=== PATIENT | female | born 1940 | race Caucasian/White ===

== ENCOUNTER 2023-09-04 11:08 | Inpatient (IN) | payer MEDICARE, SELFPAY ==
[2023-09-04] VITALS (41 sets, daily range): BP systolic 112–144; BP diastolic 40–71; PULSE 37–74; RESP 9–31; TEMP 36.6–36.7; O2SAT 82–98; BMI 29.5; BMI 24.9
--- NOTE | 2023-09-04 11:24 | ECG_ITS ---
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
--- NOTE | 2023-09-04 11:26 | XR_ITS ---
The [address] [address] Patient Name: MERRILL ARAGON MRN: [id number] date: 1940 Sex: F Assigned Patient Location: ER Current Patient Location: ER Accession/Order Number: [id number] Exam Date: 09/04/2023 11:51 Report Date: 09/04/2023 12:05 At the request of: SCHUYLER LOWERY Procedure: XR chest 1V EXAMINATION: XR chest 1V HISTORY: CHEST CONGESTION COMPARISON: 08/28/2022 TECHNIQUE: AP portable FINDINGS: LUNGS: No significant pulmonary parenchymal abnormalities. VASCULATURE: No increased pulmonary vasculature. PLEURA: No pneumothorax, effusion, or pleural thickening. Elevation of the right hemidiaphragm CARDIAC: Moderate cardiomegaly MEDIASTINUM: No visible mass or adenopathy. BONES: No fracture or visible bone lesion. OTHER: Negative. XR/XR chest 1V IMPRESSION: Clear lungs Cardiomegaly Elevated right hemidiaphragm Electronically authenticated by: CARMEN LOTT Date: 09/04/2023 12:05
[2023-09-04 12:18] LABS: Basophils Absolute Auto 0.1 10^3/uL (0.0-0.1); Basophils Percent Auto 0.4 % (0.2-2.0); Eosinophils Percent Auto 0.1 % (0.9-7.0); Hematocrit 41.9 % (36.0-48.0); Immature Granulocytes Abs Auto 0.05 10^3/uL (0.00-0.03); Immature Granulocytes Pct Auto 0.3 % (0.0-0.5); Lymphocytes Absolute Auto 2.4 10^3/uL (1.2-3.8); Lymphocytes Percent Auto 16.1 % (20.5-60.0); Mean Corpuscular Hemoglobin 26.6 pg (26.7-34.0); Mean Corpuscular Volume 85.9 fL (81.0-99.0); Mean Platelet Volume 10.3 fL (9.5-13.5); Monocytes Absolute Auto 0.9 10^3/uL (0.3-0.8); Monocytes Percent Auto 5.9 % (1.7-12.0); Neutrophils Absolute Auto 11.3 10^3/uL (1.4-6.5); Neutrophils Percent Auto 77.2 % (43.0-75.0); Platelet Count 128 10^3/uL (150-450); Red Blood Count 4.88 10^6/uL (4.20-5.40); Red Cell Distribution Width 14.7 % (11.0-15.0); White Blood Count 14.7 10^3/uL (4.0-11.0)
--- NOTE | 2023-09-04 12:20 | ECG_ITS ---
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
[2023-09-04] MEDS: 0.9 % SODIUM CHLORIDE 1,000 ML 999 ML IV (12:26)
[2023-09-04 12:32] LABS: Influenza Virus A Antigen Negative; Influenza Virus B Antigen Negative; Internal Control Within Normal Limits; SARS-CoV-2 Ag NEGATIVE (NEGATIVE)
[2023-09-04 12:42] LABS: Alanine Aminotransferase 68 U/L (14-59); Albumin Globulin Ratio 0.7; Alkaline Phosphatase 99 U/L (46-116); Anion Gap 16.7; Aspartate Amino Transferase 29 U/L (15-37); BUN Creatinine Ratio 24.5; Calcium 9.4 mg/dL (8.5-10.1); Carbon Dioxide 14.7 mmol/L (21.0-32.0); Chloride 98 mmol/L (98-107); Estimated GFR (African America 39 (>=60); Estimated GFR (Non-African Ame 32 (>=60); Globulin 4.1 g/dL; Glucose 299 mg/dL (74-106); Potassium 4.4 mmol/L (3.5-5.1); Sodium 125 mmol/L (136-145); Total Protein 7.1 g/dL (6.4-8.2)
[2023-09-04 12:44] LABS: Creatine Kinase 99 U/L (26-192); Troponin I High Sensitivity 22.6 pg/mL (4.0-51.3)
--- NOTE | 2023-09-04 14:08 | ED_ITS ---
HPI - General Adult General Chief complaint: Dizziness Stated complaint: DIZZINESS Time Seen by Provider: 09/04/23 11:33 Source: patient Mode of arrival: Wheelchair Limitations: no limitations History of Present Illness HPI narrative: Patient is a 83-year-old female who is presenting to the Emergency Room today with chief complaint of cough, lightheaded, dizziness, no vertigo. Patient has no chest pain, she has had coughing spells and has some mild shortness of breath. Patient does have a history of 3 cardiac stents, she was on Plavix in the past and she currently is not. Patient's flavor room worker is in [facility]. Patient's PCP is Dr. Butler. Patient had an episode this morning where she was disoriented, confused. Patient was not sure nothing get herself off of the couch to go to the restroom and she urinated herself. Patient was stumbling into the chase as well having some mild difficulty with gait, that has normalized. Patient says she feels much better now than she did last night. Patient was having coughing spells last evening and did not feel well. Over the past weekend she was around people that could have had COVID. Patient daughter at bedside. Patient is not having any abdominal pain, nausea vomiting. No significant bowel or bladder changes. . All systems are negative except as noted/marked. All systems reviewed and otherwise negative. . Nurses note and vital signs reviewed and patient is not hypoxic. General: The patient appears well and in no apparent distress. Patient is resting comfortably on cart. Patient is not toxic, lethargic, or listless Skin: Warm, dry, no pallor noted. There is no rash noted. No petechiae, purpura. Head: Normocephalic, atraumatic; No carotid bruits bilateral. Eye: Normal conjunctiva, no drainage, EOMI. PERRL Ears, Nose, Mouth, and Throat: oral mucosa is Slightly dry. Nares patent. Mouth without vesicles. Cardiovascular: Slow bradycardic Regular Rate and Rhythm, no murmur, gallop, rub Respiratory: Patient is in no distress, no accessory muscle use, lungs are clear to auscultation, no wheezing, rales or rhonchi Back: non-tender, no CVA tenderness bilaterally to percussion. No CT LS midline pain GI: soft, no tenderness to palpation, no masses appreciated. No rebound, guarding, or rigidity noted. No flank pain bilateral, No distention Musculoskeletal: Patient has full range of motion of all of the extremities, no motor, sensory, or focal neurological deficits Neurological: A&O x3, normal speech, NIH 0 Psychiatric: Cooperative Related Data Home Medications Medication Instructions Recorded Confirmed atorvastatin 80 mg tablet 80 mg PO DAILY 09/04/23 09/04/23 carvedilol 12.5 mg tablet 12.5 mg PO Q12H 09/04/23 09/04/23 cyproheptadine 4 mg tablet 2 mg PO .qhs 09/04/23 09/04/23 dapagliflozin propanediol 10 mg 10 mg PO DAILY 09/04/23 09/04/23 tablet (Farxiga) insulin glargine 100 unit/mL (3 10 unit subcut QPM 09/04/23 09/04/23 mL) subcutaneous pen (Lantus Solostar U-100 Insulin) insulin glargine 100 unit/mL 15 unit subcut QAM 09/04/23 09/04/23 subcutaneous solution (Lantus U-100 Insulin) Allergies Allergy/AdvReac Type Severity Reaction Status Date / Time iodine AdvReac Intermediate Verified 09/04/23 11:19 Sulfa (Sulfonamide AdvReac Intermediate Verified 09/04/23 11:19 Antibiotics) [facility] Medical History (Updated 09/04/23 @ 20:14 by Aubrey Nunez MD) Diabetes ?E11.9 - Type 2 diabetes mellitus without complications (ICD-10) Heart attack ?I21.9 - Acute myocardial infarction, unspecified (ICD-10) Uterine cancer ?C55 - Malignant neoplasm of uterus, part unspecified (ICD-10) Surgical History (Updated 09/04/23 @ 16:07 by Gena Islas) History of heart artery stent ?Z95.5 - Presence of coronary angioplasty implant and graft (ICD-10) Social History Smoking status: Never smoker Highest level of school completed/degree received: 11th grade Exam Constitutional Vital Signs, click to edit/add: Last Vital Signs Temp 98.0 F 09/04/23 16:04 Pulse 41 L 09/04/23 20:00 Resp 20 09/04/23 16:04 BP 141/68 09/04/23 16:04 Pulse Ox 94 L 09/04/23 16:04 O2 Del Method Nasal Cannula 09/04/23 16:04 O2 Flow Rate 2 09/04/23 16:04 Course Vital Signs Vital signs: Vital Signs Temperature 97.9 F 09/04/23 11:13 Pulse Rate 74 09/04/23 11:13 Respiratory Rate 18 09/04/23 11:13 Blood Pressure 118/70 09/04/23 11:13 Oxygen Delivery Method Room Air 09/04/23 11:13 Temperature 98.0 F 09/04/23 16:04 Pulse Rate 41 L 09/04/23 20:00 Respiratory Rate 20 09/04/23 16:04 Blood Pressure 141/68 09/04/23 16:04 Pulse Oximetry 94 L 09/04/23 16:04 Oxygen Delivery Method Nasal Cannula 09/04/23 16:04 Oxygen Delivery Flow Rate 2 09/04/23 16:04 Medical Decision Making MDM Narrative Medical decision making narrative: Patient told nursing staff that when she was going to get the mail in the past week she would intermittently become lightheaded, dizzy, sometimes short of breath and need to stop or catch herself before contiinue with activity. Patient may have been bradycardic intermittently for the past month, difficult to say. 1444 I spoke to the flavor room worker on-call for [facility], Dr. Davis. He agrees the patient can stay at [facility], corrective fluids and low sodium levels; And if patient remains relatively asymptomatic they can follow up with patient next week for discussion of pacemaker if needed. Patient wanted to stay at [facility] if possible. Patient has been to [facility] once and saw cardiology group once in [facility], she does not recall the name. Patient's flavor room worker is part of the [facility]. Patient's PCP is Dr. Butler. Has spoken to Dr. Harp, he agrees with admission to [facility] telemetry. We have given patient 2 L of IV fluid out replace sodium. Patient will remain on maintenance fluids. Patient sodium is 125. Patient CO2 is 14, patient BUN and CR are slightly elevated as well. 1520 Patient was having chest tightness, a 2nd EKG was done that showed no significant findings when compared to the 1st EKG. Patient has been given 2 L of IV fluid on maintenance fluids. Patient's heart rate has improved into the 40s and low 50s. Despite having low heart rate, patient is not significantly symptomatic in the Emergency Room with bradycardia. Patient is stable to be admitted to [facility]. Patient, son and daughter at bedside are aware of this and agree. Patient is aware that she may need a pacemaker in the future if bradycardia continues and she does have intermittent symptoms at home. Critical care time 45 minutes exclusive from separate billable procedures that were performed. The following was considered in the determination of critical care but not limited to the level of medical decision making, intensive cardiac and/or respiratory monitoring, frequent vital sign monitoring, evaluation of laboratory studies, evaluation of radiographic studies, oxygen monitoring, and constant monitoring and speaking to family at bedside Lab Data Lab results reviewed: Yes I reviewed the patient's lab results Labs: Lab Results 09/04/23 09/04/23 09/04/23 Range/Units 11:29 11:29 12:12 WBC 14.7 H (4.0-11.0) 10^3/uL RBC 4.88 (4.20-5.40) 10^6/uL Hgb 13.0 (12.0-16.0) g/dL Hct 41.9 (36.0-48.0) % MCV 85.9 (81.0-99.0) fL MCH 26.6 L (26.7-34.0) pg MCHC 31.0 (29.9-35.2) g/dL RDW 14.7 (11.0-15.0) % Plt Count 128 L (150-450) 10^3/uL MPV 10.3 (9.5-13.5) fL Neut % (Auto) 77.2 H (43.0-75.0) % Lymph % (Auto) 16.1 L (20.5-60.0) % [place] % (Auto) 5.9 (1.7-12.0) % Eos % (Auto) 0.1 L (0.9-7.0) % Baso % (Auto) 0.4 (0.2-2.0) % Neut # (Auto) 11.3 H (1.4-6.5) 10^3/uL Lymph # (Auto) 2.4 (1.2-3.8) 10^3/uL [place] # (Auto) 0.9 H (0.3-0.8) 10^3/uL Eos # (Auto) 0.0 (0.0-0.7) 10^3/uL Baso # (Auto) 0.1 (0.0-0.1) 10^3/uL Abs Immat Gran (auto) 0.05 H (0.00-0.03) 10^3/uL Imm/Tot Granulo (auto) 0.3 (0.0-0.5) % Sodium 125 L (136-145) mmol/L Potassium 4.4 (3.5-5.1) mmol/L Chloride 98 (98-107) mmol/L Carbon Dioxide 14.7 L (21.0-32.0) mmol/L Anion Gap 16.7 BUN 38.0 H (7.0-18.0) mg/dL Creatinine 1.55 H (0.55-1.02) mg/dL Est GFR ( Amer) 39 L (>=60) Est GFR (Non-Af Amer) 32 L (>=60) BUN/Creatinine Ratio 24.5 Glucose 299 H (74-106) mg/dL Calcium 9.4 (8.5-10.1) mg/dL Total Bilirubin 1.0 (0.2-1.0) mg/dL AST 29 (15-37) U/L ALT 68 H (14-59) U/L Alkaline Phosphatase 99 (46-116) U/L Total Creatine Kinase 99 (26-192) U/L Troponin I High Sens 22.6 (4.0-51.3) pg/mL Total Protein 7.1 (6.4-8.2) g/dL Albumin 3.0 L (3.4-5.0) g/dL Globulin 4.1 g/dL Albumin/Globulin Ratio 0.7 Adenovirus (PCR) Not detected (NOT DETECTE) C. pneumoniae DNA (PCR) Not detected (NOT DETECTE) Coronavirus Type OC43 Not detected (NOT DETECTE) Coronavirus Type HKU1 Not detected (NOT DETECTE) Coronavirus Type 229E Not detected (NOT DETECTE) SARS-CoV-2 (PCR) Negative Not detected (NEGATIVE) Coronavirus Type NL63 Not detected (NOT DETECTE) Human Metapneumovir PCR Not detected (NOT DETECTE) Influenza Type A Ag Negative Influenza Type B Ag Negative M. pneumoniae (PCR) Not detected (NOT DETECTE) Parainfluenza PCR Not detected (NOT DETECTE) Parainfluenza 2 (PCR) Not detected (NOT DETECTE) Parainfluenza 3 (PCR) Not detected (NOT DETECTE) Parainfluenza 4 (PCR) Not detected (NOT DETECTE) RSV (RT-PCR) Detected A* (NOT DETECTE) Entero/Rhino (PCR) Not detected (NOT DETECTE) Bordetella pertussis (PCR) Not detected (NOT DETECTE) B parapertussis DNA PCR Not detected (NOT DETECTE) Influenza Type A (PCR) Not detected (NOT DETECTE) Influenza Type B (PCR) Not detected (NOT DETECTE) ECG Data Attestation: I personally reviewed and interpreted this ECG as follows: (EKG interpretation. Sinus bradycardia at 37 beats a minute. Normal axis deviation. T wave inversion ddiffusely.) Interpretation: EKG #1. Sinus bradycardia of 37 beats a minute. T-wave inversion noted in the inferior leads, also on the lateral leads as well. QTC of 371. VA interval of 270, first-degree AV block. EKG reading right bundle-branch block as well.. EKG #2. Sinus bradycardia of 42 beats a minute. Patient remains sinus bradycardia. T-wave inversion in V2, V3, V4. No T-wave inversion in V5, V6 which was present on the 1st EKG. VA interval of 264, first-degree AV block. Right bundle-branch block noted. No acute ST elevation. Discharge Plan Discharge Chief Complaint: Dizziness Clinical Impression: URI (upper respiratory infection), Bradycardia, Hyponatremia, Metabolic acidosis, Dehydration Patient Disposition: Admitted As Inpatient Condition: Serious Discharge Date/Time: 09/04/23 15:50
[2023-09-04] MEDS: 0.9 % SODIUM CHLORIDE 1,000 ML 1000 ML IV (14:30)
--- NOTE | 2023-09-04 15:28 | ECG_ITS ---
The [facility] Test Date: 2023-09-04 Pat Name: MERRILL ARAGON Department: Room: 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
[2023-09-04 16:48] LABS: Glucometer 262 mg/dL (74-106)
[2023-09-04] MEDS: 0.9 % SODIUM CHLORIDE 1,000 ML 100 ML IV (16:55)
[2023-09-04] MEDS: INSULIN ASPART 300 UNIT/3 ML PEN SUBQ ×2 (17:44→22:43)
[2023-09-04 17:51] LABS: Adenovirus NOT DETECTED (NOT DETECTE); Bordetella parapertussis NOT DETECTED (NOT DETECTE); Coronavirus 229E NOT DETECTED (NOT DETECTE); Coronavirus HKU1 NOT DETECTED (NOT DETECTE); Coronavirus NL63 NOT DETECTED (NOT DETECTE); Coronavirus OC43 NOT DETECTED (NOT DETECTE); Human Metapneumovirus NOT DETECTED (NOT DETECTE); Human Rhinovirus/Enterovirus NOT DETECTED (NOT DETECTE); Influenza A NOT DETECTED (NOT DETECTE); Influenza B NOT DETECTED (NOT DETECTE); Mycoplasma pneumoniae NOT DETECTED (NOT DETECTE); Parainfluenza Virus 1 NOT DETECTED (NOT DETECTE); Parainfluenza Virus 2 NOT DETECTED (NOT DETECTE); Parainfluenza Virus 3 NOT DETECTED (NOT DETECTE); Parainfluenza Virus 4 NOT DETECTED (NOT DETECTE); SARS-CoV-2 NOT DETECTED (NOT DETECTE)
[2023-09-04 18:40] LABS: Respiratory Syncytial Virus DETECTED (NOT DETECTE)
[2023-09-04 20:03] LABS: Bilirubin Urine NEGATIVE (NEGATIVE); Blood Urine NEGATIVE (NEGATIVE); Clarity Urine CLEAR (CLEAR); Color Urine YELLOW (YELLOW); Glucose Urine UA >=1000 mg/dL (NEGATIVE); Ketones Urine TRACE mg/dL (NEGATIVE); Leukocyte Esterase Urine NEGATIVE (NEGATIVE); Nitrite Urine NEGATIVE (NEGATIVE); Protein Urine NEGATIVE (NEG/TRACE); Urobilinogen Urine 0.2 EU/dL (0.2-1.0); pH Urine 5.5 (5.0-9.0)
[2023-09-04 20:05] LABS: Urine Microscopic Indicated NO
[2023-09-04 20:39] LABS: Glucometer 209 mg/dL (74-106)
[2023-09-04] MEDS: CYPROHEPTADINE HCL 4 MG TABLET 2 MG PO (22:42)
[2023-09-04] MEDS: INSULIN DETEMIR 300 UNIT/3 ML INSULN.PEN 10 UNIT SUBQ (22:42)
[2023-09-05] VITALS (73 sets, daily range): BP systolic 109–171; BP diastolic 57–112; PULSE 39–89; RESP 0–27; TEMP 36.4–36.8; O2SAT 92–100
[2023-09-05] MEDS: 0.9 % SODIUM CHLORIDE 1,000 ML 100 ML IV ×2 (06:38→15:01)
[2023-09-05 07:41] LABS: Glucometer 128 mg/dL (74-106)
[2023-09-05 07:50] LABS: Anion Gap 14.5; BUN Creatinine Ratio 28.5; Calcium 9.1 mg/dL (8.5-10.1); Carbon Dioxide 18.5 mmol/L (21.0-32.0); Chloride 107 mmol/L (98-107); Estimated GFR (African America 50 (>=60); Estimated GFR (Non-African Ame 42 (>=60); Glucose 147 mg/dL (74-106); Sodium 136 mmol/L (136-145)
[2023-09-05] MEDS: CANAGLIFLOZIN 100 MG TABLET 300 MG PO (08:25)
[2023-09-05] MEDS: ATORVASTATIN CALCIUM 40 MG TABLET 80 MG PO (08:26)
[2023-09-05] MEDS: INSULIN DETEMIR 300 UNIT/3 ML INSULN.PEN 15 UNIT SUBQ (08:26)
[2023-09-05] MEDS: ACETAMINOPHEN 500 MG TABLET 1000 MG PO (08:26)
[2023-09-05 08:41] LABS: Basophils Percent Auto 0.5 % (0.2-2.0); Eosinophils Absolute Auto 0.1 10^3/uL (0.0-0.7); Eosinophils Percent Auto 1.1 % (0.9-7.0); Hematocrit 37.3 % (36.0-48.0); Hemoglobin 11.3 g/dL (12.0-16.0); Immature Granulocytes Abs Auto 0.02 10^3/uL (0.00-0.03); Immature Granulocytes Pct Auto 0.2 % (0.0-0.5); Lymphocytes Absolute Auto 2.1 10^3/uL (1.2-3.8); Lymphocytes Percent Auto 25.7 % (20.5-60.0); Mean Corpuscular HGB Conc 30.3 g/dL (29.9-35.2); Mean Corpuscular Hemoglobin 26.6 pg (26.7-34.0); Mean Corpuscular Volume 87.8 fL (81.0-99.0); Mean Platelet Volume 10.4 fL (9.5-13.5); Monocytes Absolute Auto 0.7 10^3/uL (0.3-0.8); Neutrophils Absolute Auto 5.4 10^3/uL (1.4-6.5); Neutrophils Percent Auto 64.5 % (43.0-75.0); Platelet Count 77 10^3/uL (150-450); Red Blood Count 4.25 10^6/uL (4.20-5.40); Red Cell Distribution Width 15.1 % (11.0-15.0); White Blood Count 8.3 10^3/uL (4.0-11.0)
--- NOTE | 2023-09-05 09:48 | ECG_ITS ---
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1940 Requested By: MARIAM KIRBY Order Number: [id number] Reading MD: MIKALA STAHL Measurements Intervals [place] Rate: 39 P: TN: QRS: 98 QRSD: 141 T: -67 QT: 467 QTc: 376 Interpretive Statements SINUS BRADYCARDIA WITH 2ND DEGREE AV BLOCK, MOBITZ TYPE II RIGHT BUNDLE BRANCH BLOCK [120+ ms QRS DURATION, UPRIGHT V1, 40+ ms S IN I/aVL/V4/V5/V6] ANTEROSEPTAL MYOCARDIAL INFARCTION [40+ ms Q WAVE IN V1-V4], OF INDETERMINATE AGE MODERATE T-WAVE ABNORMALITY, CONSIDER LATERAL ISCHEMIA [-0.1+ mV T WAVE IN I/aVL/V5/V6] Compared to ECG 09/04/2023 15:29:14 Electronically Signed On 09-06-2023 6:51:27 EST by MIKALA STAHL
--- NOTE | 2023-09-05 09:48 | P.PN_ITS ---
Exam Constitutional Vital Signs, click to edit/add: Last Vital Signs Temp 98.1 F 09/05/23 05:36 Pulse 65 09/05/23 06:00 Resp 20 09/05/23 05:36 BP 109/62 09/05/23 05:36 Pulse Ox 95 09/05/23 05:36 O2 Del Method Nasal Cannula 09/05/23 05:36 O2 Flow Rate 3 09/05/23 05:36 Progress Note: Objective Labs Labs: Short CBC 09/04/23 09/05/23 Range/Units 12:12 06:30 WBC 14.7 H 8.3 (4.0-11.0) 10^3/uL Hgb 13.0 11.3 L (12.0-16.0) g/dL Hct 41.9 37.3 (36.0-48.0) % Plt Count 128 L 77 L (150-450) 10^3/uL BMP 09/04/23 09/05/23 12:12 06:30 Sodium 125 L 136 Potassium 4.4 4.0 Chloride 98 107 Carbon Dioxide 14.7 L 18.5 L BUN 38.0 H 35.0 H Creatinine 1.55 H 1.23 H Glucose 299 H 147 H Calcium 9.4 9.1 Cardiac Enzymes 09/04/23 Range/Units 12:12 Total Creatine Kinase 99 (26-192) U/L Liver Function 09/04/23 Range/Units 12:12 Total Bilirubin 1.0 (0.2-1.0) mg/dL AST 29 (15-37) U/L ALT 68 H (14-59) U/L Alkaline Phosphatase 99 (46-116) U/L Albumin 3.0 L (3.4-5.0) g/dL Urine 09/04/23 Range/Units 19:47 Urine Color Yellow (YELLOW) Urine Clarity Clear (CLEAR) Urine pH 5.5 (5.0-9.0) Ur Specific [place] 1.010 (1.005-1.025) Urine Protein Negative (NEG/TRACE) mg/dL Urine Glucose (UA) >=1000 A (NEGATIVE) mg/dL
[2023-09-05 10:56] LABS: Glucometer 269 mg/dL (74-106)
[2023-09-05 12:44] LABS: Glucometer 195 mg/dL (74-106)
[2023-09-05] MEDS: INSULIN ASPART 300 UNIT/3 ML PEN SUBQ (12:51)
[2023-09-05 13:21] LABS: Troponin I High Sensitivity 44.2 pg/mL (4.0-51.3)
[2023-09-05 13:28] LABS: Free T3 2.72 pg/mL (2.18-3.98); Magnesium 1.8 mg/dL (1.8-2.4); Thyroid Stimulating Hormone 0.832 uIU/mL (0.358-3.740)
[2023-09-05 13:39] LABS: Troponin I High Sensitivity 53.3 pg/mL (4.0-51.3)
--- NOTE | 2023-09-05 13:44 | P.HP_ITS ---
H&P: HPI History of Present Illness Chief complaint: DIZZINESS Narrative: Patient presented to the emergency with increasing lightheadedness. And have significant bradycardia. All also RSV positive. Patient was admitted for workup and treatment of same Review of Systems ROS Status of ROS 10 or more systems reviewed and unremark able except as noted in history and below [facility] Medical History (Updated 09/04/23 @ 20:14 by Aubrey Nunez MD) Diabetes ?E11.9 - Type 2 diabetes mellitus without complications (ICD-10) Heart attack ?I21.9 - Acute myocardial infarction, unspecified (ICD-10) Uterine cancer ?C55 - Malignant neoplasm of uterus, part unspecified (ICD-10) Surgical History (Updated 09/04/23 @ 16:07 by Gena Islas) History of heart artery stent ?Z95.5 - Presence of coronary angioplasty implant and graft (ICD-10) Social History Smoking status: Never smoker Highest level of school completed/degree received: 11th grade Meds Home Medications and Allergies Home Medications Medication Instructions Recorded Confirmed Type atorvastatin 80 mg tablet 80 mg PO DAILY 09/04/23 09/04/23 History carvedilol 12.5 mg tablet 12.5 mg PO Q12H 09/04/23 09/04/23 History cyproheptadine 4 mg tablet 2 mg PO .qhs 09/04/23 09/04/23 History dapagliflozin propanediol 10 mg 10 mg PO DAILY 09/04/23 09/04/23 History tablet (Farxiga) insulin glargine 100 unit/mL (3 10 unit subcut QPM 09/04/23 09/04/23 History mL) subcutaneous pen (Lantus Solostar U-100 Insulin) insulin glargine 100 unit/mL 15 unit subcut QAM 09/04/23 09/04/23 History subcutaneous solution (Lantus U-100 Insulin) Allergies Allergy/AdvReac Type Severity Reaction Status Date / Time iodine AdvReac Intermediate Verified 09/04/23 11:19 Sulfa (Sulfonamide AdvReac Intermediate Verified 09/04/23 11:19 Antibiotics) Exam Constitutional Vital Signs, click to edit/add: Last Vital Signs Temp 97.6 F 09/05/23 10:44 Pulse 61 09/05/23 12:17 Resp 20 09/05/23 12:17 BP 109/62 09/05/23 10:44 Pulse Ox 94 L 09/05/23 10:44 O2 Del Method Nasal Cannula 09/05/23 10:44 O2 Flow Rate 3 09/05/23 10:44 HENPR Common normals: normocephalic and head/scalp atraumatic Respiratory Common normals: normal respiratory effort and no retractions Cardio Common normals: regular rhythm; irregular rate Rate: bradycardic Results Labs Labs: Short CBC 09/05/23 Range/Units 06:30 WBC 8.3 (4.0-11.0) 10^3/uL Hgb 11.3 L (12.0-16.0) g/dL Hct 37.3 (36.0-48.0) % Plt Count 77 L (150-450) 10^3/uL BMP 09/05/23 06:30 Sodium 136 Potassium 4.0 Chloride 107 Carbon Dioxide 18.5 L BUN 35.0 H Creatinine 1.23 H Glucose 147 H Calcium 9.1 Urine 09/04/23 Range/Units 19:47 Urine Color Yellow (YELLOW) Urine Clarity Clear (CLEAR) Urine pH 5.5 (5.0-9.0) Ur Specific [place] 1.010 (1.005-1.025) Urine Protein Negative (NEG/TRACE) mg/dL Urine Glucose (UA) >=1000 A (NEGATIVE) mg/dL Assessment and Plan Assessment and Plan (1) Bradycardia: Plan Increasing weakness secondary to bradycardia, held her Coreg yesterday. 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 Upper respiratory illness secondary to RSV-so far patient's cough is improving. Moderate protein calorie malnutrition-diet supplement IDDM-insulin sliding scale Thrombocytopenia-monitor daily Gbitducesztl-osgpth-pw on labs Severity of illness-we will maintain patient inpatient status. Discussed with cardiology about possible transfer for Mobitz 2 block
[2023-09-05] MEDS: ASPIRIN 325 MG TABLET PO (15:13)
[2023-09-05 16:03] LABS: SARS-CoV-2 NAA NOT DETECTED (NOT DETECTE)
[2023-09-05 16:43] LABS: Glucometer 142 mg/dL (74-106)
[2023-09-05] MEDS: CYPROHEPTADINE HCL 4 MG TABLET 2 MG PO (21:47)
[2023-09-05 21:52] LABS: Glucometer 121 mg/dL (74-106)
[2023-09-05] MEDS: INSULIN DETEMIR 300 UNIT/3 ML INSULN.PEN 10 UNIT SUBQ (21:59)
[2023-09-06] VITALS (30 sets, daily range): BP systolic 133–176; BP diastolic 57–109; PULSE 42–96; RESP 16–34; TEMP 36.6; O2SAT 93–99
[2023-09-06 06:15] LABS: Basophils Percent Auto 0.5 % (0.2-2.0); Eosinophils Absolute Auto 0.2 10^3/uL (0.0-0.7); Eosinophils Percent Auto 3.1 % (0.9-7.0); Hematocrit 37.7 % (36.0-48.0); Hemoglobin 11.5 g/dL (12.0-16.0); Immature Granulocytes Abs Auto 0.02 10^3/uL (0.00-0.03); Immature Granulocytes Pct Auto 0.3 % (0.0-0.5); Lymphocytes Absolute Auto 2.2 10^3/uL (1.2-3.8); Lymphocytes Percent Auto 35.6 % (20.5-60.0); Mean Corpuscular HGB Conc 30.5 g/dL (29.9-35.2); Mean Corpuscular Hemoglobin 26.2 pg (26.7-34.0); Mean Corpuscular Volume 85.9 fL (81.0-99.0); Mean Platelet Volume 10.9 fL (9.5-13.5); Monocytes Absolute Auto 0.6 10^3/uL (0.3-0.8); Monocytes Percent Auto 8.9 % (1.7-12.0); Neutrophils Absolute Auto 3.2 10^3/uL (1.4-6.5); Neutrophils Percent Auto 51.6 % (43.0-75.0); Platelet Count 152 10^3/uL (150-450); Red Blood Count 4.39 10^6/uL (4.20-5.40); Red Cell Distribution Width 14.9 % (11.0-15.0); White Blood Count 6.2 10^3/uL (4.0-11.0)
[2023-09-06 06:34] LABS: Anion Gap 11.1; BUN Creatinine Ratio 22.3; Calcium 9.4 mg/dL (8.5-10.1); Carbon Dioxide 23.3 mmol/L (21.0-32.0); Chloride 110 mmol/L (98-107); Estimated GFR (African America 51 (>=60); Estimated GFR (Non-African Ame 42 (>=60); Glucose 75 mg/dL (74-106); Potassium 4.4 mmol/L (3.5-5.1); Sodium 140 mmol/L (136-145)
[2023-09-06 06:48] LABS: Troponin I High Sensitivity 28.4 pg/mL (4.0-51.3)
[2023-09-06] MEDS: ATORVASTATIN CALCIUM 40 MG TABLET 80 MG PO (09:05)
[2023-09-06] MEDS: CANAGLIFLOZIN 100 MG TABLET 300 MG PO (09:05)
[2023-09-06] MEDS: INSULIN DETEMIR 300 UNIT/3 ML INSULN.PEN 15 UNIT SUBQ (09:06)
--- NOTE | 2023-09-06 09:21 | XR_ITS ---
The [address] [address] Patient Name: MERRILL ARAGON MRN: [id number] date: 1940 Sex: F Assigned Patient Location: ICU Current Patient Location: ICU Accession/Order Number: [id number] Exam Date: 09/06/2023 09:30 Report Date: 09/06/2023 10:14 At the request of: MIKALA STAHL Procedure: XR chest 2V EXAM: XR chest 2V HISTORY: CHF COMPARISON: 09/04/2023 FINDINGS: The heart, mediastinum, pulmonary vasculature, and bony thorax demonstrate no discrete acute abnormality. There is mild blunting of the costophrenic angles. There is no evidence of an infiltrate or pneumothorax. There is mild prominence of the lung markings. XR/XR chest 2V IMPRESSION: Mild blunting of the costophrenic angles. Electronically authenticated by: JACINTO PIERCE Date: 09/06/2023 10:14
--- NOTE | 2023-09-06 09:23 | P.PN_ITS ---
Progress Note: Subjective Subjective Interval history: Patient some difficulty breathing with ambulation but otherwise she states her breathing feels better when she is at rest Exam Constitutional Vital Signs, click to edit/add: Last Vital Signs Temp 97.8 F 09/06/23 06:00 Pulse 65 09/06/23 07:59 Resp 22 09/06/23 07:59 BP 157/73 H 09/06/23 06:00 Pulse Ox 97 09/06/23 07:59 O2 Del Method Nasal Cannula 09/06/23 06:00 O2 Flow Rate 2 09/06/23 06:00 HENMT Common normals: normocephalic and head/scalp atraumatic Respiratory Common normals: normal respiratory effort and no retractions Auscultation: rales Cardio Common normals: regular rhythm; irregular rate Rate: bradycardic Extremity Common normals: abnormal to inspection (Trace edema bilaterally) Progress Note: Objective Labs Labs: Short CBC 09/06/23 Range/Units 04:02 WBC 6.2 (4.0-11.0) 10^3/uL Hgb 11.5 L (12.0-16.0) g/dL Hct 37.7 (36.0-48.0) % Plt Count 152 (150-450) 10^3/uL BMP 09/06/23 04:02 Sodium 140 Potassium 4.4 Chloride 110 H Carbon Dioxide 23.3 BUN 27.0 H Creatinine 1.21 H Glucose 75 Calcium 9.4 Progress Note: A&P Assessment and Plan (1) Bradycardia: Plan Increasing weakness secondary to bradycardia, held her Coreg yesterday. Mobitz 2 heart block. Discussed with cardiology about transfer. Bradycardia somewhat better upper 50s low 60s Acute NSTEMI (ECG without acute change other than the bradycardia and block, initial troponin with normal, repeated 16 hours later was elevated. No available blood sample in between. ) With acute congestive heart failure- combined, BNP improved today. Elevated previous day. Will give 1 dose of Lasix as she still has peripheral edema and rales in bases. Plan is for transfer for further evaluation from a cardiac standpoint Upper respiratory illness secondary to RSV-so far patient's cough is improving. Moderate protein calorie malnutrition-diet supplement IDDM-insulin sliding scale Thrombocytopenia-monitor daily Mumhafqmdeni-wygkcr-cs on labs Severity of illness-we will maintain patient inpatient status. Discussed with cardiology about possible transfer for Mobitz 2 block ?
[2023-09-06] MEDS: LISINOPRIL 10 MG TABLET PO (10:54)
[2023-09-06] MEDS: FUROSEMIDE 40 MG/4 ML VIAL IVP (10:56)
[2023-09-06] MEDS: INSULIN ASPART 300 UNIT/3 ML PEN SUBQ (11:00)
[2023-09-06 11:08] LABS: Glucometer 195 mg/dL (74-106)
[2023-09-06 17:02] LABS: Glucometer 155 mg/dL (74-106)
[2023-09-06] MEDS: CYPROHEPTADINE HCL 4 MG TABLET 2 MG PO (21:21)
[2023-09-06] MEDS: INSULIN DETEMIR 300 UNIT/3 ML INSULN.PEN 10 UNIT SUBQ (21:25)
[2023-09-06 21:26] LABS: Glucometer 187 mg/dL (74-106)
[2023-09-07] VITALS (15 sets, daily range): BP systolic 138–144; BP diastolic 57–76; PULSE 42–77; RESP 16–21; TEMP 36.6–36.7; O2SAT 96
--- NOTE | 2023-09-07 04:05 | RESP.RT ---
decreased down to 1L
[2023-09-07 06:33] LABS: Basophils Percent Auto 0.4 % (0.2-2.0); Eosinophils Absolute Auto 0.2 10^3/uL (0.0-0.7); Eosinophils Percent Auto 2.8 % (0.9-7.0); Hematocrit 38.8 % (36.0-48.0); Immature Granulocytes Abs Auto 0.03 10^3/uL (0.00-0.03); Immature Granulocytes Pct Auto 0.4 % (0.0-0.5); Lymphocytes Absolute Auto 2.8 10^3/uL (1.2-3.8); Lymphocytes Percent Auto 38.7 % (20.5-60.0); Mean Corpuscular HGB Conc 30.9 g/dL (29.9-35.2); Mean Corpuscular Volume 84.2 fL (81.0-99.0); Monocytes Absolute Auto 0.5 10^3/uL (0.3-0.8); Monocytes Percent Auto 7.3 % (1.7-12.0); Neutrophils Absolute Auto 3.6 10^3/uL (1.4-6.5); Neutrophils Percent Auto 50.4 % (43.0-75.0); Platelet Count 195 10^3/uL (150-450); Red Blood Count 4.61 10^6/uL (4.20-5.40); Red Cell Distribution Width 14.7 % (11.0-15.0); White Blood Count 7.1 10^3/uL (4.0-11.0)
[2023-09-07 06:44] LABS: Anion Gap 12.7; BUN Creatinine Ratio 22.8; Calcium 9.6 mg/dL (8.5-10.1); Carbon Dioxide 23.7 mmol/L (21.0-32.0); Chloride 106 mmol/L (98-107); Estimated GFR (African America >60 (>=60); Estimated GFR (Non-African Ame 58 (>=60); Glucose 59 mg/dL (74-106); Potassium 3.4 mmol/L (3.5-5.1); Sodium 139 mmol/L (136-145)
[2023-09-07 07:03] LABS: Troponin I High Sensitivity 17.6 pg/mL (4.0-51.3)
--- NOTE | 2023-09-07 07:54 | P.PN_ITS ---
Progress Note: Subjective Subjective Interval history: Patient some difficulty breathing with ambulation but otherwise she states her breathing feels better when she is at rest Exam Constitutional Vital Signs, click to edit/add: Last Vital Signs Temp 98.0 F 09/07/23 07:00 Pulse 72 09/07/23 07:35 Resp 16 09/07/23 07:14 BP 144/76 H 09/07/23 07:14 Pulse Ox 96 09/07/23 07:12 O2 Del Method Room Air 09/07/23 07:12 O2 Flow Rate 2 09/07/23 04:05 Progress Note: Objective Labs Labs: Short CBC 09/07/23 Range/Units 04:12 WBC 7.1 (4.0-11.0) 10^3/uL Hgb 12.0 (12.0-16.0) g/dL Hct 38.8 (36.0-48.0) % Plt Count 195 (150-450) 10^3/uL BMP 09/07/23 04:12 Sodium 139 Potassium 3.4 L Chloride 106 Carbon Dioxide 23.7 BUN 21.0 H Creatinine 0.92 Glucose 59 L Calcium 9.6 Progress Note: A&P Assessment and Plan (1) Bradycardia: Plan Increasing weakness secondary to bradycardia, held her Coreg yesterday. Juarezitz 2 heart block. Discussed with cardiology about transfer. Bradycardia somewhat better upper 50s low 60s Acute NSTEMI (ECG without acute change other than the bradycardia and block, initial troponin with normal, repeated 16 hours later was elevated. No available blood sample in between. ) With acute congestive heart failure- combined, BNP improved today. Elevated previous day. Will give 1 dose of Lasix as she still has peripheral edema and rales in bases. Plan is for transfer for further evaluation from a cardiac standpoint Upper respiratory illness secondary to RSV-so far patient's cough is improving. Moderate protein calorie malnutrition-diet supplement IDDM-insulin sliding scale Thrombocytopenia-monitor daily Timztvqtixcm-dvaqmd-xz on labs Severity of illness-we will maintain patient inpatient status. Discussed with cardiology about possible transfer for Mobitz 2 block ?
[2023-09-07] MEDS: LEVOFLOXACIN IN DEXTROSE 5 % 500 MG/100 ML PIGGYBACK 100 MG IV (08:33)
[2023-09-07] MEDS: ATORVASTATIN CALCIUM 40 MG TABLET 80 MG PO (08:33)
[2023-09-07] MEDS: CANAGLIFLOZIN 100 MG TABLET 300 MG PO (08:33)
[2023-09-07] MEDS: LISINOPRIL 10 MG TABLET PO (08:34)
[2023-09-07] MEDS: POTASSIUM CHLORIDE 10 MEQ ER TABLET 20 MEQ PO (08:34)
[2023-09-07] MEDS: INSULIN DETEMIR 300 UNIT/3 ML INSULN.PEN 15 UNIT SUBQ (08:35)
--- NOTE | 2023-09-07 09:00 | CM.NOTE ---
Rounds made with Dr. Martinez. [facility] for [facility].
--- NOTE | 2023-09-07 09:33 | P.DS_ITS ---
DS: Providers Provider Date of admission: 09/04/23 15:50 Primary care physician: MARIAM KIRBY Consults: 09/04/23 16:04 Physical Therapy Eval and Treat Routine Reason for consultation: Unsteady gait 09/07/23 07:59 Consult to Cardiology Routine Reason for consultation: if not getting transferred - consult cardiology that is here DS: Diagnosis Discharge Diagnosis (1) Bradycardia: Plan Increasing weakness secondary to bradycardia, Mobitz 2 heart block Acute NSTEMI (ECG without acute change other than the bradycardia and block, initial troponin with normal, repeated 16 hours later was elevated. No available blood sample in between. ) With acute congestive heart failure-[facility] ed, BNP improved today. Elevated previous day. Upper respiratory illness secondary to RSV Moderate protein calorie malnutrition IDDM Thrombocytopenia Hyponatremia Hypokalemmia DS: Summary Hospital Course Hospital Course: admiitted with bradycardia, held beta reginaldo - no improvment - recheced trponin and is positiv , soposilb ein wl mi leading tto jeannine =dardu=ia with mobitz II block. Pt stable since admission, discussed sith Dr gerardo - recommending transfer for pacer and further eval. No further dizines since admission. Time Spent with Patient Time attestation: Total time spent providing and/or coordinating discharge services: Exam Constitutional Vital Signs, click to edit/add: Last Vital Signs Temp 98.0 F 09/07/23 07:00 Pulse 48 L 09/07/23 09:28 Resp 16 09/07/23 07:14 BP 144/76 H 09/07/23 07:14 Pulse Ox 96 09/07/23 07:12 O2 Del Method Room Air 09/07/23 07:12 O2 Flow Rate 2 09/07/23 04:05 HENMT Common normals: normocephalic and head/scalp atraumatic Respiratory Common normals: normal respiratory effort and no retractions Auscultation: rales Cardio Common normals: regular rhythm; irregular rate Rate: bradycardic Extremity Common normals: abnormal to inspection (Trace edema bilaterally) DS: Data Data Completed and Pending Labs on day of discharge: Labs from last 24 hours 09/07/23 09/06/23 09/06/23 04:12 21:24 17:01 WBC 7.1 RBC 4.61 Hgb 12.0 Hct 38.8 MCV 84.2 MCH 26.0 L MCHC 30.9 RDW 14.7 Plt Count 195 MPV 11.0 Neut % (Auto) 50.4 Lymph % (Auto) 38.7 [place] % (Auto) 7.3 Eos % (Auto) 2.8 Baso % (Auto) 0.4 Neut # (Auto) 3.6 Lymph # (Auto) 2.8 [place] # (Auto) 0.5 Eos # (Auto) 0.2 Baso # (Auto) 0.0 Abs Immat Gran (auto) 0.03 Imm/Tot Granulo (auto) 0.4 Sodium 139 Potassium 3.4 L Chloride 106 Carbon Dioxide 23.7 Anion Gap 12.7 BUN 21.0 H Creatinine 0.92 Est GFR ( Amer) >60 Est GFR (Non-Af Amer) 58 L BUN/Creatinine Ratio 22.8 Glucose 59 L Calcium 9.6 Troponin I High Sens 17.6 NT-Pro-B Natriuret Pep 1047.0 POC Glucose 187 H 155 H 09/06/23 10:57 WBC RBC Hgb Hct MCV MCH MCHC RDW Plt Count MPV Neut % (Auto) Lymph % (Auto) [place] % (Auto) Eos % (Auto) Baso % (Auto) Neut # (Auto) Lymph # (Auto) [place] # (Auto) Eos # (Auto) Baso # (Auto) Abs Immat Gran (auto) Imm/Tot Granulo (auto) Sodium Potassium Chloride Carbon Dioxide Anion Gap BUN Creatinine Est GFR ( Amer) Est GFR (Non-Af Amer) BUN/Creatinine Ratio Glucose Calcium Troponin I High Sens NT-Pro-B Natriuret Pep POC Glucose 195 H Discharge Plan Discharge Disposition: Xfer Acute Care Hospital Condition: Serious Discharge Medications: No Action atorvastatin 80 mg tablet 80 mg PO DAILY carvedilol 12.5 mg tablet 12.5 mg PO Q12H Farxiga 10 mg tablet 10 mg PO DAILY cyproheptadine 4 mg tablet 2 mg PO .qhs insulin glargine [Lantus U-100 Insulin] 100 unit/mL solution 15 unit subcut QAM Patient Comments: 15 units in the AM and 10 units PM insulin glargine [Lantus Solostar U-100 Insulin] 100 unit/mL (3 mL) insulin pen 10 unit subcut QPM
--- OUTSIDE RECORDS SUMMARY | 2023-09-07 10:33 | XMS_ITS | CCD ---
Author Name Unknown Address [address] [place] [address] Organization [facility] Care Team Providers Care Vessel Slag Worker Name Role Phone RODRICK BUTLER Primary Care Unavailable RODRICK BUTLER Referring Unavailable SILVINA BREEN Admitting Unavailable SILVINA BREEN Attending Unavailable RODRICK BUTLER Primary Care Unavailable RODRICK BUTLER Referring Unavailable SILVINA BREEN Admitting Unavailable SILVINA BREEN Attending Unavailable CHANDA Butler Primary Care Provider [phone] MD Herminia Lawler Admit Provider MD Herminia Lawler Attending Provider KY Rojas Other Provider Unavailable DO Darrion Gilbert Other Provider MD Bo Boothe Other Provider [phone] MD Itz Arguello Other Provider MD Azra Cedillo Other Provider [phone] MD Jesse Sahu Other Provider JUAN Ramos Other Provider MD Jackie Curtis Other Provider MD August Obrien Other Provider MD Brenna Veras Other Provider Itz Arguello II Attending Unavailable Itz Arguello II Attending Unavailable Itz Arguello II Attending Unavailable Rodrick Butler Primary Care Unavailable Heather Soler Attending Unavailable Heather Soler Admitting Unavailable Rodrick Butler Primary Care Unavailable Jessica Rojas Consulting Unavailable Herminia Lawler Attending Unavailable Daromar, Herminia Garcia Admitting Unavailable Darrion Gilbert Consulting Unavailable Bo Boothe Consulting Unavailable Itz Arguello Consulting Unavail able Azra Cedillo Consulting Unavailable Jesse Sahu Consulting Unavailab Adrianna Zabala Consulting Unavailable CurtisJackie urias Consulting Unavailable Micah, August Stephaniejeeb Consulting Unavailab Brenna Loving Consulting Unavailable Katarinanirav Heather Unavailable LUKE, DR BECERRA Attending Unavailable BUTLER, DR BECERRA Admitting Unavailable BUTLER, DR BECERRA Primary Care Unavailable BUTLER, DR BECERRA Consulting Unavailable ZIEBER, DR LOUIS Brice Consulting Unavailable BUTLER, DR BECERRA Attending Unavailable LUKE, DR BECERRA Admitting Unavailable BUTLER, DR BECERRA Primary Care Unavailable BUTLER, DR BECERRA Consulting Unavailable ZIEBER, DR LOUIS Brice Consulting Unavailable LUKE, DR BECERRA Primary Care Unavailable REFUGIO, AHMAD Attending Unavailable REFUGIO, AHHYACINTHD Admitting Unavailable REFUIGO, AHMAD Consulting Unavailable ANDRESSATAYLOR Bauman Attending Unavailable ANDRESSA, TAYLOR Admitting Unavailable ANDRESSA, TAYLOR Consulting Unavailable LUKE, DR BECERRA Primary Care Unavailable BUTLER, DR BECERRA Primary Care Unavailable ANDRESSATAYLOR Bauman Consulting Unavailable ANDRESSATAYLOR Bauman Attending Unavailable ANDRESSA, TAYLOR Admitting Unavailable LUKE, DR BECERRA Primary Care Unavailable FAWWAD, CARRASCO H Attending Unavailable FAWWAD, CARRASCO H Admitting Unavailable MONMOUTH, DR CARMEN Kearns Consulting Unavailable JACKIE, DR HOPE Consulting Unavailable JEAN-CLAUDE OLEARY Consulting Unavailable FAWKYLAH, CARRASCO H Consulting Unavailable EDWIGE ZAVALETA Consulting Unavailable REJI CARLOS Attending Unavailable BREANNA, REJI Admitting Unavailable LUKE, DR BECERRA Primary Care Unavailable NADEREBabs, DR ARTURO Vidal Consulting Unavailable THOMAS KILGORE Consulting Unavailable BREANNA, REJI Consulting Unavailable CHRISTINA MESSINA Consulting Unavailable LUKE, DR BECERRA Primary Care Unavailable ZIEBER, DR LOUIS Brice Consulting Unavailable MARKER ., DR VAZQUEZ Attending Unavailable MARKER ., DR VAZQUEZ Admitting Unavailable MARKER ., DR VAZQUEZ Consulting Unavailable LUKE, DR BECERRA Primary Care Unavailable NEVAEH, DR CORTEZ Robertson Attending Unavailabl e REINELROY, DR CORTEZ Robertson Admitting Unavailabl e REINECK, DR CORTEZ Robertson Consulting Unavailabl e BUTLER, DR BECERRA Referring Unavailable BUTLER, DR BECERRA Primary Care Unavailable ANDRESSA, TAYLOR Attending Unavailable ANDRESSA, TAYLOR Consulting Unavailable ANDRESSA, TAYLOR Admitting Unavailable ANDRESSA, TAYLOR Admitting Unavailable ANDRESSA, TAYLOR Consulting Unavailable ANDRESSA, TAYLOR Attending Unavailable LUKE, DR BECERRA Primary Care Unavailable ANDRESSA, TAYLOR Consulting Unavailable LUKE, DR BECERRA Primary Care Unavailable ANDRESSA, TAYLOR Attending Unavailable ANDRESSA, TAYLOR Admitting Unavailable LUKE, DR BECERRA Attending Unavailable LUKE, DR BECERRA Admitting Unavailable LUKE, DR BECERRA Primary Care Unavailable LUKE, DR BECERRA Consulting Unavailable ZIEBER, DR LOUIS Brice Consulting Unavailable RODRICK BUTLER Attending Unavailable BUTLER, RODRICK B Attending Unavailable HOY, MIKALA Referring Unavailable ELTAHAWY, EHAB Attending Unavailable ELTAHAWY, EHAB Attending Unavailable ANDRESSA, TAYLOR Attending Unavailable Allergies Allergy Classification Reported Allergen(s) Allergy Type Date of Onset Reaction(s) Facility (4 sources) Iodine; 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: [IODINE] Drug Allergy [address] [facility] Repository (5 sources) Sulfonamides (Antibiotic); 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: [SULFA (SULFONAMIDE ANTIBIOTICS)] Drug allergy (disorder) 5 Blister [facility] Repository (3 sources) Shellfish; 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: [shellfish derived] Propensity to adverse reactions 2 Vomiting [facility] (1 source) Iodine Drug Allergy 2 [facility] Repository (1 source) Sulfonamides (Antibiotic) Drug allergy (disorder) 2 [facility] Repository (1 source) Sulfonamides (Antibiotic) Propensity to adverse reactions mouth sores [facility] [employer] Other (1 source) shellfish/iodine Propensity to adverse reactions vomiting [facility] [employer] Other (1 source) empagliflozin Drug Allergy [facility] Repository (1 source) Iodine Drug Allergy 5 [facility] Repository (1 source) Shellfish Drug allergy (disorder) 5 [facility] Repository (1 source) empagliflozin; 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: [EMPAGLIFLOZIN] Drug Allergy [address] [facility] Repository (1 source) OTHER; 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: [OTHER] Propensity to adverse reactions (disorder) [address] [facility] Repository (1 source) SHELLFISH CONTAINING PRODUCTS; 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: [SHELLFISH CONTAINING PRODUCTS] Propensity to adverse reactions to drug (disorder) [address] [facility] Repository Medications Current Medications Medication Drug Class(es) Dates Sig (Normalized) Sig (Original) aspirin 81 mg delayed release oral tablet (3 sources) Platelet Aggregation Inhibitor, Nonsteroidal Anti-inflammatory Drug Start: 05-09-2022 take 81 mg by mouth once daily Aspirin Active 81 MG PO Daily May 09, 2022 12:00am atorvastatin 80 mg oral tablet (3 sources) HMG-CoA Reductase Inhibitor Start: 05-09-2022 take 80 mg by mouth once daily at bedtime Atorvastatin Active 80 MG PO Daily at bedtime May 09, 2022 12:00am take 1 tablet by keaton th every twenty-four hours Atorvastatin Calcium 40 MG 1 tablet Oral ly Once a day Active carvedilol 12.5 mg oral tablet (1 source) alpha-Adrenergic Reginaldo, beta-Adrenergic Reginaldo take 1 tablet by mouth every twelve hours Carvedilol 12.5 MG 1 tablet with food Orally Twice a day Active clopidogrel 75 mg oral tablet (3 sources) P2Y12 Platelet Inhibitor Start: take 75 mg by mouth once daily Clopidogrel Active 75 MG PO Daily May 09, 2022 12:00am dapagliflozin 10 mg oral tablet (3 sources) Sodium-Glucose Cotransporter 2 Inhibitor Start: take 1 tablet by mouth once daily Dapagliflozin (Farxiga) 10 mg tablet Active 10 MG PO Daily May 09, 2022 12:00am dorzolamide 20 mg/ml / timolol 5 mg/ml ophthalmic solution (3 sources) Carbonic Anhydrase Inhibitor, beta-Adrenergic Reginaldo Start: take 1 drop(s) into the eye(s) twice daily Dorzolamide-Timolol Active 1 DROPS EYE-RIGHT 2 times daily May 09, 2022 12:00am take 1 drop(s) into the eye(s) twice daily Dorzolamide HCl-Timolol Mal 22.3-6.8 MG/ ML 1 drop into affected eye Ophthalmic Twice a day Active famotidine 20 mg oral tablet (2 sources) Histamine-2 Receptor Antagonist Start: 05-11-2022 take 20 mg by mouth twice daily Famotidine Active 20 MG PO Twice daily 60 30 May 11, 2022 12:00am FreeStyle Marianne 2 Felda - (1 source) Start: 09-23-2022 FreeStyle Libr e 2 Felda - as directed -- 5 x day for [address] [facility] Aug, Active FreeStyle Marianne 2 Sensor - (1 source) Start: 09-23-2022 FreeStyle Libr e 2 Sensor - as directed in vitro q 14 days for [address] [facility] Aug, Active furosemide 20 mg oral tablet (2 sources) Loop Diuretic Start: 05-09-2022 Furosemide Act edmundo 0 .ROUTE .COMPLEX May 09, 2022 12:00am TAKE 1 TABLET BY MOUTH DAILY FOR 3 DAYS then stop; may repeat NEEDED for increased swelling glipiZIDE (1 source) Sulfonylurea Glucotrol Active 3 ml insulin glargine 100 unt/ml pen injector (3 sources) Insulin Analog Start: 05-09-2022 Insulin Glargi ne (Lantus Solostar U-100 Insulin) 100 unit/mL (3 mL) insulin pen Active 32 UNIT SUBCUT Daily at bedtime May 09, 2022 12:00am Start: 01-08-2012 Lantus SoloSta r 100 UNIT/ML 25 am/18 pm units Subcutaneous bid CGM needed for titration December, Active LORazepam 1 mg oral tablet (1 source) Benzodiazepine take 1 tablet by mouth at bedtime Ativan 1 MG 1 tablet Orally at hs Active metFORMIN hydrochloride 500 mg oral tablet (1 source) Biguanide take 2 tablets by mouth twice daily metFORMIN HCl 500 MG 2 tablets Orally Twice a day Active 24 hr metoprolol succinate 50 mg extended release oral tablet (4 sources) beta-Adrenergic Reginaldo Start: 05-09-20 take 50 mg by mouth once daily Metoprolol Succinate Active 50 MG PO Daily May 09, 2022 12:00am Start: 05-09-2022 End: 05-09-2022 Metoprolol Succinate Discont inued MG PO May 09, 2022 12:00am May 09, 2022 10:42am potassium chloride 10 meq extended release oral tablet (2 sources) Start: 05-09-2022 take 10 mEq by mouth twice daily as needed Potassium Chloride Active 10 MEQ PO Twice daily May 09, 2022 12:00am take only when taking PRN furosemide rOPINIRole 0.25 mg oral tablet (2 sources) Nonergot Dopamine Agonist Start: 05-09-2022 take 0.25 mg by mouth once daily Ropinirole Active 0.25 MG PO Daily May 09, 2022 12:00am sacubitril 24 mg / valsartan 26 mg oral tablet (3 sources) Angiotensin 2 Receptor Reginaldo Start: 05-09-2022 take 1 tablet by mouth twice daily Sacubitril-Valsar reazo (Entresto) 24-26 mg tablet Active 1 TAB PO Twice daily May 09, 2022 12:00am ENTRESTO 24 mg/2 6 mg 1 orally twice a day Active zolpidem tartrate 10 mg oral tablet (1 source) gamma-Aminobutyric Acid-ergic Agonist take 1 tablet by mouth every twenty-four hours Ambien 10 MG 1 tablet at bedtime as needed Orally Once a day Active Completed/Discontinued Medications Medication Drug Class(es) Dates Sig (Normalized) Sig (Original) losartan potassium 50 mg oral tablet (2 sources) Angiotensin 2 Receptor Reginaldo Start: 05-09-2022 End: 05-09-2022 Losartan Discontinued MG TABLET May 09, 2022 12:00am May 09, 2022 3:23pm Problems Active Problems Problem Classification Problem Date Documented Da te Episodic/Chronic Acute myocardial infarction (4 sources) Myocardial infarction; 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: [Non-ST elevation (NSTEMI) myocardial infarction] Onset: 05-09-2022 05-09-2022 Chronic Administrative/social admission (1 source) Dietary counseling and surveillance Episodic Cardiac dysrhythmias (4 sources) Palpitations; 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: [PALPITATIONS] Onset: 08-28-2022 Episodic Chronic kidney disease (1 source) Chronic kidney disease; 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: [CHRONIC KIDNEY DISEASE STAGE 3A] Onset: 06-11-2022 Conditions associated with dizziness or vertigo (3 sources) Dizziness and giddiness; 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: [DIZZINESS AND GIDDINESS] Onset: 11-24-2022 Episodic Congestive heart failure; nonhypertensive (6 sources) Unspecified systolic (congestive) heart failure; 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: [Chronic systolic (congestive) heart failure] Onset: 03-12-2022 Chronic Coronary atherosclerosis and other heart disease (10 sources) Coronary arteriosclerosis; 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: [Atherosclerotic heart disease of [place] coronary artery without angina pectoris] Onset: 05-09-2022 05-09-2022 Chronic Coronary atherosclerosis and other heart disease (2 sources) Presence of coronary angioplasty implant and graft; 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: [PRESENCE COR ANGPLSTY IMPLANT AND GRAFT] Onset: 05-13-2022 Episodic Diabetes mellitus with complications (5 sources) Type 2 diabetes mellitus with hyperglycemia; 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: [Hyperglycemia due to type 2 diabetes mellitus] Onset: 06-14-2022 Chronic Diabetes mellitus without complication (5 sources) Diabetes mellitus; 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: [Type 2 diabetes mellitus without complications] Onset: 05-09-2022 05-09-2022 Chronic Disorders of lipid metabolism (8 sources) Hyperlipidemia; 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: [Hyperlipidemia, unspecified] Onset: 05-09-2022 05-09-2022 Chronic Diverticulosis and diverticulitis (1 source) Diverticular disease of colon; 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: [Diverticulosis of large intestine without perforation or abscess without bleeding] Chronic E Codes: Fall (1 source) Unspecified fall, initial encounter; 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: [UNSPECIFIED FALL INITIAL ENCOUNTER] Onset: 09-08-2022 Episodic Essential hypertension (7 sources) Hypertensive disorder; 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: [Essential (primary) hypertension] Onset: 05-09-2022 05-09-2022 Chronic Hypertension with complications and secondary hypertension (2 sources) Hypertensive chronic kidney disease with stage 1 through stage 4 chronic kidney disease, or unspecified chronic kidney disease; 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: [Hypertensive heart and chronic kidney disease with heart failure and stage 1 through stage 4 chronic kidney disease, or unspecified chronic kidney disease] Onset: 09-08-2022 Chronic Menopausal disorders (4 sources) Other primary ovarian failure; 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: [OTHER PRIMARY OVARIAN FAILURE] Onset: 09-29-2022 Chronic Nonspecific chest pain (5 sources) Other chest pain; 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: [Chest pain, unspecified] Onset: 02-11-2022 Episodic Nutritional deficiencies (2 sources) Vitamin D deficiency; 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: [Vitamin D deficiency, unspecified] Chronic Osteoporosis (1 source) Age-related osteoporosis without current pathological fracture; 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: [AGE-REL OSTEOPOR W/O CURR PATH FX] Onset: 10-01-2022 Chronic Other aftercare (1 source) Long-term current use of insulin; 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: [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 insulin] Episodic Other aftercare (2 sources) 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 insulin; 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: [INDUSTRIAL REGISTERED NURSE CURRENT USE OF INSULIN] Onset: 11-25-2022 Episodic Other aftercare (1 source) 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 aspirin; 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: [RETIREMENT CURRENT USE OF ASPIRIN] Onset: 11-25-2022 Episodic Other aftercare (1 source) 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; 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: [OTH RETIREMENT CURRENT DRUG THERAPY] Onset: 11-25-2022 Episodic Other aftercare (1 source) 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 antithrombotics/ant iplatelets; 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: [RETIREMENT ANTITHROMBOT/ANTIPL ATLETS] Onset: 11-25-2022 Episodic Other endocrine disorders (4 sources) Other specified disorders of adrenal gland; 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: [OTHER SPEC DISORDERS ADRENAL GLAND] Onset: 08-18-2022 Chronic Other gastrointestinal disorders (1 source) H/O: colitis; 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: [Personal history of other diseases of the digestive system] Episodic Other hematologic conditions (2 sources) Raised cardiac enzyme or marker; 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: [Other specified abnormalities of plasma proteins] 05-09-2022 Episodic Other injuries and conditions due to external causes (1 source) Unspecified injury of head, initial encounter; 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: [UNSPECIFIED INJURY HEAD INITIAL ENC] Onset: 09-08-2022 Episodic Other lower respiratory disease (1 source) Shortness of breath; 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: [SHORTNESS OF BREATH] Onset: 11-25-2022 Episodic Other skin disorders (1 source) Localized swelling, mass and lump, lower limb, bilateral; 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: [LOC SWELL MASS LUMP LOW LIMB MIKE] Onset: 09-08-2022 Episodic Unclassified (1 source) CHRN KIDNEY DISEASE STG 3 UNSP; 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: [CHRN KIDNEY DISEASE STG 3 UNSP] Onset: 11-25-2022 Unclassified (1 source) CONTACT W/AND (SUSP) EXPOS COVID-19; 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: [CONTACT W/AND (SUSP) EXPOS COVID-19] Onset: 09-08-2022 Unclassified (2 sources) second degree heart block Onset: 09-05-2023 Urinary tract infections (1 source) Urinary tract infection, site not specified; 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: [UTI SITE NOT SPECIFIED] Onset: 11-25-2022 Episodic Past or Other Problems Problem Classification Problem Date Documented Date Episodic/Chronic Abdominal pain (11 sources) Epigastric pain; 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: [Epigastric pain] Onset: 05-09-2022 05-10-2022 Episodic Other hematologic conditions (3 sources) Other specified abnormalities of plasma proteins; 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: [Other abnormal blood chemistry] Onset: 05-09-2022 05-11-2022 Episodic Other lower respiratory disease (1 source) Dyspnea, unspecified; 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: [DYSPNEA UNSPECIFIED] Onset: 02-13-2022 Episodic Other screening for suspected conditions (not mental disorders or infectious disease) (5 sources) Abnormal result of other cardiovascular function study; 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: [Abnormal electrocardiogram [ECG] [EKG]] Onset: 02-13-2022 Episodic Results Test Name Value Interpretation Reference Range Facility Office Visiton 06-03-2023 Follow-up visit [id number] Gracie Aragonbrian Vidal 1940 F Date Provider Department Center 06/03/2023 JOSH BRIZUELA Family History Problem Relation Age of Onset Hypertension Mother Coronary artery disease Mother Coronary artery disease Father Hypertension Father Hypertension Sister Coronary artery disease Brother Family Status - Relation Status Age at Mother Father Sister Brother Level of Service:38131 AL OFFICE/OUTPATIENT ESTABLISHED LOW MDM 20-29 MIN Normal [facility] Outside Recordson 05-13-2023 Outside Records [id number] 1#1.00CD:127 Normal [facility] Physician Orderon 05-13-2023 Physician Order [id number] 8#1.00CD:127 Normal [facility] Office Visiton 12-17-2022 Follow-up visit [id number] Tere Aragon 1940 F Date Provider Department Center 12/17/2022 TAYLOR WEBER Family History Problem Relation Age of Onset Hypertension Mother Coronary artery disease Mother Coronary artery disease Father Hypertension Father Hypertension Sister Coronary artery disease Brother Family Status - Relation Status Age at Mother Father Sister Brother Level of Service:34683 AL OFFICE/OUTPATIENT ESTABLISHED MOD MDM 30-39 MIN Reason for Visit and Comments: Follow-up [437584] - BP per EE - states no cardiac complaints at this time. Does have some slight nausea this morning since breakfast. Unknown cause. Normal [facility] BNPon 11-24-2022 Natriuretic peptide B (Bld) [Mass/Vol] 703.0 pg/mL Normal <=1,800.0 [facility] Comment on above: Performed By: #### C VDTBH #### [facility] [address] [place] [address] Dr. Kesha Ageuro CBC AUTO DIFFon 11-24-2022 BASO # 0.0 103/ul Normal 0.0-0.1 [facility] Comment on above: Performed By: #### D DIM #### [facility] [address] [place] [address] Dr. Kesha Aguero Basophils/100 WBC (Bld) 0.5 % Normal 0.2-2.0 [facility] Comment on above: Performed By: #### D DIM #### [facility] [address] [place] [address] Dr. Kesha Aguero EO # 0.1 103/ul Normal 0.0-0.7 [facility] Comment on above: Performed By: #### D DIM #### [facility] [address] [place] [address] Dr. Kesha Aguero Eosinophils/100 WBC (Bld) 1.4 % Normal 0.9-7.0 [facility] Comment on above: Performed By: #### D DIM #### [facility] [address] [place] [address] Dr. Kesha Aguero Erythrocyte distribution width (RBC) [Ratio] 14.9 % Normal 11.0-15.0 [facility] Comment on above: Performed By: #### D DIM #### [facility] [address] [place] [address] Dr. Kesha Aguero Hematocrit (Bld) [Volume fraction] 45.3 % Normal 36.0-48.0 [facility] Comment on above: Performed By: #### D DIM #### [facility] [address] [place] [address] Dr. Kesha Aguero Hemoglobin (Bld) [Mass/Vol] 13.9 g/dL Normal 12.0-16.0 [facility] Comment on above: Performed By: #### D DIM #### [facility] [address] [place] [address] Dr. Kesha Aguero IG # 0.02 10e3/ul Normal 0.00-0.03 [facility] Comment on above: Performed By: #### D DIM #### [facility] [address] [place] [address] Dr. Kesha Aguero IG % 0.2 % Normal 0.0-0.5 [facility] Comment on above: Performed By: #### D DIM #### [facility] [address] [place] [address] Dr. Kesha Aguero LYMPH # 2.6 103/ul Normal 1.2-3.8 [facility] Comment on above: Performed By: #### D DIM #### [facility] [address] [place] [address] Dr. Kesha Aguero Lymphocytes/100 WBC (Bld) 30.3 % Normal 20.5-60.0 [facility] Comment on above: Performed By: #### D DIM #### [facility] [address] [place] [address] Dr. Kesha Aguero MANUAL DIFF REQ NO Normal [facility] Comment on above: Performed By: #### D DIM #### [facility] [address] [place] [address] Dr. Kesha Aguero MCH (RBC) [Entitic mass] 25.6 pg Critically low 26.7-34 .0 [facility] Comment on above: Performed By: #### D DIM #### [facility] [address] [place] [address] Dr. Kesha Aguero MCHC (RBC) [Mass/Vol] 30.7 g/dL Normal 29.9-35.2 [facility] Comment on above: Performed By: #### D DIM #### [facility] [address] [place] [address] Dr. Kesha Aguero MCV (RBC) [Entitic vol] 83.3 fL Normal 81.0-99.0 [facility] Comment on above: Performed By: #### D DIM #### [facility] [address] [place] [address] Dr. Kesha Aguero MONO # 0.6 103/ul Normal 0.3-0.8 [facility] Comment on above: Performed By: #### D DIM #### [facility] [address] [address] [address] Kesha Aguero Monocytes/100 WBC (Bld) 6.5 % Normal 1.7-12.0 [facility] Comment on above: Performed By: #### D DIM #### [facility] [address] [place] [address] Dr. Kesha Aguero NEUT # 5.1 103/ul Normal 1.4-6.5 [facility] Comment on above: Performed By: #### D DIM #### [facility] [address] [place] [address] Dr. Kesha Aguero Neutrophils/100 WBC (Bld) 61.1 % Normal 43.0-75.0 [facility] Comment on above: Performed By: #### D DIM #### [facility] [address] [place] [address] Dr. Kesha Aguero Platelet mean volume (Bld) [Entitic vol] 9.6 fL Normal 9.5-13.5 [facility] Comment on above: Performed By: #### D DIM #### [facility] [address] [place] [address] Dr. Kesha Aguero PLT 208 103/ul Normal 150-450 [facility] Comment on above: Performed By: #### D DIM #### [facility] [address] [place] [address] Dr. Kesha Aguero RBC 5.44 106/ul Critically high 4.20-5.40 [facility] Comment on above: Performed By: #### D DIM #### [facility] [address] [place] [address] Dr. Kesha Aguero WBC 8.4 103/ul Normal 4.0-11.0 [facility] Comment on above: Performed By: #### D DIM #### [facility] [address] [place] [address] Dr. Kesha Aguero CULTURE BLOODon 11-24-2022 Microscopic examination of blood, culture Culture Observations: NO GROWTH AT 5 DAYS. Isolate 1 BC_BA_NA Normal [facility] Comment on above: Performed By: #### B [id number] #### [facility] [address] [place] [address] Dr. Kesha Aguero Microscopic examination of blood, culture Culture Observations: NO GROWTH AT 5 DAYS. Isolate 1 BC_BA_NA Normal [facility] Comment on above: Performed By: #### C VDTBH #### [facility] [address] [place] [address] Dr. Kesha Aguero CULTURE URINEon 11-24-2022 CULTURE URINE Culture Observations: LIGHT GROWTH OF MIXED GENITAL SANTY. NO POTENTIAL PATHOGENS SEEN. Normal [facility] Comment on above: Performed By: #### C VDTBH #### [facility] [address] [place] [address] Dr. Kesha Aguero ER URINE PROFILEon 3 Bilirubin Ql (U) Negative Normal NEGATIVE [facility] Comment on above: Performed By: #### D DIM #### [facility] [address] [place] [address] Dr. Kesha Aguero Clarity (U) CLEAR Normal CLEAR [facility] Comment on above: Performed By: #### D DIM #### [facility] [address] [place] [address] Dr. Kesha Aguero Color (U) DK. YELLOW Normal YELLOW [facility] Comment on above: Performed By: #### D DIM #### [facility] [address] [place] [address] Dr. Kesha Aguero ERUAHD A micrscopic examination will be performed if indicated. Normal [facility] Comment on above: Performed By: #### D DIM #### [facility] [address] [place] [address] Dr. Kesha Aguero Glucose Ql (U) >1000 Abnormal NEGATIVE [facility] Comment on above: Performed By: #### D DIM #### [facility] [address] [place] [address] Dr. Kesha Aguero Hemoglobin Ql (U) Negative Normal NEGATIVE [facility] Comment on above: Performed By: #### D DIM #### [facility] [address] [place] [address] Dr. Kesha Aguero Ketones Ql (U) Negative Normal NEGATIVE [facility] Comment on above: Performed By: #### D DIM #### [facility] [address] [place] [address] Dr. Kesha Aguero LEUKOCYTES Negative Normal NEGATIVE [facility] Comment on above: Performed By: #### D DIM #### [facility] [address] [place] [address] Dr. Kesha Aguero Nitrite Ql (U) Positive Abnormal NEGATIVE [facility] Comment on above: Performed By: #### D DIM #### [facility] [address] [place] [address] Dr. Kesha Aguero pH (U) 6.0 [pH] Normal 5-9 [facility] Comment on above: Performed By: #### D DIM #### [facility] [address] [place] [address] Dr. Kesha Aguero SPEC GRAVITY <=1.005 Abnormal 1.005-<=1.02 5 [facility] Comment on above: Performed By: #### D DIM #### [facility] [address] [place] [address] Dr. Kesha Aguero UA PROTEIN Negative Normal NEGATIVE/ TRACE [facility] Comment on above: Performed By: #### D DIM #### [facility] [address] [place] [address] Dr. Kesha Aguero UR MICRO IND INDICATED Normal [facility] Comment on above: Performed By: #### D DIM #### [facility] [address] [place] [address] Dr. Kesha Aguero Urobilinogen Qn (U) 0.2 {Allison'U}/dL Normal 0.2 - 1. 0 [facility] Comment on above: Performed By: #### D DIM #### [facility] [address] [place] [address] Dr. Kesha Aguero LACTATE/LACTIC ACIDon 2022 Lactate [Moles/Vol] 1.0 mmol/L Normal 0.4-2.0 [facility] Comment on above: Performed By: #### C VDTBH #### [facility] [address] [address] [address] Kesha Aguero PROF 14(COMP METB)on 023 Albumin [Mass/Vol] 3.8 g/dL Normal 3.4-5.0 [facility] Comment on above: Performed By: #### C VDTBH #### [facility] [address] [address] [address] Kesha Aguero Albumin/Globulin [Mass ratio] 1.1 {ratio} Normal [facility] Comment on above: Performed By: #### C VDTBH #### [facility] [address] [address] [address] Kesha Aguero ALP [Catalytic activity/Vol] 118 U/L Critically high 46-116 [facility] Comment on above: Performed By: #### C VDTBH #### [facility] [address] [address] [address] Kesha Aguero ALT [Catalytic activity/Vol] 41 U/L Normal 14-59 [facility] Comment on above: Performed By: #### C VDTBH #### [facility] [address] [address] [address] Kesha Aguero Anion gap [Moles/Vol] 14.3 mmol/L Normal [facility] Comment on above: Performed By: #### C VDTBH #### [facility] [address] [address] [address] Kesha Aguero AST [Catalytic activity/Vol] 23 U/L Normal 15-37 [facility] Comment on above: Performed By: #### C VDTBH #### [facility] [address] [address] [address] Kesha Aguero Bilirubin [Mass/Vol] 0.5 mg/dL Normal 0.2-1.0 [facility] Comment on above: Performed By: #### C VDTBH #### [facility] [address] [address] [address] Kesha Aguero Calcium [Mass/Vol] 9.3 mg/dL Normal 8.5-10.1 [facility] Comment on above: Performed By: #### C VDTBH #### [facility] [address] [address] [address] Kesha Aguero Chloride [Moles/Vol] 106 mmol/L Normal 98-107 [facility] Comment on above: Performed By: #### C VDTBH #### [facility] [address] [address] [address] Kesha Aguero CO2 [Moles/Vol] 26.4 mmol/L Normal 21.0-32.0 [facility] Comment on above: Performed By: #### C VDTBH #### [facility] [address] [place] [address] Dr. Kesha Aguero Creatinine [Mass/Vol] 0.92 mg/dL Normal 0.55-1.02 [facility] Comment on above: Performed By: #### C VDTBH #### [facility] [address] [address] [address] Kesha Aguero EGFR-AF CAMBODIAN >60 Normal >=60 [facility] Comment on above: Performed By: #### C VDTBH #### [facility] [address] [place] [address] Dr. Kesha Aguero EGFR-NON AF CAMBODIAN 58 mL/min/1.73m2 Critically low >=60 [facility] Comment on above: Performed By: #### C VDTBH #### [facility] [address] [address] [address] Kesha Aguero Globulin (S) [Mass/Vol] 3.5 g/dL Normal [facility] Comment on above: Performed By: #### C VDTBH #### [facility] [address] [address] [address] Kesha Aguero Glucose [Mass/Vol] 184 mg/dL Critically high 74-106 [facility] Comment on above: Performed By: #### C VDTBH #### [facility] [address] [address] [address] Kesha Aguero Potassium [Moles/Vol] 4.7 mmol/L Normal 3.5-5.1 [facility] Comment on above: Performed By: #### C VDTBH #### [facility] [address] [address] [address] Kesha Aguero Protein [Mass/Vol] 7.3 g/dL Normal 6.4-8.2 [facility] Comment on above: Performed By: #### C VDTBH #### [facility] [address] [address] [address] Kesha Aguero Sodium [Moles/Vol] 142 mmol/L Normal 136-145 [facility] Comment on above: Performed By: #### C VDTBH #### [facility] [address] [place] [address] Dr. Kesha Aguero Urea nitrogen [Mass/Vol] 18.0 mg/dL Normal 7.0-18.0 [facility] Comment on above: Performed By: #### C VDTBH #### [facility] [address] [place] [address] Dr. Kesha Aguero Urea nitrogen/Creatinine [Mass ratio] 19.6 mg/mg Normal [facility] Comment on above: Performed By: #### C VDTBH #### [facility] [address] [place] [address] Dr. Kesha Aguero TROPONIN, HIGH SENSITIVITYon 11-24-2022 HSTROP 9.2 pg/mL Normal 4.0-51.3 [facility] Comment on above: Result Comment: CUT- OFF POINTS HAVE BEEN ESTABLISHED BASED ON THE FOURTH UNIVERSAL DEFINITIONS OF MYOCARDIAL INFARCTION. THE UPPER REFERENCE LIMIT (URL) OF TROPONIN, DEFINED THE 99TH PERCENTILE OF cTnI DISTRIBUTION IN A REFERENCE POPULATION, HAS BEEN CONFIRMED THE DECISION THRESHOLD FOR DC DIAGNOSIS. Performed By: #### A CETON #### [facility] [address] [address] [address] Kesha Aguero HSTROP 9.5 pg/mL Normal 4.0-51.3 [facility] Comment on above: Result Comment: CUT- OFF POINTS HAVE BEEN ESTABLISHED BASED ON THE FOURTH UNIVERSAL DEFINITIONS OF MYOCARDIAL INFARCTION. THE UPPER REFERENCE LIMIT (URL) OF TROPONIN, DEFINED THE 99TH PERCENTILE OF cTnI DISTRIBUTION IN A REFERENCE POPULATION, HAS BEEN CONFIRMED THE DECISION THRESHOLD FOR DC DIAGNOSIS. Performed By: #### C VDTBH #### [facility] [address] [place] [address] Dr. Kesha Aguero URINE MICROSCOPIC ONLYon BACTERIA TRACE Abnormal NONE SEEN [facility] Comment on above: Performed By: #### C VDTBH #### [facility] [address] [place] [address] Dr. Kesha Aguero Bacteria identified Cx Nom (U) INDICATED Normal [facility] Comment on above: Performed By: #### C VDTBH #### [facility] [address] [place] [address] Dr. Kesha Aguero CAST NONE SEEN Normal NONE SEEN [facility] Comment on above: Performed By: #### C VDTBH #### [facility] [address] [place] [address] Dr. Kesha Aguero Crystals LM Nom (Urine sed) NONE SEEN Normal NONE SEEN [facility] Comment on above: Performed By: #### C VDTBH #### [facility] [address] [place] [address] Dr. Kesha Aguero Epithelial cells LM Ql (Urine sed) FEW Abnormal NONE SEEN /RARE [facility] Comment on above: Performed By: #### C VDTBH #### [facility] [address] [place] [address] Dr. Kesha Aguero MUCOUS NONE SEEN Normal NONE SEEN [facility] Comment on above: Performed By: #### C VDTBH #### [facility] [address] [place] [address] Dr. Kesha Aguero RBC 0-2 Normal 0-2 [facility] Comment on above: Performed By: #### C VDTBH #### [facility] [address] [place] [address] Dr. Kesha Aguero WBC 2-5 Abnormal NONE SEEN [facility] Comment on above: Performed By: #### C VDTB #### [facility] [address] [address] [address] Kesha Aguero XR DEXA BONE DENSITYon 09-29 XR DEXA BONE DENSITY EXAMINATION: XR DEX A BONE DENSITY, 09/29/2022 10:51 AM EST HISTORY: Primary ovarian failure COMPARISON: None. TECHNIQUE: Dual-energy X-ray absorptiometry (DEXA) bone density study performed for the axial skeleton. FINDINGS: SPINE ANALYSIS: Average bone mineral density is 0.971 g/cm2. T-score (standard deviation relative to young adult mean): -1.7 . HIP ANALYSIS: Lowest bone mineral density is within the left femoral trochanter, 0.555 g/cm2. T-score (standard deviation relative to young adult mean): -2.6 . IMPRESSION: World Kevin Organization Classification: Osteoporosis - High Fracture Risk Electronically authenticated by: LOUIS QUINTANA Date: 2022-09-29 12:45 Normal [facility] Office Visiton 09-08-2022 Follow-up visit [id number] Tere Aragon 1940 F Date Provider Department Center 09/08/2022 271-KIESHATARICARDO, EHAB [facility] Family History Problem Relation Age of Onset Hypertension Mother Coronary artery disease Mother Coronary artery disease Father Hypertension Father Hypertension Sister Coronary artery disease Brother Family Status - Relation Status Age at Mother Father Sister Brother Level of Service:55342 AL OFFICE/OUTPATIENT ESTABLISHED MOD MDM 30-39 MIN Reason for Visit and Comments: Chest Pain [066093] Coronary Artery Disease [187] Normal [facility] CT HEAD WO CONon 08-29-2022 CT HEAD WO CON EXAMINATION: CT HEAD WO CON HISTORY: HEADACHE COMPARISON: None. TECHNIQUE: CT examination of the head without IV contrast. Sagittal and coronal reconstructions were obtained. Dose reduction techniques were achieved by using automated exposure control and/or adjustment of mA and/or kV according to patient size and/or use of iterative reconstruction technique. FINDINGS: The ventricles are borderline enlarged, the lateral ventricles are symmetric and the third ventricles in the midline. The sylvian fissures and cortical sulci are slightly prominent in size. There is no evidence of an intracranial hemorrhage, mass lesion or apparent acute infarct. Patchy diminished attenuation is seen in the periventricular deep white matter. Frontal hyperostosis is noted. Atheromatous calcifications are seen in the distal vertebral arteries as well as the distal internal carotid arteries. The cerebellum and the utilized brainstem are intact. Bilateral lens implants are in place. The paranasal sinuses are relatively well-developed. Just along the right side of the sphenoid sinus there is complete opacification. Some mucosal thickening is seen throughout the ethmoid sinuses as well. The middle ears are aerated. The mastoid sinuses are significantly underdeveloped bilaterally with sclerotic changes in the temporal bones. Subtle mastoiditis on the right is noted. There is no apparent skull fracture. IMPRESSION: There is no evidence of an intracranial hemorrhage, mass lesion or apparent acute infarct. Mild diffuse atrophy is present. Patchy diminished attenuation in the deep white matter indicates early small vessel ischemic change. Frontal hyperostosis is noted. There is complete opacification of a portion of the sphenoid sinuses on the right indicating acute sinusitis. Mild mucosal thickening is seen scattered throughout the ethmoid sinuses. The mastoid sinuses are significantly underdeveloped with sclerotic changes in the temporal bones. Subtle mastoiditis on the right is suggested. Comparison with a previous study is recommended to verify stability of these findings. Electronically authenticated by: EDWIGE ZAVALETA Date: 2022-08-29 14:04 Normal [facility] POINT OF CARE GLUCOSEon 08-02 Glucose [Mass/Vol] 279 mg/dL Critically high 74-106 [facility] Comment on above: Performed By: #### C VDTB #### [facility] [address] [address] [address] Kesha Aguero Glucose [Mass/Vol] 65 mg/dL Critically low 74-106 [facility] Comment on above: Performed By: #### C VDTBH #### [facility] [address] [address] [address] Kesha Aguero BNPon 08-28-2022 Natriuretic peptide B (Bld) [Mass/Vol] 673.0 pg/mL Normal <=1,800.0 [facility] Comment on above: Performed By: #### C VDTBH #### [facility] [address] [address] [address] Kesha Aguero CARDIAC KARLIE ADMITon 022 CK [Catalytic activity/Vol] 33 U/L Normal 26-192 [facility] Comment on above: Performed By: #### C VDTBH #### [facility] [address] [place] [address] Dr. Kesha Aguero CK.MB [Mass/Vol] 0.58 ng/mL Normal <=3.60 [facility] Comment on above: Performed By: #### C VDTBH #### [facility] [address] [place] [address] Dr. Kesha Aguero HSTROP 11.2 pg/mL Normal 4.0-51.3 [facility] Comment on above: Result Comment: CUT- OFF POINTS HAVE BEEN ESTABLISHED BASED ON THE FOURTH UNIVERSAL DEFINITIONS OF MYOCARDIAL INFARCTION. THE UPPER REFERENCE LIMIT (URL) OF TROPONIN, DEFINED THE 99TH PERCENTILE OF cTnI DISTRIBUTION IN A REFERENCE POPULATION, HAS BEEN CONFIRMED THE DECISION THRESHOLD FOR DC DIAGNOSIS. Performed By: #### C VDTBH #### [facility] [address] [place] [address] Dr. Kesha Aguero ELIAS 48 ng/mL Normal 9-82 [facility] Comment on above: Performed By: #### C VDTBH #### [facility] [address] [place] [address] Dr. Kesha Aguero CBC AUTO DIFFon 08-28-2022 BASO # 0.1 103/ul Normal 0.0-0.1 [facility] Comment on above: Performed By: #### C VDTBH #### [facility] [address] [place] [address] Dr. Kesha Aguero Basophils/100 WBC (Bld) 0.6 % Normal 0.2-2.0 [facility] Comment on above: Performed By: #### C VDTBH #### [facility] [address] [place] [address] Dr. Kesha Aguero EO # 0.2 103/ul Normal 0.0-0.7 [facility] Comment on above: Performed By: #### C VDTBH #### [facility] [address] [place] [address] Dr. Kesha Aguero Eosinophils/100 WBC (Bld) 2.3 % Normal 0.9-7.0 [facility] Comment on above: Performed By: #### C VDTBH #### [facility] [address] [place] [address] Dr. Kesha Aguero Erythrocyte distribution width (RBC) [Ratio] 15.7 % Critically high 11.0-15.0 [facility] Comment on above: Performed By: #### C VDTBH #### [facility] [address] [place] [address] Dr. Kesha Aguero Hematocrit (Bld) [Volume fraction] 44.6 % Normal 36.0-48.0 [facility] Comment on above: Performed By: #### C VDTBH #### [facility] [address] [place] [address] Dr. Kesha Aguero Hemoglobin (Bld) [Mass/Vol] 14.4 g/dL Normal 12.0-16.0 [facility] Comment on above: Performed By: #### C VDTBH #### [facility] [address] [place] [address] Dr. Kesha Aguero IG # 0.02 10e3/ul Normal 0.00-0.03 [facility] Comment on above: Performed By: #### C VDTBH #### [facility] [address] [place] [address] Dr. Kesha Aguero IG % 0.3 % Normal 0.0-0.5 [facility] Comment on above: Performed By: #### C VDTBH #### [facility] [address] [place] [address] Dr. Kesha Aguero LYMPH # 3.5 103/ul Normal 1.2-3.8 [facility] Comment on above: Performed By: #### C VDTBH #### [facility] [address] [place] [address] Dr. Kesha Aguero Lymphocytes/100 WBC (Bld) 43.6 % Normal 20.5-60.0 [facility] Comment on above: Performed By: #### C VDTBH #### [facility] [address] [place] [address] Dr. Kesha Aguero MANUAL DIFF REQ NO Normal [facility] Comment on above: Performed By: #### C VDTBH #### [facility] [address] [place] [address] Dr. Kesha Aguero MCH (RBC) [Entitic mass] 25.9 pg Critically low 26.7-34 .0 [facility] Comment on above: Performed By: #### C VDTBH #### [facility] [address] [place] [address] Dr. Kesha Aguero MCHC (RBC) [Mass/Vol] 32.3 g/dL Normal 29.9-35.2 [facility] Comment on above: Performed By: #### C VDTBH #### [facility] [address] [place] [address] Dr. Kesha Aguero MCV (RBC) [Entitic vol] 80.4 fL Critically low 81.0-99. 0 [facility] Comment on above: Performed By: #### C VDTBH #### [facility] [address] [place] [address] Dr. Kesha Aguero MONO # 0.5 103/ul Normal 0.3-0.8 [facility] Comment on above: Performed By: #### C VDTBH #### [facility] [address] [place] [address] Dr. Kesha Aguero Monocytes/100 WBC (Bld) 6.0 % Normal 1.7-12.0 [facility] Comment on above: Performed By: #### C VDTBH #### [facility] [address] [place] [address] Dr. Kesha Aguero NEUT # 3.8 103/ul Normal 1.4-6.5 [facility] Comment on above: Performed By: #### C VDTBH #### [facility] [address] [place] [address] Dr. Kesha Aguero Neutrophils/100 WBC (Bld) 47.2 % Normal 43.0-75.0 [facility] Comment on above: Performed By: #### C VDTBH #### [facility] [address] [address] [address] Kesha Aguero Platelet mean volume (Bld) [Entitic vol] 9.7 fL Normal 9.5-13.5 [facility] Comment on above: Performed By: #### C VDTBH #### [facility] [address] [place] [address] Dr. Kesha Aguero PLT 269 103/ul Normal 150-450 [facility] Comment on above: Performed By: #### C VDTBH #### [facility] [address] [place] [address] Dr. Kesha Aguero RBC 5.55 106/ul Critically high 4.20-5.40 [facility] Comment on above: Performed By: #### C VDTBH #### [facility] [address] [place] [address] Dr. Kesha Aguero WBC 8.0 103/ul Normal 4.0-11.0 [facility] Comment on above: Performed By: #### C VDTBH #### [facility] [address] [place] [address] Dr. Kesha Aguero Covid-19 PCR ([facility])on 08-01 SARS-CoV-2 (COVID-19) RNA YARA+probe Ql (Unsp spec) Not detected Normal NOT DETECTED [facility] Comment on above: Result Comment: When diagnostic testing is negative, the possibility of a false negative should be considered in the context of a patient's recent exposures and the presence of clinical signs and symptoms consistent with SARS-CoV-2. This test is not yet approved or cleared by the [place] FDA. When there are no FDA-approved or cleared tests available, and other criteria are met, FDA can make tests available under an emergency access mechanism called an Emergency Use Authorization (EUA). The EUA for this test is supported by the [place] of Health and Human Service's declaration that circumstances exist to justify the emergency use of in vitro diagnostics for the detection and/or diagnosis of the virus that causes COVID-19. This EUA will remain in effect for the duration of the COVID-19 declaration justifying emergency of IVDs, unless it is terminated or revoked by the FDA (after which the test may no longer be used). Performed By: #### C VDTBH #### [facility] [address] [place] [address] Dr. Kesha Aguero POINT OF CARE GLUCOSEon 08-01 Glucose [Mass/Vol] 157 mg/dL Critically high 74-106 [facility] Comment on above: Performed By: #### D DIM #### [facility] [address] [place] [address] Dr. Kesha Aguero Glucose [Mass/Vol] 170 mg/dL Critically high 74-106 [facility] Comment on above: Performed By: #### C VDTBH #### [facility] [address] [place] [address] Dr. Kesha Aguero PROF CHEM 8 (BAS METB)on Anion gap [Moles/Vol] 14.2 mmol/L Normal [facility] Comment on above: Performed By: #### C VDTBH #### [facility] [address] [place] [address] Dr. Kesha Aguero Calcium [Mass/Vol] 9.8 mg/dL Normal 8.5-10.1 [facility] Comment on above: Performed By: #### C VDTBH #### [facility] [address] [place] [address] Dr. Kesha Aguero Chloride [Moles/Vol] 104 mmol/L Normal 98-107 [facility] Comment on above: Performed By: #### C VDTBH #### [facility] [address] [place] [address] Dr. Kesha Aguero CO2 [Moles/Vol] 25.6 mmol/L Normal 21.0-32.0 [facility] Comment on above: Performed By: #### C VDTBH #### [facility] [address] [place] [address] Dr. Kesha Aguero Creatinine [Mass/Vol] 1.00 mg/dL Normal 0.55-1.02 [facility] Comment on above: Performed By: #### C VDTBH #### [facility] [address] [place] [address] Dr. Kesha Aguero EGFR-AF CAMBODIAN >60 Normal >=60 [facility] Comment on above: Performed By: #### C VDTBH #### [facility] [address] [address] [address] Kesha Aguero EGFR-NON AF CAMBODIAN 53 mL/min/1.73m2 Critically low >=60 [facility] Comment on above: Performed By: #### C VDTBH #### [facility] [address] [address] [address] Kesha Aguero Glucose [Mass/Vol] 151 mg/dL Critically high 74-106 [facility] Comment on above: Performed By: #### C VDTBH #### [facility] [address] [place] [address] Dr. Kesha Aguero Potassium [Moles/Vol] 3.8 mmol/L Normal 3.5-5.1 [facility] Comment on above: Performed By: #### C VDTBH #### [facility] [address] [address] [address] Kesha Aguero Sodium [Moles/Vol] 140 mmol/L Normal 136-145 [facility] Comment on above: Performed By: #### C VDTBH #### [facility] [address] [place] [address] Dr. Kesha Aguero Urea nitrogen [Mass/Vol] 19.0 mg/dL Critically high 7.0-18 .0 [facility] Comment on above: Performed By: #### C VDTBH #### [facility] [address] [place] [address] Dr. Kesha Aguero Urea nitrogen/Creatinine [Mass ratio] 19.0 mg/mg Normal [facility] Comment on above: Performed By: #### C VDTBH #### [facility] [address] [place] [address] Dr. Kesha Aguero PROTIMEon 08-28-2022 INR Coag (PPP) [Relative time] 0.97 {INR} Normal [facility] Comment on above: Performed By: #### C VDTBH #### [facility] [address] [place] [address] Dr. Kesha Aguero INR GUIDELINES SEE BELOW Normal [facility] Comment on above: Result Comment: GUY RED INR: 2.0 - 3.0 CONDITIONS NOT LISTED BELOW 2.5 - 3.5 FOR PROSTHETIC HEART VALVE REPLACEMENT 2.5 - 3.5 RECURRENT THROMBOSIS Performed By: #### C VDTBH #### [facility] [address] [place] [address] Dr. Kesha Aguero PT Coag (PPP) [Time] 10.5 s Normal 9.0-11.6 [facility] Comment on above: Performed By: #### C VDTBH #### [facility] [address] [place] [address] Dr. Kesha Aguero PTTon 08-28-2022 aPTT Coag (Bld) [Time] 27.1 s Normal 22.3-36.2 Th [facility] Comment on above: Performed By: #### C VDTBH #### [facility] [address] [place] [address] Dr. Kesha Aguero TROPONIN, HIGH SENSITIVITYon 08-28-2022 HSTROP 14.8 pg/mL Normal 4.0-51.3 [facility] Comment on above: Result Comment: CUT- OFF POINTS HAVE BEEN ESTABLISHED BASED ON THE FOURTH UNIVERSAL DEFINITIONS OF MYOCARDIAL INFARCTION. THE UPPER REFERENCE LIMIT (URL) OF TROPONIN, DEFINED THE 99TH PERCENTILE OF cTnI DISTRIBUTION IN A REFERENCE POPULATION, HAS BEEN CONFIRMED THE DECISION THRESHOLD FOR DC DIAGNOSIS. Performed By: #### C VDTBH #### [facility] [address] [place] [address] Dr. Kesha Aguero HSTROP 13.5 pg/mL Normal 4.0-51.3 [facility] Comment on above: Result Comment: CUT- OFF POINTS HAVE BEEN ESTABLISHED BASED ON THE FOURTH UNIVERSAL DEFINITIONS OF MYOCARDIAL INFARCTION. THE UPPER REFERENCE LIMIT (URL) OF TROPONIN, DEFINED THE 99TH PERCENTILE OF cTnI DISTRIBUTION IN A REFERENCE POPULATION, HAS BEEN CONFIRMED THE DECISION THRESHOLD FOR DC DIAGNOSIS. Performed By: #### D DIM #### [facility] [address] [place] [address] Dr. Kesha Aguero US JCARLOS DOP LEG BILon 022 US JCARLOS DOP LEG MIKE EXAMINATION: US JCARLOS DOP LEG MIKE HISTORY: Pain in bilateral lower legs COMPARISON: No relevant comparison available. TECHNIQUE: Grayscale, color and Doppler ultrasound FINDINGS: Region: Bilateral legs Thrombus: None Flow: Normal Augmentation: Normal Compressibility: Normal IMPRESSION: No deep or superficial vein thrombus identified in the legs *Exam performed in accordance with [facility] practice guidelines- Peripheral venous ultrasound, November 24, 2009. Electronically authenticated by: CARMEN LOTT Date: 2022-08-28 13:22 Normal [facility] XR CHEST 1 Von 08-28-2022 XR CHEST 1 V EXAM: CHEST 1 VIEW HISTORY: CHEST PAIN, UNSPECIFIED TECHNIQUE: Chest, one view. COMPARISON: 06/06/2022. FINDINGS: Lungs are clear. No focal consolidation, pleural effusion, or pneumothorax. Pulmonary vasculature is within normal limits. Cardiomediastinal silhouette is normal. IMPRESSION: 1. No acute cardiopulmonary disease. Electronically authenticated by: JEAN-CLAUDE OLEARY Date: 2022-08-28 08:34 Normal [facility] CT ABDOMEN WO/W CONon 2021 CT ABDOMEN WO/W CON EXAMINATION: CT ABDOMEN WO/W CON HISTORY: Disorder of adrenal gland ; left adrenal mass COMPARISON: CTA chest 06/06/2022, CT abdomen pelvis 05/09/2022 TECHNIQUE: Axial, Coronal, and Sagittal images were created without and with non-ionic intravenous contrast material. Dose reduction techniques were achieved by using automated exposure control and/or adjustment of mA and/or kV according to patient size and/or use of iterative reconstruction technique. FINDINGS: LUNG BASES: No visible pulmonary or pleural disease. LIVER: No enlargement, atrophy, abnormal density, or significant focal lesion. BILIARY: No visible dilatation or calcification. PANCREAS: No lesion, fluid collection, ductal dilatation, or atrophy. SPLEEN: No enlargement or focal lesion. ADRENALS: Overall 3.7 x 2.7 x 3.5 cm homogeneous left adrenal mass; 23, 106, and 49 Hounsfield units during noncontrast, portal venous phase, and delayed phase imaging respectively. Absolute washout: 69%. Relative washout 54%. KIDNEYS: No mass, obstruction, or calcification. BOWEL/MESENTERY: No visible mass, obstruction, or bowel wall thickening. AORTA/VASCULAR: No aneurysm or dissection. RETROPERITONEUM: No mass or adenopathy. ABDOMINAL WALL: No mass or hernia. BONES: No bony lesion or fracture. OTHER: Negative. IMPRESSION: 1. Left adrenal mass is highly suggestive of a benign adenoma. Electronically authenticated by: LOUIS QUINTANA Date: 2022-08-18 22:44 Normal [facility] CREATININEon 08-18-2022 Creatinine [Mass/Vol] 1.04 mg/dL Critically high 0.55-1.02 [facility] Comment on above: Performed By: #### C VDTBH #### [facility] [address] [address] [address] Kesha Aguero EGFR-AF CAMBODIAN >60 Normal >=60 [facility] Comment on above: Performed By: #### C VDTBH #### [facility] [address] [address] [address] Kesha Aguero EGFR-NON AF CAMBODIAN 51 mL/min/1.73m2 Critically low >=60 [facility] Comment on above: Performed By: #### C VDTBH #### [facility] [address] [address] [address] Kesha Aguero ECHOCARDIO M/2D COMPLETEon 1 10-19-2021 ECHOCARDIO M/2D COMPLETE Patient: TERE ARAGON Exam Date: 08/18/2022 : 1940 Gender:F Ordering : TAYLOR CRISOSTOMO Admission #: [id number] Family : DR RODRICK BUTLER M.D. Order #: [id number] CLICK HERE TO VIEW EXAM ECHOCARDIOGRAM REPORT PROCEDURE: CARDIO PULMONARY ECHOCARDIO M/2D COMP INDICATIONS: Chronic systolic heart failure COMPARISON: None. DESCRIPTION: COMPLETE ECHOCARDIOGRAM Real-time transthoracic echocardiography with 2D, M-mode, spectral and color flow Doppler performed. QUALITY: Technical quality was good. LEFT VENTRICLE: Normal chamber size. Moderate concentric left ventricular hypertrophy. Global left ventricular systolic function is normal. LV EF: Calculated left ventricular ejection fraction is 64% DIASTOLIC: Grade I diastolic dysfunction. ATRIAL SEPTUM: LEFT ATRIUM: Normal chamber size. RIGHT ATRIUM: Normal chamber size. RIGHT VENTRICLE: Normal chamber size. Normal right ventricular systolic function. TRICUSPID VALVE: Normal mobility and thickness. No stenosis with trivial regurgitation. No evidence of pulmonary hypertension. RVSP 22 mmHg MITRAL VALVE: Normal mobility and thickness. No mitral valve prolapse. No evidence of mitral valve stenosis. There is no mitral annular calcification. Trivial mitral regurgitation. AORTIC VALVE: Normal trileaflet appearance. No visible sclerosis. Normal leaflet mobility. No evidence of aortic valve stenosis. No aortic regurgitation. AORTIC ROOT: Normal diameter and appearance. PULMONIC VALVE: Normal thickness and mobility. No stenosis. No regurgitation. PERICARDIUM: No evidence of pericardial effusion. IVC: Collapses with inspirations. Normal size. PLEURA: CONCLUSION: 1. Ventricular systolic function is normal. LVEF is 60 to 65%. 2. Mild diastolic dysfunction. 3. No significant valvular dysfunction. 4. Normal right-sided pressures. 5. No pericardial effusion. Adult Echocardiography Procedure Report Left Ventricle LVEDD (3.7 - 5.6 cm): 3.89 cm LVESD (2.2 - 4.0 cm): 2.79 cm LVIVS thickness (0.6 - 1.2 cm): 1.42 cm LVPW thickness (0.5 - 1.0 cm): 1.22 cm e': 0.07 m/s E - e': 7.58 LVOT Max Gradient: 2.81 mm[Hg] Peak Velocity (LVOT): 0.84 m/s Mean Velocity (LVOT): 0.56 m/s LVOT Diameter 1.97 cm Left Ventricular Ejection Fraction: 60-65% Left Atrium LA Volume Index (2D A2C): 46.77 ml, 46.77 ml Left Atrium Systolic Dimension: 3.06 cm Mitral Valve MV E to A Ratio: 0.63 Mitral Valve A-Wave Peak Velocity: 0.89 m/s Mitral Valve E-Wave Peak Velocity: 0.56 m/s Right Ventricle RV Internal Diastolic Dimension: 2.91 cm Aorta AO Root Diam: 2.86 cm Ascending Ao Diam: 2.46 cm Aortic Valve AoV Area (Peak Gaby): 1.52 cm2, 1.52 cm2 AoV Area (VTI): 1.87 cm2, 1.87 cm2 Peak Velocity(Antegrade Flow): 1.69 m/s Peak Gradient(Antegrade Flow): 11.39 mm[Hg] Mean Velocity(Antegrade Flow): 1.15 m/s Mean Gradient(Antegrade Flow): 5.98 mm[Hg] Velocity Time Integral: 37.56 cm Tricuspid Valve Peak Velocity (Regurgitant Flow): 2.18 m/s, 2.16 m/s, 1.89 m/s Peak Velocity: 0.38 m/s Pulmonic Valve Mean Gradient: 3.22 mm[Hg], 3.71 mm[Hg] Mean Velocity: 0.83 m/s, 0.88 m/s Peak Velocity: 1.21 m/s, 1.35 m/s Peak Gradient: 5.88 mm[Hg], 7.32 mm[Hg] Right Atrium Right Atrium Systolic Pressure: 35.93 ml, 35.93 ml Dictated by: Enrique Jackson M.D. on 08/21/2022 at 15:15 Approved by: Enrique Jackson M.D. on 08/21/2022 at 15:17 Normal [facility] ALDOSTERONE: RENIN RATIOon 1 Aldos/Renin Ratio 2.5 Normal 0.0-30.0 [facility] Comment on above: Result Comment: Unit s: ng/dL per ng/mL/hr Performed By: #### A LDOREN #### [facility] [address] [address] [address] Kesha Aguero Aldosterone 7.4 ng/dL Normal 0.0-30.0 [facility] Comment on above: Performed By: #### A LDOREN #### [facility] [address] [place] [address] Dr. Kesha Aguero Renin Activity, Plasma 3.015 ng/mL/hr Normal 0.167-5.3 80 [facility] Comment on above: Performed By: #### A LDOREN #### [facility] [address] [address] [address] Kesha Aguero METANEPHRINES PLASMA FREEon 06-18-2022 Metanephrine, Pl 11.8 pg/mL Normal 0.0-88.0 [facility] Comment on above: Performed By: #### A CETON #### [facility] [address] [place] [address] Dr. Kesha Aguero Normetanephrine, Pl 103.3 pg/mL Normal 0.0-297.2 [facility] Comment on above: Performed By: #### A CETON #### [facility] [address] [address] [address] Kesha Aguero CORTISOLon 06-12-2022 Cortisol 5.5 ug/dL Normal [facility] Comment on above: Result Comment: Clement isol AM 6.2 - 19.4 Cortisol PM 2.3 - 11.9 Performed By: #### C VDTBH #### [facility] [address] [address] [address] Kesha Aguero PROF CHEM 8 (BAS METB)on Anion gap [Moles/Vol] 14.4 mmol/L Normal [facility] Comment on above: Performed By: #### A LDOREN #### [facility] [address] [place] [address] Dr. Kesha Aguero Calcium [Mass/Vol] 9.6 mg/dL Normal 8.5-10.1 [facility] Comment on above: Performed By: #### A LDOREN #### [facility] [address] [address] [address] Kesha Aguero Chloride [Moles/Vol] 103 mmol/L Normal 98-107 [facility] Comment on above: Performed By: #### A LDOREN #### [facility] [address] [address] [address] Kesha Aguero CO2 [Moles/Vol] 24.3 mmol/L Normal 21.0-32.0 [facility] Comment on above: Performed By: #### A LDOREN #### [facility] [address] [address] [address] Kesha Aguero Creatinine [Mass/Vol] 1.24 mg/dL Critically high 0.55-1.02 [facility] Comment on above: Performed By: #### A LDOREN #### [facility] [address] [place] [address] Dr. Kesha Aguero EGFR-AF CAMBODIAN 50 mL/min/1.73m2 Critically low >=60 [facility] Comment on above: Performed By: #### A LDOREN #### [facility] [address] [place] [address] Dr. Kesha Aguero EGFR-NON AF CAMBODIAN 41 mL/min/1.73m2 Critically low >=60 [facility] Comment on above: Performed By: #### A LDOREN #### [facility] [address] [address] [address] Kesha Aguero Glucose [Mass/Vol] 215 mg/dL Critically high 74-106 [facility] Comment on above: Performed By: #### A LDOREN #### [facility] [address] [address] [address] Kesha Aguero Potassium [Moles/Vol] 4.7 mmol/L Normal 3.5-5.1 [facility] Comment on above: Performed By: #### A LDOREN #### [facility] [address] [address] [address] Kesha Aguero Sodium [Moles/Vol] 137 mmol/L Normal 136-145 [facility] Comment on above: Performed By: #### A LDOREN #### [facility] [address] [address] [address] Kesha Aguero Urea nitrogen [Mass/Vol] 21.0 mg/dL Critically high 7.0-18 .0 [facility] Comment on above: Performed By: #### A LDOREN #### [facility] [address] [address] [address] Kesha Aguero Urea nitrogen/Creatinine [Mass ratio] 16.9 mg/mg Normal [facility] Comment on above: Performed By: #### A LDOREN #### [facility] [address] [address] [address] Kesha Aguero CARDIAC KARLIE 3-6on 2 CK [Catalytic activity/Vol] 77 U/L Normal 26-192 [facility] Comment on above: Performed By: #### D DIM #### [facility] [address] [address] [address] Kesha Aguero CK.MB [Mass/Vol] 1.64 ng/mL Normal <=3.60 [facility] Comment on above: Performed By: #### D DIM #### [facility] [address] [place] [address] Dr. Kesha Aguero HSTROP 16.0 pg/mL Normal 4.0-51.3 [facility] Comment on above: Result Comment: CUT- OFF POINTS HAVE BEEN ESTABLISHED BASED ON THE FOURTH UNIVERSAL DEFINITIONS OF MYOCARDIAL INFARCTION. THE UPPER REFERENCE LIMIT (URL) OF TROPONIN, DEFINED THE 99TH PERCENTILE OF cTnI DISTRIBUTION IN A REFERENCE POPULATION, HAS BEEN CONFIRMED THE DECISION THRESHOLD FOR DC DIAGNOSIS. Performed By: #### D DIM #### [facility] [address] [place] [address] Dr. Kesha Aguero CARDIAC KARLIE ADMITon 022 CK [Catalytic activity/Vol] 86 U/L Normal 26-192 [facility] Comment on above: Performed By: #### A CETON #### [facility] [address] [place] [address] Dr. Kesha Aguero CK.MB [Mass/Vol] 2.10 ng/mL Normal <=3.60 [facility] Comment on above: Performed By: #### A CETON #### [facility] [address] [place] [address] Dr. Kesha Aguero HSTROP 13.3 pg/mL Normal 4.0-51.3 [facility] Comment on above: Result Comment: CUT- OFF POINTS HAVE BEEN ESTABLISHED BASED ON THE FOURTH UNIVERSAL DEFINITIONS OF MYOCARDIAL INFARCTION. THE UPPER REFERENCE LIMIT (URL) OF TROPONIN, DEFINED THE 99TH PERCENTILE OF cTnI DISTRIBUTION IN A REFERENCE POPULATION, HAS BEEN CONFIRMED THE DECISION THRESHOLD FOR DC DIAGNOSIS. Performed By: #### A CETON #### [facility] [address] [place] [address] Dr. Kesha Aguero ELIAS 78 ng/mL Normal 9-82 [facility] Comment on above: Performed By: #### A CETON #### [facility] [address] [place] [address] Dr. Kesha Aguero CBC AUTO DIFFon 06-06-2022 BASO # 0.0 103/ul Normal 0.0-0.1 [facility] Comment on above: Performed By: #### C VDTBH #### [facility] [address] [place] [address] Dr. Kesha Aguero Basophils/100 WBC (Bld) 0.4 % Normal 0.2-2.0 [facility] Comment on above: Performed By: #### C VDTBH #### [facility] [address] [place] [address] Dr. Kesha Aguero EO # 0.1 103/ul Normal 0.0-0.7 [facility] Comment on above: Performed By: #### C VDTBH #### [facility] [address] [place] [address] Dr. Kesha Aguero Eosinophils/100 WBC (Bld) 1.8 % Normal 0.9-7.0 [facility] Comment on above: Performed By: #### C VDTBH #### [facility] [address] [place] [address] Dr. Kesha Aguero Erythrocyte distribution width (RBC) [Ratio] 13.9 % Normal 11.0-15.0 [facility] Comment on above: Performed By: #### C VDTBH #### [facility] [address] [place] [address] Dr. Kesha Aguero Hematocrit (Bld) [Volume fraction] 40.7 % Normal 36.0-48.0 [facility] Comment on above: Performed By: #### C VDTBH #### [facility] [address] [place] [address] Dr. Kesha Aguero Hemoglobin (Bld) [Mass/Vol] 12.9 g/dL Normal 12.0-16.0 [facility] Comment on above: Performed By: #### C VDTBH #### [facility] [address] [place] [address] Dr. Kesha Aguero IG # 0.01 10e3/ul Normal 0.00-0.03 [facility] Comment on above: Performed By: #### C VDTBH #### [facility] [address] [place] [address] Dr. Kesha Aguero IG % 0.1 % Normal 0.0-0.5 [facility] Comment on above: Performed By: #### C VDTBH #### [facility] [address] [address] [address] Kesha Aguero LYMPH # 2.6 103/ul Normal 1.2-3.8 [facility] Comment on above: Performed By: #### C VDTBH #### [facility] [address] [address] [address] Kesha Aguero Lymphocytes/100 WBC (Bld) 33.6 % Normal 20.5-60.0 [facility] Comment on above: Performed By: #### C VDTBH #### [facility] [address] [address] [address] Kesha Aguero MANUAL DIFF REQ NO Normal [facility] Comment on above: Performed By: #### C VDTBH #### [facility] [address] [place] [address] Dr. Kesha Aguero MCH (RBC) [Entitic mass] 26.5 pg Critically low 26.7-34 .0 [facility] Comment on above: Performed By: #### C VDTBH #### [facility] [address] [place] [address] Dr. Kesha Aguero MCHC (RBC) [Mass/Vol] 31.7 g/dL Normal 29.9-35.2 [facility] Comment on above: Performed By: #### C VDTBH #### [facility] [address] [place] [address] Dr. Kesha Aguero MCV (RBC) [Entitic vol] 83.6 fL Normal 81.0-99.0 [facility] Comment on above: Performed By: #### C VDTBH #### [facility] [address] [place] [address] Dr. Kesha Aguero MONO # 0.6 103/ul Normal 0.3-0.8 [facility] Comment on above: Performed By: #### C VDTBH #### [facility] [address] [address] [address] Kesha Aguero Monocytes/100 WBC (Bld) 7.7 % Normal 1.7-12.0 [facility] Comment on above: Performed By: #### C VDTBH #### [facility] [address] [address] [address] Kesha Aguero NEUT # 4.3 103/ul Normal 1.4-6.5 [facility] Comment on above: Performed By: #### C VDTBH #### [facility] [address] [address] [address] Kesha Aguero Neutrophils/100 WBC (Bld) 56.4 % Normal 43.0-75.0 [facility] Comment on above: Performed By: #### C VDTBH #### [facility] [address] [place] [address] Dr. Kesha Aguero Platelet mean volume (Bld) [Entitic vol] 11.2 fL Normal 9.5-13.5 [facility] Comment on above: Performed By: #### C VDTBH #### [facility] [address] [place] [address] Dr. Kesha Aguero PLT 267 103/ul Normal 150-450 [facility] Comment on above: Performed By: #### C VDTBH #### [facility] [address] [place] [address] Dr. Kesha Aguero RBC 4.87 106/ul Normal 4.20-5.40 [facility] Comment on above: Performed By: #### C VDTBH #### [facility] [address] [place] [address] Dr. Kesha Aguero WBC 7.7 103/ul Normal 4.0-11.0 [facility] Comment on above: Performed By: #### C VDTBH #### [facility] [address] [place] [address] Dr. Kesha Aguero CTA CHEST WO W CONon 022 CTA CHEST WO W CON EXAMINATION: CTA CHEST WO W CON, 06/06/2022 1:31 AM EDT HISTORY: CHEST PAIN, UNSPECIFIED elevated d-dimer. COMPARISON: Chest x-ray earlier today. CTA chest 05/09/2022. TECHNIQUE: CT angiography of the chest was performed with IV contrast. MIP (maximum intensity projection) images or 3D post processing was performed. CT dose reduction technique was used, including Automated Exposure Control. FINDINGS: PULMONARY ARTERIES: There is excellent opacification of the pulmonary vasculature. No abnormal vascular cut-offs or filing defects to suggest presence of pulmonary emboli. Pulmonary trunk measures 2.6 CM. AORTA: Thoracic aorta is normal in course and caliber. Mild/moderate calcific and some soft plaque seen, mostly in the descending aorta, without evidence for dissection flap. MEDIASTINUM: Thyroid appears slightly heterogeneous with small coarse calcification on the left. Trachea and central airways are patent. Heart is normal in size without pericardial effusion. Mild/moderate coronary arterial calcifications and/or stents. No mediastinal or hilar lymphadenopathy. PLEURAL CAVITY: No pneumothorax. No pleural effusion. LUNGS: Lungs are free of a clearly consolidative process. Dependent opacities in the lungs most suggestive of atelectasis. CHEST WALL/AXILLA: No axillary lymphadenopathy VISUALIZED UPPER ABDOMEN: No acute findings. Stable 3.6 cm left adrenal mass with attenuation about 55 Hounsfield units on this angiographic phase study, of indeterminate etiology. BONES: No evidence of destructive lesions. Small densities in the right humeral head likely relate to bone islands. Mild diffuse degenerative changes. IMPRESSION: 1. No evidence of pulmonary embolus or aortic dissection. 2. No other acute CT abnormality of the chest. 3. Moderate atherosclerotic disease as above. 4. Grossly stable indeterminate 3.6 cm left adrenal mass. Correlation with outpatient adrenal mass protocol CT or MRI again recommended for further assessment. Electronically authenticated by: CHRISTINA MESSINA Date: 2022-06-06 03:54 Normal [facility] Covid-19 PCR (CVDTB)on SARS-CoV-2 (COVID-19) RNA YARA+probe Ql (Unsp spec) Not detected Normal NOT DETECTED [facility] Comment on above: Result Comment: When diagnostic testing is negative, the possibility of a false negative should be considered in the context of a patient's recent exposures and the presence of clinical signs and symptoms consistent with SARS-CoV-2. This test is not yet approved or cleared by the [place] FDA. When there are no FDA-approved or cleared tests available, and other criteria are met, FDA can make tests available under an emergency access mechanism called an Emergency Use Authorization (EUA). The EUA for this test is supported by the [place] of Health and Human Service's declaration that circumstances exist to justify the emergency use of in vitro diagnostics for the detection and/or diagnosis of the virus that causes COVID-19. This EUA will remain in effect for the duration of the COVID-19 declaration justifying emergency of IVDs, unless it is terminated or revoked by the FDA (after which the test may no longer be used). Performed By: #### C VDTBH #### [facility] [address] [place] [address] Dr. Kesha Aguero D-DIMERon 06-06-2022 D-DIMER 0.86 mg/L FEU Critically high <=0.59 [facility] Comment on above: Performed By: #### D DIM #### [facility] [address] [place] [address] Dr. Kesha Aguero D-DIMER COMMENTS SEE BELOW Normal [facility] Comment on above: Result Comment: Incr eases in D-Dimer concentration observed with thromboembolic events can be variable due to localization, size, and age of the thrombus. Therefore, a thromboembolic event cannot be diagnosed with certainty on the basis of the reference range. D-Dimers may also be elevated for a variety of disorders including: advanced age, , coronary disease, cancer, liver disease, infection, inflammation, hematoma, DIC, trauma, post-surgery, diabetes, thrombolytic or anticoagulant therapy, stress, and generalized hospitalization. Performed By: #### D DIM #### [facility] [address] [place] [address] Dr. Kesha Aguero PROF CHEM 8 (BAS METB)on Anion gap [Moles/Vol] 13.1 mmol/L Normal [facility] Comment on above: Performed By: #### A CETON #### [facility] [address] [place] [address] Dr. Kesha Aguero Calcium [Mass/Vol] 10.0 mg/dL Normal 8.5-10.1 [facility] Comment on above: Performed By: #### A CETON #### [facility] [address] [place] [address] Dr. Kesha Aguero Chloride [Moles/Vol] 106 mmol/L Normal 98-107 [facility] Comment on above: Performed By: #### A CETON #### [facility] [address] [address] [address] Kesha Aguero CO2 [Moles/Vol] 24.9 mmol/L Normal 21.0-32.0 [facility] Comment on above: Performed By: #### A CETON #### [facility] [address] [address] [address] Kesha Aguero Creatinine [Mass/Vol] 1.14 mg/dL Critically high 0.55-1.02 [facility] Comment on above: Performed By: #### A CETON #### [facility] [address] [address] [address] Kesha Aguero EGFR-AF CAMBODIAN 55 mL/min/1.73m2 Critically low >=60 [facility] Comment on above: Performed By: #### A CETON #### [facility] [address] [address] [address] Kesha Aguero EGFR-NON AF CAMBODIAN 46 mL/min/1.73m2 Critically low >=60 [facility] Comment on above: Performed By: #### A CETON #### [facility] [address] [address] [address] Kesha Aguero Glucose [Mass/Vol] 181 mg/dL Critically high 74-106 [facility] Comment on above: Performed By: #### A CETON #### [facility] [address] [address] [address] Kesha Aguero Potassium [Moles/Vol] 4.0 mmol/L Normal 3.5-5.1 [facility] Comment on above: Performed By: #### A CETON #### [facility] [address] [address] [address] Kesha Aguero Sodium [Moles/Vol] 140 mmol/L Normal 136-145 [facility] Comment on above: Performed By: #### A CETON #### [facility] [address] [address] [address] Kesha Aguero Urea nitrogen [Mass/Vol] 24.0 mg/dL Critically high 7.0-18 .0 [facility] Comment on above: Performed By: #### A CETON #### [facility] [address] [address] [address] Kesha Aguero Urea nitrogen/Creatinine [Mass ratio] 21.1 mg/mg Normal [facility] Comment on above: Performed By: #### A CETON #### [facility] [address] [address] [address] Kesha Aguero TROPONIN, HIGH SENSITIVITYon 06-06-2022 HSTROP 16.7 pg/mL Normal 4.0-51.3 [facility] Comment on above: Result Comment: CUT- OFF POINTS HAVE BEEN ESTABLISHED BASED ON THE FOURTH UNIVERSAL DEFINITIONS OF MYOCARDIAL INFARCTION. THE UPPER REFERENCE LIMIT (URL) OF TROPONIN, DEFINED THE 99TH PERCENTILE OF cTnI DISTRIBUTION IN A REFERENCE POPULATION, HAS BEEN CONFIRMED THE DECISION THRESHOLD FOR DC DIAGNOSIS. Performed By: #### A LDOREN #### [facility] [address] [address] [address] Kesha Aguero XR CHEST 1 Von 06-06-2022 XR CHEST 1 V EXAM: XR CHEST 1 V HISTORY: CHEST PAIN, UNSPECIFIED COMPARISON: None. TECHNIQUE: Chest single view. FINDINGS: Lines/tubes/devices: EKG leads overlie the chest. No indwelling lines are seen. Cardiomediastinum: Heart size is normal. Unremarkable mediastinal silhouette. Vasculature: Normal. Lungs/pleura: No consolidation, sizeable effusion, or visible pneumothorax. Bones/soft tissues: Bony thorax appears grossly intact as seen. IMPRESSION: No acute cardiopulmonary findings. Electronically authenticated by: CHRISTINA MESSINA Date: 2022-06-06 02:23 Normal [facility] Activated partial thrombopla stin time (aPTT) in platelet poor plasma by coagulation aOrdered By: Herminia Lawler on 05-11-2022 aPTT Coag (PPP) [Time] 43.7 s 25.1-36.5 [facility] Basic Metabolic Panelon 05-01 Anion gap [Moles/Vol] 13.6 mmol/L Normal 6.0-15.0 [facility] Comment on above: Performed By: #### A 1C WT eA, CBC, PT, CMP, PHOS, MG, LIPID #### [facility] [address] Calcium [Mass/Vol] 9.8 mg/dL Normal 8.2-10.2 [facility] Comment on above: Performed By: #### A 1C WTH eA, CBC, PT, CMP, PHOS, MG, LIPID #### [facility] [address] Chloride [Moles/Vol] 107 mmol/L Normal 95-114 [facility] Comment on above: Performed By: #### A 1C WTH eA, CBC, PT, CMP, PHOS, MG, LIPID #### [facility] [address] CO2 [Moles/Vol] 20.2 mmol/L Low 22.0-30.0 [facility] Comment on above: Performed By: #### A 1C WTH eA, CBC, PT, CMP, PHOS, MG, LIPID #### [address] Creatinine [Mass/Vol] 0.97 mg/dL Normal 0.44-1.03 [facility] Comment on above: Performed By: #### A 1C WTH eA, CBC, PT, CMP, PHOS, MG, LIPID #### [address] Creatinine Clr Calc Pharmacy 42.73 [facility] Comment on above: Performed By: #### A 1C WTH eA, CBC, PT, CMP, PHOS, MG, LIPID #### [facility] [address] Estimated GFR ( Georgina > 60 [facility] Comment on above: Result Comment: GFR estimated reference range: According to KDOQI guidelines, <60 ml/min/1.73m2 is sufficient to diagnose a patient with chronic kidney disease. Performed By: #### A 1C WTH eA, CBC, PT, CMP, PHOS, MG, LIPID #### [facility] [address] Estimated GFR (Non- Am 55 [facility] Comment on above: Performed By: #### A 1C WTH eA, CBC, PT, CMP, PHOS, MG, LIPID #### [facility] [address] [place] [address] [place] Glucose [Mass/Vol] 187 mg/dL High 70-100 [facility] Comment on above: Result Comment: [place] Glucose Reference Range is dependent on time and content of last meal. Glucose of more than 200 mg/dL in a nonstressed, ambulatory subject supports the diagnosis of Diabetes Mellitus. ADA recommended reference range Performed By: #### A 1C WTH eA, CBC, PT, CMP, PHOS, MG, LIPID #### [facility] [address] Potassium [Moles/Vol] 3.8 mmol/L Normal 3.5-5.1 [facility] Comment on above: Performed By: #### A 1C WTH eA, CBC, PT, CMP, PHOS, MG, LIPID #### [facility] [address] Sodium [Moles/Vol] 137 mmol/L Normal 136-146 [facility] Comment on above: Performed By: #### A 1C WTH eA, CBC, PT, CMP, PHOS, MG, LIPID #### [facility] [address] Urea nitrogen [Mass/Vol] 21 mg/dL Normal 9-23 [facility] Comment on above: Performed By: #### A 1C WT eA, CBC, PT, CMP, PHOS, MG, LIPID #### [facility] [address] Creatinine and Glomerular fi ltration rate.predicted panel (S/P/Bld)Ordered By: Herminia Lawler on 05-11-2022 Creatinine [Mass/Vol] 0.97 mg/dL 0.44-1.03 [facility] ECG 12 lead ECGon 05-11-2022 ECG 12 lead ECG [facility] [place] [address] [place] [address] Electrocardiograph Report Signed Patient: Tere Aragon MR#: [id number] [birth year] : 1940 Acct:[id number] Age/Sex: 82 / F ADM Date: 05/09/22 Loc: Room: [address] [place] [address] Type: DIS IN Attending Dr: Herminia Lawler MD Ordering Provider: Herimnia Lawler MD Date of Service: 05/11/2207/22/542 ECG/ECG 12 lead ECG: pt evalulation Copies to: Test Reason : Blood Pressure : / mmHG Vent. 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) Abnormal ECG When compared with ECG of 11-MAY-2022 01:09, (Unconfirmed) No significant change was found Confirmed by NEO MAJANO MD ([id number]) on 05/11/2022 10:55:14 AM Referred By: NO Electronically Signed By:NEO MAJANO MD Transcribed By: [facility] Signed By Neo Majano MD 1055 Normal [facility] ECG 12 lead [place] [address] Electrocardiograph Report Signed Patient: Tere Aragon MR#: [id number] 45 : 1940 Acct:[id number] Age/Sex: 82 / F ADM Date: 05/09/22 Loc: Room: [address] [place] [address] Type: DIS IN Attending Dr: Herminia Lawler MD Ordering Provider: Herminia Lawler MD Date of Service: 05/11/2207/22/1309 ECG/ECG 12 lead ECG: pt evalulation Copies to: Test Reason : Blood Pressure : / mmHG Vent. 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) Abnormal ECG When compared with ECG of 10-MAY-2022 08:13, No significant change was found Confirmed by NEO MAJANO MD ([id number]) on 05/11/2022 10:54:06 AM Referred By: NOBenjamin Electronically Signed By:NEO MAJANO MD Transcribed By: [facility] Signed By Neo Majano MD 1054 Normal [facility] Estimated glomerular filtrat ion rate (GFR) non- AmericanOrdered By: Herminia Lawler on 05-11-2022 GFR/1.73 sq M.predicted among non-blacks MDRD (S/P/Bld) [Vol rate/Area] 55 mL/Min [facility] Glucose Glucometer (BldC) [M ass/Vol]Ordered By: Herminia Lawler on 05-11-2022 Glucose [Mass/Vol] 281 mg/dL [facility] Comment on above: Random Glucose Refer ence Range is dependent on time and content of last meal. Glucose of more than 200 mg/dL in a nonstressed, ambulatory subject supports the diagnosis of Diabetes Mellitus. Glucose Poct Glucometerson 0 05-11-2022 Glucose [Mass/Vol] 281 mg/dL Normal [facility] Comment on above: Result Comment: [place] Glucose Reference Range is dependent on time and content of last meal. Glucose of more than 200 mg/dL in a nonstressed, ambulatory subject supports the diagnosis of Diabetes Mellitus. PERFORMED BY: [place] [address] PATHOLOGIST PICKER / PACKER LORENA MONDRAGON M.D. Performed By: #### A 1C [facility] eA, CBC, PT, CMP, PHOS, MG, LIPID #### [address] Glucose [Mass/Vol] 109 mg/dL Normal [facility] Comment on above: Result Comment: [place] Glucose Reference Range is dependent on time and content of last meal. Glucose of more than 200 mg/dL in a nonstressed, ambulatory subject supports the diagnosis of Diabetes Mellitus. PERFORMED BY: [place] [address] PATHOLOGIST PICKER / PACKER LORENA MONDRAGON M.D. Performed By: #### A 1C WTH eA, CBC, PT, CMP, PHOS, MG, LIPID #### [facility] [address] [place] [address] Laboratory - Chemistry and C hemistry - challengeOrdered By: Herminia Lawler on 05-11-2022 Magnesium [Mass/Vol] 1.7 mg/dL 1.6-2.6 [facility] Magnesiumon 05-11-2022 Magnesium [Mass/Vol] 1.7 mg/dL Normal 1.6-2.6 [facility] Comment on above: Result Comment: PERF ORMED BY: [place] [address] PATHOLOGIST PICKER / PACKER LORENA MONDRAGON M.D. Performed By: #### A 1C WTH eA, CBC, PT, CMP, PHOS, MG, LIPID #### [facility] [address] [place] [address] No Panel InformationOrdered By: Herminia Lawler on 05-11-2022 Estimated GFR () > 60 mL/Min [facility] Comment on above: GFR estimated refere nce range: According to KDOQI guidelines, <60 ml/min/1.73m2 is sufficient to diagnose a patient with chronic kidney disease. Pharmacy Creatinine Clearance (Chem 42.73 [facility] Partial Thromboplastin Timeo n 05-11-2022 aPTT Coag (Bld) [Time] 43.7 s High 25.1-36.5 [facility] Comment on above: Result Comment: PERF ORMED BY: [place] [address] PATHOLOGIST PICKER / PACKER LORENA MONDRAGON M.D. Performed By: #### A 1C WTH eA, CBC, PT, CMP, PHOS, MG, LIPID #### [facility] [address] Serum or plasma anion gap de terminationOrdered By: Herminia Lawler on 05-11-2022 Anion gap [Moles/Vol] 13.6 mmol/L 6.0-15.0 [facility] Serum or plasma calcium kristi urement (mass/volume)Ordered By: Herminia Lawler on 05-11-2022 Calcium [Mass/Vol] 9.8 mg/dL 8.2-10.2 [facility] Serum or plasma chloride dorys surement (moles/volume)Ordered By: Herminia Lawler on 05-11-2022 Chloride [Moles/Vol] 107 mmol/L 95-114 [facility] Serum or plasma glucose kristi urement (mass/volume)Ordered By: Herminia Lawler on 05-11-2022 Glucose [Mass/Vol] 187 mg/dL 70-100 [facility] Comment on above: ADA recommended refe rence range Random Glucose Reference Range is dependent on time and content of last meal. Glucose of more than 200 mg/dL in a nonstressed, ambulatory subject supports the diagnosis of Diabetes Mellitus. Serum or plasma potassium me asurement (moles/volume)Ordered By: Herminia Lawler on 05-11-2022 Potassium [Moles/Vol] 3.8 mmol/L 3.5-5.1 [facility] Serum or plasma sodium measu rement (moles/volume)Ordered By: Herminia Lawler on 05-11-2022 Sodium [Moles/Vol] 137 mmol/L 136-146 [facility] Serum or plasma total carbon dioxide measurement (moles/volume)Ordered By: Herminia Lawler on 05-11-2022 CO2 [Moles/Vol] 20.2 mmol/L 22.0-30.0 [facility] Serum or plasma urea nitroge n measurement (mass/volume)Ordered By: Herminia Lawler on 05-11-2022 Urea nitrogen [Mass/Vol] 21 mg/dL 9-23 [facility] Troponin I High Sensitivityo n 05-11-2022 Troponin I High Sensitivity 97 pg/mL Off scale high 0-15 [facility] Comment on above: Result Comment: Resu lts called at 0602 on 05/11/22 PERFORMED BY: [facility] [address] [place] [address] PATHOLOGIST PICKER / PACKER LORENA MONDRAGON M.D. Performed By: #### A 1C WT eA, CBC, PT, CMP, PHOS, MG, LIPID #### [facility] [address] Troponin I.cardiac [Mass/vol ume] in Serum or Plasma by High sensitivity methodOrdered By: Itz Arguello on 05-11-2022 Troponin I.cardiac High sensitivity method [Mass/Vol] 97 pg/mL 0- [facility] Comment on above: Results called at 0602 on 05/11/22 Albumin [Mass/volume] in Ser um or PlasmaOrdered By: Obdarindabenjamin Perezomar on 05-10-2022 Albumin [Mass/Vol] 2.9 g/dL 3.2-5.5 [facility] Basophils Auto (Bld) [#/Vol] Ordered By: Obaydah Daromar on 05-10-2022 Basophils (Bld) [#/Vol] 0.2 10*3/uL 0.0-0.2 [facility] Basophils/100 WBC Auto (Bld) Ordered By: Obaydah Daromar on 05-10-2022 Basophils/100 WBC (Bld) 2.8 % . [facility] Blood hemoglobin measurement (mass/volume)Ordered By: Obaydah Daromar on 05-10-2022 Hemoglobin (Bld) [Mass/Vol] 12.4 g/dL 11.8-15.4 [facility] Blood leukocytes automated c ount (number/volume)Ordered By: Obaydah Daromar on 05-10-2022 WBC (Bld) [#/Vol] 7.0 10*3/uL 4.5-11.0 [facility] Complete Blood Count Auto Di ffon 05-10-2022 Basophils (Bld) [#/Vol] 0.2 10*3/uL Normal 0.0-0.2 [facility] Comment on above: Order Comment: draw at 0530 Result Comment: PERF ORMED BY: [place] [address] PATHOLOGIST PICKER / PACKER LORENA MONDRAGON M.D. Performed By: #### C MP, MG, CBC #### [address] Basophils/100 WBC (Bld) 2.8 % Normal . [facility] Comment on above: Order Comment: draw at 0530 Performed By: #### C MP, MG, CBC #### [address] Eosinophils (Bld) [#/Vol] 0.2 10*3/uL Normal 0.0-0.45 [facility] Comment on above: Order Comment: draw at 0530 Performed By: #### C MP, MG, CBC #### [address] Eosinophils/100 WBC (Bld) 2.7 % Normal . [facility] Comment on above: Order Comment: draw at 0530 Performed By: #### C MP, MG, CBC #### [address] Erythrocyte distribution width (RBC) [Ratio] 15.2 % Normal 11.9-15.3 [facility] Comment on above: Order Comment: draw at 0530 Performed By: #### C MP, MG, CBC #### [address] Hematocrit (Bld) [Volume fraction] 37.8 % Normal 34.0-46.4 [facility] Comment on above: Order Comment: draw at 0530 Performed By: #### C MP, MG, CBC #### [address] Hemoglobin (Bld) [Mass/Vol] 12.4 g/dL Normal 11.8-15.4 [facility] Comment on above: Order Comment: draw at 0530 Performed By: #### C MP, MG, CBC #### [address] Lymphocytes (Bld) [#/Vol] 3.0 10*3/uL Normal 1.00-4.8 [facility] Comment on above: Order Comment: draw at 0530 Performed By: #### C MP, MG, CBC #### [address] Lymphocytes/100 WBC (Bld) 42.4 % Normal . [facility] Comment on above: Order Comment: draw at 0530 Performed By: #### C MP, MG, CBC #### [address] MCH (RBC) [Entitic mass] 26.4 pg Normal 24.7-34.3 [facility] Comment on above: Order Comment: draw at 0530 Performed By: #### C MP, MG, CBC #### [address] MCV (RBC) [Entitic vol] 80.5 fL Normal 80-100 [facility] Comment on above: Order Comment: draw at 0530 Performed By: #### C MP, MG, CBC #### [address] Mean Corpuscular HGB Conc 32.8 g/dL Normal 32.0-35.0 [facility] Comment on above: Order Comment: draw at 0530 Performed By: #### C MP, MG, CBC #### [address] Monocytes (Bld) [#/Vol] 0.4 10*3/uL Normal 0.0-0.8 [facility] Comment on above: Order Comment: draw at 0530 Performed By: #### C MP, MG, CBC #### [address] Monocytes/100 WBC (Bld) 6.4 % Normal . [facility] Comment on above: Order Comment: draw at 0530 Performed By: #### C MP, MG, CBC #### [place] [address] [place] Neutrophils (Bld) [#/Vol] 3.2 10*3/uL Normal 1.8-7.7 [facility] Comment on above: Order Comment: draw at 0530 Performed By: #### C MP, MG, CBC #### [address] Neutrophils/100 WBC (Bld) 45.7 % Normal . [facility] Comment on above: Order Comment: draw at 0530 Performed By: #### C MP, MG, CBC #### [place] [address] [place] Nucleated RBC/100 WBC (Bld) [Ratio] 0.3 % Normal 0-0.5 [facility] Comment on above: Order Comment: draw at 0530 Performed By: #### C MP, MG, CBC #### [address] Platelet mean volume (Bld) [Entitic vol] 8.3 fL Normal 6.3-10.7 [facility] Comment on above: Order Comment: draw at 0530 Performed By: #### C MP, MG, CBC #### [place] [address] [place] Platelets (Bld) [#/Vol] 236 10*3/uL Normal 150-450 [facility] Comment on above: Order Comment: draw at 0530 Performed By: #### C MP, MG, CBC #### [place] [address] [place] RBC (Bld) [#/Vol] 4.70 10*6/uL Normal 3.60-5.00 [facility] Comment on above: Order Comment: draw at 0530 Performed By: #### C MP, MG, CBC #### [place] [address] [place] WBC (Bld) [#/Vol] 7.0 10*3/uL Normal 4.5-11.0 [facility] Comment on above: Order Comment: draw at 0530 Performed By: #### C MP, MG, CBC #### [facility] [address] [place] [address] Comprehensive Metabolic Pane eligio 05-10-2022 Albumin [Mass/Vol] 2.9 g/dL Low 3.2-5.5 [facility] Comment on above: Order Comment: draw at 0530 Performed By: #### C MP, MG, CBC #### [facility] [address] [place] [address] Albumin/Globulin [Mass ratio] 1.0 {ratio} Normal [facility] Comment on above: Order Comment: draw at 0530 Performed By: #### C MP, MG, CBC #### [facility] [address] [place] [address] ALP [Catalytic activity/Vol] 75 U/L Normal 32-92 [facility] Comment on above: Order Comment: draw at 0530 Performed By: #### C MP, MG, CBC #### [address] ALT [Catalytic activity/Vol] 18 U/L Normal 10-60 [facility] Comment on above: Order Comment: draw at 0530 Performed By: #### C MP, MG, CBC #### [address] Anion gap [Moles/Vol] 10.8 mmol/L Normal 6.0-15.0 [facility] Comment on above: Order Comment: draw at 0530 Performed By: #### C MP, MG, CBC #### [facility] [address] [place] [address] AST [Catalytic activity/Vol] 18 U/L Normal 10-42 [facility] Comment on above: Order Comment: draw at 0530 Performed By: #### C MP, MG, CBC #### [address] Bilirubin [Mass/Vol] 0.4 mg/dL Normal 0.3-1.2 [facility] Comment on above: Order Comment: draw at 0530 Performed By: #### C MP, MG, CBC #### [facility] [address] Calcium [Mass/Vol] 9.6 mg/dL Normal 8.2-10.2 [facility] Comment on above: Order Comment: draw at 0530 Performed By: #### C MP, MG, CBC #### [facility] [address] Chloride [Moles/Vol] 109 mmol/L Normal 95-114 [facility] Comment on above: Order Comment: draw at 0530 Performed By: #### C MP, MG, CBC #### [address] CO2 [Moles/Vol] 21.9 mmol/L Low 22.0-30.0 [facility] Comment on above: Order Comment: draw at 0530 Performed By: #### C MP, MG, CBC #### [address] Creatinine [Mass/Vol] 0.78 mg/dL Normal 0.44-1.03 [facility] Comment on above: Order Comment: draw at 0530 Performed By: #### C MP, MG, CBC #### [facility] [address] [place] [address] Creatinine Clr Calc Pharmacy 51.81 [facility] Comment on above: Order Comment: draw at 0530 Performed By: #### C MP, MG, CBC #### [facility] [address] [place] [address] Estimated GFR ( Georgina > 60 [facility] Comment on above: Order Comment: draw at 0530 Result Comment: GFR estimated reference range: According to KDOQI guidelines, <60 ml/min/1.73m2 is sufficient to diagnose a patient with chronic kidney disease. Performed By: #### C MP, MG, CBC #### [address] Estimated GFR (Non- Am > 60 [facility] Comment on above: Order Comment: draw at 0530 Performed By: #### C MP, MG, CBC #### [address] [place] [address] [place] Globulin (S) [Mass/Vol] 2.9 g/dL Normal [facility] Comment on above: Order Comment: draw at 0530 Performed By: #### C MP, MG, CBC #### [facility] [address] Glucose [Mass/Vol] 102 mg/dL High 70-100 [facility] Comment on above: Order Comment: draw at 0530 Result Comment: [facility] Glucose Reference Range is dependent on time and content of last meal. Glucose of more than 200 mg/dL in a nonstressed, ambulatory subject supports the diagnosis of Diabetes Mellitus. ADA recommended reference range Performed By: #### C MP, MG, CBC #### [address] Potassium [Moles/Vol] 3.7 mmol/L Normal 3.5-5.1 [facility] Comment on above: Order Comment: draw at 0530 Performed By: #### C MP, MG, CBC #### [address] Protein [Mass/Vol] 5.8 g/dL Low 6.1-7.9 [facility] Comment on above: Order Comment: draw at 0530 Performed By: #### C MP, MG, CBC #### [address] Sodium [Moles/Vol] 138 mmol/L Normal 136-146 [facility] Comment on above: Order Comment: draw at 0530 Performed By: #### C MP, MG, CBC #### [place] [address] [place] Urea nitrogen [Mass/Vol] 18 mg/dL Normal 9-23 [facility] Comment on above: Order Comment: draw at 0530 Performed By: #### C MP, MG, CBC #### [place] [address] [place] Creatine Kinaseon 05-10-2022 CK [Catalytic activity/Vol] 48 U/L Normal 22-269 [facility] Comment on above: Performed By: #### A 1C WTH eA, CBC, PT, CMP, PHOS, MG, LIPID #### [facility] [address] CK [Catalytic activity/Vol] 53 U/L Normal [facility] Comment on above: Performed By: #### A 1C WTH eA, CBC, PT, CMP, PHOS, MG, LIPID #### [facility] [address] [place] [address] [place] Creatine kinase [Enzymatic a ctivity/volume] in Serum or PlasmaOrdered By: Darrion Gilbert on 05-10-2022 CK [Catalytic activity/Vol] 48 U/L [facility] Creatinine Kinase MBon 05-10 CK.MB [Mass/Vol] 3.3 ng/mL Normal 0.6-6.3 [facility] Comment on above: Performed By: #### A 1C WT eA, CBC, PT, CMP, PHOS, MG, LIPID #### [address] CKMB Relative Index 6.8 % High 0.00-2.50 [facility] Comment on above: Performed By: #### A 1C WT eA, CBC, PT, CMP, PHOS, MG, LIPID #### [address] CK.MB [Mass/Vol] 3.6 ng/mL Normal 0.6-6.3 [facility] Comment on above: Performed By: #### A 1C WTH eA, CBC, PT, CMP, PHOS, MG, LIPID #### [facility] [address] [place] [address] [place] CKMB Relative Index 6.7 % High 0.00-2.50 [facility] Comment on above: Performed By: #### A 1C WTH eA, CBC, PT, CMP, PHOS, MG, LIPID #### [address] ECG 12 lead ECGon 05-10-2022 ECG 12 lead ECG [facility] [address] [place] [id number] Electrocardiograph Report Signed Patient: Tere Aragon MR#: [id number] [birth year] : 1940 Acct:[id number] Age/Sex: 82 / F ADM Date: 05/09/22 Loc: Room: [address] [place] [address] Type: DIS IN Attending Dr: Herminia Lawler MD Ordering Provider: Darrion Gilbert DO Date of Service: 05/10/2206/21/500 ECG/ECG 12 lead ECG: nstemi Copies to: Test Reason : Blood Pressure : / mmHG Vent. Rate : 066 BPM Atrial Rate : 066 BPM P-R Int : 212 ms QRS Dur : 144 ms QT Int : 434 ms P-R-T Axes : 060 -63 055 degrees QTc Int : 454 ms Sinus rhythm with 1st degree AV block Right bundle branch block Left anterior fascicular block Bifascicular block Possible Anteroseptal infarct (cited on or before 09-MAY-2022) Abnormal ECG When compared with ECG of 09-MAY-2022 15:12, (Unconfirmed) Questionable change in initial forces of Anteroseptal leads T wave inversion no longer evident in Anterior leads Confirmed by NEO MAJANO MD ([id number]) on 05/10/2022 10:09:04 AM Referred By: Electronically Signed By:NEO MAJANO MD Transcribed By: MUS Signed By Neo Majano MD 1009 [facility] ECH echo transthoracicon [facility] echo transthoracic [facility] [address] [place] [id number] Echocardiogram Signed Patient: Tere Aragon MR#: [id number] [birth year] : 1940 Acct:[id number] Age/Sex: 82 / F ADM Date: 05/09/22 Loc: Room: [address] [place] [address] Type: DIS IN Attending Dr: Herminia Lawler MD Ordering Provider: Darrion Gilbert DO Date of Service: 05/09/2205/22/1310 ECH/[facility] echo transthoracic: nstemi Copies to: DO Itz Medley MD BSA: 1.8 m2 BP: 115/67 mmHg HR: 73 Reason For Study: nstemi History: cervical cancer, CAD, DM, stents Interpretation Summary The left ventricular size, thickness and function are normal Ejection Fraction = 55-60%. A variety of Doppler measurements indicate normal left ventricular diastolic function. There is mild apical wall hypokinesis. Mild valvular aortic stenosis. Procedure/Quality: A two-dimensional transthoracic echocardiogram with color flow and Doppler was performed. The study was technically good in quality. Left Ventricle: The left ventricular size, thickness and function are normal. Ejection Fraction = 55-60%. A variety of Doppler measurements indicate normal left ventricular diastolic function. There is mild apical wall hypokinesis. No left ventricular thrombus or mass is seen. Left Atrium: The left atrium appears normal in size. The atrial septum appears normal. Right Atrium: The right atrium appears normal in size. Right Ventricle: The right ventricular size, thickness and function are normal. Aortic Valve: The aortic valve is mildly calcified. Mild valvular aortic stenosis. Mitral Valve: The mitral valve is mildly sclerotic. Tricuspid Valve: The tricuspid valve is normal in structure and function. Pulmonic Valve: The pulmonic valve is not well visualized. Arteries: The aortic root is normal size. The aortic arch was visualized and no abnormalities were seen. Pericardium/Pleura: No pericardial effusion seen. There is no pleural effusion. IVC/Hepatic Viens: The inferior vena cava is normal in size, with a normal collapsibility index. Measurements with Normals IVSd: 1.0 cm (0.7-1.1 cm)LVIDd: 4.5 cm (3.7-5.4 cm) LVPWd: 1.1 cm (0.7-1.1 cm)LVIDs: 2.8 cm (2.3-3.6 cm) LA dimension: 2.8 cm (2.3-4.0 cm)Ao root diam: 2.9 cm(2.0-3.6 cm) asc Aorta Diam: 3.1 cm(2.1-3.4cm) Doppler with Normals LV V1 max: 72.0 cm/sec (0.7-1.7m/s)MV E max gaby: 63.0 cm/sec(0.8-1.3m/s) MV A max gaby: 102.8 cm/sec(0.0-0.0m/s) MV E/A: 0.61 (<1.5) MMode/2D Measurements Calculations RVDd: 2.7 cm FS: 38.2 % Ao root area: LVOT diam: 1.8 cm TAPSE: 2.0 cm EDV(Teich): 6.4 cm2 LVOT area: 2.6 cm2 RV S Gaby: 92.4 ml 10.2 cm/sec ESV(Teich): 29.1 ml EF(Teich): 68.5 % __ LVLd ap4: 8.0 cm SV(MOD-sp4): LAV(MOD-sp4): LA A2 area: 13.1 cm2 EDV(MOD-sp4): 34.7 ml 33.2 ml 52.5 ml LAV(MOD-sp2): LA A4 area: 15.6 cm2 LVLs ap4: 7.2 cm 31.7 ml LA length (vol): ESV(MOD-sp4): 6.0 cm 17.8 ml LA vol: 28.8 ml EF(MOD-sp4): 66.1 % LA vol index: 16.1 ml/m2 Doppler Measurements Calculations MV dec time: E/E' lat: MV dec slope: Ao V2 max: 0.34 sec 11.5 193.1 cm/sec E/E' med: 186.3 cm/sec2 Ao max P.9 mmHg 14.4 Ao mean P.8 mmHg Ao V2 mean: 133.2 cm/sec Ao V2 VTI: 40.6 cm ANGELI(I,D): 1.2 cm2 ANGELI(V,D): 0.96 cm2 __ LV V1 max P.1 mmHg LV V1 mean P.3 mmHg LV V1 mean: 53.4 cm/sec LV V1 VTI: 18.6 cm Transcribed By: SCV Performed At: 05/10/22 0751 Signed By: Itz Arguello MD 05/10/22 1306 Normal [facility] Eosinophils Auto (Bld) [#/Vo l]Ordered By: Herminia Perezomababs on 05-10-2022 Eosinophils (Bld) [#/Vol] 0.2 10*3/uL 0.0-0.45 [facility] Eosinophils/100 WBC Auto (Bl d)Ordered By: Obdarindabenjamin Perezomar on 05-10-2022 Eosinophils/100 WBC (Bld) 2.7 % . [facility] Erythrocyte distribution wid th Auto (RBC) [Ratio]Ordered By: Herminia Lawler on 05-10-2022 Erythrocyte distribution width (RBC) [Ratio] 15.2 % 11.9-15.3 [facility] Globulin Calc (S) [Mass/Vol] Ordered By: Herminia Lawler on 05-10-2022 Globulin (S) [Mass/Vol] 2.9 g/dL [facility] Glucose Poct Glucometerson 0 05-10-2022 Commemt1 Glu2: Cleaned Meter Normal [facility] Comment on above: Result Comment: PERF ORMED BY: [place] [address] PATHOLOGIST PICKER / PACKER LORENA MONDRAGON M.D. Performed By: #### A 1C WTH eA, CBC, PT, CMP, PHOS, MG, LIPID #### [facility] [address] Glucose [Mass/Vol] 244 mg/dL Normal [facility] Comment on above: Result Comment: [facility] Glucose Reference Range is dependent on time and content of last meal. Glucose of more than 200 mg/dL in a nonstressed, ambulatory subject supports the diagnosis of Diabetes Mellitus. Performed By: #### A 1C WTH eA, CBC, PT, CMP, PHOS, MG, LIPID #### [facility] [address] Glucose [Mass/Vol] 283 mg/dL Normal [facility] Comment on above: Result Comment: [place] [facility] Glucose Reference Range is dependent on time and content of last meal. Glucose of more than 200 mg/dL in a nonstressed, ambulatory subject supports the diagnosis of Diabetes Mellitus. PERFORMED BY: [place] [address] PATHOLOGIST PICKER / PACKER LORENA MONDRAGON M.D. Performed By: #### A 1C WTH eA, CBC, PT, CMP, PHOS, MG, LIPID #### [address] Glucose [Mass/Vol] 276 mg/dL Normal [facility] Comment on above: Result Comment: [place] [facility] Glucose Reference Range is dependent on time and content of last meal. Glucose of more than 200 mg/dL in a nonstressed, ambulatory subject supports the diagnosis of Diabetes Mellitus. PERFORMED BY: [place] [address] PATHOLOGIST PICKER / PACKER LORENA MONDRAGON M.D. Performed By: #### A 1C WTH eA, CBC, PT, CMP, PHOS, MG, LIPID #### [address] Glucose [Mass/Vol] 84 mg/dL Normal [facility] Comment on above: Result Comment: [facility] [facility] Glucose Reference Range is dependent on time and content of last meal. Glucose of more than 200 mg/dL in a nonstressed, ambulatory subject supports the diagnosis of Diabetes Mellitus. PERFORMED BY: [place] [address] PATHOLOGIST PICKER / PACKER LORENA MONDRAGON M.D. Performed By: #### A 1C WTH eA, CBC, PT, CMP, PHOS, MG, LIPID #### [address] Hematocrit Auto (Bld) [Volum e fraction]Ordered By: Herminia Lawler on 05-10-2022 Hematocrit (Bld) [Volume fraction] 37.8 % 34.0-46.4 [facility] - Hematology and Cell countsOrdered By: Herminia Tysonr on 05-10-2022 Nucleated RBC/100 WBC (Bld) [Ratio] 0.3 % 0-0.5 [facility] Lymphocytes Auto (Bld) [#/Vo l]Ordered By: Obbrent Perezomar on 05-10-2022 Lymphocytes (Bld) [#/Vol] 3.0 10*3/uL 1.00-4.8 [facility] Lymphocytes/100 WBC Auto (Bl d)Ordered By: Obbrent Perezomar on 05-10-2022 Lymphocytes/100 WBC (Bld) 42.4 % . [facility] MCH Auto (RBC) [Entitic mass ]Ordered By: Herminia Perezomar on 05-10-2022 MCH (RBC) [Entitic mass] 26.4 pg 24.7-34.3 [facility] MCHC Auto (RBC) [Mass/Vol]Or dered By: Obbrent Perezomar on 05-10-2022 MCHC (RBC) [Mass/Vol] 32.8 g/dL 32.0-35.0 [facility] MCV Auto (RBC) [Entitic vol] Ordered By: Herminia Tysonr on 05-10-2022 MCV (RBC) [Entitic vol] 80.5 fL 80-100 [facility] Magnesiumon 05-10-2022 Magnesium [Mass/Vol] 1.7 mg/dL Normal 1.6-2.6 [facility] Comment on above: Order Comment: draw at 0530 Result Comment: PERF ORMED BY: [facility] [address] [place] [address] PATHOLOGIST PICKER / PACKER LORENA MONDRAGON M.D. Performed By: #### C MP, MG, CBC #### [facility] [address] Monocytes Auto (Bld) [#/Vol] Ordered By: Herminia Perezomar on 05-10-2022 Monocytes (Bld) [#/Vol] 0.4 10*3/uL 0.0-0.8 [facility] Monocytes/100 WBC Auto (Bld) Ordered By: Herminia Tysonr on 05-10-2022 Monocytes/100 WBC (Bld) 6.4 % . [facility] Neutrophils Auto (Bld) [#/Vo l]Ordered By: Obbrent Perezomar on 05-10-2022 Neutrophils (Bld) [#/Vol] 3.2 10*3/uL 1.8-7.7 [facility] Neutrophils/100 WBC Auto (Bl d)Ordered By: Obdarindabenjamin Perezomar on 05-10-2022 Neutrophils/100 WBC (Bld) 45.7 % . [facility] No Panel InformationOrdered By: Herminia Lawler on 05-10-2022 Bedside Glucose Comment Glu2: cleaned meter [facility] Partial Thromboplastin Timeo n 05-10-2022 aPTT Coag (Bld) [Time] 57.7 s High 25.1-36.5 [facility] Comment on above: Order Comment: draw at 0530 List the anticoagulant: HEPARIN, UNFRACTIONATED Result Comment: PERF ORMED BY: [place] [address] PATHOLOGIST PICKER / PACKER LORENA MONDRAGON M.D. Performed By: #### A 1C WT eA, CBC, PT, CMP, PHOS, MG, LIPID #### [facility] [address] [place] [address] aPTT Coag (Bld) [Time] 56.1 s High 25.1-36.5 [facility] Comment on above: Order Comment: List the anticoagulant: HEPARIN, UNFRACTIONATED Result Comment: PERF ORMED BY: [place] [address] PATHOLOGIST PICKER / PACKER LORENA MONDRAGON M.D. Performed By: #### A 1C WT eA, CBC, PT, CMP, PHOS, MG, LIPID #### [facility] [address] [place] [id number] [facility] Platelet mean volume Auto (B ld) [Entitic vol]Ordered By: Herminia Perezomar on 05-10-2022 Platelet mean volume (Bld) [Entitic vol] 8.3 fL 6.3-10.7 [facility] Platelets Auto (Bld) [#/Vol] Ordered By: Herminia Lawler on 05-10-2022 Platelets (Bld) [#/Vol] 236 10*3/uL 150-450 [facility] Protein [Mass/volume] in Ser um or PlasmaOrdered By: Herminia Perezomababs on 05-10-2022 Protein [Mass/Vol] 5.8 g/dL 6.1-7.9 [facility] RBC Auto (Bld) [#/Vol]Ordere d By: Herminia Lawler on 05-10-2022 RBC (Bld) [#/Vol] 4.70 10*6/uL 3.60-5.00 [facility] Serum or plasma alanine landa otransferase measurement without P-5'-P (enzymatic activiOrdered By: Herminia Lawler on 05-10-2022 ALT No additional P-5'-P [Catalytic activity/Vol] 18 U/L 10-60 [facility] Serum or plasma albumin/glob ulin mass ratioOrdered By: Herminia Lawler on 05-10-2022 Albumin/Globulin [Mass ratio] 1.0 {ratio} [facility] Serum or plasma alkaline jama sphatase measurement (enzymatic activity/volume)Ordered By: Herminia Lawler on 05-10-2022 ALP [Catalytic activity/Vol] 75 U/L 32-92 [facility] Serum or plasma aspartate am inotransferase measurement (enzymatic activity/volume)Ordered By: Herminia Lawler on 05-10-2022 AST [Catalytic activity/Vol] 18 U/L 10-42 [facility] Serum or plasma creatine kin ase MB (CKMB)/total creatine kinase (CK) ratio by calculaOrdered By: Darrion Gilbert on 05-10-2022 CK.MB Calc [Catalytic fraction] 6.8 % 0.00-2.50 [facility] Serum or plasma creatine kin ase MB measurement (mass/volume)Ordered By: Darrion Gilbert on 05-10-2022 CK.MB [Mass/Vol] 3.3 ng/mL 0.6-6.3 [facility] Serum or plasma total biliru bin measurement (mass/volume)Ordered By: Herminia Lawler on 05-10-2022 Bilirubin [Mass/Vol] 0.4 mg/dL 0.3-1.2 [facility] Troponin I High Sensitivityo n 05-10-2022 Troponin I High Sensitivity 180 pg/mL Off scale high 0-15 [facility] Comment on above: Result Comment: Crit ical value result called at 1442 on 05/10/22 PERFORMED BY: [place] [address] PATHOLOGIST PICKER / PACKER LORENA MONDRAGON M.D. Performed By: #### A 1C WTH eA, CBC, PT, CMP, PHOS, MG, LIPID #### [facility] [address] [place] [id number] [facility] Troponin I High Sensitivity 280 pg/mL Off scale high 0-15 [facility] Comment on above: Result Comment: Resu lts called at 0243 on 05/10/22 PERFORMED BY: [place] [address] PATHOLOGIST PICKER / PACKER LORENA MONDRAGON M.D. Performed By: #### A 1C WTH eA, CBC, PT, CMP, PHOS, MG, LIPID #### [facility] [address] [place], [place] [id number] [place] A1C with Estimated Average G norman 05-09-2022 Glucose [Mass/Vol] 263 mg/dL Normal [facility] Comment on above: Result Comment: PERF ORMED BY: [place] [address] PATHOLOGIST PICKER / PACKER LORENA MONDRAGON M.D. Performed By: #### A 1C WTH eA, CBC, PT, CMP, PHOS, MG, LIPID #### [facility] [address] [place] [address] [facility] HbA1c (Bld) [Mass fraction] 10.8 % High 4.3-5.6 [facility] Comment on above: Result Comment: Incr eased risk for diabetes: 5.7 - 6.4 diabetes: >6.4 glycemic control for adults with diabetes: <7.0 Performed By: #### A [facility] eA, CBC, PT, CMP, PHOS, MG, LIPID #### [facility] [address] ACETONE SERUMon 05-09-2022 ACETONE Negative Normal NEGATIVE [facility] Comment on above: Performed By: #### A CETON #### [facility] [address] [place] [address] Dr. Kesha Aguero CBC AUTO DIFFon 05-09-2022 BASO # 0.0 103/ul Normal 0.0-0.1 [facility] Comment on above: Performed By: #### A CETON #### [facility] [address] [place] [address] Dr. Kesha Aguero Basophils/100 WBC (Bld) 0.5 % Normal 0.2-2.0 [facility] Comment on above: Performed By: #### A CETON #### [facility] [address] [place] [address] Dr. Kesha Aguero EO # 0.1 103/ul Normal 0.0-0.7 [facility] Comment on above: Performed By: #### A CETON #### [facility] [address] [place] [address] Dr. Kesha Aguero Eosinophils/100 WBC (Bld) 1.5 % Normal 0.9-7.0 [facility] Comment on above: Performed By: #### A CETON #### [facility] [address] [place] [address] Dr. Kesha Aguero Erythrocyte distribution width (RBC) [Ratio] 14.1 % Normal 11.0-15.0 [facility] Comment on above: Performed By: #### A CETON #### [facility] [address] [place] [address] Dr. Kesha Aguero Hematocrit (Bld) [Volume fraction] 40.7 % Normal 36.0-48.0 [facility] Comment on above: Performed By: #### A CETON #### [facility] [address] [place] [address] Dr. Kesha Aguero Hemoglobin (Bld) [Mass/Vol] 13.0 g/dL Normal 12.0-16.0 [facility] Comment on above: Performed By: #### A CETON #### [facility] [address] [place] [address] Dr. Kesha Aguero IG # 0.01 10e3/ul Normal 0.00-0.03 [facility] Comment on above: Performed By: #### A CETON #### [facility] [address] [place] [address] Dr. Kesha Aguero IG % 0.1 % Normal 0.0-0.5 [facility] Comment on above: Performed By: #### A CETON #### [facility] [address] [place] [address] Dr. Kesha Aguero LYMPH # 2.6 103/ul Normal 1.2-3.8 [facility] Comment on above: Performed By: #### A CETON #### [facility] [address] [place] [address] Dr. Kesha Aguero Lymphocytes/100 WBC (Bld) 33.0 % Normal 20.5-60.0 [facility] Comment on above: Performed By: #### A CETON #### [facility] [address] [place] [address] Dr. Kesha Aguero MANUAL DIFF REQ NO Normal [facility] Comment on above: Performed By: #### A CETON #### [facility] [address] [address] [address] Kesha Aguero MCH (RBC) [Entitic mass] 26.5 pg Critically low 26.7-34 .0 [facility] Comment on above: Performed By: #### A CETON #### [facility] [address] [place] [address] Dr. Kesha Aguero MCHC (RBC) [Mass/Vol] 31.9 g/dL Normal 29.9-35.2 [facility] Comment on above: Performed By: #### A CETON #### [facility] [address] [place] [address] Dr. Kesha Aguero MCV (RBC) [Entitic vol] 82.9 fL Normal 81.0-99.0 [facility] Comment on above: Performed By: #### A CETON #### [facility] [address] [place] [address] Dr. Kesha Aguero MONO # 0.6 103/ul Normal 0.3-0.8 [facility] [facility] Comment on above: Performed By: #### A CETON #### [facility] [address] [place] [address] Dr. Kesha Aguero Monocytes/100 WBC (Bld) 7.1 % Normal 1.7-12.0 [facility] Comment on above: Performed By: #### A CETON #### [facility] [address] [place] [address] Dr. Kesha Aguero NEUT # 4.5 103/ul Normal 1.4-6.5 [facility] Comment on above: Performed By: #### A CETON #### [facility] [address] [place] [address] Dr. Kesha Aguero Neutrophils/100 WBC (Bld) 57.8 % Normal 43.0-75.0 [facility] Comment on above: Performed By: #### A CETON #### [facility] [address] [place] [address] Dr. Kesha Aguero Platelet mean volume (Bld) [Entitic vol] 10.4 fL Normal 9.5-13.5 [facility] Comment on above: Performed By: #### A CETON #### [facility] [address] [place] [address] Dr. Kesha Aguero PLT 208 103/ul Normal 150-450 [facility] Comment on above: Performed By: #### A CETON #### [facility] [address] [place] [address] Dr. Kesha Aguero RBC 4.91 106/ul Normal 4.20-5.40 [facility] Comment on above: Performed By: #### A CETON #### [facility] [address] [place] [address] Dr. Kesha Aguero WBC 7.9 103/ul Normal 4.0-11.0 [facility] Comment on above: Performed By: #### A CETON #### [facility] [address] [address] [address] Kesha Aguero CTA ABD/PELVIS WO W CONon CTA ABD/PELVIS WO W CON EXAMINATION: CTA CHEST WO W CON, CTA ABD/PELVIS WO W CON HISTORY: Dissection of aorta , chest and epigastric pain; coronary artery stents placed 03/07/2022 COMPARISON: No relevant comparison available. TECHNIQUE: After obtaining the patient's consent, CT images of the chest, abdomen and pelvis were obtained with non-ionic intravenous contrast material. Axial, Coronal, and Sagittal images. Multi-planar reformatted/3-D images were created to optimize visualization of vascular anatomy. Dose reduction techniques were achieved by using automated exposure control and/or adjustment of mA and/or kV according to patient size and/or use of iterative reconstruction technique. FINDINGS: PULM VASC: No pulmonary embolism or abnormal opacity. LUNGS: Mild atelectasis versus infiltrates within dependent lung bases; atelectasis is favored. PLEURA: No mass, effusion, or pneumothorax. SHERRY: No mass or adenopathy. MEDIASTINUM: No mass or adenopathy. CARDIAC: No enlargement, pericardial effusion, or pericardial thickening. CHEST WALL: No mass or axillary adenopathy. AORTA/VASCULAR: No aneurysm or dissection. Moderate atherosclerotic disease. CELIAC ARTERY: Marked atherosclerotic narrowing in origin. SMA: Moderate atherosclerotic narrowing in origin. RENAL ARTERIES: Marked atherosclerotic narrowing at origins. LIVER: No enlargement, atrophy, abnormal density, or significant focal lesion. BILIARY: No visible dilatation or calcification. PANCREAS: No lesion, fluid collection, ductal dilatation, or atrophy. SPLEEN: No enlargement or focal lesion. ADRENALS: 3.6 cm left adrenal mass. KIDNEYS: No mass, obstruction, or calcification. BOWEL/MESENTERY: Marked diverticulosis throughout length of colon without acute inflammatory changes. No visible mass, obstruction, or bowel wall thickening. RETROPERITONEUM: No mass or adenopathy. ABDOMINAL WALL: No mass or hernia. BONES: No bony lesion or fracture. OTHER: Negative. IMPRESSION: 1. No aortic dissection or aneurysm. 2. No pulmonary embolism. 3. Trace amount of bibasilar pulmonary atelectasis; infectious infiltrates are felt less likely. 4. No acute findings to account for patient's symptoms. 5. Moderate atherosclerotic disease. 6. Left adrenal mass 3.6 cm of uncertain etiology. Follow-up multiphase CT imaging (adrenal gland protocol) is recommended. 7. Marked diverticulosis of colon without acute inflammatory changes. Electronically authenticated by: L[place]IS [place] Date: 2022-05-09 07:19 Normal [facility] Cholesterol [Mass/volume] in Serum or PlasmaOrdered By: Herminia Lawler on 05-09-2022 Cholesterol [Mass/Vol] 112 mg/dL 140-200 [facility] Comment on above: Chol less than 200 m g/dl low risk Chol 201-239 mg/dl borderline risk Chol 240 mg/dl and greater high risk Cholesterol in LDL Calc [Mas s/Vol]Ordered By: Herminia Lawler on 05-09-2022 Cholesterol in LDL [Mass/Vol] 51 mg/dL 0-100 [facility] Comment on above: LDL ATP III CLASSIFI CATION LDL less than 100 mg/dL Optimal LDL 100-129 mg/dL Near or above optimal LDL 130-159 mg/dL Borderline high LDL 160-189 mg/dL High LDL greater than 189 mg/dL Very high Cholesterol in VLDL Calc [Ma ss/Vol]Ordered By: Herminia Lawler on 05-09-2022 Cholesterol in VLDL [Mass/Vol] 31 mg/dL [facility] Complete Blood Count Auto Di ffon 05-09-2022 Basophils (Bld) [#/Vol] 0.0 10*3/uL Normal 0.0-0.2 [facility] Comment on above: Result Comment: PERF ORMED BY: [place] [address] PATHOLOGIST PICKER / PACKER LORENA MONDRAGON M.D. Performed By: #### A 1C WTH eA, CBC, PT, CMP, PHOS, MG, LIPID #### [facility] [address] Basophils/100 WBC (Bld) 0.6 % Normal . [facility] Comment on above: Performed By: #### A 1C WTH eA, CBC, PT, CMP, PHOS, MG, LIPID #### [address] Eosinophils (Bld) [#/Vol] 0.1 10*3/uL Normal 0.0-0.45 [facility] Comment on above: Performed By: #### A 1C WT eA, CBC, PT, CMP, PHOS, MG, LIPID #### [address] Eosinophils/100 WBC (Bld) 1.5 % Normal . [facility] Comment on above: Performed By: #### A 1C [facility] eA, CBC, PT, CMP, PHOS, MG, LIPID #### [address] Erythrocyte distribution width (RBC) [Ratio] 15.1 % Normal 11.9-15.3 [facility] Comment on above: Performed By: #### A 1C [facility] eA, CBC, PT, CMP, PHOS, MG, LIPID #### [address] Hematocrit (Bld) [Volume fraction] 42.5 % Normal 34.0-46.4 [facility] Comment on above: Performed By: #### A 1C WT eA, CBC, PT, CMP, PHOS, MG, LIPID #### [address] Hemoglobin (Bld) [Mass/Vol] 13.7 g/dL Normal 11.8-15.4 [facility] Comment on above: Performed By: #### A 1C WT eA, CBC, PT, CMP, PHOS, MG, LIPID #### [place] [address] [place] Lymphocytes (Bld) [#/Vol] 2.2 10*3/uL Normal 1.00-4.8 [facility] Comment on above: Performed By: #### A 1C WT eA, CBC, PT, CMP, PHOS, MG, LIPID #### [place] [address] [place] Lymphocytes/100 WBC (Bld) 35.8 % Normal . [facility] Comment on above: Performed By: #### A 1C WT eA, CBC, PT, CMP, PHOS, MG, LIPID #### [address] MCH (RBC) [Entitic mass] 25.9 pg Normal 24.7-34.3 [facility] Comment on above: Performed By: #### A 1C WT eA, CBC, PT, CMP, PHOS, MG, LIPID #### [address] MCV (RBC) [Entitic vol] 80.6 fL Normal 80-100 [facility] Comment on above: Performed By: #### A 1C WT eA, CBC, PT, CMP, PHOS, MG, LIPID #### [address] Mean Corpuscular HGB Conc 32.1 g/dL Normal 32.0-35.0 [facility] Comment on above: Performed By: #### A 1C WT eA, CBC, PT, CMP, PHOS, MG, LIPID #### [address] Monocytes (Bld) [#/Vol] 0.4 10*3/uL Normal 0.0-0.8 [facility] Comment on above: Performed By: #### A 1C WTH eA, CBC, PT, CMP, PHOS, MG, LIPID #### [address] Monocytes/100 WBC (Bld) 6.3 % Normal . [facility] Comment on above: Performed By: #### A 1C WTH eA, CBC, PT, CMP, PHOS, MG, LIPID #### [address] Neutrophils (Bld) [#/Vol] 3.4 10*3/uL Normal 1.8-7.7 [facility] Comment on above: Performed By: #### A 1C WTH eA, CBC, PT, CMP, PHOS, MG, LIPID #### [facility] [address] Neutrophils/100 WBC (Bld) 55.8 % Normal . [facility] Comment on above: Performed By: #### A 1C WTH eA, CBC, PT, CMP, PHOS, MG, LIPID #### [facility] [address] Nucleated RBC/100 WBC (Bld) [Ratio] 0.1 % Normal 0-0.5 [facility] Comment on above: Performed By: #### A 1C WT eA, CBC, PT, CMP, PHOS, MG, LIPID #### [facility] [address] Platelet mean volume (Bld) [Entitic vol] 8.6 fL Normal 6.3-10.7 [facility] Comment on above: Performed By: #### A 1C WT eA, CBC, PT, CMP, PHOS, MG, LIPID #### [facility] [address] Platelets (Bld) [#/Vol] 222 10*3/uL Normal 150-450 [facility] Comment on above: Performed By: #### A 1C WT eA, CBC, PT, CMP, PHOS, MG, LIPID #### [address] RBC (Bld) [#/Vol] 5.27 10*6/uL High 3.60-5.00 [facility] Comment on above: Performed By: #### A 1C WTH eA, CBC, PT, CMP, PHOS, MG, LIPID #### [facility] [address] WBC (Bld) [#/Vol] 6.1 10*3/uL Normal 4.5-11.0 [facility] Comment on above: Performed By: #### A 1C WTH eA, CBC, PT, CMP, PHOS, MG, LIPID #### [facility] [address] Comprehensive Metabolic Pane eligio 09-09-2022 Albumin [Mass/Vol] 3.5 g/dL Normal 3.2-5.5 [facility] Comment on above: Performed By: #### A 1C WTH eA, CBC, PT, CMP, PHOS, MG, LIPID #### [address] Albumin/Globulin [Mass ratio] 1.1 {ratio} Normal [facility] Comment on above: Performed By: #### A 1C WTH eA, CBC, PT, CMP, PHOS, MG, LIPID #### [address] ALP [Catalytic activity/Vol] 90 U/L Normal 32-92 [facility] Comment on above: Performed By: #### A 1C WTH eA, CBC, PT, CMP, PHOS, MG, LIPID #### [address] ALT [Catalytic activity/Vol] 22 U/L Normal 10-60 [facility] Comment on above: Performed By: #### A 1C WTH eA, CBC, PT, CMP, PHOS, MG, LIPID #### [address] Anion gap [Moles/Vol] 12.7 mmol/L Normal 6.0-15.0 [facility] Comment on above: Performed By: #### A 1C WT eA, CBC, PT, CMP, PHOS, MG, LIPID #### [address] AST [Catalytic activity/Vol] 22 U/L Normal 10-42 [facility] Comment on above: Performed By: #### A 1C WT eA, CBC, PT, CMP, PHOS, MG, LIPID #### [address] Bilirubin [Mass/Vol] 0.7 mg/dL Normal 0.3-1.2 [facility] Comment on above: Performed By: #### A 1C WTH eA, CBC, PT, CMP, PHOS, MG, LIPID #### [place] [address] [place] Calcium [Mass/Vol] 10.0 mg/dL Normal 8.2-10.2 [facility] Comment on above: Performed By: #### A 1C WTH eA, CBC, PT, CMP, PHOS, MG, LIPID #### [facility] [address] Chloride [Moles/Vol] 104 mmol/L Normal 95-114 [facility] Comment on above: Performed By: #### A 1C WTH eA, CBC, PT, CMP, PHOS, MG, LIPID #### [facility] [address] CO2 [Moles/Vol] 22.2 mmol/L Normal 22.0-30.0 [facility] Comment on above: Performed By: #### A 1C WTH eA, CBC, PT, CMP, PHOS, MG, LIPID #### [facility] [address] [place] [address] Creatinine [Mass/Vol] 0.88 mg/dL Normal 0.44-1.03 [facility] Comment on above: Performed By: #### A 1C WTH eA, CBC, PT, CMP, PHOS, MG, LIPID #### [facility] [address] Creatinine Clr Calc Pharmacy 47.10 [facility] Comment on above: Performed By: #### A 1C WTH eA, CBC, PT, CMP, PHOS, MG, LIPID #### [facility] [address] Estimated GFR ( Georgina > 60 [facility] Comment on above: Result Comment: GFR estimated reference range: According to KDOQI guidelines, <60 ml/min/1.73m2 is sufficient to diagnose a patient with chronic kidney disease. Performed By: #### A 1C WTH eA, CBC, PT, CMP, PHOS, MG, LIPID #### [facility] [address] Estimated GFR (Non- Am > 60 [facility] Comment on above: Performed By: #### A 1C WTH eA, CBC, PT, CMP, PHOS, MG, LIPID #### [facility] [address] Globulin (S) [Mass/Vol] 3.3 g/dL Normal [facility] Comment on above: Performed By: #### A 1C WTH eA, CBC, PT, CMP, PHOS, MG, LIPID #### [facility] [address] Glucose [Mass/Vol] 184 mg/dL High 70-100 [facility] Comment on above: Result Comment: [facility] Glucose Reference Range is dependent on time and content of last meal. Glucose of more than 200 mg/dL in a nonstressed, ambulatory subject supports the diagnosis of Diabetes Mellitus. ADA recommended reference range Performed By: #### A 1C WTH eA, CBC, PT, CMP, PHOS, MG, LIPID #### [address] Potassium [Moles/Vol] 3.9 mmol/L Normal 3.5-5.1 [facility] Comment on above: Performed By: #### A 1C WTH eA, CBC, PT, CMP, PHOS, MG, LIPID #### [facility] [address] Protein [Mass/Vol] 6.8 g/dL Normal 6.1-7.9 [facility] Comment on above: Performed By: #### A 1C WTH eA, CBC, PT, CMP, PHOS, MG, LIPID #### [facility] [address] Sodium [Moles/Vol] 135 mmol/L Low 136-146 [facility] Comment on above: Performed By: #### A 1C WTH eA, CBC, PT, CMP, PHOS, MG, LIPID #### [address] Urea nitrogen [Mass/Vol] 16 mg/dL Normal 9-23 [facility] Comment on above: Performed By: #### A 1C WTH eA, CBC, PT, CMP, PHOS, MG, LIPID #### [facility] [address] [id number] [place] Covid-19 PCR (CVDTB)on SARS-CoV-2 (COVID-19) RNA YARA+probe Ql (Unsp spec) Not detected Normal NOT DETECTED [facility] Comment on above: Result Comment: When diagnostic testing is negative, the possibility of a false negative should be considered in the context of a patient's recent exposures and the presence of clinical signs and symptoms consistent with SARS-CoV-2. This test is not yet approved or cleared by the [place] FDA. When there are no FDA-approved or cleared tests available, and other criteria are met, FDA can make tests available under an emergency access mechanism called an Emergency Use Authorization (EUA). The EUA for this test is supported by the Materials Specialist of Health and Human Service's declaration that circumstances exist to justify the emergency use of in vitro diagnostics for the detection and/or diagnosis of the virus that causes COVID-19. This EUA will remain in effect for the duration of the COVID-19 declaration justifying emergency of IVDs, unless it is terminated or revoked by the FDA (after which the test may no longer be used). Performed By: #### C VDTBH #### [facility] [address] [place] [address] Dr. Kesha Aguero Creatine Kinaseon 05-09-2022 CK [Catalytic activity/Vol] 75 U/L Normal 22-[address] [place] [address] Comment on above: Performed By: #### A 1C WTH eA, CBC, PT, CMP, PHOS, MG, LIPID #### [facility] [address] [id number] [facility] CK [Catalytic activity/Vol] 56 U/L Normal 22-269 [facility] Comment on above: Performed By: #### A 1C WTH eA, CBC, PT, CMP, PHOS, MG, LIPID #### [facility] [address] [place] [address] [facility] CK [Catalytic activity/Vol] 63 U/L Normal 22-[address] [place] [address] Comment on above: Performed By: #### A 1C WTH eA, CBC, PT, CMP, PHOS, MG, LIPID #### [facility] [address] [place] [address] [place] Creatinine Kinase MBon 05-09 CK.MB [Mass/Vol] 4.3 ng/mL Normal 0.6-6.3 [facility] Comment on above: Performed By: #### A 1C WTH eA, CBC, PT, CMP, PHOS, MG, LIPID #### [facility] [address] [place] [address] [place] CKMB Relative Index 5.7 % High 0.00-2.50 [facility] Comment on above: Performed By: #### A 1C WT eA, CBC, PT, CMP, PHOS, MG, LIPID #### [facility] [address] CK.MB [Mass/Vol] 4.6 ng/mL Normal 0.6-6.3 [facility] Comment on above: Performed By: #### A 1C WT eA, CBC, PT, CMP, PHOS, MG, LIPID #### [facility] [address] CKMB Relative Index 8.2 % High 0.00-2.50 [facility] Comment on above: Performed By: #### A 1C WT eA, CBC, PT, CMP, PHOS, MG, LIPID #### [facility] [address] CK.MB [Mass/Vol] 6.2 ng/mL Normal 0.6-6.3 [facility] Comment on above: Performed By: #### A 1C WTH eA, CBC, PT, CMP, PHOS, MG, LIPID #### [facility] [address] [place] [address] [place] CKMB Relative Index 9.8 % High 0.00-2.50 [facility] Comment on above: Performed By: #### A 1C WTH eA, CBC, PT, CMP, PHOS, MG, LIPID #### [facility] [address] [place] [address] ECG 12 lead ECGon 05-09-2022 ECG 12 lead ECG [facility] [address] [place] [address] Electrocardiograph Report Signed Patient: Tere Aragon MR#: [id number] 45 : 1940 Acct:[id number] Age/Sex: 82 / F ADM Date: 05/09/22 Loc: 4 Room: [address] [place] [address] Type: DIS IN Attending Dr: Herminia Lawler MD Ordering Provider: Darrion Gilbert DO Date of Service: 05/09/2205/22/1310 ECG/ECG 12 lead ECG: nstemi Copies to: Test Reason : Blood Pressure : / mmHG Vent. Rate : 067 BPM Atrial Rate : 067 BPM P-R Int : 220 ms QRS Dur : 130 ms QT Int : 432 ms P-R-T Axes : 061 -70 012 degrees QTc Int : 456 ms Sinus rhythm with 1st degree AV block Right bundle branch block Left anterior fascicular block Bifascicular block Septal infarct , age undetermined Abnormal ECG Compared to 20Jul2011 , the RBBB and LAHC are new Confirmed by NEO MAJANO MD ([id number]) on 05/10/2022 10:08:43 AM Referred By: NOH Electronically Signed By:NEO MAJANO MD Transcribed By: MUS Signed By Neo Majano MD [id number] Normal [facility] Glucose Poct Glucometerson 0 05-09-2022 Commemt1 Glu2: Cleaned Meter [facility] Comment on above: Result Comment: PERF ORMED BY: [place] [address] PATHOLOGIST PICKER / PACKER LORENA MONDRAGON M.D. Performed By: #### A 1C WTH eA, CBC, PT, CMP, PHOS, MG, LIPID #### [facility] [address] [place] [address] Glucose [Mass/Vol] 301 mg/dL [facility] Comment on above: Result Comment: [facility] Glucose Reference Range is dependent on time and content of last meal. Glucose of more than 200 mg/dL in a nonstressed, ambulatory subject supports the diagnosis of Diabetes Mellitus. Performed By: #### A 1C WTH eA, CBC, PT, CMP, PHOS, MG, LIPID #### [facility] [address] [id number] [facility] Glucose [Mass/Vol] 141 mg/dL Normal [facility] Comment on above: Result Comment: [facility] Glucose Reference Range is dependent on time and content of last meal. Glucose of more than 200 mg/dL in a nonstressed, ambulatory subject supports the diagnosis of Diabetes Mellitus. PERFORMED BY: [facility] [address] [place] [address] PATHOLOGIST PICKER / PACKER LORENA MONDRAGON M.D. Performed By: #### A 1C WTH eA, CBC, PT, CMP, PHOS, MG, LIPID #### [facility] [address] [id number] [facility] Glucose mean value [Mass/vol ume] in Blood Estimated from glycated hemoglobinOrdered By: Herminia Lawler on 05-09-2022 Average glucose Estimated from glycated hemoglobin (Bld) [Mass/Vol] 263 mg/dL [facility] Hemoglobin A1c percentageOrd ered By: Herminia Lawler on 05-09-2022 HbA1c (Bld) [Mass fraction] 10.8 % 4.3-5.6 [facility] Comment on above: Increased risk for d iabetes: 5.7 - 6.4 diabetes: >6.4 glycemic control for adults with diabetes: <7.0 LIPASEon 05-09-2022 Lipase [Catalytic activity/Vol] 287.0 U/L Normal 73.0-393.0 [facility] Comment on above: Performed By: #### C VDTBH #### [facility] [address] [address] [address] Kesha Aguero Laboratory - CoagulationOrde red By: Herminia Lawler on 05-09-2022 PT Coag (PPP) [Time] 11.6 s 9.0-12.9 [facility] Lipid Panelon 05-09-2022 Cholesterol [Mass/Vol] 112 mg/dL Low 140-200 [facility] Comment on above: Result Comment: Chol less than 200 mg/dl low risk Chol 201-239 mg/dl borderline risk Chol 240 mg/dl and greater high risk Performed By: #### A 1C WTH eA, CBC, PT, CMP, PHOS, MG, LIPID #### [facility] [address] Cholesterol in HDL [Mass/Vol] 30 mg/dL Low 35-85 [facility] Comment on above: Result Comment: HDL CHOL ATP-III CLASSIFICATION Cardiovascular Risk HDL > or equal to 60 mg/dL LOW HDL < 40 mg/dL HIGH Performed By: #### A 1C WTH eA, CBC, PT, CMP, PHOS, MG, LIPID #### [facility] [address] Cholesterol.total/Choles terol in HDL [Mass ratio] 3.7 {ratio} Normal <5.0 [facility] Comment on above: Result Comment: PERF ORMED BY: [place] [address] PATHOLOGIST PICKER / PACKER LORENA MONDRAGON M.D. Performed By: #### A 1C WTH eA, CBC, PT, CMP, PHOS, MG, LIPID #### [facility] [address] LDL Cholesterol,Calculated 51 mg/dL Normal 0-100 [facility] Comment on above: Result Comment: LDL ATP III CLASSIFICATION LDL less than 100 mg/dL Optimal LDL 100-129 mg/dL Near or above optimal LDL 130-159 mg/dL Borderline high LDL 160-189 mg/dL High LDL greater than 189 mg/dL Very high Performed By: #### A 1C WTH eA, CBC, PT, CMP, PHOS, MG, LIPID #### [facility] [address] [place] [address] [place] Triglyceride w/Reflex 156 mg/dL High 35-149 [facility] Comment on above: Result Comment: TRIG ATP III CLASSIFICATION TRIG less than 150 mg/dL Normal TRIG 150-199 mg/dL Borderline high TRIG 200-500 mg/dL High TRIG greater than 500 mg/dL Very high Standard traceable to the Center for Disease Conrtrol and Prevention (CDC) test method. Performed By: #### A 1C WTH eA, CBC, PT, CMP, PHOS, MG, LIPID #### [facility] [address] VLDL CHOLESTEROL 31 mg/dL Normal [facility] Comment on above: Performed By: #### A 1C [facility] eA, CBC, PT, CMP, PHOS, MG, LIPID #### [facility] [address] [place] [address] [place] Magnesiumon 05-09-2022 Magnesium [Mass/Vol] 1.8 mg/dL Normal 1.6-2.6 [facility] Comment on above: Performed By: #### A 1C [facility] eA, CBC, PT, CMP, PHOS, MG, LIPID #### [facility] [address] POINT OF CARE GLUCOSEon Glucose [Mass/Vol] 387 mg/dL Critically high 74-106 [facility] Comment on above: Performed By: #### C VDTBH #### [facility] [address] [place] [address] Dr. Kesha Aguero Glucose [Mass/Vol] 432 mg/dL Critically high 74-106 [facility] Comment on above: Performed By: #### P OCGLUC #### [facility] [address] [place] [address] Dr. Kesha Aguero PROF 14(COMP METB)on 022 Albumin [Mass/Vol] 3.5 g/dL Normal 3.4-5.0 [facility] Comment on above: Performed By: #### C VDTBH #### [facility] [address] [place] [address] Dr. Kesha Aguero Albumin/Globulin [Mass ratio] 1.0 {ratio} Normal [facility] Comment on above: Performed By: #### C VDTBH #### [facility] [address] [place] [address] Dr. Kesha Aguero ALP [Catalytic activity/Vol] 115 U/L Normal 46-116 [facility] Comment on above: Performed By: #### C VDTBH #### [facility] [address] [address] [address] Kesha Aguero ALT [Catalytic activity/Vol] 24 U/L Normal 14-59 [facility] [facility] Comment on above: Performed By: #### C VDTBH #### [facility] [address] [address] [address] Kesha Aguero Anion gap [Moles/Vol] 15.3 mmol/L Normal [facility] Comment on above: Performed By: #### C VDTBH #### [facility] [address] [address] [address] Kesha Aguero AST [Catalytic activity/Vol] 16 U/L Normal 15-37 [facility] Comment on above: Performed By: #### C VDTBH #### [facility] [address] [place] [address] Dr. Kesha Aguero Bilirubin [Mass/Vol] 0.4 mg/dL Normal 0.2-1.0 [facility] Comment on above: Performed By: #### C VDTBH #### [facility] [address] [place] [address] Dr. Kesha Aguero Calcium [Mass/Vol] 9.6 mg/dL Normal 8.5-10.1 [facility] Comment on above: Performed By: #### C VDTBH #### [facility] [address] [place] [address] Dr. Kesha Aguero Chloride [Moles/Vol] 102 mmol/L Normal 98-107 [facility] Comment on above: Performed By: #### C VDTBH #### [facility] [address] [place] [address] Dr. Kesha Aguero CO2 [Moles/Vol] 19.7 mmol/L Critically low 21.0-32.0 [facility] Comment on above: Performed By: #### C VDTBH #### [facility] [address] [place] [address] Dr. Kesha Aguero Creatinine [Mass/Vol] 1.22 mg/dL Critically high 0.55-1.02 [facility] Comment on above: Performed By: #### C VDTBH #### [facility] [address] [address] [address] Kesha Aguero EGFR-AF CAMBODIAN 51 mL/min/1.73m2 Critically low >=60 [facility] Comment on above: Performed By: #### C VDTBH #### [facility] [address] [address] [address] Kesha Aguero EGFR-NON AF CAMBODIAN 42 mL/min/1.73m2 Critically low >=60 [facility] Comment on above: Performed By: #### C VDTBH #### [facility] [address] [address] [address] Kesha Aguero Globulin (S) [Mass/Vol] 3.6 g/dL Normal [facility] Comment on above: Performed By: #### C VDTBH #### [facility] [address] [place] [address] Dr. Kesha Aguero Glucose [Mass/Vol] 499 mg/dL Critically high 74-106 [facility] Comment on above: Performed By: #### C VDTBH #### [facility] [address] [address] [address] Kesha Aguero Potassium [Moles/Vol] 4.0 mmol/L Normal 3.5-5.1 [facility] Comment on above: Performed By: #### C VDTBH #### [facility] [address] [place] [address] Dr. Kesha Aguero Protein [Mass/Vol] 7.1 g/dL Normal 6.4-8.2 [facility] Comment on above: Performed By: #### C VDTBH #### [facility] [address] [address] [address] Kesha Aguero Sodium [Moles/Vol] 133 mmol/L Critically low 136-145 [facility] Comment on above: Performed By: #### C VDTBH #### [facility] [address] [address] [address] Kesha Aguero Urea nitrogen [Mass/Vol] 27.0 mg/dL Critically high 7.0-18 .0 [facility] Comment on above: Performed By: #### C VDTBH #### [facility] [address] [address] [address] Kesha Aguero Urea nitrogen/Creatinine [Mass ratio] 22.1 mg/mg Normal [facility] Comment on above: Performed By: #### C VDTBH #### [facility] [address] [place], [place] [address] Dr. Kesha Agureo Partial Thromboplastin Timeo n 05-09-2022 aPTT Coag (Bld) [Time] 48.7 s High 25.1-36.5 [facility] Comment on above: Order Comment: List the anticoagulant: HEPARIN, UNFRACTIONATED Result Comment: PERF ORMED BY: [place] [address] PATHOLOGIST PICKER / PACKER LORENA MONDRAGON M.D. Performed By: #### A 1C WT eA, CBC, PT, CMP, PHOS, MG, LIPID #### [facility] [address] [place] [address] Phosphate [Mass/volume] in S jefferson or PlasmaOrdered By: Herminia Lawler on 05-09-2022 Phosphate [Mass/Vol] 3.5 mg/dL 2.5-4.6 [facility] Phosphoruson 05-09-2022 Phosphate [Mass/Vol] 3.5 mg/dL Normal 2.5-4.6 [facility] Comment on above: Performed By: #### A 1C WT eA, CBC, PT, CMP, PHOS, MG, LIPID #### [facility] [address] [place] [address] Platelet poor plasma interna tional normalized ratio (INR) by coagulation assay (relatOrdered By: Herminia Lawler on 05-09-2022 INR Coag (PPP) [Relative time] 1.0 {INR} [facility] Comment on above: INR Therapeutic Rang e A) Pre- and Peroperative OAT started two weeks before surgery. NOT HIP SURGERY: 1.5 - 2.5 HIP SURGERY: 2 - 3 B) Primary and secondary prevention of venous THROMBOSIS: 2 - 3 C) Active venous thrombosis, pulmonary embolism and prevention of recurrent venous thrombosis: 2 - 3 D) Prevention of arterial thromboembolism including patients with mechanical heart valves: 3 - 4.5 Prothrombin Time INRon 05-09 INR Coag (PPP) [Relative time] 1.0 {INR} Normal [facility] Comment on above: Result Comment: INR Therapeutic Range A) Pre- and Peroperative OAT started two weeks before surgery. NOT HIP SURGERY: 1.5 - 2.5 HIP SURGERY: 2 - 3 B) Primary and secondary prevention of venous THROMBOSIS: 2 - 3 C) Active venous thrombosis, pulmonary embolism and prevention of recurrent venous thrombosis: 2 - 3 D) Prevention of arterial thromboembolism including patients with mechanical heart valves: 3 - 4.5 PERFORMED BY: [place] [address] PATHOLOGIST PICKER / PACKER LORENA MONDRAGON M.D. Performed By: #### A 1C WT eA, CBC, PT, CMP, PHOS, MG, LIPID #### [facility] [address] PT Coag (PPP) [Time] 11.6 s Normal 9.0-12.9 [facility] Comment on above: Performed By: #### A 1C WT eA, CBC, PT, CMP, PHOS, MG, LIPID #### [facility] [address] [place] [address] Serum or plasma high density lipoprotein (HDL) cholesterol measurementOrdered By: Herminia Lawler on 05-09-2022 Cholesterol in HDL [Mass/Vol] 30 mg/dL 35-85 [facility] Comment on above: HDL CHOL ATP-III CLA SSIFICATION Cardiovascular Risk HDL > or equal to 60 mg/dL LOW HDL < 40 mg/dL HIGH Serum or plasma total choles terol/high density lipoprotein (HDL) cholesterol mass ratOrdered By: Herminia Lawler on 05-09-2022 Cholesterol.total/Choles terol in HDL [Mass ratio] 3.7 {ratio} <5.0 [facility] TROPONIN, HIGH SENSITIVITYon 05-09-2022 HSTROP 603.9 pg/mL Critically high 4.0-51.3 [facility] Comment on above: Result Comment: CUT- OFF POINTS HAVE BEEN ESTABLISHED BASED ON THE FOURTH UNIVERSAL DEFINITIONS OF MYOCARDIAL INFARCTION. THE UPPER REFERENCE LIMIT (URL) OF TROPONIN, DEFINED THE 99TH PERCENTILE OF cTnI DISTRIBUTION IN A REFERENCE POPULATION, HAS BEEN CONFIRMED THE DECISION THRESHOLD FOR DC DIAGNOSIS. Performed By: #### A BENITEZ #### [facility] [address] [address] [address] Kesha Aguero HSTROP 24.7 pg/mL Normal 4.0-51.3 [facility] Comment on above: Result Comment: CUT- OFF POINTS HAVE BEEN ESTABLISHED BASED ON THE FOURTH UNIVERSAL DEFINITIONS OF MYOCARDIAL INFARCTION. THE UPPER REFERENCE LIMIT (URL) OF TROPONIN, DEFINED THE 99TH PERCENTILE OF cTnI DISTRIBUTION IN A REFERENCE POPULATION, HAS BEEN CONFIRMED THE DECISION THRESHOLD FOR DC DIAGNOSIS. Performed By: #### C VDTB #### [facility] [address] [address] [address] Kesha Aguero Triglyceride [Mass/volume] i n Serum or PlasmaOrdered By: Herminia Lawler on 05-09-2022 Triglyceride [Mass/Vol] 156 mg/dL 35-149 [facility] Comment on above: TRIG ATP III CLASSIF ICATION TRIG less than 150 mg/dL Normal TRIG 150-199 mg/dL Borderline high TRIG 200-500 mg/dL High TRIG greater than 500 mg/dL Very high Standard traceable to the Center for Disease Conrtrol and Prevention (CDC) test method. Troponin I High Sensitivityo n 05-09-2022 Troponin I High Sensitivity 388 pg/mL Off scale high 0-15 [facility] Comment on above: Result Comment: Results called at 1949 on 05/09/22 PERFORMED BY: [place] [address] PATHOLOGIST PICKER / PACKER LORENA MONDRAGON M.D. Performed By: #### A 1C WT eA, CBC, PT, CMP, PHOS, MG, LIPID #### [address] Troponin I High Sensitivity 558 pg/mL Off scale high 0-15 [facility] Comment on above: Result Comment: Results called at 1713 on 05/09/22 PERFORMED BY: [place] [address] PATHOLOGIST PICKER / PACKER LORENA MONDRAGON M.D. Performed By: #### A 1C WTH eA, CBC, PT, CMP, PHOS, MG, LIPID #### [facility] [address] [id number] [facility] Troponin I High Sensitivity 638 pg/mL Off scale high 0-15 [facility] Comment on above: Result Comment: Results called at 1457 on 05/09/22 PERFORMED BY: [facility] [address] [id number] PATHOLOGIST PICKER / PACKER LORENA MONDRAGON M.D. Performed By: #### A 1C WTH eA, CBC, PT, CMP, PHOS, MG, LIPID #### [facility] [address] [id number] [facility] Covid-19 PCR (CVDTB)on SARS-CoV-2 (COVID-19) RNA YARA+probe Ql (Unsp spec) Not detected Normal NOT DETECTED [facility] Comment on above: Result Comment: This test is not yet approved or cleared by the [place] FDA. When there are no FDA-approved or cleared tests available, and other criteria are met, FDA can make tests available under an emergency access mechanism called an Emergency Use Authorization (EUA). The EUA for this test is supported by the [place] of Health and Human Service's (HHS's) declaration that circumstances exist to justify the emergency use of in vitro diagnostics for the detection and/or diagnosis of the virus that causes COVID-19. This EUA will remain in effect (meaning this test can be used) for the duration of the COVID-19 declaration justifying emergency of IVDs, unless it is terminated or revoked by FDA (after which the test may no longer be used). When diagnostic testing is negative, the possibility of a false negative should be considered in the context of a patient's recent exposures and the presence of clinical signs and symptoms consistent with SARS-CoV-2. Performed By: #### C VDTBH #### [facility] [address] [address] [address] Kesha Aguero PROF CHEM 8 (BAS METB)on Anion gap [Moles/Vol] 13.7 mmol/L Normal Th [facility] Comment on above: Performed By: #### D DIM #### [facility] [address] [place] [address] Dr. Kesha Aguero Calcium [Mass/Vol] 9.8 mg/dL Normal 8.5-10.1 [facility] Comment on above: Performed By: #### D DIM #### [facility] [address] [address] [address] Kesha Aguero Chloride [Moles/Vol] 102 mmol/L Normal 98-107 [facility] Comment on above: Performed By: #### D DIM #### [facility] [address] [place] [address] Dr. Kesha Aguero CO2 [Moles/Vol] 26.0 mmol/L Normal 21.0-32.0 [facility] Comment on above: Performed By: #### D DIM #### [facility] [address] [place] [address] Dr. Kesha Aguero Creatinine [Mass/Vol] 1.22 mg/dL Critically high 0.55-1.02 [facility] Comment on above: Performed By: #### D DIM #### [facility] [address] [place] [address] Dr. Kesha Aguero EGFR-AF CAMBODIAN 51 mL/min/1.73m2 Critically low >=60 [facility] Comment on above: Performed By: #### D DIM #### [facility] [address] [place] [address] Dr. Kesha Aguero EGFR-NON AF CAMBODIAN 42 mL/min/1.73m2 Critically low >=60 [facility] Comment on above: Performed By: #### D DIM #### [facility] [address] [place] [address] Dr. Kesha Aguero Glucose [Mass/Vol] 323 mg/dL Critically high 74-106 [facility] Comment on above: Performed By: #### D DIM #### [facility] [address] [place] [address] Dr. Kesha Aguero Potassium [Moles/Vol] 4.7 mmol/L Normal 3.5-5.1 [facility] Comment on above: Performed By: #### D DIM #### [facility] [address] [address] [address] Kesha Aguero Sodium [Moles/Vol] 137 mmol/L Normal 136-145 [facility] Comment on above: Performed By: #### D DIM #### [facility] [address] [address] [address] Kesha Aguero Urea nitrogen [Mass/Vol] 31.0 mg/dL Critically high 7.0-18 .0 [facility] Comment on above: Performed By: #### D DIM #### [facility] [address] [address] [address] Kesha Aguero Urea nitrogen/Creatinine [Mass ratio] 25.4 mg/mg Normal [facility] Comment on above: Performed By: #### D DIM #### [facility] [address] [address] [address] Kesha Aguero Cardiovascular Lab Reporton 04-22-2022 Cardiovascular Lab Report [facility] MR #: [id number] Department of Physician: Edison Gibbs M.D. 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 The patient was recently evaluated for shortness of breath and chest pain and abnormal echo with EF 40%. She was found to have multivessel CAD. She underwent PCI of the ramus coronary artery, and now presents for staged procedure for PCI of the RCA. FINAL IMPRESSION: 1. Successful PCI of the mid and proximal RCA with a Synergy 3.5 x 38 mm drug-eluting stent. 2. Successful PCI of the proximal PDA with a Synergy 2.5 x 16 mm drug-eluting stent. Additional angioplasty of the distal PDA with a Takeru 2.0 x 12 mm balloon. PLAN: 1. Secondary prevention for CAD. 2. Aspirin 81 mg daily, long-term. 3. Plavix 75 mg daily for 6 months. After 6 months, it would be reasonable to stop Plavix. 4. Medical therapy for systolic heart failure as tolerated. The patient is on metoprolol extended release, Entresto, and Farxiga. Monitor labs. 5. Outpatient followup with [facility]. 6. Referral to cardiac rehabilitation. PROCEDURES: Coronary angiogram, PCI RCA, PCI PDA, conscious sedation 47 minutes. INDICATION: Severe CAD, angina, CCS class 3, systolic congestive heart failure, EF 40%. PROCEDURE DESCRIPTION: The patient was brought to the cardiac catheterization lab in a fasting state. Informed written consent was obtained. She was prepped and draped in usual sterile fashion over the left wrist. Time-out was performed. She was given Versed and fentanyl sedation. A 1% lidocaine was infiltrated over the left radial artery. A 6-Portuguese for Terumo Glidesheath slender was placed in the left radial artery. Radial anti-vasospasm cocktail of verapamil and nitroglycerin was administered to prevent spasm. All catheter exchanges were made over the Magic Torque guidewire. This was a planned PCI procedure. Heparin anticoagulation was administered and ACT was maintained greater than 250 seconds. A Olacabs 6-Portuguese JR4 guide was engaged to right coronary artery. Coronary angiogram was performed in multiple orthogonal views using hand injection of contrast. I elected to treat the PDA disease first. A run-through wire was manipulated to the distal PDA. The distal PDA had a focal 80% stenosis, that was in the small diameter segment of the artery, so I elected to use angioplasty only for this. I used a Takeru 2.0 x 12 mm balloon inflated to 12 atmospheres. The result was very good. Next, the Takeru was also used to dilate the proximal PDA at 14 atmospheres. Next, a Synergy 2.5 x 16 mm drug-eluting stent was deployed in the proximal PDA at 14 atmospheres. The result was very good. Next, I turned my attention to the mid RCA. There was a calcified 70% stenosis with extended intermediate disease up until the proximal RCA. I elected to treat the entire segment. First, the lesion was predilated with NC Emerge 3.25 x 20 mm noncompliant balloon at 14 atmospheres. Next, a Synergy 3.5 x 38 mm drug-eluting stent was deployed in the mid segment of the RCA and deployed at 14 atmospheres. The final result was very good. There was 0% residual stenosis and normal ABDIFATAH-3 flow throughout the RCA and its branches. There was ABDIFATAH-2 flow at the beginning of the procedure in the right PDA. There was significant collateral circulation from the PDA into the LAD as well. At this point, the procedure completed. All catheters and wires removed from the body. The left radial sheath was removed and QuikClot hemostasis device was applied to obtain hemostasis. There were no apparent complications. TOTAL CONTRAST: 90 mL. TOTAL CONSCIOUS SEDATION TIME: 47 minutes. TOTAL FLUOROSCOPY TIME: 8 minutes and 48 seconds, 0.5 Gy. FINDINGS: Aortic pressure 97/47 (MAP 67). CORONARY ANGIOGRAM: Right coronary artery: This is a planned PCI procedure of the RCA. Please see the prior report for the details of the left coronary circulation. At the beginning of the procedure, the mid RCA had 70% stenosis and there was diffuse 50% to 70% stenosis throughout the prox to mid RCA as well. This was all treated with one long stent and there was good result with 0% residual stenosis. The distal RCA is patent. The [place] is a large vessel and was patent. The PDA has a proximal 80% stenosis, that was successfully treated with PCI. The PDA has a distal 80% stenosis, that was also treated with the angioplasty. At the end, there was 0% residual stenosis througho (more content not included)... Normal [facility] Covid-19 PCR (CVDTB)on 03-31 SARS-CoV-2 (COVID-19) RNA YARA+probe Ql (Unsp spec) Not detected Normal NOT DETECTED [facility] Comment on above: Result Comment: This test is not yet approved or cleared by the [place] FDA. When there are no FDA-approved or cleared tests available, and other criteria are met, FDA can make tests available under an emergency access mechanism called an Emergency Use Authorization (EUA). The EUA for this test is supported by the [place] of Health and Human Service's (HHS's) declaration that circumstances exist to justify the emergency use of in vitro diagnostics for the detection and/or diagnosis of the virus that causes COVID-19. This EUA will remain in effect (meaning this test can be used) for the duration of the COVID-19 declaration justifying emergency of IVDs, unless it is terminated or revoked by FDA (after which the test may no longer be used). When diagnostic testing is negative, the possibility of a false negative should be considered in the context of a patient's recent exposures and the presence of clinical signs and symptoms consistent with SARS-CoV-2. Performed By: #### D DIM #### [facility] [address] [place] [address] Dr. Kesha Aguero HEMOGRAM AND PLATELon 2021 Hematocrit (Bld) [Volume fraction] 41.6 % Normal 36.0-48.0 [facility] Comment on above: Performed By: #### C VDTBH #### [facility] [address] [place] [address] Dr. Kesha Aguero Hemoglobin (Bld) [Mass/Vol] 13.2 g/dL Normal 12.0-16.0 [facility] Comment on above: Performed By: #### C VDTBH #### [facility] [address] [place] [address] Dr. Kesha Aguero MCH (RBC) [Entitic mass] 26.2 pg Critically low 26.7-34 .0 [facility] Comment on above: Performed By: #### C VDTBH #### [facility] [address] [place] [address] Dr. Kesha Aguero MCHC (RBC) [Mass/Vol] 31.7 g/dL Normal 29.9-35.2 [facility] Comment on above: Performed By: #### C VDTBH #### [facility] [address] [place] [address] Dr. Kesha Aguero MCV (RBC) [Entitic vol] 82.7 fL Normal 81.0-99.0 [facility] Comment on above: Performed By: #### C VDTBH #### [facility] [address] [place] [address] Dr. Kesha Aguero PLT 272 103/ul Normal 150-450 [facility] Comment on above: Performed By: #### C VDTBH #### [facility] [address] [address] [address] Kesha Aguero RBC 5.03 106/ul Normal 4.20-5.40 [facility] Comment on above: Performed By: #### C VDTBH #### [facility] [address] [address] [address] Kesha Aguero WBC 5.9 103/ul Normal 4.0-11.0 [facility] Comment on above: Performed By: #### C VDTBH #### [facility] [address] [address] [address] Kesha Aguero PROF CHEM 8 (BAS METB)on Anion gap [Moles/Vol] 12.8 mmol/L Normal Th [facility] Comment on above: Performed By: #### D DIM #### [facility] [address] [place] [address] Dr. Kesha Aguero Calcium [Mass/Vol] 9.6 mg/dL Normal 8.5-10.1 [facility] Comment on above: Performed By: #### D DIM #### [facility] [address] [place] [address] Dr. Kesha Aguero Chloride [Moles/Vol] 105 mmol/L Normal 98-107 [facility] Comment on above: Performed By: #### D DIM #### [facility] [address] [address] [address] Kesha Aguero CO2 [Moles/Vol] 25.6 mmol/L Normal 21.0-32.0 [facility] Comment on above: Performed By: #### D DIM #### [facility] [address] [place] [address] Dr. Kesha Aguero Creatinine [Mass/Vol] 1.07 mg/dL Critically high 0.55-1.02 [facility] Comment on above: Performed By: #### D DIM #### [facility] [address] [place] [address] Dr. Kesha Aguero EGFR-AF CAMBODIAN 59 mL/min/1.73m2 Critically low >=60 [facility] Comment on above: Performed By: #### D DIM #### [facility] [address] [address] [address] Kesha Aguero EGFR-NON AF CAMBODIAN 49 mL/min/1.73m2 Critically low >=60 [facility] Comment on above: Performed By: #### D DIM #### [facility] [address] [address] [address] Kesha Aguero Glucose [Mass/Vol] 264 mg/dL Critically high 74-106 [facility] Comment on above: Performed By: #### D DIM #### [facility] [address] [address] [address] Kesha Aguero Potassium [Moles/Vol] 4.4 mmol/L Normal 3.5-5.1 [facility] Comment on above: Performed By: #### D DIM #### [facility] [address] [address] [address] Kesha Aguero Sodium [Moles/Vol] 139 mmol/L Normal 136-145 [facility] Comment on above: Performed By: #### D DIM #### [facility] [address] [address] [address] Kesha Aguero Urea nitrogen [Mass/Vol] 17.0 mg/dL Normal 7.0-18.0 [facility] Comment on above: Performed By: #### D DIM #### [facility] [address] [address] [address] Kesha Aguero Urea nitrogen/Creatinine [Mass ratio] 15.9 mg/mg Normal [facility] Comment on above: Performed By: #### D DIM #### [facility] [address] [address] [address] Kesha Aguero MAGNESIUMon 03-12-2022 Magnesium [Mass/Vol] 1.8 mg/dL Normal 1.8-2.4 [facility] Comment on above: Performed By: #### D DIM #### [facility] [address] [address] [address] Kesha Aguero PROF CHEM 8 (BAS METB)on 07- 13-2022 Anion gap [Moles/Vol] 13.9 mmol/L Normal [facility] Comment on above: Performed By: #### D DIM #### [facility] [address] [place] [address] Dr. Kesha Aguero Calcium [Mass/Vol] 9.8 mg/dL Normal 8.5-10.1 [facility] Comment on above: Performed By: #### D DIM #### [facility] [address] [address] [address] Kesha Aguero Chloride [Moles/Vol] 101 mmol/L Normal 98-107 [facility] Comment on above: Performed By: #### D DIM #### [facility] [address] [place] [address] Dr. Kesha Aguero CO2 [Moles/Vol] 24.8 mmol/L Normal 21.0-32.0 [facility] Comment on above: Performed By: #### D DIM #### [facility] [address] [place] [address] Dr. Kesha Aguero Creatinine [Mass/Vol] 1.28 mg/dL Critically high 0.55-1.02 [facility] Comment on above: Performed By: #### D DIM #### [facility] [address] [place] [address] Dr. Kesha Aguero EGFR-AF CAMBODIAN 48 mL/min/1.73m2 Critically low >=60 [facility] Comment on above: Performed By: #### D DIM #### [facility] [address] [place] [address] Dr. Kesha Aguero EGFR-NON AF CAMBODIAN 40 mL/min/1.73m2 Critically low >=60 [facility] Comment on above: Performed By: #### D DIM #### [facility] [address] [place] [address] Dr. Kesha Aguero Glucose [Mass/Vol] 214 mg/dL Critically high 74-106 [facility] Comment on above: Performed By: #### D DIM #### [facility] [address] [place] [address] Dr. Kesha Aguero Potassium [Moles/Vol] 4.7 mmol/L Normal 3.5-5.1 [facility] Comment on above: Performed By: #### D DIM #### [facility] [address] [address] [address] Kesha Aguero Sodium [Moles/Vol] 135 mmol/L Critically low 136-145 [facility] Comment on above: Performed By: #### D DIM #### [facility] [address] [address] [address] Kesha Aguero Urea nitrogen [Mass/Vol] 26.0 mg/dL Critically high 7.0-18 .0 [facility] Comment on above: Performed By: #### D DIM #### [facility] [address] [address] [address] Kesha Aguero Urea nitrogen/Creatinine [Mass ratio] 20.3 mg/mg Normal [facility] Comment on above: Performed By: #### D DIM #### [facility] [address] [address] [address] Kesha Aguero Cardiovascular Lab Reporton 2022 Cardiovascular Lab Report [facility] MR #: [id number] Department of Physician: Edison Gibbs M.D. Division of Service Date: 03/07/2022 Cardiology Birthdate: 1940 Adult Cardiovascular Room #: [address] [address] Cardiovascular Laboratory Report CLINICAL PRESENTATION: The patient is an 81-year-old female with past medical history significant for hypertension and type 2 diabetes mellitus. She was recently found to have congestive heart failure with EF 40%. She reports worsening fatigue and shortness of breath as well as chest and abdominal discomfort with exertion consistent with unstable angina CCS class 3. She had a cardiac stress test, which was abnormal with anterior ischemia. She now presents for right heart catheterization of coronary angiogram. FINAL IMPRESSION: 1. Right heart catheterization is relatively normal. 2. Coronary angiogram reveals severe multivessel coronary artery disease. The mid LAD has 100% chronic total occlusion (SCIENCE TUTOR). The ramus coronary artery has a proximal 99% stenosis that was treated successfully with PCI with a Synergy 2.5 x 16 mm drug-eluting stent. The circumflex is patent. The RCA has proximal and mid diffuse 70% stenosis, and the right PDA has 80% stenosis. The RCA is a large vessel and dominant and provides collateral circulation to the LAD territory. PLAN: 1. Medical therapy for secondary prevention of CAD s/p PCI. 2. Aspirin 81 mg daily, long-term. 3. Plavix 75 mg daily for 1 year. 4. High-intensity statin therapy. 5. Beta-reginaldo as tolerated. 6. Continue metoprolol extended release, Entresto, and Farxiga for systolic congestive heart failure. 7. Recommend staged procedure in 2-4 weeks to deal with RCA and right PDA disease. 8. Outpatient followup with [facility]. 9. Since the right heart catheterization showed very low filling pressures, I discontinued hydrochlorothiazide. Farxiga and Entresto both have diuretic affects, so she does not need a third medicine with diuretic effects. PROCEDURES: Coronary angiogram, right heart catheterization, ultrasound guidance for vascular access, PCI ramus coronary artery, conscious sedation 69 minutes. INDICATION: Unstable angina CCS class 3, acute systolic heart failure with EF 40%, abnormal cardiac stress test, abnormal echocardiogram. PROCEDURE DESCRIPTION: The patient was brought to cardiac catheterization lab in a fasting state. Informed written consent was obtained. She was prepped and draped in usual sterile fashion over the right neck and left wrist. Time-out was performed. She was given Versed and fentanyl for sedation. A 1% lidocaine was infiltrated over the right internal jugular vein. Using ultrasound guidance and micropuncture access technique, a 6-Portuguese sheath was placed in right internal jugular vein. Next, the Garvin catheter was advanced under fluoroscopic and hemodynamic monitoring to the right atrium. Pressure obtained in the right atrium, right ventricle, pulmonary artery, pulmonary capillary wedge position, oxygen saturations drawn from the pulmonary artery. Salma cardiac output and cardiac index were calculated. Garvin catheter was then removed. Next, using ultrasound guidance, the area over the left radial artery was anesthetized with 1% lidocaine and then a 6-Portuguese Terumo Glidesheath slender placed in the left radial artery. The radial anti-vasospasm cocktail of nitroglycerin 200 mcg and verapamil 2.5 mg administered through the sheath. All catheters and sheaths were made over the 24tidy guidewire. A 5-Portuguese JR 5 was used to engage the right coronary artery. 5-Portuguese JL 3.5 was used to engage the left main coronary artery. Coronary angiogram was performed in multiple orthogonal views using hand injection of contrast. 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 I elected to proceed with PCI given the patient's advanced age. A Cordis 6-Portuguese XB 3.0 guide was engaged in left main coronary artery. Heparin anticoagulation was used for this procedure. ACT was maintained greater than 200 seconds. Run-through wire was manipulated into the coronary arteries. First, I probed the LAD and it did in fact behave as a SCIENCE TUTOR. Therefore, I turned my attention to the ramus coronary artery. The proximal ramus had 99% stenosis. The run-through wire has been delivered to the distal ramus. The lesion was predilated with the [place] Emerge 2.5 x 15 mm balloon at 12 atmospheres. Next, a Synergy 2.5 x 16 mm drug-eluting stent was deployed in the proximal ramus. Careful attention was placed to land the stent at the ostium of the ramus and not protrude into the left main coronary artery. The stent was deployed at 12 atmospheres. Next, the stent was post dilated with the NC Emerge 2.5 x 15 mm balloon. The b (more content not included)... Normal [facility] POC SARS COV2 IDon 2 SARS-CoV-2 (COVID-19) RNA YARA+probe Ql (Unsp spec) Negative Normal NEGATIVE [facility] Comment on above: Result Comment: ID N OW COVID-19 assay performed on the [employer] Instrument is a rapid molecular in vitro diagnostic test utilizing an isothermal nucleic acid amplification technology intended for the qualitative detection of nucleic acid from the SARS-CoV-2 virus in direct anterior nasal (nasal), nasopharyngeal or throat swabs from individuals who are suspected of COVID-19 by their healthcare provider within the first seven days of the onset of symptoms. Testing is limited to laboratories certified under the Clinical Laboratory Improvement Amendments of 1988 (CLIA), 42 U.S.C. ???263a,that meet the requirements to perform high, moderate, or waived complexity tests. The ID NOW COVID-19 assay is also authorized for use at the Point of Care (POC), i.e., in patient care settings operating under a CLIA Certificate of Waiver, Certificate of Compliance, or Certificate of Accreditation. Performed By: #### 3 1921 #### [facility] [address] [place] [address], [facility] CBC AUTO DIFFon 03-01-2022 BASO # 0.1 103/ul Normal 0.0-0.1 [facility] Comment on above: Performed By: #### C VDTBH #### [facility] [address] [place] [address] Dr. Kesha Aguero Basophils/100 WBC (Bld) 0.7 % Normal 0.2-2.0 [facility] Comment on above: Performed By: #### C VDTBH #### [facility] [address] [place] [address] Dr. Kesha Aguero EO # 0.1 103/ul Normal 0.0-0.7 [facility] Comment on above: Performed By: #### C VDTBH #### [facility] [address] [place] [address] Dr. Kesha Aguero Eosinophils/100 WBC (Bld) 1.2 % Normal 0.9-7.0 [facility] Comment on above: Performed By: #### C VDTBH #### [facility] [address] [place] [address] Dr. Kesha Aguero Erythrocyte distribution width (RBC) [Ratio] 14.0 % Normal 11.0-15.0 [facility] Comment on above: Performed By: #### C VDTBH #### [facility] [address] [place] [address] Dr. Kesha Aguero Hematocrit (Bld) [Volume fraction] 40.9 % Normal 36.0-48.0 [facility] Comment on above: Performed By: #### C VDTBH #### [facility] [address] [place] [address] Dr. Kesha Aguero Hemoglobin (Bld) [Mass/Vol] 13.1 g/dL Normal 12.0-16.0 [facility] Comment on above: Performed By: #### C VDTBH #### [facility] [address] [place] [address] Dr. Kesha Aguero IG # 0.03 10e3/ul Normal 0.00-0.03 [facility] Comment on above: Performed By: #### C VDTBH #### [facility] [address] [place] [address] Dr. Kesha Aguero IG % 0.3 % Normal 0.0-0.5 [facility] Comment on above: Performed By: #### C VDTBH #### [facility] [address] [place] [address] Dr. Kesha Aguero LYMPH # 3.4 103/ul Normal 1.2-3.8 [facility] Comment on above: Performed By: #### C VDTBH #### [facility] [address] [place] [address] Dr. Kesha Aguero Lymphocytes/100 WBC (Bld) 36.9 % Normal 20.5-60.0 [facility] Comment on above: Performed By: #### C VDTBH #### [facility] [address] [place] [address] Dr. Kesha Aguero MANUAL DIFF REQ NO Normal [facility] Comment on above: Performed By: #### C VDTBH #### [facility] [address] [place] [address] Dr. Kesha Aguero MCH (RBC) [Entitic mass] 26.5 pg Critically low 26.7-34 .0 [facility] Comment on above: Performed By: #### C VDTBH #### [facility] [address] [place] [address] Dr. Kesha Aguero MCHC (RBC) [Mass/Vol] 32.0 g/dL Normal 29.9-35.2 [facility] Comment on above: Performed By: #### C VDTBH #### [facility] [address] [place] [address] Dr. Kesha Aguero MCV (RBC) [Entitic vol] 82.8 fL Normal 81.0-99.0 [facility] Comment on above: Performed By: #### C VDTBH #### [facility] [address] [place] [address] Dr. Kesha Aguero MONO # 0.6 103/ul Normal 0.3-0.8 [facility] Comment on above: Performed By: #### C VDTBH #### [facility] [address] [place] [address] Dr. Kesha Aguero Monocytes/100 WBC (Bld) 6.5 % Normal 1.7-12.0 [facility] Comment on above: Performed By: #### C VDTBH #### [facility] [address] [place] [address] Dr. Kesha Aguero NEUT # 4.9 103/ul Normal 1.4-6.5 [facility] Comment on above: Performed By: #### C VDTBH #### [facility] [address] [place] [address] Dr. Kesha Aguero Neutrophils/100 WBC (Bld) 54.4 % Normal 43.0-75.0 [facility] Comment on above: Performed By: #### C VDTBH #### [facility] [address] [place] [address] Dr. Kesha Aguero Platelet mean volume (Bld) [Entitic vol] 9.5 fL Normal 9.5-13.5 [facility] Comment on above: Performed By: #### C VDTBH #### [facility] [address] [place] [address] Dr. Kesha Aguero PLT 271 103/ul Normal 150-450 [facility] Comment on above: Performed By: #### C VDTBH #### [facility] [address] [place] [address] Dr. Kesha Aguero RBC 4.94 106/ul Normal 4.20-5.40 [facility] Comment on above: Performed By: #### C VDTBH #### [facility] [address] [place] [address] Dr. Kesha Aguero WBC 9.1 103/ul Normal 4.0-11.0 [facility] Comment on above: Performed By: #### C VDTBH #### [facility] [address] [place] [address] Dr. Kesha Aguero [facility]on SARS-CoV-2 (COVID-19) RNA YARA+probe Ql (Unsp spec) Not detected Normal NOT DETECTED [facility] Comment on above: Result Comment: When diagnostic testing is negative, the possibility of a false negative should be considered in the context of a patient's recent exposures and the presence of clinical signs and symptoms consistent with SARS-CoV-2. This test is not yet approved or cleared by the [place] FDA. When there are no FDA-approved or cleared tests available, and other criteria are met, FDA can make tests available under an emergency access mechanism called an Emergency Use Authorization (EUA). The EUA for this test is supported by the [place] of Health and Human Service's declaration that circumstances exist to justify the emergency use of in vitro diagnostics for the detection and/or diagnosis of the virus that causes COVID-19. This EUA will remain in effect for the duration of the COVID-19 declaration justifying emergency of IVDs, unless it is terminated or revoked by the FDA (after which the test may no longer be used). Performed By: #### A CETON #### [facility] [address] [place] [address] Dr. Kesha Aguero PROF CHEM 8 (BAS METB)on Anion gap [Moles/Vol] 14.3 mmol/L Normal [facility] Comment on above: Performed By: #### B MP #### [facility] [address] [place] [address] Dr. Kesha Aguero Calcium [Mass/Vol] 9.7 mg/dL Normal 8.5-10.1 [facility] Comment on above: Performed By: #### B MP #### [facility] [address] [place] [address] Dr. Kesha Aguero Chloride [Moles/Vol] 100 mmol/L Normal 98-107 [facility] Comment on above: Performed By: #### B MP #### [facility] [address] [place] [address] Dr. Kesha Aguero CO2 [Moles/Vol] 27.2 mmol/L Normal 21.0-32.0 [facility] Comment on above: Performed By: #### B MP #### [facility] [address] [address] [address] Kesha Aguero Creatinine [Mass/Vol] 1.34 mg/dL Critically high 0.55-1.02 [facility] Comment on above: Performed By: #### B MP #### [facility] [address] [address] [address] Kesha Aguero EGFR-AF CAMBODIAN 46 mL/min/1.73m2 Critically low >=60 [facility] Comment on above: Performed By: #### B MP #### [facility] [address] [address] [address] Kesha Aguero EGFR-NON AF CAMBODIAN 38 mL/min/1.73m2 Critically low >=60 [facility] Comment on above: Performed By: #### B MP #### [facility] [address] [address] [address] Kesha Aguero Glucose [Mass/Vol] 232 mg/dL Critically high 74-106 [facility] Comment on above: Performed By: #### B MP #### [facility] [address] [address] [address] Kesha Aguero Potassium [Moles/Vol] 4.5 mmol/L Normal 3.5-5.1 [facility] Comment on above: Performed By: #### B MP #### [facility] [address] [address] [address] Kesha Aguero Sodium [Moles/Vol] 137 mmol/L Normal 136-145 [facility] Comment on above: Performed By: #### B MP #### [facility] [address] [address] [address] Kesha Aguero Urea nitrogen [Mass/Vol] 22.0 mg/dL Critically high 7.0-18 .0 [facility] Comment on above: Performed By: #### B MP #### [facility] [address] [address] [address] Kesha Aguero Urea nitrogen/Creatinine [Mass ratio] 16.4 mg/mg Normal [facility] Comment on above: Performed By: #### B #### [facility] [address] [address] [address] Kesha Aguero ECHOCARDIO M/2D COMPLETEon 0 02-11-2022 ECHOCARDIO M/2D COMPLETE Patient: TERE ARAGON Exam Date: 02/11/2022 : 1940 Gender:F Ordering : DR RODRICK BUTLER M.D. Admission #: [id number] Family : Order #: [id number] CLICK HERE TO VIEW EXAM ECHOCARDIOGRAM REPORT PROCEDURE: CARDIO PULMONARY ECHOCARDIO M/2D COMP INDICATIONS: Chest pain, dyspnea, abnormal ECG COMPARISON: None. DESCRIPTION: COMPLETE ECHOCARDIOGRAM Real-time transthoracic echocardiography with 2D, M-mode, spectral and color flow Doppler performed. QUALITY: Technical quality was good. LEFT VENTRICLE: Normal chamber size. Thickened septal wall. There is hypokinesis of the mid and distal anteroseptum, mid and distal anterior wall and apex. Left ventricular systolic function is mildly to moderately reduced. LV EF: Mildly to moderately reduced left ventricular ejection fraction, (40%). DIASTOLIC: Grade II diastolic dysfunction. ATRIAL SEPTUM: Visually appears intact. LEFT ATRIUM: Normal chamber size. RIGHT ATRIUM: Normal chamber size. RIGHT VENTRICLE: Normal chamber size. Normal right ventricular systolic function. TRICUSPID VALVE: Normal mobility and thickness. No stenosis with no regurgitation. MITRAL VALVE: Mildly thickened with normal mobility. No evidence of mitral valve stenosis. Mild mitral annular calcification. Mild mitral regurgitation. AORTIC VALVE: Normal trileaflet appearance. Mildly calcified aortic valve. Mildly diminished mobility. No significant aortic valve stenosis. Trivial aortic regurgitation. AORTIC ROOT: Normal diameter and appearance. PULMONIC VALVE: Normal thickness and mobility. No stenosis. No regurgitation. PERICARDIUM: No evidence of pericardial effusion. IVC: Collapses with inspirations. PLEURA: CONCLUSION: 1. Left ventricular systolic function is mildly to moderately reduced. Segmental wall motion abnormalities with hypokinesis of the mid and distal anterior septum, mid and distal anterior wall and apex. LVEF is 40%. 2. Normal right ventricular systolic function. 3. No significant valvular dysfunction. Adult Echocardiography Procedure Report Left Ventricle LVEDD (3.7 - 5.6 cm): 4.50 cm LVESD (2.2 - 4.0 cm): 3.35 cm LVIVS thickness (0.6 - 1.2 cm): 1.27 cm LVPW thickness (0.5 - 1.0 cm): 9.91 mm e': 6.25 cm/s E - e': 11.90 LVOT Area (cm2): 3.14 cm2 Peak Velocity (LVOT): 69.90 cm/s Mean Velocity (LVOT): 50.20 cm/s LVOT Diameter 2.00 cm Left Ventricular Ejection Fraction: 40 % Left Atrium LA Volume Index (2D A2C): 25.50 ml/m2 Left Atrium Systolic Dimension: 3.60 cm Left Atrium Systolic Area(A2C): 17.90 cm2 Left Atrium Systolic Area(A4C): 23.90 cm2 Left Atrium Systolic Volume(A2C): 81736 mm3 Left Atrium Systolic Volume(A4C): 94931 mm3 Mitral Valve MV E to A Ratio: 0.70 Mitral Valve A-Wave Peak Velocity: 100.00 cm/s Mitral Valve E-Wave Peak Velocity: 74.50 cm/s Deceleration Time: 296 ms Right Ventricle Aorta AO Root Diam: 3.10 cm Aortic Valve Peak Velocity (Antegrade Flow): 159.00 cm/s, 159.00 cm/s AoV Area (Peak Gaby): 1.27 cm2 AoV Area (VTI): 1.32 cm2 Peak Velocity(Antegrade Flow): 179.00 cm/s Peak Gradient(Antegrade Flow): 13 mm[Hg] Mean Velocity(Antegrade Flow): 117.00 cm/s Mean Gradient(Antegrade Flow): 6 mm[Hg], 6 mm[Hg] Velocity Time Integral: 45.80 cm Tricuspid Valve Pulmonic Valve Peak Velocity: 86.60 cm/s Peak Gradient: 3 mm[Hg] Right Atrium Dictated by: Enrique Jackson M.D. on 02/11/2022 at 18:43 Approved by: Enrique Jackson M.D. on 02/11/2022 at 18:48 Normal [facility] NM STRESS/REST MULTIon 02-11 NM STRESS/REST MULTI Patient: TERE ARAGON Exam Date: 02/11/2022 : 1940 Gender:F Ordering : DR RODRICK BUTLER M.D. Admission #: [id number] Family : Order #: [id number] CLICK HERE TO VIEW EXAM RADIOLOGY REPORT PROCEDURE: RADIONUCLIDE IMAGING STRESS/REST MULTI COMPARISON: None. INDICATIONS: Dyspnea, chest discomfort TECHNIQUE: Exam Description: Stress/Rest one day protocol gated SPECT Rest Imagin.6 mCi Tc-99m Cardiolite IV on 02/11/2022 Stress Imaging 30.1 mCi Tc-99m Cardiolite IV on 02/11/2022 Exercise Protocol: 0.4 mg Lexiscan given IV Heart Rate (bpm): Rest: 58 Max: 88 PMHR: 63 Blood Pressure: Rest: 156/82 Max: 164/80 Symptoms: chest discomfort Rest and peak stress ECG findings were non-diagnostic and the exercise portion of the study was Non-diagnostic per attending physician Dr. Odonnell due toabnormal twave changes. For more details please see separate cardiac stress test report. FINDINGS: QUALITY OF STUDY: Excellent. PERFUSION DEFECT: LOCATION: Mid-anterior. Mid-anteroseptal. Mid-anterolateral. Apical anterior. [place]. SIZE: Large (5 or more segments). SEVERITY: Severe. TYPE: Mixed. WALL MOTION: Severe hypokinesis: Mid and apical left ventricle. Mild hypokinesis at base of ventricle. LV SIZE: Enlarged; EDV 130 mL. TID / TCD: None; 1.1 LVEF: Abnormal. Calculated EF 39%. SUMMARY: Myocardial perfusion imaging study has ABNORMAL findings. CONCLUSION: 1. Large area of absent perfusion involving the anterior wall and anterior aspect of the lateral wall and septum involving the mid and apically portion of the ventricle with slight reperfusion at the margins. 2. Marked hypokinesis of the left ventricle, slightly greater movement at the base of the heart. 3. Left ventriculomegaly, 130 mL. 4. Abnormal low ejection fraction, 39%. Dictated by: Louis Quintana M.D. on 02/11/2022 at 14:35 Approved by: Louis Quintana M.D. on 02/11/2022 at 14:41 Normal [facility] Vital Signs Date Time Vital Sign Value Performing Clinician Facility 09-22-2022 12:00-0500 Body height 162.56 cm Heather Ryder Other [facility] Other 09-22-2022 12:00-0500 Body mass index (BMI) [Ratio] 24.59 kg/m2 Heather Scally Other [facility] Other 09-22-2022 12:00-0500 Body weight 65 kg Heather Scally Other [facility] Other 09-22-2022 12:00-0500 Diastolic blood pressure 76 mm[Hg] Heather Scally Other [facility] Other 09-22-2022 12:00-0500 Respiratory rate 18 /min Heather Scally Other [facility] Other 09-22-2022 12:00-0500 SaO2% (BldA) [Mass fraction] 100 % Heather Scally Other [facility] Other 09-22-2022 12:00-0500 Systolic blood pressure 136 mm[Hg] Heather Scally Other [facility] Other 05-11-2022 11:34-0400 Body temperature 97.3 [degF] II Rodrick Butler Work Phone: [facility] 05-11-2022 11:34-0400 Diastolic blood pressure 75 mm[Hg] II Rodrick Butler Work Phone: [facility] 05-11-2022 11:34-0400 Heart rate 78 /min II Rodrick Butler Work Phone: [facility] 05-11-2022 11:34-0400 Respiratory rate 20 /min II Rodrick Butler Work Phone: [facility] 05-11-2022 11:34-0400 SaO2% (BldA) [Mass fraction] 95 % II Rodrick Butler Work Phone: [facility] 05-11-2022 11:34-0400 Systolic blood pressure 122 mm[Hg] II Rodrick Butler Work Phone: [facility] 05-11-2022 06:00-0400 Body weight 69 kg II Rodrick Butler Work Phone: [facility] 05-09-2022 09:40-0400 Body height 170.18 cm II Rodrick Luke Work Phone: [facility] Encounters Encounter Date Encounter Type Care Provider Facility Start: 09-05-2023 Evaluation and manag ement of [facility] Start: 08-13-2023 End: 08-13-2023 ambulatory RODRICK BUTLRE Not Available Start: 07-29-2023 End: 07-29-2023 ambulatory RODRICK BUTLER Not Available Start: 06-03-2023 End: 06-03-2023 ambulatory [facility] Start: 12-17-2022 End: 12-17-2022 ambulatory TAYLOR CRISOSTOMO [facility] Start: 11-24-2022 End: 11-24-[address] RODRICK BUTLER Facility:[facility] Start: 09-29-2022 End: 09-30-[address] RODRICK BUTLER Facility:[facility] Start: 09-22-2022 (New DM) [facility] Start: 09-22-2022 End: 09-22-2022 ambulatory Rodrick Butler Facility:[facility] Start: 09-08-2022 End: 09-08-2022 ambulatory [facility] Start: 08-28-2022 End: 08-29-[address] RODRICK BUTLER Facility:[facility] Start: 08-18-2022 End: 08-19-[address] RODRICK BUTLER Facility:[facility] Start: 06-11-2022 End: 06-12-[address] RODRICK BUTLER Facility:[facility] Start: 06-06-2022 End: 06-06-2022 ambulatory REJI CARLOS Facility:[facility] Start: 05-11-2022 ambulatory Itz [place] lity:[id number] Start: 05-10-2022 ambulatory Itz Arguello II Faci lity:[id number] Start: 05-09-2022 ambulatory Itz Arguello II Faci lity:[id number] Start: 05-09-2022 End: 05-11-2022 Evaluation and management of inpatient Rodrick Butler Facility:[facility] Start: 05-09-2022 End: 05-11-2022 Evaluation and management of inpatient II Rodrick Butler Work Phone: [facility] Start: 05-09-2022 End: 05-09-2022 ambulatory Itz Arguello II Facility:[id number] Start: 05-02-2022 Encounter for other preprocedural examination [facility] Start: 05-02-2022 Encounter for preprocedural laboratory examination [facility] Start: 05-01-2022 End: 05-02-[address] RODRICK BUTLER Facility:[facility] Start: 05-01-2022 End: 05-02-2022 Encounter for other preprocedural examination DR RODRICK BUTLER Facility:[facility] Start: 04-21-2022 End: 04-22-2022 ambulatory RODRICK BUTLER Facility:[facility] Start: 04-18-2022 End: 04-19-2022 ambulatory TAYLOR CRISOSTOMO Facility:[facility] Start: 03-12-2022 End: 03-13-2022 ambulatory TAYLOR CRISOSTOMO Facility:[facility] Start: 03-07-2022 End: 2022 ambulatory RODRICK BUTLER Facility:[facility] Start: 03-01-2022 End: 03-02-2022 ambulatory TAYLOR CRISOSTOMO Facility:[facility] Start: 02-11-2022 End: 02-12-[address] RODRICK BUTLER Facility:[facility] Procedures Date Procedure Procedure Detail Performing Clinician Start: 12-17-2022 Follow-up visit Follow-up TAYLOR CRISOSTOMO Plan of Treatment Date Care Activity Detail Author Start: 05-11-2022 [facility] Work Phone: Start: 05-09-2022 Hospital admission [facility] Work Phone: Start: 05-09-2022 Referral to evening sitter [facility] Work Phone: Patient Education Acid Reflux an d GERD in Adults (DC) Irritable Bowel Syndrome (DC) Coronary Artery Disease (DC) [facility] Work Phone: Patient referral [facility] Work Phone: Payers Date Payer Category Payer Medicare [id number] 2022 Self-pay [id number] 1960 Private Health Insurance [id number] 1940 Unknown [id number] 2.16.840.1.869584.3.579. 2.647 1940 Unknown [id number] 2.16.840.1.330787.3.579. 2.647 1940 Unknown [id number] 2.16.840.1.406610.3.579. 2.356 1940 Unknown [id number] 2.16.840.1.862135.3.579. 2.356 1940 Unknown [id number] 2.16.840.1.983303.3.579. 2.356 1940 Unknown [id number] 2.16.840.1.146393.3.579. 2.356 1939 Unknown [id number] 2.16.840.1.351114.3.579. 2.593 1939 Unknown [id number] 2.16.840.1.503092.3.579. 2.593 1939 Unknown [id number] 2.16.840.1.369987.3.579. 2.593 1939 Unknown [id number] 2.16.840.1.443932.3.579. 2.593 1939 Unknown [id number] 2.16.840.1.572440.3.579. 2.593 1939 Unknown [id number] 2.16.840.1.570536.3.579. 2.593 1939 Unknown [id number] 2.16.840.1.078479.3.579. 2.593 1939 Unknown [id number] 2.16.840.1.233983.3.579. 2.593 1939 Unknown [id number] 2.16.840.1.218424.3.579. 2.593 1939 Unknown [id number] 2.16.840.1.598740.3.579. 2.593 1939 Unknown [id number] 2.16.840.1.166679.3.579. 2.593 1939 Unknown [id number] 2.16.840.1.862818.3.579. 2.593 1939 Unknown [id number] 2.16.840.1.788482.3.579. 2.593 1939 Unknown [id number] 2.16.840.1.791176.3.579. 2.1259 1939 Unknown [id number] 2.16840.1.416530.3.579. 2.1259 Private Health Insurance [id number] Unknown Equitable Insurance-[facility] [id number] Unknown [id number] 2.16840.1.374755.3.579. 2.531 Unknown [id number] 2.16840.1.136879.3.579. 2.531 Social History Date Type Detail Facility Start: 05-09-2022 Tobacco smoking status NHIS Never smoked tobacco (finding) [facility] Start: 1940 Sex Assigned At Female F [facility] Sex Assigned At Sex Assigned At Bir th [facility] [employer] Other Medical Equipment Procedure Code Equipment Code Equipment Origin al Text Equipment Identifier Dates Accu-Chek Briana Test Strip Start: 01-18-2013 Goals Date Patient Goal Desired Activity /State Functional Status Date Assessment Result Facility 05-11-2022 Functional status Patient at Baseline [facility] Work Phone: Mental Status Date Assessment Result Facility 05-11-2022 Cognitive function Cognitive Sta tus Patient at Baseline [facility] Work Phone: Clinical Notes 03-31-2022 to 06-03-2023 Note Date & Type Note Facility 06-03-2023 Note [facility] Note Chief Complaint: Patient here for 6 mo follow up chronic systolic heart failure and CAD. Doing well. Denies chest pain, SOB, LE edema, and palpitations. Gets vertigo sometimes. Also c/o coldness in her LE and hands. Denies associated discoloration or pain. HPI: Tere Aragon is a 83 y.o. female history of hypertension, heart failure with reduced ejection fraction, dyslipidemia Here in routine follow-up Doing well; no new symptoms Cardiology ROS: Review of Systems Constitutional: Positive for chills. Neurological: Positive for light-headedness and vertigo. All other systems reviewed and are negative. Past Medical History She has a past medical history of CHF (congestive heart failure) ([facility]), Coronary artery disease, Diabetes mellitus ([facility]), and Hyperlipidemia. Surgical History She has a past surgical history that includes Cardiac catheterization (03/07/2022); Cardiac catheterization (04/21/2022); Appendectomy; Hysterectomy; and Coronary stent placement. Social History She reports that she has never smoked. She has never used smokeless tobacco. She reports that she does not currently use alcohol. No history on file for drug use. Family History Family History Problem Relation Name Age of Onset Hypertension Mother Coronary artery disease Mother Coronary artery disease Father Hypertension Father Hypertension Sister Coronary artery disease Brother Allergies Sulfa (sulfonamide antibiotics) and Empagliflozin Medications Current Outpatient Medications: aspirin 81 mg chewable tablet, Chew 1 tablet every day by oral route for 90 days., Disp: , Rfl: atorvastatin (Lipitor) 80 mg tablet, Take 80 mg by mouth at bedtime., Disp: , Rfl: carvedilol (Coreg) 12.5 mg tablet, Take 1 tablet (12.5 mg) by mouth with breakfast and with evening meal., Disp: 180 tablet, Rfl: 3 clopidogrel (Plavix) 75 mg tablet, 1 (one) time each day at the same time., Disp: , Rfl: cyproheptadine (Periactin) 4 mg tablet, Take 8 mg by mouth at bedtime., Disp: , Rfl: dapagliflozin (Farxiga) 10 mg, Take 1 tablet (10 mg) by mouth once daily as directed. (Patient taking differently: Take 10 mg by mouth in the morning and at bedtime.), Disp: 30 tablet, Rfl: 3 dorzolamide-timoloL (Cosopt) 22.3-6.8 mg/mL ophthalmic solution, instill 1 (ONE) DROP IN THE RIGHT EYE TWICE DAILY, Disp: , Rfl: Lantus Solostar U-100 Insulin 100 unit/mL (3 mL) pen, Inject under the skin in the morning and at bedtime. 25 units AM, 17 units PM, Disp: , Rfl: metoprolol succinate XL (Toprol-XL) 50 mg 24 hr tablet, Take 50 mg by mouth in the morning., Disp: , Rfl: rOPINIRole (Requip) 0.25 mg tablet, 1 (one) time each day at the same time., Disp: , Rfl: sacubitriL-valsartan (Entresto) 24-26 mg tablet, Take 1 tablet by mouth in the morning and at bedtime., Disp: 60 tablet, Rfl: 3 zolpidem (Ambien) 10 mg tablet, Take 10 mg by mouth at bedtime., Disp: , Rfl: Last Recorded Vitals BP 144/67 (BP Location: Left arm, Patient Position: Sitting) Pulse 53 Ht 1.702 m (5' 7 ) Wt 69.4 kg (153 lb) SpO2 98% BMI 23.96 kg/m??? Physical Examination: GENERAL: alert and oriented x3, well developed, in no acute distress. HEAD: atraumatic, normocephalic. EYES: ROSHAN, EOMI. NECK: trachea midline, no JVD present, no carotid bruits present. CARDIAC: S1, S2 present. RRR. No murmur, rubs, or gallops. RESPIRATORY: CTAB, no increased effort of breathing, no rales, rhonchi, or wheezing. ABDOMEN: soft, nontender, nondistended. EXTREMITIES: no lower extremity edema, peripheral pulses are 2+ bilaterally. No rash/skin discoloration present. NEURO: strength/sensation equal and symmetric in bilateral upper and lower extremities. PSYCH: appropriate mood, affect, and judgement. CV Testing: CVL report FINAL IMPRESSION: 03/07/22 1. Right heart catheterization is relatively normal. 2. Coronary angiogram reveals severe multivessel coronary artery disease. The mid LAD has 100% chronic total occlusion ([employer]). The ramus coronary artery has a proximal 99% stenosis that was treated successfully with PCI with a Synergy 2.5 x 16 mm drug-eluting stent. The circumflex is patent. The RCA has proximal and mid diffuse 70% stenosis, and the right PDA has 80% stenosis. The RCA is a large vessel and dominant and provides collateral circulation to the LAD territory. PLAN: 1. Medical therapy for secondary prevention of CAD s/p PCI. 2. Aspirin 81 mg daily, long-term. 3. Plavix 75 mg daily for 1 year. 4. High-intensity statin therapy. 5. Beta-reginaldo as tolerated. 6. Continue metoprolol extended release, Entresto, and Farxiga for systolic congestive heart failure. 7. Recommend staged procedure in 2-4 weeks to deal with RCA and right PDA disease. 8. Outpatient followup with [facility]. 9. Since the right heart catheterization showed very low filling pressures, I discontinued hydrochlorothiazide (more content not included)... [facility] 12-17-2022 Note Coronary artery dise ase is stable without any concerning symptoms Continue GDMT- ASA, plavix, coreg continue risk factor modifications- heart healthy diet, regular exercise as tolerated and continue all medications. [facility] 12-17-2022 Note [facility] II- currently e uvolemic and without exacerbation Continue GDMT- ASA lipitor, coreg, farxiga, entresto Monitor daily weights, I&O, fluid restriction 1.5-2L/day, renal function and electrolytes- please maintain K+>4 and Mg > [address] [facility] 12-17-2022 Note Continue DAPT for 1 year from 04/21/22 implantation of DEC to RCA [facility] 12-17-2022 Note B/p at home is well controlled Continue all medications B/p may be elevated here r/t white coat syndrome [facility] 12-17-2022 Note Continue statin [facility] 12-17-2022 Note [facility] PROGR ESS NOTE HPI: Tere Aragon is a 82 y.o. female here for routine f/U for HTN, Chronic HFrEF, HPL. Overall pt states she is doing well, states lightheadedness/dizziness is much improved after PCP treated her for vertigo. States b/p at home is always 120-130/70-80- and well controlled Review of Systems Constitutional: Negative for malaise/fatigue. Cardiovascular: Positive for leg swelling. Negative for chest pain, dyspnea on exertion, irregular heartbeat, near-syncope, palpitations and syncope. Swelling happens regularly; goes away after rest. Neurological: Negative for dizziness, headaches and light-headedness. Visit Vitals BP 148/71 (BP Location: Left arm, Patient Position: Sitting) Pulse 52 Ht 1.702 m (5' 7 ) Wt 69 kg (152 lb 3.2 oz) SpO2 100% BMI 23.84 kg/m??? Smoking Status Never BSA 1.81 m??? Allergies Allergen Reactions Sulfa (Sulfonamide Antibiotics) Swelling Empagliflozin Pt gets yeast infections when taking this medication Medications: Current Outpatient Medications on File Prior to Visit Medication Sig Dispense Refill aspirin 81 mg chewable tablet Chew 1 tablet every day by oral route for 90 days. atorvastatin (Lipitor) 80 mg tablet Take 80 mg by mouth at bedtime. carvedilol (Coreg) 12.5 mg tablet Take 1 tablet (12.5 mg) by mouth with breakfast and with evening meal. 180 tablet 3 clopidogrel (Plavix) 75 mg tablet 1 (one) time each day at the same time. cyproheptadine (Periactin) 4 mg tablet Take 8 mg by mouth at bedtime. dapagliflozin (Farxiga) 10 mg Take 1 tablet (10 mg) by mouth once daily as directed. (Patient taking differently: Take 10 mg by mouth in the morning and at bedtime.) 30 tablet 3 dorzolamide-timoloL (Cosopt) 22.3-6.8 mg/mL ophthalmic solution instill 1 (ONE) DROP IN THE RIGHT EYE TWICE DAILY Lantus Solostar U-100 Insulin 100 unit/mL (3 mL) pen Inject under the skin in the morning and at bedtime. 25 units AM, 17 units PM metoprolol succinate XL (Toprol-XL) 50 mg 24 hr tablet Take 50 mg by mouth in the morning. sacubitriL-valsartan (Entresto) 24-26 mg tablet Take 1 tablet by mouth in the morning and at bedtime. 60 tablet 3 zolpidem (Ambien) 10 mg tablet Take 10 mg by mouth at bedtime. rOPINIRole (Requip) 0.25 mg tablet 1 (one) time each day at the same time. No current facility-administered medications on file prior to visit. Physical Exam: Constitutional: Appearance: Normal appearance. Without apparent distress HENT: Head: Normocephalic and atraumatic. Nose: Nose normal. Mouth/Throat: Mouth: Mucous membranes are moist. Eyes: Extraocular Movements: Extraocular movements intact. Conjunctiva/sclera: Conjunctivae normal. Neck: Vascular: No JVD. Cardiovascular: Rate and Rhythm: Normal rate and regular rhythm. Pulses: Dorsalis pedis pulses are 3 on the right side and 3on the left side. Posterior tibial pulses are 3 on the right side and 3 on the left side. Heart sounds: Normal heart sounds, S1 normal and S2 normal. Pulmonary: Effort: Pulmonary effort is normal. Breath sounds: Normal breath sounds. Abdominal: General: Bowel sounds are normal. Palpations: Abdomen is soft. Musculoskeletal: General: Normal range of motion. Cervical back: Normal range of motion. Right lower leg: No edema. Left lower leg: No edema. BLE varicosities Skin: General: Skin is warm and dry. Capillary Refill: Capillary refill takes less than 2 seconds. Neurological: General: No focal deficit present. Mental Status: She is alert and oriented to person, place, and time. Psychiatric: Mood and Affect: Mood normal. Behavior: Behavior normal. Thought Content: Thought content normal. Judgment: Judgment normal. Labs: 11/24/22 CBC normal Renal function normal Liver function stable BNP 708- elevated Last lab values have been reviewed CV Testing: Echo 08/26/22 Echo 02/11/22 LVSF reduced EF 40% wall motion abnormalites noted normal RV systolic function no significant valvular dysfunction Stress test 02/11/22 CVL report FINAL IMPRESSION: 03/07/22 1. Right heart catheterization is relatively normal. 2. Coronary angiogram reveals severe multivessel coronary artery disease. The mid LAD has 100% chronic total occlusion ([employer]). The ramus coronary artery has a proximal 99% stenosis that was treated successfully with PCI with a Synergy 2.5 x 16 mm drug-eluting stent. The circumflex is patent. The RCA has proximal and mid diffuse 70% stenosis, and the right PDA has 80% stenosis. The RCA is a large vessel and dominant and provides collateral circulation to the LAD territory. PLAN: 1. Medical therapy for secondary prevention of CAD s/p PCI. 2. Aspirin 81 mg daily, long-term. 3. Plavix 75 mg daily for 1 year. 4. High-intensity statin therapy. 5. Beta-reginaldo as tolerated. 6. Continue metoprolol extended release, Entresto, and Farxiga for systolic congestive heart failure. 7. Recommend s (more content not included)... [facility] 12-17-2022 Note Review of Systems Constitutional: Negative for malaise/fatigue. Cardiovascular: Positive for leg swelling. Negative for chest pain, dyspnea on exertion, irregular heartbeat, near-syncope, palpitations and syncope. Swelling happens regularly; goes away after rest. Neurological: Negative for dizziness, headaches and light-headedness. [facility] 09-22-2022 Evaluation note Encounter Date Diagnosis Assessment Notes Aug, Type 2 diabetes mellitus with hyperglycemia (ICD-10 - E11.65) ASSESSMENT: 1. Uncontrolled, a Type 2 diabetes with A1c of % 2. Blood glucose levels reviewed and show significant variability, likely over basalization at least at night. We have decreased her at bedtime insulin to 18 units. We did discuss if a.m. fasting blood sugars are under 103 of 7 days/week she should decrease again by another unit. We have maintained her Lantus at 25 units in the a.m. If predinner blood sugar is below 100 3 days in a week she should decrease by 10% or 2 units. We will likely add prandial coverage next visit. I have requested that she check her blood sugars 4 times daily before meals and at bedtime to get better characterization of her blood glucose. I feel that she will benefit from CGM due to age, dexterity for fingersticks, ease of review. This modality is necessary for titration of her basal insulin. I have ordered a full sensor system for simplicity and similarity to her glucometer. She will call office when she is in receipt for first placement and in-service. We will have her return to clinic 2 weeks after placement of marianne for further titration of medication and consideration of alterations in treatment plan. I do have concerns for hypoglycemia unawareness secondary to high variability and provided blood glucose and no report of hypoglycemic symptoms. I do feel she is at high risk for fall secondary to her current neurological status and I do not need concomitant hypoglycemia to confound an increased risk. I feel these details are reasonable for consideration of approval. She will continue Farxiga 10 mg as she is tolerating and good secondary benefit for cardiovascular disease. 3. Patient is alert, oriented and receptive to making changes or counseling. Notes: Seen for an assessment of current glucose pattern, changes in treatment plan, counseling and coordination of care related to diabetes, risks, and benefits of treatment, medications, side effects. Given handouts to reinforce concepts reviewed during counseling, see scanned notes. TOPICS REVIEWED: 1. Time was spent reviewing: a. Basic concepts of diabetes, progressive beta cell , concepts of basal/bolus/corre ctive insulin requirements. Basal: The goal is fasting blood glucose of 90-130mg. IF fasting blood glucose starts to run under 100mg 3x's/ week, decrease dose by 10%. Bolus: The goal is to hold the blood glucose level steady meal to meal. If pt. is going to have increased physical activity after a meal, decrease the schedule meal dose prior to the activity by 30-50%. If pt. skips a meal do not take this dose. Correction: The goal is to correct an elevated glucose back into the 100-150mg range b. Nutrition: Concepts of healthy diet, encouraged to decrease saturated fat in diet and increase non-starchy vegetables and fruits in diet. BMI: Pt. needs to select one small change to decrease caloric intake or increase physical activity to help decrease weight. c. Correct treatment of hypoglycemia, carry a glucose source at all times on your person, in vehicles, and at bedside. Can use glucose tablets/4, four ounces of pop or juice equal to 15 G of carbohydrate. Blood glucose should be 100 mg/dl or higher when driving. d. ADA glucose goals for age and medical complexity reviewed e. Patient questions addressed 2. Activity/exercise : Encouraged to start any form of physical activity. Start low level and increase slowly to a minimal goal of 150 minutes/week. Limit activity to what is allowed by other issues such as cardiac, pulmonary or orthopedic restrictions. 3. Standards of care: Reminded to have an annual dilated eye exam, A1C every 3 months, urine testing for microalbumin once/year, check feet daily and report any cuts or sores that do not appear to be healing. 4. Meter: Plan to check blood glucose: Please check blood glucose levels 4 times/day. Back to back meals reveal effectiveness of bolus dosing. The blood glucose data is used to determine insulin doses and confirm symptoms for hypoglycemia and hyperglcyemia. 5. [facility]. Contact office if any issues or concerns with patterns of hypoglycemia, hyperglycemia, or diabetes medication issues. 6. Prescriptions: None needed at this time. Aug, Vitamin D deficiency (ICD-10 - E55.9) Learning About Vitamin D material was published to portal Aug, Dietary counseling and surveillance (ICD-10 - Z71.3) [facility] About Healthy Weight material was published to portal Aug, Hyperlipidemia (ICD-10 - E78.5) Learning About High Cholesterol material was published to portal. Treatment per cardiology secondary to PCI intervention, CVD Aug, HTN (hypertension) (ICD-10 - I10) High Blood Pressure: Care Instructions material was published to portal. Discussed above goal for diabetes, goal less than 130/80. 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 female presents to clinic s/p recent heart cath with PCI of Ramus and noted multivessel CAD. She has noticed an increase sensation of instability and wobbliness ; her son states that this is usually related to high blood pressures. She denies chest pain, she has no shortness of breath. Pertinently, she has been started on antibiotics for an episode of diverticulitis. She was seen in the hospital recently for similar symptoms. Work-up was unrevealing. CVL report FINAL IMPRESSION: 03/07/22 1. Right heart catheterization is relatively normal. 2. Coronary angiogram reveals severe multivessel coronary artery disease. The mid LAD has 100% chronic total occlusion ([employer]). The ramus coronary artery has a proximal 99% stenosis that was treated successfully with PCI with a Synergy 2.5 x 16 mm drug-eluting stent. The circumflex is patent. The RCA has proximal and mid diffuse 70% stenosis, and the right PDA has 80% stenosis. The RCA is a large vessel and dominant and provides collateral circulation to the LAD territory. PLAN: 1. Medical therapy for secondary prevention of CAD s/p PCI. 2. Aspirin 81 mg daily, long-term. 3. Plavix 75 mg daily for 1 year. 4. High-intensity statin therapy. 5. Beta-reginaldo as tolerated. 6. Continue metoprolol extended release, Entresto, and Farxiga for systolic congestive heart failure. 7. Recommend staged procedure in 2-4 weeks to deal with RCA and right PDA disease. 8. Outpatient followup with [facility]. 9. Since the right heart catheterization showed very low filling pressures, I discontinued hydrochlorothiazide. Farxiga and Entresto both have diuretic affects, so she does not need a third medicine with diuretic effects. Lexiscan 02/11/22 large area of absent perfusion anterior wall & anterior lateral/septal wall with slight reperfusion at margins noted. Hypokinesis of LV ED 39% Echo 02/11/22 LVSF reduced EF 40% wall motion abnormalites noted normal RV systolic function no significant valvular dysfunction reviewed recent labs 08/13/21 renal function normal- CR 1.03, K+ normal LFT normal A1C 8.1- elevated 02/18/21- renal function normal LFT normal Chol 188, HDL 36, Trig 220, LDL 108 Echocardiogram 07/2022 Global left ventricular systolic function is normal; EF is 60 to 65%. Mild diastolic dysfunction. No significant valvular abnormalities. Normal right-sided pressures. No pericardial effusion Cardiology ROS: GENERAL: Denies fever, chills, night sweats, weight loss. HEENT: Denies changes in vision, photophobia, changes in hearing, epistaxis, oral bleeding. CARDIOVASCULAR: Denies chest pain, exertional dyspnea, orthopnea/PND, lower extremity edema, palpitations, lightheadedness/dizziness. RESPIRATORY: Denies SOB, coughing, wheezing GI: Denies abdominal pain, nausea/vomiting, heartburn, melena/hematochezia. RENAL: Denies dysuria, hematuria, flank pain. MSK: Denies muscle weakness/pain, arthralgias/joint pain. NEUROLOGIC: Denies LOC, weakness, numbness, headaches. SKIN: Denies abnormal rashes or bleeding. PSYCH: Denies significant anxiety, depression, sleep disturbances. Past Medical History She has a past medical history of CHF (congestive heart failure) ([facility]), Coronary artery disease, Diabetes mellitus ([facility]), and Hyperlipidemia. Surgical History She has a past surgical history that includes Cardiac catheterization (03/07/2022); Cardiac catheterization (04/21/2022); Appendectomy; Hysterectomy; and Coronary stent placement. Social History She reports that she has never smoked. She has never used smokeless tobacco. She reports that she does not currently use alcohol. No history on file for drug use. Family History Family History Problem Relation Name Age of Onset Hypertension Mother Coronary artery disease Mother Coronary artery disease Father Hypertension Father Hypertension Sister Coronary artery disease Brother Allergies Empagliflozin, Iodine, Other, Shellfish containing products, and Sulfa (sulfonamide antibiotics) Medications (Not in a hospital admission) Last Recorded Vitals Patient Vitals for the past 24 hrs: BP Pulse SpO2 Height Weight 09/08/22 1058 174/77 57 99 % 1.702 m (5' 7 ) 64.9 kg (143 lb) Physical Examination: GENERAL: alert and oriented x3, well developed, in no acute distress. HEAD: atraumatic, normocephalic. EYES: ROSHAN, EOMI. NECK: trachea midline, no JVD present, no carotid bruits present. CARDIAC: S1, S2 present. RRR. No murmur, rubs, or gallops. RESPIRATORY: CTAB, no increased effort of breathing, no rales, rhonchi, or wheezing. ABDOMEN: soft, nontender, nondistended. EXTREMITIES: no lower extremity edema, peripheral pulses are 2+ bilaterally. No rash/skin discoloration present. NEURO: strength/sensation equal and symmetric in bilateral upper and lower ex (more content not included)...[facility]09-11-2022 Discharge summary Author Obaydah Daromar [facility] May 11, 2022 2:35pm Note Date/Time May 11, 2022 2:27pm [facility] [address] [place] [address] Discharge Summary Signed Patient: Tere Aragon MR#: [id number] : 1940 Acct:[id number] Age/Sex: 82 / F Adm Date: 2 Loc: Room: [address] [place] [address]: Herminia Lawler MD Copies to: MD Herminia Owens II, MD~ Providers Date of Discharge: 05/11/22 Discharging Provider: Herminia Lawler Primary Care Provider: Rodrick Butler Consults: 05/09/22 12:46 Consult to Cardiology Routine 05/10/22 08:46 Consult to Physical Therapy Routine Discharge Diagnosis (1) Elevated troponin: (2) CAD (coronary artery disease): (3) Epigastric abdominal pain: Final Diagnosis Final Discharge Diagnosis: As above Summary Hospital Course Hospital course: Patient is an 82 elderly female with PMH HTN, DM, CAD s/p recent PCIs, patient had symptoms of SOB and fatigue on exertion in February and went to [facility], She had Echo with EF 40%, positive stress test for which cardiac cath was done and required stent in mid LAD 03/07/22. Patient was discharge on cardiac regimen andstated that she was compliant with DAPT and other meds. Then she had similar symptoms afterwards and went back there, another cardiac cath done with successful stents placement in RCA and PDA by Dr. Breen. Patient continued DAPT and stated compliance. This time, patient presented at [facility] with epigastric pain, initial troponin was negative, EKG with no acute ischemic changes. 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 Last Echo on report with EF 40%. Repeat Troponin at [facility] uptrended to 600s, EKG with no acute ischemic changes again, given her recent cardiac history, raised the concern forstent thrombosis. Patient was started on IV heparin drip for presumptive NSTEMI and decision made to transfer patient over here to [facility] for possible cardiac cath. In our facility, patient appears to be asymptomatic. The epigastric pain that she had is gone. Cardiology was consulted. Per cardio, epigastric pain likely due to physiologic stress superimposed on otherwise stable coronary artery disease, low suspicion for acute or subacute stent thrombosis. Troponin levels did trend down , and remained asymptomatic during hospital course. GI etiology is suspected more than a cardiac etiology of the patient's symptoms for which she was started on Pepcid . Per cardiology explanation, she has a chronic occlusion of the LAD with collaterals, suspicion is that the physiologic stress caused ischemia in this territory and hence the mild troponin elevation that waswitnessed. Patient was continued on guideline directed therapy. Patient remained hemodynamically stable for discharge from cardiology standpoint, heparin drip was discontinued. Patient is stable for discharge with appropriatefollow-up and instructions as indicated in the discharge summary. Condition Condition at Discharge: Stable Time Spent with Patient Time spent providing/coordinating discharge services (# min): 45 Diagnostic Studies Completed and Pending Studies Pending studies at discharge: 05/12/22 05:00 Magnesium [CHEM] IN AM 05/13/22 05:00 Magnesium [CHEM] IN AM Labs on day of discharge: 05/11/22 11:47: POC Glucose 281 05/11/22 07:57: POC Glucose 109 05/11/22 04:49: PHA Creatinine Clear 42.73, Sodium 137, Potassium 3.8, Chloride 107, Carbon Dioxide 20.2 L, Anion Gap 13.6, BUN 21, Creatinine 0.97, Est GFR ( Amer) > 60, Est GFR (Non-Af Amer) 55, Glucose 187 H, Calcium 9.8, Magnesium 1.7 05/11/22 04:49: APTT 43.7 H 05/11/22 04:49: Troponin I High Sens 97 H* 05/10/22 21:35: POC Glucose 244, POC Glucose Comment Glu2: cleaned meter 05/10/22 16:47: POC Glucose 283 05/10/22 13:27: Troponin I High Sens 180 H* Exam Physical Exam Vital Signs: Temp Pulse Resp BP Pulse Ox O2 Del Method 97.3 F L 78 20 122/75 95 Room Air 05/11/22 11:34 05/11/22 11:34 05/11/22 11:34 05/11/22 11:34 05/11/22 11:34 05/11/22 11:34 Narrative: Const General: cooperative, comfortable, in no acute distress HEENT Head: normal to inspection Nose: external nose normal Mouth: oral mucosae normal and lip normal Eyes Conjunctivae: conjunctivae normal Neck Neck: normal visual inspection Chest inspection: normal inspection of the chest Resp Effort & Inspection: normal respiratory effort, not labored, no respiratory distress Auscultation: clear to auscultation b/l, no crackles, no wheezes Cardio Rate: normal rate Rhythm: regular rhythm Heart Sounds: S1 normal, S2 normal and no murmurs GI Inspection: non-distended Palpation: soft, not firm and nontender Neuro General: alert, awake and oriented x3. 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 Follow up as outpatient - Referral to endocrinology clinic for better diabetes control and labile blood glucose management - Continue to follow-up with your private cardiology -Return to ER in case of worsening in symptoms or developing new alarming symptoms Instructions: Acid Reflux and GERD in Adults (DC), Irritable Bowel Syndrome (DC), Coronary Artery Disease (DC) Prescriptions: New famotidine 20 mg Tablet 20 mg PO BID 30 Days Qty: 60 0RF Continued metoprolol succinate 50 mg tablet extended release 24 hr 50 mg PO DAILY potassium chloride 10 mEq tablet extended release 10 meq PO BID PRN (Reason: diuresis) Rx Instructions: take only when taking PRN furosemide clopidogrel 75 mg tablet 75 mg PO DAILY dorzolamide-timolol 22.3-6.8 mg/mL drops 1 drp Eye-Right 2XD Label Comments: Instill 1 drop into Right Eye twice a day furosemide 20 mg tablet See Rx Instructions .ROUTE .COMPLEX PRN (Reason: Edema) Rx Instructions: TAKE 1 TABLET BY MOUTH DAILY FOR 3 DAYS then stop; may repeat NEEDED for increased swelling insulin glargine [Lantus Solostar U-100 Insulin] 100 unit/mL (3 mL) insulin pen 32 unit SUBCUT QHS Entresto 24-26 mg tablet 1 tab PO BID Farxiga 10 mg tablet 10 mg PO DAILY atorvastatin 80 mg tablet 80 mg PO QHS aspirin 81 mg Tablet,Delayed Release (Dr/Ec) 81 mg PO DAILY ropinirole 0.25 mg tablet 0.25 mg PO DAILY Follow Up: Itz Arguello MD [Active Staff] - (Cardiology office will arrange outpatient follow-up. ) Rodrick Butler II, MD [Primary Care Provider] - (Call office on Thursday to schedule follow-up with your Primary Care Provider in 3-[address] AP at [facility] found to have incidentaloma left adrenal 3.6 mass.Need outpatient follow up. Also strict glucose follow up. Maybe endocrinology referral. ) Documented By: Herminia Lawler MD 05/11/22 14 25 Signed By: <Electronically signed by Herminia Lawler MD> 05/11/22 1435 [facility] Work Phone: [phone] 588-394809-11-2022 Progress note Author Itz Arguello [facility] May 11, 2022 12:15pm Note Date/Time May 11, 2022 12:12pm [facility] [address] [place] [address] Cardiology Progress Note Signed Patient: Tere Aragon MR#: [id number] : 1940 Acct:[id number] Age/Sex: 82 / F Adm Date: 2 Loc: Room: [address] [place] [address] Type: ADM IN Attending Dr: Herminia Lawler MD Copies to: ~ Date of Service: 05/11/2022 Subjective Principal diagnosis: Elevated troponins, epigastric pain Interval history: Patient continues to do well. She had diarrhea today and lower abdominal pain but no chest pain back pain or other symptoms suggestive of coronary disease. She continues to have a slowly declining taper in her troponin elevation. I suspect that there is no acute coronary syndrome nor stent thrombosis. Most likely the symptomatology was on the basis of physiologic stress superimposed [place] chronically occluded anterior descending artery with insufficient collateral delivery. This was also discussed with interventional cardiology and they concur. Becauseof this we recommended continued conservative pharmacologic regimen with dual antiplatelet therapy, Entresto, and beta-blockers. I had entertain changing metoprolol to carvedilol but her echo at this facility demonstrates normal ejection fraction and because of this we believe current therapy is appropriate Exam Physical Exam Vital Signs: Temp Pulse Resp BP Pulse Ox O2 Del Method 97.3 F L 78 20 122/75 95 Room Air 05/11/22 11:34 05/11/22 11:34 05/11/22 11:34 05/11/22 11:34 05/11/22 11:34 05/11/22 11:34 HEENT Head: normal to inspection Ears: hearing grossly normal bilaterally Nose: external nose normal and nares normal Face and sinus: normal facial exam Mouth: oral mucosae normal and tongue normal Eyes Conjunctivae: conjunctivae normal Sclera: sclerae normal Neck Neck: normal visual inspection Carotids: normal carotid upstroke Lymphatic: no lymphadenopathy noted Chest Chest palpation & inspection: normal inspection of the chest Resp Effort & Inspection: normal respiratory effort Auscultation: clear to auscultation bilaterally Cardio Rate: regular rate Rhythm: regular rhythm Heart Sounds: S1 normal and S2 normal GI Inspection: normal to inspection Palpation: soft Skin General: no rashes or lesions noted Neuro General: patient alert, patient awake and patient oriented x3 Cognition: normal cognition Motor: muscle tone normal throughout Sensory Exam: no sensory deficits noted Objective Labs CBC & Chem 7: 05/10/22 05:53 05/11/22 04:49 Labs: Laboratory Results - last 24 hr 05/10/22 05/10/22 05/10/22 13:27 16:47 21:35 APTT PHA Creatinine Clear Sodium Potassium Chloride Carbon Dioxide Anion Gap BUN Creatinine Est GFR ( Amer) Est GFR (Non-Af Amer) Glucose POC Glucose 283 244 POC Glucose Comment Glu2: cleaned meter Calcium Magnesium Total Creatine Kinase 48 CK-MB (CK-2) 3.3 CK-MB (CK-2) Rel Index 6.8 H Troponin I High Sens 180 H* 05/11/22 05/11/22 05/11/22 04:49 04:49 04:49 APTT 43.7 H PHA Creatinine Clear 42.73 Sodium 137 Potassium 3.8 Chloride 107 Carbon Dioxide 20.2 L Anion Gap 13.6 BUN 21 Creatinine 0.97 Est GFR ( Amer) > 60 Est GFR (Non-Af Amer) 55 Glucose 187 H POC Glucose POC Glucose Comment Calcium 9.8 Magnesium 1.7 Total Creatine Kinase CK-MB (CK-2) CK-MB (CK-2) Rel Index Troponin I High Sens 97 H* 05/11/22 05/11/22 07:57 11:47 APTT PHA Creatinine Clear Sodium Potassium Chloride Carbon Dioxide Anion Gap BUN Creatinine Est GFR ( Amer) Est GFR (Non-Af Amer) Glucose POC Glucose 109 281 POC Glucose Comment Calcium Magnesium Total Creatine Kinase CK-MB (CK-2) CK-MB (CK-2) Rel Index Troponin I High Sens A&P - Cardiology (1) Elevated troponin: Assessment/Problem Details: Dr. Gilbert I feel that the elevated troponin is not due to acute coronary syndrome nor stent thrombosis. We are suspicious that the problem is most likely collateral insufficiency and the occluded anterior descending artery territory. Because of this current medical therapy is recommended without change Code(s): R77.8 - Other specified abnormalities of plasma proteins Status: Acute (2) CAD (coronary artery disease): Assessment/Problem Details: Stable, adequately revascularized. She underwent staged intervention of the ramus intermedius as well as right coronary and posterior descending [place]. There was no other residual anatomy need of intervention. 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 Code(s): I25.10 - Atherosclerotic heart disease of [place] coronary artery without angina pectoris Status: Acute (3) Epigastric abdominal pain: Assessment/Problem Details: Noncardiac. I recommend she be discharged on Pepcid. Code(s): R10.13 - Epigastric pain Status: Acute Plan Suitable for discharge. Continue home regimen. Add Pepcid. I will make arrangements for her to follow-up in the office with me in the next 1 to 2 months. Documented By: Itz Arguello MD [id number] Signed By: <Electronically signed by MD Itz Arguello> 05/11/22 1215 [facility] Work Phone: [phone] 978-122209-10-2022 Progress note Author Herminia Lawler [facility] May 10, 2022 11:22am Note Date/Time May 10, 2022 11:05am [facility] [address] [place] [address] Hospitalist Progress Note Signed Patient: Tere Aragon MR#: [id number] : 1940 Acct:[id number] Age/Sex: 82 / F Adm Date: 2 Loc: 4 Room: [address] [place] [address] Type: ADM IN Attending Dr: Herminia Lawler MD Copies to: ~ Date of Service: 05/10/2022 Subjective Subjective Narrative: Patient was seen and examined at bedside. No major events overnight. Today shedenies any chest pain or epigastric pain. Denies any nausea, vomiting, diarrhea, constipation. Troponin levels trended down. Cardiology followed up this morning. Pepcid was started for presumptive peptic ulcer disease. Otherwise patient is hemodynamically stable with no active complaints. Exam Physical Exam Vital Signs: Temp Pulse Resp BP Pulse Ox O2 Del Method 98.8 F 66 16 129/72 97 Room Air 05/10/22 08:00 05/10/22 08:00 05/10/22 08:00 05/10/22 08:00 05/10/22 08:00 05/10/22 08:00 Narrative: Const General: cooperative, comfortable, in no acute distress HEENT Head: normal to inspection Nose: external nose normal Mouth: oral mucosae normal and lip normal Eyes Conjunctivae: conjunctivae normal Neck Neck: normal visual inspection Chest inspection: normal inspection of the chest Resp Effort & Inspection: normal respiratory effort, not labored, no respiratory distress Auscultation: clear to auscultation b/l, no crackles, no wheezes Cardio Rate: normal rate Rhythm: regular rhythm Heart Sounds: S1 normal, S2 normal and no murmurs GI Inspection: non-distended Palpation: soft, not firm and nontender Neuro General: alert, awake and oriented x3. No obvious focal deficit Extrem General: no cyanosis, no pedal edema Psych Appearance: grossly normal Affect: normal affect Attitude: cooperative Objective Lab Results CBC & Chem 7: 05/10/22 05:53 05/10/22 05:53 Meds Allergies and Active Meds Allergies iodine Allergy (Verified 05/09/22 11:04) Rash Sulfa (Sulfonamide Antibiotics) Allergy (Verified 05/09/22 11:04) Blister shellfish derived Adverse Reaction (Verified 05/09/22 11:04) Vomiting Active Meds: Active Medications Generic Name Dose Route Start Last Admin Trade Name Freq PRN Reason Stop Dose Admin Acetaminophen 650 mg 05/09/22 12:46 05/09/22 14:37 Acetaminophen 325 Mg Tablet PO 05/09/23 12:45 650 mg Q6HR PRN Administration Pain Scale 1 - 3 or fever Aspirin 81 mg 05/10/22 09:00 05/10/22 09:04 Aspirin 81 Mg Tablet. PO 05/10/23 08:59 81 mg DAILY ANDREW Administration Atorvastatin Calcium 80 mg 05/09/22 22:00 05/09/22 21:17 Atorvastatin 80 Mg Tablet PO 05/09/23 21:59 80 mg QHS ANDREW Administration Canagliflozin 300 mg 05/10/22 09:00 05/10/22 09:04 Canagliflozin 300 Mg Tablet PO 05/10/23 08:59 300 mg DAILY ANDREW Administration Clopidogrel Bisulfate 75 mg 05/10/22 09:00 05/10/22 09:04 Clopidogrel Bisulfate 75 Mg Tablet PO 05/10/23 08:59 75 mg DAILY ANDREW Administration Dextrose 0 gm 05/09/22 15:47 Dextrose 50% In Water 25 Gm/50 Ml Syringe IV-PUSH 05/09/23 15:46 PRN PRN Hypoglycemia Dorzolamide HCl 1 drops 05/09/22 21:00 05/10/22 09:06 Dorzolamide 2% Op Soln 200 Drops/10 Ml Bottle EYE-RIGHT 05/09/23 20:59 1 drops BID ANDREW Administration Famotidine 20 mg 05/10/22 09:00 05/10/22 09:05 Famotidine 20 Mg Tablet PO 05/10/23 08:59 Not Given BID ANDREW Glucose 0 gm 05/09/22 15:47 Dextrose 40% Gel 15 Gm Tube PO 05/09/23 15:46 PRN PRN Hypoglycemia Heparin Sodium (Porcine) 2,800 unit 05/09/22 16:30 Heparin *Protocol Bolus* 5,000 Unit/Ml Vial 40 unit/kg (2800 unit) 05/09/23 16:29 IV-PUSH PROTOCOL PRN PTT 40-53 Heparin Sodium (Porcine) 4,000 unit 05/09/22 15:33 Heparin *Protocol Bolus* 5,000 Unit/Ml Vial IV-PUSH 05/09/23 15:32 PROTOCOL PRN PTT < 40 Heparin Sodium/Sodium Chloride 25,000 unit in 250 mls @ 8 mls/hr 05/09/22 16:30 05/09/22 16:57 Heparin IV 05/09/23 16:29 800 unit/hr .Q24H ANDREW 8 mls/hr Administration Protocol 800 UNIT/HR Insulin Aspart 0 units 05/09/22 17:00 05/10/22 08:00 Insulin Aspart 300 Units/3 Ml Insuln.Pen SUBCUT 05/09/23 16:59 Not Given TID.WM.HS ANDREW Protocol Insulin Detemir 32 units 05/09/22 22:00 05/09/22 21:20 Insulin Detemir 300 Units/3 Ml Insuln.Pen SUBCUT 05/09/23 21:59 32 units QHS ANDREW Administration Melatonin 3 mg 05/09/22 12:46 Melatonin 3 Mg Tablet PO 05/09/23 12:45 QHS PRN Insomnia Metoprolol Succinate 50 mg 05/10/22 09:00 05/10/22 09:05 Metoprolol Succinate 50 Mg Tab.Er.24h PO 05/10/23 08:59 50 mg DAILY ANDREW Administration Ondansetron HCl 4 mg 05/09/22 12:46 Ondansetron 4 Mg/2 Ml Vial IV-PUSH 05/09/23 12:45 Q8H PRN Nausea And Vomiting Ropinirole HCl 0.25 mg 05/10/22 09:00 05/10/22 09:04 Ropinirole 0.25 Mg Tablet PO 05/10/23 08:59 0.25 mg DAILY ANDREW Administration Timolol Maleate 1 drops 05/09/22 21:00 05/10/22 09:06 Timolol Mal 0.5% Op Soln 100 Drops/5 Ml Bottle EYE-RIGHT 05/09/23 20:59 1 drops BID ANDREW Administration A&P - Hospitalist Assessment/Plan (1) NSTEMI (non-ST elevated myocardial infarction): (2) CAD (coronary artery disease): (3) HTN (hypertension): (4) HLD (hyperlipidemia): (5) DM (diabetes mellitus): Plan Acute NSTEMI Recent cardiac cath s/p mid LAD stent 03/07/22, then RCA and PDA on 04/21/22 at [facility] PE was ruled out by CTA Aortic dissection was ruled out by CTA -Patient remained stable overnight. This morning denies any chest pain or epigastric pain -Troponin levels have down trended -Heparin drip management per pharmacy protocol for ACS -Cardiology input noted and appreciated. Recommended continuing guideline directed therapy -Continue DAPT, statin, beta-reginaldo. Patient also states that she takes Entresto at home. Will restart since kidney function has improved. -Echocardiogram pending. -Continue to monitor on telemetry until tomorrow as per cardio. -Activity as tolerated Uncontrolled Diabetes with hyperglycemia -HbA1C 10.8 -Blood glucose at [facility] was 499. Negative for ketones. DKA was ruled out -Continue long-acting 32 units nightly. For short acting will continue corrective sliding scale for now #2. We will adjust as needed -We will need aggressive diabetes management Resume home medications once verified CODE STATUS: Full code DVT prophylaxis with heparin drip Discussed with patient at bedside. All questions answered Documented By: Herminia Lawler MD 05/10/22 10 59 Signed By: <Electronically signed by Herminia Lawler MD> 05/10/22 [facility] Work Phone: [phone] 497-264709-10-2022 Progress note Author Itz Arguello [facility] May 10, 2022 8:46am Note Date/Time May 10, 2022 8:46am [facility] [address] [place] [address] Cardiology Progress Note Signed Patient: Tere Aragon MR#: [id number] : 1940 Acct:[id number] Age/Sex: 82 / F Adm Date: 2 Loc: Room: [address] [place] [address] Type: ADM IN Attending Dr: Herminia Lawler MD Copies to: ~ Date of Service: 05/10/2022 Subjective Principal diagnosis: Elevated troponins, epigastric pain Interval history: Patient had an uneventful night. She states this is the best she slept in quitea while. She has had no recurrent epigastric pain (which is the reason she wentto the emergency room). She still has some mid back pain. Troponins are trending down. They are not impressive and I am doubtful of acutecoronary syndrome. Acute or subacute stent thrombosis is highly unlikely as well. Because of this we suspect physiologic stress superimposed on otherwise stable coronary disease. I suspect she may have developed a gastrointestinal problem. May be gastritis or peptic ulcer disease as a consequence of the advance care and changes in medical therapy in February and March. Because of this famotidine will be started Exam Physical Exam Vital Signs: Temp Pulse Resp BP Pulse Ox O2 Del Method 98.8 F 66 16 129/72 97 Room Air 05/10/22 08:00 05/10/22 08:00 05/10/22 08:00 05/10/22 08:00 05/10/22 08:00 05/10/22 08:00 HEENT Head: normal to inspection Ears: hearing grossly normal bilaterally Nose: external nose normal and nares normal Face and sinus: normal facial exam Mouth: oral mucosae normal and tongue normal Eyes Conjunctivae: conjunctivae normal Sclera: sclerae normal Neck Neck: normal visual inspection Carotids: normal carotid upstroke Lymphatic: no lymphadenopathy noted Chest Chest palpation & inspection: normal inspection of the chest Resp Effort & Inspection: normal respiratory effort Auscultation: clear to auscultation bilaterally Cardio Rate: regular rate Rhythm: regular rhythm Heart Sounds: S1 normal and S2 normal GI Inspection: normal to inspection Palpation: soft Skin General: no rashes or lesions noted Neuro General: patient alert, patient awake and patient oriented x3 Cognition: normal cognition Motor: muscle tone normal throughout Sensory Exam: no sensory deficits noted Objective Labs CBC & Chem 7: 05/10/22 05:53 05/10/22 05:53 Labs: Laboratory Results - last 24 hr 05/09/22 05/09/22 05/09/22 13:19 13:19 13:19 Corrected WBC 6.1 Uncorrected WBC Count 6.1 RBC 5.27 H Hgb 13.7 Hct 42.5 MCV 80.6 MCH 25.9 MCHC 32.1 RDW 15.1 Plt Count 222 MPV 8.6 Neut % (Auto) 55.8 Lymph % (Auto) 35.8 [place] % (Auto) 6.3 Eos % (Auto) 1.5 Baso % (Auto) 0.6 Neut # (Auto) 3.4 Lymph # (Auto) 2.2 [place] # (Auto) 0.4 Eos # (Auto) 0.1 Baso # (Auto) 0.0 Nucleated RBC % (auto) 0.1 PT 11.6 INR 1.0 APTT PHA Creatinine Clear 47.10 Sodium 135 L Potassium 3.9 Chloride 104 Carbon Dioxide 22.2 Anion Gap 12.7 BUN 16 Creatinine 0.88 Est GFR ( Amer) > 60 Est GFR (Non-Af Amer) > 60 Glucose 184 H POC Glucose POC Glucose Comment Estimat Average Glucose Hemoglobin A1c Calcium 10.0 Phosphorus 3.5 Magnesium 1.8 Total Bilirubin 0.7 AST 22 ALT 22 Alkaline Phosphatase 90 Total Creatine Kinase CK-MB (CK-2) CK-MB (CK-2) Rel Index Troponin I High Sens Total Protein 6.8 Albumin 3.5 Globulin 3.3 Albumin/Globulin Ratio 1.1 Triglycerides 156 H Cholesterol 112 L LDL Cholesterol, Calc 51 VLDL Cholesterol 31 HDL Cholesterol 30 L Cholesterol/HDL Ratio 3.7 05/09/22 05/09/22 05/09/22 13:19 13:19 16:03 Corrected WBC Uncorrected WBC Count RBC Hgb Hct MCV MCH MCHC RDW Plt Count MPV Neut % (Auto) Lymph % (Auto) [place] % (Auto) Eos % (Auto) Baso % (Auto) Neut # (Auto) Lymph # (Auto) [place] # (Auto) Eos # (Auto) Baso # (Auto) Nucleated RBC % (auto) PT INR APTT PHA Creatinine Clear Sodium Potassium Chloride Carbon Dioxide Anion Gap BUN Creatinine Est GFR ( Amer) Est GFR (Non-Af Amer) Glucose POC Glucose POC Glucose Comment Estimat Average Glucose 263 Hemoglobin A1c 10.8 H Calcium Phosphorus Magnesium Total Bilirubin AST ALT Alkaline Phosphatase Total Creatine Kinase 63 56 CK-MB (CK-2) 6.2 4.6 CK-MB (CK-2) Rel Index 9.8 H 8.2 H Troponin I High Sens 638 H* 558 H* Total Protein Albumin Globulin Albumin/Globulin Ratio Triglycerides Cholesterol LDL Cholesterol, Calc VLDL Cholesterol HDL Cholesterol Cholesterol/HDL Ratio 05/09/22 05/09/22 05/09/22 17:03 18:51 20:49 Corrected WBC Uncorrected WBC Count RBC Hgb Hct MCV MCH MCHC RDW Plt Count MPV Neut % (Auto) Lymph % (Auto) [place] % (Auto) Eos % (Auto) Baso % (Auto) Neut # (Auto) Lymph # (Auto) [place] # (Auto) Eos # (Auto) Baso # (Auto) Nucleated RBC % (auto) PT INR APTT PHA Creatinine Clear Sodium Potassium Chloride Carbon Dioxide Anion Gap BUN Creatinine Est GFR ( Amer) Est GFR (Non-Af Amer) Glucose POC Glucose 141 301 POC Glucose Comment Glu2: cleaned meter Estimat Average Glucose Hemoglobin A1c Calcium Phosphorus Magnesium Total Bilirubin AST ALT Alkaline Phosphatase Total Creatine Kinase 75 CK-MB (CK-2) 4.3 CK-MB (CK-2) Rel Index 5.7 H Troponin I High Sens 388 H* Total Protein Albumin Globulin Albumin/Globulin Ratio Triglycerides Cholesterol LDL Cholesterol, Calc VLDL Cholesterol HDL Cholesterol Cholesterol/HDL Ratio 05/09/22 05/09/22 05/10/22 21:49 23:28 01:11 Corrected WBC Uncorrected WBC Count RBC Hgb Hct MCV MCH MCHC RDW Plt Count MPV Neut % (Auto) Lymph % (Auto) [place] % (Auto) Eos % (Auto) Baso % (Auto) Neut # (Auto) Lymph # (Auto) [place] # (Auto) Eos # (Auto) Baso # (Auto) Nucleated RBC % (auto) PT INR APTT 48.7 H 56.1 H PHA Creatinine Clear Sodium Potassium Chloride Carbon Dioxide Anion Gap BUN Creatinine Est GFR ( Amer) Est GFR (Non-Af Amer) Glucose POC Glucose POC Glucose Comment Estimat Average Glucose Hemoglobin A1c Calcium Phosphorus Magnesium Total Bilirubin AST ALT Alkaline Phosphatase Total Creatine Kinase 53 CK-MB (CK-2) 3.6 CK-MB (CK-2) Rel Index 6.7 H Troponin I High Sens 280 H* Total Protein Albumin Globulin Albumin/Globulin Ratio Triglycerides Cholesterol LDL Cholesterol, Calc VLDL Cholesterol HDL Cholesterol Cholesterol/HDL Ratio 05/10/22 05/10/22 05/10/22 05:53 05:53 05:53 Corrected WBC 7.0 Uncorrected WBC Count 7.0 RBC 4.70 Hgb 12.4 Hct 37.8 MCV 80.5 MCH 26.4 MCHC 32.8 RDW 15.2 Plt Count 236 MPV 8.3 Neut % (Auto) 45.7 Lymph % (Auto) 42.4 [place] % (Auto) 6.4 Eos % (Auto) 2.7 Baso % (Auto) 2.8 Neut # (Auto) 3.2 Lymph # (Auto) 3.0 [place] # (Auto) 0.4 Eos # (Auto) 0.2 Baso # (Auto) 0.2 Nucleated RBC % (auto) 0.3 PT INR APTT 57.7 H PHA Creatinine Clear 51.81 Sodium 138 Potassium 3.7 Chloride 109 Carbon Dioxide 21.9 L Anion Gap 10.8 BUN 18 Creatinine 0.78 Est GFR ( Amer) > 60 Est GFR (Non-Af Amer) > 60 Glucose 102 H POC Glucose POC Glucose Comment Estimat Average Glucose Hemoglobin A1c Calcium 9.6 Phosphorus Magnesium 1.7 Total Bilirubin 0.4 AST 18 ALT 18 Alkaline Phosphatase 75 Total Creatine Kinase CK-MB (CK-2) CK-MB (CK-2) Rel Index Troponin I High Sens Total Protein 5.8 L Albumin 2.9 L Globulin 2.9 Albumin/Globulin Ratio 1.0 Triglycerides Cholesterol LDL Cholesterol, Calc VLDL Cholesterol HDL Cholesterol Cholesterol/HDL Ratio 05/10/22 07:34 Corrected WBC Uncorrected WBC Count RBC Hgb Hct MCV MCH MCHC RDW Plt Count MPV Neut % (Auto) Lymph % (Auto) [place] % (Auto) Eos % (Auto) Baso % (Auto) Neut # (Auto) Lymph # (Auto) [place] # (Auto) Eos # (Auto) Baso # (Auto) Nucleated RBC % (auto) PT INR APTT PHA Creatinine Clear Sodium Potassium Chloride Carbon Dioxide Anion Gap BUN Creatinine Est GFR ( Amer) Est GFR (Non-Af Amer) Glucose POC Glucose 84 POC Glucose Comment Estimat Average Glucose Hemoglobin A1c Calcium Phosphorus Magnesium Total Bilirubin AST ALT Alkaline Phosphatase Total Creatine Kinase CK-MB (CK-2) CK-MB (CK-2) Rel Index Troponin I High Sens Total Protein Albumin Globulin Albumin/Globulin Ratio Triglycerides Cholesterol LDL Cholesterol, Calc VLDL Cholesterol HDL Cholesterol Cholesterol/HDL Ratio A&P - Cardiology (1) Elevated troponin: Assessment/Problem Details: Elevated troponins are noted. I am doubtful to represent stent thrombosis or new acute coronary event. There may be simply on the basis of physiologic stress superimposed on otherwise stable coronary disease. Code(s): R77.8 - Other specified abnormalities of plasma proteins Status: Acute (2) CAD (coronary artery disease): Assessment/Problem Details: Angiographic studies from [place] reviewed. She had a 99% ramus intermedius branch that was intervened upon in February. She had complex disease in the right coronary and posterior descending branch that were intervened upon April 21.. 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 My suspicion is that the physiologic stress caused ischemia in this territory and hence the mild troponin elevation that was witnessed. Ejection fraction was noted to be in the range of 40%. Because of this she requires guideline directed therapy. He is on metoprolol succinate which is inferior to carvedilol. I will make that change. Otherwise I believe she should continue on aspirin, Plavix, SGLT2 inhibitor therapy, and beta-blockade. CALI inhibitor's were not implemented, I believe, because of concerns regarding renal insufficiency. This will be addressed later. Code(s): I25.10 - Atherosclerotic heart disease of [place] coronary artery without angina pectoris Status: Acute (3) Epigastric abdominal pain: Assessment/Problem Details: I believe her epigastric pain was probably noncardiac. She states it was distinctly different from the symptomatology that she had preceding her intervention. Because of this I believe her primary problem is gastrointestinaland I have implemented famotidine therapy Code(s): R10.13 - Epigastric pain Status: Acute Plan I feel we should observe the patient until tomorrow. Medical therapy adjusted. Physical therapy and increased activity recommended Documented By: Itz Arguello MD [id number] Signed By: <Electronically signed by MD Itz Arguello> 05/10/22 0846 [facility] Work Phone: [phone]) 759-757109-09-2022 Consult note Author Itz Arguello [facility] May 09, 2022 5:03pm Note Date/Time May 09, 2022 5:03pm [facility] [address] [place] [address] Cardiology Consult Note Signed Patient: Tere Aragon MR#: [id number] : 1940 Acct:[id number] Age/Sex: 82 / F Adm Date: 2 Loc: Room: [address] [place] [address] Type: ADM IN Attending Dr: Herminia Lawler MD Copies to: MD Herminia Owens II, MD William Patrick McGuinn, MD~ Cardiology HPI History of Present Illness Consult Date: 05/09/22 Reason for Consult: Epigastric pain HPI: Ms. Aragon is a 82 year old female seen for the above. She is an individual with a recent diagnosis of coronary disease. In February she told her primary care physician she was experiencing epigastric discomfort and shortness of breath provoked with exertion and relieved with rest. It was classic anginal symptomatology. Because of this she had a stress test that was positive and then a cardiac catheterization. She was found to have subtotal occlusion of the ramus intermedius, subtotal occlusion of the right, and complete occlusion of the LAD with adequate collaterals. She underwent staged intervention. I believe she had the right coronary fixed first then the ramus intermedius. 1 was done in February the other in March 2 weeks ago. She was told she had an ejection fraction of 40% and patient was started on guideline directed therapy. She states last night she was feeling her usual self. She went to bed and fell asleep. She woke up in the middle the night with epigastric discomfort that shestates is different from anything she has ever had before. She states is different than the symptoms she had prior to her diagnosis and coronary intervention. She had no nausea vomiting diaphoresis dyspnea. Presenting EKG demonstrates no acute changes. Troponin here is 600. Outside troponins are not reviewed I suspect that they are elevated. We need a series of enzymes here for comparisonand will not use the enzymes from [facility] to make decisions. Presently it appears the patient is asymptomatic. The epigastric pain she had is gone. If in fact this is anginal it has gone away. She is compliant with medical therapy and I doubt subacute stent thrombosis but it is possible that her LAD occlusion with collaterals may be insufficient and/or there may have been some hemodynamic stress that caused transient ischemia in the distribution of the LAD and the aforementioned elevation in enzymes. Because of this I believe she does require observation It appears she is on guideline directed therapy but its not been implemented by the admitting service. Presently she is on aspirin Plavix and atorvastatin. Wehave added her metoprolol succinate and I will make a decision tomorrow Review of Systems Review of Systems All other systems reviewed & are negative unless noted below or in HPI Constitutional Constitutional: Reports system reviewed and no additional complaints, except as documented Eyes Eyes: Reports system reviewed and no additional complaints, except as documented ENT Ears, Nose, Mouth, and Throat: Reports system reviewed and no additional complaints, except as documented Cardiovascular Cardiovascular: Reports as per HPI Respiratory Respiratory: Reports system reviewed and no additional complaints, except as documented Gastrointestinal Gastrointestinal: Reports system reviewed and no additional complaints, except as documented Genitourinary Genitourinary: Reports system reviewed and no additional complaints, except as documented Musculoskeletal Musculoskeletal: Reports system reviewed and no additional complaints, except asdocumented Integumentary/Breasts Skin/Breast: Reports system reviewed and no additional complaints, except as documented Neurologic Neurologic: Reports system reviewed and no additional complaints, except as documented Psychiatric Psychiatric: Reports system reviewed and no additional complaints, except as documented Endocrine Endocrine: Reports system reviewed and no additional complaints, except as documented Hematologic/Lymphatic Hematologic/Lymphatic: Reports system reviewed and no additional complaints, except as documented Allergic/Immunologic Allergic/Immunologic: Reports system reviewed and no additional complaints, except as documented PMFSH Vaccinated for COVID-19?: Yes Medical History (Updated 05/09/22 @ 17:01 by Itz Arguello MD) Cervical cancer Coronary artery disease Diabetes mellitus NSTEMI (non-ST elevated myocardial infarction) Surgical History History of appendectomy History of cardiac catheterization History of heart artery stent x3 placed in [facility] February 2022 Social History Smoking Status: Never smoker Meds Medications and Allergies Allergies iodine Allergy (Verified 05/09/22 11:04) Rash Sulfa (Sulfonamide Antibiotics) Allergy (Verified 05/09/22 11:04) Blister shellfish derived Adverse Reaction (Verified 05/09/22 11:04) Vomiting Home Medications aspirin 81 mg tablet,delayed release 81 mg PO DAILY 05/09/22 [History Confirmed 05/09/22] atorvastatin 80 mg tablet 80 mg PO QHS 05/09/22 [History Confirmed 05/09/22] clopidogrel 75 mg tablet 75 mg PO DAILY 05/09/22 [History Confirmed 05/09/22] dapagliflozin 10 mg tablet (Farxiga) 10 mg PO DAILY 05/09/22 [History Confirmed 05/09/22] dorzolamide 22.3 mg-timolol 6.8 mg/mL eye drops 1 drp Eye-Right 2XD 05/09/22 [History Confirmed 05/09/22] furosemide 20 mg tablet See Rx Instructions .Route .COMPLEX PRN Edema 05/09/22 [History Confirmed 05/09/22] insulin glargine 100 unit/mL (3 mL) subcutaneous pen (Lantus Solostar U-100 Insulin) 32 unit subcut QHS 05/09/22 [History Confirmed 05/09/22] metoprolol succinate 50 mg tablet,extended release 24 hr 50 mg PO DAILY 05/09/22[History Confirmed 05/09/22] potassium chloride 10 mEq tablet,extended release 10 meq PO BID 05/09/22 [History Confirmed 05/09/22] ropinirole 0.25 mg tablet 0.25 mg PO DAILY 05/09/22 [History Confirmed 05/09/22] sacubitril 24 mg-valsartan 26 mg tablet (Entresto) 1 tab PO BID 05/09/22 [History Confirmed 05/09/22] Exam Physical Exam Vital Signs: Temp Pulse Resp BP Pulse Ox O2 Del Method 98.7 F 68 19 146/78 H 98 Room Air 05/09/22 15:38 05/09/22 15:38 05/09/22 15:38 05/09/22 15:38 05/09/22 15:38 05/09/22 15:38 HEENT Head: normal to inspection Ears: hearing grossly normal bilaterally Nose: external nose normal and nares normal Face and sinus: normal facial exam Mouth: oral mucosae normal and tongue normal Eyes Conjunctivae: conjunctivae normal Sclera: sclerae normal Neck Neck: normal visual inspection Carotids: normal carotid upstroke Lymphatic: no lymphadenopathy noted Chest Chest palpation & inspection: normal inspection of the chest Resp Effort & Inspection: normal respiratory effort Auscultation: clear to auscultation bilaterally Cardio Rate: regular rate Rhythm: regular rhythm Heart Sounds: S1 normal and S2 normal GI Inspection: normal to inspection Palpation: soft Skin General: no rashes or lesions noted Neuro General: patient alert, patient awake and patient oriented x3 Cognition: normal cognition Motor: muscle tone normal throughout Sensory Exam: no sensory deficits noted Results Labs CBC & CMP: 05/09/22 13:19 05/09/22 13:19 Lab results: Cardiac Enzymes 05/09/22 05/09/22 05/09/22 Range/Units 13:19 13:19 16:03 AST 22 (10-42) U/L Total Creatine Kinase 63 56 (22-269) U/L CK-MB (CK-2) 6.2 4.6 (0.6-6.3) ng/mL CK-MB (CK-2) Rel Index 9.8 H 8.2 H (0.00-2.50) % Lipids 05/09/22 Range/Units 13:19 Triglycerides 156 H (35-149) mg/dL Cholesterol 112 L (140-200) mg/dL HDL Cholesterol 30 L (35-85) mg/dL Cholesterol/HDL Ratio 3.7 (<5.0) CBC 05/09/22 Range/Units 13:19 RBC 5.27 H (3.60-5.00) x10E6/uL Hgb 13.7 (11.8-15.4) g/dL Hct 42.5 (34.0-46.4) % Plt Count 222 (150-450) x10E3/uL Neut # (Auto) 3.4 (1.8-7.7) x10E3/uL Lymph # (Auto) 2.2 (1.00-4.8) x10E3/uL [place] # (Auto) 0.4 (0.0-0.8) x10E3/uL Eos # (Auto) 0.1 (0.0-0.45) x10E3/uL Baso # (Auto) 0.0 (0.0-0.2) x10E3/uL Comprehensive Metabolic Panel 05/09/22 Range/Units 13:19 Sodium 135 L (136-146) mmol/L Potassium 3.9 (3.5-5.1) mmol/L Chloride 104 (95-114) mmol/L Carbon Dioxide 22.2 (22.0-30.0) mmol/L BUN 16 (9-23) mg/dL Creatinine 0.88 (0.44-1.03) mg/dL Glucose 184 H (70-100) mg/dL Calcium 10.0 (8.2-10.2) mg/dL AST 22 (10-42) U/L ALT 22 (10-60) U/L Alkaline Phosphatase 90 (32-92) U/L Total Protein 6.8 (6.1-7.9) gm/dL Albumin 3.5 (3.2-5.5) gm/dL Intake and Output 05/09/22 05/09/22 05/09/22 07:59 15:59 23:59 Intake Total 25 / 25 Balance 25 / 25 Intake: Oral 25 / 25 Other: # Unmeasured Voids 1 Weight 68.9 kg Patient Weight 05/09/22 23:59 Weight 68.9 kg Lab 05/09/22 13:19 PT 11.6 INR 1.0 A&P - Cardiology (1) CAD (coronary artery disease): Assessment/Problem Details: Her coronary anatomy is well delineated. She is undergone several angiographic evaluations and interventions. I am doubtful of subacute or acute stent thrombosis. She is not sick enough to have stent thrombosis and she is compliant with her guideline directed therapy. I believe her elevated troponinsare probably on the basis of a slowly declining troponin elevation (associated with her primary admission) we will possibly due to ischemia in the distributionof the chronically occluded LAD. Nonetheless her findings are not indicative ofacute event that requires emergent angiographic evaluation. She also states there might be some problems with kidney function and consequently I feel an emergent angiographic evaluation puts her at risk for renal insufficiency and/oracute tubular necrosis and because of this a conservative approach will be undertaken Code(s): I25.10 - Atherosclerotic heart disease of [place] coronary artery without angina pectoris (2) DM (diabetes mellitus): Assessment/Problem Details: This is of significant concern to the patient. She states that control of her diabetes has been extremely difficult. She is very focused on that and I will defer to the primary service Code(s): E11.9 - Type 2 diabetes mellitus without complications (3) Elevated troponin: Assessment/Problem Details: Troponin elevation I believe to be not associated with acute coronary syndrome or acute infarct. Serial enzymes will be done. In the meantime her aspirin Plavix will be continued and heparin also started. Code(s): R77.8 - Other specified abnormalities of plasma proteins Plan Aspirin Plavix heparin statin beta-reginaldo. Serial troponins. Will follow advise. Documented By: Itz Arguello MD [id number] Signed By: <Electronically signed by MD Itz Arguello> 05/09/22 3617 [facility] Work Phone: [phone]) 606-963009-09-2022 History and physical note Author Herminia Lawler [facility] May 09, 2022 3:50pm Note Date/Time May 09, 2022 1:19pm [facility] [address] [place] [address] Hospitalist H&P Signed Patient: Tere Aragon MR#: [id number] : 1940 Acct:[id number] Age/Sex: 82 / F Adm Date: 2 Loc: 4 Room: [address] [place] [address] Type: ADM IN Attending Dr: Herminia Lawler MD Copies to: MD Herminia Owens II, MD~ HPI DATE OF EXAMINATION: 05/09/22 CHIEF COMPLAINT: Epigastric pain HISTORY OF PRESENT ILLNESS: Patient is an 82 elderly female with PMH HTN, DM, CAD s/p recent PCIs, patient had symptoms of SOB and fatigue on exertion in February and went to [facility], She had Echo with EF 40%, positive stress test for which cardiac cath was done and required stent in mid LAD 03/07/22. Patient was discharge on cardiac regimen andstated that she was compliant with DAPT and other meds. Then she had similar symptoms afterwards and went back there, another cardiac cath done with successful stents placement in RCA and PDA by Dr. Breen. Patient continued DAPT and stated compliance. This time, patient presented at [facility] this morning, initial troponin was negative, EKG with no acute ischemic changes. 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 Last Echo on report with EF 40%.This morning, repeat Troponin at [facility] uptrended to 600s, EKG with no acute ischemic changes again, given her recent cardiac history, raised the concern forstent thrombosis/restenosis. Patient was started on IV heparin drip for presumptive NSTEMI and decision made to transfer patient over here to [facility] for possible cardiac cath. During my encounter, patient is alert and awake and oriented x3. Lying comfortably in bed. Not in respiratory distress. Patient denies any chest pain, shortness of breath, dizziness, nausea, vomiting. She does report bloating sensation in the epigastric area which she is not sure is if its because she has not eaten or its cardiac related. Review of Systems Review of Systems All other systems reviewed & are negative unless noted below or in HPI Review of systems: Constitutional Constitutional: Reports system reviewed and no additional complaints, except as documented Eyes Eyes: Reports system reviewed and no additional complaints, except as documented ENT Ears, Nose, Mouth, and Throat: Reports system reviewed and no additional complaints, except as documented Cardiovascular Cardiovascular: Reports system reviewed and no additional complaints, except as documented Respiratory Respiratory: Reports system reviewed and no additional complaints, except as documented Gastrointestinal Gastrointestinal: Reports system reviewed and no additional complaints, except as documented Genitourinary Genitourinary: Reports system reviewed and no additional complaints, except as documented Musculoskeletal Musculoskeletal: Reports system reviewed and no additional complaints, except asdocumented Neurologic Neurologic: Reports system reviewed and no additional complaints, except as documented Skin: no rash, lesions PMFSH Vaccinated for COVID-19?: Unknown Medical History Cervical cancer Coronary artery disease Diabetes mellitus Surgical History History of appendectomy History of cardiac catheterization History of heart artery stent x3 placed in [facility] February 2022 Social History Smoking Status: Never smoker Meds Medications and Allergies Allergies iodine Allergy (Verified 05/09/22 11:04) Rash Sulfa (Sulfonamide Antibiotics) Allergy (Verified 05/09/22 11:04) Blister shellfish derived Adverse Reaction (Verified 05/09/22 11:04) Vomiting Home Medications aspirin 81 mg tablet,delayed release 81 mg PO DAILY 05/09/22 [History Confirmed 05/09/22] atorvastatin 80 mg tablet 80 mg PO QHS 05/09/22 [History Confirmed 05/09/22] clopidogrel 75 mg tablet 75 mg PO DAILY 05/09/22 [History Confirmed 05/09/22] dapagliflozin 10 mg tablet (Farxiga) 10 mg PO DAILY 05/09/22 [History Confirmed 05/09/22] dorzolamide 22.3 mg-timolol 6.8 mg/mL eye drops 1 drp Eye-Right 2XD 05/09/22 [History Confirmed 05/09/22] furosemide 20 mg tablet See Rx Instructions .Route .COMPLEX PRN Edema 05/09/22 [History Confirmed 05/09/22] insulin glargine 100 unit/mL (3 mL) subcutaneous pen (Lantus Solostar U-100 Insulin) 32 unit subcut QHS 05/09/22 [History Confirmed 05/09/22] metoprolol succinate 50 mg tablet,extended release 24 hr 50 mg PO DAILY 05/09/22[History Confirmed 05/09/22] potassium chloride 10 mEq tablet,extended release 10 meq PO BID 05/09/22 [History Confirmed 05/09/22] ropinirole 0.25 mg tablet 0.25 mg PO DAILY 05/09/22 [History Confirmed 05/09/22] sacubitril 24 mg-valsartan 26 mg tablet (Entresto) 1 tab PO BID 05/09/22 [History Confirmed 05/09/22] Exam Physical Exam Vital Signs: Temp Pulse Resp BP Pulse Ox O2 Del Method 97.9 F 73 18 129/72 99 Room Air 05/09/22 09:40 05/09/22 10:52 05/09/22 10:52 05/09/22 10:52 05/09/22 10:52 05/09/22 10:52 Narrative: Const General: cooperative, comfortable, in no acute distress HEENT Head: normal to inspection Nose: external nose normal Mouth: oral mucosae normal and lip normal Eyes Conjunctivae: conjunctivae normal Neck Neck: normal visual inspection Chest inspection: normal inspection of the chest Resp Effort & Inspection: normal respiratory effort, not labored, no respiratory distress Auscultation: clear to auscultation b/l, no crackles, no wheezes Cardio Rate: normal rate Rhythm: regular rhythm Heart Sounds: S1 normal, S2 normal and no murmurs GI Inspection: non-distended Palpation: soft, not firm and nontender Neuro General: alert, awake and oriented x3. No obvious focal deficit Extrem General: no cyanosis, no pedal edema Psych Appearance: grossly normal Affect: normal affect Attitude: cooperative A&P - Hospitalist Assessment/Plan (1) NSTEMI (non-ST elevated myocardial infarction): (2) CAD (coronary artery disease): (3) HTN (hypertension): (4) HLD (hyperlipidemia): (5) DM (diabetes mellitus): Plan Acute NSTEMI Recent cardiac cath s/p mid LAD stent 03/07/22, then RCA and PDA on 04/21/22 at [facility] PE was ruled out by CTA Aortic dissection was ruled out by CTA -Patient was transferred from [facility] for NSTEMI for possible cardiac cath -Initial troponin at [facility] was normal then repeat was in 600s. Repeat troponin in our facility remains in the 600s. Patient denies any chest pain or epigastric pain, however, she does report bloating sensation in the epigastrium -Patient was started on heparin drip ACS protocol at [facility]. We will continuefor now. Further recommendations to follow by cardio -Heparin drip management per pharmacy protocol for ACS -Check serial troponin -Cardiology was consulted. We will follow-up recommendations -Continue DAPT, statin, beta-reginaldo -Check Echocardiogram -Admit to 4 P for close monitoring Uncontrolled Diabetes with hyperglycemia -HbA1C today 10.8 -Blood glucose at [facility] was 499. Negative for ketones. DKA was ruled out -We will start long-acting 32 units nightly. For short acting will use corrective sliding scale for now #2. We will adjust as needed -We will need aggressive diabetes management Resume home medications once verified CODE STATUS: Full code DVT prophylaxis with heparin drip Discussed with patient and family at bedside. All questions answered Documented By: Herminia Lawler MD 05/09/22 13 17 Signed By: <Electronically signed by Herminia Lawler MD> 05/09/22 1550 [facility] Work Phone: [phone] 116-940608-01-2022 History general Narrative - Reported* Type Description Date Medical History DM2 Medical History HTN Medical History cervical cancer stage 1 Medical History glaucoma Medical History DC Medical History coronary artery dise ase-stents x3 February/March 2022 Surgical History MIREYA 1989 Surgical History appedectomy 1960 Surgical History breast biopsy-benign unsure of date Surgical History Stents x3 2021 Hospitalization History See Above Neurodyn Other Discharge summary Author Herminia Lawler [facility] May 11, 2022 2:35pm Note Date/Time May 11, 2022 2:27pm [facility] [address] [place] [address] Discharge Summary Signed Patient: Tere Aragon MR#: [id number] : 1940 Acct:[id number] Age/Sex: 82 / F Adm Date: 2 Loc: Room: [address] [place] [address]: Herminia Lawler MD Copies to: MD Herminia Owens II, MD~ Providers Date of Discharge: 05/11/22 Discharging Provider: Herminia Lawler Primary Care Provider: Rodrick Butler Consults: 05/09/22 12:46 Consult to Cardiology Routine 05/10/22 08:46 Consult to Physical Therapy Routine Discharge Diagnosis (1) Elevated troponin: (2) CAD (coronary artery disease): (3) Epigastric abdominal pain: Final Diagnosis Final Discharge Diagnosis: As above Summary Hospital Course Hospital course: Patient is an 82 elderly female with PMH HTN, DM, CAD s/p recent PCIs, patient had symptoms of SOB and fatigue on exertion in February and went to [facility], She had Echo with EF 40%, positive stress test for which cardiac cath was done and required stent in mid LAD 03/07/22. Patient was discharge on cardiac regimen andstated that she was compliant with DAPT and other meds. Then she had similar symptoms afterwards and went back there, another cardiac cath done with successful stents placement in RCA and PDA by Dr. Breen. Patient continued DAPT and stated compliance. This time, patient presented at [facility] with epigastric pain, initial troponin was negative, EKG with no acute ischemic changes. 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 Last Echo on report with EF 40%. Repeat Troponin at [facility] uptrended to 600s, EKG with no acute ischemic changes again, given her recent cardiac history, raised the concern forstent thrombosis. Patient was started on IV heparin drip for presumptive NSTEMI and decision made to transfer patient over here to [facility] for possible cardiac cath. In our facility, patient appears to be asymptomatic. The epigastric pain that she had is gone. Cardiology was consulted. Per cardio, epigastric pain likely due to physiologic stress superimposed on otherwise stable coronary artery disease, low suspicion for acute or subacute stent thrombosis. Troponin levels did trend down , and remained asymptomatic during hospital course. GI etiology is suspected more than a cardiac etiology of the patient's symptoms for which she was started on Pepcid . Per cardiology explanation, she has a chronic occlusion of the LAD with collaterals, suspicion is that the physiologic stress caused ischemia in this territory and hence the mild troponin elevation that waswitnessed. Patient was continued on guideline directed therapy. Patient remained hemodynamically stable for discharge from cardiology standpoint, heparin drip was discontinued. Patient is stable for discharge with appropriatefollow-up and instructions as indicated in the discharge summary. Condition Condition at Discharge: Stable Time Spent with Patient Time spent providing/coordinating discharge services (# min): 45 Diagnostic Studies Completed and Pending Studies Pending studies at discharge: 05/12/22 05:00 Magnesium [CHEM] IN AM 05/13/22 05:00 Magnesium [CHEM] IN AM Labs on day of discharge: 05/11/22 11:47: POC Glucose 281 05/11/22 07:57: POC Glucose 109 05/11/22 04:49: PHA Creatinine Clear 42.73, Sodium 137, Potassium 3.8, Chloride 107, Carbon Dioxide 20.2 L, Anion Gap 13.6, BUN 21, Creatinine 0.97, Est GFR ( Amer) > 60, Est GFR (Non-Af Amer) 55, Glucose 187 H, Calcium 9.8, Magnesium 1.7 05/11/22 04:49: APTT 43.7 H 05/11/22 04:49: Troponin I High Sens 97 H* 05/10/22 21:35: POC Glucose 244, POC Glucose Comment Glu2: cleaned meter 05/10/22 16:47: POC Glucose 283 05/10/22 13:27: Troponin I High Sens 180 H* Exam Physical Exam Vital Signs: Temp Pulse Resp BP Pulse Ox O2 Del Method 97.3 F L 78 20 122/75 95 Room Air 05/11/22 11:34 05/11/22 11:34 05/11/22 11:34 05/11/22 11:34 05/11/22 11:34 05/11/22 11:34 Narrative: Const General: cooperative, comfortable, in no acute distress HEENT Head: normal to inspection Nose: external nose normal Mouth: oral mucosae normal and lip normal Eyes Conjunctivae: conjunctivae normal Neck Neck: normal visual inspection Chest inspection: normal inspection of the chest Resp Effort & Inspection: normal respiratory effort, not labored, no respiratory distress Auscultation: clear to auscultation b/l, no crackles, no wheezes Cardio Rate: normal rate Rhythm: regular rhythm Heart Sounds: S1 normal, S2 normal and no murmurs GI Inspection: non-distended Palpation: soft, not firm and nontender Neuro General: alert, awake and oriented x3. 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 Follow up as outpatient - Referral to endocrinology clinic for better diabetes control and labile blood glucose management - Continue to follow-up with your private cardiology -Return to ER in case of worsening in symptoms or developing new alarming symptoms Instructions: Acid Reflux and GERD in Adults (DC), Irritable Bowel Syndrome (DC), Coronary Artery Disease (DC) Prescriptions: New famotidine 20 mg Tablet 20 mg PO BID 30 Days Qty: 60 0RF Continued metoprolol succinate 50 mg tablet extended release 24 hr 50 mg PO DAILY potassium chloride 10 mEq tablet extended release 10 meq PO BID PRN (Reason: diuresis) Rx Instructions: take only when taking PRN furosemide clopidogrel 75 mg tablet 75 mg PO DAILY dorzolamide-timolol 22.3-6.8 mg/mL drops 1 drp Eye-Right 2XD Label Comments: Instill 1 drop into Right Eye twice a day furosemide 20 mg tablet See Rx Instructions .ROUTE .COMPLEX PRN (Reason: Edema) Rx Instructions: TAKE 1 TABLET BY MOUTH DAILY FOR 3 DAYS then stop; may repeat NEEDED for increased swelling insulin glargine [Lantus Solostar U-100 Insulin] 100 unit/mL (3 mL) insulin pen 32 unit SUBCUT QHS Entresto 24-26 mg tablet 1 tab PO BID Farxiga 10 mg tablet 10 mg PO DAILY atorvastatin 80 mg tablet 80 mg PO QHS aspirin 81 mg Tablet,Delayed Release (Dr/Ec) 81 mg PO DAILY ropinirole 0.25 mg tablet 0.25 mg PO DAILY Follow Up: Itz Arguello MD [Active Staff] - (Cardiology office will arrange outpatient follow-up. ) Rodrick Butler II, MD [Primary Care Provider] - (Call office on Thursday to schedule follow-up with your Primary Care Provider in 3-[address] AP at [facility] found to have incidentaloma left adrenal 3.6 mass.Need outpatient follow up. Also strict glucose follow up. Maybe endocrinology referral. 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 Follow up as outpatient - Referral to endocrinology clinic for better diabetes control and labile blood glucose management - Continue to follow-up with your private cardiology -Return to ER in case of worsening in symptoms or developing new alarming symptoms[facility] Work Phone: Reason for visit NarrativeSelf Referral, [facility] Visit Codes, TKM [employer] Other Summary Purpose Family History No Family History Records FoundNo Family History Records FoundNo Family History Records FoundNo Family History Records FoundNo Family History Records FoundNo Family History Records FoundNo Family History Records Found Advance Directives No Advanced Directives Records Found Advance Directive Response Recorded Date/ Time Advance Directives No May 8:35am Chief Complaint and Reason for Visit Chief Complaint non stemi Reason for Visit CAD (coronary artery disease) DM (diabetes mellitus) Elevated troponin Epigastric abdominal pain HLD (hyperlipidemia) HTN (hypertension) Additional Source Comments INFORMATION SOURCE (unrecogn ized section and content) DATE CREATED AUTHOR 04/28/2022 [facility] DATE CREATED AUTHOR AUTHOR'S ORGANIZ ATION 05/27/2022 [facility] DATE CREATED AUTHOR AUTHOR'S ORGANIZ ATION 10/04/2022 [facility] DATE CREATED AUTHOR AUTHOR'S ORGANIZ ATION 12/05/2022 [facility] DATE CREATED AUTHOR AUTHOR'S ORGANIZ ATION 05/14/2023 [facility] DATE CREATED AUTHOR AUTHOR'S ORGANIZ ATION 08/15/2023 [facility] DATE CREATED AUTHOR AUTHOR'S ORGANIZ ATION 09/06/2023 [facility] Care Teams (unrecognized sec tion and content) Team Status: Inactive Member Role Status Dates Rodrick Butler II MD Primary Care Provider Active Herminia Lawler MD Admit Provider, Attending Provi joanna Active Jessica Rojas RN Other Provider Active Darrion Gilbert DO Other Provider Active Bo Boothe MD Other Provider Active Itz Arguello MD Other Provider Active Azra Cedillo MD Other Provider Active Jesse Sahu MD Other Provider Active Adrianna Magaña APRN Other Provider Active Jackie Curtis MD Other Provider Active August Obrien MD Other Provider Active Brenna Veras MD Other Provider Active Team Status: Active Member Role Status Dates Rodrick Butler II MD Primary Care Provider Active FOR RECORDS PERTAINING TO PATIENTS WHO ARE OR HAVE BEEN ENROLLED IN A CHEMICAL DEPENDENCY/SUBSTANCEABUSE PROGRAM, SOME INFORMATION MAY BE OMITTED. This clinical summary was aggregated from multiple sources. Caution should be exercised in using it in the provision of clinical care. This summary normalizes information from multiple sources, and as a consequence, information in this document may materially change the coding, format and clinical context of patient data. In addition, data may be omitted in some cases. CLINICAL DECISIONS SHOULD BE BASED ON THE PRIMARY CLINICAL RECORDS. [facility] [employer] provides no warranty or guarantee of the accuracy or completeness of information in this document.
[2023-09-07 12:01] LABS: Glucometer 228 mg/dL (74-106)
[2023-09-07] MEDS: INSULIN ASPART 300 UNIT/3 ML PEN SUBQ (12:01)
--- NOTE | 2023-09-07 16:08 | PC.NURSE ---
Transferred to [facility] [employer] via [employer]. Report called to [employer]
== END 2023-09-07 15:55 | disposition short-term general hospital (02) | DRG 280 ==
LOC: ER 11:24 → MS 20:14 → ICU 09-06 07:40 → MS 09-07 10:24 → ICU 09-07 11:50 → MS 09-07 11:50
PROVIDERS: Family Medicine; Admitting Provider Family Medicine; Emergency Provider Emergency Medicine; PCP Internal Medicine; Visit Provider Family Medicine
DX: I21.4 Non-ST elevation (NSTEMI) myocardial infarction (principal); I50.41 Acute combined systolic (congestive) and diastolic (congestive) heart failure; E44.0 Moderate protein-calorie malnutrition; E87.1 Hypo-osmolality and hyponatremia; E87.20 Acidosis, unspecified; R00.1 Bradycardia, unspecified; J06.9 Acute upper respiratory infection, unspecified; B97.4 Respiratory syncytial virus as the cause of diseases classified elsewhere; Z68.24 Body mass index [BMI] 24.0-24.9, adult; E11.9 Type 2 diabetes mellitus without complications; Z79.4 Long term (current) use of insulin; D69.6 Thrombocytopenia, unspecified; I44.1 Atrioventricular block, second degree; Z95.5 Presence of coronary angioplasty implant and graft; Z79.899 Other long term (current) drug therapy; Z88.2 Allergy status to sulfonamides; Z88.8 Allergy status to other drugs, medicaments and biological substances; I25.2 Old myocardial infarction; Z85.42 Personal history of malignant neoplasm of other parts of uterus; E86.0 Dehydration
CPT/HCPCS: 0202U; 36415; 71045; 71046; 80048; 80053; 81003; 82550; 82948; 83735; 83880; 84436; 84443; 84481; 84484; 85025; 87070; 87205; 87635; 87804; 87811; 93005; 94761; 96361; 96365; 96375; 97161; 99285; G0378; J1940

== ENCOUNTER 2023-09-29 13:35 | Emergency (ER) | payer MEDICARE, SELFPAY ==
[2023-09-29] VITALS (9 sets, daily range): BP systolic 150–196; BP diastolic 67–84; PULSE 64–74; RESP 18; TEMP 36.7; O2SAT 99; BMI 28.6
--- OUTSIDE RECORDS SUMMARY | 2023-09-29 13:46 | XMS_ITS | CCD ---
Author Name Unknown Address [address] [place] [address] Organization [facility] Care Team Providers Care Director Strategic Planning Name Role Phone RODRICK BUTLER Primary Care Unavailable RODRICK BUTLER Referring Unavailable SILVINA BREEN Admitting Unavailable SILVINA BREEN Attending Unavailable RODRICK BUTLER Primary Care Unavailable RODRICK BUTLER Referring Unavailable SILVINA BREEN Admitting Unavailable SILVINA BREEN Attending Unavailable CHANDA Butler Primary Care Provider MD Herminia Lawler Admit Provider MD Herminia Lawler Attending Provider KY Rojas Other Provider Unavailable DO Darrion Gilbert Other Provider MD Bo Boothe Other Provider MD Itz Townsend Other Provider MD Azra Cedillo Other Provider MD Jesse Sahu Other Provider JUAN Ramos Other Provider MD Jackie Curtis Other Provider MD August Obrien Other Provider MD Brenna Veras Other Provider Itz Townsend II Attending Unavailable Itz Townsend II Attending Unavailable Itz Townsend II Attending Unavailable Heather Soler Unavailable DR RODRICK BUTLER Attending Unavailable DR RODRICK BUTLER Admitting Unavailable DR RODRICK BUTLER Primary Care Unavailable BUTLER, DR BECERRA Consulting Unavailable ZIEBER, DR LOUIS Brice Consulting Unavailable BUTLER, DR BECERRA Attending Unavailable BUTLER, DR BECERRA Admitting Unavailable BUTLER, DR BECERRA Primary Care Unavailable BUTLER, DR BECERRA Consulting Unavailable ZIEBER, DR LOUIS rBice Consulting Unavailable BUTLER, DR BECERRA Primary Care Unavailable REFUGIO, AHMAD Attending Unavailable REFUGIO, AHMAD Admitting Unavailable REFUGIO, AHMAD Consulting Unavailable ANDRESSA, ABBIE Attending Unavailable ANDRESSA, ABBIE Admitting Unavailable ANDRESSA, ABBIE Consulting Unavailable BUTLER, DR BECERRA Primary Care Unavailable BUTLER, DR BECERRA Primary Care Unavailable ANDRESSA, ABBIE Consulting Unavailable ANDRESSA, ABBIE Attending Unavailable ANDRESSA, ABBIE Admitting Unavailable BUTLER, DR BECERRA Primary Care Unavailable FAWWAD, CARRASCO H Attending Unavailable FAWWAD, CARRASCO H Admitting Unavailable WEST, DR CARMEN Kearns Consulting Unavailable JACKIE, DR HOPE Consulting Unavailable OLEARY, JEAN-CLAUDE Consulting Unavailable FAWWAD, CARRASCO H Consulting Unavailable NEFCY, EDWIGE Consulting Unavailable CARLOS, REJI Attending Unavailable CARLOS, REJI Admitting Unavailable BUTLER, DR BECERRA Primary Care Unavailable NADERER, DR ARTURO Vidal Consulting Unavailable JAME, THOMAS Consulting Unavailable CARLOS, REJI Consulting Unavailable CHRISTINA MESSINA Consulting Unavailable LUKE, DR BECERRA Primary Care Unavailable ZIEBER, DR LOUIS Brice Consulting Unavailable MARKER ., DR VAZQUEZ Attending Unavailable MARKER ., DR VAZQUEZ Admitting Unavailable MARKER ., DR VAZQUEZ Consulting Unavailable BUTLER, DR BECERRA Primary Care Unavailable REINECK, DR CORTEZ Robertson Attending Unavailabl e REINECK, DR CORTEZ Robertson Admitting Unavailabl e REINECK, DR CORTEZ Robertson Consulting Unavailabl e BUTLER, DR BECERRA Referring Unavailable BUTLER, DR BECERRA Primary Care Unavailable ANDRESSA, ABBIE Attending Unavailable ANDRESSA, ABBIE Consulting Unavailable ANDRESSA, ABBIE Admitting Unavailable ANDRESSA, ABBIE Admitting Unavailable ANDRESSA, ABBIE Consulting Unavailable ANDRESSA, ABBIE Attending Unavailable BUTLER, DR BECERRA Primary Care Unavailable ANDRESSA, ABBIE Consulting Unavailable BUTLER, DR BECERRA Primary Care Unavailable ANDRESSA, ABBIE Attending Unavailable ANDRESSA, ABBIE Admitting Unavailable BUTLER, DR BECERRA Attending Unavailable BUTLER, DR BECERRA Admitting Unavailable BUTLER, DR BECERRA Primary Care Unavailable BUTLER, DR BECERRA Consulting Unavailable ZIEBER, DR LOUIS Brice Consulting Unavailable PIRKL, OSWALD Referring Unavailable EULA, CODY Referring Unavailable FARIBA, SHAMIKA Referring Unavailable FARIBA, SHAMIKA Referring Unavailable GABY STAHLLAS Referring Unavailable CODY FORDE Admitting Unavailable ALEX MARTINEZ Attending Unavailab CODY Hunt Attending Unavailable ISIDORO CHERY Admitting Unavailable JAMAICA MATTHEWS Referring Unavailable PIRKL, OSWALD Referring Unavailable ABBIE CRISOSTOMO Attending Unavailable ABBIE CRISOSTOMO Attending Unavailable PRINCESS, EHAB Attending Unavailable RODRICK BUTLER Attending Unavailable RODRICK BUTLER Attending Unavailable RODRICK BUTLER Attending Unavailable Heather Soler Attending Unavailable Heather Soler Admitting Unavailable Rodrick Butler Primary Care Unavailable Allergies Allergy Classification Reported Allergen(s) Allergy Type Date of Onset Reaction(s) Facility (4 sources) Iodine Drug Allergy 2 Rash [facility] Repository (6 sources) Sulfonamides (Antibiotic); 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: [SULFA (SULFONAMIDE ANTIBIOTICS)] Drug allergy (disorder) 5 Blister [facility] Repository (4 sources) Shellfish; 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: [shellfish derived] Propensity to adverse reactions 2 [facility] (1 source) Sulfonamides (Antibiotic) Propensity to adverse reactions mouth sores [facility] Other (1 source) shellfish/iodine Propensity to adverse reactions vomiting [facility] Other (1 source) empagliflozin Drug Allergy [facility] Repository (1 source) Iodine Drug Allergy 5 [facility] Repository (1 source) Shellfish Drug allergy (disorder) 5 [facility] Repository (1 source) empagliflozin; 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: [EMPAGLIFLOZIN] Drug Allergy 2 [facility] Repository (1 source) Iodine Drug Allergy 2 [facility] Repository (1 source) Sulfonamides (Antibiotic) Drug allergy (disorder) 2 [facility] Repository Medications Current Medications Medication Drug Class(es) Dates Sig (Normalized) Sig (Original) aspirin 81 mg delayed release oral tablet (4 sources) Platelet Aggregation Inhibitor, Nonsteroidal Anti-inflammatory Drug Start: 05-09-2022 take 81 mg by mouth once daily Aspirin Active 81 MG PO Daily May 08, 2022 11:00pm atorvastatin 80 mg oral tablet (4 sources) HMG-CoA Reductase Inhibitor Start: 05-09-2022 take 80 mg by mouth once daily at bedtime Atorvastatin Active 80 MG PO Daily at bedtime May 08, 2022 11:00pm take 1 tablet by keaton th every twenty-four hours Atorvastatin Calcium 40 MG 1 tablet Oral ly Once a day Active carvedilol 12.5 mg oral tablet (1 source) alpha-Adrenergic Reginaldo, beta-Adrenergic Reginaldo take 1 tablet by mouth every twelve hours Carvedilol 12.5 MG 1 tablet with food Orally Twice a day Active clopidogrel 75 mg oral tablet (4 sources) P2Y12 Platelet Inhibitor Start: take 75 mg by mouth once daily Clopidogrel Active 75 MG PO Daily May 08, 2022 11:00pm dapagliflozin 10 mg oral tablet (4 sources) Sodium-Glucose Cotransporter 2 Inhibitor Start: take 1 tablet by mouth once daily Dapagliflozin Propanediol (Farxiga) 10 mg tablet Active 10 MG PO Daily May 08, 2022 11:00pm dorzolamide 20 mg/ml / timolol 5 mg/ml ophthalmic solution (4 sources) Carbonic Anhydrase Inhibitor, beta-Adrenergic Reginaldo Start: take 1 drop(s) into the eye(s) twice daily Dorzolamide-Timolol Active 1 DROPS EYE-RIGHT 2 times daily May 08, 2022 11:00pm take 1 drop(s) into the eye(s) twice daily Dorzolamide HCl-Timolol Mal 22.3-6.8 MG/ ML 1 drop into affected eye Ophthalmic Twice a day Active famotidine 20 mg oral tablet (3 sources) Histamine-2 Receptor Antagonist Start: 05-11-2022 take 20 mg by mouth twice daily Famotidine Active 20 MG PO Twice daily 60 30 May 10, 2022 11:00pm FreeStyle Marianne 2 [place] - (1 source) Start: 09-23-2022 FreeStyle Libr e 2 [place] - as directed -- 5 x day for 365 days Sending to [facility] medical Aug, Active FreeStyle Marianne 2 Sensor - (1 source) Start: 09-23-2022 FreeStyle Libr e 2 Sensor - as directed in vitro q 14 days for 84 days Sending to [facility] medical Aug, Active furosemide 20 mg oral tablet (3 sources) Loop Diuretic Start: 05-09-2022 Furosemide Act edmundo 0 .ROUTE .COMPLEX May 08, 2022 11:00pm TAKE 1 TABLET BY MOUTH DAILY FOR 3 DAYS then stop; may repeat NEEDED for increased swelling glipiZIDE (1 source) Sulfonylurea Glucotrol Active 3 ml insulin glargine 100 unt/ml pen injector (4 sources) Insulin Analog Start: 05-09-2022 Insulin Glargi ne (Lantus Solostar U-100 Insulin) 100 unit/mL (3 mL) insulin pen Active 32 UNIT SUBCUT Daily at bedtime May 08, 2022 11:00pm Start: 01-08-2012 Lantus SoloSta r 100 UNIT/ML [...] succinate 50 mg extended release oral tablet (6 sources) beta-Adrenergic Reginaldo Start: 05-09-20 take 50 mg by mouth once daily Metoprolol Succinate Active 50 MG PO Daily May 08, 2022 11:00pm Start: 05-09-2022 End: 05-09-2022 Metoprolol Succinate Discont inued MG PO May 08, 2022 11:00pm May 09, 2022 9:42am potassium chloride 10 meq extended release oral tablet (3 sources) Start: 05-09-2022 take 10 mEq by mouth twice daily as needed Potassium Chloride Active 10 MEQ PO Twice daily May 08, 2022 11:00pm take only when taking PRN furosemide rOPINIRole 0.25 mg oral tablet (3 sources) Nonergot Dopamine Agonist Start: 05-09-2022 take 0.25 mg by mouth once daily Ropinirole Active 0.25 MG PO Daily May 08, 2022 11:00pm sacubitril 24 mg / valsartan 26 mg oral tablet (4 sources) Angiotensin 2 Receptor Reginaldo Start: 05-09-2022 take 1 tablet by mouth twice daily Sacubitril-Valsar erazo (Entresto) 24-26 mg tablet Active 1 TAB PO Twice daily May 08, 2022 11:00pm ENTRESTO 24 mg/2 6 mg 1 orally twice a day Active zolpidem tartrate 10 mg oral tablet (1 source) gamma-Aminobutyric Acid-ergic Agonist take 1 tablet by mouth every twenty-four hours Ambien 10 MG 1 tablet at bedtime as needed Orally Once a day Active Completed/Discontinued Medications Medication Drug Class(es) Dates Sig (Normalized) Sig (Original) losartan potassium 50 mg oral tablet (3 sources) Angiotensin 2 Receptor Reginaldo Start: 05-09-2022 End: 05-09-2022 Losartan Discontinued MG TABLET May 08, 2022 11:00pm May 09, 2022 2:23pm Problems Active Problems Problem Classification Problem Date Documented Da te Episodic/Chronic Abdominal pain (11 sources) Epigastric pain; 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: [Epigastric pain] Onset: 2 05-10-2022 Episodic Acute myocardial infarction (4 sources) Myocardial infarction; 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: [Non-ST elevation (NSTEMI) myocardial infarction] Onset: 2 05-09-2022 Chronic Administrative/social admission (1 source) Dietary counseling and surveillance Episodic Cardiac dysrhythmias (4 sources) Palpitations; 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: [PALPITATIONS] Onset: 2 Episodic Chronic kidney disease (1 source) Chronic kidney disease; 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: [CHRONIC KIDNEY DISEASE STAGE 3A] Onset: 2 Conditions associated with dizziness or vertigo (3 sources) Dizziness and giddiness; 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: [DIZZINESS AND GIDDINESS] Onset: 3 Episodic Conduction disorders (4 sources) Conduction disorder, unspecified; 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: [Unspecified atrioventricular block] Onset: 4 Chronic Congestive heart failure; nonhypertensive (6 sources) Unspecified systolic (congestive) heart failure; 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: [Chronic systolic (congestive) heart failure] Onset: 2 Chronic Coronary atherosclerosis and other heart disease (10 sources) Coronary arteriosclerosis; 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: [Atherosclerotic heart disease of kaw coronary artery without angina pectoris] Onset: 3 05-09-2022 Chronic Coronary atherosclerosis and other heart disease (2 sources) Presence of coronary angioplasty implant and graft; 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: [PRESENCE COR ANGPLSTY IMPLANT AND GRAFT] Onset: 2 Episodic Diabetes mellitus with complications (5 sources) Hyperglycemia due to type 2 diabetes mellitus; 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: [Type 2 diabetes mellitus with hyperglycemia] Onset: 2 Chronic Diabetes mellitus without complication (5 sources) Diabetes mellitus; 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: [Type 2 diabetes mellitus without complications] 05-09-2022 Chronic Disorders of lipid metabolism (8 sources) Hyperlipidemia; 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: [Hyperlipidemia, unspecified] Onset: 3 05-09-2022 Chronic Diverticulosis and diverticulitis (1 source) Diverticular disease of colon; 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: [Diverticulosis of large intestine without perforation or abscess without bleeding] Chronic E Codes: Fall (1 source) Unspecified fall, initial encounter; 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: [UNSPECIFIED FALL INITIAL ENCOUNTER] Onset: 3 Episodic Essential hypertension (9 sources) Hypertensive disorder; 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: [Essential (primary) hypertension] Onset: 4 05-09-2022 Chronic Hypertension with complications and secondary hypertension (2 sources) Hypertensive chronic kidney disease with stage 1 through stage 4 chronic kidney disease, or unspecified chronic kidney disease; 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: [Hypertensive heart and chronic kidney disease with heart failure and stage 1 through stage 4 chronic kidney disease, or unspecified chronic kidney disease] Onset: 3 Chronic Menopausal disorders (4 sources) Other primary ovarian failure; 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: [OTHER PRIMARY OVARIAN FAILURE] Onset: 3 Chronic Nonspecific chest pain (5 sources) Other chest pain; 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: [Chest pain, unspecified] Onset: 2 Episodic Nutritional deficiencies (2 sources) Vitamin D deficiency; 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: [Vitamin D deficiency, unspecified] Chronic Osteoporosis (1 source) Age-related osteoporosis without current pathological fracture; 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: [AGE-REL OSTEOPOR W/O CURR PATH FX] Onset: 3 Chronic Other aftercare (1 source) Long-term current use of insulin; 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: [snf (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 of insulin] Episodic Other aftercare (2 sources) 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; 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] Onset: 3 Episodic Other aftercare (1 source) middle or intermediate school principal (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 of aspirin; 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: [[facility] CURRENT USE OF ASPIRIN] Onset: 3 Episodic Other aftercare (1 source) Other care home (current) drug therapy; 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: [OTH [facility] CURRENT DRUG THERAPY] Onset: 3 Episodic Other aftercare (1 source) middle or intermediate school principal (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 of antithrombotics/antipl atelets; 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: [ROLL FORMING SUPERVISOR ANTITHROMBOT/ANTIPLATL ETS] Onset: 3 Episodic Other endocrine disorders (4 sources) Other specified disorders of adrenal gland; 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: [OTHER SPEC DISORDERS ADRENAL GLAND] Onset: 2 Chronic Other gastrointestinal disorders (1 source) H/O: colitis; 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: [Personal history of other diseases of the digestive system] Episodic Other hematologic conditions (3 sources) Raised cardiac enzyme or marker; 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: [Other specified abnormalities of plasma proteins] 05-09-2022 Episodic Other hematologic conditions (2 sources) Other specified abnormalities of plasma proteins; 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: [Other abnormal blood chemistry] 05-11-2022 Episodic Other injuries and conditions due to external causes (1 source) Unspecified injury of head, initial encounter; 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: [UNSPECIFIED INJURY HEAD INITIAL ENC] Onset: 3 Episodic Other lower respiratory disease (1 source) Shortness of breath; 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: [SHORTNESS OF BREATH] Onset: 3 Episodic Other skin disorders (1 source) Localized swelling, mass and lump, lower limb, bilateral; 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: [LOC SWELL MASS LUMP LOW LIMB MIKE] Onset: 3 Episodic Unclassified (1 source) CHRN KIDNEY DISEASE STG 3 UNSP; 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: [CHRN KIDNEY DISEASE STG 3 UNSP] Onset: 3 Unclassified (1 source) CONTACT W/AND (SUSP) EXPOS COVID-19; 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: [CONTACT W/AND (SUSP) EXPOS COVID-19] Onset: 3 Urinary tract infections (1 source) Urinary tract infection, site not specified; 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: [UTI SITE NOT SPECIFIED] Onset: 3 Episodic Past or Other Problems Problem Classification Problem Date Documented Date Episodic/Chronic Other lower respiratory disease (1 source) Dyspnea, unspecified; 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: [DYSPNEA UNSPECIFIED] Onset: 02-13-2022 Episodic Other screening for suspected conditions (not mental disorders or infectious disease) (5 sources) Abnormal result of other cardiovascular function study; 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: [Abnormal electrocardiogram [ECG] [EKG]] Onset: 02-13-2022 Episodic Results Test Name Value Interpretation Reference Range Facility Office Visiton 09-16-2023 Follow-up visit [id number] Toya Hartmann 1940 F Date Provider Department Center 09/16/2023 ABBIE WEBER CARD [facility] Family History Problem Relation Age of Onset Hypertension Mother Coronary artery disease Mother Coronary artery disease Father Hypertension Father Hypertension Sister Coronary artery disease Brother Family Status - Relation Status Age at Mother Father Sister Brother Level of Service:33398 UT POSTOP FOLLOW UP VISIT RELATED TO ORIGINAL PX Normal [facility] BASIC METABOLIC PANELon 08-31 Anion gap [Moles/Vol] 15 mmol/L Normal 7-20 [facility] Comment on above: Performed By: #### L [id number] #### [facility] ([facility]) [address] [place] [address] Calcium [Mass/Vol] 10.1 mg/dL Normal 8.6-10.3 [facility] Comment on above: Performed By: #### L [id number] #### [facility] ([facility]) [address] [place] [address] Chloride [Moles/Vol] 103 mmol/L Normal 98-107 [facility] Comment on above: Performed By: #### L [id number] #### [facility] ([facility]) [address] [place] [address] CO2 [Moles/Vol] 21 mmol/L Normal 21-31 [facility] Comment on above: Performed By: #### L [id number] #### [facility] ([facility]) [address] [place] [address] Creatinine [Mass/Vol] 0.95 mg/dL Normal 0.60-1.20 [facility] Comment on above: Performed By: #### L [id number] #### [facility] ([facility]) [address] [place] [address] GLOMERULAR FILTRATION RATE ML/MIN/1.73 SQ M.PREDICTED 59.1 mL/min/1.73m*2 Low >60.0 [facility] Comment on above: Result Comment: [facility]???s estimated glomerular filtration rate (eGFR) will no longer include consideration of race in its calculation. The National Kidney Foundation???s eGFR Task Force developed new recommendations for the estimation of the glomerular filtration rate in the [place] They recommend immediate implementation of the new equation refit without the race variable in all laboratories because the calculation does not include race. In addition to not including race in the calculation and reporting, it included diversity in its development, and has acceptable performance characteristics and potential consequences that do not disproportionately affect any one group of individuals. Performed By: #### L [id number] #### [facility] ([facility]) [address] [place] [address] Glucose [Mass/Vol] 149 mg/dL High 70-100 [facility] Comment on above: Performed By: #### L [id number] #### [facility] ([facility]) [address] [place] [address] Potassium [Moles/Vol] 5.0 mmol/L Normal 3.5-5.1 [facility] Comment on above: Performed By: #### L [id number] #### [facility] ([facility]) [address] [place] [address] Sodium [Moles/Vol] 134 mmol/L Low 136-145 [facility] Comment on above: Performed By: #### L [id number] #### [facility] ([facility]) [address] [place] [address] Urea nitrogen [Mass/Vol] 22 mg/dL Normal 7-25 [facility] Comment on above: Performed By: #### L [id number] #### [facility] ([facility]) [address] [place] [address] UREA NITROGEN/CREATININE (MASS RATIO) IN SER/PLAS 23.2 Normal [facility] Comment on above: Performed By: #### L [id number] #### [facility] [address] [place] [address] CBCon 09-09-2023 Erythrocyte distribution width (RBC) [Ratio] 14.4 % Normal 11.5-15.0 [facility] Comment on above: Performed By: #### L [id number] #### [facility] ([facility]) [address] [place] [address] ERYTHROCYTE MEAN CORPUSCULAR HEMOGLOBIN CONCENTRATION (G/DL) BY AUTOMATED 31.3 g/dL Low 32.0-35.0 [facility] Comment on above: Performed By: #### L [id number] #### [facility] ([facility]) [address] [place] [address] Hematocrit (Bld) [Volume fraction] 42.5 % Normal 36.0-48.0 [facility] Comment on above: Performed By: #### L [id number] #### [facility] ([facility]) [address] [place] [address] Hemoglobin (Bld) [Mass/Vol] 13.3 g/dL Normal 12.0-15.0 [facility] Comment on above: Performed By: #### L [id number] #### [facility] ([facility]) [address] [place] [address] MCH (RBC) [Entitic mass] 26.2 pg Low 27.0-33.0 [facility] Comment on above: Performed By: #### L [id number] #### [facility] ([facility]) [address] [place] [address] MCV (RBC) [Entitic vol] 83.8 fL Normal 82.0-98.0 [facility] Comment on above: Performed By: #### L [id number] #### [facility] ([facility]) [address] [place] [address] PLATELETS (10*3/UL) IN BLOOD AUTOMATED COUNT 220 10*3/uL Normal 150-400 [facility] Comment on above: Performed By: #### L [id number] #### [facility] ([facility]) [address] [place] [address] RBC (Bld) [#/Vol] 5.07 10*6/uL High 3.80-5.00 [facility] Comment on above: Performed By: #### L [id number] #### [facility] ([facility]) [address] [place] [address] WBC (Bld) [#/Vol] 9.41 10*3/uL Normal 4.00-10.60 [facility] Comment on above: Performed By: #### L [id number] #### [facility] ([facility]) [address] [place] [address] MAGNESIUMon 09-09-2023 Magnesium [Mass/Vol] 1.7 mg/dL Low 1.9-2.7 [facility] Comment on above: Performed By: #### L [id number] #### [facility] ([facility]) [address] [place] [address] POCT GLUCOSE METER UNSOLICIT ED RESULTSon 09-09-2023 Glucose [Mass/Vol] 138 mg/dL High 70-105 [facility] Comment on above: Order Comment: Waive d Testing in the ED is performed under the ED CLIA certificate #[id number]. Result Comment: vcar mon Performed By: #### L [id number] #### [facility] ([facility]) [address] [place] [address] 30on 09-08-2023 30 The patient is Moderately Stable - Low risk of patient condition declining or worsening The patient's goals for the shift include comfort, rest The clinical goals for the shift include vss Over the shift, the patient did not make progress toward the following goals. Barriers to progression include na. Recommendations to address these barriers include na. Normal [facility] 30 Daily Case Managemen t Update Multidisciplinary rounds have been completed. Barriers to Discharge: S/p PPM placement. 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 Diet: Dietary Orders (From admission, onward) Start Ordered 09/08/23 0838 Diet NPO Diet effective now Comments: Sips with medications Question: Reason for NPO: Answer: Operation/Procedure 09/08/23 0837 09/08/23 0746 Special Kitchen Request Once Comments: Qatari toast with sugar free syrup, lite strawberry yogurt, white toast with jelly, turkey sausage links, decaf coffee 09/08/23 0747 Physician Expected Discharge Date: 09/08/2023 Discharge Delays: PT Six Click Score: 17 OT Six Click Score: PT Recommendations: OT Recommendations: New Consults: Consult Orders (From admission, onward) Start Ordered 09/07/231958 Inpatient consult to Cardiology Once Specialty: Cardiology Provider: (Not yet assigned) Question Answer Comment Consulting Group CARDIOLOGY TEAM Reason for Consult? AV block s/p PPM Level of Consultation Consultation and Management 09/07/231957 Normal [facility] BASIC METABOLIC PANELon Anion gap [Moles/Vol] 10 mmol/L Normal 7-20 [facility] Comment on above: Performed By: #### L [id number] ####[facility] ([facility]AKER)[address] [place] [address] Calcium [Mass/Vol] 9.3 mg/dL Normal 8.6-10.3 [facility] Comment on above: Performed By: #### L [id number] ####[facility] (BEAKER)[address] [place] [address] Chloride [Moles/Vol] 108 mmol/L High 98-107 [facility] Comment on above: Performed By: #### L [id number] ####[facility] ([facility])[address] [place] [address] CO2 [Moles/Vol] 20 mmol/L Low 21-31 [facility] Comment on above: Performed By: #### L [id number] ####[facility] (BEAKER)[address] [place] [address] Creatinine [Mass/Vol] 0.97 mg/dL Normal 0.60-1.20 [facility] Comment on above: Performed By: #### L [id number] ####[facility] (BEAKER)[address] [place] [address] GLOMERULAR FILTRATION RATE ML/MIN/1.73 SQ M.PREDICTED 57.6 mL/min/1.73m*2 Low >[address]0 [facility] Comment on above: Result Comment: [facility]???s estimated glomerular filtration rate (eGFR) will no longer include consideration of race in its calculation. The National Kidney Foundation???s eGFR Task Force developed new recommendations for the estimation of the glomerular filtration rate in the [place] They recommend immediate implementation of the new equation refit without the race variable in all laboratories because the calculation does not include race. In addition to not including race in the calculation and reporting, it included diversity in its development, and has acceptable performance characteristics and potential consequences that do not disproportionately affect any one group of individuals. Performed By: #### L [id number] ####[facility] ([facility])[address] [place] [address] Glucose [Mass/Vol] 127 mg/dL High 70-100 [facility] Comment on above: Performed By: #### L [id number] ####[facility] ([facility])[address] [place] [address] Potassium [Moles/Vol] 4.7 mmol/L Normal 3.5-5.1 [facility] Comment on above: Performed By: #### L [id number] ####[facility] ([facility])[address] [place] [address] Sodium [Moles/Vol] 133 mmol/L Low 136-145 [facility] Comment on above: Performed By: #### L [id number] ####[facility] (BEAKER)[address] [place] [address] Urea nitrogen [Mass/Vol] 22 mg/dL Normal 7-25 [facility] Comment on above: Performed By: #### L [id number] ####[facility] ([facility])[address] [place] [address] UREA NITROGEN/CREATININE (MASS RATIO) IN SER/PLAS 22.7 Normal [facility] Comment on above: Performed By: #### L [id number] ####[facility] ([facility])[address] [place] [address] CBCon 09-08-2023 Erythrocyte distribution width (RBC) [Ratio] 14.7 % Normal 11.5-15.0 [facility] Comment on above: Performed By: #### L [id number] ####[facility] ([facility])[address] [place] [address] ERYTHROCYTE MEAN CORPUSCULAR HEMOGLOBIN CONCENTRATION (G/DL) BY AUTOMATED 31.7 g/dL Low 32.0-35.0 [facility] Comment on above: Performed By: #### L [id number] ####[facility] ([facility])[address] [place] [address] Hematocrit (Bld) [Volume fraction] 42.3 % Normal 36.0-48.0 [facility] Comment on above: Performed By: #### L [id number] ####[facility] ([facility])[address] [place] [address] Hemoglobin (Bld) [Mass/Vol] 13.4 g/dL Normal 12.0-15.0 [facility] Comment on above: Performed By: #### L [id number] ####[facility] ([facility])[address] [place] [address] MCH (RBC) [Entitic mass] 26.7 pg Low 27.0-33.0 [facility] Comment on above: Performed By: #### L [id number] ####[facility] ([facility])[address] [place] [address] MCV (RBC) [Entitic vol] 84.3 fL Normal 82.0-98.0 [facility] Comment on above: Performed By: #### L [id number] ####[facility] ([facility])[address] [place] [address] PLATELETS (10*3/UL) IN BLOOD AUTOMATED COUNT 177 10*3/uL Normal 150-400 [facility] Comment on above: Performed By: #### L [id number] ####[facility] ([facility])[address] [facility] [address] RBC (Bld) [#/Vol] 5.02 10*6/uL High 3.80-5.00 [facility] Comment on above: Performed By: #### L [id number] ####[facility] ([facility])[address] [facility] [address] WBC (Bld) [#/Vol] 6.99 10*3/uL Normal 4.00-10.60 [facility] Comment on above: Performed By: #### L [id number] ####[facility] ([facility])[address] [facility] [address] HPon 09-08-2023 HP H&P reviewed. The patient was examined and there are no changes to the H&P.the patient was found to have RV lead migration, she will need lead revision Normal [facility] Orders Onlyon 09-08-2023 Orders Only [id number] Toya Hartmann 1940 F Date Provider Department Center 09/08/2023 RIVERA CAMILO [facility] Family History Problem Relation Age of Onset Hypertension Mother Coronary artery disease Mother Coronary artery disease Father Hypertension Father Hypertension Sister Coronary artery disease Brother Family Status - Relation Status Age at Mother Father Sister Brother Normal [facility] POCT GLUCOSE METER UNSOLICIT ED RESULTSon 09-08-2023 Glucose [Mass/Vol] 228 mg/dL High 70-105 [facility] Comment on above: Order Comment: Waive d Testing in the ED is performed under the ED CLIA certificate #[id number]. Result Comment: [email or web address] Performed By: #### L [id number] #### [facility] ([facility]) [address] [place] [address] Glucose [Mass/Vol] 128 mg/dL High 70-105 [facility] Comment on above: Order Comment: Waive d Testing in the ED is performed under the ED CLIA certificate #[id number]. Result Comment: vcar mon Performed By: #### L [id number] #### [facility] [address] [place] [address] Glucose [Mass/Vol] 143 mg/dL High 70-105 [facility] Comment on above: Order Comment: Waive d Testing in the ED is performed under the ED CLIA certificate #[id number]. Result Comment: vcar mon Performed By: #### L [id number] ####[facility] ([facility])[address] [place] [address] Glucose [Mass/Vol] 136 mg/dL High 70-105 [facility] Comment on above: Order Comment: Waive d Testing in the ED is performed under the ED CLIA certificate #[id number]. Result Comment: vcar mon Performed By: #### L [id number] #### [facility] ([facility]) [address] [place] [address] Glucose [Mass/Vol] 169 mg/dL High 70-105 [facility] Comment on above: Order Comment: Waive d Testing in the ED is performed under the ED CLIA certificate #[id number]. Result Comment: [email or web address] Performed By: #### L [id number] #### [facility] ([facility]) [address] [place] [address] 30on 09-07-2023 30 The patient is Moderately Stable - Low risk of patient condition declining or worsening The patient's goals for the shift include comfort The clinical goals for the shift include vss Normal [facility] ANESon 09-07-2023 ANES - Attestation signed by Cody Forde MD at 09/09/2023 6:13 PM By using the attestations below, the signing clinician agrees that I have read and verify that the documentation has been personally reviewed by me and ensure that the documentation accurately reflects the encounter. GC: I personally saw this patient on the day of the encounter, performed the horne portion(s) of the service and participated in the management and confirm the resident's documentation. Please note there may be an additional personal documentation from me. Patient: Tere Hartmann Choose an anesthesia record to view details Clinical information reviewed: Physical Exam Airway Mallampati: III Neck ROM: full Cardiovascular Rhythm: regular Dental Pulmonary - normal exam Abdominal - normal exam Abdomen: soft Anesthesia Plan ASA 3 other (Conscious sedation) intravenous induction Anesthetic plan and risks discussed with patient. Use of blood products discussed with patient who consented to blood products. Plan discussed with attending and fellow. Additional Equipment Requests Normal [facility] HPon 09-07-2023 Cardiology History & Physical Chief Complaint: Dizziness HPI: Tere Hartmann is a 83 y.o. female with history of coronary artery disease, heart failure with reduced ejection fraction was transferred from [facility], the patient presented on 09/04 due to dizziness, she was found to be bradycardic heart rate in the 30s, the patient was on Coreg at home. Which was held without improvement of her symptoms or bradycardia in 3 days. Later she was found to have second-degree AV block Mobitz 2 The patient mentioned she has been having dizzy spells for the last month, exacerbated when she was diagnosed with RSV about 2 weeks ago she did not have episode of loss of consciousness. Patient was initially transferred for permanent pacemaker placement she is known to have coronary artery disease s/p PCI in [employer]. History of PCI in ramus and RCA, chronic heart failure with reduced ejection fraction, type 2 diabetes mellitus. Patient denies fever chills or shortness of breath. Denies any chest pain denies any lower extremity swelling. Cardiology ROS: GENERAL: Denies fever, chills, night sweats, weight loss. HEENT: Denies changes in vision, photophobia, changes in hearing, epistaxis, oral bleeding. CARDIOVASCULAR: Mentioned ss. RESPIRATORY: Denies SOB, coughing, wheezing GI: Denies abdominal pain, nausea/vomiting, heartburn, melena/hematochezia. RENAL: Denies dysuria, hematuria, flank pain. MSK: Denies muscle weakness/pain, arthralgias/joint pain. NEUROLOGIC: Denies LOC, weakness, numbness, headaches. SKIN: Denies abnormal rashes or bleeding. PSYCH: Denies significant anxiety, depression, sleep disturbances. Past Medical History She has a past medical history of CHF (congestive heart failure) ([facility]), Coronary artery disease, Diabetes mellitus ([facility]), and Hyperlipidemia. Surgical History She has a [...] Allergies Sulfa (sulfonamide antibiotics) and Empagliflozin Medications Medications Prior to Admission Medication Sig Dispense Refill Last Dose aspirin 81 mg chewable tablet Chew 1 [...] time. cyproheptadine (Periactin) 4 mg tablet Take 2 mg by mouth at bedtime. dapagliflozin (Farxiga) 10 mg Take 1 tablet (10 mg) by mouth once daily as directed. 30 tablet 3 Lantus Solostar U-100 Insulin 100 unit/mL (3 mL) pen Inject under the skin in the morning and at bedtime. 25 units AM, 17 units PM sacubitriL-valsartan (Entresto) 24-26 mg tablet Take 1 tablet by mouth in the morning and at bedtime. 60 tablet 3 zolpidem (Ambien) 10 mg tablet Take 10 mg by mouth at bedtime. Last Recorded Vitals No data found. Physical Examination: GENERAL: alert and oriented x3, [...] extremities. PSYCH: appropriate mood, affect, and judgement. Relevant Lab Results No results found for this or any previous visit (from the past 4464 hour(s)). No results found for: CKTOTAL , CKMB , CKMBINDEX , TROPONINI No echocardiogram results found for the past 12 months No nuclear medicine results found for the past 12 months Relevant Imaging Results No image results found. Assessment: Second-degree AV block Mobitz 2 Chronic heart failure with reduced ejection fraction EF 40%/compensated NYHA II 3 Coronary artery disease s/p multiple PCI Type 2 diabetes mellitus Hypertension Dyslipidemia Plan: Plan for PPM placement Vinny Bueno MD Process Server - PGY4 [facility] NURSNOTEon 09-07-2023 NURSNOTE CHG wipes and betadine nasal swabs completed. Normal [facility] Orders Onlyon 09-07-2023 Orders Only [id number] Hartmann,Toya y A 1940 F Date Provider Department Center 09/07/2023 [facility] Family History Problem Relation Age of Onset Hypertension Mother Coronary artery disease Mother Coronary artery disease Father Hypertension Father Hypertension Sister Coronary artery disease Brother Family Status - Relation Status Age at Mother Father Sister Brother [facility] [place] POCT GLUCOSE METER UNSOLICIT ED RESULTSon 09-07-2023 Glucose [Mass/Vol] 70 mg/dL Normal 70-105 [facility] Comment on above: Order Comment: Waive d Testing in the ED is performed under the ED CLIA certificate #[id number]. Result Comment: [email or web address] Performed By: #### L [id number] #### [facility] ([facility]) [address] [place] [address] Office Visiton 06-03-2023 Follow-up visit [id number] Toya Hartmann 1940 F Date Provider Department Center 06/03/2023 Esther-JOSH SÁNCHEZ INA [facility] Family History Problem Relation Age of Onset Hypertension Mother Coronary artery disease Mother Coronary artery disease Father Hypertension Father Hypertension Sister Coronary artery disease Brother Family Status - Relation Status Age at Mother Father Sister Brother Level of Service:93189 UT OFFICE/OUTPATIENT ESTABLISHED LOW MDM 20-29 MIN Normal [facility] Outside Recordson 05-13-2023 Outside Records [id number]# 1.00CD:127 Normal [facility] Physician Orderon 05-13-2023 Physician Order [id number]# 1.00CD:127 Normal [facility] Office Visiton 12-17-2022 Follow-up visit [id number] Toya Hartmann 1940 Date Provider Department Center 12/17/2022 Daren-ABBIE [facility] Family History Problem Relation Age of Onset Hypertension Mother Coronary artery disease Mother Coronary artery disease Father Hypertension Father Hypertension Sister Coronary artery disease Brother Family Status - Relation Status Age at Mother Father Sister Brother Level of Service:57173 UT OFFICE/OUTPATIENT ESTABLISHED MOD MDM 30-39 MIN Reason for Visit and Comments: Follow-up [283055] - BP per EE - states no cardiac complaints at this time. Does have some slight nausea this morning since breakfast. Unknown cause. Normal [facility] BNPon 11-24-2022 Natriuretic peptide B (Bld) [Mass/Vol] 703.0 pg/mL Normal <=1,800.0 [facility] Comment on above: Performed By: #### C COUNT INCLUDES [facility] #### [facility] [address] [address] [address] Kesha Aguero CBC AUTO DIFFon 11-24-2022 BASO # 0.0 103/ul Normal 0.0-0.1 [facility] Comment on above: Performed By: #### D DIM #### [facility] [address] [place] [address] Dr. Kesha Aguero Basophils/100 WBC (Bld) 0.5 % Normal 0.2-2.0 [facility] Comment on above: Performed By: #### D DIM #### [facility] [address] [place] [address] Dr. Kesha Aguero EO # 0.1 103/ul Normal 0.0-0.7 [facility] Comment on above: Performed By: #### D DIM #### [facility] [address] [place] [address] Dr. Kseha Aguero Eosinophils/100 WBC (Bld) 1.4 % Normal 0.9-7.0 [facility] Comment on above: Performed By: #### D DIM #### [facility] [address] [place] [address] Dr. Kesha Aguero Erythrocyte distribution width (RBC) [Ratio] 14.9 % Normal 11.0-15.0 [facility] Comment on above: Performed By: #### D DIM #### [facility] [address] [place] [address] Dr. Kesha Aguero Hematocrit (Bld) [Volume fraction] 45.3 % Normal 36.0-48.0 [facility] Comment on above: Performed By: #### D DIM #### [facility] [address] [place] [address] Dr. Kesha Aguero Hemoglobin (Bld) [Mass/Vol] 13.9 g/dL Normal 12.0-16.0 [facility] Comment on above: Performed By: #### D DIM #### [facility] [address] [place] [address] Dr. Kesha Aguero IG # 0.02 10e3/ul Normal 0.00-0.03 [facility] Comment on above: Performed By: #### D DIM #### [facility] [address] [place] [address] Dr. Kesha Aguero IG % 0.2 % Normal 0.0-0.5 [facility] Comment on above: Performed By: #### D DIM #### [facility] [address] [place] [address] Dr. Kesha Aguero LYMPH # 2.6 103/ul Normal 1.2-3.8 [facility] Comment on above: Performed By: #### D DIM #### [facility] [address] [place] [address] Dr. Kesha Aguero Lymphocytes/100 WBC (Bld) 30.3 % Normal 20.5-60.0 [facility] Comment on above: Performed By: #### D DIM #### [facility] [address] [place] [address] Dr. Kesha Aguero MANUAL DIFF REQ NO Normal [facility] Comment on above: Performed By: #### D DIM #### [facility] [address] [place] [address] Dr. Kesha Aguero MCH (RBC) [Entitic mass] 25.6 pg Critically low 26.7-34.0 [facility] Comment on above: Performed By: #### D DIM #### [facility] [address] [place] [address] Dr. Kesha Aguero MCHC (RBC) [Mass/Vol] 30.7 g/dL Normal 29.9-35.2 [facility] Comment on above: Performed By: #### D DIM #### [facility] [address] [place] [address] Dr. Kesha Aguero MCV (RBC) [Entitic vol] 83.3 fL Normal 81.0-99.0 [facility] Comment on above: Performed By: #### D DIM #### [facility] [address] [place] [address] Dr. Kesha Aguero MONO # 0.6 103/ul Normal 0.3-0.8 [facility] Comment on above: Performed By: #### D DIM #### [facility] [address] [place] [address] Dr. Kesha Aguero Monocytes/100 WBC (Bld) 6.5 % Normal 1.7-12.0 [facility] Comment on above: Performed By: #### D DIM #### [facility] [address] [place] [address] Dr. Kesha Aguero NEUT # 5.1 103/ul Normal 1.4-6.5 [facility] Comment on above: Performed By: #### D DIM #### [facility] [address] [place] [address] Dr. Kesha Aguero Neutrophils/100 WBC (Bld) 61.1 % Normal 43.0-75.0 [facility] Comment on above: Performed By: #### D DIM #### [facility] [address] [place] [address] Dr. Kesha Aguero Platelet mean volume (Bld) [Entitic vol] 9.6 fL Normal 9.5-13.5 [facility] Comment on above: Performed By: #### D DIM #### [facility] [address] [place] [address] Dr. Kesha Aguero PLT 208 103/ul Normal 150-450 [facility] Comment on above: Performed By: #### D DIM #### [facility] [address] [place] [address] Dr. Kesha Aguero RBC 5.44 106/ul Critically high 4.20-5.40 [facility] Comment on above: Performed By: #### D DIM #### [facility] [address] [place] [address] Dr. Kesha Aguero WBC 8.4 103/ul Normal 4.0-11.0 [facility] Comment on above: Performed By: #### D DIM #### [facility] [address] [place] [address] Dr. Kesha Aguero CULTURE BLOODon 11-24-2022 Microscopic examination of blood, culture Culture Observations: NO GROWTH AT 5 DAYS. Isolate 1 BC_BA_NA Normal [facility] Comment on above: Performed By: #### B [id number] #### [facility] [address] [place] [address] Dr. Kesha Aguero Microscopic examination of blood, culture Culture Observations: NO GROWTH AT 5 DAYS. Isolate 1 BC_BA_NA Normal [facility] Comment on above: Performed By: #### C VDTBH #### [facility] [address] [place] [address] Dr. Kesha Aguero CULTURE URINEon 11-24-2022 CULTURE URINE Culture Observations : LIGHT GROWTH OF MIXED GENITAL SANTY. NO POTENTIAL PATHOGENS SEEN. Normal [facility] Comment on above: Performed By: #### C VDTBH #### [facility] [address] [place] [address] Dr. Kesha Aguero ER URINE PROFILEon 3 Bilirubin Ql (U) Negative Normal NEGATIVE [facility] Comment on above: Performed By: #### D DIM #### [facility] [address] [place] [address] Dr. Kesha Aguero Clarity (U) CLEAR Normal CLEAR [facility] Comment on above: Performed By: #### D DIM #### [facility] [address] [place] [address] Dr. Kesha Aguero Color (U) DK. YELLOW Normal YELLOW [facility] Comment on above: Performed By: #### D DIM #### [facility] [address] [place] [address] Dr. Kesha BRUNO A micrscopic examination will be performed if indicated. Normal [facility] Comment on above: Performed By: #### D DIM #### [facility] [address] [place] [address] Dr. Kesha Aguero Glucose Ql (U) >1000 Abnormal NEGATIVE [facility] Comment on above: Performed By: #### D DIM #### [facility] [address] [place] [address] Dr. Kesha Aguero Hemoglobin Ql (U) Negative Normal NEGATIVE [facility] Comment on above: Performed By: #### D DIM #### [facility] [address] [place] [address] Dr. Kesha Aguero Ketones Ql (U) Negative Normal NEGATIVE [facility] Comment on above: Performed By: #### D DIM #### [facility] [address] [place] [address] Dr. Kesha Aguero LEUKOCYTES Negative Normal NEGATIVE [facility] Comment on above: Performed By: #### D DIM #### [facility] [address] [place] [address] Dr. Kesha Aguero Nitrite Ql (U) Positive Abnormal NEGATIVE [facility] Comment on above: Performed By: #### D DIM #### [facility] [address] [place] [address] Dr. Kesha Aguero pH (U) 6.0 [pH] Normal 5-9 [facility] Comment on above: Performed By: #### D DIM #### [facility] [address] [place] [address] Dr. Kesha Aguero SPEC GRAVITY <=1.005 Abnormal 1.005-<=1.02 5 [facility] Comment on above: Performed By: #### D DIM #### [facility] [address] [place] [address] Dr. Kesha Aguero UA PROTEIN Negative Normal NEGATIVE/ TRACE [facility] Comment on above: Performed By: #### D DIM #### [facility] [address] [place] [address] Dr. Kesha Aguero UR MICRO IND INDICATED Normal [facility] Comment on above: Performed By: #### D DIM #### [facility] [address] [place] [address] Dr. Kesha Aguero Urobilinogen Qn (U) 0.2 {Allison'U}/dL Normal 0.2 - 1. 0 [facility] Comment on above: Performed By: #### D DIM #### [facility] [address] [place] [address] Dr. Kesha Aguero LACTATE/LACTIC ACIDon 2022 Lactate [Moles/Vol] 1.0 mmol/L Normal 0.4-2.0 [facility] Comment on above: Performed By: #### C VDTBH #### [facility] [address] [place] [address] Dr. Kesha Aguero PROF 14(COMP METB)on 023 Albumin [Mass/Vol] 3.8 g/dL Normal 3.4-5.0 [facility] Comment on above: Performed By: #### C VDTBH #### [facility] [address] [place] [address] Dr. Kesha Aguero Albumin/Globulin [Mass ratio] 1.1 {ratio} Normal [facility] Comment on above: Performed By: #### C VDTBH #### [facility] [address] [address] [address] Kesha Aguero ALP [Catalytic activity/Vol] 118 U/L Critically high 46-116 [facility] Comment on above: Performed By: #### C VDTBH #### [facility] [address] [place] [address] Dr. Kesha Aguero ALT [Catalytic activity/Vol] 41 U/L Normal 14-59 [facility] Comment on above: Performed By: #### C VDTBH #### [facility] [address] [place] [address] Dr. Kesha Aguero Anion gap [Moles/Vol] 14.3 mmol/L Normal [facility] Comment on above: Performed By: #### C VDTBH #### [facility] [address] [place] [address] Dr. Kesha Aguero AST [Catalytic activity/Vol] 23 U/L Normal 15-37 [facility] Comment on above: Performed By: #### C VDTBH #### [facility] [address] [place] [address] Dr. Kesha Aguero Bilirubin [Mass/Vol] 0.5 mg/dL Normal 0.2-1.0 [facility] Comment on above: Performed By: #### C VDTBH #### [facility] [address] [place] [address] Dr. Kesha Aguero Calcium [Mass/Vol] 9.3 mg/dL Normal 8.5-10.1 [facility] Comment on above: Performed By: #### C VDTBH #### [facility] [address] [place] [address] Dr. Kesha Aguero Chloride [Moles/Vol] 106 mmol/L Normal 98-107 [facility] Comment on above: Performed By: #### C VDTBH #### [facility] [address] [place] [address] Dr. Kesha Aguero CO2 [Moles/Vol] 26.4 mmol/L Normal 21.0-32.0 [facility] Comment on above: Performed By: #### C VDTBH #### [facility] [address] [place] [address] Dr. Kesha Aguero Creatinine [Mass/Vol] 0.92 mg/dL Normal 0.55-1.02 [facility] Comment on above: Performed By: #### C VDTBH #### [facility] [address] [place] [address] Dr. Kesha Aguero EGFR-AF CYMRO >60 Normal >=60 [facility] Comment on above: Performed By: #### C VDTBH #### [facility] [address] [place] [address] Dr. Kesha Aguero EGFR-NON AF CYMRO 58 mL/min/1.73m2 Critically low >=60 [facility] Comment on above: Performed By: #### C VDTBH #### [facility] [address] [place] [address] Dr. Kesha Aguero Globulin (S) [Mass/Vol] 3.5 g/dL Normal [facility] Comment on above: Performed By: #### C VDTBH #### [facility] [address] [place] [address] Dr. Kesha Aguero Glucose [Mass/Vol] 184 mg/dL Critically high 74-106 [facility] Comment on above: Performed By: #### C VDTBH #### [facility] [address] [place] [address] Dr. Kesha Aguero Potassium [Moles/Vol] 4.7 mmol/L Normal 3.5-5.1 [facility] Comment on above: Performed By: #### C VDTBH #### [facility] [address] [place] [address] Dr. Kesha Aguero Protein [Mass/Vol] 7.3 g/dL Normal 6.4-8.2 [facility] Comment on above: Performed By: #### C VDTBH #### [facility] [address] [place] [address] Dr. Kesha Aguero Sodium [Moles/Vol] 142 mmol/L Normal 136-145 [facility] Comment on above: Performed By: #### C VDTBH #### [facility] [address] [place] [address] Dr. Kesha Aguero Urea nitrogen [Mass/Vol] 18.0 mg/dL Normal 7.0-18.0 [facility] Comment on above: Performed By: #### C VDTBH #### [facility] [address] [place] [address] Dr. Kesha Aguero Urea nitrogen/Creatinine [Mass ratio] 19.6 mg/mg Normal [facility] Comment on above: Performed By: #### C VDTBH #### [facility] [address] [place] [address] Dr. Kesha Aguero TROPONIN, HIGH SENSITIVITYon 11-24-2022 HSTROP 9.2 pg/mL Normal 4.0-51.3 [facility] Comment on above: Result Comment: CUT- OFF POINTS HAVE BEEN ESTABLISHED BASED ON THE FOURTH UNIVERSAL DEFINITIONS OF MYOCARDIAL INFARCTION. THE UPPER REFERENCE LIMIT (URL) OF TROPONIN, DEFINED THE 99TH PERCENTILE OF cTnI DISTRIBUTION IN A REFERENCE POPULATION, HAS BEEN CONFIRMED THE DECISION THRESHOLD FOR LA DIAGNOSIS. Performed By: #### A CETON #### [facility] [address] [place] [address] Dr. Kesha Aguero HSTROP 9.5 pg/mL Normal 4.0-51.3 [facility] Comment on above: Result Comment: CUT- OFF POINTS HAVE BEEN ESTABLISHED BASED ON THE FOURTH UNIVERSAL DEFINITIONS OF MYOCARDIAL INFARCTION. THE UPPER REFERENCE LIMIT (URL) OF TROPONIN, DEFINED THE 99TH PERCENTILE OF cTnI DISTRIBUTION IN A REFERENCE POPULATION, HAS BEEN CONFIRMED THE DECISION THRESHOLD FOR LA DIAGNOSIS. Performed By: #### C VDTBH #### [facility] [address] [place] [address] Dr. Kesha Aguero URINE MICROSCOPIC ONLYon BACTERIA TRACE Abnormal NONE SEEN [facility] Comment on above: Performed By: #### C VDTBH #### [facility] [address] [place] [address] Dr. Kesha Aguero Bacteria identified Cx Nom (U) INDICATED Normal [facility] Comment on above: Performed By: #### C VDTBH #### [facility] [address] [place] [address] Dr. Kesha Aguero CAST NONE SEEN Normal NONE SEEN [facility] Comment on above: Performed By: #### C VDTBH #### [facility] [address] [place] [address] Dr. Kesha Aguero Crystals LM Nom (Urine sed) NONE SEEN Normal NONE SEEN [facility] Comment on above: Performed By: #### C VDTBH #### [facility] [address] [place] [address] Dr. Kesha Aguero Epithelial cells LM Ql (Urine sed) FEW Abnormal NONE SEEN /RARE [facility] Comment on above: Performed By: #### C VDTBH #### [facility] [address] [place] [address] Dr. Kesha Aguero MUCOUS NONE SEEN Normal NONE SEEN [facility] Comment on above: Performed By: #### C VDTBH #### [facility] [address] [place] [address] Dr. Kesha Aguero RBC 0-2 Normal 0-2 [facility] Comment on above: Performed By: #### C VDTBH #### [facility] [address] [place] [address] Dr. Kesha Aguero WBC 2-5 Abnormal NONE SEEN [facility] Comment on above: Performed By: #### C VDTBH #### [facility] [address] [place] [address] Dr. Kesha Aguero XR DEXA BONE DENSITYon [...] High Fracture Risk Electronically authenticated by: LOUIS DIEGO Date: 2022-09-29 12:45 Normal [facility] CT HEAD WO CONon 08-29-2022 CT [...] by: EDWIGE ZAVALETA Date: 2022-08-29 14:04 Normal [facility] POINT OF CARE GLUCOSEon 08-02 Glucose [Mass/Vol] 279 mg/dL Critically high 74-106 [facility] Comment on above: Performed By: #### C VDTBH #### [facility] [address] [place] [address] Dr. Kesha Aguero Glucose [Mass/Vol] 65 mg/dL Critically low 74-106 [facility] Comment on above: Performed By: #### C VDTBH #### [facility] [address] [place] [address] Dr. Kesha Aguero BNPon 08-28-2022 Natriuretic peptide B (Bld) [Mass/Vol] 673.0 pg/mL Normal <=1,800.0 [facility] Comment on above: Performed By: #### C VDTBH #### [facility] [address] [place] [address] Dr. Kesha Aguero CARDIAC KARLIE ADMITon 022 CK [Catalytic activity/Vol] 33 U/L Normal 26-192 [facility] Comment on above: Performed By: #### C VDTBH #### [facility] [address] [place] [address] Dr. Kesha Aguero CK.MB [Mass/Vol] 0.58 ng/mL Normal <=3.60 [facility] Comment on above: Performed By: #### C VDTBH #### [facility] [address] [place] [address] Dr. Kesha Aguero HSTROP 11.2 pg/mL Normal 4.0-51.3 [facility] Comment on above: Result Comment: CUT- OFF POINTS HAVE BEEN ESTABLISHED BASED ON THE FOURTH UNIVERSAL DEFINITIONS OF MYOCARDIAL INFARCTION. THE UPPER REFERENCE LIMIT (URL) OF TROPONIN, DEFINED THE 99TH PERCENTILE OF cTnI DISTRIBUTION IN A REFERENCE POPULATION, HAS BEEN CONFIRMED THE DECISION THRESHOLD FOR LA DIAGNOSIS. Performed By: #### C VDTBH #### [facility] [address] [place] [address] Dr. Kesha Aguero ELIAS 48 ng/mL Normal 9-82 [facility] Comment on above: Performed By: #### C VDTBH #### [facility] [address] [place] [address] Dr. Kesha Aguero CBC AUTO DIFFon 08-28-2022 BASO # 0.1 103/ul Normal 0.0-0.1 [facility] Comment on above: Performed By: #### C VDTBH #### [facility] [address] [place] [address] Dr. Kesha Aguero Basophils/100 WBC (Bld) 0.6 % Normal 0.2-2.0 [facility] Comment on above: Performed By: #### C VDTBH #### [facility] [address] [place] [address] Dr. Kesha Aguero EO # 0.2 103/ul Normal 0.0-0.7 [facility] Comment on above: Performed By: #### C VDTBH #### [facility] [address] [place] [address] Dr. Kesha Aguero Eosinophils/100 WBC (Bld) 2.3 % Normal 0.9-7.0 [facility] Comment on above: Performed By: #### C VDTBH #### [facility] [address] [place] [address] Dr. Kesha Aguero Erythrocyte distribution width (RBC) [Ratio] 15.7 % Critically high 11.0-15.0 [facility] Comment on above: Performed By: #### C VDTBH #### [facility] [address] [place] [address] Dr. Kesha Aguero Hematocrit (Bld) [Volume fraction] 44.6 % Normal 36.0-48.0 [facility] Comment on above: Performed By: #### C VDTBH #### [facility] [address] [place] [address] Dr. Kesha Aguero Hemoglobin (Bld) [Mass/Vol] 14.4 g/dL Normal 12.0-16.0 [facility] Comment on above: Performed By: #### C VDTBH #### [facility] [address] [address] [address] Kesha Aguero IG # 0.02 10e3/ul Normal 0.00-0.03 [facility] Comment on above: Performed By: #### C VDTBH #### [facility] [address] [address] [address] Kesha Aguero IG % 0.3 % Normal 0.0-0.5 [facility] Comment on above: Performed By: #### C VDTBH #### [facility] [address] [address] [address] Kesha Aguero LYMPH # 3.5 103/ul Normal 1.2-3.8 [facility] Comment on above: Performed By: #### C VDTBH #### [facility] [address] [place] [address] Dr. Kesha Aguero Lymphocytes/100 WBC (Bld) 43.6 % Normal 20.5-60.0 [facility] Comment on above: Performed By: #### C VDTBH #### [facility] [address] [address] [address] Kesha Aguero MANUAL DIFF REQ NO Normal [facility] Comment on above: Performed By: #### C VDTBH #### [facility] [address] [place] [address] Dr. Kesha Aguero MCH (RBC) [Entitic mass] 25.9 pg Critically low 26.7-34.0 [facility] Comment on above: Performed By: #### C VDTBH #### [facility] [address] [address] [address] Kesha Aguero MCHC (RBC) [Mass/Vol] 32.3 g/dL Normal 29.9-35.2 [facility] Comment on above: Performed By: #### C VDTBH #### [facility] [address] [place] [address] Dr. Kesha Aguero MCV (RBC) [Entitic vol] 80.4 fL Critically low 81.0-99. 0 [facility] Comment on above: Performed By: #### C VDTBH #### [facility] [address] [place] [address] Dr. Kesha Aguero MONO # 0.5 103/ul Normal 0.3-0.8 [facility] Comment on above: Performed By: #### C VDTBH #### [facility] [address] [place] [address] Dr. Kesha Aguero Monocytes/100 WBC (Bld) 6.0 % Normal 1.7-12.0 [facility] Comment on above: Performed By: #### C VDTBH #### [facility] [address] [place] [address] Dr. Kesha Aguero NEUT # 3.8 103/ul Normal 1.4-6.5 [facility] Comment on above: Performed By: #### C VDTBH #### [facility] [address] [place] [address] Dr. Kesha Aguero Neutrophils/100 WBC (Bld) 47.2 % Normal 43.0-75.0 [facility] Comment on above: Performed By: #### C VDTBH #### [facility] [address] [place] [address] Dr. Kesha Aguero Platelet mean volume (Bld) [Entitic vol] 9.7 fL Normal 9.5-13.5 [facility] Comment on above: Performed By: #### C VDTBH #### [facility] [address] [place] [address] Dr. Kesha Aguero PLT 269 103/ul Normal 150-450 [facility] Comment on above: Performed By: #### C VDTBH #### [facility] [address] [place] [address] Dr. Kesha Aguero RBC 5.55 106/ul Critically high 4.20-5.40 [facility] Comment on above: Performed By: #### C VDTBH #### [facility] [address] [place] [address] Dr. Kesha Aguero WBC 8.0 103/ul Normal 4.0-11.0 [facility] Comment on above: Performed By: #### C VDTBH #### [facility] [address] [place] [address] Dr. Kesha Aguero [facility]01 SARS-CoV-2 (COVID-19) RNA YARA+probe Ql (Unsp spec) Not detected Normal NOT DETECTED [facility] Comment on above: Result Comment: When diagnostic [...] for this test is supported by the [place] of [employer] and [employer] Service's declaration that [...] used). Performed By: #### C VDTBH #### [facility] [address] [place] [address] Dr. Kesha Aguero POINT OF CARE GLUCOSEon 08-01 Glucose [Mass/Vol] 157 mg/dL Critically high 74-106 [facility] Comment on above: Performed By: #### D DIM #### [facility] [address] [place] [address] Dr. Kesha Aguero Glucose [Mass/Vol] 170 mg/dL Critically high 74-106 [facility] Comment on above: Performed By: #### C VDTBH #### [facility] [address] [place] [address] Dr. Kesha Aguero PROF CHEM 8 (BAS METB)on Anion gap [Moles/Vol] 14.2 mmol/L Normal [facility] Comment on above: Performed By: #### C VDTBH #### [facility] [address] [place] [address] Dr. Kesha Aguero Calcium [Mass/Vol] 9.8 mg/dL Normal 8.5-10.1 [facility] Comment on above: Performed By: #### C VDTBH #### [facility] [address] [address] [address] Kesha Aguero Chloride [Moles/Vol] 104 mmol/L Normal 98-107 [facility] Comment on above: Performed By: #### C VDTBH #### [facility] [address] [address] [address] Kesha Aguero CO2 [Moles/Vol] 25.6 mmol/L Normal 21.0-32.0 [facility] Comment on above: Performed By: #### C VDTBH #### [facility] [address] [place] [address] Dr. Kesha Aguero Creatinine [Mass/Vol] 1.00 mg/dL Normal 0.55-1.02 [facility] Comment on above: Performed By: #### C VDTBH #### [facility] [address] [place] [address] Dr. Kesha Aguero EGFR-AF CYMRO >60 Normal >=60 [facility] Comment on above: Performed By: #### C VDTBH #### [facility] [address] [place] [address] Dr. Kesha Aguero EGFR-NON AF CYMRO 53 mL/min/1.73m2 Critically low >=60 [facility] Comment on above: Performed By: #### C VDTBH #### [facility] [address] [place] [address] Dr. Kesha Aguero Glucose [Mass/Vol] 151 mg/dL Critically high 74-106 [facility] Comment on above: Performed By: #### C VDTBH #### [facility] [address] [address] [address] Kesha Aguero Potassium [Moles/Vol] 3.8 mmol/L Normal 3.5-5.1 [facility] Comment on above: Performed By: #### C VDTBH #### [facility] [address] [place] [address] Dr. Kesha Aguero Sodium [Moles/Vol] 140 mmol/L Normal 136-145 [facility] Comment on above: Performed By: #### C VDTBH #### [facility] [address] [place] [address] Dr. Kesha Aguero Urea nitrogen [Mass/Vol] 19.0 mg/dL Critically high 7.0-18.0 [facility] Comment on above: Performed By: #### C VDTBH #### [facility] [address] [place] [address] Dr. Kesha Aguero Urea nitrogen/Creatinine [Mass ratio] 19.0 mg/mg Normal [facility] Comment on above: Performed By: #### C VDTBH #### [facility] [address] [place] [address] Dr. Kesha Aguero PROTIMEon 08-28-2022 INR Coag (PPP) [Relative time] 0.97 {INR} Normal [facility] Comment on above: Performed By: #### C VDTBH #### [facility] [address] [place] [address] Dr. Kesha Aguero INR GUIDELINES SEE BELOW Normal [facility] Comment on above: Result Comment: GUY RED INR: 2.0 - 3.0 CONDITIONS NOT LISTED BELOW 2.5 - 3.5 FOR PROSTHETIC HEART VALVE REPLACEMENT 2.5 - 3.5 RECURRENT THROMBOSIS Performed By: #### C VDTBH #### [facility] [address] [place] [address] Dr. Kesha Aguero PT Coag (PPP) [Time] 10.5 s Normal 9.0-11.6 [facility] Comment on above: Performed By: #### C VDTBH #### [facility] [address] [place] [address] Dr. Kesha Aguero PTTon 08-28-2022 aPTT Coag (Bld) [Time] 27.1 s Normal 22.3-36.2 [facility] Comment on above: Performed By: #### C VDTBH #### [facility] [address] [place] [address] Dr. Kesha Aguero TROPONIN, HIGH SENSITIVITYon 08-28-2022 HSTROP 14.8 pg/mL Normal 4.0-51.3 [facility] Comment on above: Result Comment: CUT- OFF POINTS HAVE BEEN ESTABLISHED BASED ON THE FOURTH UNIVERSAL DEFINITIONS OF MYOCARDIAL INFARCTION. THE UPPER REFERENCE LIMIT (URL) OF TROPONIN, DEFINED THE 99TH PERCENTILE OF cTnI DISTRIBUTION IN A REFERENCE POPULATION, HAS BEEN CONFIRMED THE DECISION THRESHOLD FOR LA DIAGNOSIS. Performed By: #### C VDTB #### [facility] [address] [place] [address] Dr. Kesha Aguero HSTROP 13.5 pg/mL Normal 4.0-51.3 [facility] Comment on above: Result Comment: CUT- OFF POINTS HAVE BEEN ESTABLISHED BASED ON THE FOURTH UNIVERSAL DEFINITIONS OF MYOCARDIAL INFARCTION. THE UPPER REFERENCE LIMIT (URL) OF TROPONIN, DEFINED THE 99TH PERCENTILE OF cTnI DISTRIBUTION IN A REFERENCE POPULATION, HAS BEEN CONFIRMED THE DECISION THRESHOLD FOR LA DIAGNOSIS. Performed By: #### D [facility] #### [facility] [address] [place] [address] Dr. Kesha Aguero US JCARLOS DOP LEG [...] the legs *Exam performed in accordance with [facility] practice guidelines- Peripheral venous ultrasound, November 24, 2009. Electronically authenticated by: CARMEN LOTT Date: 2022-08-28 13:22 Normal [facility] XR CHEST 1 Von 08-28-2022 XR CHEST 1 V EXAM: CHEST 1 VIEW HISTORY: CHEST PAIN, UNSPECIFIED TECHNIQUE: Chest, one view. COMPARISON: 06/06/2022. FINDINGS: Lungs are clear. No focal consolidation, pleural effusion, or pneumothorax. Pulmonary vasculature is within normal limits. Cardiomediastinal silhouette is normal. IMPRESSION: 1. No acute cardiopulmonary disease. Electronically authenticated by: JEAN-CLAUDE OLEARY Date: 2022-08-28 08:34 Normal [facility] CT ABDOMEN WO/W CONon 2021 CT ABDOMEN [...] a benign adenoma. Electronically authenticated by: LOUIS DIEGO Date: 2022-08-18 22:44 Normal [facility] CREATININEon 08-18-2022 Creatinine [Mass/Vol] 1.04 mg/dL Critically high 0.55-1.02 [facility] Comment on above: Performed By: #### C VDTB #### [facility] [address] [address] [address] Kesha Aguero EGFR-AF CYMRO >60 Normal >=60 [facility] Comment on above: Performed By: #### C VDTBH #### [facility] [address] [address] [address] Kesha Aguero EGFR-NON AF CYMRO 51 mL/min/1.73m2 Critically low >=60 [facility] Comment on above: Performed By: #### C VDTB #### [facility] [address] [address] [address] Kesha Aguero ECHOCARDIO M/2D COMPLETEon 1 10-19-2021 ECHOCARDIO M/2D COMPLETE Patient: TERE HARTMANN Exam Date: 08/18/2022 : 1940 Gender:F Ordering : ABBIE ChristopherJeffrey ANDRESSA Admission #: [id number] Family : DR RODRICK BUTLER M.D. Order #: [id number] CLICK HERE TO VIEW EXAM ECHOCARDIOGRAM REPORT [...] 2.46 cm Aortic Valve AoV Area (Peak [place]in): 1.52 cm2, 1.52 cm2 AoV Area (VTI): [...] Jackson M.D. on 08/21/2022 at 15:17 Normal [facility] ALDOSTERONE: RENIN RATIOon 1 - Aldos/Renin Ratio 2.5 Normal 0.0-30.0 [facility] Comment on above: Result Comment: Unit s: ng/dL per ng/mL/hr Performed By: #### A LDOREN #### [facility] [address] [place] [address] Dr. Kesha Aguero Aldosterone 7.4 ng/dL Normal 0.0-30.0 [facility] Comment on above: Performed By: #### A LDOREN #### [facility] [address] [place] [address] Dr. Kesha Aguero Renin Activity, Plasma 3.015 ng/mL/hr Normal 0.167-5.3 80 [facility] Comment on above: Performed By: #### A LDOREN #### [facility] [address] [place] [address] Dr. Kesha Aguero METANEPHRINES PLASMA FREEon 06-18-2022 Metanephrine, Pl 11.8 pg/mL Normal 0.0-88.0 [facility] Comment on above: Performed By: #### A CETON #### [facility] [address] [place] [address] Dr. Kesha Aguero Normetanephrine, Pl 103.3 pg/mL Normal 0.0-297.2 [facility] Comment on above: Performed By: #### A CETON #### [facility] [address] [place] [address] Dr. Kesha Aguero CORTISOLon 06-12-2022 Cortisol 5.5 ug/dL Normal [facility] Comment on above: Result Comment: Clement isol AM 6.2 - 19.4 Cortisol PM 2.3 - 11.9 Performed By: #### C VDTBH #### [facility] [address] [place] [address] Dr. Kesha Aguero PROF CHEM 8 (BAS METB)on Anion gap [Moles/Vol] 14.4 mmol/L Normal [facility] Comment on above: Performed By: #### A LDOREN #### [facility] [address] [place] [address] Dr. Kesha Aguero Calcium [Mass/Vol] 9.6 mg/dL Normal 8.5-10.1 [facility] Comment on above: Performed By: #### A LDOREN #### [facility] [address] [place] [address] Dr. Kesha Aguero Chloride [Moles/Vol] 103 mmol/L Normal 98-107 [facility] Comment on above: Performed By: #### A LDOREN #### [facility] [address] [address] [address] Kesha Aguero CO2 [Moles/Vol] 24.3 mmol/L Normal 21.0-32.0 [facility] Comment on above: Performed By: #### A LDOREN #### [facility] [address] [address] [address] Kesha Aguero Creatinine [Mass/Vol] 1.24 mg/dL Critically high 0.55-1.02 [facility] Comment on above: Performed By: #### A LDOREN #### [facility] [address] [place] [address] Dr. Kesha Aguero EGFR-AF CYMRO 50 mL/min/1.73m2 Critically low >=60 [facility] Comment on above: Performed By: #### A LDOREN #### [facility] [address] [place] [address] Dr. Kesha Aguero EGFR-NON AF CYMRO 41 mL/min/1.73m2 Critically low >=60 [facility] Comment on above: Performed By: #### A LDOREN #### [facility] [address] [place] [address] Dr. Kesha Aguero Glucose [Mass/Vol] 215 mg/dL Critically high 74-106 [facility] Comment on above: Performed By: #### A LDOREN #### [facility] [address] [place] [address] Dr. Kesha Aguero Potassium [Moles/Vol] 4.7 mmol/L Normal 3.5-5.1 [facility] Comment on above: Performed By: #### A LDOREN #### [facility] [address] [place] [address] Dr. Kesha Aguero Sodium [Moles/Vol] 137 mmol/L Normal 136-145 [facility] Comment on above: Performed By: #### A LDOREN #### [facility] [address] [place] [address] Dr. Kesha Aguero Urea nitrogen [Mass/Vol] 21.0 mg/dL Critically high 7.0-18.0 [facility] Comment on above: Performed By: #### A LDOREN #### [facility] [address] [place] [address] Dr. Kesha Aguero Urea nitrogen/Creatinine [Mass ratio] 16.9 mg/mg Normal [facility] Comment on above: Performed By: #### A LDOREN #### [facility] [address] [place] [address] Dr. Kesha Aguero CARDIAC KARLIE 3-6on 2 CK [Catalytic activity/Vol] 77 U/L Normal 26-192 [facility] Comment on above: Performed By: #### D DIM #### [facility] [address] [place] [address] Dr. Kesha Aguero CK.MB [Mass/Vol] 1.64 ng/mL Normal <=3.60 [facility] Comment on above: Performed By: #### D DIM #### [facility] [address] [place] [address] Dr. Kesha Aguero HSTROP 16.0 pg/mL Normal 4.0-51.3 [facility] Comment on above: Result Comment: CUT- OFF POINTS HAVE BEEN ESTABLISHED BASED ON THE FOURTH UNIVERSAL DEFINITIONS OF MYOCARDIAL INFARCTION. THE UPPER REFERENCE LIMIT (URL) OF TROPONIN, DEFINED THE 99TH PERCENTILE OF cTnI DISTRIBUTION IN A REFERENCE POPULATION, HAS BEEN CONFIRMED THE DECISION THRESHOLD FOR LA DIAGNOSIS. Performed By: #### D DIM #### [facility] [address] [place] [address] Dr. Kesha Aguero CARDIAC KARLIE ADMITon 022 CK [Catalytic activity/Vol] 86 U/L Normal 26-192 [facility] Comment on above: Performed By: #### A CETON #### [facility] [address] [place] [address] Dr. Kesha Aguero CK.MB [Mass/Vol] 2.10 ng/mL Normal <=3.60 [facility] Comment on above: Performed By: #### A CETON #### [facility] [address] [place] [address] Dr. Kesha Aguero HSTROP 13.3 pg/mL Normal 4.0-51.3 [facility] Comment on above: Result Comment: CUT- OFF POINTS HAVE BEEN ESTABLISHED BASED ON THE FOURTH UNIVERSAL DEFINITIONS OF MYOCARDIAL INFARCTION. THE UPPER REFERENCE LIMIT (URL) OF TROPONIN, DEFINED THE 99TH PERCENTILE OF cTnI DISTRIBUTION IN A REFERENCE POPULATION, HAS BEEN CONFIRMED THE DECISION THRESHOLD FOR LA DIAGNOSIS. Performed By: #### A CETON #### [facility] [address] [place] [address] Dr. Kesha Aguero ELIAS 78 ng/mL Normal 9-82 [facility] Comment on above: Performed By: #### A CETON #### [facility] [address] [place] [address] Dr. Kesha Aguero CBC AUTO DIFFon 06-06-2022 BASO # 0.0 103/ul Normal 0.0-0.1 [facility] Comment on above: Performed By: #### C VDTBH #### [facility] [address] [place] [address] Dr. Kesha Aguero Basophils/100 WBC (Bld) 0.4 % Normal 0.2-2.0 [facility] Comment on above: Performed By: #### C VDTBH #### [facility] [address] [place] [address] Dr. Kesha Aguero EO # 0.1 103/ul Normal 0.0-0.7 [facility] Comment on above: Performed By: #### C VDTBH #### [facility] [address] [place] [address] Dr. Kesha Aguero Eosinophils/100 WBC (Bld) 1.8 % Normal 0.9-7.0 [facility] Comment on above: Performed By: #### C VDTBH #### [facility] [address] [place] [address] Dr. Kesha Aguero Erythrocyte distribution width (RBC) [Ratio] 13.9 % Normal 11.0-15.0 [facility] Comment on above: Performed By: #### C VDTBH #### [facility] [address] [place] [address] Dr. Kesha Aguero Hematocrit (Bld) [Volume fraction] 40.7 % Normal 36.0-48.0 [facility] Comment on above: Performed By: #### C VDTBH #### [facility] [address] [place] [address] Dr. Kesha Aguero Hemoglobin (Bld) [Mass/Vol] 12.9 g/dL Normal 12.0-16.0 [facility] Comment on above: Performed By: #### C VDTBH #### [facility] [address] [place] [address] Dr. Kesha Aguero IG # 0.01 10e3/ul Normal 0.00-0.03 [facility] Comment on above: Performed By: #### C VDTBH #### [facility] [address] [place] [address] Dr. Kesha Aguero IG % 0.1 % Normal 0.0-0.5 [facility] Comment on above: Performed By: #### C VDTBH #### [facility] [address] [place] [address] Dr. Kesha Aguero LYMPH # 2.6 103/ul Normal 1.2-3.8 [facility] Comment on above: Performed By: #### C VDTBH #### [facility] [address] [place] [address] Dr. Kesha Aguero Lymphocytes/100 WBC (Bld) 33.6 % Normal 20.5-60.0 [facility] Comment on above: Performed By: #### C VDTBH #### [facility] [address] [place] [address] Dr. Kesha Aguero MANUAL DIFF REQ NO Normal [facility] Comment on above: Performed By: #### C VDTBH #### [facility] [address] [place] [address] Dr. Kesha Aguero MCH (RBC) [Entitic mass] 26.5 pg Critically low 26.7-34.0 [facility] Comment on above: Performed By: #### C VDTBH #### [facility] [address] [place] [address] Dr. Kesha Aguero MCHC (RBC) [Mass/Vol] 31.7 g/dL Normal 29.9-35.2 [facility] Comment on above: Performed By: #### C VDTBH #### [facility] [address] [place] [address] Dr. Kesha Aguero MCV (RBC) [Entitic vol] 83.6 fL Normal 81.0-99.0 [facility] Comment on above: Performed By: #### C VDTBH #### [facility] [address] [place] [address] Dr. Kesha Aguero MONO # 0.6 103/ul Normal 0.3-0.8 [facility] Comment on above: Performed By: #### C VDTBH #### [facility] [address] [place] [address] Dr. Kesha Aguero Monocytes/100 WBC (Bld) 7.7 % Normal 1.7-12.0 [facility] Comment on above: Performed By: #### C VDTBH #### [facility] [address] [place] [address] Dr. Kesha Aguero NEUT # 4.3 103/ul Normal 1.4-6.5 [facility] Comment on above: Performed By: #### C VDTBH #### [facility] [address] [place] [address] Dr. Kesha Aguero Neutrophils/100 WBC (Bld) 56.4 % Normal 43.0-75.0 [facility] Comment on above: Performed By: #### C VDTBH #### [facility] [address] [place] [address] Dr. Kesha Aguero Platelet mean volume (Bld) [Entitic vol] 11.2 fL Normal 9.5-13.5 [facility] Comment on above: Performed By: #### C VDTBH #### [facility] [address] [place] [address] Dr. Kesha Aguero PLT 267 103/ul Normal 150-450 [facility] Comment on above: Performed By: #### C VDTBH #### [facility] [address] [place], [place] [address] Dr. Kesha Aguero RBC 4.87 106/ul Normal 4.20-5.40 [facility] Comment on above: Performed By: #### C VDTBH #### [facility] [address] [place], [place] [address] Dr. Kesha Aguero WBC 7.7 103/ul Normal 4.0-11.0 [facility] Comment on above: Performed By: #### C VDTBH #### [facility] [address] [place], [place] [address] Dr[address] Kesha Aguero CTA CHEST WO W [...] CHRISTINA MESSINA Date: 2022-06-06 03:54 Normal [facility] Covid-19 PCR (CVDTBH)on SARS-CoV-2 (COVID-19) RNA YARA+probe Ql (Unsp spec) Not detected Normal NOT DETECTED [facility] Comment on above: Result Comment: When diagnostic [...] for this test is supported by the [employer] Officer of Health and Human Service's declaration that [...] used). Performed By: #### C VDTBH #### [facility] [address] [place] [address] Dr. Kesha Aguero D-DIMERon 06-06-2022 D-DIMER 0.86 mg/L FEU Critically high <=0.59 [facility] Comment on above: Performed By: #### D DIM #### [facility] [address] [place] [address] [id number] [address] Kesha Aguero D-DIMER COMMENTS SEE BELOW Normal [facility] Comment on above: Result Comment: Incr eases [...] hospitalization. Performed By: #### D DIM #### [facility] [address] [address] [address] Kesha Aguero PROF CHEM 8 (BAS METB)on Anion gap [Moles/Vol] 13.1 mmol/L Normal [facility] Comment on above: Performed By: #### A CETON #### [facility] [address] [address] [address] Kesha Aguero Calcium [Mass/Vol] 10.0 mg/dL Normal 8.5-10.1 [facility] Comment on above: Performed By: #### A CETON #### [facility] [address] [address] [address] Kesha Aguero Chloride [Moles/Vol] 106 mmol/L Normal 98-107 [facility] Comment on above: Performed By: #### A CETON #### [facility] [address] [address] [address] Kesha Aguero CO2 [Moles/Vol] 24.9 mmol/L Normal 21.0-32.0 [facility] Comment on above: Performed By: #### A CETON #### [facility] [address] [address] [address] Kesha Aguero Creatinine [Mass/Vol] 1.14 mg/dL Critically high 0.55-1.02 [facility] Comment on above: Performed By: #### A CETON #### [facility] [address] [address] [address] Kesha Aguero EGFR-AF CYMRO 55 mL/min/1.73m2 Critically low >=60 [facility] Comment on above: Performed By: #### A CETON #### [facility] [address] [address] [address] Kesha Aguero EGFR-NON AF CYMRO 46 mL/min/1.73m2 Critically low >=60 [facility] Comment on above: Performed By: #### A CETON #### [facility] [address] [address] [address] Kesha Aguero Glucose [Mass/Vol] 181 mg/dL Critically high 74-106 [facility] Comment on above: Performed By: #### A CETON #### [facility] [address] [address] [address] Kesha Aguero Potassium [Moles/Vol] 4.0 mmol/L Normal 3.5-5.1 [facility] Comment on above: Performed By: #### A CETON #### [facility] [address] [address] [address] Kesha Aguero Sodium [Moles/Vol] 140 mmol/L Normal 136-145 [facility] Comment on above: Performed By: #### A CETON #### [facility] [address] [address] [address] Kesha Aguero Urea nitrogen [Mass/Vol] 24.0 mg/dL Critically high 7.0-18.0 [facility] Comment on above: Performed By: #### A CETON #### [facility] [address] [address] [address] Kesha Aguero Urea nitrogen/Creatinine [Mass ratio] 21.1 mg/mg Normal [facility] Comment on above: Performed By: #### A CETON #### [facility] [address] [address] [address] Kesha Aguero TROPONIN, HIGH SENSITIVITYon 06-06-2022 HSTROP 16.7 pg/mL Normal 4.0-51.3 [facility] Comment on above: Result Comment: CUT- OFF POINTS HAVE BEEN ESTABLISHED BASED ON THE FOURTH UNIVERSAL DEFINITIONS OF MYOCARDIAL INFARCTION. THE UPPER REFERENCE LIMIT (URL) OF TROPONIN, DEFINED THE 99TH PERCENTILE OF cTnI DISTRIBUTION IN A REFERENCE POPULATION, HAS BEEN CONFIRMED THE DECISION THRESHOLD FOR LA DIAGNOSIS. Performed By: #### A LDOREN #### [facility] [address] [address] [address] Kesha Aguero XR CHEST 1 Von [...] by: CHRISTINA MESSINA Date: 2022-06-06 02:23 Normal [facility] Activated partial thrombopla stin time (aPTT) in platelet poor plasma by coagulation aOrdered By: Herminia Lawler on 05-11-2022 aPTT Coag (PPP) [Time] 43.7 s 25.1-36.5 [facility] Creatinine and Glomerular fi ltration rate.predicted panel (S/P/Bld)Ordered By: Herminia Lawler on 05-11-2022 Creatinine [Mass/Vol] 0.97 mg/dL 0.44-1.03 [facility] Estimated glomerular filtrat ion rate (GFR) non- AmericanOrdered By: Herminia Lawler on 05-11-2022 GFR/1.73 sq M.predicted among non-blacks MDRD (S/P/Bld) [Vol rate/Area] 55 mL/Min [facility] [place] Glucose Glucometer (BldC) [M ass/Vol]Ordered By: Herminia Lawler on 05-11-2022 Glucose [Mass/Vol] 281 mg/dL [facility] Comment on above: Random Glucose Refer ence Range is dependent on time and content of last meal. Glucose of more than 200 mg/dL in a nonstressed, ambulatory subject supports the diagnosis of Diabetes Mellitus. Laboratory - Chemistry and C hemistry - challengeOrdered By: Herminia Lawler on 05-11-2022 Magnesium [Mass/Vol] 1.7 mg/dL 1.6-2.6 [facility] No Panel InformationOrdered By: Herminia Lawler on 05-11-2022 Estimated GFR () > 60 mL/Min [facility] [place] Comment on above: GFR estimated refere nce range: According to KDOQI guidelines, <60 ml/min/1.73m2 is sufficient to diagnose a patient with chronic kidney disease. Pharmacy Creatinine Clearance (Chem 42.73 [facility] [place] Serum or plasma anion gap de terminationOrdered By: Herminia Lawler on 05-11-2022 Anion gap [Moles/Vol] 13.6 mmol/L 6.0-15.0 [facility] Serum or plasma calcium kristi urement (mass/volume)Ordered By: Herminia Lawler on 05-11-2022 Calcium [Mass/Vol] 9.8 mg/dL 8.2-10.2 [facility] Serum or plasma chloride dorys surement (moles/volume)Ordered By: Herminia Lawler on 05-11-2022 Chloride [Moles/Vol] 107 mmol/L 95-114 [facility] Serum or plasma glucose kristi urement (mass/volume)Ordered By: Herminia Lawler on 05-11-2022 Glucose [Mass/Vol] 187 mg/dL 70-100 [facility] Comment on above: ADA recommended refe rence range Random Glucose Reference Range is dependent on time and content of last meal. Glucose of more than 200 mg/dL in a nonstressed, ambulatory subject supports the diagnosis of Diabetes Mellitus. Serum or plasma potassium me asurement (moles/volume)Ordered By: Herminia Lawler on 05-11-2022 Potassium [Moles/Vol] 3.8 mmol/L 3.5-5.1 [facility] Serum or plasma sodium measu rement (moles/volume)Ordered By: Herminia Lawler on 05-11-2022 Sodium [Moles/Vol] 137 mmol/L 136-146 [facility] Serum or plasma total carbon dioxide measurement (moles/volume)Ordered By: Herminia Lawler on 05-11-2022 CO2 [Moles/Vol] 20.2 mmol/L 22.0-30.0 [facility] Serum or plasma urea nitroge n measurement (mass/volume)Ordered By: Herminia Lawler on 05-11-2022 Urea nitrogen [Mass/Vol] 21 mg/dL 9- [facility] [place] Troponin I.cardiac [Mass/vol ume] in Serum or Plasma by High sensitivity methodOrdered By: Itz Townsend on 05-11-2022 Troponin I.cardiac High sensitivity method [Mass/Vol] 97 pg/mL 0-15 [facility] [place] Comment on above: Results called at 0602 on 05/11/22 Albumin [Mass/volume] in Ser um or PlasmaOrdered By: Herminia Lawler on 05-10-2022 Albumin [Mass/Vol] 2.9 g/dL 3.2-5.5 [facility] Basophils Auto (Bld) [#/Vol] Ordered By: Herminia Lawler on 05-10-2022 Basophils (Bld) [#/Vol] 0.2 10*3/uL 0.0-0.2 [facility] [place] Basophils/100 WBC Auto (Bld) Ordered By: Herminia Lawler on 05-10-2022 Basophils/100 WBC (Bld) 2.8 % . [facility] Blood hemoglobin measurement (mass/volume)Ordered By: Herminia Lawler on 05-10-2022 Hemoglobin (Bld) [Mass/Vol] 12.4 g/dL 11.8-15.4 [facility] [place] Blood leukocytes automated c ount (number/volume)Ordered By: Herminia Lawler on 05-10-2022 WBC (Bld) [#/Vol] 7.0 10*3/uL 4.5-11.0 [facility] Creatine kinase [Enzymatic a ctivity/volume] in Serum or PlasmaOrdered By: Darrion Gilbert on 05-10-2022 CK [Catalytic activity/Vol] 48 U/L 22 [facility] [place] Eosinophils Auto (Bld) [#/Vo l]Ordered By: Obbrent Lawler on 05-10-2022 Eosinophils (Bld) [#/Vol] 0.2 10*3/uL 0.0-0.45 [facility] [place] Eosinophils/100 WBC Auto (Bl d)Ordered By: Herminia Lawler on 05-10-2022 Eosinophils/100 WBC (Bld) 2.7 % . [facility] [place] Erythrocyte distribution wid th Auto (RBC) [Ratio]Ordered By: Obbrent Perezomar on 05-10-2022 Erythrocyte distribution width (RBC) [Ratio] 15.2 % 11.9-15.3 [facility] [place] Globulin Calc (S) [Mass/Vol] Ordered By: Obdarindaethan Perezomar on 05-10-2022 Globulin (S) [Mass/Vol] 2.9 g/dL [facility] Hematocrit Auto (Bld) [Volum e fraction]Ordered By: Obdarindah Chrisomar on 05-10-2022 Hematocrit (Bld) [Volume fraction] 37.8 % 34.0-46.4 [facility] [place] [facility] - Hematology and Cell countsOrdered By: Obdarindaethan Perezomar on 05-10-2022 Nucleated RBC/100 WBC (Bld) [Ratio] 0.3 % 0-0.5 [facility] [place] Lymphocytes Auto (Bld) [#/Vo l]Ordered By: Obdarindah Chrisomar on 05-10-2022 Lymphocytes (Bld) [#/Vol] 3.0 10*3/uL 1.00-4.8 [facility] [place] Lymphocytes/100 WBC Auto (Bl d)Ordered By: Obdarindah Daromar on 05-10-2022 Lymphocytes/100 WBC (Bld) 42.4 % . [facility] [place] MCH Auto (RBC) [Entitic mass ]Ordered By: Obdarindaethan Perezomar on 05-10-2022 MCH (RBC) [Entitic mass] 26.4 pg 24.7-34.3 [facility] [place] MCHC Auto (RBC) [Mass/Vol]Or dered By: Obaydah Daromar on 05-10-2022 MCHC (RBC) [Mass/Vol] 32.8 g/dL 32.0-35.0 [facility] MCV Auto (RBC) [Entitic vol] Ordered By: Obdarindah Daromar on 05-10-2022 MCV (RBC) [Entitic vol] 80.5 fL 80-100 [facility] Monocytes Auto (Bld) [#/Vol] Ordered By: Obdarindah Daromar on 05-10-2022 Monocytes (Bld) [#/Vol] 0.4 10*3/uL 0.0-0.8 [facility] [place] Monocytes/100 WBC Auto (Bld) Ordered By: Obaydah Daromar on 05-10-2022 Monocytes/100 WBC (Bld) 6.4 % . [facility] Neutrophils Auto (Bld) [#/Vo l]Ordered By: Obaydah Daromar on 05-10-2022 Neutrophils (Bld) [#/Vol] 3.2 10*3/uL 1.8-7.7 [facility] [place] Neutrophils/100 WBC Auto (Bl d)Ordered By: Obaydah Daromar on 05-10-2022 Neutrophils/100 WBC (Bld) 45.7 % . [facility] [place] No Panel InformationOrdered By: Obdarindaethan Perezomar on 05-10-2022 Bedside Glucose Comment Glu2: cleaned meter [facility] [place] Platelet mean volume Auto (B ld) [Entitic vol]Ordered By: Obaydah Daromar on 05-10-2022 Platelet mean volume (Bld) [Entitic vol] 8.3 fL 6.3-10.7 [facility] [place] Platelets Auto (Bld) [#/Vol] Ordered By: Obaydah Daromar on 05-10-2022 Platelets (Bld) [#/Vol] 236 10*3/uL 150-450 [facility] [place] Protein [Mass/volume] in Ser um or PlasmaOrdered By: Obaydah Daromar on 05-10-2022 Protein [Mass/Vol] 5.8 g/dL 6.1-7.9 [facility] RBC Auto (Bld) [#/Vol]Ordere d By: Obaydah Daromar on 05-10-2022 RBC (Bld) [#/Vol] 4.70 10*6/uL 3.60-5.00 [facility] Serum or plasma alanine landa otransferase measurement without P-5'-P (enzymatic activiOrdered By: Obdarindah Daromar on 05-10-2022 ALT No additional P-5'-P [Catalytic activity/Vol] 18 U/L 10-60 [facility] [place] Serum or plasma albumin/glob ulin mass ratioOrdered By: Herminia Lawlre on 05-10-2022 Albumin/Globulin [Mass ratio] 1.0 {ratio} [facility] [place] Serum or plasma alkaline jama sphatase measurement (enzymatic activity/volume)Ordered By: Herminia Lawler on 05-10-2022 ALP [Catalytic activity/Vol] 75 U/L 32-92 [facility] [place] Serum or plasma aspartate am inotransferase measurement (enzymatic activity/volume)Ordered By: Herminia Lawler on 05-10-2022 AST [Catalytic activity/Vol] 18 U/L 10-42 [facility] [place] Serum or plasma creatine kin ase MB (CKMB)/total creatine kinase (CK) ratio by calculaOrdered By: Darrion Gilbert on 05-10-2022 CK.MB Calc [Catalytic fraction] 6.8 % 0.00-2.50 [facility] [place] Serum or plasma creatine kin ase MB measurement (mass/volume)Ordered By: Darrion Gilbert on 05-10-2022 CK.MB [Mass/Vol] 3.3 ng/mL 0.6-6.3 [facility] Serum or plasma total biliru bin measurement (mass/volume)Ordered By: Herminia Lawler on 05-10-2022 Bilirubin [Mass/Vol] 0.4 mg/dL 0.3-1.2 [facility] ACETONE SERUMon 05-09-2022 ACETONE Negative Normal NEGATIVE [facility] Comment on above: Performed By: #### A CETON #### [facility] [address] [address] [address] Kesha Aguero CBC AUTO DIFFon 05-09-2022 BASO # 0.0 103/ul Normal 0.0-0.1 [facility] Comment on above: Performed By: #### A CETON #### [facility] [address] [address] [address] Kesha Aguero Basophils/100 WBC (Bld) 0.5 % Normal 0.2-2.0 [facility] Comment on above: Performed By: #### A CETON #### [facility] [address] [place] [address] Dr. Kesha Aguero EO # 0.1 103/ul Normal 0.0-0.7 [facility] Comment on above: Performed By: #### A CETON #### [facility] [address] [place] [address] Dr. Kesha Aguero Eosinophils/100 WBC (Bld) 1.5 % Normal 0.9-7.0 [facility] Comment on above: Performed By: #### A CETON #### [facility] [address] [place] [address] Dr. Kesha Aguero Erythrocyte distribution width (RBC) [Ratio] 14.1 % Normal 11.0-15.0 [facility] Comment on above: Performed By: #### A CETON #### [facility] [address] [place] [address] Dr. Kesha Aguero Hematocrit (Bld) [Volume fraction] 40.7 % Normal 36.0-48.0 [facility] Comment on above: Performed By: #### A CETON #### [facility] [address] [place] [address] Dr. Kesha Aguero Hemoglobin (Bld) [Mass/Vol] 13.0 g/dL Normal 12.0-16.0 [facility] Comment on above: Performed By: #### A CETON #### [facility] [address] [place] [address] Dr. Kesha Agueor IG # 0.01 10e3/ul Normal 0.00-0.03 [facility] Comment on above: Performed By: #### A CETON #### [facility] [address] [place] [address] Dr. Kesha Aguero IG % 0.1 % Normal 0.0-0.5 [facility] Comment on above: Performed By: #### A CETON #### [facility] [address] [place] [address] Dr. Kesha Aguero LYMPH # 2.6 103/ul Normal 1.2-3.8 [facility] Comment on above: Performed By: #### A CETON #### [facility] [address] [address] [address] Kesha Aguero Lymphocytes/100 WBC (Bld) 33.0 % Normal 20.5-60.0 [facility] Comment on above: Performed By: #### A CETON #### [facility] [address] [address] [address] Kesha Aguero MANUAL DIFF REQ NO Normal [facility] Comment on above: Performed By: #### A CETON #### [facility] [address] [address] [address] Kesha Aguero MCH (RBC) [Entitic mass] 26.5 pg Critically low 26.7-34.0 [facility] Comment on above: Performed By: #### A CETON #### [facility] [address] [place] [address] Dr. Kesha Aguero MCHC (RBC) [Mass/Vol] 31.9 g/dL Normal 29.9-35.2 [facility] Comment on above: Performed By: #### A CETON #### [facility] [address] [place] [address] Dr. Kesha Aguero MCV (RBC) [Entitic vol] 82.9 fL Normal 81.0-99.0 [facility] Comment on above: Performed By: #### A CETON #### [facility] [address] [place] [address] Dr. Kesha Aguero MONO # 0.6 103/ul Normal 0.3-0.8 [facility] Comment on above: Performed By: #### A CETON #### [facility] [address] [place] [address] Dr. Kesha Aguero Monocytes/100 WBC (Bld) 7.1 % Normal 1.7-12.0 [facility] Comment on above: Performed By: #### A CETON #### [facility] [address] [place] [address] Dr. Kesha Aguero NEUT # 4.5 103/ul Normal 1.4-6.5 [facility] Comment on above: Performed By: #### A CETON #### [facility] [address] [address] [address] Kesha Aguero Neutrophils/100 WBC (Bld) 57.8 % Normal 43.0-75.0 [facility] Comment on above: Performed By: #### A CETON #### [facility] [address] [address] [address] Kesha Aguero Platelet mean volume (Bld) [Entitic vol] 10.4 fL Normal 9.5-13.5 [facility] Comment on above: Performed By: #### A CETON #### [facility] [address] [address] [address] Kesha Aguero PLT 208 103/ul Normal 150-450 [facility] Comment on above: Performed By: #### A CETON #### [facility] [address] [place] [address] Dr. Kesha Aguero RBC 4.91 106/ul Normal 4.20-5.40 [facility] Comment on above: Performed By: #### A CETON #### [facility] [address] [place] [address] Dr. Kesha Aguero WBC 7.9 103/ul Normal 4.0-11.0 [facility] Comment on above: Performed By: #### A CETON #### [facility] [address] [place] [address] Dr. Kesha Aguero CTA ABD/PELVIS WO W [...] acute inflammatory changes. Electronically authenticated by: [place] Date: 2022-05-09 07:19 Normal [facility] Cholesterol [Mass/volume] in Serum or PlasmaOrdered By: Herminia Lawler on 05-09-2022 Cholesterol [Mass/Vol] 112 mg/dL 140-200 [facility] Comment on above: Chol less than 200 m g/dl low risk Chol 201-239 mg/dl borderline risk Chol 240 mg/dl and greater high risk Cholesterol in LDL Calc [Mas s/Vol]Ordered By: Herminia Lawler on 05-09-2022 Cholesterol in LDL [Mass/Vol] 51 mg/dL 0-100 [facility] [place] Comment on above: LDL ATP III CLASSIFI CATION LDL less than 100 mg/dL Optimal LDL 100-129 mg/dL Near or above optimal LDL 130-159 mg/dL Borderline high LDL 160-189 mg/dL High LDL greater than 189 mg/dL Very high Cholesterol in VLDL Calc [Ma ss/Vol]Ordered By: Herminia Lawler on 05-09-2022 Cholesterol in VLDL [Mass/Vol] 31 mg/dL [facility] [place] [facility] SARS-CoV-2 (COVID-19) RNA YARA+probe Ql (Unsp spec) Not detected Normal NOT DETECTED [facility] Comment on above: Result Comment: When diagnostic [...] for this test is supported by the Air Crew Officer of Health and Human Service's declaration that [...] longer be used). Performed By: #### C COUNT INCLUDES THE [facility] #### [facility] [address] [place] [address] Dr. Kesha Aguero Glucose mean value [Mass/vol ume] in Blood Estimated from glycated hemoglobinOrdered By: Herminia Lawler on 05-09-2022 Average glucose Estimated from glycated hemoglobin (Bld) [Mass/Vol] 263 mg/dL [facility] [place] Hemoglobin A1c percentageOrd ered By: Herminia Lawler on 05-09-2022 HbA1c (Bld) [Mass fraction] 10.8 % 4.3-5.6 [facility] [place] Comment on above: Increased risk for d iabetes: 5.7 - 6.4 diabetes: >6.4 glycemic control for adults with diabetes: <7.0 LIPASEon 05-09-2022 Lipase [Catalytic activity/Vol] 287.0 U/L Normal 73.0-393.0 [facility] Comment on above: Performed By: #### C VDTBH #### [facility] [address] [address] [address] Kesha Aguero Laboratory - CoagulationOrde red By: Herminia Lawler on 05-09-2022 PT Coag (PPP) [Time] 11.6 s 9.0-12.9 [facility] POINT OF CARE GLUCOSEon Glucose [Mass/Vol] 387 mg/dL Critically high 74-106 [facility] Comment on above: Performed By: #### C VDTBH #### [facility] [address] [place] [address] Dr. Kesha Aguero Glucose [Mass/Vol] 432 mg/dL Critically high 74-106 [facility] Comment on above: Performed By: #### P OCGLUC #### [facility] [address] [address] [address] Kesha Aguero PROF 14(COMP METB)on 022 Albumin [Mass/Vol] 3.5 g/dL Normal 3.4-5.0 [facility] Comment on above: Performed By: #### C VDTBH #### [facility] [address] [place] [address] Dr. Kesha Aguero Albumin/Globulin [Mass ratio] 1.0 {ratio} Normal [facility] Comment on above: Performed By: #### C VDTBH #### [facility] [address] [address] [address] Kesha Aguero ALP [Catalytic activity/Vol] 115 U/L Normal 46-116 [facility] Comment on above: Performed By: #### C VDTBH #### [facility] [address] [place] [address] Dr. Kesha Aguero ALT [Catalytic activity/Vol] 24 U/L Normal 14-59 [facility] Comment on above: Performed By: #### C VDTB #### [facility] [address] [address] [address] Kesha Aguero Anion gap [Moles/Vol] 15.3 mmol/L Normal [facility] Comment on above: Performed By: #### C VDTBH #### [facility] [address] [address] [address] Kesha Aguero AST [Catalytic activity/Vol] 16 U/L Normal 15-37 [facility] Comment on above: Performed By: #### C VDTBH #### [facility] [address] [place] [address] Dr. Kesha Aguero Bilirubin [Mass/Vol] 0.4 mg/dL Normal 0.2-1.0 [facility] Comment on above: Performed By: #### C VDTBH #### [facility] [address] [place] [address] Dr. Kesha Aguero Calcium [Mass/Vol] 9.6 mg/dL Normal 8.5-10.1 [facility] Comment on above: Performed By: #### C VDTBH #### [facility] [address] [place] [address] Dr. Kesha Aguero Chloride [Moles/Vol] 102 mmol/L Normal 98-107 [facility] Comment on above: Performed By: #### C VDTBH #### [facility] [address] [place] [address] Dr. Kesha Aguero CO2 [Moles/Vol] 19.7 mmol/L Critically low 21.0-32.0 [facility] Comment on above: Performed By: #### C VDTBH #### [facility] [address] [place] [address] Dr. Kesha Aguero Creatinine [Mass/Vol] 1.22 mg/dL Critically high 0.55-1.02 [facility] Comment on above: Performed By: #### C VDTBH #### [facility] [address] [address] [address] Kesha Aguero EGFR-AF CYMRO 51 mL/min/1.73m2 Critically low >=60 [facility] Comment on above: Performed By: #### C VDTBH #### [facility] [address] [address] [address] Kesha Aguero EGFR-NON AF CYMRO 42 mL/min/1.73m2 Critically low >=60 [facility] Comment on above: Performed By: #### C VDTBH #### [facility] [address] [address] [address] Kesha Aguero Globulin (S) [Mass/Vol] 3.6 g/dL Normal [facility] Comment on above: Performed By: #### C VDTBH #### [facility] [address] [address] [address] Kesha Aguero Glucose [Mass/Vol] 499 mg/dL Critically high 74-106 [facility] Comment on above: Performed By: #### C VDTBH #### [facility] [address] [place] [address] Dr. Kesha Aguero Potassium [Moles/Vol] 4.0 mmol/L Normal 3.5-5.1 [facility] Comment on above: Performed By: #### C VDTBH #### [facility] [address] [address] [address] Kesha Aguero Protein [Mass/Vol] 7.1 g/dL Normal 6.4-8.2 [facility] Comment on above: Performed By: #### C VDTBH #### [facility] [address] [address] [address] Kesha Aguero Sodium [Moles/Vol] 133 mmol/L Critically low 136-145 [facility] Comment on above: Performed By: #### C VDTBH #### [facility] [address] [address] [address] Kesha Aguero Urea nitrogen [Mass/Vol] 27.0 mg/dL Critically high 7.0-18.0 [facility] Comment on above: Performed By: #### C VDTBH #### [facility] [address] [address] [address] Kesha Aguero Urea nitrogen/Creatinine [Mass ratio] 22.1 mg/mg Normal [facility] Comment on above: Performed By: #### C VDTBH #### [facility] [address], [place] [address] Dr. Kesha Aguero Phosphate [Mass/volume] in S jefferson or PlasmaOrdered By: Herminia Lawler on 05-09-2022 Phosphate [Mass/Vol] 3.5 mg/dL 2.5-4.6 [facility] Platelet poor plasma interna tional normalized ratio (INR) by coagulation assay (relatOrdered By: Herminia Lawler on 05-09-2022 INR Coag (PPP) [Relative time] 1.0 {INR} [facility] [place] Comment on above: INR Therapeutic Rang e [...] with mechanical heart valves: 3 - 4.5 Serum or plasma high density lipoprotein (HDL) cholesterol measurementOrdered By: Herminia Lawler on 05-09-2022 Cholesterol in HDL [Mass/Vol] 30 mg/dL 35-85 [facility] [place] Comment on above: HDL CHOL ATP-III CLA SSIFICATION Cardiovascular Risk HDL > or equal to 60 mg/dL LOW HDL < 40 mg/dL HIGH Serum or plasma total choles terol/high density lipoprotein (HDL) cholesterol mass ratOrdered By: Herminia Lawler on 05-09-2022 Cholesterol.total/Shey sterol in HDL [Mass ratio] 3.7 {ratio} <5.0 [facility] [place] TROPONIN, HIGH SENSITIVITYon 05-09-2022 HSTROP 603.9 pg/mL Critically high 4.0-51.3 [facility] Comment on above: Result Comment: CUT- OFF POINTS HAVE BEEN ESTABLISHED BASED ON THE FOURTH UNIVERSAL DEFINITIONS OF MYOCARDIAL INFARCTION. THE UPPER REFERENCE LIMIT (URL) OF TROPONIN, DEFINED THE 99TH PERCENTILE OF cTnI DISTRIBUTION IN A REFERENCE POPULATION, HAS BEEN CONFIRMED THE DECISION THRESHOLD FOR LA DIAGNOSIS. Performed By: #### A CETON #### [facility] [address] [address] [address] Kesha Aguero HSTROP 24.7 pg/mL Normal 4.0-51.3 [facility] Comment on above: Result Comment: CUT- OFF POINTS HAVE BEEN ESTABLISHED BASED ON THE FOURTH UNIVERSAL DEFINITIONS OF MYOCARDIAL INFARCTION. THE UPPER REFERENCE LIMIT (URL) OF TROPONIN, DEFINED THE 99TH PERCENTILE OF cTnI DISTRIBUTION IN A REFERENCE POPULATION, HAS BEEN CONFIRMED THE DECISION THRESHOLD FOR LA DIAGNOSIS. Performed By: #### [facility] #### [facility] [address] [address] [address] Kesha Aguero Triglyceride [Mass/volume] i n Serum or PlasmaOrdered By: Herminia Lawler on 05-09-2022 Triglyceride [Mass/Vol] 156 mg/dL 35-149 [facility] Comment on above: TRIG ATP III CLASSIF ICATION TRIG less than 150 mg/dL Normal TRIG 150-199 mg/dL Borderline high TRIG 200-500 mg/dL High TRIG greater than 500 mg/dL Very high Standard traceable to the Center for Disease Conrtrol and Prevention (CDC) test method. Covid-19 PCR ([facility])on SARS-CoV-2 (COVID-19) RNA YARA+probe Ql (Unsp spec) Not detected Normal NOT DETECTED [facility] Comment on above: Result Comment: This test is not yet approved or cleared by the [place] FDA. When there are no FDA-approved or cleared tests available, and other criteria are met, FDA can make tests available under an emergency access mechanism called an Emergency Use Authorization (EUA). The EUA for this test is supported by the Eros of Health and Human Service's (HHS's) declaration [...] SARS-CoV-2. Performed By: #### C VDTBH #### [facility] [address] [address] [address] Kesha Aguero PROF CHEM 8 (BAS METB)on Anion gap [Moles/Vol] 13.7 mmol/L Normal [facility] Comment on above: Performed By: #### D DIM #### [facility] [address] [address] [address] Kesha Aguero Calcium [Mass/Vol] 9.8 mg/dL Normal 8.5-10.1 [facility] Comment on above: Performed By: #### D DIM #### [facility] [address] [address] [address] Kesha Aguero Chloride [Moles/Vol] 102 mmol/L Normal 98-107 [facility] Comment on above: Performed By: #### D DIM #### [facility] [address] [place] [address] Dr. Kesha Aguero CO2 [Moles/Vol] 26.0 mmol/L Normal 21.0-32.0 [facility] Comment on above: Performed By: #### D DIM #### [facility] [address] [place] [address] Dr. Kesha Aguero Creatinine [Mass/Vol] 1.22 mg/dL Critically high 0.55-1.02 [facility] Comment on above: Performed By: #### D DIM #### [facility] [address] [place] [address] Dr. Kesha Aguero EGFR-AF CYMRO 51 mL/min/1.73m2 Critically low >=60 [facility] Comment on above: Performed By: #### D DIM #### [facility] [address] [address] [address] Kesha Aguero EGFR-NON AF CYMRO 42 mL/min/1.73m2 Critically low >=60 [facility] Comment on above: Performed By: #### D DIM #### [facility] [address] [address] [address] Kesha Aguero Glucose [Mass/Vol] 323 mg/dL Critically high 74-106 [facility] Comment on above: Performed By: #### D DIM #### [facility] [address] [place], [place] [address] Dr. Kesha Aguero Potassium [Moles/Vol] 4.7 mmol/L Normal 3.5-5.1 [facility] Comment on above: Performed By: #### D DIM #### [facility] [address] [place], [place] [address] Dr. Kesha Aguero Sodium [Moles/Vol] 137 mmol/L Normal 136-145 [facility] Comment on above: Performed By: #### D DIM #### [facility] [address], [place] [address] Dr. Kesha Aguero Urea nitrogen [Mass/Vol] 31.0 mg/dL Critically high 7.0-18.0 [facility] Comment on above: Performed By: #### D DIM #### [facility] [address] [address] [address] Kesha Aguero Urea nitrogen/Creatinine [Mass ratio] 25.4 mg/mg Normal [facility] Comment on above: Performed By: #### D DIM #### [facility] [address] [place], [place] [address] Dr. Kesha Aguero Cardiovascular Lab Reporton 04-22-2022 Cardiovascular Lab Report [facility] Patient Name: Shahbaz [facility] Marcy MR #: [id number] Department of Physician: Edison Gibbs [facility]il[facility] Division of Service Date: 04/21/2022 Cardiology Birthdate: 1940 Adult Cardiovascular Room #: [address] [address] Cardiovascular Laboratory Report CLINICAL PRESENTATION: The patient is an 82-year-old female with past medical history significant for hypertension, hyperlipidemia, CAD, PCI to ramus, [employer], and systolic heart failure with EF [...] Farxiga. Monitor labs. 5. Outpatient followup with [facility]. 6. Referral to cardiac rehabilitation. PROCEDURES: [...] infiltrated over the left radial artery. A 6-Qatari for Terumo Glidesheath slender was placed in the left radial artery. Radial anti-vasospasm cocktail of verapamil and nitroglycerin was administered to prevent spasm. All catheter exchanges were made over the Magic Torque guidewire. This was a planned PCI procedure. Heparin anticoagulation was administered and ACT was maintained greater than 250 seconds. A Cordis 6-Qatari JR4 guide was engaged to right coronary [...] througho (more content not included)... Normal [facility] Covid-19 PCR ([facility])on 03-31 SARS-CoV-2 (COVID-19) RNA YARA+probe Ql (Unsp spec) Not detected Normal NOT DETECTED [facility] Comment on above: Result Comment: This test is not yet approved or cleared by the [place] FDA. When there are no FDA-approved or cleared tests available, and other criteria are met, FDA can make tests available under an emergency access mechanism called an Emergency Use Authorization (EUA). The EUA for this test is supported by the Eros of Health and Human Service's (HHS's) declaration [...] SARS-CoV-2. Performed By: #### D DIM #### [facility] [address] [place] [address] Dr. Kesha Aguero HEMOGRAM AND PLATELon 2021 Hematocrit (Bld) [Volume fraction] 41.6 % Normal 36.0-48.0 [facility] Comment on above: Performed By: #### C VDTBH #### [facility] [address] [place] [address] Dr. Kesha Aguero Hemoglobin (Bld) [Mass/Vol] 13.2 g/dL Normal 12.0-16.0 [facility] Comment on above: Performed By: #### C VDTBH #### [facility] [address] [place] [address] Dr. Kesha Aguero MCH (RBC) [Entitic mass] 26.2 pg Critically low 26.7-34.0 [facility] Comment on above: Performed By: #### C VDTBH #### [facility] [address] [place] [address] Dr. Kesha Aguero MCHC (RBC) [Mass/Vol] 31.7 g/dL Normal 29.9-35.2 [facility] Comment on above: Performed By: #### C VDTBH #### [facility] [address] [place] [address] Dr. Kesha Aguero MCV (RBC) [Entitic vol] 82.7 fL Normal 81.0-99.0 [facility] Comment on above: Performed By: #### C VDTBH #### [facility] [address] [address] [address] Kesha Aguero PLT 272 103/ul Normal 150-450 [facility] Comment on above: Performed By: #### C VDTBH #### [facility] [address] [address] [address] Kesha Aguero RBC 5.03 106/ul Normal 4.20-5.40 [facility] Comment on above: Performed By: #### C VDTBH #### [facility] [address] [address] [address] Kesha Aguero WBC 5.9 103/ul Normal 4.0-11.0 [facility] Comment on above: Performed By: #### C VDTBH #### [facility] [address] [place] [address] Dr. Kesha Aguero PROF CHEM 8 (BAS METB)on Anion gap [Moles/Vol] 12.8 mmol/L Normal [facility] Comment on above: Performed By: #### D DIM #### [facility] [address] [place] [address] Dr. Kesha Aguero Calcium [Mass/Vol] 9.6 mg/dL Normal 8.5-10.1 [facility] Comment on above: Performed By: #### D DIM #### [facility] [address] [place] [address] Dr. Kesha Aguero Chloride [Moles/Vol] 105 mmol/L Normal 98-107 [facility] Comment on above: Performed By: #### D DIM #### [facility] [address] [place] [address] Dr. Kesha Aguero CO2 [Moles/Vol] 25.6 mmol/L Normal 21.0-32.0 [facility] Comment on above: Performed By: #### D DIM #### [facility] [address] [place] [address] Dr. Kesha Aguero Creatinine [Mass/Vol] 1.07 mg/dL Critically high 0.55-1.02 [facility] Comment on above: Performed By: #### D DIM #### [facility] [address] [address] [address] Kesha Aguero EGFR-AF CYMRO 59 mL/min/1.73m2 Critically low >=60 [facility] Comment on above: Performed By: #### D DIM #### [facility] [address] [address] [address] Kesha Aguero EGFR-NON AF CYMRO 49 mL/min/1.73m2 Critically low >=60 [facility] Comment on above: Performed By: #### D DIM #### [facility] [address] [address] [address] Kesha Aguero Glucose [Mass/Vol] 264 mg/dL Critically high 74-106 [facility] Comment on above: Performed By: #### D DIM #### [facility] [address] [place] [address] Dr. Kesha Aguero Potassium [Moles/Vol] 4.4 mmol/L Normal 3.5-5.1 [facility] Comment on above: Performed By: #### D DIM #### [facility] [address] [address] [address] Kesha Aguero Sodium [Moles/Vol] 139 mmol/L Normal 136-145 [facility] Comment on above: Performed By: #### D DIM #### [facility] [address] [address] [address] Kesha Aguero Urea nitrogen [Mass/Vol] 17.0 mg/dL Normal 7.0-18.0 [facility] Comment on above: Performed By: #### D DIM #### [facility] [address] [place] [address] Dr. Kesha Aguero Urea nitrogen/Creatinine [Mass ratio] 15.9 mg/mg Normal [facility] Comment on above: Performed By: #### D DIM #### [facility] [address] [address] [address] Kesha Aguero MAGNESIUMon 03-12-2022 Magnesium [Mass/Vol] 1.8 mg/dL Normal 1.8-2.4 [facility] Comment on above: Performed By: #### D DIM #### [facility] [address] [address] [address] Kesha Aguero PROF CHEM 8 (BAS METB)on Anion gap [Moles/Vol] 13.9 mmol/L Normal [facility] Comment on above: Performed By: #### D DIM #### [facility] [address] [address] [address] Kesha Aguero Calcium [Mass/Vol] 9.8 mg/dL Normal 8.5-10.1 [facility] Comment on above: Performed By: #### D DIM #### [facility] [address] [address] [address] Kesha Aguero Chloride [Moles/Vol] 101 mmol/L Normal 98-107 [facility] Comment on above: Performed By: #### D DIM #### [facility] [address] [address] [address] Kesha Aguero CO2 [Moles/Vol] 24.8 mmol/L Normal 21.0-32.0 [facility] Comment on above: Performed By: #### D DIM #### [facility] [address] [address] [address] Kesha Aguero Creatinine [Mass/Vol] 1.28 mg/dL Critically high 0.55-1.02 [facility] Comment on above: Performed By: #### D DIM #### [facility] [address] [address] [address] Kesha Aguero EGFR-AF CYMRO 48 mL/min/1.73m2 Critically low >=60 [facility] Comment on above: Performed By: #### D DIM #### [facility] [address] [address] [address] Kesha Aguero EGFR-NON AF CYMRO 40 mL/min/1.73m2 Critically low >=60 [facility] Comment on above: Performed By: #### D DIM #### [facility] [address] [address] [address] Kesha Aguero Glucose [Mass/Vol] 214 mg/dL Critically high 74-106 [facility] Comment on above: Performed By: #### D DIM #### [facility] [address], [place] [address] Dr. Kesha Aguero Potassium [Moles/Vol] 4.7 mmol/L Normal 3.5-5.1 [facility] Comment on above: Performed By: #### D DIM #### [facility] [address], [place] [address] Dr. Kesha Aguero Sodium [Moles/Vol] 135 mmol/L Critically low 136-145 [facility] Comment on above: Performed By: #### D DIM #### [facility] [address], [place] [address] Dr. Kesha Aguero Urea nitrogen [Mass/Vol] 26.0 mg/dL Critically high 7.0-18.0 [facility] Comment on above: Performed By: #### D DIM #### [facility] [address] [address] [address] Kesha Aguero Urea nitrogen/Creatinine [Mass ratio] 20.3 mg/mg Normal [facility] Comment on above: Performed By: #### D DIM #### [facility] [address], [place] [address] Dr. Kesha Aguero Cardiovascular Lab Reporton 2022 Cardiovascular Lab Report [facility] Patient Name: Shahbaz [facility] Marcy MR #: [id number] Department of Physician: Edison Gibbs M.D. 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 The ramus coronary artery has a proximal [...] right PDA disease. 8. Outpatient followup with [facility]. 9. Since the right heart catheterization [...] ultrasound guidance and micropuncture access technique, a 6-Qatari sheath was placed in right internal jugular [...] anesthetized with 1% lidocaine and then a 6-Qatari Terumo Glidesheath slender placed in the left radial artery. The radial anti-vasospasm cocktail of nitroglycerin 200 mcg and verapamil 2.5 mg administered through the sheath. All catheters and sheaths were made over the MagPoly Adaptive Torque guidewire. A 5-Qatari JR 5 was used to engage the right coronary artery. 5-Qatari JL 3.5 was used to engage the left main coronary artery. Coronary angiogram was performed in multiple orthogonal views using hand injection of contrast. 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 I elected to proceed with PCI given the patient's advanced age. A Cordis 6-Qatari XB 3.0 guide was engaged in left main coronary artery. Heparin anticoagulation was used for this procedure. ACT was maintained greater than 200 seconds. Run-through wire was manipulated into the coronary arteries. First, I probed the LAD and it did in fact behave as a REAL ESTATE LOAN OFFICER. Therefore, I turned my attention to the ramus coronary artery. The proximal ramus had 99% stenosis. The run-through wire has been delivered to the distal ramus. The lesion was predilated with the HeadCount 2.5 x 15 mm balloon at 12 atmospheres. Next, a Synergy 2.5 x 16 mm drug-eluting stent was deployed in the proximal ramus. Careful attention was placed to land the stent at the ostium of the ramus and not protrude into the left main coronary artery. The stent was deployed at 12 atmospheres. Next, the stent was post dilated with the NC Precision Biologics 2.5 x 15 mm balloon. The b (more content not included)... Normal [facility] POC SARS COV2 IDon 2 SARS-CoV-2 (COVID-19) RNA YARA+probe Ql (Unsp spec) Negative Normal NEGATIVE [facility] Comment on above: Result Comment: ID N OW COVID-19 assay performed on the ID NOW Instrument is a rapid molecular in vitro [...] Accreditation. Performed By: #### 3 1921 #### [facility] [address] CBC AUTO DIFFon 03-01-2022 BASO # 0.1 103/ul Normal 0.0-0.1 [facility] Comment on above: Performed By: #### C VDTBH #### [facility] [address] [place] [address] Dr. Kesha Aguero Basophils/100 WBC (Bld) 0.7 % Normal 0.2-2.0 [facility] Comment on above: Performed By: #### C VDTBH #### [facility] [address] [place] [address] Dr. Kesha Aguero EO # 0.1 103/ul Normal 0.0-0.7 [facility] Comment on above: Performed By: #### C VDTBH #### [facility] [address] [place] [address] Dr. Kesha Aguero Eosinophils/100 WBC (Bld) 1.2 % Normal 0.9-7.0 [facility] Comment on above: Performed By: #### C VDTBH #### [facility] [address] [place] [address] Dr. Kesha Aguero Erythrocyte distribution width (RBC) [Ratio] 14.0 % Normal 11.0-15.0 [facility] Comment on above: Performed By: #### C VDTBH #### [facility] [address] [place] [address] Dr. Kesha Aguero Hematocrit (Bld) [Volume fraction] 40.9 % Normal 36.0-48.0 [facility] Comment on above: Performed By: #### C VDTBH #### [facility] [address] [place] [address] Dr. Kesha Aguero Hemoglobin (Bld) [Mass/Vol] 13.1 g/dL Normal 12.0-16.0 [facility] Comment on above: Performed By: #### C VDTBH #### [facility] [address] [place] [address] Dr. Kesha Aguero IG # 0.03 10e3/ul Normal 0.00-0.03 [facility] Comment on above: Performed By: #### C VDTBH #### [facility] [address] [place] [address] Dr. Kesha Aguero IG % 0.3 % Normal 0.0-0.5 [facility] Comment on above: Performed By: #### C VDTBH #### [facility] [address] [place] [address] Dr. Kesha Aguero LYMPH # 3.4 103/ul Normal 1.2-3.8 [facility] Comment on above: Performed By: #### C VDTBH #### [facility] [address] [place] [address] Dr. Kesha Aguero Lymphocytes/100 WBC (Bld) 36.9 % Normal 20.5-60.0 [facility] Comment on above: Performed By: #### C VDTBH #### [facility] [address] [place] [address] Dr. Kesha Aguero MANUAL DIFF REQ NO Normal [facility] Comment on above: Performed By: #### C VDTBH #### [facility] [address] [place] [address] Dr. Kesha Aguero MCH (RBC) [Entitic mass] 26.5 pg Critically low 26.7-34.0 [facility] Comment on above: Performed By: #### C VDTBH #### [facility] [address] [place] [address] Dr. Kesha Aguero MCHC (RBC) [Mass/Vol] 32.0 g/dL Normal 29.9-35.2 [facility] Comment on above: Performed By: #### C VDTBH #### [facility] [address] [place] [address] Dr. Kesha Aguero MCV (RBC) [Entitic vol] 82.8 fL Normal 81.0-99.0 [facility] Comment on above: Performed By: #### C VDTBH #### [facility] [address] [place] [address] Dr. Kesha Aguero MONO # 0.6 103/ul Normal 0.3-0.8 [facility] Comment on above: Performed By: #### C VDTBH #### [facility] [address] [place] [address] Dr. Kesha Aguero Monocytes/100 WBC (Bld) 6.5 % Normal 1.7-12.0 [facility] Comment on above: Performed By: #### C VDTBH #### [facility] [address] [place] [address] Dr. Kesha Aguero NEUT # 4.9 103/ul Normal 1.4-6.5 [facility] Comment on above: Performed By: #### C VDTBH #### [facility] [address] [place] [address] Dr. Kesha Aguero Neutrophils/100 WBC (Bld) 54.4 % Normal 43.0-75.0 [facility] Comment on above: Performed By: #### C VDTBH #### [facility] [address] [place] [address] Dr. Kesha Aguero Platelet mean volume (Bld) [Entitic vol] 9.5 fL Normal 9.5-13.5 [facility] Comment on above: Performed By: #### C VDTBH #### [facility] [address] [place] [address] Dr. Kesha Aguero PLT 271 103/ul Normal 150-450 [facility] Comment on above: Performed By: #### C VDTBH #### [facility] [address] [place] [address] Dr. Kesha Aguero RBC 4.94 106/ul Normal 4.20-5.40 [facility] Comment on above: Performed By: #### C VDTBH #### [facility] [address] [place] [address] Dr. Kesha Aguero WBC 9.1 103/ul Normal 4.0-11.0 [facility] Comment on above: Performed By: #### [facility] #### [facility] [address] [place] [address] Dr. Kesha Aguero Covid-19 PCR ([facility])on SARS-CoV-2 (COVID-19) RNA YARA+probe Ql (Unsp spec) Not detected Normal NOT DETECTED [facility] Comment on above: Result Comment: When diagnostic [...] for this test is supported by the [place] of Health and Human Service's declaration that [...] used). Performed By: #### A CETON #### [facility] [address] [place] [address] Dr. Kesha Aguero PROF CHEM 8 (BAS METB)on Anion gap [Moles/Vol] 14.3 mmol/L Normal [facility] Comment on above: Performed By: #### B MP #### [facility] [address] [place] [address] Dr. Kesha Aguero Calcium [Mass/Vol] 9.7 mg/dL Normal 8.5-10.1 [facility] Comment on above: Performed By: #### B MP #### [facility] [address] [place] [address] Dr. Kesha Aguero Chloride [Moles/Vol] 100 mmol/L Normal 98-107 [facility] Comment on above: Performed By: #### B MP #### [facility] [address] [address] [address] Kesha Aguero CO2 [Moles/Vol] 27.2 mmol/L Normal 21.0-32.0 [facility] Comment on above: Performed By: #### B MP #### [facility] [address] [address] [address] Kesha Aguero Creatinine [Mass/Vol] 1.34 mg/dL Critically high 0.55-1.02 [facility] Comment on above: Performed By: #### B MP #### [facility] [address] [address] [address] Kesha Aguero EGFR-AF CYMRO 46 mL/min/1.73m2 Critically low >=60 [facility] Comment on above: Performed By: #### B MP #### [facility] [address] [address] [address] Kesha Aguero EGFR-NON AF CYMRO 38 mL/min/1.73m2 Critically low >=60 [facility] Comment on above: Performed By: #### B MP #### [facility] [address] [address] [address] Kesha Aguero Glucose [Mass/Vol] 232 mg/dL Critically high 74-106 [facility] Comment on above: Performed By: #### B MP #### [facility] [address] [address] [address] Kesha Aguero Potassium [Moles/Vol] 4.5 mmol/L Normal 3.5-5.1 [facility] Comment on above: Performed By: #### B MP #### [facility] [address] [address] [address] Kesha Aguero Sodium [Moles/Vol] 137 mmol/L Normal 136-145 [facility] Comment on above: Performed By: #### B MP #### [facility] [address] [address] [address] Kesha Aguero Urea nitrogen [Mass/Vol] 22.0 mg/dL Critically high 7.0-18.0 [facility] Comment on above: Performed By: #### B MP #### [facility] [address], [place] [address] Dr. Kesha Aguero Urea nitrogen/Creatinine [Mass ratio] 16.4 mg/mg Normal [facility] Comment on above: Performed By: #### B MP #### [facility] [address], [place] [address] Dr. Kesha Aguero ECHOCARDIO M/2D COMPLETEon 0 02-11-2022 ECHOCARDIO M/2D COMPLETE Patient: TERE HARTMANN Exam Date: 02/11/2022 : 1940 Gender:F Ordering : DR RODRICK BUTLER M.D. Admission #: [id number] Family : Order #: [id number] CLICK HERE TO VIEW EXAM ECHOCARDIOGRAM REPORT [...] Area(A4C): 23.90 cm2 Left Atrium Systolic Volume(A2C): 52284 mm3 Left Atrium Systolic Volume(A4C): 14811 mm3 Mitral Valve MV E to A Ratio: 0.70 Mitral Valve A-Wave Peak Velocity: 100.00 cm/s Mitral Valve E-Wave Peak Velocity: 74.50 cm/s Deceleration Time: 296 ms Right Ventricle Aorta AO Root Diam: 3.10 cm Aortic Valve Peak Velocity (Antegrade Flow): 159.00 cm/s, 159.00 cm/s AoV Area (Peak Dallin): 1.27 cm2 AoV Area (VTI): 1.32 cm2 [...] Enrique Jackson M.D. on 02/11/2022 at 18:48 [facility] NM STRESS/REST MULTIon 02-11 NM STRESS/REST MULTI Patient: TERE HARTMANN Exam Date: 02/11/2022 : 1940 Gender:F Ordering : DR RODRICK BUTLER M.D. Admission #: [id number] Family : Order #: [id number] CLICK HERE TO VIEW EXAM RADIOLOGY REPORT [...] DEFECT: LOCATION: Mid-anterior. Mid-anteroseptal. Mid-anterolateral. Apical anterior. [place]. SIZE: Large (5 or more segments). SEVERITY: [...] low ejection fraction, 39%. Dictated by: Louis Diego M.D. on 02/11/2022 at 14:35 Approved by: Louis Diego M.D. on 02/11/2022 at 14:41 Normal [facility] Vital Signs Date Time Vital Sign Value Performing Clinician Facility 09-22-2022 12:00-0500 Body height 162.56 cm Heather Scally Other [employer] Other 09-22-2022 12:00-0500 Body mass index (BMI) [Ratio] 24.59 kg/m2 Heather Scally Other [employer] Other 09-22-2022 12:00-0500 Body weight 65 kg Heather Scally Other [employer] Other 09-22-2022 12:00-0500 Diastolic blood pressure 76 mm[Hg] Heather Scally Other [employer] Other 09-22-2022 12:00-0500 Respiratory rate 18 /min Heather Scally Other [employer] Other 09-22-2022 12:00-0500 SaO2% (BldA) [Mass fraction] 100 % Heather Scally Other [employer] Other 09-22-2022 12:00-0500 Systolic blood pressure 136 mm[Hg] Heather Scally Other [employer] Other 05-11-2022 11:34-0400 Body temperature 97.3 [degF] II Rodrick Butler Work Phone: [facility] [place] 05-11-2022 11:34-0400 Diastolic blood pressure 75 mm[Hg] II Rodrick Butler Work Phone: [facility] [place] 05-11-2022 11:34-0400 Heart rate 78 /min II Rodrick Butler Work Phone: [facility] [place] 05-11-2022 11:34-0400 Respiratory rate 20 /min II Rodrick Butler Work Phone: [facility] [place] 05-11-2022 11:34-0400 SaO2% (BldA) [Mass fraction] 95 % II Rodrick Butler Work Phone: [facility] [place] 05-11-2022 11:34-0400 Systolic blood pressure 122 mm[Hg] II Rodrick Butler Work Phone: [facility] [place] 05-11-2022 06:00-0400 Body weight 69 kg II Rodrick Butler Work Phone: [facility] [place] 05-09-2022 09:40-0400 Body height 170.18 cm II Rodrick Butler Work Phone: [facility] [place] Encounters Encounter Date Encounter Type Care Provider Facility Start: 09-17-2023 End: 09-17-2023 ambulatory RODRICK BUTLER Not Available Start: 09-16-2023 End: 09-16-2023 ambulatory ABBIE CRISOSTOMO [facility] Start: 09-09-2023 Evaluation and manag ement of inpatient [facility] Start: 09-09-2023 Evaluation and manag ement of inpatient [facility] Start: 09-08-2023 Evaluation and manag ement of inpatient [facility] Start: 09-08-2023 Evaluation and manag ement of inpatient [facility] Start: 09-08-2023 Evaluation and manag ement of inpatient [facility] Start: 09-07-2023 End: 09-09-2023 Evaluation and management of inpatient MIKALA STAHL [facility] Start: 09-07-2023 End: 09-07-2023 Evaluation and management of inpatient CODY FORDE [facility] Start: 08-13-2023 End: 08-13-2023 ambulatory RODRICK BUTLER Not Available Start: 07-29-2023 End: 07-29-2023 ambulatory RODRICK BUTLER Not Available Start: 06-03-2023 End: 06-03-2023 ambulatory EHAB ELTAHAWY [facility] Start: 12-17-2022 End: 12-17-2022 ambulatory ABBIE CRISOSTOMO [facility] Start: 11-24-2022 End: 11-24-[address] RODRICK BUTLER Facility:[facility] Start: 09-29-2022 End: 09-30-[address] RODRICK BUTLER Facility:[facility] Start: 09-22-2022 (New DM) [facility] Start: 09-22-2022 End: 09-23-2022 [facility]ulatory [facility] [employer] Other Start: 08-28-2022 End: 08-29-[address] RODRICK BUTLER Facility:[facility] Start: 08-18-2022 End: 08-19-[address] RODRICK BUTLER Facility:[facility] Start: 06-11-2022 End: 06-12-[address] RODRICK BUTLER Facility:[facility] Start: 06-06-2022 End: 06-06-2022 ambulatory REJI CARLOS Facility:[facility] Start: 05-11-2022 ambulatory Itz ABDIuinn II Faci lity:[id number] Start: 05-10-2022 ambulatory Itz MCGuinn II Faci lity:[id number] Start: 05-09-2022 ambulatory Itz MCGuinn II Faci lity:[id number] Start: 05-09-2022 End: 05-11-2022 Evaluation and management of inpatient CHANDA Butler Work Phone: [facility] Start: 05-09-2022 End: 05-09-2022 ambulatory Itz ABDIuinn II Facility:[id number] Start: 05-02-2022 Encounter for other preprocedural examination ABBIEIRVING CRISOSTOMO [facility] Start: 05-02-2022 Encounter for preprocedural laboratory examination ABBIE CRISOSTOMO [facility] Start: 05-01-2022 End: 05-02-[address] RODRICK BUTLER Facility:[facility] Start: 05-01-2022 End: 05-02-2022 Encounter for other preprocedural examination DR RODRICK BUTLER Facility:[facility] Start: 04-21-2022 End: 04-22-2022 ambulatory RODRICK BUTLER Facility:[facility] Start: 04-18-2022 End: 04-19-2022 ambulatory ABBIE CRISOSTOMO Facility:[facility] Start: 03-12-2022 End: 03-13-2022 ambulatory ABBIE CRISOSTOMO Facility:[facility] Start: 03-07-2022 End: 2022 ambulatory RODRICK BUTLER Facility:[facility] Start: 03-01-2022 End: 03-02-2022 ambulatory ABBIE CRISOSTOMO Facility:[facility] Start: 02-11-2022 End: 02-12-[address] LOAIZAEL BUTLER Facility: Procedures Date Procedure Procedure Detail Performing Clinician Start: 12-17-2022 Follow-up visit Follow-up ABBIEIRVING CRISOSTOMO Plan of Treatment Date Care Activity Detail Author Start: 05-11-2022 [facility] Work Phone: Start: 05-09-2022 Hospital admission [facility] Work Phone: Start: 05-09-2022 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 2.647 1940 Unknown [id number] 2..840.1.618610.3.579. 2.647 1940 Unknown [id number] 2..840.1.477490.3.579. 2.356 1940 Unknown [id number] 2.16.840.1.859615.3.579. 2.356 1940 Unknown [id number] 2.16840.1.235964.3.579. 2.356 1940 Unknown [id number] 2..840.1.160888.3.579. 2.356 1940 Unknown [id number] 2.840.1.808302.3.579. 2.593 1940 Unknown [id number] 2.840.1.131190.3.579. 2.593 1940 Unknown [id number] 2.840.1.419073.3.579. 2.593 1940 Unknown [id number] 2.840.1.881683.3.579. 2.593 1940 Unknown [id number] 2.840.1.147780.3.579. 2.593 1940 Unknown [id number] 2.840.1.390144.3.579. 2.59 1940 Unknown [id number] 2.840.1.797511.3.579. 2.593 1939 Unknown [id number] .84.1.602920.3.579. 2.593 1939 Unknown [id number] 2.840.1.178469.3.579. 2.593 1939 Unknown [id number] 2.840.1.433566.3.579. 2.593 1939 Unknown [id number] 2.840.1.274889.3.579. 2.593 1939 Unknown [id number] 2.840.1.524866.3.579. 2.593 1939 Unknown [id number] 2.840.1.285270.3.579. 2.593 1940 Unknown [id number] 2.16.840.1.781335.3.579. 2.1259 1940 Unknown [id number] 2.16.840.1.183920.3.579. 2.1259 1940 Unknown [id number] 2.16.840.1.613652.3.579. 2.1259 Private Health Insurance [id number] Unknown Equitable Insurance-[facility] [id number] Unknown [id number] 2.16.840.1.524946.3.579. 2.531 Social History Date Type Detail Facility Start: 05-09-2022 Tobacco smoking status NHIS Never smoked tobacco (finding) [facility] [place] Start: 1940 Sex Assigned At Female F [facility] Sex Assigned At Sex Assigned At Bir th [place] [facility] Other Medical Equipment Procedure Code Equipment Code Equipment Origin al Text Equipment Identifier Dates Accu-Chek Briana Test Strip Start: 01-18-2013 Goals Date Patient Goal Desired Activity /State Functional Status Date Assessment Result Facility 05-11-2022 Functional status Patient at Baseline [facility] Work Phone: Mental Status Date Assessment Result Facility 05-11-2022 Cognitive function Cognitive Sta tus Patient at Baseline [facility] Work Phone: Clinical Notes 03-31-2022 to 09-16-2023 Note Date & Type Note Facility 09-16-2023 Note Incision healing wel l- no s/s of distress and RTC at 1 month for device interrogation [facility] 09-16-2023 Note UTP CARDIOLOGY PROGR ESS NOTE HPI: Tere Hartmann is a 83 y.o. female here for wound check HPI 83 yo female presents to clinic for wound check s/p recent ventricular lead reposition. Currently pt denied chest pain, SOB, orthopnea, palpitations, fever, chills, N/V/D. 09/07/23 Conclusion DUAL CHAMBER PACEMAKER IMPLANT PROCEDURE NOTE DATE OF PROCEDURE: 09/07/23 PERFORMING PHYSICIAN: Dr. Cody Forde CONSENT: Patient LOCATION: EP Lab PROCEDURE PERFORMED: 1. Implantation of pacemaker (Biotronik) 2. Ultrasound guided venous access INDICATIONS: 1. 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 Symptomatic bradycardia with VR 38bpm 09/08/23 Conclusion Indications for ventricular lead repositioning: The patient is a 83-year-old woman who was having intermittent complete heart block who underwent permanent pacemaker implantation. However the ventricular lead dislodged And retracted into the atrium. We will reposition the ventricular lead in its proper position today. Review of Systems Constitutional: Negative. Respiratory: Negative. Cardiovascular: Negative. Neurological: Positive for dizziness and light-headedness. All other systems reviewed and are negative. Visit Vitals OB Status Postmenopausal Smoking Status Never Allergies Allergen Reactions Sulfa (Sulfonamide Antibiotics) Swelling Empagliflozin Pt gets yeast infections when taking this medication Medications: Current Outpatient Medications on File Prior to Visit Medication Sig Dispense Refill acetaminophen (Tylenol) 325 mg tablet Take 2 tablets (650 mg) by mouth every 6 (six) hours if needed for mild pain (1-3 pain score) ((1-3)). 30 tablet 0 aspirin 81 mg chewable tablet Chew 1 tablet every day by oral route for 90 days. atorvastatin (Lipitor) 80 mg tablet Take 80 mg by mouth at bedtime. cyproheptadine (Periactin) 4 mg tablet Take 2 mg by mouth at bedtime. dapagliflozin (Farxiga) 10 mg Take 1 tablet (10 mg) by mouth once daily as directed. 30 tablet 3 doxycycline (Vibramycin) 100 mg capsule Take 1 capsule (100 mg) by mouth in the morning and at bedtime for 26 doses. Take with at least 8 ounces (large glass) of water, do not lie down for 30 minutes after 26 capsule 0 Lantus Solostar U-100 Insulin 100 unit/mL (3 mL) pen Inject 10 Units under the skin in the morning and at bedtime. 10 units in PM 15 units in AM sacubitriL-valsartan (Entresto) 24-26 mg tablet Take 1 tablet by mouth in the morning and at bedtime. 60 tablet 3 traMADol (Ultram) 50 mg tablet Take 1 tablet (50 mg) by mouth every 8 (eight) hours if needed for severe pain (8-10 pain score). 5 tablet 0 [DISCONTINUED] carvedilol (Coreg) 12.5 mg tablet Take 1 tablet (12.5 mg) by mouth with breakfast and with evening meal. 60 tablet 0 No current facility-administered medications on file prior to visit. Physical Exam: Constitutional: Appearance: Normal appearance. Without apparent distress Skin: General: Skin is warm and dry. Lt upper chest incision well approximated and healing well, no S/S of infection, no hematoma or ecchymosis noted Capillary Refill: Capillary refill takes less than 2 seconds. Neurological: General: No focal deficit present. Mental Status: She is alert and oriented to person, place, and time. Psychiatric: Mood and Affect: Mood normal. Behavior: Behavior normal. Thought Content: Thought content normal. Judgment: Judgment normal. Labs: Last lab values have been reviewed CV Testing: Transthoracic echo (TTE) complete Result Date: 09/08/2023 1 1 [facility] Heart Station [address] [place] [address] [phone] (fax) Echocardiogram-[facility] Name: TERE HARTMANN Study Date: 09/08/2023 09:30 AM B/P: 140 mmHg/51 mmHg HR: Date of : 1940 Location: [facility] Height: 67 in. Age: 83 year(s) Patient Room: 3170 Weight: 158 lb. Gender: Female Patient Status: InPt BSA: 1.83 m2 Indication: Bradycardia, S/P Pacemaker 09/07/2023 Examination: Echocardiogram (Complete) Image Quality: Fair Patient Consent: Procedure explained to patient Conclusions Left Ventricle: The left ventricle is normal size. Global left ventricular systolic function is normal. The EF is 55 % visually. Left ventricular wall thickness is normal. The septum is abnormal in its motion; maybe due to pacemaker. Unable to assess diastolic dysfunction. Concentric cardiac remodeling. Right Ventricle: The right ventricle is normal in size. Normal right ventricular systolic function. Unable to assess right sided pressures due to lack of measurable tricuspid regurgitation. Left Atrium: The left atrium is normal in size. Overall Conclusions: No significant valvular abnormalities Measurements Left Ventricle Label Value Normal Value LVOT PGmax 3 mmHg LVEF visual 55 % LVDd, 2D 3.97 cm (3.9cm - 5.3cm) LVDs, 2D 2.61 cm (2.1cm - 4cm) IVSd, 2D 1 cm (0.6cm - 1.1cm) LVPWd, 2D 0.85 cm (0.6cm - 0.9cm) LV Mass, 2D (more content not included)... [facility] 09-09-2023 Note [facility] CARDIOLOGY INPAT IENT PROGRESS NOTE Reason for follow up: 2:1 HB, Symptomatic bradycardia s/p DC PPM 09/07/23 with failed RV lead, needing revision performed 09/08/23 Subjective Evaluated at bedside, good spirits, left pectoral pocket is tender. Has not been OOB. No dizziness, SOB, CP. . Reviewed dc instructions for ROM, lifting, bathing and will be printed with AVS. Tele: AV 100% paced ALLERGIES Allergies Allergen Reactions Sulfa (Sulfonamide Antibiotics) Swelling Empagliflozin Pt gets yeast infections when taking this medication CURRENT MEDS atorvastatin, 80 mg, oral, Nightly cyproheptadine, 2 mg, oral, Nightly dapagliflozin propanediol, 10 mg, oral, Once Daily doxycycline, 100 mg, oral, BID insulin aspart, 0-20 Units, subcutaneous, TID with meals And insulin aspart, 0-20 Units, subcutaneous, Nightly sacubitril-valsartan, 1 tablet, oral, BID PRN medications: acetaminophen, glucose OR dextrose 50 % in water (D50W), melatonin, traMADol Objective Patient Vitals for the past 24 hrs: BP Temp Temp src Pulse Resp SpO2 Weight 09/09/23 0739 146/62 36.1 ???C (97 ???F) Temporal 85 -- 94 % -- 09/09/23 0426 -- -- -- -- -- -- 66.4 kg (146 lb 6.2 oz) 09/09/23 0400 130/56 -- -- 77 20 95 % -- 09/09/23 0002 133/67 -- -- 78 20 -- -- 09/08/23 2131 154/65 -- -- 87 -- -- -- 09/08/231999 154/65 36 ???C (96.8 ???F) Temporal 87 20 95 % -- 09/08/23 1615 -- -- -- -- -- 96 % -- 09/08/23 1600 165/61 -- -- 79 16 91 % -- 09/08/23 1500 136/70 -- -- 81 14 98 % -- 09/08/23 1430 133/56 -- -- 77 14 90 % -- 09/08/23 1420 124/59 -- -- 75 20 96 % -- 09/08/23 1400 (!) 141/47 -- -- 67 19 94 % -- 09/08/23 1345 151/65 -- -- 71 17 98 % -- 09/08/23 1330 142/57 -- -- 70 15 97 % -- 09/08/23 1320 140/57 -- -- 72 18 -- -- 09/08/23 1158 -- -- -- -- -- 100 % -- 09/08/23 1158 156/65 -- -- 68 16 100 % -- BP 146/62 (BP Location: Right arm, Patient Position: Lying) Pulse 85 Temp 36.1 ???C (97 ???F) (Temporal) Resp 20 Ht 1.702 m (5' 7.01 ) Wt 66.4 kg (146 lb 6.2 oz) SpO2 94% BMI 22.92 kg/m??? Wt Readings from Last 3 Encounters: 09/09/23 66.4 kg (146 lb 6.2 oz) 06/03/23 69.4 kg (153 lb) 12/17/22 69 kg (152 lb 3.2 oz) General: Awake, alert, appropriate mood / affect, NAD Eyes: anicteric sclera. Non-injected conjunctiva. No xanthelasmas Neck: No elevated JVP. No carotid bruit Pulm: Breath sounds clear to ascultation bilaterally with no wheeze, crackles or rhonchi Cards: HR irreg, NL S1, S2. No S3 or S4 gallop. Murmur: none Abd: Soft, Nontender, physiologic bowel sounds are present Extr: Lower extremity edema: none. DP pulses present bilaterally Skin: warm, dry, well perfused. Left pectoral incision with occlusive dressing, mild erythema/ecchymosis no hematoma. Tender to touch. Neuro: A&Ox3, No gross deficits Lab Results Component Value Date NA 134 (L) 09/09/2023 K 5.0 09/09/2023 CL 103 09/09/2023 ANIONGAP 15 09/09/2023 BUN 22 09/09/2023 CREATININE 0.95 09/09/2023 CALCIUM 10.1 09/09/2023 MG 1.7 (L) 09/09/2023 No results found for: BILITOT , BILIDIR , ALKPHOS , AST , ALT , PROT , ALBUMIN No results found for: CHOLESTEROL , CHOLESTEROL TOTAL , TRIGLYCERIDES , HDL , LDL CHOLESTEROL , LDL DIRECT , LDL CALC No results found for: BNP No results found for: THYROID , TSH , FREE T4 No results found for: DIGOXIN LVL No results found for: HGBA1C Lab Results Component Value Date WBC 9.41 09/09/2023 RBC 5.07 (H) 09/09/2023 HGB 13.3 09/09/2023 HCT 42.5 09/09/2023 MCV 83.8 09/09/2023 MCH 26.2 (L) 09/09/2023 MCHC 31.3 (L) 09/09/2023 RDW 14.4 09/09/2023 PLT 220 09/09/2023 XR chest 2 views Result Date: 09/09/2023 Impression: *No pneumothorax. Please see the above discussion.. Electronically signed: Jacqueline Kendrick. CV Testing: Encounter Date: 09/07/23 Electrocardiogram, 12-lead Result Value Ventricular Rate 76 Atrial Rate 76 UT Interval 226 QRS DURATION 164 QT Interval 456 QTC CALCULATION(BAZETT) 513 P [facility] 63 R-[facility] -77 T Wave [facility] 92 Impression Atrial-sensed ventricular-paced rhythm with prolonged AV conduction Abnormal ECG When compared with ECG of 08-SEP-2023 07:00, Electronic ventricular pacemaker has replaced Sinus rhythm 09/08/23 EP : RV Lead repositioning Replacement of dislodged ventricular lead Fluoroscopy Conscious sedation 09/08/23 TTE ECHO: Left Ventricle: The left ventricle is normal size. Global left ventricular systolic function is normal. The EF is 55 % visually. Left ventricular wall thickness is normal. The septum is abnormal in its motion; maybe due to pacemaker. Unable to assess diastolic dysfunction. Concentric cardiac remodeling. Right Ventricle: The right ventricle is normal in size. Normal right ventricular systolic function. Unable to assess right sided pressures due to lack of measurable tricuspid regurgitation. Left Atrium: The left atrium is normal in siz (more content not included)... [facility] 09-09-2023 Note Hospital Medicine Discharge Summary Final Discharge Diagnosis: Symptomatic bradycarida s/p PPM 09/07/23 with failed RV lead s/p PPM lead revision 09/08/23 Admission Diagnosis: Heart block [I45.9] Hospital course: Tere Hartmann is an 83 y.o. female with past medical history of CAD s/p PCI with stenting, CHF, DM2, hypertension, hyperlipidemia presents as a direct admission from [facility] with dizziness on 09/07/23 to [facility]. Per report, patient presented to [facility] on 09-04-2023 due to dizziness and was found to be bradycardic in the 30s. Patient is on Coreg at home and this was held for 3 days without improvement in symptoms. She was then found to have second-degree AV block Mobitz type II and was transferred to [facility] for pacemaker placement. Patient underwent dual chamber pacemaker placement on 09/07/2023. Patient to be admitted to the hospitalist team overnight for observation post procedure. On 09/08, it was determined that lead had been dislodged and patient returned to slab stripper for revision of pacemaker lead. She was able to discharge home on 09/09/23. She is to resume her coreg as previously prescribed. Doxycycline ordered for infection prevention, per cardiology recommendations. Pain medication tramadol ordered as needed. Activity restrictions to left arm as instructed to patient. No driving for 4 weeks. No showers for 1 week. She will follow up with Cardiology in clinic for wound/device check as scheduled. Dressing to remain over the incision until follow up appointment. #Second-degree AV block Mobitz type II, s/p PPM implantation on 09/07/23 -ventricular lead dislodged and required Return to slab stripper for lead revision procedure on 09/08/23 -interrogation of device, EKG, and CXR confirm Pacemaker lead in place and pacemaker working properly on 09/09/23 -discharged home on 09/09/23 Chronic diseases (POA): #Chronic systolic heart failure, NYHA class II, compensated #CAD s/p PCI with stenting #DM2 #Hypertension, continue home medications #Hyperlipidemia, continue home medications Dear Dr. Luke MD, Tere is advised to follow up with you within 1-2 weeks. Follow-up with: Cardiology Scheduled appointments: Future Appointments Date Time Provider Department Center 09/16/2023 11:20 AM Abbie Crisostomo NP [facility] Your medication list START taking these medications Instructions Last Dose Given Next Dose Due acetaminophen 325 mg tablet Commonly known as: Tylenol Take 2 tablets (650 mg) by mouth every 6 (six) hours if needed for mild pain (1-3 pain score) ((1-3)). doxycycline 100 mg capsule Commonly known as: Vibramycin Take 1 capsule (100 mg) by mouth in the morning and at bedtime for 26 doses. Take with at least 8 ounces (large glass) of water, do not lie down for 30 minutes after traMADol 50 mg tablet Commonly known as: Ultram Take 1 tablet (50 mg) by mouth every 8 (eight) hours if needed for severe pain (8-10 pain score). CONTINUE taking these medications Instructions Last Dose Given Next Dose Due aspirin 81 mg chewable tablet atorvastatin 80 mg tablet Commonly known as: Lipitor carvedilol 12.5 mg tablet Commonly known as: Coreg Take 1 tablet (12.5 mg) by mouth with breakfast and with evening meal. cyproheptadine 4 mg tablet Commonly known as: Periactin dapagliflozin propanediol 10 mg Commonly known as: Farxiga Take 1 tablet (10 mg) by mouth once daily as directed. Entresto 24-26 mg tablet Generic drug: sacubitril-valsartan Take 1 tablet by mouth in the morning and at bedtime. Lantus Solostar U-100 Insulin 100 unit/mL (3 mL) injection pen Generic drug: insulin glargine Where to Get Your Medications These medications were sent to [id number] - [place], [place] - [address] [place] [address] carvedilol 12.5 mg tablet doxycycline 100 mg capsule traMADol 50 mg tablet Information about where to get these medications is not yet available Ask your nurse or doctor about these medications acetaminophen 325 mg tablet Tere is allergic to sulfa (sulfonamide antibiotics) and empagliflozin. Disposition: Home or Self Care Discharge Condition: Stable Code Status: Prior Diagnostic Results Hematology: Results from last 7 days Lab Units 09/09/23 0513 09/08/23 1335 WBC AUTO 10*3/uL 9.41 6.99 HEMOGLOBIN g/dL 13.3 13.4 HEMATOCRIT % 42.5 42.3 MCV fL 83.8 84.3 PLATELETS AUTO 10*3/uL 220 177 Chemistry: Results from last 7 days Lab Units 09/09/23 0513 09/08/23 1335 SODIUM mmol/L 134* 133* POTASSIUM mmol/L 5.0 4.7 CHLORIDE mmol/L 103 108* CO2 mmol/L 21 20* BUN mg/dL 22 22 CREATININE mg/dL 0.95 0.97 GLUCOSE mg/dL 149* 127* MAGNESIUM mg/dL 1.7* -- CALCIUM mg/dL 10.1 9.3 No lab exists for component: AFIO2 , APHT , APCOT , APOT , ATCO2 , CK , ALB , IBILI Test Results Pending At Discharge: Diet at the time of discharge: regul (more content not included)... [facility] 09-08-2023 Note 09/08/23 1423 Referral Data Referral Source drug abuse social worker (Screened via [facility]UC) Patient Information Primary Caregiver Self Activities of Daily Living Assistive Device Other (Comment) (Has DME, does not use) Living Arrangement (Current/Prior to Hospitalization) Private residence Communication Talks;Understands speaking;Understands Monegasque Discharge Planning Type of Residence/Post Acute Needs Private residence Will patient need Precert for Post Acute needs? No Patient's goal for discharge Patient's goal for discharge is to return home Screened via RUC. Patient is from home, alone. Patient has DME, but reports that she does not utilize it. Patient has a history of SNF and HHC, and reports no interest in being connected with either for discharge. Patient reports goal for discharge as returning home. No further OTM needs at this time. [facility] 09-08-2023 Note 09/08/23 1406 Admission Assessment Questions Verify insurance with patient Yes Do you understand medical disease or what brought you into the hospital? Yes Who is your current PCP? Rodrick Butler MD Can I schedule a follow up appointment for you at the time of discharge? No (has existing appt. 09/17, 09/22.) Do you understand why you are taking your current medications? Yes Are you taking your medications as prescribed? Yes Did patient provide teach back? Yes Would you like use our pharmacy [facility] to fill your new medications at the time of Discharge? Yes Does the patient have a assistant case manager assigned to them through their insurance? No Living Arrangement (Current/Prior to Hospitalization) Private residence (lives at home alone) Does the patient have history of HHC or SNF? Yes Assistive Device Walker;Cane (patient stated she has DME at home but does not use it) Patient's goal for discharge Discharge home Was patient reminded that goal for discharge is 11am? Yes Does the patient have transportation at discharge? Yes Type of Residence/Post Acute Needs Private residence Is PT/OT appropriate? No Is PT/OT ordered? No Is SW consult appropriate? No Is SW consult ordered? No Do you understand the benefits of MyChart? Yes Were you able to send link and activate MyChart? Yes (link sent, mychart pending) [facility] 09-08-2023 Note Hospital Medicine Daily Progress Note - 09/08/2023 1:43 PM; Room: [address] [place] [address] Admission: 09/07/2023 7:38 PM; Length of stay: 1 days THE HOSPITALIST TEAM PREFERS TO USE [employer] CHAT FOR COMMUNICATION 7AM-7PM. IF I DO NOT RESPOND WITHIN 15 MINUTES, PLEASE PAGE ME/CALL THROUGH THE MELTER LOADER. FROM 7PM-7AM, PLEASE PAGE [phone](COVR) Code Status: Full Code Barriers to Discharge: lead revision today Expected Discharge Date: tomorrow Discharge Destination: home Overview Patient is seen for evaluation and management of heart block s/p ppm, lead revision. Subjective Patient examined at bedside after procedure today. Taken for revision of PPM lead as it was found to be dislodged this morning. Patient currently denies pain, SOB, n/v, subjective fevers. Family at bedside. Physical Exam Visit Vitals BP 156/65 Pulse 68 Temp 36.6 ???C (97.9 ???F) (Temporal) Resp 16 Intake/Output Summary (Last 24 hours) at 09/08/2023 1343 Last data filed at 09/08/2023 1308 Gross per 24 hour Intake 495.58 ml Output 5 ml Net 490.58 ml Physical Exam Vitals and nursing note reviewed. Constitutional: General: She is not in acute distress. Appearance: Normal appearance. She is not ill-appearing. HENT: Head: Normocephalic and atraumatic. Right Ear: External ear normal. Left Ear: External ear normal. Nose: Nose normal. Mouth/Throat: Mouth: Mucous membranes are moist. Pharynx: Oropharynx is clear. Eyes: Extraocular Movements: Extraocular movements intact. Conjunctiva/sclera: Conjunctivae normal. Pupils: Pupils are equal, round, and reactive to light. Cardiovascular: Rate and Rhythm: Normal rate and regular rhythm. Pulses: Normal pulses. Heart sounds: Normal heart sounds. Pulmonary: Effort: Pulmonary effort is normal. No respiratory distress. Breath sounds: Normal breath sounds. Abdominal: General: Bowel sounds are normal. There is no distension. Palpations: Abdomen is soft. Tenderness: There is no abdominal tenderness. Musculoskeletal: General: No swelling. Normal range of motion. Arms: Cervical back: Neck supple. Skin: General: Skin is warm and dry. Capillary Refill: Capillary refill takes less than 2 seconds. Neurological: General: No focal deficit present. Mental Status: She is alert and oriented to person, place, and time. Mental status is at baseline. Psychiatric: Attention and Perception: Attention normal. Mood and Affect: Mood normal. Speech: Speech normal. Behavior: Behavior normal. Behavior is cooperative. Estimated body mass index is 24.89 kg/m??? as calculated from the following: Height as of this encounter: 1.702 m (5' 7.01 ). Weight as of this encounter: 72.1 kg (158 lb 15.2 oz). Active Inpatient Problems Principal Problem: Heart block Active Problems: Coronary artery disease involving kaw coronary artery of kaw heart Chronic systolic heart failure (CMS/HCC) Mixed hyperlipidemia Diabetes mellitus (CMS/HCC) Benign essential hypertension Heart block atrioventricular Assessment and Plan Tere Hartmann is an 83 y.o. female with past medical history of CAD s/p PCI with stenting, CHF, DM2, hypertension, hyperlipidemia, presents as a direct admission from [facility] with dizziness and found to have heart block at which time she was sent to [facility] for further treatment. Per report, patient presented to [facility] on 09-04-2023 due to dizziness and was found to be bradycardic in the 30s. #Second-degree AV block Mobitz type II, s/p PPM implantation on 09/07/23 -noted on follow up imaging today that the ventricular lead had been dislodged. Returned to slab stripper for lead revision procedure today, 09/08/23 -plan for CXR in am on 09/09 to ensure maintained correct placement of leads -Pain management as needed -Cardiology consult, appreciate recommendation and assistance #Chronic systolic heart failure, NYHA class II, compensated #CAD s/p PCI with stenting (POA) #DM2, ISS, ACHS #Hypertension, continue home medications #Hyperlipidemia, continue home medications Nutrition Screen VTE Prophylaxis: Contraindicated due to procedure today Scheduled Meds atorvastatin, 80 mg, oral, Nightly cyproheptadine, 2 mg, oral, Nightly dapagliflozin propanediol, 10 mg, oral, Once Daily doxycycline, 100 mg, oral, BID insulin aspart, 0-20 Units, subcutaneous, TID with meals And insulin aspart, 0-20 Units, subcutaneous, Nightly sacubitril-valsartan, 1 tablet, oral, BID Pertinent Investigations Hematology: No lab exists for component: PCAL1 , LACTICACID , ESR Chemistry: No lab exists for component: AFIO2 , APHT , APCOT , APOT , ATCO2 , CK , ALB , IBILI Results from last 7 days Lab Units 09/08/23 1105 09/08/23 0702 09/07/23 2311 09/07/232008 POCT GLUCOSE mg/dL 143* 136* 169* 70 Historical Values: (Includes values prior to this admission) No results found for: PREALBUMIN , TSH , T3FREE , FREET4 , CO (more content not included)... [facility] 09-08-2023 Note dications for ventri cular lead repositioning: The patient is a 83-year-old woman who was having intermittent complete heart block who underwent permanent pacemaker implantation. However the ventricular lead dislodged And retracted into the atrium. We will reposition the ventricular lead in its proper position today. Procedure: After written informed consent was obtained she was brought to the pacemaker laboratory in the fasting state. A contrast injection for venography of the upper extremity was performed to determine if the left subclavian was still patent and could be used. The left subclavicular fossa was prepped and draped in usual manner and 1% Xylocaine solution infiltrated for local anesthesia. As a precaution it was determined that we should access the left subclavian in case the new lead had to be placed and this was done by percutaneous technique with a guidewire being advanced to the level of the end inferior vena cava to ensure intervascular placement. Then following initial sharp incision meticulous blunt dissection was employed to open the subfascial pocket where in the device lie. It was explanted and the ventricular lead disconnected from the pulse generator. Via a series of stylette's the active-fixation coil of the ventricular lead was retracted and the lead was fluoroscopically guided into a new position in the right ventricular apical region. The active-fixation coil was deployed and the lead was sutured into place with an 0 silk suture. It was connected back into the Biotronik dual-chamber pacemaker system. Via off field telemetry adequate sensing and pacing levels were determined. The right ventricular lead in its new position had a pacing threshold of 0.8 V at 0.4 ms pulse width. The R wave amplitude was 11.9 mV and the impedance was 741 ohms. The atrial lead had a pacing threshold of 0.8 V at 0.4 ms pulse with a P wave amplitude of 3 mV and impedance of 546 ohms. The pacemaker was repositioned in the existing pocket and sutured into place with an 0 silk suture. The pocket was irrigated with an antibiotic solution and the fascial layer closed with a continuous 2-0 Vicryl suture. The subdermal area was then closed with interrupted 3-0 Biosyn sutures placed utilizing a buried knot technique. The skin surface was closed with Dermabond glue and the wound was dressed with a Telfa pad and Tegaderm dressing. Sponge and needle counts were correct at the end of the case. The access line that was placed initially was removed.Conscious sedation was maintained throughout the case with intravenous midazolam and fentanyl. Prior to the procedure she received 1 g of intravenous vancomycin as antibiotic prophylaxis. She was returned to the holding area in stable hemodynamic condition. Impressions: Replacement of dislodged ventricular lead Fluoroscopy Conscious sedation Shamika Hutchins M.D. [facility] Exercise Instructorderrick worker well service and Pediatrics Director: Cardiac Electrophysiology Program [facility] 09-08-2023 Note Patient: Tere Christopher idd Procedure Information Date/Time: 09/08/23 1125 Procedure: Pacemaker lead revision Location: [facility] STEEPING PRESS OPERATOR 1 EP / [facility] VASCULAR LAB (Cath) Providers: Shamika Hutchins MD Clinical information reviewed: Allergies Meds Physical Exam Airway Mallampati: III Neck ROM: full Cardiovascular Rhythm: regular Dental Pulmonary - normal exam Abdominal - normal exam Abdomen: soft Anesthesia Plan ASA 3 other (Conscious sedation) intravenous induction Anesthetic plan and risks discussed with patient. Use of blood products discussed with patient who consented to blood products. Plan discussed with attending and fellow. Additional Equipment Requests [facility] 09-08-2023 Note [facility]TP CARDIOLOGY INPAT IENT PROGRESS NOTE Reason for follow up: 2:1 HB, Symptomatic bradycardia s/p DC PPM with failed RV lead, needing revision Subjective Evaluated at bedside before left for RV lead revision. Says feeling better, has not been OOB. No dizziness, SOB, CP. Dr. Hutchins will reposition lead today. Reviewed dc instructions for ROM, lifting, bathing and will be printed with AVS. Tele: intermittent complete HB and 2:1 conduction, with pacer spikes w/o capture; noted since returned to unit 09/07/23 PM. ALLERGIES Allergies Allergen Reactions Sulfa (Sulfonamide Antibiotics) Swelling Empagliflozin Pt gets yeast infections when taking this medication CURRENT MEDS atorvastatin, 80 mg, oral, Nightly cyproheptadine, 2 mg, oral, Nightly dapagliflozin propanediol, 10 mg, oral, Once Daily insulin aspart, 0-20 Units, subcutaneous, TID with meals And insulin aspart, 0-20 Units, subcutaneous, Nightly sacubitril-valsartan, 1 tablet, oral, BID PRN medications: acetaminophen, glucose OR dextrose 50 % in water (D50W), melatonin, traMADol Objective Patient Vitals for the past 24 hrs: BP Temp Temp src Pulse Resp SpO2 Height Weight 09/08/23 0502 -- -- -- -- -- -- -- 72.1 kg (158 lb 15.2 oz) 09/08/23 0400 126/51 -- -- 58 19 (!) 89 % -- -- 09/08/23 0000 (!) 122/45 37 ???C (98.6 ???F) -- (!) 48 23 93 % -- -- 09/07/23 2200 (!) 155/48 -- -- 55 21 94 % -- -- 09/07/23 2130 (!) 158/44 -- -- 51 (!) 27 97 % -- -- 09/07/232099 (!) 149/44 36.8 ???C (98.2 ???F) Temporal 66 22 91 % 1.702 m (5' 7.01 ) 72.4 kg (159 lb 9.8 oz) 09/07/232029 144/64 -- -- 53 24 96 % -- -- 09/07/232008 -- -- -- -- -- -- -- 72.4 kg (159 lb 9.8 oz) 09/07/231999 (!) 135/37 -- -- 86 20 98 % -- -- 09/07/23 1945 163/66 -- -- 72 19 94 % -- -- BP 126/51 Pulse 58 Temp 37 ???C (98.6 ???F) Resp 19 Ht 1.702 m (5' 7.01 ) Wt 72.1 kg (158 lb 15.2 oz) SpO2 (!) 89% BMI 24.89 kg/m??? Wt Readings from Last 3 Encounters: 09/08/23 72.1 kg (158 lb 15.2 oz) 06/03/23 69.4 kg (153 lb) 12/17/22 69 kg (152 lb 3.2 oz) General: Awake, alert, appropriate mood / affect, NAD Eyes: anicteric sclera. Non-injected conjunctiva. No xanthelasmas Neck: No elevated JVP. No carotid bruit Pulm: Breath sounds clear to ascultation bilaterally with no wheeze, crackles or rhonchi Cards: HR irreg, NL S1, S2. No S3 or S4 gallop. Murmur: none Abd: Soft, Nontender, physiologic bowel sounds are present Extr: Lower extremity edema: none. DP pulses present bilaterally Skin: warm, dry, well perfused Neuro: A&Ox3, No gross deficits No results found for: NA , K , CL , BICARB , ANIONGAP , BUN , CREATININE , CALCIUM , MG , PHOS No results found for: BILITOT , BILIDIR , ALKPHOS , AST , ALT , PROT , ALBUMIN No results found for: CHOLESTEROL , CHOLESTEROL TOTAL , TRIGLYCERIDES , HDL , LDL CHOLESTEROL , LDL DIRECT , LDL CALC No results found for: BNP No results found for: THYROID , TSH , FREE T4 No results found for: DIGOXIN LVL No results found for: HGBA1C No results found for: WBC , ADJUSTEDWBC , RBC , HGB , HCT , MCV , MCH , MCHC , RDW , MPV , NEUTOPHILPCT , LYMPHOPCT , MONOPCT , EOSPCT , BASOPCT , NEUTROABS , LYMPHSABS , MONOSABS , EOSABS , BASOSABS , PLT , NRBC XR chest 1 view Result Date: 09/08/2023 Satisfactory position of left subclavian pacer with intact wires terminating in the right atrium and right ventricle and no evidence of pneumothorax or acute pathology. Electronically signed: Patricia Collazo. CV Testing: Encounter Date: 09/07/23 ECG 12 lead Result Value Ventricular Rate 74 Atrial Rate 74 UT Interval 220 QRS DURATION 128 QT Interval 432 QTC CALCULATION(BAZETT) 479 P [facility] 29 R-[facility] 21 T Wave [facility] -5 Impression Sinus rhythm with 1st degree A-V block with Premature atrial complexes Right bundle branch block Cannot rule out Anteroseptal infarct (cited on or before 07-MAR-2022) Abnormal ECG When compared with ECG of 07-SEP-2023 17:47, (unconfirmed) Premature atrial complexes are now Present Sinus rhythm is no longer with 2nd degree A-V block (Mobitz II) Questionable change in initial forces of Anteroseptal leads T wave inversion now evident in Inferior lead T wave inversion no longer evident in Anterior leads 09/08/23 EP : RV Lead repositioning Replacement of dislodged ventricular lead Fluoroscopy Conscious sedation 09/08/23 TTE ECHO: Left Ventricle: The left ventricle is normal size. Global left ventricular systolic function is normal. The EF is 55 % visually. Left ventricular wall thickness is normal. The septum is abnormal in its motion; maybe due to pacemaker. Unable to assess diastolic dysfunction. Concentric cardiac remodeling. Right Ventricle: The right ventricle is normal in size. Normal right ventricular systolic function. Unable to assess right sided pressures due to lack o (more content not included)... [facility] 09-07-2023 Note Hospital Medicine History and Physical 09/07/2023 7:47 PM THE HOSPITALIST TEAM PREFERS TO USE [employer] FOR COMMUNICATION 7AM-7PM. IF I DO NOT RESPOND WITHIN 15 MINUTES, PLEASE PAGE ME/CALL THROUGH THE MELTER LOADER. FROM 7PM-7AM, PLEASE PAGE [phone](COVR) Chief Complaint Direct admission from [facility] with AV block, patient S/p pacemaker with our cardio team on 09/07 History of Present Illness Tere Hartmann is an 83 y.o. female who came from home with past medical history of CAD s/p PCI with stenting, CHF, DM2, hypertension, hyperlipidemia presents as a direct admission from [facility] with dizziness. Per report, patient presented to [facility] on 09-04-2023 due to dizziness and was found to be bradycardic in the 30s. Patient is on Coreg at home and this was held for 3 days without improvement in symptoms. She was then found to have second-degree AV block Mobitz type II and was transferred to [facility] for pacemaker placement. Patient underwent dual chamber pacemaker placement on 09/07/2023. Patient to be admitted to the hospitalist team overnight for observation. During my examination, patient resting in bed. Denies chest pain, SOB, dizziness. Review of System and Physical Exam Heart Rate: [45-60] 60 Resp: [12-18] 16 BP: (147-179)/(55-66) 147/66 Physical Exam Vitals reviewed. Constitutional: Appearance: She is normal weight. HENT: Head: Normocephalic and atraumatic. Mouth/Throat: Mouth: Mucous membranes are moist. Pharynx: Oropharynx is clear. Eyes: Conjunctiva/sclera: Conjunctivae normal. Pupils: Pupils are equal, round, and reactive to light. Cardiovascular: Pulses: Normal pulses. Heart sounds: Normal heart sounds. Comments: Paced rhythm Pulmonary: Effort: Pulmonary effort is normal. Breath sounds: Normal breath sounds. Abdominal: General: Abdomen is flat. Bowel sounds are normal. Musculoskeletal: General: Normal range of motion. Skin: General: Skin is warm and dry. Capillary Refill: Capillary refill takes less than 2 seconds. Neurological: General: No focal deficit present. Mental Status: She is alert and oriented to person, place, and time. Mental status is at baseline. Psychiatric: Mood and Affect: Mood normal. Thought Content: Thought content normal. Judgment: Judgment normal. Review of Systems Constitutional: Negative for chills, diaphoresis and fatigue. HENT: Negative for congestion. Eyes: Negative for discharge. Respiratory: Negative for chest tightness and shortness of breath. Cardiovascular: Negative for chest pain and palpitations. Left chest PPM Gastrointestinal: Negative for abdominal pain, constipation, diarrhea, nausea and vomiting. Genitourinary: Negative for difficulty urinating and dyspareunia. Skin: Negative for color change, pallor, rash and wound. Neurological: Negative for dizziness, facial asymmetry, light-headedness and headaches. Psychiatric/Behavioral: Negative for agitation, behavioral problems and confusion. All other systems reviewed and are negative. Problem List Patient Active Problem List Diagnosis Date Noted Heart block 09/07/2023 Abnormal gait 01/27/2023 Ataxia 01/27/2023 Benign essential hypertension 01/27/2023 Central vestibular vertigo 01/27/2023 Diabetic peripheral neuropathy ([facility]) 01/27/2023 Diabetic renal disease ([facility]) 01/27/2023 Diverticulitis 01/27/2023 Mass of left adrenal gland ([facility]) 01/27/2023 Ovarian failure 01/27/2023 Skin sensation disturbance 01/27/2023 Type 2 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 gangrene ([facility]) 01/27/2023 Type 2 diabetes mellitus without complications ([facility]) 01/27/2023 Diabetes mellitus ([facility]) 08/01/2022 Benign hypertensive cardiomyopathy with heart failure ([facility]) 08/01/2022 Insomnia 08/01/2022 Non-smoker 08/01/2022 Restless legs syndrome 08/01/2022 Coronary artery disease involving kaw coronary artery of kaw heart 06/25/2022 Chronic systolic heart failure ([facility]) 06/25/2022 Mixed hyperlipidemia 06/25/2022 Lightheadedness 03/12/2022 Heart block atrioventricular 09/07/2023 Presence of drug coated stent in right coronary artery 06/25/2022 Assessment and Plan Tere Hartmann is an 83 y.o. female who came from home with past medical history of CAD s/p PCI with stenting, CHF, DM2, hypertension, hyperlipidemia presents as a direct admission from [facility] with dizziness. Per report, patient presented to [facility] on 09-04-2023 due to dizziness and was found to be bradycardic in the 30s. #Second-degree AV block Mobitz type II, s/p PPM implantation -S/p dual-chamber pacemaker implantation on 09/07/2023 -Plan for CXR and EKG in a.m. -Holding DVT prophylaxis overnight until further recommendation from cardiology -Pain management as needed -Limit lifting heavy objects with the left arm -Cardiology consult, appreciate recommendation #Chronic sys (more content not included)... [facility] 09-07-2023 Note DUAL CHAMBER PACEMAK ER IMPLANT PROCEDURE NOTE DATE OF PROCEDURE: 09/07/23 PERFORMING PHYSICIAN: Dr. Cody Forde CONSENT: Patient LOCATION: EP Lab PROCEDURE PERFORMED: 1. Implantation of pacemaker (Biotronik) 2. Ultrasound guided venous access INDICATIONS: 1. 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 Symptomatic bradycardia with VR 38bpm PROCEDURAL SEDATION: Versed and Fentanyl. Moderate sedation was administered by the sedation nurse under my supervision and noted in the CVL log. Intraprocedural face to face sedation time: 40min. Monitoring: Cardiac telemetry, Blood pressure, continuous pulse oxymetry. FLUOROSCOPY TIME: 2.3min/ 6mGray. EBL: 15cc SPECIMEN REMOVED: None PROCEDURAL DETAILS: Patient was placed in trendelenberg position and ultrasound was used to evaluate the patency of left axillary vein and for venous access. Left axillary venous access was obtained using modified seldinger technique using a 5 Qatari micro-puncture needle on two occasions and 0.35 wires were placed. Local infiltration of 1% Lidocaine was performed, and an incision was created in the left upper chest. Dissection was then performed using cautery down to the fascial plane above the muscle. The belly of the pectoralis was identified and with gentle blunt dissection a small pocket was created for the device above the muscle. 6 Qatari Safesheaths were placed over the wire. An active fixation Biotronik pacing lead was then delivered through the 6Fsheath tothe right ventricle. After confirmation of lead position on orthogonal views (HERNANDEZ and MALAWIAN) to confirm septal position, the screw was activated, and the lead was placed in the right ventricular mid cavity towards the septum. After confirmation of good sensing parameters, injury pattern and pacing thresholds, 10V pacing was done and no diaphragmatic stimulation was noted. It was then secured in the pocket using three 1-0 Silk sutures. Then an active fixation Biotronik lead was delivered through the 6Fsheath to the right atrial appendage. After confirmation of lead position on orthogonal views (HERNANDEZ and MALAWIAN), the screw was activated. Good sensing parameters, injury pattern and pacing thresholds, the lead was then tested using Lambert's maneuver. 10V pacing was done and no diaphragmatic stimulation was noted. It was then secured in the pocket using three 1-0 Silk sutures. Pocket hemostasis was secured, and it was then copiously and vigorously irrigated with antibiotic solution. The leads were attached to the generator and then wrapped under the device and the device was tacked to underlying muscle and placed in the pocket. The pocket was closed in layers: subcutaneous layer using 2-0 Vicryl; skin using 3-0 absorbable monofilament suture. Glue was applied and Tegaderm dressing was placed on top. Lead parameters were then rechecked through the device as noted below. The patient was returned to the short stay room for post procedural observation. No immediate procedural complications were noted. POST PROCEDURE EXAM: Patient was hemodynamically stable. COMPLICATIONS: None. IMPRESSION: 1. Successful dual chamber pacemaker with excellent pacing and sensing parameters. RECOMMENDATIONS: 1. Occlusive dressing to be removed after 2 weeks. 2. Do not wet the incision for 7 days. 3. No lifting heavy weights using arm on the same side x 3weeks 4. Do not lift elbow above the shoulder on the same side for 4-6 weeks. 5. No driving for 1 month. 6. F/u in device clinic 1 week from discharge or sooner for any concerns. Cody Forde MD Cardiac Electrophysiology [facility] 09-07-2023 Note Patient: Tere Christopher idd Procedure Information Date/Time: 09/07/231901 Procedure: PPM generator change - dual Location: [facility] STEEPING PRESS OPERATOR 1 EP / [facility] HV VASCULAR LAB (Cath) Providers: Cody Forde MD Clinical information reviewed: Allergies Meds OB Status Physical Exam Airway Mallampati: II TM distance: >3 FB Neck ROM: full Cardiovascular Dental Pulmonary Abdominal Anesthesia Plan ASA 2 CSE Anesthetic plan and risks discussed with patient. Use of blood products discussed with patient who. Additional Equipment Requests [facility] 06-03-2023 Note [facility] Cardiology Clinic Note Chief Complaint: Patient here for 6 mo follow up chronic systolic heart failure and CAD. Doing well. Denies chest pain, SOB, LE edema, and palpitations. Gets vertigo sometimes. Also c/o coldness in her LE and hands. Denies associated discoloration or pain. HPI: Tere Hartmann is a 83 y.o. female history of hypertension, heart failure with reduced ejection fraction, dyslipidemia Here in routine follow-up Doing well; no new symptoms Cardiology ROS: Review of Systems Constitutional: Positive for chills. Neurological: Positive for light-headedness and vertigo. All other systems reviewed and are negative. Past Medical History She has a past medical history of CHF (congestive heart failure) (CMS/HCC), Coronary artery disease, Diabetes mellitus (CMS/HCC), and Hyperlipidemia. 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 The ramus coronary artery has a proximal [...] right PDA disease. 8. Outpatient followup with [facility]. 9. Since the right heart catheterization showed very low filling pressures, I discontinued hydrochlorothiazide (more content not included)... [facility] 12-17-2022 Note Coronary artery dise ase is stable without any concerning symptoms Continue GDMT- ASA, plavix, coreg continue risk factor modifications- heart healthy diet, regular exercise as tolerated and continue all medications. [facility] 12-17-2022 Note [facility] II- currently e uvolemic and without exacerbation Continue GDMT- ASA lipitor, coreg, farxiga, entresto Monitor daily weights, I&O, fluid restriction 1.5-2L/day, renal function and electrolytes- please maintain K+>4 and Mg > 2 [facility] 12-17-2022 Note Continue DAPT for 1 year from 04/21/22 implantation of DEC to RCA [facility] 12-17-2022 Note B/p at home is well controlled Continue all medications B/p may be elevated here r/t white coat syndrome [facility] 12-17-2022 Note Continue statin [facility] 12-17-2022 Note [facility]TP CARDIOLOGY PROGR ESS NOTE HPI: Tere Hartmann is a 82 y.o. female here for [...] mid LAD has 100% chronic total occlusion ([employer] LO[employer] OFFICER). The ramus coronary artery has a proximal [...] 7. Recommend s (more content not included)... [facility] 12-17-2022 Note Review of Systems Constitutional: Negative for malaise/fatigue. Cardiovascular: Positive for leg swelling. Negative for chest pain, dyspnea on exertion, irregular heartbeat, near-syncope, palpitations and syncope. Swelling happens regularly; goes away after rest. Neurological: Negative for dizziness, headaches and light-headedness. 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 This time, patient presented at [facility] with epigastric pain, initial troponin was negative, EKG with no acute ischemic changes. 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 Last Echo on report with EF 40%. Repeat Troponin at [place] uptrended to 600s, EKG with no acute ischemic changes again, given her recent cardiac history, raised the concern forstent thrombosis. Patient was started on IV heparin drip for presumptive NSTEMI and decision made to transfer patient over here to [facility] for possible cardiac cath. In our facility, [...] 0.25 mg PO DAILY Follow Up: Itz Townsend MD [Active Staff] - (Cardiology office will arrange outpatient follow-up. ) Rodrick Butler II, MD [Primary Care Provider] - (Call office on Thursday to schedule follow-up with your Primary Care Provider in 3-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 Also strict glucose follow up. Maybe endocrinology referral. ) Documented By: Herminia Lawler MD 05/11/22 14 25 Signed By: <Electronically signed by Herminia Lawler MD> 05/11/22 1435 [facility] Work Phone: [phone]) 567-256409-11-2022 Progress note Author Itz Townsend [facility] May 11, 2022 12:15pm Note Date/Time May 11, 2022 12:12pm [facility] [address] [place], [place] [id number] Cardiology Progress Note Signed Patient: Tere Hartmann MR#: [id number] : 1940 Acct:[id number] Age/Sex: 82 / F Adm Date: 2 Loc: 4 Room: [address] [place] [address] Type: ADM IN Attending Dr: Herminia Lawler [...] Code(s): I25.10 - Atherosclerotic heart disease of kaw coronary artery without angina pectoris Status: Acute (3) Epigastric abdominal pain: Assessment/Problem Details: Noncardiac. I recommend she be discharged on Pepcid. Code(s): R10.13 - Epigastric pain Status: Acute Plan Suitable for discharge. Continue home regimen. Add Pepcid. I will make arrangements for her to follow-up in the office with me in the next 1 to 2 months. Documented By: Itz Townsend MD 1 Signed By: <Electronically signed by MD Itz Townsend> 05/11/22 9576 [facility] Work Phone: [phone]) 365-339509-10-2022 Progress note Author Herminia Lawler [facility] May 10, 2022 11:22am Note Date/Time May 10, 2022 11:05am [facility] [address] [place] [address] Hospitalist Progress Note Signed Patient: Tere Hartmann MR#: [id number] : 1940 Acct:[id number] Age/Sex: 82 / F Adm Date: 2 Loc: Room: [address] [place] [address] Type: ADM IN Attending Dr: Herminia Lawler [...] 05/10/22 09:00 05/10/22 09:04 Aspirin 81 Mg Tablet.Dr PO 05/10/23 08:59 81 mg DAILY ANDREW [...] then RCA and PDA on 04/21/22 at [facility] PE was ruled out by CTA Aortic [...] with hyperglycemia -HbA1C 10.8 -Blood glucose at [place] was 499. Negative for ketones. DKA was [...] <Electronically signed by Herminia Lawler MD> 05/10/22 [facility] Work Phone: 1([phone]) 153-407709-10-2022 Progress note Author Itz Townsend [facility] May 10, 2022 8:46am Note Date/Time May 10, 2022 8:46am [facility] [address] [place] [address] Cardiology Progress Note Signed Patient: Tere Hartmann MR#: [id number] : 1940 Acct:[id number] Age/Sex: 82 / F Adm Date: 2 Loc: 4 Room: [address] [place] [address] Type: ADM IN Attending Dr: Herminia Lawler [...] Labs: Laboratory Results - last 24 hr 09/05/2205/09/22 05/09/22 13:19 13:19 13:19 Corrected WBC 6.1 Uncorrected WBC Count 6.1 RBC 5.27 H Hgb 13.7 Hct 42.5 MCV 80.6 MCH 25.9 MCHC 32.1 RDW 15.1 Plt Count 222 MPV 8.6 Neut % (Auto) 55.8 Lymph % (Auto) 35.8 Rock % (Auto) 6.3 Eos % (Auto) 1.5 Baso % (Auto) 0.6 Neut # (Auto) 3.4 Lymph # (Auto) 2.2 Rock # (Auto) 0.4 Eos # (Auto) 0.1 [...] MPV Neut % (Auto) Lymph % (Auto) Rock % (Auto) Eos % (Auto) Baso % (Auto) Neut # (Auto) Lymph # (Auto) Rock # (Auto) Eos # (Auto) Baso # [...] MPV Neut % (Auto) Lymph % (Auto) Rock % (Auto) Eos % (Auto) Baso % (Auto) Neut # (Auto) Lymph # (Auto) Rock # (Auto) Eos # (Auto) Baso # [...] MPV Neut % (Auto) Lymph % (Auto) Rock % (Auto) Eos % (Auto) Baso % (Auto) Neut # (Auto) Lymph # (Auto) Rock # (Auto) Eos # (Auto) Baso # [...] % (Auto) 45.7 Lymph % (Auto) 42.4 Rock % (Auto) 6.4 Eos % (Auto) 2.7 Baso % (Auto) 2.8 Neut # (Auto) 3.2 Lymph # (Auto) 3.0 Rock # (Auto) 0.4 Eos # (Auto) 0.2 [...] MPV Neut % (Auto) Lymph % (Auto) Rock % (Auto) Eos % (Auto) Baso % (Auto) Neut # (Auto) Lymph # (Auto) Rock # (Auto) Eos # (Auto) Baso # [...] artery disease): Assessment/Problem Details: Angiographic studies from [place] reviewed. She had a 99% ramus intermedius [...] Code(s): I25.10 - Atherosclerotic heart disease of kaw coronary artery without angina pectoris Status: Acute [...] and increased activity recommended Documented By: Itz Townsend MD [id number] Signed By: <Electronically signed by MD Itz Townsend> 05/10/22 0846 [facility] Work Phone: [phone]) 576-865009-09-2022 Consult note Author Itz Townsend [facility] May 09, 2022 5:03pm Note Date/Time May 09, 2022 5:03pm [facility] [address] [place] [address] Cardiology Consult Note Signed Patient: Tere Hartmann MR#: [id number] : 1940 Acct:[id number] Age/Sex: 82 / F Adm Date: 2 Loc: 4P Room: [address] [place] [address] Type: ADM IN Attending Dr: Herminia Lawler MD Copies to: MD Herminia Owens II, MD William Patrick McGuinn, MD~ Cardiology HPI History of Present Illness Consult Date: 05/09/22 Reason for Consult: Epigastric pain HPI: Ms. Hartmann is a 82 year old female seen [...] comparisonand will not use the enzymes from [place] to make decisions. Presently it appears the [...] History (Updated 05/09/22 @ 17:01 by Itz Townsend MD) Cervical cancer Coronary artery disease Diabetes mellitus NSTEMI (non-ST elevated myocardial infarction) Surgical History History of appendectomy History of cardiac catheterization History of heart artery stent x3 placed in [facility] February 2022 Social History Smoking Status: Never [...] x10E3/uL Lymph # (Auto) 2.2 (1.00-4.8) x10E3/uL Rock # (Auto) 0.4 (0.0-0.8) x10E3/uL Eos # [...] 05/09/22 05/09/22 07:59 15:59 23:59 Intake Total Balance Intake: Oral Other: # Unmeasured Voids 1 Weight 68.9 [...] Code(s): I25.10 - Atherosclerotic heart disease of kaw coronary artery without angina pectoris (2) DM [...] troponins. Will follow advise. Documented By: Itz Townsend MD [id number] Signed By: <Electronically signed by MD Itz Townsend> 05/09/22 1703 [facility] Work Phone: 1(723) 171-177509-09-2022 History and physical note Author Herminia Lawler [facility] May 09, 2022 3:50pm Note Date/Time May 09, 2022 1:19pm [facility] [address] [place] [address] Hospitalist H&P Signed Patient: Tere Hartmann MR#: [id number] : 1940 Acct:[id number] Age/Sex: 82 / F Adm Date: 2 Loc: Room: [address] [place] [address] Type: ADM IN Attending Dr: Herminia Lawler MD Copies to: MD Herminia Owens II, MD~ HPI DATE OF EXAMINATION: 05/09/22 CHIEF COMPLAINT: Epigastric pain HISTORY OF PRESENT ILLNESS: Patient is an 82 elderly female with PMH HTN, DM, CAD s/p recent PCIs, patient had symptoms of SOB and fatigue on exertion in February and went to [facility], She had Echo with EF 40%, positive [...] stated compliance. This time, patient presented at [facility] this morning, initial troponin was negative, EKG with no acute ischemic changes. 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 Last Echo on report with EF 40%.This morning, repeat Troponin at [place] uptrended to 600s, EKG with no acute ischemic changes again, given her recent cardiac history, raised the concern forstent thrombosis/restenosis. Patient was started on IV heparin ip for presumptive NSTEMI and decision made to transfer patient over here to [facility] for possible cardiac cath. During my encounter, [...] of heart artery stent x3 placed in [facility] February 2022 Social History Smoking Status: Never [...] then RCA and PDA on 04/21/22 at [facility] PE was ruled out by CTA Aortic dissection was ruled out by CTA -Patient was transferred from [facility] for NSTEMI for possible cardiac cath -Initial troponin at [place] was normal then repeat was in 600s. Repeat troponin in our facility remains in the 600s. Patient denies any chest pain or epigastric pain, however, she does report bloating sensation in the epigastrium -Patient was started on heparin drip ACS protocol at [facility]. We will continuefor now. Further recommendations to follow by cardio -Heparin drip management per pharmacy protocol for ACS -Check serial troponin -Cardiology was consulted. We will follow-up recommendations -Continue DAPT, statin, beta-reginaldo -Check Echocardiogram -Admit to 4 P for close monitoring Uncontrolled Diabetes with hyperglycemia -HbA1C today 10.8 -Blood glucose at [facility] was 499. Negative for ketones. DKA was [...] <Electronically signed by Herminia Lawler MD> 05/09/22 6995 [facility] Work Phone: 1(563) 669-890408-01-2022 History general Narrative - Reported* Type Description Date Medical History DM2 Medical History HTN Medical History cervical cancer stage 1 Medical History glaucoma Medical History LA Medical History coronary artery dise ase-stents x3 February/March 2022 Surgical History MIREYA 1989 Surgical History appedectomy 1960 Surgical History breast biopsy-benign unsure of date Surgical History Stents x3 2021 Hospitalization History See Above Bag of Ice Other Discharge summary Author Herminia Lawler [facility] May 11, 2022 2:35pm Note Date/Time May 11, 2022 2:27pm [facility] [address] [place] [address] Discharge Summary Signed Patient: Tere Hartmann MR#: [id number] : 1940 Acct:[id number] Age/Sex: 82 / F Adm Date: 2 Loc: Room: [address] [place] [address]: Herimnia Lawler MD Copies to: MD Herminia Owens [...] on exertion in February and went to [facility], She had Echo with EF 40%, positive [...] stated compliance. This time, patient presented at [facility] with epigastric pain, initial troponin was negative, EKG with no acute ischemic changes. 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 Last Echo on report with EF 40%. Repeat Troponin at [place] uptrended to 600s, EKG with no acute ischemic changes again, given her recent cardiac history, raised the concern forstent thrombosis. Patient was started on IV heparin drip for presumptive NSTEMI and decision made to transfer patient over here to [facility] for possible cardiac cath. In our facility, [...] 0.25 mg PO DAILY Follow Up: Itz Townsend MD [Active Staff] - (Cardiology office will arrange outpatient follow-up. ) Rodrick Butler II, MD [Primary Care Provider] - (Call office on Thursday to schedule follow-up with your Primary Care Provider in 3-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 Also strict glucose follow up. Maybe endocrinology referral. ) Documented By: Herminia Lawler MD 05/11/22 14 25 Signed By: <Electronically signed by Herminia Lawler MD> 05/11/22 1435 [facility] Work Phone: Evaluation note* Diagnosis Onset Date Resolution Status CAD (coronary artery disease) acute DM (diabetes mellitus) acute Elevated troponin acute Epigastric abdominal pain ac alla HLD (hyperlipidemia) acute HTN (hypertension) acute [facility] Work Phone: Evaluation noteNo assessment information available [facility] Work Phone: Hospital Discharge instructions Additional [...] worsening in symptoms or developing new [facility] Work Phone: Reason for visit NarrativeSelf Referral, [facility] Visit Codes, TKM 2 [facility] Other Summary Purpose Family History No Family [...] and content) DATE CREATED AUTHOR 04/28/[address] [facility] DATE CREATED AUTHOR AUTHOR'S ORGANIZ ATION 05/27/2022 [facility] DATE CREATED AUTHOR AUTHOR'S ORGANIZ ATION 12/05/2022 [facility] DATE CREATED AUTHOR AUTHOR'S ORGANIZ ATION 05/14/2023 [facility] DATE CREATED AUTHOR AUTHOR'S ORGANIZ ATION 09/17/2023 [facility] DATE CREATED AUTHOR AUTHOR'S ORGANIZ ATION 09/18/2023 [facility] DATE CREATED AUTHOR AUTHOR'S ORGANIZ ATION 09/28/2023 [facility] Care Teams (unrecognized sec tion and content) Team Status: Inactive Member Role Status Dates Rodrick Butler II MD Primary Care Provider Active Herminia Lawler MD Admit Provider, Attending Provi joanna Active Jessica Rojas , [place] Other Provider Active Darrion Gilbert DO Other Provider Active Bo Boothe MD Other Provider Active Itz Townsend MD Other Provider Active Azra Cedillo MD Other Provider Active Jesse Sahu MD Other Provider Active Rivera Magaña APRN Other Provider Active Jackie Curtis MD Other Provider Active August Obrien MD Other Provider Active Brenna Veras MD Other Provider Active Team Status: Active Member Role Status Dates Rodrick Butler II MD Primary Care Provider Active Goals (unrecognized section and content) Goals may be documented in a n alternate section FOR RECORDS PERTAINING TO PATIENTS WHO ARE [...] BE BASED ON THE PRIMARY CLINICAL RECORDS. [facility]. provides no warranty or guarantee of the accuracy or completeness of information in this document.
--- NOTE | 2023-09-29 13:57 | XR_ITS ---
The [address] [address] Patient Name: MERRILL ARAGON MRN: [id number] date: 1940 Sex: F Assigned Patient Location: ER Current Patient Location: ER Accession/Order Number: [id number] Exam Date: 09/29/2023 14:30 Report Date: 09/29/2023 14:53 At the request of: DAYNA ALEXANDER Procedure: XR chest 1V EXAM: Chest x-ray HISTORY: . Weakness . COMPARISON: 09/04/2023 TECHNIQUE: Single view of the chest. FINDINGS: Heart is normal in size. Bipolar pacing device is noted. Vascularity is unremarkable. Lungs are free of focal infiltrates. EKG leads overlie the chest. XR/XR chest 1V Impression: No acute heart or lung disease identified. Electronically authenticated by: CARMEN BRADFORD Date: 09/29/2023 14:53
--- NOTE | 2023-09-29 13:57 | ECG_ITS ---
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
--- NOTE | 2023-09-29 13:58 | ED_ITS ---
HPI - General Adult General Chief complaint: Weakness Stated complaint: BLOOD PRESSURE CHECK Time Seen by Provider: 09/29/23 13:50 Source: patient Mode of arrival: walk-in History of Present Illness HPI narrative: Patient is an 83-year-old female who presents to the emergency department for 3 to 4-day history of not feeling well . She states today she felt lightheaded and noticed that her blood pressure was elevated. She states she had a pacemaker placed at [facility] 3 weeks ago. She states none of her medications were changed and she has been doing well. She has no chest pain, shortness of breath, fevers, chills, cough, congestion. She states today she checked her blood pressure and her blood sugar and they were both elevated. She denies headache, visual changes, peripheral paresthesias, nausea, vomiting. Related Data Home Medications Medication Instructions Recorded Confirmed atorvastatin 80 mg tablet 80 mg PO DAILY 09/04/23 09/04/23 carvedilol 12.5 mg tablet 12.5 mg PO Q12H 09/04/23 09/04/23 cyproheptadine 4 mg tablet 2 mg PO .qhs 09/04/23 09/04/23 dapagliflozin propanediol 10 mg 10 mg PO DAILY 09/04/23 09/04/23 tablet (Farxiga) insulin glargine 100 unit/mL (3 10 unit subcut QPM 09/04/23 09/04/23 mL) subcutaneous pen (Lantus Solostar U-100 Insulin) insulin glargine 100 unit/mL 15 unit subcut QAM 09/04/23 09/04/23 subcutaneous solution (Lantus U-100 Insulin) Allergies Allergy/AdvReac Type Severity Reaction Status Date / Time iodine AdvReac Intermediate Verified 09/04/23 11:19 Sulfa (Sulfonamide AdvReac Intermediate Verified 09/04/23 11:19 Antibiotics) Review of Systems ROS Constitutional Denies: fever or chills Ears, nose, mouth, and throat Denies: throat pain Cardiovascular Denies: chest pain Respiratory Denies: shortness of breath Gastrointestinal Denies: nausea or vomiting Genitourinary Denies: painful urination Musculoskeletal Denies: back pain Integumentary/Breast Denies: rash Neurological Reports: dizziness; Denies: headache or confusion Hematologic/Lymphatic Denies: easy bruising PFSH PFSH Medical History (Updated 09/29/23 @ 15:54 by LIZZ Botello) Dehydration ?E86.0 - Dehydration (ICD-10) Metabolic acidosis ?E87.20 - Acidosis, unspecified (ICD-10) Hyponatremia ?E87.1 - Hypo-osmolality and hyponatremia (ICD-10) Bradycardia ?R00.1 - Bradycardia, unspecified (ICD-10) URI (upper respiratory infection) ?J06.9 - Acute upper respiratory infection, unspecified (ICD-10) Diabetes ?E11.9 - Type 2 diabetes mellitus without complications (ICD-10) Heart attack ?I21.9 - Acute myocardial infarction, unspecified (ICD-10) Uterine cancer ?C55 - Malignant neoplasm of uterus, part unspecified (ICD-10) Surgical History (Updated 09/04/23 @ 16:07 by Gena Islas) History of heart artery stent ?Z95.5 - Presence of coronary angioplasty implant and graft (ICD-10) Social History Smoking status: Never smoker Highest level of school completed/degree received: 11th grade Exam Narrative Exam Narrative: Gen.: Awake, alert, in no distress Head: Normocephalic, atraumatic ENT: Moist mucous membranes Respiratory: No respiratory distress, lungs clear bilaterally Cardio: Regular rate and rhythm Gastrointestinal: Abdomen is soft, nondistended and nontender to palpation Extremities: Moves extremities equally Psych: Normal mood and affect Neuro: No focal neuro deficit Skin: Warm, dry, intact Constitutional Vital Signs, click to edit/add: Last Vital Signs Temp 98.1 F 09/29/23 13:46 Pulse 64 09/29/23 13:46 Resp 18 09/29/23 13:46 BP 150/70 H 09/29/23 15:45 Pulse Ox 99 09/29/23 13:46 O2 Del Method Room Air 09/29/23 13:46 Course Vital Signs Vital signs: Vital Signs Temperature 98.1 F 09/29/23 13:46 Pulse Rate 64 09/29/23 13:46 Respiratory Rate 18 09/29/23 13:46 Blood Pressure 190/84 H 09/29/23 13:46 Pulse Oximetry 99 09/29/23 13:46 Oxygen Delivery Method Room Air 09/29/23 13:46 Temperature 98.1 F 09/29/23 13:46 Pulse Rate 64 09/29/23 13:46 Respiratory Rate 18 09/29/23 13:46 Blood Pressure 150/70 H 09/29/23 15:45 Pulse Oximetry 99 09/29/23 13:46 Oxygen Delivery Method Room Air 09/29/23 13:46 Medical Decision Making MDM Narrative Medical decision making narrative: Patient treated with IV hydralazine, she has no focal neurodeficits in the emergency department and her blood pressure improved. She reports feeling better. Her CT of the brain, chest x-ray, labs and urine specimen are unremarkable. Follow-up with PCP and return to the ER if symptoms change or worsen Medical Records Medical records reviewed: Yes I reviewed the patient's medical records Lab Data Lab results reviewed: Yes I reviewed the patient's lab results Labs: Lab Results 09/29/23 09/29/23 Range/Units 14:15 14:30 WBC 7.8 (4.0-11.0) 10^3/uL RBC 5.00 (4.20-5.40) 10^6/uL Hgb 13.3 (12.0-16.0) g/dL Hct 42.3 (36.0-48.0) % MCV 84.6 (81.0-99.0) fL MCH 26.6 L (26.7-34.0) pg MCHC 31.4 (29.9-35.2) g/dL RDW 14.6 (11.0-15.0) % Plt Count 202 (150-450) 10^3/uL MPV 10.2 (9.5-13.5) fL Neut % (Auto) 61.4 (43.0-75.0) % Lymph % (Auto) 29.8 (20.5-60.0) % Archer % (Auto) 5.8 (1.7-12.0) % Eos % (Auto) 2.2 (0.9-7.0) % Baso % (Auto) 0.5 (0.2-2.0) % Neut # (Auto) 4.8 (1.4-6.5) 10^3/uL Lymph # (Auto) 2.3 (1.2-3.8) 10^3/uL Archer # (Auto) 0.5 (0.3-0.8) 10^3/uL Eos # (Auto) 0.2 (0.0-0.7) 10^3/uL Baso # (Auto) 0.0 (0.0-0.1) 10^3/uL Abs Immat Gran (auto) 0.02 (0.00-0.03) 10^3/uL Imm/Tot Granulo (auto) 0.3 (0.0-0.5) % PT 10.8 (9.0-11.6) sec INR 1.02 Sodium 134 L (136-145) mmol/L Potassium 4.3 (3.5-5.1) mmol/L Chloride 102 (98-107) mmol/L Carbon Dioxide 26.8 (21.0-32.0) mmol/L Anion Gap 9.5 BUN 22.0 H (7.0-18.0) mg/dL Creatinine 1.00 (0.55-1.02) mg/dL Est GFR ( Amer) >60 (>=60) Est GFR (Non-Af Amer) 53 L (>=60) BUN/Creatinine Ratio 22.0 Glucose 200 H (74-106) mg/dL Lactate 0.9 (0.4-2.0) mmol/L Calcium 9.9 (8.5-10.1) mg/dL Total Bilirubin 0.5 (0.2-1.0) mg/dL AST 20 (15-37) U/L ALT 33 (14-59) U/L Alkaline Phosphatase 98 (46-116) U/L Troponin I High Sens 7.8 (4.0-51.3) pg/mL Total Protein 7.7 (6.4-8.2) g/dL Albumin 3.4 (3.4-5.0) g/dL Globulin 4.3 g/dL Albumin/Globulin Ratio 0.8 Urine Color Lt. yellow (YELLOW) Urine Clarity Clear (CLEAR) Urine pH 6.0 (5.0-9.0) Ur Specific [place] <=1.005 A (1.005-1.025) Urine Protein Negative (NEG/TRACE) mg/dL Urine Glucose (UA) >=1000 A (NEGATIVE) mg/dL Urine Ketones Negative (NEGATIVE) mg/dL Urine Occult Blood Negative (NEGATIVE) Urine Nitrite Negative (NEGATIVE) Urine Bilirubin Negative (NEGATIVE) Urine Urobilinogen 0.2 (0.2-1.0) EU/dL Ur Leukocyte Esterase Small A (NEGATIVE) Urine RBC 0-2 (0-2) #/HPF Urine WBC 5-10 A (NONE SEEN) #/HPF Ur Squamous Epith Cells Rare (NONE/RARE) #/LPF Urine Crystals None seen (None Seen) #/HPF Urine Bacteria Trace A (NONE SEEN) #/HPF Urine Casts None seen (NONE SEEN) #/LPF Urine Mucus None seen (NONE SEEN) Ur Culture Indicated? Yes Imaging Data CT scan - head: Attestation: I have reviewed the pertinent imaging results. Radiologist's impression: ITS Impressions Chest X-Ray 09/29/23 13:57 Impression: No acute heart or lung disease identified. Electronically authenticated by: CARMEN BRADFORD Date: 09/29/2023 14:[address] 09/29/23 15:05 IMPRESSION: 1. No acute large vascular territory infarct or acute intracranial hemorrhage. 2. Chronic right sphenoid sinusitis. Electronically authenticated by: MEGHAN HOANG Date: 09/29/2023 15:15 ECG Data Attestation: I personally reviewed and interpreted this ECG as follows: (Normal sinus rhythm at a rate of 62, first-degree AV block with right bundle branch block and no acute ST elevation or ectopy. EKG reviewed by attending physician) Discharge Plan Discharge Chief Complaint: Weakness Clinical Impression: Hypertension Patient Disposition: Home, Self-Care Time of Disposition Decision: 15:54 Condition: Good Mode of Transportation: Private Vehicle Prescriptions / Home Meds: No Action atorvastatin 80 mg tablet 80 mg PO DAILY carvedilol 12.5 mg tablet 12.5 mg PO Q12H Farxiga 10 mg tablet 10 mg PO DAILY cyproheptadine 4 mg tablet 2 mg PO .qhs insulin glargine [Lantus U-100 Insulin] 100 unit/mL solution 15 unit subcut QAM Patient Comments: 15 units in the AM and 10 units PM insulin glargine [Lantus Solostar U-100 Insulin] 100 unit/mL (3 mL) insulin pen 10 unit subcut QPM Instructions: Hypertension (ED) Stand Alone Forms: Portal Instructions Referrals: MARIAM KIRBY [Primary Care Provider] - 1 week Discharge Date/Time: 09/29/23 16:03
[2023-09-29 14:33] LABS: Basophils Percent Auto 0.5 % (0.2-2.0); Eosinophils Absolute Auto 0.2 10^3/uL (0.0-0.7); Eosinophils Percent Auto 2.2 % (0.9-7.0); Hematocrit 42.3 % (36.0-48.0); Hemoglobin 13.3 g/dL (12.0-16.0); Immature Granulocytes Abs Auto 0.02 10^3/uL (0.00-0.03); Immature Granulocytes Pct Auto 0.3 % (0.0-0.5); Lymphocytes Absolute Auto 2.3 10^3/uL (1.2-3.8); Lymphocytes Percent Auto 29.8 % (20.5-60.0); Mean Corpuscular HGB Conc 31.4 g/dL (29.9-35.2); Mean Corpuscular Hemoglobin 26.6 pg (26.7-34.0); Mean Corpuscular Volume 84.6 fL (81.0-99.0); Mean Platelet Volume 10.2 fL (9.5-13.5); Monocytes Absolute Auto 0.5 10^3/uL (0.3-0.8); Monocytes Percent Auto 5.8 % (1.7-12.0); Neutrophils Absolute Auto 4.8 10^3/uL (1.4-6.5); Neutrophils Percent Auto 61.4 % (43.0-75.0); Platelet Count 202 10^3/uL (150-450); Red Cell Distribution Width 14.6 % (11.0-15.0); White Blood Count 7.8 10^3/uL (4.0-11.0)
[2023-09-29] MEDS: HYDRALAZINE HCL 20 MG/ML VIAL 10 MG IVP (14:41)
[2023-09-29 14:58] LABS: Lactate/Lactic Acid 0.9 mmol/L (0.4-2.0)
[2023-09-29 14:59] LABS: Alanine Aminotransferase 33 U/L (14-59); Albumin Globulin Ratio 0.8; Albumin Level 3.4 g/dL (3.4-5.0); Alkaline Phosphatase 98 U/L (46-116); Anion Gap 9.5; Aspartate Amino Transferase 20 U/L (15-37); Bilirubin Total 0.5 mg/dL (0.2-1.0); Calcium 9.9 mg/dL (8.5-10.1); Carbon Dioxide 26.8 mmol/L (21.0-32.0); Chloride 102 mmol/L (98-107); Estimated GFR (African America >60 (>=60); Estimated GFR (Non-African Ame 53 (>=60); Globulin 4.3 g/dL; Glucose 200 mg/dL (74-106); Potassium 4.3 mmol/L (3.5-5.1); Sodium 134 mmol/L (136-145); Total Protein 7.7 g/dL (6.4-8.2); Troponin I High Sensitivity 7.8 pg/mL (4.0-51.3)
[2023-09-29 15:00] LABS: INR 1.02; Prothrombin Time 10.8 sec (9.0-11.6)
--- NOTE | 2023-09-29 15:05 | CT_ITS ---
The [address] [address] Patient Name: MERRILL ARAGON MRN: [facility]:[id number] date: 1940 Sex: F Assigned Patient Location: ED.MAIN Current Patient Location: Accession/Order Number: [id number] Exam Date: 09/29/2023 15:00 Report Date: 09/29/2023 15:15 At the request of: DANYA ALEXANDER Procedure: CT head/brain wo con EXAM: CT head/brain wo con HISTORY: weakness COMPARISON: CT head 08/29/2022. TECHNIQUE: Axial noncontrast CT imaging of the head was performed with coronal and sagittal reformats. This CT exam was performed using one or more of the following dose reduction techniques: Automated exposure control, adjustment of the MA and/or kV according to patient size, or use of iterative reconstruction technique. FINDINGS: Calvarium/skull base: No evidence of acute fracture or destructive lesion. Mastoids and middle ears demonstrate no substantial mucosal disease. Paranasal sinuses: No air fluid levels. Chronic sinusitis involving the right sphenoid sinus with complete opacification of the right sphenoid sinus and right sphenoethmoidal recess with associated mucoperiosteal thickening stable from 2021. Brain: No acute intracranial hemorrhage. No acute large vascular territory infarct. Mild parenchymal volume loss. No mass lesion or mass effect. No hydrocephalus. Intracranial atherosclerosis. CT/CT head/brain wo con IMPRESSION: 1. No acute large vascular territory infarct or acute intracranial hemorrhage. 2. Chronic right sphenoid sinusitis. Electronically authenticated by: MEGHAN HOANG Date: 09/29/2023 15:15
[2023-09-29 15:38] LABS: Bilirubin Urine NEGATIVE (NEGATIVE); Blood Urine NEGATIVE (NEGATIVE); Clarity Urine CLEAR (CLEAR); Color Urine LT. YELLOW (YELLOW); Glucose Urine UA >=1000 mg/dL (NEGATIVE); Ketones Urine NEGATIVE (NEGATIVE); Leukocyte Esterase Urine SMALL (NEGATIVE); Nitrite Urine NEGATIVE (NEGATIVE); Protein Urine NEGATIVE (NEG/TRACE); Specific Gravity Urine <=1.005 (1.005-1.025); Urine Microscopic Indicated YES; Urobilinogen Urine 0.2 EU/dL (0.2-1.0)
[2023-09-29 16:31] LABS: Bacteria Urine TRACE #/HPF (NONE SEEN); Cast Seen? NONE SEEN #/LPF (NONE SEEN); Crystals Seen? None Seen #/HPF (None Seen); Mucus Urine NONE SEEN (NONE SEEN); RBC Urine 0-2 #/HPF (0-2); Squamous Epithelial Cell Urine RARE #/LPF (NONE/RARE); Urine Culture Indicated YES
--- NOTE | 2023-10-04 08:54 | PC.NURSE ---
10/04/23 0855 pt urine c+s from 09/29/23 by Allison higuera at this time. Merna Archer RN
== END 2023-09-29 16:03 | disposition home or self-care (01) ==
PROVIDERS: Physician Assistant; Emergency Provider Emergency Medicine; PCP Internal Medicine
DX: I10 Essential (primary) hypertension (principal); Z95.0 Presence of cardiac pacemaker; Z79.899 Other long term (current) drug therapy; Z79.4 Long term (current) use of insulin; E11.9 Type 2 diabetes mellitus without complications; I25.2 Old myocardial infarction; Z85.42 Personal history of malignant neoplasm of other parts of uterus; Z95.5 Presence of coronary angioplasty implant and graft
CPT/HCPCS: 36415; 70450; 71045; 80053; 81001; 83605; 84484; 85025; 85610; 87086; 87150; 87186; 93005; 96374; 99285; J0360

== ENCOUNTER 2024-05-28 08:18 | Inpatient (IN) | payer MEDICARE, SELFPAY ==
[2024-05-28] VITALS (72 sets, daily range): BP systolic 158–219; BP diastolic 68–126; PULSE 60–131; TEMP 36.4–36.9; O2SAT 96–100; BMI 23.5; BMI 23.1
--- OUTSIDE RECORDS SUMMARY | 2024-05-28 08:28 | XMS_ITS | CCD ---
Author Organization [facility] CliniSymt Care Team Providers Care Milling Machine Tender Name Role Phone RODRICK BUTLER Primary Care Unavailable RODRICK BUTLER Referring Unavailable SILVINA BREEN Admitting Unavailable SILVINA BREEN Attending Unavailable RODRICK BUTLER Primary Care Unavailable RODRICK BUTLER Referring Unavailable SILVINA BREEN Admitting Unavailable SILVINA BREEN Attending Unavailable CHANDA Butler Primary Care Provider [phone] MD Herminia Lawler Admit Provider MD Herminia Lawler Attending Provider [phone] [place] Rojas Other Provider Unavailable DO Darrion Gilbert Other Provider [phone] MD Bo Boothe Other Provider [phone] MD Itz Townsend Other Provider MD Azra Cedillo Other Provider [phone] MD Jesse Sahu Other Provider JUAN Ramos Other Provider [phone] MD Jackie Curtis Other Provider MD August Obrien Other Provider MD Brenna Veras Other Provider Itz Townsend II Attending Unavailable Saundra ARMAS, Itz Attending Unavailable Saundra ARMAS, Itz Attending Unavailable Heather Soler Unavailable DR RODRICK BUTLER Attending Unavailable LUKE, DR BECERRA Admitting Unavailable LUKE, DR BECERRA Primary Care Unavailable LUKE, DR BECERRA Consulting Unavailable JOHNATHON, DR LOUIS Brice Consulting Unavailable LUKE, DR BECERRA Attending Unavailable LUKE, DR BECERRA Admitting Unavailable BUTLER, DR BECERRA Primary Care Unavailable BUTLER, DR BECERRA Consulting Unavailable ZIEBER, DR LOUIS Brice Consulting Unavailable BUTLER, DR BECERRA Primary Care [...] Unavailable FAWWAD, CARRASCO H Consulting Unavailable NEFCY, PETER Consulting Unavailable CARLOS, REJI Attending Unavailable CARLOS, [...] Unavailable ZIEBER, DR LOUIS Brice Consulting Unavailable Ryder, Heather Pryor Attending Unavailable Ryder, Heather Pryor Admitting Unavailable ButlerRodrick Primary Care Unavailable MIKALA STAHL Referring Unavailable CODY FORDE Admitting Unavailable ALEX MARTINEZ Attending Unavailab CODY Hunt Referring Unavailable PIRKL, OSWALD Referring Unavailable PIRKL, OSWALD Referring Unavailable EULACODY Collins Referring Unavailable ELTARICARDO, EHAB Attending Unavailable ABBIE CRISOSTOMO Attending Unavailable CODY FORDE Referring Unavailable YEARTY, JAMAICA Referring Unavailable FARIBA, SHAMIKA Referring Unavailable FARIBA, SHAMIKA Referring Unavailable EULACODY Collins Attending Unavailable MIRI, ISIDORO Admitting Unavailable KALYANI FLETCHER Attending Unavailable RODGER PAREDES Attending Unavailable RODRICK BUTLER Attending Unavailable RODRICK BUTLER Attending Unavailable RODRICK BUTLER Attending Unavailable RODRICK BUTLER Attending Unavailable KALYANI FLETCHER Attending Unavailable RODGER PAREDES Attending Unavailable RODRICK BUTLER Attending Unavailable RODRICK BUTLER Attending Unavailable Allergies Allergy Classification Reported Allergen(s) Allergy Type Date of Onset Reaction(s) Facility (4 sources) Iodine Drug Allergy 2 Rash [facility] Repository (6 sources) Sulfonamides (Antibiotic); 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: [SULFA (SULFONAMIDE ANTIBIOTICS)] Drug allergy (disorder) 5 Blister [facility] Repository (4 sources) Shellfish; 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: [shellfish derived] Propensity to adverse reactions 2 Vomiting [facility] (1 source) Sulfonamides (Antibiotic) Propensity to adverse reactions mouth sores [facility] Other (1 source) shellfish/iodine Propensity to adverse reactions vomiting [facility] Other (1 source) empagliflozin Drug Allergy [facility] Repository (1 source) Iodine Drug Allergy 5 [facility] Repository (1 source) Shellfish Drug allergy (disorder) 5 [facility] Repository (1 source) Iodine Drug Allergy 2 [facility] Repository (1 source) Sulfonamides (Antibiotic) Drug allergy (disorder) 2 [facility] Repository (1 source) empagliflozin; 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: [EMPAGLIFLOZIN] Drug Allergy 2 [facility] Repository Medications Current Medications Medication Drug [...] May 10, 2022 11:00pm [facility] Marianne 2 [place] - (1 source) Start: 09-23-2022 FreeStyle Libr e 2 [place] - as directed -- 5 x day for 365 days Sending to [facility] medical Aug, Active FreeStyle Marianne 2 S[place] - (1 source) Start: 09-23-2022 FreeStyle Libr e 2 Sensor - as directed in vitro q 14 days for 84 days Sending to [facility] medical Aug, Active furosemide 20 mg [...] sources) Epigastric pain; 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: [Epigastric pain] Onset: 05-13-2022 05-10-2022 Episodic Acute myocardial infarction (4 sources) Myocardial infarction; 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: [Non-ST elevation (NSTEMI) myocardial infarction] Onset: 05-13-2022 05-09-2022 Chronic Administrative/social admission (1 source) Dietary counseling and surveillance Episodic Cardiac dysrhythmias (4 sources) Palpitations; 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: [PALPITATIONS] Onset: 08-28-2022 Episodic Chronic kidney disease (1 source) Chronic kidney disease; 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: [CHRONIC KIDNEY DISEASE STAGE 3A] Onset: 06-11-2022 Conditions associated with dizziness or vertigo (3 sources) Dizziness and giddiness; 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: [DIZZINESS AND GIDDINESS] Onset: 11-24-2022 Episodic Conduction disorders (8 sources) Encounter for adjustment and management of automatic implantable cardiac defibrillator; 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: [Presence of cardiac pacemaker] Onset: 09-07-2023 Chronic Congestive heart failure; nonhypertensive (6 sources) Unspecified systolic (congestive) heart failure; 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: [Chronic systolic (congestive) heart failure] Onset: 03-12-2022 Chronic Coronary atherosclerosis and other heart disease (10 sources) Coronary arteriosclerosis; 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: [Atherosclerotic heart disease of augustine coronary artery without angina pectoris] Onset: 09-08-2022 05-09-2022 Chronic Coronary atherosclerosis and other heart disease (2 sources) Presence of coronary angioplasty implant and graft; 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: [PRESENCE COR ANGPLSTY IMPLANT AND GRAFT] Onset: 05-13-2022 Episodic Diabetes mellitus with complications (5 sources) Hyperglycemia due to type 2 diabetes mellitus; 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: [Type 2 diabetes mellitus with hyperglycemia] Onset: 06-14-2022 Chronic Diabetes mellitus without complication (5 sources) Diabetes mellitus; 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: [Type 2 diabetes mellitus without complications] 05-09-2022 Chronic Disorders of lipid metabolism (8 sources) Hyperlipidemia; 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: [Hyperlipidemia, unspecified] Onset: 09-08-2022 05-09-2022 Chronic Diverticulosis and diverticulitis (1 source) Diverticular disease of colon; 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: [Diverticulosis of large intestine without perforation or abscess without bleeding] Chronic E Codes: Fall (1 source) Unspecified fall, initial encounter; 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: [UNSPECIFIED FALL INITIAL ENCOUNTER] Onset: 09-08-2022 Episodic Essential hypertension (9 sources) Hypertensive disorder; 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: [Essential (primary) hypertension] Onset: 09-07-2023 05-09-2022 Chronic Hypertension with complications and secondary [...] source) Long-term current use of insulin; 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: [continuous churn buttermaker (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 of insulin] Episodic Other aftercare (2 sources) continuous churn buttermaker (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 of insulin; 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: [SHADE BANDER CURRENT USE OF INSULIN] Onset: 11-25-2022 Episodic Other aftercare (1 source) continuous churn buttermaker (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 of aspirin; 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: [SHADE BANDER CURRENT USE OF ASPIRIN] Onset: 11-25-2022 Episodic Other aftercare (1 source) Other shelter (current) drug therapy; 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: [OTH SHADE BANDER CURRENT DRUG THERAPY] Onset: 11-25-2022 Episodic Other aftercare (1 source) continuous churn buttermaker (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 of antithrombotics/ant iplatelets; 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: [PRISON ANTITHROMBOT/ANTIPL ATLETS] Onset: 11-25-2022 Episodic Other endocrine [...] [CONTACT W/AND (SUSP) EXPOS COVID-19] Onset: 09-08-2022 Urinary tract infections (1 source) Urinary tract [...] Range Facility Office Visiton 09-16-2023 Follow-up visit [id number] Toya Hartmann 1940 F Date Provider Department Center 09/16/2023 ABBIE WEBER CARD [facility] Family History Problem Relation Age of Onset Hypertension Mother Coronary artery disease Mother Coronary artery disease Father Hypertension Father Hypertension Sister Coronary artery disease Brother Family Status - Relation Status Age at Mother Father Sister Brother Level of Service:57296 [place] POSTOP FOLLOW UP VISIT RELATED TO ORIGINAL PX Normal [facility] BASIC METABOLIC PANELon 08-31 Anion gap [Moles/Vol] 15 mmol/L Normal 7-20 [facility] Comment on above: Performed By: #### L [id number] #### [facility] (AKER) [address] [place] [address] Calcium [Mass/Vol] 10.1 mg/dL Normal 8.6-10.3 [facility] Comment on above: Performed By: #### L [id number] #### [facility] (BEAKER) [address] [place] [address] Chloride [Moles/Vol] 103 mmol/L Normal 98-107 [facility] Comment on above: Performed By: #### L [id number] #### [facility] (BEAKER) [address] [place] [address] CO2 [Moles/Vol] 21 mmol/L Normal 21-31 [facility] Comment on above: Performed By: #### L [id number] #### [facility] (BEAKER) [address] [place] [address] Creatinine [Mass/Vol] 0.95 mg/dL Normal 0.60-1.20 [facility] Comment on above: Performed By: #### L [id number] #### [facility] ([facility]) [address] [place] [address] GLOMERULAR FILTRATION RATE ML/MIN/1.73 SQ M.PREDICTED 59.1 mL/min/1.73m*2 Low >60.0 [place] Comment on above: Result Comment: [facility]???s estimated glomerular filtration rate (eGFR) will [...] group of individuals. Performed By: #### L [id number] #### [facility] ([facility]) [address] [place] [address] Glucose [Mass/Vol] 149 mg/dL High 70-100 [facility] Comment on above: Performed By: #### L [id number] #### [facility] ([facility]) [address] [place] [address] Potassium [Moles/Vol] 5.0 mmol/L Normal 3.5-5.1 [facility] Comment on above: Performed By: #### L [id number] #### [facility] ([facility]) [address] [place] [address] Sodium [Moles/Vol] 134 mmol/L Low 136-145 [facility] Comment on above: Performed By: #### L [id number] #### [facility] ([facility]) [address] [place] [address] Urea nitrogen [Mass/Vol] 22 mg/dL Normal 7-25 [facility] Comment on above: Performed By: #### L [id number] #### [facility] ([facility]) [address] [place] [address] UREA NITROGEN/CREATININE (MASS RATIO) IN SER/PLAS 23.2 Normal [facility] Comment on above: Performed By: #### L [id number] #### [facility] ([facility]) [address] [place] [address] CBCon 09-09-2023 Erythrocyte distribution width (RBC) [Ratio] 14.4 % Normal 11.5-15.0 [facility] Comment on above: Performed By: #### L [id number] #### [facility] ([facility]) [address] [place] [address] ERYTHROCYTE MEAN CORPUSCULAR HEMOGLOBIN CONCENTRATION (G/DL) BY AUTOMATED 31.3 g/dL Low 32.0-35.0 [facility] Comment on above: Performed By: #### L [id number] #### [facility] ([facility]) [address] [place] [address] Hematocrit (Bld) [Volume fraction] 42.5 % Normal 36.0-48.0 [facility] Comment on above: Performed By: #### L [id number] #### [facility] ([facility]) [address] [place] [address] Hemoglobin (Bld) [Mass/Vol] 13.3 g/dL Normal 12.0-15.0 [facility] Comment on above: Performed By: #### L [id number] #### [facility] ([facility]) [address] [place] [address] MCH (RBC) [Entitic mass] 26.2 pg Low 27.0-33.0 [facility] Comment on above: Performed By: #### L [id number] #### [facility] ([facility]) [address] [place] [address] MCV (RBC) [Entitic vol] 83.8 fL Normal 82.0-98.0 [facility] Comment on above: Performed By: #### L [id number] #### [facility] ([facility]) [address] [place] [address] PLATELETS (10*3/UL) IN BLOOD AUTOMATED COUNT 220 10*3/uL Normal 150-400 [facility] Comment on above: Performed By: #### L [id number] #### [facility] ([facility]) [address] [address] RBC (Bld) [#/Vol] 5.07 10*6/uL High 3.80-5.00 [facility] Comment on above: Performed By: #### L [id number] #### [facility] ([facility]) [address] [place] [address] WBC (Bld) [#/Vol] 9.41 10*3/uL Normal 4.00-10.60 [facility] Comment on above: Performed By: #### L [id number] #### [facility] ([facility]) [address] [place] [address] MAGNESIUMon 09-09-2023 Magnesium [Mass/Vol] 1.7 mg/dL Low 1.9-2.7 [facility] Comment on above: Performed By: #### L [id number] #### [facility] ([facility]) [address] [place] [address] POCT GLUCOSE METER UNSOLICIT ED RESULTSon 09-09-2023 Glucose [Mass/Vol] 138 mg/dL High 70-105 [facility] Comment on above: Order Comment: Waive d Testing in the ED is performed under the ED CLIA certificate #[id number]. Result Comment: vcar mon Performed By: #### L [id number] #### [facility] ([facility]) [address] [place] [address] 30on 09-08-2023 30 The patient is Moderately Stable - Low risk of patient condition declining or worsening The patient's goals for the shift include comfort, rest The clinical goals for the shift include vss Over the shift, the patient did not make progress toward the following goals. Barriers to progression include na. Recommendations to address these barriers include na. Normal [facility] 30 Daily Case Managemen t Update Multidisciplinary rounds have been completed. Barriers to Discharge: S/p PPM placement. 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 Diet: Dietary Orders (From admission, onward) Start Ordered 09/08/23 0838 Diet NPO Diet effective now Comments: Sips with medications Question: Reason for NPO: Answer: Operation/Procedure 09/08/23 0837 09/08/23 0746 Special Kitchen Request Once Comments: Burmese toast with sugar free syrup, lite strawberry [...] of Consultation Consultation and Management 09/07/231957 Normal [facility] BASIC METABOLIC PANELon Anion gap [Moles/Vol] 10 mmol/L Normal 7-20 [facility] Comment on above: Performed By: #### L [id number] #### [facility] ([facility]) [address] [place] [address] Calcium [Mass/Vol] 9.3 mg/dL Normal 8.6-10.3 [facility] Comment on above: Performed By: #### L [id number] #### [facility] ([facility]) [address] [place] [address] Chloride [Moles/Vol] 108 mmol/L High 98-107 [facility] Comment on above: Performed By: #### L [id number] #### [facility] ([facility]) [address] [place] [address] CO2 [Moles/Vol] 20 mmol/L Low 21-31 [facility] Comment on above: Performed By: #### L [id number] #### [facility] ([facility]) [address] [place] [address] Creatinine [Mass/Vol] 0.97 mg/dL Normal 0.60-1.20 [facility] Comment on above: Performed By: #### L [id number] #### [facility] ([facility]) [address] [place] [address] GLOMERULAR FILTRATION RATE ML/MIN/1.73 SQ M.PREDICTED 57.6 mL/min/1.73m*2 Low >60.0 [place] Comment on above: Result Comment: [facility]???s estimated glomerular filtration rate (eGFR) will [...] of individuals. Performed By: #### L [id number] #### [facility] ([facility]) [address] [place] [address] Glucose [Mass/Vol] 127 mg/dL High 70-100 [facility] Comment on above: Performed By: #### L [id number] #### [facility] ([facility]) [address] [place] [address] Potassium [Moles/Vol] 4.7 mmol/L Normal 3.5-5.1 [facility] Comment on above: Performed By: #### L [id number] #### [facility] ([facility]) [address] [place] [address] Sodium [Moles/Vol] 133 mmol/L Low 136-145 [facility] Comment on above: Performed By: #### L [id number] #### [facility] ([facility]) [address] [place] [address] Urea nitrogen [Mass/Vol] 22 mg/dL Normal 7-25 [facility] Comment on above: Performed By: #### L [id number] #### [facility] ([facility]) [address] [address] UREA NITROGEN/CREATININE (MASS RATIO) IN SER/PLAS 22.7 Normal [facility] Comment on above: Performed By: #### L [id number] #### [facility] ([facility]) [address] [place] [address] CBCon 09-08-2023 Erythrocyte distribution width (RBC) [Ratio] 14.7 % Normal 11.5-15.0 [facility] Comment on above: Performed By: #### L [id number] #### [facility] ([facility]) [address] [place] [address] ERYTHROCYTE MEAN CORPUSCULAR HEMOGLOBIN CONCENTRATION (G/DL) BY AUTOMATED 31.7 g/dL Low 32.0-35.0 [facility] Comment on above: Performed By: #### L [id number] #### [facility] ([facility]) [address] [place] [address] Hematocrit (Bld) [Volume fraction] 42.3 % Normal 36.0-48.0 [facility] Comment on above: Performed By: #### L [id number] #### [facility] ([facility]) [address] [place] [address] Hemoglobin (Bld) [Mass/Vol] 13.4 g/dL Normal 12.0-15.0 [facility] Comment on above: Performed By: #### L [id number] #### [facility] ([facility]) [address] [place] [address] MCH (RBC) [Entitic mass] 26.7 pg Low 27.0-33.0 [facility] Comment on above: Performed By: #### L [id number] #### [facility] ([facility]) [address] [place] [address] MCV (RBC) [Entitic vol] 84.3 fL Normal 82.0-98.0 [facility] on above: Performed By: #### L [id number] #### [facility] ([facility]) [address] [place] [address] PLATELETS (10*3/UL) IN BLOOD AUTOMATED COUNT 177 10*3/uL Normal 150-400 [facility] Comment on above: Performed By: #### L [id number] #### [facility] ([facility]) [address] [place] [address] RBC (Bld) [#/Vol] 5.02 10*6/uL High 3.80-5.00 [facility] Comment on above: Performed By: #### L [id number] #### [facility] ([facility]) [address] [place] [address] WBC (Bld) [#/Vol] 6.99 10*3/uL Normal 4.00-10.60 [facility] Comment on above: Performed By: #### L [id number] #### [facility] ([facility]) [address] [place] [address] HPon 09-08-2023 HP H&P reviewed. The patient was examined and there are no changes to the H&P.the patient was found to have RV lead migration, she will need lead revision Normal [facility] Orders Onlyon 09-08-2023 Orders Only [id number] HartmannGraciececilia Vidal 1940 F Date Provider Department Center 09/08/2023 RIVERA CAMILO [facility] MS HeartVAS Family History Problem Relation Age of Onset Hypertension Mother Coronary artery disease Mother Coronary artery disease Father Hypertension Father Hypertension Sister Coronary artery disease Brother Family Status - Relation Status Age at Mother Father Sister Brother Normal [facility] POCT GLUCOSE METER UNSOLICIT ED RESULTSon 09-08-2023 Glucose [Mass/Vol] 228 mg/dL High 70-105 [facility] Comment on above: Order Comment: Waive d Testing in the ED is performed under the ED CLIA certificate #[id number]. Result Comment: mmah [email or web address] Performed By: #### L [id number] #### [facility] ([facility]) [address] [place] [address] Glucose [Mass/Vol] 128 mg/dL High 70-105 [facility] Comment on above: Order Comment: Waive d Testing in the ED is performed under the ED CLIA certificate #[id number]. Result Comment: vcar mon Performed By: #### L [id number] #### [facility] ([facility]ER) [address] [place] [address] Glucose [Mass/Vol] 143 mg/dL High 70-105 [facility] Comment on above: Order Comment: Waive d Testing in the ED is performed under the ED CLIA certificate #[id number]. Result Comment: vcar mon Performed By: #### L [id number] #### [facility] (BEAKER) [address] [place] [address] Glucose [Mass/Vol] 136 mg/dL High 70-105 [facility] Comment on above: Order Comment: Waive d Testing in the ED is performed under the ED CLIA certificate #[id number]. Result Comment: vcar mon Performed By: #### L [id number] #### [facility] ([facility]) [address] [place] [address] 30on 09-07-2023 30 The patient is Moderately Stable - Low risk of patient condition declining or worsening The patient's goals for the shift include comfort The clinical goals for the shift include vss Normal [facility] 09-07-2023 ANES - Attestation signed by Cody [...] attending and fellow. Additional Equipment Requests Normal [facility] HPon 09-07-2023 Cardiology History & Physical Chief Complaint: Dizziness HPI: Tere Hartmann is a 83 y.o. 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 History of PCI in ramus and RCA, [...] medical history of CHF (congestive heart failure) ([facility]), Coronary artery disease, Diabetes mellitus ([facility]), and Hyperlipidemia. Surgical History She has [...] Plan for PPM placement Vinny Bueno MD Advertising Copy Writer - PGY4 [facility] NURSNOTEon 09-07-2023 NURSNOTE CHG wipes and betadine nasal swabs completed. [facility] Orders Onlyon 09-07-2023 Orders Only [id number] Hartmann,Shirle y A 1940 F Date Provider Department Center 09/07/2023 148VINNY [facility]MER [facility] Family History Problem Relation Age of Onset Hypertension Mother Coronary artery disease Mother Coronary artery disease Father Hypertension Father Hypertension Sister Coronary artery disease Brother Family Status - Relation Status Age at Mother Father Sister Brother [facility] POCT GLUCOSE METER UNSOLICIT ED RESULTSon 09-07-2023 Glucose [Mass/Vol] 169 mg/dL High 70-105 [facility] Comment on above: Order Comment: Waive d Testing in the ED is performed under the ED CLIA certificate #[id number]. Result Comment: [email or web address] Performed By: #### L [id number] #### [facility] ([facility]) [address] [place] [address] Glucose [Mass/Vol] 70 mg/dL Normal 70-105 [facility] Comment on above: Order Comment: Waive d Testing in the ED is performed under the ED CLIA certificate #[id number]. Result Comment: [email or web address] Performed By: #### L [id number] #### [facility] ([facility]) [address] [place] [address] Office Visiton 06-03-2023 Follow-up visit [id number] Toya Hartmann 1940 F Date Provider Department Center 06/03/2023 JOSH BRIZUELA CARD [facility] Family History Problem Relation Age of Onset Hypertension Mother Coronary artery disease Mother Coronary artery disease Father Hypertension Father Hypertension Sister Coronary artery disease Brother Family Status - Relation Status Age at Mother Father Sister Brother Level of Service:08963 [place] OFFICE/OUTPATIENT ESTABLISHED LOW MDM 20-29 MIN Normal [facility] Outside Recordson 05-13-2023 Outside Records [id number]# 1.00CD:127 Normal [facility] Physician Orderon 05-13-2023 Physician Order [id number]# 1.00CD:127 Normal [facility] BNPon 11-24-2022 Natriuretic peptide B (Bld) [Mass/Vol] 703.0 pg/mL Normal <=1,800.0 [facility] Comment on above: Performed By: #### C VDTBH #### [facility] [address] [address] [address] Kesha Aguero CBC AUTO DIFFon 11-24-2022 BASO # 0.0 103/ul Normal 0.0-0.1 [facility] Comment on above: Performed By: #### D DIM #### [facility] [address] [address] [address] Kesha Aguero Basophils/100 WBC (Bld) 0.5 % Normal 0.2-2.0 [facility] Comment on above: Performed By: #### D DIM #### [facility] [address] [place] [address] Dr. Kesha Aguero EO # 0.1 103/ul Normal 0.0-0.7 [facility] Comment on above: Performed By: #### D DIM #### [facility] [address] [place] [address] Dr. Kesha Aguero Eosinophils/100 WBC (Bld) 1.4 % Normal 0.9-7.0 [facility] Comment on above: Performed By: #### D DIM #### [facility] [address] [place] [address] Dr. Kesha Aguero Erythrocyte distribution width (RBC) [Ratio] 14.9 % Normal 11.0-15.0 [facility] Comment on above: Performed By: #### D DIM #### [facility] [address] [place] [address] Dr. Kesha Aguero Hematocrit (Bld) [Volume fraction] 45.3 % Normal 36.0-48.0 [facility] Comment on above: Performed By: #### D DIM #### [facility] [address] [place] [address] Dr. Kesha Aguero Hemoglobin (Bld) [Mass/Vol] 13.9 g/dL Normal 12.0-16.0 [facility] Comment on above: Performed By: #### D DIM #### [facility] [address] [place] [address] Dr. Kesha Aguero IG # 0.02 10e3/ul Normal 0.00-0.03 [facility] Comment on above: Performed By: #### D DIM #### [facility] [address] [place] [address] Dr. Kesha Aguero IG % 0.2 % Normal 0.0-0.5 [facility] Comment on above: Performed By: #### D DIM #### [facility] [address] [place] [address] Dr. Kesha Aguero LYMPH # 2.6 103/ul Normal 1.2-3.8 [facility] Comment on above: Performed By: #### D DIM #### [facility] [address] [place] [address] Dr. Kesha Aguero Lymphocytes/100 WBC (Bld) 30.3 % Normal 20.5-60.0 [facility] Comment on above: Performed By: #### D DIM #### [facility] [address] [place] [address] Dr. Kesha Aguero MANUAL DIFF REQ NO Normal [facility] Comment on above: Performed By: #### D DIM #### [facility] [address] [place] [address] Dr. Kesha Aguero MCH (RBC) [Entitic mass] 25.6 pg Critically low 26.7-34.0 [facility] Comment on above: Performed By: #### D DIM #### [facility] [address] [place] [address] Dr. Kesha Aguero MCHC (RBC) [Mass/Vol] 30.7 g/dL Normal 29.9-35.2 [facility] Comment on above: Performed By: #### D DIM #### [facility] [address] [place] [address] Dr. Kesha Aguero MCV (RBC) [Entitic vol] 83.3 fL Normal 81.0-99.0 [facility] Comment on above: Performed By: #### D DIM #### [facility] [address] [place] [address] Dr. Kesha Aguero MONO # 0.6 103/ul Normal 0.3-0.8 [facility] Comment on above: Performed By: #### D DIM #### [facility] [address] [place] [address] Dr. Kesha Aguero Monocytes/100 WBC (Bld) 6.5 % Normal 1.7-12.0 [facility] Comment on above: Performed By: #### D DIM #### [facility] [address] [place] [address] Dr. Kesha Aguero NEUT # 5.1 103/ul Normal 1.4-6.5 [facility] Comment on above: Performed By: #### D DIM #### [facility] [address] [address] [address] Kesha Aguero Neutrophils/100 WBC (Bld) 61.1 % Normal 43.0-75.0 [facility] Comment on above: Performed By: #### D DIM #### [facility] [address] [address] [address] Kesha Aguero Platelet mean volume (Bld) [Entitic vol] 9.6 fL Normal 9.5-13.5 [facility] Comment on above: Performed By: #### D DIM #### [facility] [address] [place] [address] Dr. Kesha Aguero PLT 208 103/ul Normal 150-450 [facility] Comment on above: Performed By: #### D DIM #### [facility] [address] [place] [address] Dr. Kesha Aguero RBC 5.44 106/ul Critically high 4.20-5.40 [facility] Comment on above: Performed By: #### D DIM #### [facility] [address] [place] [address] Dr. Kesha Aguero WBC 8.4 103/ul Normal 4.0-11.0 [facility] Comment on above: Performed By: #### D DIM #### [facility] [address] [place] [address] Dr. Kesha Aguero CULTURE BLOODon 11-24-2022 Microscopic examination of blood, culture Culture Observations: NO GROWTH AT 5 DAYS. Isolate 1 BC_BA_NA Normal [facility] Comment on above: Performed By: #### B [id number] #### [facility] [address] [place] [address] Dr. Kesha Aguero Microscopic examination of blood, culture Culture Observations: NO GROWTH AT 5 DAYS. Isolate 1 BC_BA_NA Normal [facility] Comment on above: Performed By: #### C VDTBH #### [facility] [address] [place] [address] Dr. Kesha Aguero CULTURE URINEon 11-24-2022 CULTURE URINE Culture Observations : LIGHT GROWTH OF MIXED GENITAL SANTY. NO POTENTIAL PATHOGENS SEEN. Normal [facility] Comment on above: Performed By: #### C VDTBH #### [facility] [address] [place] [address] Dr. Kesha SAM URINE PROFILEon 3 Bilirubin Ql (U) Negative Normal NEGATIVE [facility] Comment on above: Performed By: #### D DIM #### [facility] [address] [place] [address] Dr. Kesha Aguero Clarity (U) CLEAR Normal CLEAR [facility] Comment on above: Performed By: #### D DIM #### [facility] [address] [place] [address] Dr. Kesha Aguero Color (U) DK. YELLOW Normal YELLOW [facility] Comment on above: Performed By: #### D DIM #### [facility] [address] [place] [address] Dr. Kesha Aguero ERUAHCurtis A micrscopic examination will be performed if indicated. Normal [facility] Comment on above: Performed By: #### D DIM #### [facility] [address] [place] [address] Dr. Kesha Aguero Glucose Ql (U) >1000 Abnormal NEGATIVE [facility] Comment on above: Performed By: #### D DIM #### [facility] [address] [place] [address] Dr. Kesha Aguero Hemoglobin Ql (U) Negative Normal NEGATIVE [facility] Comment on above: Performed By: #### D DIM #### [facility] [address] [place] [address] Dr. Kesha Aguero Ketones Ql (U) Negative Normal NEGATIVE [facility] Comment on above: Performed By: #### D DIM #### [facility] [address] [place] [address] Dr. Kesha Aguero LEUKOCYTES Negative Normal NEGATIVE [facility] Comment on above: Performed By: #### D DIM #### [facility] [address] [place] [address] Dr. Kesha Aguero Nitrite Ql (U) Positive Abnormal NEGATIVE [facility] Comment on above: Performed By: #### D DIM #### [facility] [address] [place] [address] Dr. Kesha Aguero pH (U) 6.0 [pH] Normal 5-9 [facility] Comment on above: Performed By: #### D DIM #### [facility] [address] [place] [address] Dr. Kesha Aguero SPEC GRAVITY <=1.005 Abnormal 1.005-<=1.02 5 [facility] Comment on above: Performed By: #### D DIM #### [facility] [address] [place] [address] Dr. Kesha Aguero UA PROTEIN Negative Normal NEGATIVE/ TRACE [facility] Comment on above: Performed By: #### D DIM #### [facility] [address] [place] [address] Dr. Kesha Aguero UR MICRO IND INDICATED Normal [facility] Comment on above: Performed By: #### D DIM #### [facility] [address] [place] [address] Dr. Kesha Aguero Urobilinogen Qn (U) 0.2 {Allison'U}/dL Normal 0.2 - 1. 0 [facility] Comment on above: Performed By: #### D DIM #### [facility] [address] [place] [address] Dr. Kesha Aguero LACTATE/LACTIC ACIDon 2022 Lactate [Moles/Vol] 1.0 mmol/L Normal 0.4-2.0 [facility] Comment on above: Performed By: #### C VDTBH #### [facility] [address] [place] [address] Dr. Kesha Aguero PROF 14(COMP METB)on 023 Albumin [Mass/Vol] 3.8 g/dL Normal 3.4-5.0 [facility] Comment on above: Performed By: #### C VDTBH #### [facility] [address] [place] [address] Dr. Kesha Aguero Albumin/Globulin [Mass ratio] 1.1 {ratio} Normal [facility] Comment on above: Performed By: #### C VDTBH #### [facility] [address] [place] [address] Dr. Kesha Aguero ALP [Catalytic activity/Vol] 118 U/L Critically high 46-116 [facility] Comment on above: Performed By: #### C VDTBH #### [facility] [address] [place] [address] Dr. Kesha Aguero ALT [Catalytic activity/Vol] 41 U/L Normal 14-59 [facility] Comment on above: Performed By: #### C VDTBH #### [facility] [address] [address] [address] Kesha Aguero Anion gap [Moles/Vol] 14.3 mmol/L Normal [facility] Comment on above: Performed By: #### C VDTBH #### [facility] [address] [place] [address] Dr. Kesha Aguero AST [Catalytic activity/Vol] 23 U/L Normal 15-37 [facility] Comment on above: Performed By: #### C VDTBH #### [facility] [address] [place] [address] Dr. Kesha Aguero Bilirubin [Mass/Vol] 0.5 mg/dL Normal 0.2-1.0 [facility] Comment on above: Performed By: #### C VDTBH #### [facility] [address] [place] [address] Dr. Kesha Aguero Calcium [Mass/Vol] 9.3 mg/dL Normal 8.5-10.1 [facility] Comment on above: Performed By: #### C VDTBH #### [facility] [address] [place] [address] Dr. Kesha Aguero Chloride [Moles/Vol] 106 mmol/L Normal 98-107 [facility] Comment on above: Performed By: #### C VDTBH #### [facility] [address] [address] [address] Kesha Aguero CO2 [Moles/Vol] 26.4 mmol/L Normal 21.0-32.0 [facility] Comment on above: Performed By: #### C VDTBH #### [facility] [address] [address] [address] Kesha Aguero Creatinine [Mass/Vol] 0.92 mg/dL Normal 0.55-1.02 [facility] Comment on above: Performed By: #### C VDTBH #### [facility] [address] [address] [address] Kesha Aguero EGFR-AF MAURITIAN >60 Normal >=60 [facility] Comment on above: Performed By: #### C VDTBH #### [facility] [address] [address] [address] Kesha Aguero EGFR-NON AF MAURITIAN 58 mL/min/1.73m2 Critically low >=60 [facility] Comment on above: Performed By: #### C VDTBH #### [facility] [address] [address] [address] Kesha Aguero Globulin (S) [Mass/Vol] 3.5 g/dL Normal [facility] Comment on above: Performed By: #### C VDTBH #### [facility] [address] [address] [address] Kesha Aguero Glucose [Mass/Vol] 184 mg/dL Critically high 74-106 [facility] Comment on above: Performed By: #### C VDTBH #### [facility] [address] [address] [address] Kesha Aguero Potassium [Moles/Vol] 4.7 mmol/L Normal 3.5-5.1 [facility] Comment on above: Performed By: #### C VDTBH #### [facility] [address] [address] [address] Kesha Aguero Protein [Mass/Vol] 7.3 g/dL Normal 6.4-8.2 [facility] Comment on above: Performed By: #### C VDTBH #### [facility] [address] [address] [address] Kesha Aguero Sodium [Moles/Vol] 142 mmol/L Normal 136-145 [facility] Comment on above: Performed By: #### C VDTBH #### [facility] [address] [address] [address] Kesha Aguero Urea nitrogen [Mass/Vol] 18.0 mg/dL Normal 7.0-18.0 [facility] Comment on above: Performed By: #### C VDTBH #### [facility] [address] [place] [address] Dr. Kesha Aguero Urea nitrogen/Creatinine [Mass ratio] 19.6 mg/mg Normal [facility] Comment on above: Performed By: #### C VDTBH #### [facility] [address] [place] [address] Dr. Kesha Aguero TROPONIN, HIGH SENSITIVITYon 11-24-2022 HSTROP 9.2 pg/mL Normal 4.0-51.3 [facility] Comment on above: Result Comment: CUT- OFF POINTS HAVE BEEN ESTABLISHED BASED ON THE FOURTH UNIVERSAL DEFINITIONS OF MYOCARDIAL INFARCTION. THE UPPER REFERENCE LIMIT (URL) OF TROPONIN, DEFINED THE 99TH PERCENTILE OF cTnI DISTRIBUTION IN A REFERENCE POPULATION, HAS BEEN CONFIRMED THE DECISION THRESHOLD FOR [place] DIAGNOSIS. Performed By: #### A CETON #### [facility] [address] [place] [address] Dr. Kesha Aguero HSTROP 9.5 pg/mL Normal 4.0-51.3 [facility] Comment on above: Result Comment: CUT- OFF POINTS HAVE BEEN ESTABLISHED BASED ON THE FOURTH UNIVERSAL DEFINITIONS OF MYOCARDIAL INFARCTION. THE UPPER REFERENCE LIMIT (URL) OF TROPONIN, DEFINED THE 99TH PERCENTILE OF cTnI DISTRIBUTION IN A REFERENCE POPULATION, HAS BEEN CONFIRMED THE DECISION THRESHOLD FOR [place] DIAGNOSIS. Performed By: #### C VDTBH #### [facility] [address] [place] [address] Dr. Kesha Aguero URINE MICROSCOPIC ONLYon BACTERIA TRACE Abnormal NONE SEEN [facility] Comment on above: Performed By: #### C VDTBH #### [facility] [address] [place] [address] Dr. Kesha Aguero Bacteria identified Cx Nom (U) INDICATED Normal [facility] Comment on above: Performed By: #### C VDTBH #### [facility] [address] [place] [address] Dr. Kesha Aguero CAST NONE SEEN Normal NONE SEEN [facility] Comment on above: Performed By: #### C VDTBH #### [facility] [address] [place] [address] Dr. Kesha Aguero Crystals LM Nom (Urine sed) NONE SEEN Normal NONE SEEN [facility] Comment on above: Performed By: #### C VDTBH #### [facility] [address] [place] [address] Dr. Kesha Aguero Epithelial cells LM Ql (Urine sed) FEW Abnormal NONE SEEN /RARE [facility] Comment on above: Performed By: #### C VDTBH #### [facility] [address] [place] [address] Dr. Kesha Aguero MUCOUS NONE SEEN Normal NONE SEEN [facility] Comment on above: Performed By: #### C VDTBH #### [facility] [address] [place] [address] Dr. Kesha Aguero RBC 0-2 Normal 0-2 [facility] Comment on above: Performed By: #### C VDTBH #### [facility] [address] [place] [address] Dr. Kesha Aguero WBC 2-5 Abnormal NONE SEEN [facility] Comment on above: Performed By: #### C VDTBH #### [facility] [address] [place] [address] Dr. Kesha Aguero XR DEXA BONE DENSITYon [...] by: [place] Date: 2022-09-29 12:45 Normal [facility] CT HEAD WO CONon 08-29-2022 CT [...] by: EDWIGE ZAVALETA Date: 2022-08-29 14:04 Normal [facility] POINT OF CARE GLUCOSEon 12-3 Glucose [Mass/Vol] 279 mg/dL Critically high 74-106 [facility] Comment on above: Performed By: #### C [facility] #### [facility] [address] [address] [address] Kesha Aguero Glucose [Mass/Vol] 65 mg/dL Critically low 74-106 [facility] Comment on above: Performed By: #### C VDTBH #### [facility] [address] [place] [address] Dr. Kesha Aguero BNPon 08-28-2022 Natriuretic peptide B (Bld) [Mass/Vol] 673.0 pg/mL Normal <=1,800.0 [facility] Comment on above: Performed By: #### C VDTBH #### [facility] [address] [place] [address] Dr. Kesha Aguero CARDIAC KARLIE ADMITon 022 CK [Catalytic activity/Vol] 33 U/L Normal 26-192 [facility] Comment on above: Performed By: #### C VDTBH #### [facility] [address] [place] [address] Dr. Kesha Aguero CK.MB [Mass/Vol] 0.58 ng/mL Normal <=3.60 [facility] Comment on above: Performed By: #### C VDTBH #### [facility] [address] [place] [address] Dr. Kesha Aguero HSTROP 11.2 pg/mL Normal 4.0-51.3 [facility] Comment on above: Result Comment: CUT- OFF POINTS HAVE BEEN ESTABLISHED BASED ON THE FOURTH UNIVERSAL DEFINITIONS OF MYOCARDIAL INFARCTION. THE UPPER REFERENCE LIMIT (URL) OF TROPONIN, DEFINED THE 99TH PERCENTILE OF cTnI DISTRIBUTION IN A REFERENCE POPULATION, HAS BEEN CONFIRMED THE DECISION THRESHOLD FOR [place] DIAGNOSIS. Performed By: #### C VDTBH #### [facility] [address] [place] [address] Dr. Kesha Aguero ELIAS 48 ng/mL Normal 9-82 [facility] Comment on above: Performed By: #### C VDTBH #### [facility] [address] [place] [address] Dr. Kesha Aguero CBC AUTO DIFFon 08-28-2022 BASO # 0.1 103/ul Normal 0.0-0.1 [facility] Comment on above: Performed By: #### C VDTBH #### [facility] [address] [place] [address] Dr. Kesha Aguero Basophils/100 WBC (Bld) 0.6 % Normal 0.2-2.0 [facility] Comment on above: Performed By: #### C VDTBH #### [facility] [address] [place] [address] Dr. Kesha Aguero EO # 0.2 103/ul Normal 0.0-0.7 [facility] Comment on above: Performed By: #### C VDTBH #### [facility] [address] [place] [address] Dr. Kesha Aguero Eosinophils/100 WBC (Bld) 2.3 % Normal 0.9-7.0 [facility] Comment on above: Performed By: #### C VDTBH #### [facility] [address] [place] [address] Dr. Kesha Aguero Erythrocyte distribution width (RBC) [Ratio] 15.7 % Critically high 11.0-15.0 [facility] Comment on above: Performed By: #### C VDTBH #### [facility] [address] [place] [address] Dr. Kesha Aguero Hematocrit (Bld) [Volume fraction] 44.6 % Normal 36.0-48.0 [facility] Comment on above: Performed By: #### C VDTBH #### [facility] [address] [place] [address] Dr. Kesha Aguero Hemoglobin (Bld) [Mass/Vol] 14.4 g/dL Normal 12.0-16.0 [facility] Comment on above: Performed By: #### C VDTBH #### [facility] [address] [place] [address] Dr. Kesha Aguero IG # 0.02 10e3/ul Normal 0.00-0.03 [facility] Comment on above: Performed By: #### C VDTBH #### [facility] [address] [place] [address] Dr. Kesha Aguero IG % 0.3 % Normal 0.0-0.5 [facility] Comment on above: Performed By: #### C VDTBH #### [facility] [address] [place] [address] Dr. Kesha Aguero LYMPH # 3.5 103/ul Normal 1.2-3.8 [facility] Comment on above: Performed By: #### C VDTBH #### [facility] [address] [place] [address] Dr. Kesha Aguero Lymphocytes/100 WBC (Bld) 43.6 % Normal 20.5-60.0 [facility] Comment on above: Performed By: #### C VDTBH #### [facility] [address] [place] [address] Dr. Kesha Aguero MANUAL DIFF REQ NO Normal [facility] Comment on above: Performed By: #### C VDTBH #### [facility] [address] [place] [address] Dr. Kesha Aguero MCH (RBC) [Entitic mass] 25.9 pg Critically low 26.7-34.0 [facility] Comment on above: Performed By: #### C VDTBH #### [facility] [address] [place] [address] Dr. Kesha Aguero MCHC (RBC) [Mass/Vol] 32.3 g/dL Normal 29.9-35.2 [facility] Comment on above: Performed By: #### C VDTBH #### [facility] [address] [place] [address] Dr. Kesha Aguero MCV (RBC) [Entitic vol] 80.4 fL Critically low 81.0-99. 0 [facility] Comment on above: Performed By: #### C VDTBH #### [facility] [address] [place] [address] Dr. Kesha Aguero MONO # 0.5 103/ul Normal 0.3-0.8 [facility] Comment on above: Performed By: #### C VDTBH #### [facility] [address] [place] [address] Dr. Kesha Aguero Monocytes/100 WBC (Bld) 6.0 % Normal 1.7-12.0 [facility] Comment on above: Performed By: #### C VDTBH #### [facility] [address] [place] [address] Dr. Kesha Aguero NEUT # 3.8 103/ul Normal 1.4-6.5 [facility] Comment on above: Performed By: #### C VDTBH #### [facility] [address] [place] [address] Dr. Kesha Aguero Neutrophils/100 WBC (Bld) 47.2 % Normal 43.0-75.0 [facility] Comment on above: Performed By: #### C VDTBH #### [facility] [address] [place] [address] Dr. Kesha Aguero Platelet mean volume (Bld) [Entitic vol] 9.7 fL Normal 9.5-13.5 [facility] Comment on above: Performed By: #### C VDTBH #### [facility] [address] [place] [address] Dr. Kesha Aguero PLT 269 103/ul Normal 150-450 [facility] Comment on above: Performed By: #### C VDTBH #### [facility] [address] [place] [address] Dr. Kesha Aguero RBC 5.55 106/ul Critically high 4.20-5.40 [facility] Comment on above: Performed By: #### C VDTBH #### [facility] [facility] [address] [place] [address] Dr. Kesha Aguero WBC 8.0 103/ul Normal 4.0-11.0 [facility] Comment on above: Performed By: #### C VDTBH #### [facility] [address] [place] [address] Dr. Kesha Aguero [facility]-01 SARS-CoV-2 (COVID-19) RNA YARA+probe Ql (Unsp spec) Not detected Normal NOT DETECTED [facility] Comment on above: Result Comment: When [...] for this test is supported by the [place] of Health and Human Service's declaration that [...] used). Performed By: #### C VDTBH #### [facility] [address] [place] [address] Dr. Kesha Aguero POINT OF CARE GLUCOSEon 08-01 Glucose [Mass/Vol] 157 mg/dL Critically high 74-106 [facility] Comment on above: Performed By: #### D DIM #### [facility] [address] [place] [address] Dr. Kesha Aguero Glucose [Mass/Vol] 170 mg/dL Critically high -106 [facility] Comment on above: Performed By: #### C VDTBH #### [facility] [address] [place] [address] Dr. Kesha Aguero PROF CHEM 8 (BAS METB)on Anion gap [Moles/Vol] 14.2 mmol/L Normal [facility] Comment on above: Performed By: #### C VDTBH #### [facility] [address] [place] [address] Dr. Kesha Aguero Calcium [Mass/Vol] 9.8 mg/dL Normal 8.5-10.1 [facility] Comment on above: Performed By: #### C VDTBH #### [facility] [address] [place] [address] Dr. Kesha Aguero Chloride [Moles/Vol] 104 mmol/L Normal 98-107 [facility] Comment on above: Performed By: #### C VDTBH #### [facility] [address] [address] [address] Kesha Aguero CO2 [Moles/Vol] 25.6 mmol/L Normal 21.0-32.0 [facility] Comment on above: Performed By: #### C VDTBH #### [facility] [address] [address] [address] Kesha Aguero Creatinine [Mass/Vol] 1.00 mg/dL Normal 0.55-1.02 [facility] Comment on above: Performed By: #### C VDTBH #### [facility] [address] [address] [address] Kesha Aguero EGFR-AF MAURITIAN >60 Normal >=60 [facility] Comment on above: Performed By: #### C VDTBH #### [facility] [address] [address] [address] Kesha Aguero EGFR-NON AF MAURITIAN 53 mL/min/1.73m2 Critically low >=60 [facility] Comment on above: Performed By: #### C VDTBH #### [facility] [address] [address] [address] Kesha Aguero Glucose [Mass/Vol] 151 mg/dL Critically high 74-106 [facility] Comment on above: Performed By: #### C VDTBH #### [facility] [address] [address] [address] Kesha Aguero Potassium [Moles/Vol] 3.8 mmol/L Normal 3.5-5.1 [facility] Comment on above: Performed By: #### C VDTBH #### [facility] [address] [address] [address] Kesha Aguero Sodium [Moles/Vol] 140 mmol/L Normal 136-145 [facility] Comment on above: Performed By: #### C VDTBH #### [facility] [address] [address] [address] Kesha Aguero Urea nitrogen [Mass/Vol] 19.0 mg/dL Critically high 7.0-18.0 [facility] Comment on above: Performed By: #### C VDTBH #### [facility] [address] [place] [address] Dr. Kesha Aguero Urea nitrogen/Creatinine [Mass ratio] 19.0 mg/mg Normal [facility] Comment on above: Performed By: #### C VDTBH #### [facility] [address] [place] [address] Dr. Kesha Aguero PROTIMEon 08-28-2022 INR Coag (PPP) [Relative time] 0.97 {INR} Normal [facility] Comment on above: Performed By: #### C VDTBH #### [facility] [address] [place] [address] Dr. Kesha Aguero INR GUIDELINES SEE BELOW Normal [facility] Comment on above: Result Comment: GUY RED INR: 2.0 - 3.0 CONDITIONS NOT LISTED BELOW 2.5 - 3.5 FOR PROSTHETIC HEART VALVE REPLACEMENT 2.5 - 3.5 RECURRENT THROMBOSIS Performed By: #### C VDTBH #### [facility] [address] [place] [address] Dr. Kesha Aguero PT Coag (PPP) [Time] 10.5 s Normal 9.0-11.6 [facility] Comment on above: Performed By: #### C VDTBH #### [facility] [address] [place] [address] Dr. Kesha Aguero PTTon 08-28-2022 aPTT Coag (Bld) [Time] 27.1 s Normal 22.3-36.2 [facility] Comment on above: Performed By: #### C VDTBH #### [facility] [address] [place] [address] Dr. Kesha Aguero TROPONIN, HIGH SENSITIVITYon 08-28-2022 HSTROP 14.8 pg/mL Normal 4.0-51.3 [facility] Comment on above: Result Comment: CUT- OFF POINTS HAVE BEEN ESTABLISHED BASED ON THE FOURTH UNIVERSAL DEFINITIONS OF MYOCARDIAL INFARCTION. THE UPPER REFERENCE LIMIT (URL) OF TROPONIN, DEFINED THE 99TH PERCENTILE OF cTnI DISTRIBUTION IN A REFERENCE POPULATION, HAS BEEN CONFIRMED THE DECISION THRESHOLD FOR [place] DIAGNOSIS. Performed By: #### C VDTBH #### [facility] [address] [place], [place] [address] Dr. Kesha Aguero HSTROP 13.5 pg/mL Normal 4.0-51.3 [facility] Comment on above: Result Comment: CUT- OFF POINTS HAVE BEEN ESTABLISHED BASED ON THE FOURTH UNIVERSAL DEFINITIONS OF MYOCARDIAL INFARCTION. THE UPPER REFERENCE LIMIT (URL) OF TROPONIN, DEFINED THE 99TH PERCENTILE OF cTnI DISTRIBUTION IN A REFERENCE POPULATION, HAS BEEN CONFIRMED THE DECISION THRESHOLD FOR [place] DIAGNOSIS. Performed By: #### D DIM #### [facility] [address] [place], [place] [address] Dr. Kesha Aguero US JCARLOS DOP LEG [...] by: CARMEN LOTT Date: 2022-08-28 13:22 Normal [facility] XR CHEST 1 Von 08-28-2022 XR CHEST 1 V EXAM: CHEST 1 VIEW HISTORY: CHEST PAIN, UNSPECIFIED TECHNIQUE: Chest, one view. COMPARISON: 06/06/2022. FINDINGS: Lungs are clear. No focal consolidation, pleural effusion, or pneumothorax. Pulmonary vasculature is within normal limits. Cardiomediastinal silhouette is normal. IMPRESSION: 1. No acute cardiopulmonary disease. Electronically authenticated by: JEAN-CLAUDE [employer] Date: 2022-08-28 08:34 Normal [facility] CT ABDOMEN WO/W CONon 2021 CT [...] [place] Date: 2022-08-18 22:44 Normal [facility] CREATININEon 08-18-2022 Creatinine [Mass/Vol] 1.04 mg/dL Critically high 0.55-1.02 [facility] Comment on above: Performed By: #### C VDTB #### [facility] [address] [address] [address] Kesha Aguero EGFR-AF MAURITIAN >60 Normal >=60 [facility] Comment on above: Performed By: #### C VDTBH #### [facility] [address] [address] [address] Kesha Aguero EGFR-NON AF MAURITIAN 51 mL/min/1.73m2 Critically low >=60 [facility] Comment on above: Performed By: #### C VDTBH #### [facility] [address] [address] [address] Kesha Aguero ECHOCARDIO M/2D COMPLETEon 1 10-19-2021 ECHOCARDIO M/2D COMPLETE Patient: TERE HARTMANN Exam Date: 08/18/2022 : 1940 Gender:F Ordering : ABBIE CRISOSTOMO Admission #: [id number] Family : DR RODRICK BUTLER M.D. Order #: [id number] CLICK HERE TO VIEW EXAM ECHOCARDIOGRAM REPORT [...] Jackson M.D. on 08/21/2022 at 15:17 Normal [facility] ALDOSTERONE: RENIN RATIOon 1 Aldos/Renin Ratio 2.5 Normal 0.0-30.0 [facility] Comment on above: Result Comment: Unit s: ng/dL per ng/mL/hr Performed By: #### A LDOREN #### [facility] [address] [address] [address] Kesha Aguero Aldosterone 7.4 ng/dL Normal 0.0-30.0 [facility] Comment on above: Performed By: #### A LDOREN #### [facility] [address] [place] [address] Dr. Kesha Aguero Renin Activity, Plasma 3.015 ng/mL/hr Normal 0.167-5.3 80 [facility] Comment on above: Performed By: #### A LDOREN #### [facility] [address] [place] [address] Dr. Kesha Aguero METANEPHRINES PLASMA FREEon 06-18-2022 Metanephrine, Pl 11.8 pg/mL Normal 0.0-88.0 [facility] Comment on above: Performed By: #### A CETON #### [facility] [address] [place] [address] Dr. Kesha Aguero Normetanephrine, Pl 103.3 pg/mL Normal 0.0-297.2 [facility] Comment on above: Performed By: #### A CETON #### [facility] [address] [place] [address] Dr. Kesha Aguero CORTISOLon 06-12-2022 Cortisol 5.5 ug/dL Normal [facility] Comment on above: Result Comment: Clement isol AM 6.2 - 19.4 Cortisol PM 2.3 - 11.9 Performed By: #### C VDTBH #### [facility] [address] [place] [address] Dr. Kesha Aguero PROF CHEM 8 (BAS METB)on Anion gap [Moles/Vol] 14.4 mmol/L Normal [facility] Comment on above: Performed By: #### A LDOREN #### [facility] [address] [place] [address] Dr. Kesha Aguero Calcium [Mass/Vol] 9.6 mg/dL Normal 8.5-10.1 [facility] Comment on above: Performed By: #### A LDOREN #### [facility] [address] [place] [address] Dr. Kesha Aguero Chloride [Moles/Vol] 103 mmol/L Normal 98-107 [facility] Comment on above: Performed By: #### A LDOREN #### [facility] [address] [place] [address] Dr. Kesha Aguero CO2 [Moles/Vol] 24.3 mmol/L Normal 21.0-32.0 [facility] Comment on above: Performed By: #### A LDOREN #### [facility] [address] [address] [address] Kesha Aguero Creatinine [Mass/Vol] 1.24 mg/dL Critically high 0.55-1.02 [facility] Comment on above: Performed By: #### A LDOREN #### [facility] [address] [address] [address] Kesha Aguero EGFR-AF MAURITIAN 50 mL/min/1.73m2 Critically low >=60 [facility] Comment on above: Performed By: #### A LDOREN #### [facility] [address] [address] [address] Kesha Aguero EGFR-NON AF MAURITIAN 41 mL/min/1.73m2 Critically low >=60 [facility] Comment on above: Performed By: #### A LDOREN #### [facility] [address] [place] [address] Dr. Kesha Aguero Glucose [Mass/Vol] 215 mg/dL Critically high 74-106 [facility] Comment on above: Performed By: #### A LDOREN #### [facility] [address] [place] [address] Dr. Kesha Aguero Potassium [Moles/Vol] 4.7 mmol/L Normal 3.5-5.1 [facility] Comment on above: Performed By: #### A LDOREN #### [facility] [address] [place] [address] Dr. Kesha Aguero Sodium [Moles/Vol] 137 mmol/L Normal 136-145 [facility] Comment on above: Performed By: #### A LDOREN #### [facility] [address] [address] [address] Kesha Aguero Urea nitrogen [Mass/Vol] 21.0 mg/dL Critically high 7.0-18.0 [facility] Comment on above: Performed By: #### A LDOREN #### [facility] [address] [place] [address] Dr. Kesha Aguero Urea nitrogen/Creatinine [Mass ratio] 16.9 mg/mg Normal [facility] Comment on above: Performed By: #### A LDOREN #### [facility] [address] [place] [address] Dr. Kesha Aguero CARDIAC KARLIE 3-6on 2 CK [Catalytic activity/Vol] 77 U/L Normal 26-192 [facility] Comment on above: Performed By: #### D DIM #### [facility] [address] [place] [address] Dr. Kesha Aguero CK.MB [Mass/Vol] 1.64 ng/mL Normal <=3.60 [facility] Comment on above: Performed By: #### D DIM #### [facility] [address] [place] [address] Dr. Kesha Aguero HSTROP 16.0 pg/mL Normal 4.0-51.3 [facility] Comment on above: Result Comment: CUT- OFF POINTS HAVE BEEN ESTABLISHED BASED ON THE FOURTH UNIVERSAL DEFINITIONS OF MYOCARDIAL INFARCTION. THE UPPER REFERENCE LIMIT (URL) OF TROPONIN, DEFINED THE 99TH PERCENTILE OF cTnI DISTRIBUTION IN A REFERENCE POPULATION, HAS BEEN CONFIRMED THE DECISION THRESHOLD FOR [place] DIAGNOSIS. Performed By: #### D DIM #### [facility] [address] [place] [address] Dr. Kesha Aguero CARDIAC KARLIE ADMITon 022 CK [Catalytic activity/Vol] 86 U/L Normal 26-192 [facility] Comment on above: Performed By: #### A CETON #### [facility] [address] [place] [address] Dr. Kesha Aguero CK.MB [Mass/Vol] 2.10 ng/mL Normal <=3.60 [facility] Comment on above: Performed By: #### A CETON #### [facility] [address] [place] [address] Dr. Kesha Aguero HSTROP 13.3 pg/mL Normal 4.0-51.3 [facility] Comment on above: Result Comment: CUT- OFF POINTS HAVE BEEN ESTABLISHED BASED ON THE FOURTH UNIVERSAL DEFINITIONS OF MYOCARDIAL INFARCTION. THE UPPER REFERENCE LIMIT (URL) OF TROPONIN, DEFINED THE 99TH PERCENTILE OF cTnI DISTRIBUTION IN A REFERENCE POPULATION, HAS BEEN CONFIRMED THE DECISION THRESHOLD FOR [place] DIAGNOSIS. Performed By: #### A CETON #### [facility] [address] [place] [address] Dr. Kesha Aguero ELIAS 78 ng/mL Normal 9-82 [facility] Comment on above: Performed By: #### A CETON #### [facility] [address] [place] [address] Dr. Kesha Aguero CBC AUTO DIFFon 06-06-2022 BASO # 0.0 103/ul Normal 0.0-0.1 [facility] Comment on above: Performed By: #### C VDTBH #### [facility] [address] [place] [address] Dr. Kesha Aguero Basophils/100 WBC (Bld) 0.4 % Normal 0.2-2.0 [facility] Comment on above: Performed By: #### C VDTBH #### [facility] [address] [place] [address] Dr. Kesha Aguero EO # 0.1 103/ul Normal 0.0-0.7 [facility] Comment on above: Performed By: #### C VDTBH #### [facility] [address] [place] [address] Dr. Kesha Aguero Eosinophils/100 WBC (Bld) 1.8 % Normal 0.9-7.0 [facility] Comment on above: Performed By: #### C VDTBH #### [facility] [address] [place] [address] Dr. Kesha Aguero Erythrocyte distribution width (RBC) [Ratio] 13.9 % Normal 11.0-15.0 [facility] Comment on above: Performed By: #### C VDTBH #### [facility] [address] [place] [address] Dr. Kesha Aguero Hematocrit (Bld) [Volume fraction] 40.7 % Normal 36.0-48.0 [facility] Comment on above: Performed By: #### C VDTBH #### [facility] [address] [place] [address] Dr. Kesha Aguero Hemoglobin (Bld) [Mass/Vol] 12.9 g/dL Normal 12.0-16.0 [facility] Comment on above: Performed By: #### C VDTBH #### [facility] [address] [place] [address] Dr. Kesha Aguero IG # 0.01 10e3/ul Normal 0.00-0.03 [facility] Comment on above: Performed By: #### C VDTBH #### [facility] [address] [place] [address] Dr. Kesha Aguero IG % 0.1 % Normal 0.0-0.5 [facility] Comment on above: Performed By: #### C VDTBH #### [facility] [address] [place] [address] Dr. Kesha Aguero LYMPH # 2.6 103/ul Normal 1.2-3.8 [facility] Comment on above: Performed By: #### C VDTBH #### [facility] [address] [place] [address] Dr. Kesha Aguero Lymphocytes/100 WBC (Bld) 33.6 % Normal 20.5-60.0 [facility] Comment on above: Performed By: #### C VDTBH #### [facility] [address] [place] [address] Dr. Kesha Aguero MANUAL DIFF REQ NO Normal [facility] Comment on above: Performed By: #### C VDTBH #### [facility] [address] [place] [address] Dr. Kesha Aguero MCH (RBC) [Entitic mass] 26.5 pg Critically low 26.7-34.0 [facility] Comment on above: Performed By: #### C VDTBH #### [facility] [address] [place] [address] Dr. Kesha Aguero MCHC (RBC) [Mass/Vol] 31.7 g/dL Normal 29.9-35.2 [facility] Comment on above: Performed By: #### C VDTBH #### [facility] [address] [place] [address] Dr. Kesha Aguero MCV (RBC) [Entitic vol] 83.6 fL Normal 81.0-99.0 [facility] Comment on above: Performed By: #### C VDTBH #### [facility] [address] [place] [address] Dr. Kesha Aguero MONO # 0.6 103/ul Normal 0.3-0.8 [facility] Comment on above: Performed By: #### C VDTBH #### [facility] [address] [place] [address] Dr. Kesha Aguero Monocytes/100 WBC (Bld) 7.7 % Normal 1.7-12.0 [facility] Comment on above: Performed By: #### C VDTBH #### [facility] [address] [place] [address] Dr. Kesha Aguero NEUT # 4.3 103/ul Normal 1.4-6.5 [facility] Comment on above: Performed By: #### C VDTBH #### [facility] [address] [place] [address] Dr. Kesha Aguero Neutrophils/100 WBC (Bld) 56.4 % Normal 43.0-75.0 [facility] Comment on above: Performed By: #### C VDTBH #### [facility] [address] [place] [address] Dr. Kesha Aguero Platelet mean volume (Bld) [Entitic vol] 11.2 fL Normal 9.5-13.5 [facility] Comment on above: Performed By: #### C VDTBH #### [facility] [address] [place] [address] Dr. Kesha Aguero PLT 267 103/ul Normal 150-450 [facility] Comment on above: Performed By: #### C VDTBH #### [facility] [address] [place] [address] Dr. Kesha Aguero RBC 4.87 106/ul Normal 4.20-5.40 [facility] Comment on above: Performed By: #### C VDTBH #### [facility] [address] [place] [address] Dr. Kesha Aguero WBC 7.7 103/ul Normal 4.0-11.0 [facility] Comment on above: Performed By: #### C [facility] #### [facility] [address] [place], [place] [address] Dr. Kesha Aguero CTA CHEST WO W [...] CHRISTINA MESSINA Date: 2022-06-06 03:54 Normal [facility] Covid-19 PCR (CVDTBH)on SARS-CoV-2 (COVID-19) RNA YARA+probe Ql (Unsp spec) Not detected Normal NOT DETECTED [facility] Comment on above: Result Comment: When [...] for this test is supported by the [place] of Health and Human Service's declaration that [...] used). Performed By: #### C VDTBH #### [facility] [address] [place] [address] Dr. Kesha Aguero D-DIMERon 06-06-2022 D-DIMER 0.86 mg/L FEU Critically high <=0.59 [facility] Comment on above: Performed By: #### D DIM #### [facility] [address] [place] [address] Dr. Kesha Aguero D-DIMER COMMENTS SEE BELOW Normal [facility] Comment on above: Result Comment: [...] hospitalization. Performed By: #### D DIM #### [facility] [address] [place] [address] Dr. Kesha Aguero PROF CHEM 8 (BAS METB)on Anion gap [Moles/Vol] 13.1 mmol/L Normal [facility] Comment on above: Performed By: #### A CETON #### [facility] [address] [address] [address] Kesha Aguero Calcium [Mass/Vol] 10.0 mg/dL Normal 8.5-10.1 [facility] Comment on above: Performed By: #### A CETON #### [facility] [address] [address] [address] Kesha Aguero Chloride [Moles/Vol] 106 mmol/L Normal 98-107 [facility] Comment on above: Performed By: #### A CETON #### [facility] [address] [place] [address] Dr. Kesha Aguero CO2 [Moles/Vol] 24.9 mmol/L Normal 21.0-32.0 [facility] Comment on above: Performed By: #### A CETON #### [facility] [address] [address] [address] Kesha Aguero Creatinine [Mass/Vol] 1.14 mg/dL Critically high 0.55-1.02 [facility] Comment on above: Performed By: #### A CETON #### [facility] [address] [address] [address] Kesha Aguero EGFR-AF MAURITIAN 55 mL/min/1.73m2 Critically low >=60 [facility] Comment on above: Performed By: #### A CETON #### [facility] [address] [address] [address] Kesha Aguero EGFR-NON AF MAURITIAN 46 mL/min/1.73m2 Critically low >=60 [facility] Comment on above: Performed By: #### A CETON #### [facility] [address] [address] [address] Kesha Aguero Glucose [Mass/Vol] 181 mg/dL Critically high 74-106 [facility] Comment on above: Performed By: #### A CETON #### [facility] [address] [address] [address] Kesha Aguero Potassium [Moles/Vol] 4.0 mmol/L Normal 3.5-5.1 [facility] Comment on above: Performed By: #### A CETON #### [facility] [address] [address] [address] Kehsa Aguero Sodium [Moles/Vol] 140 mmol/L Normal 136-145 [facility] Comment on above: Performed By: #### A CETON #### [facility] [address] [address] [address] Kesha Aguero Urea nitrogen [Mass/Vol] 24.0 mg/dL Critically high 7.0-18.0 [facility] Comment on above: Performed By: #### A CETON #### [facility] [address] [address] [address] Kesha Aguero Urea nitrogen/Creatinine [Mass ratio] 21.1 mg/mg Normal [facility] Comment on above: Performed By: #### A CETON #### [facility] [address] [address] [address] Kesha Aguero TROPONIN, HIGH SENSITIVITYon 06-06-2022 HSTROP 16.7 pg/mL Normal 4.0-51.3 [facility] Comment on above: Result Comment: CUT- OFF POINTS HAVE BEEN ESTABLISHED BASED ON THE FOURTH UNIVERSAL DEFINITIONS OF MYOCARDIAL INFARCTION. THE UPPER REFERENCE LIMIT (URL) OF TROPONIN, DEFINED THE 99TH PERCENTILE OF cTnI DISTRIBUTION IN A REFERENCE POPULATION, HAS BEEN CONFIRMED THE DECISION THRESHOLD FOR [place] DIAGNOSIS. Performed By: #### A LDOREN #### [facility] [address] [address] [address] Kesha Aguero XR CHEST 1 Von [...] by: CHRISTINA MESSINA Date: 2022-06-06 02:23 Normal [facility] Activated partial thrombopla stin time (aPTT) in platelet poor plasma by coagulation aOrdered By: Herminia Lawler on 05-11-2022 aPTT Coag (PPP) [Time] 43.7 s 25.1-36.5 [facility] Creatinine and Glomerular fi ltration rate.predicted panel (S/P/Bld)Ordered By: Hermiina Lawler on 05-11-2022 Creatinine [Mass/Vol] 0.97 mg/dL 0.44-1.03 [facility] Estimated glomerular filtrat ion rate (GFR) non- AmericanOrdered By: Herminia Lawler on 05-11-2022 GFR/1.73 sq M.predicted among non-blacks MDRD (S/P/Bld) [Vol rate/Area] 55 mL/Min [facility] Glucose Glucometer (BldC) [M ass/Vol]Ordered By: Herminia Lawler on 05-11-2022 Glucose [Mass/Vol] 281 mg/dL [facility] Comment on above: Random Glucose Refer ence Range is dependent on time and content of last meal. Glucose of more than 200 mg/dL in a nonstressed, ambulatory subject supports the diagnosis of Diabetes Mellitus. Laboratory - Chemistry and C hemistry - challengeOrdered By: Herminia Lawler on 05-11-2022 Magnesium [Mass/Vol] 1.7 mg/dL 1.6-2.6 [facility] No Panel InformationOrdered By: Herminia Lawler on 05-11-2022 Estimated GFR () > 60 mL/Min [facility] Comment on above: GFR estimated refere nce range: According to KDOQI guidelines, <60 ml/min/1.73m2 is sufficient to diagnose a patient with chronic kidney disease. Pharmacy Creatinine Clearance (Chem 42.73 [facility] Serum or plasma anion gap de terminationOrdered By: Herminia Lawler on 05-11-2022 Anion gap [Moles/Vol] 13.6 mmol/L 6.0-15.0 [facility] Serum or plasma calcium kristi urement (mass/volume)Ordered By: Herminia Lawler on 05-11-2022 Calcium [Mass/Vol] 9.8 mg/dL 8.2-10.2 [facility] Serum or plasma chloride dorys surement (moles/volume)Ordered By: Herminia Lawler on 05-11-2022 Chloride [Moles/Vol] 107 mmol/L 95-114 [facility] Serum or plasma glucose kristi urement (mass/volume)Ordered By: Herminia Lawler on 05-11-2022 Glucose [Mass/Vol] 187 mg/dL 70-100 [facility] Comment on above: ADA recommended refe rence range Random Glucose Reference Range is dependent on time and content of last meal. Glucose of more than 200 mg/dL in a nonstressed, ambulatory subject supports the diagnosis of Diabetes Mellitus. Serum or plasma potassium me asurement (moles/volume)Ordered By: Herminia Lawler on 05-11-2022 Potassium [Moles/Vol] 3.8 mmol/L 3.5-5.1 [facility] Serum or plasma sodium measu rement (moles/volume)Ordered By: Herminia Lawler on 05-11-2022 Sodium [Moles/Vol] 137 mmol/L 136-146 [facility] Serum or plasma total carbon dioxide measurement (moles/volume)Ordered By: Herminia Lawler on 05-11-2022 CO2 [Moles/Vol] 20.2 mmol/L 22.0-30.0 [facility] Serum or plasma urea nitroge n measurement (mass/volume)Ordered By: Herminia Lawler on 05-11-2022 Urea nitrogen [Mass/Vol] 21 mg/dL 9- [facility] Troponin I.cardiac [Mass/vol ume] in Serum or Plasma by High sensitivity methodOrdered By: Itz Townsend on 05-11-2022 Troponin I.cardiac High sensitivity method [Mass/Vol] 97 pg/mL 0-15 [facility] Comment on above: Results called at 0602 on 05/11/22 Albumin [Mass/volume] in Ser um or PlasmaOrdered By: Obaydah Daromar on 05-10-2022 Albumin [Mass/Vol] 2.9 g/dL 3.2-5.5 [facility] Basophils Auto (Bld) [#/Vol] Ordered By: Obaydah Daromar on 05-10-2022 Basophils (Bld) [#/Vol] 0.2 10*3/uL 0.0-0.2 [facility] Basophils/100 WBC Auto (Bld) Ordered By: Obaydah Daromar on 05-10-2022 Basophils/100 WBC (Bld) 2.8 % . [facility] Blood hemoglobin measurement (mass/volume)Ordered By: Obdarindaethan Perezomar on 05-10-2022 Hemoglobin (Bld) [Mass/Vol] 12.4 g/dL 11.8-15.4 [facility] Blood leukocytes automated c ount (number/volume)Ordered By: Obdarindaethan Perezomar on 05-10-2022 WBC (Bld) [#/Vol] 7.0 10*3/uL 4.5-11.0 [facility] Creatine kinase [Enzymatic a ctivity/volume] in Serum or PlasmaOrdered By: Darrion Gilbert on 05-10-2022 CK [Catalytic activity/Vol] 48 U/L 22-269 [facility] Eosinophils Auto (Bld) [#/Vo l]Ordered By: Obdarindaethan Perezomar on 05-10-2022 Eosinophils (Bld) [#/Vol] 0.2 10*3/uL 0.0-0.45 [facility] Eosinophils/100 WBC Auto (Bl d)Ordered By: Obdarindah Daromar on 05-10-2022 Eosinophils/100 WBC (Bld) 2.7 % . [facility] Erythrocyte distribution wid th Auto (RBC) [Ratio]Ordered By: Obdarindah Daromar on 05-10-2022 Erythrocyte distribution width (RBC) [Ratio] 15.2 % 11.9-15.3 [facility] Globulin Calc (S) [Mass/Vol] Ordered By: Obdarindah Daromar on 05-10-2022 Globulin (S) [Mass/Vol] 2.9 g/dL [facility] Hematocrit Auto (Bld) [Volum e fraction]Ordered By: Obaydah Daromar on 05-10-2022 Hematocrit (Bld) [Volume fraction] 37.8 % 34.0-46.4 [facility] Laboratory - Hematology and Cell countsOrdered By: Obaydah Daromar on 05-10-2022 Nucleated RBC/100 WBC (Bld) [Ratio] 0.3 % 0-0.5 [facility] Lymphocytes Auto (Bld) [#/Vo l]Ordered By: Obaydah Daromar on 05-10-2022 Lymphocytes (Bld) [#/Vol] 3.0 10*3/uL 1.00-4.8 [facility] Lymphocytes/100 WBC Auto (Bl d)Ordered By: Obaydah Daromar on 05-10-2022 Lymphocytes/100 WBC (Bld) 42.4 % . [facility] MCH Auto (RBC) [Entitic mass ]Ordered By: Obaydah Daromar on 05-10-2022 MCH (RBC) [Entitic mass] 26.4 pg 24.7-34.3 [facility] MCHC Auto (RBC) [Mass/Vol]Or dered By: Obaydah Daromar on 05-10-2022 MCHC (RBC) [Mass/Vol] 32.8 g/dL 32.0-35.0 [facility] MCV Auto (RBC) [Entitic vol] Ordered By: Obaydah Daromar on 05-10-2022 MCV (RBC) [Entitic vol] 80.5 fL 80-100 [facility] Monocytes Auto (Bld) [#/Vol] Ordered By: Obaydah Daromar on 05-10-2022 Monocytes (Bld) [#/Vol] 0.4 10*3/uL 0.0-0.8 [facility] Monocytes/100 WBC Auto (Bld) Ordered By: Obaydah Daromar on 05-10-2022 Monocytes/100 WBC (Bld) 6.4 % . [facility] Neutrophils Auto (Bld) [#/Vo l]Ordered By: Herminia Tysonr on 05-10-2022 Neutrophils (Bld) [#/Vol] 3.2 10*3/uL 1.8-7.7 [facility] Neutrophils/100 WBC Auto (Bl d)Ordered By: Herminia Perezomar on 05-10-2022 Neutrophils/100 WBC (Bld) 45.7 % . [facility] No Panel InformationOrdered By: Herminia Lawler on 05-10-2022 Bedside Glucose Comment Glu2: cleaned meter [facility] Platelet mean volume Auto (B ld) [Entitic vol]Ordered By: Herminia Tysonr on 05-10-2022 Platelet mean volume (Bld) [Entitic vol] 8.3 fL 6.3-10.7 [facility] Platelets Auto (Bld) [#/Vol] Ordered By: Herminia Lawler on 05-10-2022 Platelets (Bld) [#/Vol] 236 10*3/uL 150-450 [facility] Protein [Mass/volume] in Ser um or PlasmaOrdered By: Herminia Lawler on 05-10-2022 Protein [Mass/Vol] 5.8 g/dL 6.1-7.9 [facility] RBC Auto (Bld) [#/Vol]Ordere d By: Herminia Tysonr on 05-10-2022 RBC (Bld) [#/Vol] 4.70 10*6/uL 3.60-5.00 [facility] Serum or plasma alanine landa otransferase measurement without P-5'-P (enzymatic activiOrdered By: Herminia Lawler on 05-10-2022 ALT No additional P-5'-P [Catalytic activity/Vol] 18 U/L 10-60 [facility] Serum or plasma albumin/glob ulin mass ratioOrdered By: Herminia Lawler on 05-10-2022 Albumin/Globulin [Mass ratio] 1.0 {ratio} [facility] Serum or plasma alkaline jama sphatase measurement (enzymatic activity/volume)Ordered By: Herminia Lawler on 05-10-2022 ALP [Catalytic activity/Vol] 75 U/L 32-92 [facility] Serum or plasma aspartate am inotransferase measurement (enzymatic activity/volume)Ordered By: Herminia Lawler on 05-10-2022 AST [Catalytic activity/Vol] 18 U/L 10-42 [facility] Serum or plasma creatine kin ase MB (CKMB)/total creatine kinase (CK) ratio by calculaOrdered By: Darrion Gilbert on 05-10-2022 CK.MB Calc [Catalytic fraction] 6.8 % 0.00-2.50 [facility] Serum or plasma creatine kin ase MB measurement (mass/volume)Ordered By: Darrion Gilbert on 05-10-2022 CK.MB [Mass/Vol] 3.3 ng/mL 0.6-6.3 [facility] Serum or plasma total biliru bin measurement (mass/volume)Ordered By: Herminia Lawler on 05-10-2022 Bilirubin [Mass/Vol] 0.4 mg/dL 0.3-1.2 [facility] ACETONE SERUMon 05-09-2022 ACETONE Negative Normal NEGATIVE [facility] Comment on above: Performed By: #### A CETON #### [facility] [address] [place] [address] Dr. Kesha Aguero CBC AUTO DIFFon 05-09-2022 BASO # 0.0 103/ul Normal 0.0-0.1 [facility] Comment on above: Performed By: #### A CETON #### [facility] [address] [place] [address] Dr. Kesha Aguero Basophils/100 WBC (Bld) 0.5 % Normal 0.2-2.0 [facility] Comment on above: Performed By: #### A CETON #### [facility] [address] [place] [address] Dr. Kesha Aguero EO # 0.1 103/ul Normal 0.0-0.7 [facility] Comment on above: Performed By: #### A CETON #### [facility] [address] [place] [address] Dr. Kesha Aguero Eosinophils/100 WBC (Bld) 1.5 % Normal 0.9-7.0 [facility] Comment on above: Performed By: #### A CETON #### [facility] [address] [place] [address] Dr. Kesha Aguero Erythrocyte distribution width (RBC) [Ratio] 14.1 % Normal 11.0-15.0 [facility] Comment on above: Performed By: #### A CETON #### [facility] [address] [place] [address] Dr. Kesha Aguero Hematocrit (Bld) [Volume fraction] 40.7 % Normal 36.0-48.0 [facility] Comment on above: Performed By: #### A CETON #### [facility] [address] [place] [address] Dr. Kesha Aguero Hemoglobin (Bld) [Mass/Vol] 13.0 g/dL Normal 12.0-16.0 [facility] Comment on above: Performed By: #### A CETON #### [facility] [address] [place] [address] Dr. Kesha Aguero IG # 0.01 10e3/ul Normal 0.00-0.03 [facility] Comment on above: Performed By: #### A CETON #### [facility] [address] [place] [address] Dr. Kesha Aguero IG % 0.1 % Normal 0.0-0.5 [facility] Comment on above: Performed By: #### A CETON #### [facility] [address] [place] [address] Dr. Kesha Aguero LYMPH # 2.6 103/ul Normal 1.2-3.8 [facility] Comment on above: Performed By: #### A CETON #### [facility] [address] [place] [address] Dr. Kesha Aguero Lymphocytes/100 WBC (Bld) 33.0 % Normal 20.5-60.0 [facility] Comment on above: Performed By: #### A CETON #### [facility] [address] [place] [address] Dr. Kesha Aguero MANUAL DIFF REQ NO Normal [facility] Comment on above: Performed By: #### A CETON #### [facility] [address] [place] [address] Dr. Kesha Aguero MCH (RBC) [Entitic mass] 26.5 pg Critically low 26.7-34.0 [facility] Comment on above: Performed By: #### A CETON #### [facility] [address] [place] [address] Dr. Kesha Aguero MCHC (RBC) [Mass/Vol] 31.9 g/dL Normal 29.9-35.2 [facility] Comment on above: Performed By: #### A CETON #### [facility] [address] [place] [address] Dr. Kesha Aguero MCV (RBC) [Entitic vol] 82.9 fL Normal 81.0-99.0 [facility] Comment on above: Performed By: #### A CETON #### [facility] [address] [place] [address] Dr. Kesha Aguero MONO # 0.6 103/ul Normal 0.3-0.8 [facility] Comment on above: Performed By: #### A CETON #### [facility] [address] [place] [address] Dr. Kesha Aguero Monocytes/100 WBC (Bld) 7.1 % Normal 1.7-12.0 [facility] Comment on above: Performed By: #### A CETON #### [facility] [address] [place] [address] Dr. Kesha Aguero NEUT # 4.5 103/ul Normal 1.4-6.5 [facility] Comment on above: Performed By: #### A CETON #### [facility] [address] [place] [address] Dr. Kesha Aguero Neutrophils/100 WBC (Bld) 57.8 % Normal 43.0-75.0 [facility] Comment on above: Performed By: #### A CETON #### [facility] [address] [place] [address] Dr. Kesha Aguero Platelet mean volume (Bld) [Entitic vol] 10.4 fL Normal 9.5-13.5 [facility] Comment on above: Performed By: #### A CETON #### [facility] [address] [place] [address] Dr. Kesha Aguero PLT 208 103/ul Normal 150-450 [facility] Comment on above: Performed By: #### A CETON #### [facility] [address] [place] [address] Dr. Kesha Aguero RBC 4.91 106/ul Normal 4.20-5.40 [facility] Comment on above: Performed By: #### A CETON #### [facility] [address] [place] [address] Dr. Kesha Aguero WBC 7.9 103/ul Normal 4.0-11.0 [facility] Comment on above: Performed By: #### A CETON #### [facility] [address] [place] [address] Dr. Kesha Aguero CTA ABD/PELVIS WO W [...] by: [place] Date: 2022-05-09 07:19 Normal [facility] Cholesterol [Mass/volume] in Serum or PlasmaOrdered By: Herminia Lawler on 05-09-2022 Cholesterol [Mass/Vol] 112 mg/dL 140-200 [facility] Comment on above: Chol less than 200 m g/dl low risk Chol 201-239 mg/dl borderline risk Chol 240 mg/dl and greater high risk Cholesterol in LDL Calc [Mas s/Vol]Ordered By: Herminia Lawler on 05-09-2022 Cholesterol in LDL [Mass/Vol] 51 mg/dL 0-100 [facility] Comment on above: LDL ATP III CLASSIFI CATION LDL less than 100 mg/dL Optimal LDL 100-129 mg/dL Near or above optimal LDL 130-159 mg/dL Borderline high LDL 160-189 mg/dL High LDL greater than 189 mg/dL Very high Cholesterol in VLDL Calc [Ma ss/Vol]Ordered By: Herminia Lawler on 05-09-2022 Cholesterol in VLDL [Mass/Vol] 31 mg/dL [facility] Covid-19 PCR (CVDTB)on SARS-CoV-2 (COVID-19) RNA YARA+probe Ql (Unsp spec) Not detected Normal NOT DETECTED [facility] Comment on above: Result Comment: When [...] for this test is supported by the [place] of Health and Human Service's declaration that [...] longer be used). Performed By: #### C VDTB #### [facility] [address] [place] [address] Dr. Kesha Aguero Glucose mean value [Mass/vol ume] in Blood Estimated from glycated hemoglobinOrdered By: Herminia Lawler on 05-09-2022 Average glucose Estimated from glycated hemoglobin (Bld) [Mass/Vol] 263 mg/dL [facility] Hemoglobin A1c percentageOrd ered By: Herminia Lawler on 05-09-2022 HbA1c (Bld) [Mass fraction] 10.8 % 4.3-5.6 [facility] Comment on above: Increased risk for d iabetes: 5.7 - 6.4 diabetes: >6.4 glycemic control for adults with diabetes: <7.0 LIPASEon 05-09-2022 Lipase [Catalytic activity/Vol] 287.0 U/L Normal 73.0-393.0 [facility] Comment on above: Performed By: #### C VDTB #### [facility] [address] [place] [address] Dr. Kesha Aguero Laboratory - CoagulationOrde red By: Herminia Lawler on 05-09-2022 PT Coag (PPP) [Time] 11.6 s 9.0-12.9 [facility] POINT OF CARE GLUCOSEon Glucose [Mass/Vol] 387 mg/dL Critically high 74-106 [facility] Comment on above: Performed By: #### C VDTBH #### [facility] [address] [place] [address] Dr. Kesha Aguero Glucose [Mass/Vol] 432 mg/dL Critically high 74-106 [facility] Comment on above: Performed By: #### P OCGLUC #### [facility] [address] [place] [address] Dr. Kesha Aguero PROF 14(COMP METB)on 022 Albumin [Mass/Vol] 3.5 g/dL Normal 3.4-5.0 [facility] Comment on above: Performed By: #### C VDTBH #### [facility] [address] [place] [address] Dr. Kesha Aguero Albumin/Globulin [Mass ratio] 1.0 {ratio} Normal [facility] Comment on above: Performed By: #### C VDTBH #### [facility] [address] [place] [address] Dr. Kesha Aguero ALP [Catalytic activity/Vol] 115 U/L Normal 46-116 [facility] Comment on above: Performed By: #### C VDTBH #### [facility] [address] [place] [address] Dr. Kesha Aguero ALT [Catalytic activity/Vol] 24 U/L Normal 14-59 [facility] Comment on above: Performed By: #### C VDTBH #### [facility] [address] [place] [address] Dr. Kesha Aguero Anion gap [Moles/Vol] 15.3 mmol/L Normal [facility] Comment on above: Performed By: #### C VDTBH #### [facility] [address] [place] [address] Dr. Kesha Aguero AST [Catalytic activity/Vol] 16 U/L Normal 15-37 [facility] Comment on above: Performed By: #### C VDTBH #### [facility] [address] [place] [address] Dr. Kesha Aguero Bilirubin [Mass/Vol] 0.4 mg/dL Normal 0.2-1.0 [facility] Comment on above: Performed By: #### C VDTBH #### [facility] [address] [place] [address] Dr. Kesha Aguero Calcium [Mass/Vol] 9.6 mg/dL Normal 8.5-10.1 [facility] Comment on above: Performed By: #### C VDTBH #### [facility] [address] [place] [address] Dr. Kesha Aguero Chloride [Moles/Vol] 102 mmol/L Normal 98-107 [facility] Comment on above: Performed By: #### C VDTBH #### [facility] [address] [place] [address] Dr. Kesha Aguero CO2 [Moles/Vol] 19.7 mmol/L Critically low 21.0-32.0 [facility] Comment on above: Performed By: #### C VDTBH #### [facility] [address] [place] [address] Dr. Kesha Aguero Creatinine [Mass/Vol] 1.22 mg/dL Critically high 0.55-1.02 [facility] Comment on above: Performed By: #### C VDTBH #### [facility] [address] [place] [address] Dr. Kesha Aguero EGFR-AF MAURITIAN 51 mL/min/1.73m2 Critically low >=60 [facility] Comment on above: Performed By: #### C VDTBH #### [facility] [address] [place] [address] Dr. Kesha Aguero EGFR-NON AF MAURITIAN 42 mL/min/1.73m2 Critically low >=60 [facility] Comment on above: Performed By: #### C VDTBH #### [facility] [address] [place] [address] Dr. Kesha Aguero Globulin (S) [Mass/Vol] 3.6 g/dL Normal [facility] Comment on above: Performed By: #### C VDTBH #### [facility] [address] [address] [address] Kesha Aguero Glucose [Mass/Vol] 499 mg/dL Critically high 74-106 [facility] Comment on above: Performed By: #### C VDTBH #### [facility] [address] [address] [address] Kesha Aguero Potassium [Moles/Vol] 4.0 mmol/L Normal 3.5-5.1 [facility] Comment on above: Performed By: #### C VDTBH #### [facility] [address] [place] [address] Dr. Kesha Aguero Protein [Mass/Vol] 7.1 g/dL Normal 6.4-8.2 [facility] Comment on above: Performed By: #### C VDTBH #### [facility] [address] [place] [address] Dr. Kesha Aguero Sodium [Moles/Vol] 133 mmol/L Critically low 136-145 [facility] Comment on above: Performed By: #### C VDTBH #### [facility] [address] [place] [address] Dr. Kesha Aguero Urea nitrogen [Mass/Vol] 27.0 mg/dL Critically high 7.0-18.0 [facility] Comment on above: Performed By: #### C VDTBH #### [facility] [address] [place] [address] Dr. Kesha Aguero Urea nitrogen/Creatinine [Mass ratio] 22.1 mg/mg Normal [facility] Comment on above: Performed By: #### C VDTBH #### [facility] [address] [place] [address] Dr. Kesha Aguero Phosphate [Mass/volume] in S jefferson or PlasmaOrdered By: Herminia Lawler on 05-09-2022 Phosphate [Mass/Vol] 3.5 mg/dL 2.5-4.6 [facility] Platelet poor plasma interna tional normalized ratio (INR) by coagulation assay (relatOrdered By: Herminia Lawler on 05-09-2022 INR Coag (PPP) [Relative time] 1.0 {INR} [facility] Comment on above: INR Therapeutic Rang e [...] Cholesterol in HDL [Mass/Vol] 30 mg/dL 35-85 [facility] Comment on above: HDL CHOL ATP-III CLA SSIFICATION Cardiovascular Risk HDL > or equal to 60 mg/dL LOW HDL < 40 mg/dL HIGH Serum or plasma total choles terol/high density lipoprotein (HDL) cholesterol mass ratOrdered By: Herminia Lawler on 05-09-2022 Cholesterol.total/Shey sterol in HDL [Mass ratio] 3.7 {ratio} <5.0 [facility] TROPONIN, HIGH SENSITIVITYon 05-09-2022 HSTROP 603.9 pg/mL Critically high 4.0-51.3 [facility] Comment on above: Result Comment: CUT- OFF POINTS HAVE BEEN ESTABLISHED BASED ON THE FOURTH UNIVERSAL DEFINITIONS OF MYOCARDIAL INFARCTION. THE UPPER REFERENCE LIMIT (URL) OF TROPONIN, DEFINED THE 99TH PERCENTILE OF cTnI DISTRIBUTION IN A REFERENCE POPULATION, HAS BEEN CONFIRMED THE DECISION THRESHOLD FOR UT DIAGNOSIS. Performed By: #### A CETON #### [facility] [address] [place] [address] Dr. Kesha Aguero HSTROP 24.7 pg/mL Normal 4.0-51.3 [facility] Comment on above: Result Comment: CUT- OFF POINTS HAVE BEEN ESTABLISHED BASED ON THE FOURTH UNIVERSAL DEFINITIONS OF MYOCARDIAL INFARCTION. THE UPPER REFERENCE LIMIT (URL) OF TROPONIN, DEFINED THE 99TH PERCENTILE OF cTnI DISTRIBUTION IN A REFERENCE POPULATION, HAS BEEN CONFIRMED THE DECISION THRESHOLD FOR UT DIAGNOSIS. Performed By: #### C VDTBH #### [facility] [address] [place], [place] [address] Dr. Kesha Aguero Triglyceride [Mass/volume] i n Serum or PlasmaOrdered By: Herminia Lawler on 05-09-2022 Triglyceride [Mass/Vol] 156 mg/dL 35-149 [facility] Comment on above: TRIG ATP III CLASSIF ICATION TRIG less than 150 mg/dL Normal TRIG 150-199 mg/dL Borderline high TRIG 200-500 mg/dL High TRIG greater than 500 mg/dL Very high Standard traceable to the Center for Disease Conrtrol and Prevention (CDC) test method. Covid-19 PCR ([facility])on SARS-CoV-2 (COVID-19) RNA YARA+probe Ql (Unsp spec) Not detected Normal NOT DETECTED [facility] Comment on above: Result Comment: This test is not yet approved or cleared by the [place] FDA. When there are no FDA-approved or cleared tests available, and other criteria are met, FDA can make tests available under an emergency access mechanism called an Emergency Use Authorization (EUA). The EUA for this test is supported by the [employer] of Health and Human Service's (HHS's) declaration [...] consistent with SARS-CoV-2. Performed By: #### C VDTB #### [facility] [address] [place], [place] [address] Dr. Kesha Aguero PROF CHEM 8 (BAS METB)on Anion gap [Moles/Vol] 13.7 mmol/L Normal [facility] Comment on above: Performed By: #### D DIM #### [facility] [address] [address] [address] Kesha Aguero Calcium [Mass/Vol] 9.8 mg/dL Normal 8.5-10.1 [facility] Comment on above: Performed By: #### D DIM #### [facility] [address] [address] [address] Kesha Aguero Chloride [Moles/Vol] 102 mmol/L Normal 98-107 [facility] Comment on above: Performed By: #### D DIM #### [facility] [address] [address] [address] Kesha Aguero CO2 [Moles/Vol] 26.0 mmol/L Normal 21.0-32.0 [facility] Comment on above: Performed By: #### D DIM #### [facility] [address] [address] [address] Kesha Aguero Creatinine [Mass/Vol] 1.22 mg/dL Critically high 0.55-1.02 [facility] Comment on above: Performed By: #### D DIM #### [facility] [address] [address] [address] Kesha Aguero EGFR-AF MAURITIAN 51 mL/min/1.73m2 Critically low >=60 [facility] Comment on above: Performed By: #### D DIM #### [facility] [address] [address] [address] Kesha Aguero EGFR-NON AF MAURITIAN 42 mL/min/1.73m2 Critically low >=60 [facility] Comment on above: Performed By: #### D DIM #### [facility] [address] [address] [address] Kesha Aguero Glucose [Mass/Vol] 323 mg/dL Critically high 74-106 [facility] Comment on above: Performed By: #### D DIM #### [facility] [address] [address] [address] Kesha Aguero Potassium [Moles/Vol] 4.7 mmol/L Normal 3.5-5.1 [facility] Comment on above: Performed By: #### D DIM #### [facility] [address] [address] [address] Kesha Aguero Sodium [Moles/Vol] 137 mmol/L Normal 136-145 [facility] Comment on above: Performed By: #### D DIM #### [facility] [address] [address] [address] Kesha Aguero Urea nitrogen [Mass/Vol] 31.0 mg/dL Critically high 7.0-18.0 [facility] Comment on above: Performed By: #### D DIM #### [facility] [address] [address] [address] Kesha Aguero Urea nitrogen/Creatinine [Mass ratio] 25.4 mg/mg Normal [facility] Comment on above: Performed By: #### D DIM #### [facility] [address] [address] [address] Kesha Aguero Cardiovascular Lab Reporton 04-22-2022 Cardiovascular Lab Report [facility] #: [id number] Department of Physician: Edison Gibbs M.D. Division of Service Date: 04/21/2022 Cardiology Birthdate: 1940 Adult Cardiovascular Room #: [facility] [address] [facility]. 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 Monitor labs. 5. Outpatient followup with [facility]. 6. Referral to cardiac rehabilitation. PROCEDURES: [...] infiltrated over the left radial artery. A 6-Burmese for Terumo Glidesheath slender was placed in the left radial artery. Radial anti-vasospasm cocktail of verapamil and nitroglycerin was administered to prevent spasm. All catheter exchanges were made over the [employer] guidewire. This was a planned PCI procedure. Heparin anticoagulation was administered and ACT was maintained greater than 250 seconds. A [employer] 6-Burmese JR4 guide was engaged to right coronary [...] througho (more content not included)... Normal [facility] Covid-19 PCR (CVDTB)on 03-31 SARS-CoV-2 (COVID-19) RNA YARA+probe Ql (Unsp spec) Not detected Normal NOT DETECTED [facility] Comment on above: Result Comment: This test is not yet approved or cleared by the [place] FDA. When there are no FDA-approved or cleared tests available, and other criteria are met, FDA can make tests available under an emergency access mechanism called an Emergency Use Authorization (EUA). The EUA for this test is supported by the Clinical Laboratory Science Professor of Health and Human Service's (HHS's) declaration [...] SARS-CoV-2. Performed By: #### D DIM #### [facility] [address] [place] [address] Dr. Kesha Aguero HEMOGRAM AND PLATELon 2021 Hematocrit (Bld) [Volume fraction] 41.6 % Normal 36.0-48.0 [facility] Comment on above: Performed By: #### C VDTBH #### [facility] [address] [place] [address] Dr. Kesha Aguero Hemoglobin (Bld) [Mass/Vol] 13.2 g/dL Normal 12.0-16.0 [facility] Comment on above: Performed By: #### C VDTBH #### [facility] [address] [place] [address] Dr. Kesha Aguero MCH (RBC) [Entitic mass] 26.2 pg Critically low 26.7-34.0 [facility] Comment on above: Performed By: #### C VDTBH #### [facility] [address] [place] [address] Dr. Kesha Aguero MCHC (RBC) [Mass/Vol] 31.7 g/dL Normal 29.9-35.2 [facility] Comment on above: Performed By: #### C VDTBH #### [facility] [address] [place] [address] Dr. Kesha Aguero MCV (RBC) [Entitic vol] 82.7 fL Normal 81.0-99.0 [facility] Comment on above: Performed By: #### C VDTBH #### [facility] [address] [place] [address] Dr. Kesha Aguero PLT 272 103/ul Normal 150-450 [facility] Comment on above: Performed By: #### C VDTBH #### [facility] [address] [place] [address] Dr. Kesha Aguero RBC 5.03 106/ul Normal 4.20-5.40 [facility] Comment on above: Performed By: #### C VDTBH #### [facility] [address] [place] [address] Dr. Kesha Aguero WBC 5.9 103/ul Normal 4.0-11.0 [facility] Comment on above: Performed By: #### C VDTBH #### [facility] [address] [place] [address] Dr. Kesha Aguero PROF CHEM 8 (BAS METB)on Anion gap [Moles/Vol] 12.8 mmol/L Normal [facility] Comment on above: Performed By: #### D DIM #### [facility] [address] [place] [address] Dr. Kesha Aguero Calcium [Mass/Vol] 9.6 mg/dL Normal 8.5-10.1 [facility] Comment on above: Performed By: #### D DIM #### [facility] [address] [place] [address] Dr. Kesha Aguero Chloride [Moles/Vol] 105 mmol/L Normal 98-107 [facility] Comment on above: Performed By: #### D DIM #### [facility] [address] [place] [address] Dr. Kesha Aguero CO2 [Moles/Vol] 25.6 mmol/L Normal 21.0-32.0 [facility] Comment on above: Performed By: #### D DIM #### [facility] [address] [place] [address] Dr. Kesha Aguero Creatinine [Mass/Vol] 1.07 mg/dL Critically high 0.55-1.02 [facility] Comment on above: Performed By: #### D DIM #### [facility] [address] [place] [address] Dr. Kesha Aguero EGFR-AF MAURITIAN 59 mL/min/1.73m2 Critically low >=60 [facility] Comment on above: Performed By: #### D DIM #### [facility] [address] [place] [address] Dr. Kesha Aguero EGFR-NON AF MAURITIAN 49 mL/min/1.73m2 Critically low >=60 [facility] Comment on above: Performed By: #### D DIM #### [facility] [address] [place] [address] [address] Kesha Aguero Glucose [Mass/Vol] 264 mg/dL Critically high 74-106 [facility] Comment on above: Performed By: #### D DIM #### [facility] [address] [place] [address] [address] Kesha Aguero Potassium [Moles/Vol] 4.4 mmol/L Normal 3.5-5.1 [facility] Comment on above: Performed By: #### D DIM #### [facility] [address] [place] [address] [address] Kesha Aguero Sodium [Moles/Vol] 139 mmol/L Normal 136-145 [facility] Comment on above: Performed By: #### D DIM #### [facility] [address] [place] [address] Dr. Kesha Aguero Urea nitrogen [Mass/Vol] 17.0 mg/dL Normal 7.0-18.0 [facility] Comment on above: Performed By: #### D DIM #### [facility] [address] [place] [address] Dr. Kesha Aguero Urea nitrogen/Creatinine [Mass ratio] 15.9 mg/mg Normal [facility] Comment on above: Performed By: #### D DIM #### [facility] [address] [place] [address] Dr. Kesha Aguero MAGNESIUMon 03-12-2022 Magnesium [Mass/Vol] 1.8 mg/dL Normal 1.8-2.4 [facility] Comment on above: Performed By: #### D DIM #### [facility] [address] [place] [address] Dr. Kesha Aguero PROF CHEM 8 (BAS METB)on Anion gap [Moles/Vol] 13.9 mmol/L Normal [facility] Comment on above: Performed By: #### D DIM #### [facility] [address] [place] [address] [address] Kesha Aguero Calcium [Mass/Vol] 9.8 mg/dL Normal 8.5-10.1 [facility] Comment on above: Performed By: #### D DIM #### [facility] [address] [place] [address] [address] Kesha Aguero Chloride [Moles/Vol] 101 mmol/L Normal 98-107 [facility] Comment on above: Performed By: #### D DIM #### [facility] [address] [place] [address] [address] Kesha Aguero CO2 [Moles/Vol] 24.8 mmol/L Normal 21.0-32.0 [facility] Comment on above: Performed By: #### D DIM #### [facility] [address] [place] [address] [address] Kesha Aguero Creatinine [Mass/Vol] 1.28 mg/dL Critically high 0.55-1.02 [facility] Comment on above: Performed By: #### D DIM #### [facility] [address] [place] [address] [address] Kesha Aguero EGFR-AF MAURITIAN 48 mL/min/1.73m2 Critically low >=60 [facility] Comment on above: Performed By: #### D DIM #### [facility] [address] [place] [address] [address] Kesha Aguero EGFR-NON AF MAURITIAN 40 mL/min/1.73m2 Critically low >=60 [facility] Comment on above: Performed By: #### D DIM #### [facility] [address] [place] [address] [address] Kesha Aguero Glucose [Mass/Vol] 214 mg/dL Critically high 74-106 [facility] Comment on above: Performed By: #### D DIM #### [facility] [address] [place] [address] [address] Kesha Aguero Potassium [Moles/Vol] 4.7 mmol/L Normal 3.5-5.1 [facility] Comment on above: Performed By: #### D DIM #### [facility] [address] [place] [address] [address] Kesha Aguero Sodium [Moles/Vol] 135 mmol/L Critically low 136-145 [facility] Comment on above: Performed By: #### D DIM #### [facility] [address] [place] [address] [address] Kesha Aguero Urea nitrogen [Mass/Vol] 26.0 mg/dL Critically high 7.0-18.0 [facility] Comment on above: Performed By: #### D DIM #### [facility] [address] [place] [address] [address] Kesha Aguero Urea nitrogen/Creatinine [Mass ratio] 20.3 mg/mg Normal [facility] Comment on above: Performed By: #### D DIM #### [facility] [address] [place] [address] [address] Kesha Aguero Cardiovascular Lab Reporton 2022 Cardiovascular Lab Report [facility] Patient Name: [facility] A MR #: [id number] Department of Physician: Edison Gibbs M.D. Division of Service Date: 03/07/2022 Cardiology Birthdate: 1940 Adult Cardiovascular Room #: [facility] [address] [facility]. 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 The ramus coronary artery has a proximal [...] right PDA disease. 8. Outpatient followup with [facility]. 9. Since the right heart catheterization [...] ultrasound guidance and micropuncture access technique, a 6-Burmese sheath was placed in right internal jugular [...] anesthetized with 1% lidocaine and then a 6-Burmese Terumo Glidesheath slender placed in the left radial artery. The radial anti-vasospasm cocktail of nitroglycerin 200 mcg and verapamil 2.5 mg administered through the sheath. All catheters and sheaths were made over the [employer] guidewire. A 5-Burmese JR 5 was used to engage the right coronary artery. 5-Burmese JL 3.5 was used to engage the left main coronary artery. Coronary angiogram was performed in multiple orthogonal views using hand injection of contrast. 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 I elected to proceed with PCI given the patient's advanced age. A Cordis 6-Burmese XB 3.0 guide was engaged in left main coronary artery. Heparin anticoagulation was used for this procedure. ACT was maintained greater than 200 seconds. Run-through wire was manipulated into the coronary arteries. First, I probed the LAD and it did in fact behave as a AUDIOVISUAL TECHNICIAN. Therefore, I turned my attention to the ramus coronary artery. The proximal ramus had 99% stenosis. The run-through wire has been delivered to the distal ramus. The lesion was predilated with the [employer] 2.5 x 15 mm balloon at 12 atmospheres. Next, a Synergy 2.5 x 16 mm drug-eluting stent was deployed in the proximal ramus. Careful attention was placed to land the stent at the ostium of the ramus and not protrude into the left main coronary artery. The stent was deployed at 12 atmospheres. Next, the stent was post dilated with the [employer] 2.5 x 15 mm balloon. The b (more content not included)... Normal [facility] POC SARS COV2 IDon 2 SARS-CoV-2 (COVID-19) RNA YARA+probe Ql (Unsp spec) Negative Normal NEGATIVE [facility] Comment on above: Result Comment: ID N OW COVID-19 assay performed on the [employer] Instrument is a rapid molecular in vitro [...] Accreditation. Performed By: #### 3 1921 #### [facility] [address] CBC AUTO DIFFon 03-01-2022 BASO # 0.1 103/ul Normal 0.0-0.1 [facility] Comment on above: Performed By: #### C VDTBH #### [facility] [address] [place] [address] Dr. Kesha Aguero Basophils/100 WBC (Bld) 0.7 % Normal 0.2-2.0 [facility] Comment on above: Performed By: #### C VDTBH #### [facility] [address] [place] [address] Dr. Kesha Aguero EO # 0.1 103/ul Normal 0.0-0.7 [facility] Comment on above: Performed By: #### C VDTBH #### [facility] [address] [place] [address] Dr. Kesha Aguero Eosinophils/100 WBC (Bld) 1.2 % Normal 0.9-7.0 [facility] Comment on above: Performed By: #### C VDTBH #### [facility] [address] [place] [address] Dr. Kesha Aguero Erythrocyte distribution width (RBC) [Ratio] 14.0 % Normal 11.0-15.0 [facility] Comment on above: Performed By: #### C VDTBH #### [facility] [address] [place] [address] Dr. Kesha Aguero Hematocrit (Bld) [Volume fraction] 40.9 % Normal 36.0-48.0 [facility] Comment on above: Performed By: #### C VDTBH #### [facility] [address] [place] [address] Dr. Kesha Aguero Hemoglobin (Bld) [Mass/Vol] 13.1 g/dL Normal 12.0-16.0 [facility] Comment on above: Performed By: #### C VDTBH #### [facility] [address] [place] [address] Dr. Kesha Aguero IG # 0.03 10e3/ul Normal 0.00-0.03 [facility] Comment on above: Performed By: #### C VDTBH #### [facility] [address] [place] [address] [address] Kesha Aguero IG % 0.3 % Normal 0.0-0.5 [facility] Comment on above: Performed By: #### C VDTBH #### [facility] [address] [place] [address] [address] Kesha Aguero LYMPH # 3.4 103/ul Normal 1.2-3.8 [facility] Comment on above: Performed By: #### C VDTBH #### [facility] [address] [place] [address] [address] Kesha Aguero Lymphocytes/100 WBC (Bld) 36.9 % Normal 20.5-60.0 [facility] Comment on above: Performed By: #### C VDTBH #### [facility] [address] [place] [address] Dr. Kesha Aguero MANUAL DIFF REQ NO Normal [facility] Comment on above: Performed By: #### C VDTBH #### [facility] [address] [place] [address] [address] Kesha Aguero MCH (RBC) [Entitic mass] 26.5 pg Critically low 26.7-34.0 [facility] Comment on above: Performed By: #### C VDTBH #### [facility] [address] [place] [address] [address] Kesha Aguero MCHC (RBC) [Mass/Vol] 32.0 g/dL Normal 29.9-35.2 [facility] Comment on above: Performed By: #### C VDTBH #### [facility] [address] [place] [address] Dr. Kesha Aguero MCV (RBC) [Entitic vol] 82.8 fL Normal 81.0-99.0 [facility] Comment on above: Performed By: #### C VDTBH #### [facility] [address] [place] [address] [address] Kesha Aguero MONO # 0.6 103/ul Normal 0.3-0.8 [facility] Comment on above: Performed By: #### C VDTBH #### [facility] [address] [place] [address] Dr. Kesha Aguero Monocytes/100 WBC (Bld) 6.5 % Normal 1.7-12.0 [facility] Comment on above: Performed By: #### C VDTBH #### [facility] [address] [place] [address] Dr. Kesha Aguero NEUT # 4.9 103/ul Normal 1.4-6.5 [facility] Comment on above: Performed By: #### C VDTBH #### [facility] [address] [place] [address] Dr. Kesha Aguero Neutrophils/100 WBC (Bld) 54.4 % Normal 43.0-75.0 [facility] Comment on above: Performed By: #### C VDTBH #### [facility] [address] [place] [address] Dr. Kesha Aguero Platelet mean volume (Bld) [Entitic vol] 9.5 fL Normal 9.5-13.5 [facility] Comment on above: Performed By: #### C VDTBH #### [facility] [address] [place] [address] Dr. Kesha Aguero PLT 271 103/ul Normal 150-450 [facility] Comment on above: Performed By: #### C VDTBH #### [facility] [address] [place] [address] Dr. Kesha Aguero RBC 4.94 106/ul Normal 4.20-5.40 [facility] Comment on above: Performed By: #### C VDTBH #### [facility] [address] [place] [address] Dr. Kesha Aguero WBC 9.1 103/ul Normal 4.0-11.0 [facility] Comment on above: Performed By: #### C VDTBH #### [facility] [address] [place] [address] Dr. Kesha Aguero [facility]on SARS-CoV-2 (COVID-19) RNA YARA+probe Ql (Unsp spec) Not detected Normal NOT DETECTED [facility] Comment on above: Result Comment: When [...] for this test is supported by the Clinical Laboratory Science Professor of Health and Human Service's declaration that [...] used). Performed By: #### A CETON #### [facility] [address] [place] [address] Dr. Kesha Aguero PROF CHEM 8 (BAS METB)on Anion gap [Moles/Vol] 14.3 mmol/L Normal [facility] Comment on above: Performed By: #### B MP #### [facility] [address] [place] [address] Dr. Kesha Aguero Calcium [Mass/Vol] 9.7 mg/dL Normal 8.5-10.1 [facility] Comment on above: Performed By: #### B MP #### [facility] [address] [place] [address] Dr. Kesha Aguero Chloride [Moles/Vol] 100 mmol/L Normal 98-107 [facility] Comment on above: Performed By: #### B MP #### [facility] [address] [place] [address] Dr. Kesha Aguero CO2 [Moles/Vol] 27.2 mmol/L Normal 21.0-32.0 [facility] Comment on above: Performed By: #### B MP #### [facility] [address] [place] [address] [address] Kesha Aguero Creatinine [Mass/Vol] 1.34 mg/dL Critically high 0.55-1.02 [facility] Comment on above: Performed By: #### B MP #### [facility] [address] [place] [address] [address] Kesha Aguero EGFR-AF MAURITIAN 46 mL/min/1.73m2 Critically low >=60 [facility] Comment on above: Performed By: #### B MP #### [facility] [address] [place] [address] [address] Kesha Aguero EGFR-NON AF MAURITIAN 38 mL/min/1.73m2 Critically low >=60 [facility] Comment on above: Performed By: #### B MP #### [facility] [address] [place] [address] [address] Kesha Aguero Glucose [Mass/Vol] 232 mg/dL Critically high 74-106 T [facility] Comment on above: Performed By: #### B MP #### [facility] [address] [place] [address] [address] Kesha Aguero Potassium [Moles/Vol] 4.5 mmol/L Normal 3.5-5.1 [facility] Comment on above: Performed By: #### B MP #### [facility] [address] [place] [address] [address] Kesha Aguero Sodium [Moles/Vol] 137 mmol/L Normal 136-145 [facility] Comment on above: Performed By: #### B MP #### [facility] [address] [place] [address] [address] Kesha Aguero Urea nitrogen [Mass/Vol] 22.0 mg/dL Critically high 7.0-18.0 [facility] Comment on above: Performed By: #### B MP #### [facility] [address] [place] [address] [address] Kesha Aguero Urea nitrogen/Creatinine [Mass ratio] 16.4 mg/mg Normal [facility] Comment on above: Performed By: #### B MP #### [facility] [address] [place], [place] [address] Dr. Kesha Aguero ECHOCARDIO M/2D COMPLETEon 0 02-11-2022 ECHOCARDIO M/2D COMPLETE Patient: TERE HARTMANN Exam Date: 02/11/2022 : 1940 Gender:F Ordering : DR RODRICK BUTLER M.D. Admission #: [id number] Family : Order #: [id number] CLICK HERE TO VIEW EXAM ECHOCARDIOGRAM REPORT [...] Area(A4C): 23.90 cm2 Left Atrium Systolic Volume(A2C): 49986 mm3 Left Atrium Systolic Volume(A4C): 24480 mm3 Mitral Valve MV E to A [...] Jackson M.D. on 02/11/2022 at 18:48 Normal [facility] NM STRESS/REST MULTIon 02-11 NM STRESS/REST MULTI Patient: TERE HARTMANN Exam Date: 02/11/2022 : 1940 Gender:F Ordering : DR RODRICK BUTLER M.D. Admission #: [id number] Family : Order #: [id number] CLICK HERE TO VIEW EXAM RADIOLOGY REPORT [...] DEFECT: LOCATION: Mid-anterior. Mid-anteroseptal. Mid-anterolateral. Apical anterior. [place]. SIZE: Large (5 or more segments). SEVERITY: [...] Diego M.D. on 02/11/2022 at 14:41 Normal [facility] Vital Signs Date Time Vital Sign Value Performing Clinician Facility 09-22-2022 12:00-0500 Body height 162.56 cm Heather Soler Other [facility] Other 09-22-2022 12:00-0500 Body mass index (BMI) [Ratio] 24.59 kg/m2 Heather Scally Other [facility] Other 09-22-2022 12:00-0500 Body weight 65 kg Heather Katarinaly Other [facility] Other 09-22-2022 12:00-0500 Diastolic blood pressure 76 mm[Hg] Heather Scally Other [facility] Other 09-22-2022 12:00-0500 Respiratory rate 18 /min Heather Scally Other [facility] Other 09-22-2022 12:00-0500 SaO2% (BldA) [Mass fraction] 100 % Heather Scally Other [facility] Other 09-22-2022 12:00-0500 Systolic blood pressure 136 mm[Hg] Heather Scally Other [facility] Other 05-11-2022 11:34-0400 Body temperature 97.3 [degF] II Rodrick Butler Work Phone: [facility] 05-11-2022 11:34-0400 Diastolic blood pressure 75 mm[Hg] II Rodrick Butler Work Phone: [facility] 05-11-2022 11:34-0400 Heart rate 78 /min II Rodrick Butler Work Phone: [facility] 05-11-2022 11:34-0400 Respiratory rate 20 /min II Rodrick Butler Work Phone: [facility] 05-11-2022 11:34-0400 SaO2% (BldA) [Mass fraction] 95 % II Rodrick Butler Work Phone: [facility] 05-11-2022 11:34-0400 Systolic blood pressure 122 mm[Hg] II Rodrick Butler Work Phone: [facility] 05-11-2022 06:00-0400 Body weight 69 kg II Rodrick Butler Work Phone: [facility] 05-09-2022 09:40-0400 Body height 170.18 cm II Rodrick Butler Work Phone: [facility] Encounters Encounter Date Encounter Type Care Provider Facility Start: 05-05-2024 End: 05-05-2024 ambulatory KALYANI FLETCHER Not Available Start: 04-26-2024 End: 04-26-2024 ambulatory [facility] Start: 04-19-2024 End: 04-19-2024 ambulatory RODGER PAREDES Not Available Start: 04-07-2024 End: 04-07-2024 ambulatory KALYANI FLETCHER Not Available Start: 02-29-2024 End: 02-29-2024 ambulatory RODRICK B BUTLER Not Available Start: 01-12-2024 End: 01-12-2024 ambulatory RODGER PAREDES Not Available Start: 12-30-2023 End: 12-30-2023 ambulatory RODRICK B BUTLER Not Available Start: 12-02-2023 End: 12-02-2023 ambulatory RODRICK B BUTLER Not Available Start: 10-27-2023 End: 10-27-2023 ambulatory [facility] Start: 09-17-2023 End: 09-17-2023 ambulatory RODRICK B BUTLER Not Available Start: 09-16-2023 End: 09-16-2023 ambulatory ABBIE CRISOSTOMO [facility] Start: 09-09-2023 Evaluation and manag ement of inpatient [facility] Start: 09-09-2023 Evaluation and manag ement of inpatient [facility] Start: 09-08-2023 [facility]-08-[facility] Evaluation and manag ement of inpatient [facility] Start: 09-08-2023 Evaluation and manag ement of inpatient [facility] Start: 09-07-2023 End: 09-09-2023 Evaluation and management of inpatient MIKALA STAHL [facility] Start: 09-07-2023 End: 09-07-2023 Evaluation and management of inpatient CODY FORDE [facility] Start: 08-13-2023 End: 08-13-2023 ambulatory RODRICK BUTLER Not Available Start: 07-29-2023 End: 07-29-2023 ambulatory RODRICK BUTLER Not Available Start: 06-03-2023 End: [facility]03[facility] Start: 11-24-2022 End: 11-24-[address] RODRICK BUTLER Facility:[facility] Start: 09-29-2022 End: 09-30-[address] RODRICK BUTLER Facility:[facility] Start: 09-22-2022 (New DM) New Diabetes Heather Scalnirav [facility] Start: 09-22-2022 End: 09-23-2022 ambulatory Heather Soler [facility] [employer] Other Start: 08-28-2022 End: 08-29-[address] RODRICK BTULER Facility:H1 Start: 08-18-2022 End: 08-19-[address] RODRICK BUTLER Facility:H1 Start: 06-11-2022 End: 06-12-[address] RODRICK BUTLER Facility:H1 Start: 06-06-2022 End: 06-06-2022 ambulatory REJI CARLOS Facility:H1 Start: 05-11-2022 ambulatory Itz Townsend II Faci lity:[id number] Start: 05-10-2022 ambulatory Itz Townsend II Faci lity:[id number] Start: 05-09-2022 ambulatory Itz Townsend II Faci lity:[id number] Start: 05-09-2022 End: 05-11-2022 Evaluation and management of inpatient CHANDA Butler Work Phone: [facility] Start: 05-09-2022 End: 05-09-2022 ambulatory Itz Townsend II Facility:[id number] Start: 05-02-2022 Encounter for other preprocedural examination [facility]BIE [facility] Start: 05-02-2022 Encounter for preprocedural laboratory examination ABBIE CRISOSTOMO [facility] Start: 05-01-2022 End: 05-02-[address] RODRICK BUTLER Facility:H1 Start: 05-01-2022 End: 05-02-2022 Encounter for other preprocedural examination DR RODRICK BUTLER Facility:H1 Start: 04-21-2022 End: 04-22-2022 ambulatory RODRICK BUTLER Facility:[facility] Start: 04-18-2022 End: 04-19-2022 ambulatory ABBIE CRISOSTOMO Facility:H1 Start: 03-12-2022 End: 03-13-2022 ambulatory ABBIE CRISOSTOMO Facility:H1 Start: 03-07-2022 End: 2022 ambulatory RODRICK BUTLER Facility:[facility] Start: 03-01-2022 End: 03-02-2022 ambulatory ABBIEIRVING CUADRAS Facility:H1 Start: 02-11-2022 End: 02-12-[address] RODRICK BUTLER Facility:H1 Plan of Treatment Date Care Activity Detail Author Start: 05-11-2022 [facility] Work Phone: Start: 05-09-2022 Hospital admission [facility] Work Phone: Start: 05-09-2022 Referral to surveillance director [facility] Work Phone: Patient Education Acid Reflux an d GERD in Adults (DC) Irritable Bowel Syndrome (DC) Coronary Artery Disease (DC) [facility] Work Phone: Patient referral [facility] Work Phone: Payers Date Payer Category Payer Medicare [id number] 2022 Self-pay [id number] 1959 Private Health Insurance [id number] 1940 [facility] [id number] 2.16.840.1.392984.3.579. 2.647 1940 Unknown [id number] 2.16.840.1.763385.3.579. 2.647 1940 Unknown [id number] 2.16.840.1.794150.3.579. 2.356 1940 Unknown [id number] 2.16.840.1.009730.3.579. 2.356 1940 Unknown [id number] 2.16.840.1.392639.3.579. 2.356 1940 Unknown [id number] 2.16.840.1.542894.3.579. 2.356 1940 Unknown [id number] 2.16.840.1.387028.3.579. 2.593 1939 Unknown [id number] 2.16.840.1.744544.3.579. 2.593 1939 Unknown [id number] 2.16.840.1.271114.3.579. 2.593 1939 Unknown [id number] 2.16.840.1.518298.3.579. 2.593 1939 Unknown [id number] 2.16.840.1.650630.3.579. 2.593 1939 Unknown [id number] 2.16.840.1.716414.3.579. 2.593 1939 Unknown [id number] 2.16.840.1.951263.3.579. 2.593 1939 Unknown [id number] 2.16.840.1.688698.3.579. 2.593 1939 Unknown [id number] 2.16.840.1.995908.3.579. 2.593 1939 Unknown [id number] 2.16.840.1.821478.3.579. 2.593 1939 Unknown [id number] 2.16.840.1.137946.3.579. 2.593 1939 Unknown [id number] 2.16.840.1.287246.3.579. 2.593 1939 Unknown [id number] 2.16.840.1.858219.3.579. 2.593 1939 Unknown [id number] 2.16.840.1.487290.3.579. 2.1259 1939 Unknown [id number] 2.16.840.1.887697.3.579. 2.125 1939 Unknown [id number] 2.16.840.1.344672.3.579. 2.125 1939 Unknown [id number] 2.16.840.1.373629.3.579. 2.125 1939 Unknown [id number] 2.16.840.1.700008.3.579. 2.1259 1939 Unknown [id number] 2.16.840.1.589661.3.579. 2.125 1939 Unknown [id number] 2.16.840.1.698207.3.579. 2.1259 1939 Unknown [id number] 2.16.840.1.632797.3.579. 2.125 1939 Unknown [id number] 2.16.840.1.520836.3.579. 2.125 1939 Unknown [id number] 2.16.840.1.270846.3.579. 2.1259 Private Health Insurance [id number] Unknown Equitable Insurance-[facility] [place] [id number] Unknown [id number] 2.16.840.1.131078.3.579. 2.531 Social History Date Type Detail Facility Start: 05-09-2022 Tobacco smoking status NHIS Never smoked tobacco (finding) [facility] Start: 1940 Sex Assigned At Female F [facility] Sex Assigned At Sex Assigned At Bir th [facility] [employer] Other Medical Equipment Procedure Code Equipment Code Equipment Origin al Text Equipment Identifier Dates Accu-Chek Briana Test Strip Start: 01-18-2013 Goals Date Patient Goal Desired Activity /State Functional Status Date Assessment Result Facility 05-11-2022 Functional status Patient at Baseline [facility] Work Phone: Mental Status Date Assessment Result Facility 05-11-2022 Cognitive function Cognitive Sta tus Patient at Baseline [facility] Work Phone: Clinical Notes 03-31-2022 to 09-16-2023 Note Date & Type Note Facility 09-16-2023 Note Incision healing wel l- no s/s of distress and RTC at 1 month for device interrogation [facility] 09-16-2023 Note UTP CARDIOLOGY PROGR ESS [...] (TTE) complete Result Date: 09/08/2023 1 1 [facility] Heart Station [address] [place] [address] [phone] (fax) Echocardiogram-[facility] Name: TERE HARTMANN Study Date: 09/08/2023 09:30 AM B/P: 140 mmHg/51 mmHg HR: Date of : 1940 Location: [facility] Height: 67 in. Age: 83 year(s) Patient [...] LV Mass, 2D (more content not included)... [facility] 09-09-2023 Note UTP CARDIOLOGY INPAT IENT [...] 154/65 -- -- 87 -- -- -- 09/08/23 2000 154/65 36 ???C (96.8 ???F) Temporal 87 [...] Value Ventricular Rate 76 Atrial Rate 76 NV Interval 226 QRS DURATION 164 QT Interval 456 QTC CALCULATION(BAZETT) 513 P [place] 63 R-[place] -77 T Wave [place] 92 Impression Atrial-sensed ventricular-paced rhythm with prolonged [...] normal in siz (more content not included)... 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 female with past medical history of CAD s/p PCI with stenting, CHF, DM2, hypertension, hyperlipidemia presents as a direct admission from [facility] with dizziness on 09/07/23 to [facility]. Per report, patient presented to [facility] on 09-04-2023 due to dizziness and was found to be bradycardic in the 30s. Patient is on Coreg at home and this was held for 3 days without improvement in symptoms. She was then found to have second-degree AV block Mobitz type II and was transferred to [facility] for pacemaker placement. Patient underwent dual chamber pacemaker placement on 09/07/2023. Patient to be admitted to the hospitalist team overnight for observation post procedure. On 09/08, it was determined that lead had been dislodged and patient returned to carpenter/labor for revision of pacemaker lead. She was [...] -ventricular lead dislodged and required Return to carpenter/labor for lead revision procedure on 09/08/23 -interrogation of device, EKG, and CXR confirm Pacemaker lead in place and pacemaker working properly on 09/09/23 -discharged home on 09/09/23 Chronic diseases (POA): #Chronic systolic heart failure, NYHA class II, compensated #CAD s/p PCI with stenting #DM2 #Hypertension, continue home medications #Hyperlipidemia, continue home medications Dear Dr. Luke MD, [place] is advised to follow up with you [...] Your Medications These medications were sent to [facility] - [place], [place] - [address] [facility] [address] [place] [address] carvedilol 12.5 mg tablet doxycycline 100 mg [...] of discharge: regul (more content not included)... [facility] 09-08-2023 Note 09/08/23 1423 Referral Data Referral Source sprinkler worker (Screened via RUC) Patient Information Primary Caregiver Self Activities of Daily Living Assistive Device Other (Comment) (Has DME, does not use) Living Arrangement (Current/Prior to Hospitalization) Private residence Communication Talks;Understands speaking;Understands Georgian Discharge Planning Type of Residence/Post Acute Needs [...] No further OTM needs at this time. [facility] 09-08-2023 Note 09/08/23 1406 Admission Assessment [...] Discharge? Yes Does the patient have a pillowcase sewer assigned to them through their insurance? No [...] activate MyChart? Yes (link sent, mychart pending) [facility] 09-08-2023 Note Hospital Medicine Daily Progress Note - 09/08/2023 1:43 PM; Room: [facility] Admission: 09/07/2023 7:38 PM; Length of stay: 1 days THE HOSPITALIST TEAM PREFERS TO USE THE [employer] LADY CHAT FOR COMMUNICATION 7AM-7PM. IF I DO NOT RESPOND WITHIN 15 MINUTES, PLEASE PAGE ME/CALL THROUGH THE RAILCAR SWITCHER. FROM 7PM-7AM, PLEASE PAGE [phone](COVR) Code Status: Full Code Barriers to Discharge: [...] block Active Problems: Coronary artery disease involving augustine coronary artery of augustine heart Chronic systolic heart failure (CMS/HCC) Mixed hyperlipidemia Diabetes mellitus (CMS/HCC) Benign essential hypertension Heart block atrioventricular Assessment and Plan eTre Hartmann is an 83 y.o. female with past medical history of CAD s/p PCI with stenting, CHF, DM2, hypertension, hyperlipidemia, presents as a direct admission from [facility] with dizziness and found to have heart block at which time she was sent to [facility] for further treatment. Per report, patient presented to [facility] on 09-04-2023 due to dizziness and was found to be bradycardic in the 30s. #Second-degree AV block Mobitz type II, s/p PPM implantation on 09/07/23 -noted on follow up imaging today that the ventricular lead had been dislodged. Returned to carpenter/labor for lead revision procedure today, 09/08/23 -plan [...] [place] , [place] (more content not included)... [facility] 09-08-2023 Note dications for ventri cular [...] lead Fluoroscopy Conscious sedation Shamika Hutchins M.D. [facility] conference manager and Pediatrics Director: Cardiac Electrophysiology Program [facility] 09-08-2023 Note Patient: Tere Christopher idd Procedure Information Date/Time: 09/08/231124 Procedure: Pacemaker lead revision Location: [facility] ARCHITECT 1 / [facility] (Cath) Providers: Shamika Hutchins MD [...] with attending and fellow. Additional Equipment Requests [facility] 09-08-2023 Note UTP CARDIOLOGY INPAT IENT [...] 51 (!) 27 97 % -- -- 09/07/23 2100 (!) 149/44 36.8 ???C (98.2 ???F) Temporal 66 22 91 % 1.702 m (5' 7.01 ) 72.4 kg (159 lb 9.8 oz) 09/07/232029 144/64 -- -- 53 24 96 % -- -- 09/07/232008 -- -- -- -- -- -- -- 72.4 kg (159 lb 9.8 oz) 09/07/231999 (!) 135/37 -- -- 86 20 98 % -- -- 09/07/231944 163/66 -- -- 72 19 94 % [...] Value Ventricular Rate 74 Atrial Rate 74 NV Interval 220 QRS DURATION 128 QT Interval 432 QTC CALCULATION(BAZETT) 479 P [place] 29 R-[place] 21 T Wave [place] -5 Impression Sinus rhythm with 1st degree [...] to lack o (more content not included)... [facility] 09-07-2023 Note Hospital Medicine History and Physical 09/07/2023 7:47 PM THE HOSPITALIST TEAM PREFERS TO USE THE [employer] LADY CHAT FOR COMMUNICATION 7AM-7PM. IF I DO NOT RESPOND WITHIN 15 MINUTES, PLEASE PAGE ME/CALL THROUGH THE RAILCAR SWITCHER. FROM 7PM-7AM, PLEASE PAGE [phone](COVR) Chief Complaint Direct admission from [facility] with AV block, patient S/p pacemaker with our cardio team on 09/07 History of Present Illness Tere Hartmann is an 83 y.o. female who came from home with past medical history of CAD s/p PCI with stenting, CHF, DM2, hypertension, hyperlipidemia presents as a direct admission from [facility] with dizziness. Per report, patient presented to [facility] on 09-04-2023 due to dizziness and was found to be bradycardic in the 30s. Patient is on Coreg at home and this was held for 3 days without improvement in symptoms. She was then found to have second-degree AV block Mobitz type II and was transferred to [facility] for pacemaker placement. Patient underwent dual chamber [...] Central vestibular vertigo 01/27/2023 Diabetic peripheral neuropathy (CMS/HCC) 01/27/2023 Diabetic renal disease (CMS/HCC) 01/27/2023 Diverticulitis 01/27/2023 Mass of left adrenal gland ([facility]) 01/27/2023 Ovarian failure 01/27/2023 Skin sensation disturbance 01/27/2023 Type 2 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 gangrene ([facility]) 01/27/2023 Type 2 diabetes mellitus without complications ([facility]) 01/27/2023 Diabetes mellitus ([facility]) 08/01/2022 Benign hypertensive cardiomyopathy with heart failure ([facility]) 08/01/2022 Insomnia 08/01/2022 Non-smoker 08/01/2022 Restless legs syndrome 08/01/2022 Coronary artery disease involving augustine coronary artery of augustine heart 06/25/2022 Chronic systolic heart failure ([facility]) 06/25/2022 Mixed hyperlipidemia 06/25/2022 Lightheadedness 03/12/2022 Heart block atrioventricular 09/07/2023 Presence of drug coated stent in right coronary artery 06/25/2022 Assessment and Plan Tere Hartmann is an 83 y.o. female who came from home with past medical history of CAD s/p PCI with stenting, CHF, DM2, hypertension, hyperlipidemia presents as a direct admission from [facility] with dizziness. Per report, patient presented to [facility] on 09-04-2023 due to dizziness and [...] recommendation #Chronic sys (more content not included)... [facility] 09-07-2023 Note DUAL CHAMBER PACEMAK ER [...] using modified seldinger technique using a 5 Burmese micro-puncture needle on two occasions and 0.35 [...] for the device above the muscle. 6 Burmese Safesheaths were placed over the wire. An active fixation Biotronik pacing lead was then delivered through the 6Fsheath tothe right ventricle. After confirmation of lead position on orthogonal views (HERNANDEZ and KOREAN) to confirm septal position, the screw was [...] lead position on orthogonal views (HERNANDEZ and KOREAN), the screw was activated. Good sensing parameters, [...] any concerns. Cody Forde MD Cardiac Electrophysiology [facility] 09-07-2023 Note Patient: Tere Christopher idcurtis Procedure Information Date/Time: 09/07/231901 Procedure: PPM generator change - dual Location: [facility] 1 EP / [facility] (Cath) Providers: Cody Forde MD Clinical information reviewed: Allergies Meds OB Status Physical Exam Airway Mallampati: II TM distance: >3 FB Neck ROM: full Cardiovascular Dental Pulmonary Abdominal Anesthesia Plan ASA 2 CSE Anesthetic plan and risks discussed with patient. Use of blood products discussed with patient who. 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 The ramus coronary artery has a proximal [...] right PDA disease. 8. Outpatient followup with [facility]. 9. Since the right heart catheterization showed very low filling pressures, I discontinued hydrochlorothiazide (more content not included)... [facility] 09-22-2022 Evaluation note Encounter Date Diagnosis [...] and report elevations to primary care Aug, continuous churn buttermaker current use of insulin (ICD-10 - Z79.4) [employer] Other 09-11-2022 Discharge summary Author Herminia Lawler [facility] May 11, 2022 2:35pm Note Date/Time May 11, 2022 2:27pm [facility] [address] [place] [address] Discharge Summary Signed Patient: Tere Hartmann MR#: [id number] : 1940 Acct:[id number] Age/Sex: 82 / F Adm Date: 2 Loc: Room: [address] [place] [address]: Herminia Lawler MD Copies to: [...] on exertion in February and went to [facility], She had Echo with EF 40%, [...] stated compliance. This time, patient presented at [facility] with epigastric pain, initial troponin was negative, EKG with no acute ischemic changes. 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 Last Echo on report with EF 40%. Repeat Troponin at [place] uptrended to 600s, EKG with no acute ischemic changes again, given her recent cardiac history, raised the concern forstent thrombosis. Patient was started on IV heparin drip for presumptive NSTEMI and decision made to transfer patient over here to [facility] for possible cardiac cath. In our facility, [...] in 3-[address] AP at [facility] found to have incidentaloma left adrenal 3.6 mass.Need outpatient follow up. Also strict glucose follow up. Maybe endocrinology referral. ) Documented By: Herminia Lawler MD 05/11/22 14 25 Signed By: <Electronically signed by Herminia Lawler MD> 05/11/22 [facility] Work Phone: 1(820) 718-995209-11-2022 Progress note Author Itz Townsend [facility] May 11, 2022 12:15pm Note Date/Time May 11, 2022 12:12pm [facility] [address] [place] [address] Cardiology Progress Note Signed Patient: Tere Hartmann MR#: [id number] : 1940 Acct:[id number] Age/Sex: 82 / F Adm Date: 2 Loc: Room: [address] [place] [address] Type: ADM IN Attending Dr: Herminia Lawler [...] Code(s): I25.10 - Atherosclerotic heart disease of augustine coronary artery without angina pectoris Status: Acute (3) Epigastric abdominal pain: Assessment/Problem Details: Noncardiac. I recommend she be discharged on Pepcid. Code(s): R10.13 - Epigastric pain Status: Acute Plan Suitable for discharge. Continue home regimen. Add Pepcid. I will make arrangements for her to follow-up in the office with me in the next 1 to 2 months. Documented By: Itz Townsend MD [id number] Signed By: <Electronically signed by MD Itz Townsend> 05/11/22 1215 [facility] Work Phone: 1(357) 612-450309-10-2022 Progress note Author Herminia Lawler [facility] May 10, 2022 11:22am Note Date/Time May 10, 2022 11:05am [facility] [address] [place] [address] Hospitalist Progress Note Signed Patient: Tere Hartmann MR#: [id number] : 1940 Acct:[id number] Age/Sex: 82 / F Adm Date: 2 Loc: Room: [address] [place] [address] Type: ADM IN Attending Dr: Herminia Lawler [...] Dose Route Start Last Admin Trade Name Brant PRN Reason Stop Dose Admin Acetaminophen 650 [...] then RCA and PDA on 04/21/22 at [facility] PE was ruled out by CTA [...] with hyperglycemia -HbA1C 10.8 -Blood glucose at [place] was 499. Negative for ketones. DKA was [...] <Electronically signed by Herminia Lawler MD> 05/10/[address] [place] [address] Ctr Work Phone: 1(768) 682-498609-10-2022 Progress note Author Itz Townsend [facility] May 10, 2022 8:46am Note Date/Time May 10, 2022 8:46am [facility] [address] [place] [address] Cardiology Progress Note Signed Patient: Tere Hartmann MR#: [id number] : 1940 Acct:[id number] Age/Sex: 82 / F Adm Date: 2 Loc: Room: 6X5708-6 Type: ADM IN Attending Dr: Herminia Lawler [...] % (Auto) 55.8 Lymph % (Auto) 35.8 Divide % (Auto) 6.3 Eos % (Auto) 1.5 Baso % (Auto) 0.6 Neut # (Auto) 3.4 Lymph # (Auto) 2.2 Divide # (Auto) 0.4 Eos # (Auto) 0.1 [...] MPV Neut % (Auto) Lymph % (Auto) Divide % (Auto) Eos % (Auto) Baso % (Auto) Neut # (Auto) Lymph # (Auto) Divide # (Auto) Eos # (Auto) Baso # [...] MPV Neut % (Auto) Lymph % (Auto) Divide % (Auto) Eos % (Auto) Baso % (Auto) Neut # (Auto) Lymph # (Auto) Divide # (Auto) Eos # (Auto) Baso # [...] MPV Neut % (Auto) Lymph % (Auto) Divide % (Auto) Eos % (Auto) Baso % (Auto) Neut # (Auto) Lymph # (Auto) Divide # (Auto) Eos # (Auto) Baso # [...] % (Auto) 45.7 Lymph % (Auto) 42.4 Divide % (Auto) 6.4 Eos % (Auto) 2.7 Baso % (Auto) 2.8 Neut # (Auto) 3.2 Lymph # (Auto) 3.0 Divide # (Auto) 0.4 Eos # (Auto) 0.2 [...] MPV Neut % (Auto) Lymph % (Auto) Divide % (Auto) Eos % (Auto) Baso % (Auto) Neut # (Auto) Lymph # (Auto) Divide # (Auto) Eos # (Auto) Baso # [...] artery disease): Assessment/Problem Details: Angiographic studies from [place] reviewed. She had a 99% ramus intermedius [...] Code(s): I25.10 - Atherosclerotic heart disease of augustine coronary artery without angina pectoris Status: Acute [...] activity recommended Documented By: Itz Townsend MD 41 Signed By: <Electronically signed by MD Itz Townsend> 05/10/2246 [facility] Work Phone: 1(975) 301-144009-09-2022 Consult note Author Itz Townsend [facility] May 09, 2022 5:03pm Note Date/Time May 09, 2022 5:03pm [facility] [address] [place] [address] Cardiology Consult Note Signed Patient: Tere Hartmann MR#: [id number] : 1940 Acct:[id number] Age/Sex: 82 / F Adm Date: 2 Loc: Room: [address] [place] [address] Type: ADM IN Attending Dr: Herminia Lawler [...] comparisonand will not use the enzymes from [place] to make decisions. Presently it appears the [...] of heart artery stent x3 placed in [facility] February 2022 Social History Smoking Status: [...] x10E3/uL Lymph # (Auto) 2.2 (1.00-4.8) x10E3/uL Divide # (Auto) 0.4 (0.0-0.8) x10E3/uL Eos # [...] 15:59 23:59 Intake Total Balance Intake: Oral 25 Other: # Unmeasured Voids 1 Weight [...] Code(s): I25.10 - Atherosclerotic heart disease of augustine coronary artery without angina pectoris (2) DM [...] follow advise. Documented By: Itz Townsend MD [id number] Signed By: <Electronically signed by MD Itz Townsend> 05/09/22 7506 [facility] Work Phone: 1(411) 736-580809-09-2022 History and physical note Author Herminia Lawler [facility] May 09, 2022 3:50pm Note Date/Time May 09, 2022 1:19pm [facility] [address] [place] [address] Hospitalist H&P Signed Patient: Tere Hartmann MR#: [id number] : 1940 Acct:[id number] Age/Sex: 82 / F Adm Date: 2 Loc: Room: [address] [place] [address] Type: ADM IN Attending Dr: Herminia Lawler MD Copies to: MD Herminia Owens II, MD~ HPI DATE OF EXAMINATION: 05/09/22 CHIEF COMPLAINT: Epigastric pain HISTORY OF PRESENT ILLNESS: Patient is an 82 elderly female with PMH HTN, DM, CAD s/p recent PCIs, patient had symptoms of SOB and fatigue on exertion in February and went to [facility], She had Echo with EF 40%, [...] stated compliance. This time, patient presented at [facility] this morning, initial troponin was negative, EKG with no acute ischemic changes. 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 Last Echo on report with EF 40%.This morning, repeat Troponin at [place] uptrended to 600s, EKG with no acute ischemic changes again, given her recent cardiac history, raised the concern forstent thrombosis/restenosis. Patient was started on IV heparin drip for presumptive NSTEMI and decision made [facility] [facility] for possible cardiac [facility]. During my encounter, [...] of heart artery stent x3 placed in [facility] February 2022 Social History Smoking Status: [...] then RCA and PDA on 04/21/22 at [facility] PE was ruled out by CTA Aortic dissection was ruled out by CTA -Patient was transferred from [facility] for NSTEMI for possible cardiac cath -Initial troponin at [place] was normal then repeat was in 600s. Repeat troponin in our facility remains in the 600s. Patient denies any chest pain or epigastric pain, however, she does report bloating sensation in the epigastrium -Patient was started on heparin drip ACS protocol at [place]. We will continuefor now. Further recommendations to follow by cardio -Heparin drip management per pharmacy protocol for ACS -Check serial troponin -Cardiology was consulted. We will follow-up recommendations -Continue DAPT, statin, beta-reginaldo -Check Echocardiogram -Admit to 4 P for close monitoring Uncontrolled Diabetes with hyperglycemia -HbA1C today 10.8 -Blood glucose at [place] was 499. Negative for ketones. DKA was [...] signed by Herminia Lawler MD> 05/09/22 1550 [facility] Work Phone: [phone] History general Narrative - Reported* Type Description Date Medical History DM2 Medical History HTN Medical History cervical cancer stage 1 Medical History glaucoma Medical History [facility] Medical History coronary artery dise ase-stents x3 February/March 2022 Surgical History MIREYA 1989 Surgical History appedectomy 1960 Surgical History breast biopsy-benign unsure of date Surgical History Stents x3 2021 Hospitalization History See Above Person[employer] Other Discharge summary Author Herminia Lawler [facility] May 11, 2022 2:35pm Note Date/Time May 11, 2022 2:27pm [facility] [address] [place] [address] Discharge Summary Signed Patient: Tere Hartmann MR#: [id number] : 1940 Acct:[id number] Age/Sex: 82 / F Adm Date: 2 Loc: Room: [address] [place] [address]: Herminia Lawler MD Copies to: [...] on exertion in February and went to [facility], She had Echo with EF 40%, [...] stated compliance. This time, patient presented at [facility] with epigastric pain, initial troponin was negative, EKG with no acute ischemic changes. 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 Last Echo on report with EF 40%. Repeat Troponin at [place] uptrended to 600s, EKG with no acute ischemic changes again, given her recent cardiac history, raised the concern forstent thrombosis. Patient was started on IV heparin drip for presumptive NSTEMI and decision made to transfer patient over here to [facility] for possible cardiac cath. In our facility, [...] in 3-[address] AP at [facility] found to have incidentaloma left adrenal 3.6 mass.Need outpatient follow up. Also strict glucose follow up. Maybe endocrinology referral. ) Documented By: Herminia Lawler MD 05/11/22 14 25 Signed By: <Electronically signed by Herminia Lawler MD> 05/11/22 1435 [facility] Work Phone: Evaluation note* Diagnosis Onset Date Resolution Status CAD (coronary artery disease) acute DM (diabetes mellitus) acute Elevated troponin acute Epigastric abdominal pain ac alla HLD (hyperlipidemia) acute HTN (hypertension) acute [facility] Work Phone: Evaluation noteNo assessment information available [facility] Work Phone: Hospital Discharge [...] worsening in symptoms or developing [facility] Work Phone: Reason for visit NarrativeSelf Referral, [facility] Visit Codes, TKM 2 IDDMNort [employer] Other Summary Purpose Family History No Family [...] and content) DATE CREATED AUTHOR 04/28/2022 [facility] [place] DATE CREATED AUTHOR AUTHOR'S ORGANIZ ATION 05/27/2022 [facility] DATE CREATED AUTHOR AUTHOR'S ORGANIZ ATION 12/05/2022 [facility] DATE CREATED AUTHOR AUTHOR'S ORGANIZ ATION 05/14/2023 [facility] DATE CREATED AUTHOR AUTHOR'S ORGANIZ ATION 09/28/2023 [facility] DATE CREATED AUTHOR AUTHOR'S ORGANIZ ATION 04/28/2024 [facility] DATE CREATED AUTHOR AUTHOR'S ORGANIZ ATION 05/07/2024 [facility] EPIC Care Teams (unrecognized sec tion and content) [...] BE BASED ON THE PRIMARY CLINICAL RECORDS. [employer] provides no warranty or guarantee of the accuracy or completeness of information in this document.
--- NOTE | 2024-05-28 08:40 | PC.NURSE ---
Patient concerned about elevated blood pressure readings at home.
--- NOTE | 2024-05-28 08:42 | XR_ITS ---
The [address] [address] Patient Name: MERRILL ARAGON MRN: [id number] date: 1940 Sex: F Assigned Patient Location: ER Current Patient Location: ER Accession/Order Number: [id number] Exam Date: 05/28/2024 08:50 Report Date: 05/28/2024 09:07 At the request of: MALCOLM CARABALLO Procedure: XR chest 1V EXAM: XR chest 1V REASON FOR EXAM: dizziness. TECHNIQUE: Single portable view the chest. COMPARISON: [facility], most recent 09/29/2023. FINDINGS: Stable left anterior chest wall pacemaker. Lungs are clear. Heart size is stable. No pleural effusion or pneumothorax. Osseous structures are without acute abnormality XR/XR chest 1V IMPRESSION: No active disease in the chest. Electronically authenticated by: EBONY CLARKE Date: 05/28/2024 09:07
--- NOTE | 2024-05-28 08:42 | ECG_ITS ---
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
--- NOTE | 2024-05-28 08:57 | CT_ITS ---
The [address] [address] Patient Name: MERRILL ARAGON MRN: [facility]:[id number] date: 1940 Sex: F Assigned Patient Location: ER Current Patient Location: ER Accession/Order Number: [id number] Exam Date: 05/28/2024 09:02 Report Date: 05/28/2024 09:18 At the request of: MALCOLM CARABALLO Procedure: CT stroke head/brain wo con EXAM: CT stroke head/brain wo con HISTORY: blurry vision COMPARISON: CT head 09/29/2023. TECHNIQUE: Axial noncontrast CT imaging of the head was performed with coronal and sagittal reformats. This CT exam was performed using one or more of the following dose reduction techniques: Automated exposure control, adjustment of the MA and/or kV according to patient size, or use of iterative reconstruction technique. FINDINGS: Calvarium/skull base: No evidence of acute fracture or destructive lesion. Paranasal sinuses: No air fluid levels. Brain: No acute intracranial hemorrhage. No acute large vascular territory infarct. Stable moderate parenchymal volume loss. No mass lesion or mass effect. No hydrocephalus. Intracranial atherosclerosis. CT/CT stroke head/brain wo con IMPRESSION: No acute intracranial process. If there is clinical concern for acute ischemia recommend MRI brain for further evaluation. Electronically authenticated by: MEGHAN HOANG Date: 05/28/2024 09:18
[2024-05-28] MEDS: HYDRALAZINE HCL 20 MG/ML VIAL 5 MG IVP (09:10)
[2024-05-28 09:28] LABS: Basophils Percent Auto 0.7 % (0.2-2.0); Eosinophils Absolute Auto 0.1 10^3/uL (0.0-0.7); Eosinophils Percent Auto 1.8 % (0.9-7.0); Hematocrit 39.3 % (36.0-48.0); Hemoglobin 12.5 g/dL (12.0-16.0); Immature Granulocytes Abs Auto 0.03 10^3/uL (0.00-0.03); Immature Granulocytes Pct Auto 0.5 % (0.0-0.5); Lymphocytes Absolute Auto 2.5 10^3/uL (1.2-3.8); Lymphocytes Percent Auto 41.9 % (20.5-60.0); Mean Corpuscular HGB Conc 31.8 g/dL (29.9-35.2); Mean Corpuscular Hemoglobin 26.5 pg (26.7-34.0); Mean Corpuscular Volume 83.3 fL (81.0-99.0); Mean Platelet Volume 10.1 fL (9.5-13.5); Monocytes Absolute Auto 0.4 10^3/uL (0.3-0.8); Monocytes Percent Auto 7.1 % (1.7-12.0); Neutrophils Absolute Auto 2.9 10^3/uL (1.4-6.5); Platelet Count 204 10^3/uL (150-450); Red Blood Count 4.72 10^6/uL (4.20-5.40); Red Cell Distribution Width 14.2 % (11.0-15.0)
[2024-05-28 09:41] LABS: INR 1.02; Prothrombin Time 10.8 sec (9.0-11.6)
[2024-05-28 09:53] LABS: Alanine Aminotransferase 25 U/L (14-59); Albumin Level 3.4 g/dL (3.4-5.0); Alkaline Phosphatase 85 U/L (46-116); Anion Gap 12.1; Aspartate Amino Transferase 20 U/L (15-37); BUN Creatinine Ratio 17.6; Bilirubin Total 0.5 mg/dL (0.2-1.0); Calcium 9.6 mg/dL (8.5-10.1); Carbon Dioxide 25.3 mmol/L (21.0-32.0); Chloride 107 mmol/L (98-107); Estimated GFR (African America >60 (>=60); Estimated GFR (Non-African Ame 59 (>=60); Globulin 3.5 g/dL; Glucose 144 mg/dL (74-106); Potassium 4.4 mmol/L (3.5-5.1); Sodium 140 mmol/L (136-145); Total Protein 6.9 g/dL (6.4-8.2); Troponin I High Sensitivity 7.6 pg/mL (4.0-51.3)
--- NOTE | 2024-05-28 10:16 | CT_ITS ---
The [address] [address] Patient Name: MERRILL ARAGON MRN: [id number] date: 1940 Sex: F Assigned Patient Location: ER Current Patient Location: Accession/Order Number: [id number] Exam Date: 05/28/2024 10:35 Report Date: 05/28/2024 11:11 At the request of: MALCOLM CARABALLO Procedure: CT angio neck EXAM: CT angio head, CT angio neck HISTORY: ataxia and burry vision COMPARISON: CT head performed earlier the same date and reported separately. TECHNIQUE: Postcontrast CTA imaging of the head and neck was performed with coronal and sagittal reformats. Maximum intensity projection reformats were performed on a separate workstation. NASCET criteria was utilized. This CT exam was performed using one or more of the following dose reduction techniques: Automated exposure control, adjustment of the MA and/or kV according to patient size, or use of iterative reconstruction technique. Please note all images from above the CT head and CT neck are contained under the CTA HEAD patient jacket. FINDINGS: Aortic arch: Imaged portion shows no evidence of aneurysm. No significant stenosis of the major origins of the major arch vessels. Right carotid system: No evidence of significant (50% or greater) stenosis or occlusion. Left carotid system: No evidence of significant (50% or greater) stenosis or occlusion. Vertebral arteries: Codominant. No evidence of significant (50% or greater) stenosis or occlusion. Anterior circulation: No evidence of aneurysm, significant stenosis, or occlusion. Vertebrobasilar system: No evidence of aneurysm, significant stenosis, or occlusion. Venous sinuses: Grossly patent. Additional findings: Visualized portion of lungs are clear. Subcentimeter nodules noted bilaterally. Opacification of the right sphenoid sinus. Mucoperiosteal thickening of the involved sphenoid sinus. Right onodi cell is noted. No abnormal intracranial enhancement. CT/CT angio neck IMPRESSION: 1. No significant stenosis, large vessel occlusion or aneurysm involving the neck or intracranial arterial vasculature. 2. Chronic right sphenoid sinus disease. Electronically authenticated by: MEGHAN HOANG Date: 05/28/2024 11:11
--- NOTE | 2024-05-28 10:16 | CT_ITS ---
The [address] [address] Patient Name: MERRILL ARAGON MRN: [id number] date: 1940 Sex: F Assigned Patient Location: ER Current Patient Location: Accession/Order Number: [id number] Exam Date: 05/28/2024 10:35 Report Date: 05/28/2024 11:11 At the request of: MALCOLM CARABALLO Procedure: CT angio head EXAM: CT angio head, CT angio neck HISTORY: ataxia and burry vision COMPARISON: CT head performed earlier the same date and reported separately. TECHNIQUE: Postcontrast CTA imaging of the head and neck was performed with coronal and sagittal reformats. Maximum intensity projection reformats were performed on a separate workstation. NASCET criteria was utilized. This CT exam was performed using one or more of the following dose reduction techniques: Automated exposure control, adjustment of the MA and/or kV according to patient size, or use of iterative reconstruction technique. Please note all images from above the CT head and CT neck are contained under the CTA HEAD patient jacket. FINDINGS: Aortic arch: Imaged portion shows no evidence of aneurysm. No significant stenosis of the major origins of the major arch vessels. Right carotid system: No evidence of significant (50% or greater) stenosis or occlusion. Left carotid system: No evidence of significant (50% or greater) stenosis or occlusion. Vertebral arteries: Codominant. No evidence of significant (50% or greater) stenosis or occlusion. Anterior circulation: No evidence of aneurysm, significant stenosis, or occlusion. Vertebrobasilar system: No evidence of aneurysm, significant stenosis, or occlusion. Venous sinuses: Grossly patent. Additional findings: Visualized portion of lungs are clear. Subcentimeter nodules noted bilaterally. Opacification of the right sphenoid sinus. Mucoperiosteal thickening of the involved sphenoid sinus. Right onodi cell is noted. No abnormal intracranial enhancement. CT/CT angio head IMPRESSION: 1. No significant stenosis, large vessel occlusion or aneurysm involving the neck or intracranial arterial vasculature. 2. Chronic right sphenoid sinus disease. Electronically authenticated by: MEGHAN HOANG Date: 05/28/2024 11:11
--- NOTE | 2024-05-28 10:21 | ED_ITS ---
HPI HPI - General Adult General Chief complaint: Recheck/Abnormal Lab/Rx Stated complaint: HIGH BLOOD PRESURE READINGS Time Seen by Provider: 05/28/24 08:42 Source: patient Mode of arrival: walk-in Limitations: no limitations History of Present Illness HPI narrative: The patient is a 84 years old female with history of hypertension hyperlipidemia and diabetes type 2, she mentioned that yesterday she did had some diarrhea only 1 time in the morning, she also mentioned that she went to the bathroom at night almost at 130 at that time she had no complaint but she woke up again at 430 to find that she have blurry vision and her balance is off while she walking to the bathroom. The patient woke up again at 530 with the same complaint When presenting to us the patient still have that complain of blurry vision in both eyes although she mentioned that her right eye have chronic vision problem with glaucoma she also mentioned that she denies any chest pain nausea vomiting headache she also denies any abdominal pain The patient was not very specific about her symptoms but she mentioned that she just feel not right Related Data Home Medications ?Medication ?Instructions ?Recorded ?Confirmed atorvastatin 80 mg tablet 80 mg PO DAILY 09/04/23 05/28/24 carvedilol 12.5 mg tablet 12.5 mg PO Q12H 09/04/23 05/28/24 cyproheptadine 4 mg tablet 2 mg PO .qhs 09/04/23 05/28/24 insulin glargine 100 unit/mL (3 10 unit subcut QPM 09/04/23 05/28/24 mL) subcutaneous pen (Lantus Solostar U-100 Insulin) insulin glargine 100 unit/mL 15 unit subcut QAM 09/04/23 05/28/24 subcutaneous solution (Lantus U-100 Insulin) sitagliptin phos 100 mg-metformin 1 tab PO DAILY 05/28/24 05/28/24 ER 1,000 mg tablet,extend rel 24h mp (Janumet XR) Allergies Allergy/AdvReac Type Severity Reaction Status Date / Time iodine AdvReac Intermediate Rash Verified 05/28/24 08:31 Sulfa (Sulfonamide AdvReac Intermediate Rash Verified 05/28/24 08:31 Antibiotics) empagliflozin AdvReac uti Verified 05/28/24 08:31 [From [facility]] Opioid HPI Opioid Management Most Recent Opioid Data: Last Pain Scale 0 09/05/23 09:55 Review of Systems ROS Status of ROS 10 or more systems reviewed and unremark able except as noted in history and below [facility] Medical History (Updated 05/28/24 @ 10:26 by Nikkie Blandon MD) Dehydration ?E86.0 - Dehydration (ICD-10) Metabolic acidosis ?E87.20 - Acidosis, unspecified (ICD-10) Hyponatremia ?E87.1 - Hypo-osmolality and hyponatremia (ICD-10) Bradycardia ?R00.1 - Bradycardia, unspecified (ICD-10) URI (upper respiratory infection) ?J06.9 - Acute upper respiratory infection, unspecified (ICD-10) Diabetes ?E11.9 - Type 2 diabetes mellitus without complications (ICD-10) Heart attack ?I21.9 - Acute myocardial infarction, unspecified (ICD-10) Uterine cancer ?C55 - Malignant neoplasm of uterus, part unspecified (ICD-10) Surgical History (Updated 09/04/23 @ 16:07 by Gena Islas) History of heart artery stent ?Z95.5 - Presence of coronary angioplasty implant and graft (ICD-10) Social History Smoking status: Never smoker Highest level of school completed/degree received: 11th grade Little interest or pleasure in doing things: not at all Feeling down, depressed, or hopeless: not at all Exam Narrative Exam Narrative: Nurses notes and vital signs reviewed and patient is not hypoxic. General: Well-appearing and in no apparent distress. Skin: Warm, dry, no pallor noted. No rash. Head: Normocephalic, atraumatic. Neck: Supple, non-tender. Eye: Pupils are equal, round and EOMI. No scleral icterus. Ears, Nose, Mouth, and Throat: TM are clear, no nasal mucosal hypertrophy. Oral mucosa is moist, no posterior oropharynx erythema, uvula is mid-line Cardiovascular: Regular Rate and Rhythm without murmur, gallop or rub. Respiratory: No accessory muscle use or respiratory distress. Lungs are clear to auscultation, no wheezing, rales or rhonchi Chest Wall: no tenderness Back: No midline thoracic or lumbar vertebral tenderness. No CVA tenderness Musculoskeletal: normal ROM, no calf or popliteal tenderness, no lower extremity edema/swelling GI: Abdomen is soft, non-distended. Normal bowel sounds. No masses appreciated. No tenderness to palpation. No rebound, guarding, or rigidity noted. Neurological: A&O x4. No cranial nerve dysfunction observed. No truncal ataxia. Moves all extremities. Sensation intact. Psychiatric: Cooperative and interactive. Normal mood and affect. My NIH score for the patient was normal twice upon arrival and after the CAT scan of the brain The neurological weakness that only detected was when the patient standing up she is walking very slowly to the bathroom with a very shuffling mood with her feet together, she also mentioned that she had blurry vision in both eyes within normal with no visual field defect Constitutional Vital Signs, click to edit/add: Last Vital Signs Temp 98.1 F 05/28/24 08:33 Pulse 60 05/28/24 11:24 Resp 18 05/28/24 11:24 BP 158/68 H 05/28/24 11:24 Pulse Ox 97 05/28/24 11:24 O2 Del Method Room Air 05/28/24 11:24 Course Vital Signs Vital signs: Vital Signs Pulse Oximetry 98 05/28/24 08:26 Temperature 98.1 F 05/28/24 08:33 Pulse Rate 60 05/28/24 11:24 Respiratory Rate 18 05/28/24 11:24 Blood Pressure 158/68 H 05/28/24 11:24 Pulse Oximetry 97 05/28/24 11:24 Oxygen Delivery Method Room Air 05/28/24 11:24 Medical Decision Making [facility] Narrative Medical decision making narrative: The patient upon arrival had a CT head showing atrial rhythm with a heart rate of [address] elevation or depression The patient CT head showed no acute pathology CBC and chemistry within normal as well The patient case was discussed with teleneurology physician and right now CT angio head and neck will be obtained to rule out further pathology. And also the patient blood pressure will be controlled she initially received hydralazine that controlled her blood pressure to 172/[address] angio head and neck showed no acute pathology right now with a plan to give the patient 324 mg aspirin p.o. in addition to gentle hydration and controlling the blood pressure to be below 180 systolic Patient care was discussed with and he agreed with above-mentioned pl an Lab Data Labs: Lab Results 09/28/24 Range/Units 08:45 WBC 6.0 (4.0-11.0) 10^3/uL RBC 4.72 (4.20-5.40) 10^6/uL Hgb 12.5 (12.0-16.0) g/dL Hct 39.3 (36.0-48.0) % MCV 83.3 (81.0-99.0) fL MCH 26.5 L (26.7-34.0) pg MCHC 31.8 (29.9-35.2) g/dL RDW 14.2 (11.0-15.0) % Plt Count 204 (150-450) 10^3/uL MPV 10.1 (9.5-13.5) fL Neut % (Auto) 48.0 (43.0-75.0) % Lymph % (Auto) 41.9 (20.5-60.0) % Phelps % (Auto) 7.1 (1.7-12.0) % Eos % (Auto) 1.8 (0.9-7.0) % Baso % (Auto) 0.7 (0.2-2.0) % Neut # (Auto) 2.9 (1.4-6.5) 10^3/uL Lymph # (Auto) 2.5 (1.2-3.8) 10^3/uL Phelps # (Auto) 0.4 (0.3-0.8) 10^3/uL Eos # (Auto) 0.1 (0.0-0.7) 10^3/uL Baso # (Auto) 0.0 (0.0-0.1) 10^3/uL Abs Immat Gran (auto) 0.03 (0.00-0.03) 10^3/uL Imm/Tot Granulo (auto) 0.5 (0.0-0.5) % PT 10.8 (9.0-11.6) sec INR 1.02 Sodium 140 (136-145) mmol/L Potassium 4.4 (3.5-5.1) mmol/L Chloride 107 (98-107) mmol/L Carbon Dioxide 25.3 (21.0-32.0) mmol/L Anion Gap 12.1 BUN 16.0 (7.0-18.0) mg/dL Creatinine 0.91 (0.55-1.02) mg/dL Est GFR ( Amer) >60 (>=60) Est GFR (Non-Af Amer) 59 L (>=60) BUN/Creatinine Ratio 17.6 Glucose 144 H (74-106) mg/dL Calcium 9.6 (8.5-10.1) mg/dL Total Bilirubin 0.5 (0.2-1.0) mg/dL AST 20 (15-37) U/L ALT 25 (14-59) U/L Alkaline Phosphatase 85 (46-116) U/L Troponin I High Sens 7.6 (4.0-51.3) pg/mL Total Protein 6.9 (6.4-8.2) g/dL Albumin 3.4 (3.4-5.0) g/dL Globulin 3.5 g/dL Albumin/Globulin Ratio 1.0 Discharge Plan Discharge Chief Complaint: Recheck/Abnormal Lab/Rx Clinical Impression: Hypertensive emergency Patient Disposition: Admitted As Inpatient Time of Disposition Decision: 12:00
[2024-05-28 12:38] LABS: Chol HDL Ratio 2.4; Cholesterol 99 mg/dL (<=200); Estimated Average Glucose 146 mg/dL; Glycohemoglobin A1C 6.7 % (4.5-6.2); HDL Cholesterol 42 mg/dL (40-60); LDL Cholesterol Calculated 41.6 mg/dL; Triglycerides 77 mg/dL (<=150); VLDL CHOLESTEROL 15.4 mg/dL
--- OUTSIDE RECORDS SUMMARY | 2024-05-28 13:48 | XMS_ITS | CCD ---
Author Organization [facility] CliniSytn Care Team Providers Care Service Desk Director Name Role Phone RODRICK BUTLER Primary Care Unavailable RODRICK BUTLER Referring Unavailable SILVINA BREEN Admitting Unavailable SILVINA BREEN Attending Unavailable RODRICK BUTLER Primary Care Unavailable RODRICK BUTLER Referring Unavailable SILVINA BREEN Admitting Unavailable SILVINA BREEN Attending Unavailable CHANDA Butler Primary Care Provider MD Herminia Lawler Admit Provider [phone] MD Herminia Lawler Attending Provider KY Rojas Other Provider Unavailable DO Darrion Gilbert Other Provider [phone] MD Bo Boothe Other Provider [phone] MD Itz Townsend Other Provider MD Azra Cedillo Other Provider [phone] MD Jesse Sahu Other Provider JUAN Ramos [...] sources) Iodine Drug Allergy 2 Rash [facility] Repository (6 sources) Sulfonamides (Antibiotic); 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: [SULFA (SULFONAMIDE ANTIBIOTICS)] Drug allergy (disorder) 5 Blister [facility] Repository (4 sources) Shellfish; 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: [shellfish derived] Propensity to adverse reactions 2 Vomiting [facility] (1 source) Sulfonamides (Antibiotic) Propensity to adverse reactions mouth sores [facility] Other (1 source) shellfish/iodine Propensity to adverse reactions vomiting [facility] Other (1 source) empagliflozin Drug Allergy [facility] Repository (1 source) Iodine Drug Allergy 5 [facility] Repository (1 source) Shellfish Drug allergy (disorder) 5 [facility] Repository (1 source) Iodine Drug Allergy 2 [facility] Repository (1 source) Sulfonamides (Antibiotic) Drug allergy (disorder) 2 [facility] Repository (1 source) empagliflozin; 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: [EMPAGLIFLOZIN] Drug Allergy 2 [facility] Repository Medications Current Medications Medication Drug [...] May 10, 2022 11:00pm FreeStyle Marianne 2 [place] - (1 source) Start: 09-23-2022 FreeStyle Libr e 2 [place] - as directed -- 5 x day for 365 days Sending to [facility] medical Aug, Active FreeStyle Marianne 2 Sensor - (1 source) Start: 09-23-2022 FreeStyle Libr e 2 Sensor - as directed in vitro q 14 days for 84 days Sending to [facility] medical Aug, Active furosemide 20 mg [...] Coronary arteriosclerosis; 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: [Atherosclerotic heart disease of [place] coronary artery without angina pectoris] Onset: 09-08-2022 [...] source) Long-term current use of insulin; 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: [parts counterman (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 of insulin] Episodic Other aftercare (2 sources) parts counterman (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 of insulin; 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: [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 INSULIN] Onset: 11-25-2022 Episodic Other aftercare (1 source) parts counterman (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 of aspirin; 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: [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 USE OF ASPIRIN] Onset: 11-25-2022 Episodic Other aftercare (1 source) Other [facility] (current) drug therapy; 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: [OTH 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 DRUG THERAPY] Onset: 11-25-2022 Episodic Other aftercare (1 source) parts counterman (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 of antithrombotics/ant iplatelets; 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: [[facility] ANTITHROMBOT/ANTIPL ATLETS] Onset: 11-25-2022 Episodic Other endocrine [...] Range Facility Office Visiton 09-16-2023 Follow-up visit [id number] Toya Hartmann 1940 F Date Provider Department Center 09/16/2023 ABBIE WEBER CARD Igor Hos Family History Problem Relation Age of Onset Hypertension Mother Coronary artery disease Mother Coronary artery disease Father Hypertension Father Hypertension Sister Coronary artery disease Brother Family Status - Relation Status Age at Mother Father Sister Brother Level of Service:36827 [place] POSTOP FOLLOW UP VISIT RELATED TO ORIGINAL PX Normal [facility] BASIC METABOLIC PANELon 08-31 Anion gap [Moles/Vol] 15 mmol/L Normal 7-20 [facility] Comment on above: Performed By: #### L [id number] #### [facility] (AKER) [address] [place] [address] Calcium [Mass/Vol] 10.1 mg/dL Normal 8.6-10.3 [facility] Comment on above: Performed By: #### L [id number] #### [facility] (BEAKER) [address] [place] [address] Chloride [Moles/Vol] 103 mmol/L Normal 98-107 [facility] Comment on above: Performed By: #### L [id number] #### [facility] (BEAKER) [address] [place] [address] CO2 [Moles/Vol] 21 mmol/L Normal 21-31 [facility] Comment on above: Performed By: #### L [id number] #### [facility] (BEAKER) [address] [place] [address] Creatinine [Mass/Vol] 0.95 mg/dL Normal 0.60-1.20 [facility] Comment on above: Performed By: #### L [id number] #### [facility] ([facility]) [address] [place] [address] GLOMERULAR FILTRATION RATE ML/MIN/1.73 SQ M.PREDICTED 59.1 mL/min/1.73m*2 Low >60.0 [facility] Comment on above: Result Comment: [facility]???s estimated glomerular filtration rate (eGFR) will [...] group of individuals. Performed By: #### L [id number] #### [facility] ([facility]) [address] [place] [address] Glucose [Mass/Vol] 149 mg/dL High 70-100 [facility] Comment on above: Performed By: #### L [id number] #### [facility] ([facility]) [address] [place] [address] Potassium [Moles/Vol] 5.0 mmol/L Normal 3.5-5.1 [facility] Comment on above: Performed By: #### L [id number] #### [facility] ([facility]) [address] [place] [address] Sodium [Moles/Vol] 134 mmol/L Low 136-145 [facility] Comment on above: Performed By: #### L [id number] #### [facility] ([facility]) [address] [place] [address] Urea nitrogen [Mass/Vol] 22 mg/dL Normal 7-25 [facility] Comment on above: Performed By: #### L [id number] #### [facility] ([facility]) [address] [place] [address] UREA NITROGEN/CREATININE (MASS RATIO) IN SER/PLAS 23.2 Normal [facility] Comment on above: Performed By: #### L [id number] #### [facility] ([facility]) [address] [place] [address] CBCon 09-09-2023 Erythrocyte distribution width (RBC) [Ratio] 14.4 % Normal 11.5-15.0 [facility] Comment on above: Performed By: #### L [id number] #### [facility] ([facility]) [address] [place] [address] ERYTHROCYTE MEAN CORPUSCULAR HEMOGLOBIN CONCENTRATION (G/DL) BY AUTOMATED 31.3 g/dL Low 32.0-35.0 [facility] Comment on above: Performed By: #### L [id number] #### [facility] ([facility]) [address] [place] [address] Hematocrit (Bld) [Volume fraction] 42.5 % Normal 36.0-48.0 [facility] Comment on above: Performed By: #### L [id number] #### [facility] ([facility]) [address] [place] [address] Hemoglobin (Bld) [Mass/Vol] 13.3 g/dL Normal 12.0-15.0 [facility] Comment on above: Performed By: #### L [id number] #### [facility] ([facility]) [address] [place] [address] MCH (RBC) [Entitic mass] 26.2 pg Low 27.0-33.0 [facility] Comment on above: Performed By: #### L [id number] #### [facility] ([facility]) [address] [place] [address] MCV (RBC) [Entitic vol] 83.8 fL Normal 82.0-98.0 U [facility] Comment on above: Performed By: #### L [id number] #### [facility] ([facility]) [address] [place] [address] PLATELETS (10*3/UL) IN BLOOD AUTOMATED COUNT 220 10*3/uL Normal 150-400 [facility] Comment on above: Performed By: #### L [id number] #### [facility] ([facility]) [address] [place] [address] RBC (Bld) [#/Vol] 5.07 10*6/uL High 3.80-5.00 [facility] Comment on above: Performed By: #### L [id number] #### [facility] ([facility]) [address] [place] [address] WBC (Bld) [#/Vol] 9.41 10*3/uL Normal 4.00-10.60 [facility] Comment on above: Performed By: #### L [id number] #### [facility] ([facility]) [address] [place] [address] MAGNESIUMon 09-09-2023 Magnesium [Mass/Vol] 1.7 mg/dL Low 1.9-2.7 [facility] Comment on above: Performed By: #### L [id number] #### [facility] ([facility]) [address] [place] [address] POCT GLUCOSE METER UNSOLICIT ED RESULTSon 09-09-2023 Glucose [Mass/Vol] 138 mg/dL High 70-105 [facility] Comment on above: Order Comment: Waive d Testing in the ED is performed under the ED CLIA certificate #[id number]. Result Comment: vcar mon Performed By: #### L [id number] #### [facility] ([facility]) [address] [place] [address] 30on 09-08-2023 30 The patient is Moderately Stable - Low risk of patient condition declining or worsening The patient's goals for the shift include comfort, rest The clinical goals for the shift include vss Over the shift, the patient did not make progress toward the following goals. Barriers to progression include na. Recommendations to address these barriers include na. Normal [facility] 30 Daily Case Managemen t Update Multidisciplinary rounds have been completed. Barriers to Discharge: S/p PPM placement. 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 Diet: Dietary Orders (From admission, onward) Start Ordered 09/08/23 0838 Diet NPO Diet effective now Comments: Sips with medications Question: Reason for NPO: Answer: Operation/Procedure 09/08/23 0837 09/08/23 0746 Special Kitchen Request Once Comments: Italian toast with sugar free syrup, lite strawberry [...] of Consultation Consultation and Management 09/07/231957 Normal [facility] BASIC METABOLIC PANELon Anion gap [Moles/Vol] 10 mmol/L Normal 7-20 [facility] Comment on above: Performed By: #### L [id number] #### [facility] ([facility]) [address] [place] [address] Calcium [Mass/Vol] 9.3 mg/dL Normal 8.6-10.3 [facility] Comment on above: Performed By: #### L [id number] #### [facility] ([facility]) [address] [place] [address] Chloride [Moles/Vol] 108 mmol/L High 98-107 [facility] Comment on above: Performed By: #### L [id number] #### [facility] ([facility]) [address] [place] [address] CO2 [Moles/Vol] 20 mmol/L Low 21-31 [facility] Comment on above: Performed By: #### L [id number] #### [facility] ([facility]) [address] [place] [address] Creatinine [Mass/Vol] 0.97 mg/dL Normal 0.60-1.20 [facility] Comment on above: Performed By: #### L [id number] #### [facility] ([facility]) [address] [place] [address] GLOMERULAR FILTRATION RATE ML/MIN/1.73 SQ M.PREDICTED 57.6 mL/min/1.73m*2 Low >60.0 [facility] Comment on above: Result Comment: [facility]???s estimated glomerular filtration rate (eGFR) will [...] individuals. Performed By: #### L [id number] #### [facility] ([facility]) [address] [place] [address] Glucose [Mass/Vol] 127 mg/dL High 70-100 [facility] Comment on above: Performed By: #### L [id number] #### [facility] ([facility]) [address] [place] [address] Potassium [Moles/Vol] 4.7 mmol/L Normal 3.5-5.1 [facility] Comment on above: Performed By: #### L [id number] #### [facility] ([facility]) [address] [place] [address] Sodium [Moles/Vol] 133 mmol/L Low 136-145 [facility] Comment on above: Performed By: #### L [id number] #### [facility] ([facility]) [address] [place] [address] Urea nitrogen [Mass/Vol] 22 mg/dL Normal 7-25 [facility] Comment on above: Performed By: #### L [id number] #### [facility] ([facility]) [address] [place] [address] UREA NITROGEN/CREATININE (MASS RATIO) IN SER/PLAS 22.7 Normal [facility] Comment on above: Performed By: #### L [id number] #### [facility] ([facility]) [address] [place] [address] CBCon 09-08-2023 Erythrocyte distribution width (RBC) [Ratio] 14.7 % Normal 11.5-15.0 [facility] Comment on above: Performed By: #### L [id number] #### [facility] ([facility]) [address] [place] [address] ERYTHROCYTE MEAN CORPUSCULAR HEMOGLOBIN CONCENTRATION (G/DL) BY AUTOMATED 31.7 g/dL Low 32.0-35.0 [facility] Comment on above: Performed By: #### L [id number] #### [facility] ([facility]) [address] [place] [address] Hematocrit (Bld) [Volume fraction] 42.3 % Normal 36.0-48.0 [facility] Comment on above: Performed By: #### L [id number] #### [facility] ([facility]) [address] [place] [address] Hemoglobin (Bld) [Mass/Vol] 13.4 g/dL Normal 12.0-15.0 [facility] Comment on above: Performed By: #### L [id number] #### [facility] ([facility]) [address] [place] [address] MCH (RBC) [Entitic mass] 26.7 pg Low 27.0-33.0 [facility] Comment on above: Performed By: #### L [id number] #### [facility] ([facility]) [address] [place] [address] MCV (RBC) [Entitic vol] 84.3 fL Normal 82.0-98.0 [facility] Comment on above: Performed By: #### L [id number] #### [facility] ([facility]) [address] [place] [address] PLATELETS (10*3/UL) IN BLOOD AUTOMATED COUNT 177 10*3/uL Normal 150-400 [facility] Comment on above: Performed By: #### L [id number] #### [facility] ([facility]) [address] [place] [address] RBC (Bld) [#/Vol] 5.02 10*6/uL High 3.80-5.00 [facility] Comment on above: Performed By: #### L [id number] #### [facility] ([facility]) [address] [place] [address] WBC (Bld) [#/Vol] 6.99 10*3/uL Normal 4.00-10.60 [facility] Comment on above: Performed By: #### L [id number] #### [facility] ([facility]) [address] [place] [address] HPon 09-08-2023 HP H&P reviewed. The patient was examined and there are no changes to the H&P.the patient was found to have RV lead migration, she will need lead revision Normal [facility] Orders Onlyon 09-08-2023 Orders Only [id number] HartmannGraciececilia Vidal 1940 F Date Provider Department Center 09/08/2023 [facility] MD HeartVAS Family History Problem Relation Age of Onset Hypertension Mother Coronary artery disease Mother Coronary artery disease Father Hypertension Father Hypertension Sister Coronary artery disease Brother Family Status - Relation Status Age at Mother Father Sister Brother Normal [facility] POCT GLUCOSE METER UNSOLICIT ED RESULTSon 09-08-2023 Glucose [Mass/Vol] 228 mg/dL High 70-105 [facility] Comment on above: Order Comment: Waive d Testing in the ED is performed under the ED CLIA certificate #[id number]. Result Comment: [email or web address] Performed By: #### L [id number] #### [facility] ([facility]) [address] [place] [address] Glucose [Mass/Vol] 128 mg/dL High 70-105 [facility] Comment on above: Order Comment: Waive d Testing in the ED is performed under the ED CLIA certificate #[id number]. Result Comment: vcar mon Performed By: #### L [id number] #### [facility] (BEAKER) [address] [place] [address] Glucose [Mass/Vol] 143 mg/dL High 70-105 [facility] Comment on above: Order Comment: Waive d Testing in the ED is performed under the ED CLIA certificate #[id number]. Result Comment: vcar mon Performed By: #### L [id number] #### [facility] (BEAKER) [address] [place] [address] Glucose [Mass/Vol] 136 mg/dL High 70-105 [facility] Comment on above: Order Comment: Waive d Testing in the ED is performed under the ED CLIA certificate #[id number]. Result Comment: vcar mon Performed By: #### L [id number] #### [facility] ([facility] [address] [place] [address] 30on 09-07-2023 30 The patient is Moderately Stable - Low risk of patient condition declining or worsening The patient's goals for the shift include comfort The clinical goals for the shift include vss Normal [facility] 09-07-2023 ANES - Attestation signed by Cody [...] attending and fellow. Additional Equipment Requests Normal [facility] HPon 09-07-2023 Cardiology History & Physical Chief Complaint: Dizziness HPI: Tere Hartmann is a 83 y.o. 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 History of PCI in ramus and RCA, [...] medical history of CHF (congestive heart failure) ([facility]), Coronary artery disease, Diabetes mellitus ([facility]), and Hyperlipidemia. Surgical History She has a [...] Plan for PPM placement Vinny Bueno MD Product Safety Tester - PGY4 [facility] NURSNOTEon 09-07-2023 NURSNOTE CHG wipes and betadine nasal swabs completed. [facility] Orders Onlyon 09-07-2023 Orders Only [id number] Hartmann,Shirle y A 1940 F Date Provider Department Center 09/07/2023 148VINNY PALMER [facility] Family History Problem Relation Age of Onset Hypertension Mother Coronary artery disease Mother Coronary artery disease Father Hypertension Father Hypertension Sister Coronary artery disease Brother Family Status - Relation Status Age at Mother Father Sister Brother [facility] POCT GLUCOSE METER UNSOLICIT ED RESULTSon 09-07-2023 Glucose [Mass/Vol] 169 mg/dL High 70-105 [facility] Comment on above: Order Comment: Waive d Testing in the ED is performed under the ED CLIA certificate #[id number]. Result Comment: [email or web address] Performed By: #### L [id number] #### [facility] (BEAKER) [address] [place] [address] Glucose [Mass/Vol] 70 mg/dL Normal 70-105 [facility] Comment on above: Order Comment: Waive d Testing in the ED is performed under the ED CLIA certificate #[id number]. Result Comment: [email or web address] Performed By: #### L [id number] #### [facility] ([facility]) [address] [place] [address] Office Visiton 06-03-2023 Follow-up visit [id number] Toya Hartmann 1940 F Date Provider Department Center 06/03/2023 JOSH BRIZUELA CARD [facility] Family History Problem Relation Age of Onset Hypertension Mother Coronary artery disease Mother Coronary artery disease Father Hypertension Father Hypertension Sister Coronary artery disease Brother Family Status - Relation Status Age at Mother Father Sister Brother Level of Service:32544 [place] OFFICE/OUTPATIENT ESTABLISHED LOW MDM 20-29 MIN Normal [facility] Outside Recordson 05-13-2023 Outside Records [id number]# 1.00CD:127 Normal [facility] Physician Orderon 05-13-2023 Physician Order [id number]# 1.00CD:127 Normal [facility] BNPon 11-24-2022 Natriuretic peptide B (Bld) [Mass/Vol] 703.0 pg/mL Normal <=1,800.0 [facility] Comment on above: Performed By: #### C VDTBH #### [facility] [address] [address] [address] Kesha Aguero CBC AUTO DIFFon 11-24-2022 BASO # 0.0 103/ul Normal 0.0-0.1 [facility] Comment on above: Performed By: #### D DIM #### [facility] [address] [address] [address] Kesha Aguero Basophils/100 WBC (Bld) 0.5 % Normal 0.2-2.0 [facility] Comment on above: Performed By: #### D DIM #### [facility] [address] [place] [address] Dr. Kesha Aguero EO # 0.1 103/ul Normal 0.0-0.7 [facility] Comment on above: Performed By: #### D DIM #### [facility] [address] [place] [address] Dr. Kesha Aguero Eosinophils/100 WBC (Bld) 1.4 % Normal 0.9-7.0 [facility] Comment on above: Performed By: #### D DIM #### [facility] [address] [place] [address] Dr. Kesha Aguero Erythrocyte distribution width (RBC) [Ratio] 14.9 % Normal 11.0-15.0 [facility] Comment on above: Performed By: #### D DIM #### [facility] [address] [place] [address] Dr. Kesha Aguero Hematocrit (Bld) [Volume fraction] 45.3 % Normal 36.0-48.0 [facility] Comment on above: Performed By: #### D DIM #### [facility] [address] [place] [address] Dr. Kesha Aguero Hemoglobin (Bld) [Mass/Vol] 13.9 g/dL Normal 12.0-16.0 [facility] Comment on above: Performed By: #### D DIM #### [facility] [address] [place] [address] Dr. Kesha Aguero IG # 0.02 10e3/ul Normal 0.00-0.03 [facility] Comment on above: Performed By: #### D DIM #### [facility] [address] [place] [address] Dr. Kesha Aguero IG % 0.2 % Normal 0.0-0.5 [facility] Comment on above: Performed By: #### D DIM #### [facility] [address] [place] [address] Dr. Kesha Aguero LYMPH # 2.6 103/ul Normal 1.2-3.8 [facility] Comment on above: Performed By: #### D DIM #### [facility] [address] [place] [address] Dr. Kesha Aguero Lymphocytes/100 WBC (Bld) 30.3 % Normal 20.5-60.0 [facility] Comment on above: Performed By: #### D DIM #### [facility] [address] [place] [address] Dr. Kesha Aguero MANUAL DIFF REQ NO Normal [facility] Comment on above: Performed By: #### D DIM #### [facility] [address] [place] [address] Dr. Kesha Aguero MCH (RBC) [Entitic mass] 25.6 pg Critically low 26.7-34.0 [facility] Comment on above: Performed By: #### D DIM #### [facility] [address] [place] [address] Dr. Kesha Aguero MCHC (RBC) [Mass/Vol] 30.7 g/dL Normal 29.9-35.2 [facility] Comment on above: Performed By: #### D DIM #### [facility] [address] [place] [address] Dr. Kesha Aguero MCV (RBC) [Entitic vol] 83.3 fL Normal 81.0-99.0 [facility] Comment on above: Performed By: #### D DIM #### [facility] [address] [place] [address] Dr. Kesha Aguero MONO # 0.6 103/ul Normal 0.3-0.8 [facility] Comment on above: Performed By: #### D DIM #### [facility] [address] [place] [address] Dr. Kesha Aguero Monocytes/100 WBC (Bld) 6.5 % Normal 1.7-12.0 [facility] Comment on above: Performed By: #### D DIM #### [facility] [address] [place] [address] Dr. Kesha Aguero NEUT # 5.1 103/ul Normal 1.4-6.5 [facility] Comment on above: Performed By: #### D DIM #### [facility] [address] [address] [address] Kesha Aguero Neutrophils/100 WBC (Bld) 61.1 % Normal 43.0-75.0 [facility] Comment on above: Performed By: #### D DIM #### [facility] [address] [address] [address] Kesha Aguero Platelet mean volume (Bld) [Entitic vol] 9.6 fL Normal 9.5-13.5 [facility] Comment on above: Performed By: #### D DIM #### [facility] [address] [place] [address] Dr. Kesha Aguero PLT 208 103/ul Normal 150-450 [facility] Comment on above: Performed By: #### D DIM #### [facility] [address] [place] [address] Dr. Kesha Aguero RBC 5.44 106/ul Critically high 4.20-5.40 [facility] Comment on above: Performed By: #### D DIM #### [facility] [address] [place] [address] Dr. Kesha Aguero WBC 8.4 103/ul Normal 4.0-11.0 [facility] Comment on above: Performed By: #### D DIM #### [facility] [address] [place] [address] Dr. Kesha Aguero CULTURE BLOODon 11-24-2022 Microscopic examination of blood, culture Culture Observations: NO GROWTH AT 5 DAYS. Isolate 1 [id number] Normal [facility] Comment on above: Performed By: #### B LDCX2 #### [facility] [address] [place] [address] Dr. Kesha Aguero Microscopic examination of blood, culture Culture Observations: NO GROWTH AT 5 DAYS. Isolate 1 [id number] Normal [facility] Comment on above: Performed By: #### C VDTBH #### [facility] [address] [place] [address] Dr. Kesha Aguero CULTURE URINEon 11-24-2022 CULTURE URINE Culture Observations : LIGHT GROWTH OF MIXED GENITAL SANTY. NO POTENTIAL PATHOGENS SEEN. Normal [facility] Comment on above: Performed By: #### C VDTBH #### [facility] [address] [place] [address] Dr. Kesha SAM URINE PROFILEon 3 Bilirubin Ql (U) Negative Normal NEGATIVE [facility] Comment on above: Performed By: #### D DIM #### [facility] [address] [place] [address] Dr. Kesha Aguero Clarity (U) CLEAR Normal CLEAR [facility] Comment on above: Performed By: #### D DIM #### [facility] [address] [place] [address] Dr. Kesha Aguero Color (U) DK. YELLOW Normal YELLOW [facility] Comment on above: Performed By: #### D DIM #### [facility] [address] [place] [address] Dr. Kesha Aguero ERUAHCurtis A micrscopic examination will be performed if indicated. Normal [facility] Comment on above: Performed By: #### D DIM #### [facility] [address] [place] [address] Dr. Kesha Aguero Glucose Ql (U) >1000 Abnormal NEGATIVE [facility] Comment on above: Performed By: #### D DIM #### [facility] [address] [place] [address] Dr. Kesha Aguero Hemoglobin Ql (U) Negative Normal NEGATIVE The [facility] Comment on above: Performed By: #### D DIM #### [facility] [address] [place] [address] Dr. Kesha Aguero Ketones Ql (U) Negative Normal NEGATIVE [facility] Comment on above: Performed By: #### D DIM #### [facility] [address] [place] [address] Dr. Kesha Aguero LEUKOCYTES Negative Normal NEGATIVE [facility] Comment on above: Performed By: #### D DIM #### [facility] [address] [place] [address] Dr. Kesha Aguero Nitrite Ql (U) Positive Abnormal NEGATIVE [facility] Comment on above: Performed By: #### D DIM #### [facility] [address] [place] [address] Dr. Kesha Aguero pH (U) 6.0 [pH] Normal 5-9 [facility] Comment on above: Performed By: #### D DIM #### [facility] [address] [place] [address] Dr. Kesha Aguero SPEC GRAVITY <=1.005 Abnormal 1.005-<=1.02 5 [facility] Comment on above: Performed By: #### D DIM #### [facility] [address] [place] [address] Dr. Kesha Aguero UA PROTEIN Negative Normal NEGATIVE/ TRACE [facility] Comment on above: Performed By: #### D DIM #### [facility] [address] [place] [address] Dr. Kesha Aguero UR MICRO IND INDICATED Normal [facility] Comment on above: Performed By: #### D DIM #### [facility] [address] [place] [address] Dr. Kesha Aguero Urobilinogen Qn (U) 0.2 {Allison'U}/dL Normal 0.2 - 1. 0 [facility] Comment on above: Performed By: #### D DIM #### [facility] [address] [place] [address] Dr. Kesha Aguero LACTATE/LACTIC ACIDon 2022 Lactate [Moles/Vol] 1.0 mmol/L Normal 0.4-2.0 [facility] Comment on above: Performed By: #### C VDTBH #### [facility] [address] [place] [address] Dr. Kesha Aguero PROF 14(COMP METB)on 023 Albumin [Mass/Vol] 3.8 g/dL Normal 3.4-5.0 [facility] Comment on above: Performed By: #### C VDTBH #### [facility] [address] [place] [address] Dr. Kesha Aguero Albumin/Globulin [Mass ratio] 1.1 {ratio} Normal [facility] Comment on above: Performed By: #### C VDTBH #### [facility] [address] [place] [address] Dr. Kesha Aguero ALP [Catalytic activity/Vol] 118 U/L Critically high 46-116 [facility] Comment on above: Performed By: #### C VDTBH #### [facility] [address] [place] [address] Dr. Kesha Aguero ALT [Catalytic activity/Vol] 41 U/L Normal 14-59 [facility] Comment on above: Performed By: #### C VDTBH #### [facility] [address] [address] [address] Kesha Aguero Anion gap [Moles/Vol] 14.3 mmol/L Normal [facility] Comment on above: Performed By: #### C VDTBH #### [facility] [address] [place] [address] Dr. Kesha Aguero AST [Catalytic activity/Vol] 23 U/L Normal 15-37 [facility] Comment on above: Performed By: #### C VDTBH #### [facility] [address] [place] [address] Dr. Kesha Aguero Bilirubin [Mass/Vol] 0.5 mg/dL Normal 0.2-1.0 [facility] Comment on above: Performed By: #### C VDTBH #### [facility] [address] [place] [address] Dr. Kesha Aguero Calcium [Mass/Vol] 9.3 mg/dL Normal 8.5-10.1 [facility] Comment on above: Performed By: #### C VDTBH #### [facility] [address] [place] [address] Dr. Kesha Aguero Chloride [Moles/Vol] 106 mmol/L Normal 98-107 [facility] Comment on above: Performed By: #### C VDTBH #### [facility] [address] [address] [address] Kesha Aguero CO2 [Moles/Vol] 26.4 mmol/L Normal 21.0-32.0 [facility] Comment on above: Performed By: #### C VDTBH #### [facility] [address] [address] [address] Kesha Aguero Creatinine [Mass/Vol] 0.92 mg/dL Normal 0.55-1.02 [facility] Comment on above: Performed By: #### C VDTBH #### [facility] [address] [address] [address] Kesha Aguero EGFR-AF EGYPTIAN >60 Normal >=60 [facility] Comment on above: Performed By: #### C VDTBH #### [facility] [address] [address] [address] Kesha Aguero EGFR-NON AF EGYPTIAN 58 mL/min/1.73m2 Critically low >=60 [facility] Comment on above: Performed By: #### C VDTBH #### [facility] [address] [address] [address] Kesha Aguero Globulin (S) [Mass/Vol] 3.5 g/dL Normal [facility] Comment on above: Performed By: #### C VDTBH #### [facility] [address] [address] [address] Kesha Aguero Glucose [Mass/Vol] 184 mg/dL Critically high 74-106 [facility] Comment on above: Performed By: #### C VDTBH #### [facility] [address] [address] [address] Kesha Aguero Potassium [Moles/Vol] 4.7 mmol/L Normal 3.5-5.1 [facility] Comment on above: Performed By: #### C VDTBH #### [facility] [address] [address] [address] Kesha Aguero Protein [Mass/Vol] 7.3 g/dL Normal 6.4-8.2 [facility] Comment on above: Performed By: #### C VDTBH #### [facility] [address] [address] [address] Kesha Aguero Sodium [Moles/Vol] 142 mmol/L Normal 136-145 [facility] Comment on above: Performed By: #### C VDTBH #### [facility] [address] [address] [address] Kesha Aguero Urea nitrogen [Mass/Vol] 18.0 mg/dL Normal 7.0-18.0 [facility] Comment on above: Performed By: #### C VDTBH #### [facility] [address] [place] [address] Dr. Kesha Aguero Urea nitrogen/Creatinine [Mass ratio] 19.6 mg/mg Normal [facility] Comment on above: Performed By: #### C VDTBH #### [facility] [address] [place] [address] Dr. Kesha Aguero TROPONIN, HIGH SENSITIVITYon 11-24-2022 HSTROP 9.2 pg/mL Normal 4.0-51.3 [facility] Comment on above: Result Comment: CUT- OFF POINTS HAVE BEEN ESTABLISHED BASED ON THE FOURTH UNIVERSAL DEFINITIONS OF MYOCARDIAL INFARCTION. THE UPPER REFERENCE LIMIT (URL) OF TROPONIN, DEFINED THE 99TH PERCENTILE OF cTnI DISTRIBUTION IN A REFERENCE POPULATION, HAS BEEN CONFIRMED THE DECISION THRESHOLD FOR PA DIAGNOSIS. Performed By: #### A CETON #### [facility] [address] [place] [address] Dr. Kesha Aguero HSTROP 9.5 pg/mL Normal 4.0-51.3 [facility] Comment on above: Result Comment: CUT- OFF POINTS HAVE BEEN ESTABLISHED BASED ON THE FOURTH UNIVERSAL DEFINITIONS OF MYOCARDIAL INFARCTION. THE UPPER REFERENCE LIMIT (URL) OF TROPONIN, DEFINED THE 99TH PERCENTILE OF cTnI DISTRIBUTION IN A REFERENCE POPULATION, HAS BEEN CONFIRMED THE DECISION THRESHOLD FOR PA DIAGNOSIS. Performed By: #### C VDTBH #### [facility] [address] [place] [address] Dr. Kesha Aguero URINE MICROSCOPIC ONLYon BACTERIA TRACE Abnormal NONE SEEN [facility] Comment on above: Performed By: #### C VDTBH #### [facility] [address] [place] [address] Dr. Kesha Aguero Bacteria identified Cx Nom (U) INDICATED Normal [facility] Comment on above: Performed By: #### C VDTBH #### [facility] [address] [place] [address] Dr. Kesha Aguero CAST NONE SEEN Normal NONE SEEN [facility] Comment on above: Performed By: #### C VDTBH #### [facility] [address] [place] [address] Dr. Kesha Aguero Crystals LM Nom (Urine sed) NONE SEEN Normal NONE SEEN [facility] Comment on above: Performed By: #### C VDTBH #### [facility] [address] [place] [address] Dr. Kesha Aguero Epithelial cells LM Ql (Urine sed) FEW Abnormal NONE SEEN /RARE [facility] Comment on above: Performed By: #### C VDTBH #### [facility] [address] [place] [address] Dr. Kesha Aguero MUCOUS NONE SEEN Normal NONE SEEN [facility] Comment on above: Performed By: #### C VDTBH #### [facility] [address] [place] [address] Dr. Kesha Aguero RBC 0-2 Normal 0-2 [facility] Comment on above: Performed By: #### C VDTBH #### [facility] [address] [place] [address] Dr. Kesha Aguero WBC 2-5 Abnormal NONE SEEN The [facility] Comment on above: Performed By: #### C VDTBH #### [facility] [address] [place] [address] Dr. Kesha Aguero XR DEXA BONE DENSITYon [...] by: LOUIS DIEGO Date: 2022-09-29 12:45 Normal [facility] CT HEAD WO CONon 08-29-2022 CT [...] by: EDWIGE ZAVALETA Date: 2022-08-29 14:04 Normal [facility] POINT OF CARE GLUCOSEon 12-3 Glucose [Mass/Vol] 279 mg/dL Critically high 74-106 T he [facility] Comment on above: Performed By: #### C [facility] #### [facility] [address] [address] [address] Kesha Aguero Glucose [Mass/Vol] 65 mg/dL Critically low 74-106 Th e [facility] Comment on above: Performed By: #### C VDTBH #### [facility] [address] [place] [address] Dr. Kesha Aguero BNPon 08-28-2022 Natriuretic peptide B (Bld) [Mass/Vol] 673.0 pg/mL Normal <=1,800.0 [facility] Comment on above: Performed By: #### C VDTBH #### [facility] [address] [place] [address] Dr. Kesha Aguero CARDIAC KARLIE ADMITon 022 CK [Catalytic activity/Vol] 33 U/L Normal 26-192 [facility] Comment on above: Performed By: #### C VDTBH #### [facility] [address] [place] [address] Dr. Kesha Aguero CK.MB [Mass/Vol] 0.58 ng/mL Normal <=3.60 [facility] Comment on above: Performed By: #### C VDTBH #### [facility] [address] [place] [address] Dr. Kesha Aguero HSTROP 11.2 pg/mL Normal 4.0-51.3 [facility] Comment on above: Result Comment: CUT- OFF POINTS HAVE BEEN ESTABLISHED BASED ON THE FOURTH UNIVERSAL DEFINITIONS OF MYOCARDIAL INFARCTION. THE UPPER REFERENCE LIMIT (URL) OF TROPONIN, DEFINED THE 99TH PERCENTILE OF cTnI DISTRIBUTION IN A REFERENCE POPULATION, HAS BEEN CONFIRMED THE DECISION THRESHOLD FOR PA DIAGNOSIS. Performed By: #### C VDTBH #### [facility] [address] [place] [address] Dr. Kesha Aguero ELIAS 48 ng/mL Normal 9-82 [facility] Comment on above: Performed By: #### C VDTBH #### [facility] [address] [place] [address] Dr. Kesha Aguero CBC AUTO DIFFon 08-28-2022 BASO # 0.1 103/ul Normal 0.0-0.1 [facility] Comment on above: Performed By: #### C VDTBH #### [facility] [address] [place] [address] Dr. Kesha Aguero Basophils/100 WBC (Bld) 0.6 % Normal 0.2-2.0 [facility] Comment on above: Performed By: #### C VDTBH #### [facility] [address] [place] [address] Dr. Kesha Aguero EO # 0.2 103/ul Normal 0.0-0.7 [facility] Comment on above: Performed By: #### C VDTBH #### [facility] [address] [place] [address] Dr. Kesha Aguero Eosinophils/100 WBC (Bld) 2.3 % Normal 0.9-7.0 [facility] Comment on above: Performed By: #### C VDTBH #### [facility] [address] [place] [address] Dr. Kesha Aguero Erythrocyte distribution width (RBC) [Ratio] 15.7 % Critically high 11.0-15.0 [facility] Comment on above: Performed By: #### C VDTBH #### [facility] [address] [place] [address] Dr. Kesha Aguero Hematocrit (Bld) [Volume fraction] 44.6 % Normal 36.0-48.0 [facility] Comment on above: Performed By: #### C VDTBH #### [facility] [address] [place] [address] Dr. Kesha Aguero Hemoglobin (Bld) [Mass/Vol] 14.4 g/dL Normal 12.0-16.0 [facility] Comment on above: Performed By: #### C VDTBH #### [facility] [address] [place] [address] Dr. Kesha Aguero IG # 0.02 10e3/ul Normal 0.00-0.03 [facility] Comment on above: Performed By: #### C VDTBH #### [facility] [address] [place] [address] Dr. Kesha Aguero IG % 0.3 % Normal 0.0-0.5 [facility] Comment on above: Performed By: #### C VDTBH #### [facility] [address] [place] [address] Dr. Kesha Aguero LYMPH # 3.5 103/ul Normal 1.2-3.8 [facility] Comment on above: Performed By: #### C VDTBH #### [facility] [address] [place] [address] Dr. Kesha Ageuro Lymphocytes/100 WBC (Bld) 43.6 % Normal 20.5-60.0 [facility] Comment on above: Performed By: #### C VDTBH #### [facility] [address] [place] [address] Dr. Kesha Aguero MANUAL DIFF REQ NO Normal [facility] Comment on above: Performed By: #### C VDTBH #### [facility] [address] [place] [address] Dr. Kesha Aguero MCH (RBC) [Entitic mass] 25.9 pg Critically low 26.7-34.0 [facility] Comment on above: Performed By: #### C VDTBH #### [facility] [address] [place] [address] Dr. Kesha Aguero MCHC (RBC) [Mass/Vol] 32.3 g/dL Normal 29.9-35.2 [facility] Comment on above: Performed By: #### C VDTBH #### [facility] [address] [place] [address] Dr. Kesha Aguero MCV (RBC) [Entitic vol] 80.4 fL Critically low 81.0-99. 0 [facility] Comment on above: Performed By: #### C VDTBH #### [facility] [address] [place] [address] Dr. Kesha Aguero MONO # 0.5 103/ul Normal 0.3-0.8 [facility] Comment on above: Performed By: #### C VDTBH #### [facility] [address] [place] [address] Dr. Kesha Aguero Monocytes/100 WBC (Bld) 6.0 % Normal 1.7-12.0 [facility] Comment on above: Performed By: #### C VDTBH #### [facility] [address] [place] [address] Dr. Kesha Aguero NEUT # 3.8 103/ul Normal 1.4-6.5 [facility] Comment on above: Performed By: #### C VDTBH #### [facility] [address] [place] [address] Dr. Kesha Aguero Neutrophils/100 WBC (Bld) 47.2 % Normal 43.0-75.0 [facility] Comment on above: Performed By: #### C VDTBH #### [facility] [address] [place] [address] Dr. Kesha Aguero Platelet mean volume (Bld) [Entitic vol] 9.7 fL Normal 9.5-13.5 [facility] Comment on above: Performed By: #### C VDTBH #### [facility] [address] [place] [address] Dr. Kesha Aguero PLT 269 103/ul Normal 150-450 [facility] Comment on above: Performed By: #### C VDTBH #### [facility] [address] [place] [address] Dr. Kesha Aguero RBC 5.55 106/ul Critically high 4.20-5.40 [facility] Comment on above: Performed By: #### C VDTBH #### [facility] [address] [place] [address] Dr. Kesha Aguero WBC 8.0 103/ul Normal 4.0-11.0 [facility] Comment on above: Performed By: #### C VDTBH #### [facility] [address] [place] [address] Dr. Kesha Aguero [facility] SARS-CoV-2 (COVID-19) RNA YARA+probe Ql (Unsp spec) Not detected Normal NOT DETECTED [facility] Comment on above: [...] for this test is supported by the [place] of Health and Human Service's declaration that [...] used). Performed By: #### C VDTBH #### [facility] [address] [place] [address] Dr. Kesha Aguero POINT OF CARE GLUCOSEon 08-01 Glucose [Mass/Vol] 157 mg/dL Critically high 74-106 [facility] Comment on above: Performed By: #### D DIM #### [facility] [address] [place] [address] Dr. Kesha Aguero Glucose [Mass/Vol] 170 mg/dL Critically high -106 [facility] Comment on above: Performed By: #### C VDTBH #### [facility] [address] [place] [address] Dr. Kesha Aguero PROF CHEM 8 (BAS METB)on Anion gap [Moles/Vol] 14.2 mmol/L Normal [facility] Comment on above: Performed By: #### C VDTBH #### [facility] [address] [place] [address] Dr. Kesha Aguero Calcium [Mass/Vol] 9.8 mg/dL Normal 8.5-10.1 [facility] Comment on above: Performed By: #### C VDTBH #### [facility] [address] [place] [address] Dr. Kesha Aguero Chloride [Moles/Vol] 104 mmol/L Normal 98-107 [facility] Comment on above: Performed By: #### C VDTBH #### [facility] [address] [address] [address] Kesha Aguero CO2 [Moles/Vol] 25.6 mmol/L Normal 21.0-32.0 [facility] Comment on above: Performed By: #### C VDTBH #### [facility] [address] [address] [address] Kesha Aguero Creatinine [Mass/Vol] 1.00 mg/dL Normal 0.55-1.02 [facility] Comment on above: Performed By: #### C VDTBH #### [facility] [address] [address] [address] Kesha Aguero EGFR-AF EGYPTIAN >60 Normal >=60 [facility] Comment on above: Performed By: #### C VDTBH #### [facility] [facility] [address] [address] [address] Kesha Aguero EGFR-NON AF EGYPTIAN 53 mL/min/1.73m2 Critically low >=60 [facility] Comment on above: Performed By: #### C VDTBH #### [facility] [address] [address] [address] Kesha Aguero Glucose [Mass/Vol] 151 mg/dL Critically high 74-106 [facility] Comment on above: Performed By: #### C VDTBH #### [facility] [address] [address] [address] Kesha Aguero Potassium [Moles/Vol] 3.8 mmol/L Normal 3.5-5.1 [facility] Comment on above: Performed By: #### C VDTBH #### [facility] [address] [address] [address] Kesha Aguero Sodium [Moles/Vol] 140 mmol/L Normal 136-145 [facility] [place] Comment on above: Performed By: #### C VDTBH #### [facility] [address] [address] [address] Kesha Aguero Urea nitrogen [Mass/Vol] 19.0 mg/dL Critically high 7.0-18.0 [facility] Comment on above: Performed By: #### C VDTBH #### [facility] [address] [place] [address] Dr. Kesha Aguero Urea nitrogen/Creatinine [Mass ratio] 19.0 mg/mg Normal [facility] Comment on above: Performed By: #### C VDTBH #### [facility] [address] [place] [address] Dr. Kesha Aguero PROTIMEon 08-28-2022 INR Coag (PPP) [Relative time] 0.97 {INR} Normal [facility] Comment on above: Performed By: #### C VDTBH #### [facility] [address] [place] [address] Dr. Kesha Aguero INR GUIDELINES SEE BELOW Normal [facility] Comment on above: Result Comment: GUY RED INR: 2.0 - 3.0 CONDITIONS NOT LISTED BELOW 2.5 - 3.5 FOR PROSTHETIC HEART VALVE REPLACEMENT 2.5 - 3.5 RECURRENT THROMBOSIS Performed By: #### C VDTBH #### [facility] [address] [place] [address] Dr. Kesha Aguero PT Coag (PPP) [Time] 10.5 s Normal 9.0-11.6 [facility] Comment on above: Performed By: #### C VDTBH #### [facility] [address] [place] [address] Dr. Kesha Aguero PTTon 08-28-2022 aPTT Coag (Bld) [Time] 27.1 s Normal 22.3-36.2 [facility] Comment on above: Performed By: #### C VDTBH #### [facility] [address] [place] [address] Dr. Kesha Aguero TROPONIN, HIGH SENSITIVITYon 08-28-2022 HSTROP 14.8 pg/mL Normal 4.0-51.3 [facility] Comment on above: Result Comment: CUT- OFF POINTS HAVE BEEN ESTABLISHED BASED ON THE FOURTH UNIVERSAL DEFINITIONS OF MYOCARDIAL INFARCTION. THE UPPER REFERENCE LIMIT (URL) OF TROPONIN, DEFINED THE 99TH PERCENTILE OF cTnI DISTRIBUTION IN A REFERENCE POPULATION, HAS BEEN CONFIRMED THE DECISION THRESHOLD FOR PA DIAGNOSIS. Performed By: #### C VDTBH #### [facility] [address], [place] [address] Dr. Kesha Aguero HSTROP 13.5 pg/mL Normal 4.0-51.3 [facility] Comment on above: Result Comment: CUT- OFF POINTS HAVE BEEN ESTABLISHED BASED ON THE FOURTH UNIVERSAL DEFINITIONS OF MYOCARDIAL INFARCTION. THE UPPER REFERENCE LIMIT (URL) OF TROPONIN, DEFINED THE 99TH PERCENTILE OF cTnI DISTRIBUTION IN A REFERENCE POPULATION, HAS BEEN CONFIRMED THE DECISION THRESHOLD FOR PA DIAGNOSIS. Performed By: #### D DIM #### [facility] [address], [place] [address] Dr. Kesha Aguero US JCARLOS DOP LEG [...] by: CARMEN LOTT Date: 2022-08-28 13:22 Normal [facility] XR CHEST 1 Von 08-28-2022 XR CHEST 1 V EXAM: CHEST 1 VIEW HISTORY: CHEST PAIN, UNSPECIFIED TECHNIQUE: Chest, one view. COMPARISON: 06/06/2022. FINDINGS: Lungs are clear. No focal consolidation, pleural effusion, or pneumothorax. Pulmonary vasculature is within normal limits. Cardiomediastinal silhouette is normal. IMPRESSION: 1. No acute cardiopulmonary disease. Electronically authenticated by: JEAN-CLAUDE OLEARY Date: 2022-08-28 08:34 Normal [facility] CT ABDOMEN WO/W CONon 2021 CT [...] LOUIS DIEGO Date: 2022-08-18 22:44 Normal [facility] CREATININEon 08-18-2022 Creatinine [Mass/Vol] 1.04 mg/dL Critically high 0.55-1.02 [facility] Comment on above: Performed By: #### C VDTB #### [facility] [address] [address] [address] Kesha Aguero EGFR-AF EGYPTIAN >60 Normal >=60 [facility] Comment on above: Performed By: #### C VDTBH #### [facility] [address] [address] [address] Kesha Aguero EGFR-NON AF EGYPTIAN 51 mL/min/1.73m2 Critically low >=60 [facility] Comment on above: Performed By: #### C VDTBH #### [facility] [address] [address] [address] Kesha Aguero ECHOCARDIO M/2D COMPLETEon 1 10-19-2021 ECHOCARDIO M/2D COMPLETE Patient: TERE HARTMANN Exam Date: 08/18/2022 : 1940 Gender:F Ordering : ABBIE CRISOSTOMO Admission #: [id number] Family : DR RODRICK BUTLER M.D. Order #: [id number] CLICK HERE TO VIEW EXAM ECHOCARDIOGRAM REPORT [...] Jackson M.D. on 08/21/2022 at 15:17 Normal [facility] ALDOSTERONE: RENIN RATIOon 1 Aldos/Renin Ratio 2.5 Normal 0.0-30.0 [facility] Comment on above: Result Comment: Unit s: ng/dL per ng/mL/hr Performed By: #### A LDOREN #### [facility] [address] [address] [address] Kesha Aguero Aldosterone 7.4 ng/dL Normal 0.0-30.0 [facility] Comment on above: Performed By: #### A LDOREN #### [facility] [address] [place] [address] Dr. Kesha Aguero Renin Activity, Plasma 3.015 ng/mL/hr Normal 0.167-5.3 80 [facility] Comment on above: Performed By: #### A LDOREN #### [facility] [address] [place] [address] Dr. Kesha Aguero METANEPHRINES PLASMA FREEon 06-18-2022 Metanephrine, Pl 11.8 pg/mL Normal 0.0-88.0 [facility] Comment on above: Performed By: #### A CETON #### [facility] [address] [place] [address] Dr. Kesha Aguero Normetanephrine, Pl 103.3 pg/mL Normal 0.0-297.2 [facility] Comment on above: Performed By: #### A CETON #### [facility] [address] [place] [address] Dr. Kesha Aguero CORTISOLon 06-12-2022 Cortisol 5.5 ug/dL Normal [facility] Comment on above: Result Comment: Clement isol AM 6.2 - 19.4 Cortisol PM 2.3 - 11.9 Performed By: #### C VDTBH #### [facility] [address] [place] [address] Dr. Kesha Aguero PROF CHEM 8 (BAS METB)on Anion gap [Moles/Vol] 14.4 mmol/L Normal [facility] Comment on above: Performed By: #### A LDOREN #### [facility] [address] [place] [address] Dr. Kesha Aguero Calcium [Mass/Vol] 9.6 mg/dL Normal 8.5-10.1 [facility] [place] Comment on above: Performed By: #### A LDOREN #### [facility] [address] [place] [address] Dr. Kesha Aguero Chloride [Moles/Vol] 103 mmol/L Normal 98-107 [facility] Comment on above: Performed By: #### A LDOREN #### [facility] [address] [place] [address] Dr. Kesha Aguero CO2 [Moles/Vol] 24.3 mmol/L Normal 21.0-32.0 [facility] Comment on above: Performed By: #### A LDOREN #### [facility] [address] [address] [address] Kesha Aguero Creatinine [Mass/Vol] 1.24 mg/dL Critically high 0.55-1.02 [facility] Comment on above: Performed By: #### A LDOREN #### [facility] [address] [address] [address] Kesha Aguero EGFR-AF EGYPTIAN 50 mL/min/1.73m2 Critically low >=60 [facility] Comment on above: Performed By: #### A LDOREN #### [facility] [address] [address] [address] Kesha Aguero EGFR-NON AF EGYPTIAN 41 mL/min/1.73m2 Critically low >=60 [facility] Comment on above: Performed By: #### A LDOREN #### [facility] [address] [place] [address] Dr. Kesha Aguero Glucose [Mass/Vol] 215 mg/dL Critically high 74-106 [facility] Comment on above: Performed By: #### A LDOREN #### [facility] [address] [place] [address] Dr. Kesha Aguero Potassium [Moles/Vol] 4.7 mmol/L Normal 3.5-5.1 [facility] Comment on above: Performed By: #### A LDOREN #### [facility] [address] [place] [address] Dr. Kesha Aguero Sodium [Moles/Vol] 137 mmol/L Normal 136-145 [facility] [place] Comment on above: Performed By: #### A LDOREN #### [facility] [address] [address] [address] Kesha Aguero Urea nitrogen [Mass/Vol] 21.0 mg/dL Critically high 7.0-18.0 [facility] Comment on above: Performed By: #### A LDOREN #### [facility] [address] [place] [address] Dr. Kesha Aguero Urea nitrogen/Creatinine [Mass ratio] 16.9 mg/mg Normal [facility] Comment on above: Performed By: #### A LDOREN #### [facility] [address] [place] [address] Dr. Kesha Aguero CARDIAC KARLIE 3-6on 2 CK [Catalytic activity/Vol] 77 U/L Normal 26-192 [facility] Comment on above: Performed By: #### D DIM #### [facility] [address] [place] [address] Dr. Kesha Aguero CK.MB [Mass/Vol] 1.64 ng/mL Normal <=3.60 [facility] Comment on above: Performed By: #### D DIM #### [facility] [address] [place] [address] Dr. Kesha Aguero HSTROP 16.0 pg/mL Normal 4.0-51.3 [facility] Comment on above: Result Comment: CUT- OFF POINTS HAVE BEEN ESTABLISHED BASED ON THE FOURTH UNIVERSAL DEFINITIONS OF MYOCARDIAL INFARCTION. THE UPPER REFERENCE LIMIT (URL) OF TROPONIN, DEFINED THE 99TH PERCENTILE OF cTnI DISTRIBUTION IN A REFERENCE POPULATION, HAS BEEN CONFIRMED THE DECISION THRESHOLD FOR PA DIAGNOSIS. Performed By: #### D DIM #### [facility] [address] [place] [address] Dr. Kesha Aguero CARDIAC KARLIE ADMITon 022 CK [Catalytic activity/Vol] 86 U/L Normal 26-192 [facility] Comment on above: Performed By: #### A CETON #### [facility] [address] [place] [address] Dr. Kesha Aguero CK.MB [Mass/Vol] 2.10 ng/mL Normal <=3.60 [facility] Comment on above: Performed By: #### A CETON #### [facility] [address] [place] [address] Dr. Kesha Aguero HSTROP 13.3 pg/mL Normal 4.0-51.3 [facility] Comment on above: Result Comment: CUT- OFF POINTS HAVE BEEN ESTABLISHED BASED ON THE FOURTH UNIVERSAL DEFINITIONS OF MYOCARDIAL INFARCTION. THE UPPER REFERENCE LIMIT (URL) OF TROPONIN, DEFINED THE 99TH PERCENTILE OF cTnI DISTRIBUTION IN A REFERENCE POPULATION, HAS BEEN CONFIRMED THE DECISION THRESHOLD FOR PA DIAGNOSIS. Performed By: #### A CETON #### [facility] [address] [place] [address] Dr. Kesha Aguero ELIAS 78 ng/mL Normal 9-82 [facility] Comment on above: Performed By: #### A CETON #### [facility] [address] [place] [address] Dr. Kesha Aguero CBC AUTO DIFFon 06-06-2022 BASO # 0.0 103/ul Normal 0.0-0.1 [facility] Comment on above: Performed By: #### C VDTBH #### [facility] [address] [place] [address] Dr. Kesha Aguero Basophils/100 WBC (Bld) 0.4 % Normal 0.2-2.0 [facility] Comment on above: Performed By: #### C VDTBH #### [facility] [address] [place] [address] Dr. Kesha Aguero EO # 0.1 103/ul Normal 0.0-0.7 [facility] Comment on above: Performed By: #### C VDTBH #### [facility] [address] [place] [address] Dr. Kesha Aguero Eosinophils/100 WBC (Bld) 1.8 % Normal 0.9-7.0 [facility] Comment on above: Performed By: #### C VDTBH #### [facility] [address] [place] [address] Dr. Kesha Aguero Erythrocyte distribution width (RBC) [Ratio] 13.9 % Normal 11.0-15.0 [facility] Comment on above: Performed By: #### C VDTBH #### [facility] [address] [place] [address] Dr. Kesha Aguero Hematocrit (Bld) [Volume fraction] 40.7 % Normal 36.0-48.0 [facility] Comment on above: Performed By: #### C VDTBH #### [facility] [address] [place] [address] Dr. Kesha Aguero Hemoglobin (Bld) [Mass/Vol] 12.9 g/dL Normal 12.0-16.0 [facility] Comment on above: Performed By: #### C VDTBH #### [facility] [address] [place] [address] Dr. Kesha Aguero IG # 0.01 10e3/ul Normal 0.00-0.03 [facility] Comment on above: Performed By: #### C VDTBH #### [facility] [address] [place] [address] Dr. Kesha Aguero IG % 0.1 % Normal 0.0-0.5 [facility] Comment on above: Performed By: #### C VDTBH #### [facility] [address] [place] [address] Dr. Kesha Aguero LYMPH # 2.6 103/ul Normal 1.2-3.8 [facility] Comment on above: Performed By: #### C VDTBH #### [facility] [address] [place] [address] Dr. Kesha Aguero Lymphocytes/100 WBC (Bld) 33.6 % Normal 20.5-60.0 [facility] Comment on above: Performed By: #### C VDTBH #### [facility] [address] [place] [address] Dr. Kesha Aguero MANUAL DIFF REQ NO Normal [facility] Comment on above: Performed By: #### C VDTBH #### [facility] [address] [place] [address] Dr. Kesha Aguero MCH (RBC) [Entitic mass] 26.5 pg Critically low 26.7-34.0 [facility] Comment on above: Performed By: #### C VDTBH #### [facility] [address] [place] [address] Dr. Kesha Aguero MCHC (RBC) [Mass/Vol] 31.7 g/dL Normal 29.9-35.2 [facility] Comment on above: Performed By: #### C VDTBH #### [facility] [address] [place] [address] Dr. Kesha Aguero MCV (RBC) [Entitic vol] 83.6 fL Normal 81.0-99.0 [facility] Comment on above: Performed By: #### C VDTBH #### [facility] [address] [place] [address] Dr. Kesha Aguero MONO # 0.6 103/ul Normal 0.3-0.8 [facility] Comment on above: Performed By: #### C VDTBH #### [facility] [address] [place] [address] Dr. Kesha Aguero Monocytes/100 WBC (Bld) 7.7 % Normal 1.7-12.0 [facility] Comment on above: Performed By: #### C VDTBH #### [facility] [address] [place] [address] Dr. Kesha Aguero NEUT # 4.3 103/ul Normal 1.4-6.5 [facility] Comment on above: Performed By: #### C VDTBH #### [facility] [address] [place] [address] Dr. Kesha Aguero Neutrophils/100 WBC (Bld) 56.4 % Normal 43.0-75.0 [facility] Comment on above: Performed By: #### C VDTBH #### [facility] [address] [place] [address] Dr. Kesha Aguero Platelet mean volume (Bld) [Entitic vol] 11.2 fL Normal 9.5-13.5 [facility] Comment on above: Performed By: #### C VDTBH #### [facility] [address] [place] [address] Dr. Kesha Aguero PLT 267 103/ul Normal 150-450 [facility] Comment on above: Performed By: #### C VDTBH #### [facility] [address] [place] [address] Dr. Kesha Aguero RBC 4.87 106/ul Normal 4.20-5.40 [facility] Comment on above: Performed By: #### C VDTBH #### [facility] [address] [place] [address] Dr. Kesha Aguero WBC 7.7 103/ul Normal 4.0-11.0 [facility] Comment on above: Performed By: #### C [facility] #### [facility] [address], [place] [address] Dr. Kesha Aguero CTA CHEST WO W [...] CHRISTINA MESSINA Date: 2022-06-06 03:54 Normal [facility] Covid-19 PCR (CVDTBH)on SARS-CoV-2 (COVID-19) RNA YARA+probe Ql (Unsp spec) Not detected Normal NOT DETECTED [facility] Comment on above: [...] for this test is supported by the [place] of Health and Human Service's declaration that [...] used). Performed By: #### C VDTBH #### [facility] [address] [place] [address] Dr. Kesha Aguero D-DIMERon 06-06-2022 D-DIMER 0.86 mg/L FEU Critically high <=0.59 [facility] Comment on above: Performed By: #### D DIM #### [facility] [address] [place] [address] Dr. Kesha Aguero D-DIMER COMMENTS SEE BELOW Normal [facility] Comment on above: Result Comment: Incr eases [...] hospitalization. Performed By: #### D DIM #### [facility] [address] [place] [address] Dr. Kesha Aguero PROF CHEM 8 (BAS METB)on Anion gap [Moles/Vol] 13.1 mmol/L Normal [facility] Comment on above: Performed By: #### A CETON #### [facility] [address] [address] [address] Kesha Aguero Calcium [Mass/Vol] 10.0 mg/dL Normal 8.5-10.1 [facility] [place] Comment on above: Performed By: #### A CETON #### [facility] [address] [address] [address] Kesha Aguero Chloride [Moles/Vol] 106 mmol/L Normal 98-107 [facility] Comment on above: Performed By: #### A CETON #### [facility] [address] [place] [address] Dr. Kesha Aguero CO2 [Moles/Vol] 24.9 mmol/L Normal 21.0-32.0 [facility] Comment on above: Performed By: #### A CETON #### [facility] [address] [address] [address] Kesha Aguero Creatinine [Mass/Vol] 1.14 mg/dL Critically high 0.55-1.02 [facility] Comment on above: Performed By: #### A CETON #### [facility] [address] [address] [address] Kesha Aguero EGFR-AF EGYPTIAN 55 mL/min/1.73m2 Critically low >=60 [facility] Comment on above: Performed By: #### A CETON #### [facility] [address] [address] [address] Kesha Aguero EGFR-NON AF EGYPTIAN 46 mL/min/1.73m2 Critically low >=60 [facility] Comment on above: Performed By: #### A CETON #### [facility] [address] [address] [address] Kesha Aguero Glucose [Mass/Vol] 181 mg/dL Critically high 74-106 [facility] Comment on above: Performed By: #### A CETON #### [facility] [address] [address] [address] Kesha Aguero Potassium [Moles/Vol] 4.0 mmol/L Normal 3.5-5.1 [facility] Comment on above: Performed By: #### A CETON #### [facility] [address] [address] [address] Kesha Aguero Sodium [Moles/Vol] 140 mmol/L Normal 136-145 [facility] Comment on above: Performed By: #### A CETON #### [facility] [address] [address] [address] Kesha Aguero Urea nitrogen [Mass/Vol] 24.0 mg/dL Critically high 7.0-18.0 [facility] Comment on above: Performed By: #### A CETON #### [facility] [address] [address] [address] Kesha Aguero Urea nitrogen/Creatinine [Mass ratio] 21.1 mg/mg Normal [facility] Comment on above: Performed By: #### A CETON #### [facility] [address] [address] [address] Kesha Aguero TROPONIN, HIGH SENSITIVITYon 06-06-2022 HSTROP 16.7 pg/mL Normal 4.0-51.3 [facility] Comment on above: Result Comment: CUT- OFF POINTS HAVE BEEN ESTABLISHED BASED ON THE FOURTH UNIVERSAL DEFINITIONS OF MYOCARDIAL INFARCTION. THE UPPER REFERENCE LIMIT (URL) OF TROPONIN, DEFINED THE 99TH PERCENTILE OF cTnI DISTRIBUTION IN A REFERENCE POPULATION, HAS BEEN CONFIRMED THE DECISION THRESHOLD FOR PA DIAGNOSIS. Performed By: #### A LDOREN #### [facility] [address] [address] [address] Kesha Aguero XR CHEST 1 Von [...] CHRISTINA MESSINA Date: 2022-06-06 02:23 Normal [facility] Activated partial thrombopla stin time (aPTT) in platelet poor plasma by coagulation aOrdered By: Herminia Lawler on 05-11-2022 aPTT Coag (PPP) [Time] 43.7 s 25.1-36.5 [facility] Creatinine and Glomerular fi ltration rate.predicted panel (S/P/Bld)Ordered By: Herminia Lawler on 05-11-2022 Creatinine [Mass/Vol] 0.97 mg/dL 0.44-1.03 [facility] Estimated glomerular filtrat ion rate (GFR) non- AmericanOrdered By: Herminia Lawler on 05-11-2022 GFR/1.73 sq M.predicted among non-blacks MDRD (S/P/Bld) [Vol rate/Area] 55 mL/Min [facility] Glucose Glucometer (BldC) [M ass/Vol]Ordered By: Herminia Lawler on 05-11-2022 Glucose [Mass/Vol] 281 mg/dL [facility] Comment on above: Random Glucose Refer ence Range is dependent on time and content of last meal. Glucose of more than 200 mg/dL in a nonstressed, ambulatory subject supports the diagnosis of Diabetes Mellitus. Laboratory - Chemistry and C hemistry - challengeOrdered By: Herminia Lawler on 05-11-2022 Magnesium [Mass/Vol] 1.7 mg/dL 1.6-2.6 [facility] No Panel InformationOrdered By: Herminia Lawler on 05-11-2022 Estimated GFR () > 60 mL/Min [facility] Comment on above: GFR estimated refere nce range: According to KDOQI guidelines, <60 ml/min/1.73m2 is sufficient to diagnose a patient with chronic kidney disease. Pharmacy Creatinine Clearance (Chem 42.73 [facility] Serum or plasma anion gap de terminationOrdered By: Herminia Lawler on 05-11-2022 Anion gap [Moles/Vol] 13.6 mmol/L 6.0-15.0 [facility] Serum or plasma calcium kristi urement (mass/volume)Ordered By: Herminia Lawler on 05-11-2022 Calcium [Mass/Vol] 9.8 mg/dL 8.2-10.2 [facility] Serum or plasma chloride dorys surement (moles/volume)Ordered By: Herminia Lawler on 05-11-2022 Chloride [Moles/Vol] 107 mmol/L 95-114 [facility] Serum or plasma glucose kristi urement (mass/volume)Ordered By: Herminia Lawler on 05-11-2022 Glucose [Mass/Vol] 187 mg/dL 70-100 [facility] Comment on above: ADA recommended refe rence range Random Glucose Reference Range is dependent on time and content of last meal. Glucose of more than 200 mg/dL in a nonstressed, ambulatory subject supports the diagnosis of Diabetes Mellitus. Serum or plasma potassium me asurement (moles/volume)Ordered By: Herminia Lawler on 05-11-2022 Potassium [Moles/Vol] 3.8 mmol/L 3.5-5.1 [facility] Serum or plasma sodium measu rement (moles/volume)Ordered By: Herminia Lawler on 05-11-2022 Sodium [Moles/Vol] 137 mmol/L 136-146 [facility] Serum or plasma total carbon dioxide measurement (moles/volume)Ordered By: Herminia Lawler on 05-11-2022 CO2 [Moles/Vol] 20.2 mmol/L 22.0-30.0 [facility] Serum or plasma urea nitroge n measurement (mass/volume)Ordered By: Herminia Lawler on 05-11-2022 Urea nitrogen [Mass/Vol] 21 mg/dL 9- [facility] Troponin I.cardiac [Mass/vol ume] in Serum or Plasma by High sensitivity methodOrdered By: Itz Townsend on 05-11-2022 Troponin I.cardiac High sensitivity method [Mass/Vol] 97 pg/mL 0-15 [facility] Comment on above: Results called at 0602 on 05/11/22 Albumin [Mass/volume] in Ser um or PlasmaOrdered By: Obaydah Daromar on 05-10-2022 Albumin [Mass/Vol] 2.9 g/dL 3.2-5.5 [facility] Basophils Auto (Bld) [#/Vol] Ordered By: Obaydah Daromar on 05-10-2022 Basophils (Bld) [#/Vol] 0.2 10*3/uL 0.0-0.2 [facility] Basophils/100 WBC Auto (Bld) Ordered By: Obaydah Daromar on 05-10-2022 Basophils/100 WBC (Bld) 2.8 % . [facility] Blood hemoglobin measurement (mass/volume)Ordered By: Obdarindaethan Perezomar on 05-10-2022 Hemoglobin (Bld) [Mass/Vol] 12.4 g/dL 11.8-15.4 [facility] Blood leukocytes automated c ount (number/volume)Ordered By: Obdarindaethan Perezomar on 05-10-2022 WBC (Bld) [#/Vol] 7.0 10*3/uL 4.5-11.0 [facility] Creatine kinase [Enzymatic a ctivity/volume] in Serum or PlasmaOrdered By: Darrion Gilbert on 05-10-2022 CK [Catalytic activity/Vol] 48 U/L 22-269 [facility] Eosinophils Auto (Bld) [#/Vo l]Ordered By: Obdarindaethan Perezomar on 05-10-2022 Eosinophils (Bld) [#/Vol] 0.2 10*3/uL 0.0-0.45 [facility] Eosinophils/100 WBC Auto (Bl d)Ordered By: Obdarindah Daromar on 05-10-2022 Eosinophils/100 WBC (Bld) 2.7 % . [facility] Erythrocyte distribution wid th Auto (RBC) [Ratio]Ordered By: Obdarindah Daromar on 05-10-2022 Erythrocyte distribution width (RBC) [Ratio] 15.2 % 11.9-15.3 [facility] Globulin Calc (S) [Mass/Vol] Ordered By: Obdarindah Daromar on 05-10-2022 Globulin (S) [Mass/Vol] 2.9 g/dL [facility] Hematocrit Auto (Bld) [Volum e fraction]Ordered By: Obaydah Daromar on 05-10-2022 Hematocrit (Bld) [Volume fraction] 37.8 % 34.0-46.4 [facility] Laboratory - Hematology and Cell countsOrdered By: Obaydah Daromar on 05-10-2022 Nucleated RBC/100 WBC (Bld) [Ratio] 0.3 % 0-0.5 [facility] Lymphocytes Auto (Bld) [#/Vo l]Ordered By: Obaydah Daromar on 05-10-2022 Lymphocytes (Bld) [#/Vol] 3.0 10*3/uL 1.00-4.8 [facility] Lymphocytes/100 WBC Auto (Bl d)Ordered By: Obaydah Daromar on 05-10-2022 Lymphocytes/100 WBC (Bld) 42.4 % . [facility] MCH Auto (RBC) [Entitic mass ]Ordered By: Obaydah Daromar on 05-10-2022 MCH (RBC) [Entitic mass] 26.4 pg 24.7-34.3 [facility] MCHC Auto (RBC) [Mass/Vol]Or dered By: Obaydah Daromar on 05-10-2022 MCHC (RBC) [Mass/Vol] 32.8 g/dL 32.0-35.0 [facility] MCV Auto (RBC) [Entitic vol] Ordered By: Obaydah Daromar on 05-10-2022 MCV (RBC) [Entitic vol] 80.5 fL 80-100 [facility] Monocytes Auto (Bld) [#/Vol] Ordered By: Obaydah Daromar on 05-10-2022 Monocytes (Bld) [#/Vol] 0.4 10*3/uL 0.0-0.8 [facility] Monocytes/100 WBC Auto (Bld) Ordered By: Obaydah Daromar on 05-10-2022 Monocytes/100 WBC (Bld) 6.4 % . [facility] Neutrophils Auto (Bld) [#/Vo l]Ordered By: Herminia Tysonr on 05-10-2022 Neutrophils (Bld) [#/Vol] 3.2 10*3/uL 1.8-7.7 [facility] Neutrophils/100 WBC Auto (Bl d)Ordered By: Herminia Perezomar on 05-10-2022 Neutrophils/100 WBC (Bld) 45.7 % . [facility] No Panel InformationOrdered By: Herminia Lawler on 05-10-2022 Bedside Glucose Comment Glu2: cleaned meter [facility] Platelet mean volume Auto (B ld) [Entitic vol]Ordered By: Herminia Tysonr on 05-10-2022 Platelet mean volume (Bld) [Entitic vol] 8.3 fL 6.3-10.7 [facility] Platelets Auto (Bld) [#/Vol] Ordered By: Herminia Lawler on 05-10-2022 Platelets (Bld) [#/Vol] 236 10*3/uL 150-450 [facility] Protein [Mass/volume] in Ser um or PlasmaOrdered By: Herminia Lawler on 05-10-2022 Protein [Mass/Vol] 5.8 g/dL 6.1-7.9 [facility] RBC Auto (Bld) [#/Vol]Ordere d By: Herminia Tysonr on 05-10-2022 RBC (Bld) [#/Vol] 4.70 10*6/uL 3.60-5.00 [facility] Serum or plasma alanine landa otransferase measurement without P-5'-P (enzymatic activiOrdered By: Herminia Lawler on 05-10-2022 ALT No additional P-5'-P [Catalytic activity/Vol] 18 U/L 10-60 [facility] Serum or plasma albumin/glob ulin mass ratioOrdered By: Herminia Lawler on 05-10-2022 Albumin/Globulin [Mass ratio] 1.0 {ratio} [facility] Serum or plasma alkaline jama sphatase measurement (enzymatic activity/volume)Ordered By: Herminia Lawler on 05-10-2022 ALP [Catalytic activity/Vol] 75 U/L 32-92 [facility] Serum or plasma aspartate am inotransferase measurement (enzymatic activity/volume)Ordered By: Herminia Lawler on 05-10-2022 AST [Catalytic activity/Vol] 18 U/L 10-42 [facility] Serum or plasma creatine kin ase MB (CKMB)/total creatine kinase (CK) ratio by calculaOrdered By: Darrion Gilbert on 05-10-2022 CK.MB Calc [Catalytic fraction] 6.8 % 0.00-2.50 [facility] Serum or plasma creatine kin ase MB measurement (mass/volume)Ordered By: Darrion Gilbert on 05-10-2022 CK.MB [Mass/Vol] 3.3 ng/mL 0.6-6.3 [facility] Serum or plasma total biliru bin measurement (mass/volume)Ordered By: Herminia Lawler on 05-10-2022 Bilirubin [Mass/Vol] 0.4 mg/dL 0.3-1.2 [facility] ACETONE SERUMon 05-09-2022 ACETONE Negative Normal NEGATIVE [facility] Comment on above: Performed By: #### A CETON #### [facility] [address] [place] [address] Dr. Kesha Aguero CBC AUTO DIFFon 05-09-2022 BASO # 0.0 103/ul Normal 0.0-0.1 [facility] Comment on above: Performed By: #### A CETON #### [facility] [address] [place] [address] Dr. Kesha Aguero Basophils/100 WBC (Bld) 0.5 % Normal 0.2-2.0 [facility] Comment on above: Performed By: #### A CETON #### [facility] [address] [place] [address] Dr. Kesha Aguero EO # 0.1 103/ul Normal 0.0-0.7 [facility] Comment on above: Performed By: #### A CETON #### [facility] [address] [place] [address] Dr. Kesha Aguero Eosinophils/100 WBC (Bld) 1.5 % Normal 0.9-7.0 [facility] Comment on above: Performed By: #### A CETON #### [facility] [address] [place] [address] Dr. Kesha Aguero Erythrocyte distribution width (RBC) [Ratio] 14.1 % Normal 11.0-15.0 [facility] Comment on above: Performed By: #### A CETON #### [facility] [address] [place] [address] Dr. Kesha Aguero Hematocrit (Bld) [Volume fraction] 40.7 % Normal 36.0-48.0 [facility] Comment on above: Performed By: #### A CETON #### [facility] [address] [place] [address] Dr. Kesha Aguero Hemoglobin (Bld) [Mass/Vol] 13.0 g/dL Normal 12.0-16.0 [facility] Comment on above: Performed By: #### A CETON #### [facility] [address] [place] [address] Dr. Kesha Aguero IG # 0.01 10e3/ul Normal 0.00-0.03 [facility] Comment on above: Performed By: #### A CETON #### [facility] [address] [place] [address] Dr. Kesha Aguero IG % 0.1 % Normal 0.0-0.5 [facility] Comment on above: Performed By: #### A CETON #### [facility] [address] [place] [address] Dr. Kesha Aguero LYMPH # 2.6 103/ul Normal 1.2-3.8 [facility] Comment on above: Performed By: #### A CETON #### [facility] [address] [place] [address] Dr. Kesha Aguero Lymphocytes/100 WBC (Bld) 33.0 % Normal 20.5-60.0 [facility] Comment on above: Performed By: #### A CETON #### [facility] [address] [place] [address] Dr. Kesha Aguero MANUAL DIFF REQ NO Normal [facility] Comment on above: Performed By: #### A CETON #### [facility] [address] [place] [address] Dr. Kesha Aguero MCH (RBC) [Entitic mass] 26.5 pg Critically low 26.7-34.0 [facility] Comment on above: Performed By: #### A CETON #### [facility] [address] [place] [address] Dr. Kesha Aguero MCHC (RBC) [Mass/Vol] 31.9 g/dL Normal 29.9-35.2 [facility] Comment on above: Performed By: #### A CETON #### [facility] [address] [place] [address] Dr. Kesha Aguero MCV (RBC) [Entitic vol] 82.9 fL Normal 81.0-99.0 [facility] Comment on above: Performed By: #### A CETON #### [facility] [address] [place] [address] Dr. Kesha Aguero MONO # 0.6 103/ul Normal 0.3-0.8 [facility] Comment on above: Performed By: #### A CETON #### [facility] [address] [place] [address] Dr. Kesha Aguero Monocytes/100 WBC (Bld) 7.1 % Normal 1.7-12.0 [facility] Comment on above: Performed By: #### A CETON #### [facility] [address] [place] [address] Dr. Kesha Aguero NEUT # 4.5 103/ul Normal 1.4-6.5 [facility] Comment on above: Performed By: #### A CETON #### [facility] [address] [place] [address] Dr. Kesha Aguero Neutrophils/100 WBC (Bld) 57.8 % Normal 43.0-75.0 [facility] Comment on above: Performed By: #### A CETON #### [facility] [address] [place] [address] Dr. Kesha Aguero Platelet mean volume (Bld) [Entitic vol] 10.4 fL Normal 9.5-13.5 [facility] Comment on above: Performed By: #### A CETON #### [facility] [address] [place] [address] Dr. Kesha Aguero PLT 208 103/ul Normal 150-450 [facility] Comment on above: Performed By: #### A CETON #### [facility] [address] [place] [address] Dr. Kesha Aguero RBC 4.91 106/ul Normal 4.20-5.40 [facility] Comment on above: Performed By: #### A CETON #### [facility] [address] [place] [address] Dr. Kesha Aguero WBC 7.9 103/ul Normal 4.0-11.0 [facility] Comment on above: Performed By: #### A CETON #### [facility] [address] [place] [address] Dr. Kesha Aguero CTA ABD/PELVIS WO W [...] [place] Date: 2022-05-09 07:19 Normal [facility] Cholesterol [Mass/volume] in Serum or PlasmaOrdered By: Herminia Lawler on 05-09-2022 Cholesterol [Mass/Vol] 112 mg/dL 140-200 [facility] Comment on above: Chol less than 200 m g/dl low risk Chol 201-239 mg/dl borderline risk Chol 240 mg/dl and greater high risk Cholesterol in LDL Calc [Mas s/Vol]Ordered By: Herminia Lawler on 05-09-2022 Cholesterol in LDL [Mass/Vol] 51 mg/dL 0-100 [facility] Comment on above: LDL ATP III CLASSIFI CATION LDL less than 100 mg/dL Optimal LDL 100-129 mg/dL Near or above optimal LDL 130-159 mg/dL Borderline high LDL 160-189 mg/dL High LDL greater than 189 mg/dL Very high Cholesterol in VLDL Calc [Ma ss/Vol]Ordered By: Herminia Lawler on 05-09-2022 Cholesterol in VLDL [Mass/Vol] 31 mg/dL [facility] Covid-19 PCR (CVDTB)on SARS-CoV-2 (COVID-19) RNA YARA+probe Ql (Unsp spec) Not detected Normal NOT DETECTED [facility] Comment on above: [...] for this test is supported by the [place] of Health and Human Service's declaration that [...] used). Performed By: #### C VDTB #### [facility] [address] [place] [address] Dr. Kesha Aguero Glucose mean value [Mass/vol ume] in Blood Estimated from glycated hemoglobinOrdered By: Herminia Lawler on 05-09-2022 Average glucose Estimated from glycated hemoglobin (Bld) [Mass/Vol] 263 mg/dL [facility] Hemoglobin A1c percentageOrd ered By: Herminia Lawler on 05-09-2022 HbA1c (Bld) [Mass fraction] 10.8 % 4.3-5.6 [facility] Comment on above: Increased risk for d iabetes: 5.7 - 6.4 diabetes: >6.4 glycemic control for adults with diabetes: <7.0 LIPASEon 05-09-2022 Lipase [Catalytic activity/Vol] 287.0 U/L Normal 73.0-393.0 [facility] Comment on above: Performed By: #### C VDTB #### [facility] [address] [place] [address] Dr. Kesha Aguero Laboratory - CoagulationOrde red By: Herminia Lawler on 05-09-2022 PT Coag (PPP) [Time] 11.6 s 9.0-12.9 [facility] POINT OF CARE GLUCOSEon Glucose [Mass/Vol] 387 mg/dL Critically high 74-106 [facility] Comment on above: Performed By: #### C VDTBH #### [facility] [address] [place] [address] Dr. Kesha Aguero Glucose [Mass/Vol] 432 mg/dL Critically high 74-106 [facility] Comment on above: Performed By: #### P OCGLUC #### [facility] [address] [place] [address] Dr. Kesha Aguero PROF 14(COMP METB)on 022 Albumin [Mass/Vol] 3.5 g/dL Normal 3.4-5.0 [facility] [place] Comment on above: Performed By: #### C VDTBH #### [facility] [address] [place] [address] Dr. Kesha Aguero Albumin/Globulin [Mass ratio] 1.0 {ratio} Normal [facility] Comment on above: Performed By: #### C VDTBH #### [facility] [address] [place] [address] Dr. Kesha Aguero ALP [Catalytic activity/Vol] 115 U/L Normal 46-116 [facility] Comment on above: Performed By: #### C VDTBH #### [facility] [address] [place] [address] Dr. Kesha Aguero ALT [Catalytic activity/Vol] 24 U/L Normal 14-59 [facility] Comment on above: Performed By: #### C VDTBH #### [facility] [address] [place] [address] Dr. Kesha Aguero Anion gap [Moles/Vol] 15.3 mmol/L Normal [facility] Comment on above: Performed By: #### C VDTBH #### [facility] [address] [place] [address] Dr. Kesha Aguero AST [Catalytic activity/Vol] 16 U/L Normal 15-37 [facility] Comment on above: Performed By: #### C VDTBH #### [facility] [address] [place] [address] Dr. Kesha Aguero Bilirubin [Mass/Vol] 0.4 mg/dL Normal 0.2-1.0 [facility] Comment on above: Performed By: #### C VDTBH #### [facility] [address] [place] [address] Dr. Kesha Aguero Calcium [Mass/Vol] 9.6 mg/dL Normal 8.5-10.1 [facility] [place] Comment on above: Performed By: #### C VDTBH #### [facility] [address] [place] [address] Dr. Kesha Aguero Chloride [Moles/Vol] 102 mmol/L Normal 98-107 [facility] Comment on above: Performed By: #### C VDTBH #### [facility] [address] [place] [address] Dr. Kesha Aguero CO2 [Moles/Vol] 19.7 mmol/L Critically low 21.0-32.0 [facility] Comment on above: Performed By: #### C VDTBH #### [facility] [address] [place] [address] Dr. Kesha Aguero Creatinine [Mass/Vol] 1.22 mg/dL Critically high 0.55-1.02 [facility] Comment on above: Performed By: #### C VDTBH #### [facility] [address] [place] [address] Dr. Kesha Aguero EGFR-AF EGYPTIAN 51 mL/min/1.73m2 Critically low >=60 [facility] Comment on above: Performed By: #### C VDTBH #### [facility] [address] [place] [address] Dr. Kesha Aguero EGFR-NON AF EGYPTIAN 42 mL/min/1.73m2 Critically low >=60 [facility] Comment on above: Performed By: #### C VDTBH #### [facility] [address] [place] [address] Dr. Kesha Aguero Globulin (S) [Mass/Vol] 3.6 g/dL Normal [facility] Comment on above: Performed By: #### C VDTBH #### [facility] [address] [address] [address] Kesha Aguero Glucose [Mass/Vol] 499 mg/dL Critically high 74-106 [facility] Comment on above: Performed By: #### C VDTBH #### [facility] [address] [address] [address] Kesha Aguero Potassium [Moles/Vol] 4.0 mmol/L Normal 3.5-5.1 [facility] Comment on above: Performed By: #### C VDTBH #### [facility] [address] [place] [address] Dr. Kesha Aguero Protein [Mass/Vol] 7.1 g/dL Normal 6.4-8.2 [facility] [place] Comment on above: Performed By: #### C VDTBH #### [facility] [address] [place] [address] Dr. Kesha Aguero Sodium [Moles/Vol] 133 mmol/L Critically low 136-145 [facility] Comment on above: Performed By: #### C VDTBH #### [facility] [address] [place] [address] Dr. Kesha Aguero Urea nitrogen [Mass/Vol] 27.0 mg/dL Critically high 7.0-18.0 [facility] Comment on above: Performed By: #### C VDTBH #### [facility] [address] [place] [address] Dr. Kesha Aguero Urea nitrogen/Creatinine [Mass ratio] 22.1 mg/mg Normal [facility] Comment on above: Performed By: #### C VDTBH #### [facility] [address] [place] [address] Dr. Kesha Aguero Phosphate [Mass/volume] in S jefferson or PlasmaOrdered By: Herminia Lawler on 05-09-2022 Phosphate [Mass/Vol] 3.5 mg/dL 2.5-4.6 [facility] Platelet poor plasma interna tional normalized ratio (INR) by coagulation assay (relatOrdered By: Herminia Lawler on 05-09-2022 INR Coag (PPP) [Relative time] 1.0 {INR} [facility] Comment on above: INR Therapeutic Rang e [...] HDL [Mass/Vol] 30 mg/dL 35-85 [facility] Comment on above: HDL CHOL ATP-III CLA SSIFICATION Cardiovascular Risk HDL > or equal to 60 mg/dL LOW HDL < 40 mg/dL HIGH Serum or plasma total choles terol/high density lipoprotein (HDL) cholesterol mass ratOrdered By: Herminia Lawler on 05-09-2022 Cholesterol.total/Shey sterol in HDL [Mass ratio] 3.7 {ratio} <5.0 [facility] TROPONIN, HIGH SENSITIVITYon 05-09-2022 HSTROP 603.9 pg/mL Critically high 4.0-51.3 [facility] Comment on above: Result Comment: CUT- OFF POINTS HAVE BEEN ESTABLISHED BASED ON THE FOURTH UNIVERSAL DEFINITIONS OF MYOCARDIAL INFARCTION. THE UPPER REFERENCE LIMIT (URL) OF TROPONIN, DEFINED THE 99TH PERCENTILE OF cTnI DISTRIBUTION IN A REFERENCE POPULATION, HAS BEEN CONFIRMED THE DECISION THRESHOLD FOR PA DIAGNOSIS. Performed By: #### A CETON #### [facility] [address] [place] [address] Dr. Kesha Aguero HSTROP 24.7 pg/mL Normal 4.0-51.3 [facility] Comment on above: Result Comment: CUT- OFF POINTS HAVE BEEN ESTABLISHED BASED ON THE FOURTH UNIVERSAL DEFINITIONS OF MYOCARDIAL INFARCTION. THE UPPER REFERENCE LIMIT (URL) OF TROPONIN, DEFINED THE 99TH PERCENTILE OF cTnI DISTRIBUTION IN A REFERENCE POPULATION, HAS BEEN CONFIRMED THE DECISION THRESHOLD FOR PA DIAGNOSIS. Performed By: #### C VDTBH #### [facility] [address], [place] [address] Dr. Kesha Aguero Triglyceride [Mass/volume] i n Serum or PlasmaOrdered By: Herminia Lawler on 05-09-2022 Triglyceride [Mass/Vol] 156 mg/dL 35-149 [facility] Comment on above: TRIG ATP III CLASSIF ICATION TRIG less than 150 mg/dL Normal TRIG 150-199 mg/dL Borderline high TRIG 200-500 mg/dL High TRIG greater than 500 mg/dL Very high Standard traceable to the Center for Disease Conrtrol and Prevention (CDC) test method. Covid-19 PCR ([facility])on SARS-CoV-2 (COVID-19) RNA YARA+probe Ql (Unsp spec) Not detected Normal NOT DETECTED [facility] Comment on above: Result Comment: This test is not yet approved or cleared by the [place] FDA. When there are no FDA-approved or cleared tests available, and other criteria are met, FDA can make tests available under an emergency access mechanism called an Emergency Use Authorization (EUA). The EUA for this test is supported by the [place] of Health and Human Service's (HHS's) declaration [...] SARS-CoV-2. Performed By: #### C VDTB #### [facility] [address], [place] [address] Dr. Kesha Aguero PROF CHEM 8 (BAS METB)on Anion gap [Moles/Vol] 13.7 mmol/L Normal [facility] Comment on above: Performed By: #### D DIM #### [facility] [address] [address] [address] Kesha Aguero Calcium [Mass/Vol] 9.8 mg/dL Normal 8.5-10.1 [facility] [place] Comment on above: Performed By: #### D DIM #### [facility] [address] [address] [address] Kesha Aguero Chloride [Moles/Vol] 102 mmol/L Normal 98-107 [facility] Comment on above: Performed By: #### D DIM #### [facility] [address] [address] [address] Kesha Aguero CO2 [Moles/Vol] 26.0 mmol/L Normal 21.0-32.0 [facility] Comment on above: Performed By: #### D DIM #### [facility] [address] [address] [address] Kesha Aguero Creatinine [Mass/Vol] 1.22 mg/dL Critically high 0.55-1.02 [facility] Comment on above: Performed By: #### D DIM #### [facility] [address] [address] [address] Kesha Aguero EGFR-AF EGYPTIAN 51 mL/min/1.73m2 Critically low >=60 [facility] Comment on above: Performed By: #### D DIM #### [facility] [address] [address] [address] Kesha Aguero EGFR-NON AF EGYPTIAN 42 mL/min/1.73m2 Critically low >=60 [facility] Comment on above: Performed By: #### D DIM #### [facility] [address] [address] [address] Kesha Aguero Glucose [Mass/Vol] 323 mg/dL Critically high 74-106 [facility] Comment on above: Performed By: #### D DIM #### [facility] [address] [address] [address] Kesha Aguero Potassium [Moles/Vol] 4.7 mmol/L Normal 3.5-5.1 [facility] [facility] Comment on above: Performed By: #### D DIM #### [facility] [address] [address] [address] Kesha Aguero Sodium [Moles/Vol] 137 mmol/L Normal 136-145 [facility] [place] Comment on above: Performed By: #### D DIM #### [facility] [address] [address] [address] Kesha Aguero Urea nitrogen [Mass/Vol] 31.0 mg/dL Critically high 7.0-18.0 [facility] Comment on above: Performed By: #### D DIM #### [facility] [address] [address] [address] Kesha Aguero Urea nitrogen/Creatinine [Mass ratio] 25.4 mg/mg Normal [facility] Comment on above: Performed By: #### D DIM #### [facility] [address] [address] [address] Kesha Aguero Cardiovascular Lab Reporton 04-22-2022 Cardiovascular Lab Report [facility] [id number] Department of Physician: Edison Gibbs M.D. Division of Service Date: 04/21/2022 Cardiology Birthdate: 1940 Adult Cardiovascular Room #: [facility] [address] [facility]. 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 Monitor labs. 5. Outpatient followup with MD Cardiology. 6. Referral to cardiac rehabilitation. PROCEDURES: [...] infiltrated over the left radial artery. A 6-Italian for Terumo Glidesheath slender was placed in the left radial artery. Radial anti-vasospasm cocktail of verapamil and nitroglycerin was administered to prevent spasm. All catheter exchanges were made over the [employer] guidewire. This was a planned PCI procedure. Heparin anticoagulation was administered and ACT was maintained greater than 250 seconds. A [employer] 6-Italian JR4 guide was engaged to right coronary [...] througho (more content not included)... Normal [facility] Covid-19 PCR (CVDTB)on 03-31 SARS-CoV-2 (COVID-19) RNA YARA+probe Ql (Unsp spec) Not detected Normal NOT DETECTED [facility] Comment on above: Result Comment: This test is not yet approved or cleared by the [place] FDA. When there are no FDA-approved or cleared tests available, and other criteria are met, FDA can make tests available under an emergency access mechanism called an Emergency Use Authorization (EUA). The EUA for this test is supported by the Flight Control Specialist of Health and Human Service's (HHS's) declaration [...] SARS-CoV-2. Performed By: #### D DIM #### [facility] [address] [place] [address] Dr. Kesha Aguero HEMOGRAM AND PLATELon 2021 Hematocrit (Bld) [Volume fraction] 41.6 % Normal 36.0-48.0 [facility] Comment on above: Performed By: #### C VDTBH #### [facility] [address] [place] [address] Dr. Kesha Aguero Hemoglobin (Bld) [Mass/Vol] 13.2 g/dL Normal 12.0-16.0 [facility] Comment on above: Performed By: #### C VDTBH #### [facility] [address] [place] [address] Dr. Kesha Aguero MCH (RBC) [Entitic mass] 26.2 pg Critically low 26.7-34.0 [facility] Comment on above: Performed By: #### C VDTBH #### [facility] [address] [place] [address] Dr. Kesha Aguero MCHC (RBC) [Mass/Vol] 31.7 g/dL Normal 29.9-35.2 [facility] Comment on above: Performed By: #### C VDTBH #### [facility] [address] [place] [address] Dr. Kesha Aguero MCV (RBC) [Entitic vol] 82.7 fL Normal 81.0-99.0 [facility] Comment on above: Performed By: #### C VDTBH #### [facility] [address] [place] [address] Dr. Kesha Aguero PLT 272 103/ul Normal 150-450 [facility] Comment on above: Performed By: #### C VDTBH #### [facility] [address] [place] [address] Dr. Kesha Aguero RBC 5.03 106/ul Normal 4.20-5.40 [facility] Comment on above: Performed By: #### C VDTBH #### [facility] [address] [place] [address] Dr. Kesha Aguero WBC 5.9 103/ul Normal 4.0-11.0 [facility] Comment on above: Performed By: #### C VDTBH #### [facility] [address] [place] [address] Dr. Kesha Aguero PROF CHEM 8 (BAS METB)on Anion gap [Moles/Vol] 12.8 mmol/L Normal [facility] Comment on above: Performed By: #### D DIM #### [facility] [address] [place] [address] Dr. Kesha Aguero Calcium [Mass/Vol] 9.6 mg/dL Normal 8.5-10.1 [facility] Comment on above: Performed By: #### D DIM #### [facility] [address] [place] [address] Dr. Kesha Aguero Chloride [Moles/Vol] 105 mmol/L Normal 98-107 [facility] Comment on above: Performed By: #### D DIM #### [facility] [address] [place] [address] Dr. Kesha Aguero CO2 [Moles/Vol] 25.6 mmol/L Normal 21.0-32.0 [facility] Comment on above: Performed By: #### D DIM #### [facility] [address] [place] [address] Dr. Kesha Aguero Creatinine [Mass/Vol] 1.07 mg/dL Critically high 0.55-1.02 [facility] Comment on above: Performed By: #### D DIM #### [facility] [address] [place] [address] Dr. Kesha Aguero EGFR-AF EGYPTIAN 59 mL/min/1.73m2 Critically low >=60 [facility] Comment on above: Performed By: #### D DIM #### [facility] [address] [place] [address] Dr. Kesha Aguero EGFR-NON AF EGYPTIAN 49 mL/min/1.73m2 Critically low >=60 [facility] Comment on above: Performed By: #### D DIM #### [facility] [address] [address] [address] Kesha Aguero Glucose [Mass/Vol] 264 mg/dL Critically high 74-106 T [facility] Comment on above: Performed By: #### D DIM #### [facility] [address] [address] [address] Kesha Aguero Potassium [Moles/Vol] 4.4 mmol/L Normal 3.5-5.1 [facility] Comment on above: Performed By: #### D DIM #### [facility] [address] [address] [address] Kesha Aguero Sodium [Moles/Vol] 139 mmol/L Normal 136-145 [facility] Comment on above: Performed By: #### D DIM #### [facility] [address] [place] [address] Dr. Kesha Aguero Urea nitrogen [Mass/Vol] 17.0 mg/dL Normal 7.0-18.0 [facility] Comment on above: Performed By: #### D DIM #### [facility] [address] [place] [address] Dr. Kesha Aguero Urea nitrogen/Creatinine [Mass ratio] 15.9 mg/mg Normal [facility] Comment on above: Performed By: #### D DIM #### [facility] [address] [place] [address] Dr. Kesha Aguero MAGNESIUMon 03-12-2022 Magnesium [Mass/Vol] 1.8 mg/dL Normal 1.8-2.4 [facility] Comment on above: Performed By: #### D DIM #### [facility] [address] [place] [address] Dr. Kesha Aguero PROF CHEM 8 (BAS METB)on Anion gap [Moles/Vol] 13.9 mmol/L Normal [facility] Comment on above: Performed By: #### D DIM #### [facility] [address] [address] [address] Kesha Aguero Calcium [Mass/Vol] 9.8 mg/dL Normal 8.5-10.1 [facility] Comment on above: Performed By: #### D DIM #### [facility] [address] [address] [address] Kesha Aguero Chloride [Moles/Vol] 101 mmol/L Normal 98-107 [facility] Comment on above: Performed By: #### D DIM #### [facility] [address] [address] [address] Kesha Aguero CO2 [Moles/Vol] 24.8 mmol/L Normal 21.0-32.0 [facility] Comment on above: Performed By: #### D DIM #### [facility] [address] [address] [address] Kesha Aguero Creatinine [Mass/Vol] 1.28 mg/dL Critically high 0.55-1.02 [facility] Comment on above: Performed By: #### D DIM #### [facility] [address] [address] [address] Kesha Aguero EGFR-AF EGYPTIAN 48 mL/min/1.73m2 Critically low >=60 [facility] Comment on above: Performed By: #### D DIM #### [facility] [address] [address] [address] Kesha Aguero EGFR-NON AF EGYPTIAN 40 mL/min/1.73m2 Critically low >=60 [facility] Comment on above: Performed By: #### D DIM #### [facility] [address] [address] [address] Kesha Aguero Glucose [Mass/Vol] 214 mg/dL Critically high 74-106 [facility] Comment on above: Performed By: #### D DIM #### [facility] [address] [address] [address] Kesha Aguero Potassium [Moles/Vol] 4.7 mmol/L Normal 3.5-5.1 [facility] Comment on above: Performed By: #### D DIM #### [facility] [address] [address] [address] Kesha Aguero Sodium [Moles/Vol] 135 mmol/L Critically low 136-145 Th [facility] Comment on above: Performed By: #### D DIM #### [facility] [address] [address] [address] Kesha Aguero Urea nitrogen [Mass/Vol] 26.0 mg/dL Critically high 7.0-18.0 [facility] Comment on above: Performed By: #### D DIM #### [facility] [address] [address] [address] Kesha Aguero Urea nitrogen/Creatinine [Mass ratio] 20.3 mg/mg Normal [facility] Comment on above: Performed By: #### D DIM #### [facility] [address] [address] [address] Kesha Aguero Cardiovascular Lab Reporton 2022 Cardiovascular Lab Report [facility] Patient Name: [facility] A MR #: [id number] Department of Physician: Edison Gibbs M.D. Division of Service Date: 03/07/2022 Cardiology Birthdate: 1940 Adult Cardiovascular Room #: [facility] [address] [facility]. [place] [address] Cardiovascular Laboratory Report CLINICAL PRESENTATION: The patient [...] mid LAD has 100% chronic total occlusion (RATE QUOTING OPERATOR). The ramus coronary artery has a proximal [...] right PDA disease. 8. Outpatient followup with MD Cardiology. 9. Since the right heart catheterization [...] ultrasound guidance and micropuncture access technique, a 6-Italian sheath was placed in right internal jugular [...] anesthetized with 1% lidocaine and then a 6-Italian Terumo Glidesheath slender placed in the left radial artery. The radial anti-vasospasm cocktail of nitroglycerin 200 mcg and verapamil 2.5 mg administered through the sheath. All catheters and sheaths were made over the [employer] guidewire. A 5-Italian JR 5 was used to engage the right coronary artery. 5-Italian JL 3.5 was used to engage the left main coronary artery. Coronary angiogram was performed in multiple orthogonal views using hand injection of contrast. 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 I elected to proceed with PCI given the patient's advanced age. A Cordis 6-Italian XB 3.0 guide was engaged in left main coronary artery. Heparin anticoagulation was used for this procedure. ACT was maintained greater than 200 seconds. Run-through wire was manipulated into the coronary arteries. First, I probed the LAD and it did in fact behave as a RATE QUOTING OPERATOR. Therefore, I turned my attention to the ramus coronary artery. The proximal ramus had 99% stenosis. The run-through wire has been delivered to the distal ramus. The lesion was predilated with the Valensum 2.5 x 15 mm balloon at 12 atmospheres. Next, a Synergy 2.5 x 16 mm drug-eluting stent was deployed in the proximal ramus. Careful attention was placed to land the stent at the ostium of the ramus and not protrude into the left main coronary artery. The stent was deployed at 12 atmospheres. Next, the stent was post dilated with the Valensum 2.5 x 15 mm balloon. The b (more content not included)... Normal [facility] POC SARS COV2 IDon 2 SARS-CoV-2 (COVID-19) RNA YARA+probe Ql (Unsp spec) Negative Normal NEGATIVE [facility] Comment on above: Result Comment: ID N OW COVID-19 assay performed on the [employer] Instrument is a rapid molecular in vitro [...] Accreditation. Performed By: #### 3 1921 #### [facility] [address] CBC AUTO DIFFon 03-01-2022 BASO # 0.1 103/ul Normal 0.0-0.1 [facility] Comment on above: Performed By: #### C VDTBH #### [facility] [address] [place] [address] Dr. Kesha Aguero Basophils/100 WBC (Bld) 0.7 % Normal 0.2-2.0 [facility] Comment on above: Performed By: #### C VDTBH #### [facility] [address] [place] [address] Dr. Kesha Aguero EO # 0.1 103/ul Normal 0.0-0.7 [facility] Comment on above: Performed By: #### C VDTBH #### [facility] [address] [place] [address] Dr. Kesha Aguero Eosinophils/100 WBC (Bld) 1.2 % Normal 0.9-7.0 [facility] Comment on above: Performed By: #### C VDTBH #### [facility] [address] [place] [address] Dr. Kesha Aguero Erythrocyte distribution width (RBC) [Ratio] 14.0 % Normal 11.0-15.0 [facility] Comment on above: Performed By: #### C VDTBH #### [facility] [address] [place] [address] Dr. Kesha Aguero Hematocrit (Bld) [Volume fraction] 40.9 % Normal 36.0-48.0 [facility] Comment on above: Performed By: #### C VDTBH #### [facility] [address] [place] [address] Dr. Kesha Aguero Hemoglobin (Bld) [Mass/Vol] 13.1 g/dL Normal 12.0-16.0 [facility] Comment on above: Performed By: #### C VDTBH #### [facility] [address] [place] [address] Dr. Kesha Aguero IG # 0.03 10e3/ul Normal 0.00-0.03 [facility] Comment on above: Performed By: #### C VDTBH #### [facility] [address] [address] [address] Kesha Aguero IG % 0.3 % Normal 0.0-0.5 [facility] Comment on above: Performed By: #### C VDTBH #### [facility] [address] [address] [address] Kesha Aguero LYMPH # 3.4 103/ul Normal 1.2-3.8 [facility] Comment on above: Performed By: #### C VDTBH #### [facility] [address] [address] [address] Kesha Aguero Lymphocytes/100 WBC (Bld) 36.9 % Normal 20.5-60.0 [facility] Comment on above: Performed By: #### C VDTBH #### [facility] [address] [place] [address] Dr. Kesha Aguero MANUAL DIFF REQ NO Normal [facility] Comment on above: Performed By: #### C VDTBH #### [facility] [address] [address] [address] Kesha Aguero MCH (RBC) [Entitic mass] 26.5 pg Critically low 26.7-34.0 [facility] Comment on above: Performed By: #### C VDTBH #### [facility] [address] [address] [address] Kesha Aguero MCHC (RBC) [Mass/Vol] 32.0 g/dL Normal 29.9-35.2 [facility] Comment on above: Performed By: #### C VDTBH #### [facility] [address] [place] [address] Dr. Kesha Aguero MCV (RBC) [Entitic vol] 82.8 fL Normal 81.0-99.0 [facility] Comment on above: Performed By: #### C VDTBH #### [facility] [address] [address] [address] Kesha Aguero MONO # 0.6 103/ul Normal 0.3-0.8 [facility] Comment on above: Performed By: #### C VDTBH #### [facility] [address] [place] [address] Dr. Kesha Aguero Monocytes/100 WBC (Bld) 6.5 % Normal 1.7-12.0 [facility] Comment on above: Performed By: #### C VDTBH #### [facility] [address] [place] [address] Dr. Kesha Aguero NEUT # 4.9 103/ul Normal 1.4-6.5 [facility] Comment on above: Performed By: #### C VDTBH #### [facility] [address] [place] [address] Dr. Kesha Aguero Neutrophils/100 WBC (Bld) 54.4 % Normal 43.0-75.0 [facility] Comment on above: Performed By: #### C VDTBH #### [facility] [address] [place] [address] Dr. Kesha Aguero Platelet mean volume (Bld) [Entitic vol] 9.5 fL Normal 9.5-13.5 [facility] Comment on above: Performed By: #### C VDTBH #### [facility] [address] [place] [address] Dr. Kesha Aguero PLT 271 103/ul Normal 150-450 [facility] Comment on above: Performed By: #### C VDTBH #### [facility] [address] [place] [address] Dr. Kesha Aguero RBC 4.94 106/ul Normal 4.20-5.40 [facility] Comment on above: Performed By: #### C VDTBH #### [facility] [address] [place] [address] Dr. Kesha Aguero WBC 9.1 103/ul Normal 4.0-11.0 [facility] Comment on above: Performed By: #### C VDTBH #### [facility] [address] [place] [address] Dr. Kesha Aguero [facility] SARS-CoV-2 (COVID-19) RNA YARA+probe Ql (Unsp spec) Not detected Normal NOT DETECTED [facility] Comment on above: [...] for this test is supported by the Flight Control Specialist of Health and Human Service's declaration [...] used). Performed By: #### A CETON #### [facility] [address] [place] [address] Dr. Kesha Aguero PROF CHEM 8 (BAS METB)on Anion gap [Moles/Vol] 14.3 mmol/L Normal [facility] Comment on above: Performed By: #### B MP #### [facility] [address] [place] [address] Dr. Kesha Aguero Calcium [Mass/Vol] 9.7 mg/dL Normal 8.5-10.1 [facility] Comment on above: Performed By: #### B MP #### [facility] [address] [place] [address] Dr. Kesha Aguero Chloride [Moles/Vol] 100 mmol/L Normal 98-107 [facility] Comment on above: Performed By: #### B MP #### [facility] [address] [place] [address] Dr. Kesha Aguero CO2 [Moles/Vol] 27.2 mmol/L Normal 21.0-32.0 [facility] Comment on above: Performed By: #### B MP #### [facility] [address] [address] [address] Kesha Aguero Creatinine [Mass/Vol] 1.34 mg/dL Critically high 0.55-1.02 [facility] Comment on above: Performed By: #### B MP #### [facility] [address] [address] [address] Kesha Aguero EGFR-AF EGYPTIAN 46 mL/min/1.73m2 Critically low >=60 [facility] Comment on above: Performed By: #### B MP #### [facility] [address] [address] [address] Kesha Aguero EGFR-NON AF EGYPTIAN 38 mL/min/1.73m2 Critically low >=60 [facility] Comment on above: Performed By: #### B MP #### [facility] [address] [address] [address] Kesha Aguero Glucose [Mass/Vol] 232 mg/dL Critically high 74-106 T [facility] Comment on above: Performed By: #### B MP #### [facility] [address] [address] [address] Kesha Aguero Potassium [Moles/Vol] 4.5 mmol/L Normal 3.5-5.1 [facility] Comment on above: Performed By: #### B MP #### [facility] [address] [address] [address] Kesha Aguero Sodium [Moles/Vol] 137 mmol/L Normal 136-145 [facility] Comment on above: Performed By: #### B MP #### [facility] [address] [address] [address] Kesha Aguero Urea nitrogen [Mass/Vol] 22.0 mg/dL Critically high 7.0-18.0 [facility] Comment on above: Performed By: #### B MP #### [facility] [address] [address] [address] Kesha Aguero Urea nitrogen/Creatinine [Mass ratio] 16.4 mg/mg Normal [facility] Comment on above: Performed By: #### B MP #### [facility] [address] [place] [address] Dr. Kesha Aguero ECHOCARDIO M/2D COMPLETEon 0 02-11-2022 ECHOCARDIO M/2D COMPLETE Patient: TERE HARTMANN Exam Date: 02/11/2022 : 1940 Gender:F Ordering : DR RODRICK BUTLER M.D. Admission #: [id number] Family : Order #: [id number] CLICK HERE TO VIEW EXAM ECHOCARDIOGRAM REPORT [...] Area(A4C): 23.90 cm2 Left Atrium Systolic Volume(A2C): 16717 mm3 Left Atrium Systolic Volume(A4C): 02284 mm3 Mitral Valve MV E to A [...] Jackson M.D. on 02/11/2022 at 18:48 Normal [facility] NM STRESS/REST MULTIon 02-11 NM STRESS/REST MULTI Patient: TERE HARTMANN Exam Date: 02/11/2022 : 1940 Gender:F Ordering : DR RODRICK BUTLER M.D. Admission #: [id number] Family : Order #: [id number] CLICK HERE TO VIEW EXAM RADIOLOGY REPORT [...] DEFECT: LOCATION: Mid-anterior. Mid-anteroseptal. Mid-anterolateral. Apical anterior. [place]. SIZE: Large (5 or more segments). SEVERITY: [...] Diego M.D. on 02/11/2022 at 14:41 Normal [facility] Vital Signs Date Time Vital Sign Value Performing Clinician Facility 09-22-2022 12:00-0500 Body height 162.56 cm Heather Soler Other [facility] Other 09-22-2022 12:00-0500 Body mass index (BMI) [Ratio] 24.59 kg/m2 Heather Scally Other [facility] Other 09-22-2022 12:00-0500 Body weight 65 kg Heather Katarinaly Other [facility] Other 09-22-2022 12:00-0500 Diastolic blood pressure 76 mm[Hg] Heather Scally Other [facility] Other 09-22-2022 12:00-0500 Respiratory rate 18 /min Heather Scally Other [facility] Other 09-22-2022 12:00-0500 SaO2% (BldA) [Mass fraction] 100 % Heather Scally Other [facility] Other 09-22-2022 12:00-0500 Systolic blood pressure 136 mm[Hg] Heather Scally Other [facility] Other 05-11-2022 11:34-0400 Body temperature 97.3 [degF] II Rodrick Butler Work Phone: [facility] 05-11-2022 11:34-0400 Diastolic blood pressure 75 mm[Hg] II Rodrick Butler Work Phone: [facility] 05-11-2022 11:34-0400 Heart rate 78 /min II Rodrick Butler Work Phone: [facility] 05-11-2022 11:34-0400 Respiratory rate 20 /min II Rodrick Butler Work Phone: [facility] 05-11-2022 11:34-0400 SaO2% (BldA) [Mass fraction] 95 % II Rodrick Butler Work Phone: [facility] 05-11-2022 11:34-0400 Systolic blood pressure 122 mm[Hg] II Rodrick Butler Work Phone: [facility] 05-11-2022 06:00-0400 Body weight 69 kg II Rodrick Butler Work Phone: [facility] 05-09-2022 09:40-0400 Body height 170.18 cm II Rodrick Butler Work Phone: [facility] Encounters Encounter Date Encounter Type Care Provider Facility Start: 05-05-2024 End: 05-05-2024 ambulatory KALYANI FLETCHER Not Available Start: 04-26-2024 End: 04-26-[address] [facility] Start: 04-19-2024 End: 04-19-2024 ambulatory RODGER PAREDES Not Available Start: 04-07-2024 End: 04-07-2024 ambulatory KALYANI FLETCHER Not Available Start: 02-29-2024 End: 02-29-2024 ambulatory RODRICK B BUTLER Not Available Start: 01-12-2024 End: 01-12-2024 ambulatory RODGER PAREDES Not Available Start: 12-30-2023 End: 12-30-2023 ambulatory RODRICK B BUTLER Not Available Start: 12-02-2023 End: 12-02-2023 ambulatory RODRICK B BUTLER Not Available Start: 10-27-2023 End: 10-27-[address] [facility] Start: 09-17-2023 End: 09-17-2023 ambulatory RODRICK B BUTLER Not Available Start: 09-16-2023 End: 09-16-2023 ambulatory ABBIE CRISOSTOMO [facility] Start: 09-09-2023 Evaluation and manag ement of inpatient [facility] Start: 09-09-2023 Evaluation and manag ement of inpatient [facility] Start: 09-08-2023 [facility]: 09-08-[facility]23 Evaluation and manag ement of inpatient [facility] Start: 09-08-2023 Evaluation and manag ement of inpatient [facility] Start: 09-07-2023 End: 09-09-2023 Evaluation and management of inpatient MIKALA STAHL [facility] Start: 09-07-2023 End: 09-07-2023 Evaluation and management of inpatient CODY FORDE [facility] Start: 08-13-2023 End: 08-13-2023 ambulatory RODRICK BUTLER Not Available Start: 07-29-2023 End: 07-29-2023 ambulatory RODRICK BUTLER Not Available Start: 06-03-2023 End: 06-03-2023 [facility] Start: 11-24-2022 End: 11-24-[address] RODRICK BUTLER Facility:H1 Start: 09-29-2022 End: 09-30-[address] RODRICK BUTLER Facility:[facility] Start: 09-22-2022 (New DM) New Diabetes Heather Scalnirav [facility] Start: 09-22-2022 End: 09-23-2022 ambulatory Heather Soler [place] [employer] Other Start: 08-28-2022 End: 08-29-[address] [...] management of inpatient CHANDA Butler Work Phone: [facility] Start: 05-09-2022 End: 05-09-2022 ambulatory Itz Townsend II Facility:[id number] Start: 05-02-2022 Encounter for other preprocedural examination ABBIE [facility] Start: 05-02-2022 Encounter for preprocedural laboratory examination ABBIE CRISOSTOMO [facility] Start: 05-01-2022 End: 05-02-[address] RODRICK BUTLER Facility:[facility]1 Start: 05-01-2022 End: 05-02-2022 Encounter for other preprocedural examination DR RODRICK UBTLER Facility:[facility] Start: 04-21-2022 End: 04-22-2022 ambulatory RODRICK BUTLER Facility:[facility] Start: 04-18-2022 End: 04-19-2022 ambulatory ABBIE CRISOSTOMO Facility:[facility] Start: 03-12-2022 End: 03-13-2022 ambulatory ABBIE CRISOSTOMO Facility:[facility] Start: 03-07-2022 End: 2022 ambulatory RODRICK BUTLER Facility:[facility] Start: 03-01-2022 End: 03-02-2022 ambulatory ABBIEIRVING CUADRAS Facility:[facility]1 Start: 02-11-2022 End: 02-12-[address] RODRICK BUTLER Facility:[facility]1 Plan of Treatment Date Care Activity Detail Author Start: 05-11-2022 [facility] Work Phone: Start: 05-09-2022 Hospital admission [facility] Work Phone: Start: 05-09-2022 Referral to winder fixer [facility] Work Phone: Patient Education Acid Reflux an d GERD in Adults (DC) Irritable Bowel Syndrome (DC) Coronary Artery Disease (DC) [facility] Work Phone: Patient referral [facility] Work Phone: Payers Date Payer Category Payer Medicare [id number] 2022 Self-pay [id number] 1960 Private Health Insurance [id number] 1940 [facility] [id number] 2.16.840.1.676500.3.579. 2.647 1940 Unknown [id number] 2.16.840.1.357005.3.579. 2.647 1940 Unknown [id number] 2.16.840.1.723223.3.579. 2.356 1940 Unknown [id number] 2.16.840.1.477545.3.579. 2.356 1940 Unknown [id number] 2.16.840.1.123574.3.579. 2.356 1940 Unknown [id number] 2.16.840.1.827075.3.579. 2.356 1940 Unknown [id number] 2.16.840.1.448081.3.579. 2.593 1939 Unknown [id number] 2.16.840.1.379436.3.579. 2.593 1939 Unknown [id number] 2.16.840.1.971265.3.579. 2.593 1939 Unknown [id number] 2.16.840.1.941815.3.579. 2.593 1939 Unknown [id number] 2.16.840.1.170938.3.579. 2.593 1939 Unknown [id number] 2.16.840.1.127765.3.579. 2.593 1939 Unknown [id number] 2.16.840.1.147866.3.579. 2.593 1939 Unknown [id number] 2.16.840.1.981702.3.579. 2.593 1939 Unknown [id number] 2.16.840.1.235295.3.579. 2.593 1939 Unknown [id number] 2.16.840.1.440677.3.579. 2.593 1939 Unknown [id number] 2.16.840.1.612042.3.579. 2.593 1939 Unknown [id number] 2.16.840.1.411527.3.579. 2.593 1939 Unknown [id number] 2.16.840.1.579683.3.579. 2.593 1939 Unknown [id number] 2.16.840.1.602555.3.579. 2.1259 1939 Unknown [id number] 2.16.840.1.051551.3.579. 2.125 1939 Unknown [id number] 2.16.840.1.934794.3.579. 2.125 1939 Unknown [id number] 2.16.840.1.405866.3.579. 2.125 1939 Unknown [id number] 2.16.840.1.619684.3.579. 2.1259 1939 Unknown [id number] 2.16.840.1.403547.3.579. 2.125 1939 Unknown [id number] 2.16.840.1.829699.3.579. 2.1259 1939 Unknown [id number] 2.16.840.1.046613.3.579. 2.125 1939 Unknown [id number] 2.16.840.1.224660.3.579. 2.125 1939 Unknown [id number] 2.16.840.1.447540.3.579. 2.1259 Private Health Insurance [id number] Unknown Equitable Insurance-[facility] [id number] Unknown [id number] 2.16.840.1.791432.3.579. 2.531 Social History Date Type Detail Facility Start: 05-09-2022 Tobacco smoking status NHIS Never smoked tobacco (finding) [facility] Start: 1940 Sex Assigned At Female F [facility] Sex Assigned At Sex Assigned At Bir th [facility] Other Medical Equipment Procedure Code Equipment Code Equipment Origin al Text Equipment Identifier Dates Accu-Chek Briana Test Strip Start: 01-18-2013 Goals Date Patient Goal Desired Activity /State Functional Status Date Assessment Result Facility 05-11-2022 Functional status Patient at Baseline [facility] Work Phone: Mental Status Date Assessment Result Facility 05-11-2022 Cognitive function Cognitive Sta tus Patient at Baseline [facility] Work Phone: Clinical Notes 03-31-2022 to 09-16-2023 Note Date & Type Note Facility 09-16-2023 Note Incision healing wel l- no s/s of distress and RTC at 1 month for device interrogation [facility] 09-16-2023 Note UTP CARDIOLOGY PROGR ESS [...] 1 1 [facility] Heart Station [address] [place] [address] [phone] (fax) Echocardiogram-[facility] Name: TERE HARTMANN Study Date: 09/08/2023 09:30 AM B/P: 140 mmHg/51 mmHg HR: Date of : 1940 Location: [facility] Height: 67 in. Age: 83 year(s) Patient [...] LV Mass, 2D (more content not included)... [facility] 09-09-2023 Note UTP CARDIOLOGY INPAT IENT [...] Value Ventricular Rate 76 Atrial Rate 76 OK Interval 226 QRS DURATION 164 QT Interval 456 QTC CALCULATION(BAZETT) 513 P Kearney 63 R-Kearney -77 T Wave Kearney 92 Impression Atrial-sensed ventricular-paced rhythm with prolonged [...] normal in siz (more content not included)... 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 female with past medical history of CAD s/p PCI with stenting, CHF, DM2, hypertension, hyperlipidemia presents as a direct admission from [facility] with dizziness on 09/07/23 to [facility]. Per report, patient presented to [facility] on 09-04-2023 due to dizziness and was found to be bradycardic in the 30s. Patient is on Coreg at home and this was held for 3 days without improvement in symptoms. She was then found to have second-degree AV block Mobitz type II and was transferred to [facility] for pacemaker placement. Patient underwent dual chamber pacemaker placement on 09/07/2023. Patient to be admitted to the hospitalist team overnight for observation post procedure. On 09/08, it was determined that lead had been dislodged and patient returned to mobile lab technician for revision of pacemaker lead. She was [...] -ventricular lead dislodged and required Return to mobile lab technician for lead revision procedure on 09/08/23 -interrogation of device, EKG, and CXR confirm Pacemaker lead in place and pacemaker working properly on 09/09/23 -discharged home on 09/09/23 Chronic diseases (POA): #Chronic systolic heart failure, NYHA class II, compensated #CAD s/p PCI with stenting #DM2 #Hypertension, continue home medications #Hyperlipidemia, continue home medications Dear Dr. Luke MD, [place] is advised to follow up with you [...] Your Medications These medications were sent to [facility] - [place], [place] - [address] [facility] [address] [place] [address] carvedilol 12.5 mg tablet doxycycline 100 mg [...] of discharge: regul (more content not included)... 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 [facility] 09-08-2023 Note 09/08/23 1406 Admission Assessment [...] Discharge? Yes Does the patient have a cyanide case hardener assigned to them through their insurance? No [...] activate MyChart? Yes (link sent, mychart pending) [facility] 09-08-2023 Note Hospital Medicine Daily Progress Note - 09/08/2023 1:43 PM; [facility] Admission: 09/07/2023 7:38 PM; Length of stay: 1 days THE HOSPITALIST TEAM PREFERS TO USE UpNext CHAT FOR COMMUNICATION 7AM-7PM. IF I DO NOT RESPOND WITHIN 15 MINUTES, PLEASE PAGE ME/CALL THROUGH THE BRANCH SERVICE SPECIALIST. FROM 7PM-7AM, PLEASE PAGE [phone](COVR) Code Status: Full Code Barriers to Discharge: [...] block Active Problems: Coronary artery disease involving chippewa-cree coronary artery of chippewa-cree heart Chronic systolic heart failure (CMS/HCC) Mixed hyperlipidemia Diabetes mellitus (CMS/HCC) Benign essential hypertension Heart block atrioventricular Assessment and Plan Tere Hartmann is an 83 y.o. female with past medical history of CAD s/p PCI with stenting, CHF, DM2, hypertension, hyperlipidemia, presents as a direct admission from [facility] with dizziness and found to have heart block at which time she was sent to [facility] for further treatment. Per report, patient presented to [facility] on 09-04-2023 due to dizziness and was found to be bradycardic in the 30s. #Second-degree AV block Mobitz type II, s/p PPM implantation on 09/07/23 -noted on follow up imaging today that the ventricular lead had been dislodged. Returned to mobile lab technician for lead revision procedure today, 09/08/23 -plan [...] F[place]ET[place] , [place] (more content not included)... [facility] 09-08-2023 Note dications for ventri cular [...] lead Fluoroscopy Conscious sedation Shamika Hutchins M.D. [facility] vice president network and Pediatrics Director: Cardiac Electrophysiology Program [facility] 09-08-2023 Note Patient: Tere Christopher idd Procedure Information Date/Time: 09/08/231124 Procedure: Pacemaker lead revision Location: [facility] EXTRACTOR MACHINE OPERATOR 1 / [facility] (Cath) Providers: Shamika Hutchins [...] with attending and fellow. Additional Equipment Requests [facility] 09-08-2023 Note UTP CARDIOLOGY INPAT IENT [...] of pneumothorax or acute pathology. Electronically signed: Patricai Collazo. CV Testing: Encounter Date: 09/07/23 ECG 12 lead Result Value Ventricular Rate 74 Atrial Rate 74 OK Interval 220 QRS DURATION 128 QT Interval 432 QTC CALCULATION(BAZETT) 479 P Kearney 29 R-Kearney 21 T Wave Kearney -5 Impression Sinus rhythm with 1st degree [...] to lack o (more content not included)... [facility] 09-07-2023 Note Hospital Medicine History and Physical 09/07/2023 7:47 PM THE HOSPITALIST TEAM PREFERS TO USE UpNext CHAT FOR COMMUNICATION 7AM-7PM. IF I DO NOT RESPOND WITHIN 15 MINUTES, PLEASE PAGE ME/CALL THROUGH THE BRANCH SERVICE SPECIALIST. FROM 7PM-7AM, PLEASE PAGE [phone](COVR) Chief Complaint Direct admission from [facility] with AV block, patient S/p pacemaker with our cardio team on 09/07 History of Present Illness Tere Hartmann is an 83 y.o. female who came from home with past medical history of CAD s/p PCI with stenting, CHF, DM2, hypertension, hyperlipidemia presents as a direct admission from [facility] with dizziness. Per report, patient presented to [facility] on 09-04-2023 due to dizziness and was found to be bradycardic in the 30s. Patient is on Coreg at home and this was held for 3 days without improvement in symptoms. She was then found to have second-degree AV block Mobitz type II and was transferred to [facility] for pacemaker placement. Patient underwent dual chamber [...] Diverticulitis 01/27/2023 Mass of left adrenal gland ([facility]) 01/27/2023 Ovarian failure 01/27/2023 Skin sensation disturbance 01/27/2023 Type 2 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 gangrene ([facility]) 01/27/2023 Type 2 diabetes mellitus without complications ([facility]) 01/27/2023 Diabetes mellitus ([facility]) 08/01/2022 Benign hypertensive cardiomyopathy with heart failure ([facility]) 08/01/2022 Insomnia 08/01/2022 Non-smoker 08/01/2022 Restless legs syndrome 08/01/2022 Coronary artery disease involving chippewa-cree coronary artery of chippewa-cree heart 06/25/2022 Chronic systolic heart failure ([facility]) 06/25/2022 Mixed hyperlipidemia 06/25/2022 Lightheadedness 03/12/2022 Heart block atrioventricular 09/07/2023 Presence of drug coated stent in right coronary artery 06/25/2022 Assessment and Plan Tere Hartmann is an 83 y.o. female who came from home with past medical history of CAD s/p PCI with stenting, CHF, DM2, hypertension, hyperlipidemia presents as a direct admission from [facility] with dizziness. Per report, patient presented to [facility] on 09-04-2023 due to dizziness and was [...] recommendation #Chronic sys (more content not included)... [facility] 09-07-2023 Note DUAL CHAMBER PACEMAK ER [...] using modified seldinger technique using a 5 Italian micro-puncture needle on two occasions and 0.35 [...] for the device above the muscle. 6 Italian Safesheaths were placed over the wire. An active fixation Biotronik pacing lead was then delivered through the 6Fsheath tothe right ventricle. After confirmation of lead position on orthogonal views (HERNANDEZ and TURKISH) to confirm septal position, the screw was [...] lead position on orthogonal views (HERNANDEZ and TURKISH), the screw was activated. Good sensing parameters, [...] any concerns. Cody Forde MD Cardiac Electrophysiology [facility] 09-07-2023 Note Patient: Tere Christopher idcurtis Procedure Information Date/Time: 09/07/231901 Procedure: PPM generator change - dual Location: [facility] EXTRACTOR MACHINE OPERATOR 1 EP / [facility] (Cath) Providers: Cody Forde MD Clinical information reviewed: Allergies Meds OB Status Physical Exam Airway Mallampati: II TM distance: >3 FB Neck ROM: full Cardiovascular Dental Pulmonary Abdominal Anesthesia Plan ASA 2 CSE Anesthetic plan and risks discussed with patient. Use of blood products discussed with patient who. Additional Equipment Requests [facility] 06-03-2023 Note [facility] Note Chief Complaint: Patient [...] mid LAD has 100% chronic total occlusion (RATE QUOTING OPERATOR). The ramus coronary artery has a proximal [...] right PDA disease. 8. Outpatient followup with MD Cardiology. 9. Since the right heart catheterization showed very low filling pressures, I discontinued hydrochlorothiazide (more content not included)... 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] stated compliance. This time, patient presented at [facility] with epigastric pain, initial troponin was negative, EKG with no acute ischemic changes. 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 Last Echo on report with EF 40%. Repeat Troponin at [place] uptrended to 600s, EKG with no acute ischemic changes again, given her recent cardiac history, raised the concern forstent thrombosis. Patient was started on IV heparin drip for presumptive NSTEMI and decision made to transfer patient over here to [facility] for possible cardiac cath. In our facility, [...] in 3-[address] AP at [facility] found to have incidentaloma left adrenal 3.6 mass.Need outpatient follow up. Also strict glucose follow up. Maybe endocrinology referral. ) Documented By: Herminia Lawler MD 05/11/22 14 25 Signed By: <Electronically signed by Herminia Lawler MD> 05/11/22 [facility] Work Phone: 1(483) 328-195809-11-2022 Progress note Author Itz Townsend [facility] May 11, 2022 12:15pm Note Date/Time May 11, 2022 12:12pm [facility] [address] [place] [address] Cardiology Progress Note Signed Patient: Tere Hartmann MR#: [id number] : 1940 Acct:[id number] Age/Sex: 82 / F Adm Date: 2 Loc: Room: [address] [place] [address] Type: ADM IN Attending Dr: Herminia Lawler [...] Code(s): I25.10 - Atherosclerotic heart disease of chippewa-cree coronary artery without angina pectoris Status: Acute [...] signed by MD Itz Townsend> 05/11/22 1215 [facility] Work Phone: 1(134) 692-214509-10-2022 Progress note Author Herminia Lawler [facility] May 10, 2022 11:22am Note Date/Time May 10, 2022 11:05am [facility] [address] [place] [address] Hospitalist Progress Note Signed Patient: Tere Hartmann MR#: [id number] : 1940 Acct:[id number] Age/Sex: 82 / F Adm Date: 2 Loc: Room: [address] [place] [address] Type: ADM IN Attending Dr: Herminia Lawler [...] then RCA and PDA on 04/21/22 at [facility] PE was ruled out by CTA Aortic [...] with hyperglycemia -HbA1C 10.8 -Blood glucose at [place] was 499. Negative for ketones. DKA was [...] <Electronically signed by Herminia Lawler MD> 05/10/[address] [place] [address] Ctr Work Phone: 1(890) 250-223009-10-2022 Progress note Author Itz Townsend [facility] May 10, 2022 8:46am Note Date/Time May 10, 2022 8:46am [facility] [address] [place] [address] Cardiology Progress Note Signed Patient: Tere Hartmann MR#: [id number] : 1940 Acct:[id number] Age/Sex: 82 / F Adm Date: 2 Loc: Room: 0C5357-0 Type: ADM IN Attending Dr: Herminia Lawler [...] % (Auto) 55.8 Lymph % (Auto) 35.8 Love % (Auto) 6.3 Eos % (Auto) 1.5 Baso % (Auto) 0.6 Neut # (Auto) 3.4 Lymph # (Auto) 2.2 Love # (Auto) 0.4 Eos # (Auto) 0.1 [...] MPV Neut % (Auto) Lymph % (Auto) Love % (Auto) Eos % (Auto) Baso % (Auto) Neut # (Auto) Lymph # (Auto) Love # (Auto) Eos # (Auto) Baso # [...] MPV Neut % (Auto) Lymph % (Auto) Love % (Auto) Eos % (Auto) Baso % (Auto) Neut # (Auto) Lymph # (Auto) Love # (Auto) Eos # (Auto) Baso # [...] MPV Neut % (Auto) Lymph % (Auto) Love % (Auto) Eos % (Auto) Baso % (Auto) Neut # (Auto) Lymph # (Auto) Love # (Auto) Eos # (Auto) Baso # [...] % (Auto) 45.7 Lymph % (Auto) 42.4 Love % (Auto) 6.4 Eos % (Auto) 2.7 Baso % (Auto) 2.8 Neut # (Auto) 3.2 Lymph # (Auto) 3.0 Love # (Auto) 0.4 Eos # (Auto) 0.2 [...] MPV Neut % (Auto) Lymph % (Auto) Love % (Auto) Eos % (Auto) Baso % (Auto) Neut # (Auto) Lymph # (Auto) Love # (Auto) Eos # (Auto) Baso # [...] artery disease): Assessment/Problem Details: Angiographic studies from [place] reviewed. She had a 99% ramus intermedius [...] Code(s): I25.10 - Atherosclerotic heart disease of chippewa-cree coronary artery without angina pectoris Status: Acute [...] <Electronically signed by MD Itz Townsend> 05/10/2246 [facility] Work Phone: 1(923) 808-846409-09-2022 Consult note Author Itz Townsend [facility] May 09, 2022 5:03pm Note Date/Time May 09, 2022 5:03pm [facility] [address] [place] [address] Cardiology Consult Note Signed Patient: Tere Hartmann MR#: [id number] : 1940 Acct:[id number] Age/Sex: 82 / F Adm Date: 2 Loc: Room: [address] [place] [address] Type: ADM IN Attending Dr: Herminia Lawler [...] comparisonand will not use the enzymes from [place] to make decisions. Presently it appears the [...] of heart artery stent x3 placed in [facility] February 2022 Social History Smoking Status: Never [...] x10E3/uL Lymph # (Auto) 2.2 (1.00-4.8) x10E3/uL Love # (Auto) 0.4 (0.0-0.8) x10E3/uL Eos # [...] Code(s): I25.10 - Atherosclerotic heart disease of chippewa-cree coronary artery without angina pectoris (2) DM [...] follow advise. Documented By: Itz Townsend MD [id number] Signed By: <Electronically signed by MD Itz Townsend> 05/09/22 3262 [facility] Work Phone: 1(994) 428-561209-09-2022 History and physical note Author Herminia Lawler [facility] May 09, 2022 3:50pm Note Date/Time May 09, 2022 1:19pm [facility] [address] [place] [address] Hospitalist H&P Signed Patient: Tere Hartmann MR#: [id number] : 1940 Acct:[id number] Age/Sex: 82 / F Adm Date: 2 Loc: Room: [address] [place] [address] Type: ADM IN Attending Dr: Herminia Lawler MD Copies to: MD Herminia Owens II, MD~ HPI DATE OF EXAMINATION: 05/09/22 CHIEF COMPLAINT: Epigastric pain HISTORY OF PRESENT ILLNESS: Patient is an 82 elderly female with PMH HTN, DM, CAD s/p recent PCIs, patient had symptoms of SOB and fatigue on exertion in February and went to [facility], She had Echo with EF 40%, positive [...] stated compliance. This time, patient presented at [facility] this morning, initial troponin was negative, EKG with no acute ischemic changes. 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 Last Echo on report with EF 40%.This morning, repeat Troponin at [place] uptrended to 600s, EKG with no acute ischemic changes again, given her recent cardiac history, raised the concern forstent thrombosis/restenosis. Patient was started on IV heparin drip for presumptive NSTEMI and decision made to transfer patient over here to [facility] for possible cardiac cath. During my encounter, [...] of heart artery stent x3 placed in [facility] February 2022 Social History Smoking Status: Never [...] then RCA and PDA on 04/21/22 at [facility] PE was ruled out by CTA Aortic dissection was ruled out by CTA -Patient was transferred from [facility] for NSTEMI for possible cardiac cath -Initial troponin at [place] was normal then repeat was in 600s. Repeat troponin in our facility remains in the 600s. Patient denies any chest pain or epigastric pain, however, she does report bloating sensation in the epigastrium -Patient was started on heparin drip ACS protocol at [place]. We will continuefor now. Further recommendations to follow by cardio -Heparin drip management per pharmacy protocol for ACS -Check serial troponin -Cardiology was consulted. We will follow-up recommendations -Continue DAPT, statin, beta-reginaldo -Check Echocardiogram -Admit to 4 P for close monitoring Uncontrolled Diabetes with hyperglycemia -HbA1C today 10.8 -Blood glucose at [place] was 499. Negative for ketones. DKA was [...] signed by Herminia Lawler MD> 05/09/22 1550 [facility] Work Phone: [phone] 432-928808-01-2022 History general Narrative - Reported* Type Description Date Medical History DM2 Medical History HTN Medical History cervical cancer stage 1 Medical History glaucoma Medical History PA Medical History coronary artery dise ase-stents x3 February/March 2022 Surgical History MIREYA 1989 Surgical History appedectomy 1960 Surgical History breast biopsy-benign unsure of date Surgical History Stents x3 2021 Hospitalization History See Above M [employer] Other Discharge summary Author Herminia Lawler [facility] May 11, 2022 2:35pm Note Date/Time May 11, 2022 2:27pm [facility] [address] [place] [address] Discharge Summary Signed Patient: Tere Hartmann MR#: [id number] : 1940 Acct:[id number] Age/Sex: 82 / F Adm Date: 2 Loc: Room: [address] [place] [address]: Herminia Lawler MD Copies to: [...] on exertion in February and went to [facility], She had Echo with EF 40%, positive [...] stated compliance. This time, patient presented at [facility] with epigastric pain, initial troponin was negative, EKG with no acute ischemic changes. 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 Last Echo on report with EF 40%. Repeat Troponin at [place] uptrended to 600s, EKG with no acute ischemic changes again, given her recent cardiac history, raised the concern forstent thrombosis. Patient was started on IV heparin drip for presumptive NSTEMI and decision made to transfer patient over here to [facility] for possible cardiac cath. In our facility, [...] in 3-[address] AP at [facility] found to have incidentaloma left adrenal 3.6 mass.Need outpatient follow up. Also strict glucose follow up. Maybe endocrinology referral. ) Documented By: Herminia Lawler MD 05/11/22 14 25 Signed By: <Electronically signed by Herminia Lawler MD> 05/11/22 1435 [facility] Work Phone: Evaluation note* Diagnosis Onset Date Resolution Status CAD (coronary artery disease) acute DM (diabetes mellitus) acute Elevated troponin acute Epigastric abdominal pain ac alla HLD (hyperlipidemia) acute HTN (hypertension) acute [facility] Work Phone: Evaluation noteNo assessment information available [facility] Work Phone: Hospital Discharge instructions [...] worsening in symptoms or developing new alarming symptoms[facility]Select [facility] Work Phone: Reason for visit NarrativeSelf Referral, [facility] Visit Codes, TKM 2 IDDMNort Mobile Action Other Summary Purpose Family History No Family [...] and content) DATE CREATED AUTHOR 04/28/2022 [facility] DATE CREATED AUTHOR AUTHOR'S ORGANIZ ATION 05/27/2022 [facility] [place] DATE CREATED AUTHOR AUTHOR'S ORGANIZ ATION 12/05/2022 [facility] DATE CREATED AUTHOR AUTHOR'S ORGANIZ ATION 05/14/2023 [facility] DATE CREATED AUTHOR AUTHOR'S ORGANIZ ATION 09/28/2023 [facility] DATE CREATED AUTHOR AUTHOR'S ORGANIZ ATION 04/28/2024 [facility] DATE CREATED AUTHOR AUTHOR'S ORGANIZ ATION 05/07/2024 [facility] [employer] Care Teams (unrecognized sec [...] BE BASED ON THE PRIMARY CLINICAL RECORDS. [facility] provides no warranty or guarantee of the accuracy or completeness of information in this document.
[2024-05-28] MEDS: CARVEDILOL 12.5 MG TABLET PO ×2 (14:25→21:50)
--- NOTE | 2024-05-28 15:26 | PM.HP ---
HPI H&P: HPI History of Present Illness Chief complaint: HIGH BLOOD PRESURE READING, HYPERTENSIVE EMERGENCY Narrative: 84 y o female with hx of HTN, CAD s/p PCI was in her usual state of health when she woke up early in the morning to use the restroom and felt different. She did not pay attention to it and went to bed again. She then woke up around 4 am and noticed that vision was blurred and she felt unsteady on her feet. She then went back to sleep again and upon waking up, noticed persistent blurry vision and unsteady gait. She came to ED for further evaluation. Upon arrival her BP was as high as 210/110 and she was worked up for possible stroke. She reports that her BP is typically well controlled and this is unusual for her. CTH/CTA head/neck was performed that did not show any sig finding. Patient has no prior hx of CVA. Tele stroke was consulted and recommended inpatient stroke work up including MRI/ECHO and tele monitoring. At the time I evaluated the patient, she still had blurred vision but according to her it was a little better. When he stood her up, she could not stand with her feet closed. Other than that, her neurological exam was completely normal. Opioid HPI Opioid Management Most Recent Pain and Opioid Data: Last Pain Scale 0 09/05/23 09:55 Last Pain Assessment 05/28/24 14:32 Last ORT Total Score 0 05/28/24 14:15 Last ORT Risk Category Low Risk 05/28/24 14:15 Review of Systems ROS Status of ROS 10 or more systems reviewed and unremarkable except as noted in history and below [facility] Medical History (Updated 05/28/24 @ 15:34 by Shaikh Richard MD) Type 2 diabetes mellitus ?E11.9 - Type 2 diabetes mellitus without complications (ICD-10) HLD (hyperlipidemia) ?E78.5 - Hyperlipidemia, unspecified (ICD-10) CAD (coronary artery disease) ?I25.10 - Atherosclerotic heart disease of [place] coronary artery without angina pectoris (ICD-10) Pacemaker ?Z95.0 - Presence of cardiac pacemaker (ICD-10) Dehydration ?E86.0 - Dehydration (ICD-10) Metabolic acidosis ?E87.20 - Acidosis, unspecified (ICD-10) Hyponatremia ?E87.1 - Hypo-osmolality and hyponatremia (ICD-10) Bradycardia ?R00.1 - Bradycardia, unspecified (ICD-10) URI (upper respiratory infection) ?J06.9 - Acute upper respiratory infection, unspecified (ICD-10) Diabetes ?E11.9 - Type 2 diabetes mellitus without complications (ICD-10) Heart attack ?I21.9 - Acute myocardial infarction, unspecified (ICD-10) Uterine cancer ?C55 - Malignant neoplasm of uterus, part unspecified (ICD-10) Surgical History (Updated 05/28/24 @ 14:29 by Charleen Cunningham LPN) History of cataract surgery ?Z98.49 - Cataract extraction status, unspecified eye (ICD-10) History of heart artery stent ?Z95.5 - Presence of coronary angioplasty implant and graft (ICD-10) Social History (Updated 05/28/24 @ 14:29 by Charlene Cunningham LPN) Within the past year, how often did you have a drink containing alcohol: never Within the past year, how many standard drinks containing alcohol did you have on a typical day: 1 or 2 Within the past year, how often did you have six or more drinks on one occasion: never Total score: 0 Score interpretation: A score less than 3 is consistent with normal alcohol consumption. Smoking status: Never smoker Second hand tobacco smoke exposure: No Non-prescribed substance use: denies use Known occupational exposures/hazards: No Highest level of school completed/degree received: high school graduate Do you want help with school or training: No In a typical week, how many times do you talk on the telephone with family, friends, or neighbors: 3 or more times per week How often do you get together with friends or relatives: 3 or more times per week How often do you attend latter-day or presybeterian services: never Do you belong to any clubs or organizations such as latter-day groups unions, fraternal or athletic groups, or school groups: no Little interest or pleasure in doing things: not at all Feeling down, depressed, or hopeless: not at all Feel stressed/tense/nervous/anxious/difficulty sleeping: not at all Due to disability, difficulty making decisions: No Meds Home Medications and Allergies Home Medications ?Medication ?Instructions ?Recorded ?Confirmed ?Type atorvastatin 80 mg tablet 80 mg PO .qhs 09/04/23 05/28/24 History carvedilol 12.5 mg tablet 12.5 mg PO Q12H 09/04/23 05/28/24 History cyproheptadine 4 mg tablet 2 mg PO .qhs 09/04/23 05/28/24 History insulin glargine 100 unit/mL 25 unit subcut QAM 09/04/23 05/28/24 History subcutaneous solution (Lantus U-100 Insulin) latanoprost 0.005 % eye drops 1 drp ophthalmic (eye) .qhs 05/28/24 05/28/24 History ofloxacin 0.3 % eye drops 1 drp ophthalmic (eye) QID 05/28/24 05/28/24 History prednisolone acetate 1 % eye 1 drp ophthalmic (eye) QID 05/28/24 05/28/24 History drops,suspension sitagliptin phos 100 mg-metformin 1 tab PO DAILY 05/28/24 05/28/24 History ER 1,000 mg tablet,extend rel 24h mp (Janumet XR) Allergies Allergy/AdvReac Type Severity Reaction Status Date / Time iodine AdvReac Intermediate Rash Verified 05/28/24 08:31 Sulfa (Sulfonamide AdvReac Intermediate Rash Verified 05/28/24 08:31 Antibiotics) empagliflozin AdvReac uti Verified 05/28/24 08:31 [From Jardiance] Exam Constitutional Vital Signs, click to edit/add: Last Vital Signs Temp 97.6 F 05/28/24 14:18 Pulse 60 05/28/24 14:03 Resp 16 05/28/24 14:03 BP 186/78 H 05/28/24 14:18 Pulse Ox 98 05/28/24 14:03 O2 Del Method Room Air 05/28/24 14:03 Documenting provider has reviewed patient's vital signs: yes Common normals: no apparent distress and oriented x3 General appearance: cooperative HENTN Common normals: normocephalic and head/scalp atraumatic Head and scalp: normocephalic and atraumatic Eye Common normals: conjunctivae normal and no scleral icterus Conjunctiva: conjunctiva(e) normal Respiratory Common normals: normal respiratory effort and clear to auscultation bilaterally Effort & inspection: able to speak in complete sentences Auscultation: clear to auscultation bilaterally Cardio Common normals: regular rate, S1 normal heart sound and S2 normal heart sound Rate: regular rate Heart sounds: S1 normal and S2 normal GI Common normals: Normal to inspection, nondistended, normoactive bowel sounds present, soft to palpation, non-tender and no hepatosplenomegaly Palpation: soft and no hepatosplenomegaly Extremity Common normals: no clubbing, cyanosis or edema Neuro Common normals: oriented x3, moves all extremities and no focal motor deficits Meningeal signs: no meningeal signs Coordination/balance: ljcrwc-mc-jqra test normal, svdk-qt-pron test normal and sways with eyes open Speech: speech normal Gait (neuro): ataxic Psych Common normals: mental status grossly normal, denies hallucinations, denies homicidal ideation and denies suicidal ideation Results Labs Labs: Short CBC 05/28/24 Range/Units 08:45 WBC 6.0 (4.0-11.0) 10^3/uL Hgb 12.5 (12.0-16.0) g/dL Hct 39.3 (36.0-48.0) % Plt Count 204 (150-450) 10^3/uL BMP 05/28/24 08:45 Sodium 140 Potassium 4.4 Chloride 107 Carbon Dioxide 25.3 BUN 16.0 Creatinine 0.91 Glucose 144 H Calcium 9.6 Liver Function 05/28/24 Range/Units 08:45 Total Bilirubin 0.5 (0.2-1.0) mg/dL AST 20 (15-37) U/L ALT 25 (14-59) U/L Alkaline Phosphatase 85 (46-116) U/L Albumin 3.4 (3.4-5.0) g/dL Assessment and Plan Assessment and Plan (1) Suspected cerebrovascular accident (CVA): Assessment and Plan: Suspected CVA - has blurred vision, ataxic gait. No other neurological symptoms. Started on ASA, already on high dose Lipitor. CTH/CTA head and neck - no acute finding. MRI brain/ECHO pending Tele monitoring/neuro checks. (2) Hypertensive emergency: Assessment and Plan: Poorly controlled BP, range c/w htn emergency. However, will allow permissive HTN and no IV drugs unless BP > 180/110 C/w home medications. IV hydralazine as needed. Monitor closely. Needs close neuro monitoring. Will need gradual lowering of BP over the course of 2-3 days to prevent progression of her stroke symptoms. Consult tele stroke (3) CAD (coronary artery disease): Assessment and Plan: s/p PCI 2 years ago. No evidence of active cardiac ischemia. C/w ASA, Lipitor. Qualifiers: Coronary Disease-Associated Artery/Lesion type: [place] artery [place] vs. transplanted heart: [place] heart Associated angina: without angina Qualified Code(s): I25.10 - Atherosclerotic heart disease of [place] coronary artery without angina pectoris (4) Type 2 diabetes mellitus: Assessment and Plan: Hold metformin due to contrast. C/w SSI, Lantus. 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
[2024-05-28] MEDS: HYDRALAZINE HCL 20 MG/ML VIAL 10 MG IVP (15:49)
[2024-05-28] MEDS: ASPIRIN 81 MG TABLET.DR PO (16:38)
[2024-05-28] MEDS: ASPIRIN 81 MG TAB.CHEW 324 MG PO (16:41)
[2024-05-28 17:21] LABS: Glucometer 142 mg/dL (74-106)
[2024-05-28] MEDS: PREDNISOLONE ACETATE OP 1% SUSP 100 DROPS/5 ML 1 DROP EYE-RIGHT ×2 (17:22→21:52)
[2024-05-28] MEDS: ENOXAPARIN SODIUM 40 MG/0.4 ML SYRINGE SUBQ (17:24)
--- NOTE | 2024-05-28 18:07 | PC.NURSE ---
Nursing note from shift: 1420-Radiology contacted RN to inform that they discontinued the MRI order due to the patient having a pacemaker. 1430-Dr. Ramos updated on most recent BP of 186/78 and that the patient received a dose of coreg. no orders. 1507-[facility] called, informed of consult for patient. States will receive additional information in the next 24 hours. 1527-Dr. Ramos contacted to clarify IVF orders. He updated the orders. 1605-Aspirin order from ER clarified, ok to give at this time. Also updated that patient received a dose of hydralazine. 1741-updated on BP and informed that per the current parameter for hydralazine (administer SBP>170) she is not due for another dose. He states he wrote a miscellaneous order for SBP >180.
[2024-05-28] MEDS: ATORVASTATIN CALCIUM 40 MG TABLET 80 MG PO (21:50)
[2024-05-28] MEDS: LATANOPROST 0.005% 2.5 ML BOTTLE 1 DROP EYE-BOTH (21:52)
[2024-05-28 21:54] LABS: Glucometer 144 mg/dL (74-106)
[2024-05-28] MEDS: ACETAMINOPHEN 325 MG TABLET 650 MG PO (22:00)
[2024-05-29] VITALS (17 sets, daily range): BP systolic 125–150; BP diastolic 56–75; PULSE 60–78; TEMP 36.4–36.8; O2SAT 93–98
[2024-05-29 05:34] LABS: Basophils Percent Auto 0.4 % (0.2-2.0); Eosinophils Absolute Auto 0.1 10^3/uL (0.0-0.7); Eosinophils Percent Auto 1.4 % (0.9-7.0); Hematocrit 40.1 % (36.0-48.0); Hemoglobin 12.7 g/dL (12.0-16.0); Immature Granulocytes Abs Auto 0.02 10^3/uL (0.00-0.03); Immature Granulocytes Pct Auto 0.3 % (0.0-0.5); Lymphocytes Absolute Auto 2.3 10^3/uL (1.2-3.8); Lymphocytes Percent Auto 31.2 % (20.5-60.0); Mean Corpuscular HGB Conc 31.7 g/dL (29.9-35.2); Mean Corpuscular Hemoglobin 26.5 pg (26.7-34.0); Mean Corpuscular Volume 83.5 fL (81.0-99.0); Mean Platelet Volume 9.7 fL (9.5-13.5); Monocytes Absolute Auto 0.6 10^3/uL (0.3-0.8); Monocytes Percent Auto 7.7 % (1.7-12.0); Neutrophils Absolute Auto 4.3 10^3/uL (1.4-6.5); Platelet Count 198 10^3/uL (150-450); Red Cell Distribution Width 14.4 % (11.0-15.0); White Blood Count 7.2 10^3/uL (4.0-11.0)
[2024-05-29 06:02] LABS: Alanine Aminotransferase 22 U/L (14-59); Albumin Globulin Ratio 0.9; Albumin Level 3.3 g/dL (3.4-5.0); Alkaline Phosphatase 83 U/L (46-116); Aspartate Amino Transferase 17 U/L (15-37); BUN Creatinine Ratio 17.9; Bilirubin Total 0.7 mg/dL (0.2-1.0); Calcium 9.8 mg/dL (8.5-10.1); Carbon Dioxide 26.3 mmol/L (21.0-32.0); Chloride 103 mmol/L (98-107); Estimated GFR (African America >60 (>=60); Estimated GFR (Non-African Ame 56 (>=60); Globulin 3.6 g/dL; Glucose 131 mg/dL (74-106); Potassium 4.3 mmol/L (3.5-5.1); Sodium 138 mmol/L (136-145); Total Protein 6.9 g/dL (6.4-8.2)
[2024-05-29] MEDS: PREDNISOLONE ACETATE OP 1% SUSP 100 DROPS/5 ML 1 DROP EYE-RIGHT ×4 (07:31→21:45)
[2024-05-29 07:32] LABS: Glucometer 132 mg/dL (74-106)
[2024-05-29] MEDS: ASPIRIN 81 MG TABLET.DR PO (08:55)
[2024-05-29] MEDS: CARVEDILOL 12.5 MG TABLET PO ×2 (08:55→21:44)
[2024-05-29] MEDS: INSULIN DETEMIR 300 UNIT/3 ML INSULN.PEN 25 UNIT SUBQ (08:56)
[2024-05-29 11:35] LABS: Glucometer 239 mg/dL (74-106)
[2024-05-29 11:35] LABS: Glucometer 182 mg/dL (74-106)
--- NOTE | 2024-05-29 12:25 | PC.NURSE ---
1102-patient with telestroke initiated.
[2024-05-29] MEDS: INSULIN ASPART 300 UNIT/3 ML PEN SUBQ ×2 (12:46→16:36)
--- NOTE | 2024-05-29 14:02 | PM.IMPN1 ---
Progress Note: A&P Assessment and Plan (1) Acute ischemic stroke: Assessment and Plan: Acute ischemic stroke noted on repeat CTH. No intracranial hemorrhage. C/w ASA, statin. She is doing well and feels that her symptoms have resolved. ECHO to assess cardiac structure pending. No sig finding on CTA head/neck MRI could not be performed due to pacemaker. Tele stroke consulted. Recommend pacemaker interrogation. (2) Hypertensive emergency: Assessment and Plan: BP is better. C/w home medications. No IV medications for uncontrolled HTN to allow permissive HTN. (3) CAD (coronary artery disease): Assessment and Plan: C/w ASA, statin. Qualifiers: Coronary Disease-Associated Artery/Lesion type: [place] artery [place] vs. transplanted heart: [place] heart Associated angina: without angina Qualified Code(s): I25.10 - Atherosclerotic heart disease of [place] coronary artery without angina pectoris (4) Type 2 diabetes mellitus: Assessment and Plan: C/w home medications. A1C at goal. Qualifiers: Diabetes mellitus nursing home insulin use: with nursing home use Diabetes mellitus complication status: without complication Qualified Code(s): E11.9 - Type 2 diabetes mellitus without complications; Z79.4 - penitentiary (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 of insulin (5) HLD (hyperlipidemia): Assessment and Plan: C/w Lipitor Qualifiers: Hyperlipidemia type: unspecified Qualified Code(s): E78.5 - Hyperlipidemia, unspecified Plan Needs continued monitoring to ensure hemodynamically stable and her neurological status remains stable. ECHO pending. Will need pacemaker interrogated. Will reach out to her toeing stockings tomorrow. C/w ASA, statin. Internal Medicine - PN: Subj Subjective Interval history: Seen and examined. Feeling better overall. She feels that her vision is better. Her BP is well controlled and at goal today. MRI could not be performed due to Pacemaker. Exam Constitutional Vital Signs, click to edit/add: Last Vital Signs Temp 98.1 F 05/29/24 12:00 Pulse 63 05/29/24 12:00 Resp 18 05/29/24 12:00 BP 129/68 05/29/24 12:00 Pulse Ox 96 05/29/24 12:00 O2 Del Method Room Air 05/29/24 12:00 Documenting provider has reviewed patient's vital signs: yes Common normals: no apparent distress and oriented x3 General appearance: cooperative HENMT Common normals: normocephalic and head/scalp atraumatic Head and scalp: normocephalic and atraumatic Eye Common normals: conjunctivae normal and no scleral icterus Conjunctiva: conjunctiva(e) normal Respiratory Common normals: normal respiratory effort and clear to auscultation bilaterally Effort & inspection: able to speak in complete sentences Auscultation: clear to auscultation bilaterally Cardio Common normals: regular rate, S1 normal heart sound and S2 normal heart sound Rate: regular rate Heart sounds: S1 normal and S2 normal GI Common normals: Normal to inspection, nondistended, normoactive bowel sounds present, soft to palpation, non-tender and no hepatosplenomegaly Palpation: soft and no hepatosplenomegaly Extremity Common normals: no clubbing, cyanosis or edema Neuro Common normals: oriented x3, moves all extremities and no focal motor deficits Meningeal signs: no meningeal signs Coordination/balance: dwloxy-uo-xsmc test normal, shfc-sp-vjxn test normal and sways with eyes open Speech: speech normal Gait (neuro): ataxic Psych Common normals: mental status grossly normal, denies hallucinations, denies homicidal ideation and denies suicidal ideation Internal Medicine - PN: Obj Da Labs Labs: Laboratory Results - last 24 hr 05/28/24 05/28/24 05/29/24 17:19 21:50 05:13 WBC 7.2 RBC 4.80 Hgb 12.7 Hct 40.1 MCV 83.5 MCH 26.5 L MCHC 31.7 RDW 14.4 Plt Count 198 MPV 9.7 Neut % (Auto) 59.0 Lymph % (Auto) 31.2 [place] % (Auto) 7.7 Eos % (Auto) 1.4 Baso % (Auto) 0.4 Neut # (Auto) 4.3 Lymph # (Auto) 2.3 [place] # (Auto) 0.6 Eos # (Auto) 0.1 Baso # (Auto) 0.0 Abs Immat Gran (auto) 0.02 Imm/Tot Granulo (auto) 0.3 Sodium 138 Potassium 4.3 Chloride 103 Carbon Dioxide 26.3 Anion Gap 13.0 BUN 17.0 Creatinine 0.95 Est GFR ( Amer) >60 Est GFR (Non-Af Amer) 56 L BUN/Creatinine Ratio 17.9 Glucose 131 H Calcium 9.8 Total Bilirubin 0.7 AST 17 ALT 22 Alkaline Phosphatase 83 Total Protein 6.9 Albumin 3.3 L Globulin 3.6 Albumin/Globulin Ratio 0.9 POC Glucose 142 H 144 H 05/29/24 05/29/24 05/29/24 07:31 11:33 11:34 WBC RBC Hgb Hct MCV MCH MCHC RDW Plt Count MPV Neut % (Auto) Lymph % (Auto) [place] % (Auto) Eos % (Auto) Baso % (Auto) Neut # (Auto) Lymph # (Auto) [place] # (Auto) Eos # (Auto) Baso # (Auto) Abs Immat Gran (auto) Imm/Tot Granulo (auto) Sodium Potassium Chloride Carbon Dioxide Anion Gap BUN Creatinine Est GFR ( Amer) Est GFR (Non-Af Amer) BUN/Creatinine Ratio Glucose Calcium Total Bilirubin AST ALT Alkaline Phosphatase Total Protein Albumin Globulin Albumin/Globulin Ratio POC Glucose 132 H 182 H 239 H
[2024-05-29 16:37] LABS: Glucometer 209 mg/dL (74-106)
[2024-05-29] MEDS: ENOXAPARIN SODIUM 40 MG/0.4 ML SYRINGE SUBQ (16:38)
[2024-05-29 20:12] LABS: Glucometer 85 mg/dL (74-106)
[2024-05-29] MEDS: ATORVASTATIN CALCIUM 40 MG TABLET 80 MG PO (21:44)
[2024-05-29] MEDS: LATANOPROST 0.005% 2.5 ML BOTTLE 1 DROP EYE-BOTH (21:45)
[2024-05-30] VITALS (10 sets, daily range): BP systolic 157–160; BP diastolic 63–68; PULSE 60–72; TEMP 36.4; O2SAT 94–95
[2024-05-30] MEDS: PREDNISOLONE ACETATE OP 1% SUSP 100 DROPS/5 ML 1 DROP EYE-RIGHT ×2 (05:25→12:22)
[2024-05-30 06:40] LABS: Basophils Percent Auto 0.6 % (0.2-2.0); Eosinophils Absolute Auto 0.1 10^3/uL (0.0-0.7); Eosinophils Percent Auto 1.9 % (0.9-7.0); Hematocrit 38.3 % (36.0-48.0); Hemoglobin 12.1 g/dL (12.0-16.0); Immature Granulocytes Abs Auto 0.02 10^3/uL (0.00-0.03); Immature Granulocytes Pct Auto 0.3 % (0.0-0.5); Lymphocytes Absolute Auto 2.6 10^3/uL (1.2-3.8); Lymphocytes Percent Auto 41.2 % (20.5-60.0); Mean Corpuscular HGB Conc 31.6 g/dL (29.9-35.2); Mean Corpuscular Hemoglobin 26.4 pg (26.7-34.0); Mean Corpuscular Volume 83.4 fL (81.0-99.0); Mean Platelet Volume 9.5 fL (9.5-13.5); Monocytes Absolute Auto 0.5 10^3/uL (0.3-0.8); Monocytes Percent Auto 8.5 % (1.7-12.0); Neutrophils Absolute Auto 2.9 10^3/uL (1.4-6.5); Neutrophils Percent Auto 47.5 % (43.0-75.0); Platelet Count 183 10^3/uL (150-450); Red Blood Count 4.59 10^6/uL (4.20-5.40); Red Cell Distribution Width 14.3 % (11.0-15.0); White Blood Count 6.2 10^3/uL (4.0-11.0)
[2024-05-30 06:56] LABS: Alanine Aminotransferase 21 U/L (14-59); Albumin Level 3.2 g/dL (3.4-5.0); Alkaline Phosphatase 78 U/L (46-116); Aspartate Amino Transferase 20 U/L (15-37); BUN Creatinine Ratio 15.6; Bilirubin Total 0.6 mg/dL (0.2-1.0); Calcium 9.3 mg/dL (8.5-10.1); Carbon Dioxide 25.1 mmol/L (21.0-32.0); Chloride 106 mmol/L (98-107); Estimated GFR (African America >60 (>=60); Estimated GFR (Non-African Ame 60 (>=60); Globulin 3.3 g/dL; Glucose 104 mg/dL (74-106); Potassium 4.1 mmol/L (3.5-5.1); Sodium 138 mmol/L (136-145); Total Protein 6.5 g/dL (6.4-8.2)
--- NOTE | 2024-05-30 07:10 | CA_ITS ---
Patient Name: MERRILL ARAGON MR#: [id number] : 1940 Exam Date: 05/30/2024 Ordering Doctor: Shaikh Aden Ramos . ECHOCARDIOGRAM REPORT PROCEDURE: CA ECHO DOPPLER COMPLETE INDICATIONS: CVA/TIA COMPARISON: None. DESCRIPTION: COMPLETE ECHOCARDIOGRAM Real-time transthoracic echocardiography with 2D, M-mode, spectral and color flow Doppler performed. QUALITY: Technical quality was good. LEFT VENTRICLE: Normal chamber size. Moderate left ventricular hypertrophy. LV EF: Global left ventricular systolic function is hyperdynamic; calculated left ventricular ejection fraction is 69%. No wall motion abnormalities. DIASTOLIC: Normal diastolic function. ATRIAL SEPTUM: Inadequately seen. LEFT ATRIUM: Normal chamber size. RIGHT ATRIUM: Mild dilatation. Pacer wire present. RIGHT VENTRICLE: Normal chamber size. Normal right ventricular systolic function. Pacer wire present. TRICUSPID VALVE: Normal mobility and thickness. Mild regurgitation. Mild pulmonary hypertension. RVSP 36mmHg MITRAL VALVE: Mildly thickened with normal mobility. No evidence of mitral valve stenosis. There is no mitral annular calcification. Mild mitral regurgitation. AORTIC VALVE: Normal trileaflet appearance. No visible sclerosis. Normal leaflet mobility. No evidence of aortic valve stenosis. No aortic regurgitation. AORTIC ROOT: Normal diameter and appearance. PULMONIC VALVE: Normal thickness and mobility. No stenosis. No regurgitation. PERICARDIUM: No evidence of pericardial effusion. IVC: Collapses with inspirations. Normal size. CONCLUSION: 1. Global left ventricular systolic function is hyperdynamic; visually estimated ejection fraction is 65 to 70% 2. Normal right ventricular size and systolic function 3. Moderate left ventricular hypertrophy 4. The right atrium is mildly dilated 5. Mild tricuspid regurgitation 6. Mildly elevated right ventricular systolic pressure; RVSP 36 mmHg 7. Mild mitral regurgitation Adult Echocardiography Procedure Report Left Ventricle LVEDD (3.7 - 5.6 cm): 4.40 cm LVESD (2.2 - 4.0 cm): 2.69 cm LVIVS thickness (0.6 - 1.2 cm): 1.35 cm LVPW thickness (0.5 - 1.0 cm): 1.15 cm e': 0.07 m/s E - e': 8.74 LVOT Max Gradient: 2.60 mm[Hg] LVOT Area (cm2): 0.81 m/s Peak Velocity (LVOT): 0.81 m/s Mean Velocity (LVOT): 0.59 m/s LVOT Diameter 1.82 cm Left Ventricular Ejection Fraction: 69.29 % Left Atrium LA Volume Index (2D A2C): 28.29 ml/m2 Left Atrium Systolic Dimension: 3.10 cm Mitral Valve MV E to A Ratio: 0.68 Mitral Valve A-Wave Peak Velocity: 0.95 m/s Mitral Valve E-Wave Peak Velocity: 0.65 m/s Right Ventricle RV Internal Diastolic Dimension: 3.15 cm Aorta AO Root Diam: 2.72 cm Ascending Ao Diam: 2.25 cm Aortic Valve AoV Area ([place]): 1.18 cm2, 1.18 cm2 AoV Area (VTI): 1.38 cm2, 1.38 cm2 Peak Velocity(Antegrade Flow): 1.79 m/s Peak Gradient(Antegrade Flow): 12.81 mm[Hg] Mean Velocity(Antegrade Flow): 1.21 m/s Mean Gradient(Antegrade Flow): 6.70 mm[Hg] Velocity Time Integral: 40.26 cm Tricuspid Valve Peak Velocity (Regurgitant Flow): 2.40 m/s, 2.86 m/s, 2.66 m/s Pulmonic Valve Mean Gradient: 4.10 mm[Hg], 3.29 mm[Hg] Mean Velocity: 0.95 m/s, 0.85 m/s Peak Velocity: 1.28 m/s Peak Gradient: 7.40 mm[Hg], 5.83 mm[Hg] Right Atrium Right Atrium Systolic Pressure: 37.75 ml, 37.75 ml Dictated by: Zak Edwards M.D. on 05/30/2024 at 13:39 Approved by: Zak Edwards M.D. on 05/30/2024 at 13:46
[2024-05-30] MEDS: INSULIN DETEMIR 300 UNIT/3 ML INSULN.PEN 25 UNIT SUBQ (08:33)
[2024-05-30] MEDS: ASPIRIN 81 MG TABLET.DR PO (08:33)
[2024-05-30] MEDS: CARVEDILOL 12.5 MG TABLET PO (08:33)
--- NOTE | 2024-05-30 10:17 | CM.NOTE ---
Rounds made with Dr. Ramos, pt will discharge to home today. PT and OT will evaluate for any discharge needs.
--- NOTE | 2024-05-30 10:54 | PC.NURSE ---
Lizbet from [facility] called and states they were waiting on pacemaker interrogation to be completed. Product Safety Administrator explained this has not been completed as we do not perform that here. She states since patient is back to baseline, they will be signing off the case. They recommend patient follow up with cardiology for pacer interrogation
--- NOTE | 2024-05-30 12:09 | P.DS_ITS ---
DS: Providers Provider Date of admission: 05/28/24 13:44 Primary care physician: MARIAM KIRBY Admitting clinician: Shaikh Richard Attending physician on admission: Shaikh Richard Consults: 05/28/24 10:05 Consult to [facility] Routine Reason for consultation: weakness Has provider been notified: Yes 05/28/24 11:59 Occupational Therapy Eval and Treat Routine Reason for consultation: Ambulatory dysfunction/weakness Physical Therapy Eval and Treat Routine Reason for consultation: Ambulatory dysfunction/weakness 05/28/24 13:30 Consult to [facility] Routine Reason for consultation: STROKE Attending physician on discharge: Shaikh Richard Discharging clinician: Shaikh Richard Anticipated date of discharge: 05/30/24 DS: Diagnosis Discharge Diagnosis (1) Hypertensive emergency: (2) Suspected cerebrovascular accident (CVA): (3) CAD (coronary artery disease): Qualifiers: Associated angina: without angina Coronary Disease-Associated Artery/Lesion type: [place] artery [place] vs. 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 Upon arrival, she was noted to have HTN emergency with BP as high as 210/110. Given that she had acute neurological symptoms and suspicion of CVA, her BP was gradually lowered to allow permissive HTN. Patient had CTH, CTA head/neck - no acute finding on imaging. MRI could not be performed as she has a pacemaker. Patient was evaluated by [facility] and recommended outpatient MRI and pacemake r interrogation. She had an ECHO (unofficial reading) no acute finding on ECHO. Her neurological symptoms improved during the course of admission. Patient is medically stable for discharge. I will add Losartan 50 mg to her BP regimen paul because of her hx of T2 DM, CAD C/w coreg 12.5 mg q12. She will need ASA, Lipitor as before. She will need outpatient f/u with Neurology in 2-3 weeks after an MRI is performed. She will need f/u with Cardiology for pacemaker interrogation, adjusting her BP medications. Instructed to return to ED if new/worsening neurological signs or symptoms. Status at Discharge Functional status at discharge: independent ambulation Overall status at discharge: patient is back to baseline Time Spent with Patient Time attestation: Total time spent providing and/or coordinating discharge services: Time spent: greater than 30 minutes Exam Constitutional Vital Signs, click to edit/add: Last Vital Signs Temp 97.6 F 05/30/24 04:22 Pulse 62 05/30/24 11:56 Resp 18 05/30/24 04:22 BP 160/63 H 05/30/24 04:22 Pulse Ox 94 L 05/30/24 11:20 O2 Del Method Room Air 05/30/24 11:20 Documenting provider has reviewed patient's vital signs: yes Common normals: no apparent distress and oriented x3 General appearance: cooperative Respiratory Common normals: normal respiratory effort and clear to auscultation bilaterally Effort & inspection: able to speak in complete sentences Auscultation: clear to auscultation bilaterally Cardio Common normals: regular rate, S1 normal heart sound and S2 normal heart sound Rate: regular rate Heart sounds: S1 normal and S2 normal GI Common normals: Normal to inspection, nondistended, normoactive bowel sounds present, soft to palpation, non-tender and no hepatosplenomegaly Palpation: soft and no hepatosplenomegaly Extremity Common normals: no clubbing, cyanosis or edema Neuro Common normals: oriented x3, moves all extremities and no focal motor deficits Meningeal signs: no meningeal signs Coordination/balance: [id number] test normal, [id number] test normal and sways with eyes open Speech: speech normal Gait (neuro): ataxic Psych Common normals: mental status grossly normal, denies hallucinations, denies homicidal ideation and denies suicidal ideation DS: Data Data Completed and Pending Labs on day of discharge: Labs from last 24 hours 05/30/24 05/29/24 05/29/24 06:27 20:10 16:36 WBC 6.2 RBC 4.59 Hgb 12.1 Hct 38.3 MCV 83.4 MCH 26.4 L MCHC 31.6 RDW 14.3 Plt Count 183 MPV 9.5 Neut % (Auto) 47.5 Lymph % (Auto) 41.2 [place] % (Auto) 8.5 Eos % (Auto) 1.9 Baso % (Auto) 0.6 Neut # (Auto) 2.9 Lymph # (Auto) 2.6 [place] # (Auto) 0.5 Eos # (Auto) 0.1 Baso # (Auto) 0.0 Abs Immat Gran (auto) 0.02 Imm/Tot Granulo (auto) 0.3 Sodium 138 Potassium 4.1 Chloride 106 Carbon Dioxide 25.1 Anion Gap 11.0 BUN 14.0 Creatinine 0.90 Est GFR ( Amer) >60 Est GFR (Non-Af Amer) 60 BUN/Creatinine Ratio 15.6 Glucose 104 Calcium 9.3 Total Bilirubin 0.6 AST 20 ALT 21 Alkaline Phosphatase 78 Total Protein 6.5 Albumin 3.2 L Globulin 3.3 Albumin/Globulin Ratio 1.0 POC Glucose 85 209 H Discharge Plan Discharge Disposition: Home Health Service Discharge Medications: New losartan 50 mg tablet 50 mg PO DAILY Qty: 30 0RF Continued atorvastatin 80 mg tablet 80 mg PO .qhs carvedilol 12.5 mg tablet 12.5 mg PO Q12H cyproheptadine 4 mg tablet 2 mg PO .qhs insulin glargine [Lantus U-100 Insulin] 100 unit/mL solution 25 unit subcut QAM Janumet XR 100-1,000 mg tablet, ER multiphase 24 hr 1 tab PO DAILY latanoprost 0.005 % drops 1 drp OPHTHALMIC (EYE) .qhs prednisolone acetate 1 % drops,suspension 1 drp OPHTHALMIC (EYE) QID Rx Instructions: right eye ofloxacin 0.3 % drops 1 drp ophthalmic (eye) QID Rx Instructions: RIGHT EYE Print Language: Wolof Forms: Portal Instructions Follow Up Appointments: Jun.02 @ 1pm with Sharri Vick NP (Dr. Kirby's office) [phone] [facility] contact the patient to schedule a follow up appt. in the next couple days.
[2024-05-30 12:12] LABS: Glucometer 226 mg/dL (74-106)
[2024-05-30] MEDS: INSULIN ASPART 300 UNIT/3 ML PEN SUBQ (12:21)
--- NOTE | 2024-05-30 14:03 | SWNOTE1 ---
SW met with pt and family in room. Pt is independnet at home and lives by herself. Pt and family voiced they have no anticipated discharge needs at this time. Pt has a good support system at home. SW to follow as needed. Important Message from [employer] reviewed and discussed with patient. Pt. verbalized understanding and signed the form. Original given to patient and copy placed in patient?s chart.
--- NOTE | 2024-05-31 16:29 | CM.DCFOLLOWU ---
Person spoke with:patient How are you feeling?alright, still kind of tired,checking blood pressure every 2 hours How is your pain? none Did you understand your discharge instructions? yes Do you have any questions about your discharge instructions?no Were you given any prescriptions at discharge?yes Were you able to get your prescriptions filled?yes Do you understand how to take your medications as ordered?yes Do you have any questions about your follow up appointment and do you plan to keep your follow up appointment? no questions, follow ups reviewed Is there anything else that you would like to discuss?no Questions/Comments/Concerns/Other:none
== END 2024-05-30 14:35 | disposition home or self-care (01) | DRG 304 ==
LOC: ER 12:00 → ICU 13:46 → MS 05-29 14:08
PROVIDERS: Admitting Provider Internal Medicine; Emergency Provider Emergency Medicine; PCP Internal Medicine; Visit Provider Internal Medicine
DX: I16.1 Hypertensive emergency (principal); I63.9 Cerebral infarction, unspecified; I25.10 Atherosclerotic heart disease of native coronary artery without angina pectoris; E11.9 Type 2 diabetes mellitus without complications; E78.5 Hyperlipidemia, unspecified; Z95.0 Presence of cardiac pacemaker; Z79.4 Long term (current) use of insulin; Z79.899 Other long term (current) drug therapy; Z79.84 Long term (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 of oral hypoglycemic drugs; I25.2 Old myocardial infarction; Z85.42 Personal history of malignant neoplasm of other parts of uterus; Z95.5 Presence of coronary angioplasty implant and graft; Z98.49 Cataract extraction status, unspecified eye
CPT/HCPCS: 36415; 70450; 70496; 70498; 71045; 80053; 80061; 82948; 83036; 84484; 85025; 85610; 93005; 93306; 94761; 97161; 97165; 99285; J0360; J1650; Q3014; Q9967

== ENCOUNTER 2024-05-31 04:38 | Emergency (ER) | payer MEDICARE, SELFPAY ==
[2024-05-31] VITALS (19 sets, daily range): BP systolic 123–218; BP diastolic 63–100; PULSE 60–113; TEMP 36.6; O2SAT 95–99; BMI 23.0
--- OUTSIDE RECORDS SUMMARY | 2024-05-31 04:45 | XMS_ITS | CCD ---
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 Name Role Phone RDORICK BUTLER Primary Care Unavailable RODRICK BUTLER Referring [...] Provider MD Azra Cedillo Other Provider [phone] MD Jesse Sahu Other Provider JUAN Ramos [...] Unavailable WEST, DR CARMEN Kearns Consulting Unavailable AJCKIE, DR HOPE Consulting Unavailable OLEARY, JEAN-CLAUDE Consulting [...] EHAB Attending Unavailable ABBIE CRISOSTOMO Attending Unavailable COYD FORDE Referring Unavailable YEARTY, [place] Referring Unavailable [...] sources) Iodine Drug Allergy 2 Rash [facility] Repository (6 sources) Sulfonamides (Antibiotic); 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: [SULFA (SULFONAMIDE ANTIBIOTICS)] Drug allergy (disorder) 5 Blister [facility] Repository (4 sources) Shellfish; 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: [shellfish derived] Propensity to adverse reactions 2 Vomiting [facility] (1 source) Sulfonamides (Antibiotic) Propensity to adverse reactions mouth sores [facility] [email or web address] Other (1 source) shellfish/iodine Propensity to adverse reactions vomiting [facility] [email or web address] Other (1 source) empagliflozin Drug Allergy [facility] Repository (1 source) Iodine Drug Allergy 5 [facility] Repository (1 source) Shellfish Drug allergy (disorder) 5 [facility] Repository (1 source) Iodine Drug Allergy 2 [facility] Repository (1 source) Sulfonamides (Antibiotic) Drug allergy (disorder) 2 [facility] Repository (1 source) empagliflozin; 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: [EMPAGLIFLOZIN] Drug Allergy 2 [facility] Repository Medications Current Medications Medication Drug Class(es) [...] May 10, 2022 11:00pm FreeStyle Marianne 2 [place] - (1 source) Start: 09-23-2022 FreeStyle Libr e 2 [place] - as directed -- 5 x day for 365 days Sending to [facility] medical Aug, Active FreeStyle Marianne 2 S[place] - (1 source) Start: 09-23-2022 FreeStyle Libr e 2 Sensor - as directed in vitro q 14 days for 84 days Sending to [facility] medical Aug, Active furosemide 20 mg [...] Coronary arteriosclerosis; 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: [Atherosclerotic heart disease of [place] coronary artery without angina pectoris] Onset: 09-08-2022 [...] source) Long-term current use of insulin; 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: [retirement (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 of insulin] Episodic Other aftercare (2 sources) 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; 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: [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 INSULIN] Onset: 11-25-2022 Episodic Other aftercare (1 source) 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; 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: [CARE HOME CURRENT USE OF ASPIRIN] Onset: 11-25-2022 Episodic Other aftercare (1 source) Other alf (current) drug therapy; 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: [OTH CARE HOME CURRENT DRUG THERAPY] Onset: 11-25-2022 Episodic Other aftercare (1 source) retirement (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 of antithrombotics/ant iplatelets; 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: [CARE HOME ANTITHROMBOT/ANTIPL ATLETS] Onset: 11-25-2022 Episodic Other endocrine [...] Range Facility Office Visiton 09-16-2023 Follow-up visit [id number] Toya Hartmann 1940 F Date Provider Department Center 09/16/2023 ABBIE WEBER CARD [facility] Family History Problem Relation Age of Onset Hypertension Mother Coronary artery disease Mother Coronary artery disease Father Hypertension Father Hypertension Sister Coronary artery disease Brother Family Status - Relation Status Age at Mother Father Sister Brother Level of Service:45117 [place] POSTOP FOLLOW UP VISIT RELATED TO ORIGINAL PX Normal [facility] BASIC METABOLIC PANELon 08-31 Anion gap [Moles/Vol] 15 mmol/L Normal 7-20 [facility] Comment on above: Performed By: #### L [id number] #### [facility] (AKER) [address] [place] [address] Calcium [Mass/Vol] 10.1 mg/dL Normal 8.6-10.3 [facility] Comment on above: Performed By: #### L [id number] #### [facility] (BEAKER) [address] [place] [address] Chloride [Moles/Vol] 103 mmol/L Normal 98-107 [facility] Comment on above: Performed By: #### L [id number] #### [facility] (BEAKER) [address] [place] [address] CO2 [Moles/Vol] 21 mmol/L Normal 21-31 [facility] Comment on above: Performed By: #### L [id number] #### [facility] (BEAKER) [address] [place] [address] Creatinine [Mass/Vol] 0.95 mg/dL Normal 0.60-1.20 [facility] Comment on above: Performed By: #### L [id number] #### [facility] ([facility]) [address] [place] [address] GLOMERULAR FILTRATION RATE ML/MIN/1.73 SQ M.PREDICTED 59.1 mL/min/1.73m*2 Low >60.0 [facility] Comment on above: Result Comment: [facility]???s estimated glomerular filtration rate (eGFR) will no [...] group of individuals. Performed By: #### L [id number] #### [facility] ([facility]) [address] [place] [address] Glucose [Mass/Vol] 149 mg/dL High 70-100 [facility] Comment on above: Performed By: #### L [id number] #### [facility] ([facility]) [address] [place] [address] Potassium [Moles/Vol] 5.0 mmol/L Normal 3.5-5.1 [facility] Comment on above: Performed By: #### L [id number] #### [facility] ([facility]) [address] [place] [address] Sodium [Moles/Vol] 134 mmol/L Low 136-145 [facility] Comment on above: Performed By: #### L [id number] #### [facility] ([facility]) [address] [place] [address] Urea nitrogen [Mass/Vol] 22 mg/dL Normal 7-25 [facility] Comment on above: Performed By: #### L [id number] #### [facility] ([facility]) [address] [place] [address] UREA NITROGEN/CREATININE (MASS RATIO) IN SER/PLAS 23.2 Normal [facility] Comment on above: Performed By: #### L [id number] #### [facility] ([facility]) [address] [place] [address] CBCon 09-09-2023 Erythrocyte distribution width (RBC) [Ratio] 14.4 % Normal 11.5-15.0 [facility] Comment on above: Performed By: #### L [id number] #### [facility] ([facility]) [address] [place] [address] ERYTHROCYTE MEAN CORPUSCULAR HEMOGLOBIN CONCENTRATION (G/DL) BY AUTOMATED 31.3 g/dL Low 32.0-35.0 [facility] Comment on above: Performed By: #### L [id number] #### [facility] ([facility]) [address] [place] [address] Hematocrit (Bld) [Volume fraction] 42.5 % Normal 36.0-48.0 [facility] Comment on above: Performed By: #### L [id number] #### [facility] ([facility]) [address] [place] [address] Hemoglobin (Bld) [Mass/Vol] 13.3 g/dL Normal 12.0-15.0 [facility] Comment on above: Performed By: #### L [id number] #### [facility] ([facility]) [address] [place] [address] MCH (RBC) [Entitic mass] 26.2 pg Low 27.0-33.0 [facility] Comment on above: Performed By: #### L [id number] #### [facility] ([facility]) [address] [place] [address] MCV (RBC) [Entitic vol] 83.8 fL Normal 82.0-98.0 [facility] Comment on above: Performed By: #### L [id number] #### [facility] [address] [place] [address] PLATELETS (10*3/UL) IN BLOOD AUTOMATED COUNT 220 10*3/uL Normal 150-400 [facility] Comment on above: Performed By: #### L [id number] #### [facility] ([facility]) [address] [place] [address] RBC (Bld) [#/Vol] 5.07 10*6/uL High 3.80-5.00 [facility] Comment on above: Performed By: #### L [id number] #### [facility] ([facility]) [address] [place] [address] WBC (Bld) [#/Vol] 9.41 10*3/uL Normal 4.00-10.60 [facility] Comment on above: Performed By: #### L [id number] #### [facility] ([facility]) [address] [place] [address] MAGNESIUMon 09-09-2023 Magnesium [Mass/Vol] 1.7 mg/dL Low 1.9-2.7 [facility] Comment on above: Performed By: #### L [id number] #### [facility] ([facility]) [address] [place] [address] POCT GLUCOSE METER UNSOLICIT ED RESULTSon 09-09-2023 Glucose [Mass/Vol] 138 mg/dL High 70-105 [facility] Comment on above: Order Comment: Waive d Testing in the ED is performed under the ED CLIA certificate #[id number]. Result Comment: vcar mon Performed By: #### L [id number] #### [facility] ([facility]) [address] [place] [address] 30on 09-08-2023 30 The patient is Moderately Stable - Low risk of patient condition declining or worsening The patient's goals for the shift include comfort, rest The clinical goals for the shift include vss Over the shift, the patient did not make progress toward the following goals. Barriers to progression include na. Recommendations to address these barriers include na. Normal [facility] 30 Daily Case Managemen t Update Multidisciplinary rounds have been completed. Barriers to Discharge: S/p PPM placement. 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 Diet: Dietary Orders (From admission, onward) Start Ordered 09/08/23 0838 Diet NPO Diet effective now Comments: Sips with medications Question: Reason for NPO: Answer: Operation/Procedure 09/08/23 0837 09/08/23 0746 Special Kitchen Request Once Comments: Macanese toast with sugar free syrup, lite strawberry [...] of Consultation Consultation and Management 09/07/231957 Normal [facility] BASIC METABOLIC PANELon Anion gap [Moles/Vol] 10 mmol/L Normal 7-20 [facility] Comment on above: Performed By: #### L [id number] #### [facility] ([facility]) [address] [place] [address] Calcium [Mass/Vol] 9.3 mg/dL Normal 8.6-10.3 [facility] Comment on above: Performed By: #### L [id number] #### [facility] ([facility]) [address] [place] [address] Chloride [Moles/Vol] 108 mmol/L High 98-107 [facility] Comment on above: Performed By: #### L [id number] #### [facility] ([facility]) [address] [place] [address] CO2 [Moles/Vol] 20 mmol/L Low 21-31 [facility] Comment on above: Performed By: #### L [id number] #### [facility] ([facility]) [address] [place] [address] Creatinine [Mass/Vol] 0.97 mg/dL Normal 0.60-1.20 [facility] Comment on above: Performed By: #### L [id number] #### [facility] ([facility]) [address] [place] [address] GLOMERULAR FILTRATION RATE ML/MIN/1.73 SQ M.PREDICTED 57.6 mL/min/1.73m*2 Low >60.0 [facility] Comment on above: Result Comment: [facility]???s estimated glomerular filtration rate (eGFR) will no [...] individuals. Performed By: #### L [id number] #### [facility] ([facility]) [address] [place] [address] Glucose [Mass/Vol] 127 mg/dL High 70-100 [facility] Comment on above: Performed By: #### L [id number] #### [facility] ([facility]) [address] [place] [address] Potassium [Moles/Vol] 4.7 mmol/L Normal 3.5-5.1 [facility] Comment on above: Performed By: #### L [id number] #### [facility] ([facility]) [address] [place] [address] Sodium [Moles/Vol] 133 mmol/L Low 136-145 [facility] Comment on above: Performed By: #### L [id number] #### [facility] ([facility]) [address] [place] [address] Urea nitrogen [Mass/Vol] 22 mg/dL Normal 7-25 [facility] Comment on above: Performed By: #### L [id number] #### [facility] ([facility]) [address] [place] [address] UREA NITROGEN/CREATININE (MASS RATIO) IN SER/PLAS 22.7 Normal [facility] Comment on above: Performed By: #### L [id number] #### [facility] ([facility]) [address] [place] [address] CBCon 09-08-2023 Erythrocyte distribution width (RBC) [Ratio] 14.7 % Normal 11.5-15.0 [facility] Comment on above: Performed By: #### L [id number] #### [facility] ([facility]) [address] [place] [address] ERYTHROCYTE MEAN CORPUSCULAR HEMOGLOBIN CONCENTRATION (G/DL) BY AUTOMATED 31.7 g/dL Low 32.0-35.0 [facility] Comment on above: Performed By: #### L [id number] #### [facility] ([facility]) [address] [place] [address] Hematocrit (Bld) [Volume fraction] 42.3 % Normal 36.0-48.0 [facility] Comment on above: Performed By: #### L [id number] #### [facility] ([facility]) [address] [place] [address] Hemoglobin (Bld) [Mass/Vol] 13.4 g/dL Normal 12.0-15.0 [facility] Comment on above: Performed By: #### L [id number] #### [facility] ([facility]) [address] [place] [address] MCH (RBC) [Entitic mass] 26.7 pg Low 27.0-33.0 [facility] Comment on above: Performed By: #### L [id number] #### [facility] ([facility]) [address] [place] [address] MCV (RBC) [Entitic vol] 84.3 fL Normal 82.0-98.0 [facility] Comment on above: Performed By: #### L [id number] #### [facility] ([facility]) [address] [place] [address] PLATELETS (10*3/UL) IN BLOOD AUTOMATED COUNT 177 10*3/uL Normal 150-400 [facility] Comment on above: Performed By: #### L [id number] #### [facility] ([facility]) [address] [place] [address] RBC (Bld) [#/Vol] 5.02 10*6/uL High 3.80-5.00 [facility] Comment on above: Performed By: #### L [id number] #### [facility] ([facility]) [address] [place] [address] WBC (Bld) [#/Vol] 6.99 10*3/uL Normal 4.00-10.60 [facility] Comment on above: Performed By: #### L [id number] #### [facility] ([facility]) [address] [place] [address] HPon 09-08-2023 HP H&P reviewed. The patient was examined and there are no changes to the H&P.the patient was found to have RV lead migration, she will need lead revision Normal [facility] Orders Onlyon 09-08-2023 Orders Only [id number] HartmannGraciececilia Vidal 1940 F Date Provider Department Center 09/08/2023 [facility] HeartVAS Family History Problem Relation Age of Onset Hypertension Mother Coronary artery disease Mother Coronary artery disease Father Hypertension Father Hypertension Sister Coronary artery disease Brother Family Status - Relation Status Age at Mother Father Sister Brother Normal [facility] POCT GLUCOSE METER UNSOLICIT ED RESULTSon 09-08-2023 Glucose [Mass/Vol] 228 mg/dL High 70-105 [facility] Comment on above: Order Comment: Waive d Testing in the ED is performed under the ED CLIA certificate #[id number]. Result Comment: [email or web address] Performed By: #### L [id number] #### [facility] ([facility]) [address] [place] [address] Glucose [Mass/Vol] 128 mg/dL High 70-105 [facility] Comment on above: Order Comment: Waive d Testing in the ED is performed under the ED CLIA certificate #[id number]. Result Comment: vcar mon Performed By: #### L [id number] #### [facility] (BEAKER) [address] [place] [address] Glucose [Mass/Vol] 143 mg/dL High 70-105 [facility] Comment on above: Order Comment: Waive d Testing in the ED is performed under the ED CLIA certificate #[id number]. Result Comment: vcar mon Performed By: #### L [id number] #### [facility] (BEAKER) [address] [place] [address] Glucose [Mass/Vol] 136 mg/dL High 70-105 [facility] Comment on above: Order Comment: Waive d Testing in the ED is performed under the ED CLIA certificate #[id number]. Result Comment: vcar mon Performed By: #### L [id number] #### [facility] [address] [place] [address] 30on 09-07-2023 30 The patient is Moderately Stable - Low risk of patient condition declining or worsening The patient's goals for the shift include comfort The clinical goals for the shift include vss Normal [facility] 09-07-2023 ANES - Attestation signed by [...] attending and fellow. Additional Equipment Requests Normal [facility] HPon 09-07-2023 Cardiology History & Physical Chief Complaint: Dizziness HPI: Tere Hartmann is a 83 y.o. female with history of coronary artery disease, heart failure with reduced ejection fraction was transferred from [facility], the patient presented on 09/04 [...] coronary artery disease s/p PCI in [facility]. History of PCI in ramus and RCA, [...] medical history of CHF (congestive heart failure) ([facility]), Coronary artery disease, Diabetes mellitus ([facility]), and Hyperlipidemia. Surgical History She [...] Plan for PPM placement Vinny Bueno MD Ambulance Operations Supervisor - PGY4 [facility] NURSNOTEon 09-07-2023 NURSNOTE CHG wipes and betadine nasal swabs completed. [facility] Orders Onlyon 09-07-2023 Orders Only [id number] Hartmann,Shirle y A 1940 F Date Provider Department Center 09/07/2023 [facility] Family History Problem Relation Age of Onset Hypertension Mother Coronary artery disease Mother Coronary artery disease Father Hypertension Father Hypertension Sister Coronary artery disease Brother Family Status - Relation Status Age at Mother Father Sister Brother [facility] POCT GLUCOSE METER UNSOLICIT ED RESULTSon 09-07-2023 Glucose [Mass/Vol] 169 mg/dL High 70-105 [facility] Comment on above: Order Comment: Waive d Testing in the ED is performed under the ED CLIA certificate #[id number]. Result Comment: [email or web address] Performed By: #### L [id number] #### [facility] (BEAKER) [address] [place] [address] Glucose [Mass/Vol] 70 mg/dL Normal 70-105 [facility] Comment on above: Order Comment: Waive d Testing in the ED is performed under the ED CLIA certificate #[id number]. Result Comment: [email or web address] Performed By: #### L [id number] #### [facility] ([facility]) [address] [place] [address] Office Visiton 06-03-2023 Follow-up visit [id number] Toya Hartmann 1940 F Date Provider Department Center 06/03/2023 JOSH BRIZUELA CARD [facility] Family History Problem Relation Age of Onset Hypertension Mother Coronary artery disease Mother Coronary artery disease Father Hypertension Father Hypertension Sister Coronary artery disease Brother Family Status - Relation Status Age at Mother Father Sister Brother Level of Service:20649 [place] OFFICE/OUTPATIENT ESTABLISHED LOW MDM 20-29 MIN Normal [facility] Outside Recordson 05-13-2023 Outside Records [id number]# 1.00CD:127 Normal [facility] Physician Orderon 05-13-2023 Physician Order [id number]# 1.00CD:127 [facility] BNPon 11-24-2022 Natriuretic peptide B (Bld) [Mass/Vol] 703.0 pg/mL Normal <=1,800.0 [facility] Comment on above: Performed By: #### C [id number] #### [facility] [address] [address] [address] Kesha Aguero CBC AUTO DIFFon 11-24-2022 BASO # 0.0 103/ul Normal 0.0-0.1 [facility] Comment on above: Performed By: #### D DIM #### [facility] [address] [address] [address] Kesha Aguero Basophils/100 WBC (Bld) 0.5 % Normal 0.2-2.0 [facility] Comment on above: Performed By: #### D DIM #### [facility] [address] [place] [address] Dr. Kesha Aguero EO # 0.1 103/ul Normal 0.0-0.7 [facility] Comment on above: Performed By: #### D DIM #### [facility] [address] [place] [address] Dr. Kesha Aguero Eosinophils/100 WBC (Bld) 1.4 % Normal 0.9-7.0 [facility] Comment on above: Performed By: #### D DIM #### [facility] [address] [place] [address] Dr. Kesha Aguero Erythrocyte distribution width (RBC) [Ratio] 14.9 % Normal 11.0-15.0 [facility] Comment on above: Performed By: #### D DIM #### [facility] [address] [place] [address] Dr. Kesha Aguero Hematocrit (Bld) [Volume fraction] 45.3 % Normal 36.0-48.0 [facility] Comment on above: Performed By: #### D DIM #### [facility] [address] [place] [address] Dr. Kesha Aguero Hemoglobin (Bld) [Mass/Vol] 13.9 g/dL Normal 12.0-16.0 [facility] Comment on above: Performed By: #### D DIM #### [facility] [address] [place] [address] Dr. Kesha Aguero IG # 0.02 10e3/ul Normal 0.00-0.03 [facility] Comment on above: Performed By: #### D DIM #### [facility] [address] [place] [address] Dr. Kesha Aguero IG % 0.2 % Normal 0.0-0.5 [facility] Comment on above: Performed By: #### D DIM #### [facility] [address] [place] [address] Dr. Kesha Aguero LYMPH # 2.6 103/ul Normal 1.2-3.8 [facility] Comment on above: Performed By: #### D DIM #### [facility] [address] [place] [address] Dr. Kesha Aguero Lymphocytes/100 WBC (Bld) 30.3 % Normal 20.5-60.0 [facility] Comment on above: Performed By: #### D DIM #### [facility] [address] [place] [address] Dr. Kesha Aguero MANUAL DIFF REQ NO Normal [facility] Comment on above: Performed By: #### D DIM #### [facility] [address] [place] [address] Dr. Kesha Aguero MCH (RBC) [Entitic mass] 25.6 pg Critically low 26.7-34.0 [facility] Comment on above: Performed By: #### D DIM #### [facility] [address] [place] [address] Dr. Kesha Aguero MCHC (RBC) [Mass/Vol] 30.7 g/dL Normal 29.9-35.2 [facility] Comment on above: Performed By: #### D DIM #### [facility] [address] [place] [address] Dr. Kesha Aguero MCV (RBC) [Entitic vol] 83.3 fL Normal 81.0-99.0 [facility] Comment on above: Performed By: #### D DIM #### [facility] [address] [place] [address] Dr. Kesha Aguero MONO # 0.6 103/ul Normal 0.3-0.8 [facility] Comment on above: Performed By: #### D DIM #### [facility] [address] [place] [address] Dr. Kesha Aguero Monocytes/100 WBC (Bld) 6.5 % Normal 1.7-12.0 [facility] Comment on above: Performed By: #### D DIM #### [facility] [address] [place] [address] Dr. Kesha Aguero NEUT # 5.1 103/ul Normal 1.4-6.5 [facility] Comment on above: Performed By: #### D DIM #### [facility] [address] [address] [address] Kesha Aguero Neutrophils/100 WBC (Bld) 61.1 % Normal 43.0-75.0 [facility] Comment on above: Performed By: #### D DIM #### [facility] [address] [address] [address] Kesha Aguero Platelet mean volume (Bld) [Entitic vol] 9.6 fL Normal 9.5-13.5 [facility] Comment on above: Performed By: #### D DIM #### [facility] [address] [place] [address] Dr. Kesha Aguero PLT 208 103/ul Normal 150-450 [facility] Comment on above: Performed By: #### D DIM #### [facility] [address] [place] [address] Dr. Kesha Augero RBC 5.44 106/ul Critically high 4.20-5.40 [facility] Comment on above: Performed By: #### D DIM #### [facility] [address] [place] [address] Dr. Kesha Aguero WBC 8.4 103/ul Normal 4.0-11.0 [facility] Comment on above: Performed By: #### D DIM #### [facility] [address] [place] [address] Dr. Kesha Aguero CULTURE BLOODon 11-24-2022 Microscopic examination of blood, culture Culture Observations: NO GROWTH AT 5 DAYS. Isolate 1 BC_BA_NA Normal [facility] Comment on above: Performed By: #### B [id number] #### [facility] [address] [place] [address] Dr. Kesha Aguero Microscopic examination of blood, culture Culture Observations: NO GROWTH AT 5 DAYS. Isolate 1 BC_BA_NA Normal [facility] Comment on above: Performed By: #### C VDTBH #### [facility] [address] [place] [address] Dr. Kesha Aguero CULTURE URINEon 11-24-2022 CULTURE URINE Culture Observations : LIGHT GROWTH OF MIXED GENITAL SANTY. NO POTENTIAL PATHOGENS SEEN. Normal [facility] Comment on above: Performed By: #### C VDTBH #### [facility] [address] [place] [address] Dr. Kesha SAM URINE PROFILEon 3 Bilirubin Ql (U) Negative Normal NEGATIVE [facility] Comment on above: Performed By: #### D DIM #### [facility] [address] [place] [address] Dr. Kesha Aguero Clarity (U) CLEAR Normal CLEAR [facility] Comment on above: Performed By: #### D DIM #### [facility] [address] [place] [address] Dr. Kesha Aguero Color (U) DK. YELLOW Normal YELLOW [facility] Comment on above: Performed By: #### D DIM #### [facility] [address] [place] [address] Dr. Kesha Aguero ERUAHCurtis A micrscopic examination will be performed if indicated. Normal [facility] Comment on above: Performed By: #### D DIM #### [facility] [address] [place] [address] Dr. Kesha Aguero Glucose Ql (U) >1000 Abnormal NEGATIVE [facility] Comment on above: Performed By: #### D DIM #### [facility] [address] [place] [address] Dr. Kesha Aguero Hemoglobin Ql (U) Negative Normal NEGATIVE [facility] Comment on above: Performed By: #### D DIM #### [facility] [address] [place] [address] Dr. Kesha Aguero Ketones Ql (U) Negative Normal NEGATIVE [facility] Comment on above: Performed By: #### D DIM #### [facility] [address] [place] [address] Dr. Kesha Aguero LEUKOCYTES Negative Normal NEGATIVE [facility] Comment on above: Performed By: #### D DIM #### [facility] [address] [place] [address] Dr. Kesha Aguero Nitrite Ql (U) Positive Abnormal NEGATIVE [facility] Comment on above: Performed By: #### D DIM #### [facility] [address] [place] [address] Dr. Kesha Aguero pH (U) 6.0 [pH] Normal 5-9 [facility] Comment on above: Performed By: #### D DIM #### [facility] [address] [place] [address] Dr. Kesha Aguero SPEC GRAVITY <=1.005 Abnormal 1.005-<=1.02 5 [facility] Comment on above: Performed By: #### D DIM #### [facility] [address] [place] [address] Dr. Kesha Aguero UA PROTEIN Negative Normal NEGATIVE/ TRACE [facility] Comment on above: Performed By: #### D DIM #### [facility] [address] [place] [address] Dr. Kesha Aguero UR MICRO IND INDICATED Normal [facility] Comment on above: Performed By: #### D DIM #### [facility] [address] [place] [address] Dr. Kesha Aguero Urobilinogen Qn (U) 0.2 {Allison'U}/dL Normal 0.2 - 1. 0 [facility] Comment on above: Performed By: #### D DIM #### [facility] [address] [place] [address] Dr. Kesha Aguero LACTATE/LACTIC ACIDon 2022 Lactate [Moles/Vol] 1.0 mmol/L Normal 0.4-2.0 [facility] Comment on above: Performed By: #### C VDTBH #### [facility] [address] [place] [address] Dr. Kesha Aguero PROF 14(COMP METB)on 023 Albumin [Mass/Vol] 3.8 g/dL Normal 3.4-5.0 [facility] Comment on above: Performed By: #### C VDTBH #### [facility] [address] [place] [address] Dr. Kesha Aguero Albumin/Globulin [Mass ratio] 1.1 {ratio} Normal [facility] Comment on above: Performed By: #### C VDTBH #### [facility] [address] [place] [address] Dr. Kesha Aguero ALP [Catalytic activity/Vol] 118 U/L Critically high 46-116 [facility] Comment on above: Performed By: #### C VDTBH #### [facility] [address] [place] [address] Dr. Kesha Aguero ALT [Catalytic activity/Vol] 41 U/L Normal 14-59 [facility] Comment on above: Performed By: #### C VDTBH #### [facility] [address] [address] [address] Kesha Aguero Anion gap [Moles/Vol] 14.3 mmol/L Normal [facility] Comment on above: Performed By: #### C VDTBH #### [facility] [address] [place] [address] Dr. Kesha Aguero AST [Catalytic activity/Vol] 23 U/L Normal 15-37 [facility] Comment on above: Performed By: #### C VDTBH #### [facility] [address] [place] [address] Dr. Kesha Aguero Bilirubin [Mass/Vol] 0.5 mg/dL Normal 0.2-1.0 [facility] Comment on above: Performed By: #### C VDTBH #### [facility] [address] [place] [address] Dr. Kesha Aguero Calcium [Mass/Vol] 9.3 mg/dL Normal 8.5-10.1 [facility] Comment on above: Performed By: #### C VDTBH #### [facility] [address] [place] [address] Dr. Kesha Aguero Chloride [Moles/Vol] 106 mmol/L Normal 98-107 [facility] Comment on above: Performed By: #### C VDTBH #### [facility] [address] [address] [address] Kesha Aguero CO2 [Moles/Vol] 26.4 mmol/L Normal 21.0-32.0 [facility] Comment on above: Performed By: #### C VDTBH #### [facility] [address] [address] [address] Kehsa Aguero Creatinine [Mass/Vol] 0.92 mg/dL Normal 0.55-1.02 [facility] Comment on above: Performed By: #### C VDTBH #### [facility] [address] [address] [address] Kesha Aguero EGFR-AF GUYANESE >60 Normal >=60 [facility] Comment on above: Performed By: #### C VDTBH #### [facility] [address] [address] [address] Kesha Aguero EGFR-NON AF GUYANESE 58 mL/min/1.73m2 Critically low >=60 [facility] Comment on above: Performed By: #### C VDTBH #### [facility] [address] [address] [address] Kesha Aguero Globulin (S) [Mass/Vol] 3.5 g/dL Normal [facility] Comment on above: Performed By: #### C VDTBH #### [facility] [address] [address] [address] Kesha Aguero Glucose [Mass/Vol] 184 mg/dL Critically high 74-106 [facility] Comment on above: Performed By: #### C VDTBH #### [facility] [address] [address] [address] Kesha Aguero Potassium [Moles/Vol] 4.7 mmol/L Normal 3.5-5.1 [facility] Comment on above: Performed By: #### C VDTBH #### [facility] [address] [address] [address] Kesha Aguero Protein [Mass/Vol] 7.3 g/dL Normal 6.4-8.2 [facility] Comment on above: Performed By: #### C VDTBH #### [facility] [address] [address] [address] Kesha Aguero Sodium [Moles/Vol] 142 mmol/L Normal 136-145 [facility] Comment on above: Performed By: #### C VDTBH #### [facility] [address] [address] [address] Kesha Aguero Urea nitrogen [Mass/Vol] 18.0 mg/dL Normal 7.0-18.0 [facility] Comment on above: Performed By: #### C VDTBH #### [facility] [address] [place] [address] Dr. Kesha Aguero Urea nitrogen/Creatinine [Mass ratio] 19.6 mg/mg Normal [facility] Comment on above: Performed By: #### C VDTBH #### [facility] [address] [place] [address] Dr. Kesha Aguero TROPONIN, HIGH SENSITIVITYon 11-24-2022 HSTROP 9.2 pg/mL Normal 4.0-51.3 [facility] Comment on above: Result Comment: CUT- OFF POINTS HAVE BEEN ESTABLISHED BASED ON THE FOURTH UNIVERSAL DEFINITIONS OF MYOCARDIAL INFARCTION. THE UPPER REFERENCE LIMIT (URL) OF TROPONIN, DEFINED THE 99TH PERCENTILE OF cTnI DISTRIBUTION IN A REFERENCE POPULATION, HAS BEEN CONFIRMED THE DECISION THRESHOLD FOR NM DIAGNOSIS. Performed By: #### A CETON #### [facility] [address] [place] [address] Dr. Kesha Aguero HSTROP 9.5 pg/mL Normal 4.0-51.3 [facility] Comment on above: Result Comment: CUT- OFF POINTS HAVE BEEN ESTABLISHED BASED ON THE FOURTH UNIVERSAL DEFINITIONS OF MYOCARDIAL INFARCTION. THE UPPER REFERENCE LIMIT (URL) OF TROPONIN, DEFINED THE 99TH PERCENTILE OF cTnI DISTRIBUTION IN A REFERENCE POPULATION, HAS BEEN CONFIRMED THE DECISION THRESHOLD FOR NM DIAGNOSIS. Performed By: #### C VDTBH #### [facility] [address] [place] [address] Dr. Kesha Aguero URINE MICROSCOPIC ONLYon BACTERIA TRACE Abnormal NONE SEEN [facility] Comment on above: Performed By: #### C VDTBH #### [facility] [address] [place] [address] Dr. Kesha Aguero Bacteria identified Cx Nom (U) INDICATED Normal [facility] Comment on above: Performed By: #### C VDTBH #### [facility] [address] [place] [address] Dr. Kesha Aguero CAST NONE SEEN Normal NONE SEEN [facility] Comment on above: Performed By: #### C VDTBH #### [facility] [address] [place] [address] Dr. Kesha Aguero Crystals LM Nom (Urine sed) NONE SEEN Normal NONE SEEN [facility] Comment on above: Performed By: #### C VDTBH #### [facility] [address] [place] [address] Dr. Kesha Aguero Epithelial cells LM Ql (Urine sed) FEW Abnormal NONE SEEN /RARE [facility] Comment on above: Performed By: #### C VDTBH #### [facility] [address] [place] [address] Dr. Kesha Aguero MUCOUS NONE SEEN Normal NONE SEEN [facility] Comment on above: Performed By: #### C VDTBH #### [facility] [address] [place] [address] Dr. Kesha Aguero RBC 0-2 Normal 0-2 [facility] Comment on above: Performed By: #### C VDTBH #### [facility] [address] [place] [address] Dr. Kesha Aguero WBC 2-5 Abnormal NONE SEEN [facility] Comment on above: Performed By: #### C VDTBH #### [facility] [address] [place] [address] Dr. Kesha Aguero XR DEXA BONE DENSITYon [...] by: [place] Date: 2022-09-29 12:45 Normal [facility] CT HEAD WO CONon 08-29-2022 CT [...] of these findings. Electronically authenticated by: EDWIGE ZAVALTEA Date: 2022-08-29 14:04 Normal [facility] POINT OF CARE GLUCOSEon 12-3 Glucose [Mass/Vol] 279 mg/dL Critically high 74-106 T [facility] Comment on above: Performed By: #### C [facility] #### [facility] [address] [address] [address] Kesha Aguero Glucose [Mass/Vol] 65 mg/dL Critically low 74-106 [facility] Comment on above: Performed By: #### C VDTBH #### [facility] [address] [place] [address] Dr. Kesha Aguero BNPon 08-28-2022 Natriuretic peptide B (Bld) [Mass/Vol] 673.0 pg/mL Normal <=1,800.0 [facility] Comment on above: Performed By: #### C VDTBH #### [facility] [address] [place] [address] Dr. Kesha Aguero CARDIAC KARLIE ADMITon 022 CK [Catalytic activity/Vol] 33 U/L Normal 26-192 [facility] Comment on above: Performed By: #### C VDTBH #### [facility] [address] [place] [address] Dr. Kesha Aguero CK.MB [Mass/Vol] 0.58 ng/mL Normal <=3.60 [facility] Comment on above: Performed By: #### C VDTBH #### [facility] [address] [place] [address] Dr. Kesha Aguero HSTROP 11.2 pg/mL Normal 4.0-51.3 [facility] Comment on above: Result Comment: CUT- OFF POINTS HAVE BEEN ESTABLISHED BASED ON THE FOURTH UNIVERSAL DEFINITIONS OF MYOCARDIAL INFARCTION. THE UPPER REFERENCE LIMIT (URL) OF TROPONIN, DEFINED THE 99TH PERCENTILE OF cTnI DISTRIBUTION IN A REFERENCE POPULATION, HAS BEEN CONFIRMED THE DECISION THRESHOLD FOR NM DIAGNOSIS. Performed By: #### C VDTBH #### [facility] [address] [place] [address] Dr. Kesha Aguero ELIAS 48 ng/mL Normal 9-82 [facility] Comment on above: Performed By: #### C VDTBH #### [facility] [address] [place] [address] Dr. Kesha Aguero CBC AUTO DIFFon 08-28-2022 BASO # 0.1 103/ul Normal 0.0-0.1 [facility] Comment on above: Performed By: #### C VDTBH #### [facility] [address] [place] [address] Dr. Kesha Aguero Basophils/100 WBC (Bld) 0.6 % Normal 0.2-2.0 [facility] Comment on above: Performed By: #### C VDTBH #### [facility] [address] [place] [address] Dr. Kesha Aguero EO # 0.2 103/ul Normal 0.0-0.7 [facility] Comment on above: Performed By: #### C VDTBH #### [facility] [address] [place] [address] Dr. Kesha Aguero Eosinophils/100 WBC (Bld) 2.3 % Normal 0.9-7.0 [facility] Comment on above: Performed By: #### C VDTBH #### [facility] [address] [place] [address] Dr. Kesha Aguero Erythrocyte distribution width (RBC) [Ratio] 15.7 % Critically high 11.0-15.0 [facility] Comment on above: Performed By: #### C VDTBH #### [facility] [address] [place] [address] Dr. Kesha Aguero Hematocrit (Bld) [Volume fraction] 44.6 % Normal 36.0-48.0 [facility] Comment on above: Performed By: #### C VDTBH #### [facility] [address] [place] [address] Dr. Kesha Aguero Hemoglobin (Bld) [Mass/Vol] 14.4 g/dL Normal 12.0-16.0 [facility] Comment on above: Performed By: #### C VDTBH #### [facility] [address] [place] [address] Dr. Kesha Aguero IG # 0.02 10e3/ul Normal 0.00-0.03 [facility] Comment on above: Performed By: #### C VDTBH #### [facility] [address] [place] [address] Dr. Kesha Aguero IG % 0.3 % Normal 0.0-0.5 [facility] Comment on above: Performed By: #### C VDTBH #### [facility] [address] [place] [address] Dr. Kesha Aguero LYMPH # 3.5 103/ul Normal 1.2-3.8 [facility] Comment on above: Performed By: #### C VDTBH #### [facility] [address] [place] [address] Dr. Kesha Aguero Lymphocytes/100 WBC (Bld) 43.6 % Normal 20.5-60.0 [facility] Comment on above: Performed By: #### C VDTBH #### [facility] [address] [place] [address] Dr. Kesha Aguero MANUAL DIFF REQ NO Normal [facility] Comment on above: Performed By: #### C VDTBH #### [facility] [address] [place] [address] Dr. Kesha Aguero MCH (RBC) [Entitic mass] 25.9 pg Critically low 26.7-34.0 [facility] Comment on above: Performed By: #### C VDTBH #### [facility] [address] [place] [address] Dr. Kesha Aguero MCHC (RBC) [Mass/Vol] 32.3 g/dL Normal 29.9-35.2 [facility] Comment on above: Performed By: #### C VDTBH #### [facility] [address] [place] [address] Dr. Kesha Aguero MCV (RBC) [Entitic vol] 80.4 fL Critically low 81.0-99. 0 [facility] Comment on above: Performed By: #### C VDTBH #### [facility] [address] [place] [address] Dr. Kesha Aguero MONO # 0.5 103/ul Normal 0.3-0.8 [facility] Comment on above: Performed By: #### C VDTBH #### [facility] [address] [place] [address] Dr. Kesha Aguero Monocytes/100 WBC (Bld) 6.0 % Normal 1.7-12.0 [facility] Comment on above: Performed By: #### C VDTBH #### [facility] [address] [place] [address] Dr. Kesha Aguero NEUT # 3.8 103/ul Normal 1.4-6.5 [facility] Comment on above: Performed By: #### C VDTBH #### [facility] [address] [place] [address] Dr. Kesha Aguero Neutrophils/100 WBC (Bld) 47.2 % Normal 43.0-75.0 [facility] Comment on above: Performed By: #### C VDTBH #### [facility] [address] [place] [address] Dr. Kesha Aguero Platelet mean volume (Bld) [Entitic vol] 9.7 fL Normal 9.5-13.5 [facility] Comment on above: Performed By: #### C VDTBH #### [facility] [address] [place] [address] Dr. Kesha Aguero PLT 269 103/ul Normal 150-450 [facility] Comment on above: Performed By: #### C VDTBH #### [facility] [address] [place] [address] Dr. Kesha Aguero RBC 5.55 106/ul Critically high 4.20-5.40 [facility] Comment on above: Performed By: #### C VDTBH #### [facility] [address] [place] [address] Dr. Kesha Aguero WBC 8.0 103/ul Normal 4.0-11.0 [facility] Comment on above: Performed By: #### C VDTBH #### [facility] [address] [place] [address] Dr. Kesha Aguero [facility]01 SARS-CoV-2 (COVID-19) RNA YARA+probe Ql (Unsp spec) Not detected Normal NOT DETECTED [facility] Comment on above: Result Comment: [...] for this test is supported by the Facility Worker of Health and Human Service's declaration that [...] used). Performed By: #### C VDTBH #### [facility] [address] [place] [address] Dr. Kesha Aguero POINT OF CARE GLUCOSEon 08-01 Glucose [Mass/Vol] 157 mg/dL Critically high 74-106 [facility] Comment on above: Performed By: #### D DIM #### [facility] [address] [place] [address] Dr. Kesha Aguero Glucose [Mass/Vol] 170 mg/dL Critically high -106 [facility] Comment on above: Performed By: #### C VDTBH #### [facility] [address] [place] [address] Dr. Kesha Aguero PROF CHEM 8 (BAS METB)on Anion gap [Moles/Vol] 14.2 mmol/L Normal [facility] Comment on above: Performed By: #### C VDTBH #### [facility] [address] [place] [address] Dr. Kesha Aguero Calcium [Mass/Vol] 9.8 mg/dL Normal 8.5-10.1 [facility] Comment on above: Performed By: #### C VDTBH #### [facility] [address] [place] [address] Dr. Kesha Aguero Chloride [Moles/Vol] 104 mmol/L Normal 98-107 [facility] Comment on above: Performed By: #### C VDTBH #### [facility] [address] [address] [address] Kesha Aguero CO2 [Moles/Vol] 25.6 mmol/L Normal 21.0-32.0 [facility] Comment on above: Performed By: #### C VDTBH #### [facility] [address] [address] [address] Kesha Aguero Creatinine [Mass/Vol] 1.00 mg/dL Normal 0.55-1.02 [facility] Comment on above: Performed By: #### C VDTBH #### [facility] [address] [address] [address] Kesha Aguero EGFR-AF GUYANESE >60 Normal >=60 [facility] Comment on above: Performed By: #### C VDTBH #### [facility] [address] [address] [address] Kesha Aguero EGFR-NON AF GUYANESE 53 mL/min/1.73m2 Critically low >=60 [facility] Comment on above: Performed By: #### C VDTBH #### [facility] [address] [address] [address] Kesha Aguero Glucose [Mass/Vol] 151 mg/dL Critically high 74-106 [facility] Comment on above: Performed By: #### C VDTBH #### [facility] [address] [address] [address] Kesha Aguero Potassium [Moles/Vol] 3.8 mmol/L Normal 3.5-5.1 [facility] Comment on above: Performed By: #### C VDTBH #### [facility] [address] [address] [address] Kesha Aguero Sodium [Moles/Vol] 140 mmol/L Normal 136-145 [facility] Comment on above: Performed By: #### C VDTBH #### [facility] [address] [address] [address] Kesha Aguero Urea nitrogen [Mass/Vol] 19.0 mg/dL Critically high 7.0-18.0 [facility] Comment on above: Performed By: #### C VDTBH #### [facility] [address] [place] [address] Dr. Kesha Aguero Urea nitrogen/Creatinine [Mass ratio] 19.0 mg/mg Normal [facility] Comment on above: Performed By: #### C VDTBH #### [facility] [address] [place] [address] Dr. Kesha Aguero PROTIMEon 08-28-2022 INR Coag (PPP) [Relative time] 0.97 {INR} Normal [facility] Comment on above: Performed By: #### C VDTBH #### [facility] [address] [place] [address] Dr. Kesha Aguero INR GUIDELINES SEE BELOW Normal [facility] Comment on above: Result Comment: GUY RED INR: 2.0 - 3.0 CONDITIONS NOT LISTED BELOW 2.5 - 3.5 FOR PROSTHETIC HEART VALVE REPLACEMENT 2.5 - 3.5 RECURRENT THROMBOSIS Performed By: #### C VDTBH #### [facility] [address] [place] [address] Dr. Kesha Aguero PT Coag (PPP) [Time] 10.5 s Normal 9.0-11.6 [facility] Comment on above: Performed By: #### C VDTBH #### [facility] [address] [place] [address] Dr. Kesha Aguero PTTon 08-28-2022 aPTT Coag (Bld) [Time] 27.1 s Normal 22.3-36.2 [facility] Comment on above: Performed By: #### C VDTBH #### [facility] [address] [place] [address] Dr. Kesha Aguero TROPONIN, HIGH SENSITIVITYon 08-28-2022 HSTROP 14.8 pg/mL Normal 4.0-51.3 [facility] Comment on above: Result Comment: CUT- OFF POINTS HAVE BEEN ESTABLISHED BASED ON THE FOURTH UNIVERSAL DEFINITIONS OF MYOCARDIAL INFARCTION. THE UPPER REFERENCE LIMIT (URL) OF TROPONIN, DEFINED THE 99TH PERCENTILE OF cTnI DISTRIBUTION IN A REFERENCE POPULATION, HAS BEEN CONFIRMED THE DECISION THRESHOLD FOR NM DIAGNOSIS. Performed By: #### C VDTBH #### [facility] [address], [place] [address] Dr. Kesha Aguero HSTROP 13.5 pg/mL Normal 4.0-51.3 [facility] Comment on above: Result Comment: CUT- OFF POINTS HAVE BEEN ESTABLISHED BASED ON THE FOURTH UNIVERSAL DEFINITIONS OF MYOCARDIAL INFARCTION. THE UPPER REFERENCE LIMIT (URL) OF TROPONIN, DEFINED THE 99TH PERCENTILE OF cTnI DISTRIBUTION IN A REFERENCE POPULATION, HAS BEEN CONFIRMED THE DECISION THRESHOLD FOR NM DIAGNOSIS. Performed By: #### D DIM #### [facility] [address], [place] [address] Dr. Kesha Aguero US JCARLOS DOP LEG [...] by: CARMEN LOTT Date: 2022-08-28 13:22 Normal [facility] XR CHEST 1 Von 08-28-2022 XR CHEST 1 V EXAM: CHEST 1 VIEW HISTORY: CHEST PAIN, UNSPECIFIED TECHNIQUE: Chest, one view. COMPARISON: 06/06/2022. FINDINGS: Lungs are clear. No focal consolidation, pleural effusion, or pneumothorax. Pulmonary vasculature is within normal limits. Cardiomediastinal silhouette is normal. IMPRESSION: 1. No acute cardiopulmonary disease. Electronically authenticated by: JEAN-CLAUDE OLEARY Date: 2022-08-28 08:[address] [facility] [address] ABDOMEN WO/W CONon 2021 CT [...] [place] Date: 2022-08-18 22:44 Normal [facility] CREATININEon 08-18-2022 Creatinine [Mass/Vol] 1.04 mg/dL Critically high 0.55-1.02 [facility] Comment on above: Performed By: #### C VDTB #### [facility] [address] [address] [address] Kesha Aguero EGFR-AF GUYANESE >60 Normal >=60 [facility] Comment on above: Performed By: #### C VDTBH #### [facility] [address] [address] [address] Kesha Aguero EGFR-NON AF GUYANESE 51 mL/min/1.73m2 Critically low >=60 [facility] Comment on above: Performed By: #### C VDTBH #### [facility] [address] [address] [address] Kesha Aguero ECHOCARDIO M/2D COMPLETEon 1 10-19-2021 ECHOCARDIO M/2D COMPLETE Patient: TERE HARTMANN Exam Date: 08/18/2022 : 1940 Gender:F Ordering : ABBIE CRISOSTOMO Admission #: [id number] Family : DR RODRICK BUTLER M.D. Order #: [id number] CLICK HERE TO VIEW EXAM ECHOCARDIOGRAM REPORT [...] Jackson M.D. on 08/21/2022 at 15:17 Normal [facility] ALDOSTERONE: RENIN RATIOon 1 Aldos/Renin Ratio 2.5 Normal 0.0-30.0 [facility] Comment on above: Result Comment: Unit s: ng/dL per ng/mL/hr Performed By: #### A LDOREN #### [facility] [address] [address] [address] Kesha Aguero Aldosterone 7.4 ng/dL Normal 0.0-30.0 [facility] Comment on above: Performed By: #### A LDOREN #### [facility] [address] [place] [address] Dr. Kesha Aguero Renin Activity, Plasma 3.015 ng/mL/hr Normal 0.167-5.3 80 [facility] Comment on above: Performed By: #### A LDOREN #### [facility] [address] [place] [address] Dr. Kesha Aguero METANEPHRINES PLASMA FREEon 06-18-2022 Metanephrine, Pl 11.8 pg/mL Normal 0.0-88.0 [facility] Comment on above: Performed By: #### A CETON #### [facility] [address] [place] [address] Dr. Kesha Aguero Normetanephrine, Pl 103.3 pg/mL Normal 0.0-297.2 [facility] Comment on above: Performed By: #### A CETON #### [facility] [address] [place] [address] Dr. Kesha Aguero CORTISOLon 06-12-2022 Cortisol 5.5 ug/dL Normal [facility] Comment on above: Result Comment: Clement isol AM 6.2 - 19.4 Cortisol PM 2.3 - 11.9 Performed By: #### C VDTBH #### [facility] [address] [place] [address] Dr. Kesha Aguero PROF CHEM 8 (BAS METB)on Anion gap [Moles/Vol] 14.4 mmol/L Normal [facility] Comment on above: Performed By: #### A LDOREN #### [facility] [address] [place] [address] Dr. Kesha Aguero Calcium [Mass/Vol] 9.6 mg/dL Normal 8.5-10.1 [facility] Comment on above: Performed By: #### A LDOREN #### [facility] [address] [place] [address] Dr. Kesha Aguero Chloride [Moles/Vol] 103 mmol/L Normal 98-107 [facility] Comment on above: Performed By: #### A LDOREN #### [facility] [address] [place] [address] Dr. Kesha Aguero CO2 [Moles/Vol] 24.3 mmol/L Normal 21.0-32.0 [facility] Comment on above: Performed By: #### A LDOREN #### [facility] [address] [address] [address] Kesha Aguero Creatinine [Mass/Vol] 1.24 mg/dL Critically high 0.55-1.02 [facility] Comment on above: Performed By: #### A LDOREN #### [facility] [address] [address] [address] Kesha Aguero EGFR-AF GUYANESE 50 mL/min/1.73m2 Critically low >=60 [facility] Comment on above: Performed By: #### A LDOREN #### [facility] [address] [address] [address] Kesha Aguero EGFR-NON AF GUYANESE 41 mL/min/1.73m2 Critically low >=60 [facility] Comment on above: Performed By: #### A LDOREN #### [facility] [address] [place] [address] Dr. Kesha Aguero Glucose [Mass/Vol] 215 mg/dL Critically high 74-106 [facility] Comment on above: Performed By: #### A LDOREN #### [facility] [address] [place] [address] Dr. Kesha Aguero Potassium [Moles/Vol] 4.7 mmol/L Normal 3.5-5.1 [facility] Comment on above: Performed By: #### A LDOREN #### [facility] [address] [place] [address] Dr. Kesha Aguero Sodium [Moles/Vol] 137 mmol/L Normal 136-145 [facility] Comment on above: Performed By: #### A LDOREN #### [facility] [address] [address] [address] Kesha Aguero Urea nitrogen [Mass/Vol] 21.0 mg/dL Critically high 7.0-18.0 [facility] Comment on above: Performed By: #### A LDOREN #### [facility] [address] [place] [address] Dr. Kesha Aguero Urea nitrogen/Creatinine [Mass ratio] 16.9 mg/mg Normal [facility] Comment on above: Performed By: #### A LDOREN #### [facility] [address] [place] [address] Dr. Kesha Aguero CARDIAC KARLIE 3-6on 2 CK [Catalytic activity/Vol] 77 U/L Normal 26-192 [facility] Comment on above: Performed By: #### D DIM #### [facility] [address] [place] [address] Dr. Kesha Aguero CK.MB [Mass/Vol] 1.64 ng/mL Normal <=3.60 [facility] Comment on above: Performed By: #### D DIM #### [facility] [address] [place] [address] Dr. Kesha Aguero HSTROP 16.0 pg/mL Normal 4.0-51.3 [facility] Comment on above: Result Comment: CUT- OFF POINTS HAVE BEEN ESTABLISHED BASED ON THE FOURTH UNIVERSAL DEFINITIONS OF MYOCARDIAL INFARCTION. THE UPPER REFERENCE LIMIT (URL) OF TROPONIN, DEFINED THE 99TH PERCENTILE OF cTnI DISTRIBUTION IN A REFERENCE POPULATION, HAS BEEN CONFIRMED THE DECISION THRESHOLD FOR NM DIAGNOSIS. Performed By: #### D DIM #### [facility] [address] [place] [address] Dr. Kesha Aguero CARDIAC KARLIE ADMITon 022 CK [Catalytic activity/Vol] 86 U/L Normal 26-192 [facility] Comment on above: Performed By: #### A CETON #### [facility] [address] [place] [address] Dr. Kesha Aguero CK.MB [Mass/Vol] 2.10 ng/mL Normal <=3.60 [facility] Comment on above: Performed By: #### A CETON #### [facility] [address] [place] [address] Dr. Kesha Aguero HSTROP 13.3 pg/mL Normal 4.0-51.3 [facility] Comment on above: Result Comment: CUT- OFF POINTS HAVE BEEN ESTABLISHED BASED ON THE FOURTH UNIVERSAL DEFINITIONS OF MYOCARDIAL INFARCTION. THE UPPER REFERENCE LIMIT (URL) OF TROPONIN, DEFINED THE 99TH PERCENTILE OF cTnI DISTRIBUTION IN A REFERENCE POPULATION, HAS BEEN CONFIRMED THE DECISION THRESHOLD FOR NM DIAGNOSIS. Performed By: #### A CETON #### [facility] [address] [place] [address] Dr. Kesha Aguero ELIAS 78 ng/mL Normal 9-82 [facility] Comment on above: Performed By: #### A CETON #### [facility] [address] [place] [address] Dr. Kesha Aguero CBC AUTO DIFFon 06-06-2022 BASO # 0.0 103/ul Normal 0.0-0.1 [facility] Comment on above: Performed By: #### C VDTBH #### [facility] [address] [place] [address] Dr. Kesha Aguero Basophils/100 WBC (Bld) 0.4 % Normal 0.2-2.0 [facility] Comment on above: Performed By: #### C VDTBH #### [facility] [address] [place] [address] Dr. Kesha Aguero EO # 0.1 103/ul Normal 0.0-0.7 [facility] Comment on above: Performed By: #### C VDTBH #### [facility] [address] [place] [address] Dr. Kesha Aguero Eosinophils/100 WBC (Bld) 1.8 % Normal 0.9-7.0 [facility] Comment on above: Performed By: #### C VDTBH #### [facility] [address] [place] [address] Dr. Kesha Aguero Erythrocyte distribution width (RBC) [Ratio] 13.9 % Normal 11.0-15.0 [facility] Comment on above: Performed By: #### C VDTBH #### [facility] [address] [place] [address] Dr. Kesha Aguero Hematocrit (Bld) [Volume fraction] 40.7 % Normal 36.0-48.0 [facility] Comment on above: Performed By: #### C VDTBH #### [facility] [address] [place] [address] Dr. Kesha Aguero Hemoglobin (Bld) [Mass/Vol] 12.9 g/dL Normal 12.0-16.0 [facility] Comment on above: Performed By: #### C VDTBH #### [facility] [address] [place] [address] Dr. Kesha Aguero IG # 0.01 10e3/ul Normal 0.00-0.03 [facility] Comment on above: Performed By: #### C VDTBH #### [facility] [address] [place] [address] Dr. Kesha Aguero IG % 0.1 % Normal 0.0-0.5 [facility] Comment on above: Performed By: #### C VDTBH #### [facility] [address] [place] [address] Dr. Kesha Aguero LYMPH # 2.6 103/ul Normal 1.2-3.8 [facility] Comment on above: Performed By: #### C VDTBH #### [facility] [address] [place] [address] Dr. Kesha Aguero Lymphocytes/100 WBC (Bld) 33.6 % Normal 20.5-60.0 [facility] Comment on above: Performed By: #### C VDTBH #### [facility] [address] [place] [address] Dr. Kesha Aguero MANUAL DIFF REQ NO Normal [facility] Comment on above: Performed By: #### C VDTBH #### [facility] [address] [place] [address] Dr. Kesha Aguero MCH (RBC) [Entitic mass] 26.5 pg Critically low 26.7-34.0 [facility] Comment on above: Performed By: #### C VDTBH #### [facility] [address] [place] [address] Dr. Kesha Aguero MCHC (RBC) [Mass/Vol] 31.7 g/dL Normal 29.9-35.2 [facility] Comment on above: Performed By: #### C VDTBH #### [facility] [address] [place] [address] Dr. Kesha Aguero MCV (RBC) [Entitic vol] 83.6 fL Normal 81.0-99.0 [facility] Comment on above: Performed By: #### C VDTBH #### [facility] [address] [place] [address] Dr. Kesha Aguero MONO # 0.6 103/ul Normal 0.3-0.8 [facility] Comment on above: Performed By: #### C VDTBH #### [facility] [address] [place] [address] Dr. Kesha Aguero Monocytes/100 WBC (Bld) 7.7 % Normal 1.7-12.0 [facility] Comment on above: Performed By: #### C VDTBH #### [facility] [address] [place] [address] Dr. Kesha Aguero NEUT # 4.3 103/ul Normal 1.4-6.5 [facility] Comment on above: Performed By: #### C VDTBH #### [facility] [address] [place] [address] Dr. Kesha Aguero Neutrophils/100 WBC (Bld) 56.4 % Normal 43.0-75.0 [facility] Comment on above: Performed By: #### C VDTBH #### [facility] [address] [place] [address] Dr. Kesha Aguero Platelet mean volume (Bld) [Entitic vol] 11.2 fL Normal 9.5-13.5 [facility] Comment on above: Performed By: #### C VDTBH #### [facility] [address] [place] [address] Dr. Kesha Aguero PLT 267 103/ul Normal 150-450 [facility] Comment on above: Performed By: #### C VDTBH #### [facility] [address] [place] [address] Dr. Kesha Aguero RBC 4.87 106/ul Normal 4.20-5.40 [facility] Comment on above: Performed By: #### C VDTBH #### [facility] [address] [place] [address] Dr. Kesha Aguero WBC 7.7 103/ul Normal 4.0-11.0 [facility] Comment on above: Performed By: #### C [facility] #### [facility] [address], [place] [address] Dr. Kesha Aguero CTA CHEST WO W [...] CHRISTINA MESSINA Date: 2022-06-06 03:54 Normal [facility] Covid-19 PCR (CVDTBH)on SARS-CoV-2 (COVID-19) RNA YARA+probe Ql (Unsp spec) Not detected Normal NOT DETECTED [facility] Comment on above: Result Comment: [...] for this test is supported by the Prospect of Health and Human Service's declaration that [...] used). Performed By: #### C VDTBH #### [facility] [address] [place] [address] Dr. Kesha Aguero D-DIMERon 06-06-2022 D-DIMER 0.86 mg/L FEU Critically high <=0.59 [facility] Comment on above: Performed By: #### D DIM #### [facility] [address] [place] [address] Dr. Kesha Aguero D-DIMER COMMENTS SEE BELOW Normal [facility] Comment on above: Result Comment: Incr eases [...] hospitalization. Performed By: #### D DIM #### [facility] [address] [place] [address] Dr. Kesha Aguero PROF CHEM 8 (BAS METB)on Anion gap [Moles/Vol] 13.1 mmol/L Normal [facility] Comment on above: Performed By: #### A CETON #### [facility] [address] [address] [address] Kesha Aguero Calcium [Mass/Vol] 10.0 mg/dL Normal 8.5-10.1 [facility] Comment on above: Performed By: #### A CETON #### [facility] [address] [address] [address] Kesha Aguero Chloride [Moles/Vol] 106 mmol/L Normal 98-107 [facility] Comment on above: Performed By: #### A CETON #### [facility] [address] [place] [address] Dr. Kesha Aguero CO2 [Moles/Vol] 24.9 mmol/L Normal 21.0-32.0 [facility] Comment on above: Performed By: #### A CETON #### [facility] [address] [address] [address] Kesha Aguero Creatinine [Mass/Vol] 1.14 mg/dL Critically high 0.55-1.02 [facility] Comment on above: Performed By: #### A CETON #### [facility] [address] [address] [address] Kesha Aguero EGFR-AF GUYANESE 55 mL/min/1.73m2 Critically low >=60 [facility] Comment on above: Performed By: #### A CETON #### [facility] [address] [address] [address] Kesha Aguero EGFR-NON AF GUYANESE 46 mL/min/1.73m2 Critically low >=60 [facility] Comment on above: Performed By: #### A CETON #### [facility] [address] [address] [address] Kesha Aguero Glucose [Mass/Vol] 181 mg/dL Critically high 74-106 [facility] Comment on above: Performed By: #### A CETON #### [facility] [address] [address] [address] Kesha Aguero Potassium [Moles/Vol] 4.0 mmol/L Normal 3.5-5.1 [facility] Comment on above: Performed By: #### A CETON #### [facility] [address] [address] [address] Kesha Aguero Sodium [Moles/Vol] 140 mmol/L Normal 136-145 [facility] Comment on above: Performed By: #### A CETON #### [facility] [address] [address] [address] Kesha Aguero Urea nitrogen [Mass/Vol] 24.0 mg/dL Critically high 7.0-18.0 [facility] Comment on above: Performed By: #### A CETON #### [facility] [address] [address] [address] Kesha Ageuro Urea nitrogen/Creatinine [Mass ratio] 21.1 mg/mg Normal [facility] Comment on above: Performed By: #### A CETON #### [facility] [address] [address] [address] Kesha Aguero TROPONIN, HIGH SENSITIVITYon 06-06-2022 HSTROP 16.7 pg/mL Normal 4.0-51.3 [facility] Comment on above: Result Comment: CUT- OFF POINTS HAVE BEEN ESTABLISHED BASED ON THE FOURTH UNIVERSAL DEFINITIONS OF MYOCARDIAL INFARCTION. THE UPPER REFERENCE LIMIT (URL) OF TROPONIN, DEFINED THE 99TH PERCENTILE OF cTnI DISTRIBUTION IN A REFERENCE POPULATION, HAS BEEN CONFIRMED THE DECISION THRESHOLD FOR NM DIAGNOSIS. Performed By: #### A LDOREN #### [facility] [address] [address] [address] Kesha Aguero XR CHEST 1 Von [...] CHRISTINA MESSINA Date: 2022-06-06 02:23 Normal [facility] Activated partial thrombopla stin time (aPTT) in platelet poor plasma by coagulation aOrdered By: Herminia Lawler on 05-11-2022 aPTT Coag (PPP) [Time] 43.7 s 25.1-36.5 [facility] Creatinine and Glomerular fi ltration rate.predicted panel (S/P/Bld)Ordered By: Herminia Lawler on 05-11-2022 Creatinine [Mass/Vol] 0.97 mg/dL 0.44-1.03 [facility] Estimated glomerular filtrat ion rate (GFR) non- AmericanOrdered By: Herminia Lawler on 05-11-2022 GFR/1.73 sq M.predicted among non-blacks MDRD (S/P/Bld) [Vol rate/Area] 55 mL/Min [facility] Glucose Glucometer (BldC) [M ass/Vol]Ordered By: Herminia Lawler on 05-11-2022 Glucose [Mass/Vol] 281 mg/dL [facility] Comment on above: Random Glucose Refer ence Range is dependent on time and content of last meal. Glucose of more than 200 mg/dL in a nonstressed, ambulatory subject supports the diagnosis of Diabetes Mellitus. Laboratory - Chemistry and C hemistry - challengeOrdered By: Herminia Lawler on 05-11-2022 Magnesium [Mass/Vol] 1.7 mg/dL 1.6-2.6 [facility] No Panel InformationOrdered By: Herminia Lawler on 05-11-2022 Estimated GFR () > 60 mL/Min [facility] Comment on above: GFR estimated refere nce range: According to KDOQI guidelines, <60 ml/min/1.73m2 is sufficient to diagnose a patient with chronic kidney disease. Pharmacy Creatinine Clearance (Chem 42.73 [facility] Serum or plasma anion gap de terminationOrdered By: Herminia Lawler on 05-11-2022 Anion gap [Moles/Vol] 13.6 mmol/L 6.0-15.0 [facility] Serum or plasma calcium kristi urement (mass/volume)Ordered By: Herminia Lawler on 05-11-2022 Calcium [Mass/Vol] 9.8 mg/dL 8.2-10.2 [facility] Serum or plasma chloride dorys surement (moles/volume)Ordered By: Herminia Lawler on 05-11-2022 Chloride [Moles/Vol] 107 mmol/L 95-114 [facility] Serum or plasma glucose kristi urement (mass/volume)Ordered By: Herminia Lawler on 05-11-2022 Glucose [Mass/Vol] 187 mg/dL 70-100 [facility] Comment on above: ADA recommended refe rence range Random Glucose Reference Range is dependent on time and content of last meal. Glucose of more than 200 mg/dL in a nonstressed, ambulatory subject supports the diagnosis of Diabetes Mellitus. Serum or plasma potassium me asurement (moles/volume)Ordered By: Herminia Lawler on 05-11-2022 Potassium [Moles/Vol] 3.8 mmol/L 3.5-5.1 [facility] Serum or plasma sodium measu rement (moles/volume)Ordered By: Herminia Lawler on 05-11-2022 Sodium [Moles/Vol] 137 mmol/L 136-146 [facility] Serum or plasma total carbon dioxide measurement (moles/volume)Ordered By: Herminia Lawler on 05-11-2022 CO2 [Moles/Vol] 20.2 mmol/L 22.0-30.0 [facility] Serum or plasma urea nitroge n measurement (mass/volume)Ordered By: Herminia Lawler on 05-11-2022 Urea nitrogen [Mass/Vol] 21 mg/dL 9- [facility] Troponin I.cardiac [Mass/vol ume] in Serum or Plasma by High sensitivity methodOrdered By: Itz Townsend on 05-11-2022 Troponin I.cardiac High sensitivity method [Mass/Vol] 97 pg/mL 0-15 [facility] Comment on above: Results called at 0602 on 05/11/22 Albumin [Mass/volume] in Ser um or PlasmaOrdered By: Obaydah Daromar on 05-10-2022 Albumin [Mass/Vol] 2.9 g/dL 3.2-5.5 [facility] Basophils Auto (Bld) [#/Vol] Ordered By: Obaydah Daromar on 05-10-2022 Basophils (Bld) [#/Vol] 0.2 10*3/uL 0.0-0.2 [facility] Basophils/100 WBC Auto (Bld) Ordered By: Obaydah Daromar on 05-10-2022 Basophils/100 WBC (Bld) 2.8 % . [facility] Blood hemoglobin measurement (mass/volume)Ordered By: Obdarindaethan Perezomar on 05-10-2022 Hemoglobin (Bld) [Mass/Vol] 12.4 g/dL 11.8-15.4 [facility] Blood leukocytes automated c ount (number/volume)Ordered By: Obdarindaethan Perezomar on 05-10-2022 WBC (Bld) [#/Vol] 7.0 10*3/uL 4.5-11.0 [facility] Creatine kinase [Enzymatic a ctivity/volume] in Serum or PlasmaOrdered By: Darrion Gilbert on 05-10-2022 CK [Catalytic activity/Vol] 48 U/L 22-269 [facility] Eosinophils Auto (Bld) [#/Vo l]Ordered By: Obdarindaethan Perezomar on 05-10-2022 Eosinophils (Bld) [#/Vol] 0.2 10*3/uL 0.0-0.45 [facility] Eosinophils/100 WBC Auto (Bl d)Ordered By: Obdarindah Daromar on 05-10-2022 Eosinophils/100 WBC (Bld) 2.7 % . [facility] Erythrocyte distribution wid th Auto (RBC) [Ratio]Ordered By: Obdarindah Daromar on 05-10-2022 Erythrocyte distribution width (RBC) [Ratio] 15.2 % 11.9-15.3 [facility] Globulin Calc (S) [Mass/Vol] Ordered By: Obdarindah Daromar on 05-10-2022 Globulin (S) [Mass/Vol] 2.9 g/dL [facility] Hematocrit Auto (Bld) [Volum e fraction]Ordered By: Obaydah Daromar on 05-10-2022 Hematocrit (Bld) [Volume fraction] 37.8 % 34.0-46.4 [facility] Laboratory - Hematology and Cell countsOrdered By: Obaydah Daromar on 05-10-2022 Nucleated RBC/100 WBC (Bld) [Ratio] 0.3 % 0-0.5 [facility] Lymphocytes Auto (Bld) [#/Vo l]Ordered By: Obaydah Daromar on 05-10-2022 Lymphocytes (Bld) [#/Vol] 3.0 10*3/uL 1.00-4.8 [facility] Lymphocytes/100 WBC Auto (Bl d)Ordered By: Obaydah Daromar on 05-10-2022 Lymphocytes/100 WBC (Bld) 42.4 % . [facility] MCH Auto (RBC) [Entitic mass ]Ordered By: Obaydah Daromar on 05-10-2022 MCH (RBC) [Entitic mass] 26.4 pg 24.7-34.3 [facility] MCHC Auto (RBC) [Mass/Vol]Or dered By: Obaydah Daromar on 05-10-2022 MCHC (RBC) [Mass/Vol] 32.8 g/dL 32.0-35.0 [facility] MCV Auto (RBC) [Entitic vol] Ordered By: Obaydah Daromar on 05-10-2022 MCV (RBC) [Entitic vol] 80.5 fL 80-100 [facility] Monocytes Auto (Bld) [#/Vol] Ordered By: Obaydah Daromar on 05-10-2022 Monocytes (Bld) [#/Vol] 0.4 10*3/uL 0.0-0.8 [facility] Monocytes/100 WBC Auto (Bld) Ordered By: Obaydah Daromar on 05-10-2022 Monocytes/100 WBC (Bld) 6.4 % . [facility] Neutrophils Auto (Bld) [#/Vo l]Ordered By: Herminia Tysonr on 05-10-2022 Neutrophils (Bld) [#/Vol] 3.2 10*3/uL 1.8-7.7 [facility] Neutrophils/100 WBC Auto (Bl d)Ordered By: Herminia Perezomar on 05-10-2022 Neutrophils/100 WBC (Bld) 45.7 % . [facility] No Panel InformationOrdered By: Herminia Lawler on 05-10-2022 Bedside Glucose Comment Glu2: cleaned meter [facility] Platelet mean volume Auto (B ld) [Entitic vol]Ordered By: Herminia Tysonr on 05-10-2022 Platelet mean volume (Bld) [Entitic vol] 8.3 fL 6.3-10.7 [facility] Platelets Auto (Bld) [#/Vol] Ordered By: Herminia Lawler on 05-10-2022 Platelets (Bld) [#/Vol] 236 10*3/uL 150-450 [facility] Protein [Mass/volume] in Ser um or PlasmaOrdered By: Herminia Lawler on 05-10-2022 Protein [Mass/Vol] 5.8 g/dL 6.1-7.9 [facility] RBC Auto (Bld) [#/Vol]Ordere d By: Herminia Tysonr on 05-10-2022 RBC (Bld) [#/Vol] 4.70 10*6/uL 3.60-5.00 [facility] Serum or plasma alanine landa otransferase measurement without P-5'-P (enzymatic activiOrdered By: Herminia Lawler on 05-10-2022 ALT No additional P-5'-P [Catalytic activity/Vol] 18 U/L 10-60 [facility] Serum or plasma albumin/glob ulin mass ratioOrdered By: Herminia Lawler on 05-10-2022 Albumin/Globulin [Mass ratio] 1.0 {ratio} [facility] Serum or plasma alkaline jama sphatase measurement (enzymatic activity/volume)Ordered By: Herminia Lawler on 05-10-2022 ALP [Catalytic activity/Vol] 75 U/L 32-92 [facility] Serum or plasma aspartate am inotransferase measurement (enzymatic activity/volume)Ordered By: Herminia Lawler on 05-10-2022 AST [Catalytic activity/Vol] 18 U/L 10-42 [facility] Serum or plasma creatine kin ase MB (CKMB)/total creatine kinase (CK) ratio by calculaOrdered By: Darrion Gilbert on 05-10-2022 CK.MB Calc [Catalytic fraction] 6.8 % 0.00-2.50 [facility] Serum or plasma creatine kin ase MB measurement (mass/volume)Ordered By: Darrion Gilbert on 05-10-2022 CK.MB [Mass/Vol] 3.3 ng/mL 0.6-6.3 [facility] Serum or plasma total biliru bin measurement (mass/volume)Ordered By: Herminia Lawler on 05-10-2022 Bilirubin [Mass/Vol] 0.4 mg/dL 0.3-1.2 [facility] ACETONE SERUMon 05-09-2022 ACETONE Negative Normal NEGATIVE [facility] Comment on above: Performed By: #### A CETON #### [facility] [address] [place] [address] Dr. Kesha Aguero CBC AUTO DIFFon 05-09-2022 BASO # 0.0 103/ul Normal 0.0-0.1 [facility] Comment on above: Performed By: #### A CETON #### [facility] [address] [place] [address] Dr. Kesha Aguero Basophils/100 WBC (Bld) 0.5 % Normal 0.2-2.0 [facility] Comment on above: Performed By: #### A CETON #### [facility] [address] [place] [address] Dr. Kesha Aguero EO # 0.1 103/ul Normal 0.0-0.7 [facility] Comment on above: Performed By: #### A CETON #### [facility] [address] [place] [address] Dr. Kesha Aguero Eosinophils/100 WBC (Bld) 1.5 % Normal 0.9-7.0 [facility] Comment on above: Performed By: #### A CETON #### [facility] [address] [place] [address] Dr. Kesha Aguero Erythrocyte distribution width (RBC) [Ratio] 14.1 % Normal 11.0-15.0 [facility] Comment on above: Performed By: #### A CETON #### [facility] [address] [place] [address] Dr. Kesha Aguero Hematocrit (Bld) [Volume fraction] 40.7 % Normal 36.0-48.0 [facility] Comment on above: Performed By: #### A CETON #### [facility] [address] [place] [address] Dr. Kesha Agureo Hemoglobin (Bld) [Mass/Vol] 13.0 g/dL Normal 12.0-16.0 [facility] Comment on above: Performed By: #### A CETON #### [facility] [address] [place] [address] Dr. Kesha Aguero IG # 0.01 10e3/ul Normal 0.00-0.03 [facility] Comment on above: Performed By: #### A CETON #### [facility] [address] [place] [address] Dr. Kesha Aguero IG % 0.1 % Normal 0.0-0.5 [facility] Comment on above: Performed By: #### A CETON #### [facility] [address] [place] [address] Dr. Kesha Aguero LYMPH # 2.6 103/ul Normal 1.2-3.8 [facility] Comment on above: Performed By: #### A CETON #### [facility] [address] [place] [address] Dr. Kesha Aguero Lymphocytes/100 WBC (Bld) 33.0 % Normal 20.5-60.0 [facility] Comment on above: Performed By: #### A CETON #### [facility] [address] [place] [address] Dr. Kesha Aguero MANUAL DIFF REQ NO Normal [facility] Comment on above: Performed By: #### A CETON #### [facility] [address] [place] [address] Dr. Kesha Aguero MCH (RBC) [Entitic mass] 26.5 pg Critically low 26.7-34.0 [facility] Comment on above: Performed By: #### A CETON #### [facility] [address] [place] [address] Dr. Kesha Aguero MCHC (RBC) [Mass/Vol] 31.9 g/dL Normal 29.9-35.2 [facility] Comment on above: Performed By: #### A CETON #### [facility] [address] [place] [address] Dr. Kesha Aguero MCV (RBC) [Entitic vol] 82.9 fL Normal 81.0-99.0 [facility] Comment on above: Performed By: #### A CETON #### [facility] [address] [place] [address] Dr. Kesha Aguero MONO # 0.6 103/ul Normal 0.3-0.8 [facility] Comment on above: Performed By: #### A CETON #### [facility] [address] [place] [address] Dr. Kesha Aguero Monocytes/100 WBC (Bld) 7.1 % Normal 1.7-12.0 [facility] Comment on above: Performed By: #### A CETON #### [facility] [address] [place] [address] Dr. Kesha Aguero NEUT # 4.5 103/ul Normal 1.4-6.5 [facility] Comment on above: Performed By: #### A CETON #### [facility] [address] [place] [address] Dr. Kesha Aguero Neutrophils/100 WBC (Bld) 57.8 % Normal 43.0-75.0 [facility] Comment on above: Performed By: #### A CETON #### [facility] [address] [place] [address] Dr. Kesha Aguero Platelet mean volume (Bld) [Entitic vol] 10.4 fL Normal 9.5-13.5 [facility] Comment on above: Performed By: #### A CETON #### [facility] [address] [place] [address] Dr. Kesha Aguero PLT 208 103/ul Normal 150-450 [facility] Comment on above: Performed By: #### A CETON #### [facility] [address] [place] [address] Dr. Kesha Aguero RBC 4.91 106/ul Normal 4.20-5.40 [facility] Comment on above: Performed By: #### A CETON #### [facility] [address] [place] [address] Dr. Kesha Aguero WBC 7.9 103/ul Normal 4.0-11.0 [facility] Comment on above: Performed By: #### A CETON #### [facility] [address] [place] [address] Dr. Kesha Aguero CTA ABD/PELVIS WO W [...] [place] Date: 2022-05-09 07:19 Normal [facility] Cholesterol [Mass/volume] in Serum or PlasmaOrdered By: Herminia Lawler on 05-09-2022 Cholesterol [Mass/Vol] 112 mg/dL 140-200 [facility] Comment on above: Chol less than 200 m g/dl low risk Chol 201-239 mg/dl borderline risk Chol 240 mg/dl and greater high risk Cholesterol in LDL Calc [Mas s/Vol]Ordered By: Herminia Lawler on 05-09-2022 Cholesterol in LDL [Mass/Vol] 51 mg/dL 0-100 [facility] Comment on above: LDL ATP III CLASSIFI CATION LDL less than 100 mg/dL Optimal LDL 100-129 mg/dL Near or above optimal LDL 130-159 mg/dL Borderline high LDL 160-189 mg/dL High LDL greater than 189 mg/dL Very high Cholesterol in VLDL Calc [Ma ss/Vol]Ordered By: Herminia Lawler on 05-09-2022 Cholesterol in VLDL [Mass/Vol] 31 mg/dL [facility] Covid-19 PCR (CVDTB)on SARS-CoV-2 (COVID-19) RNA YARA+probe Ql (Unsp spec) Not detected Normal NOT DETECTED [facility] Comment on above: Result Comment: When [...] for this test is supported by the Facility Worker of Health and Human Service's declaration that [...] used). Performed By: #### C VDTB #### [facility] [address] [place] [address] Dr. Kesha Aguero Glucose mean value [Mass/vol ume] in Blood Estimated from glycated hemoglobinOrdered By: Herminia Lawler on 05-09-2022 Average glucose Estimated from glycated hemoglobin (Bld) [Mass/Vol] 263 mg/dL [facility] Hemoglobin A1c percentageOrd ered By: Herminia Lawler on 05-09-2022 HbA1c (Bld) [Mass fraction] 10.8 % 4.3-5.6 [facility] Comment on above: Increased risk for d iabetes: 5.7 - 6.4 diabetes: >6.4 glycemic control for adults with diabetes: <7.0 LIPASEon 05-09-2022 Lipase [Catalytic activity/Vol] 287.0 U/L Normal 73.0-393.0 [facility] Comment on above: Performed By: #### C VDTB #### [facility] [address] [place] [address] Dr. Kesha Aguero Laboratory - CoagulationOrde red By: Herminia Lawler on 05-09-2022 PT Coag (PPP) [Time] 11.6 s 9.0-12.9 [facility] POINT OF CARE GLUCOSEon Glucose [Mass/Vol] 387 mg/dL Critically high 74-106 [facility] Comment on above: Performed By: #### C VDTBH #### [facility] [address] [place] [address] Dr. Kesha Aguero Glucose [Mass/Vol] 432 mg/dL Critically high 74-106 [facility] Comment on above: Performed By: #### P OCGLUC #### [facility] [address] [place] [address] Dr. Kesha Aguero PROF 14(COMP METB)on 022 Albumin [Mass/Vol] 3.5 g/dL Normal 3.4-5.0 [facility] Comment on above: Performed By: #### C VDTBH #### [facility] [address] [place] [address] Dr. Kesha Aguero Albumin/Globulin [Mass ratio] 1.0 {ratio} Normal [facility] Comment on above: Performed By: #### C VDTBH #### [facility] [address] [place] [address] Dr. Kesha Aguero ALP [Catalytic activity/Vol] 115 U/L Normal 46-116 [facility] Comment on above: Performed By: #### C VDTBH #### [facility] [address] [place] [address] Dr. Kesha Aguero ALT [Catalytic activity/Vol] 24 U/L Normal 14-59 [facility] Comment on above: Performed By: #### C VDTBH #### [facility] [address] [place] [address] Dr. Kesha Aguero Anion gap [Moles/Vol] 15.3 mmol/L Normal [facility] Comment on above: Performed By: #### C VDTBH #### [facility] [address] [place] [address] Dr. Kesha Aguero AST [Catalytic activity/Vol] 16 U/L Normal 15-37 [facility] Comment on above: Performed By: #### C VDTBH #### [facility] [address] [place] [address] Dr. Kesha Aguero Bilirubin [Mass/Vol] 0.4 mg/dL Normal 0.2-1.0 [facility] Comment on above: Performed By: #### C VDTBH #### [facility] [address] [place] [address] Dr. Kesha Aguero Calcium [Mass/Vol] 9.6 mg/dL Normal 8.5-10.1 [facility] Comment on above: Performed By: #### C VDTBH #### [facility] [address] [place] [address] Dr. Kesha Aguero Chloride [Moles/Vol] 102 mmol/L Normal 98-107 [facility] Comment on above: Performed By: #### C VDTBH #### [facility] [address] [place] [address] Dr. Kesha Aguero CO2 [Moles/Vol] 19.7 mmol/L Critically low 21.0-32.0 [facility] Comment on above: Performed By: #### C VDTBH #### [facility] [address] [place] [address] Dr. Kesha Aguero Creatinine [Mass/Vol] 1.22 mg/dL Critically high 0.55-1.02 [facility] Comment on above: Performed By: #### C VDTBH #### [facility] [address] [place] [address] Dr. Kesha Aguero EGFR-AF GUYANESE 51 mL/min/1.73m2 Critically low >=60 [facility] Comment on above: Performed By: #### C VDTBH #### [facility] [address] [place] [address] Dr. eKsha Aguero EGFR-NON AF GUYANESE 42 mL/min/1.73m2 Critically low >=60 [facility] Comment on above: Performed By: #### C VDTBH #### [facility] [address] [place] [address] Dr. Kesha Aguero Globulin (S) [Mass/Vol] 3.6 g/dL Normal [facility] Comment on above: Performed By: #### C VDTBH #### [facility] [address] [address] [address] Kesha Aguero Glucose [Mass/Vol] 499 mg/dL Critically high 74-106 [facility] Comment on above: Performed By: #### C VDTBH #### [facility] [address] [address] [address] Kesha Aguero Potassium [Moles/Vol] 4.0 mmol/L Normal 3.5-5.1 [facility] Comment on above: Performed By: #### C VDTBH #### [facility] [address] [place] [address] Dr. Kesha Aguero Protein [Mass/Vol] 7.1 g/dL Normal 6.4-8.2 [facility] Comment on above: Performed By: #### C VDTBH #### [facility] [address] [place] [address] Dr. Kesha Aguero Sodium [Moles/Vol] 133 mmol/L Critically low 136-145 [facility] Comment on above: Performed By: #### C VDTBH #### [facility] [address] [place] [address] Dr. Kesha Aguero Urea nitrogen [Mass/Vol] 27.0 mg/dL Critically high 7.0-18.0 [facility] Comment on above: Performed By: #### C VDTBH #### [facility] [address] [place] [address] Dr. Kesha Aguero Urea nitrogen/Creatinine [Mass ratio] 22.1 mg/mg Normal [facility] Comment on above: Performed By: #### C VDTBH #### [facility] [address] [place] [address] Dr. Kesha Aguero Phosphate [Mass/volume] in S jefferson or PlasmaOrdered By: Herminia Lawler on 05-09-2022 Phosphate [Mass/Vol] 3.5 mg/dL 2.5-4.6 [facility] Platelet poor plasma interna tional normalized ratio (INR) by coagulation assay (relatOrdered By: Herminia Lawler on 05-09-2022 INR Coag (PPP) [Relative time] 1.0 {INR} [facility] Comment on above: INR Therapeutic Rang e [...] HDL [Mass/Vol] 30 mg/dL 35-85 [facility] Comment on above: HDL CHOL ATP-III CLA SSIFICATION Cardiovascular Risk HDL > or equal to 60 mg/dL LOW HDL < 40 mg/dL HIGH Serum or plasma total choles terol/high density lipoprotein (HDL) cholesterol mass ratOrdered By: Herminia Lawler on 05-09-2022 Cholesterol.total/Shey sterol in HDL [Mass ratio] 3.7 {ratio} <5.0 [facility] TROPONIN, HIGH SENSITIVITYon 05-09-2022 HSTROP 603.9 pg/mL Critically high 4.0-51.3 [facility] Comment on above: Result Comment: CUT- OFF POINTS HAVE BEEN ESTABLISHED BASED ON THE FOURTH UNIVERSAL DEFINITIONS OF MYOCARDIAL INFARCTION. THE UPPER REFERENCE LIMIT (URL) OF TROPONIN, DEFINED THE 99TH PERCENTILE OF cTnI DISTRIBUTION IN A REFERENCE POPULATION, HAS BEEN CONFIRMED THE DECISION THRESHOLD FOR NM DIAGNOSIS. Performed By: #### A CETON #### [facility] [address] [place] [address] Dr. Kesha Aguero HSTROP 24.7 pg/mL Normal 4.0-51.3 [facility] Comment on above: Result Comment: CUT- OFF POINTS HAVE BEEN ESTABLISHED BASED ON THE FOURTH UNIVERSAL DEFINITIONS OF MYOCARDIAL INFARCTION. THE UPPER REFERENCE LIMIT (URL) OF TROPONIN, DEFINED THE 99TH PERCENTILE OF cTnI DISTRIBUTION IN A REFERENCE POPULATION, HAS BEEN CONFIRMED THE DECISION THRESHOLD FOR NM DIAGNOSIS. Performed By: #### C VDTBH #### [facility] [address], [place] [address] Dr. Kesha Aguero Triglyceride [Mass/volume] i n Serum or PlasmaOrdered By: Herminia Lawler on 05-09-2022 Triglyceride [Mass/Vol] 156 mg/dL 35-149 [facility] Comment on above: TRIG ATP III CLASSIF ICATION TRIG less than 150 mg/dL Normal TRIG 150-199 mg/dL Borderline high TRIG 200-500 mg/dL High TRIG greater than 500 mg/dL Very high Standard traceable to the Center for Disease Conrtrol and Prevention (CDC) test method. Covid-19 PCR ([facility])on SARS-CoV-2 (COVID-19) RNA YARA+probe Ql (Unsp spec) Not detected Normal NOT DETECTED [facility] Comment on above: Result Comment: This test is not yet approved or cleared by the [place] FDA. When there are no FDA-approved or cleared tests available, and other criteria are met, FDA can make tests available under an emergency access mechanism called an Emergency Use Authorization (EUA). The EUA for this test is supported by the Facility Worker of Health and Human Service's (HHS's) declaration [...] SARS-CoV-2. Performed By: #### C VDTB #### [facility] [address], [place] [address] Dr. Kesha Aguero PROF CHEM 8 (BAS METB)on Anion gap [Moles/Vol] 13.7 mmol/L Normal [facility] Comment on above: Performed By: #### D DIM #### [facility] [address] [address] [address] Kesha Aguero Calcium [Mass/Vol] 9.8 mg/dL Normal 8.5-10.1 [facility] Comment on above: Performed By: #### D DIM #### [facility] [address] [address] [address] Kesha Aguero Chloride [Moles/Vol] 102 mmol/L Normal 98-107 [facility] Comment on above: Performed By: #### D DIM #### [facility] [address] [address] [address] Kesha Aguero CO2 [Moles/Vol] 26.0 mmol/L Normal 21.0-32.0 [facility] Comment on above: Performed By: #### D DIM #### [facility] [address] [address] [address] Kesha Aguero Creatinine [Mass/Vol] 1.22 mg/dL Critically high 0.55-1.02 [facility] Comment on above: Performed By: #### D DIM #### [facility] [address] [address] [address] Kesha Aguero EGFR-AF GUYANESE 51 mL/min/1.73m2 Critically low >=60 [facility] Comment on above: Performed By: #### D DIM #### [facility] [address] [address] [address] Kesha Aguero EGFR-NON AF GUYANESE 42 mL/min/1.73m2 Critically low >=60 [facility] Comment on above: Performed By: #### D DIM #### [facility] [address] [address] [address] Kesha Aguero Glucose [Mass/Vol] 323 mg/dL Critically high 74-106 [facility] Comment on above: Performed By: #### D DIM #### [facility] [address] [address] [address] Kesha Aguero Potassium [Moles/Vol] 4.7 mmol/L Normal 3.5-5.1 [facility] Comment on above: Performed By: #### D DIM #### [facility] [address] [address] [address] Kesha Aguero Sodium [Moles/Vol] 137 mmol/L Normal 136-145 [facility] Comment on above: Performed By: #### D DIM #### [facility] [address] [address] [address] Kesha Aguero Urea nitrogen [Mass/Vol] 31.0 mg/dL Critically high 7.0-18.0 [facility] Comment on above: Performed By: #### D DIM #### [facility] [address] [address] [address] Kesha Aguero Urea nitrogen/Creatinine [Mass ratio] 25.4 mg/mg Normal [facility] Comment on above: Performed By: #### D DIM #### [facility] [address] [address] [address] Kesha Aguero Cardiovascular Lab Reporton 04-22-2022 Cardiovascular Lab Report [facility] #: [id number] Department of Physician: Edison Gibbs M.D. Division of Service Date: 04/21/2022 Cardiology Birthdate: 1940 Adult Cardiovascular Room #: [facility] [address] [facility]. [place] [address] Cardiovascular Laboratory Report CLINICAL PRESENTATION: The patient is an 82-year-old female with past medical history significant for hypertension, hyperlipidemia, CAD, PCI to ramus, TAPPER SHANK LAD, and systolic heart failure with EF [...] Farxiga. Monitor labs. 5. Outpatient followup with [place] [facility]. 6. Referral to cardiac rehabilitation. PROCEDURES: [...] infiltrated over the left radial artery. A 6-Macanese for Terumo Glidesheath slender was placed in the left radial artery. Radial anti-vasospasm cocktail of verapamil and nitroglycerin was administered to prevent spasm. All catheter exchanges were made over the [employer] guidewire. This was a planned PCI procedure. Heparin anticoagulation was administered and ACT was maintained greater than 250 seconds. A [employer] 6-Macanese JR4 guide was engaged to right coronary [...] througho (more content not included)... Normal [facility] Covid-19 PCR (CVDTB)on 03-31 SARS-CoV-2 (COVID-19) RNA YARA+probe Ql (Unsp spec) Not detected Normal NOT DETECTED [facility] Comment on above: Result Comment: This test is not yet approved or cleared by the [place] FDA. When there are no FDA-approved or cleared tests available, and other criteria are met, FDA can make tests available under an emergency access mechanism called an Emergency Use Authorization (EUA). The EUA for this test is supported by the Facility Worker of Health and Human Service's (HHS's) declaration [...] SARS-CoV-2. Performed By: #### D DIM #### [facility] [address] [place] [address] Dr. Kesha Aguero HEMOGRAM AND PLATELon 2021 Hematocrit (Bld) [Volume fraction] 41.6 % Normal 36.0-48.0 [facility] Comment on above: Performed By: #### C VDTBH #### [facility] [address] [place] [address] Dr. Kesha Aguero Hemoglobin (Bld) [Mass/Vol] 13.2 g/dL Normal 12.0-16.0 [facility] Comment on above: Performed By: #### C VDTBH #### [facility] [address] [place] [address] Dr. Kesha Aguero MCH (RBC) [Entitic mass] 26.2 pg Critically low 26.7-34.0 [facility] Comment on above: Performed By: #### C VDTBH #### [facility] [address] [place] [address] Dr. Kesha Aguero MCHC (RBC) [Mass/Vol] 31.7 g/dL Normal 29.9-35.2 [facility] Comment on above: Performed By: #### C VDTBH #### [facility] [address] [place] [address] Dr. Kesha Aguero MCV (RBC) [Entitic vol] 82.7 fL Normal 81.0-99.0 [facility] Comment on above: Performed By: #### C VDTBH #### [facility] [address] [place] [address] Dr. Kesha Aguero PLT 272 103/ul Normal 150-450 [facility] Comment on above: Performed By: #### C VDTBH #### [facility] [address] [place] [address] Dr. Kesha Aguero RBC 5.03 106/ul Normal 4.20-5.40 [facility] Comment on above: Performed By: #### C VDTBH #### [facility] [address] [place] [address] Dr. Kesha Aguero WBC 5.9 103/ul Normal 4.0-11.0 [facility] Comment on above: Performed By: #### C VDTBH #### [facility] [address] [place] [address] Dr. Kesha Aguero PROF CHEM 8 (BAS METB)on Anion gap [Moles/Vol] 12.8 mmol/L Normal [facility] Comment on above: Performed By: #### D DIM #### [facility] [address] [place] [address] Dr. Kesha Aguero Calcium [Mass/Vol] 9.6 mg/dL Normal 8.5-10.1 [facility] Comment on above: Performed By: #### D DIM #### [facility] [address] [place] [address] Dr. Kesha Aguero Chloride [Moles/Vol] 105 mmol/L Normal 98-107 [facility] Comment on above: Performed By: #### D DIM #### [facility] [address] [place] [address] Dr. Kesha Aguero CO2 [Moles/Vol] 25.6 mmol/L Normal 21.0-32.0 [facility] Comment on above: Performed By: #### D DIM #### [facility] [address] [place] [address] Dr. Kesha Aguero Creatinine [Mass/Vol] 1.07 mg/dL Critically high 0.55-1.02 [facility] Comment on above: Performed By: #### D DIM #### [facility] [address] [place] [address] Dr. Kesha Aguero EGFR-AF GUYANESE 59 mL/min/1.73m2 Critically low >=60 [facility] Comment on above: Performed By: #### D DIM #### [facility] [address] [place] [address] Dr. Kesha Aguero EGFR-NON AF GUYANESE 49 mL/min/1.73m2 Critically low >=60 [facility] Comment on above: Performed By: #### D DIM #### [facility] [address] [address] [address] Kesha Aguero Glucose [Mass/Vol] 264 mg/dL Critically high 74-106 [facility] Comment on above: Performed By: #### D DIM #### [facility] [address] [address] [address] Kesha Agureo Potassium [Moles/Vol] 4.4 mmol/L Normal 3.5-5.1 [facility] Comment on above: Performed By: #### D DIM #### [facility] [address] [address] [address] Kesha Aguero Sodium [Moles/Vol] 139 mmol/L Normal 136-145 [facility] Comment on above: Performed By: #### D DIM #### [facility] [address] [place] [address] Dr. Kesha Aguero Urea nitrogen [Mass/Vol] 17.0 mg/dL Normal 7.0-18.0 [facility] Comment on above: Performed By: #### D DIM #### [facility] [address] [place] [address] Dr. Kesha Aguero Urea nitrogen/Creatinine [Mass ratio] 15.9 mg/mg Normal [facility] Comment on above: Performed By: #### D DIM #### [facility] [address] [place] [address] Dr. Kesha Aguero MAGNESIUMon 03-12-2022 Magnesium [Mass/Vol] 1.8 mg/dL Normal 1.8-2.4 [facility] Comment on above: Performed By: #### D DIM #### [facility] [address] [place] [address] Dr. Kesha Aguero PROF CHEM 8 (BAS METB)on Anion gap [Moles/Vol] 13.9 mmol/L Normal [facility] Comment on above: Performed By: #### D DIM #### [facility] [address] [address] [address] Kesha Aguero Calcium [Mass/Vol] 9.8 mg/dL Normal 8.5-10.1 [facility] Comment on above: Performed By: #### D DIM #### [facility] [address] [address] [address] Kesha Aguero Chloride [Moles/Vol] 101 mmol/L Normal 98-107 [facility] Comment on above: Performed By: #### D DIM #### [facility] [address] [address] [address] Kesha Aguero CO2 [Moles/Vol] 24.8 mmol/L Normal 21.0-32.0 [facility] Comment on above: Performed By: #### D DIM #### [facility] [address] [address] [address] Kesha Aguero Creatinine [Mass/Vol] 1.28 mg/dL Critically high 0.55-1.02 [facility] Comment on above: Performed By: #### D DIM #### [facility] [address] [address] [address] Kesha Aguero EGFR-AF GUYANESE 48 mL/min/1.73m2 Critically low >=60 [facility] Comment on above: Performed By: #### D DIM #### [facility] [address] [address] [address] Kesha Aguero EGFR-NON AF GUYANESE 40 mL/min/1.73m2 Critically low >=60 [facility] Comment on above: Performed By: #### D DIM #### [facility] [address] [address] [address] Kesha Aguero Glucose [Mass/Vol] 214 mg/dL Critically high 74-106 [facility] Comment on above: Performed By: #### D DIM #### [facility] [address] [address] [address] Kesha Aguero Potassium [Moles/Vol] 4.7 mmol/L Normal 3.5-5.1 [facility] Comment on above: Performed By: #### D DIM #### [facility] [address] [address] [address] Kesha Aguero Sodium [Moles/Vol] 135 mmol/L Critically low 136-145 [facility] Comment on above: Performed By: #### D DIM #### [facility] [address] [address] [address] Kesha Aguero Urea nitrogen [Mass/Vol] 26.0 mg/dL Critically high 7.0-18.0 [facility] Comment on above: Performed By: #### D DIM #### [facility] [address] [address] [address] Kesha Aguero Urea nitrogen/Creatinine [Mass ratio] 20.3 mg/mg Normal [facility] Comment on above: Performed By: #### D DIM #### [facility] [address] [address] [address] Kesha Aguero Cardiovascular Lab Reporton 2022 Cardiovascular Lab Report [facility] Patient Name: [facility] A MR #: [id number] Department of Physician: Edison Gibbs M.D. Division of Service Date: 03/07/2022 Cardiology Birthdate: 1940 Adult Cardiovascular Room #: [facility] [address] [facility]. [place] [address] Cardiovascular Laboratory Report CLINICAL PRESENTATION: The patient [...] mid LAD has 100% chronic total occlusion (TAPPER SHANK). The ramus coronary artery has a proximal [...] right PDA disease. 8. Outpatient followup with [place] [facility]. 9. Since the right heart catheterization [...] ultrasound guidance and micropuncture access technique, a 6-Macanese sheath was placed in right internal jugular [...] anesthetized with 1% lidocaine and then a 6-Macanese Terumo Glidesheath slender placed in the left radial artery. The radial anti-vasospasm cocktail of nitroglycerin 200 mcg and verapamil 2.5 mg administered through the sheath. All catheters and sheaths were made over the [employer] guidewire. A 5-Macanese JR 5 was used to engage the right coronary artery. 5-Macanese JL 3.5 was used to engage the left main coronary artery. Coronary angiogram was performed in multiple orthogonal views using hand injection of contrast. 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 I elected to proceed with PCI given the patient's advanced age. A Cordis 6-Macanese XB 3.0 guide was engaged in left main coronary artery. Heparin anticoagulation was used for this procedure. ACT was maintained greater than 200 seconds. Run-through wire was manipulated into the coronary arteries. First, I probed the LAD and it did in fact behave as a TAPPER SHANK. Therefore, I turned my attention to the ramus coronary artery. The proximal ramus had 99% stenosis. The run-through wire has been delivered to the distal ramus. The lesion was predilated with the [employer] 2.5 x 15 mm balloon at 12 atmospheres. Next, a Synergy 2.5 x 16 mm drug-eluting stent was deployed in the proximal ramus. Careful attention was placed to land the stent at the ostium of the ramus and not protrude into the left main coronary artery. The stent was deployed at 12 atmospheres. Next, the stent was post dilated with the [employer] 2.5 x 15 mm balloon. The b (more content not included)... Normal [facility] POC SARS COV2 IDon 2 SARS-CoV-2 (COVID-19) RNA YARA+probe Ql (Unsp spec) Negative Normal NEGATIVE [facility] Comment on above: Result Comment: ID N OW COVID-19 assay performed on the [employer] Instrument is a rapid molecular in vitro [...] Accreditation. Performed By: #### 3 1921 #### [facility] [address] CBC AUTO DIFFon 03-01-2022 BASO # 0.1 103/ul Normal 0.0-0.1 [facility] Comment on above: Performed By: #### C VDTBH #### [facility] [address] [place] [address] Dr. Kesha Aguero Basophils/100 WBC (Bld) 0.7 % Normal 0.2-2.0 [facility] Comment on above: Performed By: #### C VDTBH #### [facility] [address] [place] [address] Dr. Kesha Aguero EO # 0.1 103/ul Normal 0.0-0.7 [facility] Comment on above: Performed By: #### C VDTBH #### [facility] [address] [place] [address] Dr. Kesha Aguero Eosinophils/100 WBC (Bld) 1.2 % Normal 0.9-7.0 [facility] Comment on above: Performed By: #### C VDTBH #### [facility] [address] [place] [address] Dr. Kesha Aguero Erythrocyte distribution width (RBC) [Ratio] 14.0 % Normal 11.0-15.0 [facility] Comment on above: Performed By: #### C VDTBH #### [facility] [address] [place] [address] Dr. Kesha Aguero Hematocrit (Bld) [Volume fraction] 40.9 % Normal 36.0-48.0 [facility] Comment on above: Performed By: #### C VDTBH #### [facility] [address] [place] [address] Dr. Kesha Aguero Hemoglobin (Bld) [Mass/Vol] 13.1 g/dL Normal 12.0-16.0 [facility] Comment on above: Performed By: #### C VDTBH #### [facility] [address] [place] [address] Dr. Kesha Aguero IG # 0.03 10e3/ul Normal 0.00-0.03 [facility] Comment on above: Performed By: #### C VDTBH #### [facility] [address] [address] [address] Kesha Aguero IG % 0.3 % Normal 0.0-0.5 [facility] Comment on above: Performed By: #### C VDTBH #### [facility] [address] [address] [address] Kesha Aguero LYMPH # 3.4 103/ul Normal 1.2-3.8 [facility] Comment on above: Performed By: #### C VDTBH #### [facility] [address] [address] [address] Kesha Aguero Lymphocytes/100 WBC (Bld) 36.9 % Normal 20.5-60.0 [facility] Comment on above: Performed By: #### C VDTBH #### [facility] [address] [place] [address] Dr. Kesha Aguero MANUAL DIFF REQ NO Normal [facility] Comment on above: Performed By: #### C VDTBH #### [facility] [address] [address] [address] Kesha Aguero MCH (RBC) [Entitic mass] 26.5 pg Critically low 26.7-34.0 [facility] Comment on above: Performed By: #### C VDTBH #### [facility] [address] [address] [address] Kesha Aguero MCHC (RBC) [Mass/Vol] 32.0 g/dL Normal 29.9-35.2 [facility] Comment on above: Performed By: #### C VDTBH #### [facility] [address] [place] [address] Dr. Kesha Aguero MCV (RBC) [Entitic vol] 82.8 fL Normal 81.0-99.0 [facility] Comment on above: Performed By: #### C VDTBH #### [facility] [address] [address] [address] Kesha Aguero MONO # 0.6 103/ul Normal 0.3-0.8 [facility] Comment on above: Performed By: #### C VDTBH #### [facility] [address] [place] [address] Dr. Kesha Aguero Monocytes/100 WBC (Bld) 6.5 % Normal 1.7-12.0 [facility] Comment on above: Performed By: #### C VDTBH #### [facility] [address] [place] [address] Dr. Kesha Aguero NEUT # 4.9 103/ul Normal 1.4-6.5 [facility] Comment on above: Performed By: #### C VDTBH #### [facility] [address] [place] [address] Dr. Kesha Aguero Neutrophils/100 WBC (Bld) 54.4 % Normal 43.0-75.0 [facility] Comment on above: Performed By: #### C VDTBH #### [facility] [address] [place] [address] Dr. Kesha Aguero Platelet mean volume (Bld) [Entitic vol] 9.5 fL Normal 9.5-13.5 [facility] Comment on above: Performed By: #### C VDTBH #### [facility] [address] [place] [address] Dr. Kesha Aguero PLT 271 103/ul Normal 150-450 [facility] Comment on above: Performed By: #### C VDTBH #### [facility] [address] [place] [address] Dr. Kesha Aguero RBC 4.94 106/ul Normal 4.20-5.40 [facility] Comment on above: Performed By: #### C VDTBH #### [facility] [address] [place] [address] Dr. Kesha Aguero WBC 9.1 103/ul Normal 4.0-11.0 [facility] Comment on above: Performed By: #### C VDTBH #### [facility] [address] [place] [address] Dr. Kesha Aguero [facility]on SARS-CoV-2 (COVID-19) RNA YARA+probe Ql (Unsp spec) Not detected Normal NOT DETECTED [facility] Comment on above: Result Comment: [...] for this test is supported by the Prospect of Health and Human Service's declaration that [...] used). Performed By: #### A CETON #### [facility] [address] [place] [address] Dr. Kesha Aguero PROF CHEM 8 (BAS METB)on Anion gap [Moles/Vol] 14.3 mmol/L Normal [facility] Comment on above: Performed By: #### B MP #### [facility] [address] [place] [address] Dr. Kesha Aguero Calcium [Mass/Vol] 9.7 mg/dL Normal 8.5-10.1 [facility] Comment on above: Performed By: #### B MP #### [facility] [address] [place] [address] Dr. Kesha Aguero Chloride [Moles/Vol] 100 mmol/L Normal 98-107 [facility] Comment on above: Performed By: #### B MP #### [facility] [address] [place] [address] Dr. Kesha Aguero CO2 [Moles/Vol] 27.2 mmol/L Normal 21.0-32.0 [facility] Comment on above: Performed By: #### B MP #### [facility] [address] [address] [address] Kesha Aguero Creatinine [Mass/Vol] 1.34 mg/dL Critically high 0.55-1.02 [facility] Comment on above: Performed By: #### B MP #### [facility] [address] [address] [address] Kesha Aguero EGFR-AF GUYANESE 46 mL/min/1.73m2 Critically low >=60 [facility] Comment on above: Performed By: #### B MP #### [facility] [address] [address] [address] Kesha Aguero EGFR-NON AF GUYANESE 38 mL/min/1.73m2 Critically low >=60 [facility] Comment on above: Performed By: #### B MP #### [facility] [address] [address] [address] Kesha Aguero Glucose [Mass/Vol] 232 mg/dL Critically high 74-106 [facility] Comment on above: Performed By: #### B MP #### [facility] [address] [address] [address] Kesha Aguero Potassium [Moles/Vol] 4.5 mmol/L Normal 3.5-5.1 [facility] Comment on above: Performed By: #### B MP #### [facility] [address] [address] [address] Kesha Aguero Sodium [Moles/Vol] 137 mmol/L Normal 136-145 [facility] Comment on above: Performed By: #### B MP #### [facility] [address] [address] [address] Kesha Aguero Urea nitrogen [Mass/Vol] 22.0 mg/dL Critically high 7.0-18.0 [facility] Comment on above: Performed By: #### B MP #### [facility] [address] [address] [address] Kesha Aguero Urea nitrogen/Creatinine [Mass ratio] 16.4 mg/mg Normal [facility] Comment on above: Performed By: #### B MP #### [facility] [address] [place], [place] [address] Dr. Kesha Aguero ECHOCARDIO M/2D COMPLETEon 0 02-11-2022 ECHOCARDIO M/2D COMPLETE Patient: TERE HARTMANN Exam Date: 02/11/2022 : 1940 Gender:F Ordering : DR RODRICK BUTLER M.D. Admission #: [id number] Family : Order #: [id number] CLICK HERE TO VIEW EXAM ECHOCARDIOGRAM REPORT [...] Area(A4C): 23.90 cm2 Left Atrium Systolic Volume(A2C): 75755 mm3 Left Atrium Systolic Volume(A4C): 77889 mm3 Mitral Valve MV E to A [...] Jackson M.D. on 02/11/2022 at 18:48 Normal [facility] NM STRESS/REST MULTIon 02-11 NM STRESS/REST MULTI Patient: TERE HARTMANN Exam Date: 02/11/2022 : 1940 Gender:F Ordering : DR RODRICK BUTLER M.D. Admission #: [id number] Family : Order #: [id number] CLICK HERE TO VIEW EXAM RADIOLOGY REPORT [...] DEFECT: LOCATION: Mid-anterior. Mid-anteroseptal. Mid-anterolateral. Apical anterior. [place]. SIZE: Large (5 or more segments). SEVERITY: [...] Diego M.D. on 02/11/2022 at 14:41 Normal [facility] Vital Signs Date Time Vital Sign Value Performing Clinician Facility 09-22-2022 12:00-0500 Body height 162.56 cm Heather Soler Other [employer] Other 09-22-2022 12:00-0500 Body mass index (BMI) [Ratio] 24.59 kg/m2 Heather Scally Other [employer] [facility] Other 09-22-2022 12:00-0500 Body weight 65 kg Heather Katarinaly Other [employer] Other 09-22-2022 12:00-0500 Diastolic blood pressure 76 mm[Hg] Heather Scally Other [employer] [facility] Other 09-22-2022 12:00-0500 Respiratory rate 18 /min Heather Scally Other [employer] Other 09-22-2022 12:00-0500 SaO2% (BldA) [Mass fraction] 100 % Heather Scally Other [employer] Other 09-22-2022 12:00-0500 Systolic blood pressure 136 mm[Hg] Heather Scally Other [employer] Other 05-11-2022 11:34-0400 Body temperature 97.3 [degF] II Rodrick Butler Work Phone: [facility] 05-11-2022 11:34-0400 Diastolic blood pressure 75 mm[Hg] II Rodrick Butler Work Phone: [facility] 05-11-2022 11:34-0400 Heart rate 78 /min II Rodrick Butler Work Phone: [facility] 05-11-2022 11:34-0400 Respiratory rate 20 /min II Rodrick Butler Work Phone: [facility] 05-11-2022 11:34-0400 SaO2% (BldA) [Mass fraction] 95 % II Rodrick Butler Work Phone: [facility] 05-11-2022 11:34-0400 Systolic blood pressure 122 mm[Hg] II Rodrick Butler Work Phone: [facility] 05-11-2022 06:00-0400 Body weight 69 kg II Rodrick Butler Work Phone: [facility] 05-09-2022 09:40-0400 Body height 170.18 cm II Rodrick Butler Work Phone: [facility] Encounters Encounter Date Encounter Type Care Provider Facility Start: 05-05-2024 End: 05-05-2024 ambulatory KALYANI FLETCHER Not Available Start: 04-26-2024 End: 04-26-2024 ambulatory [facility] Start: 04-19-2024 End: 04-19-2024 ambulatory RODGER PAREDES Not Available Start: 04-07-2024 End: 04-07-2024 ambulatory KALYANI FLETCHER Not Available Start: 02-29-2024 End: 02-29-2024 ambulatory RODRICK B BUTLER Not Available Start: 01-12-2024 End: 01-12-2024 ambulatory RODGER PAREDES Not Available Start: 12-30-2023 End: 12-30-2023 ambulatory RODRICK B BUTLER Not Available Start: 12-02-2023 End: 12-02-2023 ambulatory RODRICK B BUTLER Not Available Start: 10-27-2023 End: 10-27-2023 ambulatory [facility] Start: 09-17-2023 End: 09-17-2023 ambulatory RODRICK B BUTLER Not Available Start: 09-16-2023 End: 09-16-2023 ambulatory ABBIE CRISOSTOMO [facility] Start: 09-09-2023 Evaluation and manag ement of inpatient [facility] Start: 09-09-2023 Evaluation and manag ement of inpatient [facility] Start: 09-08-2023 [facility] Evaluation and manag ement of inpatient [facility] Start: 09-08-2023 Evaluation and manag ement of inpatient [facility] Start: 09-07-2023 End: 09-09-2023 Evaluation and management of inpatient MIKALA STAHL [facility] Start: 09-07-2023 End: 09-07-2023 Evaluation and management of inpatient CODY FORDE [facility] Start: 08-13-2023 End: 08-13-2023 ambulatory RODRICK BUTLER Not Available Start: 07-29-2023 End: 07-29-2023 ambulatory RODRICK BUTLER Not Available Start: 06-03-2023 End: 06-03-2023 [facility] Start: 11-24-2022 End: 11-24-[address] RODRICK BUTLER Facility:H1 Start: 09-29-2022 End: 09-30-[address] RODRICK BUTLER Facility:H1 Start: 09-22-2022 (New DM) New Diabetes Heather Scalnirav [facility] Start: 09-22-2022 End: 09-23-2022 ambulatory Heather Soler [place] [employer] Other Start: 08-28-2022 End: 08-29-[address] [...] management of inpatient CHANDA Butler Work Phone: [facility] Start: 05-09-2022 End: 05-09-2022 ambulatory Itz Townsend II Facility:[id number] Start: 05-02-2022 Encounter for other preprocedural examination [facility] Start: 05-02-2022 Encounter for preprocedural laboratory examination ABBIE CRISOSTOMO [facility] Start: 05-01-2022 End: 05-02-[address] RODRICK BUTLER Facility:H1 Start: 05-01-2022 End: 05-02-2022 Encounter for other preprocedural examination DR RODRICK BUTLER Facility:H1 Start: 04-21-2022 End: 04-22-2022 ambulatory RODRICK BUTLER Facility:[facility] Start: 04-18-2022 End: 04-19-2022 ambulatory ABIBE CRISOSTOMO Facility:H1 Start: 03-12-2022 End: 03-13-2022 ambulatory ABBIE CRISOSTOMO Facility:H1 Start: 03-07-2022 End: 2022 ambulatory RODRICK BUTLER Facility:[facility] Start: 03-01-2022 End: 03-02-2022 ambulatory ABBIEIRVING CUADRAS Facility:H1 Start: 02-11-2022 End: 02-12-[address] RODRICK BUTLER Facility:H1 Plan of Treatment Date Care Activity Detail Author Start: 05-11-2022 [facility] Work Phone: Start: 05-09-2022 Hospital admission [facility] Work Phone: Start: 05-09-2022 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 [id number] 2.16.840.1.261288.3.579. 2.647 1940 Unknown [id number] 2.16.840.1.013949.3.579. 2.647 1939 Unknown [id number] 2.16.840.1.861665.3.579. 2.356 1939 Unknown [id number] 2.16.840.1.566528.3.579. 2.356 1939 Unknown [id number] 2.16.840.1.164196.3.579. 2.356 1939 Unknown [id number] 2.16.840.1.087868.3.579. 2.356 1939 Unknown [id number] 2.16.840.1.587160.3.579. 2.593 1939 Unknown [id number] 2.16.840.1.748867.3.579. 2.593 1939 Unknown [id number] 2.16.840.1.138792.3.579. 2.593 1939 Unknown [id number] 2.16.840.1.066724.3.579. 2.593 1939 Unknown [id number] 2.16.840.1.015496.3.579. 2.593 1939 Unknown [id number] 2.16.840.1.947056.3.579. 2.593 1939 Unknown [id number] 2.16.840.1.160783.3.579. 2.593 1939 Unknown [id number] 2.16.840.1.111688.3.579. 2.593 1939 Unknown [id number] 2.16.840.1.430105.3.579. 2.593 1939 Unknown [id number] 2.16.840.1.944481.3.579. 2.593 1939 Unknown [id number] 2.16.840.1.761216.3.579. 2.593 1939 Unknown [id number] 2.16.840.1.029259.3.579. 2.593 1939 Unknown [id number] 2.16.840.1.303770.3.579. 2.593 1939 Unknown [id number] 2.16.840.1.566104.3.579. 2.1259 1939 Unknown [id number] 2.16.840.1.051241.3.579. 2.125 1939 Unknown [id number] 2.16.840.1.670050.3.579. 2.125 1939 Unknown [id number] 2.16.840.1.418696.3.579. 2.125 1939 Unknown [id number] 2.16.840.1.228073.3.579. 2.1259 1939 Unknown [id number] 2.16.840.1.406242.3.579. 2.125 1939 Unknown [id number] 2.16.840.1.307466.3.579. 2.1259 1939 Unknown [id number] 2.16.840.1.946936.3.579. 2.125 1939 Unknown [id number] 2.16.840.1.629091.3.579. 2.125 1939 Unknown [id number] 2.16.840.1.263782.3.579. 2.1259 Private Health Insurance [id number] Unknown Equitable Insurance-[facility] [id number] Unknown [id number] 2.16.840.1.966403.3.579. 2.531 Social History Date Type Detail Facility Start: 05-09-2022 Tobacco smoking status NHIS Never smoked tobacco (finding) [facility] Start: 1940 Sex Assigned At Female F [facility] Sex Assigned At Sex Assigned At Bir th [facility] [email or web address] Other Medical Equipment Procedure Code Equipment Code Equipment Origin al Text Equipment Identifier Dates Accu-Chek Briana Test Strip Start: 01-18-2013 Goals Date Patient Goal Desired Activity /State Functional Status Date Assessment Result Facility 05-11-2022 Functional status Patient at Baseline [facility] Work Phone: Mental Status Date Assessment Result Facility 05-11-2022 Cognitive function Cognitive Sta tus Patient at Baseline [facility] Work Phone: Clinical Notes 03-31-2022 to 09-16-2023 Note Date & Type Note Facility 09-16-2023 Note Incision healing wel l- no s/s of distress and RTC at 1 month for device interrogation [facility] 09-16-2023 Note UTP CARDIOLOGY PROGR ESS NOTE HPI: Tere Hartmann is a 83 y.o. female here for wound check HPI 83 yo female presents to clinic for wound check s/p recent ventricular lead reposition. Currently pt denied chest pain, SOB, orthopnea, palpitations, fever, chills, N/V/D. 09/07/23 Conclusion DUAL CHAMBER PACEMAKER IMPLANT PROCEDURE NOTE DATE OF PROCEDURE: 09/07/23 PERFORMING PHYSICIAN: Dr. Cody Fored CONSENT: Patient LOCATION: EP Lab PROCEDURE PERFORMED: [...] 1 1 [facility] Heart Station [address] [place] [address] [phone] (fax) Echocardiogram-[facility] Name: TERE HARTMANN Study Date: 09/08/2023 09:30 AM B/P: 140 mmHg/51 mmHg HR: Date of : 1940 Location: [facility] Height: 67 in. Age: 83 year(s) [...] LV Mass, 2D (more content not included)... [facility] 09-09-2023 Note UTP CARDIOLOGY INPAT IENT PROGRESS [...] Value Ventricular Rate 76 Atrial Rate 76 IA Interval 226 QRS DURATION 164 QT Interval 456 QTC CALCULATION(BAZETT) 513 P Saratoga 63 R-Saratoga -77 T Wave [place] 92 Impression Atrial-sensed ventricular-paced rhythm with prolonged [...] normal in siz (more content not included)... 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 female with past medical history of CAD s/p PCI with stenting, CHF, DM2, hypertension, hyperlipidemia presents as a direct admission from [facility] with dizziness on 09/07/23 to [facility]. Per report, patient presented to [facility] on 09-04-2023 due to dizziness and was found to be bradycardic in the 30s. Patient is on Coreg at home and this was held for 3 days without improvement in symptoms. She was then found to have second-degree AV block Mobitz type II and was transferred to [facility] for pacemaker placement. Patient underwent dual chamber pacemaker placement on 09/07/2023. Patient to be admitted to the hospitalist team overnight for observation post procedure. On 09/08, it was determined that lead had been dislodged and patient returned to labor arbitrator for revision of pacemaker lead. She was [...] -ventricular lead dislodged and required Return to labor arbitrator for lead revision procedure on 09/08/23 -interrogation of device, EKG, and CXR confirm Pacemaker lead in place and pacemaker working properly on 09/09/23 -discharged home on 09/09/23 Chronic diseases (POA): #Chronic systolic heart failure, NYHA class II, compensated #CAD s/p PCI with stenting #DM2 #Hypertension, continue home medications #Hyperlipidemia, continue home medications Dear Dr. Luke MD, [place] is advised to follow up with you [...] Your Medications These medications were sent to [id number] - [place], [place] - [address] [facility] [address] [place] [address] carvedilol 12.5 mg tablet doxycycline 100 mg [...] of discharge: regul (more content not included)... 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 [facility] 09-08-2023 Note 09/08/23 1406 Admission Assessment Questions [...] Discharge? Yes Does the patient have a residential case manager assigned to them through their [...] activate MyChart? Yes (link sent, mychart pending) [facility] 09-08-2023 Note Hospital Medicine Daily Progress Note - 09/08/2023 1:43 PM; Room: [facility] Admission: 09/07/2023 7:38 PM; Length of stay: 1 days THE HOSPITALIST TEAM PREFERS TO USE [employer] CHAT FOR COMMUNICATION 7AM-7PM. IF I DO NOT RESPOND WITHIN 15 MINUTES, PLEASE PAGE ME/CALL THROUGH THE RN RELIEF CHARGE. FROM 7PM-7AM, PLEASE PAGE [phone](COVR) Code Status: Full Code Barriers to Discharge: [...] block Active Problems: Coronary artery disease involving salamatof coronary artery of salamatof heart Chronic systolic heart failure (CMS/HCC) Mixed hyperlipidemia Diabetes mellitus (CMS/HCC) Benign essential hypertension Heart block atrioventricular Assessment and Plan Tere Hartmann is an 83 y.o. female with past medical history of CAD s/p PCI with stenting, CHF, DM2, hypertension, hyperlipidemia, presents as a direct admission from [facility] with dizziness and found to have heart block at which time she was sent to [facility] for further treatment. Per report, patient presented to [facility] on 09-04-2023 due to dizziness and was found to be bradycardic in the 30s. #Second-degree AV block Mobitz type II, s/p PPM implantation on 09/07/23 -noted on follow up imaging today that the ventricular lead had been dislodged. Returned to labor arbitrator for lead revision procedure today, 09/08/23 -plan [...] F[place]ET[place] , [place] (more content not included)... [facility] 09-08-2023 Note dications for ventri cular lead [...] lead Fluoroscopy Conscious sedation Shamika Hutchins M.D. [facility] propeller engineer and Pediatrics Director: Cardiac Electrophysiology Program [facility] 09-08-2023 Note Patient: Tere Christopher idd Procedure Information Date/Time: 09/08/231124 Procedure: Pacemaker lead revision Location: [facility] CRNA 1 / [facility] (Cath) Providers: Shamika Hutchins [...] with attending and fellow. Additional Equipment Requests [facility] 09-08-2023 Note UTP CARDIOLOGY INPAT IENT PROGRESS [...] Value Ventricular Rate 74 Atrial Rate 74 IA Interval 220 QRS DURATION 128 QT Interval 432 QTC CALCULATION(BAZETT) 479 P Saratoga 29 R-Saratoga 21 T Wave Sarat[place] -5 Impression Sinus rhythm with 1st degree [...] to lack o (more content not included)... [facility] 09-07-2023 Note Hospital Medicine History and Physical 09/07/2023 7:47 PM THE HOSPITALIST TEAM PREFERS TO USE [employer] CHAT FOR COMMUNICATION 7AM-7PM. IF I DO NOT RESPOND WITHIN 15 MINUTES, PLEASE PAGE ME/CALL THROUGH THE RN RELIEF CHARGE. FROM 7PM-7AM, PLEASE PAGE [phone](COVR) Chief Complaint Direct admission from [facility] with AV block, patient S/p pacemaker with our cardio team on 09/07 History of Present Illness Tere Hartmann is an 83 y.o. female who came from home with past medical history of CAD s/p PCI with stenting, CHF, DM2, hypertension, hyperlipidemia presents as a direct admission from [facility] with dizziness. Per report, patient presented to [facility] on 09-04-2023 due to dizziness and was found to be bradycardic in the 30s. Patient is on Coreg at home and this was held for 3 days without improvement in symptoms. She was then found to have second-degree AV block Mobitz type II and was transferred to [facility] for pacemaker placement. Patient underwent dual [...] Diverticulitis 01/27/2023 Mass of left adrenal gland ([facility]) 01/27/2023 Ovarian failure 01/27/2023 Skin sensation disturbance 01/27/2023 Type 2 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 gangrene ([facility]) 01/27/2023 Type 2 diabetes mellitus without complications ([facility]) 01/27/2023 Diabetes mellitus ([facility]) 08/01/2022 Benign hypertensive cardiomyopathy with heart failure ([facility]) 08/01/2022 Insomnia 08/01/2022 Non-smoker 08/01/2022 Restless legs syndrome 08/01/2022 Coronary artery disease involving salamatof coronary artery of salamatof heart 06/25/2022 Chronic systolic heart failure ([facility]) 06/25/2022 Mixed hyperlipidemia 06/25/2022 Lightheadedness 03/12/2022 Heart block atrioventricular 09/07/2023 Presence of drug coated stent in right coronary artery 06/25/2022 Assessment and Plan Tere Hartmann is an 83 y.o. female who came from home with past medical history of CAD s/p PCI with stenting, CHF, DM2, hypertension, hyperlipidemia presents as a direct admission from [facility] with dizziness. Per report, patient presented to [facility] on 09-04-2023 due to dizziness [...] recommendation #Chronic sys (more content not included)... [facility] 09-07-2023 Note DUAL CHAMBER PACEMAK ER IMPLANT [...] using modified seldinger technique using a 5 Macanese micro-puncture needle on two occasions and 0.35 [...] for the device above the muscle. 6 Macanese Safesheaths were placed over the wire. An active fixation Biotronik pacing lead was then delivered through the 6Fsheath tothe right ventricle. After confirmation of lead position on orthogonal views (HERNANDEZ and LITHUANIAN) to confirm septal position, the screw was [...] lead position on orthogonal views (HERNANDEZ and LITHUANIAN), the screw was activated. Good sensing parameters, [...] any concerns. Cody Forde MD Cardiac Electrophysiology [facility] 09-07-2023 Note Patient: Tere Christopher idcurtis Procedure Information Date/Time: 09/07/231901 Procedure: PPM generator change - dual Location: [facility] CRNA 1 EP / [facility] (Cath) Providers: Cody Forde MD Clinical information reviewed: Allergies Meds OB Status Physical Exam Airway Mallampati: II TM distance: >3 FB Neck ROM: full Cardiovascular Dental Pulmonary Abdominal Anesthesia Plan ASA 2 CSE Anesthetic plan and risks discussed with patient. Use of blood products discussed with patient who. Additional Equipment Requests [facility] 06-03-2023 Note [facility] Note Chief Complaint: Patient [...] mid LAD has 100% chronic total occlusion (TAPPER SHANK). The ramus coronary artery has a proximal [...] right PDA disease. 8. Outpatient followup with [facility]. 9. Since the right heart catheterization showed very low filling pressures, I discontinued hydrochlorothiazide (more content not included)... 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 (ICD-10 - Z79.4) [employer] Other 09-11-2022 Discharge summary Author Herminia Lawler [facility] May 11, 2022 2:35pm Note Date/Time May 11, 2022 2:27pm [facility] [address] [place] [address] Discharge Summary Signed Patient: Tere Hartmann MR#: [id number] : 1940 Acct:[id number] Age/Sex: 82 / F Adm Date: 2 Loc: Room: [address] [place] [address]: Herminia Lawler MD Copies to: [...] on exertion in February and went to [facility], She had Echo with EF 40%, [...] stated compliance. This time, patient presented at [facility] with epigastric pain, initial troponin was negative, EKG with no acute ischemic changes. 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 Last Echo on report with EF 40%. Repeat Troponin at [facility] uptrended to 600s, EKG with no acute ischemic changes again, given her recent cardiac history, raised the concern forstent thrombosis. Patient was started on IV heparin drip for presumptive NSTEMI and decision made to transfer patient over here to [facility] for possible cardiac cath. In our [...] in 3-[address] AP at [facility] found to have incidentaloma left adrenal 3.6 mass.Need outpatient follow up. Also strict glucose follow up. Maybe endocrinology referral. ) Documented By: Herminia Lawler MD 05/11/22 14 25 Signed By: <Electronically signed by Herminia Lawler MD> 05/11/22 [facility] Work Phone: 1(235) 608-312009-11-2022 Progress note Author Itz Townsend [facility] May 11, 2022 12:15pm Note Date/Time May 11, 2022 12:12pm [facility] [address] [place] [address] Cardiology Progress Note Signed Patient: Tere Hartmann MR#: [id number] : 1940 Acct:[id number] Age/Sex: 82 / F Adm Date: 2 Loc: Room: [address] [place] [address] Type: ADM IN Attending Dr: Herminia Lawler [...] Code(s): I25.10 - Atherosclerotic heart disease of salamatof coronary artery without angina pectoris Status: Acute [...] signed by MD Itz Townsend> 05/11/22 1215 [facility] Work Phone: 1(699) 990-104809-10-2022 Progress note Author Herminia Lawler [facility] May 10, 2022 11:22am Note Date/Time May 10, 2022 11:05am [facility] [address] [place] [address] Hospitalist Progress Note Signed Patient: Tere Hartmann MR#: [id number] : 1940 Acct:[id number] Age/Sex: 82 / F Adm Date: 2 Loc: Room: [address] [place] [address] Type: ADM IN Attending Dr: Herminia Lawler [...] Dose Route Start Last Admin Trade Name Brnat PRN Reason Stop Dose Admin Acetaminophen 650 [...] then RCA and PDA on 04/21/22 at [facility] PE was ruled out by CTA [...] with hyperglycemia -HbA1C 10.8 -Blood glucose at [facility] was 499. Negative for ketones. DKA was [...] <Electronically signed by Herminia Lawler MD> 05/10/[address] [place] [address] Ctr Work Phone: 1(111) 837-173609-10-2022 Progress note Author Itz Townsend [facility] May 10, 2022 8:46am Note Date/Time May 10, 2022 8:46am [facility] [address] [place] [address] Cardiology Progress Note Signed Patient: Tere Hartmann MR#: [id number] : 1940 Acct:[id number] Age/Sex: 82 / F Adm Date: 2 Loc: Room: 7V3668-4 Type: ADM IN Attending Dr: Herminia Lawler [...] % (Auto) 55.8 Lymph % (Auto) 35.8 [place] % (Auto) 6.3 Eos % (Auto) 1.5 Baso % (Auto) 0.6 Neut # (Auto) 3.4 Lymph # (Auto) 2.2 [place]ee # (Auto) 0.4 Eos # (Auto) 0.1 [...] MPV Neut % (Auto) Lymph % (Auto) [place] % (Auto) Eos % (Auto) Baso % (Auto) Neut # (Auto) Lymph # (Auto) [place] # (Auto) Eos # (Auto) Baso # [...] MPV Neut % (Auto) Lymph % (Auto) [place] % (Auto) Eos % (Auto) Baso % (Auto) Neut # (Auto) Lymph # (Auto) [place] # (Auto) Eos # (Auto) Baso # [...] MPV Neut % (Auto) Lymph % (Auto) [place] % (Auto) Eos % (Auto) Baso % (Auto) Neut # (Auto) Lymph # (Auto) [place] # (Auto) Eos # (Auto) Baso # [...] % (Auto) 45.7 Lymph % (Auto) 42.4 [place] % (Auto) 6.4 Eos % (Auto) 2.7 Baso % (Auto) 2.8 Neut # (Auto) 3.2 Lymph # (Auto) 3.0 Hardee # (Auto) 0.4 Eos # (Auto) 0.2 [...] MPV Neut % (Auto) Lymph % (Auto) [place]ee % (Auto) Eos % (Auto) Baso % (Auto) Neut # (Auto) Lymph # (Auto) [place]ee # (Auto) Eos # (Auto) Baso # [...] artery disease): Assessment/Problem Details: Angiographic studies from [facility] reviewed. She had a 99% ramus intermedius [...] Code(s): I25.10 - Atherosclerotic heart disease of salamatof coronary artery without angina pectoris Status: Acute [...] <Electronically signed by MD Itz Townsend> 05/10/2246 [facility] Work Phone: 1(801) 559-597309-09-2022 Consult note Author Itz Townsend [facility] May 09, 2022 5:03pm Note Date/Time May 09, 2022 5:03pm [facility] [address] [place] [address] Cardiology Consult Note Signed Patient: Tere Hartmann MR#: [id number] : 1940 Acct:[id number] Age/Sex: 82 / F Adm Date: 2 Loc: Room: [address] [place] [address] Type: ADM IN Attending Dr: Herminia Lawler [...] comparisonand will not use the enzymes from [facility] to make decisions. Presently it appears the [...] of heart artery stent x3 placed in [facility] February 2022 Social History Smoking Status: [...] x10E3/uL Lymph # (Auto) 2.2 (1.00-4.8) x10E3/uL Hardee # (Auto) 0.4 (0.0-0.8) x10E3/uL Eos # [...] Code(s): I25.10 - Atherosclerotic heart disease of salamatof coronary artery without angina pectoris (2) DM [...] follow advise. Documented By: Itz Townsend MD [id number] Signed By: <Electronically signed by MD Itz Townsend> 05/09/[address] [facility] Work Phone: 1(205) 968-263009-09-2022 History and physical note Author Herminia Lawler [facility] May 09, 2022 3:50pm Note Date/Time May 09, 2022 1:19pm [facility] [address] [place] [address] Hospitalist H&P Signed Patient: Tere Hartmann MR#: [id number] : 1940 Acct:[id number] Age/Sex: 82 / F Adm Date: 2 Loc: Room: [address] [place] [address] Type: ADM IN Attending Dr: Herminia Lawler MD Copies to: MD Herminia Owens II, MD~ HPI DATE OF EXAMINATION: 05/09/22 CHIEF COMPLAINT: Epigastric pain HISTORY OF PRESENT ILLNESS: Patient is an 82 elderly female with PMH HTN, DM, CAD s/p recent PCIs, patient had symptoms of SOB and fatigue on exertion in February and went to [facility], She had Echo with EF 40%, [...] stated compliance. This time, patient presented at [facility] this morning, initial troponin was negative, EKG with no acute ischemic changes. 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 Last Echo on report with EF 40%.This morning, repeat Troponin at [facility] uptrended to 600s, EKG with no acute ischemic changes again, given her recent cardiac history, raised the concern forstent thrombosis/restenosis. Patient was started on IV heparin drip for presumptive NSTEMI and decision made to transfer patient over here to [facility] for possible cardiac cath. During my [...] of heart artery stent x3 placed in [facility] February 2022 Social History Smoking Status: [...] then RCA and PDA on 04/21/22 at [facility] PE was ruled out by CTA Aortic dissection was ruled out by CTA -Patient was transferred from [facility] for NSTEMI for possible cardiac cath -Initial troponin at [facility] was normal then repeat was in 600s. Repeat troponin in our facility remains in the 600s. Patient denies any chest pain or epigastric pain, however, she does report bloating sensation in the epigastrium -Patient was started on heparin drip ACS protocol at [facility]. We will continuefor now. Further recommendations to follow by cardio -Heparin drip management per pharmacy protocol for ACS -Check serial troponin -Cardiology was consulted. We will follow-up recommendations -Continue DAPT, statin, beta-reginaldo -Check Echocardiogram -Admit to 4 P for close monitoring Uncontrolled Diabetes with hyperglycemia -HbA1C today 10.8 -Blood glucose at [facility] was 499. Negative for ketones. DKA was [...] by Herminia Lawler MD> 05/09/22 1550 [facility] Work Phone: [phone] 104-455008-01-2022 History general Narrative - Reported* Type Description Date Medical History DM2 Medical History HTN Medical History cervical cancer stage 1 Medical History glaucoma Medical History NM Medical History coronary artery dise ase-stents x3 February/March 2022 Surgical History MIREYA 1989 Surgical History appedectomy 1960 Surgical History breast biopsy-benign unsure of date Surgical History Stents x3 2021 Hospitalization History See Above [employer] Other Discharge summary Author Herminia Lawler [facility] May 11, 2022 2:35pm Note Date/Time May 11, 2022 2:27pm [facility] [address] [place] [address] Discharge Summary Signed Patient: Tere Hartmann MR#: [id number] : 1940 Acct:[id number] Age/Sex: 82 / F Adm Date: 2 Loc: Room: [address] [place] [address]: Herminia Lawler MD Copies to: [...] on exertion in February and went to [facility], She had Echo with EF 40%, [...] stated compliance. This time, patient presented at [facility] with epigastric pain, initial troponin was negative, EKG with no acute ischemic changes. 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 Last Echo on report with EF 40%. Repeat Troponin at [facility] uptrended to 600s, EKG with no acute ischemic changes again, given her recent cardiac history, raised the concern forstent thrombosis. Patient was started on IV heparin drip for presumptive NSTEMI and decision made to transfer patient over here to [facility] for possible cardiac cath. In our [...] in 3-[address] AP at [facility] found to have incidentaloma left adrenal 3.6 mass.Need outpatient follow up. Also strict glucose follow up. Maybe endocrinology referral. ) Documented By: Herminia Lalwer MD 05/11/22 14 25 Signed By: <Electronically signed by Herminia Lawler MD> 05/11/22 1435 [facility] Work Phone: Evaluation note* Diagnosis Onset Date Resolution Status CAD (coronary artery disease) acute DM (diabetes mellitus) acute Elevated troponin acute Epigastric abdominal pain ac [place] HLD (hyperlipidemia) acute HTN (hypertension) acute [facility] Work Phone: Evaluation noteNo assessment information available [facility] Work Phone: Hospital Discharge instructions [...] worsening in symptoms or developing new [facility] Work Phone: Reason for visit NarrativeSelf Referral, [facility] Visit Codes, TKM 2 IDDMNort Toplist Other Summary Purpose Family History No Family [...] and content) DATE CREATED AUTHOR 04/28/2022 [facility] DATE CREATED AUTHOR AUTHOR'S ORGANIZ ATION 05/27/2022 [facility] DATE CREATED AUTHOR AUTHOR'S ORGANIZ ATION 12/05/2022 [facility] DATE CREATED AUTHOR AUTHOR'S ORGANIZ ATION 05/14/2023 [facility] DATE CREATED AUTHOR AUTHOR'S ORGANIZ ATION 09/28/2023 [facility] DATE CREATED AUTHOR AUTHOR'S ORGANIZ ATION 04/28/2024 [facility] DATE CREATED AUTHOR AUTHOR'S ORGANIZ ATION 05/07/[address] [facility] EPIC Care Teams (unrecognized [...] BE BASED ON THE PRIMARY CLINICAL RECORDS. [employer] provides no warranty or guarantee of the accuracy or completeness of information in this document.
--- NOTE | 2024-05-31 05:10 | ED.GENADUL1 ---
HPI HPI - General Adult General Chief complaint: Recheck/Abnormal Lab/Rx Stated complaint: BLOOD PRESSURE ISSUES Time Seen by Provider: 05/31/24 05:06 Source: patient Mode of arrival: walk-in Limitations: no limitations History of Present Illness HPI narrative: history of HTN. was discharged from hospital yesterday after admission for HTN. Took Losartan around 12:30AM. States she can tell when her BP is elevated. Denies chest pain, dyspnea, headache. Arrives and BP manual 172/100 Related Data Home Medications ?Medication ?Instructions ?Recorded ?Confirmed atorvastatin 80 mg tablet 80 mg PO .qhs 09/04/23 05/31/24 carvedilol 12.5 mg tablet 12.5 mg PO Q12H 09/04/23 05/31/24 cyproheptadine 4 mg tablet 2 mg PO .qhs 09/04/23 05/31/24 insulin glargine 100 unit/mL 25 unit subcut QAM 09/04/23 05/31/24 subcutaneous solution (Lantus U-100 Insulin) latanoprost 0.005 % eye drops 1 drp ophthalmic (eye) .qhs 05/28/24 05/31/24 ofloxacin 0.3 % eye drops 1 drp ophthalmic (eye) QID 05/28/24 05/31/24 prednisolone acetate 1 % eye 1 drp ophthalmic (eye) QID 05/28/24 05/31/24 drops,suspension sitagliptin phos 100 mg-metformin 1 tab PO DAILY 05/28/24 05/31/24 ER 1,000 mg tablet,extend rel 24h mp (Janumet XR) Previous Rx's ?Medication ?Instructions ?Recorded aspirin 81 mg chewable tablet 81 mg PO DAILY #30 tabs 05/30/24 losartan 50 mg tablet 50 mg PO DAILY #30 tabs 05/30/24 Allergies Allergy/AdvReac Type Severity Reaction Status Date / Time iodine AdvReac Intermediate Rash Verified 05/31/24 04:50 Sulfa (Sulfonamide AdvReac Intermediate Rash Verified 05/31/24 04:50 Antibiotics) empagliflozin AdvReac uti Verified 05/31/24 04:50 [From Jardiance] Opioid HPI Opioid Management Most Recent Opioid Data: Last Pain Scale 1 05/28/24 22:00 Last Pain Assessment 05/30/24 13:34 Last ORT Total Score 0 05/28/24 14:15 Last ORT Risk Category Low Risk 05/28/24 14:15 Review of Systems ROS Status of ROS 10 or more systems reviewed and unremarkable except as noted in history and below [facility] Medical History (Updated 05/31/24 @ 06:54 by Doron Villarreal MD) Type 2 diabetes mellitus ?E11.9 - Type 2 diabetes mellitus without complications (ICD-10) HLD (hyperlipidemia) ?E78.5 - Hyperlipidemia, unspecified (ICD-10) CAD (coronary artery disease) ?I25.10 - Atherosclerotic heart disease of nikolai coronary artery without angina pectoris (ICD-10) Pacemaker ?Z95.0 - Presence of cardiac pacemaker (ICD-10) Dehydration ?E86.0 - Dehydration (ICD-10) Metabolic acidosis ?E87.20 - Acidosis, unspecified (ICD-10) Hyponatremia ?E87.1 - Hypo-osmolality and hyponatremia (ICD-10) Bradycardia ?R00.1 - Bradycardia, unspecified (ICD-10) URI (upper respiratory infection) ?J06.9 - Acute upper respiratory infection, unspecified (ICD-10) Diabetes ?E11.9 - Type 2 diabetes mellitus without complications (ICD-10) Heart attack ?I21.9 - Acute myocardial infarction, unspecified (ICD-10) Uterine cancer ?C55 - Malignant neoplasm of uterus, part unspecified (ICD-10) Surgical History (Updated 05/28/24 @ 14:29 by Charlene Cunningham LPN) History of cataract surgery ?Z98.49 - Cataract extraction status, unspecified eye (ICD-10) History of heart artery stent ?Z95.5 - Presence of coronary angioplasty implant and graft (ICD-10) Social History (Updated 05/28/24 @ 14:29 by Charlene Cunningham LPN) Within the past year, how often did you have a drink containing alcohol: never Within the past year, how many standard drinks containing alcohol did you have on a typical day: 1 or 2 Within the past year, how often did you have six or more drinks on one occasion: never Total score: 0 Score interpretation: A score less than 3 is consistent with normal alcohol consumption. Smoking status: Never smoker Second hand tobacco smoke exposure: No Non-prescribed substance use: denies use Known occupational exposures/hazards: No Highest level of school completed/degree received: high school graduate Do you want help with school or training: No In a typical week, how many times do you talk on the telephone with family, friends, or neighbors: 3 or more times per week How often do you get together with friends or relatives: 3 or more times per week How often do you attend christian or scientology services: never Do you belong to any clubs or organizations such as christian groups unions, fraternal or athletic groups, or school groups: no Little interest or pleasure in doing things: not at all Feeling down, depressed, or hopeless: not at all Feel stressed/tense/nervous/anxious/difficulty sleeping: not at all Due to disability, difficulty making decisions: No Exam Constitutional Vital Signs, click to edit/add: Last Vital Signs Temp 98 F 05/31/24 04:45 Pulse 60 05/31/24 06:45 Resp 24 H 05/31/24 06:45 BP 123/64 05/31/24 06:45 Pulse Ox 97 05/31/24 06:45 O2 Del Method Room Air 05/31/24 04:45 Common normals: no apparent distress, average body habitus, oriented x3, no limitations, healthy appearing, alert and well nourished HENSC Common normals: normocephalic and head/scalp atraumatic Eye Common normals: EOMs intact bilaterally and conjunctivae normal Respiratory Common normals: normal respiratory effort, no retractions, no use of accessory muscles and clear to auscultation bilaterally Cardio Common normals: regular rate, regular rhythm, S1 normal heart sound and S2 normal heart sound GI Common normals: Normal to inspection, nondistended, normoactive bowel sounds present and soft to palpation Extremity Common normals: normal to inspection and full ROM Neuro Common normals: oriented x3, CN's II-XII intact bilaterally, moves all extremities and no focal motor deficits Psych Appearance: grossly normal Course Vital Signs Vital signs: Vital Signs Temperature 98 F 05/31/24 04:45 Pulse Rate 66 05/31/24 04:45 Respiratory Rate 18 05/31/24 04:45 Pulse Oximetry 99 05/31/24 04:45 Oxygen Delivery Method Room Air 05/31/24 04:45 Temperature 98 F 05/31/24 04:45 Pulse Rate 60 05/31/24 06:45 Respiratory Rate 24 H 05/31/24 06:45 Blood Pressure 123/64 05/31/24 06:45 Pulse Oximetry 97 05/31/24 06:45 Oxygen Delivery Method Room Air 05/31/24 04:45 Medical Decision Making MDM Narrative Medical decision making narrative: patient discharged home yesterday. returns tonight complaining of HTN. labs unremarkable including normal troponin. BP responded nicely to catapres. Patient was asymptomatic. No chest pain, dyspnea or headache. discharged to follow up with her family doctor Lab Data Labs: Lab Results 05/31/24 Range/Units 04:55 WBC 7.2 (4.0-11.0) 10^3/uL RBC 5.01 (4.20-5.40) 10^6/uL Hgb 13.5 (12.0-16.0) g/dL Hct 41.6 (36.0-48.0) % MCV 83.0 (81.0-99.0) fL MCH 26.9 (26.7-34.0) pg MCHC 32.5 (29.9-35.2) g/dL RDW 14.2 (11.0-15.0) % Plt Count 214 (150-450) 10^3/uL MPV 9.6 (9.5-13.5) fL Neut % (Auto) 51.5 (43.0-75.0) % Lymph % (Auto) 38.5 (20.5-60.0) % Jackson % (Auto) 7.3 (1.7-12.0) % Eos % (Auto) 2.0 (0.9-7.0) % Baso % (Auto) 0.6 (0.2-2.0) % Neut # (Auto) 3.7 (1.4-6.5) 10^3/uL Lymph # (Auto) 2.8 (1.2-3.8) 10^3/uL Jackson # (Auto) 0.5 (0.3-0.8) 10^3/uL Eos # (Auto) 0.1 (0.0-0.7) 10^3/uL Baso # (Auto) 0.0 (0.0-0.1) 10^3/uL Abs Immat Gran (auto) 0.01 (0.00-0.03) 10^3/uL Imm/Tot Granulo (auto) 0.1 (0.0-0.5) % Sodium 132 L (136-145) mmol/L Potassium 3.9 (3.5-5.1) mmol/L Chloride 100 (98-107) mmol/L Carbon Dioxide 24.6 (21.0-32.0) mmol/L Anion Gap 11.3 BUN 16.0 (7.0-18.0) mg/dL Creatinine 0.96 (0.55-1.02) mg/dL Est GFR ( Amer) >60 (>=60) Est GFR (Non-Af Amer) 55 L (>=60) BUN/Creatinine Ratio 16.7 Glucose 175 H (74-106) mg/dL Calcium 9.7 (8.5-10.1) mg/dL Troponin I High Sens 14.5 (4.0-51.3) pg/mL Discharge Plan Discharge Chief Complaint: Recheck/Abnormal Lab/Rx Clinical Impression: Hypertension Patient Disposition: Home, Self-Care Prescriptions / Home Meds: No Action atorvastatin 80 mg tablet 80 mg PO .qhs carvedilol 12.5 mg tablet 12.5 mg PO Q12H cyproheptadine 4 mg tablet 2 mg PO .qhs insulin glargine [Lantus U-100 Insulin] 100 unit/mL solution 25 unit subcut QAM Janumet XR 100-1,000 mg tablet, ER multiphase 24 hr 1 tab PO DAILY latanoprost 0.005 % drops 1 drp OPHTHALMIC (EYE) .qhs prednisolone acetate 1 % drops,suspension 1 drp OPHTHALMIC (EYE) QID Rx Instructions: right eye ofloxacin 0.3 % drops 1 drp ophthalmic (eye) QID Rx Instructions: RIGHT EYE losartan 50 mg tablet 50 mg PO DAILY Qty: 30 0RF aspirin 81 mg tablet,chewable 81 mg PO DAILY Qty: 30 0RF Print Language: Austrian Instructions: Hypertension (ED) Referrals: MARIAM KIRBY [Primary Care Provider] - 1 week
--- NOTE | 2024-05-31 05:23 | ECG_ITS ---
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
[2024-05-31 05:32] LABS: Basophils Percent Auto 0.6 % (0.2-2.0); Eosinophils Absolute Auto 0.1 10^3/uL (0.0-0.7); Hematocrit 41.6 % (36.0-48.0); Hemoglobin 13.5 g/dL (12.0-16.0); Immature Granulocytes Abs Auto 0.01 10^3/uL (0.00-0.03); Immature Granulocytes Pct Auto 0.1 % (0.0-0.5); Lymphocytes Absolute Auto 2.8 10^3/uL (1.2-3.8); Lymphocytes Percent Auto 38.5 % (20.5-60.0); Mean Corpuscular HGB Conc 32.5 g/dL (29.9-35.2); Mean Corpuscular Hemoglobin 26.9 pg (26.7-34.0); Mean Platelet Volume 9.6 fL (9.5-13.5); Monocytes Absolute Auto 0.5 10^3/uL (0.3-0.8); Monocytes Percent Auto 7.3 % (1.7-12.0); Neutrophils Absolute Auto 3.7 10^3/uL (1.4-6.5); Neutrophils Percent Auto 51.5 % (43.0-75.0); Platelet Count 214 10^3/uL (150-450); Red Blood Count 5.01 10^6/uL (4.20-5.40); Red Cell Distribution Width 14.2 % (11.0-15.0); White Blood Count 7.2 10^3/uL (4.0-11.0)
[2024-05-31] MEDS: CLONIDINE HCL 0.1 MG TABLET PO (05:36)
[2024-05-31 05:45] LABS: Anion Gap 11.3; BUN Creatinine Ratio 16.7; Calcium 9.7 mg/dL (8.5-10.1); Carbon Dioxide 24.6 mmol/L (21.0-32.0); Chloride 100 mmol/L (98-107); Estimated GFR (African America >60 (>=60); Estimated GFR (Non-African Ame 55 (>=60); Glucose 175 mg/dL (74-106); Potassium 3.9 mmol/L (3.5-5.1); Sodium 132 mmol/L (136-145); Troponin I High Sensitivity 14.5 pg/mL (4.0-51.3)
== END 2024-05-31 07:09 | disposition home or self-care (01) ==
PROVIDERS: Emergency Provider Internal Medicine; PCP Internal Medicine
DX: I10 Essential (primary) hypertension (principal)
CPT/HCPCS: 36415; 80048; 84484; 85025; 93005; 99284

== ENCOUNTER 2024-08-29 08:13 | Outpatient (OUT) | payer MEDICARE, SELFPAY ==
--- OUTSIDE RECORDS SUMMARY | 2024-08-29 08:29 | XMS_ITS | CCD ---
Author Organization [facility] Care Team Providers Care National Business Director Name Role Phone RODRICK BUTLER Primary Care Unavailable RODRICK BUTLER Referring Unavailable SILVINA BREEN Admitting Unavailable SILVINA BREEN Attending Unavailable RODRICK BUTLER Primary Care Unavailable RODRICK BUTLER Referring Unavailable SILVINA BREEN Admitting Unavailable SILVINA BREEN Attending Unavailable CHANDA Butler Primary Care Provider MD Herminia Lawler Admit Provider [phone] MD Herminia Lawler Attending Provider KY Rojas Other Provider Unavailable DO Darrion Gilbert Other Provider [phone] MD Bo Boothe Other Provider [phone] MD Itz Townsend Other Provider MD Azra Cedillo Other Provider [phone] MD Jesse Sahu Other Provider JUAN Ramos Other Provider MD Jackie Curtis Other Provider MD August Obrien Other Provider MD Brenna Veras Other Provider Izt Townsend II Attending Unavailable Saundra ARMAS, Itz Attending Unavailable Saundra ARMAS, Itz Attending Unavailable Heather Soler Unavailable DR RODRICK BUTLER Attending Unavailable LUKE, DR BECERRA Admitting Unavailable LUKE, DR BECERRA Primary Care Unavailable LUKE, DR BECERRA Consulting Unavailable JOHNATHON, DR LOUIS Brice Consulting Unavailable LUKE, DR BECERRA Attending Unavailable BUTLER, DR BECERRA Admitting Unavailable BUTLER, DR BECERRA Primary Care Unavailable BUTLER, DR BECERRA Consulting Unavailable ZIEBER, DR LOUIS Brice Consulting Unavailable BUTLER, DR BECERRA Primary Care Unavailable REFUGIO, AHMAD Attending Unavailable REFUGOI, AHMAD Admitting Unavailable REFUGIO, AHMAD Consulting Unavailable [...] DR CARMEN Kearns Consulting Unavailable JACKIE, DR HOEP Consulting Unavailable OLEARY, WINESTEFANÍA Consulting Unavailable FAWWAD, CARRASCO H Consulting Unavailable NEFCY, PETER Consulting Unavailable CARLOS, REJI Attending Unavailable CARLOS, REJI Admitting Unavailable BUTLER, DR BECERRA Primary Care Unavailable NADERER, DR ARTURO Vidal Consulting Unavailable JAME, THOAMS Consulting Unavailable CARLOS, REJI Consulting Unavailable MAYURI, CHRISTINA Consulting Unavailable LUKE, DR BECERRA Primary Care [...] Unavailable ZIEBER, DR LOUIS Brice Consulting Unavailable Heather Soler Attending Unavailable Heather Soler Admitting Unavailable Butler, Rodrick Primary Care Unavailable Rodrick Butler MD Unavailable [phone] Rodrick Butler MD Primary Care Provider [phone] RODRICK BUTLER Attending Unavailable RODRICK BUTLER Attending Unavailable RODRICK BUTLER Attending Unavailable RODRICK BUTLER Attending Unavailable HEMLONDON, BEVERLY Garcia Attending Unavailable RODRICK BUTLER Attending Unavailable RODRICK BUTLER Attending Unavailable JUSTINE, SHARONA Garcia Attending Unavailable HEMMER, BEVERLY Garcia Attending Unavailable JUSTINESHARONA Attending Unavailable RODRICK BUTLER Attending Unavailable HEMMER, BEVERLY Garcia Attending Unavailable RODRICK BUTLER Attending Unavailable EULACODY Collins Referring Unavailable ELTAHAWY, EHAB Attending Unavailable ELTAHAWY, EHAB Attending Unavailable ANDRESSA, ABBIE Attending Unavailable EULA, CODY Referring Unavailable EULA, CODY Referring Unavailable FARIBA, SHAMIKA Referring Unavailable FARIBA, SHAMIKA Referring Unavailable PIRKL, OSWALD Referring Unavailable PIRKL, OSWALD Referring Unavailable EULA, CODY Referring Unavailable YEARTY, JAMAICA Referring Unavailable ANDRESSA, ABBIE Attending Unavailable EULA, CODY Attending Unavailable MIRI, ISIDORO Admitting Unavailable HOYMIKALA Referring Unavailable EULA, CODY Admitting Unavailable ALEX MARTINEZ Attending Unavailab LUC Jarquin Attending Unavailable Allergies Allergy Classification Reported Allergen(s) Allergy Type Date of Onset Reaction(s) Facility (4 sources) Iodine Drug Allergy 03-07-20 22 Rash [facility] Rep[facility] (6 sources) Sulfonamides (Antibiotic); 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: [SULFA (SULFONAMIDE ANTIBIOTICS)] Drug allergy (disorder) 07-10-20 15 Blister [facility] (4 sources) Shellfish; 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: [shellfish derived] Propensity to adverse reactions 05-09-20 Vomiting [facility] (1 source) Sulfonamides (Antibiotic) Propensity to adverse reactions mouth sores [facility] Other (1 source) shellfish/iodine Propensity to adverse reactions vomiting [facility] Other (1 source) empagliflozin Drug Allergy [facility] (1 source) Iodine Drug Allergy 07-10-20 15 [facility] (1 source) Shellfish Drug allergy (disorder) 07-10-20 15 [facility] (1 source) Iodine Drug Allergy 05-09-20 [facility] Repository (1 source) Sulfonamides (Antibiotic) Drug allergy (disorder) 05-09-20 [facility] Repository (13 sources) Iodine Drug Allergy 03-08-20 02 [facility] (13 sources) Shellfish Propensity to adverse reactions 03-08-20 02 [facility] (13 sources) Sulfonamides (Antibiotic) Drug Allergy 03-08-20 02 Unknown, Swelling [facility] (13 sources) Shellfish-Derived Products Drug Allergy 01-28-20 23 Unknown [facility] (1 source) empagliflozin; 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: [EMPAGLIFLOZIN] Drug Allergy 08-01-20 [facility] Rep[facility] (1 source) sacubitril / valsartan; 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: [SACUBITRIL-VALSA RTAN] Drug Allergy 07-13-20 [facility] Repository Medications Current Medications Medication Drug Class(es) Dates Sig (Normalized) Sig (Original) aspirin 81 mg delayed release oral tablet (17 sources) Platelet Aggregation Inhibitor, Nonsteroidal Anti-inflammatory Drug Start: 05-09-2022 take 81 mg by mouth once daily Aspirin Active 81 MG PO Daily May 08, 2022 11:00pm atorvastatin 80 mg oral tablet (17 sources) HMG-CoA Reductase Inhibitor Start: 05-09-2022 End: 07-12-2025 take 1 tablet by mouth at bedtime atorvastatin (Lipitor) 80 MG tablet Indications: Atherosclerosis of [place] coronary artery of [place] heart without angina pectoris (CMS/HCC) , Mixed hyperlipidemia (CMS/HCC) Take 1 tablet (80 mg) by mouth at bedtime 100 tablet 3 08/13/2023 09/16/2024 Active take 1 tablet by keaton th every twenty-four hours Atorvastatin Calcium 40 MG 1 tablet Oral ly Once a day Active carvedilol 12.5 mg oral tablet (15 sources) alpha-Adrenergic Reginaldo, beta-Adrenergic Reginaldo Start: 08-13-2023 End: 07-12-2025 take 1 tablet by mouth in the morning carvedilol (Coreg) 12.5 MG tablet Indications: Benign essential hypertension (CMS/HCC) , Chronic systolic heart failure (CMS/HCC) Take 1 tablet (12.5 mg) by mouth in the morning and 1 tablet (12.5 mg) in the evening. Take with meals. 200 tablet 3 06/07/2024 07/12/2025 Active take 1 tablet by keaton th every twelve hours Carvedilol 12.5 MG 1 tablet with food Orally Twice a day Active ciprofloxacin 500 mg oral tablet (6 sources) Quinolone Antimicrobial Start: 04-07-2024 End: 05-03-2024 take 1 tablet by mouth in the morning ciprofloxacin (Cipro) 500 MG tablet Indications: Acute cystitis with hematuria Take 1 tablet (500 mg) by mouth in the morning and 1 tablet (500 mg) before bedtime. Do all this for 7 days. 14 tablet 04/26/2024 05/03/2024 Active cloNIDine hydrochloride 0.1 mg oral tablet (11 sources) Central alpha-2 Adrenergic Agonist Start: 06-01-2024 End: 06-01-2025 take 1 tablet by mouth in the morning cloNIDine (Catapres) 0.1 MG tablet Indications: Benign essential hypertension (CMS/HCC) Take 1 tablet (0.1 mg) by mouth in the morning and 1 tablet (0.1 mg) before bedtime. 06/08/2024 Active clopidogrel 75 mg oral tablet (4 sources) P2Y12 Platelet Inhibitor Start: 05-09-2022 take 75 mg by mouth once daily Clopidogrel Active 75 MG PO Daily May 08, 2022 11:00pm cyproheptadine hydrochloride 4 mg oral tablet (13 sources) Start: 12-22-2023 cyproheptadine (Periactin) 4 MG tablet Indications: Vertigo TAKE 1/2 TABLET AT BEDTIME 45 tablet 3 12/22/2023 Active dapagliflozin 10 mg oral tablet (4 sources) Sodium-Glucose Cotransporter 2 Inhibitor Start: 05-09-2022 take 1 tablet by mouth once daily Dapagliflozin Propanediol (Farxiga) 10 mg tablet Active 10 MG PO Daily May 08, 2022 11:00pm dorzolamide 20 mg/ml / timolol 5 mg/ml ophthalmic solution (16 sources) Carbonic Anhydrase Inhibitor, beta-Adrenergic Reginaldo Start: 05-09-2022 take 1 drop(s) into the eye(s) twice daily Dorzolamide-Timolol Active 1 DROPS EYE-RIGHT 2 times daily May 08, 2022 11:00pm End: 07-04-2024 take 1 drop(s) into the eye(s) in the morning dorzolamide-timolol (Cosopt) 22.3-6.8 MG/ML ophthalmic solution Administer 1 drop into both eyes in the morning and 1 drop before bedtime. 07/04/2024 Discontinued (Other) take 1 drop(s) into the eye(s) twice daily Dorzolamide HCl-Timolol Mal 22.3-6.8 MG/ML 1 drop into affected eye Ophthalmic Twice a day Active famotidine 20 mg oral tablet (3 sources) Histamine-2 Receptor Antagonist Start: 05-11-2022 take 20 mg by mouth twice daily Famotidine Active 20 MG PO Twice daily 60 30 May 10, 2022 11:00pm FreeStyle Marianne 2 [place] - (1 source) Start: 09-23-2022 FreeStyle Libr e 2 [place] - as directed -- 5 x day for 365 days Sending to [facility] Aug, Active FreeStyle Marianne 2 Sensor - (1 source) Start: 09-23-2022 FreeStyle Libr e 2 Sensor - as directed in vitro q 14 days for 84 days Sending to [facility] Aug, Active furosemide 20 mg oral tablet (3 sources) Loop Diuretic Start: 05-09-2022 Furosemide Act edmundo 0 .ROUTE .COMPLEX May 08, 2022 11:00pm TAKE 1 TABLET BY MOUTH DAILY FOR 3 DAYS then stop; may repeat NEEDED for increased swelling glipiZIDE (1 source) Sulfonylurea Glucotrol Active 3 ml insulin glargine 100 unt/ml pen injector (20 sources) Insulin Analog Start: 04-26-2024 insulin glargi ne (Lantus SoloStar) 100 UNIT/ML pen Indications: Diabetic peripheral neuropathy (CMS/HCC) , Type 2 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 gangrene, with long-term current use of insulin (CMS/HCC) Inject 25 Units under the skin in the morning. 27 mL 3 04/26/2024 Active Start: 04-22-2024 End: 04-26-2024 insulin glargine (Lantus SoloStar) 100 UNIT/ML pen Indications: Diabetic peripheral neuropathy (CMS/HCC) , Type 2 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 gangrene, with long-term current use of insulin (CMS/HCC) Inject 25 Units under the skin in the morning. 27 mL 3 04/26/2024 Active Start: 08-13-2023 End: 04-19-2024 inject 25 [IU] by subcutaneous injection in the morning, then inject 25 [IU] by subcutaneous injection in the morning, then inject 20 [IU] by subcutaneous injection twice daily in the evening insulin glargine (Lantus SoloStar) 100 UNIT/ML pen Indications: Diabetic peripheral neuropathy (CMS/HCC) , Type 2 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 gangrene, with long-term current use of insulin (CMS/HCC) Inject 25 Units under the skin in the morning. INJECT 25 UNITS UNDER THE SKIN IN THE MORNING AND 20 UNITS IN THE EVENING (TWICE DAILY). 27 mL 3 04/19/2024 Active Start: 05-09-2022 Insulin Glargi ne (Lantus Solostar [...] MG 1 tablet Orally at hs Active losartan potassium 50 mg oral tablet (14 sources) Angiotensin 2 Receptor Reginaldo Start: 4 End: 5 take 1 tablet by mouth in the morning losartan (Cozaar) 50 MG tablet Indications: Benign essential hypertension (CMS/HCC) Take 1 tablet (50 mg) by mouth in the morning and 1 tablet (50 mg) before bedtime. 60 tablet 11 06/01/2024 06/01/2025 Active Start: 05-09-2022 End: 05-09-2022 Losartan Discontinued MG TAB LET May 08, 2022 11:00pm May 09, 2022 2:23pm metFORMIN hydrochloride 500 mg oral tablet (1 source) Biguanide take 2 tablets by mouth twice daily metFORMIN HCl 500 MG 2 tablets Orally Twice a day Active 24 hr metFORMIN hydrochloride 1000 mg / SITagliptin 100 mg extended release oral tablet (13 sources) Biguanide, Dipeptidyl Peptidase 4 Inhibitor Start: 4 take 1 tablet by mouth every twenty-four hours at mealtime SITagliptin-metFORM IN ER (Janumet XR) 100-1000 MG per 24 hr tablet Indications: Type 2 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 Take with meals. 100 tablet 3 02/22/2024 Active 24 hr metoprolol succinate 50 mg extended release oral tablet (6 sources) beta-Adrenergic Reginaldo Start: take 50 mg by mouth once daily Metoprolol Succinate Active 50 MG PO Daily May 08, 2022 11:00pm Start: 05-09-2022 End: 05-09-2022 Metoprolol Succinate Discont inued MG PO May 08, 2022 11:00pm May 09, 2022 9:42am phenazopyridine hydrochloride 200 mg delayed release oral tablet (4 sources) Start: 04-19-2024 End: 04-28-2024 take 1 tablet by mouth three times daily as needed for muscle spasms phenazopyridine (Pyridium) 200 MG tablet Indications: Acute cystitis with hematuria Take 1 tablet (200 mg) by mouth 3 (three) times a day as needed for bladder spasms for up to 2 days 6 tablet 04/26/2024 04/28/2024 Active potassium chloride 10 meq extended release oral tablet (3 sources) Start: 05-09-2022 take 10 mEq by mouth twice daily as needed Potassium Chloride Active 10 MEQ PO Twice daily May 08, 2022 11:00pm take only when taking PRN furosemide prednisoLONE acetate 10 mg/ml ophthalmic suspension (13 sources) Corticosteroid Start: 03-25-2024 take 1 drop(s) into the eye(s) four times daily prednisoLONE acetate (Pred-Forte) 1 % ophthalmic suspension instill 1 DROP IN THE RIGHT EYE FOUR TIMES DAILY 03/25/2024 Active rOPINIRole 0.25 mg oral tablet (3 sources) Nonergot Dopamine Agonist Start: 05-09-2022 take 0.25 mg by mouth once daily Ropinirole Active 0.25 MG PO Daily May 08, 2022 11:00pm sacubitril 24 mg / valsartan 26 mg oral tablet (14 sources) Angiotensin 2 Receptor Reginaldo Start: 05-09-2022 take 1 tablet by mouth twice daily Sacubitril-Valsartan (Entresto) 24-26 mg tablet Active 1 TAB PO Twice daily May 08, 2022 11:00pm End: 06-08-2024 take 1 tablet by mouth in the morning sacubitril-valsartan (Entresto) 24-26 MG tablet Take 1 tablet by mouth in the morning and 1 tablet before bedtime. 06/08/2024 Discontinued (Other) ENTRESTO 24 mg/2 6 mg 1 orally twice a day Active zolpidem tartrate 10 mg oral tablet (1 source) gamma-Aminobutyric Acid-ergic Agonist take 1 tablet by mouth every twenty-four hours Ambien 10 MG 1 tablet at bedtime as needed Orally Once a day Active Completed/Discontinued Medications Medication Drug Class(es) Dates Sig (Normalized) Sig (Original) empagliflozin 10 mg oral tablet (2 sources) Sodium-Glucose Cotransporter 2 Inhibitor Start: 12-30-2023 End: 04-19-2024 take 1 tablet by mouth once daily empagliflozin (Jardiance) 10 MG Indications: Type 2 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 gangrene, with long-term current use of insulin ([facility]) Take 1 tablet (10 mg) by mouth Daily 30 tablet 11 12/30/2023 04/19/2024 Discontinued (Side effects) latanoprost 0.05 mg/ml ophthalmic solution (12 sources) Prostaglandin Analog Start: 10-05-2023 End: 07-04-2024 take 1 drop(s) into the eye(s) at bedtime latanoprost (Xalatan) 0.005 % ophthalmic solution Administer 1 drop into both eyes at bedtime 10/05/2023 07/04/2024 Discontinued (Other) ofloxacin 3 mg/ml ophthalmic solution (12 sources) Quinolone Antimicrobial Start: 03-25-2024 End: 07-04-2024 take 1 drop(s) into the eye(s) four times daily ofloxacin (Ocuflox) 0.3 % ophthalmic solution instill 1 DROP IN THE RIGHT EYE FOUR TIMES DAILY 03/25/2024 07/04/2024 Discontinued (Other) Problems Active Problems Problem Classification Problem Date Documented Da te Episodic/Chronic Abdominal pain (11 sources) Epigastric pain; 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: [Epigastric pain] Onset: 05-13-2022 05-10-2022 Episodic Acute myocardial infarction (13 sources) Myocardial infarction; 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: [Non-ST elevation (NSTEMI) myocardial infarction] Onset: 05-13-2022 05-09-2022 Chronic Administrative/social admission (1 source) Dietary counseling and surveillance Episodic Cardiac dysrhythmias (6 sources) Palpitations; 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: [PALPITATIONS] Onset: 08-28-2022 Episodic Chronic kidney disease (1 source) Chronic kidney disease; 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: [CHRONIC KIDNEY DISEASE STAGE 3A] Onset: 06-11-2022 Conduction disorders (20 sources) Heart block ; 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: [Conduction disorder, unspecified] Onset: 09-07-2023 09-10-2023 Chronic Congestive heart failure; nonhypertensive (20 sources) Unspecified systolic (congestive) heart failure; 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: [Chronic systolic (congestive) heart failure] Onset: 03-12-2022 Chronic Coronary atherosclerosis and other heart disease (20 sources) Coronary arteriosclerosis; 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: [Atherosclerotic heart disease of [place] coronary artery without angina pectoris] Onset: 09-08-2022 05-09-2022 Chronic Diabetes mellitus with complications (20 sources) Hyperglycemia due to type 2 diabetes mellitus; 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: [Type 2 diabetes mellitus with hyperglycemia] Onset: 06-14-2022 Chronic Disorders of lipid metabolism (20 sources) Hyperlipidemia; 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: [Hyperlipidemia, unspecified] Onset: 09-08-2022 05-09-2022 Chronic Diverticulosis and diverticulitis (14 sources) Diverticular disease of colon; 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: [Diverticulosis of large intestine without perforation or abscess without bleeding] Onset: 01-27-2023 01-27-2023 Chronic E Codes: Fall (1 source) Unspecified fall, initial encounter; 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: [UNSPECIFIED FALL INITIAL ENCOUNTER] Onset: 09-08-2022 Episodic Essential hypertension (20 sources) Hypertensive disorder; 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: [Essential (primary) hypertension] Onset: 01-27-2023 05-09-2022 Chronic Hypertension with complications and secondary hypertension (15 sources) Hypertensive chronic kidney disease with stage 1 through stage 4 chronic kidney disease, or unspecified chronic kidney disease; 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: [Hypertensive heart and chronic kidney disease with heart failure and stage 1 through stage 4 chronic kidney disease, or unspecified chronic kidney disease] Onset: 08-01-2022 04-14-2023 Chronic Immunizations and screening for infectious disease (2 sources) Patient encounter status; 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: [Encounter for immunization] 06-08-2024 Episodic Menopausal disorders (17 sources) Other primary ovarian failure; 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: [Ovarian failure] Onset: 09-29-2022 Chronic Nonspecific chest pain (5 sources) Other chest pain; 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: [Chest pain, unspecified] Onset: 02-11-2022 Episodic Nutritional deficiencies (2 sources) Vitamin D deficiency; 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: [Vitamin D deficiency, unspecified] Chronic Osteoporosis (1 source) Age-related osteoporosis without current pathological fracture; 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: [AGE-REL OSTEOPOR W/O CURR PATH FX] Onset: 10-01-2022 Chronic Other aftercare (1 source) Long-term current use of insulin; 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: [custodial (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 of insulin] Episodic Other aftercare (4 sources) intermediate teacher (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 of insulin; 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: [FLAKE CUTTER OPERATOR CURRENT USE OF INSULIN] Onset: 11-25-2022 Episodic Other aftercare (1 source) intermediate teacher (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 of aspirin; 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: [FLAKE CUTTER OPERATOR CURRENT USE OF ASPIRIN] Onset: 11-25-2022 Episodic Other aftercare (1 source) Other terminal block assembler (current) drug therapy; 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: [OTH FLAKE CUTTER OPERATOR CURRENT DRUG THERAPY] Onset: 11-25-2022 Episodic Other aftercare (1 source) intermediate teacher (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 of antithrombotics/ant iplatelets; 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: [FLAKE CUTTER OPERATOR ANTITHROMBOT/ANTIPL ATLETS] Onset: 11-25-2022 Episodic Other endocrine disorders (4 sources) Other specified disorders of adrenal gland; 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: [OTHER SPEC DISORDERS ADRENAL GLAND] Onset: 08-18-2022 Chronic Other endocrine disorders (13 sources) Mass of left adrenal gland; 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: [Other specified disorders of adrenal gland] Onset: 01-27-2023 01-27-2023 Chronic Other gastrointestinal disorders (1 source) H/O: colitis; 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: [Personal history of other diseases of the digestive system] Episodic Other hematologic conditions (3 sources) Raised cardiac enzyme or marker; 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: [Other specified abnormalities of plasma proteins] 05-09-2022 Episodic Other hematologic conditions (2 sources) Other specified abnormalities of plasma proteins; 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: [Other abnormal blood chemistry] 05-11-2022 Episodic Other hereditary and degenerative nervous system conditions (13 sources) Restless legs; 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: [Restless legs syndrome] Onset: 08-01-2022 04-14-2023 Chronic Other injuries and conditions due to external [...] LUMP LOW LIMB MIKE] Onset: 09-08-2022 Episodic Transient cerebral ischemia (2 sources) Transient cerebral ischemia; 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: [Transient cerebral ischemic attack, unspecified] 06-01-2024 Chronic Unclassified (1 source) CHRN KIDNEY DISEASE STG 3 UNSP; 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: [CHRN KIDNEY DISEASE STG 3 UNSP] Onset: 11-25-2022 Unclassified (1 source) CONTACT W/AND (SUSP) EXPOS COVID-19; 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: [CONTACT W/AND (SUSP) EXPOS COVID-19] Onset: 09-08-2022 Past or Other Problems Problem Classification Problem Date Documented Date Episodic/Chronic Conditions associated with dizziness or vertigo (20 sources) Dizziness and giddiness; 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: [Vertigo of central origin] Onset: 2 Episodic Coronary atherosclerosis and other heart disease (15 sources) Presence of coronary angioplasty implant and graft; 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: [Percutaneous transluminal coronary angioplasty status] Onset: 2 04-14-2023 Episodic Diabetes mellitus without complication (20 sources) Diabetes mellitus; 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: [Type 2 diabetes mellitus without complications] Onset: 2 Resolved: 4 05-09-2022 Chronic Genitourinary symptoms and ill-defined conditions (2 sources) Dysuria; 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: [Dysuria] 04-19-2024 Episodic Other lower respiratory disease (1 source) Dyspnea, unspecified; 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: [DYSPNEA UNSPECIFIED] Onset: 2 Episodic Other nervous system disorders (13 sources) Abnormal gait; 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: [Unspecified abnormalities of gait and mobility] Onset: 3 01-27-2023 Episodic Other nervous system disorders (13 sources) Ataxia; 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: [Ataxia, unspecified] Onset: 3 01-27-2023 Episodic Other nervous system disorders (13 sources) Skin sensation disturbance; 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: [Unspecified disturbances of skin sensation] Onset: 3 01-27-2023 Episodic Other screening for suspected conditions (not mental disorders or infectious disease) (5 sources) Abnormal result of other cardiovascular function study; 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: [Abnormal electrocardiogram [ECG] [EKG]] Onset: 2 Episodic Residual codes; unclassified (13 sources) Insomnia; 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: [Insomnia, unspecified] Onset: 3 01-27-2023 Episodic Residual codes; unclassified (13 sources) Non-smoker; 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: [Other specified health status] Onset: 2 04-14-2023 Episodic Urinary tract infections (5 sources) Urinary tract infection, site not specified; 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: [Acute cystitis] Onset: 3 04-19-2024 Episodic Results Test Name Value Interpretation Reference Range Facility Office Visiton 08-08-2024 Follow-up visit [id number] Toya Hartmann 1940 Date Provider Department Center 08/08/2024 [id number] VIEIRA Family History Problem Relation Age of Onset Hypertension Mother Coronary artery disease Mother Coronary artery disease Father Hypertension Father Hypertension Sister Coronary artery disease Brother Family Status - Relation Status Age at Mother Father Sister Brother Level of Service:85596 MA OFFICE/OUTPATIENT ESTABLISHED MOD MDM 30 MIN Reason for Visit and Comments: Palpitations [418767] - Follow up Holter monitor. Says Benadryl did not help her sleep. She sees PCP in a few days to discuss sleeping aid. Only feels palpitations at night, waking her up. Hypertension [160742] - Only taking clonidine in the evenings, for SPB > 170 Bradycardia [858859] - S/p PPM, which was interrogated 3 weeks ago in the office. [facility] Office [facility] 07-13-2024 Follow-up visit [id number] Toya Hartmann 1940 Date Provider Department Center 07/13/2024 [id number] SÁNCHEZ Family History Problem Relation Age of Onset Hypertension Mother Coronary artery disease Mother Coronary artery disease Father Hypertension Father Hypertension Sister Coronary artery disease Brother Family Status - Relation Status Age at Mother Father Sister Brother Level of Service:54494 MA OFFICE/OUTPATIENT ESTABLISHED MOD MDM 30 MIN [facility] 36on 07-12-2024 36 Patient calling with reports of high blood pressure. She's already taken carvedilol (12.5mg), clonidine (0.1mg), and losartan (50mg) this morning and checked her BP twice after waiting awhile. 170/89 and 177/95 is what she got. Says she feels fuzzy but better than last night. HR is 60. Any suggestions? Please advise. Thanks. [facility] 36on 06-16-2024 36 Patient called with complaints of hypertension. This morning her blood pressure was 200/98 with blurred vision. After taking Clonidine blood pressure went down to 156/78. Her blurry vision has improved. I encouraged patient to go to ED if her blood pressure increases. She agrees. Sandy Morrison MA [facility] Office Visiton 06-15-2024 Follow-up visit [id number] Toya Hartmann 1940 F Date Provider Department Center 06/15/2024 Esther-JOSH SÁNCHEZ Family History Problem Relation Age of Onset Hypertension Mother Coronary artery disease Mother Coronary artery disease Father Hypertension Father Hypertension Sister Coronary artery disease Brother Family Status - Relation Status Age at Mother Father Sister Brother Level of Service:78272 MA OFFICE/OUTPATIENT ESTABLISHED LOW MDM 20 MIN [facility] Office Visiton 06-02-2024 Follow-up visit [id number] Toya Hartmann 1940 F Date Provider Department Center 06/02/2024 ABBIE WEBER Family History Problem Relation Age of Onset Hypertension Mother Coronary artery disease Mother Coronary artery disease Father Hypertension Father Hypertension Sister Coronary artery disease Brother Family Status - Relation Status Age at Mother Father Sister Brother Level of Service:43819 MA OFFICE/OUTPATIENT ESTABLISHED LOW MDM 20 MIN [facility] Laboratory - Hematology and Cell countson 06-01-2024 HbA1c (Bld) [Mass fraction] 6.8 % [facility] No Panel Informationon 06-01 [facility] Urinalysis macro (dipstick) panel (U)on 05-05-2024 Bilirubin, UA Negative Negative - 4(70) +++ mg/dL [facility] Blood, UA Positive Negative - 50 Ky/mcL [facility] Clarity, UA Cloudy [facility] Color, UA Yellow [facility] Glucose, UA Negative Negative - 2000(110) ++++ mg/dL [facility] Ketones, UA Negative Negative - 160(16) ++++ mg/dL [facility] Leukocytes, UA Positive Negative - 500+++ Melinda/mcL [facility] Nitrite, UA Negative Negative - Positive [facility] pH, UA 5.0 5 - 9 [facility] Protein, UA Negative Negative - 1999(20) ++++ mg/dL [facility] Spec Grav, UA 1.000 1 - 1.03 [facility] Urobilinogen, UA 0.2 0.2 - 12 mg/dL [facility] Urinalysis macro (dipstick) panel (U)on 04-19-2024 Bilirubin, UA Negative Negative - 4(70) +++ mg/dL [facility] Blood, UA Positive Negative - 50 Ky/mcL [facility] Comment on above: Trace Non-Hemolyzed Clarity, UA Clear [facility] Color, UA Light Yellow [facility] Glucose, UA 4+ Negative - 1999(110) ++++ mg/dL [facility] Interpretation and review of laboratory results Abnormal [facility] Ketones, UA Negative Negative - 160(16) ++++ mg/dL [facility] Leukocytes, UA Moderate Negative - 500+++ Melinda/mcL [facility] Nitrite, UA Negative Negative - Positive [facility] pH, UA 6.0 5 - 9 [facility] Protein, UA Negative Negative - 1999(20) ++++ mg/dL [facility] Spec Grav, UA 1.005 1 - 1.03 [facility] Urobilinogen, UA 0.2 0.2 - 12 mg/dL [facility] Office Visiton 09-16-2023 Follow-up visit [id number] Toya Hartmann 1940 F Date Provider Department Center 09/16/2023 ABBIE WEBER [place] Family History Problem Relation Age of Onset Hypertension Mother Coronary artery disease Mother Coronary artery disease Father Hypertension Father Hypertension Sister Coronary artery disease Brother Family Status - Relation Status Age at Mother Father Sister Brother Level of Service:03208 MA POSTOP FOLLOW UP VISIT RELATED TO ORIGINAL PX Normal [facility] BASIC METABOLIC PANELon 08-31 Anion gap [Moles/Vol] 15 mmol/L Normal 7-20 [facility] Comment on above: Performed By: #### L [id number] #### [facility] ([facility]) [address] [place] [address] Calcium [Mass/Vol] 10.1 mg/dL Normal 8.6-10.3 [facility] Comment on above: Performed By: #### L [id number] #### [facility] ([facility]AK[facility]) [address] [place] [address] Chloride [Moles/Vol] 103 mmol/L Normal 98-[address] [facility] Comment on above: Performed By: #### L [id number] #### [facility] ([facility]) [address] [place] [address] CO2 [Moles/Vol] 21 mmol/L Normal 21-31 [facility] Comment on above: Performed By: #### L [id number] #### [facility] ([facility]) [address] [place] [address] Creatinine [Mass/Vol] 0.95 mg/dL Normal 0.60-1.20 [facility] Comment on above: Performed By: #### L [id number] #### [facility] ([facility] [address] [place] [address] GLOMERULAR FILTRATION RATE ML/MIN/1.73 SQ M.PREDICTED 59.1 mL/min/1.73m*2 Low >60.0 [facility] Comment on above: Result Comment: [facility]???s estimated glomerular filtration rate (eGFR) [...] individuals. Performed By: #### L [id number] #### [facility] ([facility]) [address] [place] [address] Glucose [Mass/Vol] 149 mg/dL High 70-100 [facility] Comment on above: Performed By: #### L [id number] #### [facility] ([facility]) [address] [place] [address] Potassium [Moles/Vol] 5.0 mmol/L Normal 3.5-5.1 [facility] Comment on above: Performed By: #### L [id number] #### [facility] ([facility]) [address] [place] [address] Sodium [Moles/Vol] 134 mmol/L Low 136-145 [facility] Comment on above: Performed By: #### L [id number] #### [facility] ([facility]) [address] [place] [address] Urea nitrogen [Mass/Vol] 22 mg/dL Normal 7-25 [facility] Comment on above: Performed By: #### L [id number] #### [facility] ([facility]) [address] [place] [address] UREA NITROGEN/CREATININE (MASS RATIO) IN SER/PLAS 23.2 Normal [facility] Comment on above: Performed By: #### L [id number] #### [facility] ([facility]) [address] [place] [address] CBCon 09-09-2023 Erythrocyte distribution width (RBC) [Ratio] 14.4 % Normal 11.5-15.0 [facility] Comment on above: Performed By: #### L [id number] ####[facility] ([facility])[address] [place] [address] ERYTHROCYTE MEAN CORPUSCULAR HEMOGLOBIN CONCENTRATION (G/DL) BY AUTOMATED 31.3 g/dL Low 32.0-35.0 [facility] Comment on above: Performed By: #### L [id number] ####[facility] (BEAKER)[address] [place] [address] Hematocrit (Bld) [Volume fraction] 42.5 % Normal 36.0-48.0 [facility] Comment on above: Performed By: #### L [id number] ####[facility] (BEAKER)[address] [place] [address] Hemoglobin (Bld) [Mass/Vol] 13.3 g/dL Normal 12.0-15.0 [facility] Comment on above: Performed By: #### L [id number] ####[facility] ([facility]AKER)[address] [place] [address] MCH (RBC) [Entitic mass] 26.2 pg Low 27.0-33.0 [facility] Comment on above: Performed By: #### L [id number] ####[facility] (BEAKER)[address] [place] [address] MCV (RBC) [Entitic vol] 83.8 fL Normal 82.0-98.[address] [facility] Comment on above: Performed By: #### L [id number] ####[facility] (BEAKER)[address] [place] [address] PLATELETS (10*3/UL) IN BLOOD AUTOMATED COUNT 220 10*3/uL Normal 150-400 [facility] Comment on above: Performed By: #### L [id number] ####[facility] (BEAKER)[address] [place] [address] RBC (Bld) [#/Vol] 5.07 10*6/uL High 3.80-5.00 [facility] Comment on above: Performed By: #### L [id number] ####[facility] (BEAKER)[address] [place] [address] WBC (Bld) [#/Vol] 9.41 10*3/uL Normal 4.00-10.60 [facility] Comment on above: Performed By: #### L [id number] ####[facility] ([facility])[address] [place] [address] MAGNESIUMon 09-09-2023 Magnesium [Mass/Vol] 1.7 mg/dL Low 1.9-2.[address] [facility] Comment on above: Performed By: #### L [id number] #### [facility] ([facility]) [address] [place] [address] POCT GLUCOSE METER UNSOLICIT ED RESULTSon 09-09-2023 Glucose [Mass/Vol] 138 mg/dL High 70-105 [facility] Comment on above: Order Comment: Waive d Testing in the ED is performed under the ED CLIA certificate #[id number]. Result Comment: [email or web address] mon Performed By: #### L [id number] #### [facility] ([facility]) [address] [place] [address] 30on 09-08-2023 30 The patient is Moderately Stable - Low risk of patient condition declining or worsening The patient's goals for the shift include comfort, rest The clinical goals for the shift include vss Over the shift, the patient did not make progress toward the following goals. Barriers to progression include na. Recommendations to address these barriers include na. Normal [facility] 30 Daily Case Managemen t Update Multidisciplinary rounds have been completed. Barriers to Discharge: S/p PPM placement. 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 Diet: Dietary Orders (From admission, onward) Start Ordered 09/08/23 0838 Diet NPO Diet effective now Comments: Sips with medications Question: Reason for NPO: Answer: Operation/Procedure 09/08/23 0837 09/08/23 0746 Special Kitchen Request Once Comments: Ivorian toast with sugar free syrup, lite strawberry [...] of Consultation Consultation and Management 09/07/231957 Normal [facility] BASIC METABOLIC PANELon Anion gap [Moles/Vol] 10 mmol/L Normal 7-20 [facility] Comment on above: Performed By: #### L [id number] #### [facility] ([facility]) [address] [facility] [place] [address] Calcium [Mass/Vol] 9.3 mg/dL Normal 8.6-10.3 [facility] Comment on above: Performed By: #### L [id number] #### [facility] ([facility]AK[facility]) [address] [place] [address] Chloride [Moles/Vol] 108 mmol/L High 98-[address] [facility] Comment on above: Performed By: #### L [id number] #### [facility] ([facility]) [address] [place] [address] CO2 [Moles/Vol] 20 mmol/L Low 21-31 [facility] Comment on above: Performed By: #### L [id number] #### [facility] (BEAKER) [address] [place] [address] Creatinine [Mass/Vol] 0.97 mg/dL Normal 0.60-1.20 [facility] Comment on above: Performed By: #### L [id number] #### [facility] ([facility]) [address] [place] [address] GLOMERULAR FILTRATION RATE ML/MIN/1.73 SQ M.PREDICTED 57.6 mL/min/1.73m*2 Low >60.0 [facility] Comment on above: Result Comment: [facility]???s estimated glomerular filtration rate (eGFR) [...] group of individuals. Performed By: #### L [id number] #### [facility] ([facility]) [address] [place] [address] Glucose [Mass/Vol] 127 mg/dL High 70-100 [facility] Comment on above: Performed By: #### L [id number] #### [facility] ([facility]) [address] [place] [address] Potassium [Moles/Vol] 4.7 mmol/L Normal 3.5-5.1 [facility] Comment on above: Performed By: #### L [id number] #### [facility] ([facility]) [address] [place] [address] Sodium [Moles/Vol] 133 mmol/L Low 136-145 [facility] Comment on above: Performed By: #### L [id number] #### [facility] ([facility]) [address] [place] [address] Urea nitrogen [Mass/Vol] 22 mg/dL Normal 7-25 [facility] Comment on above: Performed By: #### L [id number] #### [facility] ([facility]) [address] [place] [address] UREA NITROGEN/CREATININE (MASS RATIO) IN SER/PLAS 22.7 Normal [facility] Comment on above: Performed By: #### L [id number] #### [facility] ([facility]) [address] [place] [address] CBCon 09-08-2023 Erythrocyte distribution width (RBC) [Ratio] 14.7 % Normal 11.5-15.0 [facility] Comment on above: Performed By: #### L [id number] #### [facility] ([facility] [address] [place] [address] ERYTHROCYTE MEAN CORPUSCULAR HEMOGLOBIN CONCENTRATION (G/DL) BY AUTOMATED 31.7 g/dL Low 32.0-35.0 [facility] Comment on above: Performed By: #### L [id number] #### [facility] ([facility]) [address] [place] [address] Hematocrit (Bld) [Volume fraction] 42.3 % Normal 36.0-48.0 [facility] Comment on above: Performed By: #### L [id number] #### [facility] ([facility]) [address] [place] [address] Hemoglobin (Bld) [Mass/Vol] 13.4 g/dL Normal 12.0-15.0 [facility] Comment on above: Performed By: #### L [id number] #### [facility] ([facility]) [address] [place] [address] MCH (RBC) [Entitic mass] 26.7 pg Low 27.0-33.0 [facility] Comment on above: Performed By: #### L [id number] #### [facility] ([facility]) [address] [place] [address] MCV (RBC) [Entitic vol] 84.3 fL Normal 82.0-98.[address] [facility] Comment on above: Performed By: #### L [id number] #### [facility] ([facility]) [address] [place] [address] PLATELETS (10*3/UL) IN BLOOD AUTOMATED COUNT 177 10*3/uL Normal 150-400 [facility] Comment on above: Performed By: #### L [id number] #### [facility] ([facility]) [address] [place] [address] RBC (Bld) [#/Vol] 5.02 10*6/uL High 3.80-5.00 [facility] Comment on above: Performed By: #### L [id number] #### [facility] ([facility]) [address] [place] [address] WBC (Bld) [#/Vol] 6.99 10*3/uL Normal 4.00-10.60 [facility] Comment on above: Performed By: #### L [id number] #### [facility] ([facility]) [address] [place] [address] HPon 09-08-2023 HP H&P reviewed. The patient was examined and there are no changes to the H&P.the patient was found to have RV lead migration, she will need lead revision Normal [facility] Orders Onlyon 09-08-2023 Orders Only [id number] Toya Hartmann 1940 F Date Provider Department Center 09/08/2023 RIVERA CAMILO [facility] [place] HeartVAS Family History Problem Relation Age of Onset Hypertension Mother Coronary artery disease Mother Coronary artery disease Father Hypertension Father Hypertension Sister Coronary artery disease Brother Family Status - Relation Status Age at Mother Father Sister Brother Normal [facility] POCT GLUCOSE METER UNSOLICIT ED RESULTSon 09-08-2023 Glucose [Mass/Vol] 228 mg/dL High 70-105 [facility] Comment on above: Order Comment: Waive d Testing in the ED is performed under the ED CLIA certificate #[id number]. Result Comment: [email or web address] Performed By: #### L [id number] ####[facility] ([facility])[address] [place] [address] Glucose [Mass/Vol] 128 mg/dL High 70-105 [facility] Comment on above: Order Comment: Waive d Testing in the ED is performed under the ED CLIA certificate #[id number]. Result Comment: [email or web address] mon Performed By: #### L [id number] ####[facility] ([facility])[address] [place] [address] Glucose [Mass/Vol] 143 mg/dL High 70-105 [facility] Comment on above: Order Comment: Waive d Testing in the ED is performed under the ED CLIA certificate #[id number]. Result Comment: vcar mon Performed By: #### L [id number] #### [facility] (BEAKER) [address] [place] [address] Glucose [Mass/Vol] 136 mg/dL High 70-105 [facility] Comment on above: Order Comment: Waive d Testing in the ED is performed under the ED CLIA certificate #[id number]. Result Comment: [email or web address] mon Performed By: #### L [id number] #### [facility] ([facility]AKER) [address] [place] [address] 30on 09-07-2023 30 The patient is Moderately Stable - Low risk of patient condition declining or worsening The patient's goals for the shift include comfort The clinical goals for the shift include vss Normal [facility] ANESon 09-07-2023 ANES - Attestation signed by Cody Patrick MD at 09/09/2023 6:13 PM By using [...] attending and fellow. Additional Equipment Requests Normal [facility] HPon 09-07-2023 Cardiology History & Physical Chief Complaint: Dizziness HPI: Tere Hartmann is a 83 y.o. female with history of coronary artery disease, heart failure with reduced ejection fraction was transferred from [facility], the patient presented on 09/04 due [...] coronary artery disease s/p PCI in [employer]. History of PCI in ramus and RCA, [...] Plan for PPM placement Vinny Bueno MD Apprentice Cosmetologist - PGY4 [facility] NURSNOTEon 09-07-2023 NURSNOTE CHG wipes and betadine nasal swabs completed. [facility] Orders Onlyon 09-07-2023 Orders Only [id number] Toya Hartmann 1940 F Date Provider Department Center 09/07/2023 VINNY SULLIVAN [facility] Family History Problem Relation Age of Onset Hypertension Mother Coronary artery disease Mother Coronary artery disease Father Hypertension Father Hypertension Sister Coronary artery disease Brother Family Status - Relation Status Age at Mother Father Sister Brother [facility] POCT GLUCOSE METER UNSOLICIT ED RESULTSon 09-07-2023 Glucose [Mass/Vol] 169 mg/dL High 70-105 [facility] Comment on above: Order Comment: Waive d Testing in the ED is performed under the ED CLIA certificate #[id number]. Result Comment: [email or web address] Performed By: #### L [id number] #### [facility] ([facility]) [address] [place] [address] Glucose [Mass/Vol] 70 mg/dL Normal 70-105 [facility] Comment on above: Order Comment: Waive d Testing in the ED is performed under the ED CLIA certificate #[id number]. Result Comment: [email or web address] Performed By: #### L [id number] #### [facility] ([facility]ER) [address] [place] [address] Outside Recordson 09-13-2023 Outside Records [id number]# 1.00CD:127 Normal [facility] Physician Orderon 05-13-2023 Physician Order [id number]# 1.00CD:127 Normal [facility] BNPon 11-24-2022 Natriuretic peptide B (Bld) [Mass/Vol] 703.0 pg/mL Normal <=1,800.0 [facility] Comment on above: Performed By: #### C [id number] #### [facility] [address] [place] [address] Dr. Kesha Aguero CBC AUTO DIFFon 11-24-2022 BASO # 0.0 103/ul Normal 0.0-0.1 [facility] Comment on above: Performed By: #### D DIM #### [facility] [address] [place] [address] Dr. Kesha Aguero Basophils/100 WBC (Bld) 0.5 % Normal 0.2-2.0 [facility] Comment on above: Performed By: #### D DIM #### [facility] [address] [place] [address] Dr. Kesha Aguero EO # 0.1 103/ul Normal 0.0-0.7 [facility] Comment on above: Performed By: #### D DIM #### [facility] [address] [place] [address] Dr. Kesha Aguero Eosinophils/100 WBC (Bld) 1.4 % Normal 0.9-7.0 [facility] Comment on above: Performed By: #### D DIM #### [facility] [address] [place] [address] Dr. Kesha Aguero Erythrocyte distribution width (RBC) [Ratio] 14.9 % Normal 11.0-15.0 [facility] Comment on above: Performed By: #### D DIM #### [facility] [address] [place] [address] Dr. Kesha Aguero Hematocrit (Bld) [Volume fraction] 45.3 % Normal 36.0-48.0 [facility] Comment on above: Performed By: #### D DIM #### [facility] [address] [place] [address] Dr. Kesha Aguero Hemoglobin (Bld) [Mass/Vol] 13.9 g/dL Normal 12.0-16.0 [facility] Comment on above: Performed By: #### D DIM #### [facility] [address] [place] [address] Dr. Kesha Aguero IG # 0.02 10e3/ul Normal 0.00-0.03 [facility] Comment on above: Performed By: #### D DIM #### [facility] [address] [place] [address] Dr. Kesha Aguero IG % 0.2 % Normal 0.0-0.5 [facility] Comment on above: Performed By: #### D DIM #### [facility] [address] [place] [address] Dr. Kesha Aguero LYMPH # 2.6 103/ul Normal 1.2-3.8 [facility] Comment on above: Performed By: #### D DIM #### [facility] [address] [place] [address] Dr. Kesha Aguero Lymphocytes/100 WBC (Bld) 30.3 % Normal 20.5-60.0 [facility] Comment on above: Performed By: #### D DIM #### [facility] [address] [place] [address] Dr. Kesha Aguero MANUAL DIFF REQ NO Normal [facility] Comment on above: Performed By: #### D DIM #### [facility] [address] [place] [address] Dr. Kesha Aguero MCH (RBC) [Entitic mass] 25.6 pg Critically low 26.7-34.0 [facility] Comment on above: Performed By: #### D DIM #### [facility] [address] [place] [address] Dr. Kesha Aguero MCHC (RBC) [Mass/Vol] 30.7 g/dL Normal 29.9-35.2 [facility] Comment on above: Performed By: #### D DIM #### [facility] [address] [address] [address] Kesha Augero MCV (RBC) [Entitic vol] 83.3 fL Normal 81.0-99.0 [facility] Comment on above: Performed By: #### D DIM #### [facility] [address] [address] [address] Kesha Aguero MONO # 0.6 103/ul Normal 0.3-0.8 [facility] Comment on above: Performed By: #### D DIM #### [facility] [address] [address] [address] Kesha Aguero Monocytes/100 WBC (Bld) 6.5 % Normal 1.7-12.0 [facility] Comment on above: Performed By: #### D DIM #### [facility] [address] [place] [address] Dr. Kesha Aguero NEUT # 5.1 103/ul Normal 1.4-6.5 [facility] Comment on above: Performed By: #### D DIM #### [facility] [address] [place] [address] Dr. Kesha Aguero Neutrophils/100 WBC (Bld) 61.1 % Normal 43.0-75.0 [facility] Comment on above: Performed By: #### D DIM #### [facility] [address] [place] [address] Dr. Kesha Aguero Platelet mean volume (Bld) [Entitic vol] 9.6 fL Normal 9.5-13.5 [facility] Comment on above: Performed By: #### D DIM #### [facility] [address] [place] [address] Dr. Kesha Aguero PLT 208 103/ul Normal 150-450 [facility] Comment on above: Performed By: #### D DIM #### [facility] [address] [place] [address] Dr. Kesha Aguero RBC 5.44 106/ul Critically high 4.20-5.40 [facility] Comment on above: Performed By: #### D DIM #### [facility] [address] [place] [address] Dr. Kesha Aguero WBC 8.4 103/ul Normal 4.0-11.0 [facility] Comment on above: Performed By: #### D DIM #### [facility] [address] [place] [address] Dr. Kesha Aguero CULTURE BLOODon 11-24-2022 Microscopic examination of blood, culture Culture Observations: NO GROWTH AT 5 DAYS. Isolate 1 BC_BA_NA Normal [facility] Comment on above: Performed By: #### B [id number] #### [facility] [address] [place] [address] Dr. Kesha Aguero Microscopic examination of blood, culture Culture Observations: NO GROWTH AT 5 DAYS. Isolate 1 BC_BA_NA Normal [facility] Comment on above: Performed By: #### C VDTBH #### [facility] [address] [place] [address] Dr. Kesha Aguero CULTURE URINEon 11-24-2022 CULTURE URINE Culture Observations : LIGHT GROWTH OF MIXED GENITAL SANTY. NO POTENTIAL PATHOGENS SEEN. Normal [facility] Comment on above: Performed By: #### C VDTBH #### [facility] [address] [place] [address] Dr. Kesha Aguero ER URINE PROFILEon 3 Bilirubin Ql (U) Negative Normal NEGATIVE [facility] Comment on above: Performed By: #### D DIM #### [facility] [address] [place] [address] Dr. Kesha Aguero Clarity (U) CLEAR Normal CLEAR [facility] Comment on above: Performed By: #### D DIM #### [facility] [address] [place] [address] Dr. Kesha Aguero Color (U) DK. YELLOW Normal YELLOW [facility] Comment on above: Performed By: #### D DIM #### [facility] [address] [place] [address] Dr. Kesha Aguero ERUAHD A micrscopic examination will be performed if indicated. Normal [facility] Comment on above: Performed By: #### D DIM #### [facility] [address] [place] [address] Dr. Kesha Aguero Glucose Ql (U) >1000 Abnormal NEGATIVE [facility] Comment on above: Performed By: #### D DIM #### [facility] [address] [place] [address] Dr. Kesha Aguero Hemoglobin Ql (U) Negative Normal NEGATIVE [facility] Comment on above: Performed By: #### D DIM #### [facility] [address] [place] [address] Dr. Kesha Aguero Ketones Ql (U) Negative Normal NEGATIVE [facility] Comment on above: Performed By: #### D DIM #### [facility] [address] [place] [address] Dr. Kesha Aguero LEUKOCYTES Negative Normal NEGATIVE [facility] Comment on above: Performed By: #### D DIM #### [facility] [address] [place] [address] Dr. Kesha Aguero Nitrite Ql (U) Positive Abnormal NEGATIVE [facility] Comment on above: Performed By: #### D DIM #### [facility] [address] [place] [address] Dr. Kesha Aguero pH (U) 6.0 [pH] Normal 5-9 [facility] Comment on above: Performed By: #### D DIM #### [facility] [address] [place] [address] Dr. Kesha Aguero SPEC GRAVITY <=1.005 Abnormal 1.005-<=1.02 5 [facility] Comment on above: Performed By: #### D DIM #### [facility] [address] [place] [address] Dr. Kesha Aguero UA PROTEIN Negative Normal NEGATIVE/ TRACE [facility] Comment on above: Performed By: #### D DIM #### [facility] [address] [place] [address] Dr. Kesha Aguero UR MICRO IND INDICATED Normal [facility] Comment on above: Performed By: #### D DIM #### [facility] [address] [place] [address] Dr. Kesha Aguero Urobilinogen Qn (U) 0.2 {Allison'U}/dL Normal 0.2 - 1. 0 [facility] Comment on above: Performed By: #### D DIM #### [facility] [address] [place] [address] Dr. Kesha Aguero LACTATE/LACTIC ACIDon 2022 Lactate [Moles/Vol] 1.0 mmol/L Normal 0.4-2.0 [facility] Comment on above: Performed By: #### C VDTBH #### [facility] [address] [place] [address] Dr. Kesha Aguero PROF 14(COMP METB)on 023 Albumin [Mass/Vol] 3.8 g/dL Normal 3.4-5.0 [facility] Comment on above: Performed By: #### C VDTBH #### [facility] [address] [place] [address] Dr. Kesha Aguero Albumin/Globulin [Mass ratio] 1.1 {ratio} Normal [facility] Comment on above: Performed By: #### C VDTBH #### [facility] [address] [place] [address] Dr. Kesha Aguero ALP [Catalytic activity/Vol] 118 U/L Critically high 46-116 [facility] Comment on above: Performed By: #### C VDTBH #### [facility] [address] [place] [address] Dr. Kesha Aguero ALT [Catalytic activity/Vol] 41 U/L Normal 14-59 [facility] Comment on above: Performed By: #### C VDTBH #### [facility] [address] [place] [address] Dr. Kesha Aguero Anion gap [Moles/Vol] 14.3 mmol/L Normal [facility] Comment on above: Performed By: #### C VDTBH #### [facility] [address] [place] [address] Dr. Kesha Aguero AST [Catalytic activity/Vol] 23 U/L Normal 15-37 [facility] Comment on above: Performed By: #### C VDTBH #### [facility] [address] [place], [place] [id number] Dr. Kesha Aguero Bilirubin [Mass/Vol] 0.5 mg/dL Normal 0.2-1.0 [facility] Comment on above: Performed By: #### C VDTBH #### [facility] [address] [place] [address] Dr. Kesha Aguero Calcium [Mass/Vol] 9.3 mg/dL Normal 8.5-10.1 [facility] Comment on above: Performed By: #### C VDTBH #### [facility] [address] [place] [address] Dr. Kesha Aguero Chloride [Moles/Vol] 106 mmol/L Normal 98-107 [facility] Comment on above: Performed By: #### C VDTBH #### [facility] [address] [place] [address] Dr. Kesha Aguero CO2 [Moles/Vol] 26.4 mmol/L Normal 21.0-32.0 [facility] Comment on above: Performed By: #### C VDTBH #### [facility] [address] [place] [address] Dr. Kesha Aguero Creatinine [Mass/Vol] 0.92 mg/dL Normal 0.55-1.02 [facility] Comment on above: Performed By: #### C VDTBH #### [facility] [address] [place] [address] Dr. Kesha Aguero EGFR-AF IRISH >60 Normal >=60 [facility] Comment on above: Performed By: #### C VDTBH #### [facility] [address] [place] [address] Dr. Kesha Aguero EGFR-NON AF IRISH 58 mL/min/1.73m2 Critically low >=60 [facility] Comment on above: Performed By: #### C VDTBH #### [facility] [address] [place] [address] Dr. Kesha Aguero Globulin (S) [Mass/Vol] 3.5 g/dL Normal [facility] Comment on above: Performed By: #### C VDTBH #### [facility] [address] [address] [address] Kesha Aguero Glucose [Mass/Vol] 184 mg/dL Critically high 74-106 [facility] Comment on above: Performed By: #### C VDTBH #### [facility] [address] [place] [address] Dr. Kesha Aguero Potassium [Moles/Vol] 4.7 mmol/L Normal 3.5-5.1 [facility] Comment on above: Performed By: #### C VDTBH #### [facility] [address] [place] [address] Dr. Kesha Aguero Protein [Mass/Vol] 7.3 g/dL Normal 6.4-8.2 [facility] Comment on above: Performed By: #### C VDTBH #### [facility] [address] [place] [address] Dr. Kesha Aguero Sodium [Moles/Vol] 142 mmol/L Normal 136-145 [facility] Comment on above: Performed By: #### C VDTBH #### [facility] [address] [place] [address] Dr. Kesha Aguero Urea nitrogen [Mass/Vol] 18.0 mg/dL Normal 7.0-18.0 [facility] Comment on above: Performed By: #### C VDTBH #### [facility] [address] [place] [address] Dr. Kesha Aguero Urea nitrogen/Creatinine [Mass ratio] 19.6 mg/mg Normal [facility] Comment on above: Performed By: #### C VDTBH #### [facility] [address] [place] [address] Dr. Kesha Agueor TROPONIN, HIGH SENSITIVITYon 11-24-2022 HSTROP 9.2 pg/mL Normal 4.0-51.3 [facility] Comment on above: Result Comment: CUT- OFF POINTS HAVE BEEN ESTABLISHED BASED ON THE FOURTH UNIVERSAL DEFINITIONS OF MYOCARDIAL INFARCTION. THE UPPER REFERENCE LIMIT (URL) OF TROPONIN, DEFINED THE 99TH PERCENTILE OF cTnI DISTRIBUTION IN A REFERENCE POPULATION, HAS BEEN CONFIRMED THE DECISION THRESHOLD FOR [place] DIAGNOSIS. Performed By: #### A CETON #### [facility] [address] [place] [address] Dr. Kesha Aguero HSTROP 9.5 pg/mL Normal 4.0-51.3 [facility] Comment on above: Result Comment: CUT- OFF POINTS HAVE BEEN ESTABLISHED BASED ON THE FOURTH UNIVERSAL DEFINITIONS OF MYOCARDIAL INFARCTION. THE UPPER REFERENCE LIMIT (URL) OF TROPONIN, DEFINED THE 99TH PERCENTILE OF cTnI DISTRIBUTION IN A REFERENCE POPULATION, HAS BEEN CONFIRMED THE DECISION THRESHOLD FOR [place] DIAGNOSIS. Performed By: #### C VDTBH #### [facility] [address] [place] [address] Dr. Kesha Aguero URINE MICROSCOPIC ONLYon BACTERIA TRACE Abnormal NONE SEEN [facility] Comment on above: Performed By: #### C VDTBH #### [facility] [address] [place] [address] Dr. Kesha Aguero Bacteria identified Cx Nom (U) INDICATED Normal [facility] Comment on above: Performed By: #### C VDTBH #### [facility] [address] [place] [address] Dr. Kesha Aguero CAST NONE SEEN Normal NONE SEEN [facility] Comment on above: Performed By: #### C VDTBH #### [facility] [address] [place] [address] Dr. Kesha Aguero Crystals LM Nom (Urine sed) NONE SEEN Normal NONE SEEN [facility] Comment on above: Performed By: #### C VDTBH #### [facility] [address] [place] [address] Dr. Kesha Aguero Epithelial cells LM Ql (Urine sed) FEW Abnormal NONE SEEN /RARE [facility] Comment on above: Performed By: #### C VDTBH #### [facility] [address] [place] [address] Dr. Kesha Aguero MUCOUS NONE SEEN Normal NONE SEEN [facility] Comment on above: Performed By: #### C VDTBH #### [facility] [address] [place] [address] Dr. Kesha Aguero RBC 0-2 Normal 0-2 [facility] Comment on above: Performed By: #### C VDTBH #### [facility] [address] [place], [place] [address] Dr. Kesha Aguero WBC 2-5 Abnormal NONE SEEN [facility] Comment on above: Performed By: #### C VDTBH #### [facility] [address] [place], [place] [address] Dr. Kesha Aguero XR DEXA BONE DENSITYon [...] by: LOUIS [place]IEGO Date: 2022-09-29 12:45 Normal [facility] CT HEAD WO CONon 08-29-2022 CT [...] by: EDWIGE ZAVALETA Date: 2022-08-29 14:04 Normal [facility] POINT OF CARE GLUCOSEon 08-02 Glucose [Mass/Vol] 279 mg/dL Critically high 74-106 [facility] Comment on above: Performed By: #### C VDTBH #### [facility] [address] [address] [address] Kesha Aguero Glucose [Mass/Vol] 65 mg/dL Critically low 74-106 [facility] Comment on above: Performed By: #### C VDTBH #### [facility] [address] [place] [address] Dr. Kesha Aguero BNPon 08-28-2022 Natriuretic peptide B (Bld) [Mass/Vol] 673.0 pg/mL Normal <=1,800.0 [facility] Comment on above: Performed By: #### C VDTBH #### [facility] [address] [place] [address] Dr. Kesha Aguero CARDIAC KARLIE ADMITon 022 CK [Catalytic activity/Vol] 33 U/L Normal 26-192 [facility] Comment on above: Performed By: #### C VDTBH #### [facility] [address] [place] [address] Dr. Kesha Aguero CK.MB [Mass/Vol] 0.58 ng/mL Normal <=3.60 [facility] Comment on above: Performed By: #### C VDTBH #### [facility] [address] [place] [address] Dr. Kesha Aguero HSTROP 11.2 pg/mL Normal 4.0-51.3 [facility] Comment on above: Result Comment: CUT- OFF POINTS HAVE BEEN ESTABLISHED BASED ON THE FOURTH UNIVERSAL DEFINITIONS OF MYOCARDIAL INFARCTION. THE UPPER REFERENCE LIMIT (URL) OF TROPONIN, DEFINED THE 99TH PERCENTILE OF cTnI DISTRIBUTION IN A REFERENCE POPULATION, HAS BEEN CONFIRMED THE DECISION THRESHOLD FOR [place] DIAGNOSIS. Performed By: #### C VDTBH #### [facility] [address] [place] [address] Dr. Kesha Aguero ELIAS 48 ng/mL Normal 9-82 [facility] Comment on above: Performed By: #### C VDTBH #### [facility] [address] [place] [address] Dr. Kesha Aguero CBC AUTO DIFFon 08-28-2022 BASO # 0.1 103/ul Normal 0.0-0.1 [facility] Comment on above: Performed By: #### C VDTBH #### [facility] [address] [place] [address] Dr. Kesha Aguero Basophils/100 WBC (Bld) 0.6 % Normal 0.2-2.0 [facility] Comment on above: Performed By: #### C VDTBH #### [facility] [address] [place] [address] Dr. Kesha Aguero EO # 0.2 103/ul Normal 0.0-0.7 [facility] Comment on above: Performed By: #### C VDTBH #### [facility] [address] [place] [address] Dr. Kesha Aguero Eosinophils/100 WBC (Bld) 2.3 % Normal 0.9-7.0 [facility] Comment on above: Performed By: #### C VDTBH #### [facility] [address] [place] [address] Dr. Kesha Aguero Erythrocyte distribution width (RBC) [Ratio] 15.7 % Critically high 11.0-15.0 [facility] Comment on above: Performed By: #### C VDTBH #### [facility] [address] [place] [address] Dr. Kesha Aguero Hematocrit (Bld) [Volume fraction] 44.6 % Normal 36.0-48.0 [facility] Comment on above: Performed By: #### C VDTBH #### [facility] [address] [place] [address] Dr. Kesha Aguero Hemoglobin (Bld) [Mass/Vol] 14.4 g/dL Normal 12.0-16.0 [facility] Comment on above: Performed By: #### C VDTBH #### [facility] [address] [place] [address] Dr. Kesha Aguero IG # 0.02 10e3/ul Normal 0.00-0.03 [facility] Comment on above: Performed By: #### C VDTBH #### [facility] [address] [place] [address] Dr. Kesha Aguero IG % 0.3 % Normal 0.0-0.5 [facility] Comment on above: Performed By: #### C VDTBH #### [facility] [address] [place] [address] Dr. Kesha Aguero LYMPH # 3.5 103/ul Normal 1.2-3.8 [facility] Comment on above: Performed By: #### C VDTBH #### [facility] [address] [place] [address] Dr. Kesha Aguero Lymphocytes/100 WBC (Bld) 43.6 % Normal 20.5-60.0 [facility] Comment on above: Performed By: #### C VDTBH #### [facility] [address] [place] [address] Dr. Kesha Aguero MANUAL DIFF REQ NO Normal [facility] Comment on above: Performed By: #### C VDTBH #### [facility] [address] [place] [address] Dr. Kesha Aguero MCH (RBC) [Entitic mass] 25.9 pg Critically low 26.7-34.0 [facility] Comment on above: Performed By: #### C VDTBH #### [facility] [address] [place] [address] Dr. Kesha Aguero MCHC (RBC) [Mass/Vol] 32.3 g/dL Normal 29.9-35.2 [facility] Comment on above: Performed By: #### C VDTBH #### [facility] [address] [place] [address] Dr. Kesha Aguero MCV (RBC) [Entitic vol] 80.4 fL Critically low 81.0-99. 0 [facility] Comment on above: Performed By: #### C VDTBH #### [facility] [address] [place] [address] Dr. Kesha Aguero MONO # 0.5 103/ul Normal 0.3-0.8 [facility] Comment on above: Performed By: #### C VDTBH #### [facility] [address] [place] [address] Dr. Kesha Aguero Monocytes/100 WBC (Bld) 6.0 % Normal 1.7-12.0 [facility] Comment on above: Performed By: #### C VDTBH #### [facility] [address] [place] [address] Dr. Kesha Aguero NEUT # 3.8 103/ul Normal 1.4-6.5 [facility] Comment on above: Performed By: #### C VDTBH #### [facility] [address] [place] [address] Dr. Kesha Aguero Neutrophils/100 WBC (Bld) 47.2 % Normal 43.0-75.0 [facility] Comment on above: Performed By: #### C VDTBH #### [facility] [address] [place] [address] Dr. Kesha Aguero Platelet mean volume (Bld) [Entitic vol] 9.7 fL Normal 9.5-13.5 [facility] Comment on above: Performed By: #### C VDTBH #### [facility] [address] [place] [address] Dr. Kesha Aguero PLT 269 103/ul Normal 150-450 [facility] Comment on above: Performed By: #### C VDTBH #### [facility] [address] [place] [address] Dr. Kesha Aguero RBC 5.55 106/ul Critically high 4.20-5.40 [facility] Comment on above: Performed By: #### C VDTBH #### [facility] [address] [place] [address] Dr. Kesha Aguero WBC 8.0 103/ul Normal 4.0-11.0 [facility] Comment on above: Performed By: #### C VDTBH #### [facility] [address] [place] [address] Dr. Kesha Aguero Covid-19 PCR ([facility])on 08-01 SARS-CoV-2 (COVID-19) RNA YARA+probe Ql (Unsp spec) Not detected Normal NOT DETECTED [facility] Comment on above: Result Comment: When [...] for this test is supported by the [place] of Health and Human Service's declaration that [...] used). Performed By: #### C VDTBH #### [facility] [address] [place] [address] Dr. Kesha Aguero POINT OF CARE GLUCOSEon 08-01 Glucose [Mass/Vol] 157 mg/dL Critically high 74-106 [facility] Comment on above: Performed By: #### D DIM #### [facility] [address] [address] [address] Kesha Aguero Glucose [Mass/Vol] 170 mg/dL Critically high 74-106 [facility] Comment on above: Performed By: #### C VDTBH #### [facility] [address] [address] [address] Kesha Aguero PROF CHEM 8 (BAS METB)on Anion gap [Moles/Vol] 14.2 mmol/L Normal [facility] Comment on above: Performed By: #### C VDTBH #### [facility] [address] [address] [address] Kesha Aguero Calcium [Mass/Vol] 9.8 mg/dL Normal 8.5-10.1 [facility] Comment on above: Performed By: #### C VDTBH #### [facility] [address] [place] [address] Dr. Kesha Aguero Chloride [Moles/Vol] 104 mmol/L Normal 98-107 [facility] Comment on above: Performed By: #### C VDTBH #### [facility] [address] [address] [address] Kesha Aguero CO2 [Moles/Vol] 25.6 mmol/L Normal 21.0-32.0 [facility] Comment on above: Performed By: #### C VDTBH #### [facility] [address] [place] [address] Dr. Kesha Aguero Creatinine [Mass/Vol] 1.00 mg/dL Normal 0.55-1.02 [facility] Comment on above: Performed By: #### C VDTBH #### [facility] [address] [address] [address] Kesha Aguero EGFR-AF IRISH >60 Normal >=60 [facility] Comment on above: Performed By: #### C VDTBH #### [facility] [address] [place] [address] Dr. Kesha Aguero EGFR-NON AF IRISH 53 mL/min/1.73m2 Critically low >=60 [facility] Comment on above: Performed By: #### C VDTBH #### [facility] [address] [address] [address] Kesha Aguero Glucose [Mass/Vol] 151 mg/dL Critically high 74-106 [facility] Comment on above: Performed By: #### C VDTBH #### [facility] [address] [address] [address] Kesha Aguero Potassium [Moles/Vol] 3.8 mmol/L Normal 3.5-5.1 [facility] Comment on above: Performed By: #### C VDTBH #### [facility] [address] [address] [address] Kesha Aguero Sodium [Moles/Vol] 140 mmol/L Normal 136-145 [facility] Comment on above: Performed By: #### C VDTBH #### [facility] [address] [place] [address] Dr. Kesha Aguero Urea nitrogen [Mass/Vol] 19.0 mg/dL Critically high 7.0-18.0 [facility] Comment on above: Performed By: #### C VDTBH #### [facility] [address] [address] [address] Kesha Aguero Urea nitrogen/Creatinine [Mass ratio] 19.0 mg/mg Normal [facility] Comment on above: Performed By: #### C VDTBH #### [facility] [address] [place] [address] Dr. Kesha Aguero PROTIMEon 08-28-2022 INR Coag (PPP) [Relative time] 0.97 {INR} Normal [facility] Comment on above: Performed By: #### C VDTBH #### [facility] [address] [address] [address] Kesha Aguero INR GUIDELINES SEE BELOW Normal [facility] Comment on above: Result Comment: GUY RED INR: 2.0 - 3.0 CONDITIONS NOT LISTED BELOW 2.5 - 3.5 FOR PROSTHETIC HEART VALVE REPLACEMENT 2.5 - 3.5 RECURRENT THROMBOSIS Performed By: #### C VDTBH #### [facility] [address] [place] [address] Dr. Kesha Aguero PT Coag (PPP) [Time] 10.5 s Normal 9.0-11.6 [facility] Comment on above: Performed By: #### C VDTBH #### [facility] [address] [place] [address] Dr. Kesha Agureo PTTon 08-28-2022 aPTT Coag (Bld) [Time] 27.1 s Normal 22.3-36.2 [facility] Comment on above: Performed By: #### C VDTBH #### [facility] [address] [place] [address] Dr. Kesha Aguero TROPONIN, HIGH SENSITIVITYon 08-28-2022 HSTROP 14.8 pg/mL Normal 4.0-51.3 [facility] Comment on above: Result Comment: CUT- OFF POINTS HAVE BEEN ESTABLISHED BASED ON THE FOURTH UNIVERSAL DEFINITIONS OF MYOCARDIAL INFARCTION. THE UPPER REFERENCE LIMIT (URL) OF TROPONIN, DEFINED THE 99TH PERCENTILE OF cTnI DISTRIBUTION IN A REFERENCE POPULATION, HAS BEEN CONFIRMED THE DECISION THRESHOLD FOR [place] DIAGNOSIS. Performed By: #### C VDTBH #### [facility] [address] [place] [address] Dr. Kesha Aguero HSTROP 13.5 pg/mL Normal 4.0-51.3 [facility] Comment on above: Result Comment: CUT- OFF POINTS HAVE BEEN ESTABLISHED BASED ON THE FOURTH UNIVERSAL DEFINITIONS OF MYOCARDIAL INFARCTION. THE UPPER REFERENCE LIMIT (URL) OF TROPONIN, DEFINED THE 99TH PERCENTILE OF cTnI DISTRIBUTION IN A REFERENCE POPULATION, HAS BEEN CONFIRMED THE DECISION THRESHOLD FOR MN DIAGNOSIS. Performed By: #### D DIM #### [facility] [address] [place] [address] Dr. Kesha Aguero US JCARLOS DOP LEG [...] November 24, 2009. Electronically authenticated by: CARMEN Scott: 2022-08-28 13:22 Normal [facility] XR CHEST 1 Von 08-28-2022 XR CHEST 1 V EXAM: CHEST 1 VIEW HISTORY: CHEST PAIN, UNSPECIFIED TECHNIQUE: Chest, one view. COMPARISON: 06/06/2022. FINDINGS: Lungs are clear. No focal consolidation, pleural effusion, or pneumothorax. Pulmonary vasculature is within normal limits. Cardiomediastinal silhouette is normal. IMPRESSION: 1. No acute cardiopulmonary disease. Electronically authenticated by: JEAN-CLAUDE OLEARY Date: 2022-08-28 08:34 Normal [facility] CT ABDOMEN WO/W CONon 2021 CT [...] by: LOUIS DIEGO Date: 2022-08-18 22:44 Normal [facility] CREATININEon 08-18-2022 Creatinine [Mass/Vol] 1.04 mg/dL Critically high 0.55-1.02 [facility] Comment on above: Performed By: #### C VDTBH #### [facility] [address] [place], [place] [address] Dr. Kesha Aguero EGFR-AF IRISH >60 Normal >=60 [facility] Comment on above: Performed By: #### C VDTBH #### [facility] [address] [place], [place] [address] Dr. Kesha Aguero EGFR-NON AF IRISH 51 mL/min/1.73m2 Critically low >=60 [facility] Comment on above: Performed By: #### C VDTBH #### [facility] [address] [place], [place] [address] Dr. Kesha Aguero ECHOCARDIO M/2D COMPLETEon 1 10-19-2021 ECHOCARDIO M/2D COMPLETE Patient: TERE HARTMANN Exam Date: 08/18/2022 : 1940 Gender:F Ordering : ABBIE CRISOSTOMO Admission #: [id number] Family : DR RODRICK BUTLER M.D. Order #: [id number] CLICK HERE TO VIEW EXAM ECHOCARDIOGRAM REPORT [...] Jackson M.D. on 08/21/2022 at 15:17 Normal [facility] ALDOSTERONE: RENIN RATIOon 1 Aldos/Renin Ratio 2.5 Normal 0.0-30.0 [facility] Comment on above: Result Comment: Unit s: ng/dL per ng/mL/hr Performed By: #### A LDOREN #### [facility] [address] [place] [address] Dr. Kesha Aguero Aldosterone 7.4 ng/dL Normal 0.0-30.0 [facility] Comment on above: Performed By: #### A LDOREN #### [facility] [address] [place] [address] Dr. Kesha Aguero Renin Activity, Plasma 3.015 ng/mL/hr Normal 0.167-5.3 80 [facility] Comment on above: Performed By: #### A LDOREN #### [facility] [address] [place] [address] Dr. Kesha Aguero METANEPHRINES PLASMA FREEon 06-18-2022 Metanephrine, Pl 11.8 pg/mL Normal 0.0-88.0 [facility] Comment on above: Performed By: #### A CETON #### [facility] [address] [place] [address] Dr. Kesha Aguero Normetanephrine, Pl 103.3 pg/mL Normal 0.0-297.2 [facility] Comment on above: Performed By: #### A CETON #### [facility] [address] [place] [address] Dr. Kesha Aguero CORTISOLon 06-12-2022 Cortisol 5.5 ug/dL Normal [facility] Comment on above: Result Comment: Clement isol AM 6.2 - 19.4 Cortisol PM 2.3 - 11.9 Performed By: #### C VDTBH #### [facility] [address] [address] [address] Kesha Aguero PROF CHEM 8 (BAS METB)on Anion gap [Moles/Vol] 14.4 mmol/L Normal [facility] Comment on above: Performed By: #### A LDOREN #### [facility] [address] [place] [address] [address] Kesha Aguero Calcium [Mass/Vol] 9.6 mg/dL Normal 8.5-10.1 [facility] Comment on above: Performed By: #### A LDOREN #### [facility] [address] [place] [address] [address] Kesha Aguero Chloride [Moles/Vol] 103 mmol/L Normal 98-107 [facility] Comment on above: Performed By: #### A LDOREN #### [facility] [address] [place] [address] Dr. Kesha Aguero CO2 [Moles/Vol] 24.3 mmol/L Normal 21.0-32.0 [facility] Comment on above: Performed By: #### A LDOREN #### [facility] [address] [place] [address] Dr. Kesha Aguero Creatinine [Mass/Vol] 1.24 mg/dL Critically high 0.55-1.02 [facility] Comment on above: Performed By: #### A LDOREN #### [facility] [address] [place] [address] Dr. Kesha Aguero EGFR-AF IRISH 50 mL/min/1.73m2 Critically low >=60 [facility] Comment on above: Performed By: #### A LDOREN #### [facility] [address] [place] [address] Dr. Kesha Aguero EGFR-NON AF IRISH 41 mL/min/1.73m2 Critically low >=60 [facility] Comment on above: Performed By: #### A LDOREN #### [facility] [address] [place] [address] Dr. Kesha Aguero Glucose [Mass/Vol] 215 mg/dL Critically high 74-106 [facility] Comment on above: Performed By: #### A LDOREN #### [facility] [address] [place] [address] [address] Kesha Aguero Potassium [Moles/Vol] 4.7 mmol/L Normal 3.5-5.1 [facility] Comment on above: Performed By: #### A LDOREN #### [facility] [address] [place] [address] [address] Kesha Aguero Sodium [Moles/Vol] 137 mmol/L Normal 136-145 [facility] Comment on above: Performed By: #### A LDOREN #### [facility] [address] [place] [address] [address] Kesha Aguero Urea nitrogen [Mass/Vol] 21.0 mg/dL Critically high 7.0-18.0 [facility] Comment on above: Performed By: #### A LDOREN #### [facility] [address] [place] [address] [address] Kesha Aguero Urea nitrogen/Creatinine [Mass ratio] 16.9 mg/mg Normal [facility] Comment on above: Performed By: #### A LDOREN #### [facility] [address] [place] [address] [address] Kesha Aguero CARDIAC KARLIE 3-6on 2 CK [Catalytic activity/Vol] 77 U/L Normal 26-192 [facility] Comment on above: Performed By: #### D DIM #### [facility] [address] [place] [address] Dr. Kesha Aguero CK.MB [Mass/Vol] 1.64 ng/mL Normal <=3.60 [facility] Comment on above: Performed By: #### D DIM #### [facility] [address] [place] [address] Dr. Kesha Aguero HSTROP 16.0 pg/mL Normal 4.0-51.3 [facility] Comment on above: Result Comment: CUT- OFF POINTS HAVE BEEN ESTABLISHED BASED ON THE FOURTH UNIVERSAL DEFINITIONS OF MYOCARDIAL INFARCTION. THE UPPER REFERENCE LIMIT (URL) OF TROPONIN, DEFINED THE 99TH PERCENTILE OF cTnI DISTRIBUTION IN A REFERENCE POPULATION, HAS BEEN CONFIRMED THE DECISION THRESHOLD FOR [place] DIAGNOSIS. Performed By: #### D DIM #### [facility] [address] [place] [address] [address] Kesha Aguero CARDIAC KARLIE ADMITon 022 CK [Catalytic activity/Vol] 86 U/L Normal 26-192 [facility] Comment on above: Performed By: #### A CETON #### [facility] [address] [place] [address] Dr. Kesha Aguero CK.MB [Mass/Vol] 2.10 ng/mL Normal <=3.60 [facility] Comment on above: Performed By: #### A CETON #### [facility] [address] [place] [address] Dr. Kesha Aguero HSTROP 13.3 pg/mL Normal 4.0-51.3 [facility] Comment on above: Result Comment: CUT- OFF POINTS HAVE BEEN ESTABLISHED BASED ON THE FOURTH UNIVERSAL DEFINITIONS OF MYOCARDIAL INFARCTION. THE UPPER REFERENCE LIMIT (URL) OF TROPONIN, DEFINED THE 99TH PERCENTILE OF cTnI DISTRIBUTION IN A REFERENCE POPULATION, HAS BEEN CONFIRMED THE DECISION THRESHOLD FOR MN DIAGNOSIS. Performed By: #### A CETON #### [facility] [address] [place] [address] Dr. Kesha Aguero ELIAS 78 ng/mL Normal 9-82 [facility] Comment on above: Performed By: #### A CETON #### [facility] [address] [place] [address] Dr. Kesha Aguero CBC AUTO DIFFon 06-06-2022 BASO # 0.0 103/ul Normal 0.0-0.1 [facility] Comment on above: Performed By: #### C VDTBH #### [facility] [address] [place] [address] [address] Kesha Aguero Basophils/100 WBC (Bld) 0.4 % Normal 0.2-2.0 [facility] Comment on above: Performed By: #### C VDTBH #### [facility] [address] [place] [address] [address] Kesha Aguero EO # 0.1 103/ul Normal 0.0-0.7 [facility] Comment on above: Performed By: #### C VDTBH #### [facility] [address] [place] [address] Dr. Kesha Aguero Eosinophils/100 WBC (Bld) 1.8 % Normal 0.9-7.0 [facility] Comment on above: Performed By: #### C VDTBH #### [facility] [address] [place] [address] Dr. Kesha Aguero Erythrocyte distribution width (RBC) [Ratio] 13.9 % Normal 11.0-15.0 [facility] Comment on above: Performed By: #### C VDTBH #### [facility] [address] [place] [address] Dr. Kesha Aguero Hematocrit (Bld) [Volume fraction] 40.7 % Normal 36.0-48.0 [facility] Comment on above: Performed By: #### C VDTBH #### [facility] [address] [place] [address] Dr. Kesha Aguero Hemoglobin (Bld) [Mass/Vol] 12.9 g/dL Normal 12.0-16.0 [facility] Comment on above: Performed By: #### C VDTBH #### [facility] [address] [place] [address] Dr. Kesha Aguero IG # 0.01 10e3/ul Normal 0.00-0.03 [facility] Comment on above: Performed By: #### C VDTBH #### [facility] [address] [place] [address] Dr. Kesha Aguero IG % 0.1 % Normal 0.0-0.5 [facility] Comment on above: Performed By: #### C VDTBH #### [facility] [address] [place] [address] Dr. Kesha Aguero LYMPH # 2.6 103/ul Normal 1.2-3.8 [facility] Comment on above: Performed By: #### C VDTBH #### [facility] [address] [place] [address] Dr. Kesha Aguero Lymphocytes/100 WBC (Bld) 33.6 % Normal 20.5-60.0 [facility] Comment on above: Performed By: #### C VDTBH #### [facility] [address] [place] [address] Dr. Kesha Aguero MANUAL DIFF REQ NO Normal [facility] Comment on above: Performed By: #### C VDTBH #### [facility] [address] [place] [address] Dr. Kesha Aguero MCH (RBC) [Entitic mass] 26.5 pg Critically low 26.7-34.0 [facility] Comment on above: Performed By: #### C VDTBH #### [facility] [address] [place] [address] Dr. Kesha Aguero MCHC (RBC) [Mass/Vol] 31.7 g/dL Normal 29.9-35.2 [facility] Comment on above: Performed By: #### C VDTBH #### [facility] [address] [place] [address] Dr. Kesha Aguero MCV (RBC) [Entitic vol] 83.6 fL Normal 81.0-99.0 [facility] Comment on above: Performed By: #### C VDTBH #### [facility] [address] [place] [address] Dr. Kesha Aguero MONO # 0.6 103/ul Normal 0.3-0.8 [facility] Comment on above: Performed By: #### C VDTBH #### [facility] [address] [place] [address] Dr. Kesha Aguero Monocytes/100 WBC (Bld) 7.7 % Normal 1.7-12.0 [facility] Comment on above: Performed By: #### C VDTBH #### [facility] [address] [place] [address] Dr. Kesha Aguero NEUT # 4.3 103/ul Normal 1.4-6.5 [facility] Comment on above: Performed By: #### C VDTBH #### [facility] [address] [place] [address] Dr. Kesha Aguero Neutrophils/100 WBC (Bld) 56.4 % Normal 43.0-75.0 [facility] Comment on above: Performed By: #### C VDTBH #### [facility] [address] [place] [address] Dr. Kesha Aguero Platelet mean volume (Bld) [Entitic vol] 11.2 fL Normal 9.5-13.5 [facility] Comment on above: Performed By: #### C VDTBH #### [facility] [address] [place] [address] Dr. Kesha Aguero PLT 267 103/ul Normal 150-450 [facility] Comment on above: Performed By: #### C VDTBH #### [facility] [address] [place] [address] Dr. Kesha Aguero RBC 4.87 106/ul Normal 4.20-5.40 [facility] Comment on above: Performed By: #### C VDTBH #### [facility] [address] [place] [address] Dr. Kesha Aguero WBC 7.7 103/ul Normal 4.0-11.0 [facility] Comment on above: Performed By: #### C VDTBH #### [facility] [address] [place] [address] Dr. Kesha Aguero CTA CHEST WO W CONon 06-06-2 022 CTA CHEST WO W CON EXAMINATION: [...] for further assessment. Electronically authenticated by: CHRISTINA MESSNIA Date: 2022-06-06 03:54 Normal [facility]on SARS-CoV-2 (COVID-19) RNA YARA+probe Ql (Unsp spec) Not detected Normal NOT DETECTED [facility] Comment on above: Result Comment: When [...] for this test is supported by the [place] of Health and Human Service's declaration that [...] longer be used). Performed By: #### C [facility] #### [facility] [address] [place] [address] Dr. Kesha Aguero D-DIMERon 06-06-2022 D-DIMER 0.86 mg/L FEU Critically high <=0.59 [facility] Comment on above: Performed By: #### D DIM #### [facility] [address] [place] [address] Dr. Kesha Aguero D-DIMER COMMENTS SEE BELOW Normal [facility] Comment on above: Result [...] hospitalization. Performed By: #### D DIM #### [facility] [address] [place] [address] Dr. Kesha Aguero PROF CHEM 8 (BAS METB)on Anion gap [Moles/Vol] 13.1 mmol/L Normal [facility] Comment on above: Performed By: #### A CETON #### [facility] [address] [place] [address] Dr. Kesha Aguero Calcium [Mass/Vol] 10.0 mg/dL Normal 8.5-10.1 [facility] Comment on above: Performed By: #### A CETON #### [facility] [address] [place] [address] Dr. Kesha Aguero Chloride [Moles/Vol] 106 mmol/L Normal 98-107 [facility] Comment on above: Performed By: #### A CETON #### [facility] [address] [place] [address] Dr. Kesha Aguero CO2 [Moles/Vol] 24.9 mmol/L Normal 21.0-32.0 [facility] Comment on above: Performed By: #### A CETON #### [facility] [address] [place] [address] Dr. Kesha Aguero Creatinine [Mass/Vol] 1.14 mg/dL Critically high 0.55-1.02 [facility] Comment on above: Performed By: #### A CETON #### [facility] [address] [place] [address] [address] Kesha Aguero EGFR-AF IRISH 55 mL/min/1.73m2 Critically low >=60 [facility] Comment on above: Performed By: #### A CETON #### [facility] [address] [place] [address] [address] Kesha Aguero EGFR-NON AF IRISH 46 mL/min/1.73m2 Critically low >=60 [facility] Comment on above: Performed By: #### A CETON #### [facility] [address] [place] [address] [address] Kesha Aguero Glucose [Mass/Vol] 181 mg/dL Critically high 74-106 [facility] Comment on above: Performed By: #### A CETON #### [facility] [address] [place] [address] [address] Kesha Aguero Potassium [Moles/Vol] 4.0 mmol/L Normal 3.5-5.1 [facility] Comment on above: Performed By: #### A CETON #### [facility] [address] [place] [address] Dr. Kesha Aguero Sodium [Moles/Vol] 140 mmol/L Normal 136-145 [facility] Comment on above: Performed By: #### A CETON #### [facility] [address] [place] [address] [address] Kesha Aguero Urea nitrogen [Mass/Vol] 24.0 mg/dL Critically high 7.0-18.0 [facility] Comment on above: Performed By: #### A CETON #### [facility] [address] [place] [address] [address] Kesha Aguero Urea nitrogen/Creatinine [Mass ratio] 21.1 mg/mg Normal [facility] Comment on above: Performed By: #### A CETON #### [facility] [address] [place] [address] Dr. Kesha Aguero TROPONIN, HIGH SENSITIVITYon 06-06-2022 HSTROP 16.7 pg/mL Normal 4.0-51.3 [facility] Comment on above: Result Comment: CUT- OFF POINTS HAVE BEEN ESTABLISHED BASED ON THE FOURTH UNIVERSAL DEFINITIONS OF MYOCARDIAL INFARCTION. THE UPPER REFERENCE LIMIT (URL) OF TROPONIN, DEFINED THE 99TH PERCENTILE OF cTnI DISTRIBUTION IN A REFERENCE POPULATION, HAS BEEN CONFIRMED THE DECISION THRESHOLD FOR [place] DIAGNOSIS. Performed By: #### A LDOREN #### [facility] [address] [place] [address] [address] Kesha Aguero XR CHEST 1 Von [...] CHRISTINA MESSINA Date: 2022-06-06 02:23 Normal [facility] Activated partial thrombopla stin time (aPTT) in platelet poor plasma by coagulation aOrdered By: Herminia Lawler on 05-11-2022 aPTT Coag (PPP) [Time] 43.7 s 25.1-36.5 [facility] Creatinine and Glomerular fi ltration rate.predicted panel (S/P/Bld)Ordered By: Herminia Lawler on 05-11-2022 Creatinine [Mass/Vol] 0.97 mg/dL 0.44-1.03 [facility] Estimated glomerular filtrat ion rate (GFR) non- AmericanOrdered By: Herminia Lawler on 05-11-2022 GFR/1.73 sq M.predicted among non-blacks MDRD (S/P/Bld) [Vol rate/Area] 55 mL/Min [facility] Glucose Glucometer (BldC) [M ass/Vol]Ordered By: Herminia Lawler on 05-11-2022 Glucose [Mass/Vol] 281 mg/dL [facility] Comment on above: Random Glucose Refer ence Range is dependent on time and content of last meal. Glucose of more than 200 mg/dL in a nonstressed, ambulatory subject supports the diagnosis of Diabetes Mellitus. Laboratory - Chemistry and C hemistry - challengeOrdered By: Herminia Lawler on 05-11-2022 Magnesium [Mass/Vol] 1.7 mg/dL 1.6-2.6 [facility] No Panel InformationOrdered By: Herminia Lawler on 05-11-2022 Estimated GFR () > 60 mL/Min [facility] Comment on above: GFR estimated refere nce range: According to KDOQI guidelines, <60 ml/min/1.73m2 is sufficient to diagnose a patient with chronic kidney disease. Pharmacy Creatinine Clearance (Chem 42.73 [facility] Serum or plasma anion gap de terminationOrdered By: Herminia Lawler on 05-11-2022 Anion gap [Moles/Vol] 13.6 mmol/L 6.0-15.0 [facility] Serum or plasma calcium kristi urement (mass/volume)Ordered By: Herminia Lawler on 05-11-2022 Calcium [Mass/Vol] 9.8 mg/dL 8.2-10.2 [facility] Serum or plasma chloride dorys surement (moles/volume)Ordered By: Herminia Lawler on 05-11-2022 Chloride [Moles/Vol] 107 mmol/L 95-114 [facility] Serum or plasma glucose kristi urement (mass/volume)Ordered By: Herminia Lawler on 05-11-2022 Glucose [Mass/Vol] 187 mg/dL 70-100 [facility] Comment on above: ADA recommended refe rence range Random Glucose Reference Range is dependent on time and content of last meal. Glucose of more than 200 mg/dL in a nonstressed, ambulatory subject supports the diagnosis of Diabetes Mellitus. Serum or plasma potassium me asurement (moles/volume)Ordered By: Herminia Lawler on 05-11-2022 Potassium [Moles/Vol] 3.8 mmol/L 3.5-5.1 [facility] Serum or plasma sodium measu rement (moles/volume)Ordered By: Herminia Lawler on 05-11-2022 Sodium [Moles/Vol] 137 mmol/L 136-146 [facility] Serum or plasma total carbon dioxide measurement (moles/volume)Ordered By: Obbrent Perezomar on 05-11-2022 CO2 [Moles/Vol] 20.2 mmol/L 22.0-30.0 [facility] Serum or plasma urea nitroge n measurement (mass/volume)Ordered By: Herminia Lawler on 05-11-2022 Urea nitrogen [Mass/Vol] 21 mg/dL 05-23 [facility] Troponin I.cardiac [Mass/vol ume] in Serum or Plasma by High sensitivity methodOrdered By: Itz Townsend on 05-11-2022 Troponin I.cardiac High sensitivity method [Mass/Vol] 97 pg/mL 0- [facility] Comment on above: Results called at 0602 on 05/11/22 Albumin [Mass/volume] in Ser um or PlasmaOrdered By: Herminia Lawler on 05-10-2022 Albumin [Mass/Vol] 2.9 g/dL 3.2-5.5 [facility] Basophils Auto (Bld) [#/Vol] Ordered By: Herminia Tysonr on 05-10-2022 Basophils (Bld) [#/Vol] 0.2 10*3/uL 0.0-0.2 [facility] Basophils/100 WBC Auto (Bld) Ordered By: Herminia Tysonr on 05-10-2022 Basophils/100 WBC (Bld) 2.8 % . F [facility] Blood hemoglobin measurement (mass/volume)Ordered By: Herminia Lawler on 05-10-2022 Hemoglobin (Bld) [Mass/Vol] 12.4 g/dL 11.8-15.4 [facility] Blood leukocytes automated c ount (number/volume)Ordered By: Herminia Lawler on 05-10-2022 WBC (Bld) [#/Vol] 7.0 10*3/uL 4.5-11.0 [facility] Creatine kinase [Enzymatic a ctivity/volume] in Serum or PlasmaOrdered By: Darrion Gilbert on 05-10-2022 CK [Catalytic activity/Vol] 48 U/L 22-269 [facility] Eosinophils Auto (Bld) [#/Vo l]Ordered By: Herminia Lawler on 05-10-2022 Eosinophils (Bld) [#/Vol] 0.2 10*3/uL 0.0-0.45 [facility] Eosinophils/100 WBC Auto (Bl d)Ordered By: Obbrent Perezomar on 05-10-2022 Eosinophils/100 WBC (Bld) 2.7 % . [facility] Erythrocyte distribution wid th Auto (RBC) [Ratio]Ordered By: Herminia Lawler on 05-10-2022 Erythrocyte distribution width (RBC) [Ratio] 15.2 % 11.9-15.3 [facility] Globulin Calc (S) [Mass/Vol] Ordered By: Herminia Lawler on 05-10-2022 Globulin (S) [Mass/Vol] 2.9 g/dL F [facility] Hematocrit Auto (Bld) [Volum e fraction]Ordered By: Herminia Lawler on 05-10-2022 Hematocrit (Bld) [Volume fraction] 37.8 % 34.0-46.4 [facility] Laboratory - Hematology and Cell countsOrdered By: Herminia Lawler on 05-10-2022 Nucleated RBC/100 WBC (Bld) [Ratio] 0.3 % 0-0.5 [facility] Lymphocytes Auto (Bld) [#/Vo l]Ordered By: Obbrent Perezomar on 05-10-2022 Lymphocytes (Bld) [#/Vol] 3.0 10*3/uL 1.00-4.8 [facility] Lymphocytes/100 WBC Auto (Bl d)Ordered By: Obbrent Perezomar on 05-10-2022 Lymphocytes/100 WBC (Bld) 42.4 % . [facility] MCH Auto (RBC) [Entitic mass ]Ordered By: Obbrent Perezomar on 05-10-2022 MCH (RBC) [Entitic mass] 26.4 pg 24.7-34.3 [facility] MCHC Auto (RBC) [Mass/Vol]Or dered By: Obaydah Chrisomar on 05-10-2022 MCHC (RBC) [Mass/Vol] 32.8 g/dL 32.0-35.0 [facility] MCV Auto (RBC) [Entitic vol] Ordered By: Obaydah Daromar on 05-10-2022 MCV (RBC) [Entitic vol] 80.5 fL 80-100 F [facility] Monocytes Auto (Bld) [#/Vol] Ordered By: Obaydah Daromar on 05-10-2022 Monocytes (Bld) [#/Vol] 0.4 10*3/uL 0.0-0.8 [facility] Monocytes/100 WBC Auto (Bld) Ordered By: Obdarindah Daromar on 05-10-2022 Monocytes/100 WBC (Bld) 6.4 % . F [facility] Neutrophils Auto (Bld) [#/Vo l]Ordered By: Obaydah Daromar on 05-10-2022 Neutrophils (Bld) [#/Vol] 3.2 10*3/uL 1.8-7.7 [facility] Neutrophils/100 WBC Auto (Bl d)Ordered By: Obdarindah Daromar on 05-10-2022 Neutrophils/100 WBC (Bld) 45.7 % . [facility] No Panel InformationOrdered By: Herminia Perezomar on 05-10-2022 Bedside Glucose Comment Glu2: cleaned meter [facility] Platelet mean volume Auto (B ld) [Entitic vol]Ordered By: Obaydah Daromar on 05-10-2022 Platelet mean volume (Bld) [Entitic vol] 8.3 fL 6.3-10.7 [facility] Platelets Auto (Bld) [#/Vol] Ordered By: Obaydah Daromar on 05-10-2022 Platelets (Bld) [#/Vol] 236 10*3/uL 150-450 [facility] Protein [Mass/volume] in Ser um or PlasmaOrdered By: Obaydah Daromar on 05-10-2022 Protein [Mass/Vol] 5.8 g/dL 6.1-7.9 [facility] RBC Auto (Bld) [#/Vol]Ordere d By: Herminia Lawler on 05-10-2022 RBC (Bld) [#/Vol] 4.70 10*6/uL 3.60-5.00 [facility] Serum or plasma alanine landa otransferase measurement without P-5'-P (enzymatic activiOrdered By: Herminia Lawler on 05-10-2022 ALT No additional P-5'-P [Catalytic activity/Vol] 18 U/L 10-60 [facility] Serum or plasma albumin/glob ulin mass ratioOrdered By: Herminia Lawler on 05-10-2022 Albumin/Globulin [Mass ratio] 1.0 {ratio} [facility] Serum or plasma alkaline jama sphatase measurement (enzymatic activity/volume)Ordered By: Herminia Lawler on 05-10-2022 ALP [Catalytic activity/Vol] 75 U/L 32-92 [facility] Serum or plasma aspartate am inotransferase measurement (enzymatic activity/volume)Ordered By: Herminia Lawler on 05-10-2022 AST [Catalytic activity/Vol] 18 U/L 10-42 [facility] Serum or plasma creatine kin ase MB (CKMB)/total creatine kinase (CK) ratio by calculaOrdered By: Darrion Gilbert on 05-10-2022 CK.MB Calc [Catalytic fraction] 6.8 % 0.00-2.50 [facility] Serum or plasma creatine kin ase MB measurement (mass/volume)Ordered By: Darrion Gilbert on 05-10-2022 CK.MB [Mass/Vol] 3.3 ng/mL 0.6-6.3 [facility] Serum or plasma total biliru bin measurement (mass/volume)Ordered By: Herminia Lawler on 05-10-2022 Bilirubin [Mass/Vol] 0.4 mg/dL 0.3-1.2 [facility] ACETONE SERUMon 05-09-2022 ACETONE Negative Normal NEGATIVE [facility] Comment on above: Performed By: #### A CETON #### [facility] [address] [place] [address] Dr. Kesha Aguero CBC AUTO DIFFon 05-09-2022 BASO # 0.0 103/ul Normal 0.0-0.1 [facility] Comment on above: Performed By: #### A CETON #### [facility] [address] [place] [address] Dr. Kesha Aguero Basophils/100 WBC (Bld) 0.5 % Normal 0.2-2.0 [facility] Comment on above: Performed By: #### A CETON #### [facility] [address] [place] [address] Dr. Kesha Aguero EO # 0.1 103/ul Normal 0.0-0.7 [facility] Comment on above: Performed By: #### A CETON #### [facility] [address] [place] [address] Dr. Kesha Aguero Eosinophils/100 WBC (Bld) 1.5 % Normal 0.9-7.0 [facility] Comment on above: Performed By: #### A CETON #### [facility] [address] [place] [address] Dr. Kesha Aguero Erythrocyte distribution width (RBC) [Ratio] 14.1 % Normal 11.0-15.0 [facility] Comment on above: Performed By: #### A CETON #### [facility] [address] [place] [address] Dr. Kesha Aguero Hematocrit (Bld) [Volume fraction] 40.7 % Normal 36.0-48.0 [facility] Comment on above: Performed By: #### A CETON #### [facility] [address] [place] [address] Dr. Kesha Aguero Hemoglobin (Bld) [Mass/Vol] 13.0 g/dL Normal 12.0-16.0 [facility] Comment on above: Performed By: #### A CETON #### [facility] [address] [place] [address] Dr. Kesha Aguero IG # 0.01 10e3/ul Normal 0.00-0.03 [facility] Comment on above: Performed By: #### A CETON #### [facility] [address] [address] [address] Kesha Aguero IG % 0.1 % Normal 0.0-0.5 [facility] Comment on above: Performed By: #### A CETON #### [facility] [address] [address] [address] Kesha Aguero LYMPH # 2.6 103/ul Normal 1.2-3.8 [facility] Comment on above: Performed By: #### A CETON #### [facility] [address] [place] [address] Dr. Kesha Aguero Lymphocytes/100 WBC (Bld) 33.0 % Normal 20.5-60.0 [facility] Comment on above: Performed By: #### A CETON #### [facility] [address] [place] [address] Dr. Kesha Aguero MANUAL DIFF REQ NO Normal [facility] Comment on above: Performed By: #### A CETON #### [facility] [address] [place] [address] Dr. Kesha Aguero MCH (RBC) [Entitic mass] 26.5 pg Critically low 26.7-34.0 [facility] Comment on above: Performed By: #### A CETON #### [facility] [address] [place] [address] Dr. Kesha Aguero MCHC (RBC) [Mass/Vol] 31.9 g/dL Normal 29.9-35.2 [facility] Comment on above: Performed By: #### A CETON #### [facility] [address] [place] [address] Dr. Kesha Aguero MCV (RBC) [Entitic vol] 82.9 fL Normal 81.0-99.0 [facility] Comment on above: Performed By: #### A CETON #### [facility] [address] [address] [address] Kesha Aguero MONO # 0.6 103/ul Normal 0.3-0.8 [facility] Comment on above: Performed By: #### A CETON #### [facility] [address] [address] [address] Kesha Aguero Monocytes/100 WBC (Bld) 7.1 % Normal 1.7-12.0 [facility] Comment on above: Performed By: #### A CETON #### [facility] [address] [place] [address] Dr. Kesha Aguero NEUT # 4.5 103/ul Normal 1.4-6.5 [facility] Comment on above: Performed By: #### A CETON #### [facility] [address] [place] [address] Dr. Kesha Aguero Neutrophils/100 WBC (Bld) 57.8 % Normal 43.0-75.0 [facility] Comment on above: Performed By: #### A CETON #### [facility] [address] [place] [address] Dr. Kesha Aguero Platelet mean volume (Bld) [Entitic vol] 10.4 fL Normal 9.5-13.5 [facility] Comment on above: Performed By: #### A CETON #### [facility] [address] [place] [address] Dr. Kesha Aguero PLT 208 103/ul Normal 150-450 [facility] Comment on above: Performed By: #### A CETON #### [facility] [address] [place] [address] Dr. Kesha Aguero RBC 4.91 106/ul Normal 4.20-5.40 [facility] Comment on above: Performed By: #### A CETON #### [facility] [address] [place] [address] Dr. Kesha Aguero WBC 7.9 103/ul Normal 4.0-11.0 [facility] Comment on above: Performed By: #### A CETON #### [facility] [address] [place] [address] Dr. Kesha Aguero CTA ABD/PELVIS WO W [...] [place] Date: 2022-05-09 07:19 Normal [facility] Cholesterol [Mass/volume] in Serum or PlasmaOrdered By: Herminia Lawler on 05-09-2022 Cholesterol [Mass/Vol] 112 mg/dL 140-200 [facility] Comment on above: Chol less than 200 m g/dl low risk Chol 201-239 mg/dl borderline risk Chol 240 mg/dl and greater high risk Cholesterol in LDL Calc [Mas s/Vol]Ordered By: Herminia Lawler on 05-09-2022 Cholesterol in LDL [Mass/Vol] 51 mg/dL 0-100 [facility] Comment on above: LDL ATP III CLASSIFI CATION LDL less than 100 mg/dL Optimal LDL 100-129 mg/dL Near or above optimal LDL 130-159 mg/dL Borderline high LDL 160-189 mg/dL High LDL greater than 189 mg/dL Very high Cholesterol in VLDL Calc [Ma ss/Vol]Ordered By: Herminia Lawler on 05-09-2022 Cholesterol in VLDL [Mass/Vol] 31 mg/dL [facility] Covid-19 PCR (CVDTB)on SARS-CoV-2 (COVID-19) RNA YARA+probe Ql (Unsp spec) Not detected Normal NOT DETECTED [facility] Comment on above: Result Comment: When [...] for this test is supported by the Bedspread Cutter Hand of Health and Human Service's declaration that [...] used). Performed By: #### C VDTB #### [facility] [address] [place] [address] Dr. Kesha Aguero Glucose mean value [Mass/vol ume] in Blood Estimated from glycated hemoglobinOrdered By: Herminia Lawler on 05-09-2022 Average glucose Estimated from glycated hemoglobin (Bld) [Mass/Vol] 263 mg/dL [facility] Hemoglobin A1c percentageOrd ered By: Herminia Lawler on 05-09-2022 HbA1c (Bld) [Mass fraction] 10.8 % 4.3-5.6 [facility] Comment on above: Increased risk for d iabetes: 5.7 - 6.4 diabetes: >6.4 glycemic control for adults with diabetes: <7.0 LIPASEon 05-09-2022 Lipase [Catalytic activity/Vol] 287.0 U/L Normal 73.0-393.0 [facility] Comment on above: Performed By: #### C VDTBH #### [facility] [address] [place] [address] Dr. Kesha Aguero Laboratory - CoagulationOrde red By: Herminia Lawler on 05-09-2022 PT Coag (PPP) [Time] 11.6 s 9.0-12.9 [facility] POINT OF CARE GLUCOSEon Glucose [Mass/Vol] 387 mg/dL Critically high [address] [place] [address] Comment on above: Performed By: #### C VDTBH #### [facility] [address] [address] [address] Kesha Aguero Glucose [Mass/Vol] 432 mg/dL Critically high [address] [place] [address] Comment on above: Performed By: #### P OCGLUC #### [facility] [address] [address] [address] Kesha Aguero PROF 14(COMP METB)on 022 Albumin [Mass/Vol] 3.5 g/dL Normal 3.4-5.0 [facility] Comment on above: Performed By: #### C VDTBH #### [facility] [address] [place] [address] Dr. Kesha Aguero Albumin/Globulin [Mass ratio] 1.0 {ratio} Normal [facility] Comment on above: Performed By: #### C VDTBH #### [facility] [address] [address] [address] Kesha Aguero ALP [Catalytic activity/Vol] 115 U/L Normal 46-116 [facility] Comment on above: Performed By: #### C VDTBH #### [facility] [address] [address] [address] Kesha Aguero ALT [Catalytic activity/Vol] 24 U/L Normal 14-59 [facility] Comment on above: Performed By: #### C VDTBH #### [facility] [address] [address] [address] Kesha Aguero Anion gap [Moles/Vol] 15.3 mmol/L Normal [facility] Comment on above: Performed By: #### C VDTBH #### [facility] [address] [place] [address] Dr. Kesha Aguero AST [Catalytic activity/Vol] 16 U/L Normal 15-37 [facility] Comment on above: Performed By: #### C VDTBH #### [facility] [address] [address] [address] Kesha Aguero Bilirubin [Mass/Vol] 0.4 mg/dL Normal 0.2-1.0 [facility] Comment on above: Performed By: #### C VDTBH #### [facility] [address] [address] [address] Kesha Aguero Calcium [Mass/Vol] 9.6 mg/dL Normal 8.5-10.1 [facility] Comment on above: Performed By: #### C VDTBH #### [facility] [address] [address] [address] Kesha Aguero Chloride [Moles/Vol] 102 mmol/L Normal 98-107 [facility] Comment on above: Performed By: #### C VDTBH #### [facility] [address] [address] [address] Kesha Aguero CO2 [Moles/Vol] 19.7 mmol/L Critically low 21.0-32.0 [facility] Comment on above: Performed By: #### C VDTBH #### [facility] [address] [place] [address] Dr. Kesha Aguero Creatinine [Mass/Vol] 1.22 mg/dL Critically high 0.55-1.02 [facility] Comment on above: Performed By: #### C VDTBH #### [facility] [address] [place] [address] Dr. Kesha Aguero EGFR-AF IRISH 51 mL/min/1.73m2 Critically low >=60 [facility] Comment on above: Performed By: #### C VDTBH #### [facility] [address] [place] [address] Dr. Kesha Aguero EGFR-NON AF IRISH 42 mL/min/1.73m2 Critically low >=60 [facility] Comment on above: Performed By: #### C VDTBH #### [facility] [address] [place] [address] Dr. Kesha Aguero Globulin (S) [Mass/Vol] 3.6 g/dL Normal [facility] Comment on above: Performed By: #### C VDTBH #### [facility] [address] [place] [address] Dr. Kesha Aguero Glucose [Mass/Vol] 499 mg/dL Critically high 74-106 [facility] Comment on above: Performed By: #### C VDTBH #### [facility] [address] [place] [address] Dr. Kesha Aguero Potassium [Moles/Vol] 4.0 mmol/L Normal 3.5-5.1 [facility] Comment on above: Performed By: #### C VDTBH #### [facility] [address] [place] [address] Dr. Kesha Aguero Protein [Mass/Vol] 7.1 g/dL Normal 6.4-8.2 [facility] Comment on above: Performed By: #### C VDTBH #### [facility] [address] [place] [address] Dr. Kesha Aguero Sodium [Moles/Vol] 133 mmol/L Critically low 136-145 [facility] Comment on above: Performed By: #### C VDTBH #### [facility] [address] [address] [address] Kesha Aguero Urea nitrogen [Mass/Vol] 27.0 mg/dL Critically high 7.0-18.0 [facility] Comment on above: Performed By: #### C VDTBH #### [facility] [address] [place], [place] [address] Dr. Kesha Aguero Urea nitrogen/Creatinine [Mass ratio] 22.1 mg/mg Normal [facility] Comment on above: Performed By: #### C VDTBH #### [facility] [address] [address] [address] Kesha Aguero Phosphate [Mass/volume] in S jefferson or PlasmaOrdered By: Herminia Lawler on 05-09-2022 Phosphate [Mass/Vol] 3.5 mg/dL 2.5-4.6 [facility] Platelet poor plasma interna tional normalized ratio (INR) by coagulation assay (relatOrdered By: Herminia Lawler on 05-09-2022 INR Coag (PPP) [Relative time] 1.0 {INR} [facility] Comment on above: INR Therapeutic Rang [...] Cholesterol in HDL [Mass/Vol] 30 mg/dL 35-85 [facility] Comment on above: HDL CHOL ATP-III CLA SSIFICATION Cardiovascular Risk HDL > or equal to 60 mg/dL LOW HDL < 40 mg/dL HIGH Serum or plasma total choles terol/high density lipoprotein (HDL) cholesterol mass ratOrdered By: Herminia Lawler on 05-09-2022 Cholesterol.total/Shey sterol in HDL [Mass ratio] 3.7 {ratio} <5.0 [facility] TROPONIN, HIGH SENSITIVITYon 05-09-2022 HSTROP 603.9 pg/mL Critically high 4.0-51.3 [facility] Comment on above: Result Comment: CUT- OFF POINTS HAVE BEEN ESTABLISHED BASED ON THE FOURTH UNIVERSAL DEFINITIONS OF MYOCARDIAL INFARCTION. THE UPPER REFERENCE LIMIT (URL) OF TROPONIN, DEFINED THE 99TH PERCENTILE OF cTnI DISTRIBUTION IN A REFERENCE POPULATION, HAS BEEN CONFIRMED THE DECISION THRESHOLD FOR [place] DIAGNOSIS. Performed By: #### A CETON #### [facility] [address] [place], [place] [address] Dr. Kesha Aguero HSTROP 24.7 pg/mL Normal 4.0-51.3 [facility] Comment on above: Result Comment: CUT- OFF POINTS HAVE BEEN ESTABLISHED BASED ON THE FOURTH UNIVERSAL DEFINITIONS OF MYOCARDIAL INFARCTION. THE UPPER REFERENCE LIMIT (URL) OF TROPONIN, DEFINED THE 99TH PERCENTILE OF cTnI DISTRIBUTION IN A REFERENCE POPULATION, HAS BEEN CONFIRMED THE DECISION THRESHOLD FOR [place] DIAGNOSIS. Performed By: #### C VDTBH #### [facility] [address] [address] [address] Kesha Aguero Triglyceride [Mass/volume] i n Serum or PlasmaOrdered By: Herminia Lawler on 05-09-2022 Triglyceride [Mass/Vol] 156 mg/dL 35-149 [facility] Comment on above: TRIG ATP III CLASSIF ICATION TRIG less than 150 mg/dL Normal TRIG 150-199 mg/dL Borderline high TRIG 200-500 mg/dL High TRIG greater than 500 mg/dL Very high Standard traceable to the Center for Disease Conrtrol and Prevention (CDC) test method. Covid-19 PCR (CVDTB)on SARS-CoV-2 (COVID-19) RNA YARA+probe Ql (Unsp spec) Not detected Normal NOT DETECTED [facility] Comment on above: Result Comment: This test is not yet approved or cleared by the [place] FDA. When there are no FDA-approved or cleared tests available, and other criteria are met, FDA can make tests available under an emergency access mechanism called an Emergency Use Authorization (EUA). The EUA for this test is supported by the Bedspread Cutter Hand of Health and Human Service's (HHS's) declaration [...] SARS-CoV-2. Performed By: #### C VDTB #### [facility] [address] [place] [address] Dr. Kesha Aguero PROF CHEM 8 (BAS METB)on Anion gap [Moles/Vol] 13.7 mmol/L Normal [facility] Comment on above: Performed By: #### D DIM #### [facility] [address] [place] [address] Dr. Kesha Aguero Calcium [Mass/Vol] 9.8 mg/dL Normal 8.5-10.1 [facility] Comment on above: Performed By: #### D DIM #### [facility] [address] [place] [address] Dr. Kesha Aguero Chloride [Moles/Vol] 102 mmol/L Normal 98-107 [facility] Comment on above: Performed By: #### D DIM #### [facility] [address] [place] [address] Dr. Kesha Aguero CO2 [Moles/Vol] 26.0 mmol/L Normal 21.0-32.0 [facility] Comment on above: Performed By: #### D DIM #### [facility] [address] [place] [address] Dr. Kesha Aguero Creatinine [Mass/Vol] 1.22 mg/dL Critically high 0.55-1.02 [facility] Comment on above: Performed By: #### D DIM #### [facility] [address] [place] [address] Dr. Kesha Aguero EGFR-AF IRISH 51 mL/min/1.73m2 Critically low >=60 [facility] Comment on above: Performed By: #### D DIM #### [facility] [address] [address] [address] Kesha Aguero EGFR-NON AF IRISH 42 mL/min/1.73m2 Critically low >=60 [facility] Comment on above: Performed By: #### D DIM #### [facility] [address] [address] [address] Kesha Aguero Glucose [Mass/Vol] 323 mg/dL Critically high 74-106 [facility] Comment on above: Performed By: #### D DIM #### [facility] [address] [address] [address] Kesha Aguero Potassium [Moles/Vol] 4.7 mmol/L Normal 3.5-5.1 [facility] Comment on above: Performed By: #### D DIM #### [facility] [address] [address] [address] Kesha Aguero Sodium [Moles/Vol] 137 mmol/L Normal 136-145 [facility] Comment on above: Performed By: #### D DIM #### [facility] [address] [address] [address] Kesha Aguero Urea nitrogen [Mass/Vol] 31.0 mg/dL Critically high 7.0-18.0 [facility] Comment on above: Performed By: #### D DIM #### [facility] [address] [address] [address] Kesha Aguero Urea nitrogen/Creatinine [Mass ratio] 25.4 mg/mg Normal [facility] Comment on above: Performed By: #### D DIM #### [facility] [address] [address] [address] Kesha Aguero Cardiovascular Lab Reporton 04-22-2022 Cardiovascular Lab Report [facility] Patient Name: [facility] A MR #: [id number] Department of Physician: Edison Gibbs M.D. Division of Service Date: 04/21/2022 Cardiology Birthdate: 1940 Adult Cardiovascular Room #: [facility] [address] [place] [address] Cardiovascular Laboratory Report CLINICAL PRESENTATION: The patient is an 82-year-old female with past medical history significant for hypertension, hyperlipidemia, CAD, PCI to ramus, DRILL SERGEANT LAD, and systolic heart failure with EF [...] Farxiga. Monitor labs. 5. Outpatient followup with [facility]. 6. Referral to cardiac rehabilitation. PROCEDURES: [...] infiltrated over the left radial artery. A 6-Ivorian for Terumo Glidesheath slender was placed in the left radial artery. Radial anti-vasospasm cocktail of verapamil and nitroglycerin was administered to prevent spasm. All catheter exchanges were made over the Magic Torque guidewire. This was a planned PCI procedure. Heparin anticoagulation was administered and ACT was maintained greater than 250 seconds. A [employer] 6-Ivorian JR4 guide was engaged to right coronary [...] througho (more content not included)... Normal [facility] SARS-CoV-2 (COVID-19) RNA YARA+probe Ql (Unsp spec) Not detected Normal NOT DETECTED [facility] Comment on above: Result Comment: This test is not yet approved or cleared by the [place] FDA. When there are no FDA-approved or cleared tests available, and other criteria are met, FDA can make tests available under an emergency access mechanism called an Emergency Use Authorization (EUA). The EUA for this test is supported by the Bedspread Cutter Hand of Health and Human Service's (HHS's) declaration [...] SARS-CoV-2. Performed By: #### D DIM #### [facility] [address] [place] [address] Dr. Kesha Aguero HEMOGRAM AND PLATELon 2021 Hematocrit (Bld) [Volume fraction] 41.6 % Normal 36.0-48.0 [facility] Comment on above: Performed By: #### C VDTB #### [facility] [address] [place] [address] Dr. Kesha Aguero Hemoglobin (Bld) [Mass/Vol] 13.2 g/dL Normal 12.0-16.0 [facility] Comment on above: Performed By: #### C VDTB #### [facility] [address] [place] [address] Dr. Kesha Aguero MCH (RBC) [Entitic mass] 26.2 pg Critically low 26.7-34.0 [facility] Comment on above: Performed By: #### C VDTBH #### [facility] [address] [place] [address] Dr. Kesha Aguero MCHC (RBC) [Mass/Vol] 31.7 g/dL Normal 29.9-35.2 [facility] Comment on above: Performed By: #### C VDTBH #### [facility] [address] [place] [address] Dr. Kesha Aguero MCV (RBC) [Entitic vol] 82.7 fL Normal 81.0-99.0 [facility] Comment on above: Performed By: #### C VDTBH #### [facility] [address] [place] [address] Dr. Kesha Aguero PLT 272 103/ul Normal 150-450 [facility] Comment on above: Performed By: #### C VDTBH #### [facility] [address] [place] [address] Dr. Kesha Aguero RBC 5.03 106/ul Normal 4.20-5.40 [facility] Comment on above: Performed By: #### C VDTBH #### [facility] [address] [place] [address] Dr. Kesha Aguero WBC 5.9 103/ul Normal 4.0-11.0 [facility] Comment on above: Performed By: #### C VDTBH #### [facility] [address] [place] [address] Dr. Kesha Aguero PROF CHEM 8 (BAS METB)on Anion gap [Moles/Vol] 12.8 mmol/L Normal [facility] Comment on above: Performed By: #### D DIM #### [facility] [address] [place] [address] Dr. Kesha Aguero Calcium [Mass/Vol] 9.6 mg/dL Normal 8.5-10.1 [facility] Comment on above: Performed By: #### D DIM #### [facility] [address] [place] [address] Dr. Kesha Aguero Chloride [Moles/Vol] 105 mmol/L Normal 98-107 [facility] Comment on above: Performed By: #### D DIM #### [facility] [address] [place] [address] Dr. Kesha Aguero CO2 [Moles/Vol] 25.6 mmol/L Normal 21.0-32.0 [facility] Comment on above: Performed By: #### D DIM #### [facility] [address] [address] [address] Kesha Aguero Creatinine [Mass/Vol] 1.07 mg/dL Critically high 0.55-1.02 [facility] Comment on above: Performed By: #### D DIM #### [facility] [address] [place] [address] Dr. Kesha Aguero EGFR-AF IRISH 59 mL/min/1.73m2 Critically low >=60 [facility] Comment on above: Performed By: #### D DIM #### [facility] [address] [place] [address] Dr. Kesha Aguero EGFR-NON AF IRISH 49 mL/min/1.73m2 Critically low >=60 [facility] Comment on above: Performed By: #### D DIM #### [facility] [address] [place] [address] Dr. Kesha Aguero Glucose [Mass/Vol] 264 mg/dL Critically high 74-106 [facility] Comment on above: Performed By: #### D DIM #### [facility] [address] [place] [address] Dr. Kesha Aguero Potassium [Moles/Vol] 4.4 mmol/L Normal 3.5-5.1 [facility] Comment on above: Performed By: #### D DIM #### [facility] [address] [place] [address] Dr. Kesha Aguero Sodium [Moles/Vol] 139 mmol/L Normal 136-145 [facility] Comment on above: Performed By: #### D DIM #### [facility] [address] [address] [address] Kesha Aguero Urea nitrogen [Mass/Vol] 17.0 mg/dL Normal 7.0-18.0 [facility] Comment on above: Performed By: #### D DIM #### [facility] [address] [place] [address] Dr. Kesha Aguero Urea nitrogen/Creatinine [Mass ratio] 15.9 mg/mg Normal [facility] Comment on above: Performed By: #### D DIM #### [facility] [address] [place] [address] Dr. Kesha Aguero MAGNESIUMon 03-12-2022 Magnesium [Mass/Vol] 1.8 mg/dL Normal 1.8-2.4 [facility] Comment on above: Performed By: #### D DIM #### [facility] [address] [place] [address] Dr. Kesha Aguero PROF CHEM 8 (BAS METB)on Anion gap [Moles/Vol] 13.9 mmol/L Normal [facility] Comment on above: Performed By: #### D DIM #### [facility] [address] [place] [address] Dr. Kesha Aguero Calcium [Mass/Vol] 9.8 mg/dL Normal 8.5-10.1 [facility] Comment on above: Performed By: #### D DIM #### [facility] [address] [place] [address] Dr. Kesha Aguero Chloride [Moles/Vol] 101 mmol/L Normal 98-107 [facility] Comment on above: Performed By: #### D DIM #### [facility] [address] [place] [address] Dr. Kesha Aguero CO2 [Moles/Vol] 24.8 mmol/L Normal 21.0-32.0 [facility] Comment on above: Performed By: #### D DIM #### [facility] [address] [place] [address] Dr. Kesha Aguero Creatinine [Mass/Vol] 1.28 mg/dL Critically high 0.55-1.02 [facility] Comment on above: Performed By: #### D DIM #### [facility] [address] [place] [address] Dr. Kesha Aguero EGFR-AF IRISH 48 mL/min/1.73m2 Critically low >=60 [facility] Comment on above: Performed By: #### D DIM #### [facility] [address] [address] [address] Kesha Aguero EGFR-NON AF IRISH 40 mL/min/1.73m2 Critically low >=60 [facility] Comment on above: Performed By: #### D DIM #### [facility] [address] [address] [address] Kesha Aguero Glucose [Mass/Vol] 214 mg/dL Critically high 74-106 [facility] Comment on above: Performed By: #### D DIM #### [facility] [address] [address] [address] Kesha Aguero Potassium [Moles/Vol] 4.7 mmol/L Normal 3.5-5.1 [facility] Comment on above: Performed By: #### D DIM #### [facility] [address] [address] [address] Kesha Aguero Sodium [Moles/Vol] 135 mmol/L Critically low 136-145 [facility] Comment on above: Performed By: #### D DIM #### [facility] [address] [address] [address] Kesha Aguero Urea nitrogen [Mass/Vol] 26.0 mg/dL Critically high 7.0-18.0 [facility] Comment on above: Performed By: #### D DIM #### [facility] [address] [address] [address] Kesha Aguero Urea nitrogen/Creatinine [Mass ratio] 20.3 mg/mg Normal [facility] Comment on above: Performed By: #### D DIM #### [facility] [address] [address] [address] Kesha Aguero Cardiovascular Lab Reporton 2022 Cardiovascular Lab Report [facility]: [id number] Department of Physician: Edison Gibbs M.D. Division of Service Date: 03/07/2022 Cardiology Birthdate: 1940 Adult Cardiovascular Room #: [facility] [address] [place] [address] Cardiovascular Laboratory Report CLINICAL PRESENTATION: The patient [...] mid LAD has 100% chronic total occlusion (DRILL SERGEANT). The ramus coronary artery has a proximal [...] right PDA disease. 8. Outpatient followup with [facility]. 9. Since the right heart catheterization [...] ultrasound guidance and micropuncture access technique, a 6-Ivorian sheath was placed in right internal jugular [...] anesthetized with 1% lidocaine and then a 6-Ivorian Terumo Glidesheath slender placed in the left radial artery. The radial anti-vasospasm cocktail of nitroglycerin 200 mcg and verapamil 2.5 mg administered through the sheath. All catheters and sheaths were made over the [employer] guidewire. A 5-Ivorian JR 5 was used to engage the right coronary artery. 5-Ivorian JL 3.5 was used to engage the left main coronary artery. Coronary angiogram was performed in multiple orthogonal views using hand injection of contrast. 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 I elected to proceed with PCI given the patient's advanced age. A Cordis 6-Ivorian XB 3.0 guide was engaged in left main coronary artery. Heparin anticoagulation was used for this procedure. ACT was maintained greater than 200 seconds. Run-through wire was manipulated into the coronary arteries. First, I probed the LAD and it did in fact behave as a DRILL SERGEANT. Therefore, I turned my attention to the [...] b (more content not included)... Normal [facility] POC SARS COV2 IDon 2 SARS-CoV-2 (COVID-19) RNA YARA+probe Ql (Unsp spec) Negative Normal NEGATIVE [facility] Comment on above: Result Comment: ID Allison OW COVID-19 assay performed on the ID [...] Accreditation. Performed By: #### 3 1921 #### [facility] [address] [place] [address], [facility] CBC AUTO DIFFon 03-01-2022 BASO # 0.1 103/ul Normal 0.0-0.1 [facility] Comment on above: Performed By: #### C VDTBH #### [facility] [address] [place] [address] Dr. Kesha Aguero Basophils/100 WBC (Bld) 0.7 % Normal 0.2-2.0 [facility] Comment on above: Performed By: #### C VDTBH #### [facility] [address] [place] [address] Dr. Kesha Aguero EO # 0.1 103/ul Normal 0.0-0.7 [facility] Comment on above: Performed By: #### C VDTBH #### [facility] [address] [place] [address] Dr. Kesha Aguero Eosinophils/100 WBC (Bld) 1.2 % Normal 0.9-7.0 [facility] Comment on above: Performed By: #### C VDTBH #### [facility] [address] [place] [address] Dr. Kesha Aguero Erythrocyte distribution width (RBC) [Ratio] 14.0 % Normal 11.0-15.0 [facility] Comment on above: Performed By: #### C VDTBH #### [facility] [address] [place] [address] Dr. Kesha Aguero Hematocrit (Bld) [Volume fraction] 40.9 % Normal 36.0-48.0 [facility] Comment on above: Performed By: #### C VDTBH #### [facility] [address] [place] [address] Dr. Kesha Aguero Hemoglobin (Bld) [Mass/Vol] 13.1 g/dL Normal 12.0-16.0 [facility] Comment on above: Performed By: #### C VDTBH #### [facility] [address] [place] [address] Dr. Kesha Aguero IG # 0.03 10e3/ul Normal 0.00-0.03 [facility] Comment on above: Performed By: #### C VDTBH #### [facility] [address] [place] [address] Dr. Kesha Aguero IG % 0.3 % Normal 0.0-0.5 [facility] Comment on above: Performed By: #### C VDTBH #### [facility] [address] [place] [address] Dr. Kesha Aguero LYMPH # 3.4 103/ul Normal 1.2-3.8 [facility] Comment on above: Performed By: #### C VDTBH #### [facility] [address] [place] [address] Dr. Kesha Aguero Lymphocytes/100 WBC (Bld) 36.9 % Normal 20.5-60.0 [facility] Comment on above: Performed By: #### C VDTBH #### [facility] [address] [place] [address] Dr. Kesha Aguero MANUAL DIFF REQ NO Normal [facility] Comment on above: Performed By: #### C VDTBH #### [facility] [address] [place] [address] Dr. Kesha Aguero MCH (RBC) [Entitic mass] 26.5 pg Critically low 26.7-34.0 [facility] Comment on above: Performed By: #### C VDTBH #### [facility] [address] [place] [address] Dr. Kesha Aguero MCHC (RBC) [Mass/Vol] 32.0 g/dL Normal 29.9-35.2 [facility] Comment on above: Performed By: #### C VDTBH #### [facility] [address] [place] [address] Dr. Kesha Aguero MCV (RBC) [Entitic vol] 82.8 fL Normal 81.0-99.0 [facility] Comment on above: Performed By: #### C VDTBH #### [facility] [address] [place] [address] Dr. Kesha Aguero MONO # 0.6 103/ul Normal 0.3-0.8 [facility] Comment on above: Performed By: #### C VDTBH #### [facility] [address] [place] [address] Dr. Kesha Aguero Monocytes/100 WBC (Bld) 6.5 % Normal 1.7-12.0 [facility] Comment on above: Performed By: #### C VDTBH #### [facility] [address] [place] [address] Dr. Kesha Aguero NEUT # 4.9 103/ul Normal 1.4-6.5 [facility] Comment on above: Performed By: #### C VDTBH #### [facility] [address] [place] [address] Dr. Kesha Aguero Neutrophils/100 WBC (Bld) 54.4 % Normal 43.0-75.0 [facility] Comment on above: Performed By: #### C VDTBH #### [facility] [address] [place] [address] Dr. Kesha Aguero Platelet mean volume (Bld) [Entitic vol] 9.5 fL Normal 9.5-13.5 [facility] Comment on above: Performed By: #### C VDTBH #### [facility] [address] [place] [address] Dr. Kesha Aguero PLT 271 103/ul Normal 150-450 [facility] Comment on above: Performed By: #### C VDTBH #### [facility] [address] [place] [address] Dr. Kesha Aguero RBC 4.94 106/ul Normal 4.20-5.40 [facility] Comment on above: Performed By: #### C VDTBH #### [facility] [address] [place] [address] Dr. Kesha Aguero WBC 9.1 103/ul Normal 4.0-11.0 [facility] Comment on above: Performed By: #### C VDTBH #### [facility] [address] [place] [address] Dr. Kesha Aguero Covid-19 PCR ([facility])on SARS-CoV-2 (COVID-19) RNA YARA+probe Ql (Unsp spec) Not detected Normal NOT DETECTED [facility] Comment on above: Result Comment: When [...] for this test is supported by the [place] of Health and Human Service's declaration that [...] used). Performed By: #### A CETON #### [facility] [address] [place] [address] Dr. Kesha Aguero PROF CHEM 8 (BAS METB)on Anion gap [Moles/Vol] 14.3 mmol/L Normal [facility] Comment on above: Performed By: #### B MP #### [facility] [address] [address] [address] Kesha Aguero Calcium [Mass/Vol] 9.7 mg/dL Normal 8.5-10.1 [facility] Comment on above: Performed By: #### B MP #### [facility] [address] [address] [address] Kesha Aguero Chloride [Moles/Vol] 100 mmol/L Normal 98-107 [facility] Comment on above: Performed By: #### B MP #### [facility] [address] [address] [address] Kesha Aguero CO2 [Moles/Vol] 27.2 mmol/L Normal 21.0-32.0 [facility] Comment on above: Performed By: #### B MP #### [facility] [address] [address] [address] Kesha Aguero Creatinine [Mass/Vol] 1.34 mg/dL Critically high 0.55-1.02 [facility] Comment on above: Performed By: #### B MP #### [facility] [address] [address] [address] Kesha Aguero EGFR-AF IRISH 46 mL/min/1.73m2 Critically low >=60 [facility] Comment on above: Performed By: #### B MP #### [facility] [address] [address] [address] Kesha Aguero EGFR-NON AF IRISH 38 mL/min/1.73m2 Critically low >=60 [facility] Comment on above: Performed By: #### B MP #### [facility] [address] [address] [address] Kesha Aguero Glucose [Mass/Vol] 232 mg/dL Critically high 74-106 [facility] Comment on above: Performed By: #### B MP #### [facility] [address] [address] [address] Kesha Aguero Potassium [Moles/Vol] 4.5 mmol/L Normal 3.5-5.1 [facility] Comment on above: Performed By: #### B MP #### [facility] [address] [address] [address] Kesha Aguero Sodium [Moles/Vol] 137 mmol/L Normal 136-145 [facility] Comment on above: Performed By: #### B MP #### [facility] [address] [address] [address] Kesha Aguero Urea nitrogen [Mass/Vol] 22.0 mg/dL Critically high 7.0-18.0 [facility] Comment on above: Performed By: #### B MP #### [facility] [address] [address] [address] Kesha Aguero Urea nitrogen/Creatinine [Mass ratio] 16.4 mg/mg Normal [facility] Comment on above: Performed By: #### B MP #### [facility] [address] [address] [address] Kesha Aguero ECHOCARDIO M/2D COMPLETEon 0 02-11-2022 ECHOCARDIO M/2D COMPLETE Patient: TERE HARTMANN Exam Date: 02/11/2022 : 1940 Gender:F Ordering : DR RODRICK BUTLER M.D. Admission #: [id number] Family : Order #: [id number] CLICK HERE TO VIEW EXAM ECHOCARDIOGRAM REPORT [...] Area(A4C): 23.90 cm2 Left Atrium Systolic Volume(A2C): 36559 mm3 Left Atrium Systolic Volume(A4C): 40853 mm3 Mitral Valve MV E to A [...] Jackson M.D. on 02/11/2022 at 18:48 Normal [facility] NM STRESS/REST MULTIon 02-11 NM STRESS/REST MULTI Patient: TERE HARTMANN Exam Date: 02/11/2022 : 1940 Gender:F Ordering : DR RODRICK BUTLER M.D. Admission #: [id number] Family : Order #: [id number] CLICK HERE TO VIEW EXAM RADIOLOGY REPORT [...] DEFECT: LOCATION: Mid-anterior. Mid-anteroseptal. Mid-anterolateral. Apical anterior. Zeigler. SIZE: Large (5 or more segments). SEVERITY: [...] Diego M.D. on 02/11/2022 at 14:41 Normal [facility] Vital Signs Date Time Vital Sign Value Performing Clinician Facility 07-04-2024 11:41-0500 Body height 170.2 cm Rodrick Butler MD Work Phone: [facility] 07-04-2024 11:41-0500 Body mass index (BMI) [Ratio] 23.65 kg/m2 Rodrick Butler MD Work Phone: [facility] 07-04-2024 11:41-0500 Body weight 68.49 kg Rodrick Butler MD Work Phone: [facility] 07-04-2024 11:41-0500 Diastolic blood pressure 70 mm[Hg] Rodrick Butler MD Work Phone: [facility] 07-04-2024 11:41-0500 Heart rate 60 /min Rodrick Butler MD Work Phone: [facility] 07-04-2024 11:41-0500 SaO2% (BldA) [Mass fraction] 97 % Rodrick Butler MD Work Phone: [facility] 07-04-2024 11:41-0500 Systolic blood pressure 138 mm[Hg] Rodrick Butler MD Work Phone: [facility] 06-08-2024 11:35-0400 Body height 170.2 cm Beverly ZAMUDIO Work Phone: [facility] 06-08-2024 11:35-0400 Body mass index (BMI) [Ratio] 23.81 kg/m2 Beverly ZAMUDIO Work Phone: [facility] 06-08-2024 11:35-0400 Body weight 68.95 kg Beverly Hemmer PA Work Phone: [facility] 06-08-2024 11:35-0400 Diastolic blood pressure 82 mm[Hg] Beverly Hemmer PA Work Phone: [facility] 06-08-2024 11:35-0400 Heart rate 60 /min Beverly Hemmer PA Work Phone: [facility] 06-08-2024 11:35-0400 Respiratory rate 16 /min Beverly Hemmer PA Work Phone: [facility] 06-08-2024 11:35-0400 SaO2% (BldA) [Mass fraction] 99 % Beverly Hemmer PA Work Phone: [facility] 06-08-2024 11:35-0400 Systolic blood pressure 148 mm[Hg] Beverly Hemmer PA Work Phone: [facility] 06-01-2024 11:23-0400 Body height 170.2 cm Rodrick Butler MD Work Phone: [facility] 06-01-2024 11:23-0400 Body mass index (BMI) [Ratio] 23.65 kg/m2 Rodrick Butler MD Work Phone: [facility] 06-01-2024 11:23-0400 Body weight 68.49 kg Rodrick Butler MD Work Phone: [facility] 06-01-2024 11:23-0400 Diastolic blood pressure 94 mm[Hg] Rodrick Butler MD Work Phone: [facility] 06-01-2024 11:23-0400 Heart rate 65 /min Rodrick Butler MD Work Phone: [facility] 06-01-2024 11:23-0400 SaO2% (BldA) [Mass fraction] 100 % Rodrick Butler MD Work Phone: [facility] 06-01-2024 11:23-0400 Systolic blood pressure 146 mm[Hg] Rodrick Butler MD Work Phone: [facility] 04-19-2024 14:27-0400 Body height 170.2 cm Beverly Hemmer PA Work Phone: [facility] 04-19-2024 14:27-0400 Body mass index (BMI) [Ratio] 23.59 kg/m2 Beverly Hemmer PA Work Phone: [facility] 04-19-2024 14:27-0400 Body weight 68.31 kg Beverly Hemmer PA Work Phone: [facility] 04-19-2024 14:27-0400 Diastolic blood pressure 76 mm[Hg] Beverly Hemmer PA Work Phone: [facility] 04-19-2024 14:27-0400 Heart rate 71 /min Beverly Hemmer PA Work Phone: [facility] 04-19-2024 14:27-0400 Respiratory rate 16 /min Beverly Hemmer PA Work Phone: [facility] 04-19-2024 14:27-0400 SaO2% (BldA) [Mass fraction] 99 % Beverly Hemmer PA Work Phone: [facility] 04-19-2024 14:27-0400 Systolic blood pressure 152 mm[Hg] Beverly Hemmer PA Work Phone: [facility] 09-22-2022 12:00-0500 Body height 162.56 cm Heather Scally Other [facility] Other 09-22-2022 12:00-0500 Body mass index (BMI) [Ratio] 24.59 kg/m2 Heather Scally Other [facility] Other 09-22-2022 12:00-0500 Body weight 65 kg Heather Scally Other [facility] Other 09-22-2022 12:00-0500 Diastolic blood pressure 76 mm[Hg] Heather Scally Other [facility] Other 09-22-2022 12:00-0500 Respiratory rate 18 /min Heather Soler Other [facility] Other 09-22-2022 12:00-0500 SaO2% (BldA) [Mass fraction] 100 % Heather Soler Other [facility] Other 09-22-2022 12:00-0500 Systolic blood pressure 136 mm[Hg] Heather Soler Other [facility] Other 05-11-2022 11:34-0400 Body temperature 97.3 [degF] II Rodrick Butler Work Phone: [facility] 05-11-2022 11:34-0400 Diastolic blood pressure 75 mm[Hg] II Rodrick Butler Work Phone: [facility] 05-11-2022 11:34-0400 Heart rate 78 /min II Rodrick Butler Work Phone: [facility] 05-11-2022 11:34-0400 Respiratory rate 20 /min II Rodrick Butler Work Phone: [facility] 05-11-2022 11:34-0400 SaO2% (BldA) [Mass fraction] 95 % II Rodrick Butler Work Phone: [facility] 05-11-2022 11:34-0400 Systolic blood pressure 122 mm[Hg] II Rodrick Butler Work Phone: [facility] 05-11-2022 06:00-0400 Body weight 69 kg II Rodrick Butler Work Phone: [facility] 05-09-2022 09:40-0400 Body height 170.18 cm II Rodrick Butler Work Phone: [facility] Encounters Encounter Date Encounter Type Care Provider Facility Start: 08-12-2024 End: 08-13-2024 Telephone encounter Rodrick Butler MD Work Phone: [facility] Start: 08-08-2024 End: 08-08-2024 ambulatory [facility] Start: 07-26-2024 End: 07-26-2024 ambulatory [facility] Start: 07-13-2024 End: 07-13-2024 ambulatory [place] Start: 07-04-2024 End: 07-04-2024 Office outpatient visit 25 minutes Rodrick Butler MD Work Phone: [facility] Comment on above: Benign essential hyp ertension (CMS/HCC) (Primary Dx); Type 2 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 gangrene, with long-term current use of insulin (CMS/HCC) Start: 07-04-2024 End: 07-04-2024 ambulatory RODRICK BUTLER Not Available Start: 06-15-2024 End: 06-15-2024 ambulatory [place] Start: 06-08-2024 End: 06-08-2024 Bamboo flowsheet Beverly Paredes PA Work Phone: [facility] Start: 06-08-2024 End: 06-08-2024 Bamboo flowsheet Beverly Paredes PA Work Phone: [facility] Start: 06-08-2024 End: 06-08-2024 Office outpatient visit 15 minutes Beverly ZAMUDIO Work Phone: [facility] Comment on above: Benign essential hyp ertension (CMS/HCC) (Primary Dx); Encounter for immunization Start: 06-08-2024 End: 06-08-2024 ambulatory BEVERLY PAREDES Not Available Start: 06-07-2024 End: 06-07-2024 Telephone encounter Beverly Paredes PA Work Phone: [facility] Start: 06-02-2024 End: 06-02-2024 ambulatory ABBIE [facility] Start: 06-01-2024 End: 06-01-2024 Transitional care manage srvc 14 day discharge Rodrick Butler MD Work Phone: [facility] Comment on above: TIA (transient ische ginna attack) (Primary Dx); Type 2 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 gangrene, with long-term current use of insulin ([facility]); Benign essential hypertension ([facility]) Start: 06-01-2024 End: 06-01-2024 ambulatory RODRICK BUTLER Not Available Start: 05-05-2024 End: 05-05-2024 ambulatory SHARONA FLETCHER Not Available Start: 05-05-2024 End: 05-05-2024 Patient encounter procedure Sharona Fletcher CHEMICAL TEST ENGINEER Work Phone: [facility] Comment on above: Acute cystitis with hematuria Start: 04-26-2024 End: 04-26-2024 Telephone encounter More Voss KRISTIN Work Phone: [facility] Start: 04-26-2024 End: 04-26-2024 ambulatory [facility] Start: 04-19-2024 End: 04-19-2024 Office outpatient visit 25 minutes Beverly ZAMUDIO Work Phone: [facility] Comment on above: Acute cystitis with hematuria (Primary Dx); Dysuria; Diabetic peripheral neuropathy ([facility]); Type 2 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 gangrene, with long-term current use of insulin ([facility]) Start: 04-19-2024 End: 04-19-2024 ambulatory BEVERLY PAREDES Not Available Start: 04-07-2024 End: 04-07-2024 ambulatory SHARONA FLETCHER Not Available Start: 02-29-2024 End: 02-29-2024 ambulatory RODRICK BUTLER Not Available Start: 01-12-2024 End: 01-12-2024 ambulatory BEVERLY PAREDES Not Available Start: 12-30-2023 End: 12-30-2023 ambulatory RODRICK BUTLER Not Available Start: 12-02-2023 End: 12-02-2023 ambulatory RODRICK BUTLER Not Available Start: 10-27-2023 End: 10-27-2023 ambulatory CODY [facility] Start: 09-17-2023 End: 09-17-2023 ambulatory RODRICK BUTLER Not Available Start: 09-16-2023 End: 09-16-2023 ambulatory ABBIE CRISOSTOMO [facility] Start: 09-09-2023 Evaluation and manag ement of inpatient [facility] Start: 09-09-2023 Evaluation and manag ement of inpatient SHAMIKA [facility] Start: 09-08-2023 Evaluation and manag ement of [facility] Start: 09-08-2023 Evaluation and manag ement of inpatient [facility] Start: 09-08-2023 Evaluation and manag ement of inpatient [facility] Start: 09-07-2023 End: 09-09-2023 Evaluation and management of inpatient MIKALA STAHL [facility] Start: 09-07-2023 End: 09-07-2023 Evaluation and management of inpatient CODY [facility] Start: 08-13-2023 End: 08-13-2023 ambulatory RODRICK BUTLER Not Available Start: 07-29-2023 End: 07-29-2023 ambulatory RODRICK BUTLER Not Available Start: 11-24-2022 End: 11-24-[address] RODRICK BUTLER Facility:[facility] Start: 09-29-2022 End: 09-30-[address] RODRICK BUTLER Facility:[facility] Start: 09-22-2022 (New DM) New Diabetes Heather Soler [facility] Start: 09-22-2022 End: 09-23-2022 ambulatory Heather Soler [facility] Other Start: 08-28-2022 End: 08-29-[address] RODRICK BUTLER Facility:[facility] Start: 08-18-2022 End: 08-19-[address] RODRICK BUTLER Facility:[facility] Start: 06-11-2022 End: 06-12-[address] RODRICK BUTLER Facility:[facility] Start: 06-06-2022 End: 06-06-2022 ambulatory REJIYASIR CARLOS Facility:[facility] Start: 05-11-2022 ambulatory Itz Townsend II Faci lity:[id number] Start: 05-10-2022 ambulatory Itz Townsend II Faci lity:[id number] Start: 05-09-2022 ambulatory Itz Townsend II Faci lity:[id number] Start: 05-09-2022 End: 05-11-2022 Evaluation and management of inpatient CHANDA Rodrickpoli Butler Work Phone: [facility] Start: 05-09-2022 End: 05-09-2022 ambulatory Itz Townsend II Facility:[id number] Start: 05-02-2022 Encounter for other preprocedural examination [facility] Start: 05-02-2022 Encounter for preprocedural laboratory examination [facility] Start: 05-01-2022 End: 05-02-[address] RODRICK BUTLER Facility:[facility] Start: 05-01-2022 End: 05-02-2022 Encounter for other preprocedural examination DR RODRICK BUTLER Facility:[facility] Start: 04-21-2022 End: 04-22-2022 ambulatory RODRICK BUTLER Facility:[facility] Start: 04-18-2022 End: 04-19-2022 ambulatory ABBIE ANDRESSA Facility:[facility] Start: 03-12-2022 End: 03-13-2022 ambulatory ABBIE CRISOSTOMO Facility:[facility] Start: 03-07-2022 End: 2022 ambulatory RODRICK BUTLER Facility:[facility] Start: 03-01-2022 End: 03-02-2022 ambulatory ABBIE CRISOSTOMO Facility:[facility] Start: 02-11-2022 End: 02-12-[address] RODRICK BUTLER Facility:[facility] Procedures Date Procedure Procedure Detail Performing Clinician Start: 06-01-2024 Hemoglobin glycosyla celia a1c Rodrick Butler MD Work Phone: Start: 05-05-2024 Urnls dip stick/tabl et rgnt non-auto w/o micrscp Sharona Fletcher CHEMICAL TEST ENGINEER Work Phone: Start: 04-19-2024 Urnls dip stick/tabl et rgnt non-auto w/o micrscp Beverly ZAMUDIO Work Phone: Plan of Treatment Date Care Activity Detail Author Start: 03-25-2025 Glaucoma screening Diabetes: R etinopathy Screening [facility] Start: 12-01-2024 Urine screening for protein Diabetes: Urine Protein Screening [facility] Start: 09-05-2024 End: 09-05-2024 Patient encounter procedure 09/05/2024 1:00 PM EST Office Visit [facility] [address] [place] [address] Rodrick Butler MD [address] [place] [address] [facility] Start: 09-01-2024 Hemoglobin A1c measurement Diabetes: Hemoglobin A1C [facility] Start: 07-04-2024 End: 07-04-2024 Patient encounter procedure 07/04/2024 11:45 AM EST Office Visit [facility] [address] [place] [address] Rodrick Butler MD [address] [place] [address] [facility] Start: 06-08-2024 End: 06-08-2024 Patient encounter procedure 06/08/2024 11:30 AM EDT Office Visit [facility] [address] [place] [address] Beverly Paredes PA [address] [place] [address] Arrived [facility] Comment on above: Arrived Start: 06-01-2024 End: 06-01-2024 Patient encounter procedure 06/01/2024 1:00 PM EDT Office Visit [facility] [address] [place] [address] Rodrick Butler MD [address] [place] [address] [facility] Start: 05-31-2024 Hemoglobin A1c measurement Diabetes: Hemoglobin A1C [facility] Start: 05-01-2024 Influenza vaccination Influenza Vacc ine (#1) [facility] Start: 04-19-2024 End: 04-19-2025 URINARY TRACT INFECTION (HTRX) URINARY TRACT INFECTION (HTRX) Lab Routine Acute cystitis with hematuria Expected: 04/19/2024 (Approximate), Expires: 04/19/2025 [facility] Work Phone: Comment on above: Expected: 04/19/2024 (Approximate), Expires: 04/19/2025 Start: 11-25-2023 Urine screening for protein Diabetes: Urine Protein Screening [facility] Start: 05-11-2022 [facility] Work Phone: Start: 05-09-2022 Hospital admission [facility] Work Phone: Start: 05-09-2022 Referral to bank reconciliator [facility] Work Phone: Patient Education Acid Reflux an d GERD in Adults (DC) Irritable Bowel Syndrome (DC) Coronary Artery Disease (DC) [facility] Work Phone: Patient referral [facility] Work Phone: URINARY TRACT INFECT ION (HTRX) URINARY TRACT INFECTION (HTRX) Lab Routine Acute cystitis with hematuria Ordered: 05/05/2024 [facility] Work Phone: Comment on above: Ordered: 05/05/2024 Immunizations Immunization Date Immunization Notes Care Provider Fa cility 06-08-2024 Influenza, High-dose Seasonal, Quadrivalent, Preservative Free Beverly ZAMUDIO Work Phone: [facility] 12-09-2023 Pneumococcal Conjuga te PCV 20 Beverly ZAMUDIO Work Phone: [facility] Work Phone: 06-16-2023 Influenza, High-dose Seasonal, Quadrivalent, Preservative Free Beverly ZAMUDIO Work Phone: [facility] 06-16-2023 influenza virus vaccine, unspecified formulation Beverly Hemmer PA Work Phone: [facility] 05-30-2022 Influenza, High-dose Seasonal, Quadrivalent, Preservative Free Beverly Hemmer PA Work Phone: [facility] 08-14-2021 Influenza, injectabl e, Madin Jocelin Canine Kidney, preservative free, quadrivalent Beverly Hemmer PA Work Phone: [facility] 05-18-2020 influenza, injectabl e, quadrivalent, preservative free Beverly Hemmer PA Work Phone: [facility] 06-10-2018 Seasonal trivalent influenza vaccine, adjuvanted, preservative free Beverly Hemmer PA Work Phone: [facility] 06-27-2013 influenza, seasonal, injectable Beverly Hemmer PA Work Phone: [facility] Payers Date Payer Category Payer Medicare [id number] 2022 Self-pay [id number] 2022 Medicare (Managed Care) [facility] [id number] 2004 Medicare [id number] 1959 Private Health Insurance [id number] 1939 Unknown [id number] 2.16.840.1.191135.3.579. 2.647 1939 Unknown [id number] 2.16.840.1.327385.3.579. 2.647 1939 Unknown [id number] 2.16.840.1.737007.3.579. 2.356 1939 Unknown [id number] 2.16.840.1.200497.3.579. 2.356 1939 Unknown [id number] 2.16.840.1.899505.3.579. 2.356 1939 Unknown [id number] 2.16840.1.379082.3.579. 2.356 1939 Unknown [id number] 2.840.1.137392.3.579. 2.593 1939 Unknown [id number] 2.16.840.1.066164.3.579. 2.593 1939 Unknown [id number] 2.16840.1.047839.3.579. 2.593 1939 Unknown [id number] 2.840.1.901195.3.579. 2.593 1939 Unknown [id number] 2.840.1.422213.3.579. 2.593 1939 Unknown [id number] 2.16840.1.186415.3.579. 2.593 1939 Unknown [id number] 2.16.840.1.293593.3.579. 2.593 1939 Unknown [id number] 2.16.840.1.487158.3.579. 2.593 1939 Unknown [id number] 2.16840.1.621792.3.579. 2.593 1939 Unknown [id number] 2.16.840.1.837765.3.579. 2.593 1939 Unknown [id number] 2.16.840.1.891455.3.579. 2.59 1939 Unknown [id number] 2.16.840.1.571672.3.579. 2.593 1939 Unknown [id number] 2.16.840.1.920117.3.579. 2.59 1939 Unknown [id number] 2.16.840.1.605598.3.579. 2.125 1939 Unknown [id number] 2.16.840.1.835868.3.579. 2.1258 1939 Unknown [id number] 2.16.840.1.222673.3.579. 2.1258 1939 Unknown [id number] 2.840.1.775316.3.579. 2.1258 1939 Unknown [id number] 2.16840.1.963515.3.579. 2.1258 1939 Unknown [id number] 2.16.840.1.011651.3.579. 2.1258 1939 Unknown [id number] 2.16840.1.107272.3.579. 2.125 1939 Unknown [id number] 2.16.840.1.709449.3.579. 2.1258 1939 Unknown [id number] 2.16.840.1.119845.3.579. 2.125 1939 Unknown [id number] 2.16.840.1.834548.3.579. 2.1258 1939 Unknown [id number] 2.16.840.1.195951.3.579. 2.125 1939 Unknown [id number] 2.16.840.1.168943.3.579. 2.125 1939 Unknown [id number] 2.16.840.1.183522.3.579. 2.1259 Private Health Insurance [id number] Unknown [place] [id number] Unknown [id number] 2.16.840.1.692699.3.579. 2.531 Social History Date Type Detail Facility Start: 05-09-2022 End: 01-28-2023 Tobacco smoking status NHIS Never smoked tobacco (finding) [facility] Start: 1940 Sex Assigned At Female [facility] Start: 04-23-2023 End: 02-29-2024 Sex Assigned At [place] Start: 01-28-2023 Tobacco use and exposure Smokeless tobacco non-user [facility] Start: 04-19-2024 End: 07-04-2024 Alcoholic beverage intake Lifetime non-drinker (finding) [facility] Start: 04-23-2023 End: 02-29-2024 History of Social function [facility] How often do you nee d to have someone help you when you read instructions, pamphlets, or other written material from your doctor or pharmacy [SILS] Never [facility] Within the last year , have you been afraid of your partner or ex-partner? No [facility] Do you belong to any clubs or organizations such as temple groups, unions, fraternal or athletic groups, or school groups? Yes [facility] Are you now , , , , never or living with a partner? [facility] How often to you hav e a drink containing alcohol? Never [facility] Do you feel stress - tense, restless, nervous, or anxious, or unable to sleep at night because your mind is troubled all the time - these days [OSQ] Not at all [facility] (I/We) worried wheth er (my/our) food would run out before (I/we) got money to buy more. Never true [facility] Start: 1940 Sex assigned at Not on file [facility] Do you feel stress - tense, restless, nervous, or anxious, or unable to sleep at night because your mind is troubled all the time - these days [OSQ] Only a little [facility] Medical Equipment Procedure Code Equipment Code Equipment Origin al Text Equipment Identifier Dates Start: 01-18-2013 Goals Date Patient Goal Desired Activity /State Functional Status Date Assessment Result Facility 05-11-2022 Functional status Patient at Baseline [facility] Work Phone: Mental Status Date Assessment Result Facility 05-11-2022 Cognitive function Cognitive Sta tus Patient at Baseline [facility] Work Phone: Clinical Notes 03-31-2022 to 08-13-2024 Telephone Encounter - LIZZ Venegas - 08/13/2024 8:43 AM ESTTelephone Encounter - LIZZ Venegas - 08/13/2024 8:43 AM ESTTelephone Encounter - KATELYNN WANG - 08/12/2024 11:56 AM EST Note Date & Type Note Facility 08-13-2024 Telephone encounter Note Acknowledged [facility] 08-13-2024 Miscellaneous Notes Acknowledged Pt Notified and is feeling better. Please reassure pt that while 294 is likely higher than what she is used to seeing, it is not dangerous. She can take an extra 2 units of her Lantus today. Make sure she has taken the Janumet dosage. Have her continue to drink plenty of water. Encourage protein rich foods today, limit simple sugars and carbs. If her glucose goes above 400 she should call the division road supervisor provider over the weekend or go to the ER. Pt states that her blood sugar is high. Its to 294 as of now. She states its been going up all morning. She's given herself her insulin as well as drank water. She like to know what else she could do. documented in this encounter [facility] 08-12-2024 Telephone encounter Note Pt Notified and is feeling better. [facility] 08-12-2024 Telephone encounter Note Please reassure pt that while 294 is likely higher than what she is used to seeing, it is not dangerous. She can take an extra 2 units of her Lantus today. Make sure she has taken the Janumet dosage. Have her continue to drink plenty of water. Encourage protein rich foods today, limit simple sugars and carbs. If her glucose goes above 400 she should call the division road supervisor provider over the weekend or go to the ER. [facility] 08-12-2024 Telephone encounter Note Pt states that her blood sugar is high. Its to 294 as of now. She states its been going up all morning. She's given herself her insulin as well as drank water. She like to know what else she could do. [facility] 08-08-2024 Note [place] [facility] Subjective Tere Hartmann is a 84 y.o. year old female patient being seen for Palpitations (Follow up Holter monitor.), Hypertension (Only taking clonidine in the evenings, for SPB > 170), and Bradycardia (S/p PPM, which was interrogated 3 weeks ago in the office. ) Patient Active Problem List Diagnosis Coronary artery disease involving [place] coronary artery of [place] heart Chronic systolic heart failure (CMS/HCC) Mixed hyperlipidemia Presence of drug coated stent in right coronary artery Diabetes mellitus (CMS/HCC) Benign hypertensive cardiomyopathy with heart failure ([facility]/HCC) Insomnia Lightheadedness Non-smoker Restless legs syndrome Abnormal gait Ataxia Benign essential hypertension Central vestibular vertigo Diabetic peripheral neuropathy ([facility]/HCC) Diabetic renal disease ([facility]/HCC) Diverticulitis Mass of left adrenal gland ([facility]/HCC) Ovarian failure Skin sensation disturbance Type 2 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 She states that overall she is doing well. She still has those episodes of palpitation which wakes her up about 2-hour after sleeping does not last for long time not associated with other symptoms. She had an event monitor which showed sinus rhythm with occasional atrial paced rhythm and rare PACs and PVCs with 1 nonsustained ventricular tachycardia but she did not report symptoms. Patient states that she has been doing well. She denies any chest discomfort at rest or with exertion. She denies exertional dyspnea, orthopnea or paroxysmal nocturnal dyspnea. She denies legs edema or discomfort on exertion. She reports lightheadedness when she stands up too quick She checks her blood pressure at home and usually it is in the 160-1 170s. She takes clonidine at night only if her systolic blood pressure is above 170 She reports drinking enough water and no caffeine ROS All systems were reviewed and they were negative except for the positive findings noted above in the history Past Medical History: Diagnosis Date Abnormal ECG Arrhythmia CHF (congestive heart failure) ([facility]/HCC) Coronary artery disease Diabetes mellitus ([facility]) Hyperlipidemia Hypertension Past Surgical History: Procedure Laterality Date APPENDECTOMY CARDIAC CATHETERIZATION 03/07/2022 CARDIAC CATHETERIZATION 04/21/2022 PCI CORONARY STENT PLACEMENT HYSTERECTOMY Family History Problem Relation Name Age of Onset Hypertension Mother Coronary artery disease Mother Coronary artery disease Father Hypertension Father Hypertension Sister Coronary artery disease Brother Social History Tobacco Use Smoking status: Never Smokeless tobacco: Never Substance Use Topics Alcohol use: Not Currently Drug use: Not Currently Allergies Allergies Allergen Reactions Sulfa (Sulfonamide Antibiotics) Swelling Entresto [Sacubitril-Valsartan] Other hypertension Empagliflozin Other Pt gets yeast infections when taking this medication Medications Current Outpatient Medications: aspirin 81 mg chewable tablet, Chew 1 tablet every day by oral route for 90 days., Disp: , Rfl: atorvastatin (Lipitor) 80 mg tablet, Take 1 tablet (80 mg) by mouth at bedtime., Disp: 90 tablet, Rfl: 3 carvedilol (Coreg) 12.5 mg tablet, Take 1 tablet (12.5 mg) by mouth with breakfast and with evening meal., Disp: 180 tablet, Rfl: 3 cloNIDine (Catapres) 0.1 mg tablet, Take 1 tablet (0.1 mg) by mouth two times daily. (Patient taking differently: Take 0.1 mg by mouth if needed for high blood pressure (SBP > 170).), Disp: 60 tablet, Rfl: 11 cyproheptadine (Periactin) 4 mg tablet, Take 2 mg by mouth at bedtime., Disp: , Rfl: Janumet XR 100-1,000 mg tablet, ER multiphase 24 hr, TAKE 1 TABLET BY MOUTH IN THE MORNING WITH A MEAL, Disp: , Rfl: Lantus Solostar U-100 Insulin 100 unit/mL (3 mL) pen, Inject 10 Units under the skin in the morning and at bedtime. 10 units in PM 15 units in AM, Disp: , Rfl: losartan (Cozaar) 50 mg tablet, Take 1 tablet (50 mg) by mouth two times daily., Disp: 180 tablet, Rfl: 3 sacubitril-valsartan (Entresto) 24-26 mg tablet, Take 1 tablet by mouth two times daily., Disp: 60 tablet, Rfl: 11 Objective Visit Vitals BP (!) 200/82 (BP Location: Left arm, Patient Position: Sitting) Pulse 60 Ht 1.702 m (5' 7 ) Wt 68.5 kg (151 lb) SpO2 98% BMI 23.65 kg/m??? OB Status Postmenopausal Smoking Status (more content not included)... [facility] 07-13-2024 Note [facility] Cardiology Clinic Note Chief Complaint: Patient here c/o elevated BP. Says she is awakened with palpitations sometimes. Denies chest pain and SOB. She's also getting lightheaded sometimes. HPI: Tere Hartmann is a 84 y.o. female history of hypertension, heart failure with reduced ejection fraction, dyslipidemia Here in routine follow-up Doing well; no new symptoms Update 06/15/2024: Doing well. No new symptoms. She has had longstanding orthostatic hypotension. She denies new symptoms. Update 07/13/2024 The patient states that I do not feel good . She cannot be more specific. It appears that her major concerns centered around fluctuating blood pressure readings. She clearly measures her blood pressure too many times during the day and night. The other major issue is palpitations that occur at night while she is supine in bed. She feels a fog . She wakes up, measures her blood pressure and finds it to be in the 180s. She admits that she has very poor sleep. She does not get to bed until 1030 or 11. She subsequently hardly sleeps per her description. She has spoken to her family physician who recommended Benadryl. She has not taken this. Pertinently, she has no exertional symptoms. She has no chest pain, worsening shortness of breath, she does not have significant palpitations during the day. She denies lightheadedness, dizziness, or syncope. She drinks a cup of coffee a day. She does not drink alcohol. Cardiology ROS: Review of Systems Cardiovascular: Positive for palpitations. Gastrointestinal: Positive for nausea. Neurological: Positive for light-headedness and vertigo. All other systems reviewed and are negative. Past Medical History She has a past medical history of CHF (congestive heart failure) ([facility]), Coronary artery disease, Diabetes mellitus ([facility]), and Hyperlipidemia. Surgical History She has a past surgical history that includes Cardiac catheterization (03/07/2022); Cardiac catheterization (04/21/2022); Appendectomy; Hysterectomy; and Coronary stent placement. Social History She reports that she has never smoked. She has never used smokeless tobacco. She reports that she does not currently use alcohol. She reports that she does not currently use drugs. Family History Family History Problem Relation Name Age of Onset Hypertension Mother Coronary artery disease Mother Coronary artery disease Father Hypertension Father Hypertension Sister Coronary artery disease Brother Allergies Sulfa (sulfonamide antibiotics) and Empagliflozin Medications Current Outpatient Medications: aspirin 81 mg chewable tablet, Chew 1 tablet every day by oral route for 90 days., Disp: , Rfl: atorvastatin (Lipitor) 80 mg tablet, Take 1 tablet (80 mg) by mouth at bedtime., Disp: 90 tablet, Rfl: 3 carvedilol (Coreg) 12.5 mg tablet, Take 1 tablet (12.5 mg) by mouth with breakfast and with evening meal., Disp: 180 tablet, Rfl: 3 cloNIDine (Catapres) 0.1 mg tablet, Take 1 tablet (0.1 mg) by mouth two times daily., Disp: 60 tablet, Rfl: 11 cyproheptadine (Periactin) 4 mg tablet, Take 2 mg by mouth at bedtime., Disp: , Rfl: Lantus Solostar U-100 Insulin 100 unit/mL (3 mL) pen, Inject 10 Units under the skin in the morning and at bedtime. 10 units in PM 15 units in AM, Disp: , Rfl: losartan (Cozaar) 50 mg tablet, Take 1 tablet (50 mg) by mouth two times daily., Disp: 180 tablet, Rfl: 3 sacubitril-valsartan (Entresto) 24-26 mg tablet, Take 1 tablet by mouth two times daily. (Patient not taking: Reported on 06/02/2024), Disp: 60 tablet, Rfl: 11 Last Recorded Vitals BP 168/72 (BP Location: Left arm, Patient Position: Sitting) Pulse 62 Ht 1.702 m (5' 7 ) Wt 68.9 kg (152 lb) SpO2 99% BMI 23.81 kg/m??? Physical Examination: GENERAL: alert and oriented [...] mid LAD has 100% chronic total occlusion ([facility]GE[employer]). The ramus coronary artery has a proximal 99% stenosis that was treated successfully with PCI with a Synergy 2.5 x 16 mm drug-eluting stent. The circumflex is patent. The RCA has proximal and mid diffuse 70% stenosis, and the right PDA has 80% stenosis. The RCA (more content not included)... [facility] 07-04-2024 History of Present illness Narrative Images from the original note were not included. HPI Hypertension Additional comments: Medication added clonidine losartan Last edited by Jessica Avila MA on 07/04/2024 7:48 AM. Subjective Patient ID: Tere Hartmann is a 84 y.o. female who presents for Hypertension (Medication added clonidine losartan). Pt is here for BP follow up Pt BP today was 131/72 pt took this in the morning BP right now 148/70 Hypertension This is a chronic problem. The current episode started more than 1 year ago. The problem is unchanged. There are no associated agents to hypertension. Risk factors for coronary artery disease include diabetes mellitus. Current Outpatient Medications on File Prior to Visit Medication Sig Dispense Refill aspirin 81 MG EC tablet Take 81 mg by mouth in the morning. atorvastatin (Lipitor) 80 MG tablet Take 1 tablet (80 mg) by mouth at bedtime 100 tablet 3 carvedilol (Coreg) 12.5 MG tablet Take 1 tablet (12.5 mg) by mouth in the morning and 1 tablet (12.5 mg) in the evening. Take with meals. 200 tablet 3 cloNIDine (Catapres) 0.1 MG tablet Take 1 tablet (0.1 mg) by mouth in the morning and 1 tablet (0.1 mg) before bedtime. cyproheptadine (Periactin) 4 MG tablet TAKE 1/2 TABLET AT BEDTIME 45 tablet 3 glucose blood (Accu-Chek Briana Plus) test strip 1 each in the morning and 1 each before bedtime. insulin glargine (Lantus SoloStar) 100 UNIT/ML pen Inject 25 Units under the skin in the morning. 27 mL 3 losartan (Cozaar) 50 MG tablet Take 1 tablet (50 mg) by mouth in the morning and 1 tablet (50 mg) before bedtime. 60 tablet 11 prednisoLONE acetate (Pred-Forte) 1 % ophthalmic suspension instill 1 DROP IN THE RIGHT EYE FOUR TIMES DAILY SITagliptin-metFORMIN ER (Janumet XR) 100-1000 MG per 24 hr tablet Take 1 tablet by mouth in the morning. Take with meals. 100 tablet 3 [DISCONTINUED] dorzolamide-timolol (Cosopt) 22.3-6.8 MG/ML ophthalmic solution Administer 1 drop into both eyes in the morning and 1 drop before bedtime. [DISCONTINUED] latanoprost (Xalatan) 0.005 % ophthalmic solution Administer 1 drop into both eyes at bedtime [DISCONTINUED] ofloxacin (Ocuflox) 0.3 % ophthalmic solution instill 1 DROP IN THE RIGHT EYE FOUR TIMES DAILY No current facility-administered medications on file prior to visit. I have reviewed and reconciled the history and medication list with the patient today. Allergies Allergen Reactions Sulfa Antibiotics Unknown and Swelling sore in mouth Iodine Shellfish Allergy vomitting, diarrhea Shellfish-Derived Products Unknown Social History Tobacco Use Smoking status: Never Smokeless tobacco: Never Vaping Use Vaping status: Never Used Substance Use Topics Alcohol use: Never Drug use: Never Family History Problem Relation Name Age of Onset Diabetes Mother Heart disease Mother Heart disease Father Uterine cancer Sibling Breast cancer Sibling Diabetes Sibling Heart disease Sibling Other (Other) Sibling 2 brothers & 2 sisters, . Past Medical History: Diagnosis Date CAD (coronary artery disease) ([facility]) CAD (coronary artery disease) ([facility]) Elevated Troponin (05/09/2022-05/11/2022) Chest pain 06/06/2022, 08/28/2022 CHF (congestive heart failure) ([facility]) Chronic systolic heart failure ([facility]) Coronary atherosclerosis ([facility]) Diabetes mellitus ([facility]) History of being hospitalized 09/04/2023 Bradycardia, URI, Metabolic Acidosis, Dehydration History of being hospitalized 05/28/2024 Hypertensive Emergency, CVA, CAD HLD (hyperlipidemia) ([facility]) Past Surgical History: Procedure Laterality Date ADENOIDECTOMY ANGIOGRAM 04/21/2022 PCI,RCA,PDA APPENDECTOMY 1963 CARDIAC CATHETERIZATION Right 03/07/2022 CARDIAC PACEMAKER PLACEMENT 09/07/2023 HYSTERECTOMY 1997 Visit Vitals BP 138/70 Pulse 60 Ht 5' 7 Wt 151 lb SpO2 97% BMI 23.65 kg/m Smoking Status Never BSA 1.8 m Review of Systems Objective Physical Exam Constitutional: General: She is not in acute distress. Appearance: Normal appearance. She is well-developed. HENT: Head: Normocephalic and atraumatic. Eyes: General: No scleral icterus. Conjunctiva/sclera: Conjunctivae normal. Cardiovascular: Rate and Rhythm: Normal rate and regular rhythm. Heart sounds: Normal heart sounds. No murmur heard. Pulmonary: Effort: Pulmonary effort is normal. No respiratory distress. Breath sounds: Normal breath sounds. No wheezing, rhonchi or rales. Abdominal: General: There is no distension. Palpations: Abdomen is soft. Tenderness: There is no abdominal tenderness. There is no right CVA tenderness or left CVA tenderness. Skin: General: Skin is warm and dry. Neurological: General: No focal deficit present. Mental Status: She is alert and oriented to person, place, and time. Psychiatric: Mood and Affect: Mood normal. Behavior: Behavior normal. Assessment/Plan Diagnoses and all orders for this visit: Benign essential hypertension (CMS/HCC) - Patient was seen for this problem last OV. Interventions discussed at that prior visit have improved this problem significantly. Please seen that office visit for details. Type 2 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 gangrene, with long-term current use of insulin (CMS/HCC) - Last A1C 06/23 with good control. Follow up in about 2 months (around 09/03/2024) for Routine F/U. documented in this encounter [facility] 06-15-2024 Note [facility] Cardiology Clinic Note Chief Complaint: Patient here for 2 week follow up hypertension and chronic systolic heart failure. Had labs 05/31/2024. Still dealing with lightheadedness. She does take cyproheptadine for vertigo. Denies chest pain, SOB, and palpitations. HPI: Tere Hartmann is a 84 y.o. female history of hypertension, heart failure with reduced ejection fraction, dyslipidemia Here in routine follow-up Doing well; no new symptoms Update 06/15/2024: Doing well. No new symptoms. She has had longstanding orthostatic hypotension. She denies new symptoms. Cardiology ROS: Review of Systems Neurological: Positive for light-headedness and vertigo. All [...] that she does not currently use alcohol. She reports that she does not currently use drugs. Family History Family History Problem Relation Name Age of Onset Hypertension Mother Coronary artery disease Mother Coronary artery disease Father Hypertension Father Hypertension Sister Coronary artery disease Brother Allergies Sulfa (sulfonamide antibiotics) and Empagliflozin Medications Current Outpatient Medications: aspirin 81 mg chewable tablet, Chew 1 tablet every day by oral route for 90 days., Disp: , Rfl: atorvastatin (Lipitor) 80 mg tablet, Take 1 tablet (80 mg) by mouth at bedtime., Disp: 90 tablet, Rfl: 3 carvedilol (Coreg) 12.5 mg tablet, Take 1 tablet (12.5 mg) by mouth with breakfast and with evening meal., Disp: 180 tablet, Rfl: 3 cloNIDine (Catapres) 0.1 mg tablet, Take 1 tablet (0.1 mg) by mouth two times daily., Disp: 60 tablet, Rfl: 11 cyproheptadine (Periactin) 4 mg tablet, Take 2 mg by mouth at bedtime., Disp: , Rfl: Lantus Solostar U-100 Insulin 100 unit/mL (3 mL) pen, Inject 10 Units under the skin in the morning and at bedtime. 10 units in PM 15 units in AM, Disp: , Rfl: losartan (Cozaar) 50 mg tablet, Take 1 tablet (50 mg) by mouth two times daily., Disp: 180 tablet, Rfl: 3 sacubitril-valsartan (Entresto) 24-26 mg tablet, Take 1 tablet by mouth two times daily. (Patient not taking: Reported on 06/02/2024), Disp: 60 tablet, Rfl: 11 Last Recorded Vitals BP 151/67 (BP Location: Left arm, Patient Position: Sitting) Pulse 66 Ht 1.702 m (5' 7 ) Wt 68.9 kg (152 lb) SpO2 99% BMI 23.81 kg/m??? Physical Examination: GENERAL: alert and oriented [...] mid LAD has 100% chronic total occlusion (DRILL [employer]GE[employer]). The ramus coronary artery has a proximal [...] right PDA disease. 8. Outpatient followup with [facility]. 9. Since the right heart catheterization showed very low filling pressures, I discontinued hydrochlorothiazide. Farxiga and Entresto both have diuretic affects, so she does not need a third medicine with diuretic effects. 04/21/2022: Final impression: 1. Successful PCI of the mid and proximal RCA with synergy 3.5 x 38 mm drug-eluting stent 2. Successful PCI of the proximal PDA with a Synergy 2.5 x 16 mm drug-eluting (more content not included)... [facility] 06-08-2024 History of Present illness Narrative Images from the original note were not included. Subjective Patient ID: Tere Hartmann is a 84 y.o. female who presents for hypertension. Tere is present today for follow up hypertension. She recently saw Dr. Butler on 06/01/24 for a hospital follow up and he started her on Clonidine PRN of systolic is greater than 170 and changed her Losartan to BID. She also had a follow up with her bank reconciliator on 06/02/24 and they changed her Clonidine to BID and stopped her Entresto and wanted her to follow up in 2 - 4 weeks with a BP log. She did not bring the log with her but she states it is running around 160's/70's-80's. Denies SOB, chest pain, blurry vision, headaches. This morning when she stood up she had to wait a few seconds before she could walk d/t she did feel a little unsteady, this happens off/on but usually in the mornings. She also states that for the past 6 months was having night sweats at night about 2 -3 hours after she layed down but now with the change in meds that has went away. Drinks 3-4 big glasses of water a day. Checks her BP in the morning and if she wakes up at night. States she staggers when she takes her medication to avoid feeling too unsteady. Takes her BP when she eats breakfast, takes her second BP med at that time. Here with her son. Current Outpatient Medications on File Prior to Visit Medication Sig Dispense Refill aspirin 81 MG EC tablet Take 81 mg by mouth in the morning. atorvastatin (Lipitor) 80 MG tablet Take 1 tablet (80 mg) by mouth at bedtime 100 tablet 3 carvedilol (Coreg) 12.5 MG tablet Take 1 tablet (12.5 mg) by mouth in the morning and 1 tablet (12.5 mg) in the evening. Take with meals. 200 tablet 3 cyproheptadine (Periactin) 4 MG tablet TAKE 1/2 TABLET AT BEDTIME 45 tablet 3 dorzolamide-timolol (Cosopt) 22.3-6.8 MG/ML ophthalmic solution Administer 1 drop into both eyes in the morning and 1 drop before bedtime. glucose blood (Accu-Chek Briana Plus) test strip 1 each in the morning and 1 each before bedtime. insulin glargine (Lantus SoloStar) 100 UNIT/ML pen Inject 25 Units under the skin in the morning. 27 mL 3 latanoprost (Xalatan) 0.005 % ophthalmic solution Administer 1 drop into both eyes at bedtime losartan (Cozaar) 50 MG tablet Take 1 tablet (50 mg) by mouth in the morning and 1 tablet (50 mg) before bedtime. 60 tablet 11 ofloxacin (Ocuflox) 0.3 % ophthalmic solution instill 1 DROP IN THE RIGHT EYE FOUR TIMES DAILY prednisoLONE acetate (Pred-Forte) 1 % ophthalmic suspension instill 1 DROP IN THE RIGHT EYE FOUR TIMES DAILY SITagliptin-metFORMIN ER (Janumet XR) 100-1000 MG per 24 hr tablet Take 1 tablet by mouth in the morning. Take with meals. 100 tablet 3 [DISCONTINUED] atorvastatin (Lipitor) 80 MG tablet Take 1 tablet (80 mg) by mouth at bedtime 100 tablet 3 [DISCONTINUED] carvedilol (Coreg) 12.5 MG tablet Take 1 tablet (12.5 mg) by mouth in the morning and 1 tablet (12.5 mg) in the evening. Take with meals. 200 tablet 3 [DISCONTINUED] cloNIDine (Catapres) 0.1 MG tablet Take 1 tablet (0.1 mg) by mouth every 8 (eight) hours if needed for high blood pressure (Systolic (Top number) blood pressure > 170) (Patient taking differently: Take 0.1 mg by mouth in the morning and 0.1 mg before bedtime.) 30 tablet 11 [DISCONTINUED] sacubitril-valsartan (Entresto) 24-26 MG tablet Take 1 tablet by mouth in the morning and 1 tablet before bedtime. No current facility-administered medications on file prior to visit. I have reviewed and reconciled the history and medication list with the patient today. Allergies Allergen Reactions Sulfa Antibiotics Unknown and Swelling sore in mouth Iodine Shellfish Allergy vomitting, diarrhea Shellfish-Derived Products Unknown Social History Tobacco Use Smoking status: Never Smokeless tobacco: Never Vaping Use Vaping status: Never Used Substance Use Topics Alcohol use: Never Drug use: Never Family History Problem Relation Name Age of Onset Diabetes Mother Heart disease Mother Heart disease Father Uterine cancer Sibling Breast cancer Sibling Diabetes Sibling Heart disease Sibling Other (Other) Sibling 2 brothers & 2 sisters, . Past Medical History: Diagnosis Date CAD (coronary artery disease) ([facility]) CAD (coronary artery disease) ([facility]) Elevated Troponin (05/09/2022-05/11/2022) Chest pain 06/06/2022, 08/28/2022 CHF (congestive heart failure) ([facility]) Chronic systolic heart failure ([facility]) Coronary atherosclerosis ([facility]) Diabetes mellitus ([facility]) History of being hospitalized 09/04/2023 Bradycardia, URI, Metabolic Acidosis, Dehydration History of being hospitalized 05/28/2024 Hypertensive Emergency, CVA, CAD HLD (hyperlipidemia) ([facility]) Past Surgical History: Procedure Laterality Date ADENOIDECTOMY ANGIOGRAM 04/21/2022 PCI,RCA,PDA APPENDECTOMY 1963 CARDIAC CATHETERIZATION Right 03/07/2022 CARDIAC PACEMAKER PLACEMENT 09/07/2023 HYSTERECTOMY 1997 Visit Vitals BP 148/82 Pulse 60 Resp 16 Ht 5' 7 Wt 152 lb SpO2 99% BMI 23.81 kg/m Smoking Status Never BSA 1.8 m Review of Systems Constitutional: Negative for chills, fatigue and fever. Respiratory: Negative for cough, shortness of breath and wheezing. Cardiovascular: Negative for chest pain, palpitations and leg swelling. Gastrointestinal: Negative for abdominal pain, constipation, diarrhea, nausea and vomiting. Musculoskeletal: Positive for gait problem (Occasionally unsteady). Skin: Negative for rash. Objective Physical Exam Constitutional: General: She is not in acute distress. Appearance: Normal appearance. She is well-developed. HENT: Head: Normocephalic and atraumatic. Eyes: General: No scleral icterus. Conjunctiva/sclera: Conjunctivae normal. Cardiovascular: Rate and Rhythm: Normal rate and regular rhythm. Heart sounds: Normal heart sounds. No murmur heard. Pulmonary: Effort: Pulmonary effort is normal. No respiratory distress. Breath sounds: Normal breath sounds. No wheezing, rhonchi or rales. Skin: General: Skin is warm and dry. Neurological: General: No focal deficit present. Mental Status: She is alert and oriented to person, place, and time. Psychiatric: Mood and Affect: Mood normal. Behavior: Behavior normal. Assessment/Plan Diagnoses and all orders for this visit: Benign essential hypertension (CMS/HCC) - cloNIDine (Catapres) 0.1 MG tablet; Take 1 tablet (0.1 mg) by mouth in the morning and 1 tablet (0.1 mg) before bedtime. BP appears to be stabilizing. It is similar to what it was at her Cardiology appointment. Encouraged her to try checking her BP at noon, she would have all three of her morning medications in her system by that point and it should be a more accurate reading. Sees Cardiology next on 06/15/2024. Keep appt as scheduled with Dr. Butler on 07/04/2024. Bring BP log, and BP cuff to next appt so we can make sure she is getting accurate readings. Encounter for immunization - Influenza, high-dose seasonal, quadrivalent, PF ([id number]) (Fluzone High Dose [place] 0.7mL dose) Provided pt with a flu shot today, she tolerated this well. Follow up for Appointment As Scheduled. documented in this encounter [facility] 06-07-2024 Telephone encounter Note Coreg sent to [facility]. [facility] 06-07-2024 Miscellaneous Notes Coreg sent to [facility]. documented in this encounter [facility] 06-02-2024 Note [facility] -currently s he remains euvolemic and without exacerbation. Recovered ejection fraction States her primary care stopped Farxiga in light he was adjusting her diabetic medications and added Janumet. Continue GDMT-as for now I will leave her on losartan and continue Coreg, Lipitor Diuretic therapy-will reevaluate at next visit if she needs diuretics Monitor daily weights, I&O, fluid restriction 1.5-2L/day, renal function and electrolytes- please maintain K+>4 and Mg > 2 [facility] 06-02-2024 Note Lipid abnormalities are stable continue Lipitor [facility] 06-02-2024 Note Hypertension is fluc tuating after review of her blood pressure log from home. Not completely sure why they stopped her Entresto and switch her to losartan, she does admit Entresto is quite expensive and she gets samples most of the time. Therefore I will leave her on losartan 50 mg twice daily, continue carvedilol 12.5 mg p.o. twice daily and will change clonidine 0.1 to twice daily from as needed. Discussed with patient to please do not take her blood pressure every 15 minutes at home, and that her medication will take at least 45 minutes to an hour after taking to start working. Renal function on the first was normal and potassium stable Return to clinic in 2 to 4 weeks with blood pressure log for any further adjustments and to call office for any concerns [facility] 06-02-2024 Note [facility] CARDIOLOGY PROGR ESS NOTE HPI: Tere Hartmann is a 84 y.o. female here for hospital F/U HPI pleasant 84-year-old female presents today with her daughter for hospital follow-up. She was recently admitted to the [facility] end of May for uncontrolled hypertension, and vision changes and possible TIA. While inpatient they stopped her Farxiga and Entresto and started losartan 50 mg twice daily. She return to emergency room 1 day after discharge for elevated blood pressure again during the night of which they started her on clonidine 0.1 mg as needed-which she took 2 doses of clonidine last night for blood pressures 160s to 180s systolic. Pt denies chest pain, sob, and palpatations. She says she is not dizzy but she can feel something is not right. Pt says her sugar was high at 313-but this was after eating breakfast. Discharge summary [facility] 05/30/24 05/31/24 ED report Medical Decision Making MDM Narrative Medical decision making narrative: patient discharged home yesterday. returns tonight complaining of HTN. labs unremarkable including normal troponin. BP responded nicely to catapres. Patient was asymptomatic. No chest pain, dyspnea or headache. discharged to follow up with her family doctor Review of Systems Constitutional: Positive for chills. Neurological: Positive for light-headedness and vertigo. All other systems reviewed and are negative. Visit Vitals BP 144/73 Pulse 62 Ht 1.702 m (5' 7 ) Wt 67.1 kg (148 lb) SpO2 94% BMI 23.18 kg/m??? OB Status Postmenopausal Smoking Status Never BSA 1.78 m??? Allergies Allergen Reactions Sulfa (Sulfonamide Antibiotics) Swelling Empagliflozin Pt gets yeast infections when taking this medication Medications: Current Outpatient Medications on File Prior to Visit Medication Sig Dispense Refill aspirin 81 mg chewable tablet Chew 1 tablet every day by oral route for 90 days. Lantus Solostar U-100 Insulin 100 unit/mL (3 mL) pen Inject 10 Units under the skin in the morning and at bedtime. 10 units in PM 15 units in AM [DISCONTINUED] atorvastatin (Lipitor) 80 mg tablet Take 80 mg by mouth at bedtime. [DISCONTINUED] carvedilol (Coreg) 12.5 mg tablet Take 1 tablet (12.5 mg) by mouth with breakfast and with evening meal. 180 tablet 3 [DISCONTINUED] cloNIDine (Catapres) 0.1 mg tablet Take 0.1 mg by mouth every 8 (eight) hours if needed. [DISCONTINUED] losartan (Cozaar) 50 mg tablet Take 50 mg by mouth twice a day. cyproheptadine (Periactin) 4 mg tablet Take 2 mg by mouth at bedtime. sacubitril-valsartan (Entresto) 24-26 mg tablet Take 1 tablet by mouth two times daily. (Patient not taking: Reported on 06/02/2024) 60 tablet 11 [DISCONTINUED] dapagliflozin (Farxiga) 10 mg Take 1 tablet (10 mg) by mouth once daily as directed. (Patient not taking: Reported on 06/02/2024) 30 tablet 3 No current facility-administered medications on file prior [...] No edema. Left lower leg: No edema. Skin: General: Skin is warm and dry. Capillary Refill: Capillary refill takes less than 2 seconds. Neurological: General: No focal deficit present. Mental Status: She is alert and oriented to person, place, and time. Psychiatric: Mood and Affect: Mood normal. Behavior: Behavior normal. Thought Content: Thought content normal. Judgment: Judgment normal. Labs: 05/31/24 CBC normal NA 132- low, K+ 3.9 normal BUN 16, CR 0.96, GFR > 60- normal Last lab values have been reviewed CV Testing:-Reviewed with patient and daughter 09/08/23 TTE Left Ventricle: The left ventricle is normal [...] to lack of measurable tricuspid regurgitation. Left A (more content not included)... [facility] 06-02-2024 Note Pt is here for a fol low up after being in [facility]. Pt denies chest pain, sob, and palpatations. She says she is not dizzy but she can feel something is not right. Pt says her sugar was high at 313. Review of Systems Constitutional: Positive for chills. Neurological: Positive for light-headedness and vertigo. All other systems reviewed and are negative. [facility] 06-01-2024 History of Present illness Narrative Images from the original note were not included. Subjective Patient ID: Tere Hartmann is a 84 y.o. female who presents for No chief complaint on file.. Subjective Tere Hartmann is an 82 y.o. female who presents for follow up of diabetes. Current symptoms include: none Patient denies foot ulcerations, polydipsia, and polyuria. Evaluation to date has included: fasting blood sugar, fasting lipid panel, and hemoglobin A1C. Home sugars: BGs range between 95 and 135 Tere Hartmann is a 82 y.o. female who presents for follow-up of congestive heart failure. She denies chest pain, claudication, near-syncope, paroxysmal nocturnal dyspnea, and syncope. She states she is compliant all of the time with her medications. Flowsheet Row Patient Outreach from 05/31/2024 in [facility] with [employer], [employer] Hospital Information ED, Hospital or Prison Facility Discharge? Hospital Patient has been contacted within two business days of discharge Yes Have two attempts been made to contact the patient within two business days of being discharged? Yes Diagnosis Hypertensive emergency, suspected cerebrovascular accident, CAD Discharge Date 05/29/24 Discharged To: Home Setting Discharge Hospital [facility] Engagement Call Start Time 1409 Admission Date 05/28/24 Medications Discharge medications reviewed and reconciled from hospital? Yes Is the patient having any side effects they believe may be caused by any medication additions or changes? No Does the patient have all medications ordered at discharge? Yes Prescription Comments She states they started her on Losartan 50mg 1 PO QD. Is the patient taking all medications as directed (includes completed medication regime)? Yes Appointments Does the patient have a primary care provider? Yes Has the patient kept scheduled appointments due by today? Yes Self Management Patient Teaching Does the patient have access to their discharge instructions? Yes What is the patient's perception of their health status since discharge? Improving Is the patient/caregiver able to teach back the hierarchy of who to call/visit for symptoms/problems? PCP, Specialist, Home Health nurse, Urgent Care, ED, 911 Yes Wrap Up Is the patient/caregiver familiar with Advance Care Planning? Yes Would the patient like more information on Advance Care Planning? No Call End Time 1421 Pt has appt with cardiology today Diabetes Pertinent negatives for diabetes include no chest pain and no fatigue. Med Refill Pertinent negatives include no chest pain or fatigue. Hypertension Pertinent negatives include no chest pain, palpitations or shortness of breath. Current Outpatient Medications on File Prior to Visit Medication Sig Dispense Refill aspirin 81 MG EC tablet Take 81 mg by mouth in the morning. atorvastatin (Lipitor) 80 MG tablet Take 1 tablet (80 mg) by mouth at bedtime 100 tablet 3 carvedilol (Coreg) 12.5 MG tablet Take 1 tablet (12.5 mg) by mouth in the morning and 1 tablet (12.5 mg) in the evening. Take with meals. 200 tablet 3 cyproheptadine (Periactin) 4 MG tablet TAKE 1/2 TABLET AT BEDTIME 45 tablet 3 dorzolamide-timolol (Cosopt) 22.3-6.8 MG/ML ophthalmic solution Administer 1 drop into both eyes in the morning and 1 drop before bedtime. glucose blood (Accu-Chek Briana Plus) test strip 1 each in the morning and 1 each before bedtime. insulin glargine (Lantus SoloStar) 100 UNIT/ML pen Inject 25 Units under the skin in the morning. 27 mL 3 latanoprost (Xalatan) 0.005 % ophthalmic solution Administer 1 drop into both eyes at bedtime ofloxacin (Ocuflox) 0.3 % ophthalmic solution instill 1 DROP IN THE RIGHT EYE FOUR TIMES DAILY prednisoLONE acetate (Pred-Forte) 1 % ophthalmic suspension instill 1 DROP IN THE RIGHT EYE FOUR TIMES DAILY sacubitril-valsartan (Entresto) 24-26 MG tablet Take 1 tablet by mouth in the morning and 1 tablet before bedtime. SITagliptin-metFORMIN ER (Janumet XR) 100-1000 MG per 24 hr tablet Take 1 tablet by mouth in the morning. Take with meals. 100 tablet 3 [DISCONTINUED] losartan (Cozaar) 50 MG tablet Take 50 mg by mouth Daily No current facility-administered medications on file prior to visit. I have reviewed and reconciled the history and medication list with the patient today. Allergies Allergen Reactions Sulfa Antibiotics Unknown and Swelling sore in mouth Iodine Shellfish Allergy vomitting, diarrhea Shellfish-Derived Products Unknown Social History Tobacco Use Smoking status: Never Smokeless tobacco: Never Vaping Use Vaping status: Never Used Substance Use Topics Alcohol use: Never Drug use: Never Family History Problem Relation Name Age of Onset Diabetes Mother Heart disease Mother Heart disease Father Uterine cancer Sibling Breast cancer Sibling Diabetes Sibling Heart disease Sibling Other (Other) Sibling 2 brothers & 2 sisters, . Past Medical History: Diagnosis Date CAD (coronary artery disease) ([facility]) CAD (coronary artery disease) ([facility]) Elevated Troponin (05/09/2022-05/11/2022) Chest pain 06/06/2022, 08/28/2022 CHF (congestive heart failure) ([facility]) Chronic systolic heart failure ([facility]) Coronary atherosclerosis ([facility]) Diabetes mellitus ([facility]) History of being hospitalized 09/04/2023 Bradycardia, URI, Metabolic Acidosis, Dehydration HLD (hyperlipidemia) ([facility]) Past Surgical History: Procedure Laterality Date ADENOIDECTOMY ANGIOGRAM 04/21/2022 PCI,RCA,PDA APPENDECTOMY 1963 CARDIAC CATHETERIZATION Right 03/07/2022 CARDIAC PACEMAKER PLACEMENT 09/07/2023 HYSTERECTOMY 1997 Visit Vitals BP (!) 146/94 Pulse 65 Ht 5' 7 Wt 151 lb SpO2 100% BMI 23.65 kg/m Smoking Status Never BSA 1.8 m Review of Systems Constitutional: Negative for fatigue. Respiratory: Negative for shortness of breath. Cardiovascular: Negative for chest pain and palpitations. Objective Physical Exam Constitutional: General: She is not in acute distress. Appearance: Normal appearance. She is well-developed. HENT: Head: Normocephalic and atraumatic. Eyes: General: No scleral icterus. Conjunctiva/sclera: Conjunctivae normal. Cardiovascular: Rate and Rhythm: Normal rate and regular rhythm. Heart sounds: Normal heart sounds. No murmur heard. Pulmonary: Effort: Pulmonary effort is normal. No respiratory distress. Breath sounds: Normal breath sounds. No wheezing, rhonchi or rales. Abdominal: General: There is no distension. Palpations: Abdomen is soft. Tenderness: There is no abdominal tenderness. There is no right CVA tenderness or left CVA tenderness. Skin: General: Skin is warm and dry. Neurological: General: No focal deficit present. Mental Status: She is alert and oriented to person, place, and time. Psychiatric: Mood and Affect: Mood normal. Behavior: Behavior normal. Office Visit on 06/01/2024 Component Date Value Ref Range Status Hemoglobin A1C 06/01/2024 6.8 Final Office Visit on 05/05/2024 Component Date Value Ref Range Status Color, UA 05/05/2024 Yellow Final Clarity, UA 05/05/2024 Cloudy Final Glucose, UA 05/05/2024 Negative Negative - 2000(110) ++++ mg/dL Final Bilirubin, UA 05/05/2024 Negative Negative - 4(70) +++ mg/dL Final Ketones, UA 05/05/2024 Negative Negative - 160(16) ++++ mg/dL Final Spec Grav, UA 05/05/2024 1.000 1 - 1.03 Final Blood, UA 05/05/2024 Positive Negative - 50 Ky/mcL Final pH, UA 05/05/2024 5.0 5 - 9 Final Protein, UA 05/05/2024 Negative Negative - 2000(20) ++++ mg/dL Final Urobilinogen, UA 05/05/2024 0.2 0.2 - 12 mg/dL Final Leukocytes, UA 05/05/2024 Positive Negative - 500+++ Melinda/mcL Final Nitrite, UA 05/05/2024 Negative Negative - Positive Final ACINETOBACTER BAUMANII 05/05/2024 0.000 19.961 - 24.689 ppm Final ACINETOBACTER BAUMANII 05/05/2024 Not Detected 19.961 - 24.689 ppm Final CITROBACTER FREUNDII 05/05/2024 0.000 23.000 - 31.881 ppm Final CITROBACTER FREUNDII 05/05/2024 Not Detected 23.000 - 31.881 ppm Final ENTEROBACTER AEROGENES, CLOACAE 05/05/2024 0.000 23.000 - 31.535 ppm Final ENTEROBACTER AEROGENES, CLOACAE 05/05/2024 Not Detected 23.000 - 31.535 ppm Final ENTEROCOCCUS FAECALIS, FAECIUM 05/05/2024 0.000 26.000 - 31.575 ppm Final ENTEROCOCCUS FAECALIS, FAECIUM 05/05/2024 Not Detected 26.000 - 31.575 ppm Final ESCHERICHIA COLI 05/05/2024 21.415 (A) 23.000 - 28.500 ppm Final ESCHERICHIA COLI 05/05/2024 Detected (A) 23.000 - 28.500 ppm Final KLEBSIELLA PNEUMONIAE, OXYTOCA 05/05/2024 0.000 23.000 - 30.500 ppm Final KLEBSIELLA PNEUMONIAE, OXYTOCA 05/05/2024 Not Detected 23.000 - 30.500 ppm Final MORGANELLA MORGANII 05/05/2024 0.000 19.961 - 24.689 ppm Final MORGANELLA MORGANII 05/05/2024 Not Detected 19.961 - 24.689 ppm Final PROTEUS MIRABILIS, VULGARIS 05/05/2024 0.000 23.000 - 28.500 ppm Final PROTEUS MIRABILIS, VULGARIS 05/05/2024 Not Detected 23.000 - 28.500 ppm Final PSEUDOMONAS AERUGINOSA 05/05/2024 0.000 23.000 - 28.500 ppm Final PSEUDOMONAS AERUGINOSA 05/05/2024 Not Detected 23.000 - 28.500 ppm Final STAPHYLOCOCCUS AUREUS 05/05/2024 0.000 26.000 - 30.902 ppm Final STAPHYLOCOCCUS AUREUS 05/05/2024 Not Detected 26.000 - 30.902 ppm Final STREPTOCOCCUS AGALACTIAE (GROUP B * 05/05/2024 0.000 26.000 - 32.222 ppm Final STREPTOCOCCUS AGALACTIAE (GROUP B * 05/05/2024 Not Detected 26.000 - 32.222 ppm Final JP ALBICANS, PARAPSILOSIS, TR* 05/05/2024 0.000 19.961 - 30.770 ppm Final JP ALBICANS, PARAPSILOSIS, TR* 05/05/2024 Not Detected 19.961 - 30.770 ppm Final JP GLABRATA 05/05/2024 0.000 23.000 - 32.138 ppm Final JP GLABRATA 05/05/2024 Not Detected 23.000 - 32.138 ppm Final JP KRUSEI 05/05/2024 0.000 23.000 - 32.271 ppm Final JP KRUSEI 05/05/2024 Not Detected 23.000 - 32.271 ppm Final SERRATIA MARCESCENS 05/05/2024 0.000 23.000 - 31.204 ppm Final SERRATIA MARCESCENS 05/05/2024 Not Detected 23.000 - 31.204 ppm Final STREPTOCOCCUS PYOGENES (GROUP A ST* 05/05/2024 0.000 19.961 - 24.689 ppm Final STREPTOCOCCUS PYOGENES (GROUP A ST* 05/05/2024 Not Detected 19.961 - 24.689 ppm Final STAPHYLOCOCCUS EPIDERMIDIS, HAEMOL* 05/05/2024 0.000 19.961 - 24.689 ppm Final STAPHYLOCOCCUS EPIDERMIDIS, HAEMOL* 05/05/2024 Not Detected 19.961 - 24.689 ppm Final STAPHYLOCOCCUS EPIDERMIDIS, HAEMOL* 05/05/2024 0.000 19.961 - 24.689 ppm Final STAPHYLOCOCCUS EPIDERMIDIS, HAEMOL* 05/05/2024 Not Detected 19.961 - 24.689 ppm Final Office Visit on 06/01/2024 Component Date Value Ref Range Status Hemoglobin A1C 06/01/2024 6.8 Final Office Visit on 05/05/2024 Component Date Value Ref Range Status Color, UA 05/05/2024 Yellow Final Clarity, UA 05/05/2024 Cloudy Final Glucose, UA 05/05/2024 Negative Negative - 1999(110) ++++ mg/dL Final Bilirubin, UA 05/05/2024 Negative Negative - 4(70) +++ mg/dL Final Ketones, UA 05/05/2024 Negative Negative - 160(16) ++++ mg/dL Final Spec Grav, UA 05/05/2024 1.000 1 - 1.03 Final Blood, UA 05/05/2024 Positive Negative - 50 Ky/mcL Final pH, UA 05/05/2024 5.0 5 - 9 Final Protein, UA 05/05/2024 Negative Negative - 1999(20) ++++ mg/dL Final Urobilinogen, UA 05/05/2024 0.2 0.2 - 12 mg/dL Final Leukocytes, UA 05/05/2024 Positive Negative - 500+++ Melinda/mcL Final Nitrite, UA 05/05/2024 Negative Negative - Positive Final ACINETOBACTER BAUMANII 05/05/2024 0.000 19.961 - 24.689 ppm Final ACINETOBACTER BAUMANII 05/05/2024 Not Detected 19.961 - 24.689 ppm Final CITROBACTER FREUNDII 05/05/2024 0.000 23.000 - 31.881 ppm Final CITROBACTER FREUNDII 05/05/2024 Not Detected 23.000 - 31.881 ppm Final ENTEROBACTER AEROGENES, CLOACAE 05/05/2024 0.000 23.000 - 31.535 ppm Final ENTEROBACTER AEROGENES, CLOACAE 05/05/2024 Not Detected 23.000 - 31.535 ppm Final ENTEROCOCCUS FAECALIS, FAECIUM 05/05/2024 0.000 26.000 - 31.575 ppm Final ENTEROCOCCUS FAECALIS, FAECIUM 05/05/2024 Not Detected 26.000 - 31.575 ppm Final ESCHERICHIA COLI 05/05/2024 21.415 (A) 23.000 - 28.500 ppm Final ESCHERICHIA COLI 05/05/2024 Detected (A) 23.000 - 28.500 ppm Final KLEBSIELLA PNEUMONIAE, OXYTOCA 05/05/2024 0.000 23.000 - 30.500 ppm Final KLEBSIELLA PNEUMONIAE, OXYTOCA 05/05/2024 Not Detected 23.000 - 30.500 ppm Final MORGANELLA MORGANII 05/05/2024 0.000 19.961 - 24.689 ppm Final MORGANELLA MORGANII 05/05/2024 Not Detected 19.961 - 24.689 ppm Final PROTEUS MIRABILIS, VULGARIS 05/05/2024 0.000 23.000 - 28.500 ppm Final PROTEUS MIRABILIS, VULGARIS 05/05/2024 Not Detected 23.000 - 28.500 ppm Final PSEUDOMONAS AERUGINOSA 05/05/2024 0.000 23.000 - 28.500 ppm Final PSEUDOMONAS AERUGINOSA 05/05/2024 Not Detected 23.000 - 28.500 ppm Final STAPHYLOCOCCUS AUREUS 05/05/2024 0.000 26.000 - 30.902 ppm Final STAPHYLOCOCCUS AUREUS 05/05/2024 Not Detected 26.000 - 30.902 ppm Final STREPTOCOCCUS AGALACTIAE (GROUP B * 05/05/2024 0.000 26.000 - 32.222 ppm Final STREPTOCOCCUS AGALACTIAE (GROUP B * 05/05/2024 Not Detected 26.000 - 32.222 ppm Final JP ALBICANS, PARAPSILOSIS, TR* 05/05/2024 0.000 19.961 - 30.770 ppm Final JP ALBICANS, PARAPSILOSIS, TR* 05/05/2024 Not Detected 19.961 - 30.770 ppm Final JP GLABRATA 05/05/2024 0.000 23.000 - 32.138 ppm Final JP GLABRATA 05/05/2024 Not Detected 23.000 - 32.138 ppm Final JP KRUSEI 05/05/2024 0.000 23.000 - 32.271 ppm Final JP KRUSEI 05/05/2024 Not Detected 23.000 - 32.271 ppm Final SERRATIA MARCESCENS 05/05/2024 0.000 23.000 - 31.204 ppm Final SERRATIA MARCESCENS 05/05/2024 Not Detected 23.000 - 31.204 ppm Final STREPTOCOCCUS PYOGENES (GROUP A ST* 05/05/2024 0.000 19.961 - 24.689 ppm Final STREPTOCOCCUS PYOGENES (GROUP A ST* 05/05/2024 Not Detected 19.961 - 24.689 ppm Final STAPHYLOCOCCUS EPIDERMIDIS, HAEMOL* 05/05/2024 0.000 19.961 - 24.689 ppm Final STAPHYLOCOCCUS EPIDERMIDIS, HAEMOL* 05/05/2024 Not Detected 19.961 - 24.689 ppm Final STAPHYLOCOCCUS EPIDERMIDIS, HAEMOL* 05/05/2024 0.000 19.961 - 24.689 ppm Final STAPHYLOCOCCUS EPIDERMIDIS, HAEMOL* 05/05/2024 Not Detected 19.961 - 24.689 ppm Final Assessment/Plan Diagnoses and all orders for this visit: TIA (transient ischemic attack) - The patient was seen today in follow up of recent hospital stay. All available hospital records were reviewed and discussed with the patient. Hospital discharge meds were reviewed. Any changes are noted above. - Head CT and CTA were essentially normal, no cause found. Possibly related to uncontrolled BP or embolic (cardiac?) Has follow up with Cardiology tomorrow. BP med changes as below. Type 2 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 gangrene, with long-term current use of insulin ([facility]) - POCT Glycated hemoglobin, total Benign essential hypertension ([facility]) - losartan (Cozaar) 50 MG tablet; Take 1 tablet (50 mg) by mouth in the morning and 1 tablet (50 mg) before bedtime. (Was every day from hospital discharge) - cloNIDine (Catapres) 0.1 MG tablet; Take 1 tablet (0.1 mg) by mouth every 8 (eight) hours if needed for high blood pressure (Systolic (Top number) blood pressure > 170) Follow up in about 4 weeks (around 06/29/2024) for F/U med changes. documented in this encounter [facility] 05-05-2024 History of Present illness Narrative Ua completed documented in this encounter [facility] 04-26-2024 Telephone encounter Note Updated Rx sent. [facility] 04-26-2024 Miscellaneous Notes Updated Rx sent. Received fax from [facility] pharmacy for clarification on her Lantus Solostar directions. Called pt to see how she takes it and she states that since Dr. Butler took her off the Jardiance she is taking 25 units in the morning only. I filled out the form and faxed back to pharmacy and sent to Beverly to send in new script to [facility]. Also states she never received ATB or pyridium form o/v on 04/19/24, sent that to DM for pt. documented in this encounter [facility] 04-26-2024 Telephone encounter Note Received fax from [facility] pharmacy for clarification on her Lantus Solostar directions. Called pt to see how she takes it and she states that since Dr. Butler took her off the Jardiance she is taking 25 units in the morning only. I filled out the form and faxed back to pharmacy and sent to Beverly to send in new script to [facility]. Also states she never received ATB or pyridium form o/v on 04/19/24, sent that to DM for pt. [facility] 04-19-2024 History of Present illness Narrative Images from the original note were not included. HPI Med Refill Additional comments: Lantus solostar Last edited by More Barcenas LPN on 04/19/2024 2:26 PM. Subjective Patient ID: Tere Hartmann is a 84 y.o. female who presents for UTI symptoms. Tushar is present today for follow up UTI. She was seen on 04/07/24 Dx. Acute cystitis without hematuria, culture came back as ecoli, rx'd Cipro 500 mg for BID for 10 days. She did finish her ATB last night and while she was on the ATB it helped her symptoms a little but still had the frequency and burning. She feels ever since her diabetic meds was have been changed, she has been having this issue. But on this med her A1C is more controlled. Current Outpatient Medications on File Prior to Visit Medication Sig Dispense Refill aspirin 81 MG EC tablet Take 81 mg by mouth in the morning. atorvastatin (Lipitor) 80 MG tablet Take 1 tablet (80 mg) by mouth at bedtime 100 tablet 3 carvedilol (Coreg) 12.5 MG tablet Take 1 tablet (12.5 mg) by mouth in the morning and 1 tablet (12.5 mg) in the evening. Take with meals. 200 tablet 3 cyproheptadine (Periactin) 4 MG tablet TAKE 1/2 TABLET AT BEDTIME 45 tablet 3 dorzolamide-timolol (Cosopt) 22.3-6.8 MG/ML ophthalmic solution Administer 1 drop into both eyes in the morning and 1 drop before bedtime. glucose blood (Accu-Chek Briana Plus) test strip 1 each in the morning and 1 each before bedtime. latanoprost (Xalatan) 0.005 % ophthalmic solution Administer 1 drop into both eyes at bedtime ofloxacin (Ocuflox) 0.3 % ophthalmic solution instill 1 DROP IN THE RIGHT EYE FOUR TIMES DAILY prednisoLONE acetate (Pred-Forte) 1 % ophthalmic suspension instill 1 DROP IN THE RIGHT EYE FOUR TIMES DAILY sacubitril-valsartan (Entresto) 24-26 MG tablet Take 1 tablet by mouth in the morning and 1 tablet before bedtime. SITagliptin-metFORMIN ER (Janumet XR) 100-1000 MG per 24 hr tablet Take 1 tablet by mouth in the morning. Take with meals. 100 tablet 3 [DISCONTINUED] ciprofloxacin (Cipro) 500 MG tablet Take 1 tablet (500 mg) by mouth in the morning and 1 tablet (500 mg) before bedtime. Do all this for 10 days. 20 tablet 0 [DISCONTINUED] empagliflozin (Jardiance) 10 MG Take 1 tablet (10 mg) by mouth Daily 30 tablet 11 [DISCONTINUED] insulin glargine (Lantus SoloStar) 100 UNIT/ML pen INJECT 25 UNITS UNDER THE SKIN IN THE MORNING AND 20 UNITS IN THE EVENING (TWICE DAILY) 45 mL 3 No current facility-administered medications on file prior to visit. Allergies Allergen Reactions Sulfa Antibiotics Unknown and Swelling sore in mouth Iodine Shellfish Allergy vomitting, diarrhea Shellfish-Derived Products Unknown Social History Tobacco Use Smoking status: Never Smokeless tobacco: Never Vaping Use Vaping status: Never Used Substance Use Topics Alcohol use: Never Drug use: Never Family History Problem Relation Name Age of Onset Diabetes Mother Heart disease Mother Heart disease Father Uterine cancer Sibling Breast cancer Sibling Diabetes Sibling Heart disease Sibling Other (Other) Sibling 2 brothers & 2 sisters, . Past Medical History: Diagnosis Date CAD (coronary artery disease) ([facility]) CAD (coronary artery disease) ([facility]) Elevated Troponin (05/09/2022-05/11/2022) Chest pain 06/06/2022, 08/28/2022 CHF (congestive heart failure) ([facility]) Chronic systolic heart failure ([facility]) Coronary atherosclerosis ([facility]) Diabetes mellitus ([facility]) History of being hospitalized 09/04/2023 Bradycardia, URI, Metabolic Acidosis, Dehydration HLD (hyperlipidemia) ([facility]) Past Surgical History: Procedure Laterality Date ADENOIDECTOMY ANGIOGRAM 04/21/2022 PCI,RCA,PDA APPENDECTOMY 1963 CARDIAC CATHETERIZATION Right 03/07/2022 CARDIAC PACEMAKER PLACEMENT 09/07/2023 HYSTERECTOMY 1997 Visit Vitals BP 152/76 Pulse 71 Resp 16 Ht 5' 7 Wt 150 lb 9.6 oz SpO2 99% BMI 23.59 kg/m Smoking Status Never BSA 1.8 m Review of Systems Constitutional: Negative for chills, fatigue and fever. Respiratory: Negative for cough, shortness of breath and wheezing. Cardiovascular: Negative for chest pain, palpitations and leg swelling. Gastrointestinal: Negative for abdominal pain, constipation, diarrhea, nausea and vomiting. Genitourinary: Positive for dysuria and frequency. Skin: Negative for rash. Objective Physical Exam Constitutional: General: She is not in acute distress. Appearance: Normal appearance. She is well-developed. HENT: Head: Normocephalic and atraumatic. Eyes: General: No scleral icterus. Conjunctiva/sclera: Conjunctivae normal. Cardiovascular: Rate and Rhythm: Normal rate and regular rhythm. Heart sounds: Normal heart sounds. No murmur heard. Pulmonary: Effort: Pulmonary effort is normal. No respiratory distress. Breath sounds: Normal breath sounds. No wheezing, rhonchi or rales. Abdominal: General: There is no distension. Palpations: Abdomen is soft. Tenderness: There is no abdominal tenderness. There is no right CVA tenderness or left CVA tenderness. Skin: General: Skin is warm and dry. Neurological: General: No focal deficit present. Mental Status: She is alert and oriented to person, place, and time. Psychiatric: Mood and Affect: Mood normal. Behavior: Behavior normal. Office Visit on 04/19/2024 Component Date Value Ref Range Status Color, UA 04/19/2024 Light Yellow Final Clarity, UA 04/19/2024 Clear Final Glucose, UA 04/19/2024 4+ Negative - 1999(110) ++++ mg/dL Final Bilirubin, UA 04/19/2024 Negative Negative - 4(70) +++ mg/dL Final Ketones, UA 04/19/2024 Negative Negative - 160(16) ++++ mg/dL Final Spec Grav, UA 04/19/2024 1.005 1 - 1.03 Final Blood, UA 04/19/2024 Positive Negative - 50 Ky/mcL Final Trace Non-Hemolyzed pH, UA 04/19/2024 6.0 5 - 9 Final Protein, UA 04/19/2024 Negative Negative - 2000(20) ++++ mg/dL Final Urobilinogen, UA 04/19/2024 0.2 0.2 - 12 mg/dL Final Leukocytes, UA 04/19/2024 Moderate Negative - 500+++ Melinda/mcL Final Nitrite, UA 04/19/2024 Negative Negative - Positive Final Assessment/Plan Diagnoses and all orders for this visit: Acute cystitis with hematuria - URINARY TRACT INFECTION (HTRX); Future - ciprofloxacin (Cipro) 500 MG tablet; Take 1 tablet (500 mg) by mouth in the morning and 1 tablet (500 mg) before bedtime. Do all this for 7 days. - phenazopyridine (Pyridium) 200 MG tablet; Take 1 tablet (200 mg) by mouth 3 (three) times a day as needed for bladder spasms for up to 2 days Start the above medications as directed. Provided patient with prescription for Pyridium for symptomatic relief. Advised of potential side effects including discoloration of urine. Increase water intake, get plenty of rest. Advised patient that the urine will be sent out for culture. May need to change the antibiotic based on the culture results. If patient develops any N/V, fever/chills, or symptoms dramatically increase, the patient is to go to the ER. Otherwise follow up at our office if no improvement in one week. Dysuria - POCT Urinalysis dipstick UA abnormal. Diabetic peripheral neuropathy (CMS/HCC) - insulin glargine (Lantus SoloStar) 100 UNIT/ML pen; Inject 25 Units under the skin in the morning. INJECT 25 UNITS UNDER THE SKIN IN THE MORNING AND 20 UNITS IN THE EVENING (TWICE DAILY). Patient has only been needing 25 units of Lantus a day. Will stop the Jardiance at this time to see if the recurrent UTI's resolve. If not, can restart the medication and may need to try holding the Janumet to see if that has been contributing. Type 2 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 gangrene, with long-term current use of insulin (CMS/HCC) - insulin glargine (Lantus SoloStar) 100 UNIT/ML pen; Inject 25 Units under the skin in the morning. INJECT 25 UNITS UNDER THE SKIN IN THE MORNING AND 20 UNITS IN THE EVENING (TWICE DAILY). See above. Follow up for Appointment As Scheduled. documented in this encounter [facility] 09-16-2023 Note Incision healing wel l- no s/s of distress and RTC at 1 month for device interrogation [facility] 09-16-2023 Note [facility]TP CARDIOLOGY PROGR ESS NOTE HPI: Tere Hartmann is a 83 y.o. female here for wound check HPI 83 yo female presents to clinic for wound check s/p recent ventricular lead reposition. Currently pt denied chest pain, SOB, orthopnea, palpitations, fever, chills, N/V/D. 09/07/23 Conclusion DUAL CHAMBER PACEMAKER IMPLANT PROCEDURE NOTE DATE OF PROCEDURE: 09/07/23 PERFORMING PHYSICIAN: Dr. Cody Patrick CONSENT: Patient LOCATION: EP Lab PROCEDURE PERFORMED: [...] for 30 minutes after 26 capsule 0 Lanvannaus Solostar U-100 Insulin 100 unit/mL (3 mL) [...] echo (TTE) complete Result Date: 09/08/2023 1 [facility] Heart Station [address] [place] [address] [phone] (fax) Echocardiogram-[facility] Name: TERE HARTMANN Study Date: 09/08/2023 09:30 AM B/P: 140 mmHg/51 mmHg HR: Date of : 1940 Location: [facility] Height: 67 in. Age: 83 [...] LV Mass, 2D (more content not included)... [facility] 09-09-2023 Note UTP CARDIOLOGY INPAT [...] Value Ventricular Rate 76 Atrial Rate 76 MA Interval 226 QRS DURATION 164 QT Interval 456 QTC CALCULATION(BAZETT) 513 P Harlan 63 R-Harlan -77 T Wave Harlan 92 Impression Atrial-sensed ventricular-paced rhythm with prolonged [...] normal in siz (more content not included)... 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 female with past medical history of CAD s/p PCI with stenting, CHF, DM2, hypertension, hyperlipidemia presents as a direct admission from [facility] with dizziness on 09/07/23 to [facility]. Per report, patient presented to [facility] on 09-04-2023 due to dizziness and was found to be bradycardic in the 30s. Patient is on Coreg at home and this was held for 3 days without improvement in symptoms. She was then found to have second-degree AV block Mobitz type II and was transferred to [facility] for pacemaker placement. Patient underwent dual chamber pacemaker placement on 09/07/2023. Patient to be admitted to the hospitalist team overnight for observation post procedure. On 09/08, it was determined that lead had been dislodged and patient returned to laborer tree tapping for revision of pacemaker lead. She was [...] -ventricular lead dislodged and required Return to laborer tree tapping for lead revision procedure on 09/08/23 -interrogation [...] Center 09/16/2023 11:20 AM Abbie Crisostomo NP [facility] Your medication list START taking these medications [...] Your Medications These medications were sent to [phone] - [place], [place] - [address] [facility] [address], [place] [address] carvedilol 12.5 mg tablet doxycycline 100 mg [...] from last 7 days Lab Units 09/09/23 0509/08/23 1335 WBC AUTO 10*3/uL 9.41 6.99 HEMOGLOBIN [...] of discharge: regul (more content not included)... 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 [facility] 09-08-2023 Note 09/08/23 1406 Admission [...] Discharge? Yes Does the patient have a rn field case manager assigned to them through their [...] activate MyChart? Yes (link sent, mychart pending) [facility] 09-08-2023 Note [facility] Medicine Daily Progress Note - 09/08/2023 1:43 PM; Room: [address] [place] [address] Admission: 09/07/2023 7:38 PM; Length of stay: 1 days THE HOSPITALIST TEAM PREFERS TO USE [employer] FOR COMMUNICATION 7AM-7PM. IF I DO NOT RESPOND WITHIN 15 MINUTES, PLEASE PAGE ME/CALL THROUGH THE CONFIGURATION MANAGER. FROM 7PM-7AM, PLEASE PAGE [phone](COVR) Code Status: Full Code Barriers to Discharge: [...] block Active Problems: Coronary artery disease involving [place] coronary artery of [place] heart Chronic systolic heart failure (CMS/HCC) Mixed hyperlipidemia Diabetes mellitus (CMS/HCC) Benign essential hypertension Heart block atrioventricular Assessment and Plan Tere Hartmann is an 83 y.o. female with past medical history of CAD s/p PCI with stenting, CHF, DM2, hypertension, hyperlipidemia, presents as a direct admission from [facility] with dizziness and found to have heart block at which time she was sent to [facility] for further treatment. Per report, patient presented to [facility] on 09-04-2023 due to dizziness and was found to be bradycardic in the 30s. #Second-degree AV block Mobitz type II, s/p PPM implantation on 09/07/23 -noted on follow up imaging today that the ventricular lead had been dislodged. 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 [facility] 09-08-2023 Note dications for ventri [...] lead Fluoroscopy Conscious sedation Shamika Hutchins M.D. [facility] Mobile Developerpipe and test supervisor and Pediatrics Director: Cardiac Electrophysiology Program [facility] 09-08-2023 Note Patient: Tere Christopher idd Procedure Information Date/Time: 09/08/23 1125 Procedure: Pacemaker lead revision Location: [facility] PLACEMENT DIRECTOR 1 / [facility] (Cath) Providers: Shamika Hutchins [...] with attending and fellow. Additional Equipment Requests [facility] 09-08-2023 Note [facility]TP CARDIOLOGY INPAT [...] 86 20 98 % -- -- 09/07/23 194 163/66 -- -- 72 19 94 % [...] Value Ventricular Rate 74 Atrial Rate 74 MA Interval 220 QRS DURATION 128 QT Interval 432 QTC CALCULATION(BAZETT) 479 P Harlan 29 R-Harlan 21 T Wave Harlan -5 Impression Sinus rhythm with 1st degree [...] to lack o (more content not included)... [facility] System 09-07-2023 Note Hospital Medicine History and Physical 09/07/2023 7:47 PM THE HOSPITALIST TEAM PREFERS TO USE [employer] FOR COMMUNICATION 7AM-7PM. IF I DO NOT RESPOND WITHIN 15 MINUTES, PLEASE PAGE ME/CALL THROUGH THE CONFIGURATION MANAGER. FROM 7PM-7AM, PLEASE PAGE [phone](COVR) Chief Complaint [facility] with [facility] block, patient S/p pacemaker with our cardio team on 09/07 History of Present Illness Tere Hartmann is an 83 y.o. female who came from home with past medical history of CAD s/p PCI with stenting, CHF, DM2, hypertension, hyperlipidemia presents as a direct admission from [facility] with dizziness. Per report, patient presented to [facility] on 09-04-2023 due to dizziness and was found to be bradycardic in the 30s. Patient is on Coreg at home and this was held for 3 days without improvement in symptoms. She was then found to have second-degree AV block Mobitz type II and was transferred to [facility] for pacemaker placement. Patient underwent [...] Central vestibular vertigo 01/27/2023 Diabetic peripheral neuropathy ([facility]) 01/27/2023 Diabetic renal disease ([facility]) 01/27/2023 Diverticulitis 01/27/2023 Mass of left adrenal gland ([facility]) 01/27/2023 Ovarian failure 01/27/2023 Skin sensation disturbance 01/27/2023 Type 2 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 gangrene ([facility]) 01/27/2023 Type 2 diabetes mellitus without complications ([facility]) 01/27/2023 Diabetes mellitus ([facility]) 08/01/2022 Benign hypertensive cardiomyopathy with heart failure ([facility]) 08/01/2022 Insomnia 08/01/2022 Non-smoker 08/01/2022 Restless legs syndrome 08/01/2022 Coronary artery disease involving confederated goshute coronary artery of confederated goshute heart 06/25/2022 Chronic systolic heart failure ([facility]) 06/25/2022 Mixed hyperlipidemia 06/25/2022 Lightheadedness 03/12/2022 Heart block atrioventricular 09/07/2023 Presence of drug coated stent in right coronary artery 06/25/2022 Assessment and Plan Tere Hartmann is an 83 y.o. female who came from home with past medical history of CAD s/p PCI with stenting, CHF, DM2, hypertension, hyperlipidemia presents as a direct admission from [facility] with dizziness. Per report, patient presented to [facility] on 09-04-2023 due to dizziness and [...] recommendation #Chronic sys (more content not included)... [facility] 09-07-2023 Note DUAL CHAMBER PACEMAK ER IMPLANT PROCEDURE NOTE DATE OF PROCEDURE: 09/07/23 PERFORMING PHYSICIAN: Dr. Cody Patrick CONSENT: Patient LOCATION: EP Lab PROCEDURE PERFORMED: [...] using modified seldinger technique using a 5 Ivorian micro-puncture needle on two occasions and 0.35 [...] for the device above the muscle. 6 Ivorian Safesheaths were placed over the wire. An active fixation Biotronik pacing lead was then delivered through the 6Fsheath tothe right ventricle. After confirmation of lead position on orthogonal views (HERNANDEZ and ENGLISH) to confirm septal position, the screw was [...] lead position on orthogonal views (HERNANDEZ and ENGLISH), the screw was activated. Good sensing parameters, [...] discharge or sooner for any concerns. Cody Patrick MD Cardiac Electrophysiology [facility] 09-07-2023 Note Patient: Tere Christopher idd Procedure Information Date/Time: 09/07/231901 Procedure: PPM generator change - dual Location: [facility] PLACEMENT DIRECTOR 1 EP / [facility] (Cath) Providers: Cody Patrick MD Clinical information reviewed: Allergies Meds OB Status Physical Exam Airway Mallampati: II TM distance: >3 FB Neck ROM: full Cardiovascular Dental Pulmonary Abdominal Anesthesia Plan ASA 2 CSE Anesthetic plan and risks discussed with patient. Use of blood products discussed with patient who. Additional Equipment Requests [facility] 09-22-2022 Evaluation note Encounter Date [...] and report elevations to primary care Aug, custodial current use of insulin (ICD-10 - Z79.4) [facility] Other 09-11-2022 Discharge summary Author Herminia Lawler [facility] May 11, 2022 2:35pm Note Date/Time May 11, 2022 2:27pm [facility] [address] [place] [address] Discharge Summary Signed Patient: Tere Hartmann MR#: [id number] : 1940 Acct:[id number] Age/Sex: 82 / F Adm Date: 2 Loc: Room: [address] [place] [address]: Herminia Lawler MD Copies to: MD Herminia Owens II, MD~ Providers Date of Discharge: 05/11/22 Discharging Provider: Herminia Lawler Primary Care Provider: Rordick Butler Consults: 05/09/22 12:46 Consult to Cardiology [...] on exertion in February and went to [facility], She had Echo with EF [...] report with EF 40%. Repeat Troponin at [facility] uptrended to 600s, EKG with no acute ischemic changes again, given her recent cardiac history, raised the concern forstent thrombosis. Patient was started on IV heparin drip for presumptive NSTEMI and decision made to transfer patient over here to [facility] for possible cardiac cath. In our facility, [...] <Electronically signed by Herminia Lawler MD> 05/11/22 1430 [facility] Work Phone: 1([phone]) 100-161509-11-2022 Progress note Author Itz Townsend [facility] May 11, 2022 12:15pm Note Date/Time May 11, 2022 12:12pm [facility] [address] [place] [address] Cardiology Progress Note Signed Patient: Tere Hartmann MR#: [id number] : 1940 Acct:[id number] Age/Sex: 82 / F Adm Date: 2 Loc: Room: [address] [place] [address] Type: ADM IN Attending Dr: Herminia Lawler [...] Code(s): I25.10 - Atherosclerotic heart disease of confederated goshute coronary artery without angina pectoris Status: Acute [...] signed by MD Itz Townsend> 05/11/22 1215 [facility] Work Phone: 1(215) 840-276509-10-2022 Progress note Author Herminia Lawler [facility] May 10, 2022 11:22am Note Date/Time May 10, 2022 11:05am [facility] [address] [place] [address] Hospitalist Progress Note Signed Patient: Tere Hartmann MR#: [id number] : 1940 Acct:[id number] Age/Sex: 82 / F Adm Date: 2 Loc: Room: 7J3673-0 Type: ADM IN Attending Dr: Herminia Lawler [...] Insuln.Pen SUBCUT 05/09/23 16:59 Not Given TID.WM.HS [facility] Protocol Insulin Detemir 32 units 05/09/22 22:00 [...] then RCA and PDA on 04/21/22 at [facility] PE was ruled out by [...] with hyperglycemia -HbA1C 10.8 -Blood glucose at [facility] was 499. Negative for ketones. DKA was [...] <Electronically signed by Herminia Lawler MD> 05/10/22 1121 [facility] Work Phone: [phone]) 956-573909-10-2022 Progress note Author Itz Townsend [facility] May 10, 2022 8:46am Note Date/Time May 10, 2022 8:46am [facility] [address] [place] [address] Cardiology Progress Note Signed Patient: Tere Hartmann MR#: [id number] : 1940 Acct:[id number] Age/Sex: 82 / F Adm Date: 2 Loc: Room: [address] [place] [address] Type: ADM IN Attending Dr: Herminia Lawler [...] % (Auto) 55.8 Lymph % (Auto) 35.8 [place] % (Auto) 6.3 Eos % (Auto) 1.5 Baso % (Auto) 0.6 Neut # (Auto) 3.4 Lymph # (Auto) 2.2 [place] # (Auto) 0.4 Eos # (Auto) 0.1 [...] MPV Neut % (Auto) Lymph % (Auto) [place] % (Auto) Eos % (Auto) Baso % (Auto) Neut # (Auto) Lymph # (Auto) [place] # (Auto) Eos # (Auto) Baso # [...] MPV Neut % (Auto) Lymph % (Auto) [place] % (Auto) Eos % (Auto) Baso % (Auto) Neut # (Auto) Lymph # (Auto) [place] # (Auto) Eos # (Auto) Baso # [...] MPV Neut % (Auto) Lymph % (Auto) [place] % (Auto) Eos % (Auto) Baso % (Auto) Neut # (Auto) Lymph # (Auto) [place] # (Auto) Eos # (Auto) Baso # [...] % (Auto) 45.7 Lymph % (Auto) 42.4 [place] % (Auto) 6.4 Eos % (Auto) 2.7 Baso % (Auto) 2.8 Neut # (Auto) 3.2 Lymph # (Auto) 3.0 [place] # (Auto) 0.4 Eos # (Auto) 0.2 [...] MPV Neut % (Auto) Lymph % (Auto) [place] % (Auto) Eos % (Auto) Baso % (Auto) Neut # (Auto) Lymph # (Auto) [place] # (Auto) Eos # (Auto) Baso # [...] artery disease): Assessment/Problem Details: Angiographic studies from [facility] reviewed. She had a 99% ramus intermedius [...] Code(s): I25.10 - Atherosclerotic heart disease of confederated goshute coronary artery without angina pectoris Status: Acute [...] <Electronically signed by MD Itz Townsend> 05/10/2246 [facility] Work Phone: [phone]) 256-142009-09-2022 Consult note Author Itz Townsend [facility] May 09, 2022 5:03pm Note Date/Time May 09, 2022 5:03pm [facility] [address] [place] [address] Cardiology Consult Note Signed Patient: Tere Hartmann MR#: [id number] : 1940 Acct:[id number] Age/Sex: 82 / F Adm Date: 2 Loc: Room: [address] [place] [address] Type: ADM IN Attending Dr: Herminia Lawler [...] comparisonand will not use the enzymes from [facility] to make decisions. Presently it appears the [...] of heart artery stent x3 placed in [facility] February 2022 Social History Smoking [...] x10E3/uL Lymph # (Auto) 2.2 (1.00-4.8) x10E3/uL [place] # (Auto) 0.4 (0.0-0.8) x10E3/uL Eos # [...] Intake Total 25 / 25 Balance 25 25 Intake: Oral 25 / 25 Other: [...] Code(s): I25.10 - Atherosclerotic heart disease of confederated goshute coronary artery without angina pectoris (2) DM [...] follow advise. Documented By: Itz Townsend MD [id number] Signed By: <Electronically signed by MD Itz Townsend> 05/09/22 8965 [facility] Work Phone: 1(181) 259-654909-09-2022 History and physical note Author Herminia Lawler [facility] May 09, 2022 3:50pm Note Date/Time May 09, 2022 1:19pm [facility] [address] [place] [address] Hospitalist H&P Signed Patient: Tere Hartmann MR#: [id number] : 1940 Acct:[id number] Age/Sex: 82 / F Adm Date: 2 Loc: Room: [address] [place] [address] Type: ADM IN Attending Dr: Herminia Lawler MD Copies to: MD Herminia Owens IIr, MD~ HPI DATE OF EXAMINATION: 05/09/22 CHIEF COMPLAINT: Epigastric pain HISTORY OF PRESENT ILLNESS: Patient is an 82 elderly female with PMH HTN, DM, CAD s/p recent PCIs, patient had symptoms of SOB and fatigue on exertion in February and went to [facility], She had Echo with EF [...] with EF 40%.This morning, repeat Troponin at [facility] uptrended to 600s, EKG with no acute ischemic changes again, given her recent cardiac history, raised the concern forstent thrombosis/restenosis. Patient was started on IV heparin drip for presumptive NSTEMI and decision made to transfer patient over here to [facility] for possible cardiac cath. During my encounter, [...] of heart artery stent x3 placed in [facility] February 2022 Social History Smoking [...] then RCA and PDA on 04/21/22 at [facility] PE was ruled out by CTA Aortic dissection was ruled out by [facility] -Patient was transferred from [facility] for NSTEMI for possible cardiac cath -Initial troponin at [facility] was normal then repeat was in 600s. Repeat troponin in our facility remains in the 600s. Patient denies any chest pain or epigastric pain, however, she does report bloating sensation in the epigastrium -Patient was started on heparin drip ACS protocol at [facility]. We will continuefor now. Further recommendations to follow by cardio -Heparin drip management per pharmacy protocol for ACS -Check serial troponin -Cardiology was consulted. We will follow-up recommendations -Continue DAPT, statin, beta-reginaldo -Check Echocardiogram -Admit to 4 P for close monitoring Uncontrolled Diabetes with hyperglycemia -HbA1C today 10.8 -Blood glucose at [facility] was 499. Negative for ketones. DKA was [...] signed by Herminia Lawler MD> 05/09/22 1550 [facility] Work Phone: 1(585) 691-422108-01-2022 History general Narrative - Reported* Type Description Date Medical History DM2 Medical History HTN Medical History cervical cancer stage 1 Medical History glaucoma Medical History [place] Medical History coronary artery dise ase-stents x3 February/March 2022 Surgical History MIREYA 1989 Surgical History appedectomy 1960 Surgical History breast biopsy-benign unsure of date Surgical History Stents x3 2021 Hospitalization History See Above [facility] Other Discharge summary Author Herminia Lawler [facility] May 11, 2022 2:35pm Note Date/Time May 11, 2022 2:27pm [facility] [address] [place] [address] Discharge Summary Signed Patient: Tere Hartmann MR#: [id number] : 1940 Acct:[id number] Age/Sex: 82 / F Adm Date: 2 Loc: Room: [address] [place] [address]: Herminia Lawler MD Copies to: MD Herminia Owens II, MD~ Providers Date of Discharge: 05/11/22 Discharging Provider: Herminia Lawler Primary Care Provider: Rodrick Bulter Consults: 05/09/22 12:46 Consult to Cardiology Routine [...] on exertion in February and went to [facility], She had Echo with EF [...] report with EF 40%. Repeat Troponin at [facility] uptrended to 600s, EKG with no acute ischemic changes again, given her recent cardiac history, raised the concern forstent thrombosis. Patient was started on IV heparin drip for presumptive NSTEMI and decision made to transfer patient over here to [facility] for possible cardiac cath. In our facility, [...] <Electronically signed by Herminia Lawler MD> 05/11/22 1606 [facility] Work Phone: Evaluation note* Diagnosis Onset Date Resolution Status CAD (coronary artery disease) acute DM (diabetes mellitus) acute Elevated troponin acute Epigastric abdominal pain ac [place] HLD (hyperlipidemia) acute HTN (hypertension) acute [facility] Work Phone: Evaluation noteNo assessment information available [facility] Work Phone: Evaluation note* Diagnosis TIA (transient ischemic attack)- Primary Unspecified transient cerebral ischemia Type 2 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 gangrene, with long-term current use of insulin (CMS/HCC) Benign essential hypertension (CMS/HCC) Essential hypertension, benign documented in this encounter [facility] HealthcareEvaluation note* Diagnosis Benign essential hypertension (CMS/HCC) Essential hypertension, benign Chronic systolic heart failure (CMS/HCC) Chronic systolic heart failure documented in this encounter [facility]* Diagnosis Benign essential hypertension (CMS/HCC)- Primary Essential hypertension, benign Encounter for immunization documented in this encounter [facility] HealthcareEvaluation note* Diagnosis Benign essential hypertension (CMS/HCC)- Primary Essential hypertension, benign Type 2 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 gangrene, with long-term current use of insulin ([facility]) documented in this encounter [facility] HealthcareEvaluation note* Diagnosis Acute cystitis with hematuria- Primary Dysuria Diabetic peripheral neuropathy (CMS/HCC) Type II or unspecified type diabetes mellitus with neurological manifestations, not stated as uncontrolled Type 2 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 gangrene, with long-term current use of insulin (CMS/HCC) documented in this encounter [facility] HealthcareEvaluation note* Diagnosis Acute cystitis with hematuria Diabetic peripheral neuropathy (CMS/HCC) Type II or unspecified type diabetes mellitus with neurological manifestations, not stated as uncontrolled Type 2 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 gangrene, with long-term current use of insulin ([facility]) documented in this encounter [facility] HealthcareEvaluation note* Diagnosis Acute cystitis with hematuria [facility] Dis[facility] Additional Instructions - Follow-up with your primary care physician for diabetes control - Incidental finding of left adrenal mass 3.6 cm. Follow up as outpatient - Referral to endocrinology clinic for better diabetes control and labile blood glucose management - Continue to follow-up with your private cardiology -Return to ER in case of worsening in symptoms or developing new alarming [facility] Work Phone: Reason for visit NarrativeSelf Referral, [facility] Visit Codes, TKM 2 IDDMNorth [employer] Other Summary Purpose Family History No Family History Records FoundNo Family History Records FoundNo Family History Records FoundNo Family History Records FoundNo Family History Records FoundNo Family History Records FoundNo Family History Records Found Advance Directives Advance Directive Response Recorded Date/ Time Advance Directives No May 8:35am Chief Complaint and Reason for Visit Chief Complaint non stemi Reason for Visit CAD (coronary artery disease) DM (diabetes mellitus) Elevated troponin Epigastric abdominal pain HLD (hyperlipidemia) HTN (hypertension) Reason for Referral Specialty Diagnoses / Procedures Referred By Contac t Referred To Contact Diagnoses Acute cystitis with hematuria Beverly Paredes PA [address] [facility] [address] [place] [address] Referral ID Status Reason Start Date Expiration Date V isits Requested Visits Authorized [id number] Pending Review 04/26/2024 10/23/2024 1 1 Additional Source Comments INFORMATION SOURCE (unrecogn ized section and content) DATE CREATED AUTHOR 04/28/2022 [facility] DATE CREATED AUTHOR AUTHOR'S ORGANIZ ATION 05/27/2022 [facility] DATE CREATED AUTHOR AUTHOR'S ORGANIZ ATION 12/05/2022 [facility] DATE CREATED AUTHOR AUTHOR'S ORGANIZ ATION 05/14/2023 [facility] DATE CREATED AUTHOR AUTHOR'S ORGANIZ ATION 09/28/2023 [facility] DATE CREATED AUTHOR AUTHOR'S ORGANIZ ATION 07/05/2024 [facility] EPIC DATE CREATED AUTHOR AUTHOR'S ORGANIZ ATION 08/11/2024 [facility] Care Teams (unrecognized sec tion [...] Butler II MD Primary Care Provider Active National Business Director Relationship Specialty Start Date End Date Rodrick Butler MD [address] [place] [address] PCP - [employer] 08/31/22 Rodrick Butler MD [address] [place] [address] PCP - General Internal Medicine 01/14/23 National Business Director Relationship Specialty Start Date End Date Rodrick Butler MD [address] [place] [address] PCP - [employer] 08/31/22 Rodrick Butler MD [address] [place] [address] PCP - General Internal Medicine 01/14/23 National Business Director Relationship Specialty Start Date End Date Rodrick Butler MD [address] [place] [address] PCP - [employer] 08/31/22 Rodrick Butler MD [address] [place] [address] PCP - General Internal Medicine 01/14/23 National Business Director Relationship Specialty Start Date End Date Rodrick Butler MD [address] [place] [address] PCP - [employer] 08/31/22 Rodrick Butler MD [address] [place] [address] PCP - General Internal Medicine 01/14/23 National Business Director Relationship Specialty Start Date End Date Rodrick Butler MD [address] [place] [address] PCP - [employer] 08/31/22 Rodrick Butler MD [address] [place] [address] PCP - General Internal Medicine 01/14/23 National Business Director Relationship Specialty Start Date End Date Rodrick Butler MD [address] [place] [address] PCP - [employer] 08/31/22 Rodrick Butler MD [address] [place] [address] PCP - General Internal Medicine 01/14/23 National Business Director Relationship Specialty Start Date End Date Rodrick Butler MD [address] [place] [address] PCP - [employer] 08/31/22 Rodrick Butler MD [address] [place] [address] PCP - General Internal Medicine 01/14/23 National Business Director Relationship Specialty Start Date End Date Rodrick Butler MD [address] [place] [address] PCP - [employer] 08/31/22 Rodrick Butler MD [address] [place] [address] PCP - General Internal Medicine 01/14/23 Goals (unrecognized section and content) Goals may be documented in a n alternate section Reason for Visit (unrecogniz ed section and content) Reason Comments Hypertension Medication added speedy nidine losartan Reason Comments Med Refill Lantus solostar Reason Comments UTI Pt finished cipro st ates she has dysuria and would like ua checked--sent for culture FOR RECORDS PERTAINING TO PATIENTS WHO ARE [...] BE BASED ON THE PRIMARY CLINICAL RECORDS. [facility] [employer] provides no warranty or guarantee of the accuracy or completeness of information in this document.
[2024-08-29 08:40] LABS: Alanine Aminotransferase 22 U/L (14-59); Aspartate Amino Transferase 17 U/L (15-37); Chol HDL Ratio 2.6; Cholesterol 114 mg/dL (<=200); HDL Cholesterol 44 mg/dL (40-60); LDL Cholesterol Calculated 49.4 mg/dL; Triglycerides 103 mg/dL (<=150); VLDL CHOLESTEROL 20.6 mg/dL
== END 2024-08-29 08:14 | disposition home or self-care (01) ==
LOC: LAB 08:14
PROVIDERS: PCP Internal Medicine; Visit Provider Internal Medicine Cardiovascular Disease
DX: E78.1 Pure hyperglyceridemia (principal)
CPT/HCPCS: 36415; 80061; 84450; 84460

== ENCOUNTER 2024-10-10 09:28 | Outpatient (OUT) | payer MEDICARE, SELFPAY ==
--- OUTSIDE RECORDS SUMMARY | 2024-10-10 09:45 | XMS_ITS | CCD ---
Author Organization [facility] Care Team Providers Care Babysitter Name Role Phone RODRICK BUTLER Primary Care Unavailable RODRICK BUTLER Referring Unavailable SILVINA BREEN Admitting Unavailable SILVINA BREEN Attending Unavailable RODRICK BUTLER Primary Care Unavailable RODRICK BUTLER Referring Unavailable SILVINA BREEN Admitting Unavailable SILVINA BREEN Attending Unavailable CHANDA Butler Primary Care Provider [phone] MD Herminia Lawler Admit Provider [phone] MD Herminia Lawler Attending Provider KY Rojas Other Provider Unavailable DO Darrion Gilbert Other Provider MD Bo Boothe Other Provider [phone] MD Itz Arguello Other Provider [phone] MD Azra Cedillo Other Provider [phone] MD Jesse Sahu Other Provider JUAN Ramos Other Provider MD Jackie Curtis Other Provider MD August Obrien Other Provider MD Brenna Veras Other Provider Itz Arguello II Attending Unavailable Saundra ARMAS, Itz Attending Unavailable Saundra ARMAS, Itz Attending Unavailable Heather Soler Unavailable DR RODRICK BUTLER Attending Unavailable LUKE, DR MENSAH Admitting Unavailable DR RODRICK BUTLER Primary Care Unavailable DR RODRICK BUTLER Consulting Unavailable JOHNATHON, DR LOIUS Brice Consulting Unavailable LUKE, DR MENSAH Attending Unavailable BUTLER, DR MENSAH Admitting Unavailable BUTLER, DR MENSAH Primary Care Unavailable BUTLER, DR MENSAH Consulting Unavailable ZIEBER, DR LOUIS Brice Consulting Unavailable BUTLER, DR MENSAH Primary Care Unavailable REFUGIO, AHMAD Attending Unavailable REFUGIO, AHMAD Admitting Unavailable REFUGIO, AHMAD Consulting Unavailable ANDRESSA, TAYLOR Attending Unavailable ANDRESSA, TAYLOR Admitting Unavailable ANDRESSA, TAYLOR Consulting Unavailable BUTLER, DR MENSAH Primary Care Unavailable BUTLER, DR MENSAH Primary Care Unavailable ANDRESSA, TAYLOR Consulting Unavailable ANDRESSA, TAYLOR Attending Unavailable ANDRESSA, TAYLOR Admitting Unavailable BUTLER, DR MENSAH Primary Care Unavailable FAWWAD, CARRASCO H Attending Unavailable FAWWAD, CARRASCO H Admitting Unavailable WEST, DR CARMEN Kearns Consulting Unavailable JACKIE, DR HOPE Consulting Unavailable OLEARY, JEAN-CLAUDE Consulting Unavailable FAWWAD, CARRASCO H Consulting Unavailable NEFCY, EDWIGE Consulting Unavailable CARLOS, REJI Attending Unavailable CARLOS, REJI Admitting Unavailable BUTLER, DR MENSAH Primary Care Unavailable NADERER, DR ARTURO Vidal Consulting Unavailable JAME, THOMAS Consulting Unavailable CARLOS, REJI Consulting Unavailable MAYURI, CHRISTINA Consulting Unavailable LUKE, DR MENSAH Primary Care Unavailable ZIEBER, DR LOUIS Brice Consulting Unavailable MARKER ., DR VAZQUEZ Attending Unavailable MARKER ., DR VAZQUEZ Admitting Unavailable MARKER ., DR VAZQUEZ Consulting Unavailable BUTLER, DR MENSAH Primary Care Unavailable REINECK, DR CORTEZ Robertson Attending Unavailabl e REINECK, DR CORTEZ Robertson Admitting Unavailabl e REINECK, DR CORTEZ Robertson Consulting Unavailabl e BUTLER, DR MENSAH Referring Unavailable BUTLER, DR MENSAH Primary Care Unavailable ANDRESSA, TAYLOR Attending Unavailable ANDRESSA, TAYLOR Consulting Unavailable ANDRESSA, TAYLOR Admitting Unavailable ANDRESSA, TAYLOR Admitting Unavailable ANDRESSA, TAYLOR Consulting Unavailable ANDRESSA, TAYLOR Attending Unavailable BUTLER, DR MENSAH Primary Care Unavailable ANDRESSA, TAYLOR Consulting Unavailable BUTLER, DR MENSAH Primary Care Unavailable ANDRESSA, TAYLOR Attending Unavailable ANDRESSA, TAYLOR Admitting Unavailable BUTLER, DR MENSAH Attending Unavailable BUTLER, DR MENSAH Admitting Unavailable BUTLER, DR MENSAH Primary Care Unavailable BUTLER, DR MENSAH Consulting Unavailable ZIEBER, DR LOUIS Brice Consulting Unavailable Heather Soler Attending Unavailable Heather Soler Admitting Unavailable ButlerRodrick Primary Care Unavailable Rodrick Butler MD Unavailable Rodrick Butler MD Primary Care Provider [phone] BEVERLY PAREDES Attending Unavailable RODRICK BUTLER Attending Unavailable RODRICK BUTLER Attending Unavailable BEVERLY PAREDES Attending Unavailable RODRICK BUTLER Attending Unavailable SHARONA LOUISE Attending Unavailable BEVERLY PAREDES Attending Unavailable SHARONA LOUISE Attending Unavailable RODRICK BUTLER Attending Unavailable BEVERLY PAREDES Attending Unavailable RODRICK BUTLER Attending Unavailable RODRICK BUTLER Attending Unavailable FRANCISCO FORDE Referring Unavailable LUC PENNINGTON Attending Unavailable LUC PENNINGTON Attending Unavailable FRANCISCO FORDE Referring Unavailable ELTARICARDO EHAB Attending Unavailable ELTARICARDO EHAB Attending Unavailable TAYLOR CRISOSTOMO Attending Unavailable FRANCISCO FORDE Referring Unavailable Allergies Allergy Classification Reported Allergen(s) Allergy Type Date of Onset Reaction(s) Facility (5 sources) Iodine; 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: [IODINE] Drug Allergy 03-07-20 Rash [facility] Repository (6 sources) Sulfonamides (Antibiotic); 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: [SULFA (SULFONAMIDE ANTIBIOTICS)] Drug allergy (disorder) 07-10-20 Blister [facility] Repository (4 sources) Shellfish; 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: [shellfish derived] Propensity to adverse reactions 05-09-[address] [facility] (1 source) Sulfonamides (Antibiotic) Propensity to adverse reactions mouth sores [facility] [employer] Other (1 source) shellfish/iodine Propensity to adverse reactions vomiting [facility] [employer] Other (1 source) empagliflozin Drug Allergy [facility] Repository (1 source) Iodine Drug Allergy 07-10-20 15 [facility] Repository (1 source) Shellfish Drug allergy (disorder) 07-10-20 15 [facility] Repository (1 source) Iodine Drug Allergy 05-09-20 [facility] Repository (1 source) Sulfonamides (Antibiotic) Drug allergy (disorder) 05-09-20 [facility] Repository (20 sources) Iodine Drug Allergy 03-08-20 [facility] (20 sources) Shellfish Propensity to adverse reactions 03-08-20 [facility] (20 sources) Sulfonamides (Antibiotic) Drug Allergy 03-08-20 02 Unknown, Swelling [facility] (20 sources) Shellfish-Derived Products Drug Allergy 01-28-20 23 Unknown [facility] (4 sources) amLODIPine; 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: [AMLODIPINE] Drug Allergy 09-12-19 25 Swelling [facility] Work Phone: (4 sources) empagliflozin; 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: [EMPAGLIFLOZIN] Drug Allergy 08-01-20 22 Other [facility] (4 sources) sacubitril / valsartan; 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: [SACUBITRIL-VALSA RTAN] Drug Allergy 07-13-20 24 Other [facility] (3 sources) cloNIDine; 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: [CLONIDINE] Drug Allergy 09-20-19 25 Other [facility] (1 source) dapagliflozin; 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: [DAPAGLIFLOZIN] Drug Allergy 10-04-19 [facility] Repository Medications Current Medications Medication Drug Class(es) Dates Sig (Normalized) Sig (Original) amLODIPine 2.5 mg oral tablet (2 sources) Dihydropyridine Calcium Channel Reginaldo Start: 09-05-2024 End: 03-04-2025 take 1 tablet by mouth once daily amLODIPine (Norvasc) 2.5 MG tablet Indications: Benign essential hypertension (CMS/HCC) Take 1 tablet (2.5 mg) by mouth Daily 30 tablet 5 09/05/2024 03/04/2025 Active aspirin 81 mg delayed release oral tablet (20 sources) Platelet Aggregation Inhibitor, Nonsteroidal Anti-inflammatory Drug Start: 05-09-2022 take 81 mg by mouth once daily Aspirin Active 81 MG PO Daily May 08, 2022 11:00pm atorvastatin 80 mg oral tablet (20 sources) HMG-CoA Reductase Inhibitor Start: 05-09-2022 End: 07-12-2025 take 1 tablet by mouth at bedtime atorvastatin (Lipitor) 80 MG tablet Indications: Atherosclerosis of [place] coronary artery of [place] heart without angina pectoris (CMS/HCC) , Mixed hyperlipidemia (CMS/HCC) Take 1 tablet (80 mg) by mouth at bedtime 100 tablet 3 06/07/2024 07/12/2025 Active take 1 tablet by keaton th every twenty-four hours Atorvastatin Calcium 40 MG 1 tablet Oral ly Once a day Active Blood Glucose Monitoring Suppl (Blood Glucose Monitor System) w/Device kit (3 sources) Start: 09-08-2024 Blood Glucose Monitoring Suppl (Blood Glucose Monitor System) w/Device kit Indications: Type 2 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 gangrene, unspecified whether joint terminal attack controller insulin use (CMS/HCC) 1 each Daily 1 kit 09/08/2024 Active carvedilol 12.5 mg oral tablet (20 sources) alpha-Adrenergi c Reginaldo, beta-Adrenergic Reginaldo Start: 08-13-2023 End: 07-12-2025 [...] Active cloNIDine hydrochloride 0.1 mg oral tablet (18 sources) Central alpha-2 Adrenergic Agonist Start: 06-01-2024 [...] 11:00pm cyproheptadine hydrochloride 4 mg oral tablet (20 sources) Start: 12-22-2023 cyproheptadine (Periactin) 4 MG [...] May 10, 2022 11:00pm FreeStyle [place] - (1 source) Start: 09-23-2022 FreeStyle Libr e [place] - as directed -- 5 x day for 365 days Sending to [facility] medical Aug, Active FreeStyle Marianne 2 Sensor - (1 source) Start: 09-23-2022 FreeStyle Libr e 2 Sensor - as directed in vitro q 14 days for 84 days Sending to [facility] Aug, Active furosemide 20 mg oral tablet (8 sources) Loop Diuretic Start: 09-20-2024 End: 09-20-2024 take 1 tablet by mouth once daily as needed furosemide (Lasix) 20 MG tablet Indications: Bilateral leg edema Take 1 tablet (20 mg) by mouth Daily as needed (Swelling) 90 tablet 1 09/20/2024 Active Start: 05-09-2022 Furosemide Act edmundo 0 .ROUTE .COMPLEX May 08, 2022 11:00pm TAKE 1 TABLET BY MOUTH DAILY FOR 3 DAYS then stop; may repeat NEEDED for increased swelling glipiZIDE (1 source) Sulfonylurea Glucotrol Active latanoprost 0.05 mg/ml ophthalmic solution (14 sources) Prostaglandin Analog Start: 4 take 1 drop(s) into the eye(s) at bedtime latanoprost (Xalatan) 0.005 % ophthalmic solution Administer 1 drop into both eyes at bedtime 08/22/2024 Active Start: 10-05-2023 End: 07-04-2024 take 1 drop(s) into the eye(s) at bedtime latanoprost (Xalatan) 0.005 % ophthalmic solution Administer 1 drop into both eyes at bedtime 10/05/2023 07/04/2024 Discontinued (Other) LORazepam 1 mg oral tablet (1 source) Benzodiazepine take 1 tablet by mouth at bedtime Ativan 1 MG 1 tablet Orally at hs Active losartan potassium 50 mg oral tablet (20 sources) Angiotensin 2 Receptor Reginaldo Start: End: 5 take 1 tablet by mouth [...] SITagliptin 100 mg extended release oral tablet (20 sources) Biguanide, Dipeptidyl Peptidase 4 Inhibitor Start: 4 take 1 tablet by mouth every twenty-four hours at mealtime SITagliptin-metFORM IN ER (Janumet XR) 100-1000 MG per 24 hr tablet Indications: Type 2 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 gangrene, unspecified whether joint terminal attack controller insulin use (CMS/HCC) Take 1 tablet by [...] 08, 2022 11:00pm May 09, 2022 9:42am pantoprazole 40 mg delayed release oral tablet (2 sources) Proton Pump Inhibitor Start: 09-20-2024 take 1 tablet by mouth before mealtime pantoprazole (ProtoNix) 40 MG EC tablet Indications: Gastroesophageal reflux disease without esophagitis Take 1 tablet (40 mg) by mouth in the morning. Take before meals. Do not crush, chew, or split.. 30 tablet 09/20/2024 Active phenazopyridine hydrochloride 200 mg delayed release oral [...] chloride 10 meq extended release oral tablet (8 sources) Start: 09-20-2024 End: 09-20-2024 take 1 tablet by mouth once daily as needed potassium chloride CR (KLOR-CON) 10 MEQ ER tablet Indications: Bilateral leg edema Take 1 tablet (10 mEq) by mouth Daily as needed (Swelling) With Furosemide 90 tablet 3 09/20/2024 Active Start: 05-09-2022 take 10 mEq by mouth [...] mg 1 orally twice a day Active traZODone hydrochloride 50 mg oral tablet (7 sources) Serotonin Reuptake Inhibitor Start: 09-05-2024 End: 09-05-2025 traZODone (Desyrel) 50 MG tablet Indications: Primary insomnia Take 1.5-2 tablets (75-100 mg) by mouth as needed at bedtime for sleep 09/20/2024 Active zolpidem tartrate 10 mg oral tablet (1 source) gamma-Aminobutyr ic Acid-ergic Agonist take 1 tablet by mouth [...] with long-term current use of insulin (CMS/HCC) Take 1 tablet (10 mg) by mouth Daily 30 tablet 11 12/30/2023 04/19/2024 Discontinued (Side effects) 3 ml insulin glargine 100 unt/ml pen injector (20 sources) Insulin Analog Start: 04-22-2024 End: 09-20-2024 insulin glargine (Lantus SoloStar) 100 UNIT/ML pen Indications: Diabetic peripheral neuropathy (CMS/HCC) , Type 2 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 gangrene, with long-term current use of insulin (CMS/HCC) Inject 25 Units under the skin in the morning. 27 mL 3 09/20/2024 09/20/2024 Discontinued Start: 08-13-2023 End: 04-19-2024 inject 25 [IU] [...] bid CGM needed for titration December, Active ofloxacin 3 mg/ml ophthalmic solution (12 sources) Quinolone Antimicrobial Start: 03-25-2024 End: 07-04-2024 take 1 drop(s) into the eye(s) four times daily ofloxacin (Ocuflox) 0.3 % ophthalmic solution instill 1 DROP IN THE RIGHT EYE FOUR TIMES DAILY 03/25/2024 07/04/2024 Discontinued (Other) prednisoLONE acetate 10 mg/ml ophthalmic suspension (20 sources) Corticosteroid Start: 03-25-2024 End: 09-20-2024 take 1 drop(s) into the eye(s) four times daily prednisoLONE acetate (Pred-Forte) 1 % ophthalmic suspension instill 1 DROP IN THE RIGHT EYE FOUR TIMES DAILY 03/25/2024 09/20/2024 Discontinued (Other) Problems Active Problems Problem Classification Problem Date Documented Da te Episodic/Chronic Abdominal pain (11 sources) Epigastric pain; 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: [Epigastric pain] Onset: 2 05-10-2022 Episodic Acute myocardial infarction (20 sources) Myocardial infarction; 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: [Non-ST elevation (NSTEMI) myocardial infarction] Onset: 2 05-09-2022 Chronic Administrative/social admission (1 source) Dietary counseling and surveillance Episodic Cardiac dysrhythmias (8 sources) Palpitations; 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: [Palpitations] Onset: 2 Episodic Chronic kidney disease (1 source) Chronic kidney disease; 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: [CHRONIC KIDNEY DISEASE STAGE 3A] Onset: 2 Conduction disorders (20 sources) Heart block ; 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: [Conduction disorder, unspecified] Onset: 4 09-10-2023 Chronic Congestive heart failure; nonhypertensive (20 sources) Unspecified systolic (congestive) heart failure; 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: [Chronic systolic (congestive) heart failure] Onset: 2 Chronic Coronary atherosclerosis and other heart disease (20 sources) Coronary arteriosclerosis; 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: [Atherosclerotic heart disease of [place] coronary artery without angina pectoris] Onset: 3 05-09-2022 Chronic Diabetes mellitus with complications (20 sources) Hyperglycemia due to type 2 diabetes mellitus; 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: [Type 2 diabetes mellitus with hyperglycemia] Onset: 2 Chronic Disorders of lipid metabolism (20 sources) Hyperlipidemia; 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: [Hyperlipidemia, unspecified] Onset: 3 05-09-2022 Chronic Diverticulosis and diverticulitis (20 sources) Diverticular disease of colon; 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: [Diverticulosis of large intestine without perforation or abscess without bleeding] Onset: 3 01-27-2023 Chronic E Codes: Fall (1 source) Unspecified fall, initial encounter; 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: [UNSPECIFIED FALL INITIAL ENCOUNTER] Onset: 3 Episodic Esophageal disorders (6 sources) Gastroesophageal reflux disease without esophagitis; 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: [Gastro-esophageal reflux disease without esophagitis] Onset: 5 09-20-2024 Chronic Essential hypertension (20 sources) Hypertensive disorder; 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: [Essential (primary) hypertension] Onset: 3 05-09-2022 Chronic Hypertension with complications and secondary hypertension (20 sources) Hypertensive chronic kidney disease with stage 1 through stage 4 chronic kidney disease, or unspecified chronic kidney disease; 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: [Hypertensive heart and chronic kidney disease with heart failure and stage 1 through stage 4 chronic kidney disease, or unspecified chronic kidney disease] Onset: 2 04-14-2023 Chronic Immunizations and screening for infectious disease (2 sources) Patient encounter status; 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: [Encounter for immunization] 06-08-2024 Episodic Menopausal disorders (20 sources) Other primary ovarian failure; 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: [Ovarian failure] Onset: 3 Chronic Miscellaneous mental health disorders (4 sources) Primary insomnia; 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: [Primary insomnia] 09-05-2024 Chronic Nonspecific chest pain (5 sources) Other chest pain; 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: [Chest pain, unspecified] Onset: 2 Episodic Nutritional deficiencies (2 sources) Vitamin D deficiency; 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: [Vitamin D deficiency, unspecified] Chronic Osteoporosis (1 source) Age-related osteoporosis without current pathological fracture; 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: [AGE-REL OSTEOPOR W/O CURR PATH FX] Onset: 3 Chronic Other aftercare (1 source) Long-term current use of insulin; 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: [long term care pharmacist (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 of insulin] Episodic Other aftercare (4 sources) detention (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 of insulin; Translations: [CARE HOME CURRENT USE OF INSULIN] Onset: 3 Episodic Other aftercare (1 source) detention (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 of aspirin; Translations: [KARATE BLACK BELT CURRENT USE OF ASPIRIN] Onset: 3 Episodic Other aftercare (1 source) Other joint terminal attack controller (current) drug therapy; Translations: [OTH KARATE BLACK BELT CURRENT DRUG THERAPY] Onset: 3 Episodic Other aftercare (1 source) detention (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 of antithrombotics/antipl atelets; Translations: [CARE HOME ANTITHROMBOT/ANTIPLATL ETS] Onset: 3 Episodic Other endocrine disorders (4 sources) Other specified disorders of adrenal gland; Translations: [OTHER SPEC DISORDERS ADRENAL GLAND] Onset: 2 Chronic Other endocrine disorders (20 sources) Mass of left adrenal gland; Translations: [Other specified disorders of adrenal gland] Onset: 3 01-27-2023 Chronic Other gastrointestinal disorders (1 source) [...] Other hereditary and degenerative nervous system conditions (20 sources) Restless legs; Translations: [Restless legs syndrome] Onset: 2 04-14-2023 Chronic Other injuries and conditions due [...] LUMP LOW LIMB MIKE] Onset: 3 Episodic Peripheral and visceral atherosclerosis (4 sources) Renal artery stenosis; Translations: [Atherosclerosis of renal artery] Onset: 5 09-20-2024 Chronic Residual codes; unclassified (4 sources) Bilateral lower limb edema; Translations: [Localized edema] Onset: 5 09-20-2024 Episodic Transient cerebral ischemia (2 sources) Transient cerebral ischemia; Translations: [Transient cerebral ischemic attack, unspecified] 06-01-2024 Chronic Unclassified (1 source) CHRN KIDNEY DISEASE STG 3 UNSP; Translations: [CHRN KIDNEY DISEASE STG 3 UNSP] Onset: 3 Unclassified (1 source) CONTACT W/AND (SUSP) EXPOS COVID-19; Translations: [CONTACT W/AND (SUSP) EXPOS COVID-19] Onset: 3 Past or Other Problems Problem Classification Problem Date Documented Date Episodic/Chronic Conditions associated with dizziness or vertigo (20 sources) Dizziness and giddiness; Translations: [Vertigo of central origin] Onset: 2 Episodic Coronary atherosclerosis and other heart disease (20 sources) Presence of coronary angioplasty implant and [...] Onset: 2 Episodic Other nervous system disorders (20 sources) Abnormal gait; Translations: [Unspecified abnormalities of gait and mobility] Onset: 3 01-27-2023 Episodic Other nervous system disorders (20 sources) Ataxia; Translations: [Ataxia, unspecified] Onset: 3 01-27-2023 Episodic Other nervous system disorders (20 sources) Skin sensation disturbance; Translations: [Unspecified disturbances of skin sensation] Onset: 3 01-27-2023 Episodic Other screening for suspected conditions (not mental disorders or infectious disease) (5 sources) Abnormal result of other cardiovascular function study; Translations: [Abnormal electrocardiogram [ECG] [EKG]] Onset: 2 Episodic Residual codes; unclassified (20 sources) Insomnia; Translations: [Insomnia, unspecified] Onset: 3 01-27-2023 Episodic Residual codes; unclassified (20 sources) Non-smoker; Translations: [Other specified health status] Onset: 2 04-14-2023 Episodic Urinary tract infections (5 sources) Urinary tract infection, site not specified; Translations: [Acute cystitis] Onset: 3 04-19-2024 Episodic Results Test Name Value Interpretation Reference Range Facility Office Visiton 10-04-2024 Follow-up visit [id number] Tere Aragon 1940 F Date Provider Department Center 10/04/2024 [id number] P[place] [facility] Family History Problem Relation Age of Onset Hypertension Mother Coronary artery disease Mother Coronary artery disease Father Hypertension Father Hypertension Sister Coronary artery disease Brother Family Status - Relation Status Age at Mother Father Sister Brother Level of Service:76525 [place] OFFICE/OUTPATIENT ESTABLISHED MOD MDM 30 MIN Reason for Visit and Comments: Congestive Heart Failure [127] - PCP gave her RX a few weeks ago for PRN lasix and potassium. She's taken them a few times and says her LE edema is improving. Coronary Artery Disease [187] Palpitations [[id number]] - Improving Hypertension [[id number]] - Clonidine was increased to twice daily at last visit in Jul 2024. She finished her bottle of it yesterday and does not want to continue it. It's given her dry mouth. She was switched to amlodipine per Dr. Pennington last week. She did not start amlodipine because she's tried it before and it's given her LE edema. Hyperlipidemia [182] - Had lipids in Jul 2024. [facility] 36on 09-28-2024 36 Patient has been informed and prescription sent to pharmacy per request [facility] 36on 09-20-2024 36 Patient states that she is having horrible dry mouth at night and the clonidine she is taking is causing it, Patient would like to know if their is an alternative she can try to reduce her dry mouth issues at night. Please advise [facility] Telephoneon 09-20-2024 Telephone [id number] Tere Aragon 1940 F Date Provider Department Center 09/20/2024 [id number] PENNINGTON [facility] Family History Problem Relation Age of Onset Hypertension Mother Coronary artery disease Mother Coronary artery disease Father Hypertension Father Hypertension Sister Coronary artery disease Brother Family Status - Relation Status Age at Mother Father Sister Brother [facility] Laboratory - Hematology and Cell countson 09-05-2024 HbA1c (Bld) [Mass fraction] 7.6 % [facility] No Panel Informationon 09-05 [facility] ALL LIPID PROFILE (FASTING)o n 08-29-2024 CHOL HDL RATIO 2.6 [facility] Comment on above: 3.3 - 4.4 LOW RISK 4.4 - 7.1 AVERAGE RISK 7.1 - 11.0 MODERATE RISK >11.0 HIGH RISK Cholesterol [Mass/Vol] 114 mg/dL NINF - 200 mg/dL [facility] Cholesterol in HDL [Mass/Vol] 44 mg/dL 40 - 60 mg/dL [facility] Comment on above: > or =60 mg/dl - LOW CARDIOVASCULAR RISK <40 mg/dl - HIGH CARDIOVASCULAR RISK Magnesium [Mass/Vol] 49.4 mg/dL [facility] Comment on above: <100 mg/dl OPTIMAL 100-129 mg/dl NEAR OR ABOVE OPTIMAL 130-159 mg/dl BORDERLINE HIGH 160-189 mg/dl HIGH >190 mg/dl VERY HIGH Magnesium [Mass/Vol] 20.6 mg/dL [facility] Triglyceride [Mass/Vol] 103 mg/dL NINF - 150 mg/dL [facility] 08-29-2024 ALT [Catalytic activity/Vol] 22 U/L 14 - 59 U/L [facility] 08-29-2024 AST [Catalytic activity/Vol] 17 U/L 15 - 37 U/L [facility] No Panel Informationon 08-29 [facility] Office Visiton 08-08-2024 Follow-up visit [id number] Tere Aragon 1940 F Date Provider Department Center 08/08/2024 [id number] PENNINGTON Family History Problem Relation Age of Onset Hypertension Mother Coronary artery disease Mother Coronary artery disease Father Hypertension Father Hypertension Sister Coronary artery disease Brother Family Status - Relation Status Age at Mother Father Sister Brother Level of Service:44456 [place] OFFICE/OUTPATIENT ESTABLISHED MOD MDM 30 MIN Reason for Visit and Comments: Palpitations [332904] - Follow up Holter monitor. Says Benadryl did not help her sleep. She sees PCP in a few days to discuss sleeping aid. Only feels palpitations at night, waking her up. Hypertension [417184] - Only taking clonidine in the evenings, for SPB > 170 Bradycardia [905315] - S/p PPM, which was interrogated 3 weeks ago in the office. Normal [facility] Office Visiton 07-13-2024 Follow-up visit [id number] Tere Aragon 1940 Date Provider Department Center 07/13/2024 [id number] SÁNCHEZ Family History Problem Relation Age of Onset Hypertension Mother Coronary artery disease Mother Coronary artery disease Father Hypertension Father Hypertension Sister Coronary artery disease Brother Family Status - Relation Status Age at Mother Father Sister Brother Level of Service:00450 [place] OFFICE/OUTPATIENT ESTABLISHED MOD MDM 30 MIN [facility] 36on 07-12-2024 36 Patient calling with reports of high blood pressure. She's already taken carvedilol (12.5mg), clonidine (0.1mg), and losartan (50mg) this morning and checked her BP twice after waiting awhile. 170/89 and 177/95 is what she got. Says she feels fuzzy but better than last night. HR is 60. Any suggestions? Please advise. Thanks. [facility] 36on 06-16-2024 36 Patient called with complaints of hypertension. This morning her blood pressure was 200/98 with blurred vision. After taking Clonidine blood pressure went down to 156/78. Her blurry vision has improved. I encouraged patient to go to ED if her blood pressure increases. She agrees. Sandy Morrison MA [facility] Office Visiton 06-15-2024 Follow-up visit [id number] Tere Aragon 1940 F Date Provider Department Center 06/15/2024 JOSH BRIZUELA Family History Problem Relation Age of Onset Hypertension Mother Coronary artery disease Mother Coronary artery disease Father Hypertension Father Hypertension Sister Coronary artery disease Brother Family Status - Relation Status Age at Mother Father Sister Brother Level of Service:99711 [place] OFFICE/OUTPATIENT ESTABLISHED LOW MDM 20 MIN [facility] Office Visiton 06-02-2024 Follow-up visit [id number] Tere Aragon 1940 F Date Provider Department Center 06/02/2024 TAYLOR WEBER Family History Problem Relation Age of Onset Hypertension Mother Coronary artery disease Mother Coronary artery disease Father Hypertension Father Hypertension Sister Coronary artery disease Brother Family Status - Relation Status Age at Mother Father Sister Brother Level of Service:49396 [place] OFFICE/OUTPATIENT ESTABLISHED LOW MDM 20 MIN [facility] Laboratory - Hematology and Cell countson 06-01-2024 HbA1c (Bld) [Mass fraction] 6.8 % [facility] No Panel Informationon 06-01 [facility] Urinalysis macro (dipstick) panel (U)on 05-05-2024 Bilirubin, UA Negative Negative - 4(70) +++ mg/dL [facility] Blood, UA Positive Negative - 50 Ky/mcL [facility] Clarity, UA Cloudy [facility] Color, UA Yellow [facility] Glucose, UA Negative Negative - 2000(110) ++++ mg/dL [facility] Ketones, UA Negative Negative - 160(16) ++++ mg/dL [facility] Leukocytes, UA Positive Negative - 500+++ Melinda/mcL [facility] Nitrite, UA Negative Negative - Positive [facility] pH, UA 5.0 5 - 9 [facility] Protein, UA Negative Negative - 1999(20) ++++ mg/dL [facility] Spec Grav, UA 1.000 1 - 1.03 [facility] Urobilinogen, UA 0.2 0.2 - 12 mg/dL [facility] Urinalysis macro (dipstick) panel (U)on 04-19-2024 Bilirubin, UA Negative Negative - 4(70) +++ mg/dL [facility] Blood, UA Positive Negative - 50 Ky/mcL [facility] Comment on above: Trace Non-Hemolyzed Clarity, UA Clear [facility] Color, UA Light Yellow [facility] Glucose, UA 4+ Negative - 1999(110) ++++ mg/dL [facility] Interpretation and review of laboratory results Abnormal [facility] Ketones, UA Negative Negative - 160(16) ++++ mg/dL [facility] Leukocytes, UA Moderate Negative - 500+++ Melinda/mcL [facility] Nitrite, UA Negative Negative - Positive [facility] pH, UA 6.0 5 - 9 [facility] Protein, UA Negative Negative - 1999(20) ++++ mg/dL [facility] Spec Grav, UA 1.005 1 - 1.03 [facility] Urobilinogen, UA 0.2 0.2 - 12 mg/dL [facility] Outside Recordson 05-13-2023 Outside Records [id number] 1#1.00CD:127 Normal [facility] Physician Orderon 05-13-2023 Physician Order [id number] 8#1.00CD:127 Normal [facility] BNPon 11-24-2022 Natriuretic peptide B (Bld) [Mass/Vol] 703.0 pg/mL Normal <=1,800.0 [facility] Comment on above: Performed By: #### C [facility] #### [facility] [address] [address] [address] Kesha Aguero CBC AUTO DIFFon 11-24-2022 BASO # 0.0 103/ul Normal 0.0-0.1 [facility] Comment on above: Performed By: #### D DIM #### [facility] [address] [place] [address] Dr. Kesha Aguero Basophils/100 WBC (Bld) 0.5 % Normal 0.2-2.0 [facility] Comment on above: Performed By: #### D DIM #### [facility] [address] [place] [address] Dr. Kesha Aguero EO # 0.1 103/ul Normal 0.0-0.7 [facility] Comment on above: Performed By: #### D DIM #### [facility] [address] [place] [address] Dr. Kesha Aguero Eosinophils/100 WBC (Bld) 1.4 % Normal 0.9-7.0 [facility] Comment on above: Performed By: #### D DIM #### [facility] [address] [place] [address] Dr. Kesha Aguero Erythrocyte distribution width (RBC) [Ratio] 14.9 % Normal 11.0-15.0 [facility] Comment on above: Performed By: #### D DIM #### [facility] [address] [place] [address] Dr. Kesha Aguero Hematocrit (Bld) [Volume fraction] 45.3 % Normal 36.0-48.0 [facility] Comment on above: Performed By: #### D DIM #### [facility] [address] [place] [address] Dr. Kesha Aguero Hemoglobin (Bld) [Mass/Vol] 13.9 g/dL Normal 12.0-16.0 [facility] Comment on above: Performed By: #### D DIM #### [facility] [address] [place] [address] Dr. Kesha Aguero IG # 0.02 10e3/ul Normal 0.00-0.03 [facility] Comment on above: Performed By: #### D DIM #### [facility] [address] [place] [address] Dr. Kesha Aguero IG % 0.2 % Normal 0.0-0.5 [facility] Comment on above: Performed By: #### D DIM #### [facility] [address] [place] [address] Dr. Kesha Aguero LYMPH # 2.6 103/ul Normal 1.2-3.8 [facility] Comment on above: Performed By: #### D DIM #### [facility] [address] [place] [address] Dr. Kesha Aguero Lymphocytes/100 WBC (Bld) 30.3 % Normal 20.5-60.0 [facility] Comment on above: Performed By: #### D DIM #### [facility] [address] [place] [address] Dr. Kesha Aguero MANUAL DIFF REQ NO Normal [facility] Comment on above: Performed By: #### D DIM #### [facility] [address] [place] [address] Dr. Kesha Aguero MCH (RBC) [Entitic mass] 25.6 pg Critically low 26.7-34 .0 [facility] Comment on above: Performed By: #### D DIM #### [facility] [address] [place] [address] Dr. Kesha Aguero MCHC (RBC) [Mass/Vol] 30.7 g/dL Normal 29.9-35.2 [facility] Comment on above: Performed By: #### D DIM #### [facility] [address] [place] [address] Dr. Kesha Aguero MCV (RBC) [Entitic vol] 83.3 fL Normal 81.0-99.0 [facility] Comment on above: Performed By: #### D DIM #### [facility] [address] [place] [address] Dr. Kesha Aguero MONO # 0.6 103/ul Normal 0.3-0.8 [facility] Comment on above: Performed By: #### D DIM #### [facility] [address] [place] [address] Dr. Kesha Aguero Monocytes/100 WBC (Bld) 6.5 % Normal 1.7-12.0 [facility] Comment on above: Performed By: #### D DIM #### [facility] [address] [place] [address] Dr. Kesha Aguero NEUT # 5.1 103/ul Normal 1.4-6.5 [facility] Comment on above: Performed By: #### D DIM #### [facility] [address] [place] [address] Dr. Kesha Aguero Neutrophils/100 WBC (Bld) 61.1 % Normal 43.0-75.0 [facility] Comment on above: Performed By: #### D DIM #### [facility] [address] [place] [address] Dr. Kesha Aguero Platelet mean volume (Bld) [Entitic vol] 9.6 fL Normal 9.5-13.5 [facility] Comment on above: Performed By: #### D DIM #### [facility] [address] [place] [address] Dr. Kesha Aguero PLT 208 103/ul Normal 150-450 [facility] Comment on above: Performed By: #### D DIM #### [facility] [address] [place] [address] Dr. Kesha Aguero RBC 5.44 106/ul Critically high 4.20-5.40 [facility] Comment on above: Performed By: #### D DIM #### [facility] [address] [place] [address] Dr. Kesha Aguero WBC 8.4 103/ul Normal 4.0-11.0 [facility] Comment on above: Performed By: #### D DIM #### [facility] [address] [place] [address] Dr. Kesha Aguero CULTURE BLOODon 11-24-2022 Microscopic examination of blood, culture Culture Observations: NO GROWTH AT 5 DAYS. Isolate 1 BC_BA_NA Normal [facility] Comment on above: Performed By: #### B LDCX2 #### [facility] [address] [place] [address] Dr. Kesha Aguero Microscopic examination of blood, culture Culture Observations: NO GROWTH AT 5 DAYS. Isolate 1 BC_BA_NA Normal [facility] Comment on above: Performed By: #### C [facility] #### [facility] [address] [place] [address] Dr. Kesha Aguero CULTURE URINEon 11-24-2022 CULTURE URINE Culture Observations: LIGHT GROWTH OF MIXED GENITAL SANTY. NO POTENTIAL PATHOGENS SEEN. Normal [facility] Comment on above: Performed By: #### C [facility] #### [facility] [address] [place] [address] Dr. Kesha Aguero ER URINE PROFILEon 3 Bilirubin Ql (U) Negative Normal NEGATIVE [facility] Comment on above: Performed By: #### D DIM #### [facility] [address] [place] [address] Dr. Kesha Aguero Clarity (U) CLEAR Normal CLEAR [facility] Comment on above: Performed By: #### D DIM #### [facility] [address] [place] [address] Dr. Kesha Aguero Color (U) DK. YELLOW Normal YELLOW [facility] Comment on above: Performed By: #### D DIM #### [facility] [address] [place] [address] Dr. Kesha BRUNO A micrscopic examination will be performed if indicated. Normal [facility] Comment on above: Performed By: #### D DIM #### [facility] [address] [place] [address] Dr. Kesha Aguero Glucose Ql (U) >1000 Abnormal NEGATIVE [facility] Comment on above: Performed By: #### D DIM #### [facility] [address] [place] [address] Dr. Kesha Aguero Hemoglobin Ql (U) Negative Normal NEGATIVE [facility] Comment on above: Performed By: #### D DIM #### [facility] [address] [place] [address] Dr. Kesha Aguero Ketones Ql (U) Negative Normal NEGATIVE [facility] Comment on above: Performed By: #### D DIM #### [facility] [address] [place] [address] Dr. Kesha Aguero LEUKOCYTES Negative Normal NEGATIVE [facility] Comment on above: Performed By: #### D DIM #### [facility] [address] [place] [address] Dr. Kesha Aguero Nitrite Ql (U) Positive Abnormal NEGATIVE [facility] Comment on above: Performed By: #### D DIM #### [facility] [address] [place] [address] Dr. Kesha Aguero pH (U) 6.0 [pH] Normal 5-9 [facility] Comment on above: Performed By: #### D DIM #### [facility] [address] [place] [address] Dr. Kesha Aguero SPEC GRAVITY <=1.005 Abnormal 1.005-<=1.02 5 [facility] Comment on above: Performed By: #### D DIM #### [facility] [address] [place] [address] Dr. Kesha Aguero UA PROTEIN Negative Normal NEGATIVE/ TRACE [facility] Comment on above: Performed By: #### D DIM #### [facility] [address] [place] [address] Dr. Kesha Aguero UR MICRO IND INDICATED Normal [facility] Comment on above: Performed By: #### D DIM #### [facility] [address] [place] [address] Dr. Kesha Aguero Urobilinogen Qn (U) 0.2 {Allison'U}/dL Normal 0.2 - 1. 0 [facility] Comment on above: Performed By: #### D DIM #### [facility] [address] [place] [address] Dr. Kesha Aguero LACTATE/LACTIC ACIDon 2022 Lactate [Moles/Vol] 1.0 mmol/L Normal 0.4-2.0 [facility] Comment on above: Performed By: #### C [facility] #### [facility] [address] [place] [address] Dr. Kesha Aguero PROF 14(COMP METB)on 023 Albumin [Mass/Vol] 3.8 g/dL Normal 3.4-5.0 [facility] Comment on above: Performed By: #### C [facility] #### [facility] [address] [place] [address] Dr. Kesha Aguero Albumin/Globulin [Mass ratio] 1.1 {ratio} Normal [facility] Comment on above: Performed By: #### C [facility] #### [facility] [address] [address] [address] Kesha Aguero ALP [Catalytic activity/Vol] 118 U/L Critically high 46-116 [facility] Comment on above: Performed By: #### C [facility] #### [facility] [address] [place] [address] Dr. Kesha Aguero ALT [Catalytic activity/Vol] 41 U/L Normal 14-59 [facility] Comment on above: Performed By: #### C [facility] #### [facility] [address] [place] [address] Dr. Kesha Aguero Anion gap [Moles/Vol] 14.3 mmol/L Normal [facility] Comment on above: Performed By: #### C [facility] #### [facility] [address] [place] [address] Dr. Kesha Aguero AST [Catalytic activity/Vol] 23 U/L Normal 15-37 [facility] Comment on above: Performed By: #### C [facility] #### [facility] [address] [place] [address] Dr. Kesha Aguero Bilirubin [Mass/Vol] 0.5 mg/dL Normal 0.2-1.0 [facility] Comment on above: Performed By: #### C [facility] #### [facility] [address] [place] [address] Dr. Kesha Aguero Calcium [Mass/Vol] 9.3 mg/dL Normal 8.5-10.1 [facility] Comment on above: Performed By: #### C [facility] #### [facility] [address] [place] [address] Dr. Kesha Aguero Chloride [Moles/Vol] 106 mmol/L Normal 98-107 [facility] Comment on above: Performed By: #### C [facility] #### [facility] [address] [place] [address] Dr. Kesha Aguero CO2 [Moles/Vol] 26.4 mmol/L Normal 21.0-32.0 [facility] Comment on above: Performed By: #### C [facility] #### [facility] [address] [address] [address] Kesha Aguero Creatinine [Mass/Vol] 0.92 mg/dL Normal 0.55-1.02 [facility] Comment on above: Performed By: #### C [facility] #### [facility] [address] [place] [address] Dr. Kesha Aguero EGFR-AF FILIPINO >60 Normal >=60 [facility] Comment on above: Performed By: #### C [facility] #### [facility] [address] [place] [address] Dr. Kesha Aguero EGFR-NON AF FILIPINO 58 mL/min/1.73m2 Critically low >=60 [facility] Comment on above: Performed By: #### C [facility] #### [facility] [address] [place] [address] Dr. Kesha Aguero Globulin (S) [Mass/Vol] 3.5 g/dL Normal [facility] Comment on above: Performed By: #### C [facility] #### [facility] [address] [place] [address] Dr. Kesha Aguero Glucose [Mass/Vol] 184 mg/dL Critically high 74-106 [facility] Comment on above: Performed By: #### C [facility] #### [facility] [address] [place] [address] Dr. Kesha Aguero Potassium [Moles/Vol] 4.7 mmol/L Normal 3.5-5.1 [facility] Comment on above: Performed By: #### C [facility] #### [facility] [address] [place] [address] Dr. Kesha Aguero Protein [Mass/Vol] 7.3 g/dL Normal 6.4-8.2 [facility] Comment on above: Performed By: #### C [facility] #### [facility] [address] [address] [address] Kesha Aguero Sodium [Moles/Vol] 142 mmol/L Normal 136-145 [facility] Comment on above: Performed By: #### C [facility] #### [facility] [address] [address] [address] Kesha Aguero Urea nitrogen [Mass/Vol] 18.0 mg/dL Normal 7.0-18.0 [facility] Comment on above: Performed By: #### C [facility] #### [facility] [address] [place] [address] Dr. Kesha Aguero Urea nitrogen/Creatinine [Mass ratio] 19.6 mg/mg Normal [facility] Comment on above: Performed By: #### C [facility] #### [facility] [address] [place] [address] Dr. Kesha Aguero TROPONIN, HIGH SENSITIVITYon 11-24-2022 HSTROP 9.2 pg/mL Normal 4.0-51.3 [facility] Comment on above: Result Comment: CUT- OFF POINTS HAVE BEEN ESTABLISHED BASED ON THE FOURTH UNIVERSAL DEFINITIONS OF MYOCARDIAL INFARCTION. THE UPPER REFERENCE LIMIT (URL) OF TROPONIN, DEFINED THE 99TH PERCENTILE OF cTnI DISTRIBUTION IN A REFERENCE POPULATION, HAS BEEN CONFIRMED THE DECISION THRESHOLD FOR [place] DIAGNOSIS. Performed By: #### A CET[facility] #### [facility] [address] [place] [address] Dr. Kesha Aguero HSTROP 9.5 pg/mL Normal 4.0-51.3 [facility] Comment on above: Result Comment: CUT- OFF POINTS HAVE BEEN ESTABLISHED BASED ON THE FOURTH UNIVERSAL DEFINITIONS OF MYOCARDIAL INFARCTION. THE UPPER REFERENCE LIMIT (URL) OF TROPONIN, DEFINED THE 99TH PERCENTILE OF cTnI DISTRIBUTION IN A REFERENCE POPULATION, HAS BEEN CONFIRMED THE DECISION THRESHOLD FOR [place] DIAGNOSIS. Performed By: #### C [facility] #### [facility] [address] [place] [address] Dr. Kesha Aguero URINE MICROSCOPIC ONLYon BACTERIA TRACE Abnormal NONE SEEN [facility] Comment on above: Performed By: #### C [facility] #### [facility] [address] [place] [address] Dr. Kesha Aguero Bacteria identified Cx Nom (U) INDICATED Normal [facility] Comment on above: Performed By: #### C VDT[facility] #### [facility] [address] [place] [address] Dr. Kesha Aguero CAST NONE SEEN Normal NONE SEEN [facility] Comment on above: Performed By: #### C [facility] #### [facility] [address] [place] [address] Dr. Kesha Aguero Crystals LM Nom (Urine sed) NONE SEEN Normal NONE SEEN [facility] Comment on above: Performed By: #### C [facility] #### [facility] [address] [place] [address] Dr. Kesha Aguero Epithelial cells LM Ql (Urine sed) FEW Abnormal NONE SEEN /RARE [facility] Comment on above: Performed By: #### C VDT[facility] #### [facility] [address] [place] [address] Dr. Kehsa Aguero MUCOUS NONE SEEN Normal NONE SEEN [facility] Comment on above: Performed By: #### C [facility] #### [facility] [address] [place] [address] Dr. Kesha Aguero RBC 0-2 Normal 0-2 [facility] Comment on above: Performed By: #### C [facility] #### [facility] [address] [place] [address] Dr. Kesha Aguero WBC 2-5 Abnormal NONE SEEN [facility] Comment on above: Performed By: #### C V[facility] #### [facility] [address] [place] [address] Dr. Kesha Aguero XR DEXA BONE DENSITYon [...] by: LOUIS [place] Date: 2022-09-29 12:45 Normal [facility] CT HEAD WO CONon 08-29-2022 CT HEAD [...] EDWIGE ZAVALETA Date: 2022-08-29 14:04 Normal [facility] POINT OF CARE GLUCOSEon 08-02 Glucose [Mass/Vol] 279 mg/dL Critically high 74-106 [facility] Comment on above: Performed By: #### C V[facility] #### [facility] [address] [place] [address] Dr. Kesha Aguero Glucose [Mass/Vol] 65 mg/dL Critically low 74-106 [facility] Comment on above: Performed By: #### C V[facility] #### [facility] [address] [place] [address] Dr. Kesha Aguero BNPon 08-28-2022 Natriuretic peptide B (Bld) [Mass/Vol] 673.0 pg/mL Normal <=1,800.0 [facility] Comment on above: Performed By: #### C [facility] #### [facility] Laboratory [address] [place] [address] Dr. Kesha Aguero CARDIAC KARLIE ADMITon 022 CK [Catalytic activity/Vol] 33 U/L Normal 26-192 [facility] Comment on above: Performed By: #### C VDTBH #### [facility] [address] [place] [address] Dr. Kesha Aguero CK.MB [Mass/Vol] 0.58 ng/mL Normal <=3.60 [facility] Comment on above: Performed By: #### C VDTBH #### [facility] [address] [place] [address] Dr. Kesha Aguero HSTROP 11.2 pg/mL Normal 4.0-51.3 [facility] Comment on above: Result Comment: CUT- OFF POINTS HAVE BEEN ESTABLISHED BASED ON THE FOURTH UNIVERSAL DEFINITIONS OF MYOCARDIAL INFARCTION. THE UPPER REFERENCE LIMIT (URL) OF TROPONIN, DEFINED THE 99TH PERCENTILE OF cTnI DISTRIBUTION IN A REFERENCE POPULATION, HAS BEEN CONFIRMED THE DECISION THRESHOLD FOR [place] DIAGNOSIS. Performed By: #### C VDTBH #### [facility] [address] [place] [address] Dr. Kesha Aguero ELIAS 48 ng/mL Normal 9-82 [facility] Comment on above: Performed By: #### C VDTBH #### [facility] [address] [place] [address] Dr. Kesha Aguero CBC AUTO DIFFon 08-28-2022 BASO # 0.1 103/ul Normal 0.0-0.1 [facility] Comment on above: Performed By: #### C VDTBH #### [facility] [address] [place] [address] Dr. Kesha Aguero Basophils/100 WBC (Bld) 0.6 % Normal 0.2-2.0 [facility] Comment on above: Performed By: #### C VDTBH #### [facility] [address] [place] [address] Dr. Kesha Aguero EO # 0.2 103/ul Normal 0.0-0.7 [facility] Comment on above: Performed By: #### C VDTBH #### [facility] [address] [place] [address] Dr. Kesha Aguero Eosinophils/100 WBC (Bld) 2.3 % Normal 0.9-7.0 [facility] Comment on above: Performed By: #### C VDTBH #### [facility] [address] [place] [address] Dr. Kesha Aguero Erythrocyte distribution width (RBC) [Ratio] 15.7 % Critically high 11.0-15.0 [facility] Comment on above: Performed By: #### C VDTBH #### [facility] [address] [place] [address] Dr. Kesha Aguero Hematocrit (Bld) [Volume fraction] 44.6 % Normal 36.0-48.0 [facility] Comment on above: Performed By: #### C VDTBH #### [facility] [address] [place] [address] Dr. Kesha Aguero Hemoglobin (Bld) [Mass/Vol] 14.4 g/dL Normal 12.0-16.0 [facility] Comment on above: Performed By: #### C VDTBH #### [facility] [address] [address] [address] Kesha Aguero IG # 0.02 10e3/ul Normal 0.00-0.03 [facility] Comment on above: Performed By: #### C VDTBH #### [facility] [address] [address] [address] Kesha Aguero IG % 0.3 % Normal 0.0-0.5 [facility] Comment on above: Performed By: #### C VDTBH #### [facility] [address] [address] [address] Kesha Aguero LYMPH # 3.5 103/ul Normal 1.2-3.8 [facility] Comment on above: Performed By: #### C VDTBH #### [facility] [address] [place] [address] Dr. Kesha Aguero Lymphocytes/100 WBC (Bld) 43.6 % Normal 20.5-60.0 [facility] Comment on above: Performed By: #### C VDTBH #### [facility] [address] [place] [address] Dr. Kesha Aguero MANUAL DIFF REQ NO Normal [facility] Comment on above: Performed By: #### C VDTBH #### [facility] [address] [place] [address] Dr. Kesha Aguero MCH (RBC) [Entitic mass] 25.9 pg Critically low 26.7-34 .0 [facility] Comment on above: Performed By: #### C VDTBH #### [facility] [address] [place] [address] Dr. Kesha Aguero MCHC (RBC) [Mass/Vol] 32.3 g/dL Normal 29.9-35.2 [facility] Comment on above: Performed By: #### C VDTBH #### [facility] [address] [place] [address] Dr. Kesha Aguero MCV (RBC) [Entitic vol] 80.4 fL Critically low 81.0-99. 0 [facility] Comment on above: Performed By: #### C VDTBH #### [facility] [address] [place] [address] Dr. Kesha Aguero MONO # 0.5 103/ul Normal 0.3-0.8 [facility] Comment on above: Performed By: #### C VDTBH #### [facility] [address] [place] [address] Dr. Kesha Aguero Monocytes/100 WBC (Bld) 6.0 % Normal 1.7-12.0 [facility] Comment on above: Performed By: #### C VDTBH #### [facility] [address] [place] [address] Dr. Kesha Aguero NEUT # 3.8 103/ul Normal 1.4-6.5 [facility] Comment on above: Performed By: #### C VDTBH #### [facility] [address] [place] [address] Dr. Kesha Aguero Neutrophils/100 WBC (Bld) 47.2 % Normal 43.0-75.0 [facility] Comment on above: Performed By: #### C VDTBH #### [facility] [address] [place] [address] Dr. Kesha Aguero Platelet mean volume (Bld) [Entitic vol] 9.7 fL Normal 9.5-13.5 [facility] Comment on above: Performed By: #### C VDTBH #### [facility] [address] [place] [address] Dr. Kesha Aguero PLT 269 103/ul Normal 150-450 [facility] Comment on above: Performed By: #### C VDTBH #### [facility] [address] [place] [address] Dr. Kesha Aguero RBC 5.55 106/ul Critically high 4.20-5.40 [facility] Comment on above: Performed By: #### C VDTBH #### [facility] [address] [place] [address] Dr. Kesha Aguero WBC 8.0 103/ul Normal 4.0-11.0 [facility] Comment on above: Performed By: #### C VDTBH #### [facility] [address] [place] [address] Dr. Kesha Aguero [facility] SARS-CoV-2 (COVID-19) RNA YARA+probe Ql (Unsp spec) Not detected Normal NOT DETECTED [facility] Comment on above: Result Comment: [...] for this test is supported by the Supervisor [employer] of Health and Human Service's declaration that [...] used). Performed By: #### C VDTBH #### [facility] [address] [place] [address] Dr. Kesha Aguero POINT OF CARE GLUCOSEon 08-01 Glucose [Mass/Vol] 157 mg/dL Critically high 74-106 [facility] Comment on above: Performed By: #### D DIM #### [facility] [address] [place] [address] Dr. Kesha Aguero Glucose [Mass/Vol] 170 mg/dL Critically high 74-106 [facility] Comment on above: Performed By: #### C VDTBH #### [facility] [address] [place] [address] Dr. Kesha Aguero PROF CHEM 8 (BAS METB)on Anion gap [Moles/Vol] 14.2 mmol/L Normal [facility] Comment on above: Performed By: #### C VDTBH #### [facility] [address] [address] [address] Kesha Aguero Calcium [Mass/Vol] 9.8 mg/dL Normal 8.5-10.1 [facility] Comment on above: Performed By: #### C VDTBH #### [facility] [address] [address] [address] Kesha Aguero Chloride [Moles/Vol] 104 mmol/L Normal 98-107 [facility] Comment on above: Performed By: #### C VDTBH #### [facility] [address] [address] [address] Kesha Aguero CO2 [Moles/Vol] 25.6 mmol/L Normal 21.0-32.0 [facility] Comment on above: Performed By: #### C VDTBH #### [facility] [address] [address] [address] Kesha Aguero Creatinine [Mass/Vol] 1.00 mg/dL Normal 0.55-1.02 [facility] Comment on above: Performed By: #### C VDTBH #### [facility] [address] [address] [address] Kesha Aguero EGFR-AF FILIPINO >60 Normal >=60 [facility] Comment on above: Performed By: #### C VDTBH #### [facility] [address] [address] [address] Kesha Aguero EGFR-NON AF FILIPINO 53 mL/min/1.73m2 Critically low >=60 [facility] Comment on above: Performed By: #### C VDTBH #### [facility] [address] [address] [address] Kesha Aguero Glucose [Mass/Vol] 151 mg/dL Critically high 74-106 [facility] Comment on above: Performed By: #### C VDTBH #### [facility] [address] [address] [address] Kesha Aguero Potassium [Moles/Vol] 3.8 mmol/L Normal 3.5-5.1 [facility] Comment on above: Performed By: #### C VDTBH #### [facility] [address] [place] [address] Dr. Kesha Aguero Sodium [Moles/Vol] 140 mmol/L Normal 136-145 [facility] Comment on above: Performed By: #### C VDTBH #### [facility] [address] [place] [address] Dr. Kesha Aguero Urea nitrogen [Mass/Vol] 19.0 mg/dL Critically high 7.0-18 .0 [facility] Comment on above: Performed By: #### C VDTBH #### [facility] [address] [place] [address] Dr. Kesha Aguero Urea nitrogen/Creatinine [Mass ratio] 19.0 mg/mg Normal [facility] Comment on above: Performed By: #### C VDTBH #### [facility] [address] [place] [address] Dr. Kesha Aguero PROTIMEon 08-28-2022 INR Coag (PPP) [Relative time] 0.97 {INR} Normal [facility] Comment on above: Performed By: #### C VDTBH #### [facility] [address] [place] [address] Dr. Kesha Aguero INR GUIDELINES SEE BELOW Normal [facility] Comment on above: Result Comment: GUY RED INR: 2.0 - 3.0 CONDITIONS NOT LISTED BELOW 2.5 - 3.5 FOR PROSTHETIC HEART VALVE REPLACEMENT 2.5 - 3.5 RECURRENT THROMBOSIS Performed By: #### C VDTBH #### [facility] [address] [place] [address] Dr. Kesha Aguero PT Coag (PPP) [Time] 10.5 s Normal 9.0-11.6 [facility] Comment on above: Performed By: #### C VDTBH #### [facility] [address] [place] [address] Dr. Kesha Aguero PTTon 08-28-2022 aPTT Coag (Bld) [Time] 27.1 s Normal 22.3-36.2 [facility] Comment on above: Performed By: #### C VDTBH #### [facility] [address] [place] [address] Dr. Kesha Aguero TROPONIN, HIGH SENSITIVITYon 08-28-2022 HSTROP 14.8 pg/mL Normal 4.0-51.3 [facility] Comment on above: Result Comment: CUT- OFF POINTS HAVE BEEN ESTABLISHED BASED ON THE FOURTH UNIVERSAL DEFINITIONS OF MYOCARDIAL INFARCTION. THE UPPER REFERENCE LIMIT (URL) OF TROPONIN, DEFINED THE 99TH PERCENTILE OF cTnI DISTRIBUTION IN A REFERENCE POPULATION, HAS BEEN CONFIRMED THE DECISION THRESHOLD FOR [place] DIAGNOSIS. Performed By: #### C VDTBH #### [facility] [address] [place] [address] Dr. Kesha Aguero HSTROP 13.5 pg/mL Normal 4.0-51.3 [facility] Comment on above: Result Comment: CUT- OFF POINTS HAVE BEEN ESTABLISHED BASED ON THE FOURTH UNIVERSAL DEFINITIONS OF MYOCARDIAL INFARCTION. THE UPPER REFERENCE LIMIT (URL) OF TROPONIN, DEFINED THE 99TH PERCENTILE OF cTnI DISTRIBUTION IN A REFERENCE POPULATION, HAS BEEN CONFIRMED THE DECISION THRESHOLD FOR [place] DIAGNOSIS. Performed By: #### D DIM #### [facility] [address] [place] [address] Dr. Kesha Aguero US JCARLOS DOP LEG [...] by: CARMEN LOTT Date: 2022-08-28 13:22 Normal [facility] XR CHEST 1 Von 08-28-2022 XR CHEST 1 V EXAM: CHEST 1 VIEW HISTORY: CHEST PAIN, UNSPECIFIED TECHNIQUE: Chest, one view. COMPARISON: 06/06/2022. FINDINGS: Lungs are clear. No focal consolidation, pleural effusion, or pneumothorax. Pulmonary vasculature is within normal limits. Cardiomediastinal silhouette is normal. IMPRESSION: 1. No acute cardiopulmonary disease. Electronically authenticated by: JEAN-CLAUDE OLEARY Date: 2022-08-28 08:34 Normal [facility] CT ABDOMEN WO/W CONon 2021 CT ABDOMEN [...] by: LOUIS QUINTANA Date: 2022-08-18 22:44 Normal [facility] CREATININEon 08-18-2022 Creatinine [Mass/Vol] 1.04 mg/dL Critically high 0.55-1.02 [facility] Comment on above: Performed By: #### C VDTBH #### [facility] [address] [address] [address] Kesha Aguero EGFR-AF FILIPINO >60 Normal >=60 [facility] Comment on above: Performed By: #### C VDTBH #### [facility] [address] [place], [place] [address] Dr. Kesha Aguero EGFR-NON AF FILIPINO 51 mL/min/1.73m2 Critically low >=60 [facility] Comment on above: Performed By: #### C VDTBH #### [facility] [address] [place], [place] [address] Dr. Kesha Aguero ECHOCARDIO M/2D COMPLETEon 1 10-19-2021 ECHOCARDIO M/2D COMPLETE Patient: TERE ARAGON Exam Date: 08/18/2022 : 1940 Gender:F Ordering : TAYLOR CRISOSTOMO Admission #: [id number] Family : DR RODRICK BUTLER M.D. Order #: [id number] CLICK HERE TO VIEW EXAM ECHOCARDIOGRAM REPORT [...] M.D. on 08/21/2022 at 15:17 Normal [facility] ALDOSTERONE: RENIN RATIOon 1 - Aldos/Renin Ratio 2.5 Normal 0.0-30.0 [facility] Comment on above: Result Comment: Unit s: ng/dL per ng/mL/hr Performed By: #### A LDOREN #### [facility] [address] [address] [address] Kesha Aguero Aldosterone 7.4 ng/dL Normal 0.0-30.0 [facility] Comment on above: Performed By: #### A LDOREN #### [facility] [address] [address] [address] Kesha Aguero Renin Activity, Plasma 3.015 ng/mL/hr Normal 0.167-5.3 80 [facility] Comment on above: Performed By: #### A LDOREN #### [facility] [address] [place] [address] Dr. Kesha Aguero METANEPHRINES PLASMA FREEon 06-18-2022 Metanephrine, Pl 11.8 pg/mL Normal 0.0-88.0 [facility] Comment on above: Performed By: #### A CETON #### [facility] [address] [place] [address] Dr. Kesha Aguero Normetanephrine, Pl 103.3 pg/mL Normal 0.0-297.2 [facility] Comment on above: Performed By: #### A CETON #### [facility] [address] [place] [address] Dr. Kesha Aguero CORTISOLon 06-12-2022 Cortisol 5.5 ug/dL Normal [facility] Comment on above: Result Comment: Clement isol AM 6.2 - 19.4 Cortisol PM 2.3 - 11.9 Performed By: #### C VDTBH #### [facility] [address] [place] [address] Dr. Kesha Aguero PROF CHEM 8 (BAS METB)on Anion gap [Moles/Vol] 14.4 mmol/L Normal [facility] Comment on above: Performed By: #### A LDOREN #### [facility] [address] [place] [address] Dr. Kesha Aguero Calcium [Mass/Vol] 9.6 mg/dL Normal 8.5-10.1 [facility] Comment on above: Performed By: #### A LDOREN #### [facility] [address] [address] [address] Kesha Aguero Chloride [Moles/Vol] 103 mmol/L Normal 98-107 [facility] Comment on above: Performed By: #### A LDOREN #### [facility] [address] [address] [address] Kesha Aguero CO2 [Moles/Vol] 24.3 mmol/L Normal 21.0-32.0 [facility] Comment on above: Performed By: #### A LDOREN #### [facility] [address] [address] [address] Kesha Aguero Creatinine [Mass/Vol] 1.24 mg/dL Critically high 0.55-1.02 [facility] Comment on above: Performed By: #### A LDOREN #### [facility] [address] [address] [address] Kesha Aguero EGFR-AF FILIPINO 50 mL/min/1.73m2 Critically low >=60 [facility] Comment on above: Performed By: #### A LDOREN #### [facility] [address] [address] [address] Kesha Aguero EGFR-NON AF FILIPINO 41 mL/min/1.73m2 Critically low >=60 [facility] Comment on above: Performed By: #### A LDOREN #### [facility] [address] [address] [address] Kesha Aguero Glucose [Mass/Vol] 215 mg/dL Critically high 74-106 [facility] Comment on above: Performed By: #### A LDOREN #### [facility] [address] [address] [address] Kesha Aguero Potassium [Moles/Vol] 4.7 mmol/L Normal 3.5-5.1 [facility] Comment on above: Performed By: #### A LDOREN #### [facility] [address] [address] [address] Kesha Aguero Sodium [Moles/Vol] 137 mmol/L Normal 136-145 [facility] Comment on above: Performed By: #### A LDOREN #### [facility] [address] [address] [address] Kesha Aguero Urea nitrogen [Mass/Vol] 21.0 mg/dL Critically high 7.0-18 .0 [facility] Comment on above: Performed By: #### A LDOREN #### [facility] [address] [place] [address] Dr. Kesha Aguero Urea nitrogen/Creatinine [Mass ratio] 16.9 mg/mg Normal [facility] Comment on above: Performed By: #### A LDOREN #### [facility] [address] [place] [address] Dr. Kesha Aguero CARDIAC KARLIE 3-6on 2 CK [Catalytic activity/Vol] 77 U/L Normal 26-192 [facility] Comment on above: Performed By: #### D DIM #### [facility] [address] [place] [address] Dr. Kesha Aguero CK.MB [Mass/Vol] 1.64 ng/mL Normal <=3.60 [facility] Comment on above: Performed By: #### D DIM #### [facility] [address] [place] [address] Dr. Kesha Aguero HSTROP 16.0 pg/mL Normal 4.0-51.3 [facility] Comment on above: Result Comment: CUT- OFF POINTS HAVE BEEN ESTABLISHED BASED ON THE FOURTH UNIVERSAL DEFINITIONS OF MYOCARDIAL INFARCTION. THE UPPER REFERENCE LIMIT (URL) OF TROPONIN, DEFINED THE 99TH PERCENTILE OF cTnI DISTRIBUTION IN A REFERENCE POPULATION, HAS BEEN CONFIRMED THE DECISION THRESHOLD FOR [place] DIAGNOSIS. Performed By: #### D DIM #### [facility] [address] [place] [address] Dr. Kesha Aguero CARDIAC KARLIE ADMITon 022 CK [Catalytic activity/Vol] 86 U/L Normal 26-192 [facility] Comment on above: Performed By: #### A CETON #### [facility] [address] [place] [address] Dr. Kesha Aguero CK.MB [Mass/Vol] 2.10 ng/mL Normal <=3.60 [facility] Comment on above: Performed By: #### A CETON #### [facility] [address] [place] [address] Dr. Kesha Aguero HSTROP 13.3 pg/mL Normal 4.0-51.3 [facility] Comment on above: Result Comment: CUT- OFF POINTS HAVE BEEN ESTABLISHED BASED ON THE FOURTH UNIVERSAL DEFINITIONS OF MYOCARDIAL INFARCTION. THE UPPER REFERENCE LIMIT (URL) OF TROPONIN, DEFINED THE 99TH PERCENTILE OF cTnI DISTRIBUTION IN A REFERENCE POPULATION, HAS BEEN CONFIRMED THE DECISION THRESHOLD FOR [place] DIAGNOSIS. Performed By: #### A CETON #### [facility] [address] [place] [address] Dr. Kesha Aguero ELIAS 78 ng/mL Normal 9-82 [facility] Comment on above: Performed By: #### A CETON #### [facility] [address] [place] [address] Dr. Kesha Aguero CBC AUTO DIFFon 06-06-2022 BASO # 0.0 103/ul Normal 0.0-0.1 [facility] Comment on above: Performed By: #### C VDTBH #### [facility] [address] [place] [address] Dr. Kesha Aguero Basophils/100 WBC (Bld) 0.4 % Normal 0.2-2.0 [facility] Comment on above: Performed By: #### C VDTBH #### [facility] [address] [place] [address] Dr. Kesha Aguero EO # 0.1 103/ul Normal 0.0-0.7 [facility] Comment on above: Performed By: #### C VDTBH #### [facility] [address] [place] [address] Dr. Kesha Aguero Eosinophils/100 WBC (Bld) 1.8 % Normal 0.9-7.0 [facility] Comment on above: Performed By: #### C VDTBH #### [facility] [address] [place] [address] Dr. Kesha Aguero Erythrocyte distribution width (RBC) [Ratio] 13.9 % Normal 11.0-15.0 [facility] Comment on above: Performed By: #### C VDTBH #### [facility] [address] [place] [address] Dr. Kesha Aguero Hematocrit (Bld) [Volume fraction] 40.7 % Normal 36.0-48.0 [facility] Comment on above: Performed By: #### C VDTBH #### [facility] [address] [place] [address] Dr. Kesha Aguero Hemoglobin (Bld) [Mass/Vol] 12.9 g/dL Normal 12.0-16.0 [facility] Comment on above: Performed By: #### C VDTBH #### [facility] [address] [place] [address] Dr. Kesha Aguero IG # 0.01 10e3/ul Normal 0.00-0.03 [facility] Comment on above: Performed By: #### C VDTBH #### [facility] [address] [place] [address] Dr. Kesha Aguero IG % 0.1 % Normal 0.0-0.5 [facility] Comment on above: Performed By: #### C VDTBH #### [facility] [address] [place] [address] Dr. Kesha Aguero LYMPH # 2.6 103/ul Normal 1.2-3.8 [facility] Comment on above: Performed By: #### C VDTBH #### [facility] [address] [place] [address] Dr. Kesha Aguero Lymphocytes/100 WBC (Bld) 33.6 % Normal 20.5-60.0 [facility] Comment on above: Performed By: #### C VDTBH #### [facility] [address] [place] [address] Dr. Kesha Aguero MANUAL DIFF REQ NO Normal [facility] Comment on above: Performed By: #### C VDTBH #### [facility] [address] [place] [address] Dr. Kesha Aguero MCH (RBC) [Entitic mass] 26.5 pg Critically low 26.7-34 .0 [facility] Comment on above: Performed By: #### C VDTBH #### [facility] [address] [place] [address] Dr. Kesha Aguero MCHC (RBC) [Mass/Vol] 31.7 g/dL Normal 29.9-35.2 [facility] Comment on above: Performed By: #### C VDTBH #### [facility] [address] [place] [address] Dr. Kesha Aguero MCV (RBC) [Entitic vol] 83.6 fL Normal 81.0-99.0 [facility] Comment on above: Performed By: #### C VDTBH #### [facility] [address] [place] [address] Dr. Kesha Aguero MONO # 0.6 103/ul Normal 0.3-0.8 [facility] Comment on above: Performed By: #### C VDTBH #### [facility] [address] [place] [address] Dr. Kesha Aguero Monocytes/100 WBC (Bld) 7.7 % Normal 1.7-12.0 [facility] Comment on above: Performed By: #### C VDTBH #### [facility] [address] [place] [address] Dr. Kesha Aguero NEUT # 4.3 103/ul Normal 1.4-6.5 [facility] Comment on above: Performed By: #### C VDTBH #### [facility] [address] [place] [address] Dr. Kesha Aguero Neutrophils/100 WBC (Bld) 56.4 % Normal 43.0-75.0 [facility] Comment on above: Performed By: #### C VDTBH #### [facility] [address] [place] [address] Dr. Kesha Aguero Platelet mean volume (Bld) [Entitic vol] 11.2 fL Normal 9.5-13.5 [facility] Comment on above: Performed By: #### C VDTBH #### [facility] [address] [place] [address] Dr. Kesha Aguero PLT 267 103/ul Normal 150-450 [facility] Comment on above: Performed By: #### C VDTBH #### [facility] [address] [place], [place] [address] Dr. Kesha Aguero RBC 4.87 106/ul Normal 4.20-5.40 [facility] Comment on above: Performed By: #### C VDTBH #### [facility] [address] [place], [place] [address] Dr. Kesha Aguero WBC 7.7 103/ul Normal 4.0-11.0 [facility] Comment on above: Performed By: #### C VDTBH #### [facility] [address] [place], [place] [address] Dr. Kesha Aguero CTA CHEST WO W [...] CHRISTINA MESSINA Date: 2022-06-06 03:54 Normal [facility] Covid-19 PCR (CVDTBH)on SARS-CoV-2 (COVID-19) RNA YARA+probe Ql (Unsp spec) Not detected Normal NOT DETECTED [facility] Comment on above: Result Comment: [...] for this test is supported by the [place] of Health and Human Service's declaration that [...] used). Performed By: #### C VDTBH #### [facility] [address] [address] [address] Kesha Aguero D-DIMERon 06-06-2022 D-DIMER 0.86 mg/L FEU Critically high <=0.59 [facility] Comment on above: Performed By: #### D DIM #### [facility] [address] [place], [place] [address] Dr. Kesha Aguero D-DIMER COMMENTS SEE BELOW Normal [facility] Comment on above: Result Comment: Incr [...] hospitalization. Performed By: #### D DIM #### [facility] [address] [address] [address] Kesha Aguero PROF CHEM 8 (BAS METB)on Anion gap [Moles/Vol] 13.1 mmol/L Normal [facility] Comment on above: Performed By: #### A CETON #### [facility] [address] [place] [address] Dr. Kesha Aguero Calcium [Mass/Vol] 10.0 mg/dL Normal 8.5-10.1 [facility] Comment on above: Performed By: #### A CETON #### [facility] [address] [address] [address] Kesha Aguero Chloride [Moles/Vol] 106 mmol/L Normal 98-107 [facility] Comment on above: Performed By: #### A CETON #### [facility] [address] [address] [address] Kesha Aguero CO2 [Moles/Vol] 24.9 mmol/L Normal 21.0-32.0 [facility] Comment on above: Performed By: #### A CETON #### [facility] [address] [address] [address] Kesha Aguero Creatinine [Mass/Vol] 1.14 mg/dL Critically high 0.55-1.02 [facility] Comment on above: Performed By: #### A CETON #### [facility] [address] [place] [address] Dr. Kesha Aguero EGFR-AF FILIPINO 55 mL/min/1.73m2 Critically low >=60 [facility] Comment on above: Performed By: #### A CETON #### [facility] [address] [address] [address] Kesha Aguero EGFR-NON AF FILIPINO 46 mL/min/1.73m2 Critically low >=60 [facility] Comment on above: Performed By: #### A CETON #### [facility] [address] [address] [address] Kesha Aguero Glucose [Mass/Vol] 181 mg/dL Critically high 74-106 [facility] Comment on above: Performed By: #### A CETON #### [facility] [address] [address] [address] Kesha Aguero Potassium [Moles/Vol] 4.0 mmol/L Normal 3.5-5.1 [facility] Comment on above: Performed By: #### A CETON #### [facility] [address] [address] [address] Kesha Aguero Sodium [Moles/Vol] 140 mmol/L Normal 136-145 [facility] Comment on above: Performed By: #### A CETON #### [facility] [address] [address] [address] Kesha Aguero Urea nitrogen [Mass/Vol] 24.0 mg/dL Critically high 7.0-18 .0 [facility] Comment on above: Performed By: #### A CETON #### [facility] [address] [place] [address] Dr. Kesha Aguero Urea nitrogen/Creatinine [Mass ratio] 21.1 mg/mg Normal [facility] Comment on above: Performed By: #### A CETON #### [facility] [address] [place] [address] Dr. Kesha Aguero TROPONIN, HIGH SENSITIVITYon 06-06-2022 HSTROP 16.7 pg/mL Normal 4.0-51.3 [facility] Comment on above: Result Comment: CUT- OFF POINTS HAVE BEEN ESTABLISHED BASED ON THE FOURTH UNIVERSAL DEFINITIONS OF MYOCARDIAL INFARCTION. THE UPPER REFERENCE LIMIT (URL) OF TROPONIN, DEFINED THE 99TH PERCENTILE OF cTnI DISTRIBUTION IN A REFERENCE POPULATION, HAS BEEN CONFIRMED THE DECISION THRESHOLD FOR [place] DIAGNOSIS. Performed By: #### A LDOREN #### [facility] [address] [place] [address] Dr. Kesha Aguero XR CHEST 1 Von [...] by: CHRISTINA MESSINA Date: 2022-06-06 02:23 Normal [facility] Activated partial thrombopla stin time (aPTT) in platelet poor plasma by coagulation aOrdered By: Herminia Lawler on 05-11-2022 aPTT Coag (PPP) [Time] 43.7 s 25.1-36.5 [facility] Creatinine and Glomerular fi ltration rate.predicted panel (S/P/Bld)Ordered By: Herminia Lawler on 05-11-2022 Creatinine [Mass/Vol] 0.97 mg/dL 0.44-1.[address] [facility] Estimated glomerular filtrat ion rate (GFR) non- AmericanOrdered By: Herminia Lawler on 05-11-2022 GFR/1.73 sq M.predicted among non-blacks MDRD (S/P/Bld) [Vol rate/Area] 55 mL/Min [facility] Glucose Glucometer (BldC) [M ass/Vol]Ordered By: Herminia Lawler on 05-11-2022 Glucose [Mass/Vol] 281 mg/dL [facility] Comment on above: Random Glucose Refer ence Range is dependent on time and content of last meal. Glucose of more than 200 mg/dL in a nonstressed, ambulatory subject supports the diagnosis of Diabetes Mellitus. Laboratory - Chemistry and C hemistry - challengeOrdered By: Herminia Lawler on 05-11-2022 Magnesium [Mass/Vol] 1.7 mg/dL 1.6-2.6 [facility] No Panel InformationOrdered By: Herminia Lawler on 05-11-2022 Estimated GFR () > 60 mL/Min [facility] Comment on above: GFR estimated refere nce range: According to KDOQI guidelines, <60 ml/min/1.73m2 is sufficient to diagnose a patient with chronic kidney disease. Pharmacy Creatinine Clearance (Chem 42.73 [facility] Serum or plasma anion gap de terminationOrdered By: Herminia Lawler on 05-11-2022 Anion gap [Moles/Vol] 13.6 mmol/L 6.0-15.0 [facility] Serum or plasma calcium kristi urement (mass/volume)Ordered By: Herminia Lawler on 05-11-2022 Calcium [Mass/Vol] 9.8 mg/dL 8.2-10.2 [facility] Serum or plasma chloride dorys surement (moles/volume)Ordered By: Herminia Lawler on 05-11-2022 Chloride [Moles/Vol] 107 mmol/L 95-114 [facility] Serum or plasma glucose kristi urement (mass/volume)Ordered By: Herminia Lawler on 05-11-2022 Glucose [Mass/Vol] 187 mg/dL 70-100 [facility] Comment on above: ADA recommended refe rence range Random Glucose Reference Range is dependent on time and content of last meal. Glucose of more than 200 mg/dL in a nonstressed, ambulatory subject supports the diagnosis of Diabetes Mellitus. Serum or plasma potassium me asurement (moles/volume)Ordered By: Herminia Lawler on 05-11-2022 Potassium [Moles/Vol] 3.8 mmol/L 3.5-5.[address] [facility] Serum or plasma sodium measu rement (moles/volume)Ordered By: Herminia Lawler on 05-11-2022 Sodium [Moles/Vol] 137 mmol/L 136-146 [facility] Serum or plasma total carbon dioxide measurement (moles/volume)Ordered By: Herminia Lawler on 05-11-2022 CO2 [Moles/Vol] 20.2 mmol/L 22.0-30.0 [facility] Serum or plasma urea nitroge n measurement (mass/volume)Ordered By: Herminia Lawler on 05-11-2022 Urea nitrogen [Mass/Vol] 21 mg/dL 9-23 [facility] Troponin I.cardiac [Mass/vol ume] in Serum or Plasma by High sensitivity methodOrdered By: Itz Arguello on 05-11-2022 Troponin I.cardiac High sensitivity method [Mass/Vol] 97 pg/mL 0-15 [facility] Comment on above: Results called at 0602 on 05/11/22 Albumin [Mass/volume] in Ser um or PlasmaOrdered By: Herminia Perezomar on 05-10-2022 Albumin [Mass/Vol] 2.9 g/dL 3.2-5.5 [facility] Basophils Auto (Bld) [#/Vol] Ordered By: Obdarindaethan Perezomar on 05-10-2022 Basophils (Bld) [#/Vol] 0.2 10*3/uL 0.0-0.2 [facility] Basophils/100 WBC Auto (Bld) Ordered By: Herminia Perezomar on 05-10-2022 Basophils/100 WBC (Bld) 2.8 % . [facility] Blood hemoglobin measurement (mass/volume)Ordered By: Herminia Perezomar on 05-10-2022 Hemoglobin (Bld) [Mass/Vol] 12.4 g/dL 11.8-15.4 [facility] Blood leukocytes automated c ount (number/volume)Ordered By: Herminia Lawler on 05-10-2022 WBC (Bld) [#/Vol] 7.0 10*3/uL 4.5-11.0 [facility] Creatine kinase [Enzymatic a ctivity/volume] in Serum or PlasmaOrdered By: Darrion Gilbert on 05-10-2022 CK [Catalytic activity/Vol] 48 U/L 22- [facility] Eosinophils Auto (Bld) [#/Vo l]Ordered By: Obdarindaethan Perezomar on 05-10-2022 Eosinophils (Bld) [#/Vol] 0.2 10*3/uL 0.0-0.45 [facility] Eosinophils/100 WBC Auto (Bl d)Ordered By: Obdarindaethan Perezomar on 05-10-2022 Eosinophils/100 WBC (Bld) 2.7 % . [facility] Erythrocyte distribution wid th Auto (RBC) [Ratio]Ordered By: Herminia Lawler on 05-10-2022 Erythrocyte distribution width (RBC) [Ratio] 15.2 % 11.9-15.3 [facility] Globulin Calc (S) [Mass/Vol] Ordered By: Obbrent Perezomar on 05-10-2022 Globulin (S) [Mass/Vol] 2.9 g/dL [facility] Hematocrit Auto (Bld) [Volum e fraction]Ordered By: Herminia Perezomar on 05-10-2022 Hematocrit (Bld) [Volume fraction] 37.8 % 34.0-46.4 [facility] - Hematology and Cell countsOrdered By: Herminia Tysonr on 05-10-2022 Nucleated RBC/100 WBC (Bld) [Ratio] 0.3 % 0-0.5 [facility] Lymphocytes Auto (Bld) [#/Vo l]Ordered By: Herminia Perezomar on 05-10-2022 Lymphocytes (Bld) [#/Vol] 3.0 10*3/uL 1.00-4.8 [facility] Lymphocytes/100 WBC Auto (Bl d)Ordered By: Herminia Perezomar on 05-10-2022 Lymphocytes/100 WBC (Bld) 42.4 % . [facility] MCH Auto (RBC) [Entitic mass ]Ordered By: Herminia Perezomar on 05-10-2022 MCH (RBC) [Entitic mass] 26.4 pg 24.7-34.3 [facility] MCHC Auto (RBC) [Mass/Vol]Or dered By: Obdarindaethan Perezomar on 05-10-2022 MCHC (RBC) [Mass/Vol] 32.8 g/dL 32.0-35.0 [facility] MCV Auto (RBC) [Entitic vol] Ordered By: Herminia Perezomar on 05-10-2022 MCV (RBC) [Entitic vol] 80.5 fL 80-[address] [facility] Monocytes Auto (Bld) [#/Vol] Ordered By: Herminia Chrisomar on 05-10-2022 Monocytes (Bld) [#/Vol] 0.4 10*3/uL 0.0-0.8 [facility] Monocytes/100 WBC Auto (Bld) Ordered By: Obdarindah Daromar on 05-10-2022 Monocytes/100 WBC (Bld) 6.4 % . [facility] Neutrophils Auto (Bld) [#/Vo l]Ordered By: Obaydah Daromar on 05-10-2022 Neutrophils (Bld) [#/Vol] 3.2 10*3/uL 1.8-7.7 [facility] Neutrophils/100 WBC Auto (Bl d)Ordered By: Obaydah Daromar on 05-10-2022 Neutrophils/100 WBC (Bld) 45.7 % . [facility] No Panel InformationOrdered By: Herminia Perezomar on 05-10-2022 Bedside Glucose Comment Glu2: cleaned meter [facility] Platelet mean volume Auto (B ld) [Entitic vol]Ordered By: Obdarindah Daromar on 05-10-2022 Platelet mean volume (Bld) [Entitic vol] 8.3 fL 6.3-10.7 [facility] Platelets Auto (Bld) [#/Vol] Ordered By: Obdarindah Chrisomar on 05-10-2022 Platelets (Bld) [#/Vol] 236 10*3/uL 150-450 [facility] Protein [Mass/volume] in Ser um or PlasmaOrdered By: Obdarindah Chrisomar on 05-10-2022 Protein [Mass/Vol] 5.8 g/dL 6.1-7.9 [facility] RBC Auto (Bld) [#/Vol]Ordere d By: Obaydah Daromar on 05-10-2022 RBC (Bld) [#/Vol] 4.70 10*6/uL 3.60-5.00 [facility] Serum or plasma alanine landa otransferase measurement without P-5'-P (enzymatic activiOrdered By: Obdarindaethan Perezomar on 05-10-2022 ALT No additional P-5'-P [Catalytic activity/Vol] 18 U/L 1060 [facility] Serum or plasma albumin/glob ulin mass ratioOrdered By: Herminia Lawler on 05-10-2022 Albumin/Globulin [Mass ratio] 1.0 {ratio} [facility] Serum or plasma alkaline jama sphatase measurement (enzymatic activity/volume)Ordered By: Herminia Lawler on 05-10-2022 ALP [Catalytic activity/Vol] 75 U/L 32-92 [facility] Serum or plasma aspartate am inotransferase measurement (enzymatic activity/volume)Ordered By: Herminia Lawler on 05-10-2022 AST [Catalytic activity/Vol] 18 U/L 10 [facility] Serum or plasma creatine kin ase MB (CKMB)/total creatine kinase (CK) ratio by calculaOrdered By: Darrion Gilbert on 05-10-2022 CK.MB Calc [Catalytic fraction] 6.8 % 0.00-2.50 [facility] Serum or plasma creatine kin ase MB measurement (mass/volume)Ordered By: Darrion Gilbert on 05-10-2022 CK.MB [Mass/Vol] 3.3 ng/mL 0.6-6.3 [facility] Serum or plasma total biliru bin measurement (mass/volume)Ordered By: Herminia Lawler on 05-10-2022 Bilirubin [Mass/Vol] 0.4 mg/dL 0.3-1.2 [facility] ACETONE SERUMon 05-09-2022 ACETONE Negative Normal NEGATIVE [facility] Comment on above: Performed By: #### A CETON #### [facility] [address] [place] [address] Dr. Kesha Aguero CBC AUTO DIFFon 05-09-2022 BASO # 0.0 103/ul Normal 0.0-0.1 [facility] Comment on above: Performed By: #### A CETON #### [facility] [address] [place] [address] Dr. Kesha Aguero Basophils/100 WBC (Bld) 0.5 % Normal 0.2-2.0 [facility] Comment on above: Performed By: #### A CETON #### [facility] [address] [place] [address] Dr. Kesha Aguero EO # 0.1 103/ul Normal 0.0-0.7 [facility] Comment on above: Performed By: #### A CETON #### [facility] [address] [place] [address] Dr. Kesha Aguero Eosinophils/100 WBC (Bld) 1.5 % Normal 0.9-7.0 [facility] Comment on above: Performed By: #### A CETON #### [facility] [address] [place] [address] Dr. Kesha Aguero Erythrocyte distribution width (RBC) [Ratio] 14.1 % Normal 11.0-15.0 [facility] Comment on above: Performed By: #### A CETON #### [facility] [address] [place] [address] Dr. Kesha Aguero Hematocrit (Bld) [Volume fraction] 40.7 % Normal 36.0-48.0 [facility] Comment on above: Performed By: #### A CETON #### [facility] [address] [place] [address] Dr. Kesha Aguero Hemoglobin (Bld) [Mass/Vol] 13.0 g/dL Normal 12.0-16.0 [facility] Comment on above: Performed By: #### A CETON #### [facility] [address] [place] [address] Dr. Kesha Aguero IG # 0.01 10e3/ul Normal 0.00-0.03 [facility] Comment on above: Performed By: #### A CETON #### [facility] [address] [place] [address] Dr. Kesha Aguero IG % 0.1 % Normal 0.0-0.5 [facility] Comment on above: Performed By: #### A CETON #### [facility] [address] [place] [address] Dr. Kesha Aguero LYMPH # 2.6 103/ul Normal 1.2-3.8 [facility] Comment on above: Performed By: #### A CETON #### [facility] [address] [place] [address] Dr. Kesha Aguero Lymphocytes/100 WBC (Bld) 33.0 % Normal 20.5-60.0 [facility] Comment on above: Performed By: #### A CETON #### [facility] [address] [place] [address] Dr. Kesha Aguero MANUAL DIFF REQ NO Normal [facility] Comment on above: Performed By: #### A CETON #### [facility] [address] [place] [address] Dr. Kesha Aguero MCH (RBC) [Entitic mass] 26.5 pg Critically low 26.7-34 .0 [facility] Comment on above: Performed By: #### A CETON #### [facility] [address] [place] [address] Dr. Kesha Aguero MCHC (RBC) [Mass/Vol] 31.9 g/dL Normal 29.9-35.2 [facility] Comment on above: Performed By: #### A CETON #### [facility] [address] [place] [address] Dr. Kesha Aguero MCV (RBC) [Entitic vol] 82.9 fL Normal 81.0-99.0 [facility] Comment on above: Performed By: #### A CETON #### [facility] [address] [place] [address] Dr. Kesha Aguero MONO # 0.6 103/ul Normal 0.3-0.8 [facility] Comment on above: Performed By: #### A CETON #### [facility] [address] [place] [address] Dr. Kesha Aguero Monocytes/100 WBC (Bld) 7.1 % Normal 1.7-12.0 [facility] Comment on above: Performed By: #### A CETON #### [facility] [address] [place] [address] Dr. Kesha Aguero NEUT # 4.5 103/ul Normal 1.4-6.5 [facility] Comment on above: Performed By: #### A CETON #### [facility] [address] [address] [address] Kesha Aguero Neutrophils/100 WBC (Bld) 57.8 % Normal 43.0-75.0 [facility] Comment on above: Performed By: #### A CETON #### [facility] [address] [place] [address] Dr. Kesha Aguero Platelet mean volume (Bld) [Entitic vol] 10.4 fL Normal 9.5-13.5 [facility] Comment on above: Performed By: #### A CETON #### [facility] [address] [place] [address] Dr. Kesha Aguero PLT 208 103/ul Normal 150-450 [facility] Comment on above: Performed By: #### A CETON #### [facility] [address] [place] [address] Dr. Kesha Aguero RBC 4.91 106/ul Normal 4.20-5.40 [facility] Comment on above: Performed By: #### A CETON #### [facility] [address] [place] [address] Dr. Kesha Aguero WBC 7.9 103/ul Normal 4.0-11.0 [facility] Comment on above: Performed By: #### A CETON #### [facility] [address] [place] [address] Dr. Kesha Aguero CTA ABD/PELVIS WO W [...] by: [place] Date: 2022-05-09 07:19 Normal [facility] Cholesterol [Mass/volume] in Serum or PlasmaOrdered By: Herminia Lawler on 05-09-2022 Cholesterol [Mass/Vol] 112 mg/dL 140-200 [facility] Comment on above: Chol less than 200 m g/dl low risk Chol 201-239 mg/dl borderline risk Chol 240 mg/dl and greater high risk Cholesterol in LDL Calc [Mas s/Vol]Ordered By: Herminia Lawler on 05-09-2022 Cholesterol in LDL [Mass/Vol] 51 mg/dL 0-100 [facility] Comment on above: LDL ATP III CLASSIFI CATION LDL less than 100 mg/dL Optimal LDL 100-129 mg/dL Near or above optimal LDL 130-159 mg/dL Borderline high LDL 160-189 mg/dL High LDL greater than 189 mg/dL Very high Cholesterol in VLDL Calc [Ma ss/Vol]Ordered By: Herminia Lawler on 05-09-2022 Cholesterol in VLDL [Mass/Vol] 31 mg/dL [facility]on SARS-CoV-2 (COVID-19) RNA YARA+probe Ql (Unsp spec) Not detected Normal NOT DETECTED [facility] Comment on above: Result Comment: [...] for this test is supported by the [employer] [place] [employer] [place] of Health and Human Service's declaration that [...] longer be used). Performed By: #### C [facility] #### [facility] [address] [place] [address] Dr. Kesha Aguero Glucose mean value [Mass/vol ume] in Blood Estimated from glycated hemoglobinOrdered By: Herminia Lawler on 05-09-2022 Average glucose Estimated from glycated hemoglobin (Bld) [Mass/Vol] 263 mg/dL [facility] Hemoglobin A1c percentageOrd ered By: Herminia Lawler on 05-09-2022 HbA1c (Bld) [Mass fraction] 10.8 % 4.3-5.6 [facility] Comment on above: Increased risk for d iabetes: 5.7 - 6.4 diabetes: >6.4 glycemic control for adults with diabetes: <7.0 LIPASEon 05-09-2022 Lipase [Catalytic activity/Vol] 287.0 U/L Normal 73.0-393.0 [facility] Comment on above: Performed By: #### C VDTBH #### [facility] [address] [address] [address] Kesha Aguero Laboratory - CoagulationOrde red By: Herminia Lawler on 05-09-2022 PT Coag (PPP) [Time] 11.6 s 9.0-12.9 [facility] POINT OF CARE GLUCOSEon Glucose [Mass/Vol] 387 mg/dL Critically high 74-106 [facility] Comment on above: Performed By: #### C VDTBH #### [facility] [address] [place] [address] Dr. Kesha Aguero Glucose [Mass/Vol] 432 mg/dL Critically high 74-106 [facility] Comment on above: Performed By: #### P OCGLUC #### [facility] [address] [address] [address] Kesha Aguero PROF 14(COMP METB)on 022 Albumin [Mass/Vol] 3.5 g/dL Normal 3.4-5.0 [facility] Comment on above: Performed By: #### C VDTBH #### [facility] [address] [place] [address] Dr. Kesha Aguero Albumin/Globulin [Mass ratio] 1.0 {ratio} Normal [facility] Comment on above: Performed By: #### C VDTBH #### [facility] [address] [place] [address] Dr. Kesha Aguero ALP [Catalytic activity/Vol] 115 U/L Normal 46-116 [facility] Comment on above: Performed By: #### C VDTBH #### [facility] [address] [place] [address] Dr. Kesha Aguero ALT [Catalytic activity/Vol] 24 U/L Normal 14-59 [facility] Comment on above: Performed By: #### C VDTBH #### [facility] [address] [address] [address] Kesha Aguero Anion gap [Moles/Vol] 15.3 mmol/L Normal [facility] Comment on above: Performed By: #### C VDTBH #### [facility] [address] [address] [address] Kesha Aguero AST [Catalytic activity/Vol] 16 U/L Normal 15-37 [facility] Comment on above: Performed By: #### C VDTBH #### [facility] [address] [place] [address] Dr. Kesha Aguero Bilirubin [Mass/Vol] 0.4 mg/dL Normal 0.2-1.0 [facility] Comment on above: Performed By: #### C VDTBH #### [facility] [address] [place] [address] Dr. Kesha Aguero Calcium [Mass/Vol] 9.6 mg/dL Normal 8.5-10.1 [facility] Comment on above: Performed By: #### C VDTBH #### [facility] [address] [place] [address] Dr. Kesha Aguero Chloride [Moles/Vol] 102 mmol/L Normal 98-107 [facility] Comment on above: Performed By: #### C VDTBH #### [facility] [address] [place] [address] Dr. Kesha Aguero CO2 [Moles/Vol] 19.7 mmol/L Critically low 21.0-32.0 [facility] Comment on above: Performed By: #### C VDTBH #### [facility] [address] [place] [address] Dr. Kesha Aguero Creatinine [Mass/Vol] 1.22 mg/dL Critically high 0.55-1.02 [facility] Comment on above: Performed By: #### C VDTBH #### [facility] [address] [place] [address] Dr. Kesha Aguero EGFR-AF FILIPINO 51 mL/min/1.73m2 Critically low >=60 [facility] Comment on above: Performed By: #### C VDTBH #### [facility] [address] [address] [address] Kesha Aguero EGFR-NON AF FILIPINO 42 mL/min/1.73m2 Critically low >=60 [facility] Comment on above: Performed By: #### C VDTBH #### [facility] [address] [address] [address] Kesha Aguero Globulin (S) [Mass/Vol] 3.6 g/dL Normal [facility] Comment on above: Performed By: #### C VDTBH #### [facility] [address] [address] [address] Kesha Aguero Glucose [Mass/Vol] 499 mg/dL Critically high 74-106 [facility] Comment on above: Performed By: #### C VDTBH #### [facility] [address] [address] [address] Kesha Aguero Potassium [Moles/Vol] 4.0 mmol/L Normal 3.5-5.1 [facility] Comment on above: Performed By: #### C VDTBH #### [facility] [address] [address] [address] Kesha Aguero Protein [Mass/Vol] 7.1 g/dL Normal 6.4-8.2 [facility] Comment on above: Performed By: #### C VDTBH #### [facility] [address] [address] [address] Kesha Aguero Sodium [Moles/Vol] 133 mmol/L Critically low 136-145 [facility] Comment on above: Performed By: #### C VDTBH #### [facility] [address] [address] [address] Kesha Aguero Urea nitrogen [Mass/Vol] 27.0 mg/dL Critically high 7.0-18 .0 [facility] Comment on above: Performed By: #### C VDTBH #### [facility] [address] [address] [address] Kesha Aguero Urea nitrogen/Creatinine [Mass ratio] 22.1 mg/mg Normal [facility] Comment on above: Performed By: #### C VDTBH #### [facility] [address] [address] [address] Kesha Aguero Phosphate [Mass/volume] in S jefferson or PlasmaOrdered By: Herminia Lawler on 05-09-2022 Phosphate [Mass/Vol] 3.5 mg/dL 2.5-4.6 [facility] Platelet poor plasma interna tional normalized ratio (INR) by coagulation assay (relatOrdered By: Herminia Lawler on 05-09-2022 INR Coag (PPP) [Relative time] 1.0 {INR} [facility] Comment on above: INR Therapeutic Rang [...] Cholesterol in HDL [Mass/Vol] 30 mg/dL 35-85 [facility] Comment on above: HDL CHOL ATP-III CLA SSIFICATION Cardiovascular Risk HDL > or equal to 60 mg/dL LOW HDL < 40 mg/dL HIGH Serum or plasma total choles terol/high density lipoprotein (HDL) cholesterol mass ratOrdered By: Herminia Lawler on 05-09-2022 Cholesterol.total/Choles terol in HDL [Mass ratio] 3.7 {ratio} <5.0 [facility] TROPONIN, HIGH SENSITIVITYon 05-09-2022 HSTROP 603.9 pg/mL Critically high 4.0-51.3 [facility] Comment on above: Result Comment: CUT- OFF POINTS HAVE BEEN ESTABLISHED BASED ON THE FOURTH UNIVERSAL DEFINITIONS OF MYOCARDIAL INFARCTION. THE UPPER REFERENCE LIMIT (URL) OF TROPONIN, DEFINED THE 99TH PERCENTILE OF cTnI DISTRIBUTION IN A REFERENCE POPULATION, HAS BEEN CONFIRMED THE DECISION THRESHOLD FOR [place] DIAGNOSIS. Performed By: #### A CETON #### [facility] [address] [place], [place] [address] Dr. Kesha Aguero HSTROP 24.7 pg/mL Normal 4.0-51.3 [facility] Comment on above: Result Comment: CUT- OFF POINTS HAVE BEEN ESTABLISHED BASED ON THE FOURTH UNIVERSAL DEFINITIONS OF MYOCARDIAL INFARCTION. THE UPPER REFERENCE LIMIT (URL) OF TROPONIN, DEFINED THE 99TH PERCENTILE OF cTnI DISTRIBUTION IN A REFERENCE POPULATION, HAS BEEN CONFIRMED THE DECISION THRESHOLD FOR [place] DIAGNOSIS. Performed By: #### C VDTB #### [facility] [address] [place], [place] [address] Dr. Kesha Aguero Triglyceride [Mass/volume] i n Serum or PlasmaOrdered By: Herminia Lawler on 05-09-2022 Triglyceride [Mass/Vol] 156 mg/dL 35-[address] [facility] Comment on above: TRIG ATP III CLASSIF ICATION TRIG less than 150 mg/dL Normal TRIG 150-199 mg/dL Borderline high TRIG 200-500 mg/dL High TRIG greater than 500 mg/dL Very high Standard traceable to the Center for Disease Conrtrol and Prevention (CDC) test method. [facility]on SARS-CoV-2 (COVID-19) RNA YARA+probe Ql (Unsp spec) Not detected Normal NOT DETECTED [facility] Comment on above: Result Comment: This test is not yet approved or cleared by the [place] FDA. When there are no FDA-approved or cleared tests available, and other criteria are met, FDA can make tests available under an emergency access mechanism called an Emergency Use Authorization (EUA). The EUA for this test is supported by the [place] of Health and Human Service's (HHS's) declaration [...] SARS-CoV-2. Performed By: #### C VDTBH #### [facility] [address] [address] [address] Kesah Aguero PROF CHEM 8 (BAS METB)on Anion gap [Moles/Vol] 13.7 mmol/L Normal [facility] Comment on above: Performed By: #### D DIM #### [facility] [address] [place] [address] Dr. Kesha Aguero Calcium [Mass/Vol] 9.8 mg/dL Normal 8.5-10.1 [facility] Comment on above: Performed By: #### D DIM #### [facility] [address] [place] [address] Dr. Kesha Aguero Chloride [Moles/Vol] 102 mmol/L Normal 98-107 [facility] Comment on above: Performed By: #### D DIM #### [facility] [address] [place] [address] Dr. Kesha Aguero CO2 [Moles/Vol] 26.0 mmol/L Normal 21.0-32.0 [facility] Comment on above: Performed By: #### D DIM #### [facility] [address] [place] [address] Dr. Kesha Aguero Creatinine [Mass/Vol] 1.22 mg/dL Critically high 0.55-1.02 [facility] Comment on above: Performed By: #### D DIM #### [facility] [address] [place] [address] Dr. Kesha Aguero EGFR-AF FILIPINO 51 mL/min/1.73m2 Critically low >=60 [facility] Comment on above: Performed By: #### D DIM #### [facility] [address] [place] [address] Dr. Kesha Aguero EGFR-NON AF FILIPINO 42 mL/min/1.73m2 Critically low >=60 [facility] Comment on above: Performed By: #### D DIM #### [facility] [address] [place] [address] Dr. Kesha Aguero Glucose [Mass/Vol] 323 mg/dL Critically high 74-106 [facility] Comment on above: Performed By: #### D DIM #### [facility] [address] [address] [address] Kesha Aguero Potassium [Moles/Vol] 4.7 mmol/L Normal 3.5-5.1 [facility] Comment on above: Performed By: #### D DIM #### [facility] [address] [address] [address] Kesha Aguero Sodium [Moles/Vol] 137 mmol/L Normal 136-145 [facility] Comment on above: Performed By: #### D DIM #### [facility] [address] [address] [address] Kesha Aguero Urea nitrogen [Mass/Vol] 31.0 mg/dL Critically high 7.0-18 .0 [facility] Comment on above: Performed By: #### D DIM #### [facility] [address] [address] [address] Kesha Aguero Urea nitrogen/Creatinine [Mass ratio] 25.4 mg/mg Normal [facility] Comment on above: Performed By: #### D DIM #### [facility] [address] [address] [address] Kesha Aguero Cardiovascular Lab Reporton 04-22-2022 Cardiovascular Lab Report [facility] Patient Name: Shahbaz [facility] MR #: [id number] Department of Physician: Edison Gibbs [facility]il[facility] Division of Service Date: 04/21/2022 Cardiology Birthdate: 1940 Adult Cardiovascular Room #: [address] [id number] Cardiovascular Laboratory Report CLINICAL PRESENTATION: The patient is an 82-year-old female with past medical history significant for hypertension, hyperlipidemia, CAD, PCI to ramus, KETTLE ROOM HELPER LAD, and systolic heart failure with EF [...] Farxiga. Monitor labs. 5. Outpatient followup with [place] [facility]. 6. Referral to cardiac rehabilitation. PROCEDURES: [...] infiltrated over the left radial artery. A 6-Honduran for Terumo Glidesheath slender was placed in the left radial artery. Radial anti-vasospasm cocktail of verapamil and nitroglycerin was administered to prevent spasm. All catheter exchanges were made over the Magic Torque guidewire. This was a planned PCI procedure. Heparin anticoagulation was administered and ACT was maintained greater than 250 seconds. A Cordis 6-Honduran JR4 guide was engaged to right coronary [...] througho (more content not included)... Normal [facility] Covid-19 PCR ([facility])on 03-31 SARS-CoV-2 (COVID-19) RNA YARA+probe Ql (Unsp spec) Not detected Normal NOT DETECTED [facility] Comment on above: Result Comment: This test is not yet approved or cleared by the [place] FDA. When there are no FDA-approved or cleared tests available, and other criteria are met, FDA can make tests available under an emergency access mechanism called an Emergency Use Authorization (EUA). The EUA for this test is supported by the [place] of Health and Human Service's (HHS's) declaration [...] SARS-CoV-2. Performed By: #### D DIM #### [facility] [address] [place] [address] Dr. Kesha Aguero HEMOGRAM AND PLATELon 2021 Hematocrit (Bld) [Volume fraction] 41.6 % Normal 36.0-48.0 [facility] Comment on above: Performed By: #### C VDTBH #### [facility] [address] [place] [address] Dr. Kesha Aguero Hemoglobin (Bld) [Mass/Vol] 13.2 g/dL Normal 12.0-16.0 [facility] Comment on above: Performed By: #### C VDTBH #### [facility] [address] [place] [address] Dr. Kesha Aguero MCH (RBC) [Entitic mass] 26.2 pg Critically low 26.7-34 .0 [facility] Comment on above: Performed By: #### C VDTBH #### [facility] [address] [place] [address] Dr. Kesha Aguero MCHC (RBC) [Mass/Vol] 31.7 g/dL Normal 29.9-35.2 [facility] Comment on above: Performed By: #### C VDTBH #### [facility] [address] [place] [address] Dr. Kesha Aguero MCV (RBC) [Entitic vol] 82.7 fL Normal 81.0-99.0 [facility] Comment on above: Performed By: #### C VDTBH #### [facility] [address] [address] [address] Kesha Aguero PLT 272 103/ul Normal 150-450 [facility] Comment on above: Performed By: #### C VDTBH #### [facility] [address] [address] [address] Kesha Aguero RBC 5.03 106/ul Normal 4.20-5.40 [facility] Comment on above: Performed By: #### C VDTBH #### [facility] [address] [address] [address] Kesha Aguero WBC 5.9 103/ul Normal 4.0-11.0 [facility] Comment on above: Performed By: #### C VDTBH #### [facility] [address] [place] [address] Dr. Kesha Aguero PROF CHEM 8 (BAS METB)on Anion gap [Moles/Vol] 12.8 mmol/L Normal [facility] Comment on above: Performed By: #### D DIM #### [facility] [address] [place] [address] Dr. Kesha Aguero Calcium [Mass/Vol] 9.6 mg/dL Normal 8.5-10.1 [facility] Comment on above: Performed By: #### D DIM #### [facility] [address] [place] [address] Dr. Kesha Aguero Chloride [Moles/Vol] 105 mmol/L Normal 98-107 [facility] Comment on above: Performed By: #### D DIM #### [facility] [address] [place] [address] Dr. Kesha Aguero CO2 [Moles/Vol] 25.6 mmol/L Normal 21.0-32.0 [facility] Comment on above: Performed By: #### D DIM #### [facility] [address] [place] [address] Dr. Kesha Aguero Creatinine [Mass/Vol] 1.07 mg/dL Critically high 0.55-1.02 [facility] Comment on above: Performed By: #### D DIM #### [facility] [address] [address] [address] Kesha Aguero EGFR-AF FILIPINO 59 mL/min/1.73m2 Critically low >=60 [facility] Comment on above: Performed By: #### D DIM #### [facility] [address] [address] [address] Kesha Aguero EGFR-NON AF FILIPINO 49 mL/min/1.73m2 Critically low >=60 [facility] Comment on above: Performed By: #### D DIM #### [facility] [address] [address] [address] Kesha Aguero Glucose [Mass/Vol] 264 mg/dL Critically high 74-106 [facility] Comment on above: Performed By: #### D DIM #### [facility] [address] [address] [address] Kesha Aguero Potassium [Moles/Vol] 4.4 mmol/L Normal 3.5-5.1 [facility] Comment on above: Performed By: #### D DIM #### [facility] [address] [address] [address] Kesha Aguero Sodium [Moles/Vol] 139 mmol/L Normal 136-145 [facility] Comment on above: Performed By: #### D DIM #### [facility] [address] [address] [address] Kesha Aguero Urea nitrogen [Mass/Vol] 17.0 mg/dL Normal 7.0-18.0 [facility] Comment on above: Performed By: #### D DIM #### [facility] [address] [address] [address] Kesha Aguero Urea nitrogen/Creatinine [Mass ratio] 15.9 mg/mg Normal [facility] Comment on above: Performed By: #### D DIM #### [facility] [address] [address] [address] Kesha Aguero MAGNESIUMon 03-12-2022 Magnesium [Mass/Vol] 1.8 mg/dL Normal 1.8-2.4 [facility] Comment on above: Performed By: #### D DIM #### [facility] [address] [address] [address] Kesha Aguero PROF CHEM 8 (BAS METB)on Anion gap [Moles/Vol] 13.9 mmol/L Normal [facility] Comment on above: Performed By: #### D DIM #### [facility] [address] [place] [address] Dr. Kesha Aguero Calcium [Mass/Vol] 9.8 mg/dL Normal 8.5-10.1 [facility] Comment on above: Performed By: #### D DIM #### [facility] [address] [place] [address] Dr. Kesha Aguero Chloride [Moles/Vol] 101 mmol/L Normal 98-107 [facility] Comment on above: Performed By: #### D DIM #### [facility] [address] [place] [address] Dr. Kesha Aguero CO2 [Moles/Vol] 24.8 mmol/L Normal 21.0-32.0 [facility] Comment on above: Performed By: #### D DIM #### [facility] [address] [place] [address] Dr. Kesha Aguero Creatinine [Mass/Vol] 1.28 mg/dL Critically high 0.55-1.02 [facility] Comment on above: Performed By: #### D DIM #### [facility] [address] [place] [address] Dr. Kesha Aguero EGFR-AF FILIPINO 48 mL/min/1.73m2 Critically low >=60 [facility] Comment on above: Performed By: #### D DIM #### [facility] [address] [place] [address] Dr. Kesha Aguero EGFR-NON AF FILIPINO 40 mL/min/1.73m2 Critically low >=60 [facility] Comment on above: Performed By: #### D DIM #### [facility] [address] [place] [address] Dr. Kesha Aguero Glucose [Mass/Vol] 214 mg/dL Critically high 74-106 [facility] Comment on above: Performed By: #### D DIM #### [facility] [address] [address] [address] Kesha Aguero Potassium [Moles/Vol] 4.7 mmol/L Normal 3.5-5.1 [facility] Comment on above: Performed By: #### D DIM #### [facility] [address] [id number] Kesha Aguero Sodium [Moles/Vol] 135 mmol/L Critically low 136-145 [facility] Comment on above: Performed By: #### D DIM #### [facility] [address] [address] [address] Kesha Aguero Urea nitrogen [Mass/Vol] 26.0 mg/dL Critically high 7.0-18 .0 [facility] Comment on above: Performed By: #### D DIM #### [facility] [address] [address] [address] Kesha Aguero Urea nitrogen/Creatinine [Mass ratio] 20.3 mg/mg Normal [facility] Comment on above: Performed By: #### D DIM #### [facility] [address] [id number] Kesha Aguero Cardiovascular Lab Reporton 2022 Cardiovascular Lab Report [facility] Patient Name: [facility] MR #: [id number] Department of Physician: Edison Gibbs [facility] Division of Service Date: 03/07/2022 Cardiology Birthdate: 1940 Adult Cardiovascular Room #: [place] [id number] Cardiovascular Laboratory Report CLINICAL PRESENTATION: The patient [...] mid LAD has 100% chronic total occlusion (KETTLE ROOM HELPER). The ramus coronary artery has a proximal [...] right PDA disease. 8. Outpatient followup with [place] [facility]. 9. Since the right heart catheterization [...] ultrasound guidance and micropuncture access technique, a 6-Honduran sheath was placed in right internal jugular [...] anesthetized with 1% lidocaine and then a 6-Honduran Terumo Glidesheath slender placed in the left radial artery. The radial anti-vasospasm cocktail of nitroglycerin 200 mcg and verapamil 2.5 mg administered through the sheath. All catheters and sheaths were made over the Magic Torque guidewire. A 5-Honduran JR 5 was used to engage the right coronary artery. 5-Honduran JL 3.5 was used to engage the left main coronary artery. Coronary angiogram was performed in multiple orthogonal views using hand injection of contrast. 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 I elected to proceed with PCI given the patient's advanced age. A Cordis 6-Honduran XB 3.0 guide was engaged in left main coronary artery. Heparin anticoagulation was used for this procedure. ACT was maintained greater than 200 seconds. Run-through wire was manipulated into the coronary arteries. First, I probed the LAD and it did in fact behave as a KETTLE ROOM HELPER. Therefore, I turned my attention to the ramus coronary artery. The proximal ramus had 99% stenosis. The run-through wire has been delivered to the distal ramus. The lesion was predilated with the [place] [employer] 2.5 x 15 mm balloon at 12 [...] b (more content not included)... Normal [facility] POC SARS COV2 IDon 2 SARS-CoV-2 (COVID-19) RNA YARA+probe Ql (Unsp spec) Negative Normal NEGATIVE [facility] Comment on above: Result Comment: [...] #### [facility] [address] [facility] [address] CBC AUTO DIFFon 03-01-2022 BASO # 0.1 103/ul Normal 0.0-0.1 [facility] Comment on above: Performed By: #### C VDTBH #### [facility] [address] [place] [address] Dr. Kesha Aguero Basophils/100 WBC (Bld) 0.7 % Normal 0.2-2.0 [facility] Comment on above: Performed By: #### C VDTBH #### [facility] [address] [place] [address] Dr. Kesha Aguero EO # 0.1 103/ul Normal 0.0-0.7 [facility] Comment on above: Performed By: #### C VDTBH #### [facility] [address] [place] [address] Dr. Kesha Aguero Eosinophils/100 WBC (Bld) 1.2 % Normal 0.9-7.0 [facility] Comment on above: Performed By: #### C VDTBH #### [facility] [address] [place] [address] Dr. Kesha Aguero Erythrocyte distribution width (RBC) [Ratio] 14.0 % Normal 11.0-15.0 [facility] Comment on above: Performed By: #### C VDTBH #### [facility] [address] [place] [address] Dr. Kesha Aguero Hematocrit (Bld) [Volume fraction] 40.9 % Normal 36.0-48.0 [facility] Comment on above: Performed By: #### C VDTBH #### [facility] [address] [address] [address] Kesha Aguero Hemoglobin (Bld) [Mass/Vol] 13.1 g/dL Normal 12.0-16.0 [facility] Comment on above: Performed By: #### C VDTBH #### [facility] [address] [place] [address] Dr. Kesha Aguero IG # 0.03 10e3/ul Normal 0.00-0.03 [facility] Comment on above: Performed By: #### C VDTBH #### [facility] [address] [place] [address] Dr. Kesha Aguero IG % 0.3 % Normal 0.0-0.5 [facility] Comment on above: Performed By: #### C VDTBH #### [facility] [address] [place] [address] Dr. Kesha Aguero LYMPH # 3.4 103/ul Normal 1.2-3.8 [facility] Comment on above: Performed By: #### C VDTBH #### [facility] [address] [place] [address] Dr. Kesha Aguero Lymphocytes/100 WBC (Bld) 36.9 % Normal 20.5-60.0 [facility] Comment on above: Performed By: #### C VDTBH #### [facility] [address] [place] [address] Dr. Kesha Aguero MANUAL DIFF REQ NO Normal [facility] Comment on above: Performed By: #### C VDTBH #### [facility] [address] [place] [address] Dr. Kesha Aguero MCH (RBC) [Entitic mass] 26.5 pg Critically low 26.7-34 .0 [facility] Comment on above: Performed By: #### C VDTBH #### [facility] [address] [place] [address] Dr. Kesha Aguero MCHC (RBC) [Mass/Vol] 32.0 g/dL Normal 29.9-35.2 [facility] Comment on above: Performed By: #### C VDTBH #### [facility] [address] [place] [address] Dr. Kesha Aguero MCV (RBC) [Entitic vol] 82.8 fL Normal 81.0-99.0 [facility] Comment on above: Performed By: #### C VDTBH #### [facility] [address] [place] [address] Dr. Kesha Aguero MONO # 0.6 103/ul Normal 0.3-0.8 [facility] Comment on above: Performed By: #### C VDTBH #### [facility] [address] [place] [address] Dr. Kesha Aguero Monocytes/100 WBC (Bld) 6.5 % Normal 1.7-12.0 [facility] Comment on above: Performed By: #### C VDTBH #### [facility] [address] [place] [address] Dr. Kesha Aguero NEUT # 4.9 103/ul Normal 1.4-6.5 [facility] Comment on above: Performed By: #### C VDTBH #### [facility] [address] [place] [address] Dr. Kesha Aguero Neutrophils/100 WBC (Bld) 54.4 % Normal 43.0-75.0 [facility] Comment on above: Performed By: #### C VDTBH #### [facility] [address] [place] [address] Dr. Kesha Aguero Platelet mean volume (Bld) [Entitic vol] 9.5 fL Normal 9.5-13.5 [facility] Comment on above: Performed By: #### C VDTBH #### [facility] [address] [place] [address] Dr. Kesha Aguero PLT 271 103/ul Normal 150-450 [facility] Comment on above: Performed By: #### C VDTBH #### [facility] [address] [place] [address] Dr. Kesha Aguero RBC 4.94 106/ul Normal 4.20-5.40 [facility] Comment on above: Performed By: #### C VDTBH #### [facility] [address] [place] [address] Dr. Kesha Aguero WBC 9.1 103/ul Normal 4.0-11.0 [facility] Comment on above: Performed By: #### C VDTB #### [facility] [address] [place] [address] Dr. Kesha Aguero Covid-19 PCR ([facility])on SARS-CoV-2 (COVID-19) RNA YARA+probe Ql (Unsp spec) Not detected Normal NOT DETECTED [facility] Comment on above: Result Comment: When diagnostic [...] for this test is supported by the [place] of [employer] and Human Service's declaration that [...] used). Performed By: #### A CETON #### [facility] [address] [place] [address] Dr. Kesha Aguero PROF CHEM 8 (BAS METB)on Anion gap [Moles/Vol] 14.3 mmol/L Normal [facility] Comment on above: Performed By: #### B MP #### [facility] [address] [place] [address] Dr. Kesha Aguero Calcium [Mass/Vol] 9.7 mg/dL Normal 8.5-10.1 [facility] Comment on above: Performed By: #### B MP #### [facility] [address] [place] [address] Dr. Kesha Aguero Chloride [Moles/Vol] 100 mmol/L Normal 98-107 [facility] Comment on above: Performed By: #### B MP #### [facility] [address] [address] [address] Kesha Aguero CO2 [Moles/Vol] 27.2 mmol/L Normal 21.0-32.0 [facility] Comment on above: Performed By: #### B MP #### [facility] [address] [address] [address] Kesha Aguero Creatinine [Mass/Vol] 1.34 mg/dL Critically high 0.55-1.02 [facility] Comment on above: Performed By: #### B MP #### [facility] [address] [address] [address] Kesha Aguero EGFR-AF FILIPINO 46 mL/min/1.73m2 Critically low >=60 [facility] Comment on above: Performed By: #### B MP #### [facility] [address] [address] [address] Kesha Aguero EGFR-NON AF FILIPINO 38 mL/min/1.73m2 Critically low >=60 [facility] Comment on above: Performed By: #### B MP #### [facility] [address] [address] [address] Kesha Aguero Glucose [Mass/Vol] 232 mg/dL Critically high 74-106 [facility] Comment on above: Performed By: #### B MP #### [facility] [address] [address] [address] Kesha Aguero Potassium [Moles/Vol] 4.5 mmol/L Normal 3.5-5.1 [facility] Comment on above: Performed By: #### B MP #### [facility] [address] [address] [address] Kesha Aguero Sodium [Moles/Vol] 137 mmol/L Normal 136-145 [facility] Comment on above: Performed By: #### B MP #### [facility] [address] [address] [address] Kesha Aguero Urea nitrogen [Mass/Vol] 22.0 mg/dL Critically high 7.0-18 .0 [facility] Comment on above: Performed By: #### B MP #### [facility] [address] [place], [place] [address] Dr. Kesha Aguero Urea nitrogen/Creatinine [Mass ratio] 16.4 mg/mg Normal [facility] Comment on above: Performed By: #### B MP #### [facility] [address] [place], [place] [address] Dr. Kesha Aguero ECHOCARDIO M/2D COMPLETEon 0 02-11-2022 ECHOCARDIO M/2D COMPLETE Patient: TERE ARAGON Exam Date: 02/11/2022 : 1940 Gender:F Ordering : DR RODRICK BUTLER M.D. Admission #: [id number] Family : Order #: [id number] CLICK HERE TO VIEW EXAM ECHOCARDIOGRAM REPORT [...] Area(A4C): 23.90 cm2 Left Atrium Systolic Volume(A2C): 57268 mm3 Left Atrium Systolic Volume(A4C): 26790 mm3 Mitral Valve MV E to A [...] Enrique Jackson M.D. on 02/11/2022 at 18:48 [facility] STRESS/REST MULTIon 02-11 [facility] STRESS/REST MULTI Patient: TERE ARAGON Exam Date: 02/11/2022 : 1940 Gender:F Ordering : DR RODRICK BUTLER M.D. Admission #: [id number] Family : Order #: [id number] CLICK HERE TO VIEW EXAM RADIOLOGY REPORT [...] DEFECT: LOCATION: Mid-anterior. Mid-anteroseptal. Mid-anterolateral. Apical anterior. Alvo. SIZE: Large (5 or more segments). SEVERITY: [...] Quintana M.D. on 02/11/2022 at 14:41 Normal [facility] Vital Signs Date Time Vital Sign Value Performing Clinician Facility 09-20-2024 11:08-0500 Body height 170.2 cm Beverly Hemmer PA Work Phone: [facility] 09-20-2024 11:08-0500 Body mass index (BMI) [Ratio] 23.9 kg/m2 Beverly Hemmer PA Work Phone: [facility] 09-20-2024 11:08-0500 Body weight 69.22 kg Beverly Hemmer PA Work Phone: [facility] 09-20-2024 11:08-0500 Diastolic blood pressure 86 mm[Hg] Beverly Hemmer PA Work Phone: [facility] 09-20-2024 11:08-0500 Heart rate 61 /min Beverly Hemmer PA Work Phone: [facility] 09-20-2024 11:08-0500 Respiratory rate 16 /min Beverly Hemmer PA Work Phone: [facility] 09-20-2024 11:08-0500 SaO2% (BldA) [Mass fraction] 98 % Beverly Hemmer PA Work Phone: [facility] 09-20-2024 11:08-0500 Systolic blood pressure 208 mm[Hg] Beverly Hemmer PA Work Phone: [facility] 09-05-2024 13:01-0500 Body height 170.2 cm Rodrick Butler MD Work Phone: [facility] 09-05-2024 13:01-0500 Body mass index (BMI) [Ratio] 24.12 kg/m2 Rodrick Butler MD Work Phone: [facility] 09-05-2024 13:01-0500 Body weight 69.85 kg Rodrick Butler MD Work Phone: [facility] 09-05-2024 13:01-0500 Diastolic blood pressure 86 mm[Hg] Rodrick Butler MD Work Phone: [facility] 09-05-2024 13:01-0500 Heart rate 61 /min Rodrick Butler MD Work Phone: [facility] 09-05-2024 13:01-0500 SaO2% (BldA) [Mass fraction] 100 % Rodrick Butler MD Work Phone: [facility] 09-05-2024 13:01-0500 Systolic blood pressure 138 mm[Hg] Rodrick Butler MD Work Phone: [facility] 07-04-2024 11:41-0500 Body height 170.2 cm Rodrick Butler MD Work Phone: [facility] 07-04-2024 11:41-0500 Body mass index (BMI) [Ratio] 23.65 kg/m2 Rodrick Butler MD Work Phone: [facility] 07-04-2024 11:41-0500 Body weight 68.49 kg Rodrick Butler MD Work Phone: [facility] 07-04-2024 11:41-0500 Diastolic blood pressure 70 mm[Hg] Rodrick Butler MD Work Phone: [facility] 07-04-2024 11:41-0500 Heart rate 60 /min Rodrick Butler MD Work Phone: [facility] 07-04-2024 11:41-0500 SaO2% (BldA) [Mass fraction] 97 % Rodrick Butler MD Work Phone: [facility] 07-04-2024 11:41-0500 Systolic blood pressure 138 mm[Hg] Rodrick Butler MD Work Phone: [facility] 06-08-2024 11:35-0400 Body height 170.2 cm Beverly Hemmer PA Work Phone: [facility] 06-08-2024 11:35-0400 Body mass index (BMI) [Ratio] 23.81 kg/m2 Beverly Hemmer PA Work Phone: [facility] 06-08-2024 11:35-0400 Body weight 68.95 kg Beverly Hemmer PA Work Phone: [facility] 06-08-2024 11:35-0400 Diastolic blood pressure 82 mm[Hg] Beverly Hemmer PA Work Phone: [facility] 06-08-2024 11:35-0400 Heart rate 60 /min Beverly Hemmer PA Work Phone: [facility] 06-08-2024 11:35-0400 Respiratory rate 16 /min Beverly Hemmer PA Work Phone: [facility] 06-08-2024 11:35-0400 SaO2% (BldA) [Mass fraction] 99 % Beverly Hemmer PA Work Phone: [facility] 06-08-2024 11:35-0400 Systolic blood pressure 148 mm[Hg] Beverly Hemmer PA Work Phone: [facility] 06-01-2024 11:23-0400 Body height 170.2 cm Rodrick Butler MD Work Phone: [facility] 06-01-2024 11:23-0400 Body mass index (BMI) [Ratio] 23.65 kg/m2 Rodrick Butler MD Work Phone: [facility] 06-01-2024 11:23-0400 Body weight 68.49 kg Rodrick Butler MD Work Phone: [facility] 06-01-2024 11:23-0400 Diastolic blood pressure 94 mm[Hg] Rodrick Butler MD Work Phone: [facility] 06-01-2024 11:23-0400 Heart rate 65 /min Rodrick Butler MD Work Phone: [facility] 06-01-2024 11:23-0400 SaO2% (BldA) [Mass fraction] 100 % Rodrick Butler MD Work Phone: [facility] 06-01-2024 11:23-0400 Systolic blood pressure 146 mm[Hg] Rodrick Butler MD Work Phone: [facility] 04-19-2024 14:27-0400 Body height 170.2 cm Beverly Hemmer PA Work Phone: [facility] 04-19-2024 14:27-0400 Body mass index (BMI) [Ratio] 23.59 kg/m2 Beverly Hemmer PA Work Phone: [facility] [employer] 04-19-2024 14:27-0400 Body weight 68.31 kg Beverly Hemmer PA Work Phone: [facility] 04-19-2024 14:27-0400 Diastolic blood pressure 76 mm[Hg] Beverly Hemmer PA Work Phone: [facility] 04-19-2024 14:27-0400 Heart rate 71 /min Beverly Hemmer PA Work Phone: [facility] 04-19-2024 14:27-0400 Respiratory rate 16 /min Beverly Hemmer PA Work Phone: [facility] 04-19-2024 14:27-0400 SaO2% (BldA) [Mass fraction] 99 % Beverly Hemmer PA Work Phone: [facility] [employer] 04-19-2024 14:27-0400 Systolic blood pressure 152 mm[Hg] Beverly Hemmer PA Work Phone: [facility] [employer] 09-22-2022 12:00-0500 Body height 162.56 cm Heather Scally Other [employer] Other 09-22-2022 12:00-0500 Body mass index (BMI) [Ratio] 24.59 kg/m2 Heather Scally Other [employer] Other 09-22-2022 12:00-0500 Body weight 65 kg Heather Scally Other [employer] Other 09-22-2022 12:00-0500 Diastolic blood pressure 76 mm[Hg] Heather Scally Other [employer] Other 09-22-2022 12:00-0500 Respiratory rate 18 /min Heather Scally Other [employer] Other 09-22-2022 12:00-0500 SaO2% (BldA) [Mass fraction] 100 % Heather Soler Other [employer] Other 09-22-2022 12:00-0500 Systolic blood pressure 136 mm[Hg] Heather Soler Other [employer] Other 05-11-2022 11:34-0400 Body temperature 97.3 [degF] II Rodrick Butler Work Phone: [facility] 05-11-2022 11:34-0400 Diastolic blood pressure 75 mm[Hg] II Rodrick Butler Work Phone: [facility] 05-11-2022 11:34-0400 Heart rate 78 /min II Rodrick Butler Work Phone: [facility] 05-11-2022 11:34-0400 Respiratory rate 20 /min II Rodrick Butler Work Phone: [facility] 05-11-2022 11:34-0400 SaO2% (BldA) [Mass fraction] 95 % II Rodrick Butler Work Phone: [facility] 05-11-2022 11:34-0400 Systolic blood pressure 122 mm[Hg] II Rodrick Butler Work Phone: [facility] 05-11-2022 06:00-0400 Body weight 69 kg II Rodrick Butler Work Phone: [facility] 05-09-2022 09:40-0400 Body height 170.18 cm II Rodrick Butler Work Phone: [facility] Encounters Encounter Date Encounter Type Care Provider Facility Start: 10-04-2024 End: 10-04-2024 [facility] Start: 09-20-2024 End: 09-20-2024 Bamboo flowsromy ZAMUDIO Work Phone: [facility] Start: 09-20-2024 End: 09-20-2024 Bamboo flowsheet Beverly Paredes PA Work Phone: [facility] Start: 09-20-2024 End: 09-20-2024 Office outpatient visit 25 minutes Beverly Paredes PA Work Phone: [facility] Comment on above: Uncontrolled hyperte nsion (CMS/HCC) (Primary Dx); Mass of left adrenal gland (CMS/HCC); Gastroesophageal reflux disease without esophagitis; Diabetic peripheral neuropathy (CMS/HCC); Type 2 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 gangrene, with long-term current use of insulin (CMS/[facility]); Chronic systolic heart failure (CMS/HCC); Primary insomnia; Bilateral leg edema; Renal artery stenosis ([facility]/HCC) Start: 09-20-2024 End: 09-20-2024 ambulatory BEVERLY PAREDES Not Available Start: 09-05-2024 End: 09-05-2024 Bamboo flowsheet Rodrick Butler MD Work Phone: [facility] Start: 09-05-2024 End: 09-05-2024 Bamboo flowsheet Rodrick Butler MD Work Phone: [facility] Start: 09-05-2024 End: 09-05-2024 Office outpatient visit 25 minutes Rodrick Butler MD Work Phone: [facility] Comment on above: Type 2 diabetes vu itus with diabetic peripheral angiopathy without gangrene, unspecified whether fdc insulin use (CMS/HCC) (Primary Dx); Benign essential hypertension ([facility]); Primary insomnia Start: 09-05-2024 End: 09-05-2024 ambulatory RODRICK BUTLER Not Available Start: 08-29-2024 End: 08-29-2024 Clinisync Result Encounter Generic External Data Provider [facility] Unsolicited Start: 08-29-2024 End: 08-29-2024 Clinisync Result Encounter Generic External Data Provider [facility] Unsolicited Start: 08-12-2024 End: 08-13-2024 Telephone encounter Rodrick Butler MD Work Phone: [facility] Start: 08-08-2024 End: 08-08-2024 ambulatory [facility] Start: 07-26-2024 End: 07-26-2024 ambulatory FRANCISCO [facility] Start: 07-13-2024 End: 07-13-2024 ambulatory [facility] Start: 07-04-2024 End: 07-04-2024 Office outpatient visit 25 minutes Rodrick Butler MD Work Phone: [facility] Comment on above: Benign essential hyp ertension (CMS/HCC) (Primary Dx); Type 2 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 gangrene, with long-term current use of insulin (CMS/HCC) Start: 07-04-2024 End: 07-04-2024 ambulatory RODRICK BUTLER Not Available Start: 06-15-2024 End: 06-15-2024 ambulatory [facility] Start: 06-08-2024 End: 06-08-2024 Bamboo flowsheet Beverly Paredes PA Work Phone: [facility] Start: 06-08-2024 End: 06-08-2024 Bamboo flowsheet Beverly Paredes PA Work Phone: [facility] Start: 06-08-2024 End: 06-08-2024 Office outpatient visit 15 minutes Beverly Paredes PA Work Phone: [facility] Comment on above: Benign essential hyp ertension (CMS/HCC) (Primary Dx); Encounter for immunization Start: 06-08-2024 End: 06-08-2024 ambulatory BEVERLY PAREDES Not Available Start: 06-07-2024 End: 06-07-2024 Telephone encounter Beverly Paredes PA Work Phone: [facility] Start: 06-02-2024 End: 06-02-2024 ambulatory TAYLOR [facility] Start: 06-01-2024 End: 06-01-2024 Transitional care manage srvc 14 day discharge Rodrick Butler MD Work Phone: [facility] Comment on above: TIA (transient ische ginna attack) (Primary Dx); Type 2 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 gangrene, with long-term current use of insulin ([facility]); Benign essential hypertension ([facility]) Start: 06-01-2024 End: 06-01-2024 ambulatory RODRICK BUTLER Not Available Start: 05-05-2024 End: 05-05-2024 ambulatory SHARONA LOUISE Not Available Start: 05-05-2024 End: 05-05-2024 Patient encounter procedure Sharona Louise [employer] Work Phone: [facility] Comment on above: Acute cystitis with hematuria Start: 04-26-2024 End: 04-26-2024 Telephone encounter More Barcenas KRISTIN Work Phone: [facility] Start: 04-26-2024 End: 04-26-2024 ambulatory [facility] Start: 04-19-2024 End: 04-19-2024 Office outpatient visit 25 minutes Beverly ZAMUDIO Work Phone: [facility] Comment on above: Acute cystitis with hematuria (Primary Dx); Dysuria; Diabetic peripheral neuropathy ([facility]); Type 2 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 gangrene, with long-term current use of insulin ([facility]) Start: 04-19-2024 End: 04-19-2024 ambulatory BEVERLY PAREDES Not Available Start: 04-07-2024 End: 04-07-2024 ambulatory SHARONA LOUISE Not Available Start: 02-29-2024 End: 02-29-2024 ambulatory RODRICK BUTLER Not Available Start: 01-12-2024 End: 01-12-2024 ambulatory BEVERLY PAREDES Not Available Start: 12-30-2023 End: 12-30-2023 ambulatory RODRICK BUTLER Not Available Start: 12-02-2023 End: 12-02-2023 ambulatory RODRICK BUTLER Not Available Start: 10-27-2023 End: 10-27-2023 ambulatory FRANCISCO FORDE [facility] Start: 11-24-2022 End: 11-24-[address] RODRICK BUTLER Facility:[facility] Start: 09-29-2022 End: 09-30-[address] RODRICK BUTLER Facility:[facility] Start: 09-22-2022 (New DM) New Diabetes Heather Braynirav [facility] Start: 09-22-2022 End: 09-23-2022 ambulatory Heather Soler [facility] [employer] Other Start: 08-28-2022 End: 08-29-[address] RODRICK BUTLER Facility:[facility] Start: 08-18-2022 End: 08-19-[address] RODRICK BUTLER Facility:[facility] Start: 06-11-2022 End: 06-12-[address] RODRICK BUTLER Facility:[facility] Start: 06-06-2022 End: 06-06-2022 ambulatory REJI CARLOS Facility:[facility] Start: 05-11-2022 ambulatory Itz ABDIgeorgin II Faci lity:[id number] Start: 05-10-2022 ambulatory Itz ABDIgeorgin II Faci lity:[id number] Start: 05-09-2022 ambulatory Itz ABDIuinn II Faci lity:[id number] Start: 05-09-2022 End: 05-11-2022 Evaluation and management of inpatient CHANDA Mensah Luke Work Phone: [facility] Start: 05-09-2022 End: 05-09-2022 ambulatory Itz ABDIgeorgin II Facility:[id number] Start: 05-02-2022 [facility]counter [facility] other [facility]cedural examination [facility] Start: 05-02-2022 Encounter for preprocedural laboratory examination TAYLOR CRISOSTOMO [facility] Start: 05-01-2022 End: 05-02-[address] RODRICK BUTLER Facility:[facility] Start: 05-01-2022 End: 05-02-2022 Encounter for other preprocedural examination DR RODRICK BUTLER Facility:[facility] Start: 04-21-2022 End: 04-22-2022 ambulatory RODRICK BUTLER Facility:[facility] Start: 04-18-2022 End: 04-19-2022 ambulatory TAYLOR CRISOSTOMO Facility:[facility] Start: 03-12-2022 End: 03-13-2022 ambulatory TAYLOR CRISOSTOMO Facility:[facility] Start: 03-07-2022 End: 2022 ambulatory RODRICK BUTLER Facility:[facility] Start: 03-01-2022 End: 03-02-2022 ambulatory TAYLOR CRISOSTOMO Facility:[facility] Start: 02-11-2022 End: 02-12-[address] RODRICK BUTLER Facility: Procedures Date Procedure Procedure Detail Performing Clinician Start: 09-05-2024 Hemoglobin glycosyla celia a1c Rodrick Butler MD Work Phone: Start: 08-29-2024 ALL LIPID PROFILE (FASTING) Generic External Data Provider Start: 08-29-2024 [facility] ALT Generic Ex ternal Data Provider Start: 08-29-2024 [facility] AST Generic Ex ternal Data Provider Start: 06-01-2024 Hemoglobin glycosyla celia a1c Rodrick Bulter MD Work Phone: Start: 05-05-2024 Urnls dip stick/tabl et rgnt non-auto w/o micrscp Sharona Louise [employer] Work Phone: Start: 04-19-2024 Urnls dip stick/tabl et rgnt non-auto w/o micrscp Beverly Paredes PA Work Phone: Plan of Treatment Date Care Activity Detail Author Start: 03-25-2025 Glaucoma screening Diabetes: R etinopathy Screening [facility] Start: 12-04-2024 Hemoglobin A1c measurement Diabetes: Hemoglobin A1C [facility] Start: 12-01-2024 Urine screening for protein Diabetes: Urine Protein Screening [facility] Start: 10-17-2024 End: 10-17-2024 Patient encounter procedure 10/17/2024 1:00 PM EST Office Visit [facility] [address] [facility] [address] [place] [id number] Rodrick Butler MD [address] [facility] [address] [place] [address] [facility] Start: 09-20-2024 End: 09-20-2025 Basic metabolic 1998 panel - Serum or Plasma Basic metabolic panel Lab Routine Uncontrolled hypertension ([facility]) Type 2 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 gangrene, with long-term current use of insulin ([facility]/HCC) Chronic systolic heart failure (CMS/HCC) Bilateral leg edema Expected: 09/20/2024 (Approximate), Expires: 09/20/2025 [facility] Work Phone: Comment on above: Expected: 09/20/2024 (Approximate), Expires: 09/20/2025 Start: 09-20-2024 End: 09-20-2025 Natriuretic peptide B [Mass/volume] in Blood B-type natriuretic peptide Lab Routine Chronic systolic heart failure ([facility]/HCC) Bilateral leg edema Expected: 09/20/2024 (Approximate), Expires: 09/20/2025 [facility] Comment on above: Expected: 09/20/2024 (Approximate), Expires: 09/20/2025 Start: 09-20-2024 End: 09-20-2024 Patient encounter procedure 09/20/2024 11:00 AM EST Office Visit [facility] [address] [place] [address] Beverly Paredes PA [address] [place] [address] Arrived [facility] Comment on above: Arrived Start: 09-05-2024 End: 09-05-2024 Patient encounter procedure [facility] Comment on above: Arrived Start: 09-01-2024 Hemoglobin A1c measurement Diabetes: Hemoglobin A1C [facility] Start: 07-04-2024 End: 07-04-2024 Patient encounter procedure 07/04/2024 11:45 AM EST Office Visit [facility] [address] [place] [address] Rodrick Butler MD [address] [place] [address] [facility] Start: 06-08-2024 End: 06-08-2024 Patient encounter procedure 06/08/2024 11:30 AM EDT Office Visit [facility] [address] [place] [address] Beverly Paredes PA [address] [facility] [address] [place] [address] Arrived [facility] Comment on above: Arrived Start: 06-01-2024 End: 06-01-2024 Patient encounter procedure 06/01/2024 1:00 PM EDT Office Visit [facility] [address] [facility] [address] [place] [address] Rodrick Butler MD [address] [facility] [address] [place] [address] [facility] Start: 05-31-2024 Hemoglobin A1c measurement Diabetes: Hemoglobin A1C [facility] Start: 05-01-2024 Influenza vaccination Influenza Vacc ine (#1) [facility] Start: 04-19-2024 End: 04-19-2025 URINARY TRACT INFECTION (HTRX) URINARY TRACT INFECTION (HTRX) Lab Routine Acute cystitis with hematuria Expected: 04/19/2024 (Approximate), Expires: 04/19/2025 [facility] Work Phone: Comment on above: Expected: 04/19/2024 (Approximate), Expires: 04/19/2025 Start: 11-25-2023 Urine screening for protein Diabetes: Urine Protein Screening [facility] Start: 05-11-2022 [facility] Work Phone: Start: 05-09-2022 Hospital admission [facility] Work Phone: Start: 05-09-2022 Referral to shaft headman [facility] Work Phone: Patient Education Acid Reflux an d GERD in Adults (DC) Irritable Bowel Syndrome (DC) Coronary Artery Disease (DC) [facility] Work Phone: Patient referral [facility] Work Phone: URINARY TRACT INFECT ION (HTRX) URINARY TRACT INFECTION (HTRX) Lab Routine Acute cystitis with hematuria Ordered: 05/05/2024 [facility] Work Phone: Comment on above: Ordered: 05/05/2024 Immunizations Immunization Date Immunization Notes Care Provider Cory raphael 06-08-2024 Influenza, High-dose Seasonal, Quadrivalent, Preservative Free Beverly Hemmer PA Work Phone: [facility] 12-09-2023 Pneumococcal Conjuga te PCV 20 Beverly Hemmer PA Work Phone: [facility] Work Phone: 06-16-2023 Influenza, High-dose Seasonal, Quadrivalent, Preservative Free Beverly Hemmer PA Work Phone: [facility] 06-16-2023 influenza virus vaccine, unspecified formulation Beverly Hemmer PA Work Phone: [facility] 05-30-2022 Influenza, High-dose Seasonal, Quadrivalent, Preservative Free Beverly Hemmer PA Work Phone: [facility] 08-14-2021 Influenza, injectabl e, Madin [place] Canine Kidney, preservative free, quadrivalent Beverly Hemmer PA Work Phone: [facility] 05-18-2020 influenza, injectabl e, quadrivalent, preservative free Beverly Hemmer PA Work Phone: [facility] 06-10-2018 Seasonal trivalent influenza vaccine, adjuvanted, preservative free Beverly Hemmer PA Work Phone: [facility] 06-27-2013 influenza, seasonal, injectable Beverly Hemmer PA Work Phone: [facility] Payers Date Payer Category Payer Medicare [id number] 2022 Medicare [id number] 2022 Self-pay [id number] 2022 Medicare (Managed Care) 1.2. [id number] 2004 Medicare [id number] 1959 Private Health Insurance [id number] 1939 Unknown [id number] 2.16.840.1.161923.3.579. 2.647 1939 Unknown [id number] 2.16.840.1.821389.3.579. 2.647 1939 Unknown [id number] 2.16.840.1.015371.3.579. 2.356 1939 Unknown [id number] 2.840.1.849181.3.579. 2.356 1939 Unknown [id number] 2.840.1.692230.3.579. 2.356 1939 Unknown [id number] 2.840.1.001882.3.579. 2.356 1939 Unknown [id number] 2.840.1.507718.3.579. 2.593 1939 Unknown [id number] 2.840.1.318035.3.579. 2.593 1939 Unknown [id number] 2.840.1.302865.3.579. 2.593 1939 Unknown [id number] 2.16.840.1.091524.3.579. 2.593 1939 Unknown [id number] 2.16.840.1.886120.3.579. 2.593 1939 Unknown [id number] 2.16.840.1.407432.3.579. 2.593 1939 Unknown [id number] 2.840.1.728767.3.579. 2.593 1939 Unknown [id number] 2.16.840.1.986170.3.579. 2.593 1939 Unknown [id number] 2.16.840.1.671402.3.579. 2.593 1939 Unknown [id number] 2.16.840.1.039516.3.579. 2.593 1939 Unknown [id number] 2.16.840.1.048445.3.579. 2.593 1939 Unknown [id number] 2.16.840.1.637461.3.579. 2.593 1939 Unknown [id number] 2.16.840.1.064817.3.579. 2.593 1939 Unknown [id number] 2.16.840.1.885651.3.579. 2.125 1939 Unknown [id number] 2.840.1.549557.3.579. 2.1258 1939 Unknown [id number] 2.16.840.1.164375.3.579. 2.1258 1939 Unknown [id number] 2.16.840.1.589313.3.579. 2.125 1939 Unknown [id number] 2.16.840.1.611352.3.579. 2.125 1939 Unknown [id number] 2.16.840.1.865075.3.579. 2.125 1939 Unknown [id number] 2.16.840.1.234482.3.579. 2.125 1939 Unknown [id number] 2.16.840.1.981793.3.579. 2.1258 1939 Unknown [id number] 2.16.840.1.224868.3.579. 2.125 1939 Unknown [id number] 2.16.840.1.368491.3.579. 2.1259 1939 Unknown [id number] 2.16.840.1.951121.3.579. 2.1259 1939 Unknown [id number] 2.16.840.1.074982.3.579. 2.1259 Private Health Insurance [id number] Unknown Equitable Insurance-[facility] [id number] Unknown [id number] 2.16.840.1.679416.3.579. 2.531 Social History Date Type Detail Facility Start: 05-09-2022 End: 01-28-2023 Tobacco smoking status AZIS Never smoked tobacco (finding) [facility] Start: 1940 Sex Assigned At Female [facility] Start: 02-29-2024 End: 06-21-2024 Sex Assigned At [employer] Other Start: 01-28-2023 Tobacco use and exposure Smokeless tobacco non-user [facility] Start: 04-19-2024 End: 09-20-2024 Alcoholic beverage intake Lifetime non-drinker (finding) [facility] Start: 02-29-2024 End: 06-21-2024 History of Social function [facility] How often do you nee d to have someone help you when you read instructions, pamphlets, or other written material from your doctor or pharmacy [SILS] Never [facility] Within the last year , have you been afraid of your partner or ex-partner? No [facility] Do you belong to any clubs or organizations such as mormon groups, unions, fraternal or athletic groups, or [...] Equipment Origin al Text Equipment Identifier Dates [id number], [id number] Start: 01-18-2013 Goals Date Patient Goal Desired Activity /State Functional Status Date Assessment Result Facility 05-11-2022 Functional status Patient at [facility] Work Phone: Mental Status Date Assessment Result Facility 05-11-2022 Cognitive function Cognitive Sta tus Patient at [facility] Work Phone: Clinical Notes 03-31-2022 to 10-04-2024 LIZZ Venegas - 09/20/2024 11:00 AM India Butler MD - 09/05/2024 1:00 PM ESTTelephone Encounter - LIZZ Venegas - 08/13/2024 8:43 AM India Butler MD - 07/04/2024 11:45 AM EST Note Date & Type Note Facility 10-04-2024 Note [facility] - [facility] Subjective Tere Aragon is a 84 y.o. year old female patient being seen for Palpitations , Hypertension (Only taking clonidine in the evenings, for SPB > 170), and Bradycardia ,S/p PPM Patient Active Problem List Diagnosis Coronary artery disease involving [place] coronary artery of [place] heart Chronic systolic heart failure (CMS/HCC) Mixed hyperlipidemia Presence of drug coated stent in right coronary artery Diabetes mellitus (CMS/HCC) Benign hypertensive cardiomyopathy with heart failure (CMS/HCC) Insomnia Lightheadedness Non-smoker Restless legs syndrome Abnormal gait Ataxia Benign essential hypertension Central vestibular vertigo Diabetic peripheral neuropathy (CMS/HCC) Diabetic renal disease (CMS/HCC) Diverticulitis Mass of left adrenal gland (CMS/HCC) Ovarian failure Skin sensation disturbance Type 2 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 gangrene (CMS/HCC) Type 2 diabetes mellitus without complications (CMS/HCC) Heart block Heart block atrioventricular Cardiac 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 In general she feels good. She denies any chest pain or shortness of breath at rest or with exertion. She denies any further palpitations. She denies orthopnea or paroxysmal nocturnal dyspnea. She admits occasional legs edema for which she takes Lasix 20 mg with potassium prescribed by PCP Patient called the office that clonidine causing her dry mouth and I recommended to start amlodipine however she states that she tried it before and caused legs edema in addition to feeling cold and chilly all the time. 08/08/2024 Patient is here today for follow-up visit. She states [...] reports drinking enough water and no caffeine Review of systems All systems were reviewed and they were negative except for the positive findings noted above in the history Past Medical History: Diagnosis Date Abnormal ECG Arrhythmia CHF (congestive heart failure) ([facility]) Coronary artery disease Diabetes mellitus ([facility]) Heart valve disease Hyperlipidemia Hypertension Past Surgical History: Procedure Laterality [...] Allergies Allergen Reactions Sulfa (Sulfonamide Antibiotics) Swelling Amlodipine Swelling Clonidine Other Dry mouth Entresto [Sacubitril-Valsartan] Other hypertension Farxiga [Dapagliflozin] Other Empagliflozin Other Pt gets yeast infections when taking this medication Iodine Rash Medications Current Outpatient Medications: aspirin 81 mg [...] evening meal., Disp: 180 tablet, Rfl: 3 cyproheptadine (Periactin) 4 mg tablet, Take 2 mg by mouth at bedtime., Disp: , Rfl: furosemide (Lasix) 20 mg tablet, Take 20 mg by mouth if needed each day., Disp: , Rfl: Janumet XR 100-1,000 mg tablet, ER multiphase 24 hr (more content not included)... [facility] 09-20-2024 History of Present illness Narrative Images from the original note were not included. HPI Med Refill Additional comments: Furosemide, Potassium, Lantus Last edited by More Barcenas LPN on 09/20/2024 11:08 AM. Subjective Patient ID: Tere Aragon is a 84 y.o. female who presents for feet swelling. Tere is present today for evaluation of feet swelling. Admits bilateral feet/leg swelling, left worse than right, 1+ edema. They started swelling when she started taking the Amlodipine. She did call her shaft headman and he told her to stop the Amlodipine, since she stopped the Amlodipine the swelling has improved. She is checking her BP's at home and running around 150/70-80's on average. She feels the clonidine is making her mouth really dry and at night feels like her heart is really pounding so is not sleeping good d/t that. Now feels like the clonidine is making her stomach feel sore and has an indentation in her upper abdomen. Green Plumber mentioned she could possibly have a hiatal hernia but never did test for it. She states Cardiology believes the hiatal hernia may be pressing on her heart. 145/68 this morning. Did not take her Clonidine this morning. C/o sensation that food gets stuck at times in her lower esophagus. C/o intermittent heart burn. No history of EGD. Took the Trazodone for two days, did not notice that it helped. Current Outpatient Medications on File Prior to Visit Medication Sig Dispense Refill latanoprost (Xalatan) 0.005 % ophthalmic solution Administer 1 drop into both eyes at bedtime aspirin 81 MG EC tablet Take 81 mg by mouth in the morning. atorvastatin (Lipitor) 80 MG tablet Take 1 tablet (80 mg) by mouth at bedtime 100 tablet 3 Blood Glucose Monitoring Suppl (Blood Glucose Monitor System) w/Device kit 1 each Daily 1 kit 0 carvedilol (Coreg) 12.5 MG tablet Take 1 [...] 1/2 TABLET AT BEDTIME 45 tablet 3 furosemide (Lasix) 20 MG tablet Take 20 mg by mouth Daily as needed (Swelling) glucose blood (Accu-Chek Briana Plus) test strip 1 each in the morning and 1 each before bedtime. Glucose Blood (Blood Glucose Test) strip 1 each by In Vitro route Daily 100 strip 3 insulin glargine (Lantus SoloStar) 100 UNIT/ML pen Inject 25 Units under the skin in the morning. 27 mL 3 Lancets 30G misc 1 each Daily 100 each 3 losartan (Cozaar) 50 MG tablet Take 1 tablet (50 mg) by mouth in the morning and 1 tablet (50 mg) before bedtime. 60 tablet 11 potassium chloride CR (KLOR-CON) 10 MEQ ER tablet Take 10 mEq by mouth Daily as needed (Swelling) With Furosemide SITagliptin-metFORMIN ER (Janumet XR) 100-1000 MG per 24 hr tablet Take 1 tablet by mouth in the morning. Take with meals. 100 tablet 3 traZODone (Desyrel) 50 MG tablet Take 1 tablet (50 mg) by mouth as needed at bedtime for sleep 30 tablet 5 [DISCONTINUED] prednisoLONE acetate (Pred-Forte) 1 % ophthalmic suspension instill 1 DROP IN THE RIGHT EYE FOUR TIMES DAILY No current facility-administered medications on file prior to visit. I have reviewed and reconciled the history and medication list with the patient today. Allergies Allergen Reactions Amlodipine Swelling Swelling in feet Empagliflozin Other Yeast Infections Sulfa Antibiotics Unknown and Swelling sore in mouth Clonidine Other Dry Mouth Iodine Sacubitril-Valsartan Other hypertension Shellfish Allergy vomitting, diarrhea Shellfish-Derived Products Unknown [...] History: Diagnosis Date CAD (coronary artery disease) ([facility]) CAD (coronary artery disease) ([facility]) Elevated Troponin (05/09/2022-05/11/2022) Chest pain 06/06/2022, 08/28/2022 CHF (congestive heart failure) ([facility]) Chronic systolic heart failure ([facility]) Coronary atherosclerosis ([facility]) Diabetes mellitus ([facility]) History of being hospitalized 09/04/2023 Bradycardia, URI, Metabolic Acidosis, Dehydration History of being hospitalized 05/28/2024 Hypertensive Emergency, CVA, CAD HLD (hyperlipidemia) ([facility]) Past Surgical History: Procedure Laterality Date ADENOIDECTOMY ANGIOGRAM 04/21/2022 PCI,RCA,PDA APPENDECTOMY 1963 CARDIAC CATHETERIZATION Right 03/07/2022 CARDIAC PACEMAKER PLACEMENT 09/07/2023 HYSTERECTOMY 1996 Visit Vitals BP (!) 208/86 Pulse 61 Resp 16 Ht 5' 7 Wt 152 lb 9.6 oz SpO2 98% BMI 23.90 kg/m Smoking Status Never BSA 1.81 m Review of Systems Constitutional: Negative for chills, fatigue and fever. HENT: Dry mouth Respiratory: Negative for cough, shortness of breath and wheezing. Cardiovascular: Negative for chest pain, palpitations and leg swelling. Heart pounding Gastrointestinal: Negative for abdominal pain, constipation, diarrhea, nausea and vomiting. Skin: Negative for rash. Psychiatric/Behavioral: Positive for sleep disturbance. Objective Physical Exam Constitutional: General: She is [...] sounds. No wheezing, rhonchi or rales. Abdominal: Comments: Pt has a skin fold upper abdomen. Pt's area of concern is the indentation at top of fold. No erythema or skin changes Musculoskeletal: Right lower le+ Edema present. Left lower le+ Edema present. Skin: General: Skin is warm and dry. Neurological: General: No focal deficit present. Mental Status: She is alert and oriented to person, place, and time. Psychiatric: Mood and Affect: Mood normal. Behavior: Behavior normal. Assessment/Plan Diagnoses and all orders for this visit: Uncontrolled hypertension (CMS/HCC) - Basic metabolic panel; Future -BP remains labile. She did not take the Clonidine this morning and her BP is markedly elevated in the office. Her BP had started to improve with regular Clonidine, but pt is having difficulty tolerating the medication. -Reviewed Cardiology note from 08/08/2024 and discussed with pt. -Continue Clonidine until alternative sent in by Cardiology. She will reach out to their office today for instructions on her medication. -CT of ABD/Pelvis from 05/09/2022 showed Marked atherosclerotic narrowing at origins, of the renal arteries. A 3.6 cm left adrenal mass was also visualized. Metanephrines and cortisol levels were WNL on 06/11/2022. Patient's thyroid function was WNL on 12/02/2023. Mass of left adrenal gland (CMS/HCC) See above. Gastroesophageal reflux disease without esophagitis - pantoprazole (ProtoNix) 40 MG EC tablet; Take 1 tablet (40 mg) by mouth in the morning. Take before meals. Do not crush, chew, or split.. - Ambulatory referral to Gastroenterology; Future Provided pt with Rx for Pantoprazole to start. Will also provide her with a referral to GI for possible EGD, evaluate for possible for Hiatal Hernia. Diabetic peripheral neuropathy (CMS/HCC) HgbA1c from 09/05/2024 was 7.6. Continue current medications as prescribed. Recheck HgbA1c in three months. Type 2 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 gangrene, with long-term current use of insulin (CMS/HCC) - Basic metabolic panel; Future Continue current medications as prescribed. Continue baby ASA daily. Chronic systolic heart failure (CMS/HCC) - Basic metabolic panel; Future - B-type natriuretic peptide; Future Will obtain lab work for further evaluation at this time. Will notify pt of results once received. Primary insomnia - traZODone (Desyrel) 50 MG tablet; Take 1.5-2 tablets (75-100 mg) by mouth as needed at bedtime for sleep Will have patient increase to 75 mg for a few days and see if it is more efficacious. She is tolerating it well. If 75 mg is insufficient, she can increase it to 100 mg at bedtime. Bilateral leg edema - furosemide (Lasix) 20 MG tablet; Take 1 tablet (20 mg) by mouth Daily as needed (Swelling) - potassium chloride CR (KLOR-CON) 10 MEQ ER tablet; Take 1 tablet (10 mEq) by mouth Daily as needed (Swelling) With Furosemide - Basic metabolic panel; Future - B-type natriuretic peptide; Future Refill provided on the above. Elevate legs when possible. Non-pitting at today's visit. Renal artery stenosis Patient has not seen a vascular specialist in the past. In light of several other potential causes of secondary hypertension being ruled out previously, would consider referral to a vascular specialist to see if intervention for the [place] might be indicated. Follow up for Appointment As Scheduled. documented in this encounter [facility] 09-05-2024 History of Present illness Narrative Images from the original note were not included. Subjective Patient ID: Tere Aragon is a 84 y.o. female who presents for Diabetes, Hypertension, and Med Refill. Diabetes Mellitus Patient presents for follow up of diabetes. Current symptoms include: none. Patient denies foot ulcerations, hypoglycemia , paresthesia of the feet, polydipsia, polyuria, visual disturbances, and vomiting. Evaluation to date has included: fasting blood sugar, fasting lipid panel, and hemoglobin A1C. Home sugars: BGs range between 130 and 160 Pt states since starting clonidine she has had a dry mouth Pt states she is having difficulty sleeping her shaft headman advised her that he does not think she should take a sleeping medication but advised her to discuss talking to PCP about maybe trying an anti-anxiety medication to help with her sleep. Diabetes Hypertension This is a chronic problem. The current episode started more than 1 year ago. The problem is unchanged. There are no associated agents to hypertension. Risk factors for coronary artery disease include diabetes mellitus. Med Refill Current Outpatient Medications on File Prior to [...] morning. Take with meals. 100 tablet 3 No current facility-administered medications on [...] History: Diagnosis Date CAD (coronary artery disease) ([facility]) CAD (coronary artery disease) ([facility]) Elevated Troponin (05/09/2022-05/11/2022) Chest pain 06/06/2022, 08/28/2022 CHF (congestive heart failure) ([facility]) Chronic systolic heart failure ([facility]) Coronary atherosclerosis ([facility]) Diabetes mellitus ([facility]) History of being hospitalized 09/04/2023 Bradycardia, URI, Metabolic Acidosis, Dehydration History of being hospitalized 05/28/2024 Hypertensive Emergency, CVA, CAD HLD (hyperlipidemia) ([facility]) Past Surgical History: Procedure Laterality Date ADENOIDECTOMY ANGIOGRAM 04/21/2022 PCI,RCA,PDA APPENDECTOMY 1963 CARDIAC CATHETERIZATION Right 03/07/2022 CARDIAC PACEMAKER PLACEMENT 09/07/2023 HYSTERECTOMY 1997 Visit Vitals BP 138/86 Pulse 61 Ht 5' 7 Wt 154 lb SpO2 100% BMI 24.12 kg/m Smoking Status Never BSA 1.82 m Review of Systems Objective Physical Exam [...] normal. Behavior: Behavior normal. Office Visit on 09/05/2024 Component Date Value Ref Range Status Hemoglobin A1C 09/05/2024 7.6 Final Clinisync Result Encounter on 08/29/2024 Component Date Value Ref Range Status ASPARTATE AMINO TRANSFERASE 08/29/2024 17 15 - 37 U/L Final ALANINE AMINOTRANSFERASE 08/29/2024 22 14 - 59 U/L Final TRIGLYCERIDES 08/29/2024 103 <=150 mg/dL Final CHOLESTEROL 08/29/2024 114 <=200 mg/dL Final HDL CHOLESTEROL 08/29/2024 44 40 - 60 mg/dL Final Comment: > or =60 mg/dl - LOW CARDIOVASCULAR RISK <40 mg/dl - HIGH CARDIOVASCULAR RISK LDL CHOLESTEROL CALCULATED 08/29/2024 49.4 mg/dL Final Comment: <100 mg/dl OPTIMAL 100-129 mg/dl NEAR OR ABOVE OPTIMAL 130-159 mg/dl BORDERLINE HIGH 160-189 mg/dl HIGH >190 mg/dl VERY HIGH VLDL CHOLESTEROL 08/29/2024 20.6 mg/dL Final CHOL HDL RATIO 08/29/2024 2.6 Final Comment: 3.3 - 4.4 LOW RISK 4.4 - 7.1 AVERAGE RISK 7.1 - 11.0 MODERATE RISK >11.0 HIGH RISK Assessment/Plan Diagnoses and all orders for this visit: Type 2 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 gangrene, unspecified whether fdc insulin use (CMS/HCC) - POCT Glycated hemoglobin, total - Improve diet, no med change today Benign essential hypertension ([facility]) - amLODIPine (Norvasc) 2.5 MG tablet; Take 1 tablet (2.5 mg) by mouth Daily Primary insomnia - traZODone (Desyrel) 50 MG tablet; Take 1 tablet (50 mg) by mouth as needed at bedtime for sleep Follow up in about 6 weeks (around 10/17/2024) for F/U med changes. documented in this encounter [facility] 08-13-2024 Telephone encounter Note Acknowledged [facility] 08-13-2024 Miscellaneous Notes Acknowledged Pt Notified and [...] goes above 400 she should call the director of medical education provider over the weekend or go to the ER. Pt states that her blood sugar is high. Its to 294 as of now. She states its been going up all morning. She's given herself her insulin as well as drank water. She like to know what else she could do. documented in this encounter [facility] 08-12-2024 Telephone encounter Note Pt Notified and is feeling better. [facility] 08-12-2024 Telephone encounter Note Please reassure pt [...] goes above 400 she should call the director of medical education provider over the weekend or go to the ER. [facility] 08-12-2024 Telephone encounter Note Pt states that her blood sugar is high. Its to 294 as of now. She states its been going up all morning. She's given herself her insulin as well as drank water. She like to know what else she could do. [facility] 08-08-2024 Note [place] [facility] - [facility] Subjective Tere Aragon is a 84 y.o. year old female patient being seen for Palpitations (Follow up Holter monitor.), Hypertension (Only taking clonidine in the evenings, for SPB > 170), and Bradycardia (S/p PPM, which was interrogated 3 weeks ago in the office. ) Patient Active Problem List Diagnosis Coronary artery disease involving [place] coronary artery of [place] heart Chronic systolic heart failure (CMS/HCC) Mixed hyperlipidemia Presence of drug coated stent in right coronary artery Diabetes mellitus (CMS/HCC) Benign hypertensive cardiomyopathy with heart failure (CMS/HCC) Insomnia Lightheadedness Non-smoker Restless legs syndrome Abnormal gait Ataxia Benign essential hypertension Central vestibular vertigo Diabetic peripheral neuropathy (CMS/HCC) Diabetic renal disease (CMS/HCC) Diverticulitis Mass of left adrenal gland (CMS/HCC) Ovarian failure Skin sensation disturbance Type 2 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 gangrene (CMS/HCC) Type 2 diabetes mellitus without complications (CMS/HCC) Heart block Heart block atrioventricular Cardiac 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 [facility] 07-13-2024 Note [facility] Note Chief Complaint: Patient here c/o elevated BP. Says she is awakened with palpitations sometimes. Denies chest pain and SOB. She's also getting lightheaded sometimes. HPI: Tere Aragon is a 84 y.o. female history of [...] mid LAD has 100% chronic total occlusion ([employer]LE ROOM [employer]). The ramus coronary artery has a proximal 99% stenosis that was treated successfully with PCI with a Synergy 2.5 x 16 mm drug-eluting stent. The circumflex is patent. The RCA has proximal and mid diffuse 70% stenosis, and the right PDA has 80% stenosis. The RCA (more content not included)... [facility] 07-04-2024 History of Present illness Narrative Images from the original note were not included. HPI Hypertension Additional comments: Medication added clonidine losartan Last edited by Jessica Avila MA on 07/04/2024 7:48 AM. Subjective Patient ID: Tere Aragon is a 84 y.o. female who presents [...] History: Diagnosis Date CAD (coronary artery disease) ([facility]/HCC) CAD (coronary artery disease) ([facility]/HCC) Elevated Troponin (05/09/2022-05/11/2022) Chest pain 06/06/2022, 08/28/2022 CHF (congestive heart failure) (CMS/HCC) Chronic systolic heart failure (CMS/HCC) Coronary atherosclerosis (CMS/HCC) Diabetes mellitus (CMS/HCC) History of being hospitalized 09/04/2023 Bradycardia, URI, Metabolic Acidosis, Dehydration History of being hospitalized 05/28/2024 Hypertensive Emergency, CVA, CAD HLD (hyperlipidemia) (CMS/HCC) Past Surgical History: Procedure Laterality Date ADENOIDECTOMY [...] gangrene, with long-term current use of insulin ([facility]) - Last A1C 06/23 with good control. Follow up in about 2 months (around 09/03/2024) for Routine F/U. documented in this encounter [facility] 06-15-2024 Note [facility] Cardiology Clinic Note Chief Complaint: Patient here for 2 week follow up hypertension and chronic systolic heart failure. Had labs 05/31/2024. Still dealing with lightheadedness. She does take cyproheptadine for vertigo. Denies chest pain, SOB, and palpitations. HPI: Tere Aragon is a 84 y.o. female history of [...] medical history of CHF (congestive heart failure) ([facility]), Coronary artery disease, Diabetes mellitus ([facility]), and Hyperlipidemia. Surgical History She has [...] mid LAD has 100% chronic total occlusion ([employer]TLE ROOM [employer]). The ramus coronary artery has a proximal [...] right PDA disease. 8. Outpatient followup with [facility]. 9. Since the right heart catheterization [...] 16 mm drug-eluting (more content not included)... [facility] 06-08-2024 History of Present illness Narrative Images from the original note were not included. Subjective Patient ID: Tere Aragon is a 84 y.o. female who presents for hypertension. Tere is present today for follow up hypertension. She recently saw Dr. Butler on 06/01/24 for a hospital follow up and he started her on Clonidine PRN of systolic is greater than 170 and changed her Losartan to BID. She also had a follow up with her shaft headman on 06/02/24 and they changed her Clonidine [...] History: Diagnosis Date CAD (coronary artery disease) ([facility]) CAD (coronary artery disease) ([facility]) Elevated Troponin (05/09/2022-05/11/2022) Chest pain 06/06/2022, 08/28/2022 CHF (congestive heart failure) ([facility]) Chronic systolic heart failure ([facility]) Coronary atherosclerosis ([facility]) Diabetes mellitus ([facility]) History of being hospitalized 09/04/2023 Bradycardia, URI, Metabolic Acidosis, Dehydration History of being hospitalized 05/28/2024 Hypertensive Emergency, CVA, CAD HLD (hyperlipidemia) ([facility]) Past Surgical History: Procedure Laterality Date [...] immunization - Influenza, high-dose seasonal, quadrivalent, PF (SAQ956) (Fluzone High Dose [place] 0.7mL dose) Provided pt with a flu shot today, she tolerated this well. Follow up for Appointment As Scheduled. documented in this encounter [facility] 06-07-2024 Telephone encounter Note Coreg sent to [facility]. [facility] 06-07-2024 Miscellaneous Notes Coreg sent to [facility]. documented in this encounter [facility] 06-02-2024 Note [facility] -currently s he [...] please maintain K+>4 and Mg > 2 [facility] 06-02-2024 Note Lipid abnormalities are stable continue Lipitor [facility] 06-02-2024 Note Hypertension is fluc tuating after [...] and to call office for any concerns [facility] 06-02-2024 Note Pt is here for a fol low up after being in [facility]. Pt denies chest pain, sob, and palpatations. She says she is not dizzy but she can feel something is not right. Pt says her sugar was high at 313. Review of Systems Constitutional: Positive for chills. Neurological: Positive for light-headedness and vertigo. All other systems reviewed and are negative. [facility] 06-02-2024 Note [facility] CARDIOLOGY PROGR ESS NOTE HPI: Tere Aragon is a 84 y.o. female here for hospital F/U HPI pleasant 84-year-old female presents today with her daughter for hospital follow-up. She was recently admitted to the [facility] end of May for uncontrolled hypertension, [...] this was after eating breakfast. Discharge summary [facility] 05/30/24 05/31/24 ED report Medical Decision [...] regurgitation. Left A (more content not included)... [facility] 06-01-2024 History of Present illness Narrative Images from the original note were not included. Subjective Patient ID: Tere Aragon is a 84 y.o. female who presents for No chief complaint on file.. Subjective Tere Aragon is an 82 y.o. female who presents for follow up of diabetes. Current symptoms include: none Patient denies foot ulcerations, polydipsia, and polyuria. Evaluation to date has included: fasting blood sugar, fasting lipid panel, and hemoglobin A1C. Home sugars: BGs range between 95 and 135 Tere Aragon is a 82 y.o. female who presents for follow-up of congestive heart failure. She denies chest pain, claudication, near-syncope, paroxysmal nocturnal dyspnea, and syncope. She states she is compliant all of the time with her medications. Flowsheet Row Patient Outreach from 05/31/[address] [facility] Information ED, Hospital or Residential Facility Discharge? Hospital Patient has been contacted within two business days of discharge Yes Have two attempts been made to contact the patient within two business days of being discharged? Yes Diagnosis Hypertensive emergency, suspected cerebrovascular accident, CAD Discharge Date 05/29/24 Discharged To: Home Setting Discharge Hospital [facility] Engagement Call Start Time [id number] Admission Date 05/28/24 Medications Discharge medications reviewed [...] History: Diagnosis Date CAD (coronary artery disease) ([facility]) CAD (coronary artery disease) ([facility]) Elevated Troponin (05/09/2022-05/11/2022) Chest pain 06/06/2022, 08/28/2022 CHF (congestive heart failure) ([facility]) Chronic systolic heart failure ([facility]) Coronary atherosclerosis ([facility]) Diabetes mellitus ([facility]) History of being hospitalized 09/04/2023 Bradycardia, URI, Metabolic Acidosis, Dehydration HLD (hyperlipidemia) ([facility]) Past Surgical History: Procedure Laterality Date ADENOIDECTOMY ANGIOGRAM 04/21/2022 PCI,RCA,PDA APPENDECTOMY 1963 CARDIAC CATHETERIZATION Right 03/07/2022 CARDIAC PACEMAKER PLACEMENT 09/07/2023 HYSTERECTOMY 1996 Visit Vitals BP (!) 146/94 Pulse 65 [...] Status Color, UA 05/05/2024 Yellow Final Clarity, 05/05/2024 Cloudy Final Glucose, UA 05/05/2024 Negative Negative - 1999(110) ++++ mg/dL Final Bilirubin, UA 05/05/2024 Negative Negative - 4(70) +++ mg/dL Final Ketones, UA 05/05/2024 Negative Negative - 160(16) ++++ mg/dL Final Spec Grav, UA 05/05/2024 1.000 1 - 1.03 Final Blood, 05/05/2024 Positive Negative - 50 Ky/mcL Final [...] 05/05/2024 1.000 1 - 1.03 Final Blood, 05/05/2024 Positive Negative - 50 Ky/mcL Final [...] gangrene, with long-term current use of insulin ([facility]) - POCT Glycated hemoglobin, total Benign essential hypertension ([facility]/HCC) - losartan (Cozaar) 50 MG tablet; Take [...] changes. documented in this encounter [facility] 05-05-2024 History of Present illness Narrative Ua completed documented in this encounter [facility] 04-26-2024 Telephone encounter Note Updated Rx sent. [facility] 04-26-2024 Miscellaneous Notes Updated Rx sent. Received fax from [facility] pharmacy for clarification on her Lantus Solostar directions. Called pt to see how she takes it and she states that since Dr. Butler took her off the Jardiance she is taking 25 units in the morning only. I filled out the form and faxed back to pharmacy and sent to [place] to send in new script to [facility]. Also states she never received ATB or pyridium form o/v on 04/19/24, sent that to for pt. documented in this encounter [facility] 04-26-2024 Telephone encounter Note Received fax from [facility] pharmacy for clarification on her Lantus Solostar directions. Called pt to see how she takes it and she states that since Dr. Butler took her off the Jardiance she is taking 25 units in the morning only. I filled out the form and faxed back to pharmacy and sent to [place] to send in new script to [facility]. Also states she never received ATB or pyridium form o/v on 04/19/24, sent that to for pt. [facility] 04-19-2024 History of Present illness Narrative Images from the original note were not included. HPI Med Refill Additional comments: Martha foreman Last edited by More Barcenas LPN on 04/19/2024 2:26 PM. Subjective Patient ID: Tere Aragon is a 84 y.o. female who presents [...] History: Diagnosis Date CAD (coronary artery disease) ([facility]) CAD (coronary artery disease) ([facility]) Elevated Troponin (05/09/2022-05/11/2022) Chest pain 06/06/2022, 08/28/2022 CHF (congestive heart failure) ([facility]) Chronic systolic heart failure ([facility]/HCC) Coronary atherosclerosis ([facility]) Diabetes mellitus ([facility]) History of being hospitalized 09/04/2023 Bradycardia, URI, Metabolic Acidosis, Dehydration HLD (hyperlipidemia) ([facility]) Past Surgical History: Procedure Laterality Date [...] Final Bilirubin, UA 04/19/2024 Negative Negative - (70) +++ mg/dL Final Ketones, UA 04/19/2024 Negative Negative - 160(16) ++++ mg/dL Final Spec Grav, UA 04/19/2024 1.005 1 - 1.03 Final Blood, UA 04/19/2024 Positive Negative - 50 Ky/mcL Final Trace Non-Hemolyzed pH, UA 04/19/2024 6.0 5 - 9 Final Protein, UA 04/19/2024 Negative Negative - 1999(20) ++++ mg/dL Final Urobilinogen, UA 04/19/2024 0.2 [...] Scheduled. documented in this encounter [facility] 09-22-2022 Evaluation note Encounter Date Diagnosis Assessment [...] and report elevations to primary care Aug, long term care pharmacist current use of insulin (ICD-10 - Z79.4) [employer] Other 09-11-2022 Discharge summary Author Herminia Lawler [facility] May 11, 2022 2:35pm Note Date/Time May 11, 2022 2:27pm [facility] [address] [place] [address] Discharge Summary Signed Patient: Tere Aragon MR#: [id number] : 1940 Acct:[id number] Age/Sex: 82 / F Adm Date: 2 Loc: Room: [address] [place] [address]: Herminia Lawler MD Copies to: [...] on exertion in February and went to [facility], She had Echo with EF [...] stated compliance. This time, patient presented at [facility] with epigastric pain, initial troponin was negative, EKG with no acute ischemic changes. 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 Last Echo on report with EF 40%. Repeat Troponin at [facility] uptrended to 600s, EKG with no acute ischemic changes again, given her recent cardiac history, raised the concern forstent thrombosis. Patient was started on IV heparin drip for presumptive NSTEMI and decision made to transfer patient over here to [facility] for possible cardiac cath. In our facility, [...] in 3-[address] AP at [facility] found to have incidentaloma left adrenal 3.6 mass.Need outpatient follow up. Also strict glucose follow up. Maybe endocrinology referral. ) Documented By: Herminia Lawler MD 05/11/22 14 25 Signed By: <Electronically signed by Herminia Lawler MD> 05/11/22 0[facility] Work Phone: 1(868) 344-621309-11-2022 Progress note Author [facility] May 11, 2022 12:15pm Note Date/Time May 11, 2022 12:12pm [facility] [address] [place] [address] Cardiology Progress Note Signed Patient: Tere Aragon MR#: [id number] : 1940 Acct:[id number] Age/Sex: 82 / F Adm Date: 2 Loc: Room: [address] [place] [address] Type: ADM IN Attending Dr: Herminia Lawler [...] Troponin I High Sens 180 H* 05/11/22 05/11/2222 04:49 04:49 04:49 APTT 43.7 H PHA [...] Code(s): I25.10 - Atherosclerotic heart disease of [place] coronary artery without angina pectoris Status: Acute (3) Epigastric abdominal pain: Assessment/Problem Details: Noncardiac. I recommend she be discharged on Pepcid. Code(s): R10.13 - Epigastric pain Status: Acute Plan Suitable for discharge. Continue home regimen. Add Pepcid. I will make arrangements for her to follow-up in the office with me in the next 1 to 2 months. Documented By: Itz Arguello MD [id number] Signed By: <Electronically signed by MD Itz Arguello> 05/11/22 12[facility] Work Phone: 1(115) 365-602909-10-2022 Progress note Author Herminia Lawler [facility] May 10, 2022 11:22am Note Date/Time May 10, 2022 11:05am [facility] [address] [place] [address] Hospitalist Progress Note Signed Patient: Tere Aragon MR#: [id number] : 1940 Acct:[id number] Age/Sex: 82 / F Adm Date: 2 Loc: Room: [address] [place] [address] Type: ADM IN Attending Dr: Herminia Lawler [...] then RCA and PDA on 04/21/22 at [facility] PE was ruled out by [...] with hyperglycemia -HbA1C 10.8 -Blood glucose at [facility] was 499. Negative for ketones. DKA was [...] <Electronically signed by Herminia Lawler MD> 05/10/[address] [place] [address] Ctr Work Phone: 1(347) 188-933809-10-2022 Progress note Author Itz Arguello [facility] May 10, 2022 8:46am Note Date/Time May 10, 2022 8:46am [facility] [address] [place] [address] Cardiology Progress Note Signed Patient: Tere Aragon MR#: [id number] : 1940 Acct:[id number] Age/Sex: 82 / F Adm Date: 2 Loc: Room: [address] [place] [address] Type: ADM IN Attending Dr: Herminia Lawler [...] % (Auto) 55.8 Lymph % (Auto) 35.8 [place] % (Auto) 6.3 Eos % (Auto) 1.5 Baso % (Auto) 0.6 Neut # (Auto) 3.4 Lymph # (Auto) 2.2 [place] # (Auto) 0.4 Eos # (Auto) 0.1 [...] MPV Neut % (Auto) Lymph % (Auto) [place] % (Auto) Eos % (Auto) Baso % (Auto) Neut # (Auto) Lymph # (Auto) [place] # (Auto) Eos # (Auto) Baso # [...] MPV Neut % (Auto) Lymph % (Auto) [place] % (Auto) Eos % (Auto) Baso % (Auto) Neut # (Auto) Lymph # (Auto) [place] # (Auto) Eos # (Auto) Baso # [...] MPV Neut % (Auto) Lymph % (Auto) [place] % (Auto) Eos % (Auto) Baso % (Auto) Neut # (Auto) Lymph # (Auto) [place] # (Auto) Eos # (Auto) Baso # [...] % (Auto) 45.7 Lymph % (Auto) 42.4 [place] % (Auto) 6.4 Eos % (Auto) 2.7 Baso % (Auto) 2.8 Neut # (Auto) 3.2 Lymph # (Auto) 3.0 [place] # (Auto) 0.4 Eos # (Auto) 0.2 [...] MPV Neut % (Auto) Lymph % (Auto) [place] % (Auto) Eos % (Auto) Baso % (Auto) Neut # (Auto) Lymph # (Auto) [place] # (Auto) Eos # (Auto) Baso # [...] artery disease): Assessment/Problem Details: Angiographic studies from [place] reviewed. She had a 99% ramus intermedius [...] Code(s): I25.10 - Atherosclerotic heart disease of [place] coronary artery without angina pectoris Status: Acute [...] signed by MD Itz Arguello> 05/10/22 0846 [facility] Work Phone: [phone]) 360-291709-09-2022 Consult note Author Itz Arguello [facility] May 09, 2022 5:03pm Note Date/Time May 09, 2022 5:03pm [facility] [address] [place] [address] Cardiology Consult Note Signed Patient: Tere Aragon MR#: [id number] : 1940 Acct:[id number] Age/Sex: 82 / F Adm Date: 2 Loc: Room: [address] [place] [address] Type: ADM IN Attending Dr: Herminia Lawler MD Copies to: MD Herminia Owens II, MD William Patrick McGuinn,MD~ Cardiology HPI History of Present Illness Consult [...] comparisonand will not use the enzymes from [facility] to make decisions. Presently it appears the [...] of heart artery stent x3 placed in [facility] February 2022 Social History Smoking [...] x10E3/uL Lymph # (Auto) 2.2 (1.00-4.8) x10E3/uL [place] # (Auto) 0.4 (0.0-0.8) x10E3/uL Eos # [...] Code(s): I25.10 - Atherosclerotic heart disease of [place] coronary artery without angina pectoris (2) DM [...] follow advise. Documented By: Itz Arguello MD [id number] Signed By: <Electronically signed by MD Itz Arguello> 05/09/22 [facility] Work Phone: 1([phone]) 653-729009-09-2022 History and physical note Author Herminia Lawler [facility] May 09, 2022 3:50pm Note Date/Time May 09, 2022 1:19pm [facility] [address] [place] [address] Hospitalist H&P Signed Patient: Tere Aragon MR#: [id number] : 1940 Acct:[id number] Age/Sex: 82 / F Adm Date: 2 Loc: Room: [address] [place] [address] Type: ADM IN Attending Dr: Herminia Lawler MD Copies to: MD Herminia Owens II, MD~ HPI DATE OF EXAMINATION: 05/09/22 CHIEF COMPLAINT: Epigastric pain HISTORY OF PRESENT ILLNESS: Patient is an 82 elderly female with PMH HTN, DM, CAD s/p recent PCIs, patient had symptoms of SOB and fatigue on exertion in February and went to [facility], She had Echo with EF [...] stated compliance. This time, patient presented at [facility] this morning, initial troponin was negative, EKG with no acute ischemic changes. 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 Last Echo on report with EF 40%.This morning, repeat Troponin at [facility] uptrended to 600s, EKG with no acute ischemic changes again, given her recent cardiac history, raised the concern forstent thrombosis/restenosis. Patient was started on IV heparin drip for presumptive NSTEMI and decision made to transfer patient over here to [facility] for possible cardiac cath. During my encounter, [...] of heart artery stent x3 placed in [facility] February 2022 Social History Smoking [...] then RCA and PDA on 04/21/22 at [facility] PE was ruled out by CTA Aortic dissection was ruled out by CTA -Patient was transferred from [facility] for NSTEMI for possible cardiac cath -Initial troponin at [facility] was normal then repeat was in 600s. Repeat troponin in our facility remains in the 600s. Patient denies any chest pain or epigastric pain, however, she does report bloating sensation in the epigastrium -Patient was started on heparin drip ACS protocol at [facility]. We will continuefor now. Further recommendations to follow by cardio -Heparin drip management per pharmacy protocol for ACS -Check serial troponin -Cardiology was consulted. We will follow-up recommendations -Continue DAPT, statin, beta-reginaldo -Check Echocardiogram -Admit to 4 P for close monitoring Uncontrolled Diabetes with hyperglycemia -HbA1C today 10.8 -Blood glucose at [facility] was 499. Negative for ketones. 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 May 11, 2022 2:35pm Note Date/Time May 11, 2022 2:27pm [facility] [address] [place] [address] Discharge Summary Signed Patient: Tere Aragon MR#: [id number] : 1940 Acct:[id number] Age/Sex: 82 / F Adm Date: 2 Loc: Room: 7A2881-[address]: Herminia Lawler MD Copies to: [...] on exertion in February and went to [facility], She had Echo with EF [...] stated compliance. This time, patient presented at [facility] with epigastric pain, initial troponin was negative, EKG with no acute ischemic changes. 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 Last Echo on report with EF 40%. Repeat Troponin at [place] uptrended to 600s, EKG with no acute ischemic changes again, given her recent cardiac history, raised the concern forstent thrombosis. Patient was started on IV heparin drip for presumptive NSTEMI and decision made to transfer patient over here to [facility] for possible cardiac cath. In our facility, [...] in 3-[address] AP at [facility] found to have incidentaloma left adrenal 3.6 mass.Need outpatient follow up. Also strict glucose follow up. Maybe endocrinology referral. ) Documented By: Herminia Lawler MD 05/11/22 14 25 Signed By: <Electronically signed by Herminia Lawler MD> 05/11/22 1435 [facility] Work Phone: Evaluation note* Diagnosis Onset Date Resolution Status CAD (coronary artery disease) acute DM (diabetes mellitus) acute Elevated troponin acute Epigastric abdominal pain [facility] [place] HLD (hyperlipidemia) acute HTN (hypertension) acute [facility] Work Phone: evaluation noteNo assessment information available [facility] Work Phone: evaluation note* Diagnosis TIA (transient ischemic attack)- Primary Unspecified transient cerebral ischemia Type 2 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 gangrene, with long-term current use of insulin (CMS/HCC) Benign essential hypertension (CMS/HCC) Essential hypertension, benign [facility] Diagnosis Benign essential hypertension (CMS/HCC) Essential hypertension, benign Chronic systolic heart failure (CMS/HCC) Chronic systolic heart failure [facility]* Diagnosis Benign essential hypertension (CMS/HCC)- Primary Essential hypertension, benign Encounter for immunization [facility]* Diagnosis Benign essential hypertension (CMS/HCC)- Primary Essential hypertension, benign Type 2 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 gangrene, with long-term current use of insulin (CMS/HCC) [facility]* Diagnosis Acute cystitis with hematuria- Primary Dysuria Diabetic peripheral neuropathy (CMS/HCC) Type II or unspecified type diabetes mellitus with neurological manifestations, not stated as uncontrolled Type 2 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 gangrene, with long-term current use of insulin (CMS/HCC) [facility] Diagnosis Acute cystitis with hematuria Diabetic peripheral neuropathy (CMS/HCC) Type II or unspecified type diabetes mellitus with neurological manifestations, not stated as uncontrolled Type 2 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 gangrene, with long-term current use of insulin ([facility]) documented in this encounter [facility]* Diagnosis Acute cystitis with hematuria documented in this encounter [facility]* Diagnosis Type 2 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 gangrene, unspecified whether fdc insulin use ([facility])- Primary Benign essential hypertension ([facility]/HCC) Essential hypertension, benign Primary insomnia Persistent disorder of initiating or maintaining sleep documented in this encounter [facility]* Diagnosis Uncontrolled hypertension (CMS/HCC)- Primary Mass of left adrenal gland (CMS/HCC) Unspecified disorder of adrenal glands Gastroesophageal reflux disease without esophagitis Esophageal reflux Diabetic peripheral neuropathy ([facility]) Type II or unspecified type diabetes mellitus with neurological manifestations, not stated as uncontrolled Type 2 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 gangrene, with long-term current use of insulin ([facility]) Chronic systolic heart failure ([facility]/HCC) Chronic systolic heart failure Primary insomnia Persistent disorder of initiating or maintaining sleep Bilateral leg edema Edema Renal artery stenosis ([facility]) Atherosclerosis of renal artery documented in this encounter [facility] Discharge instructions Additional Instructions - Follow-up with your primary care physician for diabetes control - Incidental finding of left adrenal mass 3.6 cm. Follow up as outpatient - Referral to endocrinology clinic for better diabetes control and labile blood glucose management - Continue to follow-up with your private cardiology -Return to ER in case of worsening in symptoms or [facility]: Reason for visit NarrativeSelf Referral, [facility] Visit Codes, TKM 2 IDDMNorth [employer] Other Summary Purpose Family History No Family [...] Referral Specialty Diagnoses / Procedures Referred By [place] t Referred To Contact Diagnoses Acute cystitis with hematuria Beverly Paredes PA [address] [facility] [address] [place] [address] Referral ID Status Reason Start Date Expiration Date V isits Requested Visits Authorized [id number] Pending Review 04/26/2024 10/23/2024 1 1 Additional Source Comments INFORMATION SOURCE (unrecogn ized section and content) DATE CREATED AUTHOR 04/28/2022 [facility] DATE CREATED AUTHOR AUTHOR'S ORGANIZ ATION 05/27/2022 [facility] DATE CREATED AUTHOR AUTHOR'S ORGANIZ ATION 12/05/2022 [facility] DATE CREATED AUTHOR AUTHOR'S ORGANIZ ATION 05/14/2023 [facility] DATE CREATED AUTHOR AUTHOR'S ORGANIZ ATION 09/28/2023 [facility] DATE CREATED AUTHOR AUTHOR'S ORGANIZ ATION 09/22/[address] [facility] DATE CREATED AUTHOR AUTHOR'S ORGANIZ ATION 10/06/2024 [facility] Care Teams (unrecognized sec tion and [...] Butler II MD Primary Care Provider Active Babysitter Relationship Specialty Start Date End Date Rodrick Butler MD [address] [facility] [address] [place] [address] PCP - [employer] 08/31/22 Rodrick Butler MD [address] [facility] [address] [place] [address] PCP - General Internal Medicine 01/14/23 Babysitter Relationship Specialty Start Date End Date Rodrick Butler MD [address] [facility] [address] [place] [address] PCP - [employer] 08/31/22 Rodrick Butler MD [address] [facility] [address] [place] [address] PCP - General Internal Medicine 01/14/23 Babysitter Relationship Specialty Start Date End Date Rodrick Butler MD [address] [facility] [address] [place] [address] PCP - [employer] 08/31/22 Rodrick Butler MD [address] [facility] [address] [place] [address] PCP - General Internal Medicine 01/14/23 Babysitter Relationship Specialty Start Date End Date Rodrick Butler MD [address] [facility] [address] [place] [address] PCP - [employer] 08/31/22 Rodrick Butler MD [address] [facility] [address] [place] [address] PCP - General Internal Medicine 01/14/23 Babysitter Relationship Specialty Start Date End Date Rodrick Butler MD [address] [facility] [address] [place] [address] PCP - [employer] 08/31/22 Rodrick Butler MD [address] [facility] [address] [place] [address] PCP - General Internal Medicine 01/14/23 Babysitter Relationship Specialty Start Date End Date Rodrick Butler MD [address] [facility] [address] [place] [address] PCP - [employer] 08/31/22 Rodrick Butler MD [address] [facility] [address] [place] [address] PCP - General Internal Medicine 01/14/23 Babysitter Relationship Specialty Start Date End Date Rodrick Butler MD [address] [facility] [address] [place] [address] PCP - [employer] 08/31/22 Rodrick Butler MD [address] [facility] [address] [place] [address] PCP - General Internal Medicine 01/14/23 Babysitter Relationship Specialty Start Date End Date Rodrick Butler MD [address] [facility] [address] [place] [address] PCP - [employer] 08/31/22 Rodrick Butler MD [address] [facility] [address] [place] [address] PCP - General Internal Medicine 01/14/23 Babysitter Relationship Specialty Start Date End Date Rodrick Butler MD [address] [facility] [address] [place] [address] PCP - [employer] 08/31/22 Rodrick Butler MD [address] [facility] [address] [place] [address] PCP - General Internal Medicine 01/14/23 Babysitter Relationship Specialty Start Date End Date Rodrick Butler MD [address] [facility] [address] [place] [address] PCP - [employer] 08/31/22 Rodrick Butler MD [address] [facility] [address] [place] [address] PCP - General Internal Medicine 01/14/23 Babysitter Relationship Specialty Start Date End Date Rodrick Butler MD [address] [facility] [address] [place] [address] PCP - [employer] 08/31/22 Rodrick Butler MD [address] [facility] [address] [place] [address] PCP - General Internal Medicine 01/14/23 Babysitter Relationship Specialty Start Date End Date Rodrick Butler MD [address] [facility] [address] [place] [address] PCP - [employer] 08/31/22 Rodrick Butler MD [address] [facility] [address] [place] [address] PCP - General Internal Medicine 01/14/23 Babysitter Relationship Specialty Start Date End Date Rodrick Butler MD [address] [facility] [address] [place] [address] PCP - [employer] 08/31/22 Rodrick Butler MD [address] [facility] [address] [place] [address] PCP - General Internal Medicine 01/14/23 Goals (unrecognized section and content) Goals may be documented in a n alternate section Reason for Visit (unrecogniz ed section and content) Reason Comments Hypertension Medication added speedy nidine losartan Reason Comments Med Refill Lantus solostar Reason Comments UTI Pt finished cipro st ates she has dysuria and would like ua checked--sent for culture Reason Comments Diabetes Hypertension Med Refill Reason Comments Med Refill Furosemide, Potassiu m, Lantus FOR RECORDS PERTAINING TO PATIENTS WHO ARE [...] BE BASED ON THE PRIMARY CLINICAL RECORDS. [facility]. provides no warranty or guarantee of the accuracy or completeness of information in this document.
[2024-10-10 10:53] LABS: Anion Gap 12.8; BUN Creatinine Ratio 18.8; Calcium 9.4 mg/dL (8.5-10.1); Carbon Dioxide 29.9 mmol/L (21.0-32.0); Chloride 99 mmol/L (98-107); Estimated GFR (African America 46 (>=60 mL/min/1.73m^2); Estimated GFR (Non-African Ame 38 (>=60 mL/min/1.73m^2); Glucose 325 mg/dL (74-106); Potassium 4.7 mmol/L (3.5-5.1); Sodium 137 mmol/L (136-145)
== END 2024-10-10 09:29 | disposition home or self-care (01) ==
PROVIDERS: PCP Internal Medicine; Visit Provider Internal Medicine Cardiovascular Disease
DX: I10 Essential (primary) hypertension (principal)
CPT/HCPCS: 36415; 80048

== ENCOUNTER 2024-11-02 09:36 | Outpatient (OUT) | payer MEDICARE, SELFPAY ==
[2024-11-02 10:37] LABS: Anion Gap 10.6; BUN Creatinine Ratio 15.9; Calcium 9.1 mg/dL (8.5-10.1); Carbon Dioxide 25.8 mmol/L (21.0-32.0); Chloride 100 mmol/L (98-107); Estimated GFR (African America 46 (>=60 mL/min/1.73m^2); Estimated GFR (Non-African Ame 38 (>=60 mL/min/1.73m^2); Glucose 226 mg/dL (74-106); Potassium 5.4 mmol/L (3.5-5.1); Sodium 131 mmol/L (136-145)
== END 2024-11-02 09:37 | disposition home or self-care (01) ==
LOC: LAB 09:38
PROVIDERS: PCP Internal Medicine; Visit Provider Internal Medicine Cardiovascular Disease
DX: I11.0 Hypertensive heart disease with heart failure (principal)
CPT/HCPCS: 36415; 80048

== ENCOUNTER 2024-12-13 13:24 | Outpatient (OUT) | payer MEDICARE, SELFPAY ==
[2024-12-13 14:19] LABS: BUN Creatinine Ratio 13.5; Calcium 9.1 mg/dL (8.5-10.1); Chloride 103 mmol/L (98-107); Estimated GFR (African America 43 (>=60 mL/min/1.73m^2); Estimated GFR (Non-African Ame 35 (>=60 mL/min/1.73m^2); Glucose 98 mg/dL (74-106); Sodium 140 mmol/L (136-145)
== END 2024-12-13 13:25 | disposition home or self-care (01) ==
PROVIDERS: PCP Internal Medicine; Visit Provider Internal Medicine Cardiovascular Disease
DX: I50.22 Chronic systolic (congestive) heart failure (principal)
CPT/HCPCS: 36415; 80048

== ENCOUNTER 2025-01-31 08:19 | Outpatient (OUT) | payer MEDICARE, SELFPAY ==
--- OUTSIDE RECORDS SUMMARY | 2025-01-31 08:25 | XMS_ITS | Encounter Summary ---
Author Organization [facility] Address [address] [place] [address] Care Team Providers Care Sr Community Manager Name Role Phone Rodrick Butler MD Unavailable [phone] Rodrick Butler MD Primary Care Provider [phone] Jessica Rubi RN Unavailable [phone] Rodrick Butler MD Unavailable [phone] Ivelisse Baptiste LPN Unavailable Unavailable Encounter Details Date Type Department Care Team (Late st Contact Info) Description 09/07/2023 Abstract [facility] [address] [facility] [address] [place] [address] Rodrick Butler MD 112 [facility] 110 [place] [address] Social History Tobacco Use Types Packs/Day Years Used Date Smoking Tobacco: Never Smokeless Tobacco: Never Alcohol Use Standard Drinks/Week Comments Never 0 (1 standard drink = 0.6 oz pur e alcohol) Humiliation, Afraid, Rape, and Kick questionnair e Answer Date Recorded Within the last year, have y ou been afraid of your partner or ex-partner? No 04/23/2023 Within the last year, have y ou been humiliated or emotionally abused in other ways by your partner or ex-partner? No Within the last year, have y ou been kicked, hit, slapped, or otherwise physically hurt by your partner or ex-partner? No 04/23/2023 Within the last year, have y ou been raped or forced to have any kind of sexual activity by your partner or ex-partner? No 04/23/2023 Social Connection and Isolat ion Panel [NHANES] Answer Date Recorded In a typical week, how many times do you talk on the phone with family, friends, or neighbors? More than three times a week 04/23/2023 How often do you get togethe r with friends or relatives? More than three times a week 04/23/2023 How often do you attend chur ch or yazdanism services? More than 4 times per year 04/23/2023 Do you belong to any clubs o r organizations such as mormon groups, unions, fraternal or athletic groups, or school groups? Yes 04/23/2023 How often do you attend meet ings of the clubs or organizations you belong to? More than 4 times per year 04/23/2023 Are you , , di vorced, , never , or living with a partner? 04/23/2023 AUDIT-C Answer Date Recorded Q1: How often do you have a drink containing alcohol? Never 04/23/2023 Q2: How many drinks containi ng alcohol do you have on a typical day when you are drinking? Patient does not drink Q3: How often do you have si x or more drinks on one occasion? Never 04/23/2023 Overall Financial Resource Strain (CARDIA) Answe r Date Recorded How hard is it for you to pa y for the very basics like food, housing, medical care, and heating? Not hard at all 04/23/2023 [facility] - Occupational Stress Questionnaire Answer Date Recorded Do you feel stress - tense, restless, nervous, or anxious, or unable to sleep at night because your mind is troubled all the time - these days? Not at all 04/23/2023 Exercise Vital Sign Answer Date Recorde d On average, how many days pe r week do you engage in moderate to strenuous exercise (like a brisk walk)? 0 days 04/23/2023 On average, how many minutes do you engage in exercise at this level? 0 min 04/23/2023 Hunger Vital Sign Answer Date Recorded Within the past 12 months, y ou worried that your food would run out before you got the money to buy more. Never true 04/23/20 23 Within the past 12 months, t he food you bought just didn't last and you didn't have money to get more. Never true 04/23/2023 PRAPARE - Transportation Answer Date Re corded In the past 12 months, has l ack of transportation kept you from medical appointments or from getting medications? No 04/01 In the past 12 months, has l ack of transportation kept you from meetings, work, or from getting things needed for daily living? No 04/23/2023 Housing Stability Vital Sign Answer Raheel e Recorded In the last 12 months, was t here a time when you were not able to pay the mortgage or rent on time? No 04/23/2023 In the last 12 months, how many places have you lived? 1 04/23/2023 In the last 12 months, was t here a time when you did not have a steady place to sleep or slept in a chcf (including now)? No 04/23/2023 Comments Unknown Sex and Gender Information Value Date Recorded Sex Assigned at Not on file Legal Sex Female 7:20 PM EDT Gender Identity Not on file Sexual Orientation Not on file documented as of this encounter Plan of Treatment Upcoming Encounters Date Type Department Care Team (Late st Contact Info) Description 05/19/2025 10:00 AM EDT Office Visit [facility] [address] [facility] [address] [place] [address] Rodrick Butler MD [address] [facility] [address] [place] [address] documented as of this encounter Visit Diagnoses Not on filedocumented in this encounter Care Teams Sr Community Manager Relationship Specialty Start Date End Date Rodrick Butler MD [address] [place] [address] [place] [address] PCP - [employer] 08/31/22 11/04/24 Rodrick Butler MD [address] [place] [place] [address] PCP - General Internal Medicine 01/14/23 Rodrick Butler MD [address] [place] [place] [address] PCP - Rosetta CLAROS 08/31/24 Jessica Rubi, RN Clinical Advocate Family Medicine 10/07/24 11/18/24 Ivelisse Baptiste LPN 11/18/24 documented as of this encounter
--- OUTSIDE RECORDS SUMMARY | 2025-01-31 08:25 | XMS_ITS | Encounter Summary ---
Author Organization [facility] Address [address] [place] [address] Care Team Providers Care Hemodialysis Technician Name Role Phone Rodrick Butler MD Unavailable [phone] Rodrick Butler MD Primary Care Provider [phone] Jessica Rubi RN Unavailable [phone] Rodrick Butler MD Unavailable [phone] Ivelisse Baptiste LPN Unavailable Unavailable Encounter Details Date Type Department Care Team (Late st Contact Info) Description 09/30/2023 Abstract [facility] [address] [facility] 110 [place] [address] Rodrick Butler MD 112 [facility] 110 [place] [address] Social History Tobacco Use Types [...] often do you attend chur ch or episcopalian services? More than 4 times per year 04/23/2023 Do you belong to any clubs o r organizations such as mosque groups, unions, fraternal or athletic groups, or [...] and heating? Not hard at all 04/23/2023 [facility] - [...] Visit [facility] [address] [facility] [address] [place] [address] Rodrick Butler MD [address] [facility] [address] [place] [address] documented as of this encounter Visit Diagnoses Not on filedocumented in this encounter Care Teams Hemodialysis Technician Relationship Specialty Start Date End Date Rodrick Butler MD [address] [place] [address] [place] [address] PCP - [employer] 08/31/22 11/04/24 Rodrick Butler MD [address] [address] [place] [address] PCP - General Internal Medicine 01/14/23 Rodrick Butler MD [address] [place] [address] [place] [address] PCP - Rosetta CLAROS 08/31/24 Jessica Rubi, RN Clinical Advocate Family Medicine 10/07/24 11/18/24 Ivelisse Baptiste LPN 11/18/24 documented as of this encounter
--- OUTSIDE RECORDS SUMMARY | 2025-01-31 08:25 | XMS_ITS | Encounter Summary ---
Author Organization [facility] Address [address] [place] [address] Care Team Providers Care Brass And Wind Instrument Repairer Name Role Phone Rodrick Butler MD Unavailable [phone] Rodrick Butler MD Primary Care Provider [phone] Jessica Rubi RN Unavailable [phone] Rodrick Butler MD Unavailable [phone] Ivelisse Baptiste LPN Unavailable Unavailable Encounter Details Date Type Department Care Team (Late st Contact Info) Description 09/07/2023 Abstract [facility] [address] [facility] [address] [place] [address] Rodrick Butler MD 112 [facility] 110 [place] [address] Social History Tobacco Use Types [...] often do you attend chur ch or baptism services? More than 4 times per year 04/23/2023 Do you belong to any clubs o r organizations such as congregation groups, unions, fraternal or athletic groups, or [...] and heating? Not hard at all 04/23/2023 [facility] - Occupational Stress [...] place to sleep or slept in a fpc (including now)? No 04/23/2023 Comments Unknown Sex [...] Visit [facility] [address] [facility] [address] [place] [address] Rodrick Butler MD [address] [facility] [address] [place] [address] documented as of this encounter Visit Diagnoses Not on filedocumented in this encounter Care Teams Brass And Wind Instrument Repairer Relationship Specialty Start Date End Date Rodrick Butler MD [address] [place] [address] [place] [address] PCP - [employer] 08/31/22 11/04/24 Rodrick Butler MD [address] [place] [address] [place] [address] PCP - General Internal Medicine 01/14/23 Rodrick Butler MD [address] [place] [address] [place] [address] PCP - Rosetta CLAROS 08/31/24 Jessica Rubi, RN Clinical Advocate Family Medicine 10/07/24 11/18/24 Ivelisse Baptiste LPN 11/18/24 documented as of this encounter
--- OUTSIDE RECORDS SUMMARY | 2025-01-31 08:25 | XMS_ITS | Encounter Summary ---
Author Organization [facility] Address [address] [place] [address] Care Team Providers Care Deburr Operator Name Role Phone Rodrick Butler MD Unavailable [phone] Rodrick Butler MD Primary Care Provider [phone] Jessica Rubi RN Unavailable [phone] Rodrick Butler MD Unavailable [phone] Ivelisse Baptiste LPN Unavailable Unavailable Encounter Details Date Type Department Care Team (Late st Contact Info) Description 09/08/2023 Abstract [facility] [address] [facility] [address] [place] [address] Rodrick Butler MD 112 [facility] 110 [place] [address] Social History Tobacco Use Types [...] often do you attend chur ch or catholic services? More than 4 times per year 04/23/2023 Do you belong to any clubs o r organizations such as jain groups, unions, fraternal or athletic groups, or [...] and heating? Not hard at all 04/23/2023 [facility] - Occupational Stress [...] place to sleep or slept in a [place] (including now)? No 04/23/2023 Comments Unknown Sex [...] Visit [facility] [address] [facility] [address] [place] [address] Rodrick Butler MD [address] [facility] [address] [place] [address] documented as of this encounter Visit Diagnoses Not on filedocumented in this encounter Care Teams Deburr Operator Relationship Specialty Start Date End Date Rodrick Butler MD [address] [place] [address] PCP - [employer] 08/31/22 11/04/24 Rodrick Butler MD [address] [place] [address] PCP - General Internal Medicine 01/14/23 Rodrick Butler MD [address] [place] [address] [place] [address] PCP - Rosetta CLAROS 08/31/24 Jessica Rubi, RN Clinical Advocate Family Medicine 10/07/24 11/18/24 Ivelisse Baptiste LPN 11/18/24 documented as of this encounter
--- OUTSIDE RECORDS SUMMARY | 2025-01-31 08:25 | XMS_ITS | Clinical Summary ---
Author Organization [facility] Address [address] [place] [address] Care Team Providers Care Medical Review Coordinator Name Role Phone Rodrick Butler MD Primary Care Provider [phone] Rodrick Butler MD Unavailable [phone] Ivelisse Baptiste LPN Unavailable Unavailable Allergies Active Allergy Reactions Criticality Noted Date Comments Amlodipine Swelling Medium 09/12/2024 Swelling in feet Clonidine Other 09/20/2024 Dry Mouth Dapagliflozin Other 10/04/2024 Empagliflozin Other Medium 01/27/2023 Yeast Infections Iodine 2002 Sacubitril-Valsartan Other 07/13/2024 hypertension Shellfish Allergy 2002 vomitting, diarrhea Shellfish-Derived Products Unknown 01/27/2023 Sulfa Antibiotics Unknown,Swelling Medium 2002 sore in mouth Medications aspirin 81 MG EC tablet Take 81 mg by mouth in the morning. Active glucose blood (Accu-Chek Briana Plus) test strip 1 each in the morning and 1 each before bedtime. Active atorvastatin (Lipitor) 80 MG tabletIndication s:Atherosclerosi s of [place] coronary artery of [place] heart without angina pectoris (CMS/HCC),Mixed hyperlipidemia (CMS/HCC) Take 1 tablet (80 mg) by mouth at bedtime 100 tablet 3 024 2024 Active Blood Glucose Monitoring Suppl (Blood Glucose Monitor System) w/Device kitIndications:T ype 2 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 gangrene, unspecified whether longterm insulin use (CMS/HCC) 1 each Daily 1 kit 025 Active Glucose Blood (Blood Glucose Test) stripIndications :Type 2 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 gangrene, unspecified whether terminal computer operator insulin use ([facility]) 1 each by In Vitro route Daily 100 strip 3 025 Active Lancets 30G miscIndications: Type 2 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 gangrene, unspecified whether longterm insulin use ([facility]) 1 each Daily 100 each 3 025 Active latanoprost (Xalatan) 0.005 % ophthalmic solution Administer 1 drop into both eyes at bedtime 024 Active furosemide (Lasix) 20 MG tabletIndication s:Bilateral leg edema Take 1 tablet (20 mg) by mouth Daily as needed (Swelling) 90 tablet 1 025 Active traZODone (Desyrel) 50 MG tabletIndication s:Primary insomnia Take 1.5-2 tablets (75-100 mg) by mouth as needed at bedtime for sleep 025 Active cyproheptadine (Periactin) 4 MG tabletIndication s:Vertigo TAKE 1/2 TABLET AT BEDTIME 45 tablet 3 025 Active spironolactone (Aldactone) 50 MG tablet Take 25 mg by mouth in the morning. 025 2025 Active insulin glargine (Lantus SoloStar) 100 UNIT/ML penIndications:D iabetic peripheral neuropathy ([facility]),Type 2 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 gangrene, with long-term current use of insulin ([facility]) INJECT 30 UNITS SUBCUTANEOUSLY (UNDER THE SKIN) IN THE MORNING 15 mL 3 025 Active sacubitril-valsa rtan (Entresto) 97-103 MG tabletIndication s:Chronic systolic heart failure ([facility]) Take 1 tablet by mouth in the morning and 1 tablet before bedtime. 60 tablet 11 025 2025 Active carvedilol (Coreg) 6.25 MG tabletIndication s:Benign essential hypertension ([facility]) Take 1 tablet (6.25 mg) by mouth in the morning and 1 tablet (6.25 mg) in the evening. Take with meals. TAKE WITH THE 12.5MG COREG. 200 tablet 3 025 Active Janumet XR 100-1000 MG per 24 hr tabletIndication s:Type 2 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 gangrene, unspecified whether terminal computer operator insulin use (CMS/HCC) TAKE 1 TABLET BY MOUTH IN THE MORNING WITH A MEAL 30 tablet 11 025 Active carvedilol (Coreg) 12.5 MG tabletIndication s:Benign essential hypertension (CMS/HCC),Chroni c systolic heart failure (CMS/HCC) Take 1 tablet (12.5 mg) by mouth in the morning and 1 tablet (12.5 mg) in the evening. Take with meals. 200 tablet 3 025 2025 Active pantoprazole (ProtoNix) 40 MG EC tabletIndication s:Gastroesophage al reflux disease without esophagitis TAKE 1 TABLET BY MOUTH IN THE MORNING BEFORE MEALS. DO NOT CRUSH, CHEW, OR SPLIT 30 tablet 2 025 Active pantoprazole (ProtoNix) 40 MG EC tabletIndication s:Gastroesophage al reflux disease without esophagitis Take 1 tablet (40 mg) by mouth in the morning. Take before meals. Do not crush, chew, or split.. 30 tablet 2 025 2024 Discontinued carvedilol (Coreg) 12.5 MG tabletIndication s:Benign essential hypertension (CMS/HCC),Chroni c systolic heart failure (CMS/HCC) Take 1 tablet (12.5 mg) by mouth in the morning and 1 tablet (12.5 mg) in the evening. Take with meals. 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, associated with type 2 diabetes mellitus 03/30/2024 S/P placement of cardiac pacemaker 09/17/2023 Cardiac pacemaker in situ 09/16/2023 Overview (11/30/2023): Last Assessment & Plan: Incision healing well- no s/s of distress and RTC at 1 month for device interrogation Heart block 09/07/2023 Abnormal gait 01/27/2023 Ataxia 01/27/2023 Atherosclerosis of coronary artery 01/27/2023 Benign essential hypertension 01/27/2023 Central vestibular vertigo 01/27/2023 Chronic systolic heart failure 01/27/2023 Diabetic peripheral neuropathy 01/27/2023 Diabetic renal disease 01/27/2023 Diverticulitis 01/27/2023 Hyperlipidemia 01/27/2023 Insomnia 01/27/2023 Mass of left adrenal gland 01/27/2023 Ovarian failure 01/27/2023 Skin sensation disturbance 01/27/2023 Type 2 diabetes mellitus wit h diabetic peripheral angiopathy without gangrene 01/27/2023 Benign hypertensive cardiomyopathy with heart fa ilure 08/01/2022 Overview (04/14/2023): Last Assessment & Plan: B/p at home is well controlled Continue all medications B/p may be elevated here r/t white coat syndrome Non-smoker 08/01/2022 Restless legs syndrome 08/01/2022 Presence of drug coated stent in right coronary artery 06/25/2022 Overview (04/14/2023): GRETEL to RAMUS- 03/07/22 RCA GRETEL staged PCI on 04/21/22 Last Assessment & Plan: Continue DAPT for 1 year from 04/21/22 implantation of DEC to RCA Lightheadedness 03/12/2022 Resolved Problems Problem Noted Date Diagnosed Date Resolved Date Type 2 diabetes mellitus wit hout complications 01/27/2023 03/30/2024 Diabetes mellitus 08/01/2022 03/30/2024 Encounters Date Type Department Care Team Description 01/18/2025 Refill [facility] [address] [place] [address] [place] [address] Sharri Vick, DARON Gastroesophageal reflux disease without esophagitis 01/16/2025 11:00 AM EDT Office Visit [facility] [address] [place] [address] [place] [address] Rodrick Butler MD Type 2 diabetes mellitus with other specified complication, with long-term current use of insulin (Primary Dx); Benign essential hypertension ([facility]); Chronic systolic heart failure ([facility]); Renal artery stenosis ([facility]); Diabetic nephropathy associated with type 2 diabetes mellitus (HCC) ([facility]) 01/16/2025 Bamboo flowsheet [facility] [address] [place] [address] [place] [address] Rodrick Butler MD 01/16/2025 Travel 12/20/2024 Refill [facility] [address] [place] [address] [place] [address] Rodrick Butler MD Type 2 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 gangrene, unspecified whether longterm insulin use ([facility]) 12/20/2024 Telephone [facility] [address] [place] [address] [place] [address] Rodrick Butler MD 12/19/2024 Telephone [facility] [address] [place] [address] [place] [address] Rodrick Butler MD 12/13/2024 Clinisync Result Encounter [facility] External Department Unsolicited Provider, Generic External Data 12/12/2024 Patient Outreach [facility] [address] [place] [address] Ivelisse Baptiste LPN 11/14/2024 11:00 AM EDT Office Visit [facility] [address] [place] [address] [place] [address] Rodrick Butler MD Chronic systolic heart failure ([facility]) (Primary Dx); Type 2 diabetes mellitus with other specified complication, with long-term current use of insulin ([facility]) 11/14/2024 Bamboo flowsheet [facility] [address] [place] [address] [place] [address] Rodrick Butler MD 11/14/2024 Travel 11/02/2024 Clinisync Result Encounter [facility] External Department Unsolicited Provider, Generic External Data from Last 3 Months Immunizations Immunization Administration Dates Next Due Influenza, High-dose Seasona l, Quadrivalent, Preservative Free 06/08/2024,06/16/2023,05/30/2022 Influenza, injectable, MDCK, preservative free, quadrivalent 08/14/2021 Influenza, injectable, quadr ivalent, preservative free 05/18/2020 Influenza, seasonal, injectable 06/27/2013 Influenza, trivalent, adjuvanted 06/10/2018 Pneumococcal Conjugate PCV 20 12/09/2023 Family History Medical History Relation Name Comments Heart disease Father Diabetes Mother Heart disease Mother Breast cancer Sibling Diabetes Sibling Heart disease Sibling Other Sibling 2 brothers & 2 sisters, . Uterine cancer Sibling Relation Name Status Comments Father Mother Sibling 5 brothers and 4 sisters Sister Son 3 sons Social History Tobacco Use Types Packs/Day Years Used Date Smoking Tobacco: Never Smokeless Tobacco: Never Tobacco Cessation:Counseling Given: Not Answered Alcohol Use Standard Drinks/Week Comments Never 0 (1 standard drink = 0.6 oz pur e alcohol) B1300 Health Literacy Answer Date Recor ded How often do you need to hav e someone help you when you read instructions, pamphlets, or other written material from your doctor or pharmacy? Rarely 06/21/2024 Humiliation, Afraid, Rape, and Kick questionnair e Answer Date Recorded Within the last year, have y ou been afraid of your partner or ex-partner? No 06/21/2024 Within the last year, have y ou been humiliated or emotionally abused in other ways by your partner or ex-partner? No Within the last year, have y ou been kicked, hit, slapped, or otherwise physically hurt by your partner or ex-partner? No 06/21/2024 Within the last year, have y ou been raped or forced to have any kind of sexual activity by your partner or ex-partner? No 06/21/2024 Social Connection and Isolat ion Panel [NHANES] Answer Date Recorded In a typical week, how many times do you talk on the phone with family, friends, or neighbors? More than three times a week 06/21/2024 How often do you get togethe r with friends or relatives? More than three times a week 06/21/2024 How often do you attend chur or roman catholic services? More than 4 times per year 06/21/2024 Do you belong to any clubs o r organizations such as religious groups, unions, fraternal or athletic groups, or school groups? Yes 06/21/2024 How often do you attend meet ings of the clubs or organizations you belong to? More than 4 times per year 06/21/2024 Are you , , di vorced, , never , or living with a partner? 06/21/2024 AUDIT-C Answer Date Recorded Q1: How often do you have a drink containing alcohol? Never 06/21/2024 Q2: How many drinks containi ng alcohol do you have on a typical day when you are drinking? Patient does not drink Q3: How often do you have si x or more drinks on one occasion? Never 06/21/2024 Overall Financial Resource Strain (CARDIA) Answe r Date Recorded How hard is it for you to pa y for the very basics like food, housing, medical care, and heating? Not hard at all 06/21/2024 PHQ-2 Answer Date Recorded Patient Health Questionnaire-2 Score 0 12/02/2023 [facility] - Occupational Stress Questionnaire Answer Date Recorded Do you feel stress - tense, restless, nervous, or anxious, or unable to sleep at night because your mind is troubled all the time - these days? Only a little 06/21/2024 Exercise Vital Sign Answer Date Recorde d On average, how many days pe r week do you engage in moderate to strenuous exercise (like a brisk walk)? 0 days 09/14/2024 On average, how many minutes do you engage in exercise at this level? 0 min 09/14/2024 Hunger Vital Sign Answer Date Recorded Within the past 12 months, y ou worried that your food would run out before you got the money to buy more. Never true 06/21/20 24 Within the past 12 months, t he food you bought just didn't last and you didn't have money to get more. Never true 06/21/2024 PRAPARE - Transportation Answer Date Re corded In the past 12 months, has l ack of transportation kept you from medical appointments or from getting medications? No 06/01 In the past 12 months, has l ack of transportation kept you from meetings, work, or from getting things needed for daily living? No 06/21/2024 Housing Stability Vital Sign Answer Raheel e [...] place to sleep or slept in a long-term (including now)? No 04/23/2023 Housing Stability Vital Sign Answer Raheel e Recorded In the last 12 months, was t here a time when you were not able to pay the mortgage or rent on time? No 06/21/2024 In the past 12 months, how m any times have you moved where you were living? 0 06/21/2024 At any time in the past 12 m [facility], were you homeless or living in a long-term (including now)? No 06/21/2024 Comments Unknown Sex and Gender Information Value Date Recorded Sex Assigned at Not on file Legal Sex Female 7:20 PM EDT Gender Identity Not on file Sexual Orientation Not on file Last Filed Vital Signs Vital Sign Reading Time Taken Comments Blood Pressure 124/62 01/16/2025 10:44 AM EDT Pulse 62 01/16/2025 10:44 AM EDT Temperature - - Respiratory Rate 17 10/17/2024 1:10 PM EST Oxygen Saturation 97% 01/16/2025 10:44 AM EDT Inhaled Oxygen Concentration - - Weight 70.3 kg (155 lb) 01/16/2025 10:44 AM EDT Height 170.2 cm (5' 7 ) 01/16/2025 10:44 AM EDT Body Mass Index 24.28 01/16/2025 10:44 AM EDT Plan of Treatment Upcoming Encounters Date Type Department Care Team (Late st Contact Info) Description 05/19/2025 10:00 AM EDT Office Visit [facility] 112 [facility] [address] [place] [address] Rodrick Butler MD [address] [address] Health Maintenance Due Date Last Done Comments Diabetes: Urine Protein Screening 11/25/2023 023 Diabetes: Retinopathy Screening 03/25/2025 4 Diabetes: Hemoglobin A1C 04/18/2025 025, 11/14/2024, 09/05/2024, Additional history exists Pneumococcal Vaccine: 65+ Years Completed 4 Influenza Vaccine Completed 06/08/2024, , 05/30/2022, Additional history exists Procedures Procedure Name Priority Date/Time Associated Diagnosis Comments POCT GLYCATED HEMOGLOBIN, TOTAL Routine 01/16/2025 11:22 AM EDT Type 2 diabetes mellitus with other specified complication, with long-term current use of insulin ALL BASIC METABOLIC PANEL Routine 12/13/2024 1:35 PM EDT POCT GLYCATED HEMOGLOBIN, TOTAL Routine 11/14/2024 11:04 AM EDT Type 2 diabetes mellitus with other specified complication, with long-term current use of insulin ([facility]) ALL BASIC METABOLIC PANEL Routine 11/02/2024 9:57 AM EST DIABETIC RETINOPATHY SCREENING - OU - BOTH EYES Routine 03/25/2024 from Last 3 Months or Most Recently Relevant to Health Maintenance Results * POCT Glycated hemoglobin, total (01/16/2025 11:22 AM EDT) Only the most recent of2 resultswithin the time period is included. Hemoglobin A1C 6.3 Blood 01/16/2025 11:2 2 AM EDT Rodrick Butler MD POINT OF CARE TEST ENTER/EDIT ORDERABLES Final Result * (ABNORMAL) ALL BASIC METABOLIC PANEL (12/13/2024 1:35 PM EDT) Only the most recent of2 resultswithin the time period is included. SODIUM 140 136 - 145 mmol/L [facility] POTASSIUM 5.0 3.5 - 5.1 mmol/L [facility] CHLORIDE 103 98 - 107 mmol/L [facility] CARBON DIOXIDE 29.0 21.0 - 32.0 mmol/L [facility] ANION GAP 13.0 [facility] GLUCOSE 98 74 - 106 mg/dL [facility] BLOOD UREA NITROGEN 19.0(H) 7.0 - 18.0 mg/dL [facility] CREATININE 1.41(H) 0.55 - 1.02 mg/dL [facility] EGFR-AF [place] 43(L) >=60 mL/min/1.7 3m 2 [facility] EGFR-NON AF [place] 35(L) >=60 mL/min/1.7 3m 2 [facility] BUN CREATININE RATIO 13.5 [facility] CALCIUM 9.1 8.5 - 10.1 mg/dL [facility] 12/13/2024 1:35 PM EDT 12/13/2024 2:05 PM EDT Narrative [facility] - 12/13/2024 2:22 PM EDT Generic External Data Provider [facility] F inal Result [facility] * (ABNORMAL) Diabetic Retinopathy Screening - OU - Both Eyes (03/25/2024) RESULTS Retinopathy OU Anatomical Region Laterality Modality Head Other 03/25/2024 Beverly ZAMUDIO OPHTH PHOTOGRAPHY Final Result from Last 3 Months or Most Recently Relevant to Health Maintenance Insurance MEDICARE ADVANTAGE Care Teams Medical Review Coordinator Relationship Specialty Start Date End Date Rodrick Butler MD [address] [facility] [address] [place] [address] PCP - General Internal Medicine 01/14/23 Rodrick Butler MD [address] [facility] [address] [place] [address] PCP - Rosetta CLAROS 08/31/24 Ivelisse Baptiste LPN 11/18/24
--- OUTSIDE RECORDS SUMMARY | 2025-01-31 08:25 | XMS_ITS ---
Author Organization [facility] Address [address] [place] [address] Care Team Providers Care Collection Development Librarian Name Role Phone Rodrick Butler MD Primary Care Provider [phone] Rodrick Butler MD Unavailable [phone] Ivelisse Baptiste LPN Unavailable Unavailable Chronic Care Management (CCM) Status:Enrolled (Active) Start date:01/15/2023 Enrollment date:01/15/2023 Overview 09/30/23, 10:04 AM - Inés Thursday, KRISTIN- Patient gives verbal consent to be enrolled in CCM Program and understands there could be a bill for this service. Case Team Name Relationship Phone Ivelisse Baptiste LPN(Responsible Staff) Continued Care and Services Coordination
--- OUTSIDE RECORDS SUMMARY | 2025-01-31 08:25 | XMS_ITS | Encounter Summary ---
Author Organization [facility] Address [address] [place] [address] Care Team Providers Care Companion Caregiver Name Role Phone Rodrick Butler MD Unavailable [phone] Rodrick Butler MD Primary Care Provider [phone] Jessica Rubi RN Unavailable [phone] Rodrick Butler MD Unavailable [phone] Ivelisse Baptiste LPN Unavailable Unavailable Encounter Details Date Type Department Care Team (Late st Contact Info) Description 08/17/2023 Abstract [facility] [address] [facility] [address] [place] [address] Rodrick Butler MD 112 [facility] 110 [place] [address] Social History Tobacco Use Types [...] often do you attend chur ch or pentecostalism services? More than 4 times per year 04/23/2023 Do you belong to any clubs o r organizations such as yarsani groups, unions, fraternal or athletic groups, or [...] and heating? Not hard at all 04/23/2023 [facility] - Occupational [...] place to sleep or slept in a intermediate (including now)? No 04/23/2023 Comments Unknown Sex [...] Visit [facility] [address] [facility] [address] [place] [address] Rodrick Butler MD [address] [facility] [address] [place] [address] documented as of this encounter Visit Diagnoses Not on filedocumented in this encounter Care Teams Companion Caregiver Relationship Specialty Start Date End Date Rodrick Butler MD [address] [place] [address] [place] [address] PCP - [employer] 08/31/22 11/04/24 Rodrick Butler MD [address] [place] [address] [place] [address] PCP - General Internal Medicine 01/14/23 Rodrick Butler MD [address] [place] [address] [place] [address] PCP - Rosetta CLAROS 08/31/24 Jessica Rubi, RN Clinical Advocate Family Medicine 10/07/24 11/18/24 Ivelisse Baptiste LPN 11/18/24 documented as of this encounter
--- OUTSIDE RECORDS SUMMARY | 2025-01-31 08:25 | XMS_ITS | Encounter Summary ---
Author Organization [facility] Address [address] [place] [address] Care Team Providers Care License Clerk Name Role Phone Rodrick Butler MD Unavailable [phone] Rodrick Butler MD Primary Care Provider [phone] Jessica Rubi RN Unavailable [phone] Rodrick Butler MD Unavailable [phone] Ivelisse Baptiste LPN Unavailable Unavailable Encounter Details Date Type Department Care Team (Late st Contact Info) Description 03/28/2024 Abstract [facility] [address] [facility] [address] [place] [address] Rodrick Butler MD 112 [facility] [address] [place] [address] Social History Tobacco Use Types [...] written material from your doctor or pharmacy? Never 02/29/2024 Humiliation, Afraid, Rape, and Kick questionnair e [...] 04/23/2023 How often do you attend chur or church services? More than 4 times per year 04/23/2023 Do you belong to any clubs o r organizations such as denominational groups, unions, fraternal or athletic groups, or [...] and heating? Not hard at all 04/23/2023 PHQ-2 Answer Date Recorded Patient Health Questionnaire-2 Score 0 12/02/2023 [facility] - Occupational [...] place to sleep or slept in a snf (including now)? No 04/23/2023 Comments Unknown Sex and Gender Information Value Date Recorded Sex Assigned at Not on file Legal Sex Female 7:20 PM EDT Gender Identity Not on file Sexual Orientation Not on file documented as of this encounter Plan of Treatment Upcoming Encounters Date Type Department Care Team (Late st Contact Info) Description 05/19/2025 10:00 AM EDT Office Visit [facility] [address] [facility] [address] [place] [address] Rodrick Butler MD [address] [facility] [address] [place] [address] documented as of this encounter Visit Diagnoses Not on filedocumented in this encounter Care Teams License Clerk Relationship Specialty Start Date End Date Rodrick Butler MD [address] [facility] [address] [place] [address] PCP - [employer] 08/31/22 11/04/24 Rodrick Butler MD [address] [facility] [address] [place] [address] PCP - General Internal Medicine 01/14/23 Rodrick Butler MD [address] [facility] [address] [place] [address] PCP - Rosetta CLAROS 08/31/24 Jessica Rubi, [place] Clinical Advocate Family Medicine 10/07/24 11/18/24 Ivelisse Baptiste LPN 11/18/24 documented as of this encounter
--- OUTSIDE RECORDS SUMMARY | 2025-01-31 08:25 | XMS_ITS | Encounter Summary ---
Author Organization [facility] Address [address] [place] [address] Care Team Providers Care Patient Financial Services Specialist Name Role Phone Rodrick Butler MD Unavailable [phone] Rodrick Butler MD Primary Care Provider [phone] Jessica Rubi RN Unavailable [phone] Rodrick Butler MD Unavailable [phone] Ivelisse Baptiste LPN Unavailable Unavailable Encounter Details Date Type Department Care Team (Late st Contact Info) Description 09/07/2023 Abstract [facility] [address] [facility] 110 [place] [address] Rodrick Butler MD 112 [facility] 110 [place] [address] Social History Tobacco Use Types [...] often do you attend chur ch or congregation services? More than 4 times per year 04/23/2023 Do you belong to any clubs o r organizations such as latter day groups, unions, fraternal or athletic groups, or [...] and heating? Not hard at all 04/23/2023 [facility] - Occupational [...] place to sleep or slept in a senior care (including now)? No 04/23/2023 Comments Unknown Sex [...] Visit [facility] [address] [facility] 110 [place] [address] Rodrick Butler MD [address] [facility] 110 [place] [address] documented as of this encounter Visit Diagnoses Not on filedocumented in this encounter Care Teams Patient Financial Services Specialist Relationship Specialty Start Date End Date Rodrick Butler MD [address] [place] [address] [place] [address] PCP - [employer] 08/31/22 11/04/24 Rodrick Butler MD [address] [place] [address] [place] [address] PCP - General Internal Medicine 01/14/23 Rodrick Butler MD [address] [place] [address] [place] [address] PCP - Rosetta CLAROS 08/31/24 Jessica Rubi, RN Clinical Advocate Family Medicine 10/07/24 11/18/24 Ivelisse Baptiste LPN 11/18/24 documented as of this encounter
--- OUTSIDE RECORDS SUMMARY | 2025-01-31 08:25 | XMS_ITS | Encounter Summary ---
Author Organization [facility] Address [address] [place] [address] Care Team Providers Care Pad Machine Feeder Name Role Phone Rodrick Butler MD Unavailable [phone] Rodrick Butler MD Primary Care Provider [phone] Jessica Rubi RN Unavailable [phone] Rodrick Butler MD Unavailable [phone] Ivelisse Baptiste LPN Unavailable Unavailable Encounter Details Date Type Department Care Team (Late st Contact Info) Description 09/08/2023 Abstract [facility] [address] [facility] 110 [place] [address] Rodrick Butler MD 112 [facility] 110 [place] [address] Social History Tobacco Use Types [...] often do you attend chur ch or religion services? More than 4 times per year 04/23/2023 Do you belong to any clubs o r organizations such as moravian groups, unions, fraternal or athletic groups, or [...] place to sleep or slept in a retirement (including now)? No 04/23/2023 Comments Unknown Sex [...] Visit [facility] [address] [facility] 110 [place] [address] Rodrick Butler MD [address] [facility] 110 [place] [address] documented as of this encounter Visit Diagnoses Not on filedocumented in this encounter Care Teams Pad Machine Feeder Relationship Specialty Start Date End Date Rodrick Butler MD [address] [place] [address] [place] [address] PCP - Hum[employer] 08/31/22 11/04/24 Rodrick Butler MD [address] [place] [address] [place] [address] PCP - General Internal Medicine 01/14/23 Rodrick Butler MD [address] [place] [address] [place] [address] PCP - Rosetta CLAROS 08/31/24 Jessica Rubi, RN Clinical Advocate Family Medicine 10/07/24 11/18/24 Ivelisse Baptiste LPN 11/18/24 documented as of this encounter
--- OUTSIDE RECORDS SUMMARY | 2025-01-31 08:25 | XMS_ITS | Encounter Summary ---
Author Organization [facility] Address [address] [place] [address] Care Team Providers Care Filament Tester Name Role Phone Rodrick Butler MD Unavailable [phone] Rodrick Butler MD Primary Care Provider [phone] Jessica Rubi RN Unavailable [phone] Rodrick Butler MD Unavailable [phone] Ivelisse Baptiste LPN Unavailable Unavailable Encounter Details Date Type Department Care Team (Late st Contact Info) Description 09/07/2023 Orders Only [facility] [address] [place] [address] [place] [address] A, Unknown Practice [address] [place] [address] Social History Tobacco Use Types Packs/Day Years [...] often do you attend chur ch or amish services? More than 4 times per year 04/23/2023 Do you belong to any clubs o r organizations such as samaritan groups, unions, fraternal or athletic groups, or [...] in a long-term (including now)? No 04/23/2023 Comments Unknown Sex and Gender Information Value Date Recorded Sex Assigned at Not on file Legal Sex Female 7:20 PM EDT Gender Identity Not on file Sexual Orientation Not on file documented as of this encounter Plan of Treatment Upcoming Encounters Date Type Department Care Team (Late st Contact Info) Description 05/19/2025 10:00 AM EDT Office Visit [facility] 112 [facility] 110 [place] [address] Rodrick Butler MD 112 [facility] 110 [place] [address] documented as of this encounter Procedures Procedure Name Priority Date/Time Associated Diagnosis Comments ELECTROCARDIOGRAM REPORT Routine 024 1:06 PM EST XR CHEST 2 VIEWS Routine 09/04/2023 1:09 PM EST ELECTROCARDIOGRAM REPORT Routine 024 1:08 PM EST documented in this encounter Results * Electrocardiogram Report (09/05/2023 1:06 PM EST) us Unknown Practice A IN CLINIC/BEDSIDE ORDERABLES Final Result * XR chest 2 views (09/04/2023 1:09 PM EST) Anatomical Region Laterality Modality Chest Radiographic Federica ging us Unknown Practice A IMG XR PROCEDURES Final Resul t * Electrocardiogram Report (09/04/2023 1:08 PM EST) us Unknown Practice A IN CLINIC/BEDSIDE ORDERABLES Final Result documented in this encounter Visit Diagnoses Not on filedocumented in this encounter Care Teams Filament Tester Relationship Specialty Start Date End Date Rodrick Butler MD [address] [facility] 110 [place] [address] PCP - [employer] 08/31/22 11/04/24 Rodrick Butler MD [address] [facility] 110 [place] [address] PCP - General Internal Medicine 01/14/23 Rodrick Butler MD [address] [facility] 110 [place] [address] PCP - Rosetta CLAROS 08/31/24 Jessica Rubi, RN Clinical Advocate Family Medicine 10/07/24 11/18/24 Ivelisse Baptiste LPN 11/18/24 documented as of this encounter
--- OUTSIDE RECORDS SUMMARY | 2025-01-31 08:25 | XMS_ITS | Encounter Summary ---
Author Organization [facility] Address [address] [place] [address] Care Team Providers Care Reed Or Wind Instrument Repairer Name Role Phone Rodrick Butler MD Unavailable [phone] Rodrick Butler MD Primary Care Provider [phone] Jessica Rubi RN Unavailable [phone] Rodrick Butler MD Unavailable [phone] Ivelisse Baptiste LPN Unavailable Unavailable Encounter Details Date Type Department Care Team (Late st Contact Info) Description 09/08/2023 Abstract [facility] [address] [facility] 110 [place] [address] Rodrick Butler MD 112 [facility] 110 [place] [address] Social History Tobacco Use Types [...] often do you attend chur ch or scientology services? More than 4 times per year 04/23/2023 Do you belong to any clubs o r organizations such as anglican groups, unions, fraternal or athletic groups, or [...] and heating? Not hard at all 04/23/2023 [facility] Occupat ional Health - [...] place to sleep or slept in a skilled nursing (including now)? No 04/23/2023 Comments Unknown Sex [...] Visit [facility] [address] [facility] 110 [place] [address] Rodrick Butler MD [address] [facility] 110 [place] [address] documented as of this encounter Visit Diagnoses Not on filedocumented in this encounter Care Teams Reed Or Wind Instrument Repairer Relationship Specialty Start Date End Date Rodrick Butler MD [address] [place] [address] [place] [address] PCP - [employer] 08/31/22 11/04/24 Rodrick Butler MD [address] [place] [address] [place] [address] PCP - General Internal Medicine 01/14/23 Rodrick Butler MD [address] [facility] [address] [place] [address] PCP - Rosetta CLAROS 08/31/24 Jessica Rubi, RN Clinical Advocate Family Medicine 10/07/24 11/18/24 Ivelisse Baptiste LPN 11/18/24 documented as of this encounter
--- OUTSIDE RECORDS SUMMARY | 2025-01-31 08:25 | XMS_ITS | Encounter Summary ---
Author Organization [facility] Address [address] [place] [address] Care Team Providers Care Steel Shot Header Operator Name Role Phone Rodrick Butler MD Unavailable [phone] Rodrick Butler MD Primary Care Provider [phone] Jessica Rubi RN Unavailable [phone] Rodrick Butler MD Unavailable [phone] Ivelisse Baptiste LPN Unavailable Unavailable Encounter Details Date Type Department Care Team (Late st Contact Info) Description 04/11/2024 Abstract [facility] [address] [facility] 110 [place] [address] Rodrick Butler MD 112 [facility] 110 [place] [address] Social History Tobacco Use Types [...] How often do you attend chur or druze services? More than 4 times per year 04/23/2023 Do you belong to any clubs o r organizations such as mandaen groups, unions, fraternal or athletic groups, or [...] Recorded Patient Health Questionnaire-2 Score 0 12/02/2023 [facility] Occupat ional Health - [...] place to sleep or slept in a assisted (including now)? No 04/23/2023 Comments Unknown Sex and Gender Information Value Date Recorded Sex Assigned at Not on file Legal Sex Female 7:20 PM EDT Gender Identity Not on file Sexual Orientation Not on file documented as of this encounter Plan of Treatment Upcoming Encounters Date Type Department Care Team (Late st Contact Info) Description 05/19/2025 10:00 AM EDT Office Visit [facility] [address] [facility] 110 [place] [address] Rodrick Butler MD [address] [facility] 110 [place] [address] documented as of this encounter Visit Diagnoses Not on filedocumented in this encounter Care Teams Steel Shot Header Operator Relationship Specialty Start Date End Date Rodrick Butler MD [address] [facility] 110 [place] [address] PCP - Hum[employer] 08/31/22 11/04/24 Rodrick Butler MD [address] [facility] 110 [place] [address] PCP - General Internal Medicine 01/14/23 Rodrick Butler MD [address] [facility] [address] [place] [address] PCP - Rosetta CLAROS 08/31/24 Jessica Rubi, [place] Clinical Advocate Family Medicine 10/07/24 11/18/24 Ivelisse Baptiste LPN 11/18/24 documented as of this encounter
--- OUTSIDE RECORDS SUMMARY | 2025-01-31 08:26 | XMS_ITS | Encounter Summary ---
Author Organization [facility] Address [address] [place] [address] Care Team Providers Care Developmental Therapist Name Role Phone Rodrick Butler MD Unavailable [phone] Rodrick Butler MD Primary Care Provider [phone] Jessica Rubi RN Unavailable [phone] Rodrick Butler MD Unavailable [phone] Ivelisse Baptiste LPN Unavailable Unavailable Encounter Details Date Type Department Care Team (Late st Contact Info) Description 12/10/2023 Abstract [facility] [address] [facility] 110 [place] [address] Rodrick Butler MD 112 [facility] 110 [place] [address] Social History Tobacco Use Types [...] often do you attend chur ch or mu-ism services? More than 4 times per year 04/23/2023 Do you belong to any clubs o r organizations such as hindu groups, unions, fraternal or athletic groups, or [...] Recorded Patient Health Questionnaire-2 Score 0 12/02/2023 [facility] Occupat ional [facility] - Occupational Stress Questionnaire Answer Date Recorded [...] the money to buy more. Never true 08/24/20 23 Within the past 12 months, t [...] to sleep or slept in a senior living (including now)? No 04/23/2023 Comments Unknown Sex [...] Visit [facility] [address] [facility] 110 [place] [address] Rodrick Butler MD [address] [facility] 110 [place] [address] documented as of this encounter Visit Diagnoses Not on filedocumented in this encounter Care Teams Developmental Therapist Relationship Specialty Start Date End Date Rodrick Butler MD [address] [facility] 110 [place] [address] PCP - Hum[employer] 08/31/22 11/04/24 Rodrick Butler MD [address] [facility] 110 [place] [address] PCP - General Internal Medicine 01/14/23 Rodrick Butler MD 112 [facility] 110 [place] [address] PCP - Rosetta CLAROS 08/31/24 Jessica Rubi, RN Clinical Advocate Family Medicine 10/07/24 11/18/24 Ivelisse Baptiste LPN 11/18/24 documented as of this encounter
--- OUTSIDE RECORDS SUMMARY | 2025-01-31 08:26 | XMS_ITS | Encounter Summary ---
Author Organization [facility] Address [address] [place] [address] Care Team Providers Care Hide House Supervisor Name Role Phone Rodrick Butler MD Unavailable [phone] Rodrick Butler MD Primary Care Provider [phone] Jessica Rubi RN Unavailable [phone] Rodrick Butler MD Unavailable [phone] Ivelisse Baptiste LPN Unavailable Unavailable Encounter Details Date Type Department Care Team (Late st Contact Info) Description 06/01/2024 Abstract [facility] [address] [facility] 110 [place] [address] Rodrick Butler MD 112 [facility] 110 [place] [address] Social History Tobacco Use Types [...] How often do you attend chur or yarsani services? More than 4 times per year 04/23/2023 Do you belong to any clubs o r organizations such as cheondoism groups, unions, fraternal or athletic groups, or [...] Recorded Patient Health Questionnaire-2 Score 0 12/02/2023 [facility] Occupat ional Health - Occupational Stress [...] 05/19/2025 10:00 AM EDT Office Visit [facility] [address] [facility] 110 [place] [address] Rodrick Butler MD [address] [facility] 110 [place] [address] documented as of this encounter Visit Diagnoses Not on filedocumented in this encounter Care Teams Hide House Supervisor Relationship Specialty Start Date End Date Rodrick Butler MD [address] [facility] 110 [place] [address] PCP - Hum[employer] 08/31/22 11/04/24 Rodrick Butler MD [address] [facility] 110 [place] [address] PCP - General Internal Medicine 01/14/23 Rodrick Butler MD [address] [facility] 110 [place] [address] PCP - Rosetta CLAROS 08/31/24 Jessica Rubi, [place] Clinical Advocate Family Medicine 10/07/24 11/18/24 Ivelisse Baptiste LPN 11/18/24 documented as of this encounter
--- OUTSIDE RECORDS SUMMARY | 2025-01-31 08:26 | XMS_ITS | Encounter Summary ---
Author Organization [facility] Address [id number] [address] [place] [address] Care Team Providers Care Table Games Floor Supervisor Name Role Phone Rodrick Butler MD Primary Care Provider [phone] Encounter Details Date Type Department Care Team (Late st Contact Info) Description 05/30/2024 Orders Only [facility] [address] [place] [address] Ref Prov, [place] [address] Social History Tobacco Use Types Packs/Day Years Used Date Smoking Tobacco: Never Assessed Comments Unknown Sex and Gender Information Value Date Recorded Sex Assigned at Not on file Legal Sex Female 10:35 AM EDT Gender Identity Not on file Sexual Orientation Not on file documented as of this encounter Plan of Treatment Not on file documented as of this encounter Procedures Procedure Name Priority Date/Time Associated Diagnosis Comments CT CTA CAROTID Routine 05/28/2024 2:[address] BRAIN WO CONT Routine 05/28/2024 2:[address] CTA HEAD Routine 05/28/2024 2:[address] BRAIN WO CONT Routine 09/29/2023 2:52 PM EST documented in this encounter Results * CT angiogram carotid (05/28/2024 2:53 PM EDT) Anatomical Region Laterality Modality Neuro, Neck, Vascular, Neuro [place] N/A Computed Tomography us Not In System Ref Prov IMG CT ORDERABLES Final R esult * CT brain without contrast (05/28/2024 2:51 PM EDT) Anatomical Region Laterality Modality Neuro, Head, Head and Neck, Neuro [place]a N/A Computed Tomography us Not In System Ref Prov IMG CT ORDERABLES Final R esult * CT angiogram head (05/28/2024 2:50 PM EDT) Anatomical Region Laterality Modality Head, Neuro, Vascular, Head and Neck, Neuro [place] ra N/A Computed Tomography us Not In System Ref Prov IMG CT ORDERABLES Final R esult * CT brain without contrast (09/29/2023 2:52 PM EST) Anatomical Region Laterality Modality Neuro, Head, Head and Neck, Neuro [place] N/A Computed Tomography us Not In System Ref Prov IMG CT ORDERABLES Final R esult documented in this encounter Visit Diagnoses Not on filedocumented in this encounter Care Teams Table Games Floor Supervisor Relationship Specialty Start Date End Date Rodrick Butler MD [address] [address] PCP - General Internal Medicine 05/30/24 documented as of this encounter
--- OUTSIDE RECORDS SUMMARY | 2025-01-31 08:26 | XMS_ITS | Encounter Summary ---
Author Organization [facility] Address [address] [place] [address] Care Team Providers Care Pediatrician Active Practice Name Role Phone Rodrick Butler MD Unavailable [phone] Rodrick Butler MD Primary Care Provider [phone] Jessica Rubi RN Unavailable [phone] Rodrick Butler MD Unavailable [phone] Ivelisse Baptiste LPN Unavailable Unavailable Encounter Details Date Type Department Care Team ([facility] Contact Info) Description 01/28/2023 Abstract [facility] [address] [facility] [address] [place] [address] Rodrick Butler MD 112 [facility] 110 [place] [address] Social History Tobacco Use Types Packs/Day Years Used Date Smoking Tobacco: Never Smokeless Tobacco: Never Alcohol Use Standard Drinks/Week Comments Never 0 (1 standard drink = 0.6 oz pur e alcohol) Comments Unknown Sex and Gender Information Value Date Recorded Sex Assigned at Not on file Legal Sex Female 7:20 PM EDT Gender Identity Not on file Sexual Orientation Not on file COVID-19 Exposure Response Date Recorded In the last 10 days, have yo u been in contact with someone who was confirmed or suspected to have Coronavirus/COVID-19? No / Unsure 01/14/2023 3:39 PM EDT documented as of this encounter Plan of Treatment Upcoming Encounters Date Type Department Care Team ([facility] Contact Info) Description 05/19/2025 10:00 AM EDT Office Visit [facility] 112 [facility] 110 [place] [address] Rodrick Butler MD [address] [facility] 110 [place] [address] documented as of this encounter Visit Diagnoses Not on filedocumented in this encounter Care Teams Pediatrician Active Practice Relationship Specialty Start Date End Date Rodrick Butler MD [address] [facility] [address] [place] [address] PCP - [employer] 08/31/22 11/04/24 Rodrick Butler MD [address] [facility] [address] [place] [address] PCP - General Internal Medicine 01/14/23 Rodrick Butler MD [address] [facility] [address] [place] [address] PCP - Rosetta CLAROS 08/31/24 Jessica Rubi, RN Clinical Advocate Family Medicine 10/07/24 11/18/24 Ivelisse Baptiste LPN 11/18/24 documented as of this encounter
--- OUTSIDE RECORDS SUMMARY | 2025-01-31 08:26 | XMS_ITS | Encounter Summary ---
Author Organization [facility] Address [address] [place] [address] Care Team Providers Care Radar Operator Name Role Phone Rodrick Butler MD Unavailable [phone] Rodrick Butler MD Primary Care Provider [phone] Jessica Rubi RN Unavailable [phone] Rodrick Butler MD Unavailable [phone] Ivelisse Baptiste LPN Unavailable Unavailable Encounter Details Date Type Department Care Team (Late st Contact Info) Description 09/30/2023 Orders Only [facility] [address] [facility] [address] [place] [address] A, Unknown Practice [address] [place] [address] Social History Tobacco Use Types Packs/Day Years [...] often do you attend chur ch or sabianism services? More than 4 times per year 04/23/2023 Do you belong to any clubs o r organizations such as religion groups, unions, fraternal or athletic groups, or [...] and heating? Not hard at all 04/23/2023 [facility] Occupat ional Health - Occupational [...] 05/19/2025 10:00 AM EDT Office Visit [facility] [address] [facility] 110 [place] [address] Rodrick Butler MD 112 [facility] 110 [place] [address] documented as of this encounter Procedures Procedure Name Priority Date/Time Associated Diagnosis Comments CT HEAD OR BRAIN W/ & W/O CONTRAST Routine 09/29/2023 10:10 AM EST XR CHEST 1 VIEW Routine 09/29/2023 8:50 AM EST ELECTROCARDIOGRAM REPORT Routine 024 8:25 AM EST documented in this encounter Results * CT HEAD OR BRAIN W/ & W/O CONTRAST (09/29/2023 10:10 AM EST) Anatomical Region Laterality Modality Radiographic Federica ging us Unknown Practice A IMG XR PROCEDURES Final Resul t * XR chest 1 view (09/29/2023 8:50 AM EST) Anatomical Region Laterality Modality Chest Radiographic Federica ging us Unknown Practice A IMG XR PROCEDURES Final Resul t * Electrocardiogram Report (09/29/2023 8:25 AM EST) us Unknown Practice A IN CLINIC/BEDSIDE ORDERABLES Final Result documented in this encounter Visit Diagnoses Not on filedocumented in this encounter Care Teams Radar Operator Relationship Specialty Start Date End Date Rodrick Butler MD [address] [place] [address] [facility] 110 [place] [address] PCP - [employer] 08/31/22 11/04/24 Rodrick Butler MD [address] [place] [address] [facility] 110 [place] [address] PCP - General Internal Medicine 01/14/23 Rodrick Butler MD [address] [place] [address] [facility] 110 [place] [address] PCP - Rosetta CLAROS 08/31/24 Jessica Rubi, RN Clinical Advocate Family Medicine 10/07/24 11/18/24 Ivelisse Baptiste LPN 11/18/24 documented as of this encounter
--- OUTSIDE RECORDS SUMMARY | 2025-01-31 08:26 | XMS_ITS | Clinical Summary ---
Author Organization [facility] Address [address] [place] [address] Care Team Providers Care Data Analyst Name Role Phone Rodrick Butler MD Primary Care Provider [phone] Allergies Active Allergy Reactions Criticality Noted Date Comments Amlodipine Swelling 10/04/2024 Clonidine Other 10/04/2024 Dry mouth Empagliflozin Other Low 08/01/2022 Pt gets yeast infections when taking this medication Dapagliflozin Other 10/04/2024 Iodine Rash Low 06/25/2022 Sulfa (Sulfonamide Antibiotics) Swelling Medium 06/10/2022 Medications Medication Sig Dispensed Refills Start Date End Date Status aspirin 81 mg chewable tablet Chew 1 tablet every day by oral route for 90 days. 02/21/2022 Active Lantus Solostar U-100 Insulin 100 unit/mL (3 mL) pen Inject 10 Units under the skin in the morning and at bedtime. 10 units in PM 15 units in AM 03/24/2022 Active cyproheptadine (Periactin) 4 mg tablet Take 2 mg by mouth at bedtime. 11/12/2022 Active atorvastatin (Lipitor) 80 mg tabletIndications:Mix ed hyperlipidemia Take 1 tablet (80 mg) by mouth at bedtime. 90 tablet 3 06/02/2024 06/02/2025 Active carvedilol (Coreg) 12.5 mg tabletIndications:Ess ential hypertension Take 1 tablet (12.5 mg) by mouth with breakfast and with evening meal. 180 tablet 3 06/02/2024 06/02/2025 Active Janumet XR 100-1,000 mg tablet, ER multiphase 24 hr TAKE 1 TABLET BY MOUTH IN THE MORNING WITH A MEAL 06/25/2024 Active pantoprazole (ProtoNix) 40 mg EC tablet Take 40 mg by mouth before breakfast. 09/20/2024 Active traZODone (Desyrel) 50 mg tablet Take 50 mg by mouth if needed at bedtime for sleep. Active spironolactone (Aldactone) 50 mg tabletIndications:Ess ential hypertension Take 0.5 tablets (25 mg) by mouth in the morning. 15 tablet 11 10/04/2024 10/04/2025 Active carvedilol (Coreg) 6.25 mg tabletIndications:Ess ential hypertension Take 1 tablet (6.25 mg) by mouth with breakfast and with evening meal. In addition to the 12.5mg for a total of 18.75mg twice daily 180 tablet 3 11/07/2024 11/07/2025 Active sacubitril-valsartan (Entresto) 24-26 mg tabletIndications:Diego ign hypertensive heart disease with heart failure (CMS/HCC) Take 1 tablet by mouth two times daily. 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, associated with type 2 diabetes mellitus 03/30/2024 S/P placement of cardiac pacemaker 09/17/2023 Cardiac pacemaker in situ 09/16/2023 Assessment & Plan (09/16/2023 12:52 PM EST): Incision healing well- no s/s of distress and RTC at 1 month for device interrogation Heart block 09/07/2023 Abnormal gait 01/27/2023 06/03/2023 Ataxia 01/27/2023 06/03/2023 Benign essential hypertension 01/27/2023 Central vestibular vertigo 01/27/202306/03 Diabetic peripheral neuropathy 01/27/2023 1 Diabetic renal disease 01/27/2023 Diverticulitis 01/27/2023 06/03/2023 Mass of left adrenal gland 01/27/202306/03 Ovarian failure 01/27/2023 06/03/2023 Skin sensation disturbance 01/27/202306/03 Type 2 diabetes mellitus wit h diabetic peripheral angiopathy without gangrene 01/27/2023 06/03/2023 Type 2 diabetes mellitus without complications 0 01/27/2023 06/03/2023 Diabetes mellitus 08/01/2022 Insomnia 08/01/2022 Non-smoker 08/01/2022 Restless legs syndrome 08/01/2022 Coronary artery disease invo lving lower sioux coronary artery of lower sioux heart 06/25/2022 Assessment & Plan (12/17/2022 1:10 PM EDT): Coronary artery disease is stable without any concerning symptoms Continue GDMT- ASA, plavix, coreg continue risk factor modifications- heart healthy diet, regular exercise as tolerated and continue all medications. Assessment & Plan (06/25/2022 12:19 PM EDT): Continue goal-directed medical therapy including aspirin, Plavix for the next 6 months to 1 year, atorvastatin 80 mg, Toprol No concerning symptoms today, overall from a cardiac standpoint patient is doing well We will send orders for cardiac rehab initiation to [facility] Chronic systolic heart failure 06/25/2022 Assessment & Plan (06/02/2024 1:45 PM EDT): [facility] II -currently she remains euvolemic and without exacerbation. Recovered ejection [...] please maintain K+>4 and Mg > 2 Assessment & Plan (12/17/2022 1:10 PM EDT): [facility] II- currently euvolemic and without exacerbation Continue GDMT- ASA lipitor, coreg, farxiga, entresto Monitor daily weights, I&O, fluid restriction 1.5-2L/day, renal function and electrolytes- please maintain K+>4 and Mg > 2 Assessment & Plan (06/25/2022 12:22 PM EDT): [facility] Continue goal-directed medical therapy-aspirin, Lipitor, Toprol, Entresto, samples of Farxiga given the patient since she states financially she is not able to fill more than 10 days of her last prescription. Continue daily weights, fluid restriction 1.5 to 2 L/day, low-sodium diet. She states today she is actually feeling much better than what she has in months Previous echo from 02/11/2022 reviewed- Mild to moderate reduced LV systolic function with ejection fraction 40% Normal RV systolic function No significant valvular dysfunction We will repeat echo to assess ejection fraction Presence of drug coated stent in right coronary artery 06/25/2022 Overview (06/25/2022): GRETEL to RAMUS-03/07/22 RCA GRETEL staged PCI on 04/21/22 Assessment & Plan (12/17/2022 1:09 PM EDT): Continue DAPT for 1 year from 04/21/22 implantation of DEC to RCA Assessment & Plan (06/25/2022 12:21 PM EDT): Status post recent heart cath in February and March with drug-eluting stent placed to ramus and right coronary artery-patient is doing very well continue aspirin and Plavix x1 year at least. 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 [address] [place] [facility] [place] [address] Patricia Michelle MA 12/30/2024 11:20 AM EDT Office Visit [facility] [address] [place] [facility] [place] [address] Kristian Pennington MD Essential hypertension (Primary Dx); Coronary artery disease involving lower sioux coronary artery of lower sioux heart without angina pectoris; Chronic systolic heart failure (CMS/HCC); Heart block; Cardiac pacemaker in situ; Pure hypercholesterolemia; Type 2 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 gangrene, with long-term current use of insulin (CMS/HCC) 12/06/[address] [facility] [address] [place] [facility] [place] [address] Lizbet Vazquez MA 11/16/[address] [facility] [address] [facility], [facility] Patricia Michelle MA 11/16/[address] [facility] [address] [place] [facility] [place] [address] Patricia Michelle MA Chronic systolic heart failure (CMS/HCC) 11/15/[address] [facility] [address] [place] [facility] [place] [address] Patricia Michelle MA 11/15/[address] [facility] [address] [place] [facility] [place] [address] Patricia Michelle MA 11/07/[address] [facility] [address] [place] [facility] [place] [address] Patricia Michelle MA Essential hypertension from Last 3 Months Immunizations Name Administration Dates Next Due Influenza, High-dose Seasona l, Quadrivalent, Preservative Free 05/30/2022 Influenza, injectable, MDCK, preservative free, quadrivalent 08/14/2021 Influenza, injectable, quadr ivalent, preservative free 05/18/2020 Influenza, seasonal, injectable 06/27/2013 Influenza, trivalent, adjuvanted 06/10/2018 Moderna SARS-CoV-2 Vaccination 07/19/2021,2020,09/22/2020 Family History Medical History Relation Name Comments Coronary artery disease Brother Coronary artery disease Father Hypertension Father Coronary artery disease Mother Hypertension Mother Hypertension Sister Relation Name Status Comments Brother Father Mother Sister Social History Tobacco Use Types Packs/Day Years Used Date Smoking Tobacco: Never Smokeless Tobacco: Never Tobacco Cessation:Counseling Given: Not Answered Alcohol Use Standard Drinks/Week Comments Not Currently 0 (1 standard drink = 0.6 oz pur e alcohol) [facility] Utilities Answer Date Recorded In the past 12 months has th e electric, gas, oil, or water company threatened to shut off services in your home? No 09/07/2023 Humiliation, Afraid, Rape, and Kick questionnair e Answer Date Recorded Within the last year, have y ou been afraid of your partner or ex-partner? No 09/07/2023 Emotionally Abused Not on file 09/07/2023 Physically Abused Not on file 09/07/2023 Sexually Abused Not on file 09/07/2023 Overall Financial Resource Strain (CARDIA) Answe r Date Recorded How hard is it for you to pa y for the very basics like food, housing, medical care, and heating? Not hard at all 09/07/2023 [place] Safety & Environment Answer Date Rec orded Within the last year, have y ou been afraid of your partner or ex-partner? No 09/07/2023 Emotionally Abused Not on file 09/07/2023 Physically Abused Not on file 09/07/2023 Sexually Abused Not on file 09/07/2023 In the past year have you be en physically or sexually abused? 09/07/2023 Transportation Answer Date Recorded In the past 12 months, has l ack of transportation kept you from medical appointments or from getting medications? No 09/07/2023 Lack of Transportation (Non-Medical) Not on file 09/07/2023 Housing Stability Vital Sign Answer Raheel e Recorded Unable to Pay for Housing in the Last Year Not o n file 09/07/2023 Number of Places Lived in the Last Year Not on f ile 09/07/2023 In the last 12 months, was t here a time when you did not have a steady place to sleep or slept in a long-term (including now)? No 09/07/2023 Hunger Vital Sign Answer Date Recorded Within the past 12 months, y ou worried that your food would run out before you got the money to buy more. Never true 09/07/19 24 Ran Out of Food in the Last Year Not on file 09/07/2023 Sex and Gender Information Value Date Recorded Sex Assigned at Female 09/08/2023 1:50 PM EST Gender Identity Female 09/08/2023 1:50 PM EST Sexual Orientation Heterosexual or Straight 05/2024 1:50 PM EST Last Filed Vital Signs Vital Sign Reading Time Taken Comments Blood Pressure 168/76 12/30/2024 11:59 AM EDT Pulse 61 12/30/2024 11:59 AM EDT Temperature 36.1 C (97 F) 09/09/2023 7:39 AM EST Respiratory Rate 20 09/09/2023 4:00 AM EST Oxygen Saturation 99% 12/30/2024 11:59 AM EDT Inhaled Oxygen Concentration - - Weight 70.8 kg (156 lb) 12/30/2024 11:59 AM EDT Height 170.2 cm (5' 7 ) 12/30/2024 11:59 AM EDT Body Mass Index 24.43 12/30/2024 11:59 AM EDT Plan of Treatment Health Maintenance Due Date Last Done Comments Diabetes: Hemoglobin A1C 1940 Medicare Annual Wellness (AWV) 1940 Diabetes: Retinopathy Screening 1949 Depression Screening 1951 Adult Tetanus 1961 Zoster Vaccines (1 of 2) 1989 Fall Risk Screening 2004 COVID-19 Vaccine ( season) 2024 07/19/2021, 07/19/2021, 10/19/2020, Additional history exists Pneumococcal Vaccine: 65+ Years Completed 12/09/2023 Influenza Vaccine Completed 06/08/2024, , 05/30/2022, Additional history exists HIB Vaccines Aged Out No longer eligi ble based on patient's age to complete this topic HPV Vaccines Aged Out No longer eligi ble based on patient's age to complete this topic IPV Vaccines Aged Out No longer eligi ble based on patient's age to complete this topic Meningococcal B Vaccine Aged Out No l onger eligible based on patient's age to complete this topic Meningococcal Vaccine Aged Out No eligio hao eligible based on patient's age to complete this topic Rotavirus Vaccines Aged Out No longer eligible based on patient's age to complete this topic Medical Devices Implanted Type Area Cat Scanner Operator Device Identifier Shelf Expiration Date Model / Serial / Lot Lead,Solia,S 53, - [id number] - [id number] Implanted:Qty: 1 on 09/07/2023 by Cody Patrick MD at [facility] Lead [employer] [id number] 06/30/2025 [id number] / [id number] / LeadOdalis S 45, - [id number] - [id number] Implanted:Qty: 1 on 09/07/2023 by Cody Patrick MD at [facility] Lead [employer] [id number] 07/30/2025 [id number] / [id number] / Pacer Bro Machado Dr-T - [id number] - [id number] Implanted:Qty: 1 on 09/07/2023 by Cody Patrick MD at [facility] Pacemaker Biotronik [id number] 01/28/2025 [id number] / [id number] / Advance Directives * Full Code (Latest Code Status on File) Date Activated Date Inactivated Comments 09/07/2023 7:58 PM 09/09/2023 3:56 PM * Full Code Date Activated Date Inactivated Comments 09/07/2023 6:37 PM 09/07/2023 7:39 PM Care Teams Data Analyst Relationship Specialty Start Date End Date Rodrick Butler MD [address] [place] [address] PCP - General 04/18/22
--- OUTSIDE RECORDS SUMMARY | 2025-01-31 08:26 | XMS_ITS | Clinical Summary ---
Author Organization [facility] Address [address] [place] [address] Phone Care Team Providers Care Appliance Fixer Name Role Phone Unavailable Primary Care Provider Unavailabl e Social History Tobacco Use Types Packs/Day Years Used Date Smoking Tobacco: Never Assessed Comments Unknown Sex and Gender Information Value Date Recorded Sex Assigned at Not on file Legal Sex Female 7:57 PM EST Gender Identity Not on file Sexual Orientation Not on file Plan of Treatment Health Maintenance Due Date Last Done Comments Bone Density Scan 1940 Lipid Panel 1939 Yearly Adult Physical 1939 DTaP/Tdap/Td Vaccines (1 - Tdap) 1961 Pneumococcal Vaccine (1 of 1 - PCV) 1989 Zoster Vaccines (1 of 2) 1989 RSV High Risk: (Elderly (60+ ) or Population) (1 - 1-dose 75+ series) 2014 COVID-19 Vaccine ( - 2023-2 5 season) 2024 Influenza Vaccine (Season Ended) 2025 HIB Vaccines Aged Out No longer eligi ble based on patient's age to complete this topic HPV Vaccines Aged Out No longer eligi ble based on patient's age to complete this topic Hepatitis A Vaccines Aged Out No long er eligible based on patient's age to complete this topic Hepatitis B Vaccines Aged Out No long er eligible based on patient's age to complete this topic IPV Vaccines Aged Out No longer eligi ble based on patient's age to complete this topic Meningococcal Vaccine Aged Out No eligio hao eligible based on patient's age to complete this topic Rotavirus Vaccines Aged Out No longer eligible based on patient's age to complete this topic
--- OUTSIDE RECORDS SUMMARY | 2025-01-31 08:26 | XMS_ITS | Encounter Summary ---
Author Organization [facility] Address [address] [place] [address] Care Team Providers Care Blast Furnace Checker Name Role Phone Rodrick Butler MD Unavailable [phone] Rodrick Butler MD Primary Care Provider [phone] Jessica Rubi RN Unavailable [phone] Rodrick Butler MD Unavailable [phone] Ivelisse Baptiste LPN Unavailable Unavailable Encounter Details Date Type Department Care Team (Late st Contact Info) Description 06/01/2024 Abstract [facility] [address] [facility] [address] [place] [address] Rodrick Butler MD 112 [facility] [address] [place] [address] Social History Tobacco Use Types [...] How often do you attend chur or christian services? More than 4 times per year 04/23/2023 Do you belong to any clubs o r organizations such as orthodoxy groups, unions, fraternal or athletic groups, or [...] Recorded Patient Health Questionnaire-2 Score 0 12/02/2023 [facility] - [...] place to sleep or slept in a halfway (including now)? No 04/23/2023 Comments Unknown Sex and Gender Information Value Date Recorded Sex Assigned at Not on file Legal Sex Female 7:20 PM EDT Gender Identity Not on file Sexual Orientation Not on file documented as of this encounter Plan of Treatment Upcoming Encounters Date Type Department Care Team (Late st Contact Info) Description 05/19/2025 10:00 AM EDT Office Visit [facility] [address] [facility] [address] [place] [address] Rodrick Butler MD [address] [facility] [address] [place] [address] documented as of this encounter Visit Diagnoses Not on filedocumented in this encounter Care Teams Blast Furnace Checker Relationship Specialty Start Date End Date Rodrick Butler MD [address] [facility] [address] [place] [address] PCP - [employer] 08/31/22 11/04/24 Rodrick Butler MD [address] [facility] [address] [place] [address] PCP - General Internal Medicine 01/14/23 Rodrick Butler MD [address] [facility] [address] [place] [address] PCP - Rosetta CLAROS 08/31/24 Jessica Rubi, [place] [facility] 10/07/24 11/18/24 Ivelisse Baptiste LPN 11/18/24 documented as of this encounter
--- OUTSIDE RECORDS SUMMARY | 2025-01-31 08:26 | XMS_ITS | Encounter Summary ---
Author Organization [facility] Address [address] [place] [address] Care Team Providers Care Spot Facer Name Role Phone Rodrick Butler MD Unavailable [phone] Rodrick Butler MD Primary Care Provider [phone] Jessica Rubi RN Unavailable [phone] Rodrick Butler MD Unavailable [phone] Ivelisse Baptiste LPN Unavailable Unavailable Encounter Details Date Type Department Care Team (Late st Contact Info) Description 05/06/2024 Abstract [facility] [address] [facility] [address] [place] [address] Rodrick Butler MD 112 [facility] 110 [place] [address] Social History Tobacco Use Types [...] How often do you attend chur or congregation services? More than 4 times per year 04/23/2023 Do you belong to any clubs o r organizations such as synagogue groups, unions, fraternal or athletic groups, or [...] Recorded Patient Health Questionnaire-2 Score 0 12/02/2023 [facility] - [...] place to sleep or slept in a care home (including now)? No 04/23/2023 Comments Unknown Sex and Gender Information Value Date Recorded Sex Assigned at Not on file Legal Sex Female 7:20 PM EDT Gender Identity Not on file Sexual Orientation Not on file documented as of this encounter Plan of Treatment Upcoming Encounters Date Type Department Care Team (Late st Contact Info) Description 05/19/2025 10:00 AM EDT Office Visit [facility] [address] [facility] [address] [place] [address] Rodrick Butler MD [address] [facility] [address] [place] [address] documented as of this encounter Visit Diagnoses Not on filedocumented in this encounter Care Teams Spot Facer Relationship Specialty Start Date End Date Rodrick Butler MD [address] [facility] [address] [place] [address] PCP - [employer] 08/31/22 11/04/24 Rodrick Butler MD [address] [facility] [address] [place] [address] PCP - General Internal Medicine 01/14/23 Rodrick Butler MD [address] [facility] [address] [place] [address] PCP - Rosetta CLAROS 08/31/24 Jessica Rubi, [place] [facility] 10/07/24 11/18/24 Ivelisse Baptiste LPN 11/18/24 documented as of this encounter
--- OUTSIDE RECORDS SUMMARY | 2025-01-31 08:26 | XMS_ITS | Encounter Summary ---
Author Organization [facility] Address [address] [place] [address] Care Team Providers Care Human Resources Mgr Name Role Phone Rodrick Butler MD Unavailable [phone] Rodrick Butler MD Primary Care Provider [phone] Jessica Rubi RN Unavailable [phone] Rodrick Butler MD Unavailable [phone] Ivelisse Baptiste LPN Unavailable Unavailable Encounter Details Date Type Department Care Team (Late st Contact Info) Description 04/27/2024 Abstract [facility] [address] [facility] [address] [place] [address] Rodrick Butler MD 112 [facility] [address] [place] [address] Social History Tobacco Use Types [...] How often do you attend chur or yazidism services? More than 4 times per year 04/23/2023 Do you belong to any clubs o r organizations such as advent groups, unions, fraternal or athletic groups, or [...] Recorded Patient Health Questionnaire-2 Score 0 12/02/2023 [facility] - Occupational [...] place to sleep or slept in a jail (including now)? No 04/23/2023 Comments Unknown Sex and Gender Information Value Date Recorded Sex Assigned at Not on file Legal Sex Female 7:20 PM EDT Gender Identity Not on file Sexual Orientation Not on file documented as of this encounter Plan of Treatment Upcoming Encounters Date Type Department Care Team (Late st Contact Info) Description 05/19/2025 10:00 AM EDT Office Visit [facility] [address] [facility] [address] [place] [address] Rodrick Butler MD [address] [facility] [address] [place] [address] documented as of this encounter Visit Diagnoses Not on filedocumented in this encounter Care Teams Human Resources Mgr Relationship Specialty Start Date End Date Rodrick Butler MD [address] [facility] [address] [place] [address] PCP - [employer] 08/31/22 11/04/24 Rodrick Butler MD [address] [facility] [address] [place] [address] PCP - General Internal Medicine 01/14/23 Rodrick Butler MD [address] [facility] [address] [place] [address] PCP - Rosetta CLAROS 08/31/24 Jessica Rubi, [place] [facility] 10/07/24 11/18/24 Ivelisse Baptiste LPN 11/18/24 documented as of this encounter
--- OUTSIDE RECORDS SUMMARY | 2025-01-31 08:26 | XMS_ITS | Encounter Summary ---
Author Organization [facility] Address [address] [place] [address] Care Team Providers Care Motion Picture Projectionist Name Role Phone Rodrick Butler MD Unavailable [phone] Rodrick Butler MD Primary Care Provider [phone] Jessica Rubi RN Unavailable [phone] Rodrick Butler MD Unavailable [phone] Ivelisse Baptiste LPN Unavailable Unavailable Encounter Details Date Type Department Care Team (Late st Contact Info) Description 06/01/2024 Abstract [facility] [address] [facility] 110 [place] [address] Rodrick Butler MD 112 [facility] 110 [place] [address] Social History Tobacco Use Types [...] How often do you attend chur or adventism services? More than 4 times per year 04/23/2023 Do you belong to any clubs o r organizations such as sikhism groups, unions, fraternal or athletic groups, or [...] Recorded Patient Health Questionnaire-2 Score 0 12/02/2023 [facility] Occupat ional Health - Occupational [...] place to sleep or slept in a fdc (including now)? No 04/23/2023 Comments Unknown Sex and Gender Information Value Date Recorded Sex Assigned at Not on file Legal Sex Female 7:20 PM EDT Gender Identity Not on file Sexual Orientation Not on file documented as of this encounter Plan of Treatment Upcoming Encounters Date Type Department Care Team (Late st Contact Info) Description 05/19/2025 10:00 AM EDT Office Visit [facility] [address] [facility] 110 [place] [address] Rodrick Butler MD [address] [facility] 110 [place] [address] documented as of this encounter Visit Diagnoses Not on filedocumented in this encounter Care Teams Motion Picture Projectionist Relationship Specialty Start Date End Date Rodrick Butler MD [address] [facility] 110 [place] [address] PCP - [employer] 08/31/22 11/04/24 Rodrick Butler MD [address] [facility] 110 [place] [address] PCP - General Internal Medicine 01/14/23 Rodrick Butler MD [address] [facility] 110 [place] [address] PCP - Rosetta CLAROS 08/31/24 Jessica Rubi, [place] Clinical Advocate Family Medicine 10/07/24 11/18/24 Ivelisse Baptiste LPN 11/18/24 documented as of this encounter
--- OUTSIDE RECORDS SUMMARY | 2025-01-31 08:26 | XMS_ITS | Encounter Summary ---
Author Organization [facility] Address [address] [place] [address] Care Team Providers Care Surveyor Instrument Assistant Name Role Phone Rodrick Butler MD Unavailable [phone] Rodrick Butler MD Primary Care Provider [phone] Jessica Rubi RN Unavailable [phone] Rodrick Butler MD Unavailable [phone] Ivelisse Baptiste LPN Unavailable Unavailable Encounter Details Date Type Department Care Team (Late st Contact Info) Description 04/20/2024 Abstract [facility] [address] [facility] 110 [place] [address] Rodrick Butler MD 112 [facility] 110 [place] [address] Social History Tobacco Use Types [...] How often do you attend chur or episcopal services? More than 4 times per year [...] 05/19/2025 10:00 AM EDT Office Visit [facility] [address] [facility] 110 [place] [address] Rodrick Butler MD [address] [facility] 110 [place] [address] documented as of this encounter Visit Diagnoses Not on filedocumented in this encounter Care Teams Surveyor Instrument Assistant Relationship Specialty Start Date End Date Rodrick Butler MD [address] [facility] 110 [place] [address] PCP - [employer] 08/31/22 11/04/24 Rodrick Butler MD [address] [facility] 110 [place] [address] PCP - General Internal Medicine 01/14/23 Rodrick Butler MD [address] [facility] 110 [place] [address] PCP - Rosetta CLAROS 08/31/24 [place] Rub[place], [place] Clinical Advocate Family Medicine 10/07/24 11/18/24 Ivelisse Baptiste LPN 11/18/24 documented as of this encounter
--- OUTSIDE RECORDS SUMMARY | 2025-01-31 08:26 | XMS_ITS | Encounter Summary ---
Author Organization [facility] Address [address] [place] [address] Care Team Providers Care Development Administrator Name Role Phone Rodrick Butler MD Unavailable [phone] Rodrick Butler MD Primary Care Provider [phone] Jessica Rubi RN Unavailable [phone] Rodrick Butler MD Unavailable [phone] Ivelisse Baptiste LPN Unavailable Unavailable Encounter Details Date Type Department Care Team (Late st Contact Info) Description 06/17/2024 Abstract [facility] [address] [facility] 110 [place] [address] Rodrick Butler MD 112 [facility] 110 [place] [address] Social History Tobacco Use Types [...] How often do you attend chur or temple services? More than 4 times per year [...] Recorded Patient Health Questionnaire-2 Score 0 12/02/2023 [facility] Occupat ional Health - Occupational [...] exercise (like a brisk walk)? 0 days Minutes of Exercise per Session Not on file 06/21/2024 Hunger Vital Sign Answer Date Recorded Within the past 12 months, y ou worried that your food would run out before you got the money to buy more. Never true 06/21/20 Within the past 12 months, t he [...] place to sleep or slept in a half-way (including now)? No 04/23/2023 Housing Stability Vital Sign Answer Raheel e Recorded In the last 12 months, was t here a time when you were not able to pay the mortgage or rent on time? No 06/21/2024 In the past 12 months, how m any times have you moved where you were living? 0 06/21/2024 At any time in the past 12 m [facility], were you homeless or living in a half-way (including now)? No 06/21/2024 Comments Unknown Sex and Gender Information Value Date Recorded Sex Assigned at Not on file Legal Sex Female 7:20 PM EDT Gender Identity Not on file Sexual Orientation Not on file documented as of this encounter Plan of Treatment Upcoming Encounters Date Type Department Care Team (Late st Contact Info) Description 05/19/2025 10:00 AM EDT Office Visit [facility] 112 [facility] 110 [place] [address] Rodrick Butler MD 112 [facility] 110 [place] [address] documented as of this encounter Visit Diagnoses Not on filedocumented in this encounter Care Teams Development Administrator Relationship Specialty Start Date End Date Rodrick Butler MD [address] [facility] [address] [place] [address] PCP - [employer] 08/31/22 11/04/24 Rodrick Butler MD [address] [facility] [address] [place] [address] PCP - General Internal Medicine 01/14/23 Rodrick Butler MD [address] [facility] 110 [place] [address] PCP - Rosetta CLAROS 08/31/24 Jessica Rubi, RN Clinical Advocate Family Medicine 10/07/24 11/18/24 Ivelisse Baptiste LPN 11/18/24 documented as of this encounter
--- OUTSIDE RECORDS SUMMARY | 2025-01-31 08:26 | XMS_ITS | Clinical Summary ---
Author Organization [facility] Address [id number] [address] [place] [address] Care Team Providers Care Form Maker Plaster Name Role Phone Rodrick Butler MD Primary Care Provider [phone] Social History Tobacco Use Types Packs/Day Years Used Date Smoking Tobacco: Never Assessed Comments Unknown Sex and Gender Information Value Date Recorded Sex Assigned at Not on file Legal Sex Female 10:35 AM EDT Gender Identity Not on file Sexual Orientation Not on file Plan of Treatment Health Maintenance Due Date Last Done Comments Depression Screening 1952 Tobacco Screening 1952 DTaP,Tdap and Td Vaccines (1 - Tdap) 1958 Zoster (Shingles) Vaccine (1 of 2) 1989 Fall Risk Screening 2004 COVID-19 Vaccine ( - 2023-2 5 season) 2024 07/19/2021, 10/19/2020, 09/22/2020 Influenza Vaccine 05/01/2025 06/16/2023, , 08/14/2021, Additional history exists Medical Devices Not on file Insurance [facility] MEDIC[facility] Care Teams Form Maker Plaster Relationship Specialty Start Date End Date Rodrick Butler MD 112 [facility] 110 [place] [id number] PCP - General Internal Medicine 05/30/24
--- OUTSIDE RECORDS SUMMARY | 2025-01-31 08:26 | XMS_ITS | Encounter Summary ---
Author Organization [employer] Address [id number] [address] [place] [address] Care Team Providers Care Agricultural Services Director Name Role Phone Rodrick Butler MD Primary Care Provider [phone] Encounter Details Date Type Department Care Team (Late st Contact Info) Description 06/03/2024 Orders Only [facility] [place] [address] Transcribe, Orders Support User Headache, primary thunderclap; Pain; Cerebrovascular accident (CVA), unspecified mechanism ([facility]) Social History Tobacco Use Types Packs/Day Years Used Date Smoking Tobacco: Never Assessed Comments Unknown Sex and Gender Information Value Date Recorded Sex Assigned at Not on file Legal Sex Female 10:35 AM EDT Gender Identity Not on file Sexual Orientation Not on file documented as of this encounter Plan of Treatment Scheduled Orders Name Type Priority Associated Diagnoses Orde r Schedule Creatinine includes GFR, serum Lab Routine Pain Expected: 06/03/2024 (Approximate), Expires: 06/03/2025 documented as of this encounter Results * CT angiogram carotid (05/28/2024 10:50 AM EDT) us Scanning Provider External IMG CT ORDERABLES Fin al Result * CT angiogram head (05/28/2024 10:45 AM EDT) us Scanning Provider External IMG CT ORDERABLES Fin al Result * CT brain without contrast stroke alert (05/28/2024 9:10 AM EDT) us Scanning Provider External IMG CT ORDERABLES Fin al Result * CT brain without contrast (09/29/2023 3:10 PM EST) us Scanning Provider External IMG CT ORDERABLES Fin al Result documented in this encounter Visit Diagnoses Diagnosis Headache, primary thunderclap Primary thunderclap headache Pain Generalized pain Cerebrovascular accident (CVA), unspecified mechanism (CMS-HCC) documented in this encounter Care Teams Agricultural Services Director Relationship Specialty Start Date End Date Rodrick Butler MD [address] [id number] PCP - General Internal Medicine 05/30/24 documented as of this encounter
--- OUTSIDE RECORDS SUMMARY | 2025-01-31 08:26 | XMS_ITS | Encounter Summary ---
Author Organization [facility] Address [address] [place] [address] Care Team Providers Care Public Health Training Assistant Name Role Phone Rodrick Butler MD Unavailable [phone] Rodrick Butler MD Primary Care Provider [phone] Jessica Rubi RN Unavailable [phone] Rodrick Butler MD Unavailable [phone] Ivelisse Baptiste LPN Unavailable Unavailable Encounter Details Date Type Department Care Team (Late st Contact Info) Description 06/01/2024 Abstract [facility] [address] [facility] 110 [place] [address] Rodrick Butler MD 112 [facility] 110 [place] [address] Social History Tobacco Use Types [...] How often do you attend chur or yazidi services? More than 4 times per year 04/23/2023 Do you belong to any clubs o r organizations such as hoahaoism groups, unions, fraternal or athletic groups, or [...] Patient Health Questionnaire-2 Score 0 12/02/2023 [facility] Occupat ional Health - Occupational [...] 05/19/2025 10:00 AM EDT Office Visit [facility] [address] [facility] 110 [place] [address] Rodrick Butler MD [address] [facility] 110 [place] [address] documented as of this encounter Visit Diagnoses Not on filedocumented in this encounter Care Teams Public Health Training Assistant Relationship Specialty Start Date End Date Rodrick Butler MD [address] [facility] 110 [place] [address] PCP - [employer] 08/31/22 11/04/24 Rodrick Butler MD [address] [facility] [address] [place] [address] PCP - General Internal Medicine 01/14/23 Rodrick Butler MD [address] [facility] 110 [place] [address] PCP - Rosetta CLAROS 08/31/24 Jessica Rub[place], [place] Clinical Advocate Family Medicine 10/07/24 11/18/24 Ivelisse Baptiste LPN 11/18/24 documented as of this encounter
--- OUTSIDE RECORDS SUMMARY | 2025-01-31 08:26 | XMS_ITS | Referral Summary ---
Author Organization [facility] Address [address] [place] [address] Care Team Providers Care Recruiting Team Lead Name Role Phone Rodrick Butler MD Primary Care Provider [phone] Encounters Date Type Department Care Team Description 01/13/[address] [address] Patricia Michelle MA 12/30/2024 11:20 AM EDT Office Visit [address] [address] Kristian Pennington MD Essential hypertension (Primary Dx); Coronary artery disease involving pauma coronary artery of pauma heart without angina pectoris; Chronic systolic heart failure (CMS/HCC); Heart block; Cardiac pacemaker in situ; Pure hypercholesterolemia; Type 2 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 gangrene, with long-term current use of insulin (CMS/HCC) 12/06/[address] [address] Lizbet Vazquez MA 11/16/[address] [address] Patricia Michelle MA 11/16/2024 Orders Only [facility] [address] [place] [facility] [place] [address] Patricia Michelle MA Chronic systolic heart failure (CMS/HCC) 11/15/2024 Telephone [facility] [address] [facility] [place] [address] Patricia Michelle MA 11/15/2024 Refill [facility] [address] [place] [facility] [place] [address] Patricia Michelle MA 11/07/2024 Orders Only [facility] [address] [place] [facility] [place] [address] Patricia Michelle MA Essential hypertension from Last 3 Months Allergies Active Allergy Reactions Criticality Noted Date [...] syndrome 08/01/2022 Coronary artery disease invo lving pauma coronary artery of pauma heart 06/25/2022 Assessment & Plan (12/17/2022 1:10 [...] send orders for cardiac rehab [facility] Chronic systolic heart failure 06/25/2022 [...] Assessment & Plan (12/17/2022 1:10 PM EDT): [facility] II- currently euvolemic and without exacerbation Continue GDMT- ASA lipitor, coreg, farxiga, entresto Monitor daily weights, I&O, fluid restriction 1.5-2L/day, renal function and electrolytes- please maintain K+>4 and Mg > 2 Assessment & Plan (06/25/2022 12:22 PM EDT): [facility]HC II Continue goal-directed medical therapy-aspirin, Lipitor, Toprol, [...] Plan (06/25/2022 12:20 PM EDT): Continue atorvastatin Immunizations Name Administration Dates Next Due Influenza, High-dose Seasona l, Quadrivalent, Preservative Free 05/30/2022 Influenza, injectable, MDCK, preservative free, quadrivalent 08/14/2021 Influenza, injectable, quadr ivalent, preservative free 05/18/2020 Influenza, seasonal, injectable 06/27/2013 Influenza, trivalent, adjuvanted 06/10/2018 Moderna SARS-CoV-2 Vaccination 07/19/2021,2020,09/22/2020 Social History Tobacco Use Types Packs/Day Years Used Date Smoking Tobacco: Never Smokeless Tobacco: Never Tobacco Cessation:Counseling Given: Not Answered Alcohol Use Standard Drinks/Week Comments Not Currently 0 (1 standard drink = 0.6 oz pur e alcohol) [facility] Utilities Answer Date Recorded In the past [...] place to sleep or slept in a long term (including now)? No 09/07/2023 Hunger Vital Sign [...] 12/30/2024 11:59 AM EDT Plan of Treatment Not on file Medical Devices Implanted Type Area Manager Managing Device Identifier Shelf Expiration Date Model / Serial / Lot LeadOdalis S 53, - [id number] - [id number] Implanted:Qty: 1 on 09/07/2023 by Cody Patrick MD at [facility] Lead [employer] [id number] 06/30/2025 [id number] / [id number] / LeadOdalisS 45, - [id number] - [id number] Implanted:Qty: 1 on 09/07/2023 by Cody Patrick MD at [facility] Lead [employer] [id number] 07/30/2025 [id number] / [id number] / Pacer Bro Machado Dr-T - [id number] - [id number] Implanted:Qty: 1 on 09/07/2023 by Cody Patrick MD at [facility] Pacemaker Biotronik [id number] 01/28/2025 [id number] / [id number] / Advance Directives * Full Code (Latest Code Status on File) Date Activated Date Inactivated Comments 09/07/2023 7:58 PM 09/09/2023 3:56 PM * Full Code Date Activated Date Inactivated Comments 09/07/2023 6:37 PM 09/07/2023 7:39 PM Care Teams Recruiting Team Lead Relationship Specialty Start Date End Date Rodrick Butler MD [address] [facility] 110 [place] [address] PCP - General 04/18/22
--- OUTSIDE RECORDS SUMMARY | 2025-01-31 08:26 | XMS_ITS | Encounter Summary ---
Author Organization [facility] Address [address] [place] [address] Care Team Providers Care Mill Attendant Name Role Phone Rodrick Butler MD Unavailable [phone] Rodrick Butler MD Primary Care Provider [phone] Jessica Rubi RN Unavailable [phone] Rodrick Butler MD Unavailable [phone] Ivelisse Baptiste LPN Unavailable Unavailable Encounter Details Date Type Department Care Team (Late st Contact Info) Description 06/01/2024 Abstract [facility] [address] [facility] 110 [place] [address] Rodrick Butler MD 112 [facility] 110 [place] [address] Social History Tobacco Use Types [...] How often do you attend chur or nondenominational services? More than 4 times per year 04/23/2023 Do you belong to any clubs o r organizations such as amish groups, unions, fraternal or athletic groups, or [...] Recorded Patient Health Questionnaire-2 Score 0 12/02/2023 [facility] of Occupat ional Health - Occupational Stress [...] place to sleep or slept in a prison (including now)? No 04/23/2023 Comments Unknown Sex and Gender Information Value Date Recorded Sex Assigned at Not on file Legal Sex Female 7:20 PM EDT Gender Identity Not on file Sexual Orientation Not on file documented as of this encounter Plan of Treatment Upcoming Encounters Date Type Department Care Team (Late st Contact Info) Description 05/19/2025 10:00 AM EDT Office Visit [facility] [address] [facility] 110 [place] [address] Rodrick Butler MD [address] [facility] 110 [place] [address] documented as of this encounter Visit Diagnoses Not on filedocumented in this encounter Care Teams Mill Attendant Relationship Specialty Start Date End Date Rodrick Butler MD [address] [facility] 110 [place] [address] PCP - [employer] 08/31/22 11/04/24 Rodrick Butler MD [address] [facility] [address] [place] [address] PCP - General Internal Medicine 01/14/23 Rodrick Butler MD [address] [facility] 110 [place] [address] PCP - Rosetta CLAROS 08/31/24 [place] Clinical Advocate Family Medicine 10/07/24 11/18/24 Ivelisse Baptiste LPN 11/18/24 documented as of this encounter
--- OUTSIDE RECORDS SUMMARY | 2025-01-31 08:26 | XMS_ITS | Encounter Summary ---
Author Organization [facility] Address [address] [place] [address] Care Team Providers Care Workgroup Leader Name Role Phone Rodrick Butler MD Unavailable [phone] Rodrick Butler MD Primary Care Provider [phone] Jessica Rubi RN Unavailable [phone] Rodrick Butler MD Unavailable [phone] Ivelisse Baptiste LPN Unavailable Unavailable Encounter Details Date Type Department Care Team (Late st Contact Info) Description 06/01/2024 Abstract [facility] [address] [facility] 110 [place] [address] Rodrick Butler MD 112 [facility] 110 [place] [address] Social History Tobacco Use Types [...] How often do you attend chur or orthodoxy services? More than 4 times per year 04/23/2023 Do you belong to any clubs o r organizations such as protestant groups, unions, fraternal or athletic groups, or [...] Recorded Patient Health Questionnaire-2 Score 0 12/02/2023 [facility] of Occupat ional Health - Occupational [...] 05/19/2025 10:00 AM EDT Office Visit [facility] [address] [facility] 110 [place] [address] Rodrick Butler MD [address] [facility] 110 [place] [address] documented as of this encounter Visit Diagnoses Not on filedocumented in this encounter Care Teams Workgroup Leader Relationship Specialty Start Date End Date Rodrick Butler MD [address] [facility] 110 [place] [address] PCP - Hum[employer] 08/31/22 11/04/24 Rodrick Butler MD [address] [facility] [address] [place] [address] PCP - General Internal Medicine 01/14/23 Rodrick Butler MD [address] [facility] 110 [place] [address] PCP - Rosetta CLAROS 08/31/24 [place] Clinical Advocate Family Medicine 10/07/24 11/18/24 Ivelisse Baptiste LPN 11/18/24 documented as of this encounter
--- OUTSIDE RECORDS SUMMARY | 2025-01-31 08:26 | XMS_ITS | Encounter Summary ---
Author Organization [facility] Address [address] [place] [address] Care Team Providers Care Awning Erector Name Role Phone Rodrick Butler MD Unavailable [phone] Rodrick Butler MD Primary Care Provider [phone] Jessica Rubi RN Unavailable [phone] Rodrick Butler MD Unavailable [phone] Ivelisse Baptiste LPN Unavailable Unavailable Encounter Details Date Type Department Care Team (Late st Contact Info) Description 06/01/2024 Abstract [facility] [address] [facility] 110 [place] [address] Rodrick Butler MD 112 [facility] 110 [place] [address] Social History Tobacco Use Types [...] How often do you attend chur or judaism services? More than 4 times per year 04/23/2023 Do you belong to any clubs o r organizations such as caodaism groups, unions, fraternal or athletic groups, or [...] Recorded Patient Health Questionnaire-2 Score 0 12/02/2023 [facility] of Occupat ional Health [...] 05/19/2025 10:00 AM EDT Office Visit [facility] [address] [facility] 110 [place] [address] Rodrick Butler MD [address] [facility] [address] [place] [address] documented as of this encounter Visit Diagnoses Not on filedocumented in this encounter Care Teams Awning Erector Relationship Specialty Start Date End Date Rodrick Butler MD [address] [facility] [address] [place] [address] PCP - [employer] 08/31/22 11/04/24 Rodrick Butler MD [address] [facility] [address] [place] [address] PCP - General Internal Medicine 01/14/23 Rodrick Butler MD [address] [facility] [address] [place] [address] PCP - Rosetta CLAROS 08/31/24 Jessica Rub[place] Clinical Advocate Family Medicine 10/07/24 11/18/24 Ivelisse Baptiste LPN 11/18/24 documented as of this encounter
--- OUTSIDE RECORDS SUMMARY | 2025-01-31 08:26 | XMS_ITS | Encounter Summary ---
Author Organization [facility] Address [address] [place] [address] Care Team Providers Care Jewelry Making Instructor Name Role Phone Rodrick Butler MD Unavailable [phone] Rodrick Butler MD Primary Care Provider [phone] Jessica Rubi RN Unavailable [phone] Rodrick Butler MD Unavailable [phone] Ivelisse Baptiste LPN Unavailable Unavailable Encounter Details Date Type Department Care Team (Late st Contact Info) Description 05/30/2024 Abstract [facility] [address] [facility] 110 [place] [address] Rodrick Butler MD 112 [facility] 110 [place] [address] Social History Tobacco Use Types [...] How often do you attend chur or zoroastrian services? More than 4 times per year [...] Recorded Patient Health Questionnaire-2 Score 0 12/02/2023 [facility] of Occupat ional Health - Occupational Stress [...] place to sleep or slept in a residential (including now)? No 04/23/2023 Comments Unknown Sex and Gender Information Value Date Recorded Sex Assigned at Not on file Legal Sex Female 7:20 PM EDT Gender Identity Not on file Sexual Orientation Not on file documented as of this encounter Plan of Treatment Upcoming Encounters Date Type Department Care Team (Late st Contact Info) Description 05/19/2025 10:00 AM EDT Office Visit [facility] [address] [facility] [address] [place] [address] Rodrick Butler MD [address] [facility] 110 [place] [address] documented as of this encounter Visit Diagnoses Not on filedocumented in this encounter Care Teams Jewelry Making Instructor Relationship Specialty Start Date End Date Rodrick Butler MD [address] [facility] 110 [place] [address] PCP - [employer] 08/31/22 11/04/24 Rodrick Butler MD [address] [facility] 110 [place] [address] PCP - General Internal Medicine 01/14/23 Rodrick Butler MD [address] [facility] 110 [place] [address] PCP - Rosetta CLAROS 08/31/24 Jessica Rubi, [place] Clinical Advocate Family Medicine 10/07/24 11/18/24 Ivelisse Baptiste LPN 11/18/24 documented as of this encounter
--- OUTSIDE RECORDS SUMMARY | 2025-01-31 08:26 | XMS_ITS | Encounter Summary ---
Author Organization [facility] Address [address] [place] [address] Care Team Providers Care Core Winding Operator Name Role Phone Rodrick Butler MD Unavailable [phone] Rodrick Butler MD Primary Care Provider [phone] Jessica Rubi RN Unavailable [phone] Rodrick Butler MD Unavailable [phone] Ivelisse Baptiste LPN Unavailable Unavailable Encounter Details Date Type Department Care Team (Late Contact Info) Description 01/20/2023 Abstract [facility] [address] [place] [phone] Leslie Dixon LPN [address] [place] [address] Social History Tobacco Use Types Packs/Day Years [...] Encounters Date Type Department Care Team (Late Contact Info) Description 05/19/2025 10:00 AM EDT Office Visit [facility] 112 [facility] 110 [place] [address] Rodrick Butler MD 112 [facility] 110 [place], [place] [id number] documented as of this encounter Visit Diagnoses Not on filedocumented in this encounter Care Teams Core Winding Operator Relationship Specialty Start Date End Date Rodrick Butler MD [address] [place] [address] [place] [address] PCP - Hum[employer] 08/31/22 11/04/24 Rodrick Butler MD [address] [place] [address] [place] [address] PCP - General Internal Medicine 01/14/23 Rodrick Butler MD [address] [facility] 110 [place] [address] PCP - Rosetta CLAROS 08/31/24 Jessica Rubi, RN Clinical Advocate Family Medicine 10/07/24 11/18/24 Ivelisse Baptiste LPN 11/18/24 documented as of this encounter
--- OUTSIDE RECORDS SUMMARY | 2025-01-31 08:26 | XMS_ITS | Encounter Summary ---
Author Organization [facility] Address [address] [place] [address] Care Team Providers Care Avionics Engineer Name Role Phone Rodrick Butler MD Unavailable [phone] Rodrick Butler MD Primary Care Provider [phone] Jessica Rubi RN Unavailable [phone] Rodrick Butler MD Unavailable [phone] Ivelisse Baptiste LPN Unavailable Unavailable Encounter Details Date Type Department Care Team (Late st Contact Info) Description 06/01/2024 Abstract [facility] [address] [facility] 110 [place] [address] Rodrick Butler MD 112 [facility] 110 [place] [address] Social History Tobacco Use Types [...] How often do you attend chur or synagogue services? More than 4 times per year 04/23/2023 Do you belong to any clubs o r organizations such as restorationism groups, unions, fraternal or athletic groups, or [...] Recorded Patient Health Questionnaire-2 Score 0 12/02/2023 [facility] of Occupat ional [...] place to sleep or slept in a longterm (including now)? No 04/23/2023 Comments Unknown Sex and Gender Information Value Date Recorded Sex Assigned at Not on file Legal Sex Female 7:20 PM EDT Gender Identity Not on file Sexual Orientation Not on file documented as of this encounter Plan of Treatment Upcoming Encounters Date Type Department Care Team (Late st Contact Info) Description 05/19/2025 10:00 AM EDT Office Visit [facility] [address] [facility] 110 [place] [address] Rodrick Butler MD [address] [facility] 110 [place] [address] documented as of this encounter Visit Diagnoses Not on filedocumented in this encounter Care Teams Avionics Engineer Relationship Specialty Start Date End Date Rodrick Butler MD [address] [facility] 110 [place] [address] PCP - Hum[employer] 08/31/22 11/04/24 Rodrick Butler MD [address] [facility] 110 [place] [address] PCP - General Internal Medicine 01/14/23 Rodrick Butler MD [address] [facility] 110 [place] [address] PCP - Rosetta CLAROS 08/31/24 Jessica Rubi, [place] Clinical Advocate Family Medicine 10/07/24 11/18/24 Ivelisse Baptiste LPN 11/18/24 documented as of this encounter
--- OUTSIDE RECORDS SUMMARY | 2025-01-31 08:26 | XMS_ITS | Encounter Summary ---
Author Organization [facility] Address [address] [place] [address] Care Team Providers Care Director Ambulatory Name Role Phone Rodrick Butler MD Unavailable [phone] Rodrick Butler MD Primary Care Provider [phone] Jessica Rubi RN Unavailable [phone] Rodrick Butler MD Unavailable [phone] Ivelisse Baptiste LPN Unavailable Unavailable Encounter Details Date Type Department Care Team (Late st Contact Info) Description 06/01/2024 Abstract [facility] [address] [facility] 110 [place] [address] Rodrick Butler MD 112 [facility] 110 [place] [address] Social History Tobacco Use Types [...] How often do you attend chur or worship services? More than 4 times per year 04/23/2023 Do you belong to any clubs o r organizations such as pentecostal groups, unions, fraternal or athletic groups, or [...] Recorded Patient Health Questionnaire-2 Score 0 12/02/2023 [facility] of Occupat ional Health - Occupational Stress [...] place to sleep or slept in a nursing home (including now)? No 04/23/2023 Comments Unknown Sex and Gender Information Value Date Recorded Sex Assigned at Not on file Legal Sex Female 7:20 PM EDT Gender Identity Not on file Sexual Orientation Not on file documented as of this encounter Plan of Treatment Upcoming Encounters Date Type Department Care Team (Late st Contact Info) Description 05/19/2025 10:00 AM EDT Office Visit [facility] [address] [facility] 110 [place] [address] Rodrick Butler MD [address] [facility] 110 [place] [address] documented as of this encounter Visit Diagnoses Not on filedocumented in this encounter Care Teams Director Ambulatory Relationship Specialty Start Date End Date Rodrick Butler MD [address] [facility] 110 [place] [address] PCP - [employer] 08/31/22 11/04/24 Rodrick Butler MD [address] [facility] 110 [place] [address] PCP - General Internal Medicine 01/14/23 Rodrick Butler MD [address] [facility] 110 [place] [address] PCP - Rosetta CLAROS 08/31/24 Jessica Rubi, [place] Clinical Advocate Family Medicine 10/07/24 11/18/24 Ivelisse Baptiste LPN 11/18/24 documented as of this encounter
--- OUTSIDE RECORDS SUMMARY | 2025-01-31 08:27 | XMS_ITS | Clinical Summary ---
Author Organization [facility] Address [address] [place], [place] [address] Care Team Providers Care Straw Hat Washer Operator Name Role Phone Sunil Zhao MD Primary Care Provider Allergies Active Allergy Reactions Criticality Noted Date Comments Iodine 2002 Shellfish 2002 vomitting, diarrhea Sulfa (Sulfonamide Antibiotics) 2002 sore in mouth Medications GLUCOPHAGE 500MG TABLET Take three (3) tablets in a.m.; two (2) tablets in p.m. 0 2 Active NORVASC 5MG TABLET Take one(1) tablet daily. 0 2 Active ZIAC 2.5/6.25MG TABLET Take one-half (1/2) tablet daily 0 2 Active ACTOS 15MG TABLET Take one (1) tablet every other day 0 2 Active ATIVAN 0.5MG TABLET Take one (1) tablet at h.s. p.r.n. 0 2 Active BENTYL 10MG CAPSULE as necessary 0 2 Active Social History Tobacco Use Types Packs/Day Years Used Date Smoking Tobacco: Never Alcohol Use Standard Drinks/Week Comments No 0 (1 standard drink = 0.6 oz pur e alcohol) Comments No Sex and Gender Information Value Date Recorded Sex Assigned at Not on file Legal Sex Female 9:49 AM EST Gender Identity Not on file Sexual Orientation Not on file Last Filed Vital Signs Vital Sign Reading Time Taken Comments Blood Pressure 158/88 04/25/2002 1:20 PM EDT Pulse 76 04/25/2002 1:20 PM EDT Temperature - - Respiratory Rate - - Oxygen Saturation - - Inhaled Oxygen Concentration - - Weight 78 kg (171 lb 14.4 oz) 04/25/2002 1:20 PM EDT Height 169.9 cm (5' 6.9 ) 04/25/2002 1:20 PM EDT Body Mass Index 27 04/25/2002 1:20 PM EDT Plan of Treatment Health Maintenance Due Date Last Done Comments Anxiety Screening 1957 Depression Screening 1958 DTaP,Tdap,Td Vaccine (1 - Tdap) 1958 Pneumococcal Vaccine: 50+ (1 of 1 - PCV) 1989 Shingrix Vaccine (1 of 2) 1989 Bone Density Screening 2004 Diabetes Screening 01/28/2005 01/28/2002 RSV Vaccine (1 - 1-dose 75+ series) 2014 Covid-19 Vaccine ( - season) 2024 Advance Directive Discussion 08/31/2024 Influenza Vaccine (Season Ended) 2025 Procedures Procedure Name Priority Date/Time Associated Diagnosis Comments COMPREHENSIVE METABOLIC PANEL 01/28/2002 11:40 AM EDT from Last 3 Months or Most Recently Relevant to Health Maintenance Results * (ABNORMAL) COMP METABOLIC PANEL (01/28/2002 11:40 AM EDT) Protein, Total 8.3 6.0 - 8.4 g/dL [facility] Albumin 4.2 3.5 - 5.0 g/dL [facility] Calcium 10.5 8.5 - 10.5 mg/dL [facility] Bilirubin, Total 0.3 0.0 - 1.5 mg/dL [facility] Alkaline Phosphatase 121(A) 20 - 120 U/L [facility] AST 25 7 - 40 U/L [facility] Glucose 150(A) 65 - 110 mg/dL [facility] BUN 13 8 - 25 mg/dL [facility] Creatinine 0.7 0.7 - 1.4 mg/dL [facility] Sodium 139 132 - 148 mmol/L [facility] Potassium 5.1(A) 3.5 - 5.0 mmol/L [facility] Chloride 103 98 - 110 mmol/L [facility] CO2 26 24 - 32 mmol/L [facility] Anion Gap 10 0 - 15 mmol/L [facility] ALT 18 0 - 45 U/L [facility] 01/28/2002 11:4 0 AM EDT us Errol uL MD LABORATORY Final Resu lt [facility] [address] [place] [address] from Last 3 Months or Most Recently Relevant to Health Maintenance Insurance [employer] PPO Care Teams Straw Hat Washer Operator Relationship Specialty Start Date End Date Sunil Zhao MD [address] [place] [address] PCP - General 12/17/01
--- OUTSIDE RECORDS SUMMARY | 2025-01-31 08:27 | XMS_ITS | Encounter Summary ---
Author Organization [facility] Address [address] [place] [address] Care Team Providers Care Funeral Pre Arrangement Specialist Name Role Phone Rodrick Butler MD Unavailable [phone] Rodrick Butler MD Primary Care Provider [phone] Jessica Rubi RN Unavailable [phone] Rodrick Butler MD Unavailable [phone] Ivelisse Baptiste LPN Unavailable Unavailable Encounter Details Date Type Department Care Team (Late st Contact Info) Description 10/26/2024 Abstract [facility] [address] [facility] 110 [place] [address] Rodrick Butler MD 112 [facility] 110 [place] [address] Social History Tobacco Use Types [...] How often do you attend chur or sabianism services? More than 4 times per year 06/21/2024 Do you belong to any clubs o r organizations such as buddhist groups, unions, fraternal or athletic groups, or [...] Recorded Patient Health Questionnaire-2 Score 0 12/02/2023 [facility] of Occupat ional Health - Occupational [...] in a chcf (including now)? No 04/23/2023 Housing Stability Vital Sign Answer Raheel e Recorded In the last 12 months, was t here a time when you were not able to pay the mortgage or rent on time? No 06/21/2024 In the past 12 months, how m any times have you moved where you were living? 0 06/21/2024 At any time in the past 12 m [facility], were you homeless or living in a chcf (including now)? No 06/21/2024 Comments Unknown Sex [...] EDT Office Visit [facility] 112 [facility] 110 [place] [address] Rodrick Butler MD 112 [facility] 110 [place] [address] documented as of this encounter Visit Diagnoses Not on filedocumented in this encounter Care Teams Funeral Pre Arrangement Specialist Relationship Specialty Start Date End Date Rodrick Butler MD [address] [facility] 110 [place] [address] PCP - Hum[employer] 08/31/22 11/04/24 Rodrick Butler MD [address] [facility] 110 [place] [address] PCP - General Internal Medicine 01/14/23 Rodrick Butler MD [address] [facility] 110 [place] [address] PCP - Rosetta CLAROS 08/31/24 Jessica Rubi, RN Clinical Advocate Family Medicine 10/07/24 11/18/24 Ivelisse Baptiste LPN 11/18/24 documented as of this encounter
--- OUTSIDE RECORDS SUMMARY | 2025-01-31 08:27 | XMS_ITS | Encounter Summary ---
Author Organization [facility] Address [address] [place] [address] Care Team Providers Care Crm Technical Lead Name Role Phone Rodrick Butler MD Unavailable [phone] Rodrick uBtler MD Primary Care Provider [phone] Jessica Rubi RN Unavailable [phone] Rodrick Butler MD Unavailable [phone] Ivelisse Baptiste LPN Unavailable Unavailable Encounter Details Date Type Department Care Team (Late st Contact Info) Description 06/23/2023 Abstract [facility] [address] [place] [id number] Camilo Falcon MD [address] [place] [address] Social History Tobacco Use Types Packs/Day Years [...] any clubs o r organizations such as catholic groups, unions, fraternal or athletic groups, or [...] and heating? Not hard at all 04/23/2023 [facility] of Occupat ional Health - Occupational [...] Visit [facility] [address] [facility] 110 [place] [address] Rodrick Butler MD [address] [facility] 110 [place] [address] documented as of this encounter Visit Diagnoses Not on filedocumented in this encounter Care Teams Crm Technical Lead Relationship Specialty Start Date End Date Rodrick Butler MD [address] [place] [address] [place] [address] PCP - Hum[employer] 08/31/22 11/04/24 Rodrick Butler MD [address] [facility] 110 [place] [address] PCP - General Internal Medicine 01/14/23 Rodrick Butler MD 112 [facility] 110 [place] [address] PCP - Rosetta CLAROS 08/31/24 Jessica Rubi, RN Clinical Advocate Family Medicine 10/07/24 11/18/24 Ivelisse Baptiste LPN 11/18/24 documented as of this encounter
--- OUTSIDE RECORDS SUMMARY | 2025-01-31 08:27 | XMS_ITS | Encounter Summary ---
Author Organization [facility] Address [address] [place] [address] Care Team Providers Care Refinish Technician Name Role Phone Rodrick Butler MD Primary Care Provider [phone] Rodrick Butler MD Unavailable [phone] Ivelisse Baptiste LPN Unavailable Unavailable Reason for Visit * Reason Comments Med Refill Encounter Details Date Type Department Care Team (Late st Contact Info) Description 01/18/2025 Refill [facility] 112 [facility] [facility] 110 [place] [phone] Sharri Vick, BRAKE LINING FINISHER ASBESTOS 112 [facility] 110 [place], [place] [phone] Gastroesophageal reflux disease without esophagitis Social History Tobacco Use Types Packs/Day Years [...] week 06/21/2024 How often do you attend [facility] or anabaptist services? More than 4 times per year 06/21/2024 Do you belong to any clubs o r organizations such as islam groups, unions, fraternal or athletic groups, or [...] any time in the past 12 m [facility], were you homeless or living in a [...] EDT Office Visit [facility] [address] [facility] 110 [place] [address] Rodrick Butler MD 112 [facility] 110 [place] [address] documented as of this encounter Visit Diagnoses Diagnosis Gastroesophageal reflux disease without esophagitis Esophageal reflux documented in this encounter Care Teams Refinish Technician Relationship Specialty Start Date End Date Rodrick Butler MD 112 [facility] 110 [place] [address] PCP - General Internal Medicine 01/14/23 Rodrick Butler MD 112 [facility] [address] [place] [address] PCP - Rosetta CLAROS 08/31/24 Ivelisse Baptiste LPN 11/18/24 documented as of this encounter
--- OUTSIDE RECORDS SUMMARY | 2025-01-31 08:27 | XMS_ITS | Encounter Summary ---
Author Organization [facility] Address [address] [place] [address] Care Team Providers Care Fashion Supervisor Name Role Phone Naveen Zhao MD Primary Care Provider [phone] Source Comments In the event this information is protected by the Federal Confidentiality of Alcohol and Drug AbusePatient Records regulations: The Federal rules restrict any use of the information to criminally investigate or prosecute any alcohol or drug abuse patient.[facility] Encounter Details Date Type Department Care Team (Latest Contact Info) Description 07/28/2002 Prob Sum Review Provider, Cc Social History Tobacco Use Types Packs/Day Years [...] on file documented as of this encounter Visit Diagnoses Not on filedocumented in this encounter Care Teams Fashion Supervisor Relationship Specialty Start Date End Date Naveen Zhao MD [address] [place] [address] PCP - General 12/17/01 documented as of this encounter
[2025-01-31 09:50] LABS: Alanine Aminotransferase 21 U/L (14-59); Anion Gap 14.8; Aspartate Amino Transferase 15 U/L (15-37); BUN Creatinine Ratio 20.5; Calcium 9.3 mg/dL (8.5-10.1); Carbon Dioxide 24.2 mmol/L (21.0-32.0); Chloride 105 mmol/L (98-107); Chol HDL Ratio 2.1; Cholesterol 81 mg/dL (<=200); Estimated GFR (African America 56 (>=60 mL/min/1.73m^2); Estimated GFR (Non-African Ame 46 (>=60 mL/min/1.73m^2); Glucose 138 mg/dL (74-106); HDL Cholesterol 38 mg/dL (40-60); Sodium 139 mmol/L (136-145); Triglycerides 52 mg/dL (<=150); VLDL CHOLESTEROL 10.4 mg/dL
== END 2025-01-31 08:20 | disposition home or self-care (01) ==
PROVIDERS: PCP Internal Medicine; Visit Provider Internal Medicine Cardiovascular Disease
DX: E78.00 Pure hypercholesterolemia, unspecified (principal); I10 Essential (primary) hypertension
CPT/HCPCS: 80048; 80061; 84450; 84460

== ENCOUNTER 2025-06-06 13:09 | Emergency (ER) | payer MEDICARE, SELFPAY ==
[2025-06-06 13:13] VITALS: BP 179/68; PULSE 60; TEMP 36.8; O2SAT 99; BMI 23.5
--- OUTSIDE RECORDS SUMMARY | 2025-06-06 13:21 | XMS_ITS | Encounter Summary ---
Author Organization [facility] Address [address] [place] [address] Care Team Providers Care Sales Development Executive Name Role Phone Rodrick Butler MD Unavailable [phone] Rodrick Butler MD Primary Care Provider [phone] Jessica Rubi RN Unavailable [phone] Rodrick Butler MD Unavailable [phone] Ivelisse Baptiste LPN Unavailable Encounter Details Date Type Department Care Team (Late st Contact Info) Description 09/08/2023 Abstract [facility] [place] [facility] 112 [facility] 110 [place] [address] Rodrick Butler MD 112 [facility] 110 [place] [address] Social History Tobacco Use Types [...] How often do you attend chur or spiritism services? More than 4 times per year [...] and heating? Not hard at all 04/23/2023 [facility] of Occupat ional Health - Occupational [...] Care Team (Late st Contact Info) Description 06/07/2025 1:00 PM EDT Office Visit [facility] [place] [address] [facility] [address] [place] [address] Beverly Plunkett PA [address] [place] [address] [place] [address] 06/14/2025 10:00 AM EDT Office Visit [facility] [place] [address] [place] [address] [place] [address] Rodrick Butler MD [address] [place] [address] [place] [address] documented as of this encounter Visit Diagnoses Not on filedocumented in this encounter Care Teams Sales Development Executive Relationship Specialty Start Date End Date Rodrick Butler MD [address] [place] [address] [place] [address] PCP - [employer] 08/31/22 11/04/24 Rodrick Butler MD [address] [facility] 110 [place] [address] PCP - General Internal Medicine 01/14/23 Rodrick Butler MD [address] [facility] 110 [place] [address] PCP - [place] HYACINTH 08/31/24 Jessica Rubi, RN [address] [place] [address] Clinical Advocate Family Medicine 10/07/24 11/18/24 Ivelisse Baptiste LPN [address] [address] 11/18/24 documented as of this encounter
--- OUTSIDE RECORDS SUMMARY | 2025-06-06 13:21 | XMS_ITS | Encounter Summary ---
Author Organization [facility] Address [address] [place] [address] Care Team Providers Care Perfect Binder Feeder Offbearer Name Role Phone Rodrick Butler MD Unavailable [phone] Rodrick Butler MD Primary Care Provider [phone] Jessica Rubi RN Unavailable [phone] Rodrick Butler MD Unavailable [phone] Ivelisse Baptiste LPN Unavailable Encounter Details Date Type Department Care Team (Late st Contact Info) Description 01/13/2024 [facility] [address] [place] [address] [place] [id number] Unallocated, Noms Provider, [address] [place], [place] [id number] Social History Tobacco Use Types Packs/Day Years [...] week 04/23/2023 How often do you attend [facility] or pentecostalism services? More than 4 times [...] Recorded Patient Health Questionnaire-2 Score 0 12/02/2023 [facility] Occupat ional Health [...] 1:00 PM EDT Office Visit [facility] [place] Ortiz [address] [facility] [address] [place] [address] Beverly Plunkett PA [address] [facility] 110 [place] [address] 06/14/2025 10:00 AM EDT Office Visit [facility] [place] Cuadra [address] [facility] [address] [place] [id number] Rodrick Butler MD [address] [facility] 110 [place] [address] documented as of this encounter Procedures Procedure Name Priority Date/Time Associated Diagnosis Comments SCANNED LABS Routine 01/13/2024 10:19 AM EDT documented in this encounter Results * SCANNED LABS (01/13/2024 10:19 AM EDT) us Noms Provider Unallocated MD LAB CHG PERFORMABLE S Final Result documented in this encounter Visit Diagnoses Not on filedocumented in this encounter Care Teams Perfect Binder Feeder Offbearer Relationship Specialty Start Date End Date Rodrick Butler MD [address] [facility] [address] [place] [address] PCP - [employer] 08/31/22 11/04/24 Rodrick Butler MD [address] [facility] [address] [place] [address] PCP - General Internal Medicine 01/14/23 Rodrick Butler MD [address] [facility] [address] [place] [address] PCP - Rosetta CLAROS 08/31/24 Jessica Rubi, [place] [address] [place] [address] Clinical [facility] 10/07/24 11/18/24 Ivelisse Baptiste LPN [address] [facility] [address] [place] [address] 11/18/24 documented as of this encounter
--- OUTSIDE RECORDS SUMMARY | 2025-06-06 13:21 | XMS_ITS | Encounter Summary ---
Author Organization [facility] Address [address] [place] [address] Care Team Providers Care Banking Services Clerk Name Role Phone Rodrick Butler MD Unavailable [phone] Rodrick Butler MD Primary Care Provider [phone] Jessica Rubi RN Unavailable [phone] Rodrick Butler MD Unavailable [phone] Ivelisse Baptiste LPN Unavailable Encounter Details Date Type Department Care Team (Late st Contact Info) Description 09/07/2023 Abstract [facility] [place] [facility] 112 [facility] 110 [place] [address] Rodrick Butler MD 112 [facility] 110 [place] [address] Social History Tobacco Use Types [...] any clubs o r organizations such as restorationist groups, unions, fraternal or athletic groups, or [...] and heating? Not hard at all 04/23/2023 [facility] Occupat ional Health - Occupational [...] place to sleep or slept in a mcc (including now)? No 04/23/2023 Comments Unknown Sex [...] Visit [facility] [place] Rileynce [address] [facility] [address] [place] [address] Beverly Plunkett PA [address] [place] [address] [place] [address] 06/14/2025 10:00 AM EDT Office Visit [facility] [place] Rile[facility]ce [address] [place] [address] [place] [address] Rodrick Butler MD [address] [place] [address] [place] [address] documented as of this encounter Visit Diagnoses Not on filedocumented in this encounter Care Teams Banking Services Clerk Relationship Specialty Start Date End Date Rodrick Butler MD [address] [place] [address] [place] [address] PCP - [employer] 08/31/22 11/04/24 Rodrick Butler MD [address] [facility] 110 [place] [address] PCP - General Internal Medicine 01/14/23 Rodrick Butler MD [address] [facility] 110 [place] [address] PCP - [place] HYACINTH 08/31/24 Jessica Rubi, RN [address] [place] [address] Clinical [facility] Family [facility] 10/07/24 11/18/24 Ivelisse Baptiste LPN [address] [address] 11/18/24 documented as of this encounter
--- OUTSIDE RECORDS SUMMARY | 2025-06-06 13:21 | XMS_ITS | Encounter Summary ---
Author Organization [facility] Address [address] [place] [address] Care Team Providers Care Heel Seat Flap Stapler Name Role Phone Rodrick Butler MD Unavailable [phone] Rodrick Butler MD Primary Care Provider [phone] Jessica Rubi RN Unavailable [phone] Rodrick Butler MD Unavailable [phone] Ivelisse Baptiste LPN Unavailable Encounter Details Date Type Department Care Team (Late st Contact Info) Description 09/07/2023 Abstract [facility] [place] [facility] 112 [facility] 110 [place] [address] Rodrick Butler MD 112 [facility] 110 [place] [address] Social History Tobacco Use Types [...] How often do you attend chur or zoroastrianism services? More than 4 times per year [...] and heating? Not hard at all 04/23/2023 [facility] Occupat ional Health - [...] place to sleep or slept in a alf (including now)? No 04/23/2023 Comments Unknown Sex [...] Visit [facility] [place] Rileynce [address] [facility] [address] [place] [address] Beverly Plunkett PA [address] [place] [address] [place] [address] 06/14/2025 10:00 AM EDT Office Visit [facility] [place] Rileynce [address] [place] [address] [place] [address] Rodrick Butler MD [address] [place] [address] [place] [address] documented as of this encounter Visit Diagnoses Not on filedocumented in this encounter Care Teams Heel Seat Flap Stapler Relationship Specialty Start Date End Date Rodrick Butler MD [address] [place] [address] [place] [address] PCP - [employer] 08/31/22 11/04/24 Rodrick Butler MD [address] [facility] 110 [place] [address] PCP - General Internal Medicine 01/14/23 Rodrick Butler MD [address] [facility] 110 [place] [address] PCP - [place] HYACINTH 08/31/24 Jessica Rubi, RN [address] [place] [address] Clinical [facility] Family [facility] 10/07/24 11/18/24 Ivelisse Baptiste LPN [address] [address] 11/18/24 documented as of this encounter
--- OUTSIDE RECORDS SUMMARY | 2025-06-06 13:21 | XMS_ITS | Encounter Summary ---
Author Organization [facility] Address [address] [place] [address] Care Team Providers Care Lumber Stacker Driver Name Role Phone Rodrick Butler MD Unavailable [phone] Rodrick Butler MD Primary Care Provider [phone] Jessica Rubi RN Unavailable [phone] Rodrick Butler MD Unavailable [phone] Ivelisse Baptiste LPN Unavailable Encounter Details Date Type Department Care Team (Late st Contact Info) Description 09/07/2023 [facility] [address] [place] [address] [place] [id number] A, Unknown Practice [address] [place] [address] Social History Tobacco Use Types Packs/Day Years [...] any clubs o r organizations such as scientology groups, unions, fraternal or athletic groups, or [...] and heating? Not hard at all 04/23/2023 [facility] - Occupational Stress Questionnaire Answer Date [...] place to sleep or slept in a mcfp (including now)? No 04/23/2023 Comments Unknown Sex and Gender Information Value Date Recorded Sex Assigned at Not on file Legal Sex Female 7:20 PM EDT Gender Identity Not on file Sexual Orientation Not on file documented as of this encounter Plan of Treatment Upcoming Encounters Date Type Department Care Team (Late st Contact Info) Description 06/07/2025 1:00 PM EDT Office Visit [facility] [place] Cu[facility] [address] [facility] [address] [place] [address] Beverly Plunkett PA [address] [facility] 110 [place] [address] 06/14/2025 10:00 AM EDT Office Visit [facility] [place] Rileynce [address] [facility] [address] [place] [address] Rodrick Butler MD [address] [facility] [address] [place] [address] documented as of this encounter Procedures Procedure Name Priority Date/Time Associated Diagnosis Comments ELECTROCARDIOGRAM REPORT Routine 1:06 PM EST XR CHEST 2 VIEWS Routine 09/04/2023 1:09 PM EST ELECTROCARDIOGRAM REPORT Routine 1:08 PM EST documented in this encounter [...] on filedocumented in this encounter Care Teams Lumber Stacker Driver Relationship Specialty Start Date End Date Rodrick Butler MD [address] [facility] 110 [place] [address] PCP - [employer] 08/31/22 11/04/24 Rodrick Butler MD [address] [facility] 110 [place] [address] PCP - General Internal Medicine 01/14/23 Rodrick Butler MD [address] [facility] [address] [place] [address] PCP - Rosetta CLAROS 08/31/24 Jessica Rubi, RN [address] [place] [address] Clinical Advocate Family Medicine 10/07/24 11/18/24 Ivelisse Baptiste LPN [address] [facility] 110 [place] [address] 11/18/24 documented as of this encounter
--- OUTSIDE RECORDS SUMMARY | 2025-06-06 13:21 | XMS_ITS | Encounter Summary ---
Author Organization [facility] Address [address] [place] [address] Care Team Providers Care Photo Tube Assembler Name Role Phone Rodrick Butler MD Unavailable [phone] Rodrick Butler MD Primary Care Provider [phone] Jessica Rubi RN Unavailable [phone] Rodrick Butler MD Unavailable [phone] Ivelisse Baptiste LPN Unavailable Encounter Details Date Type Department Care Team (Late st Contact Info) Description 09/08/2023 Abstract [facility] [place] [facility] 112 [facility] 110 [place] [address] Rodrick Butler MD 112 [facility] 110 [place] [address] Social History Tobacco Use Types [...] How often do you attend chur or amish services? More than 4 times per year 04/23/2023 Do you belong to any clubs o r organizations such as uatsdin groups, unions, fraternal or athletic groups, or [...] and heating? Not hard at all 04/23/2023 [facility] Occupat ional Health - [...] WAY [facility] [address] [place] [address] Beverly Plunkett PA [address] [place] [address] [place] [address] 06/14/2025 10:00 AM EDT Office Visit [facility] [place] Rileynce [address] [place] [address] [place] [address] Rodrick Butler MD [address] [place] [address] [place] [address] documented as of this encounter Visit Diagnoses Not on filedocumented in this encounter Care Teams Photo Tube Assembler Relationship Specialty Start Date End Date Rodrick Butler MD [address] [place] [address] [place] [address] PCP - [employer] 08/31/22 11/04/24 Rodrick Butler MD [address] [facility] 110 [place] [address] PCP - General Internal Medicine 01/14/23 Rdorick Butler MD [address] [facility] 110 [place] [address] PCP - [place] HYACINTH 08/31/24 Jessica Rubi, RN [address] [place] [address] Clinical [facility] Family [facility] 10/07/24 11/18/24 Ivelisse Baptiste LPN [address] [address] 11/18/24 documented as of this encounter
--- OUTSIDE RECORDS SUMMARY | 2025-06-06 13:21 | XMS_ITS | Clinical Summary ---
Author Organization [facility] Address [address] [place] [address] Care Team Providers Care Timekeeper Name Role Phone Rodrick Butler MD Primary Care Provider [phone] Rodrick Butler MD Unavailable [phone] Ivelisse Baptiste LPN Unavailable Allergies Active Allergy Reactions Criticality Noted Date Comments Amlodipine Swelling Medium 09/12/2024 Swelling in feet Clonidine Other 09/20/2024 Dry Mouth Dapagliflozin Other 10/04/2024 Empagliflozin Other Medium 01/27/2023 Yeast Infections Iodine 2002 Sacubitril-Valsartan Other 07/13/2024 hypertension Shellfish Allergy 2002 vomitting, diarrhea Shellfish Protein-Containing Drug Products Unknown 01/27/2023 Sulfa Antibiotics Unknown,Swelling Medium 2002 sore in mouth Medications aspirin 81 MG EC tablet Take 81 mg by mouth in the morning. Active glucose blood (Accu-Chek Briana Plus) test strip 1 each in the morning and 1 each before bedtime. Active atorvastatin (Lipitor) 80 MG tabletIndication s:Atherosclerosi s of [place] coronary artery of [place] heart without angina pectoris,Mixed hyperlipidemia Take 1 tablet (80 mg) by mouth at bedtime 100 tablet 3 024 2024 Active Blood Glucose Monitoring Suppl (Blood Glucose Monitor System) w/Device kitIndications:T ype 2 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 gangrene, unspecified whether custodial insulin use (HCC) 1 each Daily 1 kit 025 Active Glucose Blood (Blood Glucose Test) stripIndications :Type 2 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 gangrene, unspecified whether machine long goods helper insulin use (HCC) 1 each by In Vitro route Daily 100 strip 3 025 Active Lancets 30G miscIndications: Type 2 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 gangrene, unspecified whether machine long goods helper insulin use (HCC) 1 each Daily 100 each 3 025 Active latanoprost (Xalatan) 0.005 % ophthalmic solution Administer 1 drop into both eyes at bedtime 024 Active cyproheptadine (Periactin) 4 MG tabletIndication s:Vertigo TAKE 1/2 TABLET AT BEDTIME 45 tablet 3 025 Active spironolactone (Aldactone) 50 MG tablet Take 25 mg by mouth in the morning. 025 2025 Active insulin glargine (Lantus SoloStar) 100 UNIT/ML penIndications:D iabetic peripheral neuropathy (HCC),Type 2 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 gangrene, with long-term current use of insulin ([facility]) INJECT 30 UNITS SUBCUTANEOUSLY (UNDER THE SKIN) IN THE MORNING 15 mL 3 025 Active sacubitril-valsa rtan (Entresto) 97-103 MG tabletIndication s:Chronic systolic heart failure (HCC) Take 1 tablet by mouth in the morning and 1 tablet before bedtime. 60 tablet 11 025 2025 Active carvedilol (Coreg) 6.25 MG tabletIndication s:Benign essential hypertension Take 1 tablet (6.25 mg) by mouth in the morning and 1 tablet (6.25 mg) in the evening. Take with meals. TAKE WITH THE 12.5MG COREG. 200 tablet 3 025 Active carvedilol (Coreg) 12.5 MG tabletIndication s:Benign essential hypertension,Chr onic systolic heart failure (HCC) Take 1 tablet (12.5 mg) by mouth in the morning and 1 tablet (12.5 mg) in the evening. Take with meals. 200 tablet 3 025 2025 Active traZODone (Desyrel) 50 MG tabletIndication s:Primary insomnia TAKE 1 TABLET BY MOUTH AT BEDTIME NEEDED for sleep 30 tablet 5 Active furosemide (Lasix) 20 MG tabletIndication s:Bilateral leg edema Take 1 tablet (20 mg) by mouth Daily as needed (Swelling) 90 tablet 1 Active metFORMIN XR (Glucophage-XR) 500 MG 24 hr tabletIndication s:Type 2 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 gangrene, unspecified whether custodial insulin use (HCC) Take 2 tablets (1,000 mg) by mouth in the morning. Take with meals. Do not crush, chew, or split. 60 tablet 11 025 2025 Active Janumet XR 100-1000 MG per 24 hr tabletIndication s:Type 2 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 gangrene, unspecified whether custodial insulin use (HCC) TAKE 1 TABLET BY MOUTH IN THE MORNING WITH A MEAL 30 tablet 11 025 2024 Discontinued losartan (Cozaar) 50 MG tablet TAKE 1 TABLET BY MOUTH TWICE DAILY NIGHTLY 2024 Discontinued(S selma effects) Active Problems Problem Noted Date Diagnosed Date Atrioventricular block, complete 03/16/2025 Overview (03/16/2025): Noted by EULA SINGH MD last documented on [id number] Thrombocytopenia, unspecified 03/16/2025 Overview (03/16/2025): Noted by [facility] last documented on [id number] Pure hypercholesterolemia 01/01/2025 Gastroesophageal reflux disease without esophagi tis 09/20/2024 [...] Encounters Date Type Department Care Team Description 05/29/2025 Patient Outreach [facility] [employer] [address] [place] [address] Ivelisse Baptiste LPN 05/23/2025 Abstract [facility] [place] [facility] [address] [facility] [address] [place] [address] Rodrick Butler MD 05/19/2025 10:00 AM EDT Office Visit [facility] [place] [facility] [address] [facility] [address] [place] [address] Rodrick Butler MD Routine general medical examination at health care facility (Primary Dx); ACP (advance care planning); Flu vaccine need; Type 2 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 gangrene, unspecified whether machine long goods helper insulin use (HCC); Atrioventricular block, complete (HCC); Diabetic peripheral neuropathy (HCC); Restless legs syndrome; Atherosclerosis of [place] coronary artery of [place] heart without angina pectoris ; Chronic systolic heart failure (HCC); S/P placement of cardiac pacemaker; Renal artery stenosis; Gastroesophageal reflux disease without esophagitis; Pure hypertriglyceridemia ; CALI-inhibitor cough 05/19/2025 Bamboo flowsheet [facility] [place] [facility] [address] [facility] [address] [place] [address] Rodrick Butler MD 05/19/2025 Travel 03/23/2025 Telephone [facility] [place] [facility] [address] [facility] [address] [place] [address] More Barcenas LPN 03/17/2025 Refill [facility] [place] [facility] [address] [facility] [address] [place] [address] Beverly Plunkett PA Bilateral leg edema 03/17/2025 Abstract [facility] [place] [facility] [address] [facility] [address] [place] [address] Rodrick Butler MD 03/16/2025 8:30 AM EDT Office Visit [facility] [place] [facility] [address] [facility] [address] [place] [address] Beverly Plunkett PA Acute bilateral low back pain without sciatica (Primary Dx); Intermittent diarrhea; Acute cystitis with hematuria 03/16/2025 External Result Encounter [facility] External Department Unsolicited Beverly Plunkett PA 03/16/2025 Travel from Last 3 Months Immunizations Immunization Administration Dates Next Due Influenza, High Dose Seasona l, Preservative Free 05/19/2025 Influenza, High-dose Seasona l, Quadrivalent, Preservative Free [...] How often do you attend chur or sikh services? More than 4 times per year [...] Date Recorded Patient Health Questionnaire-2 Score 0 05/19/2025 [facility]at ional [facility] [...] in a jail (including now)? No 04/23/2023 Housing Stability Vital Sign Answer Raheel e Recorded In the last 12 months, was t here a time when you were not able to pay the mortgage or rent on time? No 06/21/2024 In the past 12 months, how m any times have you moved where you were living? 0 06/21/2024 At any time in the past 12 m [facility], were you homeless or living in a jail (including now)? No 06/21/2024 Comments Unknown Sex and Gender Information Value Date Recorded Sex Assigned at Not on file Legal Sex Female 7:20 PM EDT Gender Identity Not on file Sexual Orientation Not on file Last Filed Vital Signs Vital Sign Reading Time Taken Comments Blood Pressure 124/66 05/19/2025 9:59 AM EDT Pulse 76 05/19/2025 9:59 AM EDT Temperature - - Respiratory Rate 17 10/17/2024 1:10 PM EST Oxygen Saturation 97% 05/19/2025 9:59 AM EDT Inhaled Oxygen Concentration - - Weight 69.4 kg (153 lb) 05/19/2025 9:59 AM EDT Height 170.2 cm (5' 7 ) 05/19/2025 9:59 AM EDT Body Mass Index 23.96 05/19/2025 9:59 AM EDT Plan of Treatment Upcoming Encounters Date Type Department Care Team (Late st Contact Info) Description 06/07/2025 1:00 PM EDT [facility] [place] [facility] [address] [place] [address] [place] [phone] Beverly Plunkett PA [address] [facility] [address] [place] [address] 06/14/2025 10:00 AM EDT Office Visit [facility] [address] [facility] [address] [place] [address] Rodrick Butler MD 112 [facility] 110 [place] [address] Health Maintenance Due Date Last Done Comments Diabetes: Urine Protein Screening 11/25/2023 023 Diabetes: Retinopathy Screening 03/25/2025 4 Diabetes: Hemoglobin A1C 08/18/2025 025, 01/16/2025, 11/14/2024, Additional history exists Pneumococcal Vaccine: 65+ Years Completed 4 Influenza Vaccine Completed 05/19/2025, , 06/16/2023, Additional history exists Procedures Procedure Name Priority Date/Time Associated Diagnosis Comments POCT GLYCATED HEMOGLOBIN, TOTAL Routine 05/19/2025 10:55 AM EDT Type 2 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 gangrene, unspecified whether custodial insulin use (HCC) POCT URINALYSIS DIPSTICK Routine 03/16/2025 8:51 AM EDT Acute bilateral low back pain without sciatica URINARY TRACT INFECTION (HTRX) Routine 03/16/2025 12:01 AM EDT DIABETIC RETINOPATHY SCREENING - OU - BOTH EYES Routine 03/25/2024 from Last 3 Months or Most Recently Relevant to Health Maintenance Results * POCT Glycated hemoglobin, total (05/19/2025 10:55 AM EDT) Hemoglobin A1C 5.8 Blood 05/19/2025 10:5 5 AM EDT Rodrick Butler MD POINT OF CARE TEST ENTER/EDIT ORDERABLES Final Result * (ABNORMAL) POCT urinalysis dipstick manually resulted (03/16/2025 8:51 AM EDT) Pathologist [facility] Glucose, UA Negative Negative - 2000(110) ++++ mg/dL Bilirubin, UA Negative Negative - 4(70) +++ mg/dL Ketones, UA Negative Negative - 160(16) ++++ mg/dL Spec Grav, UA 1.005 1 - 1.03 Blood, UA Positive Negative - 50 Ky/mcL Comment:trace nonhem pH, UA 6.5 5 - 9 Protein, UA Negative Negative - 2000(20) ++++ mg/dL Urobilinogen, UA 0.2 0.2 - 12 mg/dL Leukocytes, UA Moderate Negative - 500+++ Melinda/mcL Nitrite, UA Negative Negative - Positive Urine 03/16/2025 8:51 AM EDT Beverly ZAMUDIO POINT OF CARE TEST ENTER/EDIT ORDERABLES Final Result * (ABNORMAL) URINARY TRACT INFECTION (HTRX) (03/16/2025 12:01 AM EDT) [facility] ACINETOBACTER BAUMANII 0 19.961 - 24.689 ppm 03/17/2025 2:13 PM EDT [facility] ACINETOBACTER BAUMANII Not Detected 19.961 - 24.689 ppm 03/17/2025 2:13 PM EDT [facility] CITROBACTER FREUNDII 0 23.000 - 32.015 ppm 03/17/2025 2:13 PM EDT [facility] CITROBACTER FREUNDII Not Detected 23.000 - 32.015 ppm 03/17/2025 2:13 PM EDT [facility] ENTEROBACTER AEROGENES, CLOACAE 23.532(A) 23.000 - 32.290 ppm 03/17/2025 2:13 PM EDT [facility] ENTEROBACTER AEROGENES, CLOACAE Detected(A) 23.000 - 32.290 ppm 03/17/2025 2:13 PM EDT [facility] ENTEROCOCCUS FAECALIS, FAECIUM 0 26.000 - 33.043 ppm 03/17/2025 2:13 PM EDT [facility] ENTEROCOCCUS FAECALIS, FAECIUM Not Detected 26.000 - 33.043 ppm 03/17/2025 2:13 PM EDT [facility] ESCHERICHIA COLI 24.541(A) 23.000 - 28.500 ppm 03/17/2025 2:13 PM EDT [facility] ESCHERICHIA COLI Detected(A) 23.000 - 28.500 ppm 03/17/2025 2:13 PM EDT [facility] KLEBSIELLA PNEUMONIAE, OXYTOCA 0 23.000 - 31.865 ppm 03/17/2025 2:13 PM EDT [facility] KLEBSIELLA PNEUMONIAE, OXYTOCA Not Detected 23.000 - 31.865 ppm 03/17/2025 2:13 PM EDT [facility] MORGANELLA MORGANII 0 19.961 - 24.689 ppm 03/17/2025 2:13 PM EDT [facility] MORGANELLA MORGANII Not Detected 19.961 - 24.689 ppm 03/17/2025 2:13 PM EDT [facility] PROTEUS MIRABILIS, VULGARIS 0 23.000 - 28.500 ppm 03/17/2025 2:13 PM EDT [facility] PROTEUS MIRABILIS, VULGARIS Not Detected 23.000 - 28.500 ppm 03/17/2025 2:13 PM EDT [facility] PSEUDOMONAS AERUGINOSA 0 23.000 - 31.801 ppm 03/17/2025 2:13 PM EDT [facility] PSEUDOMONAS AERUGINOSA Not Detected 23.000 - 31.801 ppm 03/17/2025 2:13 PM EDT [facility] STAPHYLOCOCCUS AUREUS 0 26.000 - 31.595 ppm 03/17/2025 2:13 PM EDT [facility] STAPHYLOCOCCUS AUREUS Not Detected 26.000 - 31.595 ppm 03/17/2025 2:13 PM EDT [facility] STREPTOCOCCUS AGALACTIAE (GROUP B STREP) 0 26.000 - 32.435 ppm 03/17/2025 2:13 PM EDT [facility] STREPTOCOCCUS AGALACTIAE (GROUP B STREP) Not Detected 26.000 - 32.435 ppm 03/17/2025 2:13 PM EDT [facility] JP ALBICANS, PARAPSILOSIS, TROPICALIS 0 23.000 - 30.347 ppm 03/17/2025 2:13 PM EDT [facility] JP ALBICANS, PARAPSILOSIS, TROPICALIS Not Detected 23.000 - 30.347 ppm 03/17/2025 2:13 PM EDT [facility] JP GLABRATA 0 23.000 - 31.618 ppm 03/17/2025 2:13 PM EDT [facility] JP GLABRATA Not Detected 23.000 - 31.618 ppm 03/17/2025 2:13 PM EDT [facility] JP KRUSEI 0 23.000 - 30.873 ppm 03/17/2025 2:13 PM EDT [facility] JP KRUSEI Not Detected 23.000 - 30.873 ppm 03/17/2025 2:13 PM EDT [facility] SERRATIA MARCESCENS 0 23.000 - 31.581 ppm 03/17/2025 2:13 PM EDT [facility] SERRATIA MARCESCENS Not Detected 23.000 - 31.581 ppm 03/17/2025 2:13 PM EDT [facility] STREPTOCOCCUS PYOGENES (GROUP A STREP) 0 19.961 - 24.689 ppm 03/17/2025 2:13 PM EDT [facility] STREPTOCOCCUS PYOGENES (GROUP A STREP) Not Detected 19.961 - 24.689 ppm 03/17/2025 2:13 PM EDT [facility] STAPHYLOCOCCUS EPIDERMIDIS, HAEMOLYTICUS, LUGDUNENSIS, SAPROPHYTICUS (URINA 0 19.961 - 24.689 ppm 03/17/2025 2:13 PM EDT [facility] STAPHYLOCOCCUS EPIDERMIDIS, HAEMOLYTICUS, LUGDUNENSIS, SAPROPHYTICUS (URINA Not Detected 19.961 - 24.689 ppm 03/17/2025 2:13 PM EDT [facility] STAPHYLOCOCCUS EPIDERMIDIS, HAEMOLYTICUS, LUGDUNENSIS, SAPROPHYTICUS (URINA 0 19.961 - 24.689 ppm 03/17/2025 2:13 PM EDT [facility] STAPHYLOCOCCUS EPIDERMIDIS, HAEMOLYTICUS, LUGDUNENSIS, SAPROPHYTICUS (URINA Not Detected 19.961 - 24.689 ppm 03/17/2025 2:13 PM EDT [facility] TET B, TET M 25.794(A) 23.000 - 27.500 ppm 03/17/2025 2:13 PM EDT [facility] TET B, TET M Detected(A) 23.000 - 27.500 ppm 03/17/2025 2:13 PM EDT [facility] Urine 03/16/2025 12:0 1 AM EDT 03/17/2025 3:04 AM EDT Beverly ZAMUDIO LAB BLOOD ORDERABLES Final Res ult [facility] [address] [id number] * (ABNORMAL) Diabetic Retinopathy Screening - OU - Both Eyes (03/25/2024) RESULTS Retinopathy OU Anatomical Region Laterality Modality Head Other 03/25/2024 Beverly ZAMUDIO OPHTH PHOTOGRAPHY Final Result from Last 3 Months or Most Recently Relevant to Health Maintenance Insurance MEDICARE ADVANTAGE Care Teams Timekeeper Relationship Specialty Start Date End Date Rodrick Butler MD [address] [facility] [address] [place] [address] PCP - General Internal Medicine 01/14/23 Rodrick Butler MD [address] [facility] [address] [place] [address] PCP - Rosetta CLAROS 08/31/24 Ivelisse Baptiste LPN [address] [facility] [address] [place] [address] 11/18/24
--- OUTSIDE RECORDS SUMMARY | 2025-06-06 13:21 | XMS_ITS | Encounter Summary ---
Author Organization [facility] Address [address] [place] [address] Care Team Providers Care Chief Concierge Name Role Phone Rodrick Butler MD Unavailable [phone] Rodrick Butler MD Primary Care Provider [phone] Jessica Rubi RN Unavailable [phone] Rodrick Butler MD Unavailable [phone] Ivelisse Baptiste LPN Unavailable Encounter Details Date Type Department Care Team (Late st Contact Info) Description 04/11/2024 Abstract [facility] [place] [facility] [address] [facility] 110 [place] [address] Rodrick Butler MD 112 [facility] 110 [place] [address] Social History Tobacco Use Types [...] How often do you attend chur or mandaeism services? More than 4 times per year 04/23/2023 Do you belong to any clubs o r organizations such as confucianism groups, unions, fraternal or athletic groups, or [...] Recorded Patient Health Questionnaire-2 Score 0 12/02/2023 [facility] [place] of Occupat ional Health - Occupational Stress [...] place to sleep or slept in a usp (including now)? No 04/23/2023 Comments Unknown Sex [...] Visit [facility] [place] [facility] [address] [facility] [address] [place] [address] Beverly Plunkett PA [address] [facility] [address] [place] [address] 06/14/2025 10:00 AM EDT Office Visit [facility] [place] [facility] [address] [facility] [address] [place] [address] Rodrick Butler MD [address] [facility] [address] [place] [address] documented as of this encounter Visit Diagnoses Not on filedocumented in this encounter Care Teams Chief Concierge Relationship Specialty Start Date End Date Rodrick Butler MD [address] [place] [address] [place] [address] PCP - [employer] 08/31/22 11/04/24 Rodrick Butler MD [address] [facility] [address] [place] [address] PCP - General Internal Medicine 01/14/23 Rodrick Butler MD [address] [facility] [address] [place] [address] PCP - Rosetta CLAROS 08/31/24 Jessica Rubi, RN [address] [place] [address] [facility] 10/07/24 11/18/24 Ivelisse Baptiste LPN [address] [facility] [address] [place] [address] 11/18/24 documented as of this encounter
--- OUTSIDE RECORDS SUMMARY | 2025-06-06 13:21 | XMS_ITS | Encounter Summary ---
Author Organization [facility] Address [address] [place] [address] Care Team Providers Care E Commerce Manager Name Role Phone Rodrick Butler MD Unavailable [phone] Rodrick Butler MD Primary Care Provider [phone] Jessica Rubi RN Unavailable [phone] Rodrick Butler MD Unavailable [phone] Ivelisse Baptiste LPN Unavailable Encounter Details Date Type Department Care Team (Late st Contact Info) Description 03/28/2024 Abstract [facility] [place] [facility] [address] [facility] 110 [place] [address] Rodrick Butler MD 112 [facility] 110 [place] [address] Social History Tobacco Use Types [...] How often do you attend chur or moravian services? More than 4 times per year [...] Recorded Patient Health Questionnaire-2 Score 0 12/02/2023 [facility] [place] of Occupat ional Health - Occupational Stress [...] Visit [facility] [place] [facility] [address] [facility] [address] [place] [address] Beverly Plunkett PA [address] [facility] [address] [place] [address] 06/14/2025 10:00 AM EDT Office Visit [facility] [place] [facility] [address] [facility] [address] [place] [address] Rodrick Butler MD [address] [facility] [address] [place] [address] documented as of this encounter Visit Diagnoses Not on filedocumented in this encounter Care Teams E Commerce Manager Relationship Specialty Start Date End Date Rodrick Butler MD [address] [place] [address] [place] [address] PCP - [employer] 08/31/22 11/04/24 Rodrick Butler MD [address] [facility] [address] [place] [address] PCP - General Internal Medicine 01/14/23 Rodrick Butler MD [address] [facility] [address] [place] [address] PCP - Rosetta CLAROS 08/31/24 Jessica Rubi, RN [address] [place] [address] [facility] 10/07/24 11/18/24 Ivelisse Baptiste LPN [address] [facility] [address] [place] [address] 11/18/24 documented as of this encounter
--- OUTSIDE RECORDS SUMMARY | 2025-06-06 13:21 | XMS_ITS | Encounter Summary ---
Author Organization [facility] Address [address] [place] [address] Care Team Providers Care Counseling Program Leader Name Role Phone Rodrick Butler MD Unavailable [phone] Rodrick Butler MD Primary Care Provider [phone] Jessica Rubi RN Unavailable [phone] Rodrick Butler MD Unavailable [phone] Ivelisse Baptiste LPN Unavailable Encounter Details Date Type Department Care Team (Late st Contact Info) Description 09/07/2023 Abstract [facility] [place] [facility] 112 [facility] 110 [place] [address] Rodrick Butler MD 112 [facility] 110 [place] [address] Social History Tobacco Use Types [...] How often do you attend chur or jain services? More than 4 times per year 04/23/2023 Do you belong to any clubs o r organizations such as judaism groups, unions, fraternal or athletic groups, or [...] heating? Not hard at all 04/23/2023 [facility] of Occupat ional Health - Occupational [...] Visit [facility] [place] [facility] [address] [facility] [address] [place] [address] Beverly Plunkett PA [address] [place] [address] [place] [address] 06/14/2025 10:00 AM EDT Office Visit [facility] [place] Rileynce [address] [place] [address] [place] [address] Rodrick Butler MD [address] [place] [address] [place] [address] documented as of this encounter Visit Diagnoses Not on filedocumented in this encounter Care Teams Counseling Program Leader Relationship Specialty Start Date End Date Rodrick Butler MD [address] [place] [address] [place] [address] PCP - [employer] 08/31/22 11/04/24 Rodrick Butler MD [address] [facility] 110 [place] [address] PCP - General Internal Medicine 01/14/23 Rodrick Butler MD [address] [facility] [address] [place] [address] PCP - [place] HYACINTH 08/31/24 Jessica Rubi, RN [address] [place] [address] [facility] 10/07/24 11/18/24 Ivelisse Baptiste LPN [address] [address] 11/18/24 documented as of this encounter
--- OUTSIDE RECORDS SUMMARY | 2025-06-06 13:21 | XMS_ITS | Encounter Summary ---
Author Organization [facility] Address [address] [place] [address] Care Team Providers Care Money Room Teller Name Role Phone Rodrick Butler MD Unavailable [phone] Rodrick Butler MD Primary Care Provider [phone] Jessica Rubi RN Unavailable [phone] Rodrick Butler MD Unavailable [phone] Ivelisse Baptiste LPN Unavailable Encounter Details Date Type Department Care Team (Late st Contact Info) Description 08/17/2023 Abstract [facility] [place] [facility] 112 [facility] 110 [place] [address] Rodrick Butler MD 112 [facility] 110 [place] [address] Social History Tobacco Use Types [...] any clubs o r organizations such as lutheran groups, unions, fraternal or athletic groups, or [...] WAY [facility] 110 [place] [address] Beverly Plunkett PA [address] [place] [address] 06/14/2025 10:00 AM EDT Office Visit [facility] [place] [facility] [address] [place] [address] Rodrick Butler MD [address] [place] [address] documented as of this encounter Visit Diagnoses Not on filedocumented in this encounter Care Teams Money Room Teller Relationship Specialty Start Date End Date Rodrick Butler MD [address] [place] [address] PCP - Hum[employer] 08/31/22 11/04/24 Rodirck Butler MD [address] [facility] 110 [place] [address] PCP - General Internal Medicine 01/14/23 Rodrick Butler MD [address] [facility] 110 [place] [address] PCP - [place] HYACINTH 08/31/24 Jessica Rubi, RN [address] [place] [address] [facility] 10/07/24 11/18/24 Ivelisse Baptiste LPN [address] [address] 11/18/24 documented as of this encounter
--- OUTSIDE RECORDS SUMMARY | 2025-06-06 13:22 | XMS_ITS | Encounter Summary ---
Author Organization [facility] Address [address] [place] [address] Care Team Providers Care Hand Embroiderer Name Role Phone Rodrick Butler MD Unavailable [phone] Rodrick Butler MD Primary Care Provider [phone] Jessica Rubi RN Unavailable [phone] Rodrick Butler MD Unavailable [phone] Ivelisse Baptiste LPN Unavailable Encounter Details Date Type Department Care Team (Late st Contact Info) Description 06/01/2024 Abstract [facility] [place] [facility] 112 [facility] 110 [place] [address] Rodrick Butler MD 112 [facility] 110 [place], [place] [id number] Social History Tobacco Use Types Packs/Day Years [...] How often do you attend chur or pentecostalism services? More than 4 times [...] Recorded Patient Health Questionnaire-2 Score 0 12/02/2023 [facility] [place] of Occupat ional Health - Occupational Stress [...] Visit [facility] [place] [facility] [address] [facility] 110 [place] [address] Beverly Plunkett PA [address] [facility] 110 [place] [address] 06/14/2025 10:00 AM EDT Office Visit [facility] [place] [facility] [address] [facility] 110 [place] [address] Rodrick Butler MD [address] [facility] 110 [place] [address] documented as of this encounter Visit Diagnoses Not on filedocumented in this encounter Care Teams Hand Embroiderer Relationship Specialty Start Date End Date Rodrick Butler MD [address] [place] [address] PCP - Hum[employer] 08/31/22 11/04/24 Rodrick Butler MD [address] [facility] 110 [place] [address] PCP - General Internal Medicine 01/14/23 Rodrick Butler MD [address] [facility] 110 [place] [address] PCP - Rosetta CLAROS 08/31/24 Jessica Rubi, RN [address] [place] [address] Clinical [facility] 10/07/24 11/18/24 Ivelisse Baptiste LPN [address] [facility] 110 [place] [address] 11/18/24 documented as of this encounter
--- OUTSIDE RECORDS SUMMARY | 2025-06-06 13:22 | XMS_ITS | Encounter Summary ---
Author Organization [facility] Address [address] [place] [address] Care Team Providers Care Infant Childcare Provider Name Role Phone Rodrick Butler MD Primary Care Provider [phone] Encounter Details Date Type Department Care Team (Late st Contact Info) Description 02/17/2025 Orders Only [facility] [address] [place] [address] Cody Patrick MD [address] [place] [address] Social History Tobacco Use Types Packs/Day Years Used Date Smoking Tobacco: Never Smokeless Tobacco: Never Alcohol Use Standard Drinks/Week Comments Not Currently 0 (1 standard drink = 0.6 oz pur e alcohol) [facility] Utilities Answer Date Recorded In the past 12 months has gifted2you, gas, oil, or water [employer] threatened to shut off services in your [...] you be en physically or sexually abused? Unrecognized value 09/07/2023 Transportation Answer Date Recorded In the [...] place to sleep or slept in a penitentiary (including now)? No 09/07/2023 Hunger Vital Sign Answer Date Recorded Within the past 12 months, y ou worried that your food would run out before you got the money to buy more. Never true 09/07/19 24 Ran Out of Food in the Last Year Not on file 09/07/2023 Comments No Sex and Gender Information Value Date Recorded Sex Assigned at Female 09/08/2023 1:50 PM EST Legal Sex Female 12:45 AM EDT Gender Identity Female 09/08/2023 1:50 PM EST Sexual Orientation Heterosexual or Straight 05/2024 1:50 PM EST documented as of this encounter Plan of Treatment Not on file documented as of this encounter Procedures Procedure Name Priority Date/Time Associated Diagnosis Comments CARDIAC DEVICE CHECK - REMOTE - PACEMAKER Routine 02/17/2025 12:00 AM EDT documented in this encounter Results * Cardiac device check - Remote pacemaker (02/17/2025 12:00 AM EDT) Anatomical Region Laterality Modality Other 02/17/2025 Cody Patrick MD CV IMPLANTABLE CARDIAC DEVICE ME OCEDURES Final Result documented in this encounter Visit Diagnoses Not on filedocumented in this encounter Care Teams Infant Childcare Provider Relationship Specialty Start Date End Date Rodrick Butler MD [address] [place] [id number] PCP - General 04/18/22 documented as of this encounter
--- OUTSIDE RECORDS SUMMARY | 2025-06-06 13:22 | XMS_ITS | Encounter Summary ---
Author Organization [facility] Address [address] [place] [address] Care Team Providers Care Planner Name Role Phone Rodrick Butler MD Unavailable [phone] Rodrick Butler MD Primary Care Provider [phone] Jessica Rubi RN Unavailable [phone] Rodrick Butler MD Unavailable [phone] Ivelisse Baptiste LPN Unavailable Encounter Details Date Type Department Care Team (Late st Contact Info) Description 06/01/2024 Abstract [facility] [place] [facility] 112 [facility] 110 [place] [address] Rodrick Butler MD 112 [facility] 110 [place], [place] [address] Social History Tobacco Use Types Packs/Day Years [...] How often do you attend chur or voodoo services? More than 4 times per year 04/23/2023 Do you belong to any clubs o r organizations such as jew groups, unions, fraternal or athletic groups, or [...] Recorded Patient Health Questionnaire-2 Score 0 12/02/2023 [facility] [place] of Occupat ional Health - Occupational Stress [...] Visit [facility] [place] [facility] [address] [facility] 110 [place] [address] Beverly Plunkett PA [address] [facility] 110 [place] [address] 06/14/2025 10:00 AM EDT Office Visit [facility] [place] [facility] [address] [facility] 110 [place] [address] Rodrick Butler MD [address] [facility] 110 [place] [address] documented as of this encounter Visit Diagnoses Not on filedocumented in this encounter Care Teams Planner Relationship Specialty Start Date End Date Rodrick Butler MD [address] [place] [address] PCP - Humana 08/31/22 11/04/24 Rodrick Butler MD [address] [facility] 110 [place] [address] PCP - General Internal Medicine 01/14/23 Rodrick Butler MD [address] [facility] 110 [place] [address] PCP - Rosetta CLAROS 08/31/24 Jessica Rubi, RN [address] [place] [address] Clinical [facility] Family [facility] 10/07/24 11/18/24 Ivelisse Baptiste LPN [address] [facility] 110 [place] [address] 11/18/24 documented as of this encounter
--- OUTSIDE RECORDS SUMMARY | 2025-06-06 13:22 | XMS_ITS | Encounter Summary ---
Author Organization [facility] Address [address] [place] [address] Care Team Providers Care Brazer Crawler Torch Name Role Phone Rodrick Butler MD Unavailable [phone] Rodrick Butler MD Primary Care Provider [phone] Jessica Rubi RN Unavailable [phone] Rodrick Butler MD Unavailable [phone] Ivelisse Baptiste LPN Unavailable Encounter Details Date Type Department Care Team (Late st Contact Info) Description 10/26/[address] [place] [facility] 112 [facility] 110 [place] [address] Rodrick Butler MD 112 [facility] 110 [place] [address] Social History Tobacco Use Types [...] Recorded Patient Health Questionnaire-2 Score 0 12/02/2023 [facility] [place] of Occupat ional Health - Occupational Stress [...] in a longterm (including now)? No 04/23/2023 Housing Stability Vital Sign Answer Raheel e Recorded In the last 12 months, was t here a time when you were not able to pay the mortgage or rent on time? No 06/21/2024 In the past 12 months, how m any times have you moved where you were living? 0 06/21/2024 At any time in the past 12 m [facility], were you homeless or living in a longterm (including now)? No 06/21/2024 Comments Unknown Sex [...] Visit [facility] [place] [facility] [address] [facility] 110 [place] [address] Beverly Plunkett PA [address] [facility] 110 [place] [address] 06/14/2025 10:00 AM EDT Office Visit [facility] [place] [facility] [address] [place] [address] Rodrick Butler MD [address] [place] [address] documented as of this encounter Visit Diagnoses Not on filedocumented in this encounter Care Teams Brazer Crawler Torch Relationship Specialty Start Date End Date Rodrick Butler MD [address] [place] [address] PCP - Humana 08/31/22 11/04/24 Rodrick Butler MD [address] [place] [address] PCP - General Internal Medicine 01/14/23 Rodrick Butler MD [address] [place] [address] PCP - Rosetta CLAROS 08/31/24 Jessica Rubi, RN [address] [place] [address] Clinical [facility] Family [facility] 10/07/24 11/18/24 Ivelisse Baptiste LPN [address] [place] [address] 11/18/24 documented as of this encounter
--- OUTSIDE RECORDS SUMMARY | 2025-06-06 13:22 | XMS_ITS | Encounter Summary ---
Author Organization [employer] Address [id number] [address] [place] [address] Care Team Providers Care Chain Pegger Name Role Phone Rodrick Butler MD Primary Care Provider [phone] Encounter Details Date Type Department Care Team (Late st Contact Info) Description 06/03/2024 Orders Only [employer] [facility] [place] [address] Transcribe, Orders Support User Headache, primary thunderclap; Pain; Cerebrovascular accident (CVA), unspecified mechanism ([facility]) Social History Tobacco Use Types Packs/Day Years [...] (CMS-HCC) documented in this encounter Care Teams Chain Pegger Relationship Specialty Start Date End Date Rodrick Butler MD [address] [address] PCP - General Internal Medicine 05/30/24 documented as of this encounter
--- OUTSIDE RECORDS SUMMARY | 2025-06-06 13:22 | XMS_ITS | Encounter Summary ---
Author Organization [facility] Address [address] [place] [address] Care Team Providers Care Apprentice Embalmer Name Role Phone Rodrick Butler MD Unavailable [phone] Rodrick Butler MD Primary Care Provider [phone] Jessica Rubi RN Unavailable [phone] Rodrick Butler MD Unavailable [phone] Ivelisse Baptiste LPN Unavailable Encounter Details Date Type Department Care Team (Late st Contact Info) Description 06/01/[address] [place] [facility] 112 [facility] 110 [place] [address] Rodrick Butler MD 112 [facility] 110 [place], [place] [address] Social History Tobacco Use Types Packs/Day Years [...] any clubs o r organizations such as druze groups, unions, fraternal or athletic groups, or [...] Recorded Patient Health Questionnaire-2 Score 0 12/02/2023 [facility] [place] of Occupat ional Health - Occupational Stress [...] place to sleep or slept in a group home (including now)? No 04/23/2023 Comments Unknown [...] Visit [facility] [place] [facility] [address] [facility] 110 [place] [address] Beverly Plunkett PA [address] [facility] 110 [place] [address] 06/14/2025 10:00 AM EDT Office Visit [facility] [place] [facility] [address] [facility] 110 [place] [address] Rodrick Butler MD [address] [facility] 110 [place] [address] documented as of this encounter Visit Diagnoses Not on filedocumented in this encounter Care Teams Apprentice Embalmer Relationship Specialty Start Date End Date Rodrick Butler MD [address] [place] [address] PCP - Humana 08/31/22 11/04/24 Rodrick Butler MD [address] [facility] 110 [place] [address] PCP - General Internal Medicine 01/14/23 Rodrick Butler MD [address] [facility] 110 [place] [address] PCP - Rosetta CLAROS 08/31/24 Jessica Rubi, RN [address] [place] [address] Clinical [facility] Family Medicine 10/07/24 11/18/24 Ivelisse Baptiste LPN [address] [facility] 110 [place] [address] 11/18/24 documented as of this encounter
--- OUTSIDE RECORDS SUMMARY | 2025-06-06 13:22 | XMS_ITS | Clinical Summary ---
Author Organization [facility] Address [id number] [address] [place] [address] Care Team Providers Care National Business Director Name Role Phone Rodrick Butler MD Primary Care Provider [phone] Social History Tobacco Use Types Packs/Day Years [...] Risk Screening 2004 COVID-19 Vaccine ( - 2024-2 6 season) 2025 07/19/2021, 10/19/2020, 09/22/2020 Influenza Vaccine 05/01/2025 06/16/2023, , 08/14/2021, Additional history exists Medical Devices Not on file Insurance [facility] MEDICARE Care Teams National Business Director Relationship Specialty Start Date End Date Rodrick Butler MD 112 [facility] 110 [place] [address] PCP - General Internal Medicine 05/30/24
--- OUTSIDE RECORDS SUMMARY | 2025-06-06 13:22 | XMS_ITS | Encounter Summary ---
Author Organization [facility] Address [address] [place] [address] Care Team Providers Care Windmill Technician Name Role Phone Rodrick Butler MD Unavailable [phone] Rodrick Butler MD Primary Care Provider [phone] Jessica Rubi RN Unavailable [phone] Rodrick Butler MD Unavailable [phone] Ivelisse Baptiste LPN Unavailable Encounter Details Date Type Department Care Team (Late st Contact Info) Description 06/01/2024 Abstract [facility] [place] [facility] 112 [facility] 110 [place] [address] Rodrick Butler MD 112 [facility] 110 [place], [place] [address] Social History Tobacco Use Types Packs/Day Years [...] any clubs o r organizations such as restoration groups, unions, fraternal or athletic groups, or [...] Recorded Patient Health Questionnaire-2 Score 0 12/02/2023 [facility] [place] of Occupat ional Health - Occupational Stress [...] WAY [facility] 110 [place] [address] Beverly Plunkett PA [address] [facility] 110 [place] [address] 06/14/2025 10:00 AM EDT Office Visit [facility] [place] [facility] [address] [facility] [address] [place] [address] Rodrick Butler MD [address] [facility] 110 [place] [address] documented as of this encounter Visit Diagnoses Not on filedocumented in this encounter Care Teams Windmill Technician Relationship Specialty Start Date End Date Rodrick Butler MD [address] [place] [address] PCP - Humana 08/31/22 11/04/24 Rodrick Butler MD [address] [facility] 110 [place] [address] PCP - General Internal Medicine 01/14/23 Rodrick Butler MD [address] [facility] 110 [place] [address] PCP - Rosetta CLAROS 08/31/24 Jessica Rubi, RN [address] [place] [address] Clinical Advocate Family Medicine 10/07/24 11/18/24 Ivelisse Baptiste LPN [address] [facility] 110 [place] [address] 11/18/24 documented as of this encounter
--- OUTSIDE RECORDS SUMMARY | 2025-06-06 13:22 | XMS_ITS | Encounter Summary ---
Author Organization [facility] Address [address] [place] [address] Care Team Providers Care Counterintelligence/Humint Specialist Name Role Phone Rodrick Butler MD Primary Care Provider [phone] Rodrick Butler MD Unavailable Ivelisse Baptiste LPN Unavailable Encounter Details Date Type Department Care Team (Late st Contact Info) Description 03/17/2025 Abstract [facility] [place] [facility] 112 [facility] 110 [place] [address] Rodrick Butler MD 112 [facility] 110 [place] [address] Social History Tobacco Use Types Packs/Day Years [...] week 06/21/2024 How often do you attend [facility] or anglican services? More than 4 times per year [...] Date Recorded Patient Health Questionnaire-2 Score 0 03/16/2025 [facility] of Occupat ional Health - Occupational [...] in a prison (including now)? No 04/23/2023 Housing Stability Vital Sign Answer Raheel e Recorded In the last 12 months, was t here a time when you were not able to pay the mortgage or rent on time? No 06/21/2024 In the past 12 months, how m any times have you moved where you were living? 0 06/21/2024 At any time in the past 12 m [facility], were you homeless or living in a prison (including now)? No 06/21/2024 Comments Unknown Sex [...] [place] [facility] [address] [place] [address] Beverly Plunkett PA [address] [place] [place] [address] 06/14/2025 10:00 AM EDT Office Visit [facility] [place] [facility] [address] [facility] 110 [place] [address] Rodrick Butler MD [address] [facility] 110 [place] [address] documented as of this encounter Visit Diagnoses Not on filedocumented in this encounter Care Teams Counterintelligence/Humint Specialist Relationship Specialty Start Date End Date Rodrick Butler MD [address] [facility] 110 [place] [address] PCP - General Internal Medicine 01/14/23 Rodrick Butler MD [address] [facility] 110 [place] [address] PCP - Rosetta CLAROS 08/31/24 Ivelisse Baptiste LPN [address] [facility] [address] [place] [address] 11/18/24 documented as of this encounter
--- OUTSIDE RECORDS SUMMARY | 2025-06-06 13:22 | XMS_ITS ---
Author Organization [facility] Address [address] [place] [address] Care Team Providers Care Mobile Health Vehicle Operator Name Role Phone Rodrick Butler MD Primary Care Provider [phone] Rodrick Butler MD Unavailable Ivelisse Baptiste LPN Unavailable Chronic Care Management (CCM) Status:Enrolled (Active) Start date:01/15/2023 Enrollment date:01/15/2023 Overview 09/30/23, 10:04 AM - Inésthursday, KRISTIN- Patient gives verbal consent to be enrolled in CCM Program and understands there could be a bill for this service. Case Team Name Relationship Phone Ivelisse Baptiste LPN(Responsible Staff) [phone] Continued Care and Services Coordination
--- OUTSIDE RECORDS SUMMARY | 2025-06-06 13:22 | XMS_ITS | Encounter Summary ---
Author Organization [facility] Address [address] [place] [address] Care Team Providers Care Template Layout Worker Name Role Phone Rodrick Butler MD Unavailable [phone] Rodrick Butler MD Primary Care Provider [phone] Jessica Rubi RN Unavailable [phone] Rodrick Butler MD Unavailable [phone] Ivelisse Baptiste LPN Unavailable Encounter Details Date Type Department Care Team (Late st Contact Info) Description 04/20/2024 Abstract [facility] [place] [facility] 112 [facility] 110 [place] [address] Rodrick Butler MD 112 [facility] 110 [place] [address] Social History Tobacco Use Types [...] How often do you attend chur or cheondoism services? More than 4 times per year [...] Recorded Patient Health Questionnaire-2 Score 0 12/02/2023 [facility] [place] of Occupat ional Health - Occupational Stress [...] Visit [facility] [place] [facility] [address] [facility] 110 [place] [address] Beverly Plunkett PA [address] [facility] 110 [place] [address] 06/14/2025 10:00 AM EDT Office Visit [facility] [place] [facility] [address] [facility] [address] [place] [address] Rodrick Butler MD [address] [facility] 110 [place] [address] documented as of this encounter Visit Diagnoses Not on filedocumented in this encounter Care Teams Template Layout Worker Relationship Specialty Start Date End Date Rodrick Butler MD [address] [place] [address] PCP - Hum[employer] 08/31/22 11/04/24 Rodrick Butler MD [address] [facility] 110 [place] [address] PCP - General Internal Medicine 01/14/23 Rodrick Butler MD [address] [facility] 110 [place] [address] PCP - Rosetta CLAROS 08/31/24 Jessica Rubi, RN [address] [place] [address] Clinical [facility] Family [facility] 10/07/24 11/18/24 Ivelisse Baptiste LPN [address] [facility] [address] [place] [address] 11/18/24 documented as of this encounter
--- OUTSIDE RECORDS SUMMARY | 2025-06-06 13:22 | XMS_ITS | Encounter Summary ---
Author Organization [facility] Address [address] [place] [address] Care Team Providers Care Special Assets Officer Name Role Phone Rodrick Butler MD Unavailable [phone] Rodrick Butler MD Primary Care Provider [phone] Jessica Rubi RN Unavailable [phone] Rodrick Butler MD Unavailable [phone] Ivelisse Baptiste LPN Unavailable Encounter Details Date Type Department Care Team (Late st Contact Info) Description 06/01/2024 Abstract [facility] [place] [facility] 112 [facility] 110 [place] [address] Rodrick Butler MD 112 [facility] 110 [place], [place] [address] Social History Tobacco Use Types Packs/Day Years [...] Recorded Patient Health Questionnaire-2 Score 0 12/02/2023 [facility] of Occupat ional Health - Occupational Stress [...] place to sleep or slept in a custodial (including now)? No 04/23/2023 Comments Unknown Sex [...] Visit [facility] [place] Ortiz [address] [facility] 110 [place] [address] Beverly Plunkett PA [address] [facility] 110 [place] [address] 06/14/2025 10:00 AM EDT Office Visit [facility] [place] Ortiz [address] [facility] 110 [place] [address] Rodrick Butler MD [address] [facility] 110 [place] [address] documented as of this encounter Visit Diagnoses Not on filedocumented in this encounter Care Teams Special Assets Officer Relationship Specialty Start Date End Date Rodrick Butler MD [address] [place] [address] [place] [address] PCP - Humana 08/31/22 11/04/24 Rodrick Butler MD [address] [facility] 110 [place] [address] PCP - General Internal Medicine 01/14/23 Rodrick Butler MD [address] [facility] 110 [place] [address] PCP - Rosetta CLAROS 08/31/24 Jessica Rubi, RN [address] [place] [address] [facility] 10/07/24 11/18/24 Ivelisse Baptiste LPN [address] [facility] 110 [place] [address] 11/18/24 documented as of this encounter
--- OUTSIDE RECORDS SUMMARY | 2025-06-06 13:22 | XMS_ITS | Encounter Summary ---
Author Organization [facility] Address [address] [place] [address] Care Team Providers Care Tail Worker Name Role Phone Rodrick Butler MD Unavailable [phone] Rodrick Butler MD Primary Care Provider [phone] Jessica Rubi RN Unavailable [phone] Rodrick Butler MD Unavailable [phone] Ivelisse Baptiste LPN Unavailable Encounter Details Date Type Department Care Team (Late st Contact Info) Description 06/01/2024 Abstract [facility] [place] [facility] 112 [facility] 110 [place] [address] Rodrick Butler MD 112 [facility] 110 [place], [place] [id number] Social History Tobacco Use Types Packs/Day Years [...] How often do you attend chur or restoration services? More than 4 times per year 04/23/2023 Do you belong to any clubs o r organizations such as oriental orthodox groups, unions, fraternal or athletic groups, or [...] Recorded Patient Health Questionnaire-2 Score 0 12/02/2023 [facility] of Occupat ional Health - Occupational Stress [...] [facility] [place] Ortiz [address] [facility] 110 [place] [address] Beverly Plunkett PA [address] [facility] 110 [place] [address] 06/14/2025 10:00 AM EDT Office Visit [facility] [place] Ortiz [address] [facility] 110 [place] [address] Rodrick Butler MD [address] [facility] 110 [place] [address] documented as of this encounter Visit Diagnoses Not on filedocumented in this encounter Care Teams Tail Worker Relationship Specialty Start Date End Date Rodrick Butler MD [address] [place] [address] [place] [address] PCP - Humana 08/31/22 11/04/24 Rodrick Butler MD [address] [facility] 110 [place] [address] PCP - General Internal Medicine 01/14/23 Rodrick Butler MD [address] [facility] 110 [place] [address] PCP - Rosetta CLAROS 08/31/24 Jessica Rubi, RN [address] [place] [address] Clinical [facility] 10/07/24 11/18/24 Ivelisse Baptiste LPN [address] [facility] 110 [place] [address] 11/18/24 documented as of this encounter
--- OUTSIDE RECORDS SUMMARY | 2025-06-06 13:22 | XMS_ITS | Encounter Summary ---
Author Organization [facility] Address [address] [place] [address] Care Team Providers Care Claim Technician Name Role Phone Rodrick Butler MD Unavailable [phone] Rodrick Butler MD Primary Care Provider [phone] Jessica Rubi RN Unavailable [phone] Rodrick Butler MD Unavailable [phone] Ivelisse Baptiste LPN Unavailable Encounter Details Date Type Department Care Team (Late st Contact Info) Description 12/10/2023 Abstract [facility] [place] [facility] [address] [facility] 110 [place] [address] Rodrick Butler MD 112 [facility] 110 [place] [address] Social History Tobacco Use Types [...] any clubs o r organizations such as zoroastrianism groups, unions, fraternal or athletic groups, or [...] Recorded Patient Health Questionnaire-2 Score 0 12/02/2023 [facility] of Occupat ionmi Health - Occupational Stress Questionnaire Answer Date [...] 1:00 PM EDT Office Visit [facility] [place] Rileync [address] [place] [address] [place] [address] Beverly Plunkett PA [address] [place] [address] [place] [address] 06/14/2025 10:00 AM EDT Office Visit [facility] [place] Rileynce [address] [place] [address] [place] [address] Rodrick Butler MD [address] [place] [address] [place] [address] documented as of this encounter Visit Diagnoses Not on filedocumented in this encounter Care Teams Claim Technician Relationship Specialty Start Date End Date Rodrick Butler MD [address] [place] [address] [place] [address] PCP - Humana 08/31/22 11/04/24 Rodrick Butler MD [address] [place] [address] [place] [address] PCP - General Internal Medicine 01/14/23 Rodrick Butler MD [address] [place] [address] [place] [address] PCP - [place] HYACINTH 08/31/24 Jessica Rubi, RN [address] [place] [address] Clinical [facility] Family [facility] 10/07/24 11/18/24 Ivelisse Baptiste LPN [address] [place] [address] 11/18/24 documented as of this encounter
--- OUTSIDE RECORDS SUMMARY | 2025-06-06 13:22 | XMS_ITS | Encounter Summary ---
Author Organization [facility] Address [address] [place] [address] Care Team Providers Care Finished Stock Inspector Name Role Phone Rodrick Butler MD Unavailable [phone] Rodrick Butler MD Primary Care Provider [phone] Jessica Rubi RN Unavailable [phone] Rodrick Butler MD Unavailable [phone] Ivelisse Baptiste LPN Unavailable Encounter Details Date Type Department Care Team (Late st Contact Info) Description 09/30/2023 [facility] [address] [place] 110 [place] [id number] A, Unknown Practice [address] [place] [address] Social History Tobacco Use Types [...] often do you attend chur ch or mandaen services? More than 4 times per year [...] at all 04/23/2023 [facility] - Occupational Stress Questionnaire Answer Date [...] in a long term (including now)? No 04/23/2023 Comments Unknown Sex [...] Visit [facility] [place] Ortiz [address] [facility] 110 [place] [address] Beverly Plunkett PA [address] [facility] 110 [place] [address] 06/14/2025 10:00 AM EDT Office Visit [facility] [place] Ortiz [address] [facility] 110 [place] [address] Rodrick Butler MD [address] [facility] 110 [place] [address] documented as of this encounter Procedures Procedure [...] on filedocumented in this encounter Care Teams Finished Stock Inspector Relationship Specialty Start Date End Date Rodrick Butler MD [address] [facility] 110 [place] [address] PCP - Humana 08/31/22 11/04/24 Rodrick Butler MD [address] [facility] 110 [place] [address] PCP - General Internal Medicine 01/14/23 Rodrick Butler MD [address] [facility] 110 [place] [address] PCP - [place] HYACINTH 08/31/24 Jessica Rubi, RN [address] [place] [address] Clinical [facility] Family [facility] 10/07/24 11/18/24 Ivelisse Baptiste LPN [address] [facility] 110 [place] [address] 11/18/24 documented as of this encounter
--- OUTSIDE RECORDS SUMMARY | 2025-06-06 13:22 | XMS_ITS | Encounter Summary ---
Author Organization [facility] Address [address] [place] [address] Care Team Providers Care Franchise Specialist Name Role Phone Rodrick Butler MD Unavailable [phone] Rodrick Butler MD Primary Care Provider [phone] Jessica Rubi RN Unavailable [phone] Rodrick Butler MD Unavailable [phone] Ivelisse Baptiste LPN Unavailable Encounter Details Date Type Department Care Team (Late st Contact Info) Description 06/01/2024 Abstract [facility] [place] [facility] 112 [facility] 110 [place] [address] Rodrick Butler MD 112 [facility] 110 [place], [place] [address] Social History Tobacco Use Types Packs/Day Years [...] any clubs o r organizations such as nondenominational groups, unions, fraternal or athletic groups, or [...] Recorded Patient Health Questionnaire-2 Score 0 12/02/2023 [facility] [place] of Occupat ional Health - Occupational Stress [...] Visit [facility] [place] Ortiz [address] [facility] 110 [place] [address] Beverly Plunkett PA [address] [facility] 110 [place] [address] 06/14/2025 10:00 AM EDT Office Visit [facility] [place] Ortiz [address] [facility] [address] [place] [address] Rodrick Butler MD [address] [facility] 110 [place] [address] documented as of this encounter Visit Diagnoses Not on filedocumented in this encounter Care Teams Franchise Specialist Relationship Specialty Start Date End Date Rodrick Butler MD [address] [place] [address] [place] [address] PCP - Humana 08/31/22 11/04/24 Rodrick Butler MD [address] [facility] 110 [place] [address] PCP - General Internal Medicine 01/14/23 Rodrick Butler MD [address] [facility] 110 [place] [address] PCP - Rosetta CLAROS 08/31/24 Jessica Rubi, RN [address] [place] [address] Clinical [facility] Family [facility] 10/07/24 11/18/24 Ivelisse Baptiste LPN [address] [facility] 110 [place] [address] 11/18/24 documented as of this encounter
--- OUTSIDE RECORDS SUMMARY | 2025-06-06 13:22 | XMS_ITS | Encounter Summary ---
Author Organization [facility] Address [address] [place] [address] Care Team Providers Care Expense Clerk Name Role Phone Rodrick Butler MD Unavailable [phone] Rodrick Butler MD Primary Care Provider [phone] Jessica Rubi RN Unavailable [phone] Rodrick Butler MD Unavailable [phone] Ivelisse Baptiste LPN Unavailable Encounter Details Date Type Department Care Team (Late st Contact Info) Description 05/06/2024 Abstract [facility] [place] [facility] 112 [facility] 110 [place] [address] Rodrick Butler MD 112 [facility] 110 [place] [address] Social History Tobacco Use Types [...] How often do you attend chur or latter-day services? More than 4 times per year 04/23/2023 Do you belong to any clubs o r organizations such as jainism groups, unions, fraternal or athletic groups, or [...] Recorded Patient Health Questionnaire-2 Score 0 12/02/2023 [facility] [place] of Occupat ional Health - Occupational Stress [...] Visit [facility] [place] Ortiz [address] [facility] 110 [place] [address] Beverly Plunkett PA [address] [facility] 110 [place] [address] 06/14/2025 10:00 AM EDT Office Visit [facility] [place] Ortiz [address] [facility] 110 [place] [address] Rodrick Butler MD [address] [facility] 110 [place] [address] documented as of this encounter Visit Diagnoses Not on filedocumented in this encounter Care Teams Expense Clerk Relationship Specialty Start Date End Date Rodrick Butler MD [address] [place] [address] [place] [address] PCP - Humana 08/31/22 11/04/24 Rodrick Butler MD [address] [facility] 110 [place] [address] PCP - General Internal Medicine 01/14/23 Rodrick Butler MD [address] [facility] 110 [place] [address] PCP - Rosetta CLAROS 08/31/24 Jessica Rubi, RN [address] [place] [address] Clinical [facility] Family [facility] 10/07/24 11/18/24 Ivelisse Baptiste LPN [address] [facility] 110 [place] [address] 11/18/24 documented as of this encounter
--- OUTSIDE RECORDS SUMMARY | 2025-06-06 13:22 | XMS_ITS | Encounter Summary ---
Author Organization [facility] Address [address] [place] [address] Care Team Providers Care Low Voltage Technician Name Role Phone Rodrick Butler MD Unavailable [phone] Rodrick Butler MD Primary Care Provider [phone] Jessica Rubi RN Unavailable [phone] Rodrick Butler MD Unavailable [phone] Ivelisse Baptiste LPN Unavailable Encounter Details Date Type Department Care Team (Late st Contact Info) Description 06/01/2024 Abstract [facility] [place] [facility] 112 [facility] 110 [place] [address] Rodrick Butler MD 112 [facility] 110 [place], [place] [address] Social History Tobacco Use Types Packs/Day Years [...] any clubs o r organizations such as baptism groups, unions, fraternal or athletic groups, or [...] Recorded Patient Health Questionnaire-2 Score 0 12/02/2023 [facility] of Occupat ional Health - Occupational Stress [...] Visit [facility] [place] Ortiz [address] [facility] 110 [place] [address] Beverly Plunkett PA [address] [facility] 110 [place] [address] 06/14/2025 10:00 AM EDT Office Visit [facility] [place] Ortiz [address] [facility] [address] [place] [address] Rodrick Butler MD [address] [facility] 110 [place] [address] documented as of this encounter Visit Diagnoses Not on filedocumented in this encounter Care Teams Low Voltage Technician Relationship Specialty Start Date End Date Rodrick Butler MD [address] [place] [address] [place] [address] PCP - Humana 08/31/22 11/04/24 Rodrick Butler MD [address] [facility] 110 [place] [address] PCP - General Internal Medicine 01/14/23 Rodrick Butler MD [address] [facility] 110 [place] [address] PCP - Rosetta CLAROS 08/31/24 Jessica Rubi, RN [address] [place] [address] Clinical Advocate Family Medicine 10/07/24 11/18/24 Ivelisse Baptiste LPN [address] [facility] 110 [place] [address] 11/18/24 documented as of this encounter
--- OUTSIDE RECORDS SUMMARY | 2025-06-06 13:22 | XMS_ITS | Clinical Summary ---
Author Organization [facility] Address [address] [place], [place] [address] Care Team Providers Care Client Professional Name Role Phone Sunil Zhao MD Primary Care Provider [phone] Allergies Active Allergy Reactions Criticality Noted Date [...] Vaccine (1 - 1-dose 75+ series) 2014 Advance Directive Discussion 08/31/2024 Influenza Vaccine (#1) 2025 Procedures Procedure Name Priority Date/Time Associated Diagnosis Comments COMPREHENSIVE METABOLIC PANEL 01/28/2002 11:40 AM EDT from Last 3 Months or Most Recently Relevant to Health Maintenance Results * (ABNORMAL) COMP METABOLIC PANEL (01/28/2002 11:40 AM EDT) Protein, Total 8.3 6.0 - 8.4 g/dL [facility] Albumin 4.2 3.5 - 5.0 g/dL [facility] Calcium 10.5 8.5 - 10.5 mg/dL [facility] Bilirubin, Total 0.3 0.0 - 1.5 mg/dL [facility] Alkaline Phosphatase 121(A) 20 - 120 U/L [facility] AST 25 7 - 40 U/L [facility] Glucose 150(A) 65 - 110 mg/dL [facility] BUN 13 8 - 25 mg/dL [facility] Creatinine 0.7 0.7 - 1.4 mg/dL [facility] Sodium 139 132 - 148 mmol/L [facility] Potassium 5.1(A) 3.5 - 5.0 mmol/L [facility] Chloride 103 98 - 110 mmol/L [facility] CO2 26 24 - 32 mmol/L [facility] Anion Gap 10 0 - 15 mmol/L [facility] ALT 18 0 - 45 U/L [facility] 01/28/2002 11:4 0 AM EDT us Errol Lu MD LABORATORY Final Resu lt [facility] [address] [place] [address] from Last 3 Months or Most Recently Relevant to Health Maintenance Insurance [employer] PPO Care Teams Client Professional Relationship Specialty Start Date End Date Sunil Zhao MD [address] [place] [address] PCP - General 12/17/01
--- OUTSIDE RECORDS SUMMARY | 2025-06-06 13:22 | XMS_ITS | Encounter Summary ---
Author Organization [facility] Address [address] [place] [address] Care Team Providers Care Detective Sergeant Name Role Phone Rodrick Butler MD Unavailable [phone] Rodrick Butler MD Primary Care Provider [phone] Jessica Rubi RN Unavailable [phone] Rodrick Butler MD Unavailable [phone] Ivelisse Baptiste LPN Unavailable Encounter Details Date Type Department Care Team (Late st Contact Info) Description 05/30/2024 Abstract [facility] [place] [facility] 112 [facility] 110 [place] [address] Rodrick Butler MD [address] [facility] 110 [place] [address] Social History Tobacco Use Types [...] How often do you attend chur or quaker services? More than 4 times per year 04/23/2023 Do you belong to any clubs o r organizations such as mandaeism groups, unions, fraternal or athletic groups, or [...] Recorded Patient Health Questionnaire-2 Score 0 12/02/2023 [facility] [place] of Occupat ional Health - Occupational Stress [...] [address] [facility] 110 [place] [address] Beverly Plunkett PA [address] [facility] 110 [place] [address] 06/14/2025 10:00 AM EDT Office Visit [facility] [place] Ortiz [address] [facility] 110 [place] [address] Rodrick Butler MD [address] [facility] 110 [place] [address] documented as of this encounter Visit Diagnoses Not on filedocumented in this encounter Care Teams Detective Sergeant Relationship Specialty Start Date End Date Rodrick Butler MD [address] [place] [address] [place] [address] PCP - Hum[employer] 08/31/22 11/04/24 Rodrick Butler MD [address] [facility] 110 [place] [address] PCP - General Internal Medicine 01/14/23 Rodrick Butler MD [address] [facility] 110 [place] [address] PCP - Rosetta CLAROS 08/31/24 Jessica Rubi, RN [address] [place] [address] Clinical [facility] Family [facility] 10/07/24 11/18/24 Ivelisse Baptiste LPN [address] [facility] [address] [place] [address] 11/18/24 documented as of this encounter
--- OUTSIDE RECORDS SUMMARY | 2025-06-06 13:22 | XMS_ITS | Encounter Summary ---
Author Organization [facility] Address [address] [place] [address] Care Team Providers Care Knuckler Name Role Phone Rodrick Butler MD Unavailable [phone] Rodrick Butler MD Primary Care Provider [phone] Jessica Rubi RN Unavailable [phone] Rodrick Butler MD Unavailable [phone] Ivelisse Baptiste LPN Unavailable Encounter Details Date Type Department Care Team (Late st Contact Info) Description 05/28/2024 Abstract [facility] [address] [place] [address] Shaikh Ramos MD [address] [place] [address] Social History Tobacco Use Types Packs/Day Years [...] any clubs o r organizations such as alevism groups, unions, fraternal or athletic groups, or [...] Recorded Patient Health Questionnaire-2 Score 0 12/02/2023 [facility] [place] of Occupat ional Health - Occupational Stress [...] 1:00 PM EDT Office Visit [facility] [place] [address] [facility] 110 [place] [address] Beverly Plunkett PA [address] [facility] 110 [place] [address] 06/14/2025 10:00 AM EDT Office Visit [facility] [place] Rileynce [address] [facility] [address] [place] [address] Rodrick Butler MD [address] [facility] 110 [place] [address] documented as of this encounter Visit Diagnoses Not on filedocumented in this encounter Care Teams Knuckler Relationship Specialty Start Date End Date Rodrick Butler MD [address] [facility] 110 [place] [address] PCP - Hum[employer] 08/31/22 11/04/24 Rodrick Butler MD [address] [facility] 110 [place] [address] PCP - General Internal Medicine 01/14/23 Rodrick Butler MD [address] [facility] 110 [place] [address] PCP - Rosetta CLAROS 08/31/24 Jessica Rubi, [place] [address] [place] [address] Clinical [facility] 10/07/24 11/18/24 Ivelisse Baptiste LPN [address] [facility] [address] [place] [address] 11/18/24 documented as of this encounter
--- OUTSIDE RECORDS SUMMARY | 2025-06-06 13:22 | XMS_ITS | Encounter Summary ---
Author Organization [facility] Address [address] [place] [address] Care Team Providers Care Wool Buyer Name Role Phone Rodrick Butler MD Unavailable [phone] Rodrick Butler MD Primary Care Provider [phone] Jessica Rubi RN Unavailable [phone] Rodrick Butler MD Unavailable [phone] Ivelisse Baptiste LPN Unavailable Encounter Details Date Type Department Care Team (Late Contact Info) Description 01/28/2023 Abstract [facility] [place] [facility] [address] [facility] 110 [place] [address] Rodrick Butler MD [address] [facility] 110 [place], [place] [id number] Social History Tobacco Use Types Packs/Day Years [...] Department Care Team (Late Contact Info) Description 06/07/2025 1:00 PM EDT Office Visit [facility] [place] [facility] [address] [place] [address] Beverly Plunkett PA [address] [place] [address] 06/14/2025 10:00 AM EDT [facility] [place] [facility] [address] [place] [address] Rodrick Butler MD [address] [place] [place] [address] documented as of this encounter Visit Diagnoses Not on filedocumented in this encounter Care Teams Wool Buyer Relationship Specialty Start Date End Date Rodrick Butler MD [address] [place] [address] PCP - Humana 08/31/22 11/04/24 Rodrick Butler MD [address] [facility] 110 [place] [address] PCP - General Internal Medicine 01/14/23 Rodrick Butler MD [address] [facility] 110 [place] [address] PCP - Rosetta CLAROS 08/31/24 Jessica Rubi, [place] [address] [place] [address] Clinical [facility] Family [facility] 10/07/24 11/18/24 Ivelisse Baptiste LPN [address] [place] [address] 11/18/24 documented as of this encounter
--- OUTSIDE RECORDS SUMMARY | 2025-06-06 13:22 | XMS_ITS | Clinical Summary ---
Author Organization [facility] Address [address] [facility] [place] [address] Phone Care Team Providers Care Technical Staff Engineer Name Role Phone Unavailable Primary Care Provider Unavailabl e Social History Tobacco Use Types Packs/Day Years Used Date Smoking Tobacco: Never Assessed Comments Unknown Sex and Gender Information Value Date Recorded Sex Assigned at Not on file Legal Sex Female 7:57 PM EST Gender Identity Not on file Sexual Orientation Not on file Plan of Treatment Not on file
--- OUTSIDE RECORDS SUMMARY | 2025-06-06 13:22 | XMS_ITS | Encounter Summary ---
Author Organization [facility] Address [address] [place] [address] Care Team Providers Care Tank House Operator Name Role Phone Rodrick Butler MD Unavailable [phone] Rodrick Butler MD Primary Care Provider [phone] Jessica Rubi RN Unavailable [phone] Rodrick Butler MD Unavailable [phone] Ivelisse Baptiste LPN Unavailable Encounter Details Date Type Department Care Team (Late st Contact Info) Description 06/01/2024 Abstract [facility] [place] [facility] 112 [facility] 110 [place] [address] Rodrick Butler MD 112 [facility] 110 [place], [place] [id number] Social History Tobacco Use Types Packs/Day Years [...] How often do you attend chur or evangelical services? More than 4 times per year [...] Recorded Patient Health Questionnaire-2 Score 0 12/02/2023 [facility] [place] of Occupat ional Health - Occupational Stress [...] Visit [facility] [place] [facility] [address] [facility] 110 [place] [phone] Beverly Plunkett PA [address] [facility] 110 [place] [address] 06/14/2025 10:00 AM EDT Office Visit [facility] [place] [facility] [address] [facility] 110 [place] [address] Rodrick Butler MD [address] [facility] 110 [place] [address] documented as of this encounter Visit Diagnoses Not on filedocumented in this encounter Care Teams Tank House Operator Relationship Specialty Start Date End Date Rodrick Butler MD [address] [place] [place] [address] PCP - Humana 08/31/22 11/04/24 Rodrick Butler MD [address] [facility] 110 [place] [address] PCP - General Internal Medicine 01/14/23 Rodrick Butler MD [address] [facility] 110 [place] [address] PCP - Rosetta CLAROS 08/31/24 Jessica Rubi, RN [address] [place] [address] Clinical Advocate Family Medicine 10/07/24 11/18/24 Ivelisse Baptiste LPN [address] [facility] 110 [place] [address] 11/18/24 documented as of this encounter
--- OUTSIDE RECORDS SUMMARY | 2025-06-06 13:22 | XMS_ITS | Encounter Summary ---
Author Organization [facility] Address [id number] [address] [place] [address] Care Team Providers Care Resident Program Specialist Name Role Phone Rodrick Butler MD Primary Care Provider [phone] Encounter Details Date Type Department Care Team (Late st Contact Info) Description 05/30/2024 Orders Only [facility] [address] [place] [phone] Ref Prov, [place] [address] Social History Tobacco Use Types Packs/Day Years [...] Head, Neuro, Vascular, Head and Neck, Neuro [place] ra N/A Computed Tomography us Not In [...] on filedocumented in this encounter Care Teams Resident Program Specialist Relationship Specialty Start Date End Date Rodrick Butler MD [address] [address] PCP - General Internal Medicine 05/30/24 documented as of this encounter
--- OUTSIDE RECORDS SUMMARY | 2025-06-06 13:22 | XMS_ITS | Encounter Summary ---
Author Organization [facility] Address [address] [place] [address] Care Team Providers Care Pile Fabric Knitter Name Role Phone Rodrick Butler MD Primary Care Provider [phone] Encounter Details Date Type Department Care Team (Late st Contact Info) Description 05/19/2025 Orders Only [facility] [address] [place] [address] Cody Patrick MD [address] [place] [address] Social History Tobacco Use Types Packs/Day Years Used Date Smoking Tobacco: Never Smokeless Tobacco: Never Alcohol Use Standard Drinks/Week Comments Not Currently 0 (1 standard drink = 0.6 oz pur e alcohol) [facility] Utilities Answer Date Recorded In the past 12 months has [email or web address], gas, oil, or water [employer] threatened to shut off services in your [...] in a group home (including now)? No 09/07/2023 Hunger Vital Sign [...] DEVICE CHECK - REMOTE - PACEMAKER Routine 05/19/2025 12:00 AM EDT documented in this encounter Results * Cardiac device check - Remote pacemaker (05/19/2025 12:00 AM EDT) Anatomical Region Laterality Modality Other 05/19/2025 Cody Patrick MD CV IMPLANTABLE CARDIAC DEVICE [place] OCEDURES Final Result documented in this encounter Visit Diagnoses Not on filedocumented in this encounter Care Teams Pile Fabric Knitter Relationship Specialty Start Date End Date Rodrick Butler MD [address] [place] [id number] PCP - General 04/18/22 documented as of this encounter
--- OUTSIDE RECORDS SUMMARY | 2025-06-06 13:22 | XMS_ITS | Encounter Summary ---
Author Organization [facility] Address [address] [place] [address] Care Team Providers Care Chart Clerk Name Role Phone Rodrick Butler MD Unavailable [phone] Rodrick Butler MD Primary Care Provider [phone] Jessica Rubi RN Unavailable [phone] Rodrick Butler MD Unavailable [phone] Ivelisse Baptiste LPN Unavailable Encounter Details Date Type Department Care Team (Late st Contact Info) Description 06/17/2024 Abstract [facility] [place] [facility] 112 [facility] 110 [place] [address] Rodrick Butler MD 112 [facility] 110 [place], [place] [id number] Social History Tobacco Use Types Packs/Day Years [...] How often do you attend chur or baptism services? More than 4 times [...] Recorded Patient Health Questionnaire-2 Score 0 12/02/2023 [facility] [place] of Occupat ional Health - Occupational Stress [...] in a halfway (including now)? No 04/23/2023 Housing Stability Vital Sign Answer Raheel e Recorded In the last 12 months, was t here a time when you were not able to pay the mortgage or rent on time? No 06/21/2024 In the past 12 months, how m any times have you moved where you were living? 0 06/21/2024 At any time in the past 12 m [facility], were you homeless or living in a halfway (including now)? No 06/21/2024 Comments Unknown Sex [...] [place] [facility] [address] [place] [address] Beverly Plunkett PA [address] [place] [place] [address] 06/14/2025 10:00 AM EDT Office Visit [facility] [place] [facility] [address] [place] [address] Rodrick Butler MD [address] [place] [address] documented as of this encounter Visit Diagnoses Not on filedocumented in this encounter Care Teams Chart Clerk Relationship Specialty Start Date End Date Rodrick Butler MD [address] [place] [address] PCP - Humana 08/31/22 11/04/24 Rodrick Butler MD [address] [place] [address] PCP - General Internal Medicine 01/14/23 Rodrick Butler MD [address] [facility] 110 [place] [address] PCP - Rosetta CLAROS 08/31/24 Jessica Rubi, RN [address] [place] [address] Clinical [facility]ocate Family Medicine 10/07/24 11/18/24 Ivelisse Baptiste LPN [address] [place] [address] 11/18/24 documented as of this encounter
--- OUTSIDE RECORDS SUMMARY | 2025-06-06 13:22 | XMS_ITS | Encounter Summary ---
Author Organization [facility] Address [address] [place] [address] Care Team Providers Care Guest Services Manager Name Role Phone Rodrick Butler MD Unavailable [phone] Rodrick Butler MD Primary Care Provider [phone] Jessica Rubi RN Unavailable [phone] Rodrick Butler MD Unavailable [phone] Ivelisse Baptiste LPN Unavailable Encounter Details Date Type Department Care Team (Late st Contact Info) Description 06/23/2023 Abstract [facility] [address] [place] [address] Camilo Falcon MD [address] [place], [place] [address] Social History Tobacco Use Types Packs/Day Years [...] How often do you attend chur or hinduism services? More than 4 times per year 04/23/2023 Do you belong to any clubs o r organizations such as sikh groups, unions, fraternal or athletic groups, or [...] heating? Not hard at all 04/23/2023 [facility] - Occupational Stress Questionnaire Answer Date [...] [address] [place] [address] Beverly Plunkett PA [address] [place] [address] 06/14/2025 10:00 AM EDT Office Visit [facility] [place] [facility] [address] [place] [address] Rodrick Butler MD [address] [place] [address] documented as of this encounter Visit Diagnoses Not on filedocumented in this encounter Care Teams Guest Services Manager Relationship Specialty Start Date End Date Rodrick Butler MD [address] [place] [address] PCP - Humana 08/31/22 11/04/24 Rodrick Butler MD [address] [facility] 110 [place] [address] PCP - General Internal Medicine 01/14/23 Rodrick Butler MD [address] [facility] 110 [place] [address] PCP - [place] 08/31/24 Jessica Rubi, RN [address] [place], [place] [address] Clinical [facility] Family [facility] 10/07/24 11/18/24 Ivelisse Baptiste LPN [address] [place] [address] [place] [address] 11/18/24 documented as of this encounter
--- OUTSIDE RECORDS SUMMARY | 2025-06-06 13:22 | XMS_ITS | Encounter Summary ---
Author Organization [facility] Address [address] [place] [address] Care Team Providers Care Control System Manager Name Role Phone Rodrick Butler MD Unavailable [phone] Rodrick Butler MD Primary Care Provider [phone] Jessica Rubi RN Unavailable [phone] Rodrick Butler MD Unavailable [phone] Ivelisse Baptiste LPN Unavailable Encounter Details Date Type Department Care Team (Late st Contact Info) Description 09/08/2023 Abstract [facility] [place] [facility] 112 [facility] 110 [place] [address] Rodrick Butler MD 112 [facility] 110 [place] [address] Social History Tobacco Use Types [...] How often do you attend chur or mu-ism services? More than 4 times per year 04/23/2023 Do you belong to any clubs o r organizations such as yazdanism groups, unions, fraternal or athletic groups, or [...] and heating? Not hard at all 04/23/2023 [facility] of Occupat ional Health - Occupational [...] Visit [facility] [place] [facility] [address] [facility] 110 [place] [address] Beverly Plunkett PA [address] [place] [address] 06/14/2025 10:00 AM EDT Office Visit [facility] [place] [facility] [address] [place] [address] Rodrick Butler MD [address] [place] [address] documented as of this encounter Visit Diagnoses Not on filedocumented in this encounter Care Teams Control System Manager Relationship Specialty Start Date End Date Rodrick Butler MD [address] [place] [address] PCP - Humana 08/31/22 11/04/24 Rodrick Butler MD [address] [facility] 110 [place] [address] PCP - General Internal Medicine 01/14/23 Rodrick Butler MD [address] [facility] 110 [place] [address] PCP - [facility] 08/31/24 Jessica Rubi, RN [address] [place] [address] Clinical [facility] Family [facility] 10/07/24 11/18/24 Ivelisse Baptiste LPN [address] [address] 11/18/24 documented as of this encounter
--- OUTSIDE RECORDS SUMMARY | 2025-06-06 13:22 | XMS_ITS | Encounter Summary ---
Author Organization [facility] Address [address] [place] [address] Care Team Providers Care Glass Loading Equipment Tender Name Role Phone Rodrick Butler MD Unavailable [phone] Rodrick Butler MD Primary Care Provider [phone] Jessica Rubi RN Unavailable [phone] Rodrick Butler MD Unavailable [phone] Ivelisse Baptiste LPN Unavailable Encounter Details Date Type Department Care Team (Late st Contact Info) Description 04/27/2024 Abstract [facility] [place] [facility] 112 [facility] 110 [place] [address] Rodrick Butler MD 112 [facility] 110 [place] [address] Social History Tobacco Use Types [...] Recorded Patient Health Questionnaire-2 Score 0 12/02/2023 [facility] [place] of Occupat ional Health - Occupational Stress [...] Visit [facility] [place] [facility] [address] [facility] [address] [place] [address] Beverly Plunkett PA [address] [facility] 110 [place] [address] 06/14/2025 10:00 AM EDT Office Visit [facility] [place] [facility] [address] [facility] [address] [place] [address] Rodrick Butler MD [address] [facility] [address] [place] [address] documented as of this encounter Visit Diagnoses Not on filedocumented in this encounter Care Teams Glass Loading Equipment Tender Relationship Specialty Start Date End Date Rodrick Butler MD [address] [place] [address] PCP - Humana 08/31/22 11/04/24 Rodrick Butler MD [address] [facility] [address] [place] [address] PCP - General Internal Medicine 01/14/23 Rodrick Butler MD [address] [facility] [address] [place] [address] PCP - Rosetta CLAROS 08/31/24 Jessica Rubi, RN [address] [place] [address] Clinical [facility] Family [facility] 10/07/24 11/18/24 Ivelisse Baptiste LPN [address] [facility] [address] [place] [address] 11/18/24 documented as of this encounter
--- OUTSIDE RECORDS SUMMARY | 2025-06-06 13:22 | XMS_ITS | Encounter Summary ---
Author Organization [facility] Address [address] [place] [address] Care Team Providers Care Salon Shampoo Assistant Name Role Phone Rodrick Butler MD Unavailable [phone] Rodrick Butler MD Primary Care Provider [phone] Jessica Rubi RN Unavailable [phone] Rodrick Butler MD Unavailable [phone] Ivelisse Baptiste LPN Unavailable Encounter Details Date Type Department Care Team (Late Contact Info) Description 01/20/2023 Abstract [facility] [address] [place] [address] Leslie Dixon LPN 112 [place] [address] Social History Tobacco Use Types Packs/Day Years [...] EDT Office Visit [facility] [place] [facility] 112 [facility] 110 [place] [address] Beverly Plunkett PA 112 [facility] 110 [place], [place] [address] 06/14/2025 10:00 AM EDT Office Visit [facility] [place] [facility] [address] [facility] [address] [place] [address] Rodrick Butler MD [address] [place] [address] documented as of this encounter Visit Diagnoses Not on filedocumented in this encounter Care Teams Salon Shampoo Assistant Relationship Specialty Start Date End Date Rodrick Butler MD [address] [facility] 110 [place] [address] PCP - Humana 08/31/22 11/04/24 Rodrick Butler MD [address] [facility] 110 [place] [address] PCP - General Internal Medicine 01/14/23 Rodrick Butler MD [address] [facility] [address] [place] [address] PCP - Rosetta CLAROS 08/31/24 Jessica Rubi, [place] [address] [place] [address] [facility] 10/07/24 11/18/24 Ivelisse Baptiste LPN [address] [facility] [address] [place] [address] 11/18/24 documented as of this encounter
--- OUTSIDE RECORDS SUMMARY | 2025-06-06 13:22 | XMS_ITS | Encounter Summary ---
Author Organization [facility] Address [address] [place] [address] [address] Care Team Providers Care Sanitation Officer Name Role Phone Rodrick Butler MD Primary Care Provider [phone] Rodrick Butler MD Unavailable [phone] Ivelisse Baptiste LPN Unavailable Encounter Details Date Type Department Care Team (Late st Contact Info) Description 05/29/2025 Patient Outreach [facility] [address] [facility] [place] [address] Ivelisse Baptiste LPN [address] [facility] 110 [place], [place] [phone] Social History Tobacco Use Types Packs/Day Years [...] week 06/21/2024 How often do you attend [facility] or sabianist services? More than 4 times per year 06/21/2024 Do you belong to any clubs o r organizations such as christian groups, unions, fraternal or athletic groups, or [...] Recorded Patient Health Questionnaire-2 Score 0 05/19/2025 [facility] of Occupat ional Health [...] place to sleep or slept in a fci (including now)? No 04/23/2023 Housing Stability Vital Sign Answer Raheel e Recorded In the last 12 months, was t here a time when you were not able to pay the mortgage or rent on time? No 06/21/2024 In the past 12 months, how m any times have you moved where you were living? 0 06/21/2024 At any time in the past 12 m [facility], were you homeless or living in a fci (including now)? No 06/21/2024 Comments Unknown Sex and Gender Information Value Date Recorded Sex Assigned at Not on file Legal Sex Female 7:20 PM EDT Gender Identity Not on file Sexual Orientation Not on file documented as of this encounter Progress Notes * Ivelisse Baptiste, KRISTIN - 05/29/2025 8:27 AM EDT Spoke with pt for outreach. Pt sates she is doing good today. She does shares that she still has diarrhea some days and still does not know why. I remind pt of upcoming appt 06/14 and let her know ifit gets worse or more often she can move up appt if needed. Pt states it's not all the time just some days and it has been going on so she does not feel needs appt moved. Pt denies any further questions or concerns. Encouraged to call if any arise. documented in this encounter Plan of Treatment Upcoming Encounters Date Type Department Care Team (Late st Contact Info) Description 06/07/2025 1:00 PM EDT Office Visit [facility] [place] [facility] [address] [place] [address] Beverly Plunkett PA [address] [place] [address] 06/14/2025 10:00 AM EDT Office Visit [facility] [place] [facility] [address] [place] [address] Rodrick Butler MD [address] [place] [address] documented as of this encounter Visit Diagnoses Diagnosis Type 2 diabetes mellitus without complication, with long-term current use of insulin (HCC)- Primary Chronic systolic heart failure (HCC) Chronic systolic heart failure documented in this encounter Care Teams Sanitation Officer Relationship Specialty Start Date End Date Rodrick Butler MD [address] [place] [address] PCP - General Internal Medicine 01/14/23 Rodrick Butler MD [address] [place] [address] PCP - Rosetta CLAROS 08/31/24 Ivelisse Baptiste LPN [address] [place] [address] 11/18/24 documented as of this encounter
--- OUTSIDE RECORDS SUMMARY | 2025-06-06 13:22 | XMS_ITS | Encounter Summary ---
Author Organization [facility] Address [address] [place] [address] Care Team Providers Care Technical Solutions Director Name Role Phone Naveen Zhao MD Primary Care Provider [phone] Source Comments In the event this information is protected by the Federal Confidentiality of Alcohol and Drug AbusePatient Records regulations: The Federal rules restrict any use of the information to criminally investigate or prosecute any alcohol or drug abuse patient.[facility] Encounter Details Date Type Department Care Team [...] on filedocumented in this encounter Care Teams Technical Solutions Director Relationship Specialty Start Date End Date Naveen Zhao MD [address] [place] [address] PCP - General 12/17/01 documented as of this encounter
--- OUTSIDE RECORDS SUMMARY | 2025-06-06 13:22 | XMS_ITS | Encounter Summary ---
Author Organization [facility] Address [address] [place] [address] Care Team Providers Care Supplier Specialist Name Role Phone Rodrick Butler MD Unavailable [phone] Rodrick Butler MD Primary Care Provider [phone] Jessica Rubi RN Unavailable [phone] Rodrick Butler MD Unavailable [phone] Ivelisse Baptiste LPN Unavailable Encounter Details Date Type Department Care Team (Late st Contact Info) Description 09/30/2023 Abstract [facility] [place] [facility] 110 [place] [id number] Rodrick Butler MD 112 [facility] 110 [place] [address] Social History Tobacco Use Types [...] How often do you attend chur or taoism services? More than 4 times per year 04/23/2023 Do you belong to any clubs o r organizations such as buddhism groups, unions, fraternal or athletic groups, or [...] heating? Not hard at all 04/23/2023 [facility] - Occupational [...] [facility] [address] [place] [address] Beverly Plunkett PA [address] [place] [place] [address] 06/14/2025 10:00 AM EDT Office Visit [facility] [place] [facility] [address] [place] [address] [place] [address] Rodrick Butler MD [address] [place] [place] [address] documented as of this encounter Visit Diagnoses Not on filedocumented in this encounter Care Teams Supplier Specialist Relationship Specialty Start Date End Date Rodrick Butler MD [address] [place] [address] PCP - [employer] 08/31/22 11/04/24 Rodrick Butler MD [address] [facility] [address] [place] [address] PCP - General Internal Medicine 01/14/23 Rodrick Butler MD [address] [facility] [address] [place] [address] PCP - Macopin HYACINTH 08/31/24 Jessica Rubi, RN [address] [place] [address] Clinical [facility] 10/07/24 11/18/24 Ivelisse Baptiste LPN [address] [address] 11/18/24 documented as of this encounter
--- OUTSIDE RECORDS SUMMARY | 2025-06-06 13:23 | XMS_ITS | Encounter Summary ---
Author Organization [facility] Address [address] [place] [address] Care Team Providers Care Certified Detention Deputy Name Role Phone Rodrick Butler MD Primary Care Provider [phone] Rodrick Butler MD Unavailable [phone] Ivelisse Baptiste LPN Unavailable Encounter Details Date Type Department Care Team (Late st Contact Info) Description 05/23/2025 Abstract [facility] [place] [facility] [address] [facility] 110 [place] [address] Rodrick Butler MD 112 [facility] 110 [place] [address] Social History Tobacco Use Types Packs/Day Years [...] week 06/21/2024 How often do you attend [facility] or sikhism services? More than 4 times per year [...] Recorded Patient Health Questionnaire-2 Score 0 05/19/2025 [facility] - Occupational [...] a care home (including now)? No 04/23/2023 Housing Stability Vital Sign Answer Raheel e Recorded In the last 12 months, was t here a time when you were not able to pay the mortgage or rent on time? No 06/21/2024 In the past 12 months, how m any times have you moved where you were living? 0 06/21/2024 At any time in the past 12 m [facility], were you homeless or living in a care home (including now)? No 06/21/2024 Comments Unknown Sex [...] [facility] [address] [place] [address] Beverly Plunkett PA [address] [place] [place] [address] 06/14/2025 10:00 AM EDT Office Visit [facility] [place] [facility] [address] [facility] [address] [place] [address] Rodrick Butler MD [address] [facility] [address] [place] [address] documented as of this encounter Visit Diagnoses Not on filedocumented in this encounter Care Teams Certified Detention Deputy Relationship Specialty Start Date End Date Rodrick Butler MD [address] [facility] [address] [place] [address] PCP - General Internal Medicine 01/14/23 Rodrick Butler MD [address] [facility] [address] [place] [address] PCP - Rosetta CLAROS 08/31/24 Ivelisse Baptiste LPN [address] [facility] [address] [place] [address] 11/18/24 documented as of this encounter
--- NOTE | 2025-06-06 13:35 | CT_ITS ---
The [address] [address] Patient Name: MERRILL ARAGON MRN: [id number] date: 1940 Sex: F Assigned Patient Location: ER Current Patient Location: ER Accession/Order Number: [id number] Exam Date: 06/06/2025 14:30 Report Date: 06/06/2025 15:02 At the request of: LUIS ANGEL ZARATE DO Procedure: CT abdomen pelvis w con CT ABDOMEN AND PELVIS WITH INTRAVENOUS CONTRAST: CLINICAL HISTORY: LLQ pain, diarrhea, r/o diverticulitis COMPARISON: CT abdomen 08/18/2022 TECHNIQUE: Spiral images were obtained through the abdomen and pelvis following the administration of intravenous contrast. This CT exam was performed using one or more following dose reduction techniques: Automated exposure control, adjustment of the mA and/or kV according to patient size, or use of iterative reconstruction technique. FINDINGS: Lung Bases: [Bibasilar scarring. A few tree-in-bud nodules are seen.] Organs:Subcentimeter low attenuating lesions are seen within the liver too small for characterization. Partially calcified cyst seen involving the spleen. Pancreas and gallbladder and right adrenal gland appear unremarkable. Previously identified left adrenal adenoma is noted. No enhancing renal mass or hydronephrosis. Subcentimeter low attenuating lesions are seen within the left kidney too small for characterization. Aorta appears normal in caliber.[ GI: Tiny hiatal hernia. Distal stomach is grossly unremarkable. Small bowel appears nondilated. Colonic diverticulosis.[ Pelvis:[Right lateral wall urinary bladder diverticulum. Uterus has been removed.] Peritoneum/Retroperitoneum:No free air or free fluid or lymphadenopathy.[ Abd wall/Bones:No acute findings. Osseous structures demonstrate degenerative change.[ CT/CT abdomen pelvis w con IMPRESSION: No acute process. Impression dictated by: Aiden Villareal Jr., D.O. 06/06/2025 3:02 PM Dictation [facility] Electronically authenticated by: [id number] Y Date: 06/06/2025 15:02
--- NOTE | 2025-06-06 13:36 | ECG_ITS ---
The [facility] Test Date: 2025-06-06 Pat Name: MERRILL ARAGON Department: Room: - Gender: Female Net Making Supervisor: : 1940 Requested By: MARIAM KIRBY Order Number: [id number] Reading MD: GILMAR PARKS M.D. Measurements Intervals [place] Rate: 42 P: 229 MO: 326 QRS: 130 QRSD: 124 T: 86 QT: 422 QTc: 366 Interpretive Statements [address]671 Electronic atrial pacemaker 2450 Right bundle branch block 3234 Anteroseptal myocardial infarction, age undetermined 7100 Abnormal right axis deviation 9150 abnormal ECG Compared to ECG 05/31/2024 04:51:45 Right-axis deviation now present Sinus rhythm no longer present Left anterior fascicular block no longer present Possible ischemia no longer present Electronically Signed On 06-06-2025 18:14:18 EDT by GILMAR PARKS M.D.
[2025-06-06 13:49] VITALS: O2SAT 97
[2025-06-06 13:52] LABS: Hematocrit 34.5 % (36.0-48.0); Hemoglobin 11.8 g/dL (12.0-16.0); Immature Granulocytes Abs Auto 0.02 10^3/uL (0.00-0.03); Immature Granulocytes Pct Auto 0.3 % (0.0-0.5); Lymphocytes Absolute Auto 2.5 10^3/uL (1.2-3.8); Mean Corpuscular HGB Conc 34.2 g/dL (29.9-35.2); Mean Corpuscular Hemoglobin 28.2 pg (26.7-34.0); Mean Corpuscular Volume 82.5 fL (81.0-99.0); Platelet Count 206 10^3/uL (150-450); Red Blood Count 4.18 10^6/uL (4.20-5.40); White Blood Count 7.1 10^3/uL (4.0-11.0)
[2025-06-06 14:11] LABS: Alanine Aminotransferase 21 U/L (14-59); Albumin Globulin Ratio 1.0; Albumin Level 3.8 g/dL (3.4-5.0); Alkaline Phosphatase 79 U/L (46-116); Anion Gap 15.5; Aspartate Amino Transferase 18 U/L (15-37); Blood Urea Nitrogen 33.0 mg/dL (7.0-18.0); Calcium 9.6 mg/dL (8.5-10.1); Carbon Dioxide 23.5 mmol/L (21.0-32.0); Chloride 94 mmol/L (98-107); Estimated GFR (African America 51 (>=60 mL/min/1.73m^2); Estimated GFR (Non-African Ame 42 (>=60 mL/min/1.73m^2); Globulin 3.7 g/dL; Glucose 168 mg/dL (74-106); Potassium 5.0 mmol/L (3.5-5.1); Sodium 128 mmol/L (136-145); Total Protein 7.5 g/dL (6.4-8.2)
--- NOTE | 2025-06-06 14:25 | ED.GENADUL1 ---
HPI HPI - General Adult General Chief complaint: Abdominal Pain Stated complaint: ABDOMINAL PAIN Time Seen by Provider: 06/06/25 13:18 Source: patient Mode of arrival: walk-in Limitations: no limitations History of Present Illness HPI narrative: Patient is an 85-year-old female presenting to the emergency department for evaluation of abdominal pain. Patient states that end of the night last night she started experiencing left lower quadrant abdominal pain. States she has a history of diverticulitis. She states she felt nauseous and had numerous episodes of diarrhea. She states the diarrhea was green, not bloody, black, or tarry. She states that her symptoms have almost completely resolved. Additionally, she states when she was having the diarrhea, she felt somewhat dizzy and lightheaded. She did not syncopized. She had no palpitations, chest pain, shortness of breath. She has a history of prior [place] and pacemaker placement. Related Data Home Medications ?Medication ?Instructions ?Recorded ?Confirmed atorvastatin 80 mg tablet 80 mg PO .qhs 09/04/23 06/06/25 carvedilol 12.5 mg tablet 12.5 mg PO Q12H 09/04/23 06/06/25 cyproheptadine 4 mg tablet 2 mg PO .qhs 09/04/23 06/06/25 latanoprost 0.005 % eye drops 1 drp ophthalmic (eye) .qhs 05/28/24 06/06/25 carvedilol 6.25 mg tablet 6.25 mg PO BID 06/06/25 06/06/25 dorzolamide 22.3 mg-timolol 6.8 1 drp ophthalmic (eye) BID 06/06/25 06/06/25 mg/mL eye drops furosemide 20 mg tablet 20 mg PO DAILY PRN edema 06/06/25 06/06/25 insulin glargine 100 unit/mL (3 30 unit subcut DAILY 06/06/25 06/06/25 mL) subcutaneous pen (Lantus Solostar U-100 Insulin) metformin 500 mg tablet,extended 1,000 mg PO DAILY 06/06/25 06/06/25 release 24 hr spironolactone 50 mg tablet 25 mg PO DAILY 06/06/25 06/06/25 trazodone 50 mg tablet 50 mg PO .qhs PRN sleep 06/06/25 06/06/25 Previous Rx's ?Medication ?Instructions ?Recorded aspirin 81 mg chewable tablet 81 mg PO DAILY #30 tabs 05/30/24 Allergies Allergy/AdvReac Type Severity Reaction Status Date / Time iodine AdvReac Intermediate Rash Verified 06/06/25 13:12 Sulfa (Sulfonamide AdvReac Intermediate Rash Verified 06/06/25 13:12 Antibiotics) empagliflozin (From AdvReac uti Verified 06/06/25 13:12 Jardiance) Opioid HPI Opioid Management Most Recent Opioid Data: Last Pain Scale 0 Today, 13:26 Last ORT Total Score 0 05/28/24, 14:15 Last ORT Risk Category Low Risk 05/28/24, 14:15 Review of Systems ROS Status of ROS 10 or more systems reviewed and unremarkable except as noted in history and below [facility] Medical History (Updated 06/06/25 @ 17:10 by John Shin DO) Suspected cerebrovascular accident (CVA) ?R09.89 - Other specified symptoms and signs involving the circulatory and respiratory systems (ICD-10) Hypertensive emergency ?I16.1 - Hypertensive emergency (ICD-10) Type 2 diabetes mellitus ?E11.9 - Type 2 diabetes mellitus without complications (ICD-10) HLD (hyperlipidemia) ?E78.5 - Hyperlipidemia, unspecified (ICD-10) CAD (coronary artery disease) ?I25.10 - Atherosclerotic heart disease of [place] coronary artery without angina pectoris (ICD-10) Pacemaker ?Z95.0 - Presence of cardiac pacemaker (ICD-10) Dehydration ?E86.0 - Dehydration (ICD-10) Metabolic acidosis ?E87.20 - Acidosis, unspecified (ICD-10) Hyponatremia ?E87.1 - Hypo-osmolality and hyponatremia (ICD-10) Bradycardia ?R00.1 - Bradycardia, unspecified (ICD-10) URI (upper respiratory infection) ?J06.9 - Acute upper respiratory infection, unspecified (ICD-10) Diabetes ?E11.9 - Type 2 diabetes mellitus without complications (ICD-10) Heart attack ?I21.9 - Acute myocardial infarction, unspecified (ICD-10) Uterine cancer ?C55 - Malignant neoplasm of uterus, part unspecified (ICD-10) Surgical History (Updated 06/06/25 @ 13:29 by Danilo Del Valle) Hx of appendectomy ?Z90.49 - Acquired absence of other specified parts of digestive tract (ICD-10) Hx of total hysterectomy ?Z90.710 - Acquired absence of both cervix and uterus (ICD-10) History of cataract surgery ?Z98.49 - Cataract extraction status, unspecified eye (ICD-10) History of heart artery stent ?Z95.5 - Presence of coronary angioplasty implant and graft (ICD-10) Social History (Updated 05/28/24 @ 14:29 by Charlene Cunningham LPN) Within the past year, how often did you have a drink containing alcohol: never Within the past year, how many standard drinks containing alcohol did you have on a typical day: 1 or 2 Within the past year, how often did you have six or more drinks on one occasion: never Total score: 0 Score interpretation: A score less than 3 is consistent with normal alcohol consumption. Smoking status: Never smoker Second hand tobacco smoke exposure: No Non-prescribed substance use: denies use Known occupational exposures/hazards: No Highest level of school completed/degree received: high school graduate Do you want help with school or training: No In a typical week, how many times do you talk on the telephone with family, friends, or neighbors: 3 or more times per week How often do you get together with friends or relatives: 3 or more times per week How often do you attend christian or methodist services: never Do you belong to any clubs or organizations such as christian groups unions, fraternal or athletic groups, or school groups: no Little interest or pleasure in doing things: not at all Feeling down, depressed, or hopeless: not at all Feel stressed/tense/nervous/anxious/difficulty sleeping: not at all Due to disability, difficulty making decisions: No Exam Narrative Exam Narrative: CONSTITUTIONAL: Well-appearing, answering questions and following commands appropriately SKIN: Was warm and dry. EYES: Sclerae white. EARS, NOSE, THROAT: Moist oral mucosa. RESPIRATORY: Clear to auscultation bilaterally, no wheezes, crackles, or stridor, no use of accessory muscles CARDIOVASCULAR: Bradycardic rate and regular rhythm. There is no S3, S4, murmur, rub. GASTROINTESTINAL: There is tenderness to palpation in the left lower quadrant of the abdomen. No rebound tenderness. No guarding. Nondistended. MUSCULOSKELETAL: No peripheral edema. NEUROLOGIC: Patient is awake and alert. Facies were symmetrical. Constitutional Vital Signs, click to edit/add: Last Vital Signs Temp 98.2 F 06/06/25 13:13 Pulse 62 06/06/25 16:02 Resp 16 06/06/25 13:13 BP 179/71 H 06/06/25 16:02 Pulse Ox 97 06/06/25 13:49 O2 Del Method Room Air 06/06/25 13:49 Course Vital Signs Vital signs: Vital Signs Temperature 98.2 F 06/06/25 13:13 Pulse Rate 60 06/06/25 13:13 Respiratory Rate 16 06/06/25 13:13 Blood Pressure 179/68 H 06/06/25 13:13 Pulse Oximetry 99 06/06/25 13:13 Temperature 98.2 F 06/06/25 13:13 Pulse Rate 62 06/06/25 16:02 Respiratory Rate 16 06/06/25 13:13 Blood Pressure 179/71 H 06/06/25 16:02 Pulse Oximetry 97 06/06/25 13:49 Oxygen Delivery Method Room Air 06/06/25 13:49 Medical Decision Making MDM Narrative Medical decision making narrative: Patient is an 85-year-old female presenting to the emergency department for evaluation of left lower quadrant abdominal pain, diarrhea, and lightheadedness that began earlier last night. Her vital signs on arrival were significant for hypertension and mild bradycardia, otherwise were within normal limits. She is afebrile and hemodynamically stable. Examination as noted above, however was notable for tenderness to palpation in the left lower quadrant of abdomen without peritoneal signs. My clinical impression is that the patient symptoms are secondary to diverticulitis. CT abdomen/pelvis was ordered to rule out complication such as abscess, microperforations, or other intra-abdominal pathologies. Given the patient's cardiac history, age, and now resolved episode of dizziness, I did obtain a cardiac workup. IV was established and laboratory studies were obtained. 12 Lead EKG: Electronic atrial pacemaker and a bradycardic rate of 42. Prolonged MN interval to 326. RSR prime configuration with prolonged QRS consistent with RBBB. Final impression: Atrial paced rhythm at a bradycardic rate with no evidence of acute myocardial ischemia. Laboratory studies were overall unremarkable. No significant electrolyte or metabolic derangement other than mild hyponatremia/hypochloremia likely from diarrhea - this was treated with 500cc bolus normal saline. When corrected for hyperglycemia, sodium was 130. No evidence of acute kidney injury. No significant anemia, leukocytosis, or thrombocytopenia. No transaminitis or hyperbilirubinemia. Troponin nonelevated. Urinalysis was unremarkable and negative for acute infection. CT abdomen/pelvis independently reviewed and interpreted by myself and radiology demonstrated no acute abnormalities or evidence of diverticulitis. I do believe the patient is stable for discharge. Patient's presentation is most likely consistent with diarrhea and mild dehydration. They were instructed to follow up with their PCP for further care and outpatient GI workup. Return precautions were given including any new or worsening symptoms. Patient understands and agrees to the plan. FINAL IMPRESSION: #Acute diarrhea #Acute mild hyponatremia secondary to dehydration DISPOSITION: Discharged home CONDITION: Fair Medical Records Medical records reviewed: Yes I reviewed the patient's medical records Lab Data Lab results reviewed: Yes I reviewed the patient's lab results Labs: Lab Results 06/06/25 06/06/25 Range/Units 13:42 15:25 WBC 7.1 (4.0-11.0) 10^3/uL RBC 4.18 L (4.20-5.40) 10^6/uL Hgb 11.8 L (12.0-16.0) g/dL Hct 34.5 L (36.0-48.0) % MCV 82.5 (81.0-99.0) fL MCH 28.2 (26.7-34.0) pg MCHC 34.2 (29.9-35.2) g/dL RDW 13.4 (11.0-15.0) % Plt Count 206 (150-450) 10^3/uL MPV 9.1 L (9.5-13.5) fL Neut % (Auto) 55.6 (43.0-75.0) % Lymph % (Auto) 35.7 (20.5-60.0) % [place] % (Auto) 6.5 (1.7-12.0) % Eos % (Auto) 1.5 (0.9-7.0) % Baso % (Auto) 0.4 (0.2-2.0) % Neut # (Auto) 4.0 (1.4-6.5) 10^3/uL Lymph # (Auto) 2.5 (1.2-3.8) 10^3/uL [place] # (Auto) 0.5 (0.3-0.8) 10^3/uL Eos # (Auto) 0.1 (0.0-0.7) 10^3/uL Baso # (Auto) 0.0 (0.0-0.1) 10^3/uL Abs Immat Gran (auto) 0.02 (0.00-0.03) 10^3/uL Imm/Tot Granulo (auto) 0.3 (0.0-0.5) % Sodium 128 L (136-145) mmol/L Potassium 5.0 (3.5-5.1) mmol/L Chloride 94 L (98-107) mmol/L Carbon Dioxide 23.5 (21.0-32.0) mmol/L Anion Gap 15.5 BUN 33.0 H (7.0-18.0) mg/dL Creatinine 1.22 H (0.55-1.02) mg/dL Est GFR ( Amer) 51 L (>=60 mL/min/1.73m^2) Est GFR (Non-Af Amer) 42 L (>=60 mL/min/1.73m^2) BUN/Creatinine Ratio 27.0 Glucose 168 H (74-106) mg/dL Calcium 9.6 (8.5-10.1) mg/dL Total Bilirubin 0.5 (0.2-1.0) mg/dL AST 18 (15-37) U/L ALT 21 (14-59) U/L Alkaline Phosphatase 79 (46-116) U/L Troponin I High Sens 6.5 (4.0-51.3) pg/mL Total Protein 7.5 (6.4-8.2) g/dL Albumin 3.8 (3.4-5.0) g/dL Globulin 3.7 g/dL Albumin/Globulin Ratio 1.0 Urine Color Lt yellow (YELLOW) Urine Clarity Clear (CLEAR) Urine pH 6.0 (5.0-9.0) Ur Specific [place] <=1.005 A (1.005-1.025) Urine Protein Negative (NEG/TRACE) mg/dL Urine Glucose (UA) Negative (NEGATIVE) mg/dL Urine Ketones Negative (NEGATIVE) mg/dL Urine Occult Blood Negative (NEGATIVE) Urine Nitrite Negative (NEGATIVE) Urine Bilirubin Negative (NEGATIVE) Urine Urobilinogen 0.2 (0.2-1.0) EU/dL Ur Leukocyte Esterase Small A (NEGATIVE) Urine RBC 0-2 (0-2) #/HPF Urine WBC 2-5 A (NONE SEEN) #/HPF Ur Squamous Epith Cells Rare (NONE/RARE) #/LPF Urine Crystals None seen (None Seen) #/HPF Urine Bacteria Trace A (NONE SEEN) #/HPF Urine Casts None seen (NONE SEEN) #/LPF Urine Mucus None seen (NONE SEEN) Ur Culture Indicated? Yes-[facility] [place] CT scan - abdomen: Attestation: I personally reviewed and interpreted this imaging study as follows: Radiologist's impression: ITS Impressions Abdomen/Pelvis CT 06/06/25 13:35 IMPRESSION: No acute process. Impression dictated by: Doron Power Jr.OJeffrey 06/06/2025 3:02 PM Dictation Location: [place] [address] Electronically authenticated by: [id number] Y Date: 06/06/2025 15:02 ECG Data Attestation: I personally reviewed and interpreted this ECG as follows: Discharge Plan Discharge Chief Complaint: Abdominal Pain Clinical Impression: Diarrhea Patient Disposition: Home, Self-Care Time of Disposition Decision: 17:10 Condition: Fair Mode of Transportation: Private Vehicle Prescriptions / Home Meds: No Action atorvastatin 80 mg tablet 80 mg PO .qhs carvedilol 12.5 mg tablet 12.5 mg PO Q12H Patient Comments: total dose 18.75 mg bid cyproheptadine 4 mg tablet 2 mg PO .qhs latanoprost 0.005 % drops 1 drp OPHTHALMIC (EYE) .qhs Patient Comments: both eyes aspirin 81 mg tablet,chewable 81 mg PO DAILY Qty: 30 0RF carvedilol 6.25 mg tablet 6.25 mg PO BID Rx Instructions: total dose 18.75 mg bid trazodone 50 mg tablet 50 mg PO .qhs PRN (Reason: sleep) dorzolamide-timolol 22.3-6.8 mg/mL drops 1 drp OPHTHALMIC (EYE) BID Rx Instructions: right eye furosemide 20 mg tablet 20 mg PO DAILY PRN (Reason: edema) metformin 500 mg tablet extended release 24 hr 1,000 mg PO DAILY spironolactone 50 mg tablet 25 mg PO DAILY insulin glargine [Lantus Solostar U-100 Insulin] 100 unit/mL (3 mL) insulin pen 30 unit SUBCUT DAILY Print Language: Mohawk Instructions: Acute Diarrhea (ED) Referrals: MARIAM KIRBY [Primary Care Provider, Internal Medicine] - 1 week Discharge Date/Time: 06/06/25 17:33
[2025-06-06] MEDS: 0.9 % SODIUM CHLORIDE 1,000 ML 500 ML IV (15:26)
[2025-06-06 16:01] VITALS: BP 169/65; PULSE 60
[2025-06-06 16:02] VITALS: BP 175/69; BP 179/71; PULSE 61; PULSE 62
[2025-06-06 16:30] LABS: Glucose Urine UA NEGATIVE (NEGATIVE)
[2025-06-06 16:32] LABS: Cast Seen? NONE SEEN #/LPF (NONE SEEN); Crystals Seen? None Seen #/HPF (None Seen); Urine Culture Indicated YES-FRMC
== END 2025-06-06 17:33 | disposition home or self-care (01) ==
PROVIDERS: Emergency Provider Student in an Organized Health Care Education/Training Program; PCP Internal Medicine
DX: R19.7 Diarrhea, unspecified (principal); R10.32 Left lower quadrant pain; I25.2 Old myocardial infarction; Z95.0 Presence of cardiac pacemaker; E87.1 Hypo-osmolality and hyponatremia; E86.0 Dehydration
CPT/HCPCS: 36415; 74177; 80053; 81001; 84484; 85025; 87086; 93005; 96360; 96361; 99285; Q9967

== ENCOUNTER 2025-07-03 14:36 | Outpatient (OUT) | payer MEDICARE, SELFPAY ==
--- OUTSIDE RECORDS SUMMARY | 2025-06-22 10:30 | XMS_ITS | Encounter Summary ---
Author Organization [facility] Address [address] [place] [address] Care Team Providers Care Ceo & Board Director Name Role Phone Rodrick Butler MD Primary Care Provider [phone] Rodrick Butler MD Unavailable [phone] Ivelisse Baptiste LPN Unavailable Reason for Visit * ReasonCommentsSinusitisDiabetesHypertension Encounter Details DateTypeDepartmentCare Team (Latest Contact Info)Vgnzxkukxuc97/23/2025 11:30 AM EDTOffice Visit [facility] [address] [facility] [address] [place] [address] Rodrick Butler MD 112 [facility] 110 [place], [place] [id number] Acute non-recurrent sinusitis, unspecified location (Primary Dx); Atherosclerosis of eek coronary artery of eek heart without angina pectoris; Mixed hyperlipidemia; Benign essential hypertension Social History Tobacco UseTypesPacks/DayYears UsedDateSmoking Tobacco: NeverSmokeless Tobacco: NeverAlcohol UseStandard Drinks/WeekCommentsNever0 (1 standard drink = 0.6 oz pure alcohol)B1300 Health LiteracyAnswerDate RecordedHow often do you need to have someone help you when you read instructions, pamphlets, or other written material from your doctor or pharmacy?Ktsxfh6306/21/2024Humiliation, Afraid, Rape, and Kick questionnaireAnswerDate RecordedWithin the last year, have you been afraid of your partner or ex-partner?No06/21/2024Within the last year, have you been humiliated or emotionally abused in other ways by your partner or ex-partner?No06/21/2024Within the last year, have you been kicked, hit, slapped, or otherwise physically hurt by your partner or ex-partner?No06/21/2024Within the last year, have you been raped or forced to have any kind of sexual activity by your partner or ex-partner?No06/21/2024Social Connection and Isolation Panel AnswerDate RecordedIn a typical week, how many times do you talk on the phone with family, friends, or neighbors?More than three times a week06/21/2024How often do you get together with friends or relatives?More than three times a week 06/21/2024How often do you attend latter-day or islam services?More than 4 times per year06/21/2024o you belong to any clubs or organizations such as latter-day groups, unions, fraternal or athletic groups, or school groups?Yes06/21/2024How often do you attend meetings of the clubs or organizations you belong to?More than 4 times per year06/21/2024re you , , , , never , or living with a partner?Zwwlymr3506/21/2024UDIT-CAnswerDate RecordedQ1: How often do you have a drink containing alcohol?Never06/21/2024Q2: How many drinks containing alcohol do you have on a typical day when you are drinking?Patient does not drink06/21/2024Q3: How often do you have six or more drinks on one occasion?Never06/21/2024Overall Financial Resource Strain (CARDIA) AnswerDate RecordedHow hard is it for you to pay for the very basics like food, housing, medical care, and heating?Not hard at all06/21/2024HQ-2AnswerDate RecordedPatient Health Questionnaire-2 Bivlb832[facility] [place] [facility] - Occupational Stress QuestionnaireAnswerDate RecordedDo you feel stress - tense, restless, nervous, or anxious, or unable to sleep at night because yourmind is troubled all the time - these days?Only a idqbeu2906/21/2024 Exercise Vital SignAnswerDate RecordedOn average, how many days per week do you engage in moderate to strenuous exercise (like a brisk walk)?0 days09/14/2024On average, how many minutes do you engage in exercise at this level?0 min 09/14/2024Hunger Vital SignAnswerDate RecordedWithin the past 12 months, you worried that your food would run out before you got the money to buymore.Never true06/21/2024Within the past 12 months, the food you bought just didn't last and you didn't have money to get more.Never true06/21/2024RAPARE - TransportationAnswerDate RecordedIn the past 12 months, has lack of transportation kept you from medical appointments or from getting medications?No 06/21/2024In the past 12 months, has lack of transportation kept you from meetings, work, or from getting things needed for daily living?No06/21/2024 Housing Stability Vital SignAnswerDate RecordedIn the last 12 months, was there a time when you were not able to pay the mortgage or rent on time?No04/23/2023In the last 12 months, how many places have you lived?In the last 12 months, was there a time when you did not have a steady place to sleep or slept in [facility] (including now)?No04/23/2023Housing Stability Vital SignAnswerDate RecordedIn the last 12 months, was there a time when you were not able to pay the mortgage or rent on time?No06/21/2024In the past 12 months, how many times have you moved where you were living?t any time in the past 12 months, were you homeless or living in a care home (including now)?No06/21/2024 CommentsUnknownSex and Gender InformationValueDate RecordedSex Assigned at BirthNot on fileLegal McrPjurgz58/15/2023 7:20 PM EDTGender IdentityNot on fileSexual OrientationNot on filedocumented as of this encounter Last Filed Vital Signs Vital SignReadingTime TakenCommentsBlood Aafqxwpy774/8010 11:15 AM EDT Jrrci3392 11:15 AM VIAWndbiamrxtz68.6 ??C (97.8 ??F)06/22/2025 11:15 AM EDTRespiratory Rate--Oxygen Svsyfjbzyy128%06/22/2025 11:15 AM EDTInhaled Oxygen Concentration--Rfszvh10.9 kg (152 lb)06/22/2025 11:15 AM EENIozitc134.2 cm (5' 7 )06/22/2025 11:15 AM EDTBody Mass Index23.8106/22/2025 11:15 AM EDTdocumented in this encounter Progress Notes * Rodrick Butler MD - 06/22/2025 11:30 AM EDT Images from the original note were not included. Subjective Patient ID: Tere Hartmann is a 85 y.o. female who presents for Sinusitis, Diabetes, and Hypertension. Diabetes Mellitus Patient presents for follow up of diabetes. Current symptoms include: none. Patient denies foot ulcerations, hypoglycemia , paresthesia of the feet, polydipsia, polyuria, visual disturbances, and vomiting. Evaluation to date has included: fasting blood sugar, fasting lipid panel, and hemoglobin A1C. Home sugars: BGs range between 80 and 125 Hypertension Patient is here for follow-up of elevated blood pressure. Blood pressure is not well controlled at home. Cardiac symptoms: none. Patient denies chest pain, claudication, lower extremity edema, orthopnea, palpitations, paroxysmal nocturnal dyspnea, syncope, and tachypnea. Cardiovascular risk factors: advanced age (older than 55 for men, 65 for women), diabetes mellitus, and hypertension. Sinus Pain Patient complains of clear rhinorrhea, congestion, cough, nasal congestion, and post nasal drip. Onset of symptoms was 2 weeks ago. Symptoms have been unchanged since that time. Patient is non-smoker. No help with abx per pt Sinusitis Diabetes Med Refill Current Outpatient Medications on File [...] evening. Take with meals. 200 tablet 3 carvedilol (Coreg) 6.25 MG tablet Take 1 tablet (6.25 mg) by mouth in the morning and 1 tablet (6.25 mg) in the evening. Take with meals. TAKE WITH THE 12.5MG COREG. 200 tablet 3 cyproheptadine (Periactin) 4 MG tablet TAKE 1/2 TABLET AT BEDTIME 45 tablet 3 dorzolamide-timolol (Cosopt) 2-0.5 % ophthalmic solution INSTILL 1 DROP IN THE RIGHT EYE TWICE DAILY (patient needs appointment) furosemide (Lasix) 20 MG tablet Take 1 tablet (20 mg) by mouth Daily as needed (Swelling) 90 tablet1 glucose blood (Accu-Chek Briana Plus) test strip 1 each in the morning and 1 each before bedtime. Glucose Blood (Blood Glucose Test) strip 1 each by In Vitro route Daily 100 strip 3 insulin glargine (Lantus SoloStar) 100 UNIT/ML pen Inject 30 Units under the skin in the morning. 15 mL 3 Lancets 30G misc 1 each Daily 100 each 3 latanoprost (Xalatan) 0.005 % ophthalmic solution Administer 1 drop into both eyes at bedtime metFORMIN XR (Glucophage-XR) 500 MG 24 hr tablet Take 2 tablets (1,000 mg) by mouth in the morning.Take with meals. Do not crush, chew, or split. 60 tablet 11 sacubitril-valsartan (Entresto) 97-103 MG tablet Take 1 tablet by mouth in the morning and 1 tabletbefore bedtime. 60 tablet 11 spironolactone (Aldactone) 50 MG tablet Take 25 mg by mouth in the morning. (Patient taking differently: Take 25 mg by mouth in the morning and 25 mg before bedtime. CARDIOLOGY CHANGED TO 1/2 TAB BID.) traZODone (Desyrel) 50 MG tablet TAKE 1 TABLET BY MOUTH AT BEDTIME NEEDED for sleep 30 tablet 5 [DISCONTINUED] cefdinir (Omnicef) 300 MG capsule Take 1 capsule (300 mg) by mouth in the morning and 1 capsule (300 mg) before bedtime. Do all this for 7 days. 14 capsule 0 [DISCONTINUED] guaiFENesin-dextromethorphan (Robitussin DM) 100-10 MG/5ML syrup Take 5 mL by mouth every 4 (four) hours if needed for cough for up to 10 days 118 mL 2 No current facility-administered medications on file prior to visit. I have reviewed and reconciled the history and medication list with the patient today. Allergies Allergen Reactions Amlodipine Swelling Swelling in feet Empagliflozin Other Yeast Infections Sulfa Antibiotics Unknown and Swelling sore in mouth Clonidine Other Dry Mouth Dapagliflozin Other Iodine Sacubitril-Valsartan Other hypertension Shellfish Allergy vomitting, diarrhea Shellfish Protein-Containing Drug Products Unknown Social History Tobacco Use Smoking [...] History: Diagnosis Date CAD (coronary artery disease) CAD (coronary artery disease) Elevated Troponin (05/09/2022-05/11/2022) Cervical cancer (HCC) Chest pain 06/06/2022, 08/28/2022 CHF (congestive heart failure) (HCC) Chronic systolic heart failure (HCC) Coronary atherosclerosis Diabetes mellitus (HCC) History of being hospitalized 09/04/2023 Bradycardia, URI, Metabolic Acidosis, Dehydration History of being hospitalized 05/28/2024 Hypertensive Emergency, CVA, CAD HLD (hyperlipidemia) Hypertension Other specified disorders of adrenal gland (HCC) Type 2 diabetes mellitus with hyperglycemia (HCC) Past Surgical History: Procedure Laterality Date ADENOIDECTOMY ANGIOGRAM 04/21/2022 PCI,RCA,PDA APPENDECTOMY 1963 CARDIAC CATHETERIZATION Right 03/07/2022 CARDIAC PACEMAKER PLACEMENT 09/07/2023 HYSTERECTOMY 1997 Visit Vitals BP 168/80 Pulse 60 Temp 97.8 ??F Ht 5' 7 Wt 152 lb SpO2 100% BMI 23.81 kg/m?? Smoking Status Never BSA 1.8 m?? Review of Systems Objective Physical Exam Constitutional: General: She is not in acute distress. Appearance: Normal appearance. She is well-developed. HENT: Head: Normocephalic and atraumatic. Right Ear: Tympanic membrane and ear canal normal. Left Ear: Tympanic membrane and ear canal normal. Nose: Congestion present. Mouth/Throat: Mouth: Mucous membranes are moist. Pharynx: Posterior oropharyngeal erythema present. Eyes: General: No scleral icterus. Conjunctiva/sclera: Conjunctivae normal. Cardiovascular: Rate and Rhythm: Normal rate and regular rhythm. Heart sounds: Normal heart sounds. No murmur heard. Pulmonary: Effort: Pulmonary effort is normal. No respiratory distress. Breath sounds: Normal breath sounds. No wheezing, rhonchi or rales. Lymphadenopathy: Cervical: No cervical adenopathy. Skin: General: Skin is warm and dry. Neurological: General: No focal deficit present. Mental Status: She is alert and oriented to person, place, and time. Psychiatric: Mood and Affect: Mood normal. Behavior: Behavior normal. Assessment/Plan Diagnoses and all orders for this visit: Acute non-recurrent sinusitis, unspecified location - levoFLOXacin (Levaquin) 500 MG tablet; Take 1 tablet (500 mg) by mouth Daily for 10 days Atherosclerosis of eek coronary artery of eek heart without angina pectoris Mixed hyperlipidemia Benign essential hypertension - hydrALAZINE (Apresoline) 25 MG tablet; Take 1 tablet (25 mg) by mouth in the morning and 1 tablet(25 mg) in the evening and 1 tablet (25 mg) before bedtime. Other orders - Follow Up In Family Medicine; Future Follow up with Dr. Rodrick Butler in 2 weeks (on 07/06/2025). documented in this encounter Plan of Treatment DateTypeDepartmentCare Team (Latest Contact Info)Sqrrovqhilp39/10/2025 4:15 PM ESTOffice Visit [facility] [address] [facility] [address] [place] [address] Rodrick Butler MD [address] [facility] [address] [place] [address] documented as of this encounter Visit Diagnoses Diagnosis Acute non-recurrent sinusitis, unspecified location- Primary Atherosclerosis of eek coronary artery of eek heart without angina pectoris Mixed hyperlipidemia Benign essential hypertension Essential hypertension, benign documented in this encounter Care Teams Team MemberRelationshipSpecialtyStart DateEnd Date Rodrick Butler MD [address] [facility] [address] [place] [address] PCP - GeneralInternal Medicine01/14/23 Rodrick Butler MD [address] [facility] [address] [place] [address] PCP - Rosetta CLAROS08/31/24 Ivelisse Baptiste LPN [address] [place] [address] 11/18/24documented as of this encounter
--- OUTSIDE RECORDS SUMMARY | 2025-07-03 14:00 | XMS_ITS | Encounter Summary ---
Author Organization [facility] Address [address] [place] [address] Care Team Providers Care Interior Design Consultant Name Role Phone Rodrick Butler MD Primary Care Provider [phone] Rodrick Butler MD Unavailable [phone] Ivelisse Baptiste LPN Unavailable Encounter Details DateTypeDepartmentCare Team (Latest Contact Info)Nxoajzmduxn96/03/2025 2:00 PM ESTOffice Visit [facility] [address] [place] [address] [place] [address] Rodrick Butler MD [address] [place] [address] [place], [place] [id number] Upper respiratory tract infection, unspecified type (Primary Dx) Social History Tobacco UseTypesPacks/DayYears UsedDateSmoking Tobacco: NeverSmokeless Tobacco: Never Tobacco Cessation:Counseling Given: Yes Alcohol UseStandard Drinks/WeekCommentsNever0 (1 standard drink = 0.6 oz pure alcohol)B1300 Health LiteracyAnswerDate RecordedHow often do you need to have someone help you when you read instructions, pamphlets, or other written material from your doctor or pharmacy?Yhbkhq6206/21/2024Humiliation, Afraid, Rape, and Kick questionnaireAnswerDate RecordedWithin the [...] a week 06/21/2024How often do you attend hinduism or faith services?More than 4 times per year06/21/2024o you belong to any clubs or organizations such as hinduism groups, unions, [employer] or athletic groups, or school groups?Yes06/21/2024How often do you attend meetings of the clubs or organizations you belong to?More than 4 times per year06/21/2024re you , , , , never , or living with a partner?Dwuwzzo1806/21/2024UDIT-CAnswerDate RecordedQ1: How often do you have a [...] heating?Not hard at all06/21/2024HQ-2AnswerDate RecordedPatient Health Questionnaire-2 Egdkb64509/02/2024[facility] [place] [facility] - Occupational Stress QuestionnaireAnswerDate RecordedDo you feel stress - tense, restless, nervous, or anxious, or unable to sleep at night because yourmind is troubled all the time - these days?Only a xkysjl6306/21/2024 Exercise Vital SignAnswerDate RecordedOn average, how many [...] steady place to sleep or slept in [place] (including now)?No04/23/2023Housing Stability Vital SignAnswerDate RecordedIn the last 12 months, was there a time when you were not able to pay the mortgage or rent on time?No06/21/2024In the past 12 months, how many times have you moved where you were living?t any time in the past 12 months, were you homeless or living in a [facility] (including now)?No06/21/2024 CommentsUnknownSex and Gender InformationValueDate RecordedSex Assigned at BirthNot on fileLegal TwmFnvisl62/15/2023 7:20 PM EDTGender IdentityNot on fileSexual OrientationNot on filedocumented as of this encounter Last Filed Vital Signs Vital SignReadingTime TakenCommentsBlood Piedkfrb894/80109/02/2024 1:51 PM EST Yzrkr942807/03/2025 1:51 PM ESTTemperature--Respiratory Labl682409/02/2024 1:51 PM ESTOxygen Kghopfwfqp63%07/03/2025 1:51 PM ESTInhaled Oxygen Concentration-- Xuyzbu97.8 kg (156 lb)07/03/2025 1:51 PM LEAZvzbpn303.2 cm (5' 7 )07/03/2025 1:51 PM ESTBody Mass Index24.43109/02/2024 1:51 PM ESTdocumented in this encounter Functional Status * Over the past 2 weeks, how often have you been bothered by any of the following problems?QuestionAnswerDate of AssessmentAuthorLittle interest or pleasure in doing thingsNot at all07/03/2025 1:46 PM ESTTish WANGeling down, depressed, or hopelessNot at all07/03/2025 1:46 PM KATELYNN HYATT Patient Health Questionnaire-2 Iysvv39309/02/2024 1:46 PM KATELYNN HYATT documented as of this encounter Progress Notes * Rodrick Butler MD - 07/03/2025 2:00 PM EST Images from the original note were not included. Subjective Patient ID: Tere Hartmann is a 85 y.o. female who presents for No chief complaint on file.. Tere presents today for a follow up for sinusitis. She was put on Levofloxacin for 10 days. She says she is still not feeling well. She has had the chills, but no fever. She would like to be checked for Covid. She did say the 2nd antibiotic did help her. Over the past 2 weeks, how often have you been bothered by any of the following problems? Little interest or pleasure in doing things: Not at all Feeling down, depressed, or hopeless: Not at all Patient Health Questionnaire-2 Score: 0 Current Outpatient Medications on File Prior to Visit Medication Sig Dispense Refill spironolactone (Aldactone) 50 MG tablet Take 25 mg by mouth in the morning. (Patient taking differently: Take 25 mg by mouth in the morning and 25 mg before bedtime. CARDIOLOGY CHANGED TO 1/2 TAB BID.) aspirin 81 MG EC tablet Take 81 [...] In Vitro route Daily 100 strip 3 hydrALAZINE (Apresoline) 25 MG tablet Take 1 tablet (25 mg) by mouth in the morning and 1 tablet (25 mg) in the evening and 1 tablet (25 mg) before bedtime. 90 tablet 11 insulin glargine (Lantus SoloStar) 100 UNIT/ML pen Inject 30 Units under the skin in the morning. 15 mL 3 Lancets 30G misc 1 each Daily 100 each 3 latanoprost (Xalatan) 0.005 % ophthalmic solution Administer 1 drop into both eyes at bedtime [] levoFLOXacin (Levaquin) 500 MG tablet Take 1 tablet (500 mg) by mouth Daily for 10 days 10 tablet 0 metFORMIN XR (Glucophage-XR) 500 MG 24 hr tablet Take 2 tablets (1,000 mg) by mouth in the morning.Take with meals. Do not crush, chew, or split. 60 tablet 11 sacubitril-valsartan (Entresto) 97-103 MG tablet Take 1 tablet by mouth in the morning and 1 tabletbefore bedtime. 60 tablet 11 traZODone (Desyrel) 50 MG tablet TAKE 1 TABLET BY MOUTH AT BEDTIME NEEDED for sleep 30 tablet 5 No current facility-administered medications on file prior [...] PLACEMENT 09/07/2023 HYSTERECTOMY 1997 Visit Vitals BP 138/80 Pulse 60 Resp 16 Ht 5' 7 Wt 156 lb SpO2 99% BMI 24.43 kg/m?? Smoking Status Never BSA 1.83 m?? Review of Systems Objective Physical Exam [...] Diagnoses and all orders for this visit: Upper respiratory tract infection, unspecified type - TSH W/REFLEX TO FT4; Future - Comprehensive metabolic panel; Future - CBC and differential - [place] [place] Future - methylPREDNISolone (Medrol Dospak) 4 MG tablets; Follow schedule on package instructions Other orders - Follow Up In Family Medicine; Future Follow up with Dr. Rodrick Butler in 1 week (on 07/10/2025). documented in this encounter Plan of Treatment DateTypeDepartmentCare Team (Latest Contact Info)Aepyrdrpbuc69/10/2025 4:15 PM ESTOffice Visit [facility] [address] [facility] [address] [place] [address] Rodrick Butler MD [address] [facility] 110 [place] [address] NameTypePriorityAssociated DiagnosesOrder ScheduleComprehensive metabolic panel LabRoutine Upper respiratory tract infection, unspecified type Expected: 07/03/2025 (Approximate), Expires: 07/03/2026BC and differentialLab Routine Upper respiratory tract infection, unspecified type Ordered: 5COVID[place] [place]LabRoutine Upper respiratory tract infection, unspecified type Expected: 07/03/2025 (Approximate), Expires: 07/03/2026documented as of this encounter Visit Diagnoses Diagnosis Upper respiratory tract infection, unspecified type- Primary documented in this encounter Care Teams Team MemberRelationshipSpecialtyStart DateEnd Date Rodrick Butler MD [address] [facility] 110 [place] [address] PCP - GeneralInternal Medicine01/14/23 Rodrick Butler MD [address] [facility] 110 [place], [place] [id number] PCP - Rosetta CLAROS08/31/24 Ivelisse Baptiste LPN [address] [address] 11/18/24documented as of this encounter
--- OUTSIDE RECORDS SUMMARY | 2025-07-03 15:00 | XMS_ITS | Clinical Summary ---
Author Organization [facility] Address [address] [place], [place] [id number] Care Team Providers Care Repairer General Name Role Phone Sunil Zhao MD Primary Care Provider [phone] Allergies Active AllergyReactionsCriticalityNoted DkpdFornwggdUcsqbc42/09/2002Shellfish 2002 vomitting, diarrhea Sulfa (Sulfonamide Antibiotics)2002 sore in mouth Medications MedicationSigDispense QuantityRefillsLast FilledStart DateEnd DateStatus GLUCOPHAGE 500MG TABLET Take three (3) tablets in a.m.; two (2) tablets in p.m.Active NORVASC 5MG TABLET Take one(1) tablet daily.Active ZIAC 2.5/6.25MG TABLET Take one-half (1/2) tablet rtzbx301Active ACTOS 15MG TABLET Take one (1) tablet every other dof005Active ATIVAN 0.5MG TABLET Take one (1) tablet at h.s. p.r.n.Active BENTYL 10MG CAPSULE as amsceaacw864/01/2002Active Social History Tobacco UseTypesPacks/DayYears UsedDateSmoking Tobacco: NeverAlcohol UseStandard Drinks/WeekCommentsNo0 (1 standard drink = 0.6 oz pure alcohol)Comments NoSex and Gender InformationValueDate RecordedSex Assigned at BirthNot on file Legal EdnOgmnom89/02/2012 9:49 AM ESTGender IdentityNot on fileSexual OrientationNot on file Last Filed Vital Signs Vital SignReadingTime TakenCommentsBlood Bjeyarzq344/8808 1:20 PM EDT Dfpsm6442 1:20 PM EDTTemperature--Respiratory Rate--Oxygen Saturation-- Inhaled Oxygen Concentration--Jdfisu69 kg (171 lb 14.4 oz)04/25/2002 1:20 PM EDT Inxyjc034.9 cm (5' 6.9 )04/25/2002 1:20 PM EDTBody Mass Qzace6906/26/2002 1:20 PM EDT Plan of Treatment Health MaintenanceDue DateLast DoneCommentsAnxiety Nzybmjpoj43/09/1957Depression Xdnrqjlyx87/09/1957DTaP,Tdap,Td Vaccine (1 - Tdap)1958Pneumococcal Vaccine: 50+ (1 of 1 - PCV)1989Shingrix Vaccine (1 of 2)1989Bone Density Cybxmzhbd91/09/2004Diabetes Cxecyjtvp11/31/RSV Vaccine (1 - 1-dose 75+ series)2014dvance Directive Petsxfamlb31/01/2025ovid-19 Vaccine ( - 2024- season)2025Influenza Vaccine (#1)2025 Procedures Procedure NamePriorityDate/TimeAssociated DiagnosisCommentsCOMPREHENSIVE METABOLIC PANEL01/28/2002 11:40 AM EDT from Last 3 Months or Most Recently Relevant to Health Maintenance Results * (ABNORMAL) COMP METABOLIC PANEL (01/28/2002 11:40 AM EDT)ComponentValueRef RangeTest MethodAnalysis TimePerformed AtPathologist SignatureProtein, Total 8.36.0 - 8.4 g/dLUK [facility]ALTH[facility] LABAlbumin4.23.5 - 5.0 g/dL[facility] UXYXqoaysy03.58.5 - 10.5 mg/dLUK [facility] LABBilirubin, Total0.30.0 - 1.5 mg/dLUK [facility] LABAlkaline Hzgbacybppi562(A)20 - 120 U/[facility] XACKNB387 - 40 U/LCSUM[facility] GYMLqmhvuz070(A)65 - 110 mg/dL [facility] WAHIGA225 - 25 mg/dLUK [facility] LABCreatinine0.70.7 - 1.4 mg/dL[facility] GNFByiaur434614 - 148 mmol/[facility] Potassium5.1(A)3.5 - 5.0 mmol/[facility] WHUFgktcodq25296 - 110 mmol/L [facility] OETVT28302 - 32 mmol/[facility] LABAnion Wzq904 - 15 mmol/[facility] LEDYOP472 - 45 U/[facility] LABSpecimen (Source) Anatomical Location / LateralityCollection Method / VolumeCollection Time Received Time01/28/2002 11:40 AM EDT Narrative Authorizing ProviderResult TypeResult StatusRobert Merna Lu MDLABORATORYFinal ResultPerforming OrganizationAddressCity/State/ZIP CodePhone Number [facility] [address] [place] [address] from Last 3 Months or Most Recently Relevant to Health Maintenance Insurance Care Teams Team MemberRelationshipSpecialtyStart DateEnd Date Sunil Zhao MD [address] [id number] [facility] - [facility]12/17/01
--- OUTSIDE RECORDS SUMMARY | 2025-07-03 15:00 | XMS_ITS | Clinical Summary ---
Author Organization [facility] Address [address] [place] [address] Care Team Providers Care Siebel Consultant Name Role Phone Rodrick Butler MD Primary Care Provider [phone] Rodrick Butler MD Unavailable [phone] Ivelisse Baptiste LPN Unavailable Allergies Active AllergyReactionsCriticalityNoted DateCommentsAmlodipineSwellingMedium 09/12/2024 Swelling in feet OnzinnpwuMlzii75/21/2025 Dry Mouth XbvwukrejvvipFfbpa50/04/3295SlfjfsrperkyzLirjaIbkvjc42/30/2023 Yeast Infections Kzjorm5603/08/2002Sacubitril-YpzjufofqDziif84/13/2024 hypertension Shellfish Vcsihki0903/08/2002 vomitting, diarrhea Shellfish Protein-Containing Drug ObtapkhyRjgtpzx74/30/2023Sulfa Antibiotics Unknown,RpltuiboAlorcc64/09/2002 sore in mouth Medications MedicationSigDispense QuantityRefillsLast FilledStart DateEnd DateStatus aspirin 81 MG EC tablet Take 81 mg by mouth in the morning.Active glucose blood (Accu-Chek Briana Plus) test strip 1 each in the morning and 1 each before bedtime.Active atorvastatin (Lipitor) 80 MG tablet Indications:Atherosclerosis of [place] coronary artery of [place] heart without angina pectoris,Mixed hyperlipidemiaTake 1 tablet (80 mg) by mouth at bedtime 100 tablet 5Active Blood Glucose Monitoring Suppl (Blood Glucose Monitor System) w/Device kit Indications:Type 2 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 gangrene, unspecified whether shelter insulin use (HCC)1 each Daily 1 kit 5Active Glucose Blood (Blood Glucose Test) strip Indications:Type 2 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 gangrene, unspecified whether shelter insulin use (HCC)1 each by In Vitro route Daily 100 strip 5Active latanoprost (Xalatan) 0.005 % ophthalmic solution Administer 1 drop into both eyes at zklewdg64/23/2024Active cyproheptadine (Periactin) 4 MG tablet Indications:VertigoTAKE 1/2 TABLET AT BEDTIME 45 tablet 5Active spironolactone (Aldactone) 50 MG tablet Take 25 mg by mouth in the morning.5010/04/2025ctive sacubitril-valsartan (Entresto) 97-103 MG tablet Indications:Chronic systolic heart failure (HCC)Take 1 tablet by mouth in the morning and 1 tablet before bedtime. 60 tablet 11011/14/0485786Active carvedilol (Coreg) 6.25 MG tablet Indications:Benign essential hypertensionTake 1 tablet (6.25 mg) by mouth in the morning and 1 tablet (6.25 mg) in the evening. Take with meals. TAKE WITH THE 12.5MG COREG. 200 tablet 5Active carvedilol (Coreg) 12.5 MG tablet Indications:Benign essential hypertension,Chronic systolic heart failure (HCC) Take 1 tablet (12.5 mg) by mouth in the morning and 1 tablet (12.5 mg) in the evening. Take with meals. 200 tablet //6Active traZODone (Desyrel) 50 MG tablet Indications:Primary insomniaTAKE 1 TABLET BY MOUTH AT BEDTIME NEEDED for sleep 30 tablet 5065Active furosemide (Lasix) 20 MG tablet Indications:Bilateral leg edemaTake 1 tablet (20 mg) by mouth Daily as needed (Swelling) 90 tablet 1075Active metFORMIN XR (Glucophage-XR) 500 MG 24 hr tablet Indications:Type 2 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 gangrene, unspecified whether shelter insulin use (HCC)Take 2 tablets (1,000 mg) by mouth in the morning. Take with meals. Do not crush, chew, or split. 60 tablet 11005/19/8122066Active dorzolamide-timolol (Cosopt) 2-0.5 % ophthalmic solution INSTILL 1 DROP IN THE RIGHT EYE TWICE DAILY (patient needs appointment) 5Active insulin glargine (Lantus SoloStar) 100 UNIT/ML pen Indications:Diabetic peripheral neuropathy (HCC),Type 2 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 gangrene, with long-term current use of insulin (HCC)Inject 30 Units under the skin in the morning. 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 90 tablet 1116Active methylPREDNISolone (Medrol Dospak) 4 MG tablets Indications:Upper respiratory tract infection, unspecified typeFollow schedule on package instructions 21 tablet /5Active Lancets 30G misc Indications:Type 2 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 gangrene, unspecified whether shelter insulin use (HCC)1 each Daily 100 each /05/2025Discontinued(Reorder) insulin glargine (Lantus SoloStar) 100 UNIT/ML pen Indications:Diabetic peripheral neuropathy (HCC),Type 2 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 gangrene, with long-term current use of insulin (HCC)INJECT 30 UNITS SUBCUTANEOUSLY (UNDER THE SKIN) IN THE MORNING 15 mL Discontinued(Reorder) cefdinir (Omnicef) 300 MG capsule Indications:Acute non-recurrent sinusitis, unspecified locationTake 1 capsule (300 mg) by mouth in the morning and 1 capsule (300 mg) before bedtime. Do all this for 7 days. 14 capsule Discontinued(Therapy completed) guaiFENesin-dextromethorphan (Robitussin DM) 100-10 MG/5ML syrup Indications:Acute non-recurrent sinusitis, unspecified locationTake 5 mL by mouth every 4 (four) hours if needed for cough for up to 10 days 118 mL Discontinued levoFLOXacin (Levaquin) 500 MG tablet Indications:Acute non-recurrent sinusitis, unspecified locationTake 1 tablet (500 mg) by mouth Daily for 10 days 10 tablet ExpiredHospital, Clinic, or Other Facility Administered MedicationOrdered DoseRouteFrequencyStart DateEnd DateStatus triamcinolone acetonide (Kenalog-40) injection 40 mg Indications:Acute non-recurrent sinusitis, unspecified nqcdoyvp39 mgIMOnce Ended Active Problems ProblemNoted DateDiagnosed DateScreening for thyroid vcnsozcw18/03/2025 Atrioventricular block, iazxsyeb77/17/2025 Overview (03/16/2025): Noted by EULA SINGH MD last documented on [id number] Thrombocytopenia, yydqvzhgsiz89/17/2025 Overview (03/16/2025): Noted by [facility] last documented on [id number] Pure hgrqycbumxbefvgyfxpq52/04/2025Gastroesophageal reflux disease without bjvphxbsasn74/21/2025Renal artery yaomubvw95/21/2025ilateral leg edema 09/20/20240110Xmfiztrntifl08/09/2024ure /09/2024HTN (hypertension)04/20/2024NSTEMI (non-ST elevated myocardial infarction)04/20/2024 Type 2 diabetes mellitus with other specified dbjolxapkmhp67/31/2024oth eyes affected by mild nonproliferative diabetic retinopathy with macular edema, associated with type 2 diabetes yarwekpy17/31/2024S/P placement of cardiac xlxabrdwt60/18/2024ardiac pacemaker in situ09/16/2023 Overview (11/30/2023): Last Assessment & Plan: Incision healing well- no s/s of distress and RTC at 1 month for device interrogation Heart block09/07/2023bnormal gait01/27/20236145Diptve21/30/2023therosclerosis of coronary bpstkf7501/27/2023enign essential nahgndpdrgvl13/30/2023entral vestibular iddljlk7801/27/2023hronic systolic heart zwccdsz1801/27/2023iabetic peripheral zajycjidfn17/30/2023iabetic renal seggqev3001/27/2023iverticulitis 01/27/20236651Cbjdtyxeylaezu90/30/2758Hvptukrh98/30/2023Mass of left adrenal gland 01/27/2023Ovarian hizoopo2301/27/2023Skin sensation bwgdloamtiu57/30/2023Type 2 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 akqewwpb16/30/2023 Benign hypertensive cardiomyopathy with heart cvogmny8508/01/2022 Overview (04/14/2023): Last Assessment & Plan: B/p at home is well controlled Continue all medications B/p may be elevated here r/t white coat syndrome Non-qivyku1508/01/2022estless legs euumbbyk39/02/2022resence of drug coated stent in right coronary inyscq6006/25/2022 Overview (04/14/2023): GRETEL to RAMUS- 03/07/22 RCA GRETEL staged PCI on 04/21/22 Last Assessment & Plan: Continue DAPT for 1 year from 04/21/22 implantation of DEC to RCA Cnooxceiqarwwkw10/13/2022 Resolved Problems ProblemNoted DateDiagnosed DateResolved DateType 2 diabetes mellitus without wyrwqbuzrvwez18/30/202307/iabetes qkjioham81/ Encounters DateTypeDepartmentCare GeoeVfagrsdezgm51/03/2025 2:00 PM ESTOffice Visit [facility] [place] [facility] [address] [facility] [address] [place] [address] Rodrick Butler MD Upper respiratory tract infection, unspecified type (Primary Dx)07/03/2025 Telephone [facility] [address] [place] [address] [place] [address] Rodrick Butler MD 07/03/2025Telephone [facility] [address] [place] [address] [place] [address] Rodrick Butler MD 07/03/2025amboo flowsheet [facility] [address] [place] [address] [place] [address] Rodrick Butler MD 07/03/20250283Mgchov33/29/2025Telephone [facility] [address] [place] [address] [place] [address] Rodrick Butler MD 06/22/2025 11:30 AM EDTOffice Visit [facility] [address] [place] [address] [place] [address] Rodrick Butler MD Acute non-recurrent sinusitis, unspecified location (Primary Dx); Atherosclerosis of [place] coronary artery of [place] heart without angina pectoris; Mixed hyperlipidemia; Benign essential gtasulrtfeqq79/23/2025amboo flowsheet [facility] [address] [place] [address] [place] [address] Rodrick Butler MD 06/22/20251373Tcjatl82/21/2025Telephone [facility] [address] [place] [address] [place] [address] Rodrick Butler MD 06/14/2025 10:00 AM EDTOffice Visit [facility] [address] [place] [address] [place] [address] Rodrick Butler MD Acute non-recurrent sinusitis, unspecified location (Primary Dx)06/14/2025amboo flowsheet [facility] [address] [place] [address] [place] [address] Rodrick Butler MD 06/14/20256371Yqfmqw61/13/2025bstract [facility] [facility] [address] [facility] [address] [place] [address] Rodrick Butler MD 06/09/2025[facility] [facility] [address] [facility] [address] [place] [address] Rodrick Butler MD [place] YDOQEEXE88/09/2025Tele[facility] [place] [facility] [address] [facility] [address] [place] [address] Rodrick Butler MD Med Wvmskl8906/07/2025Patient Outreach [facility] [address] [place] [address] Ivelisse Baptiste LPN 06/07/2025bstract [facility] [address] [place] [address] Ivelisse Baptiste LPN 06/07/2025bstract [facility] [place] [facility] [address] [facility] [address] [place] [address] Rodrick Butler MD 06/06/2025linisync Result Encounter [facility] External Department Unsolicited Provider, Generic External Data 05/29/2025Patient Outreach [facility] [address] [place] [address] Ivelisse Baptiste LPN 05/23/2025bstract [facility] [place] [facility] [address] [facility] [address] [place] [address] Rodrick Butler MD 05/19/2025 10:00 AM EDTOffice Visit [facility] [place] [facility] [address] [facility] [address] [place] [address] Rodrick Butler MD Routine general medical examination at health care facility (Primary Dx); ACP (advance care planning); Flu vaccine need; Type 2 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 gangrene, unspecified whether shelter insulin use (HCC); Atrioventricular block, complete (HCC); Diabetic peripheral neuropathy (HCC); Restless legs syndrome; Atherosclerosis of [place] coronary artery of [place] heart without angina pectoris ; Chronic systolic heart failure (HCC); S/P placement of cardiac pacemaker; Renal artery stenosis; Gastroesophageal reflux disease without esophagitis; Pure hypertriglyceridemia ; CALI-inhibitor cough05/19/2025amboo flowsheet [facility] [place] [facility] [address] [facility] [address] [place] [address] Rodrick Butler MD 05/19/2025Travelfrom Last 3 Months Immunizations ImmunizationAdministration DatesNext DueInfluenza, High Dose Seasonal, Preservative Free05/19/2025Influenza, High-dose Seasonal, Quadrivalent, Preservative Free06/08/2024,06/16/2023,05/30/2022Influenza, injectable, MDCK, preservative free, qssispdluqet78/15/2021Influenza, injectable, quadrivalent, preservative free05/18/2020Influenza, seasonal, deqecrpvwa77/28/2013Influenza, trivalent, pfvgfzmeom11/11/2018Pneumococcal Conjugate PCV Family History Medical HistoryRelationNameCommentsHeart diseaseFatherDiabetesMotherHeart diseaseMotherBreast cancerSiblingDiabetesSiblingHeart diseaseSiblingOtherSibling 2 brothers & 2 sisters, .Uterine cancerSiblingRelationNameStatusComments FatherDeceasedMotherDeceasedSibling5 brothers and 4 sistersSisterSon3 sons Social History Tobacco UseTypesPacks/DayYears UsedDateSmoking Tobacco: NeverSmokeless Tobacco: Never Tobacco Cessation:Counseling Given: Yes Alcohol UseStandard Drinks/WeekCommentsNever0 (1 standard drink = 0.6 oz pure alcohol)B1300 Health LiteracyAnswerDate RecordedHow often do you need to have someone help you when you read instructions, pamphlets, or other written material from your doctor or pharmacy?Slgebj8206/21/2024Humiliation, Afraid, Rape, and Kick questionnaireAnswerDate RecordedWithin the [...] a week 06/21/2024How often do you attend lutheran or tenriism services?More than 4 times per year06/21/2024o you belong to any clubs or organizations such as lutheran groups, unions, fraternal or athletic groups, or school groups?Yes06/21/2024How often do you attend meetings of the clubs or organizations you belong to?More than 4 times per year06/21/2024re you , , , , never , or living with a partner?Pvsyzpu3806/21/2024UDIT-CAnswerDate RecordedQ1: How often do you have a [...] heating?Not hard at all06/21/2024HQ-2AnswerDate RecordedPatient Health Questionnaire-2 Znayo57909/02/2024[facility] [place] [facility] - Occupational Stress QuestionnaireAnswerDate RecordedDo you feel stress - tense, restless, nervous, or anxious, or unable to sleep at night because yourmind is troubled all the time - these days?Only a xwirvy4306/21/2024 Exercise Vital SignAnswerDate RecordedOn average, how many [...] steady place to sleep or slept in [place] (including now)?No04/23/2023Housing Stability Vital SignAnswerDate RecordedIn the last 12 months, was there a time when you were not able to pay the mortgage or rent on time?No06/21/2024In the past 12 months, how many times have you moved where you were living?t any time in the past 12 months, were you homeless or living in a jail (including now)?No06/21/2024 CommentsUnknownSex and Gender InformationValueDate RecordedSex Assigned at BirthNot on fileLegal AsxXllhed59/15/2023 7:20 PM EDTGender IdentityNot on fileSexual OrientationNot on file Last Filed Vital Signs Vital SignReadingTime TakenCommentsBlood Tpkzieew320/8011 1:51 PM EST Gmljs8625 1:51 PM DMPNwijtkyqlws00.6 ??C (97.8 ??F)06/22/2025 11:15 AM EDTRespiratory Yuvy214509/02/2024 1:51 PM ESTOxygen Ueveuebjgn19%07/03/2025 1:51 PM ESTInhaled Oxygen Concentration--Nwrikb48.8 kg (156 lb)07/03/2025 1:51 PM EST Lvjryk392.2 cm (5' 7 )07/03/2025 1:51 PM ESTBody Mass Index24.43109/02/2024 1:51 PM EST Plan of Treatment DateTypeDepartmentCare Team (Latest Contact Info)Xpnwzrorahn14/10/2025 4:15 PM ESTOffice Visit [facility] [facility] [address] [facility] [address] [place] [address] Rodrick Butler MD [address] [facility] [address] [place] [address] Health MaintenanceDue DateLast DoneCommentsDiabetes: Urine Protein Screening /3Diabetes: Retinopathy Gcwmbqwwr07/26/022356/4COVID-19 Vaccine ( season), 10/19/2020, 09/22/2020 Diabetes: Hemoglobin A1C5005/19/2025, 01/16/2025, 11/14/2024, Additional history existsPneumococcal Vaccine: 65+ XxnhuLqdpavuap01/10/2024Influenza JnswaiuDwnhqthhe64/19/2025, 06/08/2024, 06/16/2023, Additional history exists Procedures Procedure NamePriorityDate/TimeAssociated DiagnosisCommentsURINE [facility] Dbjukzu8206/06/2025 3:25 PM EDT POCT GLYCATED HEMOGLOBIN, XNIHHHiapkja05/19/2025 10:55 AM EDT Type 2 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 gangrene, unspecified whether shelter insulin use (HCC) DIABETIC RETINOPATHY SCREENING - OU - BOTH UCZXOfbwmpv73/26/2024 from Last 3 Months or Most Recently Relevant to Health Maintenance Results * URINE CULTURE - [facility] (06/06/2025 3:25 PM EDT)ComponentValueRef RangeTest MethodAnalysis TimePerformed AtPathologist SignatureURINE CULTURE - [facility] ??Urine Culture - [facility] 20,000 colonies/ml mixed TBHURINE CULTURE - FRMCbacterial skin contaminantsTBHURINE CULTURE - [facility]2 Days TBHURINE CULTURE - FRMCTBHURINE CULTURE - FRMCTesting performed at [facility] - [id number] [place] [place] [address] TBHSpecimen (Source)Anatomical Location / LateralityCollection Method / Volume Collection TimeReceived Time06/06/2025 3:25 PM EDT1 3:46 PM EDT Narrative [facility] - 06/10/2025 1:50 PM EDT Authorizing ProviderResult TypeResult StatusGeneric External Data ProviderLAB BLOOD ORDERABLESFinal ResultPerforming OrganizationAddressCity/State/ZIP Code Phone Number [facility] * POCT Glycated hemoglobin, total (05/19/2025 10:55 AM EDT)ComponentValueRef RangeTest MethodAnalysis TimePerformed AtPathologist SignatureHemoglobin A1C 5.8Specimen (Source)Anatomical Location / LateralityCollection Method / Volume Collection TimeReceived ZlnmMxzzw68/19/2025 10:55 AM EDT Narrative Authorizing ProviderResult TypeResult StatusRodrick Butler MDPOINT OF CARE TEST ENTER/EDIT ORDERABLESFinal Result * (ABNORMAL) Diabetic Retinopathy Screening - OU - Both Eyes (03/25/2024) ComponentValueRef RangeTest MethodAnalysis TimePerformed AtPathologist SignatureRESULTSRetinopathy OUAnatomical RegionLateralityModalityHeadOther Specimen (Source)Anatomical Location / LateralityCollection Method / Volume Collection TimeReceived Time03/25/2024 Narrative Authorizing ProviderResult TypeResult StatusBeverly Plunkett PAOPHGAVIN PHOTOGRAPHY Final Result from Last 3 Months or Most Recently Relevant to Health Maintenance Insurance Care Teams Team MemberRelationshipSpecialtyStart DateEnd Rodrick Butler MD [address] [facility] [address] [place] [address] PCP - GeneralInternal Medicine01/14/23 Rodrick Butler MD [address] [facility] [address] [place] [address] PCP - [place] CT08/31/24 Ivelisse Baptiste LPN [address] [facility] [address] [place] [address] 11/18/24
--- OUTSIDE RECORDS SUMMARY | 2025-07-03 15:00 | XMS_ITS | Encounter Summary ---
Author Organization [facility] Address [address] [place] [address] Care Team Providers Care Grain Blender Name Role Phone Rodrick Butler MD Primary Care Provider [phone] Encounter Details DateTypeDepartmentCare Team (Latest Contact Info)Fsospqksvam25/27/2025Telephone [facility] [address] [place] [address] Patricia Michelle MA Social History Tobacco UseTypesPacks/DayYears UsedDateSmoking Tobacco: NeverSmokeless Tobacco: NeverAlcohol UseStandard Drinks/WeekCommentsNot Currently0 (1 standard drink = 0.6 oz pure alcohol)[facility] UtilitiesAnswerDate RecordedIn the past 12 months has the [employer], gas, oil, or water [employer] threatened to shut off services in your home?No09/07/2023Humiliation, Afraid, Rape, and Kick questionnaireAnswerDate RecordedWithin the last year, have you been afraid of your partner or ex-partner?No09/07/2023Emotionally AbusedNot on file09/07/2023hysically Abused Not on file09/07/2023Sexually AbusedNot on file09/07/2023Overall Financial Resource Strain (CARDIA)AnswerDate RecordedHow hard is it for you to pay for the very basics like food, housing, medical care, and heating?Not hard at all 09/07/2023UT Safety & EnvironmentAnswerDate RecordedWithin the last year, have you been afraid of your partner or ex-partner?No09/07/2023Emotionally AbusedNot on file09/07/2023hysically AbusedNot on file09/07/2023Sexually AbusedNot on file09/07/2023In the past year have you been physically or sexually abused? Unrecognized value09/07/2023TransportationAnswerDate RecordedIn the past 12 months, has lack of transportation kept you from medical appointments or from getting medications?No09/07/2023Lack of Transportation (Non-Medical)Not on file 09/07/2023Housing Stability Vital SignAnswerDate RecordedUnable to Pay for Housing in the Last YearNot on file09/07/2023Number of Places Lived in the Last YearNot on file09/07/2023In the last 12 months, was there a time when you did not have a steady place to sleep or slept in [place] (including now)?No 09/07/2023Hunger Vital SignAnswerDate RecordedWithin the past 12 months, you worried that your food would run out before you got the money to buymore.Never true09/07/2023an Out of Food in the Last YearNot on file09/07/2023 CommentsNoSex and Gender InformationValueDate RecordedSex Assigned at Lizbvs1809/08/2023 1:50 PM ESTLegal KtsSgfzmr67/30/2022 12:45 AM EDTGender XtwwwdhuNthecn80/09/2024 1:50 PM ESTSexual OrientationHeterosexual or Straight 09/08/2023 1:50 PM ESTdocumented as of this encounter Plan of Treatment DateTypeDepartmentCare Team (Latest Contact Info)Xrqctemzhof83/04/2025 11:30 AM ESTAncillary Procedure [address] [address] 07/17/2025 3:20 PM ESTOffice Visit [address] [phone] Kristian Pennington MD [address] [place] [address] documented as of this encounter Visit Diagnoses Not on filedocumented in this encounter Care Teams Team MemberRelationshipSpecialtyStart DateEnd Date Rodrick Butler MD 112 [facility] [address] [place] [address] PCP - General04/18/22documented as of this encounter
--- OUTSIDE RECORDS SUMMARY | 2025-07-03 15:00 | XMS_ITS | Clinical Summary ---
Author Organization [facility] Address [address] [place] [address] Phone Care Team Providers Care Joint Filler Name Role Phone Unavailable Primary Care Provider Unavailabl e Social History Tobacco UseTypesPacks/DayYears UsedDateSmoking Tobacco: Never Assessed CommentsUnknownSex and Gender InformationValueDate RecordedSex Assigned at Not on fileLegal GqrNabpys68/25/2022 7:57 PM ESTGender IdentityNot on fileSexual OrientationNot on file Plan of Treatment Not on file
--- OUTSIDE RECORDS SUMMARY | 2025-07-03 15:00 | XMS_ITS | Clinical Summary ---
Author Organization [facility] Address [address] [place] [address] Care Team Providers Care Ride Mechanic Name Role Phone Rodrick Butler MD Primary Care Provider [phone] Allergies Active AllergyReactionsCriticalityNoted RhvuDcupeaybDiejzzmfhbWntfckyy92/04/2025 VexuqtelxSotpq61/04/2025 Dry mouth PzkguuwhwcjkiNqebcWvb08/02/2022 Pt gets yeast infections when taking this medication IsmlvlhhhyrtiPcinq07/04/8486OprfawPhtvXwt27/26/2022ulfa (Sulfonamide Antibiotics)IjkoowpiFrxynz28/11/2022 Medications MedicationSigDispense QuantityRefillsLast FilledStart DateEnd DateStatus aspirin 81 mg chewable tablet Chew 1 tablet every day by oral route for 90 days.02/21/2022ctive Lantus Solostar U-100 Insulin 100 unit/mL (3 mL) pen Inject 10 Units under the skin in the morning and at bedtime. 10 units in PM 15 units in AM03/24/2022ctive cyproheptadine (Periactin) 4 mg tablet Take 2 mg by mouth at bedtime.11/12/2022ctive Janumet XR 100-1,000 mg tablet, ER multiphase 24 hr TAKE 1 TABLET BY MOUTH IN THE MORNING WITH A MEAL06/25/2024ctive pantoprazole (ProtoNix) 40 mg EC tablet Take 40 mg by mouth before breakfast.5Active traZODone (Desyrel) 50 mg tablet Take 50 mg by mouth if needed at bedtime for sleep.Active spironolactone (Aldactone) 50 mg tablet Indications:Essential hypertensionTake 0.5 tablets (25 mg) by mouth in the morning. 15 tablet 11010/04/138855ctive sacubitril-valsartan (Entresto) 24-26 mg tablet Indications:Benign hypertensive heart disease with heart failure (CMS/HCC)Take 1 tablet by mouth two times daily./ctive carvedilol (Coreg) 12.5 mg tablet Indications:Essential hypertensionTake 1 tablet (12.5 mg) by mouth with breakfast and with evening meal. 180 tablet //ctive carvedilol (Coreg) 6.25 mg tablet Indications:Essential hypertensionTake 1 tablet (6.25 mg) by mouth with breakfast and with evening meal. In addition to the 12.5mg for a total of 18.75mg twice daily 180 tablet ctive atorvastatin (Lipitor) 80 mg tablet Indications:Mixed hyperlipidemiaTake 1 tablet (80 mg) by mouth at bedtime. 30 tablet 11004/14//ctive Active Problems ProblemNoted DateDiagnosed DatePure fokrdnddayansxpvdeqz54/04/2025ilateral leg edema09/20/2024Gastroesophageal reflux disease without vkcbswvohxt57/21/2025 Renal artery wmbaknjm41/21/2025Pure gawuxkbiliqbvytfqjju66/09/2024Elevated pkmyrozv40/21/2024Epigastric abdominal pain04/20/2024Essential hypertension 04/20/2024 Assessment & Plan (06/02/2024 1:43 [...] as needed. Discussed with patient to please donot take her blood pressure every 15 minutes at home, and that her medication will take at least 45minutes to an hour after taking to start working. Renal function on the first was normal and potassium stable Return to clinic in 2 to 4 weeks with blood pressure log for any further adjustments and to call office for any concerns Both eyes affected by mild nonproliferative diabetic retinopathy with macular edema, associated with type 2 diabetes nndqsfof69/31/2024S/P placement of cardiac cykxsqqwg12/18/2024ardiac pacemaker in situ09/16/2023 Assessment & Plan (09/16/2023 12:52 PM EST): Incision healing well- no s/s of distress and RTC at 1 month for device interrogation Heart block09/07/2023bnormal gaittaxia Benign essential cjcydxtpyjph60entral vestibular vertigo iabetic peripheral xjsnmyuvcg33iabetic renal kwqkbih79iverticulitisMass of left adrenal glandOvarian pzkrmxe72Skin sensation otzdovrojgt30Type 2 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 qrhpbaep62Type 2 diabetes mellitus without sppsagswddqnz05iabetes xtmdudrt06/02/2022 Lfzcpmhr99/02/2022Non-xvktdo6908/01/2022estless legs /02/2022oronary artery disease involving lummi coronary artery of lummi heart06/25/2022 Assessment & Plan (12/17/2022 1:10 PM EDT): [...] send orders for cardiac rehab initiation to [facility] Chronic systolic heart mbdnnog4706/25/2022 Assessment & Plan (06/02/2024 1:45 PM EDT): [facility] -currently she remains euvolemic and without [...] Assessment & Plan (12/17/2022 1:10 PM EDT): [facility]- currently euvolemic and without exacerbation Continue GDMT- ASA lipitor, coreg, farxiga, entresto Monitor daily weights, I&O, fluid restriction 1.5-2L/day, renal function and electrolytes- please maintain K+>4 and Mg > 2 Assessment & Plan (06/25/2022 12:22 PM EDT): [facility] Continue goal-directed medical therapy-aspirin, Lipitor, Toprol, Entresto, samples of Farxiga giventhe patient since she states financially she is [...] of drug coated stent in right coronary szmqtk4806/25/2022 Overview (06/25/2022): GRETEL to RAMUS-03/07/22 RCA GRETEL [...] aspirin and Plavix x1 year at least. Avrfivcxjvlhsjm87/13/2022 Resolved Problems ProblemNoted DateDiagnosed DateResolved ZvbmDstbsfaetxkj92/09/202405/11/2024 NSTEMI (non-ST elevated myocardial infarction)/11/2024Heart block vwnawrplermwvqwk41/08/202405/enign hypertensive cardiomyopathy with heart ndaurwj68/11/2024 Assessment & Plan (12/17/2022 1:08 PM EDT): B/p at home is well controlled Continue all medications B/p may be elevated here r/t white coat syndrome Mixed xfslojsfapvgzh31/26/202205/11/2024 Assessment & Plan (06/02/2024 1:43 PM EDT): Lipid abnormalities are stable continue Lipitor Assessment & Plan (12/17/2022 1:07 PM EDT): Continue statin Assessment & Plan (06/25/2022 12:20 PM EDT): Continue atorvastatin Encounters DateTypeDepartmentCare VrgvHcjixrhiugo90/27/2025Telephone [facility] [address] [place] [address] Patricia Michelle MA 05/19/2025 12:15 PM EDTAncillary Procedure [facility] [address] [place] [address] Adjustment and management of cardiac /19/2025Orders Only [facility] [address] [place] [address] Cody Patrick MD 05/03/2025Telephone [facility] [address] [place] [address] Patricia Michelle MA 04/14/2025Telephone [facility] [place] [address] [place] [phone] Stephanie Templeton MA from Last 3 Months Immunizations ImmunizationAdministration DatesNext DueInfluenza, High-dose Seasonal, Quadrivalent, Preservative Free05/30/2022Influenza, injectable, MDCK, preservative free, bmfnocwvqdwi49/15/2021Influenza, injectable, quadrivalent, preservative free05/18/2020Influenza, seasonal, pglmnqqazq37/28/2013Influenza, trivalent, obpxlkdugx58/11/2018Moderna SARS-CoV-2 Iqqqtnetujt50/19/2021, 10/19/2020,09/22/2020 Family History Medical HistoryRelationNameCommentsCoronary artery diseaseBrotherCoronary artery diseaseFatherHypertensionFatherCoronary artery diseaseMotherHypertensionMother HypertensionSisterRelationNameStatusCommentsBrotherDeceasedFatherDeceasedMother DeceasedSisterDeceased Social History Tobacco UseTypesPacks/DayYears UsedDateSmoking Tobacco: NeverSmokeless Tobacco: Never Tobacco Cessation:Counseling Given: Not Answered Alcohol UseStandard Drinks/WeekCommentsNot Currently0 (1 standard drink = 0.6 oz pure alcohol)[facility] UtilitiesAnswerDate RecordedIn the past 12 months has the [employer], gas, oil, or water [employer] threatened to shut off services in your [...] steady place to sleep or slept in ashelter (including now)?No 09/07/2023Hunger Vital SignAnswerDate RecordedWithin the past 12 months, you worried that your food would run out before you got the money to buymore.Never true09/07/2023an Out of Food in the Last YearNot on file09/07/2023 CommentsNoSex and Gender InformationValueDate RecordedSex Assigned at Mgljsg4409/08/2023 1:50 PM ESTLegal TxuXepmnx86/30/2022 12:45 AM EDTGender SqhssktxQjhdtm66/09/2024 1:50 PM ESTSexual OrientationHeterosexual or Straight 09/08/2023 1:50 PM EST Last Filed Vital Signs Vital SignReadingTime TakenCommentsBlood Aeqdprio714/7605 11:59 AM EDT Zegve2683 11:59 AM EPFAwxvocmgmjh08.1 ??C (97 ??F)09/09/2023 7:39 AM EST Respiratory Wdcu1955 4:00 AM ESTOxygen Nbupjwzmjw45%12/30/2024 11:59 AM EDTInhaled Oxygen Concentration--Kkgfbn25.8 kg (156 lb)12/30/2024 11:59 AM EDT Purjdv774.2 cm (5' 7 )12/30/2024 11:59 AM EDTBody Mass Index24.43012/30/2024 11:59 AM EDT Plan of Treatment DateTypeDepartmentCare Team (Latest Contact Info)Oqhbfwbgymj32/04/2025 11:[address] [facility] [address] [place] [address] 07/17/2025 3:[address] [facility] [address] [facility] [place] [address] Kristian Pennington MD [address] [place] [address] Health MaintenanceDue DateLast DoneCommentsDiabetes: Hemoglobin A1C1939 Diabetes: Retinopathy Gmrzaokoi15/09/1949Depression Mgmmpenkl72/09/1951dult Yhzovpi0703/08/1961Zoster Vaccines (1 of 2)1989Fall Risk Chfrfhfku67/09/2004 COVID-19 Vaccine ( season)5109/18/2020, 07/19/2021, 10/19/2020, Additional history existsPneumococcal Vaccine: 50+ YearsCompleted 12/09/2023Influenza XyqmktbLksyrzkrw44/19/2025, 06/08/2024, 06/16/2023, Additional history existsHIB VaccinesAged OutNo longer eligible based on patient's age to complete this topicHPV VaccinesAged OutNo longer eligible based on patient's age to complete this topicIPV VaccinesAged OutNo longer eligible based on patient's age to complete this topicMeningococcal B VaccineAged OutNo longer eligible based on patient's age to complete this topicMeningococcal VaccineAged OutNo longer eligible based on patient's age to complete this topic Rotavirus VaccinesAged OutNo longer eligible based on patient's age to complete this topic Medical Devices ImplantedTypeAreaManufacturerDevice IdentifierShelf Expiration DateModel / Serial / LotLeadOdalis,S 53, - [id number] - [id number] Implanted:Qty: 1 on 09/07/2023 by [id number] / [id number] / Lead,Merna Jacobo 45, - [id number] - [id number] Implanted:Qty: 1 on 09/07/2023 by Cody Patrick [facility] at [facility] [place] [id number] / [id number] / Pacer Bro Machado Dr-T - [id number] - [id number] Implanted:Qty: 1 on 09/07/2023 by Cody Patrick MD at [facility] [place] [facility] Hospital[id number] / [id number] / Procedures Procedure NamePriorityDate/TimeAssociated DiagnosisCommentsCARDIAC DEVICE CHECK CHECK - HSJHDDEkijbqb97/23/2025 12:20 PM EDT Adjustment and management of cardiac pacemaker CARDIAC DEVICE CHECK - REMOTE - OFSRDZIEJTshhaoj57/19/2025 12:00 AM EDTfrom Last 3 Months Results * CARDIAC DEVICE CHECK - REMOTE - PACEMAKER (05/23/2025 12:20 PM EDT)Specimen (Source)Anatomical Location / LateralityCollection Method / VolumeCollection TimeReceived Time Narrative Authorizing ProviderResult TypeResult StatusPasilvia Patrick MDCSom IMPLANTABLE CARDIAC DEVICE PROCEDURESFinal ResultPerforming OrganizationAddressCity/State/ZIP Code Phone Number CPACS * Cardiac device check - Remote pacemaker (05/19/2025 12:00 AM EDT)Anatomical RegionLateralityModalityOtherSpecimen (Source)Anatomical Location / Laterality Collection Method / VolumeCollection TimeReceived Time05/19/2025 Narrative Authorizing ProviderResult TypeResult StatusPasilvia Patrick MDCV IMPLANTABLE CARDIAC DEVICE PROCEDURESFinal Result from Last 3 Months Insurance Advance Directives * Full Code (Latest Code Status on File) Date ActivatedDate InactivatedComments09/07/2023 7:58 PM09/09/2023 3:56 PM * Full Code Date ActivatedDate InactivatedComments09/07/2023 6:37 PM09/07/2023 7:39 PM Care Teams Team MemberRelationshipSpecialtyStart DateEnd Date Rodrick Butler MD [address] [place] [address] [facility]04/18/22
--- OUTSIDE RECORDS SUMMARY | 2025-07-03 15:00 | XMS_ITS | Clinical Summary ---
Author Organization [facility] Address [facility] [place] [address] Care Team Providers Care Programmer Or Analyst Name Role Phone Rodrick Butler MD Primary Care Provider [phone] Social History Tobacco UseTypesPacks/DayYears UsedDateSmoking Tobacco: Never Assessed CommentsUnknownSex and Gender InformationValueDate RecordedSex Assigned at Not on fileLegal UvkApwuvl26/28/2024 10:35 AM EDTGender IdentityNot on file Sexual OrientationNot on file Plan of Treatment Health MaintenanceDue DateLast DoneCommentsDepression Cbtkzxuxm32/09/1951Tobacco Zvxqpixgq93/09/1952TaP,Tdap and Td Vaccines (1 - Tdap)1958Zoster (Shingles) Vaccine (1 of 2)1989Fall Risk Qqwttaohs53/09/2004RSV ( or age 60+ yrs) (1 - 1-dose 75+ series)2014COVID-19 Vaccine ( - 2024- season)5109/18/2020, 10/19/2020, 09/22/2020Influenza Polrtrb2105/01/2025 06/16/2023, 05/30/2022, 08/14/2021, Additional history exists Medical Devices Not on file Insurance [address] [place] [address] Care Teams Team MemberRelationshipSpecialtyStart DateEnd Rodrick Butler MD 112 [facility] [address] [place] [phone] PCP - GeneralInternal Medicine05/30/24
--- OUTSIDE RECORDS SUMMARY | 2025-07-03 15:01 | XMS_ITS | Encounter Summary ---
Author Organization [facility] Address [address] [place] [address] Care Team Providers Care Magazine Publisher Name Role Phone Rodrick Butler MD Primary Care Provider [phone] Rodrick Butler MD Unavailable [phone] Ivelisse Baptiste LPN Unavailable Encounter Details DateTypeDepartmentCare Team (Latest Contact Info)Effwikpzgnw26/03/2025Telephone [facility] [address] [place] [phone] Rodrick Butler MD [address] [place], [place] [address] Social History Tobacco UseTypesPacks/DayYears UsedDateSmoking Tobacco: NeverSmokeless Tobacco: NeverAlcohol UseStandard Drinks/WeekCommentsNever0 (1 standard drink = 0.6 oz pure alcohol)B1300 Health LiteracyAnswerDate RecordedHow often do you need to have someone help you when you read instructions, pamphlets, or other written material from your doctor or pharmacy?Pbatfa7006/21/2024Humiliation, Afraid, Rape, and Kick questionnaireAnswerDate RecordedWithin the [...] a week 06/21/2024How often do you attend mormonism or mandaen services?More than 4 times per year06/21/2024o you belong to any clubs or organizations such as mormonism groups, unions, [employer] or athletic groups, or school groups?Yes06/21/2024How often do you attend meetings of the clubs or organizations you belong to?More than 4 times per year06/21/2024re you , , , , never , or living with a partner?Alpgskg0406/21/2024UDIT-CAnswerDate RecordedQ1: How often do you have a [...] heating?Not hard at all06/21/2024HQ-2AnswerDate RecordedPatient Health Questionnaire-2 Mmbdb13109/02/2024[facility] [place] [facility] - Occupational Stress QuestionnaireAnswerDate RecordedDo you feel stress - tense, restless, nervous, or anxious, or unable to sleep at night because yourmind is troubled all the time - these days?Only a jkkbum4706/21/2024 Exercise Vital SignAnswerDate RecordedOn average, how many [...] steady place to sleep or slept in [facility] (including now)?No04/23/2023Housing Stability Vital SignAnswerDate [...] InformationValueDate RecordedSex Assigned at BirthNot on fileLegal RpnSaoykv05/15/2023 7:20 PM EDTGender IdentityNot on fileSexual OrientationNot on filedocumented as of this encounter Functional Status * Over the past 2 weeks, how often have you been bothered by any of the following problems?QuestionAnswerDate of AssessmentAuthorLittle interest or pleasure in doing thingsNot at all07/03/2025 1:46 PM Tish HYATTeling down, depressed, or hopelessNot at all07/03/2025 1:46 PM KATELYNN HYATT Patient Health Questionnaire-2 Uohgs06809/02/2024 1:46 PM REJIKATELYNN RICHMOND documented as of this encounter Miscellaneous Notes * Telephone Encounter - Jessica Avila MA - 07/03/2025 2:58 PM EST Order needed documented in this encounter Plan of Treatment DateTypeDepartmentCare Team (Latest Contact Info)Hrpaxflcarm53/10/2025 4:15 PM ESTOffice Visit [facility] [place] [facility] [address] [place] [address] Rodrick Butler MD [address] [place] [address] NameTypePriorityAssociated DiagnosesOrder ScheduleTSH W/REFLEX TO YU9SaaYmllufe Weakness generalized Expected: 07/03/2025 (Approximate), Expires: 07/03/2026documented as of this encounter Visit Diagnoses Diagnosis Weakness generalized Other malaise and fatigue documented in this encounter Care Teams Team MemberRelationshipSpecialtyStart DateEnd Date Rodrick Butler MD [address] [place] [address] PCP - GeneralInternal Medicine01/14/23 Rodrick Butler MD [address] [place] [address] PCP - Rosetta CLAROS08/31/24 Ivelisse Baptiste LPN [address] [place] [address] 11/18/24documented as of this encounter
--- OUTSIDE RECORDS SUMMARY | 2025-07-03 15:01 | XMS_ITS | Encounter Summary ---
Author Organization [facility] Address [address] [place] [address] Care Team Providers Care [facility] Consultant Name Role Phone Rodrick Butler MD Primary Care Provider [phone] Rodrick Butler MD Unavailable [phone] Ivelisse Baptiste LPN Unavailable Encounter Details DateTypeDepartmentCare Team (Latest Contact Info)Inrzltkzzbl65/03/2025Travel Social History Tobacco UseTypesPacks/DayYears UsedDateSmoking Tobacco: NeverSmokeless Tobacco: NeverAlcohol UseStandard Drinks/WeekCommentsNever0 (1 standard drink = 0.6 oz pure alcohol)B1300 Health LiteracyAnswerDate RecordedHow often do you need to have someone help you when you read instructions, pamphlets, or other written material from your doctor or pharmacy?Rgmkfw6006/21/2024Humiliation, Afraid, Rape, and Kick questionnaireAnswerDate RecordedWithin the [...] a week 06/21/2024How often do you attend restorationist or shinto services?More than 4 times per year06/21/2024o you belong to any clubs or organizations such as restorationist groups, unions, fraternal or athletic groups, or school groups?Yes06/21/2024How often do you attend meetings of the clubs or organizations you belong to?More than 4 times per year06/21/2024re you , , , , never , or living with a partner?Rxsoegc4406/21/2024UDIT-CAnswerDate RecordedQ1: How often do you have a [...] heating?Not hard at all06/21/2024HQ-2AnswerDate RecordedPatient Health Questionnaire-2 Ppwta33109/02/2024[facility] [place] [facility] Occup[facility] - Occupational Stress QuestionnaireAnswerDate RecordedDo you feel stress - tense, restless, nervous, or anxious, or unable to sleep at night because yourmind is troubled all the time - these days?Only a hpxukc9106/21/2024 Exercise Vital SignAnswerDate RecordedOn average, how many [...] to sleep or slept in ashelter (including now)?No04/23/2023Housing Stability Vital SignAnswerDate RecordedIn the last 12 months, was there a time when you were not able to pay the mortgage or rent on time?No06/21/2024In the past 12 months, how many times have you moved where you were living?t any time in the past 12 months, were you homeless or living in a chcf (including now)?No06/21/2024 CommentsUnknownSex and Gender InformationValueDate RecordedSex Assigned at BirthNot on fileLegal VrtVymwti49/15/2023 7:20 PM EDTGender IdentityNot on fileSexual OrientationNot on filedocumented as of this encounter Functional Status * Over the past 2 weeks, how often have you been bothered by any of the following problems?QuestionAnswerDate of AssessmentAuthorLittle interest or pleasure in doing thingsNot at all07/03/2025 1:46 PM Tish HYATTeling down, depressed, or hopelessNot at all07/03/2025 1:46 PM KATELYNN HYATT Patient Health Questionnaire-2 Nymbr63209/02/2024 1:46 PM KATELYNN HYATT documented as of this encounter Plan of Treatment DateTypeDepartmentCare Team (Latest Contact Info)Wwutxfzbnzr24/10/2025 4:15 PM ESTOffice Visit [facility] [place] [facility] [address] [place] [address] Rodrick Butler MD [address] [place] [address] documented as of this encounter Visit Diagnoses Not on filedocumented in this encounter Care Teams Team MemberRelationshipSpecialtyStart DateEnd Date Rodrick Butler MD [address] [facility] [address] [place] [address] PCP - GeneralInternal Medicine01/14/23 Rodrick Butler MD [address] [facility] [address] [place] [address] PCP - Rosetta CLAROS08/31/24 Ivelisse Baptiste LPN [address] [facility] [address] [place] [address] 11/18/24documented as of this encounter
--- OUTSIDE RECORDS SUMMARY | 2025-07-03 15:01 | XMS_ITS | Encounter Summary ---
Author Organization [facility] Address [address] [place] [address] Care Team Providers Care Professor Of Education Name Role Phone Rodrick Butler MD Primary Care Provider Rodrick Butler MD Unavailable [phone] Ivelisse Baptiste LPN Unavailable Encounter Details DateTypeDepartmentCare Team (Latest Contact Info)Cwkzpwfgrfm19/29/2025Telephone [facility] [place] [facility] [address] [place] [address] Rodrick Butler MD [address] [place], [place] [address] Social History Tobacco UseTypesPacks/DayYears UsedDateSmoking Tobacco: NeverSmokeless Tobacco: NeverAlcohol UseStandard Drinks/WeekCommentsNever0 (1 standard drink = 0.6 oz pure alcohol)B1300 Health LiteracyAnswerDate RecordedHow often do you need to have someone help you when you read instructions, pamphlets, or other written material from your doctor or pharmacy?Sadubr6706/21/2024Humiliation, Afraid, Rape, and Kick questionnaireAnswerDate RecordedWithin the [...] a week 06/21/2024How often do you attend orthodoxy or advent services?More than 4 times per year06/21/2024o you belong to any clubs or organizations such as orthodoxy groups, unions, fraNapera Networks or athletic groups, or school groups?Yes06/21/2024How often do you attend meetings of the clubs or organizations you belong to?More than 4 times per year06/21/2024re you , , , , never , or living with a partner?Oqusyyc3106/21/2024UDIT-CAnswerDate RecordedQ1: How often do you have a [...] heating?Not hard at all06/21/2024HQ-2AnswerDate RecordedPatient Health Questionnaire-2 Xidha423[facility] [place] of Occupational [facility] - Occupational Stress QuestionnaireAnswerDate RecordedDo you feel stress - tense, restless, nervous, or anxious, or unable to sleep at night because yourmind is troubled all the time - these days?Only a vkolvo9806/21/2024 Exercise Vital SignAnswerDate RecordedOn average, how many [...] steady place to sleep or slept in [facility] (including now)?No04/23/2023Housing Stability Vital SignAnswerDate RecordedIn the [...] InformationValueDate RecordedSex Assigned at BirthNot on fileLegal ZqfUrsiul09/15/2023 7:20 PM EDTGender IdentityNot on fileSexual OrientationNot on filedocumented as of this encounter Miscellaneous Notes * Telephone Encounter - Jessica Avila MA - 06/28/2025 11:31 AM EDT Pt notified * Telephone Encounter - Jessica Avila MA - 06/28/2025 9:37 AM EDT Pt called and stated her BP has been low 101/57 97/51 and this morning it was 112/60 and this was after moving around and getting ready this morning Hydralazine was added at last office visit to where she takes this three times a day Pt is wanting to know what you suggest for her to do , documented in this encounter Plan of Treatment DateTypeDepartmentCare Team (Latest Contact Info)Liyywhdwluk84/10/2025 4:15 PM ESTOffice Visit [facility] [place] [facility] [address] [place] [address] Rodrick Butler MD [address] [place] [address] documented as of this encounter Visit Diagnoses Not on filedocumented in this encounter Care Teams Team MemberRelationshipSpecialtyStart DateEnd Date Rodrick Butler MD [address] [place] [address] PCP - GeneralInternal Medicine01/14/23 Rodrick Butler MD [address] [place] [address] PCP - Rosetta CLAROS08/31/24 Ivelisse Baptiste LPN [address] [place] [address] 11/18/24documented as of this encounter
--- OUTSIDE RECORDS SUMMARY | 2025-07-03 15:01 | XMS_ITS | Encounter Summary ---
Author Organization [facility] Address [address] [place] [address] Care Team Providers Care Market Relationship Manager Name Role Phone Rodrick Butler MD Primary Care Provider [phone] Rodrick Butler MD Unavailable [phone] Ivelisse Baptiste LPN Unavailable Encounter Details DateTypeDepartmentCare Team (Latest Contact Info)Hzwwmkdymil23/03/2025Telephone [facility] [place] [facility] [address] [place] [address] Rodrick Butler MD [address] [place], [place] [address] Social History Tobacco UseTypesPacks/DayYears UsedDateSmoking Tobacco: NeverSmokeless Tobacco: NeverAlcohol UseStandard Drinks/WeekCommentsNever0 (1 standard drink = 0.6 oz pure alcohol)B1300 Health LiteracyAnswerDate RecordedHow often do you need to have someone help you when you read instructions, pamphlets, or other written material from your doctor or pharmacy?Yvdvez8806/21/2024Humiliation, Afraid, Rape, and Kick questionnaireAnswerDate RecordedWithin the [...] 06/21/2024How often do you attend restorationist or denominational services?More than 4 times per year06/21/2024o you belong to any clubs or organizations such as restorationist groups, unions, fraElysia or athletic groups, or school groups?Yes06/21/2024How often do you attend meetings of the clubs or organizations you belong to?More than 4 times per year06/21/2024re you , , , , never , or living with a partner?Yxbrgxf3006/21/2024UDIT-CAnswerDate RecordedQ1: How often do you have a [...] heating?Not hard at all06/21/2024HQ-2AnswerDate RecordedPatient Health Questionnaire-2 Bzale85609/02/2024[facility] [place] of Occupational Health - Occupational Stress QuestionnaireAnswerDate RecordedDo you feel stress - tense, restless, nervous, or anxious, or unable to sleep at night because yourmind is troubled all the time - these days?Only a wbcbpn9306/21/2024 Exercise Vital SignAnswerDate RecordedOn average, how many [...] steady place to sleep or slept in [facility] (including now)?No04/23/2023Housing Stability Vital SignAnswerDate RecordedIn the last 12 months, was there a time when you were not able to pay the mortgage or rent on time?No06/21/2024In the past 12 months, how many times have you moved where you were living?t any time in the past 12 months, were you homeless or living in a fpc (including now)?No06/21/2024 CommentsUnknownSex and Gender InformationValueDate RecordedSex Assigned at BirthNot on fileLegal GcvFnebat39/15/2023 7:20 PM EDTGender IdentityNot on fileSexual OrientationNot on filedocumented as of this encounter Functional Status * Over the past 2 weeks, how often have you been bothered by any of the following problems?QuestionAnswerDate of AssessmentAuthorLittle interest or pleasure in doing thingsNot at all07/03/2025 1:46 PM Tish HYATTeling down, depressed, or hopelessNot at all07/03/2025 1:46 PM KATELYNN HYATT Patient Health Questionnaire-2 Uaddr76909/02/2024 1:46 PM MILIND HYATTA documented as of this encounter Miscellaneous Notes * Telephone Encounter - Jessica Avila MA - 07/03/2025 2:49 PM EST Needed new order documented in this encounter Plan of Treatment DateTypeDepartmentCare Team (Latest Contact Info)Btsveegwnnp35/10/2025 4:15 PM ESTOffice Visit [facility] [place] [facility] [address] [place] [address] Rodrick Butler MD [address] [place] [address] documented as of this encounter Visit Diagnoses Diagnosis Screening for thyroid disorder documented in this encounter Care Teams Team MemberRelationshipSpecialtyStart DateEnd Date Rodrick Butler MD [address] [place] [address] PCP - GeneralInternal Medicine01/14/23 Rodrick Butler MD [address] [place] [address] PCP - Rosetta CLAROS08/31/24 Ivelisse Baptiste LPN [address] [place] [address] 11/18/24documented as of this encounter
--- OUTSIDE RECORDS SUMMARY | 2025-07-03 15:01 | XMS_ITS | Encounter Summary ---
Author Organization [facility] Address [address] [place] [address] Care Team Providers Care High School Drafting Teacher Name Role Phone Rodrick Butler MD Primary Care Provider [phone] Rodrick Butler MD Unavailable [phone] Ivelisse Baptiste LPN Unavailable Encounter Details DateTypeDepartmentCare Team (Latest Contact Info)Qmzghgiylpz12/23/2025Travel Social History Tobacco UseTypesPacks/DayYears UsedDateSmoking Tobacco: NeverSmokeless Tobacco: NeverAlcohol UseStandard Drinks/WeekCommentsNever0 (1 standard drink = 0.6 oz pure alcohol)B1300 Health LiteracyAnswerDate RecordedHow often do you need to have someone help you when you read instructions, pamphlets, or other written material from your doctor or pharmacy?Szmntc9906/21/2024Humiliation, Afraid, Rape, and Kick questionnaireAnswerDate RecordedWithin the [...] a week 06/21/2024How often do you attend jainism or yazidism services?More than 4 times per year06/21/2024o you belong to any clubs or organizations such as jainism groups, unions, fraternal or athletic groups, or school groups?Yes06/21/2024How often do you attend meetings of the clubs or organizations you belong to?More than 4 times per year06/21/2024re you , , , , never , or living with a partner?Qckoijk8906/21/2024UDIT-CAnswerDate RecordedQ1: How often do you have a [...] heating?Not hard at all06/21/2024HQ-2AnswerDate RecordedPatient Health Questionnaire-2 Auiwk102Finintermountain medical center [place] of Occupational Health - Occupational Stress QuestionnaireAnswerDate RecordedDo you feel stress - tense, restless, nervous, or anxious, or unable to sleep at night because yourmind is troubled all the time - these days?Only a kjtgxu3206/21/2024 Exercise Vital SignAnswerDate RecordedOn average, how many [...] were you homeless or living in a usp (including now)?No06/21/2024 CommentsUnknownSex and Gender InformationValueDate RecordedSex Assigned at BirthNot on fileLegal ZobMcdvoi33/15/2023 7:20 PM EDTGender IdentityNot on fileSexual OrientationNot on filedocumented as of this encounter Plan of Treatment DateTypeDepartmentCare Team (Latest Contact Info)Bvsotquglzj44/10/2025 4:15 PM ESTOffice Visit [facility] [place] [facility] [address] [place] [address] Rodrick Butler MD [address] [place] [address] documented as of this encounter Visit Diagnoses Not on filedocumented in this encounter Care Teams Team MemberRelationshipSpecialtyStart DateEnd Date Rodrick Butler MD [address] [place] [address] PCP - GeneralInternal Medicine01/14/23 Rodrick Butler MD [address] [address] PCP - Rosetta CLAROS08/31/24 Ivelisse Baptiste LPN [address] [address] 11/18/24documented as of this encounter
--- OUTSIDE RECORDS SUMMARY | 2025-07-03 15:01 | XMS_ITS | Encounter Summary ---
Author Organization [facility] Address [address] [place] [address] Care Team Providers Care Pier Hand Name Role Phone Rodrick Butler MD Primary Care Provider [phone] Rodrick Butler MD Unavailable [phone] Ivelisse Baptiste LPN Unavailable Encounter Details DateTypeDepartmentCare Team (Latest Contact Info)Gecnmulolzi13/23/2025amboo flowsheet [facility] [place] [facility] [address] [place] [address] Rodrick Butler MD [address] [place], [place] [address] Social History Tobacco UseTypesPacks/DayYears UsedDateSmoking Tobacco: NeverSmokeless Tobacco: NeverAlcohol UseStandard Drinks/WeekCommentsNever0 (1 standard drink = 0.6 oz pure alcohol)B1300 Health LiteracyAnswerDate RecordedHow often do you need to have someone help you when you read instructions, pamphlets, or other written material from your doctor or pharmacy?Srkzdc8006/21/2024Humiliation, Afraid, Rape, and Kick questionnaireAnswerDate RecordedWithin the [...] a week 06/21/2024How often do you attend yazidi or orthodoxy services?More than 4 times per year06/21/2024o you belong to any clubs or organizations such as yazidi groups, unions, fraDigital Intelligence Systems or athletic groups, or school groups?Yes06/21/2024How often do you attend meetings of the clubs or organizations you belong to?More than 4 times per year06/21/2024re you , , , , never , or living with a partner?Hhgvrrj0606/21/2024UDIT-CAnswerDate RecordedQ1: How often do you have a [...] heating?Not hard at all06/21/2024HQ-2AnswerDate RecordedPatient Health Questionnaire-2 Mbvcf542Finlakeview hospital [place] of Occupational Health - Occupational Stress QuestionnaireAnswerDate RecordedDo you feel stress - tense, restless, nervous, or anxious, or unable to sleep at night because yourmind is troubled all the time - these days?Only a mbcnxd8106/21/2024 Exercise Vital SignAnswerDate RecordedOn average, how many [...] steady place to sleep or slept in [facility] (including now)?No04/23/2023Housing Stability Vital SignAnswerDate RecordedIn the last 12 months, was there a time when you were not able to pay the mortgage or rent on time?No06/21/2024In the past 12 months, how many times have you moved where you were living?t any time in the past 12 months, were you homeless or living in a group home (including now)?No06/21/2024 CommentsUnknownSex and Gender InformationValueDate RecordedSex Assigned at BirthNot on fileLegal UcwUrvvza50/15/2023 7:20 PM EDTGender IdentityNot on fileSexual OrientationNot on filedocumented as of this encounter Plan of Treatment DateTypeDepartmentCare Team (Latest Contact Info)Ugherfxyhgx04/10/2025 4:15 PM ESTOffice Visit [facility] [place] [facility] [address] [facility] [address] [place] [address] Rodrick Butler MD [address] [facility] 110 [place] [address] documented as of this encounter Visit Diagnoses Not on filedocumented in this encounter Care Teams Team MemberRelationshipSpecialtyStart DateEnd Date Rodrick Butler MD [address] [facility] [address] [place] [address] PCP - GeneralInternal Medicine01/14/23 Rodrick Butler MD [address] [facility] [address] [place] [address] PCP - Rosetta OH08/31/24 Ivelisse Baptiste LPN [address] [facility] 110 [place] [address] 11/18/24documented as of this encounter
--- OUTSIDE RECORDS SUMMARY | 2025-07-03 15:01 | XMS_ITS | Encounter Summary ---
Author Organization [facility] Address [address] [place] [address] Care Team Providers Care Legal Coordinator Name Role Phone Rodrick Butler MD Primary Care Provider [phone] Rodrick Butler MD Unavailable [phone] Ivelisse Baptiste LPN Unavailable Encounter Details DateTypeDepartmentCare Team (Latest Contact Info)Hmwaidfmkbu09/03/2025amboo flowsheet [facility] [place] [facility] [address] [place] [address] Rodrick Butler MD [address] [place], [place] [address] Social History Tobacco UseTypesPacks/DayYears UsedDateSmoking Tobacco: NeverSmokeless Tobacco: NeverAlcohol UseStandard Drinks/WeekCommentsNever0 (1 standard drink = 0.6 oz pure alcohol)B1300 Health LiteracyAnswerDate RecordedHow often do you need to have someone help you when you read instructions, pamphlets, or other written material from your doctor or pharmacy?Ttnnqp7806/21/2024Humiliation, Afraid, Rape, and Kick questionnaireAnswerDate RecordedWithin the [...] a week 06/21/2024How often do you attend jew or anabaptism services?More than 4 times per year06/21/2024o you belong to any clubs or organizations such as jew groups, unions, fraSt. [facility] Spine [facility] or athletic groups, or school groups?Yes06/21/2024How often do you attend meetings of the clubs or organizations you belong to?More than 4 times per year06/21/2024re you , , , , never , or living with a partner?Xsfeqmj1806/21/2024UDIT-CAnswerDate RecordedQ1: How often do you have a [...] heating?Not hard at all06/21/2024HQ-2AnswerDate RecordedPatient Health Questionnaire-2 Hxweh09709/02/2024Fin[facility] [place] of Occupational Health - Occupational Stress QuestionnaireAnswerDate RecordedDo you feel stress - tense, restless, nervous, or anxious, or unable to sleep at night because yourmind is troubled all the time - these days?Only a atnvfx8906/21/2024 Exercise Vital SignAnswerDate RecordedOn average, how many days per week do you engage in moderate to strenuous exercise (like a brisk walk)?0 days09/14/2024On average, how many minutes do you engage in exercise at this level?0 min 01/15/2025Hunger Vital SignAnswerDate RecordedWithin the past 12 months, [...] steady place to sleep or slept in [facility] (including now)?No04/23/2023Housing Stability Vital SignAnswerDate RecordedIn the last 12 months, was there a time when you were not able to pay the mortgage or rent on time?No06/21/2024In the past 12 months, how many times have you moved where you were living?t any time in the past 12 months, were you homeless or living in a custodial (including now)?No06/21/2024 CommentsUnknownSex and Gender InformationValueDate RecordedSex Assigned at BirthNot on fileLegal KjbQnpitc74/15/2023 7:20 PM EDTGender IdentityNot on fileSexual OrientationNot on filedocumented as of this encounter Plan of Treatment DateTypeDepartmentCare Team (Latest Contact Info)Rnenaalbhbb89/10/2025 4:15 PM ESTOffice Visit [facility] [place] [facility] [address] [facility] [address] [place] [address] Rodrick Butler MD [address] [facility] [address] [place] [address] documented as of this encounter Visit Diagnoses Not on filedocumented in this encounter Care Teams Team MemberRelationshipSpecialtyStart DateEnd Date Rodrick Butler MD [address] [facility] [address] [place] [address] PCP - GeneralInternal Medicine01/14/23 Rodrick Butler MD [address] [facility] [address] [place] [address] PCP - Rosetta AR08/31/24 Ivelisse Baptiste LPN [address] [facility] [address] [place] [address] 11/18/24documented as of this encounter
--- OUTSIDE RECORDS SUMMARY | 2025-07-03 15:01 | XMS_ITS | Encounter Summary ---
Author Organization [facility] Address [address] [place] [address] Care Team Providers Care Dude Wrangler Name Role Phone Rodrick Butler MD Primary Care Provider [phone] Rodrick Butler MD Unavailable [phone] Ivelisse Baptiste LPN Unavailable Encounter Details DateTypeDepartmentCare Team (Latest Contact Info)Wgvxzucounu68/21/2025Telephone [facility] [place] [facility] [address] [place] [id number] Rodrick Butler MD [address] [place], [place] [id number] Social History Tobacco UseTypesPacks/DayYears UsedDateSmoking Tobacco: NeverSmokeless Tobacco: NeverAlcohol UseStandard Drinks/WeekCommentsNever0 (1 standard drink = 0.6 oz pure alcohol)B1300 Health LiteracyAnswerDate RecordedHow often do you need to have someone help you when you read instructions, pamphlets, or other written material from your doctor or pharmacy?Blrdru6906/21/2024Humiliation, Afraid, Rape, and Kick questionnaireAnswerDate RecordedWithin the [...] a week 06/21/2024How often do you attend confucianist or baptist services?More than 4 times per year06/21/2024o you belong to any clubs or organizations such as confucianist groups, unions, fraQuantConnect or athletic groups, or school groups?Yes06/21/2024How often do you attend meetings of the clubs or organizations you belong to?More than 4 times per year06/21/2024re you , , , , never , or living with a partner?Rkaxpva4306/21/2024UDIT-CAnswerDate RecordedQ1: How often do you have a [...] heating?Not hard at all06/21/2024HQ-2AnswerDate RecordedPatient Health Questionnaire-2 [id number] [place] [facility] - Occupational Stress QuestionnaireAnswerDate RecordedDo you feel stress - tense, restless, nervous, or anxious, or unable to sleep at night because yourmind is troubled all the time - these days?Only a gaoorh4106/21/2024 Exercise Vital SignAnswerDate RecordedOn average, how many [...] place to sleep or slept in [facility] (including now)?No04/23/2023Housing Stability Vital SignAnswerDate RecordedIn the last 12 months, was there a time when you were not able to pay the mortgage or rent on time?No06/21/2024In the past 12 months, how many times have you moved where you were living?t any time in the past 12 months, were you homeless or living in a nursing home (including now)?No06/21/2024 CommentsUnknownSex and Gender InformationValueDate RecordedSex Assigned at BirthNot on fileLegal OybWamskg55/15/2023 7:20 PM EDTGender IdentityNot on fileSexual OrientationNot on filedocumented as of this encounter Miscellaneous Notes * Telephone Encounter - Jessica Avila MA - 06/21/2025 8:27 AM EDT Pt stated she is feeling better and it was [place] she stopped taking her BP is back down to 140/70 * Telephone Encounter - LIZZ Venegas - 06/20/2025 4:55 PM EDT I have it listed in her chart that she is taking Carvedilol, Spironolactone, Furosemide, and Entresto. Did she stop all of these? If she is having trouble with the BP medications, she should consider reaching out to Cardiology for guidance. * Telephone Encounter - KATELYNN WANG - 06/20/2025 4:15 PM EDT Patient called and states she is not feeling well and is getting dizzy when she gets up from sitting. She did say that her BP has been high the last 2 days. Bps were 189/95 and 174/94. She did say she was taken off her BP medication. documented in this encounter Plan of Treatment DateTypeDepartmentCare Team (Latest Contact Info)Npbpqxriqpo00/10/2025 4:15 PM ESTOffice Visit [facility] [place] [facility] [address] [place] [id number] Rodrick Butler MD [address] [place] [address] documented as of this encounter Visit Diagnoses Not on filedocumented in this encounter Care Teams Team MemberRelationshipSpecialtyStart DateEnd Date Rodrick Butler MD [address] [place] [address] PCP - GeneralInternal Medicine01/14/23 Rodrick Butler MD [address] [place] [address] PCP - Rosetta CLAROS08/31/24 Ivelisse Baptiste LPN [address] [place] [address] 11/18/24documented as of this encounter
--- OUTSIDE RECORDS SUMMARY | 2025-07-03 15:06 | XMS_ITS | CCD ---
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 Name Role Phone RODRICK BUTLER Primary Care Unavailable RODRICK BUTLER Referring Unavailable SILVINA BREEN Admitting Unavailable SILVINA BREEN Attending Unavailable RODRICK BUTLER Primary Care Unavailable RODRICK BUTLER Referring Unavailable SILVINA BREEN Admitting Unavailable SILVINA BREEN Attending Unavailable CHANDA Butler Primary Care Provider MD Herminia Lawler Admit Provider MD Herminia Lawler Attending Provider [phone] [place] Rojas Other Provider Unavailable DO Darrion Gilbert Other Provider [phone] MD Bo Boothe Other Provider [phone] MD Itz Townsend Other Provider [phone] MD Azra Cedillo Other Provider [phone] MD Jesse Sahu Other Provider JUAN Ramos [...] Unavailable ANDRESSA, TAYLOR Consulting Unavailable BUTLER, DR BECERRA Primary Care Unavailable BUTLER, DR BECERRA Primary Care Unavailable ANDRESSA, TAYLOR Consulting Unavailable ANDRESSA, TAYLOR Attending Unavailable ANDRESSA, TAYLOR Admitting Unavailable BUTLER, DR BECERRA Primary Care [...] Unavailable ANDRESSA, TAYLOR Attending Unavailable BUTLER, DR BCEERRA Primary Care Unavailable ANDRESSA, TAYLOR Consulting Unavailable BUTLER, DR BECERRA Primary Care Unavailable ANDRESSA, TAYLOR Attending Unavailable ANDRESSA, TAYLOR Admitting Unavailable BUTLER, DR BECERRA Attending Unavailable BUTLER, DR BECERRA Admitting Unavailable BUTLER, DR BECERRA Primary Care Unavailable BUTLER, DR BECERRA Consulting Unavailable ZIEBER, DR LOUIS Brice Consulting Unavailable Rodrick Butler MD Unavailable Rodrick Butler MD Primary Care Provider [phone] Greyson MCPHERSON, Jessica Unavailable Rodrick Butler MD Primary Care Provider Rodrick Butler MD Unavailable Baptiste PHONOGRAPH CARTRIDGE ASSEMBLER, Ivelisse Unavailable Unavailable Baptiste PHONOGRAPH CARTRIDGE ASSEMBLER, Ivelisse Unavailable FRANCISCO FORDE Referring Unavailable ELTARICARDO, EHAB Attending Unavailable POLITARICARDO, RITAAB Attending Unavailable TAYLOR CRISOSTOMO Attending Unavailable ANILA, SAMAR Attending Unavailable ANILA, MARIA GUADALUPEAR Attending Unavailable FRANCISCO FORDE Referring Unavailable FARIBASHAMIKA Herron Referring Unavailable ANILA, MARIA GUADALUPEAR Attending Unavailable John Shin DO Attending Provider John Shin Attending Unavailable John Shin Admitting Unavailable RODRICK BUTLER Attending Unavailable RODRICK BUTLER Attending Unavailable RODRICK BUTLER Attending Unavailable RODRICK BUTLER Attending Unavailable RODRICK BUTLER Attending Unavailable BEVERLY PAREDES Attending Unavailable RODRICK BUTLER Attending Unavailable RODRICK BUTLER Attending Unavailable RODRICK BUTLER Attending Unavailable MUSHTAQ VICK Attending Unavailable BEVERLY PAREDES Attending Unavailable Allergies Allergy ClassificationReported Allergen(s)Allergy TypeDate of OnsetReaction(s) Facility (6 sources)Iodine; Translations: [IODINE]Drug Kihgfjh46-45-1220[facility]lpCh[facility] (7 sources)Sulfonamides (Antibiotic); Translations: [SULFA (SULFONAMIDE ANTIBIOTICS)]Drug allergy (disorder)21-17-1906Bvfhvrt, Blister, mouth soresThe [facility] RepositoryComment on above:stomatitis; blisters around mouth (5 sources)Shellfish; Translations: [shellfish derived]Propensity to adverse pfzoxydie65-97-7133PaacasjyMmkvkgueuSt. Elizabeth Hospital (1 source)Sulfonamides (Antibiotic)Propensity to adverse reactionsmouth sores [facility] Other (1 source)shellfish/iodinePropensity to adverse reactionsvomitJefferson Memorial Hospital [employer] Other (1 source)empagliflozinDrug AllergyThe [facility] Repository (1 source)IodineDrug Wuubswr02-35-7773BevChildren'S Hospital For Rehabilitation Repository (1 source)ShellfishDrug allergy (disorder)20-97-3269UlfChildren'S Hospital For Rehabilitation Repository (20 sources)IodineDrug Npqmqqa74-44-4142[facility] (20 sources)ShellfishPropensity to adverse lhbpjmkpu33-88-5178BKGL [facility] (20 sources)Sulfonamides (Antibiotic)Drug Cuprxhx51-75-4601Sciqlru, SwellingCooper County Memorial Hospital (20 sources)Shellfish-Derived ProductsDrug Hiputvd23-36-0941McujqltQIVA [facility] (20 sources)amLODIPine; Translations: [AMLODIPINE]Drug Refaies59-90-2100Ngsgcoyh [facility] Work Phone: (20 sources)empagliflozin; Translations: [EMPAGLIFLOZIN]Drug Hqlarjr41-57-3348 [facility] (20 sources)sacubitril / valsartan; Translations: [SACUBITRIL-VALSARTAN]Drug Qwycdnc07-23-1766GkexnRDUO Healthcare (20 sources)cloNIDine; Translations: [CLONIDINE]Drug Rgvhuvu98-77-0935MsnspLHFQ Healthcare (20 sources)dapagliflozin; Translations: [DAPAGLIFLOZIN]Drug Cxgyzls65-68-2022 [facility] (10 sources)Shellfish Protein-Containing Drug ProductsDrug Vfelpgh55-24-8015 [facility] (1 source)IodineDrug Dzoeokp70-73-1669HftpvbfrvPaulding County Hospital Repository (1 source)Sulfonamides (Antibiotic)Drug allergy (disorder)61-56-2794MhfgfppncPaulding County Hospital Repository Medications Current Medications MedicationDrug Class(es)DatesSig (Normalized)Sig (Original)amLODIPine 2.5 mg oral tablet (2 sources)Dihydropyridine Calcium Channel BlockerStart: 09-05-2024 End: 18-78-0985ynly 1 tablet by mouth once dailyamLODIPine (Norvasc) 2.5 MG tablet Indications: Benign essential hypertension (CMS/HCC) Take 1 tablet (2.5 mg) by mouth Daily 30 tablet 5 09/05/2024 03/04/2025 Activeaspirin 81 mg delayed release oral tablet (20 sources)Platelet Aggregation Inhibitor, Nonsteroidal Anti-inflammatory Drug Start: 73-72-4749xtwg 1 tablet by mouth once dailyatorvastatin 80 mg oral tablet (20 sources)HMG-CoA Reductase InhibitorStart: 05-09-2022 End: 75-33-8395cllr 1 tablet by mouth at bedtimeatorvastatin (Lipitor) 80 MG tablet Indications: Atherosclerosis of [place] coronary artery of [place] heart without angina pectoris , Mixed hyperlipidemia Take 1 tablet (80 mg) by mouth at bedtime 100tablet 3 06/07/2024 07/12/2025 Activetake 1 tablet by mouth every twenty-four hoursAtorvastatin Calcium 40 MG 1 tablet Orally Once a day Active Blood Glucose Monitoring Suppl (Blood Glucose Monitor System) w/Device kit (20 sources)Start: 04-71-9131Skaft Glucose Monitoring Suppl (Blood Glucose Monitor System) w/Device kit Indications: Type 2 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 gangrene, unspecified whether assisted insulin use [facility] 1 each Daily 1 kit 09/08/2024 ActiveStart: 67-79-9259Wgdmp Glucose Monitoring Suppl (Blood Glucose Monitor System) w/Device kit Indications: Type 2 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 gangrene, unspecified whether assisted insulin use ([facility]/HCC) 1 each Daily 1 kit 09/08/2024 Activecarvedilol 12.5 mg oral tablet (20 sources)alpha-Adrenergic Reginaldo, beta-Adrenergic BlockerStart: 12-19-2024 take 1 tablet by mouth in the morningcarvedilol (Coreg) 6.25 MG tablet Indications: Benign essential hypertension Take 1 tablet (6.25 mg) by mouth in the morning and 1 tablet (6.25 mg) in the evening. Take with meals. TAKE WITH THE 12.5MG COREG. 200 tablet 3 12/19/2024 ActiveStart: 55-02-5274kqqvecuyez (Coreg) 6.25 MG tablet Take 6.25 mg by mouth in the morning and 6.25 mg in the evening. Take with meals. TAKE WITH THE 12.5MG COREG. 11/07/2024 ActiveStart: 08-13-2023 End: 34-26-3811dcyp 1 tablet by mouth in the morningcarvedilol (Coreg) 12.5 MG tablet Indications: Benign essential hypertension , Chronic systolic heart failure (HCC) Take 1 tablet (12.5 mg) by mouth in the morning and 1 tablet (12.5 mg) in the evening. Take with meals. 200 tablet 3 01/16/2025 02/20/2026 Active take 1 tablet by mouth every twelve hoursCarvedilol 12.5 MG 1 tablet with food Orally Twice a day Activecefdinir 300 mg oral capsule (4 sources)Cephalosporin AntibacterialStart: 06-14-2025 End: 68-48-2764mhvq 1 capsule by mouth in the morningcefdinir (Omnicef) 300 MG capsule Indications: Acute non-recurrent sinusitis, unspecified location Take 1 capsule (300 mg) by mouth in the morning and 1 capsule (300 mg) before bedtime. Do all this for 7 days. 14 capsule 06/14/2025 06/22/2025 Discontinued (Therapy completed)ciprofloxacin 250 mg oral tablet (10 sources)Quinolone AntimicrobialStart: 03-16-2025 End: 30-94-6350qsha 1 tablet by mouth in the morningciprofloxacin (Cipro) 250 MG tablet Indications: Acute cystitis with hematuria Take 1 tablet (250 mg) by mouth in the morning and 1 tablet (250 mg) before bedtime. Do all this for 3 days. 6 tablet 03/16/2025 03/19/2025 ActiveStart: 04-07-2024 End: 12-34-7132hght 1 tablet by mouth in the morningciprofloxacin (Cipro) 500 MG tablet Indications: Acute cystitis with hematuria Take 1 tablet (500 mg) by mouth in the morning and 1 tablet (500 mg) before bedtime. Do all this for 7 days. 14 tablet 04/26/2024 05/03/2024 Activeclopidogrel 75 mg oral tablet (5 sources)P2Y12 Platelet InhibitorStart: 16-96-1722vjlp 1 tablet by mouth once dailycyproheptadine hydrochloride 4 mg oral tablet (20 sources)Start: 77-46-6534qrxhgrrpnpaypt (Periactin) 4 MG tablet Indications: Vertigo TAKE 1/2 TABLET AT BEDTIME 45 tablet 3 09/29/2024 ActiveStart: 93-41-2681famzyofgjakvyw (Periactin) 4 MG tablet Indications: Vertigo TAKE 1/2 TABLET AT BEDTIME 45 tablet 3 12/22/2023 Activedapagliflozin 10 mg oral tablet (5 sources)Sodium-Glucose Cotransporter 2 InhibitorStart: 64-82-4391ucjj 1 tablet by mouth once dailydextromethorphan hydrobromide 2 mg/ml / guaiFENesin 20 mg/ml oral suspension (5 sources)Uncompetitive E-fuiurx-J-aspartate Receptor Antagonist, Sigma-1 AgonistStart: 06-14-2025 End: 24-79-8505lvfe 5 mL by mouth every four hours for coughguaiFENesin- dextromethorphan (Robitussin DM) 100-10 MG/5ML syrup Indications: Acute non- recurrent sinusitis, unspecified location Take 5 mL by mouth every 4 (four) hours if needed for cough for up to10 days 118 mL 2 06/14/2025 06/22/2025 Discontinueddorzolamide 20 mg/ml / timolol 5 mg/ml ophthalmic solution (20 sources)Carbonic Anhydrase Inhibitor, beta-Adrenergic BlockerStart: 37-51-5923cyktnssafsj-timolol (Cosopt) 2-0.5 % ophthalmic solution INSTILL 1 DROP IN THE RIGHT EYE TWICE DAILY (patient needs appointment) 05/31/2025 Active Start: 55-26-8936lail 1 drop(s) into the eye(s) twice dailyStart: 80-30-8407rziu 1 drop(s) into the eye(s) twice dailyDorzolamide-Timolol Active 1 DROPS EYE- RIGHT 2 times daily May 08, 2022 11:00pm End: 24-79-6329zvgr 1 drop(s) into the eye(s) in the morningdorzolamide-timolol (Cosopt) 22.3-6.8 MG/ML ophthalmic solution Administer 1 drop into both eyes in the morning and 1 drop before bedtime. 07/04/2024 Discontinued (Other)take 1 drop(s) into the eye(s) twice dailyDorzolamide HCl-Timolol Mal 22.3-6.8 MG/ML 1 drop into affected eye Ophthalmic Twice a day Activefamotidine 20 mg oral tablet (4 sources)Histamine-2 Receptor AntagonistStart: 26-09-3607upkx 1 tablet by mouth twice dailyFreeStyle Marianne 2 [place] - (1 source)Start: 86-11-8517PphiNkzrh Marianne 2 [place] - as directed -- 5 x day for 365 days Sending to [facility] medical Aug, ActiveFreeStyle Marianne 2 Sensor - (1 source)Start: 66-60-9958JuxoVnlgu Marianne 2 Sensor - as directed in vitro q 14 days for 84 days Sending to [facility] medical Aug, Activefurosemide 20 mg oral tablet (20 sources)Loop DiureticStart: 09-20-2024 End: 33-00-1749cpxg 1 tablet by mouth once daily as neededfurosemide (Lasix) 20 MG tablet Indications: Bilateral leg edema Take 1 tablet (20 mg) by mouth Daily as needed (Swelling) 90 tablet 1 03/18/2025 ActiveStart: 81-39-7159sarbsVSKD (1 source)SulfonylureaGlucotrol ActivehydrALAZINE hydrochloride 25 mg oral tablet (5 sources)Arteriolar VasodilatorStart: 06-22-2025 End: 43-35-3238htpy 1 tablet by mouth in the morning, then take 1 tablet by mouth in the evening, then take 1 tablet by mouth at bedtimehydrALAZINE (Apresoline) 25 MG tablet Indications: Benign essential hypertension Take 1 tablet (25 mg) by mouth in the morning and 1 tablet (25 mg) in the evening and 1 tablet (25 mg) before bedtime.90 tablet 11 06/22/2025 06/22/2026 Active3 ml insulin glargine 100 unt/ml pen injector (20 sources)Insulin AnalogStart: 71-20-6189yffzwxo glargine (Lantus SoloStar) 100 UNIT/ML pen Indications: Diabetic peripheral neuropathy (HCC) , Type 2 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 gangrene, with long-term current use of insulin (HCC) Inject 30 Units under the skin in the morning. 15 mL 3 06/08/2025 ActiveStart: 10-13-2024 End: 80-08-6405ppnemkn glargine (Lantus SoloStar) 100 UNIT/ML pen Indications: Diabetic peripheral neuropathy (HCC) , Type 2 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 gangrene, with long-term current use of insulin (HCC) INJECT 30 UNITS SUBCUTANEOUSLY (UNDER THE SKIN) IN THE MORNING 15 mL 3 ActiveStart: 04-22-2024 End: 33-40-4469Erobdz SoloStar 100 UNIT/ML pen Indications: Diabetic peripheral neuropathy (CMS/HCC) , Type 2 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 gangrene, with long-term current use of insulin (CMS/HCC) INJECT 25 UNITS SUBCUTANEOUSLY (UNDER THE SKIN) IN THE MORNING 30 mL 3 09/20/2024 10/13/2024 Discontinued (Reorder)Start: 08-13-2023 End: 82-48-6294upleoh 25 [IU] by subcutaneous injection in the morning, then inject 25 [IU] by subcutaneous injection in the morning, then inject 20 [IU] by subcutaneous injection twice daily in the eveninginsulin glargine (Lantus SoloStar) 100 UNIT/ML pen Indications: Diabetic peripheral neuropathy (CMS/HCC) , Type 2 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 gangrene, with long-term current use of insulin (CMS/HCC) Inject 25 Units under the skin in the morning. INJECT 25 UNITS UNDER THE SKIN IN THE MORNING AND 20 UNITS IN THE EVENING (TWICE DAILY). 27 mL 3 04/19/2024 ActiveStart: 98-40-8267Meppq: 18-89-7114Pqbfoj SoloStar 100 UNIT/ML 25 am/18 pm units Subcutaneous bid CGM needed for titration December, Activelatanoprost 0.05 mg/ml ophthalmic solution (20 sources)Prostaglandin AnalogStart: 29-42-4682jivc 1 drop(s) into the eye(s) at bedtimelatanoprost (Xalatan) 0.005 % ophthalmic solution Administer 1 drop into both eyes at bedtime 08/22/2024 ActiveStart: 10-05-2023 End: 66-74-7837ewtn 1 drop(s) into the eye(s) at bedtimelatanoprost (Xalatan) 0.005 % ophthalmic solution Administer 1 drop into both eyes at bedtime 202307/04/2024 Discontinued (Other)levoFLOXacin 500 mg oral tablet (2 sources)Quinolone AntimicrobialStart: 06-22-2025 End: 78-20-3647lslh 1 tablet by mouth once dailylevoFLOXacin (Levaquin) 500 MG tablet Indications: Acute non-recurrent sinusitis, unspecified location Take 1 tablet (500 mg) by mouth Daily for 10 days 10 tablet 06/22/2025 07/02/2025 ActiveLORazepam 1 mg oral tablet (1 source)Benzodiazepinetake 1 tablet by mouth at bedtimeAtivan 1 MG 1 tablet Orally at hs Activelosartan potassium 50 mg oral tablet (20 sources)Angiotensin 2 Receptor BlockerStart: 12-20-2024 End: 51-16-2108ubwf 1 tablet by mouth twice dailylosartan (Cozaar) 50 MG tablet TAKE 1 TABLET BY MOUTH TWICE DAILY NIGHTLY 12/20/2024 05/19/2025 Discontinued (Side effects)Start: 05-30-2024 End: 41-55-7471wjoq 1 tablet by mouth in the morninglosartan (Cozaar) 50 MG tablet Indications: Benign essential hypertension (CMS/HCC) Take 1 tablet (50 mg) by mouth in the morning and 1 tablet (50 mg) before bedtime. 60 tablet 11 06/01/2024 10/17/2024 DiscontinuedStart: 05-09-2022 End: 08-97-4930Gbfylktm 50 mg tablet Discontinued MG May 09, 2022 12:00am May 09, 2022 3:23pmStart: 05-09-2022 End: 08-98-6884Uhknixkv Discontinued MG TABLET May 08, 2022 11:00pm May 09, 2022 2:23pm24 hr metFORMIN hydrochloride 500 mg extended release oral tablet (13 sources)BiguanideStart: 05-19-2025 End: 93-84-4971rrvf 2 tablets by mouth every twenty-four hours at mealtime metFORMIN XR (Glucophage-XR) 500 MG 24 hr tablet Indications: Type 2 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 gangrene, unspecified whether assisted insulin use (HCC) Take 2 tablets (1,000 mg) by mouth in the morning. Take with meals. Do not crush, chew, or split. 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 Take with meals. 100 tablet 3 02/22/2024 ActivemethylPREDNISolone (2 sources)CorticosteroidStart: 07-03-2025 End: 83-66-9843dtsyytUBCCUUDznffz (Medrol Dospak) 4 MG tablets Indications: Upper respiratory tract infection, unspecified type Follow schedule on package instructions 21 tablet 07/03/2025 07/10/2025 Xdfkbb72 hr metoprolol succinate 50 mg extended release oral tablet (8 sources)beta-Adrenergic BlockerStart: 88-55-4823ecqw 1 tablet by mouth once dailyStart: 05-09-2022 End: 89-48-5946mbpq 1 tablet by mouth every twenty-four hoursMetoprolol Succinate 50 mg tablet extended release 24 hr Discontinued MG PO May 09, 2022 12:00am May 09, 2022 10:42amStart: 05-09-2022 End: 13-41-8011Smwoyubbmb Succinate Discontinued MG PO May 08, 2022 11:00pm May 09, 2022 9:42ampantoprazole 40 mg delayed release oral tablet (20 sources)Proton Pump InhibitorStart: 01-18-2025 End: 02-33-3230cakx 1 tablet by mouth before mealtimepantoprazole (ProtoNix) 40 MG EC tablet Indications: Gastroesophageal reflux disease without esophagitis TAKE 1 TABLET BY MOUTH IN THE MORNING BEFORE MEALS. DO NOT CRUSH, CHEW, OR SPLIT 30 tablet 2 01/18/2025 03/16/2025 Discontinued (Therapy completed)Start: 09-20-2024 End: 78-30-3797xavp 1 tablet by mouth before mealtimepantoprazole (ProtoNix) 40 MG EC tablet Indications: Gastroesophageal reflux disease without esophagitis Take 1 tablet (40 mg) by mouth in the morning. Take before meals. Do not crush, chew, or split.. 30 tablet 2 10/13/2024 Activephenazopyridine hydrochloride 200 mg delayed release oral tablet (8 sources)Start: 03-16-2025 End: 35-64-9687piif 1 tablet by mouth three times daily as needed for muscle spasmsphenazopyridine (Pyridium) 200 MG tablet Indications: Acute cystitis with hematuria Take 1 tablet (200 mg) by mouth 3 (three) times a day as needed for bladder spasms for up to 2 days 6 tablet 03/16/2025 03/18/2025 ActiveStart: 04-19-2024 End: 97-86-3772smxn 1 tablet by mouth three times daily as needed for muscle spasmsphenazopyridine (Pyridium) 200 MG tablet Indications: Acute cystitis with hematuria Take 1 tablet (200 mg) by mouth 3 (three) times a day as needed for bladder spasms for up to 2 days 6 tablet 04/26/2024 04/28/2024 ActiverOPINIRole 0.25 mg oral tablet (4 sources)Nonergot Dopamine AgonistStart: 24-27-3532vhwd 1 tablet by mouth once dailysacubitril 97 mg / valsartan 103 mg oral tablet (20 sources)Angiotensin 2 Receptor BlockerStart: 11-14-2024 End: 52-83-1264enov 1 tablet by mouth in the morningsacubitril-valsartan (Entresto) 97-103 MG tablet Indications: Chronic systolic heart failure (HCC) T edwin 1 tablet by mouth in the morning and 1 tablet before bedtime. 60 tablet 11 11/14/2024 11/14/2025 ActiveStart: 54-08-8057ygmr 1 tablet by mouth twice daily End: 63-65-8534pqga 1 tablet by mouth in the morningsacubitril-valsartan (Entresto) 24-26 MG tablet Take 1 tablet by mouth in the morning and 1 tablet b efore bedtime. 06/08/2024 Discontinued (Other)ENTRESTO 24 mg/26 mg 1 orally twice a day Activespironolactone 50 mg oral tablet (20 sources)Aldosterone AntagonistStart: 10-04-2024 End: 50-01-6773iufozejfmlitto (Aldactone) 50 MG tablet Take 25 mg by mouth in the morning. 10/04/2024 10/04/2025 ActivetraZODone hydrochloride 50 mg oral tablet (20 sources)Serotonin Reuptake InhibitorStart: 09-05-2024 End: 96-99-3786qhhz 1 tablet by mouth at bedtime as needed for sleeptraZODone (Desyrel) 50 MG tablet Indications: Primary insomnia TAKE 1 TABLET BY MOUTH AT BEDTIME ASNEEDED for sleep 30 tablet 5 02/17/2025 Activezolpidem tartrate 10 mg oral tablet (1 source)gamma-Aminobutyric Acid-ergic Agonisttake 1 tablet by mouth every twenty-four hoursAmbien 10 MG 1 tablet at bedtime as needed Orally Once a day Active Completed/Discontinued Medications MedicationDrug Class(es)DatesSig (Normalized)Sig (Original)cloNIDine hydrochloride 0.1 mg oral tablet (20 sources)Central alpha-2 Adrenergic AgonistStart: 06-01-2024 End: 17-80-9641mvpi 1 tablet by mouth in the morningcloNIDine (Catapres) 0.1 MG tablet Indications: Benign essential hypertension (CMS/HCC) Take 1 tablet (0.1 mg) by mouth in the morning and 1 tablet (0.1 mg) before bedtime. 06/08/2024 10/13/2024 Discontinuedempagliflozin 10 mg oral tablet (2 sources)Sodium-Glucose Cotransporter 2 InhibitorStart: 12-30-2023 End: 31-57-1520wozm 1 tablet by mouth once dailyempagliflozin (Jardiance) 10 MG Indications: Type 2 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 gangrene, with long-term current use of insulin (CMS/HCC) Take 1 tablet (10 mg) by mouth Daily 30 tablet 11 12/30/2023 04/19/2024 Discontinued (Side effects)ofloxacin 3 mg/ml ophthalmic solution (12 sources)Quinolone AntimicrobialStart: 03-25-2024 End: 30-59-7260txci 1 drop(s) into the eye(s) four times dailyofloxacin (Ocuflox) 0.3 % ophthalmic solution instill 1 DROP IN THE RIGHT EYE FOUR TIMES DAILY 03/25/2024 07/04/2024 Discontinued (Other)potassium chloride 10 meq extended release oral tablet (12 sources)Start: 09-20-2024 End: 38-57-9573kxuo 1 tablet by mouth once daily as neededpotassium chloride CR (KLOR-CON) 10 MEQ ER tablet Indications: Bilateral leg edema Take 1 tablet (10 mEq) by mouth Daily as needed (Swelling) With Furosemide 90 tablet 3 09/20/2024 10/13/2024 DiscontinuedStart: 42-22-9141ggyl 1 tablet by mouth twice daily as neededprednisoLONE acetate 10 mg/ml ophthalmic suspension (20 sources)CorticosteroidStart: 03-25-2024 End: 99-94-1343lfga 1 drop(s) into the eye(s) four times dailyprednisoLONE acetate (Pred-Forte) 1 % ophthalmic suspension instill 1 DROP IN THE RIGHT EYE FOUR TIMES DAILY 03/25/2024 09/20/2024 Discontinued (Other) Problems Active Problems Problem ClassificationProblemDateDocumented DateEpisodic/ChronicAbdominal pain (12 sources)Epigastric pain; Translations: [Epigastric pain]Onset: 05-13-2022 68-68-8996MtctloshOzhmv myocardial infarction (20 sources)Myocardial infarction; Translations: [Non-ST elevation (NSTEMI) myocardial infarction]Onset: [id number]eovdx/social admission (3 sources)Dietary counseling and surveillance; Translations: [Patient encounter status]EpisodicChronic kidney disease (2 sources)Chronic kidney disease stage 3A ; Translations: [Chronic kidney disease, stage 3a (HCC) ([facility]/HCC)]34-18-6260IkstszwXnjlzqa kidney disease (1 source)Chronic kidney disease; Translations: [CHRONIC KIDNEY DISEASE STAGE 3A]Onset: 69-85-5080Pphzfqarnsz and hemorrhagic disorders (17 sources)Thrombocytopenic disorder; Translations: [Thrombocytopenia, unspecified]Onset: 233656-00-7120UyqhnnpAijxkofuqw disorders (20 sources)Heart block ; Translations: [Conduction disorder, unspecified]Onset: [id number] heart failure; nonhypertensive (20 sources)Unspecified systolic (congestive) heart failure; Translations: [Chronic systolic (congestive) heartfailure]Onset: 90-83-0660UggbumrLnyjeddg atherosclerosis and other heart disease (20 sources)Coronary arteriosclerosis; Translations: [Atherosclerotic heart disease of [place] coronary artery without angina pectoris]Onset: 09-08-2022 96-69-6303AibjeurGthhtmak mellitus with complications (20 sources)Hyperglycemia due to type 2 diabetes mellitus; Translations: [Type 2 diabetes mellitus with hyperglycemia]Onset: 44-11-1198JlprowfKpoyiyumj of lipid metabolism (20 sources)Hyperlipidemia; Translations: [Hyperlipidemia, unspecified]Onset: 120730-63-3552NyqvekoPyowysvzghhyhc and diverticulitis (20 sources)Diverticular disease of colon; Translations: [Diverticulosis of large intestine without perforationor abscess without bleeding]Onset: 01-27-2023 95-61-1515QgfmhssS Codes: Fall (1 source)Unspecified fall, initial encounter; Translations: [UNSPECIFIED FALL INITIAL ENCOUNTER]Onset: 80-57-3286LxhfypvlIlkwszsslq disorders (20 sources)Gastroesophageal reflux disease without esophagitis; Translations: [Gastro-esophageal reflux disease without esophagitis]Onset: 09-20-2024 87-20-9605NtuspjvZsimdrcsk hypertension (20 sources)Hypertensive disorder; Translations: [Essential (primary) hypertension]Onset: 617885-53-0322HeffgmbSgzcltsorutu with complications and secondary hypertension (20 sources)Hypertensive chronic kidney disease with stage 1 through stage 4 chronic kidney disease, or unspecified chronic kidney disease; Translations: [Hypertensive heart and chronic kidney disease with heartfailure and stage 1 through stage 4 chronic kidney disease, or unspecified chronic kidney disease] Onset: 742475-73-8377TraxjwvKuthyzccsbric and screening for infectious disease (4 sources)Patient encounter status; Translations: [Encounter for immunization] 97-34-9404PryetgwaKymxmlyhuh disorders (20 sources)Other primary ovarian failure; Translations: [Ovarian failure]Onset: 51-07-3356LowwyeeNunvmcrfwyjtg mental health disorders (4 sources)Primary insomnia; Translations: [Primary insomnia]98-98-8078Csuhkwr Nonspecific chest pain (5 sources)Other chest pain; Translations: [Chest pain, unspecified]Onset: 93-36-7775DxppdnhoFljuukwydah deficiencies (2 sources)Vitamin D deficiency; Translations: [Vitamin D deficiency, unspecified]ChronicOsteoporosis (1 source)Age-related osteoporosis without current pathological fracture; Translations: [AGE-REL OSTEOPOR W/OCURR PATH FX]Onset: 41-83-7314CasfewsEimcz aftercare (1 source)Long-term current use of insulin; Translations: [shelter (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 of insulin]EpisodicOther aftercare (1 source)shelter (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 of aspirin; Translations: [SKILLED NURSING CURRENT USE OF ASPIRIN]Onset: 45-78-3011JlvfoobcWbpkh aftercare (1 source)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; Translations: [OTH SKILLED NURSING CURRENT DRUG THERAPY]Onset: 37-28-9551CjazvbpzOqerz aftercare (1 source)shelter (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 of antithrombotics/antiplatelets; Translations: [SKILLED NURSING ANTITHROMBOT/ANTIPLATLETS]Onset: 34-70-5290Drwbjfhq Other endocrine disorders (4 sources)Other specified disorders of adrenal gland; Translations: [OTHER SPEC DISORDERS ADRENAL GLAND]Onset: 44-93-2800UevxtkdLckvk endocrine disorders (20 sources)Mass of left adrenal gland; Translations: [Other specified disorders of adrenal gland]Onset: 498451-81-5052VlpurtzEmleh gastrointestinal disorders (1 source)H/O: colitis; Translations: [Personal history of other diseases of the digestive system]EpisodicOther gastrointestinal disorders (2 sources)Diarrhea; Translations: [Diarrhea, unspecified]22-06-4896Wnzbnuyp Other hematologic conditions (3 sources)Raised cardiac enzyme or marker; Translations: [Other specified abnormalities of plasma proteins]46-79-7509EslvmutbCrace hematologic conditions (2 sources)Other specified abnormalities of plasma proteins; Translations: [Other abnormal blood chemistry]33-50-5393FfbyggqtNnwmb hereditary and degenerative nervous system conditions (20 sources)Restless legs; Translations: [Restless legs syndrome]Onset: 023334-11-2127JbpvbayLctop injuries and conditions due to external causes (1 source)Unspecified injury of head, initial encounter; Translations: [UNSPECIFIED INJURY HEAD INITIAL ENC]Onset: 06-09-4252IwcqmifyFcjmr lower respiratory disease (1 source)Shortness of breath; Translations: [SHORTNESS OF BREATH]Onset: 96-57-7552QvywtthhUlhzb lower respiratory disease (2 sources)Mdbsnbqiftd-lhvmbcgsbb-gesgpy inhibitor adverse reaction; Translations: [CALI-inhibitor cough]79-99-7704IcvkbdjnWawjk screening for suspected conditions (not mental disorders or infectious disease) (6 sources)Abnormal result of other cardiovascular function study; Translations: [Abnormal electrocardiogram [ECG] [EKG]]Onset: 85-55-9677CyofeuhxIffhh skin disorders (1 source)Localized swelling, mass and lump, lower limb, bilateral; Translations: [LOC SWELL MASS LUMP LOW LIMB MIKE]Onset: 73-32-2530YdthfeaqMjhjf upper respiratory infections (6 sources)Acute sinusitis; Translations: [Acute sinusitis, unspecified] 81-21-2107TuhfugjaYmvcalgcfd and visceral atherosclerosis (20 sources)Renal artery stenosis; Translations: [Atherosclerosis of renal artery]Onset: 224368-37-0810LnnjgyqEosqswsvcat; intervertebral disc disorders; other back problems (2 sources)Acute low back pain; Translations: [Acute bilateral low back pain without sciatica]25-09-0297GfujyhhyRjlxqpjym cerebral ischemia (2 sources)Transient cerebral ischemia; Translations: [Transient cerebral ischemic attack, unspecified]58-64-4367PpabzbwHnsanxrmpngh (1 source)CHRN KIDNEY DISEASE STG 3 UNSP; Translations: [CHRN KIDNEY DISEASE STG 3 UNSP]Onset: 53-69-0600Knzmpnohfzye (1 source)CONTACT W/AND (SUSP) EXPOS COVID-19; Translations: [CONTACT W/AND (SUSP) EXPOS COVID-19]Onset: 37-77-9386Ciclylx tract infections (7 sources)Urinary tract infection, site not specified; Translations: [Acute cystitis]Onset: 596065-62-1921Zhyvnabx Past or Other Problems Problem ClassificationProblemDateDocumented DateEpisodic/ChronicCardiac dysrhythmias (20 sources)Palpitations; Translations: [Palpitations]Onset: 03-53-7212Hdjsqorn Conditions associated with dizziness or vertigo (20 sources)Dizziness and giddiness; Translations: [Vertigo of central origin] Onset: 36-07-3039AiankwfbZociemoj atherosclerosis and other heart disease (20 sources)Presence of coronary angioplasty implant and graft; Translations: [Percutaneous transluminal coronary angioplasty status]Onset: 05-13-2022 96-46-3940QritjytdEyveazby mellitus without complication (20 sources)Diabetes mellitus; Translations: [Type 2 diabetes mellitus without complications]Onset: 08-01-2022 Resolved: 497110-20-5042RcndgbeMvmwboqjmzqrw symptoms and ill-defined conditions (2 sources)Dysuria; Translations: [Dysuria]50-46-9676YukxuxvcMkrel aftercare (4 sources)shelter (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 of insulin; Translations: [SKILLED NURSING CURRENT USE OF INSULIN]Onset: 72-90-5580YtaupmfqDnztu lower respiratory disease (1 source)Dyspnea, unspecified; Translations: [DYSPNEA UNSPECIFIED]Onset: 91-93-9846MufiqzekAvapb nervous system disorders (20 sources)Abnormal gait; Translations: [Unspecified abnormalities of gait and mobility]Onset: 127033-78-9191EdlzhtblUxgki nervous system disorders (20 sources)Ataxia; Translations: [Ataxia, unspecified]Onset: 01-27-2023 84-71-8060WcbukkjpMawet nervous system disorders (20 sources)Skin sensation disturbance; Translations: [Unspecified disturbances of skin sensation]Onset: 250982-97-5871OrzjyczsSehkxvpf codes; unclassified (20 sources)Insomnia; Translations: [Insomnia, unspecified]Onset: 01-27-2023 15-96-0428NiajmpuiVmfwshza codes; unclassified (20 sources)Non-smoker; Translations: [Other specified health status]Onset: 068647-30-3806KeyyopveBxhthuhw codes; unclassified (20 sources)Bilateral lower limb edema; Translations: [Localized edema]Onset: 069793-83-7018Fsuyuqse Results Test NameValueInterpretationReference RangeFacilityUrine Cultureon 06-06-2025 Bacteria identified Cx Nom (U)20,000 colonies/ml mixed bacterial skin contaminants 2 Days PERFORMED BY: [facility] [address] [place] [address] PATHOLOGIST GEOCHEMICAL MANAGER GUY ALEGRIA M.D.NormalLake City Va Medical Center Physician GroupComment on above: Performed By: #### CUU #### [facility] [address] [id number] USALaboratory - Hematology and Cell countson 06-11-0782YmH0e (Bld) [Mass fraction]5.8 %NOMS HealthcareNo Panel Informationon 68-53-5138NJWX HealthcareOrders Onlyon 65-80-8785Qmzpxi [id number] Tere Hartmann 1940 F Date Provider Department Center 05/19/2025 FRANCISCO MELISSA [facility] Family History Problem Relation Age of Onset Hypertension Mother Coronary artery disease Mother Coronary artery disease Father Hypertension Father Hypertension Sister Coronary artery disease Brother Family Status - Relation Status Age at Mother Father Sister Brother DeceasedNormalUniWyandot Memorial Hospital36on Patient called back. She is only taking lasix prn, about once every 2 weeks she says. Says she gets dizzy when she stands up, but she's learned how to stop herself and go slow. Says she feels better.NormalUnBellevue HospitalNo Panel Informationon 17-32-1938OOPLEEVYQNQUUN EPIDERMIDIS, HAEMOLYTICUS, LUGDUNENSIS, SAPROPHYTICUS (QBSXE6MTPC HealthcareSTAPHYLOCOCCUS EPIDERMIDIS, HAEMOLYTICUS, LUGDUNENSIS, SAPROPHYTICUS (URINANot detectedNOMS Healthcare URINARY TRACT INFECTION (HTRX)on 52-81-4096BNVOJPROWRUIA ALKBIDFR4INFO HealthcareACINETOBACTER BAUMANIINot detectedNOMS HealthcareCANDIDA ALBICANS, PARAPSILOSIS, WXOLYHVZBF5FOSJ HealthcareCANDIDA ALBICANS, PARAPSILOSIS, TROPICALISNot detectedNOMS HealthcareCANDIDA EODNOHXR9ZGSP HealthcareCANDIDA GLABRATANot detectedNOMS HealthcareCANDIDA SKPGAS6MZMM HealthcareCANDIDA KRUSEI Not detectedNOMS HealthcareCITROBACTER LHZUIVYN1VJYF HealthcareCITROBACTER FREUNDIINot detectedNOMS HealthcareENTEROBACTER AEROGENES, JRJEOOS11.532Abnormal NOMS HealthcareENTEROBACTER AEROGENES, CLOACAEDetectedAbnormalNOMS Healthcare ENTEROCOCCUS FAECALIS, KYAFJKC1XSDR HealthcareENTEROCOCCUS FAECALIS, FAECIUMNot detectedNOMS HealthcareESCHERICHIA COLI24.541AbnormalNOMS HealthcareESCHERICHIA COLIDetectedAbnormalNOMS HealthcareInterpretation and review of laboratory resultsAbnormalNOMS HealthcareKLEBSIELLA PNEUMONIAE, QSKAGYD3KPQB Healthcare KLEBSIELLA PNEUMONIAE, OXYTOCANot detectedNOMS HealthcareMORGANELLA MORGANII0 NOMS HealthcareMORGANELLA MORGANIINot detectedNOMS HealthcarePROTEUS MIRABILIS, APZCNVAG1ZKXE HealthcarePROTEUS MIRABILIS, VULGARISNot detectedNOMS Healthcare PSEUDOMONAS NKWEWHUFSU2AAWD HealthcarePSEUDOMONAS AERUGINOSANot detectedNOMS HealthcareSERRATIA AMTASRGWXA4CHAA HealthcareSERRATIA MARCESCENSNot detectedNOMS HealthcareSTAPHYLOCOCCUS QYMQLC6BZZV HealthcareSTAPHYLOCOCCUS AUREUSNot detected NOMS HealthcareSTREPTOCOCCUS AGALACTIAE (GROUP B STREP)0[facility] Healthcare STREPTOCOCCUS AGALACTIAE (GROUP B STREP)Not detectedNOMS HealthcareSTREPTOCOCCUS PYOGENES (GROUP A STREP)0NOMS HealthcareSTREPTOCOCCUS PYOGENES (GROUP A STREP) Not detectedNOMS HealthcareTET B, TET M25.794AbnormalNOMS HealthcareTET B, TET M DetectedAbnormalNOMS HealthcareNOMS HealthcareUrinalysis macro (dipstick) panel (U)on 15-20-2557Siaqcgsgr, UANegativeNegative - 4(70) +++ mg/dLNOMS Healthcare Blood, UAPositiveNegative - 50 Ky/mcLNOMS HealthcareComment on above:trace nonhemGlucose, UANegativeNegative - 2000(110) ++++ mg/dLNOMS Healthcare Interpretation and review of laboratory resultsAbnormalNOMS HealthcareKetones, UANegativeNegative - 160(16) ++++ mg/dLNOMS HealthcareLeukocytes, UAModerate Negative - 500+++ Melinda/mcLNOMS HealthcareNitrite, UANegativeNegative - Positive NOMS HealthcarepH, UA6.55 - 9NOMS HealthcareProtein, UANegativeNegative - 2000(20) ++++ mg/dLNOVA HealthcareSpec Grav, UA1.0051 - 1.03N[facility] Healthcare Urobilinogen, UA0.20.2 - 12 mg/dLNOCedar County Memorial HospitalNOVA Ihhkqrwbid21yj Regarding labs from 01/31/2025: Luc Pennington MD to Mi 02/12/25 5:34 PM Result Note Very good lipids. Continue current management and recheck in 6 months. BMP is stable. Continue current management. Spoke with patient and informed her of lab results per Dr. Pennington. She verbalized understanding.NormalUniversity Hospitals Lake West Medical CenterResults Follow-Upon 76-32-8928Mjscgkn Follow-[id number] Tere Hartmann 1940 F Date Provider Department Center 02/12/2025 [id number] PENNINGTON INA [place] [facility] Family History Problem Relation Age of Onset Hypertension Mother Coronary artery disease Mother Coronary artery disease Father Hypertension Father Hypertension Sister Coronary artery disease Brother Family Status - Relation Status Age at Mother Father Sister Brother DeceasedNormalUniversCleveland ClinicALL BASIC METABOLIC PANELon 31-01-4259Ihyvn gap [Moles/Vol]14.8 mmol/LNOMS HealthcareCalcium [Mass/Vol]9.3 mg/dL8.5 - 10.1 mg/dLNOVA HealthcareChloride [Moles/Vol]105 mmol/L 98 - 107 mmol/LNOMS HealthcareCO2 [Moles/Vol]24.2 mmol/L21.0 - 32.0 mmol/LNOMS HealthcareCreatinine [Mass/Vol]1.12 mg/dLHigh0.55 - 1.02 mg/dLNOCedar County Memorial Hospital GFR/1.73 sq M.predicted CKD-EPI (S/P/Bld) [Vol rate/Area]56Low>=60 mL/min/1.73m 2NOMS HealthcareGlucose [Mass/Vol]138 mg/nLArrv74 - 106 mg/dLNOVA Healthcare Potassium [Moles/Vol]5 mmol/L3.5 - 5.1 mmol/LNOMS HealthcareSodium [Moles/Vol] 139 mmol/L136 - 145 mmol/LNOMS HealthcareTBH EGFR-NON AF ZKKLPVKN56Fcm>=60 mL/min/1.73m 2NOMS HealthcareUrea nitrogen [Mass/Vol]23 mg/dLHigh7.0 - 18.0 mg/dLNOMS HealthcareUrea nitrogen/Creatinine [Mass ratio]20.5 mg/mgNOMS HealthcareALL LIPID PROFILE (FASTING)on 99-91-8699NQXY HDL RATIO2.1NOMS HealthcareComment on above:3.3 - 4.4 LOW RISK 4.4 - 7.1 AVERAGE RISK 7.1 - 11.0 MODERATE RISK >11.0 HIGH RISK Cholesterol [Mass/Vol]81 mg/dLNINF - 200 mg/dLNOVA HealthcareCholesterol in HDL [Mass/Vol]38 mg/dLLow40 - 60 mg/dLNOVA HealthcareComment on above:> or =60 mg/dl - LOW CARDIOVASCULAR RISK <40 mg/dl - HIGH CARDIOVASCULAR RISK Magnesium [Mass/Vol]33 mg/dLNOVA HealthcareComment on above:<100 mg/dl OPTIMAL 100-129 mg/dl NEAR OR ABOVE OPTIMAL 130-159 mg/dl BORDERLINE HIGH 160-189 mg/dl HIGH >190 mg/dl VERY HIGH Magnesium [Mass/Vol]10.4 mg/dLNOVA HealthcareTriglyceride [Mass/Vol]52 mg/dLNINF - 150 mg/dLNOVA HealthcareCCF Yury 45-90-1309SQA [Catalytic activity/Vol]21 U/L14 - 59 U/LNOKLAHOMA SPINE HOSPITAL – [place] HealthcareCCF [place] 73-01-7549KLU [Catalytic activity/Vol]15 U/L15 - 37 U/LNOMS HealthcareNo Panel Informationon 97-22-9084Aidilxbjnzxwdb and review of laboratory resultsAbnormalNOVA HealthcareCLINISYNCNOKLAHOMA SPINE HOSPITAL – [place] Healthcare Orders Onlyon 84-02-9386Zjfrss [id number] Tere Hartmann 1940 F Date Provider Department Center 01/31/2025 [id number], HISTORICAL CARD [facility] Family History Problem Relation Age of Onset Hypertension Mother Coronary artery disease Mother Coronary artery disease Father Hypertension Father Hypertension Sister Coronary artery disease Brother Family Status - Relation Status Age at Mother Father Sister Brother DeceasedNormalUniversity of Texas Health [facility] Fort WorthLaboratory - Hematology and Cell countson 68-55-6661MxZ7o (Bld) [Mass fraction]6.3 %NOMS HealthcareNo Panel Informationon 34-80-5876QDTG HealthcareOffice Visiton 46-41-2107Camxge-up [id number] Tere Hartmann 1940 F Date Provider Department Center 12/30/2024 [id number] VIEIRA INA [facility] Family History Problem Relation Age of Onset Hypertension Mother Coronary artery disease Mother Coronary artery disease Father Hypertension Father Hypertension Sister Coronary artery disease Brother Family Status - Relation Status Age at Mother Father Sister Brother Level of Service:88643 DC OFFICE/OUTPATIENT ESTABLISHED MOD MDM 30 MIN Reason for Visit and Comments: Coronary Artery Disease [187] 3 month follow up [Other] Hyperlipidemia [182] Hypertension [129765] Pacemaker Check [337] Palpitations [220341][facility]on Dr. Pennington made note that Entresto is listed in her allergies as an intolerance due to hypertension. I spoke with patient and she said her BP and blood sugars have been running very good and she's feeling good. I told her we could give her samples of Entresto and asked that she have the labs done that Dr. Pennington ordered. Patient verbalized understanding.[facility] RehabilitationALL BASIC METABOLIC PANELon 13-68-8833Pphgt gap [Moles/Vol]13 mmol/LNOMS HealthcareCalcium [Mass/Vol]9.1 mg/dL8.5 - 10.1 mg/dLNOMS HealthcareChloride [Moles/Vol]103 mmol/L98 - 107 mmol/LNOMS HealthcareCO2 [Moles/Vol]29 mmol/L21.0 - 32.0 mmol/LNOMS HealthcareCreatinine [Mass/Vol]1.41 mg/dLHigh0.55 - 1.02 mg/dL NOMS HealthcareGFR/1.73 sq M.predicted CKD-EPI (S/P/Bld) [Vol rate/Area]43Low >=60 mL/min/1.73m 2NOMS HealthcareGlucose [Mass/Vol]98 mg/dL74 - 106 mg/dLNOMS HealthcareInterpretation and review of laboratory resultsAbnormalNOMS Healthcare Potassium [Moles/Vol]5 mmol/L3.5 - 5.1 mmol/LNOMS HealthcareSodium [Moles/Vol] 140 mmol/L136 - 145 mmol/LNOMS HealthcareTBH EGFR-NON AF YRVODTEB06Bfk>=60 mL/min/1.73m 2NOMS HealthcareUrea nitrogen [Mass/Vol]19 mg/dLHigh7.0 - 18.0 mg/dLNOVA HealthcareUrea nitrogen/Creatinine [Mass ratio]13.5 mg/mgNOVA HealthcareCLINISYNCNOMS Etzrawgiwy99uc 73-92-505942Zfwyzwl called requesting samples of Entresto. After reviewing her chart, we don't have her taking it anymore. We have her on losartan. She said her PCP recently restarted Entresto and stopped losartan. Patient said she feels good. She's been taking Entresto 24/26mg bid. Can I give her samples of this? Please advise. Thanks.NormalUniversity Hospitals Lake West Medical Center36on 32-94-275137Jv feeling betterNormalUniversity of Texas Health Harris [facility] Hospital Fort WorthLaboratory - Hematology and Cell countson 15-76-5639CuI0b (Bld) [Mass fraction]8.2 %NOMS HealthcareNo Panel Informationon 16-46-2062EUEV HealthcareALL BASIC METABOLIC PANELon 75-93-5836Krhwp gap [Moles/Vol]10.6 mmol/LNOMS HealthcareCalcium [Mass/Vol]9.1 mg/dL8.5 - 10.1 mg/dLNOVA HealthcareChloride [Moles/Vol]100 mmol/L98 - 107 mmol/LNOMS HealthcareCO2 [Moles/Vol]25.8 mmol/L21.0 - 32.0 mmol/LNOMS Healthcare Creatinine [Mass/Vol]1.32 mg/dLHigh0.55 - 1.02 mg/dLNOVA HealthcareGFR/1.73 sq M.predicted CKD-EPI (S/P/Bld) [Vol rate/Area]46Low>=60 mL/min/1.73m 2NOMS HealthcareGlucose [Mass/Vol]226 mg/cCObsf27 - 106 mg/dLNOVA Healthcare Interpretation and review of laboratory resultsAbnormalNOVA HealthcarePotassium [Moles/Vol]5.4 mmol/LHigh3.5 - 5.1 mmol/LNOMS HealthcareSodium [Moles/Vol]131 mmol/JBmc009 - 145 mmol/LNOMS HealthcareTBH EGFR-NON AF OPBTMEZT99Xkb>=60 mL/min/1.73m 2NOMS HealthcareUrea nitrogen [Mass/Vol]21 mg/dLHigh7.0 - 18.0 mg/dLNOMS HealthcareUrea nitrogen/Creatinine [Mass ratio]15.9 mg/mgNOMS HealthcareCLINISYNCNOMS Yonfvgeixl00wa 21-91-794698Odtxxctiu lab results from 10/10/2024: MD Lizbet Carlos MA BMP is good after starting Aldactone but potassium is little bit on the high side. Make sure that she does not take potassium even when she has to take Lasix. Recheck BMP in about 3 weeks. Spoke with patient and made her aware to stop potassium. She verbalized understanding and will have repeat labs in a few weeks. [facility] HospitalB TYPE NATRIURETIC PEPTIDE (BNP)on 10-13-2024 Natriuretic peptide B (Bld) [Mass/Vol]95 pg/mLNormal<100Quest DiagnosticsComment on above:Order Comment: SPLIT 10/12/2024 FROM [id number] Comment: BNP levels increase with age in the general population with the highest values seen in individuals greater than 75 years of age. Reference: J. Am. Radha. Cardiol. 2002; 40:976-982.Performed By: #### [id number] #### [facility] [address], [address] [place] [phone] Mail Delivery Supervisor: Ganesh Macdonald MDMT. [facility] METABOLIC PANELon 50-03-3379Spbgpfq [Mass/Vol]9.9 mg/dLNormal8.6-10.4Quest DiagnosticsComment on above:Order Comment: MULTIPLE COLLECTION TIMES FOR SAME TEST TYPE.Performed By: #### [id number] #### [facility] [place] [address] Mail Delivery Supervisor: Monique DimasiChloride [Moles/Vol]102 mmol/XEkctzo50-760 Quest DiagnosticsComment on above:Order Comment: MULTIPLE COLLECTION TIMES FOR SAME TEST TYPE.Performed By: #### [id number] #### [facility] [address] [place] [address] Mail Delivery Supervisor: Monique Brice FlatiCO2 [Moles/Vol]30 mmol/ICpctny41-25Akmrr DiagnosticsComment on above:Order Comment: MULTIPLE COLLECTION TIMES FOR SAME TEST TYPE.Performed By: #### [id number] #### [facility] [address] [place] [phone] Mail Delivery Supervisor: Monique Brice FlatiCreatinine [Mass/Vol]1.15 mg/dLHigh0.60-0.95 Quest DiagnosticsComment on above:Order Comment: MULTIPLE COLLECTION TIMES FOR SAME TEST TYPE.Performed By: #### [id number] #### [facility] [address] [place] [phone] Mail Delivery Supervisor: Monique DimasiGFR/1.73 sq M.predicted among non-blacks MDRD (S/P/Bld) [Vol rate/Area]47 mL/min/{1.73_m2}Low> OR = 60Quest DiagnosticsComment on above:Order Comment: MULTIPLE COLLECTION TIMES FOR SAME TEST TYPE.Performed By: #### [id number] #### [facility] [address] [place] [phone] Mail Delivery Supervisor: Monique Brice FlatiGlucose [Mass/Vol]326 mg/bUOyau90-45Nqruq DiagnosticsComment on above:Order Comment: MULTIPLE COLLECTION TIMES FOR SAME TEST TYPE.Result Comment: Fasting reference interval For someone without known diabetes, a glucose value >125 mg/dL indicates that they may have diabetes and this should be confirmed with a follow-up test.Performed By: #### [id number] #### [facility] [address] [place] [phone] Mail Delivery Supervisor: Monique Brice FlatiPotassium [Moles/Vol]4.5 mmol/LNormal3.5-5.3 Quest DiagnosticsComment on above:Order Comment: MULTIPLE COLLECTION TIMES FOR SAME TEST TYPE.Performed By: #### [id number] #### [facility] [address] [place] [phone] Mail Delivery Supervisor: Monique Brice FlatiSodium [Moles/Vol]138 mmol/KDwqxds118-898Vvkfl DiagnosticsComment on above:Order Comment: MULTIPLE COLLECTION TIMES FOR SAME TEST TYPE.Performed By: #### [id number] #### [facility] [place] [address] Mail Delivery Supervisor: Monique Brice FlatiUrea nitrogen [Mass/Vol]19 mg/dLNormal7-25 [facility] DiagnosticsComment on above:Order Comment: MULTIPLE COLLECTION TIMES FOR SAME TEST TYPE.Performed By: #### [id number] #### [facility] [address] [place] [phone] Mail Delivery Supervisor: Monique Brice FlatiUrea nitrogen/Creatinine [Mass ratio]17 mg/mg Normal6-22Quest DiagnosticsComment on above:Order Comment: MULTIPLE COLLECTION TIMES FOR SAME TEST TYPE.Performed By: #### [id number] #### [facility] [address] [place] [phone] Mail Delivery Supervisor: Monique DimasiALL BASIC METABOLIC PANELon 85-18-2926Isows gap [Moles/Vol]12.8 mmol/LNOMS HealthcareCalcium [Mass/Vol]9.4 mg/dL8.5 - 10.1 mg/dLNOMS HealthcareChloride [Moles/Vol]99 mmol/L98 - 107 mmol/LNOMS Healthcare CO2 [Moles/Vol]29.9 mmol/L21.0 - 32.0 mmol/LNOMS HealthcareCreatinine [Mass/Vol] 1.33 mg/dLHigh0.55 - 1.02 mg/dLNOMS HealthcareGFR/1.73 sq M.predicted CKD-EPI (S/P/Bld) [Vol rate/Area]46Low>=60 mL/min/1.73m 2NOMS HealthcareGlucose [Mass/Vol]325 mg/rGEahx52 - 106 mg/dLNOMS HealthcareInterpretation and review of laboratory resultsAbnormalNOMS HealthcarePotassium [Moles/Vol]4.7 mmol/L3.5 - 5.1 mmol/LNOMS HealthcareSodium [Moles/Vol]137 mmol/L136 - 145 mmol/LNOMS HealthcareTBH EGFR-NON AF GEGAPQPR29Ugg>=60 mL/min/1.73m 2NOMS HealthcareUrea nitrogen [Mass/Vol]25 mg/dLHigh7.0 - 18.0 mg/dLNOMS HealthcareUrea nitrogen/Creatinine [Mass ratio]18.8 mg/mgNOMS HealthcareCLINISYNCNOMS HealthcareOffice Visiton 16-77-8902Plvkea-up [id number] Tere Hartmann Marcy 1940 Provider Department Center 10/04/2024 LUC HARDEN Family History Problem Relation Age of Onset Hypertension Mother Coronary artery disease Mother Coronary artery disease Father Hypertension Father Hypertension Sister Coronary artery disease Brother Family Status - Relation Status Age at Mother Father Sister Brother Level of Service:62051 DC OFFICE/OUTPATIENT ESTABLISHED MOD MDM 30 MIN Reason for Visit and Comments: Congestive Heart Failure [127] - PCP gave her RX a few weeks ago for PRN lasix and potassium. She's taken them a few times and says her LE edema is improving. Coronary Artery Disease [187] Palpitations [282389] - Improving Hypertension [476212] - Clonidine was increased to twice daily [...] Hyperlipidemia [182] - Had lipids in Jul 2024.[facility]36on [id number] has been informed and prescription sent to pharmacy per requestNormalUniWyandot [facility] Hospital36on Patient states that she is having horrible dry mouth at night and the clonidine she is taking is causing it, Patient would like to know if their is an alternative she can try to reduce her dry mouth issues at night. Please advise [facility] RehabilitationTelephoneon [phone] Gracie Hartmannbrian Vidal 1940 Provider Department Center 09/20/2024 LUC HARDEN Family History Problem Relation Age of Onset Hypertension Mother Coronary artery disease Mother Coronary artery disease Father Hypertension Father Hypertension Sister Coronary artery disease Brother Family Status - Relation Status Age at Mother Father Sister BrotherNormalUniWyandot Memorial HospitalLaboratory - Hematology and Cell countson 06-56-2995CbS2d (Bld) [Mass fraction]7.6 %NOMS HealthcareNo Panel Informationon [id number] HealthcareALL LIPID PROFILE (FASTING)on 08-29-2024 CHOL HDL RATIO2.6NOVA HealthcareComment on above:3.3 - 4.4 LOW RISK 4.4 - 7.1 AVERAGE RISK 7.1 - 11.0 MODERATE RISK >11.0 HIGH RISK Cholesterol [Mass/Vol]114 mg/dLNINF - 200 mg/dLNOVA HealthcareCholesterol in HDL [Mass/Vol]44 mg/dL40 - 60 mg/dLNOVA HealthcareComment on above:> or =60 mg/dl - LOW CARDIOVASCULAR RISK <40 mg/dl - HIGH CARDIOVASCULAR RISK Magnesium [Mass/Vol]49.4 mg/dLNOVA HealthcareComment on above:<100 mg/dl OPTIMAL 100-129 mg/dl NEAR OR ABOVE OPTIMAL 130-159 mg/dl BORDERLINE HIGH 160-189 mg/dl HIGH >190 mg/dl VERY HIGH Magnesium [Mass/Vol]20.6 mg/dLNOVA HealthcareTriglyceride [Mass/Vol]103 mg/dL NINF - 150 mg/dLNOVA HealthcareCCF Yury 26-95-4298SAM [Catalytic activity/Vol] 22 U/L14 - 59 U/LNOMS HealthcareCCF [place] 62-24-2740BLE [Catalytic activity/Vol] 17 U/L15 - 37 U/LNOMS HealthcareNo Panel Informationon 65-31-8411ILTKGVPWJPRPN HealthcareOffice Visiton 08-09-8935Xsbsey-up [id number] Tere Hartmann 1940 F Date Provider Department Center 08/08/2024 [id number] Family History Problem Relation Age of Onset Hypertension Mother Coronary artery disease Mother Coronary artery disease Father Hypertension Father Hypertension Sister Coronary artery disease Brother Family Status - Relation Status Age at Mother Father Sister Brother Level of Service:23527 DC OFFICE/OUTPATIENT ESTABLISHED MOD MDM 30 MIN Reason for Visit and Comments: Palpitations [372579] - Follow up Holter monitor. Says Benadryl did not help her sleep. She sees PCP in a few days to discuss sleeping aid. Only feels palpitations at night, waking her up. 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 Family History Problem Relation Age of Onset Hypertension Mother Coronary artery disease Mother Coronary artery disease Father Hypertension Father Hypertension Sister Coronary artery disease Brother Family Status - Relation Status Age at Mother Father Sister Brother Level of Service:90737 DC OFFICE/OUTPATIENT ESTABLISHED MOD MDM 30 [facility]36on [phone] calling with reports of high blood pressure. She's already taken carvedilol (12.5mg), clonidine (0.1mg), and losartan (50mg) this morning and checked her BP twice after waiting awhile. 170/89 and 177/95 is what she got. Says she feels fuzzy but better than last night. HR is 60. Any suggestions? Please advise. Thanks.[facility]36on Patient called with complaints of hypertension. This morning her blood pressure was 200/98 with blurred vision. After taking Clonidine blood pressure went down to 156/78. Her blurry vision has improved. I encouraged patient to go to ED if her blood pressure increases. She agrees. Sandy Morrison, [facility] CenterOffice Visiton [id number]-up [id number] Tere Hartmann 1940 F Date Provider Department Center 06/15/2024 [facility] Family History Problem Relation Age of Onset Hypertension Mother Coronary artery disease Mother Coronary artery disease Father Hypertension Father Hypertension Sister Coronary artery disease Brother Family Status - Relation Status Age at Mother Father Sister Brother Level of Service:83354 DC OFFICE/OUTPATIENT ESTABLISHED LOW MDM 20 [facility] [id number]-up visit [id number] Tere Hartmann 1940 F Date Provider Department Center 06/02/2024 TAYLOR WEBER Family History Problem Relation Age of Onset Hypertension Mother Coronary artery disease Mother Coronary artery disease Father Hypertension Father Hypertension Sister Coronary artery disease Brother Family Status - Relation Status Age at Mother Father Sister Brother Level of Service:36380 DC OFFICE/OUTPATIENT ESTABLISHED LOW MDM 20 MINNoal [facility] CenterLabor[facility] - Hematology and Cell countson 12-73-5188AfX3n (Bld) [Mass fraction]6.8 %NOMS HealthcareNo Panel Informationon 76-50-0524STXM HealthcareUrinalysis macro (dipstick) panel (U)on 05-05-2024 Bilirubin, UANegativeNegative - 4(70) +++ mg/dLNOMS HealthcareBlood, UAPositive Negative - 50 Ky/mcLNOMS HealthcareClarity, UACloudyNOMS HealthcareColor, UA YellowNOMS HealthcareGlucose, UANegativeNegative - 2000(110) ++++ mg/dLNOMS HealthcareKetones, UANegativeNegative - 160(16) ++++ mg/dLNOMS Healthcare Leukocytes, UAPositiveNegative - 500+++ Melinda/mcLNOMS HealthcareNitrite, UA NegativeNegative - PositiveNOMS HealthcarepH, UA5.05 - 9NOMS HealthcareProtein, UANegativeNegative - 2000(20) ++++ mg/dLNOMS HealthcareSpec Grav, UA1.0001 - 1.03NOMS HealthcareUrobilinogen, UA0.20.2 - 12 mg/dLNOMS HealthcareNOMS HealthcareUrinalysis macro (dipstick) panel (U)on 33-12-9720Fltdcccbo, UA NegativeNegative - 4(70) +++ mg/dLNOMS HealthcareBlood, UAPositiveNegative - 50 Ky/mcLNOMS HealthcareComment on above:Trace Non-HemolyzedClarity, UAClearNOMS HealthcareColor, UALight YellowNOMS HealthcareGlucose, UA4+Negative - 2000(110) ++++ mg/dLNOMS HealthcareInterpretation and review of laboratory resultsAbnormal NOMS HealthcareKetones, UANegativeNegative - 160(16) ++++ mg/dLNOVA Healthcare Leukocytes, UAModerateNegative - 500+++ Melinda/mcLNOVA HealthcareNitrite, UA NegativeNegative - PositiveNOMS HealthcarepH, UA6.05 - 9NOMS HealthcareProtein, UANegativeNegative - 2000(20) ++++ mg/dLNOVA HealthcareSpec Grav, UA1.0051 - 1.03NOMS HealthcareUrobilinogen, UA0.20.2 - 12 mg/dLNOVA HealthcareNOMS HealthcareOutside Recordson 08-63-9929Etjrcpm Records [id number]#1.00CD:[address] [place], [place] [address]Physician Orderon 06-65-9098Zirmwpvpy Order [id number]#1.00CD:[address] [place], [place] [address]BNPon 47-13-2865Nfwhvfnskuw peptide B (Bld) [Mass/Vol]703.0 pg/mLNormal <=1,800.0The [facility] HospitalComment on above:Performed By: #### CVDTBH #### [facility] [address] [place] [address] Dr. Kesha Hernandez AUTO DIFFon 92-07-5239ZSVU #0.0 103/ulNormal0.0-0.1The [facility] HospitalComment on above:Performed By: #### DDIM #### [facility] [address] [place] [address] Dr. Kesha Cespedesphils/100 WBC (Bld)0.5 %Normal0.2-2.0The [facility] Comment on above:Performed By: #### DDIM #### [facility] [address] [place] [address] Dr. Kesha Trimble #0.1 103/ulNormal0.0-0.7The [facility] HospitalComment on above: Performed By: #### DDIM #### [facility] [address] [address] [address] Kesha Sumnerosinophils/100 WBC (Bld)1.4 %Normal0.9-7.0The [facility] Comment on above:Performed By: #### DDIM #### [facility] [address] [place] [address] Dr. Kesha Sumnerrythrocyte distribution width (RBC) [Ratio]14.9 %Dsmvht74.0-15.0 The [facility] HospitalComment on above:Performed By: #### DDIM #### [facility] [address] [place] [address] Dr. Kesha AgueroHematocrit (Bld) [Volume fraction]45.3 %Nuyyqh54.0-48.0The [facility] HospitalComment on above:Performed By: #### DDIM #### [facility] [address] [place] [address] Dr. Kesha AgueroHemoglobin (Bld) [Mass/Vol]13.9 g/ySThnjkl85.0-16.0The [facility] HospitalComment on above:Performed By: #### DDIM #### [facility] [address] [place] [address] Dr. Kesha Reynoso #0.02 10e3/ulNormal0.00-0.03The [facility] Hospitalment on above:Performed By: #### DDIM #### [facility] [address] [place] [address] Dr. Kesha Reynoso %0.2 %Normal0.0-0.5The Mercy Hospitalment on above: Performed By: #### DDIM #### [facility] [address] [place] [address] Dr. Kesha LirianoH #2.6 103/ulNormal1.2-3.8The [facility] HospitalComment on above:Performed By: #### DDIM #### [facility] [address] [place] [address] Dr. Kesha Noriegamphocytes/100 WBC (Bld)30.3 %Vsfcsj08.5-60.0The [facility] HospitalComment on above:Performed By: #### DDIM #### [facility] [address] [place] [address] Dr. Kesha Henley DIFF REQNONormalThe [facility] HospitalComment on above: Performed By: #### DDIM #### [facility] [address] [place] [address] Dr. Kesha Ruano (RBC) [Entitic mass]25.6 pgCritically low26.7-34.0The [facility] HospitalComment on above:Performed By: #### DDIM #### [facility] [address] [place] [address] Dr. Kesha Ruano (RBC) [Mass/Vol]30.7 g/tWOcibdz32.9-35.2The [facility] HospitalComment on above:Performed By: #### DDIM #### [facility] [address] [place] [address] Dr. Kesha Ruano (RBC) [Entitic vol]83.3 fKRdxepr25.0-99.0The [facility] HospitalComment on above:Performed By: #### DDIM #### [facility] [address] [place] [address] Dr. Kesha Ramírez #0.6 103/ulNormal0.3-0.8The [facility] HospitalComment on above:Performed By: #### DDIM #### [facility] [address] [place] [address] Dr. Kesha Riderocytes/100 WBC (Bld)6.5 %Normal1.7-12.0The [facility] Comment on above:Performed By: #### DDIM #### [facility] [address] [place] [address] Dr. Kesha Tijerina #5.1 103/ulNormal1.4-6.5The [facility] HospitalComment on above:Performed By: #### DDIM #### [facility] [address] [place] [address] Dr. Kesha Oliviautrophils/100 WBC (Bld)61.1 %Csurvc95.0-75.0The [facility] HospitalComment on above:Performed By: #### DDIM #### [facility] [address] [place] [address] Dr. Kesha Alcantara mean volume (Bld) [Entitic vol]9.6 fLNormal9.5-13.5The [facility] HospitalComment on above:Performed By: #### DDIM #### [facility] [address] [place] [address] Dr. Kesha AgueroPLT208 103/naYuorjw572-903Cig [facility] HospitalComment on above: Performed By: #### DDIM #### [facility] [address] [place] [address] Dr. Kesha AgueroRBC5.44 106/ulCritically high4.20-5.40The [facility] Comment on above:Performed By: #### DDIM #### [facility] [address] [place] [address] Dr. Kesha AgueroWBC8.4 103/ulNormal4.0-11.0The [facility] HospitalComment on above: Performed By: #### DDIM #### [facility] [address] [place] [address] Dr. Kesha Carmichael BLOODon 24-70-4353Loistqmdjwk examination of blood, cultureCulture Observations: NO GROWTH AT 5 DAYS. Isolate 1 BC_BA_NANorpan american hospitalThe [facility] HospitalComment on above:Performed By: #### BLDCX2 #### [facility] [address] [place] [address] Dr. Kesha AgueroMicroscopic examination of blood, cultureCulture Observations: NO GROWTH AT 5 DAYS. Isolate 1 BC_BA_NANormalChildren'S Hospital For RehabilitationComment on above:Performed By: #### CVDTBH #### [facility] [address] [place] [address] Dr. Kesha Carmichael URINEon 61-34-3518EUOMGEB URINECulture Observations: LIGHT GROWTH OF MIXED GENITAL SANTY. NO POTENTIAL PATHOGENS SEEN.NormalThe [facility] HospitalComment on above:Performed By: #### CVDTBH #### [facility] [address] [address] [address] Kesha Cameron URINE PROFILEon 37-85-4339Zuqhxwzgd Ql (U)NegativeNormal NEGATIVEChildren'S Hospital For RehabilitationComment on above:Performed By: #### DDIM #### [facility] [address] [place] [address] Dr. Kesha AgueroClarity (U)CLEARNormalCLEARChildren'S Hospital For RehabilitationComment on above: Performed By: #### DDIM #### [facility] [address] [address] [address] Kesha Lynch (U)DK. YELLOWNormalYELLOWChildren'S Hospital For RehabilitationComment on above:Performed By: #### DDIM #### [facility] [address] [place] [address] Dr. Kesha Holman micrscopic examination will be performed if indicated. NormalChildren'S Hospital For RehabilitationComment on above:Performed By: #### DDIM #### [facility] [address] [place] [address] Dr. Kesha AgueroGlucose Ql (U)>1000AbnormalNEGATIVEChildren'S Hospital For RehabilitationComment on above:Performed By: #### DDIM #### [facility] [address] [place] [address] Dr. Kesha AgueroHemoglobin Ql (U)NegativeNormalNEGATIVESouthern [facility] on above:Performed By: #### DDIM #### [facility] [address] [address] [address] Kesha AgueroKetones Ql (U)NegativeNormalNEGATIVEChildren'S Hospital For RehabilitationComment on above:Performed By: #### DDIM #### [facility] [address] [place] [address] Dr. Kesha AgueroLEUKOCYTESNegativeNormalNEGATIVEChildren'S Hospital For RehabilitationComsouthwest regional rehabilitation center on above:Performed By: #### DDIM #### [facility] [address] [place] [address] Dr. Kesha AgueroNitrite Ql (U)PositiveAbnormalNEGATIVEChildren'S Hospital For Rehabilitation Comment on above:Performed By: #### DDIM #### [facility] [address] [place] [address] Dr. Kesha AgueropH (U)6.0 [pH]Normal5-9The [facility] HospitalComment on above: Performed By: #### DDIM #### [facility] [address] [place] [address] Dr. Kesha AgueroSPEC GRAVITY<=1.214Fkxvvbqv0.005-<=1.025[facility] Comment on above:Performed By: #### DDIM #### [facility] [address] [place] [address] Dr. Kesha Santana PROTEINNegativeNormalNEGATIVE/ TRACEThe [facility] Comment on above:Performed By: #### DDIM #### [facility] [address] [place] [address] Dr. Kesha Joseph MICRO INDINDICATEDNormalThe [facility] HospitalComment on above: Performed By: #### DDIM #### [facility] [address] [place] [address] Dr. Kesha Cohenbilinogen Qn (U)0.2 {Allison'U}/dLNormal0.2 - 1.0The [facility] HospitalComment on above:Performed By: #### DDIM #### [facility] [address] [place] [address] Dr. Kesha AgueroLACTATE/LACTIC ACIDon 32-86-4489Xpwqone [Moles/Vol]1.0 mmol/L Normal0.4-2.0The [facility] HospitalComment on above:Performed By: #### CVDTBH #### [facility] [address] [place] [address] Dr. Kesha Freeman 14(COMP METB)on 35-85-7358Xablcjb [Mass/Vol]3.8 g/dLNormal 3.4-5.0The [facility] HospitalComment on above:Performed By: #### CVDTBH #### [facility] [address] [address] [address] Kesha AgueroAlbumin/Globulin [Mass ratio]1.1 {ratio}NormalThe [facility] HospitalComment on above:Performed By: #### CVDTBH #### [facility] [address] [address] [address] Kesha AvalosP [Catalytic activity/Vol]118 U/LCritically jlqa28-969Res [facility] HospitalComment on above:Performed By: #### CVDTBH #### [facility] [address] [address] [address] Kesha AvalosT [Catalytic activity/Vol]41 U/NCimacs37-14Xqn [facility] HospitalComment on above:Performed By: #### CVDTBH #### [facility] [address] [place] [address] Dr. Kesha Luon gap [Moles/Vol]14.3 mmol/LNormalThe [facility] Comment on above:Performed By: #### CVDTBH #### [facility] [address] [place] [address] Dr. Kesha AgueroAST [Catalytic activity/Vol]23 U/QTctpcc95-03Xly [facility] HospitalComment on above:Performed By: #### CVDTBH #### [facility] [address] [place] [address] Dr. Kesha AgueroBilirubin [Mass/Vol]0.5 mg/dLNormal0.2-1.0The [facility] Comment on above:Performed By: #### CVDTBH #### [facility] [address] [place] [address] Dr. Kesha AgueroCalcium [Mass/Vol]9.3 mg/dLNormal8.5-10.1The [facility] Comment on above:Performed By: #### CVDTBH #### [facility] [address] [place] [address] Dr. Kesha AgueroChloride [Moles/Vol]106 mmol/IQjukol44-267Bmq [facility] Comment on above:Performed By: #### CVDTBH #### [facility] [address] [place] [address] Dr. Kesha AgueroCO2 [Moles/Vol]26.4 mmol/WXvxeqx49.0-32.0The [facility] Comment on above:Performed By: #### CVDTBH #### [facility] [address] [address] [address] Kesha AgueroCreatinine [Mass/Vol]0.92 mg/dLNormal0.55-1.02The [facility] HospitalComment on above:Performed By: #### CVDTBH #### [facility] [address] [address] [address] Rebolledo ChangEGFR-AF NORTH KOREAN>60Normal>=60The [facility] HospitalComment on above:Performed By: #### CVDTBH #### [facility] [address] [address] [address] Kesha SumnerGFR-NON AF ATFEANAG81 mL/min/1.20b0Akpaadttrl low>=60The [facility] HospitalComment on above:Performed By: #### CVDTBH #### [facility] [address] [address] [address] Kesha AgueroGlobulin (S) [Mass/Vol]3.5 g/dLNormalThe [facility] HospitalComment on above:Performed By: #### CVDTBH #### [facility] [address] [address] [address] Kesha AgueroGlucose [Mass/Vol]184 mg/dLCritically myep98-500Oai [facility] HospitalComment on above:Performed By: #### CVDTBH #### [facility] [address] [address] [address] Kesha AgueroPotassium [Moles/Vol]4.7 mmol/LNormal3.5-5.1The [facility] Comment on above:Performed By: #### CVDTBH #### [facility] [address] [address] [address] Kesha AgueroProtein [Mass/Vol]7.3 g/dLNormal6.4-8.2The [facility] Comment on above:Performed By: #### CVDTBH #### [facility] [address] [address] [address] Kesha AgueroSodium [Moles/Vol]142 mmol/ALoybgd326-860FonChildren'S Hospital For Rehabilitation Comment on above:Performed By: #### CVDTBH #### [facility] [address] [place] [address] Dr. Kesha Olivier nitrogen [Mass/Vol]18.0 mg/dLNormal7.0-18.0[facility] Hospital For RehabilitationComment on above:Performed By: #### CVDTBH #### [facility] [address] [address] [address] Kesha Olivier nitrogen/Creatinine [Mass ratio]19.6 mg/mgNormalThMount St. Mary HospitalComment on above:Performed By: #### CVDTBH #### [facility] [address] [place] [address] Dr. Kesha Camacho, [facility] SENSITIVITYon 15-70-2258FFCGGG9.2 pg/mLNormal 4.0-51.3TGood Samaritan HospitalComment on above:Result Comment: CUT-OFF POINTS HAVE BEEN ESTABLISHED BASED ON THE FOURTH UNIVERSAL DEFINITIONS OF MYOCARDIAL INFARCTION. THE UPPER REFERENCE LIMIT (URL) OF TROPONIN, DEFINED THE 99TH PERCENTILE OF cTnI DISTRIBUTION IN A REFERENCE POPULATION, HAS BEEN CONFIRMED THE DECISION THRESHOLD FOR [place] DIAGNOSIS.Performed By: #### ACETON #### [facility] [address] [place] [address] Dr. Kesha AgueroHSTROP9.5 pg/mLNormal4.0-51.3TGood Samaritan HospitalComsouthwest regional rehabilitation center on above:Result Comment: CUT-OFF POINTS HAVE BEEN ESTABLISHED BASED ON THE FOURTH UNIVERSAL DEFINITIONS OF MYOCARDIAL INFARCTION. THE UPPER REFERENCE LIMIT (URL) OF TROPONIN, DEFINED THE 99TH PERCENTILE OF cTnI DISTRIBUTION IN A REFERENCE POPULATION, HAS BEEN CONFIRMED THE DECISION THRESHOLD FOR [place] DIAGNOSIS.Performed By: #### CVDTBH #### [facility] [facility] [address] [place] [address] Dr. Kesha Shaw MICROSCOPIC ONLYon 21-07-8578WABBIUTSRHPIGJghlbnxqSSKV SEEN [facility]S Hospital For RehabilitationComment on above:Performed By: #### CVDTBH #### [facility] [address] [place] [address] Dr. Kesha Colon identified Cx Nom (U)INDICATEDNoalThMount St. Mary HospitalComment on above:Performed By: #### CVDTBH #### [facility] [address] [place] [address] Dr. Kesha AgueroCASTNONDonnie SEENNormalNONE SEENChildren'S Hospital For RehabilitationComment on above:Performed By: #### CVDTBH #### [facility] [address] [place] [address] Dr. Kesha Santillanystals LM Nom (Urine sed)NONE SEENNormalNONE SEENChildren'S Hospital For RehabilitationComsouthwest regional rehabilitation center on above:Performed By: #### CVDTBH #### [facility] [address] [place] [address] Dr. Rebolledo ChangEpithelial cells LM Ql (Urine sed)FEWAbnormalNONE SEEN /RAREThe [facility] HospitalComment on above:Performed By: #### CVDTBH #### [facility] [address] [place] [address] Dr. Kesha RayCOUSJASONE SEENNormalNONE SEENChildren'S Hospital For RehabilitationComsouthwest regional rehabilitation center on above:Performed By: #### CVDTBH #### [facility] [address] [place] [address] Dr. Kesha AgueroBwxnjGOX1-6Zzprhm3-9Iwz [facility] HospitalComsouthwest regional rehabilitation center on above:Performed By: #### CVDTBH #### [facility] [address] [place] [address] Dr. Kesha AgueroWBC2-5AbnormalNONE SEENChildren'S Hospital For RehabilitationComsouthwest regional rehabilitation center on above: Performed By: #### CVDTBH #### [facility] [address] [place] [address] Dr. Kesha AgueroXR DEXA BONE DENSITYon 50-26-6697BL DEXA BONE DENSITYEXAMINATION: XR DEXA BONE DENSITY, 09/29/2022 10:51 AM EST HISTORY: [...] Electronically authenticated by: LOUIS DIEGO Date: 2022-09-29 12:[address] [place], [place] [address]CT HEAD WO CONon 00-39-2273ST HEAD WO CONEXAMINATION: CT HEAD WO CON HISTORY: HEADACHE COMPARISON: [...] Electronically authenticated by: EDWIGE ZAVALETA Date: 2022-08-29 14:04[facility] HospitalPOINT OF CARE GLUCOSEon 60-07-3298Ypakpfe [Mass/Vol]279 mg/dL Critically dldo60-201IroChildren'S Hospital For RehabilitationComment on above:Performed By: #### CVDTBH #### [facility] [address] [place] [address] Dr. Kesha AgueroGlucose [Mass/Vol]65 mg/dLCritically siv83-502DlpChildren'S Hospital For RehabilitationComment on above:Performed By: #### CVDTBH #### [facility] [address] [place] [address] Dr. Kesha Montana 04-10-1657Gyjvbfhzhfk peptide B (Bld) [Mass/Vol]673.0 pg/mL Normal<=1,800.0The [facility] HospitalComment on above:Performed By: #### CVDTBH #### [facility] [address] [place] [address] Dr. Kesha Toussaint KARLIE ADMITon 33-54-5149GO [Catalytic activity/Vol]33 U/L Jqvwjx35-624PdaChildren'S Hospital For RehabilitationComment on above:Performed By: #### CVDTBH #### [facility] [address] [place] [address] Dr. Kesha Montgomery.MB [Mass/Vol]0.58 ng/mLNormal<=3.60[facility] Comment on above:Performed By: #### CVDTBH #### [facility] [address] [place] [address] Dr. Kesha HernandezTROP11.2 pg/mLNormal4.0-51.3The Mercy Hospitalment on above:Result Comment: CUT-OFF POINTS HAVE BEEN ESTABLISHED BASED ON THE FOURTH UNIVERSAL DEFINITIONS OF MYOCARDIAL INFARCTION. THE UPPER REFERENCE LIMIT (URL) OF TROPONIN, DEFINED THE 99TH PERCENTILE OF cTnI DISTRIBUTION IN A REFERENCE POPULATION, HAS BEEN CONFIRMED THE DECISION THRESHOLD FOR [place] DIAGNOSIS.Performed By: #### CVDTBH #### [facility] [address] [place] [address] Dr. Kesha AgueroMYO48 ng/mLNormal9-82The [facility] HospitalComment on above: Performed By: #### CVDTBH #### [facility] [address] [place] [address] Dr. Kesha Hernandez AUTO DIFFon 46-52-1489XYLF #0.1 103/ulNormal0.0-0.1The [facility] HospitalComment on above:Performed By: #### CVDTBH #### [facility] [address] [place] [address] Dr. Kesha AgueroBasophils/100 WBC (Bld)0.6 %Normal0.2-2.0The [facility] Comment on above:Performed By: #### CVDTBH #### [facility] [address] [place] [address] Dr. Kesha SumnerO #0.2 103/ulNormal0.0-0.7The [facility] HospitalComment on above: Performed By: #### CVDTBH #### [facility] [address] [place] [address] Dr. Kesha Sumnerosinophils/100 WBC (Bld)2.3 %Normal0.9-7.0The [facility] Comment on above:Performed By: #### CVDTBH #### [facility] [address] [place] [address] Dr. Kesha Sumnerrythrocyte distribution width (RBC) [Ratio]15.7 %Critically high 11.0-15.0The [facility] HospitalComment on above:Performed By: #### CVDTBH #### [facility] [address] [place] [address] Dr. Kesha AgueroHematocrit (Bld) [Volume fraction]44.6 %Othcpp29.0-48.0The [facility] HospitalComment on above:Performed By: #### CVDTBH #### [facility] [address] [place] [address] Dr. Kesha AgueroHemoglobin (Bld) [Mass/Vol]14.4 g/rWEvifoo75.0-16.0The [facility] HospitalComment on above:Performed By: #### CVDTBH #### [facility] [address] [place] [address] Dr. Kesha Reynoso #0.02 10e3/ulNormal0.00-0.03The [facility] HospitalComment on above:Performed By: #### CVDTBH #### [facility] [address] [place] [address] Dr. Kesha Reynoso %0.3 %Normal0.0-0.5The [facility] HospitalComment on above: Performed By: #### CVDTBH #### [facility] [address] [place] [address] Dr. Kesha Mcintosh #3.5 103/ulNormal1.2-3.8The [facility] HospitalComment on above:Performed By: #### CVDTBH #### [facility] [address] [place] [address] Dr. Kesha Lirianohocytes/100 WBC (Bld)43.6 %Yyklhr10.5-60.0The [facility] HospitalComment on above:Performed By: #### CVDTBH #### [facility] [address] [place] [address] Dr. Kesha Henley DIFF REQNONormalThe [facility] HospitalComment on above: Performed By: #### CVDTBH #### [facility] [address] [place] [address] Dr. Kesha Acuna (RBC) [Entitic mass]25.9 pgCritically low26.7-34.0The [facility] HospitalComment on above:Performed By: #### CVDTBH #### [facility] [address] [place] [address] Dr. Kesha Ruano (RBC) [Mass/Vol]32.3 g/mDAaifjx90.9-35.2The [facility] HospitalComment on above:Performed By: #### CVDTBH #### [facility] [address] [place] [address] Dr. Yilan ChangMCV (RBC) [Entitic vol]80.4 fLCritically low81.0-99.0The [facility] HospitalComment on above:Performed By: #### CVDTBH #### [facility] [address] [place] [address] Dr. Kesha Ramírez #0.5 103/ulNormal0.3-0.8The [facility] HospitalComment on above:Performed By: #### CVDTBH #### [facility] [address] [place] [address] Dr. Kesha Riderocytes/100 WBC (Bld)6.0 %Normal1.7-12.0The [facility] Comment on above:Performed By: #### CVDTBH #### [facility] [address] [place] [address] Dr. Kesha Tijerina #3.8 103/ulNormal1.4-6.5The [facility] HospitalComment on above:Performed By: #### CVDTBH #### [facility] [address] [place] [address] Dr. Kesha Oliviautrophils/100 WBC (Bld)47.2 %Mzpqbf84.0-75.0The [facility] HospitalComment on above:Performed By: #### CVDTBH #### [facility] [address] [place] [address] Dr. Kesha Romerolet mean volume (Bld) [Entitic vol]9.7 fLNormal9.5-13.5The [facility] HospitalComment on above:Performed By: #### CVDTBH #### [facility] [address] [place] [address] Dr. Kesha AgueroPLT269 103/dfOtipel478-666Zlt [facility] HospitalComment on above: Performed By: #### CVDTBH #### [facility] [address] [place] [address] Dr. Kesha AgueroRBC5.55 106/ulCritically high4.20-5.40The [facility] Comment on above:Performed By: #### CVDTBH #### [facility] [address] [place] [address] Dr. Kesha AgueroWBC8.0 103/ulNormal4.0-11.0The [facility] HospitalComment on above: Performed By: #### CVDTBH #### [facility] [address] [place] [address] Dr. Kesha AgueroCovid-19 PCR ([facility])on 65-46-5733PQOM-CoV-2 (COVID-19) RNA YARA+probe Ql (Unsp spec)Not detectedNormalNOT DETECTEDChildren'S Hospital For Rehabilitation Comment on above:Result Comment: When diagnostic testing is negative, the [...] for this test is supported by the [employer] Supervisor of Health and Human Service's declaration that circumstances exist to justify the emergency use of in vitro diagnostics for the detection and/or diagnosis of the virus that causes COVID-19. This EUA will remain in effect for the duration of the COVID-19 declaration justifying emergency of IVDs, unless it is terminated or revoked by the FDA (after which the test may no longer be used).Performed By: #### CVDTBH #### [facility] [address] [place] [address] Dr. Kesha AgueroPOINT OF CARE GLUCOSEon 06-23-3064Weelqnl [Mass/Vol]157 mg/dL Critically ieep34-689VzjChildren'S Hospital For RehabilitationComment on above:Performed By: #### DDIM #### [facility] [address] [place] [address] Dr. Kesha AgueroGlucose [Mass/Vol]170 mg/dLCritically tbzp18-906LycChildren'S Hospital For RehabilitationComment on above:Performed By: #### CVDTBH #### [facility] [address] [place] [address] Dr. Kesha AgueroPROF CHEM 8 (BAS METB)on 24-90-7575Omzby gap [Moles/Vol]14.2 mmol/LNormalThe [facility] HospitalComment on above:Performed By: #### CVDTBH #### [facility] [address] [address] [address] Kesha AgueroCalcium [Mass/Vol]9.8 mg/dLNormal8.5-10.1The [facility] Comment on above:Performed By: #### CVDTBH #### [facility] [address] [address] [address] Kesha AgueroChloride [Moles/Vol]104 mmol/RBojcbp71-266Vny [facility] Comment on above:Performed By: #### CVDTBH #### [facility] [address] [place] [address] Dr. Kesha AgueroCO2 [Moles/Vol]25.6 mmol/LTdwjlf14.0-32.0[facility] Comment on above:Performed By: #### CVDTBH #### [facility] [address] [place] [address] Dr. Kesha AgueroCreatinine [Mass/Vol]1.00 mg/dLNormal0.55-1.02The [facility] HospitalComment on above:Performed By: #### CVDTBH #### [facility] [address] [place] [address] Dr. Rebolledo ChangEGFR-AF NORTH KOREAN>60Normal>=60The [facility] HospitalComment on above:Performed By: #### CVDTBH #### [facility] [address] [place] [address] Dr. Kesha SumnerGFR-NON AF PPGJLNCX50 mL/min/1.17n7Gkamksysyu low>=60The [facility] HospitalComment on above:Performed By: #### CVDTBH #### [facility] [address] [place] [address] Dr. Kesha AgueroGlucose [Mass/Vol]151 mg/dLCritically flmv49-389Dnr [facility] HospitalComment on above:Performed By: #### CVDTBH #### [facility] [address] [address] [address] Kesha Marshallassium [Moles/Vol]3.8 mmol/LNormal3.5-5.1The [facility] Comment on above:Performed By: #### CVDTBH #### [facility] [address] [address] [address] Kesha Bradshawdium [Moles/Vol]140 mmol/DJoqfmc426-481Ecl [facility] Comment on above:Performed By: #### CVDTBH #### [facility] [address] [place] [address] Dr. Kesha AgueroUrea nitrogen [Mass/Vol]19.0 mg/dLCritically high7.0-18.0The [facility] HospitalComment on above:Performed By: #### CVDTBH #### [facility] [address] [place] [address] Dr. Kesha Olivier nitrogen/Creatinine [Mass ratio]19.0 mg/mgNoClinton Memorial HospitalComment on above:Performed By: #### CVDTBH #### [facility] [address] [place] [address] Dr. Kesha Edwards 93-22-0215VXV Coag (PPP) [Relative time]0.97 {INR} NormalChildren'S Hospital For RehabilitationComment on above:Performed By: #### CVDTBH #### [facility] [address] [place] [address] Dr. Kesha Sinha GUIDELINESSEE BELOWHocking Valley Community HospitalComment on above:Result Comment: DESIRED INR: 2.0 - 3.0 CONDITIONS NOT LISTED BELOW 2.5 - 3.5 FOR PROSTHETIC HEART VALVE REPLACEMENT 2.5 - 3.5 RECURRENT THROMBOSIS Performed By: #### CVDTBH #### [facility] [address] [place] [address] Dr. Kesha Mendieta Coag (PPP) [Time]10.5 sNormal9.0-11.6The [facility] Comment on above:Performed By: #### CVDTBH #### [facility] [address] [place] [address] Dr. Kesha Walker 10-50-6476aWYW Coag (Bld) [Time]27.1 rPnhtve62.3-36.2The [facility] on above:Performed By: #### CVDTBH #### [facility] [address] [place] [address] Dr. Kesha Camacho, HIGH SENSITIVITYon 13-59-6128SGYREQ72.8 pg/mLNormal 4.0-51.3TCommunity [facility] on above:Result Comment: CUT-OFF POINTS HAVE BEEN ESTABLISHED BASED ON THE FOURTH UNIVERSAL DEFINITIONS OF MYOCARDIAL INFARCTION. THE UPPER REFERENCE LIMIT (URL) OF TROPONIN, DEFINED THE 99TH PERCENTILE OF cTnI DISTRIBUTION IN A REFERENCE POPULATION, HAS BEEN CONFIRMED THE DECISION THRESHOLD FOR [place] DIAGNOSIS.Performed By: #### CVDTBH #### [facility] [address] [place] [address] Dr. Kesha AgueroHSTROP13.5 pg/mLNormal4.0-51.3TGood Samaritan HospitalComsouthwest regional rehabilitation center on above:Result Comment: CUT-OFF POINTS HAVE BEEN ESTABLISHED BASED ON THE FOURTH UNIVERSAL DEFINITIONS OF MYOCARDIAL INFARCTION. THE UPPER REFERENCE LIMIT (URL) OF TROPONIN, DEFINED THE 99TH PERCENTILE OF cTnI DISTRIBUTION IN A REFERENCE POPULATION, HAS BEEN CONFIRMED THE DECISION THRESHOLD FOR [place] DIAGNOSIS.Performed By: #### DDIM #### [facility] [address] [place] [address] Dr. Kesha Santos CHRIS DOP LEG BILon 37-32-6163YI CHRIS DOP LEG BILEXAMINATION: US CHRIS DOP LEG MIKE HISTORY: Pain in bilateral [...] Electronically authenticated by: CARMEN LOTT Date: 2022-08-28 13:22NoClinton Memorial HospitalXR CHEST 1 Von 08-12-1754WR CHEST 1 VEXAM: CHEST 1 VIEW HISTORY: CHEST PAIN, UNSPECIFIED TECHNIQUE: Chest, one view. COMPARISON: 06/06/2022. FINDINGS: Lungs are clear. No focal consolidation, pleural effusion, or pneumothorax. Pulmonary vasculature is within normal limits. Cardiomediastinal silhouette is normal. IMPRESSION: 1. No acute cardiopulmonary disease. Electronically authenticated by: JEAN-CLAUDE OLEARY Date: 2022-08-28 08:34NoClinton Memorial HospitalCT ABDOMEN WO/W CONon 21-18-7668FI ABDOMEN WO/W CONEXAMINATION: CT ABDOMEN WO/W CON HISTORY: Disorder of [...] Electronically authenticated by: LOUIS DIEGO Date: 2022-08-18 22:44NoClinton Memorial HospitalCREATININEon 85-00-2907Iycmsvgwfj [Mass/Vol]1.04 mg/dL Critically high0.55-1.02The [facility] HospitalComment on above:Performed By: #### CVDTBH #### [facility] [address] [place] [address] Dr. Kesha SumnerGFR-AF NORTH KOREAN>60Normal>=60The [facility] HospitalComment on above:Performed By: #### CVDTBH #### [facility] [address] [id number] [address] Kesha SumnerGFR-NON AF TYLUFIVQ92 mL/min/1.89d8Locmeynvaq low>=60The [facility] HospitalComment on above:Performed By: #### CVDTBH #### [facility] [address] [place], [place] [address] Dr. Kesha SumnerCHOCARDIO M/2D COMPLETEon 21-32-3192NSJZDNKHVO M/2D COMPLETE Patient: TERE HARTMANN Exam Date: 08/18/2022 : 1940 Gender:F Ordering : TAYLOR CRISOSTOMO Admission #: [id number] Family : DR RODRICK BUTLER M.D. Order #: [id number] CLICK HERE TO VIEW EXAM ECHOCARDIOGRAM REPORT [...] by: Enrique Jackson M.D. on 08/21/2022 at 15:17[facility] Community HospitalALDOSTERONE: RENIN RATIOon 88-22-3775Ejrun/Renin Ratio2.4Qrxwxf1.0-30.0 The [facility] HospitalComment on above:Result Comment: Units: ng/dL per ng/mL/hr Performed By: #### ALDOREN #### [facility] [address] [place] [address] Dr. Kesha AgueroAldosterone7.4 ng/dLNormal0.0-30.0The [facility] HospitalComment on above:Performed By: #### ALDOREN #### [facility] [address] [place] [address] Dr. Kesha AgueroRenin Activity, Plasma3.015 ng/mL/hrNormal0.167-5.380The [facility] HospitalComment on above:Performed By: #### ALDOREN #### [facility] [address] [place] [address] Dr. Kesha AgueroMETANEPHRINES PLASMA FREEon 55-20-4660Hixdrxfwcstw, Pl11.8 pg/mL Normal0.0-88.0The [facility] HospitalComment on above:Performed By: #### ACETON #### [facility] [address] [place] [address] Dr. Kesha AgueroNormetanephrine, Pl103.3 pg/mLNormal0.0-297.2The [facility] HospitalComment on above:Performed By: #### ACETON #### [facility] [address] [place] [address] Dr. Kesha AgueroCORTISOLon 81-34-6897Pzgdfkbl7.5 ug/dLHocking Valley Community Hospital Comment on above:Result Comment: Cortisol AM 6.2 - 19.4 Cortisol PM 2.3 - 11.9Performed By: #### CVDTBH #### [facility] [address] [place] [address] Dr. Kesha AgueroPROF CHEM 8 (BAS METB)on 22-49-8085Oebbk gap [Moles/Vol]14.4 mmol/LNormalThe [facility] HospitalComment on above:Performed By: #### ALDOREN #### [facility] [address] [place] [address] Dr. Kesha AgueroCalcium [Mass/Vol]9.6 mg/dLNormal8.5-10.1The [facility] Comment on above:Performed By: #### ALDOREN #### [facility] [address] [place] [address] Dr. Kesha AgueroChloride [Moles/Vol]103 mmol/RAcajni86-240Ldd [facility] Comment on above:Performed By: #### ALDOREN #### [facility] [address] [place] [address] Dr. Kesha AgueroCO2 [Moles/Vol]24.3 mmol/YWefxrg44.0-32.0The [facility] Comment on above:Performed By: #### ALDOREN #### [facility] [address] [place] [address] Dr. Kesha AgueroCreatinine [Mass/Vol]1.24 mg/dLCritically high0.55-1.02The [facility] HospitalComment on above:Performed By: #### ALDOREN #### [facility] [address] [place] [address] Dr. Rebolledo ChangEGFR-AF ZTDZZWQX82 mL/min/1.97i9Oqrxcycufj low>=60The [facility] HospitalComment on above:Performed By: #### ALDOREN #### [facility] [address] [place] [address] Dr. Kesha SumnerGFR-NON AF HNQLORGD27 mL/min/1.80g0Zzgqhpwkqk low>=60The [facility] HospitalComment on above:Performed By: #### ALDOREN #### [facility] [address] [place] [address] Dr. Kesha AgueroGlucose [Mass/Vol]215 mg/dLCritically zcsg13-601Ghu [facility] HospitalComment on above:Performed By: #### ALDOREN #### [facility] [address] [place] [address] Dr. Kesha AgueroPotassium [Moles/Vol]4.7 mmol/LNormal3.5-5.1The [facility] Comment on above:Performed By: #### ALDOREN #### [facility] [address] [place] [address] Dr. Kesha AgueroSodium [Moles/Vol]137 mmol/OBoeuye447-058Zlh [facility] Comment on above:Performed By: #### ALDOREN #### [facility] [address] [place] [address] Dr. Kesha Olivier nitrogen [Mass/Vol]21.0 mg/dLCritically high7.0-18.0The [facility] HospitalComment on above:Performed By: #### ALDOREN #### [facility] [address] [place] [address] Dr. Kesha Olivier nitrogen/Creatinine [Mass ratio]16.9 mg/mgNormalThe [facility] HospitalComment on above:Performed By: #### ALDOREN #### [facility] [address] [place] [address] Dr. Kesha Toussaint KARLIE 3-6on 29-93-4552EO [Catalytic activity/Vol]77 U/L Qufcat33-430Eiy [facility] HospitalComment on above:Performed By: #### DDIM #### [facility] [address] [place] [address] Dr. Kesha Montgomery.MB [Mass/Vol]1.64 ng/mLNormal<=3.60The [facility] Comment on above:Performed By: #### DDIM #### [facility] [address] [place] [address] Dr. Kesha AgueroHSTROP16.0 pg/mLNormal4.0-51.3The [facility] HospitalComment on above:Result Comment: CUT-OFF POINTS HAVE BEEN ESTABLISHED BASED ON THE FOURTH UNIVERSAL DEFINITIONS OF MYOCARDIAL INFARCTION. THE UPPER REFERENCE LIMIT (URL) OF TROPONIN, DEFINED THE 99TH PERCENTILE OF cTnI DISTRIBUTION IN A REFERENCE POPULATION, HAS BEEN CONFIRMED THE DECISION THRESHOLD FOR [place] DIAGNOSIS.Performed By: #### DDIM #### [facility] [address] [place] [address] Dr. Kesha Toussaint KARLIE ADMITon [id number] [Catalytic activity/Vol]86 U/L Rrtqij35-738Zfb [facility] Hospitalment on above:Performed By: #### ACETON #### [facility] [address] [place] [address] Dr. Kesha Montgomery.MB [Mass/Vol]2.10 ng/mLNormal<=3.60The [facility] Comment on above:Performed By: #### ACETON #### [facility] [address] [place] [address] Dr. Kesha HernandezTROP13.3 pg/mLNormal4.0-51.3The [facility] HospitalComment on above:Result Comment: CUT-OFF POINTS HAVE BEEN ESTABLISHED BASED ON THE FOURTH UNIVERSAL DEFINITIONS OF MYOCARDIAL INFARCTION. THE UPPER REFERENCE LIMIT (URL) OF TROPONIN, DEFINED THE 99TH PERCENTILE OF cTnI DISTRIBUTION IN A REFERENCE POPULATION, HAS BEEN CONFIRMED THE DECISION THRESHOLD FOR [place] DIAGNOSIS.Performed By: #### ACETON #### [facility] [address] [place] [address] Dr. Kesha Palomino78 ng/mLNormal9-82The [facility] HospitalComment on above: Performed By: #### ACETON #### [facility] [address] [place] [address] Dr. Kesha Hernandez AUTO DIFFon [id number] #0.0 103/ulNormal0.0-0.1The [facility] HospitalComment on above:Performed By: #### CVDTBH #### [facility] [address] [place] [address] Dr. Kesha AgueroBasophils/100 WBC (Bld)0.4 %Normal0.2-2.0[facility] Comment on above:Performed By: #### CVDTBH #### [facility] [address] [place] [address] Dr. Kesha Trimble #0.1 103/ulNormal0.0-0.7The [facility] HospitalComment on above: Performed By: #### CVDTBH #### [facility] [address] [place] [address] Dr. Kesha Sumnerosinophils/100 WBC (Bld)1.8 %Normal0.9-7.0The [facility] Comment on above:Performed By: #### CVDTBH #### [facility] [address] [place] [address] Dr. Kesha Sumnerrythrocyte distribution width (RBC) [Ratio]13.9 %Fialyi13.0-15.0 The [facility] HospitalComment on above:Performed By: #### CVDTBH #### [facility] [address] [place] [address] Dr. Kesha AgueroHematocrit (Bld) [Volume fraction]40.7 %Dhxbea33.0-48.0The [facility] HospitalComment on above:Performed By: #### CVDTBH #### [facility] [address] [place] [address] Dr. Kesha AgueroHemoglobin (Bld) [Mass/Vol]12.9 g/bARowcfp43.0-16.0The [facility] HospitalComment on above:Performed By: #### CVDTBH #### [facility] [address] [place] [address] Dr. Kesha Reynoso #0.01 10e3/ulNormal0.00-0.03The [facility] HospitalComment on above:Performed By: #### CVDTBH #### [facility] [address] [place] [address] Dr. Kesha Reynoso %0.1 %Normal0.0-0.5The [facility] HospitalComment on above: Performed By: #### CVDTBH #### [facility] [address] [place] [address] Dr. Kesha LirianoH #2.6 103/ulNormal1.2-3.8The [facility] HospitalComment on above:Performed By: #### CVDTBH #### [facility] [address] [place] [address] Dr. Kesha Noriegamphocytes/100 WBC (Bld)33.6 %Hkdwqa93.5-60.0The [facility] HospitalComment on above:Performed By: #### CVDTBH #### [facility] [address] [place] [address] Dr. Kesha Henley DIFF REQNONormalThe [facility] HospitalComment on above: Performed By: #### CVDTBH #### [facility] [address] [place] [address] Dr. Kesha Ruano (RBC) [Entitic mass]26.5 pgCritically low26.7-34.0The [facility] HospitalComment on above:Performed By: #### CVDTBH #### [facility] [address] [place] [address] Dr. Kesha Ruano (RBC) [Mass/Vol]31.7 g/dVZobvxw08.9-35.2The [facility] HospitalComment on above:Performed By: #### CVDTBH #### [facility] [address] [place] [address] Dr. Kesha Gallardo (RBC) [Entitic vol]83.6 nJIhmyub37.0-99.0The [facility] HospitalComment on above:Performed By: #### CVDTBH #### [facility] [address] [place] [address] Dr. Kesha Ramírez #0.6 103/ulNormal0.3-0.8The [facility] HospitalComment on above:Performed By: #### CVDTBH #### [facility] [address] [place] [address] Dr. Kesha Riderocytes/100 WBC (Bld)7.7 %Normal1.7-12.0The [facility] Comment on above:Performed By: #### CVDTBH #### [facility] [address] [place] [address] Dr. Kesha Tijerina #4.3 103/ulNormal1.4-6.5The [facility] HospitalComment on above:Performed By: #### CVDTBH #### [facility] [address] [place] [address] Dr. Kesha Oliviautrophils/100 WBC (Bld)56.4 %Jdrruo35.0-75.0The [facility] Hospitalment on above:Performed By: #### CVDTBH #### [facility] [address] [place] [address] Dr. Kesha Romerolet mean volume (Bld) [Entitic vol]11.2 fLNormal9.5-13.5The [facility] HospitalComment on above:Performed By: #### CVDTBH #### [facility] [address] [place] [address] Dr. Kesha AgueroPLT267 103/cwBysdlg059-077Cmp [facility] on above: Performed By: #### CVDTBH #### [facility] [address] [place] [address] Dr. Kesha AgueroRBC4.87 106/ulNormal4.20-5.40The [facility] on above:Performed By: #### CVDTBH #### [facility] [address] [place] [address] Dr. Kesha AgueroWBC7.7 103/ulNormal4.0-11.0The [facility] on above: Performed By: #### CVDTBH #### [facility] [address] [place] [address] Dr. Kesha Pruitt CHEST WO W CONon 04-44-2197RFG CHEST WO W CONEXAMINATION: CTA CHEST WO W CON, 06/06/2022 1:31 [...] Electronically authenticated by: CHRISTINA MESSINA Date: 2022-06-06 03:54NoClinton Memorial HospitalCovid-19 PCR (CVDTB)on 50-57-1063FVXF-CoV-2 (COVID-19) RNA YARA+probe Ql (Unsp spec)Not detectedNormalNOT DETECTEDThe [facility] Comment on above:Result Comment: When diagnostic testing is negative, the [...] for this test is supported by the [place] of Health and Human Service's declaration that circumstances exist to justify the emergency use of in vitro diagnostics for the detection and/or diagnosis of the virus that causes COVID-19. This EUA will remain in effect for the duration of the COVID-19 declaration justifying emergency of IVDs, unless it is terminated or revoked by the FDA (after which the test may no longer be used).Performed By: #### CVDTBH #### [facility] [address] [place] [address] Dr. Kesha Car-DIMERon 70-05-1929K-DIMER0.86 mg/L FEUCritically high<=0.59[facility] For RehabilitationComment on above:Performed By: #### DDIM #### [facility] [address] [place] [address] Dr. Kesha RossiDIMER COMMENTSSEE Clinton Memorial HospitalComment on above:Result Comment: Increases in D-Dimer concentration observed with thromboembolic events [...] stress, and generalized hospitalization. Performed By: #### DDIM #### [facility] [address] [place] [address] Dr. Kesha AgueroPROF CHEM 8 (BAS METB)on 25-86-9008Onkbc gap [Moles/Vol]13.1 mmol/LNormalChildren'S Hospital For RehabilitationComment on above:Performed By: #### ACETON #### [facility] [address] [place] [address] Dr. Kesha AgueroCalcium [Mass/Vol]10.0 mg/dLNormal8.5-10.1The [facility] Comment on above:Performed By: #### ACETON #### [facility] [address] [place] [address] Dr. Kesha AgueroChloride [Moles/Vol]106 mmol/XCjmzby49-248Rfw [facility] Comment on above:Performed By: #### ACETON #### [facility] [address] [place] [address] Dr. Kesha AgueroCO2 [Moles/Vol]24.9 mmol/PApeezm57.0-32.0The [facility] Comment on above:Performed By: #### ACETON #### [facility] [address] [address] [address] Kesha AgueroCreatinine [Mass/Vol]1.14 mg/dLCritically high0.55-1.02The [facility] HospitalComment on above:Performed By: #### ACETON #### [facility] [address] [address] [address] Kesha SumnerGFR-AF NCTFMUJZ21 mL/min/1.28j8Vforhpqapc low>=60The [facility] HospitalComment on above:Performed By: #### ACETON #### [facility] [address] [address] [address] Kesha SumnerGFR-NON AF PCMGAHLP36 mL/min/1.01n2Azbmqvjlcn low>=60The [facility] HospitalComment on above:Performed By: #### ACETON #### [facility] [address] [address] [address] Kesha AgueroGlucose [Mass/Vol]181 mg/dLCritically gzey24-397Okj [facility] HospitalComment on above:Performed By: #### ACETON #### [facility] [address] [address] [address] Kesha AgueroPotassium [Moles/Vol]4.0 mmol/LNormal3.5-5.1[facility] Comment on above:Performed By: #### ACETON #### [facility] [address] [address] [address] Kesha AgueroSodium [Moles/Vol]140 mmol/FZqtyzw964-386LqqChildren'S Hospital For Rehabilitation Comment on above:Performed By: #### ACETON #### [facility] [address] [address] [address] Kesha AgueroUrea nitrogen [Mass/Vol]24.0 mg/dLCritically high7.0-18.0The [facility] HospitalComment on above:Performed By: #### ACETON #### [facility] [address] [address] [address] Kesha AgueroUrea nitrogen/Creatinine [Mass ratio]21.1 mg/mgNormalThe Igor HospitalComment on above:Performed By: #### ACETON #### [facility] [address] [address] [address] Kesha Camacho, HIGH SENSITIVITYon 55-47-4407GNXPUU48.7 pg/mLNormal 4.0-51.3The [facility] HospitalComsouthwest regional rehabilitation center on above:Result Comment: CUT-OFF POINTS HAVE BEEN ESTABLISHED BASED ON THE FOURTH UNIVERSAL DEFINITIONS OF MYOCARDIAL INFARCTION. THE UPPER REFERENCE LIMIT (URL) OF TROPONIN, DEFINED THE 99TH PERCENTILE OF cTnI DISTRIBUTION IN A REFERENCE POPULATION, HAS BEEN CONFIRMED THE DECISION THRESHOLD FOR [place] DIAGNOSIS.Performed By: #### ALDOREN #### [facility] [address] [address] [address] Kesha AgueroXR CHEST 1 Von 05-45-1321MB CHEST 1 VEXAM: XR CHEST 1 V HISTORY: CHEST PAIN, [...] Electronically authenticated by: CHRISTINA MESSINA Date: 2022-06-06 02:23[facility] HospitalActivated partial thromboplastin time (aPTT) in platelet poor plasma by coagulation aOrdered By: Herminia Lawler on 62-65-1945tTLJ Coag (PPP) [Time]43.7 s25.1-36.5FSelect Medical TriHealth Rehabilitation HospitalCreatinine and Glomerular filtration rate.predicted panel (S/P/Bld)Ordered By: Herminia Lawler on 88-34-3630Ludkjurmss [Mass/Vol]0.97 mg/dL0.44-1.03Paulding County HospitalEstimated glomerular filtration rate (GFR) non- AmericanOrdered By: Herminia Lawler on 68-57-2312QDT/1.73 sq M.predicted among non-blacks MDRD (S/P/Bld) [Vol rate/Area]55 mL/MinPaulding County HospitalGlucose Glucometer (BldC) [Mass/Vol]Ordered By: Herminia Lawler on 39-62-3345Eekxmjt [Mass/Vol]281 mg/dLPaulding County HospitalComment on above:Random Glucose Reference Range is dependent on time and content of last meal. Glucose of more than 200 mg/dL in a nonstressed, ambulatory subject supports the diagnosis of Diabetes Mellitus.Laboratory - Chemistry and Chemistry - challenge Ordered By: Herminia Lawler on 04-05-3324Ovdomirac [Mass/Vol]1.7 mg/dL1.6-2.6 [facility] HospitalNo Panel InformationOrdered By: Herminia Lawler on 65-22-8700Iwnyapqrx GFR ()> 60 mL/MinPaulding County HospitalComment on above:GFR estimated reference range: According to KDOQI guidelines, <60 ml/min/1.73m2 is sufficient todiagnose a patient with chronic kidney disease.Pharmacy Creatinine Clearance (Chem42.73[facility] Hospitalerum or plasma anion gap determinationOrdered By: Herminia Lawler on 67-83-3436Twtaw gap [Moles/Vol]13.6 mmol/L6.0-15.0[facility] Hospitalerum or plasma calcium measurement (mass/volume)Ordered By: Herminia Tyson on 19-57-1878Voynpwa [Mass/Vol]9.8 mg/dL8.2-10.2FSumma Health Barberton Campuserum or plasma chloride measurement (moles/volume)Ordered By: Herminia Lawler on 53-97-4817Fmbyehtm [Moles/Vol]107 mmol/D57-379KbfnaulgpRiverside Methodist Hospitalerum or plasma glucose measurement (mass/volume)Ordered By: Herminia Lawler on 59-08-9798Pcsypkx [Mass/Vol]187 mg/vZ72-127QocfdpqlrPaulding County HospitalComment on above:ADA recommended reference range Random Glucose Reference Range is dependent on time and content of last meal. Glucose of more than 200 mg/dL in a nonstressed, ambulatory subject supports the diagnosis of Diabetes Mellitus.Serum or plasma potassium measurement (moles/volume)Ordered By: Herminia Lawler on 02-88-7886Pdzokpvtk [Moles/Vol]3.8 mmol/L3.5-5.1FSumma Health Barberton Campuserum or plasma sodium measurement (moles/volume)Ordered By: Herminia Perezomar on 70-27-5957Bhrbkk [Moles/Vol]137 mmol/Z212-481IuhpofxarRiverside Methodist Hospitalerum or plasma total carbon dioxide measurement (moles/volume)Ordered By: Herminia Perezomar on 32-05-5028LO5 [Moles/Vol]20.2 mmol/L22.0-30.0[facility] Hospitalerum or plasma urea nitrogen measurement (mass/volume)Ordered By: Herminia Lawler on 05-11-2022 Urea nitrogen [Mass/Vol]21 mg/dL9-23Paul[facility] County HospitalTroponin I.cardiac [Mass/volume] in Serum or Plasma by High sensitivity methodOrdered By: Itz Townsend on 02-94-9365Vmarwosq I.cardiac High sensitivity method [Mass/Vol]97 pg/mL0-15Paul[facility] County HospitalComment on above:Results called at 0602 on 05/11/22Albumin [Mass/volume] in Serum or PlasmaOrdered By: Herminia aLwler on 11-01-2705Xwfixmd [Mass/Vol]2.9 g/dL3.2-5.5FSelect Medical TriHealth Rehabilitation HospitalBasophils Auto (Bld) [#/Vol]Ordered By: Herminia Lawler on 05-10-2022 Basophils (Bld) [#/Vol]0.2 10*3/uL0.0-0.2FSelect Medical TriHealth Rehabilitation Hospital Basophils/100 WBC Auto (Bld)Ordered By: Herminia Lawler on 05-10-2022 Basophils/100 WBC (Bld)2.8 %.[facility] HospitalBlood hemoglobin measurement (mass/volume)Ordered By: Herminia Lawler on 57-63-4483Yxceujncxq (Bld) [Mass/Vol]12.4 g/dL11.8-15.4FSelect Medical TriHealth Rehabilitation HospitalBlood leukocytes automated count (number/volume)Ordered By: Otisdah Daromar on 86-31-1541YJP (Bld) [#/Vol]7.0 10*3/uL4.5-11.0[facility] Creatine kinase [Enzymatic activity/volume] in Serum or PlasmaOrdered By: Darrion Gilbert on 38-49-0066OS [Catalytic activity/Vol]48 U/G59-206FwcksttquPaulding County HospitalEosinophils Auto (Bld) [#/Vol]Ordered By: Obaydah Daromar on 60-97-2705Sdjrmtcqszg (Bld) [#/Vol]0.2 10*3/uL0.0-0.45Paul[facility] County HospitalEosinophils/100 WBC Auto (Bld)Ordered By: Obaydah Daromar on 05-10-2022 Eosinophils/100 WBC (Bld)2.7 %.[facility] County HospitalErythrocyte distribution width Auto (RBC) [Ratio]Ordered By: Obaydah Daromar on 05-10-2022 Erythrocyte distribution width (RBC) [Ratio]15.2 %11.9-15.3FSelect Medical TriHealth Rehabilitation HospitalGlobulin Calc (S) [Mass/Vol]Ordered By: Obdarindah Daromar on 27-45-0823Ganntcfq (S) [Mass/Vol]2.9 g/dLPaulding County Hospital Hematocrit Auto (Bld) [Volume fraction]Ordered By: Obaydah Daromar on 05-10-2022 Hematocrit (Bld) [Volume fraction]37.8 %34.0-46.4FSelect Medical TriHealth Rehabilitation HospitalLaboratory - Hematology and Cell countsOrdered By: Obaydah Daromar on 58-47-1638Wjhosctta RBC/100 WBC (Bld) [Ratio]0.3 %0-0.5FSelect Medical TriHealth Rehabilitation HospitalLymphocytes Auto (Bld) [#/Vol]Ordered By: Obaydah Daromar on 32-75-7418Skkfjkwgcqd (Bld) [#/Vol]3.0 10*3/uL1.00-4.8Paul[facility] County HospitalLymphocytes/100 WBC Auto (Bld)Ordered By: Obaydah Daromar on 05-10-2022 Lymphocytes/100 WBC (Bld)42.4 %.Paul[facility] County HospitalMCH Auto (RBC) [Entitic mass]Ordered By: Obaydah Daromar on 82-80-8110BYT (RBC) [Entitic mass] 26.4 pg24.7-34.3FSelect Medical TriHealth Rehabilitation HospitalMCHC Auto (RBC) [Mass/Vol] Ordered By: Obaydah Daromar on 00-88-2636SKNR (RBC) [Mass/Vol]32.8 g/dL32.0-35.0 [facility] HospitalMCV Auto (RBC) [Entitic vol]Ordered By: Obaydah Daromar on 04-21-7444BVS (RBC) [Entitic vol]80.5 cN91-066KxihafkvbPaulding County HospitalMonocytes Auto (Bld) [#/Vol]Ordered By: Obaydah Daromar on 46-67-7592Emptnijiy (Bld) [#/Vol]0.4 10*3/uL0.0-0.8[facility] County HospitalMonocytes/100 WBC Auto (Bld)Ordered By: Obaydah Daromar on 05-10-2022 Monocytes/100 WBC (Bld)6.4 %.Paul[facility] County HospitalNeutrophils Auto (Bld) [#/Vol]Ordered By: Obaydah Daromar on 56-11-3854Gxzixrebrkx (Bld) [#/Vol] 3.2 10*3/uL1.8-7.7FSelect Medical TriHealth Rehabilitation HospitalNeutrophils/100 WBC Auto (Bld)Ordered By: Obaydah Daromar on 52-99-2403Ljyesdsccua/100 WBC (Bld)45.7 %. [facility] HospitalNo Panel InformationOrdered By: Obaydah Daromar on 59-57-5012Pqsuxoj Glucose CommentGlu2: cleaned meterPaulding County HospitalPlatelet mean volume Auto (Bld) [Entitic vol]Ordered By: Obaydah Daromar on 66-68-8281Rdxykira mean volume (Bld) [Entitic vol]8.3 fL6.3-10.7 [facility] HospitalPlatelets Auto (Bld) [#/Vol]Ordered By: Herminia Lawler on 21-42-0987Mhteuzfiu (Bld) [#/Vol]236 10*3/yJ915-027EuewtwjvePaulding County HospitalProtein [Mass/volume] in Serum or PlasmaOrdered By: Herminia Lawler on 23-58-5588Igdlhzv [Mass/Vol]5.8 g/dL6.1-7.9Paul[facility] County HospitalRBC Auto (Bld) [#/Vol]Ordered By: Herminia Lawler on 05-10-2022 RBC (Bld) [#/Vol]4.70 10*6/uL3.60-5.00[facility] Hospitalerum or plasma alanine aminotransferase measurement without P-5'-P (enzymatic activi Ordered By: Herminia Lawler on 21-87-4473XAA No additional P-5'-P [Catalytic activity/Vol]18 U/Q55-03UmbdguatfRiverside Methodist Hospitalerum or plasma albumin/globulin mass ratioOrdered By: Herminia Lawler on 05-10-2022 Albumin/Globulin [Mass ratio]1.0 {ratio}[facility] Hospitalerum or plasma alkaline phosphatase measurement (enzymatic activity/volume)Ordered By: Herminia Lawler on 40-19-9612MXM [Catalytic activity/Vol]75 U/L32-92 [facility] Hospitalerum or plasma aspartate aminotransferase measurement (enzymatic activity/volume)Ordered By: Herminia Lawler on 05-10-2022 AST [Catalytic activity/Vol]18 U/T11-71OlzjfdoyaRiverside Methodist Hospitalerum or plasma creatine kinase MB (CKMB)/total creatine kinase (CK) ratio by calcula Ordered By: Darrion Gilbert on 43-53-8201KX.MB Calc [Catalytic fraction]6.8 %0.00-2.50 [facility] Hospitalerum or plasma creatine kinase MB measurement (mass/volume)Ordered By: Darrion Gilbert on 81-66-0466KK.MB [Mass/Vol]3.3 ng/mL0.6-6.3 [facility] Hospitalerum or plasma total bilirubin measurement (mass/volume)Ordered By: Herminia Lawler on 63-34-9914Ryexiapdo [Mass/Vol]0.4 mg/dL0.3-1.2FSelect Medical TriHealth Rehabilitation HospitalACETONE SERUMon 78-40-1228JGRFCRO NegativeNormalNEGATIVEChildren'S Hospital For RehabilitationComment on above:Performed By: #### ACETON #### [facility] [address] [place] [address] Dr. Kesha Hernandez AUTO DIFFon 42-65-0132WRUG #0.0 103/ulNormal0.0-0.1The [facility] HospitalComment on above:Performed By: #### ACETON #### [facility] [address] [place] [address] Dr. Kesha AgueroBasophils/100 WBC (Bld)0.5 %Normal0.2-2.0[facility] Comment on above:Performed By: #### ACETON #### [facility] [address] [place] [address] Dr. Kesha Trimble #0.1 103/ulNormal0.0-0.7The [facility] HospitalComment on above: Performed By: #### ACETON #### [facility] [address] [place] [address] Dr. Kesha Sumnerosinophils/100 WBC (Bld)1.5 %Normal0.9-7.0[facility] Comment on above:Performed By: #### ACETON #### [facility] [address] [place] [address] Dr. Kesha Sumnerrythrocyte distribution width (RBC) [Ratio]14.1 %Tpzvat18.0-15.0 [facility] HospitalComment on above:Performed By: #### ACETON #### [facility] [address] [place] [address] Dr. Kesha AgueroHematocrit (Bld) [Volume fraction]40.7 %Bfmyop07.0-48.0The [facility] HospitalComment on above:Performed By: #### ACETON #### [facility] [address] [place] [address] Dr. Kesha AgueroHemoglobin (Bld) [Mass/Vol]13.0 g/rILrmlrs07.0-16.0The [facility] HospitalComment on above:Performed By: #### ACETON #### [facility] [address] [place] [address] Dr. Kesha Reynoso #0.01 10e3/ulNormal0.00-0.03The [facility] HospitalComment on above:Performed By: #### ACETON #### [facility] [address] [place] [address] Dr. Kesha Reynoso %0.1 %Normal0.0-0.5The [facility] HospitalComment on above: Performed By: #### ACETON #### [facility] [address] [place] [address] Dr. Kesha Mcintosh #2.6 103/ulNormal1.2-3.8The [facility] HospitalComment on above:Performed By: #### ACETON #### [facility] [address] [place] [address] Dr. Kesha Lirianohocytes/100 WBC (Bld)33.0 %Irqcuw89.5-60.0The [facility] HospitalComment on above:Performed By: #### ACETON #### [facility] [address] [place] [address] Dr. Kesha ThayerUAL DIFF REQNONormalThe [facility] HospitalComment on above: Performed By: #### ACETON #### [facility] [address] [place] [address] Dr. Kesha Ruano (RBC) [Entitic mass]26.5 pgCritically low26.7-34.0The [facility] HospitalComment on above:Performed By: #### ACETON #### [facility] [address] [place] [address] Dr. Kesha Ruano (RBC) [Mass/Vol]31.9 g/tZXdtkur68.9-35.2The [facility] HospitalComment on above:Performed By: #### ACETON #### [facility] [address] [place] [address] Dr. Kesha RuanoV (RBC) [Entitic vol]82.9 nEUbsigw23.0-99.0The [facility] on above:Performed By: #### ACETON #### [facility] [address] [place] [address] Dr. Kesha Ramírez #0.6 103/ulNormal0.3-0.8The [facility] HospitalComment on above:Performed By: #### ACETON #### [facility] [address] [place] [address] Dr. Kesha Riderocytes/100 WBC (Bld)7.1 %Normal1.7-12.0The [facility] Comment on above:Performed By: #### ACETON #### [facility] [address] [place] [address] Dr. Kesha Tijerina #4.5 103/ulNormal1.4-6.5The [facility] Hospitalment on above:Performed By: #### ACETON #### [facility] [address] [place] [address] Dr. Kesha Oliviautrophils/100 WBC (Bld)57.8 %Rzbfcv72.0-75.0The [facility] on above:Performed By: #### ACETON #### [facility] [address] [place] [address] Dr. Kesha Romerolet mean volume (Bld) [Entitic vol]10.4 fLNormal9.5-13.5The [facility] Hospitalment on above:Performed By: #### ACETON #### [facility] [address] [place] [address] Dr. Kesha AgueroPLT208 103/wlXfnmep747-077Yhp [facility] on above: Performed By: #### ACETON #### [facility] [address] [place] [address] Dr. Kesha AgueroRBC4.91 106/ulNormal4.20-5.40The [facility] on above:Performed By: #### ACETON #### [facility] [address] [place], [place] [address] Dr. Kesha AgueroWBC7.9 103/ulNormal4.0-11.0The [facility] HospitalComment on above: Performed By: #### ACETON #### [facility] [address] [place], [place] [address] Dr. Kesha Pruitt ABD/PELVIS WO W CONon 01-24-7879AKV ABD/PELVIS WO W CON EXAMINATION: CTA CHEST [...] Electronically authenticated by: [place] Date: 2022-05-09 07:19[facility] HospitalCholesterol [Mass/volume] in Serum or PlasmaOrdered By: Herminia Lawler on 97-75-3327Kunsooyzhuu [Mass/Vol]112 mg/xI279-279VhcwghdxgPaulding County HospitalComment on above:Chol less than 200 mg/dl low risk Chol 201-239 mg/dl borderline risk Chol 240 mg/dl and greater high riskCholesterol in LDL Calc [Mass/Vol]Ordered By: Herminia Lawler on 25-81-0782Fkmaqaxckko in LDL [Mass/Vol]51 mg/dL0-100 [facility] HospitalComment on above:LDL ATP III CLASSIFICATION LDL less than 100 mg/dL Optimal LDL 100-129 mg/dL Near or above optimal LDL 130-159 mg/dL Borderline high LDL 160-189 mg/dL High LDL greater than 189 mg/dL Very highCholesterol in VLDL Calc [Mass/Vol]Ordered By: Herminia Lawler on 14-26-4614Sglzhctcdyw in VLDL [Mass/Vol]31 mg/dLPaulding County HospitalCovid-19 PCR (CVDTBH)on 84-16-4085OCAV-CoV-2 (COVID-19) RNA YARA+probe Ql (Unsp spec)Not detectedNormalNOT DETECTEDChildren'S Hospital For Rehabilitation Comment on above:Result Comment: When diagnostic testing is negative, the [...] for this test is supported by the [place] Health and Human Service's declaration that circumstances exist to justify the emergency use of in vitro diagnostics for the detection and/or diagnosis of the virus that causes COVID-19. This EUA will remain in effect for the duration of the COVID-19 declaration justifying emergency of IVDs, unless it is terminated or revoked by the FDA (after which the test may no longer be used).Performed By: #### GARYTB #### [facility] [address] [place] [address] Dr. Kesha AgueroGlucflip mean value [Mass/volume] in Blood Estimated from glycated hemoglobinOrdered By: Herminia Lawler on 51-79-4218Wphhvyc glucose Estimated from glycated hemoglobin (Bld) [Mass/Vol]263 mg/dLPaulding County HospitalHemoglobin A1c percentageOrdered By: Herminia Lawler on 72-78-1496HcR8a (Bld) [Mass fraction]10.8 %4.3-5.6FSelect Medical TriHealth Rehabilitation HospitalComment on above:Increased risk for diabetes: 5.7 - 6.4 diabetes: >6.4 glycemic control for adults with diabetes: <7.0LIPASEon 27-48-0290Jncmvh [Catalytic activity/Vol]287.0 U/NAwhpst69.0-393.0[facility] Hospital For RehabilitationComment on above:Performed By: #### GARYTBH #### [facility] [address] [place] [address] Dr. Kesha AgueroLaboratory - CoagulationOrdered By: Herminia Lawler on 05-09-2022 PT Coag (PPP) [Time]11.6 s9.0-12.9Paulding County HospitalPOINT OF CARE GLUCOSEon 98-06-2255Yhpcmnz [Mass/Vol]387 mg/dLCritically tbem42-644DrmChildren'S Hospital For RehabilitationComment on above:Performed By: #### GARYTBH #### [facility] [address] [place] [address] Dr. Kesha AgueroGlucose [Mass/Vol]432 mg/dLCritically kssy86-427Xog [facility] HospitalComment on above:Performed By: #### POCGLUC #### [facility] [address] [place] [address] Dr. Kesha Freeman 14(COMP METB)on 24-39-8970Pescjbw [Mass/Vol]3.5 g/dLNormal 3.4-5.0The [facility] HospitalComment on above:Performed By: #### CVDTBH #### [facility] [address] [place] [address] Dr. Kesha AgueroAlbumin/Globulin [Mass ratio]1.0 {ratio}NormalThe [facility] HospitalComment on above:Performed By: #### CVDTBH #### [facility] [address] [place] [address] Dr. Kesha AvalosP [Catalytic activity/Vol]115 U/VUamegq66-734Cpm [facility] HospitalComment on above:Performed By: #### CVDTBH #### [facility] [address] [place] [address] Dr. Kesha AvalosT [Catalytic activity/Vol]24 U/VUgegko37-40Ttc [facility] HospitalComment on above:Performed By: #### CVDTBH #### [facility] [address] [place] [address] Dr. Kesha Bolaños gap [Moles/Vol]15.3 mmol/LNormalThe [facility] Comment on above:Performed By: #### CVDTBH #### [facility] [address] [place] [address] Dr. Kesha AgueroAST [Catalytic activity/Vol]16 U/NFeyibn95-86Sja [facility] HospitalComment on above:Performed By: #### CVDTBH #### [facility] [address] [place] [address] Dr. Kesha AgueroBilirubin [Mass/Vol]0.4 mg/dLNormal0.2-1.0The [facility] Comment on above:Performed By: #### CVDTBH #### [facility] [address] [place] [address] Dr. Kesha AgueroCalcium [Mass/Vol]9.6 mg/dLNormal8.5-10.1The [facility] Comment on above:Performed By: #### CVDTBH #### [facility] [address] [place] [address] [address] Kesha AgueroChloride [Moles/Vol]102 mmol/GWgagrn62-828Dgs [facility] Comment on above:Performed By: #### CVDTBH #### [facility] [address] [address] [address] Kesha AgueroCO2 [Moles/Vol]19.7 mmol/LCritically low21.0-32.0The [facility] HospitalComment on above:Performed By: #### CVDTBH #### [facility] [address] [place] [address] Dr. Kesha AgueroCreatinine [Mass/Vol]1.22 mg/dLCritically high0.55-1.02The [facility] HospitalComment on above:Performed By: #### CVDTBH #### [facility] [address] [place] [address] Dr. Rebolledo ChangEGFR-AF WLYZFITP55 mL/min/1.49p2Famdsxdyaz low>=60The [facility] HospitalComment on above:Performed By: #### CVDTBH #### [facility] [address] [place] [address] Dr. Kesha SumnerGFR-NON AF RMCSCXJO85 mL/min/1.86j7Mkogmkfrtf low>=60The [facility] HospitalComment on above:Performed By: #### CVDTBH #### [facility] [address] [place] [address] Dr. Kesha AgueroGlobulin (S) [Mass/Vol]3.6 g/dLNormalThe [facility] HospitalComment on above:Performed By: #### CVDTBH #### [facility] [address] [place] [address] Dr. Kesha AgueroGlucose [Mass/Vol]499 mg/dLCritically tiea38-392Mvj [facility] HospitalComment on above:Performed By: #### CVDTBH #### [facility] [address] [address] [address] Kesha AgueroPotassium [Moles/Vol]4.0 mmol/LNormal3.5-5.1The [facility] Comment on above:Performed By: #### CVDTBH #### [facility] [address] [address] [address] Kesha AgueroProtein [Mass/Vol]7.1 g/dLNormal6.4-8.2The [facility] Comment on above:Performed By: #### CVDTBH #### [facility] [address] [address] [address] Kesha AgueroSodium [Moles/Vol]133 mmol/LCritically czc547-165Fax [facility] HospitalComment on above:Performed By: #### CVDTBH #### [facility] [address] [address] [address] Kesha AgueroUrea nitrogen [Mass/Vol]27.0 mg/dLCritically high7.0-18.0The [facility] HospitalComment on above:Performed By: #### CVDTBH #### [facility] [address] [address] [address] Kesha Olivier nitrogen/Creatinine [Mass ratio]22.1 mg/mgNormalThe [facility] HospitalComment on above:Performed By: #### CVDTBH #### [facility] [address] [place] [address] Dr. Kesha AgueroPhosphate [Mass/volume] in Serum or PlasmaOrdered By: Herminia Lawler on 62-92-6288Hyhsrjrfr [Mass/Vol]3.5 mg/dL2.5-4.6FSelect Medical TriHealth Rehabilitation HospitalPlatelet poor plasma international normalized ratio (INR) by coagulation assay (relatOrdered By: Herminia Lawler on 07-06-6586NJV Coag (PPP) [Relative time]1.0 {INR}[facility] HospitalComment on above:INR Therapeutic Range A) Pre- and Peroperative OAT started two weeks before surgery. NOT HIP SURGERY: 1.5 - 2.5 HIP SURGERY: 2 - 3 B) Primary and secondary prevention of venous THROMBOSIS: 2 - 3 C) Active venous thrombosis, pulmonary embolism and prevention of recurrent venous thrombosis: 2 - 3 D) Prevention of arterial thromboembolism including patients with mechanical heart valves: 3 - 4.5Serum or plasma high density lipoprotein (HDL) cholesterol measurementOrdered By: Herminia Tysonr on 58-71-1234Pwijvxmsswj in HDL [Mass/Vol]30 mg/nC52-02YsbmgxbhcPaulding County HospitalComment on above:HDL CHOL ATP-III CLASSIFICATION Cardiovascular Risk HDL > or equal to 60 mg/dL LOW HDL < 40 mg/dL HIGHSerum or plasma total cholesterol/high density lipoprotein (HDL) cholesterol mass ratOrdered By: [facility] on 05-09-2022 Cholesterol.total/Cholesterol in HDL [Mass ratio]3.7 {ratio}<5.0Paulding County HospitalTROPONIN, HIGH SENSITIVITYon 67-70-9562EYRPKZ686.9 pg/mL Critically high4.0-51.3TGood Samaritan HospitalComment on above:Result Comment: CUT-OFF POINTS HAVE BEEN ESTABLISHED BASED ON THE FOURTH UNIVERSAL DEFINITIONS OF MYOCARDIAL INFARCTION. THE UPPER REFERENCE LIMIT (URL) OF TROPONIN, DEFINED THE 99TH PERCENTILE OF cTnI DISTRIBUTION IN A REFERENCE POPULATION, HAS BEEN CONFIRMED THE DECISION THRESHOLD FOR [place] DIAGNOSIS.Performed By: #### ACETON #### [facility] [address] [place] [address] Dr. Kesha AgueroHSTROP24.7 pg/mLNormal4.0-51.3TGood Samaritan HospitalComment on above:Result Comment: CUT-OFF POINTS HAVE BEEN ESTABLISHED BASED ON THE FOURTH UNIVERSAL DEFINITIONS OF MYOCARDIAL INFARCTION. THE UPPER REFERENCE LIMIT (URL) OF TROPONIN, DEFINED THE 99TH PERCENTILE OF cTnI DISTRIBUTION IN A REFERENCE POPULATION, HAS BEEN CONFIRMED THE DECISION THRESHOLD FOR [place] DIAGNOSIS.Performed By: #### CVDTBH #### [facility] [address] [place] [address] Dr. Kesha AgueroTriglyceride [Mass/volume] in Serum or PlasmaOrdered By: Obcandy Chrisomar on 30-63-0117Ceqliefolzrd [Mass/Vol]156 mg/gG21-995VhiwqzebcPaulding County HospitalComment on above:TRIG ATP III CLASSIFICATION TRIG less than 150 mg/dL Normal TRIG 150-199 mg/dL Borderline high TRIG 200-500 mg/dL High TRIG greater than 500 mg/dL Very high Standard traceable to the Center for Disease Conrtrol and Prevention (CDC) test method.Covid-19 PCR (CVDTB)on 66-48-3495XMLE-CoV-2 (COVID-19) RNA YARA+probe Ql (Unsp spec)Not detectedNormalNOT DETECTEDThe [facility] HospitalComment on above: Result Comment: This test is not yet approved or cleared by the [place] FDA. When there are no FDA-approved or cleared tests available, and other criteria are met, FDA can make tests available under an emergency access mechanism called an Emergency Use Authorization (EUA). The EUA for this test is supported by the [place] of Health and Human Service's (HHS's) declaration [...] of clinical signs and symptoms consistent with SARS-CoV-2.Performed By: #### CVDTBH #### [facility] [address] [place] [address] Dr. Kesha AgueroPROF CHEM 8 (BAS METB)on 38-18-7842Fckho gap [Moles/Vol]13.7 mmol/LNormalThe [facility] HospitalComment on above:Performed By: #### DDIM #### [facility] [address] [address] [address] Kesha AgueroCalcium [Mass/Vol]9.8 mg/dLNormal8.5-10.1The [facility] Comment on above:Performed By: #### DDIM #### [facility] [address] [address] [address] Kesha AgueroChloride [Moles/Vol]102 mmol/VKlvruq70-154Fat [facility] Comment on above:Performed By: #### DDIM #### [facility] [address] [address] [address] Kesha AgueroCO2 [Moles/Vol]26.0 mmol/STcuzzb21.0-32.0The [facility] Comment on above:Performed By: #### DDIM #### [facility] [address] [address] [address] Kesha AgueroCreatinine [Mass/Vol]1.22 mg/dLCritically high0.55-1.02The [facility] HospitalComment on above:Performed By: #### DDIM #### [facility] [address] [place] [address] Dr. Kesha SumnerGFR-AF JLACQDSX99 mL/min/1.32f3Zneushittm low>=60The [facility] HospitalComment on above:Performed By: #### DDIM #### [facility] [address] [place] [address] Dr. Kesha SumnerGFR-NON AF WPFOJXBL40 mL/min/1.28c0Fncqyufsud low>=60The [facility] HospitalComment on above:Performed By: #### DDIM #### [facility] [address] [place] [address] Dr. Kesha AgueroGlucose [Mass/Vol]323 mg/dLCritically kava56-553Gnk [facility] HospitalComment on above:Performed By: #### DDIM #### [facility] [address] [place] [address] Dr. Kesha AgueroPotassium [Moles/Vol]4.7 mmol/LNormal3.5-5.1The [facility] Comment on above:Performed By: #### DDIM #### [facility] [address] [place] [address] Dr. Kesha AgueroSodium [Moles/Vol]137 mmol/TPccpty103-476Hur [facility] Comment on above:Performed By: #### DDIM #### [facility] [address] [place] [address] Dr. Kesha AgueroUrea nitrogen [Mass/Vol]31.0 mg/dLCritically high7.0-18.0[facility] Hospital For RehabilitationComment on above:Performed By: #### DDIM #### [facility] [address] [place], [place] [address] Dr. Kesha AgueroUrea nitrogen/Creatinine [Mass ratio]25.4 mg/mgNormalThe [facility] HospitalComment on above:Performed By: #### DDIM #### [facility] [address] [place], [place] [address] Dr[address] Kesha AgueroCardiovascular Lab Reporton 26-62-1512Eqmnpecfdtnuej Lab Report [facility] Patient Name: Shahbaz [facility] A MR #: [id number] Department of Physician: Edison Gibbs M.D. Division of Service Date: 04/21/2022 Cardiology Birthdate: 1940 Adult Cardiovascular Room #: [place] [address] Cardiovascular Laboratory Report CLINICAL PRESENTATION: The patient is an 82-year-old female with past medical history significant for hypertension, hyperlipidemia, CAD, PCI to ramus, TAR MAN LAD, and systolic heart failure with EF [...] infiltrated over the left radial artery. A 6-[place] for [employer] Glidesheath slender was placed in the left radial artery. Radial anti-vasospasm cocktail of verapamil and nitroglycerin was administered to prevent spasm. All catheter exchanges were made over the Spodly guidewire. This was a planned PCI procedure. Heparin anticoagulation was administered and ACT was maintained greater than 250 seconds. A cheerapp 6-[place] JR4 guide was engaged to right coronary [...] 0% residual stenosis througho (more content not included)...NormalThe [facility] Medical CenterCovid-19 PCR (CVDTBH)on 51-41-0035GZVM-CoV-2 (COVID-19) RNA YARA+probe Ql (Unsp spec)Not detectedNormalNOT DETECTEDThe [facility] HospitalComment on above: Result Comment: This test is not yet approved or cleared by the [place] FDA. When there are no FDA-approved or cleared tests available, and other criteria are met, FDA can make tests available under an emergency access mechanism called an Emergency Use Authorization (EUA). The EUA for this test is supported by the [place] Health and Human Service's (HHS's) declaration [...] of clinical signs and symptoms consistent with SARS-CoV-2.Performed By: #### DDIM #### [facility] [address] [place] [address] Dr. Kesha AgueroHEMOGRAM AND PLATELon 64-37-4865Vggkfpnkgf (Bld) [Volume fraction]41.6 %Qxjvuq62.0-48.0The [facility] HospitalComment on above:Performed By: #### CVDTBH #### [facility] [address] [place] [address] Dr. Kesha AgueroHemoglobin (Bld) [Mass/Vol]13.2 g/mIKznmjx90.0-16.0The [facility] HospitalComment on above:Performed By: #### CVDTBH #### [facility] [address] [place] [address] Dr. Kesha Ruano (RBC) [Entitic mass]26.2 pgCritically low26.7-34.0The [facility] HospitalComment on above:Performed By: #### CVDTBH #### [facility] [address] [place] [address] Dr. Kesha Ruano (RBC) [Mass/Vol]31.7 g/gSWgsmou78.9-35.2The [facility] HospitalComment on above:Performed By: #### CVDTBH #### [facility] [address] [place] [address] Dr. Kesha Ruano (RBC) [Entitic vol]82.7 rUWqjnxg77.0-99.0The [facility] HospitalComment on above:Performed By: #### CVDTBH #### [facility] [address] [place] [address] Dr. Kesha AgueroPLT272 103/beMnkggc398-593Wyd [facility] HospitalComment on above: Performed By: #### CVDTBH #### [facility] [address] [place] [address] Dr. Kesha AgueroRBC5.03 106/ulNormal4.20-5.40The [facility] HospitalComment on above:Performed By: #### CVDTBH #### [facility] [address] [place] [address] Dr. Kesha AgueroWBC5.9 103/ulNormal4.0-11.0The [facility] HospitalComment on above: Performed By: #### CVDTBH #### [facility] [address] [address] [address] Kesha GarciaF CHEM 8 (BAS METB)on 22-13-7092Rdetd gap [Moles/Vol]12.8 mmol/LNormalThe [facility] HospitalComment on above:Performed By: #### DDIM #### [facility] [address] [address] [address] Kesha AgueroCalcium [Mass/Vol]9.6 mg/dLNormal8.5-10.1The [facility] Comment on above:Performed By: #### DDIM #### [facility] [address] [place] [address] Dr. Kesha AgueroChloride [Moles/Vol]105 mmol/UWxmdhh43-636Yuu [facility] Comment on above:Performed By: #### DDIM #### [facility] [address] [address] [address] Kesha AgueroCO2 [Moles/Vol]25.6 mmol/TBtrjvu98.0-32.0The [facility] Comment on above:Performed By: #### DDIM #### [facility] [address] [address] [address] Kesha AgueroCreatinine [Mass/Vol]1.07 mg/dLCritically high0.55-1.02The [facility] HospitalComment on above:Performed By: #### DDIM #### [facility] [address] [address] [address] Rebolledo ChangEGFR-AF UNNOSXVC50 mL/min/1.81s7Obnkaageyu low>=60The [facility] HospitalComment on above:Performed By: #### DDIM #### [facility] [address] [address] [address] Kesha SumnerGFR-NON AF JDVBPYWM60 mL/min/1.01e5Nuoaosjvhq low>=60The [facility] HospitalComment on above:Performed By: #### DDIM #### [facility] [address] [address] [address] Kesha AgueroGlucose [Mass/Vol]264 mg/dLCritically cmvy75-514Wtw [facility] HospitalComment on above:Performed By: #### DDIM #### [facility] [address] [address] [address] Kesha AgueroPotassium [Moles/Vol]4.4 mmol/LNormal3.5-5.1The [facility] Comment on above:Performed By: #### DDIM #### [facility] [address] [address] [address] Kesha AgueroSodium [Moles/Vol]139 mmol/JWhpwyl957-248Rel [facility] Comment on above:Performed By: #### DDIM #### [facility] [address] [place] [address] Dr. Kesha AgueroUrea nitrogen [Mass/Vol]17.0 mg/dLNormal7.0-18.0The [facility] HospitalComment on above:Performed By: #### DDIM #### [facility] [address] [place] [address] Dr. Kesha AgueroUrea nitrogen/Creatinine [Mass ratio]15.9 mg/mgNormalThe [facility] HospitalComment on above:Performed By: #### DDIM #### [facility] [address] [place] [address] Dr. Kesha AgueroMAGNESIUMon 35-18-3225Javftlqwq [Mass/Vol]1.8 mg/dLNormal1.8-2.4 The [facility] HospitalComment on above:Performed By: #### DDIM #### [facility] [address] [place] [address] Dr. Kesha AgueroPROF CHEM 8 (BAS METB)on 78-36-3754Wnxsr gap [Moles/Vol]13.9 mmol/LNormalThe [facility] HospitalComment on above:Performed By: #### DDIM #### [facility] [address] [place] [address] Dr. Kesha AgueroCalcium [Mass/Vol]9.8 mg/dLNormal8.5-10.1The [facility] Comment on above:Performed By: #### DDIM #### [facility] [address] [address] [address] Kesha AgueroChloride [Moles/Vol]101 mmol/DZjmprf00-875Skx [facility] Comment on above:Performed By: #### DDIM #### [facility] [address] [address] [address] Kesha AgueroCO2 [Moles/Vol]24.8 mmol/KMduuaa16.0-32.0The [facility] Comment on above:Performed By: #### DDIM #### [facility] [address] [address] [address] Kesha AgueroCreatinine [Mass/Vol]1.28 mg/dLCritically high0.55-1.02The [facility] HospitalComment on above:Performed By: #### DDIM #### [facility] [address] [address] [address] Rebolledo ChangEGFR-AF OMNWQPCY48 mL/min/1.96s5Qtycloulqp low>=60The [facility] HospitalComment on above:Performed By: #### DDIM #### [facility] [address] [place] [address] Dr. Kesha SumnerGFR-NON AF EVYMSGPT56 mL/min/1.00f0Rssgrvdffy low>=60The [facility] HospitalComment on above:Performed By: #### DDIM #### [facility] [address] [address] [address] Kesha AgueroGlucose [Mass/Vol]214 mg/dLCritically pvwo52-017Yyi [facility] HospitalComment on above:Performed By: #### DDIM #### [facility] [address] [address] [address] Kesha AgueroPotassium [Moles/Vol]4.7 mmol/LNormal3.5-5.1The [facility] Comment on above:Performed By: #### DDIM #### [facility] [address] [place] [address] Dr. Kesha AgueroSodium [Moles/Vol]135 mmol/LCritically rjc512-293Ltk [facility] HospitalComment on above:Performed By: #### DDIM #### [facility] [address] [address] [address] Kesha Olivier nitrogen [Mass/Vol]26.0 mg/dLCritically high7.0-18.0The [facility] HospitalComment on above:Performed By: #### DDIM #### [facility] [address] [address] [address] Kesha Olivier nitrogen/Creatinine [Mass ratio]20.3 mg/mgNormalThe [facility] HospitalComment on above:Performed By: #### DDIM #### [facility] [address] [address] [address] Kesha AgueroCardiovascular Lab Reporton [id number] Lab Report [facility]: [id number] Department of Physician: Edison Gibbs MMilena Division of Service Date: 03/07/2022 Cardiology Birthdate: 1940 Adult Cardiovascular Room #: [facility] [address] [facility] [place] [address] Cardiovascular Laboratory Report CLINICAL PRESENTATION: The patient [...] mid LAD has 100% chronic total occlusion (TAR MAN). The ramus coronary artery has a proximal [...] ultrasound guidance and micropuncture access technique, a 6-New Zealander sheath was placed in right internal jugular [...] anesthetized with 1% lidocaine and then a 6-[place]ander Terumo Glidesheath slender placed in the left radial artery. The radial anti-vasospasm cocktail of nitroglycerin 200 mcg and verapamil 2.5 mg administered through the sheath. All catheters and sheaths were made over the Spodly guidewire. A 5-[place] Zealander JR 5 was used to engage the right coronary artery. 5-[place]ander JL 3.5 was used to engage the left main coronary artery. Coronary angiogram was performed in multiple orthogonal views using hand injection of contrast. 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 I elected to proceed with PCI given the patient's advanced age. A Cordis 6-New Zealander XB 3.0 guide was engaged in left main coronary artery. Heparin anticoagulation was used for this procedure. ACT was maintained greater than 200 seconds. Run-through wire was manipulated into the coronary arteries. First, I probed the LAD and it did in fact behave as a TAR MAN. Therefore, I turned my attention to the ramus coronary artery. The proximal ramus had 99% stenosis. The run-through wire has been delivered to the distal ramus. The lesion was predilated with the Spins.FM 2.5 x 15 mm balloon at 12 atmospheres. Next, a Synergy 2.5 x 16 mm drug-eluting stent was deployed in the proximal ramus. Careful attention was placed to land the stent at the ostium of the ramus and not protrude into the left main coronary artery. The stent was deployed at 12 atmospheres. Next, the stent was post dilated with the Spins.FM 2.5 x 15 mm balloon. The b (more content not included)...NormalThe [facility] CenterPO SARS COV2 IDon [id number]-CoV-2 (COVID-19) RNA YARA+probe Ql (Unsp spec)NegativeNormal NEGATIVEThe [facility] CenterComment on above:Result Comment: ID NOW COVID-19 assay performed on the ID NOW [...] Waiver, Certificate of Compliance, or Certificate of Accreditation.Performed By: #### [id number] #### [facility] [address] [place] [address], [facility] AUTO DIFFon [id number] #0.1 103/ulNormal0.0-0.1The [facility] HospitalComment on above:Performed By: #### CVDTBH #### [facility] [address] [place] [address] Dr. Kesha AgueroBasophils/100 WBC (Bld)0.7 %Normal0.2-2.0[facility] Comment on above:Performed By: #### CVDTBH #### [facility] [address] [place] [address] Dr. Kesha Trimble #0.1 103/ulNormal0.0-0.7The [facility] HospitalComment on above: Performed By: #### CVDTBH #### [facility] [address] [place] [address] Dr. Kesha Sumnerosinophils/100 WBC (Bld)1.2 %Normal0.9-7.0The [facility] Comment on above:Performed By: #### CVDTBH #### [facility] [address] [place] [address] Dr. Kesha Sumnerrythrocyte distribution width (RBC) [Ratio]14.0 %Jvnfza80.0-15.0 The [facility] HospitalComment on above:Performed By: #### CVDTBH #### [facility] [address] [place] [address] Dr. Kesha AgueroHematocrit (Bld) [Volume fraction]40.9 %Hgfbxm58.0-48.0[facility] For RehabilitationComment on above:Performed By: #### CVDTBH #### [facility] [address] [place] [address] Dr. Kesha AgueroHemoglobin (Bld) [Mass/Vol]13.1 g/dCQsursv97.0-16.0The [facility] HospitalComment on above:Performed By: #### CVDTBH #### [facility] [address] [place] [address] Dr. Kesha Reynoso #0.03 10e3/ulNormal0.00-0.03The [facility] HospitalComment on above:Performed By: #### CVDTBH #### [facility] [address] [place] [address] Dr. Kesha Reynoso %0.3 %Normal0.0-0.5The [facility] HospitalComment on above: Performed By: #### CVDTBH #### [facility] [address] [place] [address] Dr. Kesha Liriano #3.4 103/ulNormal1.2-3.8The [facility] HospitalComment on above:Performed By: #### CVDTBH #### [facility] [address] [place] [address] Dr. Kesha Lirianohocytes/100 WBC (Bld)36.9 %Eypftm48.5-60.0The [facility] HospitalComment on above:Performed By: #### CVDTBH #### [facility] [address] [place] [address] Dr. Kesha ThayerUAL DIFF REQNONormalThe [facility] HospitalComment on above: Performed By: #### CVDTBH #### [facility] [address] [place] [address] Dr. Kesha Acuna (RBC) [Entitic mass]26.5 pgCritically low26.7-34.0The [facility] HospitalComment on above:Performed By: #### CVDTBH #### [facility] [address] [place] [address] Dr. Kesha Ruano (RBC) [Mass/Vol]32.0 g/tXIrjfvq47.9-35.2The [facility] HospitalComment on above:Performed By: #### CVDTBH #### [facility] [address] [place] [address] Dr. Kesha Ruano (RBC) [Entitic vol]82.8 sVKgfcqn06.0-99.0The [facility] HospitalComment on above:Performed By: #### CVDTBH #### [facility] [address] [place] [address] Dr. Kesha Ramírez #0.6 103/ulNormal0.3-0.8The [facility] HospitalComment on above:Performed By: #### CVDTBH #### [facility] [address] [place] [address] Dr. Kesha Riderocytes/100 WBC (Bld)6.5 %Normal1.7-12.0The [facility] Comment on above:Performed By: #### CVDTBH #### [facility] [address] [place] [address] Dr. Kesha Tijerina #4.9 103/ulNormal1.4-6.5The [facility] HospitalComment on above:Performed By: #### CVDTBH #### [facility] [address] [place] [address] Dr. Kesha Oliviautrophils/100 WBC (Bld)54.4 %Yzwodb68.0-75.0The [facility] HospitalComment on above:Performed By: #### CVDTBH #### [facility] [address] [place] [address] Dr. Kesha Alcantara mean volume (Bld) [Entitic vol]9.5 fLNormal9.5-13.5The [facility] HospitalComment on above:Performed By: #### CVDTBH #### [facility] [address] [place] [address] Dr. Kesha AgueroPLT271 103/nqKmpesd717-808Uiz [facility] HospitalComment on above: Performed By: #### CVDTBH #### [facility] [address] [place] [address] Dr. Kesha AgueroRBC4.94 106/ulNormal4.20-5.40The [facility] HospitalComment on above:Performed By: #### CVDTBH #### [facility] [address] [place] [address] Dr. Kesha AgueroWBC9.1 103/ulNormal4.0-11.0The [facility] HospitalComment on above: Performed By: #### CVDTBH #### [facility] [address] [place] [address] Dr. Kesha AgueroCovid-19 PCR ([facility])on 98-47-2161WXYW-CoV-2 (COVID-19) RNA YARA+probe Ql (Unsp spec)Not detectedNormalNOT DETECTEDThe [facility] Comment on above:Result Comment: When diagnostic testing is negative, the [...] for this test is supported by the [place] of Health and Human Service's declaration that circumstances exist to justify the emergency use of in vitro diagnostics for the detection and/or diagnosis of the virus that causes COVID-19. This EUA will remain in effect for the duration of the COVID-19 declaration justifying emergency of IVDs, unless it is terminated or revoked by the FDA (after which the test may no longer be used).Performed By: #### ACETON #### [facility] [address] [place] [address] Dr. Kesha AgueroPROF CHEM 8 (BAS METB)on 16-80-3875Tqzhv gap [Moles/Vol]14.3 mmol/LNormalChildren'S Hospital For RehabilitationComment on above:Performed By: #### BMP #### [facility] [address] [place] [address] Dr. Kesha AgueroCalcium [Mass/Vol]9.7 mg/dLNormal8.5-10.1[facility] Comment on above:Performed By: #### BMP #### [facility] [address] [place] [address] Dr. Kesha AgueroChloride [Moles/Vol]100 mmol/MMcxeev38-081WgdChildren'S Hospital For Rehabilitation Comment on above:Performed By: #### BMP #### [facility] [address] [address] [address] Kesha AgueroCO2 [Moles/Vol]27.2 mmol/ALzneyj40.0-32.0The [facility] Comment on above:Performed By: #### BMP #### [facility] [address] [address] [address] Kesha AgueroCreatinine [Mass/Vol]1.34 mg/dLCritically high0.55-1.02The [facility] HospitalComment on above:Performed By: #### BMP #### [facility] [address] [address] [address] Rebolledo ChangEGFR-AF QOWOWXDV01 mL/min/1.06o5Dyeyogbtmm low>=60The [facility] HospitalComment on above:Performed By: #### BMP #### [facility] [address] [place] [address] Dr. Rebolledo ChangEGFR-NON AF FRHZRWTU47 mL/min/1.55c6Ewnhtugyrg low>=60The [facility] HospitalComment on above:Performed By: #### BMP #### [facility] [address] [address] [address] Kesha AgueroGlucose [Mass/Vol]232 mg/dLCritically ltfa66-816Yfj [facility] HospitalComment on above:Performed By: #### BMP #### [facility] [address] [address] [address] Kesha AgueroPotassium [Moles/Vol]4.5 mmol/LNormal3.5-5.1The [facility] Comment on above:Performed By: #### BMP #### [facility] [address] [address] [address] Kesha AgueroSodium [Moles/Vol]137 mmol/ZSgehqv202-556Icw [facility] Comment on above:Performed By: #### BMP #### [facility] [address] [address] [address] Kesha AgueroUrea nitrogen [Mass/Vol]22.0 mg/dLCritically high7.0-18.0The [facility] HospitalComment on above:Performed By: #### BMP #### [facility] [address] [place], [place] [address] Dr. Kesha AgueroUrea nitrogen/Creatinine [Mass ratio]16.4 mg/mgNoClinton Memorial HospitalComment on above:Performed By: #### BMP #### [facility] [address] [place], [place] [address] Dr. Rebolledo ChangECHOCARDIO M/2D COMPLETEon [id number] M/2D COMPLETE Patient: TERE HARTMANN Exam Date: 02/11/2022 : 1940 Gender:F Ordering : DR RODRICK BUTLER M.D. Admission #: [id number] Family : Order #: [id number] CLICK HERE TO VIEW EXAM ECHOCARDIOGRAM REPORT [...] Area(A4C): 23.90 cm2 Left Atrium Systolic Volume(A2C): 61606 mm3 Left Atrium Systolic Volume(A4C): 55609 mm3 Mitral Valve MV E to A [...] by: Enrique Jackson M.D. on 02/11/2022 at 18:48[facility] STRESS/REST MULTIon [id number] STRESS/REST MULTIPatient: TERE HARTMANN Exam Date: 02/11/2022 : 1940 Gender:F Ordering : DR RODRICK BUTLER M.D. Admission #: [id number] Family : Order #: [id number] CLICK HERE TO VIEW EXAM RADIOLOGY REPORT [...] DEFECT: LOCATION: Mid-anterior. Mid-anteroseptal. Mid-anterolateral. Apical anterior. [place]. SIZE: Large (5 or more segments). SEVERITY: [...] by: Louis Diego M.D. on 02/11/2022 at 14:41[facility] Vital Signs Date TimeVital SignValuePerforming ItjncwzolQtvisiyk89-86-2804 13:51-0500Body aesfcw149.2 cmRodrick Butler MD Work Phone: [facility] HospitalLbwhmuryre59-36-7210 13:51-0500Body mass index (BMI) [Ratio]24.43 kg/k6OdoixtRodrick Butler MD Work Phone: [facility]OC[facility] HospitalVdhryodekp04-14-3377 13:51-0500Body .76 kgRodrick Butler MD Work Phone: 1(235)[facility]-[address] [place], [place] [address]Qcrijyzowv74-39-4035 13:51-0500Diastolic blood vazcfkau09 mm[Hg]Rodrick Butler MD Work Phone: 1(750)[facility]-[address] [place], [place] [address]Frpqxcqcpf58-72-8868 13:51-0500Heart rate60 /min Rodrick Butler MD Work Phone: 1(163)[facility]-[address] [place], [place] [address]Bazhhpvkju61-94-7360 13:51-0500Respiratory rate16 /minDrichard Butler MD Work Phone: 1(942)[facility]-9013[facility] HospitalMwhtnnnmie99-74-7068 13:51-5487WcP0% (BldA) [Mass fraction]99 %Rodrick Butler MD Work Phone: 1(454)[facility]-4176[facility] HospitalZhgnscodvf64-59-9117 13:51-0500Systolic blood jzwlaelg174 mm[Hg]Rodrick Butler MD Work Phone: 1(721)[facility]-2422[facility] HospitalSixsbuxfgk99-82-8850 11:15-0400Body .2 cmRodrick Butler MD Work Phone: [phone])[facility]8045[facility] HospitalNvtpnxfuzb75-52-5605 11:15-0400Body mass index (BMI) [Ratio]23.81 kg/l8SpsqckRodrick Butler MD Work Phone: 1(755)[facility]6661[facility]OC[facility] HospitalUsrnyiozec55-40-6880 11:15-0400Body temperature 97.81 [degF]Rodrick Butler MD Work Phone: 1(531)[facility]-[address] [place], [place] [address]Uvusdktzmo12-19-1307 11:15-0400Body jmbocd37.95 kgRodrick Butler MD Work Phone: [facility] HospitalEtjatiydph00-86-6582 11:15-0400Diastolic blood xpoyoldb59 mm[Hg]Rodrick Butler MD Work Phone: [facility]OC[facility] HospitalXjnebmectf46-27-1391 11:15-0400Heart rate60 /min Rodrick Butler MD Work Phone: 1(134)[facility]-4785NOC[facility] HospitalGnbnislqhv44-85-7609 11:15-5056WfS7% (BldA) [Mass fraction]100 %Rodrick Butler MD Work Phone: 1(694)[facility]-1942NOC[facility] HospitalMudpduplyp27-34-7050 11:15-0400Systolic blood tzfbtbax322 mm[Hg]Rodrick Butler MD Work Phone: 1(136)[facility] [place], [place] [address]Nynefhyvub24-20-6564 09:47-0400Body jlxmje906.2 cmRodrick Butler MD Work Phone: 1(751)[facility] HospitalNOCedar County Memorial HospitalBjithvufqy13-92-7609 09:47-0400Body mass index (BMI) [Ratio]23.81 kg/l0IuxhgjRodrick Butler MD Work Phone: 1(932)[facility] [place], [place] [address]Wsmirnbrfp35-17-8055 09:47-0400Body usiguq51.95 kgRodrick Butler MD Work Phone: 1(416)[facility] [place], [place] [address]Gczqhjfxau18-29-5117 09:47-0400Diastolic blood oyqrqsez79 mm[Hg]Rodrick Butler MD Work Phone: 1(148)[facility] [place], [place] [address]Uazzejehli41-82-2484 09:47-0400Heart rate60 /min Rodrick Butler MD Work Phone: 1(162)[facility] HospitalLrtzvsysjl82-82-6805 09:47-0627DuM4% (BldA) [Mass fraction]97 %Rodrick Butler MD Work Phone: 1(054)[facility]677NOC[facility] HospitalOxfxtqyafh77-93-8379 09:47-0400Systolic blood ukrfwffk579 mm[Hg]Rodrick Butler MD Work Phone: 1(159)[facility]750NOC[facility] HospitalVkcoseowef32-92-9768 09:59-0400Body xhmeuh030.2 cmRodrick Butler MD Work Phone: 1(337)[facility]271NOC[facility] HospitalTeottumjhw29-82-3218 09:59-0400Body mass index (BMI) [Ratio]23.96 kg/a1KqckkoRodrick Butler MD Work Phone: 1(193)[facility]-8260NOC[facility] HospitalCgdcaunuae82-46-8394 09:59-0400Body .4 kg Rodrick Butler MD Work Phone: NOC[facility] HospitalUympgsbtee33-68-3560 09:59-0400Diastolic blood cdvhpgqe22 mm[Hg]Rodrick Butler MD Work Phone: [facility] HospitalKcwwelxmmn97-90-7681 09:59-0400Heart rate76 /min Rodrick Butler MD Work Phone: [phone] HospitalTlcyawcjpp39-60-9451 09:59-6781AbB7% (BldA) [Mass fraction]97 %Rodrick Butler MD Work Phone: NOC[facility] HospitalVfrfeelikv84-52-2224 09:59-0400Systolic blood ahedruzd819 mm[Hg]Rodrick Butler MD Work Phone: [phone] HospitalBbtlazgeas96-96-0000 08:24-0400Body elnlag604.2 cmKaren Hemmer PA Work Phone: [phone] HospitalDwsthdtkke35-71-2297 08:24-0400Body mass index (BMI) [Ratio]23.81 kg/c8Bloxo Hemmer PA Work Phone: [phone] HospitalIzfjjmnoqk35-85-8906 08:24-0400Body auukcq44.95 kgKaren Hemmer PA Work Phone: [phone] HospitalGvoatamitb57-83-1254 08:24-0400Diastolic blood ycqbtjiv01 mm[Hg]Beverly Hemmer PA Work Phone: [phone] HospitalRfombmytmu83-77-7977 08:24-0400Heart rate60 /min Beverly Hemmer PA Work Phone: NOC[facility] HospitalYcytwhngxc23-05-2915 08:24-4809BfT6% (BldA) [Mass fraction]98 %Beverly Hemmer PA Work Phone: NOC[facility] HospitalTkifuwzbag79-36-4041 08:24-0400Systolic blood mbzotxqt293 mm[Hg]Beverly Hemmer PA Work Phone: NOC[facility] HospitalPopaiwyrvh38-47-4695 10:44-0400Body bcypzs473.2 cmRodrick Butler MD Work Phone: 1(501)483-[address] [place], [place] [address]Igekjihmxn69-61-0480 10:44-0400Body mass index (BMI) [Ratio]24.28 kg/b1SkuxvkRodrick Butler MD Work Phone: [facility] HospitalTuuiavmhuq74-44-7628 10:44-0400Body htynqw26.31 kgRodrick Butler MD Work Phone: 1(891)[facility]-[address] [place], [place] [address]Qorklmrhmk67-77-1126 10:44-0400Diastolic blood ookoptjk45 mm[Hg]Rodrick Butler MD Work Phone: 1(683)[facility]-[address] [place], [place] [address]Wxuwthsjia98-56-8420 10:44-0400Heart rate62 /min Rodrick Butler MD Work Phone: 1(712)[facility] [place], [place] [address]Cwvqtrcsbj64-83-1466 10:44-8972NaX5% (BldA) [Mass fraction]97 %Rodrick Butler MD Work Phone: 1(703)[facility]-[address] [place], [place] [address]Hcsargolty90-18-5506 10:44-0400Systolic blood rdjnxabp791 mm[Hg]Rodrick Butler MD Work Phone: 1(982)[facility]-[address] [place], [place] [address]Dmvwmxtncx45-44-1457 10:38-0400Body uhczli990.2 cmRodrick Butler MD Work Phone: [phone] [place], [place] [address]Kznqgmhlxc77-60-4463 10:38-0400Body mass index (BMI) [Ratio]23.96 kg/p4IwgtbdRodrick Butler MD Work Phone: [facility] HospitalLvedhbkdzp13-21-8278 10:38-0400Body qyflsw80.4 kg Rodrick Butler MD Work Phone: 1(356)[facility]-[address] [address] [place], [place] [address]Mmdnkrrtfh37-33-0834 10:38-0400Diastolic blood mm[Hg]Rodrick Butler MD Work Phone: [phone] [place], [place] [address]Lyoerfblih90-82-6637 10:38-0400Heart rate60 /min Rodrick Butler MD Work Phone: [phone])[facility]-[address] HospitalJexmrltxgq16-60-9498 10:38-5461WcL1% (BldA) [Mass fraction]99 %Rodrick Butler MD Work Phone: [facility] HospitalXoegindfnl37-25-5997 10:38-0400Systolic blood uzttmucl957 mm[Hg]Rodrick Butler MD Work Phone: [facility] HospitalFfrqklxdvq70-90-8468 13:10-0500Body mass index (BMI) [Ratio]23.71 kg/p9ObhssjRodrick Butler MD Work Phone: [facility] HospitalUayisbpnkf51-54-2907 13:10-0500Body azzutu60.67 kgDadixie Butler MD Work Phone: [facility] HospitalRxepdbwscf96-93-3150 13:10-0500Diastolic blood ajkvyubk80 mm[Hg]Rodrick Butler MD Work Phone: [facility] HospitalYkdhagmcjy01-32-2102 13:10-0500Heart rate61 /min Rodrick Butler MD Work Phone: [facility] HospitalCibnlfaelz87-53-7321 13:10-0500Respiratory rate17 /minDrichard Butler MD Work Phone: [facility] HospitalVuawdmacps51-67-5838 13:10-5121YcX9% (BldA) [Mass fraction]97 %Rodrick Butler MD Work Phone: [facility] HospitalSzwcrxylnl01-46-9326 13:10-0500Systolic blood mm[Hg]Rodrick Butler MD Work Phone: [facility] HospitalCmeuvmumkm52-67-9215 14:27-0500Body qlpjki261.2 cmMushtaq Vick CONTROLS DESIGNER Work Phone: [facility] HospitalZyxlbtpkai57-75-3879 14:27-0500Body mass index (BMI) [Ratio]23.81 kg/m2Mushtaq Vick CONTROLS DESIGNER Work Phone: [facility] HospitalSzytilmgpi49-49-7058 14:27-0500Body kavfcw65.95 kgMushtaq Vick CONTROLS DESIGNER Work Phone: [facility] HospitalPbqczgaqxf08-46-9039 14:27-0500Diastolic blood trthnilq27 mm[Hg]Mushtaq Vick CONTROLS DESIGNER Work Phone: [facility] HospitalMownmuyybr86-71-5978 14:27-0500Heart rate64 /min Mushtaq Vick CONTROLS DESIGNER Work Phone: [facility] HospitalOxzblfdpgh22-94-1883 14:27-2921UlB8% (BldA) [Mass fraction]98 %Mushtaq Vick CONTROLS DESIGNER Work Phone: [facility] HospitalTjxjqjkpsm29-03-3929 14:27-0500Systolic blood hvidepmw023 mm[Hg]Mushtaq Vick CONTROLS DESIGNER Work Phone: [facility] HospitalSewwprzoau06-45-0234 11:08-0500Body rczovp982.2 cmKaren Hemmer PA Work Phone: [facility] HospitalAxtdyqsqkc14-47-3327 11:08-0500Body mass index (BMI) [Ratio]23.9 kg/u5Wncdf Hemmer PA Work Phone: [facility] HospitalLlndejhntj98-08-9847 11:08-0500Body uvzrnc54.22 kgKaren Hemmer PA Work Phone: [facility] HospitalQpxlbrzwwi06-25-6887 11:08-0500Diastolic blood pcsnolym22 mm[Hg]Beverly Hemmer PA Work Phone: [facility] HospitalNztbuyvxwq69-07-8457 11:08-0500Heart rate61 /min Beverly Hemmer PA Work Phone: [facility] HospitalIfghfhwgaa07-80-8008 11:08-0500Respiratory rate16 /minKaren Hemmer PA Work Phone: [facility] HospitalBprbmutrra39-33-1594 11:08-8554KjR7% (BldA) [Mass fraction]98 %Beverly Hemmer PA Work Phone: [facility] HospitalXitmqbvhtg32-98-2790 11:08-0500Systolic blood ltzzyzkd725 mm[Hg]Beverly Hemmer PA Work Phone: [facility] HospitalCxvzpcjsnz19-82-3049 13:01-0500Body zwvyis917.2 cmRodrick Butler MD Work Phone: [facility] HospitalVkupkmsvin92-91-9364 13:01-0500Body mass index (BMI) [Ratio]24.12 kg/c8UxspoiRodrick Butler MD Work Phone: [facility] HospitalGzjuoggrxs18-38-4063 13:01-0500Body gjcexm43.85 kgRodrick Butler MD Work Phone: [facility] HospitalQawrgbzqrn77-88-5822 13:01-0500Diastolic blood sgzmyvfi24 mm[Hg]Rodrick Butler MD Work Phone: [facility] HospitalCpwkjvhnkz01-45-7493 13:01-0500Heart rate61 /min Rodrick Butler MD Work Phone: [facility] HospitalXpfhvnxxdx50-16-4882 13:01-5543NkF5% (BldA) [Mass fraction]100 %Rodrick Butler MD Work Phone: [facility] HospitalAvmkytsgki79-11-4607 13:01-0500Systolic blood ssbnsuld236 mm[Hg]Rodrick Butler MD Work Phone: [facility] HospitalNwgucfwblc57-81-7355 11:41-0500Body vxzahn370.2 cmRodrick Butler MD Work Phone: [facility] HospitalKaervpznjg10-87-2977 11:41-0500Body mass index (BMI) [Ratio]23.65 kg/m8IxftxzRodrick Butler MD Work Phone: [facility] HospitalXlypxglmxb29-16-5474 11:41-0500Body .49 kgRodrick Butler MD Work Phone: [facility] HospitalJeuqaefmbq26-50-2709 11:41-0500Diastolic blood bkkdtnki37 mm[Hg]Rodrick Butler MD Work Phone: [facility] HospitalFgymgliyym17-28-5303 11:41-0500Heart rate60 /min Rodrick Butler MD Work Phone: [facility] HospitalNokdvrwksl52-78-4706 11:41-5514TyC7% (BldA) [Mass fraction]97 %Rodrick Butler MD Work Phone: [facility] HospitalQulhlahqyx27-68-1082 11:41-0500Systolic blood mm[Hg]Rodrick Butler MD Work Phone: [facility] HospitalWlthcarssn13-69-0354 11:35-0400Body .2 cmBeverly ZAMUDIO Work Phone: [facility] HospitalIdlilgxtcs96-36-9827 11:35-0400Body mass index (BMI) [Ratio]23.81 kg/b9Dfnpw Hemmer PA Work Phone: [facility] HospitalDnvpiqhjjg70-55-6614 11:35-0400Body pdasbj37.95 kgKaren Hemmer PA Work Phone: [facility] HospitalHjqdldtqhq37-14-7613 11:35-0400Diastolic blood mm[Hg]Beverly Hemmer PA Work Phone: [facility] HospitalAyzwgogqdd83-56-0555 11:35-0400Heart rate60 /min Beverly Hemmer PA Work Phone: [facility] HospitalKkqgzgynls69-26-5043 11:35-0400Respiratory rate16 /minKaren Hemmer PA Work Phone: [facility] HospitalZhpqfmdpbt44-87-0813 11:35-2830QpQ7% (BldA) [Mass fraction]99 %Beverly Hemmer PA Work Phone: [facility] HospitalCgwbizfnsa66-94-7780 11:35-0400Systolic blood wusscqdz910 mm[Hg]Beverly Hemmer PA Work Phone: [facility] HospitalUuenifcmlk90-85-3855 11:23-0400Body gyphbl166.2 cmRodrick Butler MD Work Phone: [facility] HospitalOkkgojjrod38-30-2086 11:23-0400Body mass index (BMI) [Ratio]23.65 kg/w5VbhpmsRodrick Butler MD Work Phone: [facility] HospitalIkecvalphl77-25-0169 11:23-0400Body nhkkea86.49 kgRodrick Butler MD Work Phone: [facility] HospitalTchcnhuppo59-60-9039 11:23-0400Diastolic blood kveezwab24 mm[Hg]Rodrick Butler MD Work Phone: [facility] HospitalUlnpzubont33-15-6110 11:23-0400Heart rate65 /min Rodrick Butler MD Work Phone: [facility] HospitalDuvcaxfylg50-50-8805 11:23-6651XyV3% (BldA) [Mass fraction]100 %Rodrick Butler MD Work Phone: [facility] HospitalDgbzvdygua57-03-6961 11:23-0400Systolic blood fylzoubv491 mm[Hg]Rodrick Butler MD Work Phone: [facility] HospitalQldrwavxmj18-75-6684 14:27-0400Body .2 cmBeverly Paredes PA Work Phone: [facility] HospitalCtdyhhcstb26-11-5268 14:27-0400Body mass index (BMI) [Ratio]23.59 kg/u4Vllsi Hemmer PA Work Phone: [facility] HospitalWiqsddbjko09-42-4458 14:27-0400Body vewkhj24.31 kgHowarden Hemmer PA Work Phone: [facility] HospitalCrpjjayzqx28-54-0227 14:27-0400Diastolic blood yhhkmiyv82 mm[Hg]Beverly Hemmer PA Work Phone: [facility] HospitalElhlagllxt50-84-2153 14:27-0400Heart rate71 /min Beverly Hemmer PA Work Phone: [facility] HospitalRgpynsseht29-84-2370 14:27-0400Respiratory rate16 /minHowarden Hemmer PA Work Phone: [facility] HospitalEnbmckyxkr32-85-9985 14:27-1062QvK5% (BldA) [Mass fraction]99 %Beverly Hemmer PA Work Phone: [facility] HospitalXkvtzqilju18-75-0860 14:27-0400Systolic blood mm[Hg]Beverly Hemmer PA Work Phone: [facility] HospitalUuizfqbsqv69-17-7777 12:00-0500Body euhghh608.56 cmDemadison Chogger Other [employer] Other 01-23-2023 12:00-0500Body mass index (BMI) [Ratio] 24.59 kg/f7Ksfxcii Chogger Other [employer] Other 01-23-2023 12:00-0500Body idwdbg56 kgDemadison Soler Other [facility] [employer] Other 01-23-2023 12:00-0500Diastolic blood mm[Hg] Heather Soler Other [employer] Other 01-23-2023 12:00-0500Respiratory rate18 /minDebamrianela Soler Other [facility] [employer] Other 01-23-2023 12:00-5015HiQ9% (BldA) [Mass fraction]100 % Heather Soler Other [facility] [employer] Other 01-23-2023 12:00-0500Systolic blood mm[Hg] Heather Soler Other [place] [employer] Other 09-11-2022 11:34-0400Body bkmerpczezk68.3 [degF]II Rodrick Butler Work Phone: [facility]09-11-2022 11:34-0400 Diastolic blood qmagobak03 mm[Hg]II Rodrick Butler Work Phone: [facility]09-11-2022 11:34-0400 Heart rate78 /RadhaI Rodrick Butler Work Phone: [facility]09-11-2022 11:34-0400 Respiratory rate20 /RadhaI Rodrick Butler Work Phone: [facility]09-11-2022 11:34-0400 SaO2% (BldA) [Mass fraction]95 %II Rodrick Butler Work Phone: [facility]09-11-2022 11:34-0400 Systolic blood enihgypu138 mm[Hg]II Rodrick Butler Work Phone: [facility]09-11-2022 06:00-0400 Body cqdrxo44 kgII Rodrick Luke Work Phone: [facility]09-09-2022 09:40-0400 Body vfuqkj104.18 cmII Rodrick Butler Work Phone: [facility] Encounters Encounter DateEncounter TypeCare ProviderFacilityStart: 07-03-2025 End: 44-38-8957Berdby Eleuterio Butler MD Work Phone: NOHB [facility] MedinceStart: 07-03-2025 End: 10-77-0856Vdjpib Eleuterio Butler MD Work Phone: NOQM [facility] MedinceStart: 07-03-2025 End: 21-48-5801Ejfwph outpatient visit 25 minutesRodrick Butler MD Work Phone: NORH [facility] MedinceComment on above:Upper respiratory tract infection, unspecified type (Primary Dx)Start: 06-22-2025 End: 38-98-1762Alkohp Eleuterio Butler MD Work Phone: NOXZ [facility] MedinceStart: 06-22-2025 End: 53-88-8057Uledce Eleuterio Butler MD Work Phone: NOIY [facility] MedinceStart: 06-22-2025 End: 48-31-4543Upilak outpatient visit 25 minutesRodrick Butler MD Work Phone: NOMS [facility] Family MedinceComment on above:Acute non- recurrent sinusitis, unspecified location (Primary Dx); Atherosclerosis of ekuk coronary artery of ekuk heart without angina pectoris; Mixed hyperlipidemia; Benign essential hypertensionStart: 06-22-2025 End: 34-25-5630ukzkuxmabjKNNHZK B BERRYNot AvailableStart: 06-14-2025 End: 15-41-3341Wvohwk Eleuterio Butler MD Work Phone: NOBV [facility] MedinceStart: 06-14-2025 End: 04-81-4545Puigux flowsMiguelito Butler MD Work Phone: NOMS [facility] MedinceStart: 06-14-2025 End: 42-01-0891Nupzko outpatient visit 25 minutesRodrick Butler MD Work Phone: N[facility] MedinceComment on above:Acute non- recurrent sinusitis, unspecified location (Primary Dx)Start: 06-14-2025 End: 12-00-1646ibkiraaqgbIJQBYE B BERRYNot AvailableStart: 06-06-2025 End: 13-06-0297jjtcuboctkQond M [facility]Ch[facility] Work Phone: Start: 06-06-2025 End: 98-65-5968Uoleaayv ReferredJohn Garcia DO-LAB [facility] Start: 06-06-2025 End: 14-21-8290Mjiabvpql Result EncounterGeneric External Data ProviderNOMS External Department UnsolicitedStart: 06-06-2025 End: 17-44-3596Rtplkvkbd Result EncounterGeneric External Data ProviderNOMS External Department UnsolicitedStart: 26-64-3189hysincoryxGIHAThe Jewish Hospitaltart: 05-19-2025 End: 75-64-9760Oiqjjc Eleuterio Butler MD Work Phone: NOM[facility] MedinceStart: 05-19-2025 End: 74-02-9361Axtxsm flowsMiguelito Butler MD Work Phone: NOMT [facility] MedinceStart: 05-19-2025 End: 50-35-3221Jjodu of hemosiderin, quantRodrick Butler MD Work Phone: [facility] Work Phone: Start: 05-19-2025 End: 20-18-8106Wgdxanmm preventive med est patient 65yrs& olderRodrick Butler MD Work Phone: N[facility] MedinceComment on above:Routine general medical examination at health care facility (Primary Dx); ACP (advance care planning); Flu vaccine need; Type 2 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 gangrene, 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 (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); Atrioventricular block, complete (HCC); Diabetic peripheral neuropathy (HCC); Restless legs syndrome; Atherosclerosis of ekuk coronary artery of ekuk heart without angina pectoris ; Chronic systolic heart failure (HCC); S/P placement of cardiac pacemaker; Renal artery stenosis; Gastroesophageal reflux disease without esophagitis; Pure hypertriglyceridemia ; CALI-inhibitor coughStart: 05-19-2025 End: 85-63-7540fyoqweulolYENGRI B BERRYNot AvailableStart: 03-17-2025 End: 19-17-6230UehoeiHsaix M Hemmer PA Work Phone: [facility] CI FMComment on above:Bilateral leg edemaStart: 36-65-3185figghukdtiGBSCLHolzer Health Systemtart: 03-16-2025 End: 91-57-9118Hcrqghkm Result EncounterBeverly ZAMUDIO Work Phone: [facility] External Department UnsolicitedStart: 03-16-2025 End: 81-20-0706Ttdalyrk Result EncounterBeverly ZAMUDIO Work Phone: [facility] External Department UnsolicitedStart: 03-16-2025 End: 37-37-4217Mazazw outpatient visit 25 minutesBeverly ZAMUDIO Work Phone: [facility] CI FMComment on above:Acute bilateral low back pain without sciatica (Primary Dx); Intermittent diarrhea; Acute cystitis with hematuriaStart: 03-16-2025 End: 52-66-8597zaubtswnhmSDLFR M HEMMERNot AvailableStart: 01-31-2025 End: 22-34-9511Lxaezxhrm Result EncounterGeneric External Data ProviderNOMS External Department UnsolicitedStart: 01-31-2025 End: 32-17-2993Adevhuknu Result EncounterGeneric External Data ProviderNOMS External Department UnsolicitedStart: 01-16-2025 End: 18-49-2311Biqqehharman Butler MD Work Phone: [facility] CI FMStart: 01-16-2025 End: 74-36-2744Lrbekhharman Butler MD Work Phone: [facility] CI FMStart: 01-16-2025 End: 36-65-1838Ngazod outpatient visit 25 minutesRodrick Butler MD Work Phone: [facility] CI FMComment on above:Type 2 diabetes mellitus with other specified complication, with long-term current use of insulin (P rimary Dx); Benign essential hypertension (CMS/HCC); Chronic systolic heart failure (CMS/HCC); Renal artery stenosis (CMS/HCC); Diabetic nephropathy associated with type 2 diabetes mellitus (HCC) (CMS/HCC) Start: 01-16-2025 End: 28-20-0738udskkqozmlJBUPYB B BERRYNot AvailableStart: 12-30-2024 End: 39-71-7389ktndvdulrbCJXMIMercy Health Fairfield Hospitaltart: 12-13-2024 End: 50-03-5263Wttowhidn Result EncounterGeneric External Data ProviderNOMS External Department UnsolicitedStart: 12-13-2024 End: 54-17-9684Rgbqlcobq Result EncounterGeneric External Data ProviderNOMS External Department UnsolicitedStart: 11-14-2024 End: 54-27-7096Gsumokharman Butler MD Work Phone: [facility] CI FMStart: 11-14-2024 End: 14-94-2297Qkfvfbharman Butler MD Work Phone: [facility] CI FMStart: 11-14-2024 End: 39-04-4585Aadehd outpatient visit 25 minutesRodrick Butler MD Work Phone: [facility] CI FMComment on above:Chronic systolic heart failure (CMS/HCC) (Primary Dx); Type 2 diabetes mellitus with other specified complication, with long-term current use of insulin (CMS/HCC)Start: 11-14-2024 End: 32-34-7216ohgkqkkkjuQTCNFC B BERRYNot AvailableStart: 11-02-2024 End: 12-67-2987Uclwkrwtn Result EncounterGeneric External Data ProviderNOMS External Department UnsolicitedStart: 11-02-2024 End: 38-82-4790Tmwqznwrx Result EncounterGeneric External Data ProviderNOMS External Department UnsolicitedStart: 10-17-2024 End: 58-51-6794Tqzcon Eleuterio Butler MD Work Phone: [facility] CI FMStart: 10-17-2024 End: 02-22-0828Kdkmuf flowsMiguelito Butler MD Work Phone: [facility] CI FMStart: 10-17-2024 End: 03-62-6737Fdjawa outpatient new 45 minutesDadixie Butler MD Work Phone: [facility] CI FMComment on above:Benign essential hypertension (CMS/HCC) (Primary Dx); Chronic systolic heart failure (CMS/HCC); Type 2 diabetes mellitus with stage 3b chronic kidney disease, with long-term current use of insulin (HCC) (CMS/HCC)Start: 10-17-2024 End: 93-60-7167tebjpfpskgWNVKBZ B BERRYNot AvailableStart: 10-13-2024 End: 99-67-9537Diwsyw outpatient visit 25 minutesMushtaq Vick NP Work Phone: [facility] CI FMComment on above:Type 2 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 gangrene, with long-term current use of insulin (CMS/HCC); Gastroesophageal reflux disease without esophagitis; Diabetic peripheral neuropathy (CMS/HCC); Type 2 diabetes mellitus with diabetic chronic kidney disease (CMS/HCC); Chronic kidney disease, stage 3a (HCC) (CMS/HCC)Start: 10-13-2024 End: 89-28-9756ocsxbdorchTKVGerardo Gould AvailableStart: 10-10-2024 End: 22-27-3203Xbaxkzekd Result EncounterGeneric External Data ProviderNOMS External Department UnsolicitedStart: 10-10-2024 End: 46-91-0375Apzkgetle Result EncounterGeneric External Data ProviderNOMS External Department UnsolicitedStart: 10-04-2024 End: 45-97-6239lgpuybnfwvSADXVMercy Health Fairfield Hospitaltart: 09-20-2024 End: 61-87-7495Zeidgs Sunita ZAMUDIO Work Phone: [facility] CI FMStart: 09-20-2024 End: 70-58-3520Ffwecr Sunita Paredes PA Work Phone: [facility] CI FMStart: 09-20-2024 End: 10-95-3645Wrgtxz outpatient visit 25 minutesBeverly ZAMUDIO Work Phone: [facility] CI FMComment on above:Uncontrolled hypertension (CMS/HCC) (Primary Dx); Mass of left adrenal gland (CMS/HCC); Gastroesophageal reflux disease without esophagitis; Diabetic peripheral neuropathy (CMS/HCC); Type 2 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 gangrene, with long-term current use of insulin (CMS/HCC); Chronic systolic heart failure (CMS/HCC); Primary insomnia; Bilateral leg edema; Renal artery stenosis (CMS/HCC)Start: 09-20-2024 End: 03-89-3327mvafxcpigzAFXKJKristie Johnson AvailableStart: 09-05-2024 End: 44-40-4067Qffwaeharman Butler MD Work Phone: [facility] CI FMStart: 09-05-2024 End: 15-67-3187Iwxyuh Eleuterio Butler MD Work Phone: [facility] CI FMStart: 09-05-2024 End: 42-28-5993Mwjooa outpatient visit 25 minutesRodrick Butler MD Work Phone: [facility] CI FMComment on above:Type 2 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 gangrene, unspecified whether assisted insulin use (CMS/HCC) (Primary Dx); Benign essential hypertension (CMS/HCC); Primary insomniaStart: 09-05-2024 End: 69-02-7343mwbbswjqbvUTWFGL B BERRYNot AvailableStart: 08-29-2024 End: 71-52-0134Hhrfkhays Result EncounterGeneric External Data ProviderNOMS External Department UnsolicitedStart: 08-29-2024 End: 01-36-2611Kzgsduffn Result EncounterGeneric External Data ProviderNOMS External Department UnsolicitedStart: 08-12-2024 End: 58-59-2670Lixqfymqy encounterRodrick Butler MD Work Phone: [facility] CI FMStart: 08-08-2024 End: 44-18-6131olevcbprqoIDPNJWhite Hospitaltart: 07-26-2024 End: 68-23-3013mbfmbsjmfmXEZKUniversity Hospitals Geneva Medical Centertart: 07-13-2024 End: 11-17-5164miyzuovmanWGMMThe Jewish Hospitaltart: 07-04-2024 End: 93-39-4960Rshbpp outpatient visit 25 minutesRodrick Butler MD Work Phone: [facility] CI FMComment on above:Benign essential hypertension (CMS/HCC) (Primary Dx); Type 2 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 gangrene, with long-term current use of insulin (CMS/HCC)Start: 07-04-2024 End: 58-58-5930ogfylhbpxaIQXVOX B BERRYNot AvailableStart: 06-15-2024 End: 15-96-7255ynnxvrtbvxRXYHThe Jewish Hospitaltart: 06-08-2024 End: 53-80-5221Kafaxy flowsAyden ZAMUDIO Work Phone: [facility] CI FMStart: 06-08-2024 End: 84-62-8531Zymmoo Sunita ZAMUDIO Work Phone: [facility] CI FMStart: 06-08-2024 End: 51-99-9459Rzjbks outpatient visit 15 minutesBeverly ZAMUDIO Work Phone: [facility] CI FMComment on above:Benign essential hypertension (CMS/HCC) (Primary Dx); Encounter for immunizationStart: 06-07-2024 End: 45-40-8532Cdiorroao encounterBeverly ZAMUDIO Work Phone: [facility] CI FMStart: 06-02-2024 End: 15-06-5061trsgrnnbqcIDDIBGIACMC Healthcare System Glenbeightart: 06-01-2024 End: 35-11-2351Yvwfpttmfury care manage srvc 14 day dischargeDrichard Butler MD Work Phone: [facility] CI FMComment on above:TIA (transient ischemic attack) (Primary Dx); Type 2 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 gangrene, with long-term current use of insulin (CMS/HCC); Benign essential hypertension (CMS/HCC)Start: 05-30-2024 End: 75-13-2159Izzvwfzzt encounterRach CastilloMedica Physicians [facility] Start: 05-05-2024 End: 31-56-8067Xmkmoep encounter Leandra Louise NP Work Phone: [facility] CI FMComment on above:Acute cystitis with hematuriaStart: 04-26-2024 End: 54-54-2977Ucrafbexk encounterMore Barcenas LPN Work Phone: [facility] CI FMStart: 04-19-2024 End: 97-40-4838Gcuepe outpatient visit 25 minutesBeverly ZAMUDIO Work Phone: [facility] CI FMComment on above:Acute cystitis with hematuria (Primary Dx); Dysuria; Diabetic peripheral neuropathy (CMS/HCC); Type 2 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 gangrene, with long-term current use of insulin (CMS/HCC)Start: 11-24-2022 End: 88-78-5518nmsfuddjxjAQ DANIEL BERRYFacility:R4Rllwe: 09-29-2022 End: 91-47-4297yrnrkyauniPJ DANIEL BERRYFacility:R9Muykm: 09-22-2022(New DM) New DiabetesHeather Meloakutanken Coordinated Care ClinicStart: 09-22-2022 End: 10-89-4746vevzxfkhwpRefmcgh Scally Other [facility] [employer] Other Start: 08-28-2022 End: 84-64-0123wjxdbqvaysYK DANIEL BERRYFacility:O4Ecxjt: 08-18-2022 End: 70-63-1580rcxxvwxtakIQ DANIEL BERRYFacility:Z5Uifmj: 06-11-2022 End: 47-23-4069bfxfojrmgnFI RODRICK BUTLERFacility:Q6Zhlsh: 06-06-2022 End: 95-83-1282wvydopseaqWSJZSTS PATELFacility:U8Njxzc: 08-04-3418wxdlknhdeh Itz TRINIDADuinn IIFacility:9090Start: 76-55-1786vpsaahotgeAhiuvqb MCGuinn II Facility:9090Start: 69-27-7071tnhksnicgeZowlapv TRINIDADuinn IIFacility:9090Start: 05-09-2022 End: 56-70-4098Wgvoicjlnp and management of inpatientII Rodrick Butler Work Phone: [facility] [place] [facility] Start: 05-09-2022 End: 69-79-1804dmycawyltrIfgirfv MCGuinn IIFacility:9090Start: 05-02-2022 Encounter for other preprocedural examinationMELOur Lady of Mercy [facility] Start: 79-72-3604Lyzbunpfr for preprocedural laboratory examinationUniversity Hospitals St. John Medical Centertart: 05-01-2022 End: 84-95-7598ixlksghgcoDO DANIEL BERRYFacility:I8Tcrwe: 05-01-2022 End: 78-99-0981Dctqgpmqq for other preprocedural examination RODRICK BUTLER Facility:K2Ixcpg: 04-21-2022 End: 79-02-7356fhwfomacycTIIHVF BERRYFacility:UTMCStart: 04-18-2022 End: 33-93-2086lwvtmiaxgzVMNLZAZ BOESFacility:R6Vyvqo: 03-12-2022 End: 47-99-1034fjinuxpqxvASCCWWL BOESFacility:T0Stjcj: 03-07-2022 End: 87-78-0308qskjbussoeNWJUNL BERRYFacility:UTMCStart: 03-01-2022 End: 28-55-1923zmuzfswrlbCVPMYUN BOESFacility:L0Lfezj: 02-11-2022 End: 79-09-6339tqerqonpfzRS DANIEL BERRYFacility:H1 Procedures DateProcedureProcedure DetailPerforming ClinicianStart: 30-07-9340XTEDW CULTURE - FRGeneric External Data ProviderStart: 91-46-3536Pxipzlunja glycosylated a1c Rodrick Butler MD Work Phone: Start: 17-03-8551Yfsxq dip stick/tablet rgnt non-auto w/o micrscpBeverly Paredes PA Work Phone: Start: 58-52-7427UHJSXTZ TRACT INFECTION (HTRX)Beverly Paredes PA Work Phone: Start: 28-09-4481BQS BASIC METABOLIC PANELGeneric External Data ProviderStart: 30-13-7237QCB LIPID PROFILE (FASTING)Generic External Data ProviderStart: 91-51-3859VME ALTGeneric External Data Provider Start: 15-24-0699PBK ASTGeneric External Data ProviderStart: 01-16-2025 Hemoglobin glycosylated m6aShcgnydixie Butler MD Work Phone: Start: 56-19-3987UEU BASIC METABOLIC PANELGeneric External Data ProviderStart: 57-60-7065Wirgvjsvvd glycosylated u9pFlzditdixie Butler MD Work Phone: Start: 94-41-4269TLL BASIC METABOLIC PANELGeneric External Data ProviderStart: 83-16-3978AVM BASIC METABOLIC PANELGeneric External Data ProviderStart: 24-36-7166Vceuzrpfma glycosylated t1aBhvoeodixie Butler MD Work Phone: Start: 28-92-4944SPM LIPID PROFILE (FASTING)Generic External Data ProviderStart: 28-17-7894XZE ALTGeneric External Data Provider Start: 22-21-2085ENZ ASTGeneric External Data ProviderStart: 06-01-2024 Hemoglobin glycosylated v2nWnaubnpoli Butler MD Work Phone: Start: 25-38-2269Hnyyy dip stick/tablet rgnt non-auto w/o Jose Louise NP Work Phone: Start: 11-42-2386Qfqmo dip stick/tablet rgnt non-auto w/o Javy ZAMUDIO Work Phone: Plan of Treatment DateCare ActivityDetailAuthorStart: 48-77-4988Oohojsfbgy A1c measurement Diabetes: Hemoglobin D6MSPGP HealthcareStart: 07-10-2025 End: 59-70-5840Oxoqydm encounter yhwqbmnws61/10/2025 4:15 PM EST Office Visit [facility] [address] [facility] [address] [place] [address] Rodrick Butler MD [address] [facility] [address] [place] [address] [facility] [place] [facility] CenternceStart: 07-03-2025 End: 34-72-8688Dqzagxlbhxtas metabolic 2000 panel - Serum or PlasmaComprehensive metabolic panel Lab Routine Upper respiratory tract infection, unspecified type Expected: 07/03/2025 (Approximate), Expires: 07/03/2026NOVA HealthcareComment on above:Expected: 07/03/2025 (Approximate), Expires: 07/03/2026Start: 07-03-2025 End: 76-72-7100JYYFF-19 PCR ([place])COVID-19 PCR ([place]) Lab Routine Upper respiratory tract infection, unspecified type Expected: 07/03/2025 (Approximate), Expires: 07/03/2026NOVA HealthcareComment on above:Expected: 07/03/2025 (Approximate), Expires: 07/03/2026Start: 07-03-2025 End: 18-08-6538Gnkunoi encounter procedureNOMS [place] Self MedinceComment on above:ArrivedStart: 07-03-2025 End: 05-21-8883BLU W/REFLEX TO FT4TSH W/REFLEX TO FT4 Lab Routine Upper respiratory tract infection, unspecified type Expected: 07/03/2025 (Approximate), Expires: 07/03/2026[facility] Work Phone: Comment on above:Expected: 07/03/2025 (Approximate), Expires: 07/03/2026Start: 06-22-2025 End: 87-81-4019Mvlztzj encounter uocbsphpf33/23/2025 11:30 AM EDT Office Visit [facility] [place] [address] [place] [address] Rodrick Butler MD [address] [place] [address] ArrivedNOMS [place] Self MedinceComment on above:ArrivedStart: 06-14-2025 End: 86-88-7211Kbvldde encounter procedureNOMS [place] Self MedinceComment on above:ArrivedStart: 06-07-2025 End: 67-86-2827Zswbxpo encounter bbdjggsho04/08/2025 1:00 PM EDT Office Visit [facility] [place] [address] [place] [address] Beverly Paredes PA [address] [place] [address] NOMKen Self [facility] CenternceStart: 06-06-2025 Urine cultureRiverside Methodist Hospitaltart: 41-36-1387Rpahewny identified in Urine by CultureUrine [facility] Start: 05-19-2025 End: 13-98-0214Hwfzggd encounter procedureNOMS CI FMComment on above:Arrived Start: 87-39-1927ZNVGS-19 Vaccine ( season)COVID-19 Vaccine ( season)NOMS HealthcareStart: 23-28-0101Wyzycxlhg vaccinationInfluenza Vaccine (#1)NOMS HealthcareStart: 70-22-4695Scwtyjxiqv A1c measurementDiabetes: Hemoglobin I1TFTXW HealthcareStart: 70-11-3961Nejevoxn screeningDiabetes: Retinopathy ScreeningNOMS HealthcareStart: 03-16-2025 End: 28-46-6761FAXMUAC TRACT INFECTION (HTRX)URINARY TRACT INFECTION (HTRX) Lab Routine Acute cystitis with hematuria Expected: 03/16/2025 (Approximate), Expires: 03/16/2026[facility] Work Phone: Comment on above:Expected: 03/16/2025 (Approximate), Expires: 03/16/2026Start: 64-55-7518Jkqpwcovkd A1c measurementDiabetes: Hemoglobin Z0FYAJN HealthcareStart: 01-16-2025 End: 36-85-7427Ssrsdwd encounter procedureNOMS CI FMComment on above:Arrived Start: 00-19-0752Nnqmgjymqj A1c measurementDiabetes: Hemoglobin H7PCKOC HealthcareStart: 73-45-1518Laabf screening for proteinDiabetes: Urine Protein ScreeningOGDEN REGIONAL MEDICAL [facility] HealthcareStart: 11-14-2024 End: 12-62-7887Selyadi encounter procedureNOMS CI FMComment on above:Arrived Start: 10-17-2024 End: 78-99-4124Rxeiynd encounter procedureNOVA CI FMComment on above:Arrived Start: 09-20-2024 End: 85-80-3823Ozsil metabolic 1998 panel - Serum or PlasmaBasic metabolic panel Lab Routine Uncontrolled hypertension (CMS/HCC) Type 2 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 gangrene, with long-term current use of insulin (CMS/HCC) Chronic systolic heart failure (CMS/HCC) Bilateral leg edema Expected: 09/20/2024 (Approximate), Expires: 09/20/2025[facility] Healthcare Work Phone: Comment on above:Expected: 09/20/2024 (Approximate), Expires: 09/20/2025Start: 09-20-2024 End: 26-97-3167Vfbiaxszfuk peptide B [Mass/volume] in BloodB-type natriuretic peptide Lab Routine Chronic systolic heart failure (CMS/HCC) Bilateral leg edema Expected: 09/20/2024 (Approximate), Expires: 09/20/2025[facility] HealthcareComment on above:Expected: 09/20/2024 (Approximate), Expires: 09/20/2025Start: 09-20-2024 End: 09-11-0256Rqkrxyb encounter kcppcozml64/21/2025 11:00 AM EST Office Visit [facility] CI FM [address] [place] [address] eBverly Paredes PA [address] [place] [address] ArrivedNOMS CI FMComment on above:ArrivedStart: 09-05-2024 End: 21-18-8692Qaxyoze encounter procedureNOMS CI FMComment on above:Arrived Start: 47-62-3076Eeqkqnrvsp A1c measurementDiabetes: Hemoglobin A2BROEX HealthcareStart: 07-04-2024 End: 29-81-4236Embvduy encounter ywwhhdrei65/04/2024 11:45 AM EST Office Visit [facility] CI FM [address] [place] [address] Rodrick Butler MD [address] [place] [address] NOMS CI FMStart: 06-08-2024 End: 02-42-3607Vacqidh encounter mjuxhvxxl74/09/2024 11:30 AM EDT Office Visit [facility] CI [facility] [address] [place] [address] Beverly Paredes PA [address] [place] [address] ArrivedNOMS CI FMComment on above:ArrivedStart: 06-01-2024 End: 62-48-9252Tatbokb encounter beybuvkod06/02/2024 1:00 PM EDT Office Visit [facility] CI FM [address] [place] [address] Rodrick Butler MD [address] [place] [address] NOMS CI FMStart: 31-98-2890Utyrvjfbxd A1c measurementDiabetes: Hemoglobin E0WRNCM HealthcareStart: 01-25-6846DMYZB-19 Vaccine ()COVID-19 Vaccine ()[facility] SystemStart: 64-60-9850Asrcldntr vaccinationOGDEN REGIONAL MEDICAL CENTER HealthcareStart: 04-19-2024 End: 57-59-5136HFWAXSA TRACT INFECTION (HTRX)URINARY TRACT INFECTION (HTRX) Lab Routine Acute cystitis with hematuria Expected: 04/19/2024 (Approximate), Expires: 04/19/2025[facility] Work Phone: Comment on above:Expected: 04/19/2024 (Approximate), Expires: 04/19/2025Start: 09-90-7865Fxlgv screening for proteinDiabetes: Urine Protein ScreeningOGDEN REGIONAL MEDICAL [facility]ENTER HealthcareStart: 93-32-8289DoqzhhuaeGalion Hospital Ctr Work Phone: Start: 97-79-6213Hldznvyb admissionGalion Hospital Ctr Work Phone: Start: 19-31-3713Zdmdnlqu to cardiologistGalion Hospital Ctr Work Phone: Start: 36-77-5246Mmfk Risk ScreeningFall Risk ScreeningProAultman Orrville Hospital SystemStart: 67-15-1441Zclsmksgqgwnro of varicella zoster vaccineZoster (Shingles) Vaccine (1 of 2)[facility] SystemStart: 28-02-0834SIoB,Tdap and Td Vaccines (1 - Tdap)DTaP,Tdap and Td Vaccines (1 - Tdap)[facility] SystemStart: 94-73-1819Pqpkn BMI ScreeningAdult BMI ScreeningProAultman Orrville Hospital SystemStart: 85-84-7129Jeieouzfog ScreeningDepression ScreeningProAultman Orrville Hospital SystemStart: 98-73-5880Rvcxtxd ScreeningTobacco ScreeningProAultman Orrville Hospital SystemStart: 96-79-5339BUoO/Tdap/Td Vaccines (1 - Tdap)DTaP/Tdap/Td Vaccines (1 - Tdap)[facility] HealthcareStart: 1939Medicare Annual Wellness VisitMedicare Annual Wellness VisitSamaritan HospitalCBC W Auto Differential panel - BloodCBC and differential Lab Routine Upper respiratory tract infection, unspecified type Ordered: 07/03/2025[facility] Comment on above:Ordered: 07/03/2025Patient EducationAcid Reflux and GERD in Adults (DC) Irritable Bowel Syndrome (DC) Coronary Artery Disease (DC)[facility] Work Phone: Patient referralGalion Hospital Ctr Work Phone: URINARY TRACT INFECTION (HTRX)URINARY TRACT INFECTION (HTRX) Lab Routine Acute cystitis with hematuria Ordered: 05/05/2024[facility] Work Phone: Comment on above:Ordered: 05/05/2024[place]INE CULTURE - [place] Lab Routine 06/06/2025 3:[facility] Immunizations Immunization DateImmunizationNotesCare JaavzmzzBfmlenmp21-94-7624coovggxjz, high dose seasonal, preservative-Francis Butler MD Work Phone: [facility] HospitalEiwmtitkdz15-69-5979Ilajsdhjz, High-dose Seasonal, Quadrivalent, Preservative FreeHowarden Hemmer PA Work Phone: [facility] HospitalRqiifexypm43-67-0623iwmjzhksh virus vaccine, unspecified formulationHowarden Hemmer PA Work Phone: [facility] HospitalAlldrpduyp30-76-7812Hrnpuesbepli Conjugate PCV 20 Beverly Hemmer PA Work Phone: [facility] Work Phone: [phone]ykfg, High-dose Seasonal, Quadrivalent, Preservative FreeBeverly Hemmer PA Work Phone: [phone] HospitalFwjytargcg89-34-8442swedodthp virus vaccine, unspecified formulationHowarden Hemmer PA Work Phone: [facility] HospitalFwwefhvipi47-65-4415Fqyqaulfk, High-dose Seasonal, Quadrivalent, Preservative FreeHowarden Hemmer PA Work Phone: [phone] County Memorial HospitalGbjgnviuuq13-91-7367Phsmpgirq, injectable, Madin [place] Canine Kidney, preservative free, quadrivalentHowarden Hemmer PA Work Phone: [phone] [place], [place] [address]Gnefyilren20-48-8834shtwctrna, injectable, quadrivalent, preservative freeHowarden Hemmer PA Work Phone: [facility] HospitalEurquvtvxx87-92-6212Ofihcxhj trivalent influenza vaccine, adjuvanted, preservative freeBeverly Hemmer PA Work Phone: NOMethod Ecqdwluvfr69-14-3239qqdfsjsfn, seasonal, injectableHowarden Hemmer PA Work Phone: [facility] Payers DatePayer CategoryPayerPolicy [id number]-poq [id number] 2023 Medicare (Managed Care)[id number] Medicare1.2.840.348523.1.13.693.2.7.3.433955.56789-96-4341Lvzlncz Health WmgcvfddnO1[id number] 2.840.1.666732.[id number] 2.840.1.316704.3.579.2.11324-08-8466Bkjmgcw [id number] 2.16.840.1.900520.3.57[id number] 2.16.840.1.902886.3.57[id number] 2.16.840.1.696035.3.57[id number] 2.16.840.1.178270.3.57[id number] 2.16.840.1.528841.3.57[id number] 2.16.840.1.536746.3.57[id number] 2.16.840.1.448080.3.57[id number] 2.16.840.1.200562.3.57[id number] 2.16.840.1.233293.3.579.[id number] 2.16.840.1.480749.3.579.2.26723-10-2843Ticzfzy1630475 2.16840.1.706519.3.57[id number] 2.16840.1.733797.3.57[id number] 2.16840.1.428910.3.579.[id number] 2.16.840.1.529822.3.579.2.50909-48-4208Tlsicek3898037 2.16840.1.674341.3.579.2.46448-00-2375Egrlsxj4509035 2.16840.1.869791.3.57[id number] 2.16.840.1.013884.3.579.2.[id number] 2.16.840.1.491269.3.579.2.328117-85-4028Mntigxr23073400 2.16.840.1.516720.3.579.2.250708-94-1244Aidvlzx89021324 2.16.840.1.443919.3.579.2.606006-82-9575Fxdzqxx48593909 2..840.1.982411.3.579.2.956307-57-2402Xmdvlka5951586 2..0.1.905734.3.579.2.286061-77-0341Qjhwdrj9837981 2.0.1.660427.3.579.2.520992-93-3643Iwrxzzf2465106 2.0.1.280470.3.579.2.351149-77-7093Tvljgcm5310632 2.0.1.728301.3.579.2.337978-82-6870Nskstqg3155286 2.0.1.367446.3.579.2.836864-31-9004Mzxkndq7938882 2.0.1.004924.3.579.2.288690-25-7551Vfmnkjf2263097 2.0.1.738480.3.57[id number] Health Rflgsjtim02006Pvxqddt Equitable Insurance-[id number] [id number]-[id number] [id number] 2..1.479551.3.579.2.531 Social History DateTypeDetailFacilityStart: 05-09-2022 End: 64-69-7145Zhqjsxo smoking status NHISNever smoked tobacco (finding) [facility] Hospitaltart: [facility]1981Cgc Assigned At BirthFeDayton VA Medical Centertart: 02-29-2024 End: 15-91-8304Dgl [facility] At [facility] [employer] Other Start: 36-36-3758Oztapwg use and exposureSmokeless tobacco non-userNOMS HealthcareStart: 04-19-2024 End: 77-64-6081Kmtqgdpfz beverage intakeLifetime non-drinker (finding)NOMS HealthcareStart: 02-29-2024 End: 09-98-5165Bwkowcn of Social functionNOMS HealthcareStart: 96-22-9097Pmc often do you need to have someone help you when you read instructions, pamphlets, or other written material from your doctor or pharmacy [SILS]Never NOMS HealthcareWithin the last year, have you been afraid of your partner or ex-partner?NoNOMS HealthcareDo you belong to any clubs or organizations such as lutheran groups, [employer], fraPongr or athletic groups, or school groups?YesNOMS HealthcareAre you now , , , , never or living with a partner?WidowedNOMS HealthcareHow often to you have a drink containing alcohol?NeverNOMS HealthcareDo you feel stress - tense, restless, nervous, or anxious, or unable to sleep at night because yourmind is troubled all the time - these days [OSQ]Not at allNOMS Healthcare(I/We) worried whether (my/our) food would run out before (I/we) got money to buy more.Never trueNOMS HealthcareStart: 84-43-3600Jtv assigned at birthNot on fileNOMS HealthcareDo you feel stress - tense, restless, nervous, or anxious, or unable to sleep at night because yourmind is troubled all the time - these days [OSQ]Only a littleNOMS HealthcareTobacco smoking status NHISTobacco smoking consumption unknown [facility] SystemHow often do you need to have someone help you when you read instructions, pamphlets, or other written material from your doctor or pharmacy [SILS]RarelyNOMS HealthcareSexFemale (finding)[facility] Medical Equipment Procedure CodeEquipment CodeEquipment Original TextEquipment IdentifierDates [id number], [id number], [id number]: 01-18-2013 Goals DatePatient GoalDesired Activity/State Functional Status YdkzDggkekdjdlNtowbyXhqdyuyy55-55-1395U[place] Health Questionnaire 2 item (PHQ- 2) [Reported][facility] HospitalMbuyvwszyf51-79-9339Ogjnbdz Health Questionnaire 2 item (PHQ- 2) [Reported][facility] HospitalFbpixnzgfz12-68-3129Ccedamz Health Questionnaire 2 item (PHQ- 2) [Reported][facility] HospitalKqtvqcjknv25-16-6343Cthnbcgmoc statusPatient at Baseline [facility] Work Phone: Mental Status ZjthVuixahzvxqFhaoepYayxkgqf53-06-8628Kobkkbtft functionCognitive Status [facility] Work Phone: Clinical Notes 03-31-2022 to 07-03-2025 Note Date & RwahHmixVnzbewhu45-17-1844 History of Present illness Narrative* Rodrick Butler MD - 07/03/2025 2:00 PM [...] Wt 156 lb SpO2 99% BMI 24.43 kg/m Smoking Status Never BSA 1.83 m Review of Systems Objective Physical Exam [...] - CBC and differential - COVID-19 PCR ([place]); Future - methylPREDNISolone (Medrol Dospak) 4 MG tablets; Follow schedule on package instructions Other orders - Follow Up In Family Medicine; Future Follow up with Dr. Rodrick Butler in 1 week (on 07/10/2025). documented in this encounterCooper County Memorial HospitalIxnkagfgwn31-06-4075 History of Present illness Narrative* Rodrick Butler MD - 06/22/2025 11:30 AM [...] PLACEMENT 09/07/2023 HYSTERECTOMY 1996 Visit Vitals BP 168/80 Pulse 60 Temp 97.8 F Ht 5' 7 Wt 152 lb SpO2 100% BMI 23.81 kg/m Smoking Status Never BSA [...] mouth Daily for 10 days Atherosclerosis of [place] coronary artery of [place] heart without angina pectoris Mixed hyperlipidemia Benign essential hypertension - hydrALAZINE (Apresoline) 25 MG tablet; Take 1 tablet (25 mg) by mouth in the morning and 1 tablet(25 mg) in the evening and 1 tablet (25 mg) before bedtime. Other orders - Follow Up In Family Medicine; Future Follow up with Dr. Rodrick Butler in 2 weeks (on 07/06/2025). documented in this encounterCooper County Memorial HospitalNpwdryrbiy23-51-7658 History of Present illness Narrative* Rodrick Butler MD - 06/14/2025 10:00 AM EDT Images from the original note were not included. HPI Follow-up Additional comments: [facility] ER 06/06/25 dx: diarrhea, dehydration discharged home no med changes made Last edited by Leslie Dixon LPN on 06/14/2025 9:47 AM. Subjective Patient ID: Tere Hartmann is a 85 y.o. female who presents for Diabetes, Cough, and Follow-up (TBHER 06/06/25 dx: diarrhea, dehydration discharged home no med changes made). Flowsheet Row Patient Outreach from 06/07/2025 in [facility] with Ivelisse Baptiste LPN Hospital Information ED, Hospital or Half-Way Facility Discharge? ED Patient has been contacted within 2 days of being seen in the ED Yes Diagnosis Diarrhea Discharge Date 06/06/25 Discharged To: Home Setting Discharge Hospital [facility] Engagement Call Start Time 1152 Admission Date 06/06/25 Medications Discharge medications reviewed and reconciled from hospital? Yes Is the patient having any side effects they believe may be caused by any medication additions or changes? No Does the patient have all medications ordered at discharge? Yes Is the patient taking all medications as directed (includes completed medication regime)? Yes Appointments Does the patient have a primary care provider? Yes [06/14] Does the patient have any upcoming specialty appointments? No Self Management Does patient have home health? no Patient Teaching Does the patient have access to their discharge instructions? Yes What is the patient's perception of their health status since discharge? Improving Is the patient/caregiver able to teach back the hierarchy of who to call/visit for symptoms/problems? PCP, Specialist, Home Health nurse, Urgent Care, ED, 911 Yes Wrap Up Wrap Up Additional Comments Presented to the ER for evaluation of left lower quadrant abdominal pain, diarrhea, and lightheadedness that began earlier last night. Labs, CT abdomen and pelvis, EKG Call End Time 1212 Pt states diarrhea has improved since ER visit Pt stopped cozaar as directed She thought she was also supposed to stop lipitor as well Pt states cough is the same Switched to metformin and stopped janumet as directed Diabetes Hypertension This is a chronic problem. The current episode started more than 1 year ago. The problem is unchanged. There are no associated agents to hypertension. Risk factors for coronary artery disease includediabetes mellitus. Medications Ordered Prior to Encounter[1] I have reviewed and reconciled the history and medication list with the patient today. Allergies[2] Social History[3] Family History[4] Medical History[5] Surgical History[6] Visit Vitals BP 136/76 Pulse 60 Ht 5' 7 Wt 152 lb SpO2 97% BMI 23.81 kg/m Smoking Status Never BSA [...] visit: Acute non-recurrent sinusitis, unspecified location - cefdinir (Omnicef) 300 MG capsule; Take 1 capsule (300 mg) by mouth in the morning and 1 capsule (300 mg) before bedtime. Do all this for 7 days. - guaiFENesin-dextromethorphan (Robitussin DM) 100-10 MG/5ML syrup; Take 5 mL by mouth every 4 (four) hours if needed for cough for up to 10 days Other orders - Follow Up In Family Medicine; Future Follow up with Dr. Rodrick Butler or their team in 1 week (on 06/21/2025). [1] Current Outpatient Medications on File Prior to Visit Medication Sig Dispense Refill aspirin 81 MG EC tablet Take 81 mg by mouth in the morning. Blood Glucose Monitoring Suppl (Blood Glucose Monitor [...] BEDTIME NEEDED for sleep 30 tablet 5 atorvastatin (Lipitor) 80 MG tablet Take 1 tablet (80 mg) by mouth at bedtime (Patient not taking: Reported on 06/14/2025) 100 tablet 3 [DISCONTINUED] insulin glargine (Lantus SoloStar) 100 UNIT/ML pen INJECT 30 UNITS SUBCUTANEOUSLY (UNDER THE SKIN) IN THE MORNING 15 mL 3 [DISCONTINUED] Lancets 30G misc 1 each Daily 100 each 3 No current facility-administered medications on file prior to visit. [2] Allergies Allergen Reactions Amlodipine Swelling Swelling in feet Empagliflozin Other Yeast Infections Sulfa Antibiotics Unknown and Swelling sore in mouth Clonidine Other Dry Mouth Dapagliflozin Other Iodine Sacubitril-Valsartan Other hypertension Shellfish Allergy vomitting, diarrhea Shellfish Protein-Containing Drug Products Unknown [3] Social History Tobacco Use Smoking status: Never Smokeless tobacco: Never Vaping Use Vaping status: Never Used Substance Use Topics Alcohol use: Never Drug use: Never [4] Family History Problem Relation Name Age of Onset Diabetes Mother Heart disease Mother Heart disease Father Uterine cancer Sibling Breast cancer Sibling Diabetes Sibling Heart disease Sibling Other (Other) Sibling 2 brothers & 2 sisters, . [5] Past Medical History: Diagnosis Date CAD (coronary [...] Type 2 diabetes mellitus with hyperglycemia (HCC) [6] Past Surgical History: Procedure Laterality Date ADENOIDECTOMY ANGIOGRAM 04/21/2022 PCI,RCA,PDA APPENDECTOMY 1963 CARDIAC CATHETERIZATION Right 03/07/2022 CARDIAC PACEMAKER PLACEMENT 09/07/2023 HYSTERECTOMY 1997 documented in this encounterCooper County Memorial HospitalEmfjfwpkqe28-83-8540 History of Present illness Narrative* Rodrick Butler MD - 05/19/2025 10:00 AM EDT Images from the original note were not included. Subjective : Chief Complaint: Tere Hartmann is an 85 y.o. female here for an annual wellness visit. I have reviewed and reconciled the history and medication list with the patient today. Current Outpatient Medications Medication Sig Dispense Refill aspirin 81 MG [...] 3 furosemide (Lasix) 20 MG tablet Take 1 tablet (20 mg) by mouth Daily as needed (Swelling) 90 tablet1 glucose blood (Accu-Chek Briana Plus) test strip 1 each in the morning and 1 each before bedtime. Glucose Blood (Blood Glucose Test) strip 1 each by In Vitro route Daily 100 strip 3 insulin glargine (Lantus SoloStar) 100 UNIT/ML pen INJECT 30 UNITS SUBCUTANEOUSLY (UNDER THE SKIN) IN THE MORNING 15 mL 3 Janumet XR 100-1000 MG per 24 hr tablet TAKE 1 TABLET BY MOUTH IN THE MORNING WITH A MEAL 30 qmypoh65 Lancets 30G misc 1 each Daily 100 each 3 latanoprost (Xalatan) 0.005 % ophthalmic solution Administer 1 drop into both eyes at bedtime losartan (Cozaar) 50 MG tablet TAKE 1 TABLET BY MOUTH TWICE DAILY NIGHTLY sacubitril-valsartan (Entresto) 97-103 MG tablet Take 1 tablet by mouth in the morning and 1 tabletbefore bedtime. 60 tablet 11 spironolactone (Aldactone) 50 MG tablet Take 25 mg by mouth in the morning. (Patient taking differently: Take 12.5 mg by mouth in the morning and 12.5 mg before bedtime. CARDIOLOGY CHANGED TO 1/2 TABBID.) traZODone (Desyrel) 50 MG tablet TAKE 1 TABLET BY MOUTH AT BEDTIME NEEDED for sleep 30 tablet 5 No current facility-administered medications for this visit. Review of Systems List of current healthcare providers: Patient Care Team: Rodrick Butler MD as PCP - General (Internal Medicine) Rodrick Butler MD as PCP - Rosetta Baptiste LPN Medicare Annual Visit Over the past 2 weeks, how often have you been bothered by any of the following problems? Little interest or pleasure in doing things: Not at all Feeling down, depressed, or hopeless: Not at all Patient Health Questionnaire-2 Score: 0 Delaney Fall Risk History of Falling, Immediate or Within 3 Months: No Secondary Diagnosis: No Ambulatory Aid: Walks without aid/bedrest/nurse assist Health Risk Assessment Form Do you need help eating, bathing, using the toilet, dressing, or getting around your home?: No Can you prepare your own meals?: Yes Can you do your own housework without help?: Yes Can you shop for groceries or clothes without help?: Yes Do you exercise for about 20 minutes 3 or more days a week?: No How confident are you that you can control and manage most of your health problems?: Somewhat confident Can you mange your money, credit cards and accounts, pay bills and taxes?: Yes Cognitive Screening Three Word Registration: Apple, Watch, Jazmín Clock Drawing: Normal Clock - 2 Three Word Recall: All 3 words correct - 3 Total Score (0-5 Points): 5 Pain Assessment Pain Score: 8 Advance Care Planning Do you have a living will?: No Do you have a medical power of home appliances mechanic?: Yes Who is your medical power of home appliances mechanic?: torsten lemus Objective : BP 124/66 Pulse 76 Ht 5' 7 Wt 153 lb SpO2 97% BMI 23.96 kg/m No results found. Physical Exam Constitutional: General: She is not [...] No wheezing, rhonchi or rales. Abdominal: General: Bowel sounds are normal. Palpations: Abdomen is soft. There is no hepatomegaly. Tenderness: There is no abdominal tenderness. There is no right CVA tenderness, left CVA tenderness, guarding or rebound. Negative signs include Goodman's sign. Musculoskeletal: Lumbar back: Spasms and tenderness (in area noted in drawing) present. Back: Comments: States the pain she is having is below the area of tenderness Skin: General: Skin is warm and dry. Neurological: General: No focal deficit present. Mental Status: She is alert and oriented to person, place, and time. Psychiatric: Mood and Affect: Mood normal. Behavior: Behavior normal. Office Visit on 05/19/2025 Component Date Value Ref Range Status Hemoglobin A1C 05/19/2025 5.8 Final Assessment/Plan : The following health maintenance schedule was reviewed with the patient and provided in printed form in the after visit summary: Health Maintenance Topic Date Due Diabetes: Urine Protein Screening 11/25/2023 Diabetes: Retinopathy Screening 03/25/2025 Diabetes: Hemoglobin A1C 08/18/2025 Influenza Vaccine Completed Pneumococcal Vaccine: 65+ Years Completed Advance Care Planning Assessment/Plan Diagnoses and all orders for this visit: Routine general medical examination at health care facility ACP (advance care planning) Flu vaccine need Type 2 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 gangrene, 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 Take with meals. Do not crush, chew, or split. Atrioventricular block, complete (HCC) Diabetic peripheral neuropathy (HCC) Restless legs syndrome Atherosclerosis of ek[place] coronary artery of ek[place] heart without angina pectoris Chronic systolic heart failure (HCC) S/P placement of cardiac pacemaker Renal artery stenosis Gastroesophageal reflux disease without esophagitis Pure hypertriglyceridemia CALI-inhibitor cough - Cozaar stopped. Note she is on Entresto as well, that may need to be stopped. RTC 4 weeks. Other orders - Flu vaccine, high dose seasonal, PF (YIN647) (Fluzone High Dose) Follow up in about 4 weeks (around 06/16/2025) for F/U med changes. Orders Placed This Encounter Procedures Flu vaccine, high dose seasonal, PF (FCM245) (Fluzone High Dose) POCT Glycated hemoglobin, total Electronically signed by Rodrick Butler MD on May 19, 2025 documented in this encounterCooper County Memorial [id number] Telephone encounter Note* Telephone Encounter - LIZZ Venegas - 03/18/2025 1:28 PM EDT Furosemide sent. [facility] [id number] Miscellaneous Notes* Telephone Encounter - LIZZ Venegas - 03/18/2025 1:28 PM EDT Furosemide sent. documented in this encounterCooper County Memorial [id number] History of Present illness Narrative* LIZZ Venegas - 03/16/2025 8:30 AM EDT Images from the original note were not included. Subjective Patient ID: Tere Hartmann is a 85 y.o. female who presents for stomach issues. Pt has had diarrhea 3 times this month, it is severe, goes multiple times when it occurs. She is stating her legs are very weak and her back is hurting her and thinks it is due to her bowels. Pt did not try anything for the diarrhea. She has not had diarrhea since last week. Pt states other family members were sick at one point. Not sure if she got something from them. States, I just don't feel good today. States still has somelow back discomfort, feels irritated all the time. Denies urinary symptoms. Was eating yogurt once a day, but has not had it in a least a week. Drinks about 3 bottles of water a day. No OTC treatments. No longer taking Pantoprazole, finished the prescription and no longer having stomach issues, it is more with her bowel movements. Over the past 2 weeks, how often [...] 3 furosemide (Lasix) 20 MG tablet Take 1 tablet (20 mg) by mouth Daily as needed (Swelling) 90 tablet1 glucose blood (Accu-Chek Briana Plus) test strip 1 each in the morning and 1 each before bedtime. Glucose Blood (Blood Glucose Test) strip 1 each by In Vitro route Daily 100 strip 3 insulin glargine (Lantus SoloStar) 100 UNIT/ML pen INJECT 30 UNITS SUBCUTANEOUSLY (UNDER THE SKIN) IN THE MORNING 15 mL 3 Janumet XR 100-1000 MG per 24 hr tablet TAKE 1 TABLET BY MOUTH IN THE MORNING WITH A MEAL 30 [id number] Lancets 30G misc 1 each Daily 100 each 3 latanoprost (Xalatan) 0.005 % ophthalmic solution Administer 1 drop into both eyes at bedtime losartan (Cozaar) 50 MG tablet TAKE 1 TABLET BY MOUTH TWICE DAILY NIGHTLY sacubitril-valsartan (Entresto) 97-103 MG tablet Take 1 tablet by mouth in the morning and 1 tabletbefore bedtime. 60 tablet 11 spironolactone (Aldactone) 50 MG tablet Take 25 mg by mouth in the morning. (Patient taking differently: Take 12.5 mg by mouth in the morning and 12.5 mg before bedtime. CARDIOLOGY CHANGED TO 1/2 TABBID.) traZODone (Desyrel) 50 MG tablet TAKE 1 TABLET BY MOUTH AT BEDTIME NEEDED for sleep 30 tablet 5 [DISCONTINUED] pantoprazole (ProtoNix) 40 MG EC tablet TAKE 1 TABLET BY MOUTH IN THE MORNING BEFOREMEALS. DO NOT CRUSH, CHEW, OR SPLIT 30 tablet 2 No current facility-administered medications on file [...] PLACEMENT 09/07/2023 HYSTERECTOMY 1997 Visit Vitals BP 132/64 Pulse 60 Ht 5' 7 Wt 152 lb SpO2 98% BMI 23.81 kg/m Smoking Status Never BSA 1.8 m Review of Systems Constitutional: Negative for chills, fatigue and fever. Respiratory: Negative for cough, shortness of breath and wheezing. Cardiovascular: Negative for chest pain, palpitations and leg swelling. Gastrointestinal: Positive for diarrhea. Negative for abdominal pain, constipation, nausea and vomiting. Genitourinary: Negative for dysuria, frequency and urgency. Musculoskeletal: Positive for back pain. Skin: Negative for rash. Objective Physical Exam [...] No wheezing, rhonchi or rales. Abdominal: General: Bowel sounds are normal. Palpations: Abdomen is soft. There is no hepatomegaly. Tenderness: There is no abdominal tenderness. There is no right CVA tenderness, left CVA tenderness, guarding or rebound. Negative signs include Goodman's sign. Musculoskeletal: Lumbar back: Spasms and tenderness (in area noted in drawing) present. Back: Comments: States the pain she is having is below the area of tenderness Skin: General: Skin is warm and dry. Neurological: General: No focal deficit present. Mental Status: She is alert and oriented to person, place, and time. Psychiatric: Mood and Affect: Mood normal. Behavior: Behavior normal. Office Visit on 03/16/2025 Component Date Value Ref Range Status Glucose, UA 03/16/2025 Negative Negative - 1999(110) ++++ mg/dL Final Bilirubin, UA 03/16/2025 Negative Negative - 4(70) +++ mg/dL Final Ketones, UA 03/16/2025 Negative Negative - 160(16) ++++ mg/dL Final Spec Grav, UA 03/16/2025 1.005 1 - 1.03 Final Blood, UA 03/16/2025 Positive Negative - 50 Ky/mcL Final trace nonhem pH, UA 03/16/2025 6.5 5 - 9 Final Protein, UA 03/16/2025 Negative Negative - 1999(20) ++++ mg/dL Final Urobilinogen, UA 03/16/2025 0.2 0.2 - 12 mg/dL Final Leukocytes, UA 03/16/2025 Moderate Negative - 500+++ Melinda/mcL Final Nitrite, UA 03/16/2025 Negative Negative - Positive Final Assessment/Plan Diagnoses and all orders for this visit: Acute bilateral low back pain without sciatica - POCT urinalysis dipstick manually resulted Due to low back pain a urinalysis was checked in the office today and was abnormal. The area of mild tenderness on exam is not where pt was having the symptoms she described. Did have some lumbar paraspinous muscles spasms, so can consider low dose muscle relaxer in the future if low back symptoms persist. Intermittent diarrhea Encouraged pt to resume probiotics daily, ie yogurt with active cultures. Stay hydrated, increase water intake to 4 bottles a day. Contact office if symptoms recur. May need stool studies if persists. Acute cystitis with hematuria - URINARY TRACT INFECTION (HTRX); Future - ciprofloxacin (Cipro) 250 MG tablet; Take 1 tablet (250 mg) by mouth in the morning and 1 tablet (250 mg) before bedtime. Do all this for 3 days. - phenazopyridine (Pyridium) 200 MG tablet; [...] the antibiotic based on the culture results. Otherwise follow up at our office if no improvement in one week. Follow up for Appointment As Scheduled. documented in this encounterCooper County Memorial [id number] History of Present illness Narrative* Rodrick Butler MD - 01/16/2025 11:00 AM EDT Images from the original note were not included. HPI Med Refill Additional comments: Coreg 12.5mg DM kwesi Last edited by Leslie Dixon LPN on 01/16/2025 10:50 AM. Subjective Patient ID: Tere Hartmann is a 84 y.o. female who presents for Diabetes and Med Refill (Coreg 12.5mg DM kwesi). Diabetes Mellitus Patient presents for follow up of diabetes. Current symptoms include: none. Patient denies foot ulcerations, hypoglycemia , paresthesia of the feet, polydipsia, polyuria, visual disturbances, and vomiting. Evaluation to date has included: fasting blood sugar, fasting lipid panel, and hemoglobin A1C. Home sugars: BGs range between 110 and 125 Diabetes Med Refill Associated symptoms include abdominal pain. Congestive Heart Failure Associated symptoms include abdominal pain. Abdominal Pain Hypertension This is a chronic problem. The current episode started more than 1 year ago. The problem is unchanged. There are no associated agents to hypertension. Risk factors for coronary artery disease includediabetes mellitus. Current Outpatient Medications on File Prior to Visit Medication Sig Dispense Refill aspirin 81 MG EC tablet Take 81 mg by mouth in the morning. atorvastatin (Lipitor) 80 MG tablet Take 1 tablet (80 mg) by mouth at bedtime 100 tablet 3 Blood Glucose Monitoring Suppl (Blood Glucose Monitor System) w/Device kit 1 each Daily 1 kit 0 carvedilol (Coreg) 6.25 MG tablet Take 1 tablet (6.25 mg) by mouth in the morning and 1 tablet (6.25 mg) in the evening. Take with meals. TAKE WITH THE 12.5MG COREG. 200 tablet 3 cyproheptadine (Periactin) 4 MG tablet TAKE 1/2 TABLET AT BEDTIME 45 tablet 3 furosemide (Lasix) 20 MG tablet Take 1 tablet (20 mg) by mouth Daily as needed (Swelling) 90 tablet1 glucose blood (Accu-Chek Briana Plus) test strip 1 each in the morning and 1 each before bedtime. Glucose Blood (Blood Glucose Test) strip 1 each by In Vitro route Daily 100 strip 3 insulin glargine (Lantus SoloStar) 100 UNIT/ML pen INJECT 30 UNITS SUBCUTANEOUSLY (UNDER THE SKIN) IN THE MORNING 15 mL 3 Janumet XR 100-1000 MG per 24 hr tablet TAKE 1 TABLET BY MOUTH IN THE MORNING WITH A MEAL 30 [id number] Lancets 30G misc 1 each Daily 100 each 3 latanoprost (Xalatan) 0.005 % ophthalmic solution Administer 1 drop into both eyes at bedtime pantoprazole (ProtoNix) 40 MG EC tablet Take 1 tablet (40 mg) by mouth in the morning. Take before meals. Do not crush, chew, or split.. 30 tablet 2 sacubitril-valsartan (Entresto) 97-103 MG tablet Take 1 tablet by mouth in the morning and 1 tabletbefore bedtime. 60 tablet 11 spironolactone (Aldactone) 50 MG tablet Take 25 mg by mouth in the morning. (Patient taking differently: Take 12.5 mg by mouth in the morning and 12.5 mg before bedtime. CARDIOLOGY CHANGED TO 1/2 TABBID.) traZODone (Desyrel) 50 MG tablet Take 1.5-2 tablets (75-100 mg) by mouth as needed at bedtime for sleep [DISCONTINUED] carvedilol (Coreg) 12.5 MG tablet Take 1 tablet (12.5 mg) by mouth in the morning and 1 tablet (12.5 mg) in the evening. Take with meals. 200 tablet 3 No current facility-administered medications on [...] History: Diagnosis Date CAD (coronary artery disease) (CMS/HCC) CAD (coronary artery disease) ([facility]) Elevated Troponin (05/09/2022-05/11/2022) Cervical cancer (CMS/HCC) Chest pain 06/06/2022, 08/28/2022 CHF (congestive heart failure) (CMS/HCC) Chronic systolic heart failure (CMS/HCC) Coronary atherosclerosis (CMS/[facility]) Diabetes mellitus (CMS/[facility]) History of being hospitalized 09/04/2023 Bradycardia, URI, Metabolic Acidosis, Dehydration History of being hospitalized 05/28/2024 Hypertensive Emergency, CVA, CAD HLD (hyperlipidemia) (CMS/HCC) Hypertension (CMS/HCC) Other specified disorders of adrenal gland Type 2 diabetes mellitus with hyperglycemia (CMS/HCC) Past Surgical History: Procedure Laterality Date ADENOIDECTOMY ANGIOGRAM 04/21/2022 PCI,RCA,PDA APPENDECTOMY 1963 CARDIAC CATHETERIZATION Right 03/07/2022 CARDIAC PACEMAKER PLACEMENT 09/07/2023 HYSTERECTOMY 1997 Visit Vitals BP 124/62 Pulse 62 Ht 5' 7 Wt 155 lb SpO2 97% BMI 24.28 kg/m Smoking Status Never BSA 1.82 m Review of Systems Gastrointestinal: Positive for abdominal pain. Objective Physical Exam Constitutional: General: She is [...] normal. Behavior: Behavior normal. Office Visit on 01/16/2025 Component Date Value Ref Range Status Hemoglobin A1C 01/16/2025 6.3 Final Assessment/Plan Diagnoses and all orders for this visit: Type 2 diabetes mellitus with other specified complication, with long-term current use of insulin - POCT Glycated hemoglobin, total - FSBS log shows good control, most recent A1C is at or near goal. Continue current treatment plan as previously outlined without changes. Benign essential hypertension (CMS/HCC) - carvedilol (Coreg) 12.5 MG tablet; Take 1 tablet (12.5 mg) by mouth in the morning and 1 tablet (12.5 mg) in the evening. Take with meals. Chronic systolic heart failure (CMS/HCC) - carvedilol (Coreg) 12.5 MG tablet; Take 1 tablet (12.5 mg) by mouth in the morning and 1 tablet (12.5 mg) in the evening. Take with meals. - No current active congestive heart failure. Dyspnea at exertion, but not at rest. No evidence of pulmonary edema. Medications unchanged. Renal artery stenosis (CMS/HCC) Diabetic nephropathy associated with type 2 diabetes mellitus (HCC) (CMS/HCC) Follow up in about 4 months (around 05/19/2025) for DM- A1C. documented in this encounterCooper County Memorial [id number] NoteUT Cardiology - [facility] Subjective Tere Hartmann is a 84 y.o. 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/HCC) Type 2 diabetes mellitus without complications (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/HCC) Elevated troponin Epigastric abdominal pain Essential hypertension NSTEMI (non-ST elevated myocardial infarction) ([facility]) S/P placement of cardiac pacemaker Pure hypertriglyceridemia Palpitations Bilateral leg edema Gastroesophageal reflux disease without esophagitis Renal artery stenosis HPI 01/01/2024 Patient states that she has been doing well. She denies any chest discomfort at rest or with exertion. She denies exertional dyspnea, orthopnea or paroxysmal nocturnal dyspnea. She denies dizziness, syncope or near syncope. She denies palpitations,or legs discomfort on exertion. She reports occasional mild legs edema for which she takes Lasix and potassium on as needed basis, about once a week 10/04/2024 The patient is here today for [...] Abnormal ECG Arrhythmia CHF (congestive heart failure) ([facility]) Coronary artery disease Diabetes mellitus ([facility]) Heart valve disease Hyperlipidemia Hypertension NSTEMI (non-ST elevated myocardial infarction) ([facility]) Past Surgical History: Procedure Laterality Date APPENDECTOMY [...] Swelling Amlodipine Swelling Clonidine Other Dry mouth Farxiga [Dapagliflozin] Other Empagliflozin Other Pt gets yeast infections when taking this medication Iodine Rash Medications Current Outpatient Medications: aspirin 81 mg chewable tablet, Chew 1 tablet every day by oral route for 90 days., Disp: , Rfl: atorvastatin (Lipitor) 80 mg tablet, Take 1 tablet (80 mg) by mouth at bedtime., Disp: 90 tablet, Rfl: 3 carvedilol (Cor (more content not included)...[facility]03-17-2025 History of Present illness Narrative* Rodrick Butler MD - 11/14/2024 11:00 AM EDT Images from the original note were not included. Subjective Patient ID: Tere Hartmann is a 84 y.o. female who presents for Diabetes and Congestive Heart Failure. Diabetes Mellitus Patient presents for follow up of diabetes. Current symptoms include: none. Patient denies foot ulcerations, hypoglycemia , paresthesia of the feet, polydipsia, polyuria, visual disturbances, and vomiting. Evaluation to date has included: fasting blood sugar, fasting lipid panel, and hemoglobin A1C. Home sugars: BGs range between 120 and 160 TAKING ENTRESTO SAMPLES SINCE LAST VISIT CARDIOLOGY HAS HER TAKING COREG 12.5MG AND 6.25MG Diabetes Congestive Heart Failure Associated symptoms include abdominal pain. Abdominal Pain Hypertension This is a chronic problem. The current episode started more than 1 year ago. The problem is unchanged. There are no associated agents to hypertension. Risk factors for coronary artery disease includediabetes mellitus. Med Refill Associated symptoms include abdominal pain. Current Outpatient Medications on File Prior to [...] 3 carvedilol (Coreg) 6.25 MG tablet Take 6.25 mg by mouth in the morning and 6.25 mg in the evening. Take with meals. TAKE WITH THE 12.5MG COREG. cyproheptadine (Periactin) 4 MG tablet TAKE 1/2 TABLET AT BEDTIME 45 tablet 3 furosemide (Lasix) 20 MG tablet Take 1 tablet (20 mg) by mouth Daily as needed (Swelling) 90 tablet1 glucose blood (Accu-Chek Briana Plus) test strip 1 each in the morning and 1 each before bedtime. Glucose Blood (Blood Glucose Test) strip 1 each by In Vitro route Daily 100 strip 3 insulin glargine (Lantus SoloStar) 100 UNIT/ML pen INJECT 30 UNITS SUBCUTANEOUSLY (UNDER THE SKIN) IN THE MORNING 15 mL 3 Lancets 30G misc 1 each Daily 100 each 3 latanoprost (Xalatan) 0.005 % ophthalmic solution Administer 1 drop into both eyes at bedtime pantoprazole (ProtoNix) 40 MG EC tablet Take 1 tablet (40 mg) by mouth in the morning. Take before meals. Do not crush, chew, or split.. 30 tablet 2 SITagliptin-metFORMIN ER (Janumet XR) 100-1000 MG per 24 hr tablet Take 1 tablet by mouth in the morning. Take with meals. 100 tablet 3 spironolactone (Aldactone) 50 MG tablet Take 25 mg by mouth in the morning. (Patient taking differently: Take 12.5 mg by mouth in the morning and 12.5 mg before bedtime. CARDIOLOGY CHANGED TO 09/01 TABBID.) traZODone (Desyrel) 50 MG tablet Take 1.5-2 tablets (75-100 mg) by mouth as needed at bedtime for sleep No current facility-administered medications on file prior [...] History: Diagnosis Date CAD (coronary artery disease) ([facility]) CAD (coronary artery disease) ([facility]) Elevated Troponin (05/09/2022-05/11/2022) Chest pain 06/06/2022, 08/28/2022 CHF (congestive heart failure) ([facility]) Chronic systolic heart failure ([facility]) Coronary atherosclerosis ([facility]) Diabetes mellitus ([facility]) History of being hospitalized 09/04/2023 Bradycardia, URI, Metabolic Acidosis, Dehydration History of being hospitalized 05/28/2024 Hypertensive Emergency, CVA, CAD HLD (hyperlipidemia) ([facility]) Past Surgical History: Procedure Laterality Date ADENOIDECTOMY ANGIOGRAM 04/21/2022 PCI,RCA,PDA APPENDECTOMY 1963 CARDIAC CATHETERIZATION Right 03/07/2022 CARDIAC PACEMAKER PLACEMENT 09/07/2023 HYSTERECTOMY 1997 Visit Vitals BP 136/66 Pulse 60 Ht 5' 7 Wt 153 lb SpO2 99% BMI 23.96 kg/m Smoking Status Never BSA 1.81 m Review of Systems Gastrointestinal: Positive for abdominal pain. Objective Physical Exam Constitutional: General: She is [...] normal. Behavior: Behavior normal. Office Visit on 11/14/2024 Component Date Value Ref Range Status Hemoglobin A1C 11/14/2024 8.2 Final Clinisync Result Encounter on 11/02/2024 Component Date Value Ref Range Status SODIUM 11/02/2024 131 (L) 136 - 145 mmol/L Final POTASSIUM 11/02/2024 5.4 (H) 3.5 - 5.1 mmol/L Final CHLORIDE 11/02/2024 100 98 - 107 mmol/L Final CARBON DIOXIDE 11/02/2024 25.8 21.0 - 32.0 mmol/L Final ANION GAP 11/02/2024 10.6 Final GLUCOSE 11/02/2024 226 (H) 74 - 106 mg/dL Final BLOOD UREA NITROGEN 11/02/2024 21.0 (H) 7.0 - 18.0 mg/dL Final CREATININE 11/02/2024 1.32 (H) 0.55 - 1.02 mg/dL Final [facility] EGFR-AF [place] 11/02/2024 46 (L) >=60 mL/min/1.73m 2 Final [facility] EGFR-NON AF [place] 11/02/2024 38 (L) >=60 mL/min/1.73m 2 Final BUN CREATININE RATIO 11/02/2024 15.9 Final CALCIUM 11/02/2024 9.1 8.5 - 10.1 mg/dL Final Assessment/Plan Diagnoses and all orders for this visit: Chronic systolic heart failure (CMS/HCC) - sacubitril-valsartan (Entresto) 97-103 MG tablet; Take 1 tablet by mouth in the morning and 1 tablet before bedtime. Type 2 diabetes mellitus with other specified complication, with long-term current use of insulin ([facility]) - POCT Glycated hemoglobin, total Follow up in about 2 months (around 01/14/2025) for F/U med changes, Perform Labwork. documented in this encounterCooper County Memorial [id number] History of Present illness Narrative* Rodrick Butler MD - 10/17/2024 1:00 PM EST Images from the original note were not included. Subjective Patient ID: Tere Hartmann is a 84 y.o. female who presents for a 6 week follow up. Tere is in today for a 6 week follow up on her med changes of her pantoprazole and spironlactone, states there working well and has no complaints. Current Outpatient Medications on File Prior to [...] 3 furosemide (Lasix) 20 MG tablet Take 1 tablet (20 mg) by mouth Daily as needed (Swelling) 90 tablet1 glucose blood (Accu-Chek Briana Plus) test strip 1 each in the morning and 1 each before bedtime. Glucose Blood (Blood Glucose Test) strip 1 each by In Vitro route Daily 100 strip 3 insulin glargine (Lantus SoloStar) 100 UNIT/ML pen INJECT 30 UNITS SUBCUTANEOUSLY (UNDER THE SKIN) IN THE MORNING 15 mL 3 Lancets 30G misc 1 each Daily 100 each 3 latanoprost (Xalatan) 0.005 % ophthalmic solution Administer 1 drop into both eyes at bedtime losartan (Cozaar) 50 MG tablet Take 1 tablet (50 mg) by mouth in the morning and 1 tablet (50 mg) before bedtime. 60 tablet 11 pantoprazole (ProtoNix) 40 MG EC tablet Take 1 tablet (40 mg) by mouth in the morning. Take before meals. Do not crush, chew, or split.. 30 tablet 2 SITagliptin-metFORMIN ER (Janumet XR) 100-1000 MG per 24 hr tablet Take 1 tablet by mouth in the morning. Take with meals. 100 tablet 3 spironolactone (Aldactone) 50 MG tablet Take 25 mg by mouth in the morning. traZODone (Desyrel) 50 MG tablet Take 1.5-2 tablets (75-100 mg) by mouth as needed at bedtime for sleep [DISCONTINUED] cloNIDine (Catapres) 0.1 MG tablet Take 1 tablet (0.1 mg) by mouth in the morning and 1 tablet (0.1 mg) before bedtime. [DISCONTINUED] insulin glargine (Lantus SoloStar) 100 UNIT/ML pen Inject 30 Units under the skin inthe morning. 9 mL 0 [DISCONTINUED] Lantus SoloStar 100 UNIT/ML pen INJECT 25 UNITS SUBCUTANEOUSLY (UNDER THE SKIN) IN THE MORNING 30 mL 3 [DISCONTINUED] pantoprazole (ProtoNix) 40 MG EC tablet Take 1 tablet (40 mg) by mouth in the morning. Take before meals. Do not crush, chew, or split.. 30 tablet 0 [DISCONTINUED] potassium chloride CR (KLOR-CON) 10 MEQ ER tablet Take 1 tablet (10 mEq) by mouth Daily as needed (Swelling) With Furosemide 90 tablet 3 No current facility-administered medications on [...] History: Diagnosis Date CAD (coronary artery disease) ([facility]) CAD (coronary artery disease) ([facility]) Elevated Troponin (05/09/2022-05/11/2022) Chest pain 06/06/2022, 08/28/2022 CHF (congestive heart failure) ([facility]) Chronic systolic heart failure ([facility]/HCC) Coronary atherosclerosis ([facility]) Diabetes mellitus ([facility]) History of being hospitalized 09/04/2023 Bradycardia, URI, Metabolic Acidosis, Dehydration History of being hospitalized 05/28/2024 Hypertensive Emergency, CVA, CAD HLD (hyperlipidemia) ([facility]) Past Surgical History: Procedure Laterality Date ADENOIDECTOMY ANGIOGRAM 04/21/2022 PCI,RCA,PDA APPENDECTOMY 1963 CARDIAC CATHETERIZATION Right 03/07/2022 CARDIAC PACEMAKER PLACEMENT 09/07/2023 HYSTERECTOMY 1997 Visit Vitals Smoking Status Never Review of Systems Objective Physical Exam Constitutional: [...] for this visit: Benign essential hypertension (CMS/HCC) Chronic systolic heart failure (CMS/HCC) - Stop Losartan, start Entresto, samples given. Titrate 25 to 50 (samples of both were gi Chris) Type 2 diabetes mellitus with stage 3b chronic kidney disease, with long-term current use of insulin (HCC) (CMS/HCC) - A1C on RTC. No follow-ups on file. documented in this encounterCooper County Memorial [id number] History of Present illness Narrative* Mushtaq Vick NP - 10/13/2024 2:30 PM EST Images from the original note were not included. Subjective Patient ID: Tere Hartmann is a 84 y.o. female who presents for Diabetes and Abdominal Pain. Diabetes Mellitus Patient presents for follow up of diabetes. Current symptoms include: none. Patient denies foot ulcerations, hypoglycemia , paresthesia of the feet, polydipsia, polyuria, visual disturbances, and vomiting. Evaluation to date has included: fasting blood sugar, fasting lipid panel, and hemoglobin A1C. Home sugars: BGs range between 175 and 260 Pt states this morning she noticed some abd discomfort -lower abd--worse when straining for BM Diabetes Abdominal Pain Hypertension This is a chronic problem. The current episode started more than 1 year ago. The problem is unchanged. There are no associated agents to hypertension. Risk factors for coronary artery disease includediabetes mellitus. Med Refill Associated symptoms include abdominal pain. Current Outpatient Medications on File Prior to Visit Medication Sig Dispense Refill spironolactone (Aldactone) 50 MG tablet Take 25 mg by mouth in the morning. aspirin 81 MG EC tablet Take 81 [...] mouth in the morning and 1 tablet (0.1mg) before bedtime. cyproheptadine (Periactin) 4 MG tablet TAKE 1/2 TABLET AT BEDTIME 45 tablet 3 furosemide (Lasix) 20 MG tablet Take 1 tablet (20 mg) by mouth Daily as needed (Swelling) 90 tablet1 glucose blood (Accu-Chek Briana Plus) test strip 1 each in the morning and 1 each before bedtime. Glucose Blood (Blood Glucose Test) strip 1 each by In Vitro route Daily 100 strip 3 Lancets 30G misc 1 each Daily 100 each 3 Lantus SoloStar 100 UNIT/ML pen INJECT 25 UNITS SUBCUTANEOUSLY (UNDER THE SKIN) IN THE MORNING 30 mL 3 latanoprost (Xalatan) 0.005 % ophthalmic solution Administer 1 drop into both eyes at bedtime losartan (Cozaar) 50 MG tablet Take 1 tablet (50 mg) by mouth in the morning and 1 tablet (50 mg) before bedtime. 60 tablet 11 pantoprazole (ProtoNix) 40 MG EC tablet Take 1 tablet (40 mg) by mouth in the morning. Take before meals. Do not crush, chew, or split.. 30 tablet 0 potassium chloride CR (KLOR-CON) 10 MEQ ER tablet Take 1 tablet (10 mEq) by mouth Daily as needed (Swelling) With Furosemide 90 tablet 3 SITagliptin-metFORMIN ER (Janumet XR) 100-1000 MG per 24 hr tablet Take 1 tablet by mouth in the morning. Take with meals. 100 tablet 3 traZODone (Desyrel) 50 MG tablet Take 1.5-2 tablets (75-100 mg) by mouth as needed at bedtime for sleep No current facility-administered medications on file prior [...] History: Diagnosis Date CAD (coronary artery disease) ([facility]) CAD (coronary artery disease) ([facility]) Elevated Troponin (05/09/2022-05/11/2022) Chest pain 06/06/2022, 08/28/2022 CHF (congestive heart failure) ([facility]) Chronic systolic heart failure ([facility]) Coronary atherosclerosis ([facility]) Diabetes mellitus ([facility]) History of being hospitalized 09/04/2023 Bradycardia, URI, Metabolic Acidosis, Dehydration History of being hospitalized 05/28/2024 Hypertensive Emergency, CVA, CAD HLD (hyperlipidemia) ([facility]) Past Surgical History: Procedure Laterality Date ADENOIDECTOMY ANGIOGRAM 04/21/2022 PCI,RCA,PDA APPENDECTOMY 1963 CARDIAC CATHETERIZATION Right 03/07/2022 CARDIAC PACEMAKER PLACEMENT 09/07/2023 HYSTERECTOMY 1997 Visit Vitals Ht 5' 7 BMI 23.90 kg/m Smoking Status Never BSA 1.81 m Review of Systems Constitutional: Negative. HENT: Negative. Eyes: Negative. Respiratory: Negative. Cardiovascular: Negative. Gastrointestinal: Positive for abdominal pain. Genitourinary: Negative. Musculoskeletal: Negative. Skin: Negative. Neurological: Negative. Psychiatric/Behavioral: Negative. Hematological: Negative. Endocrine: Blood sugars running high Allergic/Immunologic: Negative. Objective Physical Exam Vitals reviewed. Constitutional: Appearance: Normal appearance. HENT: Head: Normocephalic and atraumatic. Right Ear: External ear normal. Left Ear: External ear normal. Mouth/Throat: Mouth: Mucous membranes are moist. Pharynx: Oropharynx is clear. Eyes: Conjunctiva/sclera: Conjunctivae normal. Cardiovascular: Rate and Rhythm: Normal rate and regular rhythm. Heart sounds: Normal heart sounds. Pulmonary: Effort: Pulmonary effort is normal. Breath sounds: Normal breath sounds. Abdominal: General: Bowel sounds are normal. Palpations: Abdomen is soft. Tenderness: There is abdominal tenderness. Comments: Epigastric burning sensation, pain Musculoskeletal: General: Normal range of motion. Cervical back: Normal range of motion and neck supple. Skin: General: Skin is warm and dry. Neurological: General: No focal deficit present. Mental Status: She is alert and oriented to person, place, and time. Psychiatric: Mood and Affect: Mood normal. Behavior: Behavior normal. Thought Content: Thought content normal. Judgment: Judgment normal. Assessment/Plan 1. Type 2 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 gangrene, with long-term current use of insulin ([facility]) Discussed blood sugar result with the pt today. Her lantus is increased to 30 units daily. She is advised to continue monitoring her blood sugars daily. Follow up as scheduled. - insulin glargine (Lantus SoloStar) 100 UNIT/ML pen; Inject 30 Units under the skin in the morning. Dispense: 9 mL; Refill: 0 2. Gastroesophageal reflux disease without esophagitis The pt reports epigastric area pain/burning. She states she has not been taking the pantoprazole. She reports that she has a GI appointment on 10/21/24. We will restart the pantoprazole today and await GI recommendations. - pantoprazole (ProtoNix) 40 MG EC tablet; Take 1 tablet (40 mg) by mouth in the morning. Take before meals. Do not crush, chew, or split.. Dispense: 30 tablet; Refill: 2 3. Diabetic peripheral neuropathy ([facility]) 09/20/24 Glucose 65 - 99 mg/dL 326 High - insulin glargine (Lantus SoloStar) 100 UNIT/ML pen; Inject 30 Units under the skin in the morning. Dispense: 9 mL; Refill: 0 4. Type 2 diabetes mellitus with diabetic chronic kidney disease ([facility]) See previous 5. Chronic kidney disease, stage 3a (HCC) ([facility]) 09/20/24 BUN 7 - 25 mg/dL 19 Creatinine 0.60 - 0.95 mg/dL 1.15 High EGFR > OR = 60 mL/min/1.73m2 47 Low No follow-ups on file. documented in this encounterCooper County Memorial [id number] Instructions* Patient Instructions* Mushtaq Vick NP - 10/13/2024 2:30 PM EST Restarted pantoprazole Increased lantus to 30 units daily documented in this [facility]02-04-2025 NoteUT Cardiology - [facility] Subjective Tere Hartmann is a 84 y.o. year old female patient being seen for Palpitations , Hypertension (Only taking clonidine in the evenings, for SPB > 170), and Bradycardia ,S/p PPM Patient Active Problem List Diagnosis Coronary artery disease involving ekuk coronary artery of ekuk heart Chronic systolic heart failure (CMS/HCC) Mixed [...] with diabetic peripheral angiopathy without gangrene ([facility]/HCC) Type 2 diabetes mellitus without complications (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) Elevated troponin Epigastric abdominal pain HTN (hypertension) NSTEMI (non-ST elevated myocardial infarction) ([facility]) S/P placement of cardiac pacemaker Pure hypertriglyceridemia Palpitations Bilateral leg edema Gastroesophageal reflux disease without esophagitis Renal artery stenosis ([facility]) HPI 10/04/2024 The patient is here today [...] (CMS/HCC) Coronary artery disease Diabetes mellitus (CMS/HCC) Heart valve disease Hyperlipidemia Hypertension Past Surgical [...] ER multiphase 24 hr (more content not included)...[facility]01-21-2025 History of Present illness Narrative* LIZZ Venegas - 09/20/2024 11:00 AM EST Images from the original note were not included. HPI Med Refill Additional comments: Furosemide, Potassium, Lantus Last edited by More Barcenas LPN on 09/20/2024 11:08 AM. Subjective Patient ID: Tere Hartmann is a 84 y.o. female who presents for feet swelling. Tere is present today for evaluation of feet swelling. Admits bilateral feet/leg swelling, left worse than right, 1+ edema. They started swelling when she started taking the Amlodipine. She did call her sugar boiler and he told her to stop the [...] the clonidine is making her stomach feel soreand has an indentation in her upper abdomen. Pulley Maintainer mentioned she could possibly have a hiatal hernia but never did test for it. She states Cardiology believes the hiatal hernia may be pressingon her heart. 145/68 this morning. Did not take her Clonidine this morning. C/o sensation that food gets stuck at times in her lower esophagus. C/o intermittent heart burn. Nohistory of EGD. Took the Trazodone for two [...] mouth in the morning and 1 tablet (0.1mg) before bedtime. cyproheptadine (Periactin) 4 MG tablet [...] History: Diagnosis Date CAD (coronary artery disease) ([facility]/HCC) CAD (coronary artery disease) (CMS/HCC) Elevated Troponin (05/09/2022-05/11/2022) Chest pain 06/06/2022, 08/28/2022 CHF (congestive heart failure) ([facility]) Chronic systolic heart failure ([facility]) Coronary atherosclerosis ([facility]) Diabetes mellitus ([facility]) History of being hospitalized 09/04/2023 Bradycardia, URI, Metabolic Acidosis, Dehydration History of being hospitalized 05/28/2024 Hypertensive Emergency, CVA, CAD HLD (hyperlipidemia) ([facility]) Past Surgical History: Procedure Laterality Date ADENOIDECTOMY ANGIOGRAM 04/21/2022 PCI,RCA,PDA APPENDECTOMY 1963 CARDIAC CATHETERIZATION Right 03/07/2022 CARDIAC PACEMAKER PLACEMENT 09/07/2023 HYSTERECTOMY 1997 Visit Vitals BP (!) 208/86 Pulse 61 [...] concern is the indentation at top of fold.No erythema or skin changes Musculoskeletal: Right lower le+ Edema present. Left lower le+ Edema present. Skin: General: Skin is warm and dry. Neurological: General: No focal deficit present. Mental Status: She is alert and oriented to person, place, and time. Psychiatric: Mood and Affect: Mood normal. Behavior: Behavior normal. Assessment/Plan Diagnoses and all orders for this visit: Uncontrolled hypertension ([facility]) - Basic metabolic panel; Future -BP remains [...] also visualized. Metanephrines and cortisol levels were WNLon 06/11/2022. Patient's thyroid function was WNL on [...] possible for Hiatal Hernia. Diabetic peripheral neuropathy ([facility]) HgbA1c from 09/05/2024 was 7.6. Continue current medications as prescribed. Recheck HgbA1c in three months. Type 2 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 gangrene, with long-term current use of insulin ([facility]) - Basic metabolic panel; Future Continue current medications as prescribed. Continue baby ASA daily. Chronic systolic heart failure ([facility]/HCC) - Basic metabolic panel; Future - B-type [...] for Appointment As Scheduled. documented in this encounterCooper County Memorial [id number] History of Present illness Narrative* Rodrick Butler MD - 09/05/2024 1:00 PM EST Images from the original note [...] states she is having difficulty sleeping her sugar boiler advised her that he does not think sheshould take a sleeping medication but advised her to discuss talking to PCP about maybe trying an anti-anxiety medication to help with her sleep. Diabetes Hypertension This is a chronic problem. The current episode started more than 1 year ago. The problem is unchanged. There are no associated agents to hypertension. Risk factors for coronary artery disease includediabetes mellitus. Med Refill Current Outpatient Medications on [...] mouth in the morning and 1 tablet (0.1mg) before bedtime. cyproheptadine (Periactin) 4 MG tablet [...] History: Diagnosis Date CAD (coronary artery disease) ([facility]) CAD (coronary artery disease) ([facility]) Elevated Troponin (05/09/2022-05/11/2022) Chest pain 06/06/2022, 08/28/2022 CHF (congestive heart failure) ([facility]) Chronic systolic heart failure ([facility]) Coronary atherosclerosis ([facility]) Diabetes mellitus ([facility]) History of being hospitalized 09/04/2023 Bradycardia, URI, Metabolic Acidosis, Dehydration History of being hospitalized 05/28/2024 Hypertensive Emergency, CVA, CAD HLD (hyperlipidemia) ([facility]) Past Surgical History: Procedure Laterality Date ADENOIDECTOMY [...] diabetic peripheral angiopathy without gangrene, unspecified whether assisted insulin use (CMS/HCC) - POCT Glycated hemoglobin, total - Improve diet, no med change today Benign essential hypertension (CMS/HCC) - amLODIPine (Norvasc) 2.5 MG tablet; Take 1 tablet (2.5 mg) by mouth Daily Primary insomnia - traZODone (Desyrel) 50 MG tablet; Take 1 tablet (50 mg) by mouth as needed at bedtime for sleep Follow up in about 6 weeks (around 10/17/2024) for F/U med changes. documented in this encounterCooper County Memorial [id number] Telephone encounter Note* Telephone Encounter - LIZZ Venegas - 08/13/2024 8:43 AM EST Acknowledged [facility] [id number] Miscellaneous Notes* Telephone Encounter - LIZZ Venegas - 08/13/2024 8:43 AM EST Acknowledged * Telephone Encounter - KATELYNN WANG - 08/12/2024 11:56 AM EST Pt Notified and is feeling better. * Telephone Encounter - LIZZ Venegas - 08/12/2024 10:35 AM EST Please reassure pt that while 294 is likely higher than what she is used to seeing, it is not dangerous. She can take an extra 2 units of her Lantus today. Make sure she has taken the Janumet dosage.Have her continue to drink plenty of water. Encourage protein rich foods today, limit simple sugarsand carbs. If her glucose goes above 400 she should call the continuous washer operator provider over the weekend or go to the ER. * Telephone Encounter - Gianna García - 08/12/2024 9:59 AM EST Pt states that her blood sugar is high. Its to 294 as of now. She states its been going up all morning. She's given herself her insulin as well as drank water. She like to know what else she could do. documented in this encounterCooper County Memorial [id number] Telephone encounter Note* Telephone Encounter - KATELYNN WANG - 08/12/2024 11:56 AM EST Pt Notified and is feeling better. [facility] [id number] Telephone encounter Note* Telephone Encounter - LIZZ Venegas - 08/12/2024 10:35 AM EST Please reassure pt that while 294 is likely higher than what she is used to seeing, it is not dangerous. She can take an extra 2 units of her Lantus today. Make sure she has taken the Janumet dosage.Have her continue to drink plenty of water. Encourage protein rich foods today, limit simple sugarsand carbs. If her glucose goes above 400 she should call the continuous washer operator provider over the weekend or go to the ER. [facility] [id number] Telephone encounter Note* Telephone Encounter - Gianna García - 08/12/2024 9:59 AM EST Pt states that her blood sugar is high. Its to 294 as of now. She states its been going up all morning. She's given herself her insulin as well as drank water. She like to know what else she could do. [facility] [id number] NoteUT Cardiology - [facility] Subjective Tere Hartmann is a 84 y.o. year old female patient being seen for Palpitations (Follow up Holter monitor.), Hypertension (Only taking clonidine in the evenings, for SPB > 170), and Bradycardia (S/p PPM, which was interrogated 3 weeks ago in the office. ) Patient Active Problem List Diagnosis Coronary artery disease involving ekuk coronary artery of ekuk heart Chronic systolic heart failure (CMS/HCC) Mixed [...] with diabetic peripheral angiopathy without gangrene ([facility]/HCC) Type 2 diabetes mellitus without complications (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/HCC) S/P placement of cardiac pacemaker HPI Is [...] Abnormal ECG Arrhythmia CHF (congestive heart failure) ([facility]/HCC) Coronary artery disease Diabetes mellitus (CMS/HCC) Hyperlipidemia [...] Status Postmenopausal Smoking Status (more content not included)...[facility] Chief Complaint: Patient [...] mid LAD has 100% chronic total occlusion (TAR MAN). The ramus coronary artery has a proximal 99% stenosis that was treated successfully with PCI with a Synergy 2.5 x 16 mm drug-eluting stent. The circumflex is patent. The RCA has proximal and mid diffuse 70% stenosis, and the right PDA has 80% stenosis. The RCA (more content not included)...[facility]11-04-2024 History of Present illness Narrative* Rodrick Butler MD - 07/04/2024 11:45 AM EST Images from the original note were [...] hypertension. Risk factors for coronary artery disease includediabetes mellitus. Current Outpatient Medications on File Prior [...] mouth in the morning and 1 tablet (0.1mg) before bedtime. cyproheptadine (Periactin) 4 MG tablet [...] History: Diagnosis Date CAD (coronary artery disease) (CMS/HCC) CAD (coronary artery disease) (CMS/HCC) Elevated Troponin (05/09/2022-05/11/2022) Chest pain 06/06/2022, 08/28/2022 [...] 09/03/2024) for Routine F/U. documented in this encounterCooper County Memorial [id number] [facility] Chief Complaint: Patient [...] mid LAD has 100% chronic total occlusion (TAR MAN). The ramus coronary artery has a proximal [...] x 16 mm drug-eluting (more content not included)...[facility]10-09-2024 History of Present illness Narrative* LIZZ Venegas - 06/08/2024 11:30 AM EDT Images from the original note were not included. Subjective Patient ID: Tere Hartmann is a 84 y.o. female who presents for hypertension. Tere is present today for follow up hypertension. She recently saw Dr. Butler on 06/01/24 for a hospital follow up and he started her on Clonidine PRN of systolic is greater than 170 and changed herLosartan to BID. She also had a follow up with her sugar boiler on 06/02/24 and they changed her Clonidine to BID and stopped her Entresto and wanted her to follow up in 2 - 4 weeks with a BP log. Shedid not bring the log with her but [...] solution Administer 1 drop into both eyes inthe morning and 1 drop before bedtime. glucose [...] History: Diagnosis Date CAD (coronary artery disease) ([facility]) CAD (coronary artery disease) ([facility]) Elevated Troponin (05/09/2022-05/11/2022) Chest pain 06/06/2022, 08/28/2022 CHF (congestive heart failure) ([facility]) Chronic systolic heart failure ([facility]) Coronary atherosclerosis ([facility]) Diabetes mellitus ([facility]) History of being hospitalized 09/04/2023 Bradycardia, URI, Metabolic Acidosis, Dehydration History of being hospitalized 05/28/2024 Hypertensive Emergency, CVA, CAD HLD (hyperlipidemia) ([facility]) Past Surgical History: Procedure Laterality Date ADENOIDECTOMY ANGIOGRAM 04/21/2022 PCI,RCA,PDA APPENDECTOMY 1963 CARDIAC CATHETERIZATION Right 03/07/2022 CARDIAC PACEMAKER PLACEMENT 09/07/2023 HYSTERECTOMY 1996 Visit Vitals BP 148/82 Pulse 60 Resp [...] immunization - Influenza, high-dose seasonal, quadrivalent, PF (CPI186) (Fluzone High Dose Quad North 0.7mL dose) Provided pt with a flu shot today, she tolerated this well. Follow up for Appointment As Scheduled. documented in this encounterCooper County Memorial HospitalQoygjasmyw00-33-1314 Telephone encounter Note* Telephone Encounter - LIZZ Venegas - 06/07/2024 11:15 AM EDT Coreg sent to [facility]. [facility] [id number] Miscellaneous Notes* Telephone Encounter - LIZZ Venegas - 06/07/2024 11:15 AM EDT Coreg sent to [facility]. documented in this encounterCooper County Memorial [id number] NoteNYHC II -currently she remains euvolemic and without [...] electrolytes- please maintain K+>4 and Mg > 2Un[facility] 06-[facility]-2024 NoteLipid abnormalities are stable continue LipitorUnBellevue Hospital10-03-2024 NoteHypertension is fluctuating after review of her blood [...] adjustments and to call office for any concernsUnBellevue Hospital10-03-2024 NotePt is here for a follow up after being in [facility]. Pt denies chest pain, sob, and palpatations. She says she is not dizzy but she can feel something is not right. Pt says her sugar was high at 313. Review of Systems Constitutional: Positive for chills. Neurological: Positive for light-headedness and vertigo. All other systems reviewed and are negative.[facility] 06-02-2024 NoteUTP CARDIOLOGY PROGRESS NOTE HPI: Tere Hartmann is a 84 y.o. female here for hospital F/U HPI pleasant 84-year-old female presents today with her daughter for hospital follow-up. She was recently admitted to the [facility] end of May for uncontrolled hypertension, [...] this was after eating breakfast. Discharge summary [facility] 05/30/24 05/31/24 ED report Medical Decision [...] tricuspid regurgitation. Left A (more content not included)...[facility] 06-01-2024 History of Present illness Narrative* Rodrick Butler MD - 06/01/2024 11:30 AM EDT Images from the original [...] paroxysmal nocturnal dyspnea, and syncope. She states sheis compliant all of the time with her medications. Flowsheet Row Patient Outreach from 05/31/2024 in [facility] with Inés ThursdayKRISTIN Hospital Information ED, Hospital or Half-Way Facility Discharge? Hospital Patient has been contacted within two business days of discharge Yes Have two attempts been made to contact the patient within two business days of being discharged? Yes Diagnosis Hypertensive emergency, suspected cerebrovascular accident, CAD Discharge Date 05/29/24 Discharged To: Home Setting Discharge Hospital [facility] Engagement Call Start Time 1408 Admission Date 05/28/24 Medications Discharge medications reviewed [...] solution Administer 1 drop into both eyes inthe morning and 1 drop before bedtime. glucose [...] History: Diagnosis Date CAD (coronary artery disease) (CMS/HCC) CAD (coronary artery disease) ([facility]) Elevated Troponin (05/09/2022-05/11/2022) Chest pain 06/06/2022, 08/28/2022 CHF (congestive heart failure) (CMS/HCC) Chronic systolic heart failure ([facility]/HCC) Coronary atherosclerosis ([facility]) Diabetes mellitus ([facility]) History of being hospitalized 09/04/2023 Bradycardia, URI, Metabolic Acidosis, Dehydration HLD (hyperlipidemia) ([facility]) Past Surgical History: Procedure Laterality Date ADENOIDECTOMY [...] Positive Negative - 50 Ky/mcL Final pH, 05/05/2024 5.0 5 - 9 Final Protein, 05/05/2024 Negative Negative - 2000(20) ++++ mg/dL Final Urobilinogen, UA 05/05/2024 0.2 0.2 - 12 mg/dL Final Leukocytes, UA 05/05/2024 Positive Negative - 500+++ Melinda/mcL Final Nitrite, 05/05/2024 Negative Negative - Positive Final ACINETOBACTER [...] Yellow Final Clarity, 05/05/2024 Cloudy Final Glucose, 05/05/2024 Negative Negative - 1999(110) ++++ mg/dL [...] gangrene, with long-term current use of insulin ([facility]) - POCT Glycated hemoglobin, total Benign essential hypertension (CMS/HCC) - losartan (Cozaar) 50 MG tablet; Take [...] for F/U med changes. documented in this encounterCooper County Memorial HospitalAqlrzfmyff31-12-0177 Miscellaneous Notes* Telephone Encounter - Rach Avitia - 05/30/2024 10:47 AM EDT [facility] contacted patient to schedule hospital follow up with stroke team after recent admission for concerns for stroke. Caller is asking if patient can be scheduled with Dr Hansen in [place]. Please advise and contact patient. * Telephone Encounter - Johanna Welch CMA - 05/30/2024 10:47 AM EDT Faxed a request to push over both images and reports. Currently waiting for response. * Telephone Encounter - Johanna Welch CMA - 05/30/2024 10:47 AM EDT Received faxed reports and uploaded on Media. * Telephone Encounter - Bernadette Galvan RN - 05/30/2024 10:47 AM EDT From stroke team standpoint, patient does not need to see stroke clinic. Patient should follow up with PCP for hypertensive urgency. * Telephone Encounter - Johanna Welch CMA - 05/30/2024 10:47 AM EDT Called pt to inform what was noted below. Pt voiced understanding. [facility] in [facility]Sam[facility]09-[facility] Telephone encounter Note* Telephone Encounter - Rach Avitia - 05/30/2024 10:47 AM EDT [facility] contacted patient to schedule hospital follow up with stroke team after recent admission for concerns for stroke. Caller is asking if patient can be scheduled with Dr Hansen in [place]. Please advise and contact patient. [facility]09-30-20[facility] Telephone encounter Note* Telephone Encounter - Johanna Welch CMA - 05/30/2024 10:47 AM EDT Faxed a request to push over both images and reports. Currently waiting for response. [facility]-30-[facility] Telephone encounter Note* Telephone Encounter - Johanna Welch CMA - 05/30/2024 10:47 AM EDT Received faxed reports and uploaded on Media. [facility]-30-[facility] Telephone encounter Note* Telephone Encounter - Bernadette Galvan RN - 05/30/2024 10:47 AM EDT From stroke team standpoint, patient does not need to see stroke clinic. Patient should follow up with PCP for hypertensive urgency. [facility] Telephone encounter Note* Telephone Encounter - Johanna Welch CMA - 05/30/2024 10:47 AM EDT Called pt to inform what was noted below. Pt voiced understanding. [facility]09-05-2024 History of Present illness Narrative* Leslie Dixon LPN - 05/05/2024 1:00 PM EDT Ua completed documented in this [facility]08-27-2024 Telephone encounter Note* Telephone Encounter - LIZZ Venegas - 04/26/2024 11:55 AM EDT Updated Rx sent. [facility] [id number] Miscellaneous Notes* Telephone Encounter - LIZZ Venegas - 04/26/2024 11:55 AM EDT Updated Rx sent. * Telephone Encounter - More Barcenas LPN - 04/26/2024 11:49 AM EDT Received fax from [facility] pharmacy for clarification on her Lantus Solostar directions. Called pt to see how she takes it and she states that since Dr. Butler took her off the Jardiance she is taking 25 units in the morning only. I filled out the form and faxed back to pharmacy and sent to [place] to send in new script to [facility]. Also states she never received ATB or pyridium form o/v on 04/19/24, sent that to for pt. documented in this [facility]08-27-2024 Telephone encounter Note* Telephone Encounter - More Barcenas LPN - 04/26/2024 11:49 AM EDT Received fax from [facility] pharmacy for clarification on her Lantus Solostar directions. Called pt to see how she takes it and she states that since Dr. Butler took her off the Jardiance she is taking 25 units in the morning only. I filled out the form and faxed back to pharmacy and sent to [place] to send in new script to [facility]. Also states she never received ATB or pyridium form o/v on 04/19/24, sent that to for pt. [facility] [id number] History of Present illness Narrative* LIZZ Venegas - 04/19/2024 2:30 PM EDT Images from the original note were [...] 10 days. She did finish her ATB lastnight and while she was on the ATB [...] solution Administer 1 drop into both eyes inthe morning and 1 drop before bedtime. glucose [...] pen INJECT 25 UNITS UNDER THE SKIN INTHE MORNING AND 20 UNITS IN THE EVENING [...] History: Diagnosis Date CAD (coronary artery disease) ([facility]) CAD (coronary artery disease) ([facility]) Elevated Troponin (05/09/2022-05/11/2022) Chest pain 06/06/2022, 08/28/2022 CHF (congestive heart failure) ([facility]) Chronic systolic heart failure ([facility]) Coronary atherosclerosis ([facility]) Diabetes mellitus ([facility]) History of being hospitalized 09/04/2023 Bradycardia, URI, Metabolic Acidosis, Dehydration HLD (hyperlipidemia) (CMS/HCC) Past Surgical History: Procedure [...] recurrent UTI's resolve. If not, can restart themedication and may need to try holding the [...] for Appointment As Scheduled. documented in this encounterCooper County Memorial [id number] Evaluation note* Encounter Date Diagnosis Assessment Notes Treatment Notes Treatment Clinical Notes Aug, Type 2 diabetes mellitus with hy perglycemia (ICD-10 - E11.65) ASSESSMENT: 1. Uncontrolled, a Type 2 diabetes with A1c of % 2. Blood glucose levels reviewed and show significant variability, likely over basalization at least at night. We have decreased her at bedtime insulin to 18 units. We did discuss if a.m. fasting blood sugars are under 103 of 7 days/week she should decrease again by another unit. We have maintainedher Lantus at 25 units in the a.m. If predinner blood sugar is below 100 3 days in a week she should decrease by 10% or 2 units. We will likely add prandial coverage next visit. I have requested thatzara check her blood sugars 4 times daily before meals and at bedtime to get better characterizationof her blood glucose. I feel that she will benefit from CGM due to age, dexterity for fingersticks,ease of review. This modality is necessary for titration of her basal insulin. I have ordered a full sensor system for simplicity and similarity to her glucometer. She will call office when she is inreceipt for first placement and in-service. We will have her return to clinic 2 weeks after placement of marianne for further titration of medication and consideration of alterations in treatment plan. I do have concerns for hypoglycemia unawareness secondary to high variability and provided blood glucose and no report of hypoglycemic symptoms. I do feel she is at high risk for fall secondary to hercurrent neurological status and I do not need [...] diabetes, progressive beta cell , concepts of basal/bolus/corrective insulin requirements. Basal: The goal is fasting [...] complexity reviewed e. Patient questions addressed 2. Activity/exercise: Encouraged to start any form of physical [...] or sores that do not appear to behealing. 4. Meter: Plan to check blood glucose: [...] 6. Prescriptions: None needed at this time. Aug,Vitamin D deficiency (ICD-10 - E55.9)Learning About Vitamin D material was published to portal Aug,ietary counseling and surveillance (ICD-10 - Z71.3)Learning About Healthy Weight material was published to portal Aug,Hyperlipidemia (ICD-10 - E78.5)Learning About High Cholesterol material was published to portal. Treatment per cardiology secondary to PCI intervention, CVD Aug,HTN (hypertension) (ICD-10 - I10)High Blood Pressure: Care Instructions material was published to portal. Discussed above goal for di abetes, goal less than 130/80. She will check blood pressure intermittently and report elevations to primary care Aug,Long term current use of insulin (ICD-10 - Z79.4) [employer] Other 09-11-2022 Discharge summary Author Herminia Lawler [facility] May 11, 2022 2:35pmNote Date/TimeSept2021 2:27pm[place] [address] Discharge Summary Signed Patient: Tere Hartmann MR#: [id number] : 1940 Acct:[id number] Age/Sex: 82 / F Adm Date: 2 Loc: Room: [address] [place] [address]: Herminia Lawler MD Copies to: [...] Echo with EF 40%, positive stress test forwhich cardiac cath was done and required stent in mid LAD 03/07/22. Patient was discharge on cardiac regimen andstated that she was compliant with DAPT and other meds. Then she had similar symptoms afterwards and went back there, another cardiac cath done with successful stents placement in RCA andPDA by Dr. Breen. Patient continued DAPT and stated compliance. This time, patient presented at [facility] with epigastric pain, initial troponin was negative, EKG with no acute ischemic changes. CTA chest and abdomen and pelvis done there, PE and aortic dissection were ruled out, incidentalleft adrenal mass 3.6 cm noted. Last Echo on report with EF 40%. Repeat Troponin at [place] uptrended to 600s, EKG with no acute ischemic changes again, given her recent cardiac history, raised the concern forstent thrombosis. Patient was started on IV heparin drip for presumptive NSTEMI and decision made to transfer patient over here to [place] for possible cardiac cath. In our facility, [...] and hence the mild troponin elevation that wa switnessed. Patient was continued on guideline directed therapy. Patient remained hemodynamically stable for discharge from cardiology standpoint, heparin drip was discontinued. Patient is stable fordischarge with appropriatefollow-up and instructions as indicated in [...] Sodium 137, Potassium 3.8, Chloride 107, Carbon Gicqeud21.2 L, Anion Gap 13.6, BUN 21, Creatinine [...] in 3-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 Also strict glucose follow up. Maybe endocrinology referral. ) Documented By: Herminia Lawler MD 05/11/22 14 25 Signed By: <Electronically signed by Herminia Lawler MD> 05/11/22 1435 [facility] Work Phone: 1(308) 119-162709-11-2022 Progress note Author Itz Townsend [facility] May 11, 2022 12:15pmNote Date/TimeSeptember 2021 12:12pmCraig [place]ille [id number] Cardiology Progress Note Signed Patient: Tere Hartmann MR#: [id number] : 1940 Acct:[id number] Age/Sex: 82 / F Adm Date: 2 Loc: 4 Room: [address] [place] [address] Type: ADM IN Attending Dr: Herminia Lawler [...] but her echo at this facility demonstrates normalejection fraction and because of this we believe [...] Labs: Laboratory Results - last 24 hr 09/06/2105/10/22 05/10/22 13:27 16:47 21:35 APTT PHA Creatinine [...] arteries [place]. There was no other residual anatomyneed of intervention. 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 Code(s): I25.10 - Atherosclerotic heart disease of ek[place] coronary artery without angina pectoris Status: Acute (3) Epigastric abdominal pain: Assessment/Problem Details: Noncardiac. I recommend she be discharged on Pepcid. Code(s): R10.13 - Epigastric pain Status: Acute Plan Suitable for discharge. Continue home regimen. Add Pepcid. I will make arrangements for her to follow-up in the office with me in the next 1 to 2 months. Documented By: Itz Townsend MD 1211 Signed By: <Electronically signed by MD Itz Townsend> 05/11/22 1215 [facility] Work Phone: 1(297) 102-503809-10-2022 Progress note Author Herminia Lawler [facility] May 10, 2022 11:22amNote Date/TimeSept2021 11:05amMcGraw[place] [address] Hospitalist Progress Note Signed Patient: Tere Hartmann MR#: [id number] : 1940 Acct:[id number] Age/Sex: 82 / F Adm Date: 2 Loc: Room: [address] [place] [address] Type: ADM IN Attending Dr: Herminia Lawler MD Copies to: ~ Date of Service: 05/10/2022 Subjective Subjective Narrative: Patient was seen and examined at bedside. No major events overnight. Today shedenies any chest painor epigastric pain. Denies any nausea, vomiting, diarrhea, [...] Insuln.Pen SUBCUT 05/09/23 16:59 Not Given TID.WM.HS [facility] Protocol Insulin Detemir 32 units 05/09/22 22:00 [...] with hyperglycemia -HbA1C 10.8 -Blood glucose at [place] was 499. Negative for ketones. DKA was ruled out -Continue long-acting 32 units nightly. For short acting will continue corrective sliding scale fornow #2. We will adjust as needed -We will need aggressive diabetes management Resume home medications once verified CODE STATUS: Full code DVT prophylaxis with heparin drip Discussed with patient at bedside. All questions answered Documented By: Herminia Lawler MD 05/10/22 10 59 Signed By: <Electronically signed by Herminia Lawler MD> 05/10/22 1126 [facility] Work Phone: 1(193) 406-102609-10-2022 Progress note Author Itz Townsend [facility] May 10, 2022 8:46amNote Date/TimeSept2021 8:46[place] [id number] Cardiology Progress Note Signed Patient: Tere Hartmann MR#: [id number] : 1940 Acct:[id number] Age/Sex: 82 / F Adm Date: 2 Loc: Room: [address] [place] [address] Type: ADM IN Attending Dr: Herminia Lawler MD Copies to: ~ Date of Service: 05/10/2022 Subjective Principal diagnosis: Elevated troponins, epigastric pain Interval history: Patient had an uneventful night. She states this is the best she slept in quitea while. She has hadno recurrent epigastric pain (which is the reason she wentto the emergency room). She still has some mid back pain. Troponins are trending down. They are not impressive and I am doubtful of acutecoronary syndrome. Acute or subacute stent thrombosis is highly unlikely as well. Because of this we suspect physiologicstress superimposed on otherwise stable coronary disease. I [...] % (Auto) 55.8 Lymph % (Auto) 35.8 Trego % (Auto) 6.3 Eos % (Auto) 1.5 Baso % (Auto) 0.6 Neut # (Auto) 3.4 Lymph # (Auto) 2.2 Trego # (Auto) 0.4 Eos # (Auto) 0.1 [...] MPV Neut % (Auto) Lymph % (Auto) Trego % (Auto) Eos % (Auto) Baso % (Auto) Neut # (Auto) Lymph # (Auto) Trego # (Auto) Eos # (Auto) Baso # [...] MPV Neut % (Auto) Lymph % (Auto) Trego % (Auto) Eos % (Auto) Baso % (Auto) Neut # (Auto) Lymph # (Auto) Trego # (Auto) Eos # (Auto) Baso # [...] MPV Neut % (Auto) Lymph % (Auto) Trego % (Auto) Eos % (Auto) Baso % (Auto) Neut # (Auto) Lymph # (Auto) Trego # (Auto) Eos # (Auto) Baso # [...] % (Auto) 45.7 Lymph % (Auto) 42.4 Trego % (Auto) 6.4 Eos % (Auto) 2.7 Baso % (Auto) 2.8 Neut # (Auto) 3.2 Lymph # (Auto) 3.0 Trego # (Auto) 0.4 Eos # (Auto) 0.2 [...] MPV Neut % (Auto) Lymph % (Auto) Trego % (Auto) Eos % (Auto) Baso % (Auto) Neut # (Auto) Lymph # (Auto) Trego # (Auto) Eos # (Auto) Baso # [...] of physiologic stress superimposed on otherwise stable coronarydisease. Code(s): R77.8 - Other specified abnormalities of plasma proteins Status: Acute (2) CAD (coronary artery disease): Assessment/Problem Details: Angiographic studies from [place] reviewed. She had a 99% ramus intermedius branch that was intervened upon in February. She had complex disease in the right coronary and posterior descending branch that were intervened upon April 21.. 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 My suspicion is that thephysiologic stress caused ischemia in this territory and hence the mild troponin elevation that waswitnessed. Ejection fraction was noted to be in the range of 40%. Because of this she requires guideline directed therapy. He is on metoprolol succinate which is inferior to carvedilol. I will make that change.Otherwise I believe she should continue on aspirin, Plavix, SGLT2 inhibitor therapy, and beta-blockade. CALI inhibitor's were not implemented, I believe, because of concerns regarding renal insufficiency. This will be addressed later. Code(s): I25.10 - Atherosclerotic heart disease of ek[place] coronary artery without angina pectoris Status: Acute [...] until tomorrow. Medical therapy adjusted. Physical therapy andincreased activity recommended Documented By: Itz Townsend MD 840 Signed By: <Electronically signed by MD Itz Townsend> 05/10/22845 [facility] Work Phone: [phone]) 436-700309-09-2022 Consult note Author Itz Townsend [facility] May 09, 2022 5:03pmNote Date/TimeSeptember 2021 5:03pm[place] [address] Cardiology Consult Note Signed Patient: Tere Hartmann MR#: [id number] : 1940 Acct:[id number] Age/Sex: 82 / F Adm Date: 2 Loc: Room: [address] [place] [address] Type: ADM IN Attending Dr: Herminia Lawler MD Copies to: MD Herminia Owens II, MD William Patrick McGuinn, MD~ Cardiology HPI History of Present Illness Consult Date: 05/09/22 Reason for Consult: Epigastric pain HPI: Ms. Hartmann is a 82 year old female seen for the above. She is an individual with a recent diagnosis of coronary disease. In February she told her primary carephysician she was experiencing epigastric discomfort and shortness of breath provoked with exertionand relieved with rest. It was classic anginal symptomatology. Because of this she had a stress test that was positive and then a cardiac catheterization. She was found to have subtotal occlusion of the ramus intermedius, subtotal occlusion of the right,and complete occlusion of the LAD with adequate [...] that shestates is different from anything she hasever had before. She states is different than the symptoms she had prior to her diagnosis and coronary intervention. She had no nausea vomiting diaphoresis dyspnea. Presenting EKG demonstrates no acute changes. Troponin here is 600. Outside troponins are not reviewed I suspect that they are elevated. We need a series of enzymes here for comparisonand will not use the enzymes from [place] to make decisions. Presently it appears the patient is asymptomatic. The epigastric pain she had is gone. If in fact this is anginal it has gone away. She is compliant with medical therapy and I doubt subacute stent thrombosis but it is possible that her LAD occlusion with collaterals may be insufficient and/or theremay have been some hemodynamic stress that caused transient ischemia in the distribution of the LAD and the aforementioned elevation in enzymes. Because of this I believe she does require observation It appears she is on guideline directed therapy but its not been implemented by the admitting service. Presently she is on aspirin Plavix and atorvastatin. Wejinnyve added her metoprolol succinate and Iwill make a decision tomorrow Review of Systems [...] pen (Lantus Solostar U-100 Insulin) 32 unit subcutQHS 05/09/22 [History Confirmed 05/09/22] metoprolol succinate 50 [...] x10E3/uL Lymph # (Auto) 2.2 (1.00-4.8) x10E3/uL Trego # (Auto) 0.4 (0.0-0.8) x10E3/uL Eos # [...] She is not sick enough to have stentthrombosis and she is compliant with her guideline [...] Code(s): I25.10 - Atherosclerotic heart disease of [place] coronary artery without angina pectoris (2) DM [...] follow advise. Documented By: Itz Townsend MD 2281 Signed By: <Electronically signed by MD Itz Townsend> 05/09/22 5629 [facility] Work Phone: 1(899) 942-494409-09-2022 History and physical note Author Herminia Lawler [facility] May 09, 2022 3:50pmNote Date/TimeSept2021 1:19pm[place] [address] Hospitalist H&P Signed Patient: Tere Hartmann MR#: [id number] : 1940 Acct:[id number] Age/Sex: 82 / F Adm Date: 2 Loc: Room: [address] [place] [address] Type: ADM IN Attending Dr: Herminia Lawler [...] Echo with EF 40%, positive stress test forwhich cardiac cath was done and required stent in mid LAD 03/07/22. Patient was discharge on cardiac regimen andstated that she was compliant with DAPT and other meds. Then she had similar symptoms afterwards and went back there, another cardiac cath done with successful stents placement in RCA andPDA by Dr. Breen. Patient continued DAPT and stated compliance. This time, patient presented at [facility] this morning, initial troponin was negative, EKG with no acute ischemic changes. 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 Last Echo on report with EF 40%.This morning, repeat Troponin at [facility] uptrended to 600s, EKG with no acute ischemic changes again, given her recent cardiac history, raisedthe concern forstent thrombosis/restenosis. Patient was started on IV heparin drip for presumptive NSTEMI and decision made to transfer patient over here to [place] for possible cardiac cath. During my encounter, [...] pen (Lantus Solostar U-100 Insulin) 32 unit subcutQHS 05/09/22 [History Confirmed 05/09/22] metoprolol succinate 50 [...] out by CTA -Patient was transferred from [facility] for NSTEMI for possible cardiac cath -Initial troponin at [place] was normal then repeat was in 600s. Repeat troponin in our facility remains in the 600s. Patient denies any chest pain or epigastric pain, however, she does report bloating sensation in the epigastrium -Patient was started on heparin drip ACS protocol at [place]. We will continuefor now. Further recommendations to follow by cardio -Heparin drip management per pharmacy protocol for ACS -Check serial troponin -Cardiology was consulted. We will follow-up recommendations -Continue DAPT, statin, beta-reginaldo -Check Echocardiogram -Admit to 4 P for close monitoring Uncontrolled Diabetes with hyperglycemia -HbA1C today 10.8 -Blood glucose at [place] was 499. Negative for ketones. DKA was ruled out -We will start long-acting 32 units nightly. For short acting will use corrective sliding scale fornow #2. We will adjust as needed -We will need aggressive diabetes management Resume home medications once verified CODE STATUS: Full code DVT prophylaxis with heparin drip Discussed with patient and family at bedside. All questions answered Documented By: Herminia Lawler MD 05/09/22 13 17 Signed By: <Electronically signed by Herminia Lawler MD> 05/09/22 3594 [facility] Work Phone: [phone]) 160-172908-01-2022 History general Narrative - Reported* Type Description Date Medical History DM2 Medical HistoryHTNMedical Historycervical cancer stage 1Medical Historyglaucoma Medical HistoryMIMedical Historycoronary artery disease-stents x3 urgical [id number] Xreeckgirxldpamvzv6973Zgbckfgu Historybreast biopsy-benignunsure of dateSurgical HistoryStents [id number] History See Above [employer] Other Discharge summary Author Herminia Lawler [facility] May 11, 2022 2:35pmNote Date/TimeSeptember 2021 2:27[place] [address] Discharge Summary Signed Patient: Tere Hartmann MR#: [id number] : 1940 Acct:[id number] Age/Sex: 82 / F Adm Date: 2 Loc: Room: [address] [place] [address]: Herminia Lawler MD Copies to: [...] Echo with EF 40%, positive stress test forwhich cardiac cath was done and required stent in mid LAD 03/07/22. Patient was discharge on cardiac regimen andstated that she was compliant with DAPT and other meds. Then she had similar symptoms afterwards and went back there, another cardiac cath done with successful stents placement in RCA andPDA by Dr. Breen. Patient continued DAPT and stated compliance. This time, patient presented at [facility] with epigastric pain, initial troponin was negative, EKG with no acute ischemic changes. CTA chest and abdomen and pelvis done there, PE and aortic dissection were ruled out, incidentalleft adrenal mass 3.6 cm noted. Last Echo on report with EF 40%. Repeat Troponin at [place] uptrended to 600s, EKG with no acute ischemic changes again, given her recent cardiac history, raised the concern forstent thrombosis. Patient was started on IV heparin drip for presumptive NSTEMI and decision made to transfer patient over here to [place] for possible cardiac cath. In our facility, [...] and hence the mild troponin elevation that wa switnessed. Patient was continued on guideline directed therapy. Patient remained hemodynamically stable for discharge from cardiology standpoint, heparin drip was discontinued. Patient is stable fordischarge with appropriatefollow-up and instructions as indicated in [...] Sodium 137, Potassium 3.8, Chloride 107, Carbon Lukzmii06.2 L, Anion Gap 13.6, BUN 21, Creatinine [...] in 3-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 Also strict glucose follow up. Maybe endocrinology referral. ) Documented By: Herminia Lawler MD 05/11/22 14 25 Signed By: <Electronically signed by Herminia Lawler MD> 05/11/22 1435 [facility] Work Phone: Evaluation note* Diagnosis Onset Date Resolution Status CAD (coronary artery disease) acuteDM (diabetes mellitus)acuteElevated troponinacuteEpigastric abdominal pain acuteHLD (hyperlipidemia)acuteHTN (hypertension)acute [facility] Work Phone: Evaluation noteNo assessment information available [facility] Work Phone: Evaluation note* Diagnosis TIA (transient ischemic attack)- Primary Unspecified transient cerebral ischemia Type 2 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 gangrene, with long-term current use of insulin (CMS/HCC) Benign essential hypertension (CMS/HCC) Essential hypertension, benign documented in this encounter [facility] HealthcareEvaluation note* Diagnosis Benign essential hypertension (CMS/HCC) Essential hypertension, benign Chronic systolic heart failure (CMS/HCC) Chronic systolic heart failure documented in this encounter [facility] HealthcareEvaluation note* Diagnosis Benign essential hypertension (CMS/HCC)- Primary Essential hypertension, benign Encounter for immunization documented in this encounter [facility] HealthcareEvaluation note* Diagnosis Benign essential hypertension ([facility]/HCC)- Primary Essential hypertension, benign Type 2 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 gangrene, with long-term current use of insulin ([facility]) documented in [facility] encounter [facility]* Diagnosis Acute cystitis with hematuria- Primary Dysuria Diabetic peripheral neuropathy ([facility]) Type II or unspecified type diabetes mellitus with neurological manifestations, not stated as uncontrolled Type 2 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 gangrene, with long-term current use of insulin ([facility]) documented in this encounter [facility]* Diagnosis Acute cystitis with hematuria Diabetic peripheral neuropathy ([facility]) Type II or unspecified type diabetes mellitus with neurological manifestations, not stated as uncontrolled Type 2 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 gangrene, with long-term current use of insulin (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)- Primary Benign essential hypertension ([facility]) Essential hypertension, benign Primary insomnia Persistent disorder of initiating or maintaining sleep documented in this encounter [facility]* Diagnosis Uncontrolled hypertension ([facility])- Primary Mass of left adrenal gland ([facility]) Unspecified disorder of adrenal glands Gastroesophageal reflux disease without esophagitis Esophageal reflux Diabetic peripheral neuropathy ([facility]) Type II or unspecified type diabetes mellitus with neurological manifestations, not stated as uncontrolled Type 2 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 gangrene, with long-term current use of insulin ([facility]) Chronic systolic heart failure ([facility]) Chronic systolic heart failure Primary insomnia Persistent disorder of initiating or maintaining sleep Bilateral leg edema Edema Renal artery stenosis ([facility]) Atherosclerosis of renal artery documented in this encounter [facility]* Diagnosis Type 2 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 gangrene, with long-term current use of insulin ([facility]) Gastroesophageal reflux disease without esophagitis Esophageal reflux Diabetic peripheral neuropathy ([facility]) Type II or unspecified type diabetes mellitus with neurological manifestations, not stated as uncontrolled Type 2 diabetes mellitus with diabetic chronic kidney disease (CMS/HCC) Chronic kidney disease, stage 3a (HCC) (CMS/HCC) documented in this encounter [facility]* Diagnosis Benign essential hypertension (CMS/HCC)- Primary Essential hypertension, benign Chronic systolic heart failure (CMS/HCC) Chronic systolic heart failure Type 2 diabetes mellitus with stage 3b chronic kidney disease, with long-term current use of insulin (HCC) (CMS/HCC) documented in this encounter [facility]Evaluation note* Diagnosis Chronic systolic heart failure (CMS/HCC)- Primary Chronic systolic heart failure Type 2 diabetes mellitus with other specified complication, with long-term current use of insulin (CMS/HCC) documented in this encounter [facility]* Diagnosis Type 2 diabetes mellitus with other specified complication, with long-term current use of insulin- Primary Benign essential hypertension (CMS/HCC) Essential hypertension, benign Chronic systolic heart failure (CMS/HCC) Chronic systolic heart failure Renal artery stenosis ([facility]/HCC) Atherosclerosis of renal artery Diabetic nephropathy associated with type 2 diabetes mellitus (HCC) ([facility]) documented in this encounter [facility]* Diagnosis Acute bilateral low back pain without sciatica- Primary Intermittent diarrhea Acute cystitis with hematuria documented in this encounter [facility]* Diagnosis Bilateral leg edema Edema documented in this encounter [facility]* Diagnosis Routine general medical examination at health care facility- Primary Routine general medical examination at a health care facility ACP (advance care planning) Other specified counseling Flu vaccine need Type 2 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 gangrene, 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 (HCC) Atrioventricular block, complete (HCC) Atrioventricular block, complete Diabetic peripheral neuropathy (HCC) Type II or unspecified type diabetes mellitus with neurological manifestations, not stated as uncontrolled Restless legs syndrome Restless legs syndrome (RLS) Atherosclerosis of [place] coronary artery of [place] heart without angina pectoris Chronic systolic heart failure (HCC) Chronic systolic heart failure S/P placement of cardiac pacemaker Renal artery stenosis Atherosclerosis of renal artery Gastroesophageal reflux disease without esophagitis Esophageal reflux Pure hypertriglyceridemia CALI-inhibitor cough documented in this encounter [facility]* Diagnosis Acute non-recurrent sinusitis, unspecified location- Primary documented in this encounter [facility]* Diagnosis Acute non-recurrent sinusitis, unspecified location- Primary Atherosclerosis of [place] coronary artery of [place] heart without angina pectoris Mixed hyperlipidemia Benign essential hypertension Essential hypertension, benign documented in this encounter [facility]* Diagnosis Upper respiratory tract infection, unspecified type- Primary documented in this encounter [facility] HealthcareHospital Discharge instructions Additional Instructions - Follow-up with your primary care physician for diabetes control - Incidental finding of left adrenal mass 3.6 cm. Follow up as outpatient - Referral to endocrinology clinic for better diabetes control and labile blood glucose management - Continue to follow-up with your private cardiology -Return to ER in case of worsening in symptoms or developing new alarming symptomsFirKet[facility] Work Phone: InstructionsNot on filedocumented in this encounter [facility] SystemReason for referral (narrative)No reason for referral information availableGal[facility] Work Phone: Reason for visit NarrativeSelf Referral, [facility] Visit Codes, TKM 2 [employer] Other Summary Purpose Family History Relationship Condition Age at Onset Recorded Date/T akshat father Heart disease Unknown Family history of mental disorderUnknownMyocardial infarctionUnknownDeceased UnknownHypertensionUnknownfamily memberDeceasedUnknownmotherDeceasedUnknownHeart diseaseUnknownDiabetes mellitusUnknownmotherDiabetes mellitusUnknown Advance Directives Advance Directive Response Recorded Date/ Time Advance Directives No May 8:35am Chief Complaint and Reason for Visit Chief Complaint non stemi Reason for Visit CAD (coronary artery disease) DM (diabetes mellitus) Elevated troponin Epigastric abdominal pain HLD (hyperlipidemia) HTN (hypertension) Chief Complaint Admit Date Abdominal Pain June 06, 2025 3: 20pm Reason for Referral SpecialtyDiagnoses / ProceduresReferred By ContactReferred To Contact Diagnoses Acute cystitis with hematuria Beverly Paredes PA [address] [facility] [address] [place] [address] Referral IDStatusReasonStart DateExpiration DateVisits RequestedVisits [id number] Review/ Additional Source Comments INFORMATION SOURCE (unrecogn ized section and content) DATE CREATED AUTHOR 04/28/2022 [facility] DATE CREATED AUTHOR AUTHOR'S ORGANIZ ATION 05/27/2022 [facility] DATE CREATED AUTHOR AUTHOR'S ORGANIZ ATION 12/05/2022 [facility] DATE CREATED AUTHOR AUTHOR'S ORGANIZ ATION 05/14/2023 [facility] DATE CREATED AUTHOR AUTHOR'S ORGANIZ ATION 10/14/2024 [facility] DATE CREATED AUTHOR AUTHOR'S ORGANIZ ATION 05/24/2025 [facility] DATE CREATED AUTHOR AUTHOR'S ORGANIZ ATION 06/11/2025 [facility] DATE CREATED AUTHOR AUTHOR'S ORGANIZ ATION 06/24/2025 [facility] EPIC Care Teams (unrecognized sec tion and content) Team Status: Inactive Member Role Status Dates Rodrick Butler II MD Primary Care Provider Active Herminia Lawler MDAdmit Provider, Attending ProviderActiveJessica Rojas RNOther ProviderActiveW Carrillo Gilbert , Other ProviderActiveBo Boothe MDOther ProviderActiveItz Townsend MDOther ProviderActiveAzra Cedillo MDOther ProviderActiveJesse Sahu MDOther Provider ActiveDonbritton Magaña APRNOther ProviderActiveJackie Curtis MDOther ProviderActiveMoisabela Obrien MDOther ProviderActiveBrenna Veras MD Other ProviderActive Team Status: Active Member Role Status Dates Rodrick Butler II MD Primary Care Provider Active Team MemberRelationshipSpecialtyStart DateEnd Date Rodrick Butler MD [address] [facility] [address] [place] [address] PCP - Human08/31/22 Rodrick Butler MD [address] [address] [place] [address] PCP - GeneralInternal Medicine01/14/23Team MemberRelationshipSpecialtyStart Date End Date Rodrick Butler MD [address] [place] [address] PCP - Humana1 Rodrick Butler MD [address] [place] [address] PCP - GeneralInternal Medicine01/14/23Team MemberRelationshipSpecialtyStart Date End Date Rodrick Butler MD [address] [place] [address] PCP - Humana1 Rodrick Butler MD [address] [place] [address] PCP - GeneralInternal Medicine01/14/23Team MemberRelationshipSpecialtyStart Date End Date Rodrick Butler MD [address] [place] [address] PCP - Humana1 Rodrick Butler MD [address] [place] [address] [facility] - [facility]01/14/23Team MemberRelationshipSpecialtyStart Date End Date Rodrick Butler MD [address] [place] [address] PCP - Humana1 Rodrick Butler MD [address] [place] [address] PCP - GeneralB[facility] Medicine01/14/23Team MemberRelationshipSpecialtyStart Date End Date Rodrick Butler MD [address] [place] [address] PCP - Humana1 Rodrick Butler MD [address] [place] [address] PCP - GeneralInternal Medicine01/14/23Team MemberRelationshipSpecialtyStart Date End Date Rodrick Butler MD [address] [place] [address] PCP - Humana1 Rodrick Butler MD [address] [place] [address] PCP - GeneralInternal [facility]01/14/23Team MemberRelationshipSpecialtyStart Date End Date Rodrick Butler MD [address] [place] [address] PCP - Humana1 Rodrick Butler MD [address] [place] [address] PCP - GeneralB[facility]nal [facility]01/14/23Team MemberRelationshipSpecialtyStart Date End Date Rodrick Butler MD [address] [place] [address] PCP - Humana1 Rodrick Butler MD [address] [place] [address] PCP - GeneralB[facility]nal [facility]01/14/23Team MemberRelationshipSpecialtyStart Date End Date Rodrick Butler MD [address] [place] [address] PCP - Humana1/23 Rodrick Butler MD [address] [place] [address] PCP - GeneralInternal [facility]01/14/23Team MemberRelationshipSpecialtyStart Date End Date Rodrick Butler MD [address] [place] [address] PCP - [place] [address] Rodrick Butler MD [address] [place] [address] [facility] - [facility]01/14/23Team MemberRelationshipSpecialtyStart Date End Date Rodrick Butler MD [address] [place] [address] PCP - [place] [address] Rodrick Butler MD [address] [place] [address] PCP - GeneralB[facility]nal [facility]01/14/23Te MemberRelationshipSpecialtyStart Date End Date Rodrick Butler MD [address] [place] [address] PCP - [place] [address] Rodrick Butler MD [address] [place] [address] [facility] - [facility]01/14/23Team MemberRelationshipSpecialtyStart Date End Date Rodrick Butler MD [address] [place] [address] PCP - [place] [address] Rodrick Butler MD [address] [place] [address] PCP - GeneralInternal Medicine01/14/23 Jessica Rubi, [place] Clinical AdvocateFort [facility] Hospitally Medicine10/07/24Team MemberRelationshipSpecialtyStart Date End Date Rodrick Butler MD [address] [place] [address] PCP - Humana1 Rodrick Butler MD [address] [place] [address] PCP - GeneralInternal Medicine01/14/23 Jessica Rubi RN Clinical [facility]Edward [facility] Medicine10/07/24Team MemberRelationshipSpecialtyStart Date End Date Rodrick Butler MD [address] [place] [address] PCP - GeneralInternal Medicine05/30/24Team MemberRelationshipSpecialtyStart Date End Date Rodrick Butler MD [address] [place] [address] PCP - Humana1 Rodrick Butler MD [address] [place] [address] PCP - GeneralInternal Medicine01/14/23 Jessica Rubi, [place] Clinical AdvocateFort [facility]ally Medicine10/07/24Team MemberRelationshipSpecialtyStart Date End Date Rodrick Butler MD [address] [place] [address] PCP - [place] [address] Rodrick Butler MD [address] [place] [address] PCP - GeneralInternal Medicine01/14/23 Jessica Rubi, [place] Clinical [facility]ocateFapam [facility] Medicine10/07/24Team MemberRelationshipSpecialtyStart Date End Date Rodrick Butler MD [address] [place] [address] PCP - [place] [address] Rodrick Butler MD [address] [place] [address] PCP - GeneralInternal Medicine01/14/23 Rodrick Butler MD [address] [place] [address] PCP - [place] CLAROS08/31/24 Jessica Rubi, [place] Clinical [facility] Medicine10/07/24Team MemberRelationshipSpecialtyStart Date End Date Rodrick Butler MD [address] [place] [address] PCP - GeneralB[facility]nal Medicine01/14/23 Rodrick Butler MD [address] [place] [address] PCP - [place] CLAROS08/31/24 Jessica Rubi, [place] Clinical [facility]am [facility] Medicine10/07/24Team MemberRelationshipSpecialtyStart Date End Date Rodrick Butler MD [address] [place] [address] PCP - GeneralInternal Medicine01/14/23 Rodrick Butler MD [address] [place] [address] PCP - [place]08/31/24 Jessica Rubi RN Clinical [facility]10/07/24Team MemberRelationshipSpecialtyStart Date End Date Rodrick Butler MD [address] [place] [address] PCP - GeneralB[facility]nal Medicine01/14/23 Rodrick Butler MD [address] [place] [address] PCP - [place]08/31/24 Ivelisse Baptiste LPN 11/18/24Team MemberRelationshipSpecialtyStart DateEnd Date Rodrick Butler MD [address] [place] [address] [facility] - [facility]01/14/23 Rodrick Butler MD [address] [place] [address] PCP - [place]08/31/24 Ivelisse Baptiste LPN 11/18/24Team MemberRelationshipSpecialtyStart DateEnd Date Rodrick Butler MD [address] [place] [address] PCP - GeneralInternal Medicine01/14/23 Rodrick Butler MD [address] [place] [address] PCP - [place]08/31/24 Ivelisse Baptiste LPN 11/18/24Team MemberRelationshipSpecialtyStart DateEnd Date Rodrick Butler MD [address] [place] [address] PCP - GeneralInternal Medicine01/14/23 Rodrick Butler MD [address] [place] [address] PCP - [place]08/31/24 Ivelisse Baptiste LPN 11/18/24Team MemberRelationshipSpecialtyStart DateEnd Date Rodrick Butler MD [address] [place] [address] PCP - GeneralInternal Medicine01/14/23 Rodrick Butler MD [address] [place] [address] PCP - [place]08/31/24 Ivelisse Baptiste LPN [address] [place] [address] 11/18/24Team MemberRelationshipSpecialtyStart DateEnd Date Rodrick Butler MD [address] [place] [address] PCP - GeneralInternal Medicine01/14/23 Rodrick Butler MD [address] [place] [address] PCP - [place]08/31/24 Ivelisse Baptiste LPN [address] [place] [address] 11/18/24Team MemberRelationshipSpecialtyStart DateEnd Date Rodrick Butler MD [address] [place] [address] PCP - GeneralInternal Medicine01/14/23 Rodrick Butler MD [address] [place] [address] PCP - [place]08/31/24 Ivelisse Baptiste LPN [address] [place] [address] 11/18/24Team MemberRelationshipSpecialtyStart DateEnd Date Rodrick Butler MD [address] [place] [address] PCP - GeneralInternal Medicine01/14/23 Rodrick Butler MD [address] [place] [address] PCP - [place]08/31/24 Ivelisse Baptiste LPN [address] [place] [address] 11/18/24Team MemberRelationshipSpecialtyStart DateEnd Date Rodrick Butler MD [address] [place] [address] PCP - GeneralInternal Medicine01/14/23 Rodrick Butler MD [address] [place] [address] PCP - [place]08/31/24 Ivelisse Baptiste LPN [address] [place] [address] 11/18/24 Team Status: Inactive Member Role Status Dates John Shin , Attending Provider Active Sta rt: June 06, 2025 End: June 06, 2025Team MemberRelationshipSpecialtyStart DateEnd Date Rodrick Butler MD [address] [place] [address] PCP - GeneralInternal Medicine01/14/23 Rodrick Butler MD [address] [place] [address] PCP - [place] CLAROS08/31/24 Ivelisse Baptiste LPN [address] [place] [address] 11/18/24Team MemberRelationshipSpecialtyStart DateEnd Date Rodrick Butler MD [address] [place] [address] PCP - GeneralInternal Medicine01/14/23 Rodrick Butler MD [address] [place] [address] PCP - [place]08/31/24 Ivelisse Baptiste LPN [address] [place] [address] 11/18/24Team MemberRelationshipSpecialtyStart DateEnd Date Rodrick Butler MD [address] [place] [address] PCP - GeneralInternal Medicine01/14/23 Rodrick Butler MD [address] [place] [address] PCP - [place]08/31/24 Ivelisse Baptiste LPN [address] [facility] [address] [place] [address] 11/18/24Team MemberRelationshipSpecialtyStart DateEnd Date Rodrick Butler MD [address] [facility] [address] [place] [address] PCP - GeneralInternal Medicine01/14/23 Rodrick Butler MD [address] [facility] [address] [place] [address] PCP - [place]08/31/24 Ivelisse Baptitse LPN [address] [facility] [address] [place] [address] 11/18/24 Goals (unrecognized section and content) Goals may be documented in a n alternate section Reason for Visit (unrecogniz ed section and content) ReasonCommentsHypertensionMedication added clonidine losartanReasonCommentsMed RefillLantus solostarReasonCommentsUTIPt finished cipro states she has dysuria and would like ua checked--sent for cultureReasonCommentsDiabetesHypertensionMed RefillReasonCommentsMed RefillFurosemide, Potassium, LantusReasonComments DiabetesAbdominal PainReasonCommentsDiabetesCongestive Heart FailureReason CommentsDiabetesMed RefillCoreg 12.5mg DM clydeReasonCommentsstomach issues ReasonCommentsMed RefillReasonCommentsMedicare Annual Wellness Visit Subsequent ReasonCommentsDiabetesCoughFollow-upTBH ER 06/06/25 dx: diarrhea, dehydration discharged home no med changes madeReasonCommentsSinusitisDiabetesHypertension FOR RECORDS PERTAINING TO PATIENTS WHO ARE [...] BE BASED ON THE PRIMARY CLINICAL RECORDS. [facility]. provides no warranty or guarantee of the accuracy or completeness of information in this document.
[2025-07-03 15:38] LABS: Hematocrit 31.9 % (36.0-48.0); Hemoglobin 10.7 g/dL (12.0-16.0); Immature Granulocytes Abs Auto 0.01 10^3/uL (0.00-0.03); Immature Granulocytes Pct Auto 0.1 % (0.0-0.5); Lymphocytes Absolute Auto 2.6 10^3/uL (1.2-3.8); Mean Corpuscular HGB Conc 33.5 g/dL (29.9-35.2); Mean Corpuscular Hemoglobin 28.5 pg (26.7-34.0); Mean Corpuscular Volume 85.1 fL (81.0-99.0); Platelet Count 227 10^3/uL (150-450); Red Blood Count 3.75 10^6/uL (4.20-5.40); White Blood Count 7.3 10^3/uL (4.0-11.0)
[2025-07-03 15:49] LABS: SARS-CoV-2 Ag NEGATIVE (NEGATIVE)
[2025-07-03 15:57] LABS: Alanine Aminotransferase 19 U/L (14-59); Albumin Globulin Ratio 1.1; Albumin Level 3.6 g/dL (3.4-5.0); Alkaline Phosphatase 67 U/L (46-116); Anion Gap 10.9; Aspartate Amino Transferase 18 U/L (15-37); Blood Urea Nitrogen 16.0 mg/dL (7.0-18.0); Calcium 9.6 mg/dL (8.5-10.1); Carbon Dioxide 27.0 mmol/L (21.0-32.0); Chloride 99 mmol/L (98-107); Estimated GFR (African America >60 (>=60 mL/min/1.73m^2); Estimated GFR (Non-African Ame >60 (>=60 mL/min/1.73m^2); Globulin 3.4 g/dL; Glucose 113 mg/dL (74-106); Potassium 4.9 mmol/L (3.5-5.1); Sodium 132 mmol/L (136-145); TSH W/ REFLEX FT4 1.120 uIU/mL (0.358-3.740); Total Protein 7.0 g/dL (6.4-8.2)
== END 2025-07-03 14:37 | disposition home or self-care (01) ==
LOC: LAB 14:58
PROVIDERS: PCP Internal Medicine; Visit Provider Internal Medicine
DX: J06.9 Acute upper respiratory infection, unspecified (principal); R53.1 Weakness
CPT/HCPCS: 36415; 80053; 84443; 85025; 87811